=== PATIENT | female | born 1990 | race Caucasian/White ===

== ENCOUNTER 2020-12-31 19:23 | Emergency (ER) | payer MEDICAID, SELFPAY ==
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
[2020-12-31 19:33] VITALS: BP 110/63; PULSE 92; RESP 16; TEMP 37; O2SAT 99
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
== END 2020-12-31 20:20 | disposition home or self-care (01) ==
PROVIDERS: Emergency Provider Nurse Practitioner
DX: S93.402A Sprain of unspecified ligament of left ankle, initial encounter (principal); S96.912A Strain of unspecified muscle and tendon at ankle and foot level, left foot, initial encounter; V86.95XA Unspecified occupant of 3- or 4- wheeled all-terrain vehicle (ATV) injured in nontraffic accident, initial encounter; Z86.14 Personal history of Methicillin resistant Staphylococcus aureus infection
CPT/HCPCS: 73610; 73630; 99203; G0463

== ENCOUNTER 2021-12-26 17:50 | Emergency (ER) | payer OTHER, SELFPAY ==
[2021-12-26 17:59] VITALS: BP 126/61; PULSE 116; RESP 16; TEMP 36.6; O2SAT 97
--- NOTE | 2021-12-26 18:07 | ED.GENADULT ---
HPI - General Adult General Chief complaint: Unspecified Stated complaint: siunus infection Time Seen by Provider: 12/26/21 17:51 History of Present Illness HPI narrative: 31-year-old female history of folliculitis and MRSA infection presents the emergency room complaining of nasal pain. Patient states that she has been experiencing pus like drainage from her left nare for 3 weeks. States that she feels a lump in her nostril. Denies fevers Related Data Allergies Allergy/AdvReac Type Severity Reaction Status Date / Time azithromycin AdvReac Nausea Verified 12/26/21 18:02 Review of Systems Review of Systems: CONSTITUTIONAL: Denies fever, chills, or sweats. EYES: Denies visual changes, redness, or discharge. ENT: Denies rhinorrhea, congestion, sore throat, or otalgia. CARDIOVASCULAR: Denies chest pain, palpitations, or edema. RESPIRATORY: Denies cough or dyspnea. GASTROINTESTINAL: Denies abdominal pain, nausea, vomiting, or diarrhea. GENITOURINARY: Denies dysuria or hematuria. SKIN: Denies rash or itching. MUSCULOSKELETAL: Denies back pain, joint pain, or myalgia. NEUROLOGIC: Denies headache, numbness, dizziness, or weakness. PSYCHIATRIC: Denies anxiety or depression. Exam Narrative: GENERAL: Well-appearing, well-nourished, no physical limitations, and in no acute distress. HEAD: Normocephalic, atraumatic. EYES: Conjunctivae normal, PERRLA and EOMI. ENT: Pustule with circumferential erythema to the lateral wall of the left nare CHEST: Clear to auscultation. No respiratory distress. No wheezes rales or rhonchi. No tenderness. HEART: Regular rate and rhythm. No murmur heard. Normal peripheral pulses. EXTREMITIES: Normal range of motion. No edema. No clubbing or cyanosis SKIN: Warm, dry, no rash. No noted wounds NEURO: No focal deficits. Alert and oriented x3. MAEW. CN's II-XI intact bilaterally, normal gait PSYCH: Cooperative. Normal mood and affect. Course Vital Signs Vital signs: Vital Signs Temperature 36.6 C 12/26/21 17:59 Pulse Rate 116 H 12/26/21 17:59 Respiratory Rate 16 12/26/21 17:59 Blood Pressure 126/61 12/26/21 17:59 Pulse Oximetry 97 0921/22 17:59 Oxygen Delivery Room Air 12/26/21 17:59 Temperature 36.6 C 12/26/21 17:59 Pulse Rate 116 H 12/26/21 17:59 Respiratory Rate 16 12/26/21 17:59 Blood Pressure 126/61 12/26/21 17:59 Pulse Oximetry 97 12/26/21 17:59 Oxygen Delivery Room Air 12/26/21 17:59 Medical Decision Making Vital Signs Vital Signs: Vital Signs Temperature 36.6 C 12/26/21 17:59 Pulse Rate 116 H 12/26/21 17:59 Respiratory Rate 16 12/26/21 17:59 Blood Pressure 126/61 12/26/21 17:59 Pulse Oximetry 97 12/26/21 17:59 Oxygen Delivery Room Air 12/26/21 17:59 Temperature 36.6 C 12/26/21 17:59 Pulse Rate 116 H 12/26/21 17:59 Respiratory Rate 16 12/26/21 17:59 Blood Pressure 126/61 12/26/21 17:59 Pulse Oximetry 97 12/26/21 17:59 Oxygen Delivery Room Air 12/26/21 17:59 Discharge Plan Discharge Clinical Impression: Folliculitis Patient Disposition: Home, Self-Care Condition: Stable Instructions: Antibiotic Form, Folliculitis (ED) Prescriptions: New mupirocin 2 % ointment 1 applic topical TID 10 Days Qty: 15 0RF mupirocin 2 % ointment 1 applic topical BID 10 Days Qty: 15 0RF No Action ketorolac 10 mg tablet 10 mg PO Q6H PRN (Reason: pain) 5 Days Qty: 20 0RF Follow-up/Referrals: UNKNOWN,DOCTOR [Primary Care Provider] - Time of Disposition: 17:59
== END 2021-12-26 18:27 | disposition home or self-care (01) ==
LOC: ANHED 18:16
PROVIDERS: Emergency Provider Nurse Practitioner Family
DX: L73.9 Follicular disorder, unspecified (principal); Z86.14 Personal history of Methicillin resistant Staphylococcus aureus infection
CPT/HCPCS: 99281

== ENCOUNTER 2022-01-23 16:57 | Emergency (ER) | payer OTHER, SELFPAY ==
--- NOTE | 2022-01-23 18:10 | PC.NURSE ---
Railroad Commissioner contacted [place] [employer] and informed them of patient's departure from the ER with an 18 gauge IV to her left AC. Per officer they will do a wellness check to have the IV removed.
--- NOTE | 2022-01-23 18:29 | PC.NURSE ---
[facility] police department returned phone call informing RN that patient does not live at the address listed in patient's medical record. Rotary Dump Operator contacted [place] police department and requested they do a well check at the [place] address registered with her insurance. Per dispatcher they will send someone over to the address.
--- NOTE | 2022-01-23 19:55 | PC.NURSE ---
[place] PD RETURNED PRIOR PHONE CALL. [employer] DISPATCHER SAID [facility] WENT TO ADDRESS GIVEN, BUT WAS UNABLE TO MAKE CONTACT WITH THIS PT.
== END 2022-01-23 18:10 | disposition left against medical advice (07) ==
DX: Z53.21 Procedure and treatment not carried out due to patient leaving prior to being seen by health care provider (principal)
CPT/HCPCS: 99199

== ENCOUNTER 2022-04-14 14:34 | Emergency (ER) | payer OTHER, SELFPAY ==
[2022-04-14 14:35] VITALS: BP 114/70; PULSE 120; RESP 18; TEMP 36.7; O2SAT 100
--- NOTE | 2022-04-14 14:41 | ECG_ITS ---
Measurements Intervals [place] Rate: 114 P: 72 NE: 112 QRS: 77 QRSD: 86 T: 37 QT: 315 QTc: 434 Interpretive Statements SINUS TACHYCARDIA WITH SHORT NE INTERVAL RSR' IN V1 OR V2, PROBABLY NORMAL VARIANT ABNORMAL ECG NO PREVIOUS ECG AVAILABLE FOR COMPARISON Electronically Signed On 04-14-2022 15:13:49 SOLE SKIVER by Law Sims D.O.
--- NOTE | 2022-04-14 16:00 | PC.NURSE ---
pt called multiple times to be placed in room and not in waiting room or restroom.
== END 2022-04-15 03:23 | disposition left against medical advice (07) ==
PROVIDERS: Emergency Provider Emergency Medicine
DX: R07.9 Chest pain, unspecified (principal)
CPT/HCPCS: 93005; 99199

== ENCOUNTER 2022-04-27 12:44 | Emergency (ER) | payer OTHER, SELFPAY ==
--- NOTE | ~2022-04-27 | XR_ITS ---
EXAMINATION: XR chest 2V DATE: 04/27/2022 13:12 INDICATION: Left upper chest pain. TECHNIQUE: Frontal and lateral views of the chest were obtained. COMPARISON: None. FINDINGS: The chest demonstrates clear lungs without pneumonia, pleural effusion, or pneumothorax. Th e heart size is normal. IMPRESSION: 1. No acute cardiopulmonary disease. Reviewed, dictated and finalized at location A. [address] [facility]
--- NOTE | 2022-04-27 12:44 | ECG_ITS ---
Measurements Intervals [place] Rate: 116 P: 73 FL: 108 QRS: 74 QRSD: 94 T: 43 QT: 296 QTc: 411 Interpretive Statements SINUS TACHYCARDIA WITH SHORT FL INTERVAL POSSIBLE LEFT ATRIAL ENLARGEMENT INCOMPLETE RIGHT BUNDLE BRANCH BLOCK DELAYED PRECORDIAL R/S TRANSITION BASELINE ARTIFACT- I, III, AVL ABNORMAL ECG COMPARED TO ECG 04/14/2022 14:46:42 NO SIGNIFICANT CHANGES Electronically Signed On 04-28-2022 14:02:45 ADVERTISING DESIGNER by Law Sims D.O.
[2022-04-27 12:53] VITALS: BP 127/95; PULSE 118; RESP 18; TEMP 36.7; O2SAT 100
[2022-04-27 13:07] LABS: Basophils Absolute Auto 0.1 K/mm3 (0.0-0.1); Eosinophils Absolute Auto 0.1 K/mm3 (0-0.3); Eosinophils Percent Auto 0.5 % (0-4.4); Hematocrit 41.8 % (37.0-47.0); Hemoglobin 13.9 g/dL (12.0-15.0); Immature Granulocyte Absolute 0.07 K/mm3 (0.00-0.031); Immature Granulocyte Percent A 0.6 % (0-0.5); Lymphocytes Absolute Auto 1.66 K/mm3 (0.9-3.2); Lymphocytes Percent Auto 14.4 % (18.3-44.2); Mean Corpuscular HGB Conc 33.3 g/dl (32-36); Mean Corpuscular Hemoglobin 31.2 pg (26-34); Mean Corpuscular Volume 93.9 fl (80-100); Mean Platelet Volume 8.9 fl (7.4-10.4); Monocytes Absolute Auto 0.7 K/mm3 (0.1-0.6); Monocytes Percent Auto 6.2 % (2.6-8.5); Neutrophils Absolute Auto 8.9 K/mm3 (1.3-6.7); Neutrophils Percent Auto 77.3 % (45.5-73.1); Platelet Count Result 395 k/mm3 (150-375); Red Blood Count 4.45 M/mm3 (4.2-5.4); Red Cell Distribution Width 12.2 % (11.5-14.5); White Blood Count 11.5 K/mm3 (4.5-10.0)
[2022-04-27 13:18] LABS: Alanine Aminotransferase 39 U/L (6-35); Albumin Level 4.6 g/dL (3.5-5.1); Alkaline Phosphatase 74 U/L (38-126); Anion Gap 5 mmol/L (8-16); Aspartate Amino Transferase 29 U/L (14-36); Bilirubin,Total 0.4 mg/dL (0.2-1.3); Blood Urea Nitrogen 10 mg/dL (7-17); Calcium 9.1 mg/dL (8.4-10.2); Carbon Dioxide 31 mmol/L (22-30); Chloride 98 mmol/L (98-107); Estimated Glomerular Filt Rate > 60; Glucose 83 mg/dL (65-110); Lipase 27 U/L (23-300); Potassium 4.5 mmol/L (3.4-5.0); Sodium 134 mmol/L (137-145)
[2022-04-27 13:29] LABS: Troponin I < 0.012 ng/mL (0.000-0.034)
[2022-04-27 13:43] LABS: Prothrombin Time 12.5 Seconds (11.1-14.7)
[2022-04-27 13:45] LABS: Partial Thromboplastin Time 22.7 SECONDS (22.3-36.8)
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
[2022-04-27] MEDS: SODIUM CHLORIDE 0.9% IV 1,000 ML 999 ML IV CONT (15:13)
[2022-04-27] MEDS: KETOROLAC 15 MG/ML VIAL (*BKC) IV PUSH (15:13)
[2022-04-27 15:14] VITALS: PULSE 112
[2022-04-27] MEDS: AMOXICILLIN 500 MG CAPSULE PO (15:22)
--- NOTE | 2022-04-27 15:30 | PC.NURSE ---
called lab to add on the d-dimer that was ordered @ [id number]
[2022-04-27 15:33] VITALS: BP 120/83; PULSE 108; RESP 18; O2SAT 99
--- NOTE | 2022-04-27 16:45 | PC.NURSE ---
Lab called about patient's D-Dimer Test results at this time, lab reports that they are running the test at this time.
[2022-04-27 17:04] LABS: D Dimer 0.48 ug/mL (<0.48)
== END 2022-04-27 17:27 ==
PROVIDERS: Emergency Medicine; Emergency Provider Emergency Medicine
DX: R07.89 Other chest pain (principal); R00.0 Tachycardia, unspecified; I45.10 Unspecified right bundle-branch block; R94.31 Abnormal electrocardiogram [ECG] [EKG]
CPT/HCPCS: 36415; 71046; 80053; 83690; 84484; 85025; 85380; 85610; 85730; 93005; 96361; 96374; 99284; A9270; J1885; J7030

== ENCOUNTER 2022-12-17 14:33 | Inpatient (IN) | payer OTHER, SELFPAY ==
--- NOTE | ~2022-12-17 | US_ITS ---
EXAMINATION: US biopsy lymph node DATE: 12/18/2022 10:06 INDICATION: Right axillary lymphadenopathy. TECHNIQUE: The procedure including the risks, benefits, and alternatives was discussed with the patie nt. Risks discussed included bleeding and infection. The patient understood the risks and agreed to p roceed. The skin overlying the right axilla was prepped and draped in usual sterile fashion. Anesthe tic was administered with 1% lidocaine subcutaneously. An 18 gauge core biopsy needle was then used to obtain 6 core biopsy specimens under continuous sonographic guidance. The entry site was cleaned a nd dressed. There were no immediate complications. FINDINGS: Ultrasound images demonstrate the needle in a 4.6 x 2.2 cm node in right axilla. IMPRESSION: 1. Ultrasound-guided core needle biopsy of an enlarged right axillary lymph node. Reviewed, dictated and finalized at location A. IMPRESSION: 1. Ultrasound-guided core needle biopsy of an enlarged right axillary lymph nod e.
--- NOTE | ~2022-12-17 | CT_ITS ---
EXAMINATION: CT chest abdomen pelvis w con DATE: 12/17/2022 20:52 INDICATION: diffuse lympadenopathy, ab pain, SOB . TECHNIQUE: Computed tomography (CT) of the chest, abdomen, and pelvis was performed with 100 mL Omnip aque-350 intravenous contrast. Automated exposure control and iterative reconstruction technique were employed. The dose-length product was 386.04 mGy-cm. COMPARISON: None FINDINGS: CHEST: Thoracic aorta: No significant dilation or calcification. Lung parenchyma and airways: Lungs and airways are clear. Thoracic inlet, axillae and chest wall: No thyroid or soft tissue mass. Severe submental lower anteri or cervical supraclavicular and subpectoral and bilateral axillary lymphadenopathy. Mediastinum: Enlarged left hilar lymph node. Heart and pericardium: Normal heart size. No pericardial effusion. Coronary artery calcifications: Absent. Pleura: No effusion or mass. Thoracic bones: No acute osseous finding in the chest. ABDOMEN/PELVIS: Liver: Enlarged. No mass. Enlarged perihepatic lymph nodes, which may extend from the retroperitoneal space. Biliary/Gallbladder: Gallbladder is contracted. No bile duct dilation. Pancreas: No mass or duct dilation. Spleen: Enlarged. No mass. Adrenals:No mass. Kidneys: No suspicious mass, obstructing stone, or hydronephrosis. GI tract: Moderate distal esophageal and gastric wall edema. No small or large bowel dilation. Normal appendix. Mesentery/Peritoneum: No ascites, mass, or free air. Retroperitoneum: Large retroperitoneal mass encasing the abdominal aorta and its major branches, like ly a conglomerate ayad mass. Pelvis: Pelvic organs are within normal limits. Small volume free pelvic fluid, within physiologic ra nge. Marked bilateral pelvic lymphadenopathy. Soft Tissues: Marked bilateral inguinal lymphadenopathy. Abdominopelvic bones: No acute osseous finding in the abdomen/pelvis. IMPRESSION: Severe lymphadenopathy involving the lower neck, bilateral axilla and subpectoral regions, left hilum , retroperitoneal space, bilateral pelvic chains, and bilateral inguinal ayad groups, concerning for lymphoma. Recommend oncology and/or other subspecialty consultation as appropriate. Marked hepatosplenomegaly. Moderate esophagitis/gastritis. Reviewed, dictated and finalized at location K. IMPRESSION: Severe lymphadenopathy involving the lower neck, bilateral axilla and subpector al regions, left hilum, retroperitoneal space, bilateral pelvic chains, and aarti ateral inguinal ayad groups, concerning for lymphoma. Recommend oncology and/o r other subspecialty consultation as appropriate. Marked hepatosplenomegaly. Moderate esophagitis/gastritis.
--- NOTE | ~2022-12-17 | CT_ITS ---
EXAMINATION: CT brain wo con DATE: 12/17/2022 20:52 INDICATION: AMS, seizures? . TECHNIQUE: Computed tomography (CT) of the head was performed without intravenous contrast. The mA wa s adjusted according to patient size. Iterative reconstruction technique was employed. The dose-lengt h product was 605.33 mGy-cm. COMPARISON: None. FINDINGS: No acute intracranial hemorrhage or extra-axial fluid collection. No hydrocephalus, mass, or herniation. No acute ischemic infarct. Unremarkable dural venous sinus attenuation. No acute osseous abnormality. The aerated spaces are clear. IMPRESSION: No acute intracranial process. Reviewed, dictated and finalized at location K.
[2022-12-17 14:54] VITALS: BP 131/92; PULSE 108; RESP 18; TEMP 36.8; O2SAT 100
--- NOTE | 2022-12-17 15:04 | ECG_ITS ---
Measurements Intervals [place] Rate: 94 P: 58 NM: 117 QRS: 47 QRSD: 86 T: 33 QT: 330 QTc: 414 Interpretive Statements SINUS RHYTHM WITH SHORT NM INTERVAL INCOMPLETE RIGHT BUNDLE BRANCH BLOCK BORDERLINE ECG COMPARED TO ECG 04/27/2022 12:54:36 SINUS RHYTHM NOW PRESENT Electronically Signed On 12-17-2022 16:06:49 CDT by Law Sims D.O.
[2022-12-17 15:33] LABS: Hematocrit 36.8 % (37.0-47.0); Hemoglobin 11.6 g/dL (12.0-15.0); Mean Corpuscular HGB Conc 31.5 g/dl (32-36); Mean Corpuscular Hemoglobin 29.1 pg (26-34); Mean Corpuscular Volume 92.5 fl (80-100); Mean Platelet Volume 9.1 fl (7.4-10.4); Platelet Count Result 252 k/mm3 (150-375); Red Blood Count 3.98 M/mm3 (4.2-5.4); Red Cell Distribution Width 13.8 % (11.5-14.5); White Blood Count 22.8 K/mm3 (4.5-10.0)
[2022-12-17 15:56] LABS: Band Neutrophils Percent 2 % (0-6); Eosinophils Absolute Manual 0.22 K/mm3 (0.02-0.5); Eosinophils Percent Manual 1 % (0-4); Hypochromasia 1+ (NORMAL); Lymphocytes Absolute Manual 15.96 K/mm3 (1.1-4.5); Monocytes Absolute Manual 0.68 K/mm3 (0.1-0.90); Monocytes Percent Manual 3 % (3-9); Neutrophils Absolute Manual 5.92 K/mm3 (1.7-7.2); Neutrophils Percent Manual 24 % (46-73); Platelet Estimate Adequate (Adequate); Schistocytes None Seen (NORMAL); Total Cells Counted 100
[2022-12-17 16:06] LABS: Alanine Aminotransferase 29 U/L (6-35); Albumin Level 3.9 g/dL (3.5-5.1); Alkaline Phosphatase 97 U/L (38-126); Anion Gap 4 mmol/L (8-16); Aspartate Amino Transferase 30 U/L (14-36); Bilirubin,Total 0.3 mg/dL (0.2-1.3); Blood Urea Nitrogen 10 mg/dL (7-17); Calcium 8.9 mg/dL (8.4-10.2); Carbon Dioxide 31 mmol/L (22-30); Chloride 103 mmol/L (98-107); Estimated CRCL calculation 87 ml/min; Estimated Glomerular Filt Rate > 60; Glucose 70 mg/dL (65-110); Lipase 85 U/L (23-300); Potassium 3.9 mmol/L (3.4-5.0); Sodium 138 mmol/L (137-145)
[2022-12-17 18:17] LABS: Appearance Urine Clear (Clear); Bilirubin Urine Negative (Negative); Blood Urine Negative (Negative); Color Urine Yellow (Yellow); Glucose Urine UA Negative (Negative); Ketones Urine Negative (Negative); Leukocyte Esterase Ur Negative LEU/UL (Negative); Nitrate Urine Negative (Negative); Protein Urine Negative (Negative); Specific Grav Ur 1.016 (1.001-1.035); Urobilinogen Urine 0.2 mg/dL (<2.0)
[2022-12-17 18:22] LABS: Add Urine Microscopic? NO
--- NOTE | 2022-12-17 19:23 | ED.RECABL ---
HPI - Recheck/Abnormal Lab/Rx General Chief Complaint: Recheck/Abnormal Lab/Rx Stated Complaint: abnormal labs Time Seen by Provider: 12/17/22 18:29 History of Present Illness HPI narrative: Patient is a 32-year-old female with a history of polysubstance use disorder presenting with lymphadenopathy. Patient states that she was told approximately 6 months ago that she might have lymphoma based on blood work. States that she was advised to be admitted to the hospital but she was too scared so she went home. Since that time she has had intermittent severe abdominal pain as well as chest pain and shortness of breath. States that she has had increasingly worse swelling of all of her lymph nodes. States that they are swollen in her neck, her armpits, her groin. States that she continues to have intermittent vomiting and poor p.o. intake. No fevers or chills. States that she no longer uses illicit drugs. Related Data Allergies Allergy/AdvReac Type Severity Reaction Status Date / Time azithromycin AdvReac Nausea Verified 04/27/22 15:12 codeine AdvReac Vomiting Verified 04/27/22 15:12 Review of Systems Review of Systems: All systems reviewed & are unremarkable except as noted in HPI and below PMFSH Past Medical History Medical History Anxiety Atypical bipolar disorder Drug-induced psychotic disorder Ectopic History of heroin use Methamphetamine abuse, episodic MRSA infection buttock and leg during last lengthy incarceration (2020) Surgical History Surgical History History of breast surgery 2018 or 2019, 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 L Side. History of salpingo-oophorectomy Social History Social History Social History: Currently living with boyfriend. Full Code. Surrogate decision maker - Isaiah Beverly (step-dad), if unavailable then Marlene Carbone (mom). Smoking packs per day: 1 Smoking cigarettes per day: 20.0 Years smoked: 11 Smoking pack-years: 11.00 Smoking status: Current every day smoker Tobacco type: cigarettes Alcohol intake: current Alcohol use details: social Substance use: former Substance use type: marijuana, heroin and amphetamines Last use: last use of heroin-September 2014 Lack of Transportation: No Lack of Food: Never True Current Housing: I Have Housing Concerned About Future Housing: No Difficulty Paying Gas/Electric Bills: No Difficulty Paying for Meds: No Currently Unemployed: No Education: High School Diploma/GED Difficulty w/ Childcare or Family Care: No Living arrangements: other Additional living arrangements comments: boyfriend Spiritual care concerns: Yes Exam Narrative: GENERAL: Nontoxic, no acute distress, diffuse bulky lymphadenopathy, pale HEAD: Normocephalic, atraumatic. EYES: PERRLA and EOMI. ENT: Mucous membranes moist. NECK: Supple. bulky lymphadenopathy anterior and posterior cervical chains CHEST: Clear to auscultation. No respiratory distress. HEART: Tachycardic, regular rhythm ABDOMEN: Soft, nontender, nondistended; + lymphadenopathy bilateral inguinal areas EXTREMITIES: Normal range of motion. No edema. SKIN: Warm, dry, no rash. NEURO: No focal deficits. Alert and oriented x3. PSYCH: Normal mood and affect. Course Vital Signs Vital signs: Vital Signs Temperature 98.2 F 12/17/22 14:54 Pulse Rate 108 H 12/17/22 14:54 Respiratory Rate 18 12/17/22 14:54 Blood Pressure 131/92 H 12/17/22 14:54 Pulse Oximetry 100 12/17/22 14:54 Oxygen Delivery Room Air 12/17/22 14:54 Temperature 98.4 F 12/18/22 14:00 Pulse Rate 89 12/18/22 14:00 Respiratory Rate 14 12/18/22 14:00 Blood Pressure 113/94 H 12/18/22 14:00 Pulse Oximetry 99 12/18/22 14:00 Oxygen Delivery Room Air 12/18/22 08:00
[2022-12-17 19:39] VITALS: BP 119/74; PULSE 98; O2SAT 99
[2022-12-17 20:26] LABS: Influenza A QL RT-PCR Negative (Negative); Influenza B QL RT-PCR Negative (Negative); SARS-CoV-2 RNA PCR Negative (Negative)
[2022-12-17] MEDS: SODIUM CHLORIDE 0.9% IV 1,000 ML 999 ML IV CONT (20:33)
[2022-12-17 21:49] VITALS: BP 113/71; PULSE 92; RESP 18; O2SAT 100
[2022-12-17 22:19] LABS: Lactate Dehydrogenase 143 U/L (120-246)
[2022-12-17] MEDS: ONDANSETRON INJ 4 MG/2 ML VIAL IV PUSH (22:20)
[2022-12-17] MEDS: MORPHINE SULFATE (*CRX) 4 MG/ML INJ IV PUSH (22:21)
[2022-12-17] MEDS: KETOROLAC 30 MG/ML VIAL (*BKC) IV PUSH (22:23)
[2022-12-17 23:00] LABS: HIV 1/2 Ab P24 Ag Result Negative (Negative)
--- NOTE | 2022-12-17 23:08 | PM.IMHP ---
H&P: HPI History of Present Illness Date/Time: 12/17/22 23:08 Chief Complaint: Abdominal Pain Narrative: 32 y/o F presents here with lymph node swelling, abdominal pain, chest pain, sob, MEDRANO, and poor PO intake with PMH of substance abuse. Patient reports abnormal workup done by a Regional 6 months ago when she presented there with nausea, vomiting, and abdominal pain. Lab work was concerning for lymphoma. Advised at that time he to continue workup inpatient. Patient was afraid, did not want to continue workup, and went home. Since then, symptoms have been increasing in frequency and swelling to lymph nodes has started/worsened. Swelling in lymph nodes is currently in neck, head, axillas, abdomen and groin bilaterally throughout. R axilla swelling the largest area. Abdominal pain, chest pain, and sob episodes x3 today for a total of 5 in the last week. Resolved without intervention. She reports 6 episodes of confusion and aggression over the last 6 months as well with the most recent episode in the last week. Also reports hx of heroin use (last use in 2015) and current/intermittent use of meth (started when she was 19). Most recent meth use was 3 weeks ago and used for pain control per patient. Does not see a therapist or take medications. 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 L Side. History of salpingo-oophorectomy Social History Social History (Updated 12/17/22 @ 23:34 by Kacey Zuluaga APRN) Social History: Currently living with boyfriend. Full Code. Surrogate decision maker - Isaiah Beverly (step-dad), if unavailable then Marlene Carbone (mom). Smoking packs per day: 1 Smoking cigarettes per day: 20.0 Years smoked: 11 Smoking pack-years: 11.00 Smoking status: Current every day smoker Tobacco type: cigarettes Alcohol intake: current Alcohol use details: social Substance use: current Substance use type: marijuana and methamphetamine Last use: last use of meth 3 weeks ago and last heroin use in 2016 (as of 12/17/22). Living arrangements: other Additional living arrangements comments: boyfriend Meds Home Medications and Allergies Home Medications Medication Instructions Recorded Confirmed Type amoxicillin 500 mg tablet 500 mg PO Q8H #20 tabs 04/27/22 Rx Allergies Allergy/AdvReac Type Severity Reaction Status Date / Time azithromycin AdvReac Nausea Verified 04/27/22 15:12 codeine AdvReac Vomiting Verified 04/27/22 15:12 Vital Signs Vital Signs - 24 hr 12/17/22 14:54 12/17/22 19:39 12/17/22 21:49 Temperature 98.2 F Pulse Rate 108 H 98 92 Respiratory Rate 18 18 Blood Pressure 131/92 H 119/74 113/71 Pulse Oximetry 100 99 100 Oxygen Delivery Room Air Exam Const: General: comfortable and no acute distress HENMT: Face/Nose/Sinus: Normal nares present Mouth: Yes moist mucous membranes Eyes: General: appearance normal, both eyes and all related structures Sclera: sclerae normal Pupils: Equal, round and reactive pupils present EOM: EOMs intact bilaterally Neck: Lymphatic: lymphadenopathy Other: diffuse lymphadenopathy. greatest at R superficial cervical chain, submental, and L tonsillar/submandibular. Chest: Other: R axilla node swelling - approx 6x4 cm. Resp: Effort & Inspection: normal respiratory effort Auscultation: clear to auscultation bilaterally Cardio: Rate: reg
[2022-12-17 23:22] VITALS: BP 109/88; PULSE 90; RESP 18; O2SAT 98
[2022-12-17 23:31] VITALS: BP 109/88; PULSE 90; RESP 18; O2SAT 98
[2022-12-18] VITALS: BP 105/73; PULSE 85; RESP 18; TEMP 36.9; O2SAT 100
--- NOTE | 2022-12-18 00:07 | ADMGEN ---
This patient, Soha Marrero, was admitted to 3 [facility] Surg Room 313-01. Patient/family oriented to hospital policies and general routines including ID bracelet, bed and alarms, visiting hours, pain management, procedures, bathroom and other care routines, personal items, smoking policy, room service/diet, and visiting hours. Information on how to activate the Rapid Response Team has been discussed. Patient/Family are encouraged to report perceived risks to care and to ask questions if they do not understand what they are told or what they should do.
[2022-12-18 05:41] VITALS: BP 97/71; PULSE 92; RESP 18; TEMP 36.4; O2SAT 99
[2022-12-18] MEDS: ONDANSETRON INJ 4 MG/2 ML VIAL IV PUSH ×3 (05:49→12:51)
[2022-12-18] MEDS: MORPHINE SULFATE (*CRX) 4 MG/ML INJ IV PUSH ×4 (05:50→13:40)
--- NOTE | 2022-12-18 07:57 | PDONCCN ---
[facility] - Date of Consult Date/Time: 12/18/22 07:57 Requesting Physician: Gabriela Mackey MD Primary Care Provider: UNKNOWN,DOCTOR - Consult Narrative Reason for consult: Generalized lymphadenopathy Narrative: Soha Marrero is a 32 year old female with history of substance abuse and bipolar disorder initially presented to the [facility] with nausea vomiting and found to have abnormal labs. She left hospital at that time against medical advise. Patient now came into the hospital with complain of generalized worsening of lymphadenopathy started about 6 months ago especially under the right axilla along with generalized achiness tiredness fatigue chest discomfort and abdominal pain. She has lost 45 lb weight since 2020 but gained 25 lb weight back. she has significant hot flashes and night sweats. CT chest abdomen and pelvis were performed that showed marked hepatosplenomegaly and lymphadenopathy involving the lower neck, bilateral axilla subpectoral region left hilum retroperitoneal space mitral lateral pelvic chain and bilateral inguinal lymph node. CT head was also performed due to confusion that showed no intracranial process. Labs showed elevated WBC count of 22,000 with normal platelet and mild anemia. 70% of WBCs were lymphocytes and 24% was neutrophils. LDH was normal. 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 L Side. History of salpingo-oophorectomy - Social History Social History: Social History (Last Updated 12/17/22 @ 23:34 by Kacey Zuluaga APRN) Alcohol Use: Alcohol intake: current Alcohol use details: social Substance Use: Substance use: former Substance use type: marijuana Substance use type: heroin Substance use type: amphetamines Last use: last use of heroin-September 2014 Others: Spiritual care concerns: Yes Living Arrangements: Living arrangements: other Smoking Status: Smoking status: Current every day smoker Tobacco type: cigarettes Smoking Pack-years: Smoking packs per day: 1 Smoking cigarettes per day: 20 Years smoked: 11 Smoking pack-years: 11.00 Social Determinants of Health: Has the Lack of Transportation Kept You From Medical Appointments or From Getting Medications?: No Within the Past 12 Months, Were You Worried Whether Your Food Would Run Out Before You Got Money to Buy More?: Never True What is Your Housing Situation Today?: I Have Housing Are You Worried That in the Next 2 Months, You May Not Have Your Own Housing to Live In?: No Do You Have Trouble Paying Your Heating Or Electricity Bill?: No Do You Have Trouble Paying For Medicines?: No Are You Currently Unemployed and Looking for Work?: No Highest Level of Education Completed: High School Diploma/GED Do You Have Trouble With Childcare or the Care of a Family Member?: No Exam - Vital Signs Vital Signs - 24 hr 12/17/22 14:54 12/17/22 19:39 12/17/22 21:49 Temperature 36.8 C Pulse Rate 108 H 98 92 Respiratory Rate 18 18 Blood Pressure 131/92 H 119/74 113/71 Pulse Oximetry 100 99 100 Oxygen Delivery Room Air 12/17/22 23:22 12/17/22 23:31 12/18/22 00:00 Temperature 36.9 C Pulse Rate 90 90 85 Respiratory Rate 18 18 18 Blood Pressure 109/88 109/88 105/73 Pulse Oximetry 98 98 100 Oxygen Delivery
[2022-12-18] MEDS: NICOTINE (*PBKC) 21 MG PATCH 1 PATCH TRANSDERM (08:51)
[2022-12-18 09:00] LABS: Basophils Absolute Auto 0.1 K/mm3 (0.0-0.1); Basophils Percent Auto 0.4 % (0.2-1.2); Eosinophils Absolute Auto 0.2 K/mm3 (0-0.3); Eosinophils Percent Auto 0.9 % (0-4.4); Hematocrit 38.1 % (37.0-47.0); Hemoglobin 11.9 g/dL (12.0-15.0); Immature Granulocyte Absolute 0.11 K/mm3 (0.00-0.031); Immature Granulocyte Percent A 0.4 % (0-0.5); Lymphocytes Absolute Auto 18.59 K/mm3 (0.9-3.2); Lymphocytes Percent Auto 74.7 % (18.3-44.2); Mean Corpuscular HGB Conc 31.2 g/dl (32-36); Mean Corpuscular Hemoglobin 28.9 pg (26-34); Mean Corpuscular Volume 92.5 fl (80-100); Mean Platelet Volume 9.1 fl (7.4-10.4); Neutrophils Absolute Auto 4.9 K/mm3 (1.3-6.7); Neutrophils Percent Auto 19.6 % (45.5-73.1); Nucleated Red Blood Cells Perc 0.1 % (0.0-0.2); Platelet Count Result 247 k/mm3 (150-375); Red Blood Count 4.12 M/mm3 (4.2-5.4); Red Cell Distribution Width 13.9 % (11.5-14.5); White Blood Count 24.9 K/mm3 (4.5-10.0)
[2022-12-18 09:12] LABS: Anion Gap 5 mmol/L (8-16); Blood Urea Nitrogen 14 mg/dL (7-17); Calcium 8.5 mg/dL (8.4-10.2); Carbon Dioxide 29 mmol/L (22-30); Chloride 103 mmol/L (98-107); Estimated CRCL calculation 77 ml/min; Estimated Glomerular Filt Rate > 60; Glucose 91 mg/dL (65-110); Sodium 137 mmol/L (137-145)
[2022-12-18 10:35] LABS: Atypical Lymphocytes Present; Schistocytes None Seen (NORMAL)
[2022-12-18 10:36] LABS: Large Platelets Present; Platelet Estimate Adequate (Adequate)
[2022-12-18 14:00] VITALS: BP 113/94; PULSE 89; RESP 14; TEMP 36.9; O2SAT 99
--- NOTE | 2022-12-18 14:12 | PM.DS ---
DS: Admitting Diagnosis Discharge Date 12/18/22 Admitting Diagnosis diffuse lymphadenopathy DS: Discharge Diagnosis Discharge Diagnosis (1) Lymphadenopathy: Code(s): R59.1 - Generalized enlarged lymph nodes Status: Acute (2) Abdominal pain: Code(s): R10.9 - Unspecified abdominal pain Status: Acute DS: Summary Hospital Course Hospital Course: This is a 32-year-old female with no significant past medical history other than having workup approximately 8 months ago due to abnormal labs. Lab work was concerning for lymphoma and patient was advised to continue this workup as an inpatient. Patient refused further workup and signed out AMA. Approximately 2 months after this encounter patient developed swelling in her lymph nodes in her neck, head, axilla, abdomen and inguinal area bilaterally throughout. She had also experience abdominal pain, chest pain, shortness a breath, fatigue, generalized discomfort. She has a history of heroin use, last use in 2015, as well as intermittent methamphetamine use with last use 3 weeks ago due to her pain. Due to her ongoing lymphadenopathy, fatigue and generalized discomfort she decided to be seen in the ED. lymph no biopsy performed and oncology was consulted. Oncology recommending 80 close follow-up in the office as an outpatient. Patient received lymph node biopsy and was highly educated on the importance of a close outpatient follow-up. Patient is stable and okay to discharge home with close follow-up with Oncology. Patient given pain medications due to ongoing generalized pain in hopes that she does not relapse on methamphetamine use. Patient does have good support system in her family and boyfriend. Time Spent with Patient Time attestation: Total time spent providing and/or coordinating discharge services: Exam Narrative: GENERAL: Comfortable, no acute distress HENMT: moist mucous membranes EYES: EOM intact b/l NECK: Diffuse lymphadenopathy in head, neck, bilateral axilla and inguinal lymph nodes RESPIRATORY: clear to auscultation CARDIO: RRR GI: soft, nontender, bowel sounds present SKIN: no rashes EXTREMITIES: no edema, redness or tenderness DS: Data Data Completed and Pending Pending studies at discharge: Pending at discharge 12/18/22 09:16 Surgical [PTH] Routine Labs on day of discharge: Labs from last 24 hours 12/18/22 12/17/22 12/17/22 08:56 21:51 19:45 WBC 24.9 H RBC 4.12 L Hgb 11.9 L Hct 38.1 MCV 92.5 MCH 28.9 MCHC 31.2 L RDW 13.9 Plt Count 247 MPV 9.1 Immature Gran % (Auto) 0.4 Neut % (Auto) 19.6 L Lymph % (Auto) 74.7 H [place] % (Auto) 4.0 Eos % (Auto) 0.9 Baso % (Auto) 0.4 Lymph # (Auto) 18.59 H [place] # (Auto) 1.0 H Eos # (Auto) 0.2 Baso # (Auto) 0.1 Abs Immat Gran (auto) 0.11 H Absolute Neuts (auto) 4.9 Absolute Nucleated RBC 0.0 Total Counted Neutrophils % (Manual) Band Neutrophils % Lymphocytes % (Manual) Monocytes % (Manual) Eosinophils % (Manual) Nucleated RBC % 0.1 Abs Neuts (Manual) Abs Lymphs (Manual) Abs Monocytes (Manual) Absolute Eos (Manual) Atypical Lymphocytes Present Platelet Estimate Adequate Large Platelets Present Hypochromasia Schistocytes None seen Sodium 137 Potassium 4.0 Chloride 103 Carbon Dioxide 29 Anion Gap 5 L BUN 14 Creatinine 0.80 Estim Creat Clear Calc 77 Estimated GFR > 60 Glucose 91 Calcium 8.5 Total Bilirubin AST ALT Alkaline Phosphatase Lactate Dehydrogenase 143 Total Protein Albumin Lipase Urine Color Urine Appearance Urine pH Ur Specific [place] Urine Protein Urine Glucose (UA) Urine Ketones Ur Blood (Man) Urine Nitrate Urine Bilirubin Urine Urobilinogen Leukocyte Esterase Rfl HIV 1&2 Ab/P24 Ag 4thGn Negative Influenza A (RT-PCR) Negative
--- NOTE | 2022-12-18 15:35 | PC.NURSE ---
patients IV out, meds transmitted to the [facility] in [facility] added to d/c meds. patient signed d/c papers, denies any questions. ambulated with boyfriend to private vehicle..
== END 2022-12-18 15:10 | disposition home or self-care (01) | DRG 681 ==
LOC: ANHED 18:43 → ANH3MEDSUR 22:48
PROVIDERS: Admitting Provider Internal Medicine; Emergency Provider Emergency Medicine; Visit Provider Internal Medicine Critical Care Medicine
DX: C82.84 Other types of follicular lymphoma, lymph nodes of axilla and upper limb (principal); F15.90 Other stimulant use, unspecified, uncomplicated; F17.210 Nicotine dependence, cigarettes, uncomplicated; R10.9 Unspecified abdominal pain; F31.9 Bipolar disorder, unspecified; F41.9 Anxiety disorder, unspecified; Z90.722 Acquired absence of ovaries, bilateral
CPT/HCPCS: 36415; 38505; 70450; 71260; 74177; 76942; 80048; 80053; 81003; 81025; 83615; 83690; 85025; 86703; 87040; 87636; 88108; 88184; 88185; 88305; 93005; 96361; 96374; 96375; 96376; 99285; A9270; G0378; G0379; G0432; J1885; J2270; J2405; J7030; Q9967

== ENCOUNTER 2023-01-03 01:31 | Day surgery (SDC) | payer OTHER, SELFPAY ==
[2022-12-30 15:12] VITALS: BMI 21.9
--- NOTE | 2022-12-30 15:17 | PC.NURSE ---
Addendum entered by Elizabeth Hobbs RN 01/01/23 08:52: PT TO ARRIVE AT 0900 ON 01/03/23 FOR SURGERY AT 1100. Addendum entered by Elizabeth Hobbs RN 12/30/22 15:39: PT TO ARRIVE AT 1130 ON 01/09/23 FOR SURGERY AT 1330. Original Note: Report to the Outpatient Waiting Room, entrance under the green pavilion located off [facility], at time 1030 on date 01/06/23. Planned Procedure Time: 1230. Time changes happen often and if your time is changed the preop area will call you the afternoon before. - You and your visitor will be asked to self-screen and do not enter if you have any COVID symptoms. - A mask is optional within the hospital at this time. Patients may have clear liquids (water, carbonated beverages, clear teas, apple juice) until 3 hours prior to surgery with a maximum of 20 ounces. - No food from midnight until time of surgery Take the following medications with a SIP of water the morning of surgery: PAIN PILL IF NEEDED DO NOT STOP ANY OF YOUR OTHER PRESCRIPTION MEDICATIONS PRIOR TO SURGERY ?EXCEPT THE FOLLOWING Medications to discontinue per physician: N/A Date to take last dose: N/A Please no make-up, nail uzbek, hairspray, perfume, deodorant, or body powder the day of surgery. No jewelry (including any body piercings) or valuables the day of surgery, leave them at home. Please take a shower or bath the night before, or the morning of, surgery with an antibacterial soap. Wear comfortable, loose fitting clothing. - Jewelry must be removed prior to entering the operating room. Rings and piercings that are not removed may be cut off. - The hospital will not accept responsibility for valuables. - Please leave all valuables, including medications, at home the day of surgery. If you are going home after surgery, a licensed city bus driver must drive you home. - NO public transportation without another adult if you receive anesthesia. - We recommend that an adult stay with you for 24 hours following discharge. - We also recommend that you do not drive, make important decision, drink alcoholic beverages, or take any drugs that were not prescribed by your health care provider for at least 24 hours after your discharge time. Follow any additional instructions given to you from your surgeon. If you or anyone in your household have experienced Covid symptoms in the past week, please notify your surgeon or the nurse liaison at the phone number below for possible testing. Telephone instructions given to LOLITA JAVIER and asked if any additional questions and then verbalized understanding. Patient advised to call surgeon office or pre surgery nurse liaison [phone] if any additional questions.
[2023-01-03] VITALS (10 sets, daily range): BP systolic 94–113; BP diastolic 50–73; PULSE 83–107; RESP 14–24; TEMP 37–37.1; O2SAT 94–100
--- NOTE | ~2023-01-03 | XR_ITS ---
EXAMINATION: XR chest port-a-cath/central DATE: 01/03/2023 13:21 INDICATION: Port placement. TECHNIQUE: A single frontal view of the chest was obtained. COMPARISON: Chest 2 views 04/27/2022, chest CT 12/17/2022 FINDINGS: There is no pneumonia, pleural effusion, or pneumothorax. The heart size is normal. There i s a left internal jugular port with tip at superior cavoatrial junction. IMPRESSION: 1. Port tip at superior cavoatrial junction. Reviewed, dictated and finalized at location E.
--- NOTE | ~2023-01-03 | XR_ITS ---
EXAMINATION: XR fl guide central line place DATE: 01/03/2023 12:53 INDICATION: Port catheter insertion TECHNIQUE: Single fluoroscopic image of the central chest was obtained during procedure performed by Dr. Kingston. Radiologist was not present for the imaging or procedure. The amount of fluoroscopy time us ed during this procedure was 0.3 minutes. COMPARISON: None. FINDINGS: Left internal jugular central venous catheter with distal tip at the superior cavoatrial ju nction. Visualized portion of the central lungs are clear. Heart size is normal. IMPRESSION: 1. Left internal jugular central venous catheter tip at the superior cavoatrial junction. Reviewed, dictated and finalized at location A.
--- NOTE | 2023-01-03 10:59 | WPDANESEPPF ---
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, inv.extra nodl Patient Data Age: 32 Gender: F Height: 1.63 m Weight: 58 kg Allergies Allergy/AdvReac Type Severity Reaction Status Date / Time azithromycin AdvReac Nausea Verified 01/01/23 08:51 codeine AdvReac Vomiting Verified 01/01/23 08:51 Home Medications Medication Instructions Recorded Confirmed Type hydrocodone 7.5 mg-acetaminophen 1 tablet PO Q4H PRN pain #60 tabs 12/18/22 01/01/23 Rx 325 mg tablet ondansetron HCl 4 mg tablet 4 mg PO Q8H PRN nausea and 12/18/22 01/01/23 Rx vomiting #60 tabs Patient hx anesthesia problems: none Family hx anesthesia problems: none Results Review: All pre-operative results and documents have been reviewed as part of the pre-operative evaluation. 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 L Side. History of salpingo-oophorectomy Social History Social History Social History: Currently living with boyfriend. Full Code. Surrogate decision maker - Isaiah Beverly (step-dad), if unavailable then Marlene Carbone (mom). Smoking packs per day: 1 Smoking cigarettes per day: 20.0 Years smoked: 11 Smoking pack-years: 11.00 Smoking status: Current every day smoker Tobacco type: cigarettes Alcohol intake: current Drinks per week: 1 Alcohol use details: social Substance use: former Substance use type: methamphetamine Other substance usage details: QUIT USING EARLY DEC 2022 D/T DIAGNOSIS & SURGERY Last use: last use of heroin-September 2014 Lack of Transportation: No Lack of Food: Never True Current Housing: I Have Housing Concerned About Future Housing: No Difficulty Paying Gas/Electric Bills: No Difficulty Paying for Meds: No Currently Unemployed: No Education: High School Diploma/GED Difficulty w/ Childcare or Family Care: No Living arrangements: with friend(s) Additional living arrangements comments: boyfriend Spiritual care concerns: No Anes - Eval Final PreProcedure Day of Procedure 01/03/23 10:59 Patient weight: normal Heart: regular rate and rhythm Lungs: clear to auscultation Airway: Mallampati scale class II Neurological: alert and oriented Last oral intake: >/= 8 hours ASA classification: III Emergent: no Anesthetic plan: proceed Anesthesia type and monitoring: general GIVS and standard monitoring Results Review: All pre-operative results and documents have been reviewed as part of the pre-operative evaluation. Informed Consent: The patient's anesthetic plan and its attendant risks and benefits were discussed with the patient/family/POA. Questions were solicited and answers provided to the satisfaction of the patient/family/POA.
[2023-01-03 11:10] LABS: Hematocrit 33.9 % (37.0-47.0); Hemoglobin 10.5 g/dL (12.0-15.0); Mean Corpuscular Hemoglobin 28.7 pg (26-34); Mean Corpuscular Volume 92.6 fl (80-100); Mean Platelet Volume 8.9 fl (7.4-10.4); Platelet Count Result 292 k/mm3 (150-375); Red Blood Count 3.66 M/mm3 (4.2-5.4); Red Cell Distribution Width 14.4 % (11.5-14.5); White Blood Count 20.6 K/mm3 (4.5-10.0)
[2023-01-03 11:22] LABS: Partial Thromboplastin Time 28.2 SECONDS (22.3-36.8)
[2023-01-03] MEDS: LACTATED RINGERS 1,000 ML 30 ML IV CONT ×2 (11:26→13:05)
--- NOTE | 2023-01-03 11:54 | PM.IMHP ---
H&P: HPI History of Present Illness Date/Time: 01/03/23 11:54 Chief Complaint: Lymphoma, needs portacatheter placed Narrative: Pt presents with recent dx of lymphoma. She is to start chemo tx in the near future. She has bulky LN in the right subclavian and right axillary region. No prior hx of port placment or central lines in the neck in the past. Review of Systems Review of Systems: The remainder of the review of systems to include constitutional, HEENT, cardiovascular, respiratory, GI, , integumentary, musculoskeletal, endocrine, immunologic, hematologic, psychiatric, and neurologic are all negative except for which is mentioned above in the HPI. 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 L Side. History of salpingo-oophorectomy Social History Social History Social History: Currently living with boyfriend. Full Code. Surrogate decision maker - Isaiah Beverly (step-dad), if unavailable then Marlene Carbone (mom). Smoking packs per day: 1 Smoking cigarettes per day: 20.0 Years smoked: 11 Smoking pack-years: 11.00 Smoking status: Current every day smoker Tobacco type: cigarettes Alcohol intake: current Drinks per week: 1 Alcohol use details: social Substance use: former Substance use type: methamphetamine Other substance usage details: QUIT USING EARLY DEC 2022 D/T DIAGNOSIS & SURGERY Last use: last use of heroin-September 2014 Lack of Transportation: No Lack of Food: Never True Current Housing: I Have Housing Concerned About Future Housing: No Difficulty Paying Gas/Electric Bills: No Difficulty Paying for Meds: No Currently Unemployed: No Education: High School Diploma/GED Difficulty w/ Childcare or Family Care: No Living arrangements: with friend(s) Additional living arrangements comments: boyfriend Spiritual care concerns: No Meds Home Medications and Allergies Home Medications Medication Instructions Recorded Confirmed Type hydrocodone 7.5 mg-acetaminophen 1 tablet PO Q4H PRN pain #60 tabs 12/18/22 01/03/23 Rx 325 mg tablet ondansetron HCl 4 mg tablet 4 mg PO Q8H PRN nausea and 12/18/22 01/01/23 Rx vomiting #60 tabs Allergies Allergy/AdvReac Type Severity Reaction Status Date / Time azithromycin AdvReac Nausea Verified 01/03/23 11:27 codeine AdvReac Vomiting Verified 01/03/23 11:27 Vital Signs Vital Signs - 24 hr 01/03/23 11:19 Temperature 37.1 C Pulse Rate 107 H Respiratory Rate 14 Blood Pressure 112/73 Pulse Oximetry 100 Oxygen Delivery Room Air Exam Const: General: comfortable and no acute distress Eyes: General: appearance normal, both eyes and all related structures Sclera: sclerae normal Pupils: Equal, round and reactive pupils present EOM: EOMs intact bilaterally Neck: Neck: supple Chest: Other: Palp LAD in the right axillary and right SC region. None in right IJ or left side of neck or left chest. Resp: Effort & Inspection: normal respiratory effort Auscultation: clear to auscultation bilaterally Cardio: Rate: regular rate Rhythm: regular rhythm GI: GI Palp: Yes Soft to palpation, No Firmness to palpation present (GI), No Tenderness to palpation present (GI), No Guarding due to palpation present (GI) and No Hernia present Neuro: Speech: normal speech Motor exam (neuro): 5/5 motor strength present throughout Sensory Exam: normal sensation Psych: Mental Status: mental status grossly normal
--- NOTE | 2023-01-03 12:02 | WPDHPUPDATE1 ---
History and Physical Update Update Date/Time: 01/03/23 12:02 History and Physical has been reviewed, including an updated exam of the patient. There are NO changes in the patient's condition. Risks, benefits, and alternatives have been discussed and questions answered. Patient agrees to proceed with procedure.
[2023-01-03 12:06] LABS: Atypical Lymphocytes Present; Band Neutrophils Percent 5 % (0-6); Basophils Absolute Manual 0.41 K/mm3 (0.0-0.1); Basophils Percent Manual 2 % (0-1); Lymphocytes Absolute Manual 12.56 K/mm3 (1.1-4.5); Monocytes Absolute Manual 0.82 K/mm3 (0.1-0.90); Monocytes Percent Manual 4 % (3-9); Neutrophils Absolute Manual 6.79 K/mm3 (1.7-7.2); Neutrophils Percent Manual 28 % (46-73); Platelet Estimate Adequate (Adequate); Schistocytes None Seen (NORMAL); Total Cells Counted 100
--- NOTE | 2023-01-03 12:06 | SUR.PREOP ---
dr pettit aware of elevated wbc. no orders at this time.
[2023-01-03] MEDS: ceFAZolin 2 GM/D5W 50 ML 2 GM/50 ML BAG IVPB (12:10)
[2023-01-03] MEDS: HEPARIN SODIUM 5,000 UNITS/ML VIAL 5000 UNITS IRRIGATION (12:40)
[2023-01-03] MEDS: HEPARIN SODIUM 1,000 UNITS/ML VIAL 1000 UNITS IV PUSH (12:41)
[2023-01-03] MEDS: LIDO 1%/EPINEPHRINE 1:100,000 20 ML VIAL INFILTRATE (12:48)
--- NOTE | 2023-01-03 13:07 | W.PM.PROC2 ---
Procedure Note - Detailed Date of Procedure 01/03/23 Pre-op Diagnosis cutaneous follicle center lymphoma, inv.extra nodl Post-op Diagnosis Same Procedure Performed Placement of left internal jugular vein single-lumen port a catheter with intraoperative fluoroscopy Surgeon Silvino Kingston MD [employer] Professional Virginia Liu [employer] Anesthesia General Indications Patient is a 32-year-old white female who was recently diagnosed with lymphoma. She is to undergo chemotherapy treatments. She presents now for placement of a marva catheter to initiate chemotherapy treatment. Findings None significant Description of Procedure After informed consent was obtained patient brought to the operating room where she was placed supine position and then LMA anesthesia was administered. The bilateral upper anterior neck and chest was then prepped and draped usual sterile fashion. A time-out was then performed correctly identifying the patient as well as procedure to be performed. She was given some perioperative IV antibiotics. With the patient head down Trendelenburg position I then used a long 18gauge spinal needle to cannulate the left internal jugular vein on the 1st pass without any difficulty. There was prompt return of dark venous appearing blood. A guidewire was then advanced through the needle into the left internal jugular vein assess way down into the superior vena cava. Intraoperative fluoroscopy was used to visualize the tip of the guidewire which was in the proper position. I then proceeded to create the left upper anterior chest subcutaneous port pocket. 1% lidocaine mixed with 0.5% Marcaine was then injected in the left upper anterior chest just below the medial 3rd of the left clavicle. A transverse incision was then made in this area the scalp wound and dissection carried down through the subcutaneous tissues to the anterior pectoralis fascia. Then with blunt finger electrocautery dissection I created a subcu port pocket at that level below the incision. I then tunneled the 9.6 Yi single-lumen catheter between the incision in the left anterior chest up to the insertion site of the guidewire and the left anterior lateral neck region. I then advanced a dilator and breakaway sheath over the guidewire. The guidewire and dilator were removed leaving the sheath in place. The 9.6 Yi catheter was advanced through the sheath into the left internal jugular vein and subsequently down into the right atrium of the heart. The sheath was then torn away leaving the catheter in place. Once again utilizing intraoperative fluoroscopy I visualized the tip of the catheter and then pulled back on the catheter until the tip was at the atriocaval junction. I then cut the catheter to the appropriate length at the skin level and attached to the Smart Port. The port was then secured the subcutaneous port pocket on 3 sides. This is an with 3-0 Prolene suture. The port was then accessed with a Worthy needle and it aspirated blood easily and was flushed with saline solution. I then proceeded to close incision on the left anterior chest region with interrupted 3-0 Vicryl sutures in the subcutaneous tissues. The skin edges were approximated utilizing a running subcuticular 4-0 Monocryl suture. The small incision in the left anterior lateral neck region was also closed with a 4-0 Monocryl suture. I then accessed the port 1 last time percutaneously and again svetlana back blood easily and was flushed with 5000units of heparinized saline solution. Both incisions were then cleaned and dressed with skin glue. The patient tolerated the procedure well no complications. All sponges, needles, and instrument counts were correct at the end procedure. EBL was _10__cc. The patient was awakened and taken to recovery in stable and satisfactory condition. Postprocedure chest x-ray to evaluate for iatrogenic pneumothorax and to document final placement of the catheter is pending at the time of this di
[2023-01-03] MEDS: fentaNYL CITRATE INJ (*CRX) 100 MCG/2 ML VIAL 25 MCG IV PUSH ×8 (13:28→15:03)
[2023-01-03] MEDS: oxyCODONE HCL (*CRX) 5 MG TAB IR PO (14:18)
[2023-01-03] MEDS: fentaNYL CITRATE INJ (*CRX) 250 MCG/5 ML VIAL 25 MCG IV PUSH (15:10)
== END 2023-01-03 15:45 | disposition home or self-care (01) ==
PROVIDERS: Visit Provider Surgery
PROC: (CPT 36561; principal; 2023-01-03 13:00)
DX: C82.69 Cutaneous follicle center lymphoma, extranodal and solid organ sites (principal); F31.9 Bipolar disorder, unspecified; F41.9 Anxiety disorder, unspecified; Z86.14 Personal history of Methicillin resistant Staphylococcus aureus infection; F17.210 Nicotine dependence, cigarettes, uncomplicated
CPT/HCPCS: 36561; 36415; 77001; 85025; 85610; 85730; A9270; C1788; J0690; J1100; J1644; J2250; J2405; J2704; J3010; J7030; J7120

== ENCOUNTER 2023-01-12 17:01 | Emergency (ER) | payer OTHER, SELFPAY ==
--- NOTE | ~2023-01-12 | XR_ITS ---
EXAMINATION: XR chest 1V portable Exam Date/Time: 01/12/2023 18:30 CDT HISTORY: port confirmation Comparison: 01/03/2023. RESULT: Lines, tubes, and devices: Left chest implanted port terminating in the proximal right atrium. Lungs and pleura: Clear. Cardiomediastinal silhouette: Stable. Other: No acute osseous or upper abdominal finding. IMPRESSION: Left chest port terminating in the proximal right atrium. No acute cardiopulmonary process detected. Reviewed, dictated and finalized at location K.
[2023-01-12 17:04] VITALS: BP 132/93; PULSE 122; RESP 18; TEMP 36.3; O2SAT 97
--- NOTE | 2023-01-12 17:07 | ED.NAVMDI ---
HPI - Nausea/Vomiting/Diarrhea General Chief complaint: Nausea/Vomiting/Diarrhea Stated complaint: n/v/d, withdrawing Time Seen by Provider: 01/12/23 17:07 Source: patient and family (boyfriend) Mode of arrival: ambulatory Limitations: no limitations History of Present Illness HPI Narrative: patient is a 32-year-old female with past medical history as noted below including polysubstance abuse, recent diagnosis of lymphoma who presents to the emergency department today by private vehicle for evaluation of nausea, vomiting, diarrhea, and withdrawing from Percocet. 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 She states that she is a recovering opiate addict as well as methamphetamines. She states she had been clean 1 month and today she started having all the symptoms and started freaking out and she states that she went to her neighbor's in past for meth and states that she did a rinse out of a bag and that it may not even show up because it was not a lot. she also drank 4 shots of burbon she states. she states her stomach is hard, she has been shitting on herself, she peed on herself last night and is withdrawing. She denies CP or SOB. she has sutures still in place from recent port insertion as she is going to began chemo for lymphoma but she hasn't started yet. Related Data Allergies Allergy/AdvReac Type Severity Reaction Status Date / Time azithromycin AdvReac Nausea Verified 01/12/23 18:04 codeine AdvReac Vomiting Verified 01/12/23 18:04 Review of Systems Review of Systems: CONSTITUTIONAL: +chills/sweats. Denies fever. +withdrawing from percocet EYES: Denies visual changes, redness, or discharge. ENT: Denies rhinorrhea, congestion, sore throat, or otalgia. CARDIOVASCULAR: Denies chest pain, palpitations, or edema. RESPIRATORY: Denies cough or dyspnea. GASTROINTESTINAL: + generalized abdominal pain, nausea, vomiting, & diarrhea. GENITOURINARY: Denies dysuria or hematuria. SKIN: Denies rash or itching. MUSCULOSKELETAL: Denies back pain, joint pain, or myalgia. NEUROLOGIC: Denies headache, numbness, or weakness. PSYCHIATRIC: +anxiety. denies depression. 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 L Side. History of salpingo-oophorectomy Social History Social History Social History: Currently living with boyfriend. Full Code. Surrogate decision maker - Isaiah Beverly (step-dad), if unavailable then Marlene Carbone (mom). Smoking packs per day: 1 Smoking cigarettes per day: 20.0 Years smoked: 11 Smoking pack-years: 11.00 Smoking status: Current every day smoker Tobacco type: cigarettes Alcohol intake: current Drinks per week: 1 Alcohol use details: social Substance use: former Substance use type: methamphetamine Other substance usage details: QUIT USING EARLY DEC 2022 D/T DIAGNOSIS & SURGERY Last use: last use of heroin-September 2014 Lack of Transportation: No Lack of Food: Never True Current Housing: I Have Housing Concerned About Future Housing: No Difficulty Paying Gas/Electric Bills: No Difficulty Paying for Meds: No Currently Unemployed: No Education: High School Diploma/GED Difficulty w/ Childcare or Family Care: No Living arrangements: with friend(s) Additional living arrangements comments: boyfr
[2023-01-12 17:16] LABS: Hematocrit 38.2 % (37.0-47.0); Mean Corpuscular HGB Conc 31.4 g/dl (32-36); Mean Corpuscular Hemoglobin 28.3 pg (26-34); Mean Corpuscular Volume 90.1 fl (80-100); Mean Platelet Volume 9.1 fl (7.4-10.4); Platelet Count Result 332 k/mm3 (150-375); Red Blood Count 4.24 M/mm3 (4.2-5.4); Red Cell Distribution Width 14.1 % (11.5-14.5)
[2023-01-12 17:26] LABS: White Blood Count 50.5 K/mm3 (4.5-10.0)
[2023-01-12 17:27] LABS: Neutrophils Percent Manual 21 % (46-73); Total Cells Counted 100
[2023-01-12 17:28] LABS: Lymphocytes Absolute Manual 37.37 K/mm3 (1.1-4.5); Lymphocytes Percent Manual 74 % (18-44); Monocytes Absolute Manual 2.52 K/mm3 (0.1-0.90); Monocytes Percent Manual 5 % (3-9); Platelet Estimate Adequate (Adequate)
[2023-01-12 17:29] LABS: Atypical Lymphocytes Present; Schistocytes None Seen (NORMAL); Smudge Cells FEW
[2023-01-12 17:38] LABS: Alanine Aminotransferase 24 U/L (6-35); Albumin Level 4.7 g/dL (3.5-5.1); Alkaline Phosphatase 175 U/L (38-126); Anion Gap 15 mmol/L (8-16); Aspartate Amino Transferase 34 U/L (14-36); Bilirubin,Total 0.5 mg/dL (0.2-1.3); Blood Urea Nitrogen 10 mg/dL (7-17); Calcium 10.1 mg/dL (8.4-10.2); Carbon Dioxide 22 mmol/L (22-30); Chloride 104 mmol/L (98-107); Estimated CRCL calculation 87 ml/min; Estimated Glomerular Filt Rate > 60; Glucose 108 mg/dL (65-110); Lipase 58 U/L (23-300); Potassium 3.7 mmol/L (3.4-5.0); Sodium 141 mmol/L (137-145)
[2023-01-12 17:46] LABS: Appearance Urine Slightly Cloudy (Clear); Bilirubin Urine Negative (Negative); Blood Urine Negative (Negative); Color Urine Yellow (Yellow); Glucose Urine UA Negative (Negative); Ketones Urine Negative (Negative); Leukocyte Esterase Ur Negative LEU/UL (Negative); Nitrate Urine Negative (Negative); Protein Urine 1+ mg/dL (Negative); Urobilinogen Urine 0.2 mg/dL (<2.0); pH Urine 5.5 (5.0-9.0)
[2023-01-12 17:58] LABS: Bacteria Urine None Seen /hpf; Need Manual Microscopic Reviewed; RBC Urine 0-2 /hpf (0-2); Squamous Epithelial Cell Urine Many /hpf (Few); WBC Urine 0-5 /hpf
[2023-01-12 18:00] LABS: Add Urine Microscopic? YES
[2023-01-12] MEDS: SODIUM CHLORIDE 0.9% IV 1,000 ML 999 ML IV CONT ×2 (18:22→20:33)
[2023-01-12] MEDS: ONDANSETRON INJ 4 MG/2 ML VIAL IV PUSH ×2 (18:25→22:38)
[2023-01-12] MEDS: fentaNYL CITRATE INJ (*CRX) 100 MCG/2 ML VIAL 50 MCG IV PUSH ×2 (18:58→22:38)
[2023-01-12] MEDS: LORazepam INJ (*CRX) 2 MG/ML VIAL 1 MG IV PUSH (19:00)
[2023-01-12 19:29] LABS: Ethanol 262 mg/dL (<10)
[2023-01-12 19:40] LABS: Amphetamine Screen Urine Negative (Negative); Barbiturate Screen Urine Negative (Negative); Benzodiazepines Screen Urine Negative (Negative); Cannabinoid Screen Urine Positive (Negative); Cocaine Screen Urine Negative (Negative); Methadone Screen Urine Negative (Negative); Opiate Screen Urine Negative (Negative); Phencyclidine Screen Urine Negative (Negative)
[2023-01-12] MEDS: FAMOTIDINE 20 MG/2 ML VIAL IV PUSH (20:34)
[2023-01-12 20:52] VITALS: BP 106/74; PULSE 95; RESP 15; O2SAT 96
[2023-01-12] MEDS: fentaNYL CITRATE INJ (*CRX) 100 MCG/2 ML VIAL IV PUSH (21:07)
[2023-01-12 21:14] LABS: Reflex Lactic Acid Yes or No Add Lactic
[2023-01-12 22:10] LABS: Lactic Acid 2.4 mmol/L (0.7-2.0)
[2023-01-12] MEDS: HEPARIN SODIUM LOCK FLUSH 500 UNITS/5 ML SYRINGE IV PUSH (23:23)
--- NOTE | 2023-01-12 23:24 | PC.NURSE ---
patient left prior to administration of Percocet.
[2023-01-12 23:25] VITALS: BP 108/66; PULSE 84; RESP 15; O2SAT 100
== END 2023-01-12 23:26 | disposition home or self-care (01) ==
PROVIDERS: Emergency Provider Nurse Practitioner; PCP Internal Medicine Hematology & Oncology
DX: R11.2 Nausea with vomiting, unspecified (principal); R19.7 Diarrhea, unspecified; C82.69 Cutaneous follicle center lymphoma, extranodal and solid organ sites; T39.1X6A Underdosing of 4-Aminophenol derivatives, initial encounter; Z91.138 Patient's unintentional underdosing of medication regimen for other reason; F17.210 Nicotine dependence, cigarettes, uncomplicated; Z86.14 Personal history of Methicillin resistant Staphylococcus aureus infection; Z90.79 Acquired absence of other genital organ(s)
CPT/HCPCS: 36415; 71045; 80053; 80307; 81001; 81025; 83605; 83690; 85025; 87040; 96361; 96374; 96375; 96376; 99284; J2060; J2405; J3010; J7030

== ENCOUNTER 2023-02-01 06:53 | Emergency (ER) | payer OTHER, SELFPAY ==
[2023-02-01 06:53] VITALS: BP 124/96; PULSE 94; RESP 15; TEMP 36.6; O2SAT 100
[2023-02-01 07:16] VITALS: BP 123/68; PULSE 94; RESP 18; O2SAT 99
--- NOTE | 2023-02-01 07:28 | ED.NAVMDI ---
HPI - Nausea/Vomiting/Diarrhea General Chief complaint: Nausea/Vomiting/Diarrhea Stated complaint: N/V Time Seen by Provider: 02/01/23 06:56 History of Present Illness HPI Narrative: This is a 32-year-old female, with recent diagnosis of cutaneous follicle center lymphoma, who has not yet started chemo or radiation, brought in by EMS for vomiting and diarrhea for the past day. The patient states she is primarily had loose, nonbloody stools. This morning she had 1 episode of nonbloody vomiting. She complains of night sweats, that she attributes to her lymphoma diagnosis. She denies recent travel, recent known sick contacts or contact with others who have recently traveled. Related Data Allergies Allergy/AdvReac Type Severity Reaction Status Date / Time azithromycin AdvReac Nausea Verified 02/01/23 07:12 codeine AdvReac Vomiting Verified 02/01/23 07:12 Review of Systems Review of Systems: CONSTITUTIONAL: Low-grade fevers and night sweats denies chills CARDIOVASCULAR: Denies chest pain, palpitations, or edema. RESPIRATORY: Denies cough or dyspnea. GASTROINTESTINAL: Nausea, nonbloody vomiting and nonbloody loose stools denies abdominal pain GENITOURINARY: Denies dysuria or hematuria. SKIN: Denies rash or itching. MUSCULOSKELETAL: Denies back pain, joint pain, or myalgia. NEUROLOGIC: Denies headache, numbness, dizziness, or weakness. PSYCHIATRIC: Denies anxiety or depression. 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 L Side. History of salpingo-oophorectomy Social History Social History Social History: Currently living with boyfriend. Full Code. Surrogate decision maker - Isaiah Beverly (step-dad), if unavailable then Marlene Carbone (mom). Smoking packs per day: 1 Smoking cigarettes per day: 20.0 Years smoked: 11 Smoking pack-years: 11.00 Smoking status: Current every day smoker Tobacco type: cigarettes Alcohol intake: current Drinks per week: 1 Alcohol use details: social Substance use: former Substance use type: methamphetamine Other substance usage details: QUIT USING EARLY DEC 2022 D/T DIAGNOSIS & SURGERY Last use: last use of heroin-September 2014 Lack of Transportation: No Lack of Food: Never True Current Housing: I Have Housing Concerned About Future Housing: No Difficulty Paying Gas/Electric Bills: No Difficulty Paying for Meds: No Currently Unemployed: No Education: High School Diploma/GED Difficulty w/ Childcare or Family Care: No Living arrangements: with friend(s) Additional living arrangements comments: boyfriend Spiritual care concerns: No Exam Narrative: GENERAL: Well-developed, well-nourished, and in no acute distress. HEAD: Normocephalic, atraumatic. EYES: PERRLA and EOMI. ENT: Nares clear, no rhinorrhea or epistaxis. Mucous membranes moist. Oropharynx without tonsillar hypertrophy exudate or other lesions. NECK: Supple. Shotty bilateral cervical lymphadenopathy. CHEST: Clear to auscultation. No respiratory distress. No wheezes rales or rhonchi HEART: Regular rate and rhythm. No murmur heard. Normal peripheral pulses. ABDOMEN: Soft, nontender, mildly-distended, normal active bowel sounds. EXTREMITIES: Normal range of motion. No edema. SKIN: Warm, dry, no rash. NEURO: Alert and oriented x3. Moving all 4 limbs purposefully. PSYCH: Normal mood and affect. Course Course Emergency Course: 09:30 - White blood cell count elevated
[2023-02-01] MEDS: SODIUM CHLORIDE 0.9% IV 1,000 ML 999 ML IV CONT (07:34)
[2023-02-01 07:42] LABS: Basophils Absolute Auto 0.1 K/mm3 (0.0-0.1); Basophils Percent Auto 0.6 % (0.2-1.2); Eosinophils Absolute Auto 0.2 K/mm3 (0-0.3); Eosinophils Percent Auto 0.9 % (0-4.4); Hematocrit 32.4 % (37.0-47.0); Immature Granulocyte Percent A 0.4 % (0-0.5); Lymphocytes Absolute Auto 18.69 K/mm3 (0.9-3.2); Lymphocytes Percent Auto 79.8 % (18.3-44.2); Mean Corpuscular HGB Conc 30.9 g/dl (32-36); Mean Corpuscular Hemoglobin 27.9 pg (26-34); Mean Corpuscular Volume 90.3 fl (80-100); Mean Platelet Volume 9.1 fl (7.4-10.4); Monocytes Absolute Auto 0.8 K/mm3 (0.1-0.6); Monocytes Percent Auto 3.5 % (2.6-8.5); Neutrophils Absolute Auto 3.5 K/mm3 (1.3-6.7); Neutrophils Percent Auto 14.8 % (45.5-73.1); Nucleated Red Blood Cells Perc 0.1 % (0.0-0.2); Platelet Count Result 296 k/mm3 (150-375); Red Blood Count 3.59 M/mm3 (4.2-5.4); Red Cell Distribution Width 15.2 % (11.5-14.5); White Blood Count 23.4 K/mm3 (4.5-10.0)
[2023-02-01 07:44] LABS: Alanine Aminotransferase 23 U/L (6-35); Alkaline Phosphatase 199 U/L (38-126); Anion Gap 7 mmol/L (8-16); Aspartate Amino Transferase 37 U/L (14-36); Bilirubin,Total 0.6 mg/dL (0.2-1.3); Blood Urea Nitrogen 11 mg/dL (7-17); Carbon Dioxide 24 mmol/L (22-30); Chloride 103 mmol/L (98-107); Estimated CRCL calculation 101 ml/min; Estimated Glomerular Filt Rate > 60; Glucose 96 mg/dL (65-110); Magnesium 1.7 mg/dL (1.6-2.3); Potassium 4.6 mmol/L (3.4-5.0); Sodium 134 mmol/L (137-145)
[2023-02-01 08:05] LABS: Platelet Estimate Adequate (Adequate)
[2023-02-01 08:06] LABS: Atypical Lymphocytes Present; Hypochromasia 1+ (NORMAL); Schistocytes None Seen (NORMAL); Stomatocytes 1+ (NORMAL)
[2023-02-01] MEDS: MORPHINE SULFATE (*CRX) 4 MG/ML INJ IV PUSH (08:38)
[2023-02-01] MEDS: ONDANSETRON INJ 4 MG/2 ML VIAL IV PUSH (08:40)
--- NOTE | 2023-02-01 09:07 | PC.NURSE ---
Pt had total 1000ml of fluids infused.
[2023-02-01] MEDS: MORPHINE SULFATE (*CRX) 2 MG/ML INJ IV PUSH (09:53)
[2023-02-01 10:00] VITALS: BP 121/76
--- NOTE | 2023-02-01 10:02 | PC.NURSE ---
fluids infused at 0810
== END 2023-02-01 10:01 | disposition home or self-care (01) ==
PROVIDERS: Emergency Provider Preventive Medicine Aerospace Medicine
DX: K52.9 Noninfective gastroenteritis and colitis, unspecified (principal); F17.210 Nicotine dependence, cigarettes, uncomplicated
CPT/HCPCS: 36415; 80053; 83735; 85025; 96361; 96374; 96375; 96376; 99284; J2270; J2405; J7030

== ENCOUNTER 2023-03-03 07:36 | Emergency (ER) | payer OTHER, SELFPAY ==
[2023-03-03 07:42] VITALS: BP 112/74; PULSE 97; RESP 18; TEMP 36.7; O2SAT 98
[2023-03-03 08:01] VITALS: BP 105/71; PULSE 89; RESP 20
[2023-03-03] MEDS: ONDANSETRON INJ 4 MG/2 ML VIAL IV PUSH (08:01)
[2023-03-03] MEDS: SODIUM CHLORIDE 0.9% IV 1,000 ML 999 ML IV CONT (08:02)
--- NOTE | 2023-03-03 08:02 | ED.ABDPAIN ---
HPI - Abdominal Pain General Chief Complaint: Abdominal Pain Stated Complaint: abd pain Time Seen by Provider: 03/03/23 07:45 History of Present Illness HPI narrative: 33-year-old female currently being treated for stage IV lymphoma presented to the emergency department complaining of abdominal pain with associated nausea and vomiting. Patient's currently on chemotherapy with last chemo approximately 3 weeks ago. Patient has chemo is on the 7th. Patient follows up with Dr. Hernandes. Related Data Home Medications Medication Instructions Recorded Confirmed allopurinol 300 mg tablet 300 mg PO DAILY 02/13/23 02/13/23 Allergies Allergy/AdvReac Type Severity Reaction Status Date / Time azithromycin AdvReac Nausea Verified 02/01/23 07:12 codeine AdvReac Vomiting Verified 02/01/23 07:12 pecan nut AdvReac Nausea and Verified 02/13/23 08:34 Vomiting Review of Systems Review of Systems: All systems reviewed & are unremarkable except as noted in HPI and below PMFSH Past Medical History Medical History Anxiety Atypical bipolar disorder Drug-induced psychotic disorder Ectopic History of heroin use Methamphetamine abuse, episodic MRSA infection buttock and leg during last lengthy incarceration (2020) Surgical History Surgical History History of breast surgery 2018 or 2019, 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 L Side. History of salpingo-oophorectomy Social History Social History Social History: Currently living with boyfriend. Full Code. Surrogate decision maker - Isaiah Beverly (step-dad), if unavailable then Marlene Carbone (mom). Smoking packs per day: 1 Smoking cigarettes per day: 20.0 Years smoked: 11 Smoking pack-years: 11.00 Smoking status: Current every day smoker Tobacco type: cigarettes Alcohol intake: current Drinks per week: 1 Alcohol use details: social Substance use: former Substance use type: methamphetamine Other substance usage details: QUIT USING EARLY DEC 2022 D/T DIAGNOSIS & SURGERY Last use: last use of heroin-September 2014 Lack of Transportation: No Lack of Food: Never True Current Housing: I Have Housing Concerned About Future Housing: No Difficulty Paying Gas/Electric Bills: No Difficulty Paying for Meds: No Currently Unemployed: No Education: High School Diploma/GED Difficulty w/ Childcare or Family Care: No Living arrangements: with friend(s) Additional living arrangements comments: boyfriend Spiritual care concerns: No Exam Narrative: APPEARANCE: Well appearing, no pain, no distress, well-nourished. HEAD: normocephalic, atraumatic. EYES: PERRLA/EOMI, conjunctivae clear. NOSE: Normal no drainage EARS:TMS clear with good light reflex. THROAT: Pharynx clear, no exudate. NECK: Supple. No adenopathy, no masses. RESPIRATORY: Airway patent, respirations nonlabored. Clear to auscultation bilaterally, no rales, rhonchi, wheezing. CARDIOVASCULAR: Regular rate and rhythm without murmurs rubs or gallops. ABDOMINAL: Soft, nontender, nondistended, normal bowel sounds MUSCULOSKELETAL: Moves all extremities. Strength/ROM intact, No edema, No calf tenderness. NEURO: Alert. Cranial nerves II through XII intact. Good gait. Good coordination SKIN: Warm, dry. Normal Color Course Course Emergency Course: 33-year-old female with stage IV lymphoma presented to ED for complaints nausea vomiting. After treatment patient states that she does feel improved. Patient was afebrile with a white blood cell count of 1.9. Patient has a stable hemoglobin. No significant electrolyte abnormalities and no evidence of urinary tract infection. Patient is requesting discharge home stating she feels improved. Patient was encouraged to have close follow-up with her
[2023-03-03] MEDS: HYDROmorphone HCL INJ (*CRX) 1 MG/ML SYR 0.5 MG IV PUSH (08:04)
[2023-03-03 08:11] LABS: Hematocrit 31.4 % (37.0-47.0); Hemoglobin 10.1 g/dL (12.0-15.0); Mean Corpuscular HGB Conc 32.2 g/dl (32-36); Mean Corpuscular Hemoglobin 27.9 pg (26-34); Mean Corpuscular Volume 86.7 fl (80-100); Mean Platelet Volume 9.7 fl (7.4-10.4); Platelet Count Result 209 k/mm3 (150-375); Red Blood Count 3.62 M/mm3 (4.2-5.4); Red Cell Distribution Width 15.8 % (11.5-14.5)
[2023-03-03 08:20] LABS: Lactic Acid Reflex 0.7 mmol/L (0.7-2.0); White Blood Count 1.9 K/mm3 (4.5-10.0)
[2023-03-03 08:21] LABS: Alanine Aminotransferase 20 U/L (6-35); Alkaline Phosphatase 126 U/L (38-126); Anion Gap 6 mmol/L (8-16); Aspartate Amino Transferase 38 U/L (14-36); Bilirubin,Total 0.7 mg/dL (0.2-1.3); Blood Urea Nitrogen 14 mg/dL (7-17); Carbon Dioxide 25 mmol/L (22-30); Chloride 104 mmol/L (98-107); Estimated CRCL calculation 91 ml/min; Estimated Glomerular Filt Rate > 60; Glucose 104 mg/dL (65-110); Lipase 67 U/L (23-300); Potassium 4.3 mmol/L (3.4-5.0); Sodium 135 mmol/L (137-145)
[2023-03-03 08:22] LABS: Partial Thromboplastin Time 31.7 SECONDS (22.3-36.8)
[2023-03-03 08:31] VITALS: BP 107/65; PULSE 87; RESP 27
[2023-03-03 08:37] LABS: Band Neutrophils Percent 24 % (0-6); Eosinophils Absolute Manual 0.03 K/mm3 (0.02-0.5); Eosinophils Percent Manual 2 % (0-4); Lymphocytes Percent Manual 32 % (18-44); Monocytes Absolute Manual 0.19 K/mm3 (0.1-0.90); Monocytes Percent Manual 10 % (3-9); Neutrophils Absolute Manual 1.06 K/mm3 (1.7-7.2); Neutrophils Percent Manual 32 % (46-73); Platelet Estimate Adequate (Adequate); Total Cells Counted 50
[2023-03-03 08:38] LABS: Anisocytosis 2+ (NORMAL); Schistocytes None Seen (NORMAL)
[2023-03-03 08:50] LABS: Add Urine Microscopic? YES; Appearance Urine Cloudy (Clear); Bacteria Urine 2+ /hpf; Bilirubin Urine Negative (Negative); Blood Urine Negative (Negative); Color Urine Dark Yellow (Yellow); Glucose Urine UA Negative (Negative); Ketones Urine Trace mg/dL (Negative); Leukocyte Esterase Ur Negative LEU/UL (Negative); Need Manual Microscopic Reviewed; Nitrate Urine Negative (Negative); Non Pathogenic Casts 0-2; Protein Urine Trace mg/dL (Negative); Specific Grav Ur 1.029 (1.001-1.035); Squamous Epithelial Cell Urine Moderate /hpf (Few); WBC Urine 0-5 /hpf
[2023-03-03] MEDS: HEPARIN SODIUM LOCK FLUSH 500 UNITS/5 ML VIAL (09:22)
[2023-03-03 09:29] VITALS: BP 110/71; PULSE 80; RESP 16; TEMP 36.7; O2SAT 98
== END 2023-03-03 09:53 | disposition home or self-care (01) ==
PROVIDERS: Emergency Provider Emergency Medicine
DX: R11.2 Nausea with vomiting, unspecified (principal); C85.90 Non-Hodgkin lymphoma, unspecified, unspecified site; F17.210 Nicotine dependence, cigarettes, uncomplicated; Z86.14 Personal history of Methicillin resistant Staphylococcus aureus infection; Z79.60 Long term (current) use of unspecified immunomodulators and immunosuppressants
CPT/HCPCS: 36415; 80053; 81001; 83605; 83690; 85025; 85610; 85730; 96361; 96374; 96375; 99284; J1170; J1642; J2405; J7030

== ENCOUNTER 2023-03-14 21:07 | Emergency (ER) | payer OTHER, SELFPAY ==
--- NOTE | ~2023-03-14 | XR_ITS ---
EXAMINATION: XR chest 1V portable INDICATION: Lymphoma, body aches TECHNIQUE: Portable AP chest at 0218 hours COMPARISON: 01/12/2023 FINDINGS: The lungs are free of acute opacities. No pleural effusion or pneumothorax. The cardiomedia stinal silhouette is normal. A Port-A-Cath of the left chest and with this tip in the proximal right atrium. IMPRESSION: 1. No acute cardiopulmonary abnormality. Reviewed, dictated and finalized at location F. GER [facility]
[2023-03-14 21:09] VITALS: BP 123/79; PULSE 104; RESP 20; TEMP 36.3; O2SAT 100
[2023-03-14 23:03] VITALS: BP 108/60; PULSE 105; RESP 18; TEMP 35.9; O2SAT 100
[2023-03-14 23:55] VITALS: BP 116/77; PULSE 114; RESP 21; O2SAT 99
[2023-03-15 01:08] VITALS: BP 111/76; PULSE 98; RESP 16; O2SAT 98
[2023-03-15] MEDS: MORPHINE SULFATE INJ (*CRX) 10 MG/ML AMP IM (03:06)
--- NOTE | 2023-03-15 03:07 | ED.GENADULT ---
HPI - General Adult General Chief complaint: Recheck/Abnormal Lab/Rx Stated complaint: abnormal labs Time Seen by Provider: 03/15/23 01:34 History of Present Illness HPI narrative: This is a 33-year-old female presenting with mouth ulcers due to chemotherapy. Patient has stage IV lymphoma. She has been treated with chemo by Dr. Hernandes. However she has developed mucosal ulceration is her mouth which is very painful. She has been prescribed Magic mouthwash but cannot afford it. She is here for pain control Related Data Home Medications Medication Instructions Recorded Confirmed allopurinol 300 mg tablet 300 mg PO DAILY 02/13/23 03/13/23 Allergies Allergy/AdvReac Type Severity Reaction Status Date / Time azithromycin AdvReac Nausea Verified 03/15/23 01:10 codeine AdvReac Vomiting Verified 03/15/23 01:10 pecan nut AdvReac Nausea and Verified 03/15/23 01:10 Vomiting PMFSH Past Medical History Medical History Anxiety Atypical bipolar disorder Drug-induced psychotic disorder Ectopic History of heroin use Methamphetamine abuse, episodic MRSA infection buttock and leg during last lengthy incarceration (2020) Surgical History Surgical History History of breast surgery 2018 or 2019, 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 L Side. History of salpingo-oophorectomy Social History Social History Social History: Currently living with boyfriend. Full Code. Surrogate decision maker - Isaiah Beverly (step-dad), if unavailable then Marlene Carbone (mom). Smoking packs per day: 1 Smoking cigarettes per day: 20.0 Years smoked: 11 Smoking pack-years: 11.00 Smoking status: Current every day smoker Tobacco type: cigarettes Alcohol intake: current Drinks per week: 1 Alcohol use details: social Substance use: former Substance use type: methamphetamine Other substance usage details: QUIT USING EARLY DEC 2022 D/T DIAGNOSIS & SURGERY Last use: last use of heroin-September 2014 Lack of Transportation: No Lack of Food: Never True Current Housing: I Have Housing Concerned About Future Housing: No Difficulty Paying Gas/Electric Bills: No Difficulty Paying for Meds: No Currently Unemployed: No Education: High School Diploma/GED Difficulty w/ Childcare or Family Care: No Living arrangements: with friend(s) Additional living arrangements comments: boyfriend Spiritual care concerns: No Exam Narrative: APPEARANCE: Appears older than her stated age Head: Multiple erosions her mouth EYES: EOMI, NOSE: Atraumatic NECK: Trachea midline RESPIRATORY: No increased rate of breathing CARDIOVASCULAR: RRR, ABDOMINAL: Non-distended MUSCULOSKELETAl: No obvious deformities NEURO: Alert. Moving 4/4 extremities SKIN:: Warm, dry. Normal color PSYCHIATRIC: Normal affect Course Vital Signs Vital signs: Vital Signs Temperature 97.3 F L 03/14/23 21:09 Pulse Rate 104 H 03/14/23 21:09 Respiratory Rate 20 03/14/23 21:09 Blood Pressure 123/79 03/14/23 21:09 Pulse Oximetry 100 03/14/23 21:09 Oxygen Delivery Room Air 03/14/23 21:09 Temperature 96.7 F L 03/14/23 23:03 Pulse Rate 98 03/15/23 01:08 Respiratory Rate 16 03/15/23 01:08 Blood Pressure 111/76 03/15/23 01:08 Pulse Oximetry 98 03/15/23 01:08 Oxygen Delivery Room Air 03/14/23 21:09 Medical Decision Making MDM Narrative Medical decision making narrative: -Course: 33-year-old female with stage IV female presenting with mouth ulcerations. Given Orajel and morphine in the emergency department. Discharged with oncology follow-up. -DDX includes but is not limited to: Aphthous ulcers, ulcers due to chemotherapy -Co-morbidities complicating care: Stage IV lymphoma -Interventions:orajel, morphine -S
== END 2023-03-15 03:25 | disposition home or self-care (01) ==
PROVIDERS: Emergency Provider Emergency Medicine
DX: K12.1 Other forms of stomatitis (principal); T45.1X5A Adverse effect of antineoplastic and immunosuppressive drugs, initial encounter; C85.90 Non-Hodgkin lymphoma, unspecified, unspecified site; Z86.14 Personal history of Methicillin resistant Staphylococcus aureus infection; Z90.79 Acquired absence of other genital organ(s); F17.210 Nicotine dependence, cigarettes, uncomplicated; Z79.60 Long term (current) use of unspecified immunomodulators and immunosuppressants
CPT/HCPCS: 71045; 96372; 99283; A9270; J2270

== ENCOUNTER 2023-03-20 14:21 | Emergency (ER) | payer OTHER, SELFPAY ==
[2023-03-20 14:30] VITALS: BP 100/65; PULSE 86; RESP 18; TEMP 36.4; O2SAT 99
--- NOTE | 2023-03-20 16:30 | ED.GENADULT ---
HPI - General Adult General Chief complaint: Skin/Abscess/Foreign Body Stated complaint: rash to body Time Seen by Provider: 03/20/23 15:32 History of Present Illness HPI narrative: 33-year-old female with history of stage IV lymphoma that does follow-up with Heme-Onc, Dr Hernandes. presented the ED for evaluation of itching which she states is secondary to allergic reaction to her chemo. Patient states she has had a long-standing reaction to her chemotherapy. Patient is currently on hydroxyzine and on a steroid pack that was started 2 days ago. Patient states she was referred to the emergency department by her oncologist. Patient states she is here for medications for pain control. Related Data Home Medications Medication Instructions Recorded Confirmed allopurinol 300 mg tablet 300 mg PO DAILY 02/13/23 03/20/23 Allergies Allergy/AdvReac Type Severity Reaction Status Date / Time azithromycin AdvReac Nausea Verified 03/20/23 15:37 codeine AdvReac Vomiting Verified 03/20/23 15:37 pecan nut AdvReac Nausea and Verified 03/20/23 15:37 Vomiting Review of Systems Review of Systems: All systems reviewed & are unremarkable except as noted in HPI and below PMFSH Past Medical History Medical History Anxiety Atypical bipolar disorder Drug-induced psychotic disorder Ectopic History of heroin use Methamphetamine abuse, episodic MRSA infection buttock and leg during last lengthy incarceration (2020) Surgical History Surgical History History of breast 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 L Side. History of salpingo-oophorectomy Social History Social History Social History: Currently living with boyfriend. Full Code. Surrogate decision maker - Isaiah Beverly (step-dad), if unavailable then Marlene Carbone (mom). Smoking packs per day: 1 Smoking cigarettes per day: 20.0 Years smoked: 11 Smoking pack-years: 11.00 Smoking status: Current every day smoker Tobacco type: cigarettes Alcohol intake: current Drinks per week: 1 Alcohol use details: social Substance use: former Substance use type: methamphetamine Other substance usage details: QUIT USING EARLY DEC 2022 D/T DIAGNOSIS & SURGERY Last use: last use of heroin-September 2014 Lack of Transportation: No Lack of Food: Never True Current Housing: I Have Housing Concerned About Future Housing: No Difficulty Paying Gas/Electric Bills: No Difficulty Paying for Meds: No Currently Unemployed: No Education: High School Diploma/GED Difficulty w/ Childcare or Family Care: No Living arrangements: with friend(s) Additional living arrangements comments: boyfriend Spiritual care concerns: No Exam Narrative: APPEARANCE: Well appearing, no pain, no distress, well-nourished. HEAD: normocephalic, atraumatic. EYES: PERRLA/EOMI, conjunctivae clear. NOSE: Normal no drainage EARS:TMS clear with good light reflex. THROAT: Pharynx clear, no exudate. NECK: Supple. No adenopathy, no masses. RESPIRATORY: Airway patent, respirations nonlabored. Clear to auscultation bilaterally, no rales, rhonchi, wheezing. CARDIOVASCULAR: Regular rate and rhythm without murmurs rubs or gallops. ABDOMINAL: Soft, nontender, nondistended, normal bowel sounds MUSCULOSKELETAL: Moves all extremities. Strength/ROM intact, No edema, No calf tenderness. NEURO: Alert. Cranial nerves II through XII intact. grossly intact SKIN: Urticarial rash with excoriation Course Course Emergency Course: 33-year-old female presents to the emergency department for evaluation of itching excoriated are urticarial rash and poorly controlled pain. after treatment with pain medication patient states she felt improved and requested discharge from the restaurant.
[2023-03-20] MEDS: HYDROmorphone HCL INJ (*CRX) 1 MG/ML SYR IM (16:36)
== END 2023-03-20 16:55 | disposition home or self-care (01) ==
PROVIDERS: Emergency Provider Emergency Medicine
DX: L50.0 Allergic urticaria (principal); T45.1X5A Adverse effect of antineoplastic and immunosuppressive drugs, initial encounter; C85.90 Non-Hodgkin lymphoma, unspecified, unspecified site; F17.210 Nicotine dependence, cigarettes, uncomplicated; Z86.14 Personal history of Methicillin resistant Staphylococcus aureus infection; Z90.79 Acquired absence of other genital organ(s)
CPT/HCPCS: 36592; 80047; 80053; 85025; 96372; 99283; J1170

== ENCOUNTER 2023-03-21 09:07 | Emergency (ER) | payer OTHER, SELFPAY ==
[2023-03-21 09:04] VITALS: BP 125/73; PULSE 68; RESP 16; TEMP 36.6; O2SAT 100
--- NOTE | 2023-03-21 09:16 | ED.GENADULT ---
HPI - General Adult General Chief complaint: Unspecified Stated complaint: n/v, abd pain Source: patient Mode of arrival: EMS Limitations: no limitations History of Present Illness HPI narrative: This is a 33-year-old female With PMH of stage IV lymphoma who presents to the ED via EMS for chief complaint of abdominal pain. Reports this pain began suddenly this morning after waking up. Reports location is diffuse. She reports the pain starts to cause her to become nauseous and vomiting. She took Zofran, hydroxyzine, steroids, Percocet prior to arrival. reports that she has been unable to go to chemo due to her labs being off. States she still follows up with Dr. Davila. Denies fevers, chills, chest pain, shortness of breath cough. She is here for pain control. Related Data Home Medications Medication Instructions Recorded Confirmed hydroxyzine HCl 25 mg tablet mg 03/21/23 methylprednisolone 4 mg tablets in mg 03/21/23 03/21/23 a dose pack Allergies Allergy/AdvReac Type Severity Reaction Status Date / Time azithromycin AdvReac Nausea Verified 03/21/23 11:33 codeine AdvReac Vomiting Verified 03/21/23 11:33 pecan nut AdvReac Nausea and Verified 03/21/23 11:33 Vomiting Review of Systems Review of Systems: All systems as dictated in HPI [facility] Past Medical History Medical History Anxiety Atypical bipolar disorder Drug-induced psychotic disorder Ectopic History of heroin use Methamphetamine abuse, episodic MRSA infection buttock and leg during last lengthy incarceration (2020) Surgical History Surgical History 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 L Side. History of salpingo-oophorectomy Social History Social History Social History: Currently living with boyfriend. Full Code. Surrogate decision maker - Isaiah Beverly (step-dad), if unavailable then Marlene Carbone (mom). Smoking packs per day: 1 Smoking cigarettes per day: 20.0 Years smoked: 11 Smoking pack-years: 11.00 Smoking status: Current every day smoker Tobacco type: cigarettes Alcohol intake: current Drinks per week: 1 Alcohol use details: social Substance use: former Substance use type: methamphetamine Other substance usage details: QUIT USING EARLY DEC 2022 D/T DIAGNOSIS & SURGERY Last use: last use of heroin-September 2014 Lack of Transportation: No Lack of Food: Never True Current Housing: I Have Housing Concerned About Future Housing: No Difficulty Paying Gas/Electric Bills: No Difficulty Paying for Meds: No Currently Unemployed: No Education: High School Diploma/GED Difficulty w/ Childcare or Family Care: No Living arrangements: with friend(s) Additional living arrangements comments: boyfriend Spiritual care concerns: No Exam Narrative: GENERAL: Well-appearing, well-nourished, and in no acute distress. HEAD: Normocephalic, atraumatic. EYES: PERRLA and EOMI. ENT: Dry mucous membranes Nares clear, no rhinorrhea or epistaxis. Oropharynx without tonsillar hypertrophy exudate or other lesions. NECK: Supple. No adenopathy or masses. CHEST: No respiratory distress. Clear to auscultation. No wheezes rales or rhonchi HEART: Regular rate and rhythm. No murmur heard. Normal peripheral pulses. ABDOMEN: Soft, nontender, nondistended, normal active bowel sounds. MSK: Normal range of motion. No edema. SKIN: Warm, dry, no rash. NEURO: Alert and oriented x3. No focal deficits. PSYCH: Normal mood and affect. Course Course Emergency Course: re-evaluation 1240: sleeping in room on my arrival. Feeling much improved. Vital Signs Vital signs: Vital Signs Temperature 97.9 F 03/21/23 09:04 Pulse Rate 68 03/21/23 09:04 Respiratory
[2023-03-21] MEDS: HYDROmorphone HCL INJ (*CRX) 1 MG/ML SYR 0.5 MG IV PUSH ×3 (09:30→12:01)
[2023-03-21] MEDS: ONDANSETRON INJ 4 MG/2 ML VIAL IV PUSH (09:32)
[2023-03-21] MEDS: SODIUM CHLORIDE 0.9% IV 1,000 ML 999 ML IV CONT (09:32)
[2023-03-21 09:33] LABS: Basophils Absolute Auto 0.1 K/mm3 (0.0-0.1); Basophils Percent Auto 0.7 % (0.2-1.2); Eosinophils Percent Auto 0.3 % (0-4.4); Hematocrit 30.6 % (37.0-47.0); Hemoglobin 9.5 g/dL (12.0-15.0); Immature Granulocyte Absolute 0.06 K/mm3 (0.00-0.031); Immature Granulocyte Percent A 0.8 % (0-0.5); Lymphocytes Absolute Auto 1.46 K/mm3 (0.9-3.2); Lymphocytes Percent Auto 19.7 % (18.3-44.2); Mean Corpuscular Hemoglobin 27.9 pg (26-34); Mean Corpuscular Volume 89.7 fl (80-100); Mean Platelet Volume 10.1 fl (7.4-10.4); Monocytes Absolute Auto 1.7 K/mm3 (0.1-0.6); Monocytes Percent Auto 23.1 % (2.6-8.5); Neutrophils Absolute Auto 4.1 K/mm3 (1.3-6.7); Neutrophils Percent Auto 55.4 % (45.5-73.1); Platelet Count Result 487 k/mm3 (150-375); Red Blood Count 3.41 M/mm3 (4.2-5.4); Red Cell Distribution Width 18.8 % (11.5-14.5); White Blood Count 7.4 K/mm3 (4.5-10.0)
[2023-03-21 09:45] LABS: Alanine Aminotransferase 18 U/L (6-35); Albumin Level 4.2 g/dL (3.5-5.1); Alkaline Phosphatase 79 U/L (38-126); Anion Gap 6 mmol/L (8-16); Aspartate Amino Transferase 28 U/L (14-36); Bilirubin,Total 0.4 mg/dL (0.2-1.3); Blood Urea Nitrogen 16 mg/dL (7-17); Calcium 9.6 mg/dL (8.4-10.2); Carbon Dioxide 27 mmol/L (22-30); Chloride 105 mmol/L (98-107); Estimated CRCL calculation 100 ml/min; Estimated Glomerular Filt Rate > 60; Glucose 136 mg/dL (65-110); Potassium 4.3 mmol/L (3.4-5.0); Sodium 138 mmol/L (137-145)
[2023-03-21] MEDS: PROMETHAZINE HCL 25 MG/ML AMPUL 12.5 MG IV PUSH (09:56)
[2023-03-21 10:33] LABS: Lipase 267 U/L (23-300)
--- NOTE | 2023-03-21 10:39 | PC.NURSE ---
This RN asked pt for urine sample when pt arrived, pt stated she would try to go soon. Edgard Peralta asked pt for urine specimen at 1030 pt states she would go soon
[2023-03-21 11:10] LABS: Appearance Urine Cloudy (Clear); Bacteria Urine 2+ /hpf; Bilirubin Urine Negative (Negative); Blood Urine Negative (Negative); Color Urine Yellow (Yellow); Glucose Urine UA Negative (Negative); Ketones Urine Negative (Negative); Leukocyte Esterase Ur Trace LEU/UL (Negative); Nitrate Urine Negative (Negative); Non Pathogenic Casts 0-2; Protein Urine Negative (Negative); RBC Urine 0-2 /hpf (0-2); Specific Grav Ur 1.025 (1.001-1.035); Squamous Epithelial Cell Urine Moderate /hpf (Few); WBC Urine 0-5 /hpf; pH Urine 6.5 (5.0-9.0)
[2023-03-21 11:14] VITALS: BP 122/75; PULSE 58; RESP 14; O2SAT 100
[2023-03-21 11:26] LABS: Add Urine Microscopic? YES
--- NOTE | 2023-03-21 13:15 | PC.NURSE ---
Pt requesting another round of pain medication before she leaves . ERP aware and recommends that she use her Percocet that she has at home. Pt cursing at staff.
== END 2023-03-21 13:26 | disposition home or self-care (01) ==
PROVIDERS: Emergency Provider Physician Assistant
DX: R11.2 Nausea with vomiting, unspecified (principal); F17.210 Nicotine dependence, cigarettes, uncomplicated
CPT/HCPCS: 36415; 80053; 81001; 83690; 85025; 96361; 96374; 96375; 96376; 99284; J1170; J2405; J2550; J7030

== ENCOUNTER 2023-03-22 06:49 | Emergency (ER) | payer OTHER, SELFPAY ==
--- NOTE | ~2023-03-22 | CT_ITS ---
EXAMINATION: CT abdomen pelvis wo con DATE: 03/22/2023 07:29 INDICATION: Abdominal pain TECHNIQUE: Computed tomography (CT) of the abdomen and pelvis was performed without intravenous contr ast. The dose-length product was 215.09 mGy-cm. Automated exposure control and iterative reconstructi on technique were employed. COMPARISON: CT dated 12/17/2022 FINDINGS: Small right pleural effusion. Heart size normal. There is ascites. There is retroperitoneal lymphadenopathy. There is splenomegaly. There is lymphadenopathy of the abdomen, pelvis and inguinal locations. There is hepatomegaly. No acute osseous abnormality. No free air. Nonobstructive bowel pa ttern. IMPRESSION: 1. Marked abdominal and pelvic lymphadenopathy, suspicious for lymphoma. 2: Moderate ascites. 3: Persistent hepatosplenomegaly. Reviewed, dictated and finalized at location A. [employer] VICE PRESIDENT AND CHIEF OPERATING OFFICER
[2023-03-22 06:49] VITALS: BP 120/87; PULSE 78; RESP 19; TEMP 36.8; O2SAT 100
--- NOTE | 2023-03-22 07:04 | ED.GENADULT ---
HPI - General Adult General Chief complaint: Nausea/Vomiting/Diarrhea Stated complaint: N/V Time Seen by Provider: 03/22/23 06:54 History of Present Illness HPI narrative: 33-year-old female currently being treated for stage IV lymphoma presenting to the emergency department for evaluation of persistent nausea vomiting and abdominal pain. This is the 3rd day in a row the patient has presented to the emergency department. Patient initially presented to the ED for evaluation for allergic reaction. Patient has been taking hydroxyzine and prednisone and the rash is improving. Patient presented to the emergency department yesterday complaining of persistent nausea vomiting and uncontrolled pain. Patient had a negative workup yesterday and patient states that she slept well last night after getting home but this morning when she woke up she had immediate onset of nausea vomiting and abdominal pain. Patient states she did not take her ODT Zofran until the ambulance arrived. Upon arrival to the emergency department patient states that her nausea vomiting is improved. Patient does not appear to be in any distress. Patient follows up with Dr Jaimes for stage IV lymphoma. Related Data Home Medications Medication Instructions Recorded Confirmed hydroxyzine HCl 25 mg tablet mg 03/21/23 methylprednisolone 4 mg tablets in mg 03/21/23 03/21/23 a dose pack Allergies Allergy/AdvReac Type Severity Reaction Status Date / Time azithromycin AdvReac Nausea Verified 03/22/23 06:58 codeine AdvReac Vomiting Verified 03/22/23 06:58 pecan nut AdvReac Nausea and Verified 03/22/23 06:58 Vomiting Review of Systems Review of Systems: All systems reviewed & are unremarkable except as noted in HPI and below PMFSH Past Medical History Medical History Anxiety Atypical bipolar disorder Drug-induced psychotic disorder Ectopic History of heroin use Methamphetamine abuse, episodic MRSA infection buttock and leg during last lengthy incarceration (2020) Surgical History Surgical History History of breast 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 L Side. History of salpingo-oophorectomy Social History Social History Social History: Currently living with boyfriend. Full Code. Surrogate decision maker - Isaiahkarson Beverly (step-dad), if unavailable then Marlene Carbone (mom). Smoking packs per day: 1 Smoking cigarettes per day: 20.0 Years smoked: 11 Smoking pack-years: 11.00 Smoking status: Current every day smoker Tobacco type: cigarettes Alcohol intake: current Drinks per week: 1 Alcohol use details: social Substance use: former Substance use type: methamphetamine Other substance usage details: QUIT USING EARLY DEC 2022 D/T DIAGNOSIS & SURGERY Last use: last use of heroin-September 2014 Lack of Transportation: No Lack of Food: Never True Current Housing: I Have Housing Concerned About Future Housing: No Difficulty Paying Gas/Electric Bills: No Difficulty Paying for Meds: No Currently Unemployed: No Education: High School Diploma/GED Difficulty w/ Childcare or Family Care: No Living arrangements: with friend(s) Additional living arrangements comments: boyfriend Spiritual care concerns: No Exam Narrative: APPEARANCE: Well appearing, no pain, no distress, well-nourished. HEAD: normocephalic, atraumatic. EYES: PERRLA/EOMI, conjunctivae clear. NOSE: Normal no drainage EARS:TMS clear with good light reflex. THROAT: Pharynx clear, no exudate. NECK: Supple. No adenopathy, no masses. RESPIRATORY: Airway patent, respirations nonlabored. Clear to auscultation bilaterally, no rales, rhonchi, wheezing. CARDIOVASCULAR: Regular rate and rhythm without murmurs rubs or gallops. ABDOMINAL: Soft,
[2023-03-22] MEDS: METOCLOPRAMIDE HCL INJ 10 MG/2 ML VIAL IV PUSH (07:40)
[2023-03-22] MEDS: ONDANSETRON INJ 4 MG/2 ML VIAL IV PUSH ×2 (07:40→09:53)
[2023-03-22] MEDS: HYDROmorphone HCL INJ (*CRX) 1 MG/ML SYR 0.5 MG IV PUSH ×2 (07:41→09:53)
[2023-03-22] MEDS: SODIUM CHLORIDE 0.9% IV 1,000 ML 999 ML IV CONT (07:41)
[2023-03-22 07:42] LABS: Basophils Percent Auto 0.2 % (0.2-1.2); Hematocrit 29.2 % (37.0-47.0); Hemoglobin 9.2 g/dL (12.0-15.0); Immature Granulocyte Absolute 0.04 K/mm3 (0.00-0.031); Immature Granulocyte Percent A 0.6 % (0-0.5); Lymphocytes Absolute Auto 1.44 K/mm3 (0.9-3.2); Lymphocytes Percent Auto 21.8 % (18.3-44.2); Mean Corpuscular HGB Conc 31.5 g/dl (32-36); Mean Corpuscular Hemoglobin 27.8 pg (26-34); Mean Corpuscular Volume 88.2 fl (80-100); Mean Platelet Volume 9.6 fl (7.4-10.4); Monocytes Absolute Auto 1.4 K/mm3 (0.1-0.6); Monocytes Percent Auto 20.8 % (2.6-8.5); Neutrophils Absolute Auto 3.8 K/mm3 (1.3-6.7); Neutrophils Percent Auto 56.6 % (45.5-73.1); Platelet Count Result 472 k/mm3 (150-375); Red Blood Count 3.31 M/mm3 (4.2-5.4); Red Cell Distribution Width 18.8 % (11.5-14.5); White Blood Count 6.6 K/mm3 (4.5-10.0)
[2023-03-22 07:47] VITALS: BP 112/55; PULSE 83; RESP 16; O2SAT 100
[2023-03-22 07:57] LABS: Lactic Acid Reflex 0.7 mmol/L (0.7-2.0)
[2023-03-22 07:58] LABS: Alanine Aminotransferase 15 U/L (6-35); Albumin Level 3.8 g/dL (3.5-5.1); Alkaline Phosphatase 75 U/L (38-126); Anion Gap 5 mmol/L (8-16); Aspartate Amino Transferase 23 U/L (14-36); Bilirubin,Total 0.5 mg/dL (0.2-1.3); Blood Urea Nitrogen 10 mg/dL (7-17); Carbon Dioxide 25 mmol/L (22-30); Chloride 104 mmol/L (98-107); Estimated CRCL calculation 107 ml/min; Estimated Glomerular Filt Rate > 60; Glucose 104 mg/dL (65-110); Lipase 167 U/L (23-300); Potassium 4.2 mmol/L (3.4-5.0); Sodium 134 mmol/L (137-145)
[2023-03-22 08:18] LABS: Influenza A QL RT-PCR Negative (Negative); Influenza B QL RT-PCR Negative (Negative); RSV RNA, RT-PCR Negative (Negative); SARS-CoV-2 RNA PCR Negative (Negative)
[2023-03-22 08:30] VITALS: BP 136/88; PULSE 84; RESP 16; TEMP 36.4; O2SAT 100
[2023-03-22 09:00] VITALS: BP 115/78
[2023-03-22 09:30] VITALS: BP 99/73; PULSE 78; RESP 16; O2SAT 97
[2023-03-22] MEDS: HEPARIN SODIUM LOCK FLUSH 500 UNITS/5 ML VIAL (09:55)
--- NOTE | 2023-03-22 09:58 | PC.NURSE ---
port de-accessed per protocol
== END 2023-03-22 09:58 | disposition home or self-care (01) ==
PROVIDERS: Emergency Provider Emergency Medicine
DX: R11.2 Nausea with vomiting, unspecified (principal); Z20.822 Contact with and (suspected) exposure to COVID-19; C85.93 Non-Hodgkin lymphoma, unspecified, intra-abdominal lymph nodes; Z86.14 Personal history of Methicillin resistant Staphylococcus aureus infection; R16.2 Hepatomegaly with splenomegaly, not elsewhere classified
CPT/HCPCS: 36415; 74176; 80053; 80307; 81003; 81025; 83605; 83690; 84100; 84145; 84550; 85025; 86703; 86803; 87340; 87637; 96361; 96374; 96375; 96376; 99284; G0432; J0780; J1170; J1642; J1885; J2405; J2765; J7030

== ENCOUNTER 2023-03-22 19:01 | Emergency (ER) | payer OTHER, SELFPAY ==
[2023-03-22 19:07] VITALS: BP 141/114; PULSE 56; RESP 20; TEMP 36.8; O2SAT 97
--- NOTE | 2023-03-22 19:16 | PC.NURSE ---
Upon walking into the room the patient stated to the nurse that Can you please just go get the doctor
[2023-03-22 19:22] VITALS: BP 129/88; PULSE 66; RESP 19; TEMP 36.8; O2SAT 99
--- NOTE | 2023-03-22 19:23 | PC.NURSE ---
Patient states I was here earlier and got some medications and then I was good for 8 hours. We are running on an 8 hour schedule .
--- NOTE | 2023-03-22 19:32 | ED.GENADULT ---
HPI - General Adult General Chief complaint: Nausea/Vomiting/Diarrhea Stated complaint: abdominal pain and nausea Time Seen by Provider: 03/22/23 19:21 History of Present Illness HPI narrative: The patient is a 33-year-old female who presents to emergency department with chief complaint of abdominal pain nausea and vomiting. The patient states this has been persistent and the patient has been seen in the emergency department multiple times including this morning the patient has had laboratory studies and had a CT scan done earlier this morning the patient is followed by Dr. Davila for stage IV lymphoma the patient last had chemo approximately 1 month ago the patient states that she has not been able to keep her Percocet down and is concerned that she may be in withdrawal the patient does report that she had previously had issue with narcotic pain medications but has been clean until she was started on her medications for pain control due to cancer. Patient reports that she is having pain on the right side of her abdomen she also reports that she has a rash that has been treated with both prednisone and hydroxyzine. Related Data Home Medications Medication Instructions Recorded Confirmed hydroxyzine HCl 25 mg tablet mg 03/21/23 methylprednisolone 4 mg tablets in mg 03/21/23 03/21/23 a dose pack Allergies Allergy/AdvReac Type Severity Reaction Status Date / Time azithromycin AdvReac Nausea Verified 03/22/23 06:58 codeine AdvReac Vomiting Verified 03/22/23 06:58 pecan nut AdvReac Nausea and Verified 03/22/23 06:58 Vomiting Review of Systems Review of Systems: A 10 system review of systems was completed on the patient and is negative except for what is stated in the HPI. Nursing and ancillary documentation was reviewed. 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 L Side. History of salpingo-oophorectomy Social History Social History Social History: Currently living with boyfriend. Full Code. Surrogate decision maker - Isaiah Tierneyrobbingena (step-dad), if unavailable then Marlene Tona (mom). Smoking packs per day: 1 Smoking cigarettes per day: 20.0 Years smoked: 11 Smoking pack-years: 11.00 Smoking status: Current every day smoker Tobacco type: cigarettes Alcohol intake: current Drinks per week: 1 Alcohol use details: social Substance use: former Substance use type: methamphetamine Other substance usage details: QUIT USING EARLY DEC 2022 D/T DIAGNOSIS & SURGERY Last use: last use of heroin-September 2014 Lack of Transportation: No Lack of Food: Never True Current Housing: I Have Housing Concerned About Future Housing: No Difficulty Paying Gas/Electric Bills: No Difficulty Paying for Meds: No Currently Unemployed: No Education: High School Diploma/GED Difficulty w/ Childcare or Family Care: No Living arrangements: with friend(s) Additional living arrangements comments: boyfriend Spiritual care concerns: No Exam Narrative: APPEARANCE: Well appearing, no pain, no distress, well-nourished. HEAD: normocephalic, atraumatic. EYES: PERRLA/EOMI, conjunctivae clear. NOSE: Normal no drainage EARS:TMS clear with good light reflex. THROAT: Pharynx clear, no exudate. NECK: Supple. No adenopathy, no masses. RESPIRATORY: Airway patent, respirations nonlabored. Clear to auscultation bilaterally, no rales, rhonchi, wheezing. CARDIOVASCULAR: Regular
[2023-03-22] MEDS: SODIUM CHLORIDE 0.9% IV 1,000 ML 999 ML IV CONT (19:46)
[2023-03-22] MEDS: HYDROmorphone HCL INJ (*CRX) 1 MG/ML SYR IV PUSH ×3 (19:47→21:13)
[2023-03-22] MEDS: PROCHLORPERAZINE EDISYLATE 10 MG/2 ML VIAL IV PUSH ×2 (19:47→21:14)
[2023-03-22 20:03] LABS: Basophils Percent Auto 0.5 % (0.2-1.2); Eosinophils Percent Auto 0.2 % (0-4.4); Hematocrit 30.2 % (37.0-47.0); Hemoglobin 9.6 g/dL (12.0-15.0); Immature Granulocyte Absolute 0.03 K/mm3 (0.00-0.031); Immature Granulocyte Percent A 0.5 % (0-0.5); Lymphocytes Absolute Auto 1.65 K/mm3 (0.9-3.2); Lymphocytes Percent Auto 25.3 % (18.3-44.2); Mean Corpuscular HGB Conc 31.8 g/dl (32-36); Mean Corpuscular Hemoglobin 28.1 pg (26-34); Mean Corpuscular Volume 88.3 fl (80-100); Mean Platelet Volume 9.5 fl (7.4-10.4); Monocytes Absolute Auto 1.4 K/mm3 (0.1-0.6); Monocytes Percent Auto 21.8 % (2.6-8.5); Neutrophils Absolute Auto 3.4 K/mm3 (1.3-6.7); Neutrophils Percent Auto 51.7 % (45.5-73.1); Platelet Count Result 517 k/mm3 (150-375); Red Blood Count 3.42 M/mm3 (4.2-5.4); Red Cell Distribution Width 18.9 % (11.5-14.5); White Blood Count 6.5 K/mm3 (4.5-10.0)
--- NOTE | 2023-03-22 20:07 | PC.NURSE ---
Patient states that This pain medication is not working. Last time it took three doses . EDP notified.
[2023-03-22 20:14] LABS: Appearance Urine Clear (Clear); Bilirubin Urine Negative (Negative); Blood Urine Negative (Negative); Color Urine Yellow (Yellow); Glucose Urine UA Negative (Negative); Ketones Urine Negative (Negative); Leukocyte Esterase Ur Negative LEU/UL (Negative); Nitrate Urine Negative (Negative); Protein Urine Negative (Negative); Specific Grav Ur 1.016 (1.001-1.035); pH Urine 6.5 (5.0-9.0)
[2023-03-22 20:17] LABS: Add Urine Microscopic? NO
[2023-03-22 20:18] LABS: Alanine Aminotransferase 33 U/L (6-35); Albumin Level 3.8 g/dL (3.5-5.1); Alkaline Phosphatase 83 U/L (38-126); Anion Gap 6 mmol/L (8-16); Aspartate Amino Transferase 38 U/L (14-36); Bilirubin,Total 0.4 mg/dL (0.2-1.3); Blood Urea Nitrogen 9 mg/dL (7-17); Carbon Dioxide 25 mmol/L (22-30); Chloride 105 mmol/L (98-107); Estimated CRCL calculation 91 ml/min; Estimated Glomerular Filt Rate > 60; Ethanol < 10 mg/dL (<10); Glucose 113 mg/dL (65-110); Potassium 3.9 mmol/L (3.4-5.0); Sodium 136 mmol/L (137-145)
[2023-03-22 20:19] LABS: Lactic Acid Reflex 0.8 mmol/L (0.7-2.0)
[2023-03-22] MEDS: KETOROLAC 15 MG/ML VIAL (*BKC) IV PUSH (20:28)
[2023-03-22 20:30] LABS: Amphetamine Screen Urine Negative (Negative); Barbiturate Screen Urine Negative (Negative); Benzodiazepines Screen Urine Negative (Negative); Cannabinoid Screen Urine Positive (Negative); Cocaine Screen Urine Negative (Negative); Methadone Screen Urine Negative (Negative); Opiate Screen Urine Positive (Negative); Phencyclidine Screen Urine Negative (Negative)
[2023-03-22 20:35] LABS: Procalcitonin 0.1 ng/mL
[2023-03-22 20:45] LABS: Phosphorus 3.5 mg/dL (2.5-4.5); Uric Acid 3.5 mg/dL (2.5-7.5)
--- NOTE | 2023-03-22 21:03 | PC.NURSE ---
Patient stated her pain was 7/10, but still uncomfortable. Notified EDP Dr. Rojas.
[2023-03-22] MEDS: HEPARIN SODIUM LOCK FLUSH 500 UNITS/5 ML SYRINGE IV PUSH (21:26)
[2023-03-22 21:30] VITALS: BP 130/79; PULSE 72; RESP 21; TEMP 36.6; O2SAT 99
[2023-03-22 22:25] LABS: Hepatitis B Surface Antigen Negative (Negative)
[2023-03-22 22:42] LABS: HIV 1/2 Ab P24 Ag Result Negative (Negative); Hepatitis C Virus Antibody Negative (Negative)
== END 2023-03-22 21:31 | disposition home or self-care (01) ==
PROVIDERS: Emergency Provider Emergency Medicine
DX: R11.2 Nausea with vomiting, unspecified (principal); R10.9 Unspecified abdominal pain; C85.90 Non-Hodgkin lymphoma, unspecified, unspecified site; F17.210 Nicotine dependence, cigarettes, uncomplicated; Z86.14 Personal history of Methicillin resistant Staphylococcus aureus infection; Z79.60 Long term (current) use of unspecified immunomodulators and immunosuppressants
CPT/HCPCS: 36415; 80053; 80307; 81003; 81025; 83605; 84100; 84145; 84550; 85025; 86703; 86803; 87340; 96361; 96374; 96375; 96376; 99284; G0432; J0780; J1170; J1885; J7030; J7050

== ENCOUNTER 2023-03-23 07:10 | Emergency (ER) | payer OTHER, SELFPAY ==
[2023-03-23 07:10] VITALS: BP 124/68; PULSE 94; RESP 20; TEMP 36.6; O2SAT 100
--- NOTE | 2023-03-23 07:13 | ED.GENADULT ---
HPI - General Adult General Chief complaint: Unspecified Stated complaint: pain all over Time Seen by Provider: 03/23/23 07:11 History of Present Illness HPI narrative: 33-year-old female presenting to the emergency department for evaluation after having an episode of bowel incontinence. Patient has had multiple visits to the emergency department over the last few days. patient has been having improving rash that is being treated with prednisone and hydroxyzine. Patient suspects this is an allergic reaction to some of her chemotherapy medications. Patient was previously offered admission but patient declined. Patient was seen last night in the emergency department and the hospitalist did not feel that she met criteria for admission and ultimately patient requested to be discharged to home. Patient returned by ambulance again to the emergency department after having a bout of bowel incontinence. Patient states he does have follow-up scheduled with Dr. Hernandes on Friday. Upon arrival to the emergency department patient is resting comfortably and is in no distress. Related Data Home Medications Medication Instructions Recorded Confirmed hydroxyzine HCl 25 mg tablet mg 03/21/23 methylprednisolone 4 mg tablets in mg 03/21/23 03/21/23 a dose pack Allergies Allergy/AdvReac Type Severity Reaction Status Date / Time azithromycin AdvReac Nausea Verified 03/22/23 06:58 codeine AdvReac Vomiting Verified 03/22/23 06:58 pecan nut AdvReac Nausea and Verified 03/22/23 06:58 Vomiting Review of Systems Review of Systems: All systems reviewed & are unremarkable except as noted in HPI and below PMFSH Past Medical History Medical History Anxiety Atypical bipolar disorder Drug-induced psychotic disorder Ectopic History of heroin use Methamphetamine abuse, episodic MRSA infection buttock and leg during last lengthy incarceration (2020) Surgical History Surgical History 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 L Side. History of salpingo-oophorectomy Social History Social History Social History: Currently living with boyfriend. Full Code. Surrogate decision maker - Isaiah Beverly (step-dad), if unavailable then Marlene Carbone (mom). Smoking packs per day: 1 Smoking cigarettes per day: 20.0 Years smoked: 11 Smoking pack-years: 11.00 Smoking status: Current every day smoker Tobacco type: cigarettes Alcohol intake: current Drinks per week: 1 Alcohol use details: social Substance use: former Substance use type: methamphetamine Other substance usage details: QUIT USING EARLY DEC 2022 D/T DIAGNOSIS & SURGERY Last use: last use of heroin-September 2014 Lack of Transportation: No Lack of Food: Never True Current Housing: I Have Housing Concerned About Future Housing: No Difficulty Paying Gas/Electric Bills: No Difficulty Paying for Meds: No Currently Unemployed: No Education: High School Diploma/GED Difficulty w/ Childcare or Family Care: No Living arrangements: with friend(s) Additional living arrangements comments: boyfriend Spiritual care concerns: No Exam Narrative: APPEARANCE: Well appearing, no pain, no distress, well-nourished. HEAD: normocephalic, atraumatic. EYES: PERRLA/EOMI, conjunctivae clear. NOSE: Normal no drainage EARS:TMS clear with good light reflex. THROAT: Pharynx clear, no exudate. NECK: Supple. No adenopathy, no masses. RESPIRATORY: Airway patent, respirations nonlabored. Clear to auscultation bilaterally, no rales, rhonchi, wheezing. CARDIOVASCULAR: Regular rate and rhythm without murmurs rubs or gallops. ABDOMINAL: Soft, nontender, nondistended, normal bowel sounds MUSCULOSKELETAL: Moves all extremities
[2023-03-23] MEDS: KETOROLAC 15 MG/ML VIAL (*BKC) IV PUSH (07:29)
[2023-03-23] MEDS: ONDANSETRON INJ 4 MG/2 ML VIAL IV PUSH (07:30)
[2023-03-23 07:37] LABS: Basophils Absolute Auto 0.1 K/mm3 (0.0-0.1); Eosinophils Percent Auto 0.2 % (0-4.4); Hematocrit 34.1 % (37.0-47.0); Hemoglobin 10.6 g/dL (12.0-15.0); Immature Granulocyte Absolute 0.03 K/mm3 (0.00-0.031); Immature Granulocyte Percent A 0.6 % (0-0.5); Lymphocytes Absolute Auto 1.29 K/mm3 (0.9-3.2); Lymphocytes Percent Auto 25.4 % (18.3-44.2); Mean Corpuscular HGB Conc 31.1 g/dl (32-36); Mean Corpuscular Hemoglobin 28.2 pg (26-34); Mean Corpuscular Volume 90.7 fl (80-100); Mean Platelet Volume 9.5 fl (7.4-10.4); Monocytes Absolute Auto 0.9 K/mm3 (0.1-0.6); Monocytes Percent Auto 17.9 % (2.6-8.5); Neutrophils Absolute Auto 2.8 K/mm3 (1.3-6.7); Neutrophils Percent Auto 54.9 % (45.5-73.1); Platelet Count Result 492 k/mm3 (150-375); Red Blood Count 3.76 M/mm3 (4.2-5.4); Red Cell Distribution Width 19.5 % (11.5-14.5); White Blood Count 5.1 K/mm3 (4.5-10.0)
[2023-03-23 07:45] LABS: Lactic Acid Reflex 1.4 mmol/L (0.7-2.0)
[2023-03-23 07:46] LABS: Alanine Aminotransferase 31 U/L (6-35); Albumin Level 4.1 g/dL (3.5-5.1); Alkaline Phosphatase 90 U/L (38-126); Anion Gap 8 mmol/L (8-16); Aspartate Amino Transferase 33 U/L (14-36); Bilirubin,Total 0.5 mg/dL (0.2-1.3); Blood Urea Nitrogen 11 mg/dL (7-17); Calcium 9.2 mg/dL (8.4-10.2); Carbon Dioxide 24 mmol/L (22-30); Chloride 105 mmol/L (98-107); Estimated Glomerular Filt Rate > 60; Glucose 95 mg/dL (65-110); Lipase 348 U/L (23-300); Potassium 4.2 mmol/L (3.4-5.0); Sodium 137 mmol/L (137-145)
[2023-03-23 07:47] LABS: Prothrombin Time 14.2 Seconds (11.1-14.7)
[2023-03-23 07:59] LABS: Partial Thromboplastin Time 25.4 SECONDS (22.3-36.8)
== END 2023-03-23 08:20 | disposition left against medical advice (07) ==
LOC: ANHED 07:35
PROVIDERS: Emergency Provider Emergency Medicine
DX: R10.9 Unspecified abdominal pain (principal); C85.90 Non-Hodgkin lymphoma, unspecified, unspecified site; F17.210 Nicotine dependence, cigarettes, uncomplicated; Z86.14 Personal history of Methicillin resistant Staphylococcus aureus infection; Z90.79 Acquired absence of other genital organ(s); Z79.60 Long term (current) use of unspecified immunomodulators and immunosuppressants
CPT/HCPCS: 36415; 80053; 83605; 83690; 85025; 85610; 85730; 96374; 96375; 99284; J1885; J2405

== ENCOUNTER 2023-03-23 21:45 | Emergency (ER) | payer OTHER, SELFPAY ==
[2023-03-23 21:51] VITALS: BP 141/92; PULSE 67; RESP 16; TEMP 37.1; O2SAT 100
--- NOTE | 2023-03-23 23:04 | ED.NAVMDI ---
HPI - Nausea/Vomiting/Diarrhea General Chief complaint: Nausea/Vomiting/Diarrhea Stated complaint: n/v/d Time Seen by Provider: 03/23/23 22:49 History of Present Illness HPI Narrative: 33-year-old female who is currently undergoing chemotherapy for stage IV lymphoma with Dr. Hernandes and hx of prior heroin and meth abuse reports for evaluation to the emergency department for generalized abdominal pain, nausea, vomiting and diarrhea for the past 3 days. the patient has been seen in the emergency department 6x in the past 3 days. She had a CT abdomen pelvis performed yesterday which showed marked abdominal and pelvic lymphadenopathy suspicious for lymphoma, moderate ascites and Persistent hepatosplenomegaly. Labs from her visit this morning reviewed which shows a stable hemoglobin of 9.6. Her lipase was bumped to 340, however the patient had left AMA prior to results. CT scan yesterday show no evidence of pancreatitis. The patient reports now for persistent generalized abdominal pain, nausea and vomiting. She does states she developed watery diarrhea today. she reports intermittent fevers secondary to chemotherapy. Denies cough or congestion, dysuria or hematuria. Patient states she is prescribed Phenergan, Zofran and Percocet 10 mg which she has been taking without improvement in symptoms. she has been taking hydroxyzine for a pruritic rash to her extremities secondary to chemo treatment. Denies recent antibiotic use, travel or surgeries. She is scheduled to see Dr. Hernandes and have another round of chemo this week. She is requesting dilaudid for pain control. Related Data Home Medications Medication Instructions Recorded Confirmed hydroxyzine HCl 25 mg tablet mg 03/21/23 methylprednisolone 4 mg tablets in mg 03/21/23 03/21/23 a dose pack Allergies Allergy/AdvReac Type Severity Reaction Status Date / Time azithromycin AdvReac Nausea Verified 03/23/23 21:45 codeine AdvReac Vomiting Verified 03/23/23 21:45 pecan nut AdvReac Nausea and Verified 03/23/23 21:45 Vomiting Review of Systems Review of Systems: CONSTITUTIONAL: Denies fever, chills, or sweats. EYES: Denies visual changes, redness, or discharge. ENT: Denies rhinorrhea, congestion, sore throat, or otalgia. CARDIOVASCULAR: Denies chest pain, palpitations, or edema. RESPIRATORY: Denies cough or dyspnea. GASTROINTESTINAL: See HPI GENITOURINARY: Denies dysuria or hematuria. SKIN: Denies rash or itching. MUSCULOSKELETAL: Denies back pain, joint pain, or myalgia. NEUROLOGIC: Denies headache, numbness, or weakness. PSYCHIATRIC: Denies anxiety or depression. 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 L Side. History of salpingo-oophorectomy Social History Social History Social History: Currently living with boyfriend. Full Code. Surrogate decision maker - Isaiah Beverly (step-dad), if unavailable then Marlene Carbone (mom). Smoking packs per day: 1 Smoking cigarettes per day: 20.0 Years smoked: 11 Smoking pack-years: 11.00 Smoking status: Current every day smoker Tobacco type: cigarettes Alcohol intake: current Drinks per week: 1 Alcohol use details: social Substance use: former Substance use type: methamphetamine Other substance usage details: QUIT USING EARLY DEC 2022 D/T DIAGNOSIS & SURGERY Last use: last use of heroin-September 2014 Lack of Transportation: No Lack of Food: Never True Current Iam
[2023-03-23] MEDS: SODIUM CHLORIDE 0.9% IV 1,000 ML 999 ML IV CONT (23:21)
[2023-03-23] MEDS: ONDANSETRON INJ 4 MG/2 ML VIAL IV PUSH (23:27)
[2023-03-23] MEDS: KETOROLAC 30 MG/ML VIAL (*BKC) IV PUSH (23:29)
[2023-03-23] MEDS: FAMOTIDINE 20 MG/2 ML VIAL IV PUSH (23:29)
[2023-03-23 23:53] LABS: Basophils Absolute Auto 0.1 K/mm3 (0.0-0.1); Basophils Percent Auto 0.9 % (0.2-1.2); Eosinophils Percent Auto 0.5 % (0-4.4); Hematocrit 32.2 % (37.0-47.0); Hemoglobin 10.1 g/dL (12.0-15.0); Immature Granulocyte Absolute 0.03 K/mm3 (0.00-0.031); Immature Granulocyte Percent A 0.5 % (0-0.5); Lymphocytes Absolute Auto 0.67 K/mm3 (0.9-3.2); Lymphocytes Percent Auto 11.7 % (18.3-44.2); Mean Corpuscular HGB Conc 31.4 g/dl (32-36); Mean Corpuscular Hemoglobin 28.6 pg (26-34); Mean Corpuscular Volume 91.2 fl (80-100); Mean Platelet Volume 9.4 fl (7.4-10.4); Monocytes Absolute Auto 0.5 K/mm3 (0.1-0.6); Monocytes Percent Auto 8.9 % (2.6-8.5); Neutrophils Absolute Auto 4.4 K/mm3 (1.3-6.7); Neutrophils Percent Auto 77.5 % (45.5-73.1); Platelet Count Result 501 k/mm3 (150-375); Red Blood Count 3.53 M/mm3 (4.2-5.4); Red Cell Distribution Width 19.6 % (11.5-14.5); White Blood Count 5.7 K/mm3 (4.5-10.0)
[2023-03-23 23:55] LABS: Appearance Urine Clear (Clear); Bilirubin Urine Negative (Negative); Blood Urine Negative (Negative); Color Urine Yellow (Yellow); Glucose Urine UA Negative (Negative); Ketones Urine Negative (Negative); Leukocyte Esterase Ur Negative LEU/UL (Negative); Nitrate Urine Negative (Negative); Protein Urine Negative (Negative); Urobilinogen Urine 0.2 mg/dL (<2.0); pH Urine 5.5 (5.0-9.0)
[2023-03-23 23:57] LABS: Add Urine Microscopic? NO; Specific Grav Ur 1.067 (1.001-1.035)
[2023-03-24] LABS: Alanine Aminotransferase 27 U/L (6-35); Albumin Level 4.2 g/dL (3.5-5.1); Alkaline Phosphatase 89 U/L (38-126); Anion Gap 10 mmol/L (8-16); Aspartate Amino Transferase 48 U/L (14-36); Bilirubin,Total 0.5 mg/dL (0.2-1.3); Blood Urea Nitrogen 9 mg/dL (7-17); Calcium 9.3 mg/dL (8.4-10.2); Carbon Dioxide 21 mmol/L (22-30); Chloride 106 mmol/L (98-107); Estimated CRCL calculation 91 ml/min; Estimated Glomerular Filt Rate > 60; Glucose 109 mg/dL (65-110); Lipase 331 U/L (23-300); Potassium 3.9 mmol/L (3.4-5.0); Sodium 137 mmol/L (137-145)
[2023-03-24] MEDS: LORazepam INJ (*CRX) 2 MG/ML VIAL 0.5 MG IV PUSH (00:20)
[2023-03-24] MEDS: SODIUM CHLORIDE 0.9% IV 1,000 ML 999 ML IV CONT (00:21)
[2023-03-24] MEDS: diphenhydrAMINE HCl INJ 50 MG/ML VIAL 25 MG IV PUSH (00:21)
[2023-03-24] MEDS: PROMETHAZINE HCL 25 MG/ML AMPUL 12.5 MG IV PUSH (00:23)
[2023-03-24 00:33] LABS: Toxigenic C. Diff NEGATIVE (NEGATIVE)
[2023-03-24] MEDS: HYDROmorphone HCL INJ (*CRX) 1 MG/ML SYR 0.5 MG IM (01:36)
[2023-03-24] MEDS: ONDANSETRON INJ 4 MG/2 ML VIAL IV PUSH (01:36)
[2023-03-24 02:10] VITALS: BP 143/83; PULSE 84; RESP 15; O2SAT 100
== END 2023-03-24 01:00 | disposition home or self-care (01) ==
PROVIDERS: Emergency Provider Physician Assistant
DX: K52.9 Noninfective gastroenteritis and colitis, unspecified (principal); R10.13 Epigastric pain; C85.90 Non-Hodgkin lymphoma, unspecified, unspecified site; Z86.14 Personal history of Methicillin resistant Staphylococcus aureus infection; Z79.60 Long term (current) use of unspecified immunomodulators and immunosuppressants
CPT/HCPCS: 36415; 80053; 80307; 81003; 81025; 83605; 83690; 85025; 85610; 85730; 87045; 87427; 87449; 87493; 89055; 96361; 96372; 96374; 96375; 99283; 99284; A9270; J1170; J1200; J1885; J2060; J2405; J2550; J7030

== ENCOUNTER 2023-03-24 13:24 | Emergency (ER) | payer OTHER, SELFPAY ==
[2023-03-24 13:45] VITALS: BP 95/65; PULSE 85; RESP 18; TEMP 37.3; O2SAT 100
[2023-03-24 13:56] LABS: Basophils Percent Auto 0.6 % (0.2-1.2); Hematocrit 31.1 % (37.0-47.0); Immature Granulocyte Absolute 0.05 K/mm3 (0.00-0.031); Immature Granulocyte Percent A 0.8 % (0-0.5); Lymphocytes Absolute Auto 0.94 K/mm3 (0.9-3.2); Lymphocytes Percent Auto 14.7 % (18.3-44.2); Mean Corpuscular HGB Conc 32.2 g/dl (32-36); Mean Corpuscular Hemoglobin 28.8 pg (26-34); Mean Corpuscular Volume 89.6 fl (80-100); Mean Platelet Volume 8.8 fl (7.4-10.4); Monocytes Absolute Auto 0.9 K/mm3 (0.1-0.6); Monocytes Percent Auto 13.8 % (2.6-8.5); Neutrophils Absolute Auto 4.5 K/mm3 (1.3-6.7); Neutrophils Percent Auto 70.1 % (45.5-73.1); Platelet Count Result 451 k/mm3 (150-375); Red Blood Count 3.47 M/mm3 (4.2-5.4); Red Cell Distribution Width 19.5 % (11.5-14.5); White Blood Count 6.4 K/mm3 (4.5-10.0)
[2023-03-24 14:12] LABS: Alanine Aminotransferase 25 U/L (6-35); Albumin Level 4.3 g/dL (3.5-5.1); Alkaline Phosphatase 77 U/L (38-126); Anion Gap 8 mmol/L (8-16); Aspartate Amino Transferase 29 U/L (14-36); Bilirubin,Total 0.6 mg/dL (0.2-1.3); Blood Urea Nitrogen 7 mg/dL (7-17); Calcium 9.3 mg/dL (8.4-10.2); Carbon Dioxide 23 mmol/L (22-30); Chloride 106 mmol/L (98-107); Estimated CRCL calculation 94 ml/min; Estimated Glomerular Filt Rate > 60; Glucose 96 mg/dL (65-110); Lipase 392 U/L (23-300); Potassium 4.2 mmol/L (3.4-5.0); Sodium 137 mmol/L (137-145)
--- NOTE | 2023-03-24 15:05 | ED.NAVMDI ---
HPI - Nausea/Vomiting/Diarrhea General Chief complaint: Nausea/Vomiting/Diarrhea Stated complaint: N/V Source: patient and old records reviewed Mode of arrival: ambulatory Limitations: no limitations History of Present Illness HPI Narrative: Patient is a 33 y/o female, with PMH of Stage IV lymphoma, currently undergoing chemotherapy under Dr. Hernandes, presents to the ED with c/o abdominal pain, N/V, rash, sores. Patient has been seen in our ED 7 times since 03/15. She c/o constant N/V for the past 4 days, unable to keep down any food or drink. Reports constant dull R sided abd pain r/t her cancer, as well as new L upper abdominal pain for the last 2 days. Patient is Rx'd percoset for her pain. States she has been taking these more than Rx'd due to persistent vomiting. States she will run out of percoset 5 days before her new Rx is able to be filled. Also reports persistent mouth sores and a diffuse rash that began 6 days ago. Has taking benadryl, hydroxyzine, and steroids for this, but she states she has been unable to keep down the medications. Denies fevers. Patient contacted her oncology office today and was advised to come to the hospital to be admitted. Last chemotherapy was 1 month, 2 weeks ago. Scheduled to undergo continued treatment on . Related Data Home Medications Medication Instructions Recorded Confirmed hydroxyzine HCl 25 mg tablet mg 03/21/23 methylprednisolone 4 mg tablets in mg 03/21/23 03/21/23 a dose pack Allergies Allergy/AdvReac Type Severity Reaction Status Date / Time azithromycin AdvReac Nausea Verified 03/23/23 21:45 codeine AdvReac Vomiting Verified 03/23/23 21:45 pecan nut AdvReac Nausea and Verified 03/23/23 21:45 Vomiting Review of Systems Review of Systems: CONSTITUTIONAL: Denies fever, chills, or sweats. ENT: See HPI CARDIOVASCULAR: Denies chest pain, palpitations, or edema. RESPIRATORY: Denies cough or dyspnea. 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 L Side. History of salpingo-oophorectomy Social History Social History Social History: Currently living with boyfriend. Full Code. Surrogate decision maker - Isaiah Beverly (step-dad), if unavailable then Marlene Carbone (mom). Smoking packs per day: 1 Smoking cigarettes per day: 20.0 Years smoked: 11 Smoking pack-years: 11.00 Smoking status: Current every day smoker Tobacco type: cigarettes Alcohol intake: current Drinks per week: 1 Alcohol use details: social Substance use: former Substance use type: methamphetamine Other substance usage details: QUIT USING EARLY DEC 2022 D/T DIAGNOSIS & SURGERY Last use: last use of heroin-September 2014 Lack of Transportation: No Lack of Food: Never True Current Housing: I Have Housing Concerned About Future Housing: No Difficulty Paying Gas/Electric Bills: No Difficulty Paying for Meds: No Currently Unemployed: No Education: High School Diploma/GED Difficulty w/ Childcare or Family Care: No Living arrangements: with friend(s) Additional living arrangements comments: boyfriend Spiritual care concerns: No Exam Narrative: GENERAL: Well appearing, thin, non-toxic, in no acute distress. HEAD: Normocephalic, atraumatic. ENT: Mucous membranes dry. Scattered aphthous ulcers to upper and lower lips. No active
[2023-03-24 15:12] VITALS: BP 136/88; PULSE 96; RESP 20; TEMP 36.2; O2SAT 94
[2023-03-24] MEDS: ONDANSETRON HCL ODT 4 MG TABLET PO (15:18)
[2023-03-24 15:46] LABS: Lactic Acid Reflex 1.3 mmol/L (0.7-2.0)
[2023-03-24 15:54] LABS: Amphetamine Screen Urine Negative (Negative); Barbiturate Screen Urine Negative (Negative); Benzodiazepines Screen Urine Negative (Negative); Cannabinoid Screen Urine Positive (Negative); Cocaine Screen Urine Negative (Negative); Methadone Screen Urine Negative (Negative); Opiate Screen Urine Negative (Negative); Phencyclidine Screen Urine Negative (Negative)
--- NOTE | 2023-03-24 15:54 | PC.NURSE ---
Pt to the intake desk and states that she is going to go home. Pt states she is feeling better and hasn't vomited since she has been here. She states she is going to go home and rest and take her zofran at home. pt ambulated to the exit with no difficulty
== END 2023-03-24 15:54 | disposition left against medical advice (07) ==
PROVIDERS: Emergency Medicine; Emergency Provider Physician Assistant
DX: R11.2 Nausea with vomiting, unspecified (principal); R10.9 Unspecified abdominal pain; C85.90 Non-Hodgkin lymphoma, unspecified, unspecified site; Z86.14 Personal history of Methicillin resistant Staphylococcus aureus infection
CPT/HCPCS: 36415; 80053; 80307; 83605; 83690; 85025; 99283; A9270

== ENCOUNTER 2023-03-29 02:00 | Emergency (ER) | payer OTHER, SELFPAY ==
--- NOTE | ~2023-03-29 | XR_ITS ---
EXAMINATION: XR chest 1V portable 03/29/2023 02:41 INDICATION: Cough. Stage IV lymphoma PROCEDURE: AP portable chest COMPARISON: Comparison to multiple prior studies sequentially, with oldest reviewed study dated 04/27. FINDINGS: The lungs are clear. The cardiomediastinal silhouette is within normal limits. There are no pleural effusions. There is no pneumothorax suspected. Port catheter tip near the cavoatrial frank ction. IMPRESSION: 1: NO ACUTE CARDIOPULMONARY DISEASE. Reviewed, dictated and finalized at location [facility]
[2023-03-29 02:04] VITALS: BP 126/87; PULSE 87; RESP 14; TEMP 36.3; O2SAT 100
--- NOTE | 2023-03-29 02:06 | ED.ABDPAIN ---
HPI - Abdominal Pain General Chief Complaint: Abdominal Pain Stated Complaint: ABD PAIN/N/V History of Present Illness HPI narrative: 33-year-old female presents to the emergency department for evaluation nausea vomiting diarrhea and abdominal pain. Patient does have lymphoma and follows up with Dr Hernandes. Patient has had multiple visits to regional emergency department over the last few weeks. EMS crew states that they are taking her to approximately to emergency department today. Patient did go to [facility] this morning. Patient states that she does not have any Percocet at home because used them faster than prescribed. Related Data Home Medications Medication Instructions Recorded Confirmed hydroxyzine HCl 25 mg tablet 25 mg PO TID 03/21/23 03/27/23 methylprednisolone 4 mg tablets in mg 03/21/23 03/21/23 a dose pack Allergies Allergy/AdvReac Type Severity Reaction Status Date / Time azithromycin AdvReac Nausea Verified 03/27/23 12:29 codeine AdvReac Vomiting Verified 03/27/23 12:29 diphenhydramine AdvReac Jittery Verified 03/29/23 02:08 [From Benadryl] pecan nut AdvReac Nausea and Verified 03/27/23 12:29 Vomiting Review of Systems Review of Systems: All systems reviewed & are unremarkable except as noted in HPI and below PMFSH Past Medical History Medical History Anxiety Atypical bipolar disorder Drug-induced psychotic disorder Ectopic History of heroin use Methamphetamine abuse, episodic MRSA infection buttock and leg during last lengthy incarceration (2020) Surgical History Surgical History History of breast surgery 2018 or 2019, 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 L Side. History of salpingo-oophorectomy Social History Social History Social History: Currently living with boyfriend. Full Code. Surrogate decision maker - Isaiah Beverly (step-dad), if unavailable then Marlene Carbone (mom). Smoking packs per day: 1 Smoking cigarettes per day: 20.0 Years smoked: 11 Smoking pack-years: 11.00 Smoking status: Current every day smoker Tobacco type: cigarettes Alcohol intake: current Drinks per week: 1 Alcohol use details: social Substance use: former Substance use type: methamphetamine Other substance usage details: QUIT USING EARLY DEC 2022 D/T DIAGNOSIS & SURGERY Last use: last use of heroin-September 2014 Lack of Transportation: No Lack of Food: Never True Current Housing: I Have Housing Concerned About Future Housing: No Difficulty Paying Gas/Electric Bills: No Difficulty Paying for Meds: No Currently Unemployed: No Education: High School Diploma/GED Difficulty w/ Childcare or Family Care: No Living arrangements: with friend(s) Additional living arrangements comments: boyfriend Spiritual care concerns: No Exam Narrative: APPEARANCE: Well appearing, no pain, no distress, well-nourished. HEAD: normocephalic, atraumatic. EYES: PERRLA/EOMI, conjunctivae clear. NOSE: Normal no drainage EARS:TMS clear with good light reflex. THROAT: Pharynx clear, no exudate. NECK: Supple. No adenopathy, no masses. RESPIRATORY: Airway patent, respirations nonlabored. Clear to auscultation bilaterally, no rales, rhonchi, wheezing. CARDIOVASCULAR: Regular rate and rhythm without murmurs rubs or gallops. ABDOMINAL: Soft, nontender, nondistended, normal bowel sounds MUSCULOSKELETAL: Moves all extremities. Strength/ROM intact, No edema, No calf tenderness. NEURO: Alert. Cranial nerves II through XII intact. Grossly intact SKIN: Warm, dry. Normal Color Course Course Emergency Course: 33-year-old female presents emergency for evaluation nausea vomiting and abdominal pain. Patient had no nausea or vomiting while in the ED patient is afebri
[2023-03-29] MEDS: KETOROLAC 15 MG/ML VIAL (*BKC) IV PUSH (02:26)
[2023-03-29] MEDS: SODIUM CHLORIDE 0.9% IV 1,000 ML 999 ML IV CONT (02:26)
[2023-03-29] MEDS: METOCLOPRAMIDE HCL INJ 10 MG/2 ML VIAL IV PUSH (02:26)
[2023-03-29 02:41] LABS: Basophils Absolute Auto 0.1 K/mm3 (0.0-0.1); Eosinophils Percent Auto 0.1 % (0-4.4); Hematocrit 41.8 % (37.0-47.0); Hemoglobin 13.5 g/dL (12.0-15.0); Immature Granulocyte Absolute 0.02 K/mm3 (0.00-0.031); Immature Granulocyte Percent A 0.3 % (0-0.5); Lymphocytes Absolute Auto 1.45 K/mm3 (0.9-3.2); Lymphocytes Percent Auto 20.1 % (18.3-44.2); Mean Corpuscular HGB Conc 32.3 g/dl (32-36); Mean Corpuscular Hemoglobin 28.5 pg (26-34); Mean Corpuscular Volume 88.4 fl (80-100); Mean Platelet Volume 9.7 fl (7.4-10.4); Monocytes Absolute Auto 0.9 K/mm3 (0.1-0.6); Monocytes Percent Auto 12.1 % (2.6-8.5); Neutrophils Absolute Auto 4.8 K/mm3 (1.3-6.7); Neutrophils Percent Auto 66.4 % (45.5-73.1); Platelet Count Result 420 k/mm3 (150-375); Red Blood Count 4.73 M/mm3 (4.2-5.4); Red Cell Distribution Width 18.6 % (11.5-14.5); White Blood Count 7.2 K/mm3 (4.5-10.0)
[2023-03-29 02:57] LABS: Alanine Aminotransferase 20 U/L (6-35); Albumin Level 4.2 g/dL (3.5-5.1); Alkaline Phosphatase 71 U/L (38-126); Anion Gap 9 mmol/L (8-16); Aspartate Amino Transferase 27 U/L (14-36); Bilirubin,Total 0.4 mg/dL (0.2-1.3); Blood Urea Nitrogen 13 mg/dL (7-17); Carbon Dioxide 28 mmol/L (22-30); Chloride 100 mmol/L (98-107); Estimated CRCL calculation 89 ml/min; Estimated Glomerular Filt Rate > 60; Glucose 90 mg/dL (65-110); Potassium 4.1 mmol/L (3.4-5.0); Sodium 137 mmol/L (137-145)
[2023-03-29 03:16] LABS: Influenza A QL RT-PCR Negative (Negative); Influenza B QL RT-PCR Negative (Negative); RSV RNA, RT-PCR Negative (Negative); SARS-CoV-2 RNA PCR Positive (Negative)
[2023-03-29] MEDS: HYDROmorphone HCL INJ (*CRX) 1 MG/ML SYR 0.5 MG IV PUSH (04:14)
[2023-03-29 04:30] VITALS: BP 128/87; PULSE 78; RESP 16; O2SAT 97
== END 2023-03-29 04:45 | disposition home or self-care (01) ==
PROVIDERS: Emergency Provider Emergency Medicine
DX: U07.1 COVID-19 (principal); R11.2 Nausea with vomiting, unspecified; F17.210 Nicotine dependence, cigarettes, uncomplicated; F41.9 Anxiety disorder, unspecified
CPT/HCPCS: 36415; 71045; 80053; 81003; 83690; 83735; 85025; 87637; 96361; 96374; 96375; 99284; J1170; J1885; J2405; J2765; J7030

== ENCOUNTER 2023-03-29 10:43 | Emergency (ER) | payer OTHER, SELFPAY ==
[2023-03-29 11:00] VITALS: BP 137/86; PULSE 78; RESP 16; TEMP 37.2; O2SAT 100
--- NOTE | 2023-03-29 11:04 | PC.NURSE ---
Outside to smoke.
[2023-03-29 13:32] LABS: Basophils Percent Auto 0.5 % (0.2-1.2); Hematocrit 40.2 % (37.0-47.0); Hemoglobin 12.6 g/dL (12.0-15.0); Immature Granulocyte Absolute 0.03 K/mm3 (0.00-0.031); Immature Granulocyte Percent A 0.4 % (0-0.5); Lymphocytes Percent Auto 12.1 % (18.3-44.2); Mean Corpuscular HGB Conc 31.3 g/dl (32-36); Mean Corpuscular Hemoglobin 28.1 pg (26-34); Mean Corpuscular Volume 89.5 fl (80-100); Mean Platelet Volume 9.2 fl (7.4-10.4); Monocytes Absolute Auto 0.6 K/mm3 (0.1-0.6); Monocytes Percent Auto 7.3 % (2.6-8.5); Neutrophils Absolute Auto 6.6 K/mm3 (1.3-6.7); Neutrophils Percent Auto 79.7 % (45.5-73.1); Platelet Count Result 459 k/mm3 (150-375); Red Blood Count 4.49 M/mm3 (4.2-5.4); Red Cell Distribution Width 18.6 % (11.5-14.5); White Blood Count 8.3 K/mm3 (4.5-10.0)
[2023-03-29 13:40] LABS: Alanine Aminotransferase 21 U/L (6-35); Albumin Level 4.7 g/dL (3.5-5.1); Alkaline Phosphatase 80 U/L (38-126); Anion Gap 10 mmol/L (8-16); Aspartate Amino Transferase 25 U/L (14-36); Bilirubin,Total 0.5 mg/dL (0.2-1.3); Blood Urea Nitrogen 10 mg/dL (7-17); Calcium 9.6 mg/dL (8.4-10.2); Carbon Dioxide 26 mmol/L (22-30); Chloride 100 mmol/L (98-107); Estimated CRCL calculation 86 ml/min; Estimated Glomerular Filt Rate > 60; Glucose 105 mg/dL (65-110); Lipase 217 U/L (23-300); Magnesium 2.1 mg/dL (1.6-2.3); Potassium 4.4 mmol/L (3.4-5.0); Sodium 136 mmol/L (137-145)
[2023-03-29 13:53] LABS: Appearance Urine Clear (Clear); Bilirubin Urine Negative (Negative); Blood Urine Negative (Negative); Color Urine Yellow (Yellow); Glucose Urine UA Negative (Negative); Ketones Urine Negative (Negative); Leukocyte Esterase Ur Negative LEU/UL (Negative); Nitrate Urine Negative (Negative); Protein Urine Negative (Negative); Specific Grav Ur 1.013 (1.001-1.035); Urobilinogen Urine 0.2 mg/dL (<2.0); pH Urine 7.5 (5.0-9.0)
--- NOTE | 2023-03-29 14:07 | ED.GENADULT ---
HPI - General Adult General Chief complaint: Weakness Stated complaint: covid, weak Time Seen by Provider: 03/29/23 12:59 Source: patient and old records reviewed Mode of arrival: ambulatory Limitations: no limitations History of Present Illness HPI narrative: Patient is a 33-year-old female, with past medical history of stage IV lymphoma following with Dr. Hernandes, previous drug abuse, who presents the ED with report of weakness. Patient reports she was seen in the ED this morning for weakness, abdominal pain, nausea, vomiting, diagnosed with COVID-19. She was feeling better with supportive therapy and discharged home. Patient reports today her abdominal pain has become worse, in her upper abdomen. She still feels weak. She complains of intermittent nausea which is alleviated with her oral Zofran at home. Denies fevers. Denies difficulty breathing. Denies chest pain. Patient has been seen in our ED multiple times in the last several weeks, has been seen at multiple outside hospitals, reports recent admission to [facility] for pancreatitis. Patient has displayed evidence of drug-seeking behavior in the past. She has previously been prescribed 120 Percocet on 03/11, as well as 6 further hydrocodone on 03/26 which she has completed all of. Related Data Home Medications Medication Instructions Recorded Confirmed hydroxyzine HCl 25 mg tablet 25 mg PO TID 03/21/23 03/27/23 methylprednisolone 4 mg tablets in mg 03/21/23 03/21/23 a dose pack Allergies Allergy/AdvReac Type Severity Reaction Status Date / Time azithromycin AdvReac Nausea Verified 03/29/23 11:23 codeine AdvReac Vomiting Verified 03/29/23 11:23 diphenhydramine AdvReac Jittery Verified 03/29/23 11:23 [From Benadryl] pecan nut AdvReac Nausea and Verified 03/29/23 11:23 Vomiting Review of Systems Review of Systems: CONSTITUTIONAL: Denies fever, chills, or sweats. CARDIOVASCULAR: Denies chest pain, palpitations, or edema. RESPIRATORY: Denies cough or dyspnea. GASTROINTESTINAL: See HPI. GENITOURINARY: Denies dysuria or hematuria. NEUROLOGIC: See HPI. 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 L Side. History of salpingo-oophorectomy Social History Social History Social History: Currently living with boyfriend. Full Code. Surrogate decision maker - Isaiah Beverly (step-dad), if unavailable then Marlene Carbone (mom). Smoking packs per day: 1 Smoking cigarettes per day: 20.0 Years smoked: 11 Smoking pack-years: 11.00 Smoking status: Current every day smoker Tobacco type: cigarettes Alcohol intake: current Drinks per week: 1 Alcohol use details: social Substance use: former Substance use type: methamphetamine Other substance usage details: QUIT USING EARLY DEC 2022 D/T DIAGNOSIS & SURGERY Last use: last use of heroin-September 2014 Lack of Transportation: No Lack of Food: Never True Current Housing: I Have Housing Concerned About Future Housing: No Difficulty Paying Gas/Electric Bills: No Difficulty Paying for Meds: No Currently Unemployed: No Education: High School Diploma/GED Difficulty w/ Childcare or Family Care: No Living arrangements: with friend(s) Additional living arrangements comments: boyfriend Spiritual care concerns: No Exam Narrative: GENERAL: Well appearing, th
[2023-03-29 14:12] LABS: Add Urine Microscopic? NO
[2023-03-29] MEDS: ONDANSETRON INJ 4 MG/2 ML VIAL IV PUSH (14:20)
[2023-03-29] MEDS: KETOROLAC 30 MG/ML VIAL (*BKC) IV PUSH (14:20)
== END 2023-03-29 14:30 | disposition left against medical advice (07) ==
PROVIDERS: Emergency Provider Physician Assistant
DX: U07.1 COVID-19 (principal); R10.9 Unspecified abdominal pain; F17.210 Nicotine dependence, cigarettes, uncomplicated; F41.9 Anxiety disorder, unspecified
CPT/HCPCS: 36415; 80053; 81003; 83690; 83735; 85025; 96374; 96375; 99284; J1885; J2405; J7030

== ENCOUNTER 2023-03-30 05:37 | Emergency (ER) | payer OTHER, SELFPAY ==
[2023-03-30 05:37] VITALS: BP 112/72; PULSE 94; RESP 18; TEMP 37.4; O2SAT 100
[2023-03-30 05:42] VITALS: BP 112/72; PULSE 89; RESP 13; TEMP 37.3; O2SAT 100
--- NOTE | 2023-03-30 06:51 | PC.NURSE ---
PT USED CALL LIGHT TO REQUEST TO LEAVE AMA. THIS RN INFORMED PT, DUE TO NO PROVIDER BEING SIGNED UP. PT ASKED THIS RN TO CALL [facility] TO GET ACCESS TO A RIDE HOME. THIS RN EXPLAINED TO PT THAT THERE WAS A PHONE OUT IN THE WAITING ROOM, ALONG WITH PT HAVING HER OWN PHONE. PT STATED WELL I GUESS I WILL JUST WALK IF YOU AREN'T GOING TO DISCHARGE ME . THIS RN EDUCATED PT AGAIN ABOUT NO PROVIDER SIGNING UP FOR PT AND THAT THERE SHE WAS ABLE TO LEAVE/ [place] BEFORE A PROVIDER COULD SEE HER. PT STATED WELL IM JUST SITTING HERE IN THIS ROOM WITH COVID, WHATEVER I FEEL BETTER . PT WAS SEEN WALKING WITH A STEADY UNASSISTED GAIT TOWARDS THE EXIT OF THE ED.
== END 2023-03-30 07:11 | disposition left against medical advice (07) ==
DX: R11.2 Nausea with vomiting, unspecified (principal)
CPT/HCPCS: 99199

== ENCOUNTER 2023-05-20 09:28 | Emergency (ER) | payer OTHER, SELFPAY ==
[2023-05-20 09:29] VITALS: BP 102/81; PULSE 105; RESP 16; TEMP 36.7; O2SAT 98
--- NOTE | 2023-05-20 10:00 | PC.NURSE ---
pt seen ambulating out of dept with steady gait.
== END 2023-05-20 10:04 | disposition left against medical advice (07) ==
LOC: ANHED 10:02
DX: R52 Pain, unspecified (principal)
CPT/HCPCS: 99199

== ENCOUNTER 2023-05-20 14:52 | Emergency (ER) | payer OTHER, SELFPAY ==
[2023-05-20 14:54] VITALS: BP 153/97; PULSE 122; RESP 20; TEMP 37.2; O2SAT 100
== END 2023-05-20 16:21 | disposition left against medical advice (07) ==
DX: R07.9 Chest pain, unspecified (principal)
CPT/HCPCS: 99199

== ENCOUNTER 2023-05-30 07:12 | Emergency (ER) | payer OTHER, SELFPAY ==
[2023-05-30 07:11] VITALS: BP 138/88; PULSE 90; RESP 16; TEMP 36.7; O2SAT 100
--- NOTE | 2023-05-30 07:53 | ED.GENADULT ---
HPI - General Adult General Chief complaint: Unspecified Stated complaint: bilateral leg swelling Time Seen by Provider: 05/30/23 07:18 History of Present Illness HPI narrative: Patient is a 33-year-old female with a history of stage IV lymphoma presenting with uncontrolled pain. Patient states that she is currently on chemotherapy for lymphoma and is switching oncologists. She is supposed to have a PET scan with a new oncologist for staging purposes today or early next week. States that her new oncologist prescribed her a short course of Percocet for pain control but they are awaiting the scan for further pain meds. States that she is running low on Percocet and her pain is poorly controlled. Complains of pain all over but especially in her bilateral legs and arms. States that they feel swollen and heavy. Has a history of illicit drug use but has not used ever since being diagnosed with cancer. Denies any new pain or new symptoms. Denies infection concerns. Related Data Home Medications Medication Instructions Recorded Confirmed hydroxyzine HCl 25 mg tablet 25 mg PO TID 03/21/23 03/27/23 methylprednisolone 4 mg tablets in mg 03/21/23 03/21/23 a dose pack Allergies Allergy/AdvReac Type Severity Reaction Status Date / Time azithromycin AdvReac Nausea Verified 05/31/23 08:09 codeine AdvReac Vomiting Verified 05/31/23 08:09 diphenhydramine AdvReac Jittery Verified 05/31/23 08:09 [From Benadryl] pecan nut AdvReac Nausea and Verified 05/31/23 08:09 Vomiting Review of Systems Review of Systems: All systems reviewed & are unremarkable except as noted in HPI and below PMFSH Past Medical History Medical History Anxiety Atypical bipolar disorder Drug-induced psychotic disorder Ectopic History of heroin use Methamphetamine abuse, episodic MRSA infection buttock and leg during last lengthy incarceration (2020) Surgical History Surgical History History of breast 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 L Side. History of salpingo-oophorectomy Social History Social History Social History: Currently living with boyfriend. Full Code. Surrogate decision maker - Isaiah Tierneyrusty (step-dad), if unavailable then Marlene Tona (mom). Smoking packs per day: 1 Smoking cigarettes per day: 20.0 Years smoked: 11 Smoking pack-years: 11.00 Smoking status: Current every day smoker Tobacco type: cigarettes Alcohol intake: current Drinks per week: 1 Alcohol use details: social Substance use: former Substance use type: methamphetamine Other substance usage details: QUIT USING EARLY DEC 2022 D/T DIAGNOSIS & SURGERY Last use: last use of heroin-September 2014 Lack of Transportation: No Lack of Food: Never True Current Housing: I Have Housing Concerned About Future Housing: No Difficulty Paying Gas/Electric Bills: No Difficulty Paying for Meds: No Currently Unemployed: No Education: High School Diploma/GED Difficulty w/ Childcare or Family Care: No Living arrangements: with friend(s) Additional living arrangements comments: boyfriend Spiritual care concerns: No Exam Narrative: GENERAL: Chronically ill-appearing, nontoxic, bulky lymphadenopathy in neck, bilateral axilla, bilateral groin HEAD: Normocephalic, atraumatic. EYES: PERRLA and EOMI. ENT: Mucous membranes moist. NECK: Supple. CHEST: No respiratory distress. HEART: Regular rate and rhythm. Normal peripheral pulses. ABDOMEN: Soft, nontender, nondistended EXTREMITIES: Normal range of motion. trace nonpitting edema bilateral ankles SKIN: Warm, dry, no rash. NEURO: No focal deficits. Alert and oriented x3. PSYCH: Normal mood and affect. Course Vital Signs Vital signs: Vital Sig
[2023-05-30 08:07] LABS: Basophils Percent Auto 0.5 % (0.2-1.2); Eosinophils Absolute Auto 0.1 K/mm3 (0-0.3); Eosinophils Percent Auto 0.8 % (0-4.4); Hematocrit 35.4 % (37.0-47.0); Immature Granulocyte Absolute 0.01 K/mm3 (0.00-0.031); Immature Granulocyte Percent A 0.1 % (0-0.5); Lymphocytes Absolute Auto 2.09 K/mm3 (0.9-3.2); Lymphocytes Percent Auto 28.4 % (18.3-44.2); Mean Corpuscular HGB Conc 31.1 g/dl (32-36); Mean Corpuscular Hemoglobin 28.1 pg (26-34); Mean Corpuscular Volume 90.5 fl (80-100); Mean Platelet Volume 9.4 fl (7.4-10.4); Monocytes Absolute Auto 0.5 K/mm3 (0.1-0.6); Monocytes Percent Auto 6.1 % (2.6-8.5); Neutrophils Absolute Auto 4.7 K/mm3 (1.3-6.7); Neutrophils Percent Auto 64.1 % (45.5-73.1); Platelet Count Result 193 k/mm3 (150-375); Red Blood Count 3.91 M/mm3 (4.2-5.4); Red Cell Distribution Width 14.7 % (11.5-14.5); White Blood Count 7.4 K/mm3 (4.5-10.0)
[2023-05-30] MEDS: KETOROLAC 30 MG/ML VIAL (*BKC) IM (08:17)
[2023-05-30] MEDS: MORPHINE SULFATE INJ (*CRX) 10 MG/ML AMP IM ×2 (08:17→10:42)
[2023-05-30 08:18] LABS: Alanine Aminotransferase 56 U/L (6-35); Albumin Level 3.4 g/dL (3.5-5.1); Alkaline Phosphatase 222 U/L (38-126); Anion Gap 3 mmol/L (8-16); Aspartate Amino Transferase 32 U/L (14-36); Bilirubin,Total 0.5 mg/dL (0.2-1.3); Blood Urea Nitrogen 7 mg/dL (7-17); Calcium 8.9 mg/dL (8.4-10.2); Carbon Dioxide 31 mmol/L (22-30); Chloride 103 mmol/L (98-107); Estimated CRCL calculation 87 ml/min; Estimated Glomerular Filt Rate > 60; Glucose 95 mg/dL (65-110); Potassium 4.4 mmol/L (3.4-5.0); Sodium 137 mmol/L (137-145)
[2023-05-30 08:27] LABS: NT Pro B Type Natriuretic Pept 1290 pg/mL (19.9-100)
[2023-05-30 10:40] VITALS: RESP 16; O2SAT 96
[2023-05-30] MEDS: ONDANSETRON HCL ODT 4 MG TABLET PO (10:51)
== END 2023-05-30 10:42 | disposition home or self-care (01) ==
PROVIDERS: Emergency Provider Emergency Medicine
DX: C85.90 Non-Hodgkin lymphoma, unspecified, unspecified site (principal); M79.602 Pain in left arm; M79.601 Pain in right arm; M79.605 Pain in left leg; M79.604 Pain in right leg; F17.210 Nicotine dependence, cigarettes, uncomplicated; Z86.14 Personal history of Methicillin resistant Staphylococcus aureus infection; Z90.79 Acquired absence of other genital organ(s); Z79.60 Long term (current) use of unspecified immunomodulators and immunosuppressants
CPT/HCPCS: 36415; 80053; 83880; 85025; 96372; 99284; A9270; J1885; J2270

== ENCOUNTER 2023-05-31 06:56 | Emergency (ER) | payer OTHER, SELFPAY ==
[2023-05-31 07:00] VITALS: BP 132/60; PULSE 104; RESP 15; TEMP 36.6; O2SAT 100
[2023-05-31 08:08] VITALS: BP 123/93; PULSE 96; RESP 14; O2SAT 100
[2023-05-31 08:49] LABS: Basophils Absolute Auto 0.1 K/mm3 (0.0-0.1); Basophils Percent Auto 0.6 % (0.2-1.2); Eosinophils Absolute Auto 0.1 K/mm3 (0-0.3); Eosinophils Percent Auto 0.7 % (0-4.4); Hemoglobin 11.1 g/dL (12.0-15.0); Immature Granulocyte Absolute 0.02 K/mm3 (0.00-0.031); Immature Granulocyte Percent A 0.2 % (0-0.5); Lymphocytes Absolute Auto 1.99 K/mm3 (0.9-3.2); Lymphocytes Percent Auto 24.3 % (18.3-44.2); Mean Corpuscular HGB Conc 30.8 g/dl (32-36); Mean Corpuscular Hemoglobin 28.2 pg (26-34); Mean Corpuscular Volume 91.4 fl (80-100); Mean Platelet Volume 9.4 fl (7.4-10.4); Monocytes Absolute Auto 0.5 K/mm3 (0.1-0.6); Monocytes Percent Auto 5.6 % (2.6-8.5); Neutrophils Absolute Auto 5.6 K/mm3 (1.3-6.7); Neutrophils Percent Auto 68.6 % (45.5-73.1); Platelet Count Result 193 k/mm3 (150-375); Red Blood Count 3.94 M/mm3 (4.2-5.4); Red Cell Distribution Width 14.7 % (11.5-14.5); White Blood Count 8.2 K/mm3 (4.5-10.0)
--- NOTE | 2023-05-31 08:50 | PC.NURSE ---
Pt states she would like a different pain killer, states that toradol does not work and she doesn't want to waste time , requests that this RN ask the Doctor for a different medication. EDP notified, no new orders at this time
[2023-05-31 08:55] LABS: Appearance Urine Cloudy (Clear); Bacteria Urine 1+ /hpf; Bilirubin Urine Negative (Negative); Blood Urine Negative (Negative); Color Urine Yellow (Yellow); Glucose Urine UA Negative (Negative); Ketones Urine Negative (Negative); Leukocyte Esterase Ur Trace LEU/UL (Negative); Nitrate Urine Negative (Negative); Non Pathogenic Casts 0-2; Protein Urine Negative (Negative); RBC Urine 0-2 /hpf (0-2); Specific Grav Ur 1.019 (1.001-1.035); Squamous Epithelial Cell Urine Moderate /hpf (Few); Urobilinogen Urine 0.2 mg/dL (<2.0)
[2023-05-31 08:58] LABS: Add Urine Microscopic? YES
[2023-05-31 08:59] LABS: Alanine Aminotransferase 44 U/L (6-35); Albumin Level 3.7 g/dL (3.5-5.1); Alkaline Phosphatase 203 U/L (38-126); Anion Gap 5 mmol/L (8-16); Aspartate Amino Transferase 24 U/L (14-36); Bilirubin,Total 0.5 mg/dL (0.2-1.3); Blood Urea Nitrogen 8 mg/dL (7-17); Carbon Dioxide 30 mmol/L (22-30); Chloride 102 mmol/L (98-107); Estimated CRCL calculation 95 ml/min; Estimated Glomerular Filt Rate > 60; Glucose 87 mg/dL (65-110); Potassium 4.4 mmol/L (3.4-5.0); Sodium 137 mmol/L (137-145)
== END 2023-05-31 09:07 | disposition left against medical advice (07) ==
PROVIDERS: Emergency Provider Emergency Medicine
DX: R52 Pain, unspecified (principal)
CPT/HCPCS: 36415; 80053; 81001; 81025; 85025; 87086; 99199

== ENCOUNTER 2023-05-31 11:01 | Emergency (ER) | payer OTHER, SELFPAY ==
[2023-05-31 11:17] VITALS: BP 126/85; PULSE 122; RESP 18; TEMP 36.6; O2SAT 100
[2023-05-31] MEDS: KETOROLAC 30 MG/ML VIAL (*BKC) IM (12:22)
[2023-05-31] MEDS: ACETAMINOPHEN 500 MG TABLET 1000 MG PO (12:22)
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
== END 2023-05-31 13:15 | disposition left against medical advice (07) ==
PROVIDERS: Emergency Provider Emergency Medicine
DX: G89.3 Neoplasm related pain (acute) (chronic) (principal); C85.90 Non-Hodgkin lymphoma, unspecified, unspecified site; F17.210 Nicotine dependence, cigarettes, uncomplicated; Z86.14 Personal history of Methicillin resistant Staphylococcus aureus infection
CPT/HCPCS: 96372; 99283; A9270; J1885

== ENCOUNTER 2023-06-03 20:52 | Emergency (ER) | payer OTHER, SELFPAY ==
--- NOTE | 2023-06-03 21:34 | PC.NURSE ---
Shortly after pt arrived to ED pt ambulated outside to smoke. this RN went outside to tell her she needs to be triaged. Pt stated i'm going to smoke a cigarette then I will come inside. Pt still outside smoking at this time.
--- NOTE | 2023-06-03 21:43 | PC.NURSE ---
patient came back in at this time to be triaged but states that she is going to go home and try to tough it out .
== END 2023-06-03 21:49 | disposition left against medical advice (07) ==
LOC: ANHED 21:48
DX: Z53.21 Procedure and treatment not carried out due to patient leaving prior to being seen by health care provider (principal)
CPT/HCPCS: 99199

== ENCOUNTER 2023-06-04 04:10 | Emergency (ER) | payer OTHER, SELFPAY ==
[2023-06-04 04:10] VITALS: BP 131/86; PULSE 124; RESP 19; TEMP 36.5; O2SAT 100
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
[2023-06-04] MEDS: KETOROLAC 30 MG/ML VIAL (*BKC) IM (04:30)
[2023-06-04] MEDS: MORPHINE SULFATE (*CRX) 15 MG TAB IR PO (04:30)
[2023-06-04 05:19] LABS: Amphetamine Screen Urine Negative (Negative); Barbiturate Screen Urine Negative (Negative); Benzodiazepines Screen Urine Negative (Negative); Cannabinoid Screen Urine Positive (Negative); Cocaine Screen Urine Negative (Negative); Methadone Screen Urine Negative (Negative); Opiate Screen Urine Negative (Negative); Phencyclidine Screen Urine Negative (Negative)
== END 2023-06-04 06:11 | disposition home or self-care (01) ==
LOC: ANHED 04:31
PROVIDERS: Emergency Provider Emergency Medicine
DX: G89.29 Other chronic pain (principal); C85.90 Non-Hodgkin lymphoma, unspecified, unspecified site; F17.210 Nicotine dependence, cigarettes, uncomplicated; Z86.14 Personal history of Methicillin resistant Staphylococcus aureus infection; Z90.79 Acquired absence of other genital organ(s)
CPT/HCPCS: 80307; 96372; 99283; A9270; J1885

== ENCOUNTER 2023-07-10 01:07 | Emergency (ER) | payer OTHER, SELFPAY ==
[2023-07-10 01:13] VITALS: BP 112/75; PULSE 76; PULSE 79; RESP 13; RESP 16; TEMP 36.6; O2SAT 100
[2023-07-10 01:16] VITALS: BP 110/83; PULSE 80; RESP 16; O2SAT 100
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
[2023-07-10] MEDS: SODIUM CHLORIDE 0.9% IV 1,000 ML 999 ML IV CONT (02:00)
[2023-07-10] MEDS: ONDANSETRON INJ 4 MG/2 ML VIAL IV PUSH (02:01)
[2023-07-10] MEDS: HYDROmorphone HCL INJ (*CRX) 1 MG/ML SYR 0.5 MG IV PUSH (02:01)
[2023-07-10 02:12] LABS: Basophils Percent Auto 0.5 % (0.2-1.2); Eosinophils Percent Auto 0.3 % (0-4.4); Hematocrit 35.7 % (37.0-47.0); Hemoglobin 11.6 g/dL (12.0-15.0); Immature Granulocyte Absolute 0.02 K/mm3 (0.00-0.031); Immature Granulocyte Percent A 0.3 % (0-0.5); Lymphocytes Absolute Auto 1.19 K/mm3 (0.9-3.2); Lymphocytes Percent Auto 16.1 % (18.3-44.2); Mean Corpuscular HGB Conc 32.5 g/dl (32-36); Mean Corpuscular Hemoglobin 28.3 pg (26-34); Mean Corpuscular Volume 87.1 fl (80-100); Monocytes Absolute Auto 0.6 K/mm3 (0.1-0.6); Monocytes Percent Auto 7.4 % (2.6-8.5); Neutrophils Absolute Auto 5.6 K/mm3 (1.3-6.7); Neutrophils Percent Auto 75.4 % (45.5-73.1); Platelet Count Result 143 k/mm3 (150-375); Red Cell Distribution Width 14.6 % (11.5-14.5); White Blood Count 7.4 K/mm3 (4.5-10.0)
[2023-07-10 02:19] LABS: SPREG INTERNAL CONTROL Positive; Serum Qual hCG Negative
[2023-07-10 02:22] LABS: Appearance Urine Clear (Clear); Bacteria Urine 2+ /hpf; Bilirubin Urine Negative (Negative); Blood Urine Negative (Negative); Color Urine Yellow (Yellow); Glucose Urine UA Negative (Negative); Hyaline Casts Urine Present /lpf; Ketones Urine Negative (Negative); Leukocyte Esterase Ur 1+ LEU/UL (Negative); Need Manual Microscopic Reviewed; Nitrate Urine Negative (Negative); Protein Urine 1+ mg/dL (Negative); RBC Urine 0-2 /hpf (0-2); Squamous Epithelial Cell Urine Few /hpf (Few); WBC Urine 51-100 /hpf (0-3)
[2023-07-10 02:23] LABS: Add Urine Microscopic? YES
[2023-07-10 02:24] LABS: Alanine Aminotransferase 15 U/L (6-35); Alkaline Phosphatase 49 U/L (38-126); Anion Gap 4 mmol/L (4-12); Aspartate Amino Transferase 21 U/L (14-36); Bilirubin,Total 0.3 mg/dL (0.2-1.3); Blood Urea Nitrogen 11 mg/dL (7-17); Calcium 8.9 mg/dL (8.4-10.2); Carbon Dioxide 29 mmol/L (22-30); Chloride 105 mmol/L (98-107); Estimated CRCL calculation 91 ml/min; Estimated Glomerular Filt Rate > 60; Glucose 99 mg/dL (65-110); Lactic Acid Reflex 1.2 mmol/L (0.7-2.0); Lipase 23 U/L (23-300); Magnesium 1.7 mg/dL (1.6-2.3); Sodium 138 mmol/L (137-145)
== END 2023-07-10 03:10 | disposition home or self-care (01) ==
PROVIDERS: Emergency Provider Emergency Medicine
DX: R11.2 Nausea with vomiting, unspecified (principal); G89.3 Neoplasm related pain (acute) (chronic); C85.90 Non-Hodgkin lymphoma, unspecified, unspecified site; F17.210 Nicotine dependence, cigarettes, uncomplicated; Z86.14 Personal history of Methicillin resistant Staphylococcus aureus infection; Z79.60 Long term (current) use of unspecified immunomodulators and immunosuppressants
CPT/HCPCS: 36415; 80053; 81001; 81025; 83605; 83690; 83735; 84703; 85025; 87086; 87186; 96365; 96375; 99284; J0696; J1170; J2405; J7030

== ENCOUNTER 2023-07-11 06:55 | Emergency (ER) | payer OTHER, SELFPAY ==
[2023-07-11 07:00] VITALS: BP 128/68; PULSE 67; RESP 15; TEMP 36.6; O2SAT 100
[2023-07-11 07:02] VITALS: PULSE 72
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
[2023-07-11] MEDS: ONDANSETRON INJ 4 MG/2 ML VIAL IV PUSH (07:41)
[2023-07-11] MEDS: Please add drug allergy info to patient profile. 1 EACH XX (07:41)
[2023-07-11] MEDS: SODIUM CHLORIDE 0.9% IV 1,000 ML 999 ML IV CONT (07:41)
[2023-07-11] MEDS: KETOROLAC 15 MG/ML VIAL (*BKC) IV PUSH (07:41)
[2023-07-11 07:53] LABS: Basophils Absolute Auto 0.1 K/mm3 (0.0-0.1); Basophils Percent Auto 1.1 % (0.2-1.2); Eosinophils Absolute Auto 0.2 K/mm3 (0-0.3); Eosinophils Percent Auto 3.3 % (0-4.4); Hematocrit 36.4 % (37.0-47.0); Hemoglobin 11.7 g/dL (12.0-15.0); Immature Granulocyte Absolute 0.01 K/mm3 (0.00-0.031); Immature Granulocyte Percent A 0.2 % (0-0.5); Lymphocytes Absolute Auto 1.01 K/mm3 (0.9-3.2); Lymphocytes Percent Auto 19.3 % (18.3-44.2); Mean Corpuscular HGB Conc 32.1 g/dl (32-36); Mean Corpuscular Hemoglobin 28.1 pg (26-34); Mean Corpuscular Volume 87.5 fl (80-100); Mean Platelet Volume 9.8 fl (7.4-10.4); Monocytes Absolute Auto 0.5 K/mm3 (0.1-0.6); Monocytes Percent Auto 10.3 % (2.6-8.5); Neutrophils Absolute Auto 3.4 K/mm3 (1.3-6.7); Neutrophils Percent Auto 65.8 % (45.5-73.1); Platelet Count Result 135 k/mm3 (150-375); Red Blood Count 4.16 M/mm3 (4.2-5.4); Red Cell Distribution Width 14.5 % (11.5-14.5); White Blood Count 5.2 K/mm3 (4.5-10.0)
[2023-07-11] MEDS: MORPHINE SULFATE (*CRX) 2 MG/ML INJ IV PUSH (08:07)
[2023-07-11 08:08] VITALS: BP 120/60; PULSE 71; RESP 15; O2SAT 100
[2023-07-11 08:15] LABS: Alanine Aminotransferase 16 U/L (6-35); Albumin Level 3.5 g/dL (3.5-5.1); Alkaline Phosphatase 45 U/L (38-126); Aspartate Amino Transferase 21 U/L (14-36); Bilirubin,Total 0.4 mg/dL (0.2-1.3); Blood Urea Nitrogen 10 mg/dL (7-17); Calcium 8.6 mg/dL (8.4-10.2); Carbon Dioxide 25 mmol/L (22-30); Estimated Glomerular Filt Rate > 60; Glucose 93 mg/dL (65-110)
[2023-07-11 08:52] LABS: Anion Gap 6 mmol/L (4-12); Chloride 105 mmol/L (98-107); Potassium 3.8 mmol/L (3.4-5.0); Sodium 136 mmol/L (137-145)
[2023-07-11] MEDS: HYDROmorphone HCL INJ (*CRX) 1 MG/ML SYR 0.5 MG IV PUSH (09:07)
[2023-07-11] MEDS: HEPARIN SODIUM LOCK FLUSH 500 UNITS/5 ML VIAL (09:42)
== END 2023-07-11 09:46 | disposition home or self-care (01) ==
PROVIDERS: Emergency Provider Emergency Medicine
DX: G89.29 Other chronic pain (principal); C85.90 Non-Hodgkin lymphoma, unspecified, unspecified site; F31.9 Bipolar disorder, unspecified; F17.210 Nicotine dependence, cigarettes, uncomplicated; F15.11 Other stimulant abuse, in remission
CPT/HCPCS: 36415; 80053; 85025; 96361; 96374; 96375; 99284; J1170; J1642; J1885; J2270; J2405; J7030

== ENCOUNTER 2023-07-24 19:21 | Emergency (ER) | payer OTHER, SELFPAY ==
--- NOTE | 2023-07-24 19:42 | PC.NURSE ---
this rn attempted x2 to call patient back for vital sign assessment. there was no answer at this time. this rn attempted to call patient back again. no call was answered.
[2023-07-24 19:57] VITALS: BP 95/70; PULSE 68; RESP 18; TEMP 36.4; O2SAT 99
[2023-07-24 20:43] LABS: Basophils Absolute Auto 0.1 K/mm3 (0.0-0.1); Basophils Percent Auto 1.4 % (0.2-1.2); Eosinophils Absolute Auto 0.2 K/mm3 (0-0.3); Eosinophils Percent Auto 3.8 % (0-4.4); Hematocrit 38.9 % (37.0-47.0); Hemoglobin 12.8 g/dL (12.0-15.0); Immature Granulocyte Absolute 0.01 K/mm3 (0.00-0.031); Immature Granulocyte Percent A 0.2 % (0-0.5); Lymphocytes Absolute Auto 1.22 K/mm3 (0.9-3.2); Lymphocytes Percent Auto 24.3 % (18.3-44.2); Mean Corpuscular HGB Conc 32.9 g/dl (32-36); Mean Corpuscular Hemoglobin 28.4 pg (26-34); Mean Corpuscular Volume 86.3 fl (80-100); Mean Platelet Volume 9.6 fl (7.4-10.4); Monocytes Absolute Auto 0.4 K/mm3 (0.1-0.6); Monocytes Percent Auto 8.7 % (2.6-8.5); Neutrophils Absolute Auto 3.1 K/mm3 (1.3-6.7); Neutrophils Percent Auto 61.6 % (45.5-73.1); Platelet Count Result 214 k/mm3 (150-375); Red Blood Count 4.51 M/mm3 (4.2-5.4); Red Cell Distribution Width 15.1 % (11.5-14.5)
[2023-07-24 20:55] LABS: Alanine Aminotransferase 42 U/L (6-35); Albumin Level 4.6 g/dL (3.5-5.1); Alkaline Phosphatase 46 U/L (38-126); Anion Gap 6 mmol/L (4-12); Aspartate Amino Transferase 47 U/L (14-36); Bilirubin,Total 0.4 mg/dL (0.2-1.3); Blood Urea Nitrogen 6 mg/dL (7-17); Calcium 9.5 mg/dL (8.4-10.2); Carbon Dioxide 30 mmol/L (22-30); Chloride 103 mmol/L (98-107); Estimated CRCL calculation 79 ml/min; Estimated Glomerular Filt Rate > 60; Glucose 89 mg/dL (65-110); Lipase 35 U/L (23-300); Potassium 3.6 mmol/L (3.4-5.0); Sodium 139 mmol/L (137-145)
== END 2023-07-24 22:18 | disposition left against medical advice (07) ==
LOC: ANHED 22:13
PROVIDERS: Emergency Provider Emergency Medicine
DX: R11.2 Nausea with vomiting, unspecified (principal)
CPT/HCPCS: 36415; 80053; 83690; 85025; 99199

== ENCOUNTER 2023-08-05 17:02 | Emergency (ER) | payer OTHER, SELFPAY ==
--- NOTE | 2023-08-05 17:05 | PC.NURSE ---
PT HAS NOW DECIDED TO LEAVE TO GO TO ANOTHER FACILITY. AMBULATORY WITH A BRISK,STEADY GAIT.
== END 2023-08-05 18:18 | disposition left against medical advice (07) ==
DX: Z53.21 Procedure and treatment not carried out due to patient leaving prior to being seen by health care provider (principal)
CPT/HCPCS: 99199

== ENCOUNTER 2023-08-13 10:52 | Emergency (ER) | payer OTHER, SELFPAY ==
[2023-08-13 11:05] VITALS: BP 110/64; PULSE 100; RESP 16; TEMP 36.6; O2SAT 100
--- NOTE | 2023-08-13 12:38 | PC.NURSE ---
pt called for room, not in lobby
== END 2023-08-13 12:59 | disposition left against medical advice (07) ==
LOC: ANHED 12:41
DX: R52 Pain, unspecified (principal)
CPT/HCPCS: 99199

== ENCOUNTER 2023-09-08 17:19 | Emergency (ER) | payer OTHER, SELFPAY ==
[2023-09-08 17:37] VITALS: BP 100/63; PULSE 104; RESP 20; TEMP 36.5; O2SAT 99
== END 2023-09-08 18:22 | disposition left against medical advice (07) ==
LOC: ANHED 18:17
DX: S09.93XA Unspecified injury of face, initial encounter (principal); Y04.2XXA Assault by strike against or bumped into by another person, initial encounter
CPT/HCPCS: 99199

== ENCOUNTER 2023-09-25 05:16 | Emergency (ER) | payer OTHER, SELFPAY ==
[2023-09-25 05:27] VITALS: BP 128/82; PULSE 81; RESP 25; TEMP 37.1; O2SAT 100
[2023-09-25 05:30] VITALS: RESP 25; O2SAT 100
[2023-09-25 05:31] VITALS: PULSE 77
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
[2023-09-25 06:24] LABS: Basophils Percent Auto 0.5 % (0.2-1.2); Eosinophils Absolute Auto 0.1 K/mm3 (0-0.3); Eosinophils Percent Auto 0.9 % (0-4.4); Hematocrit 39.4 % (37.0-47.0); Hemoglobin 13.6 g/dL (12.0-15.0); Immature Granulocyte Absolute 0.01 K/mm3 (0.00-0.031); Immature Granulocyte Percent A 0.2 % (0-0.5); Lymphocytes Absolute Auto 0.92 K/mm3 (0.9-3.2); Lymphocytes Percent Auto 16.3 % (18.3-44.2); Mean Corpuscular HGB Conc 34.5 g/dl (32-36); Mean Corpuscular Volume 86.8 fl (80-100); Mean Platelet Volume 9.1 fl (7.4-10.4); Monocytes Absolute Auto 0.4 K/mm3 (0.1-0.6); Monocytes Percent Auto 7.1 % (2.6-8.5); Neutrophils Absolute Auto 4.2 K/mm3 (1.3-6.7); Platelet Count Result 301 k/mm3 (150-375); Red Blood Count 4.54 M/mm3 (4.2-5.4); Red Cell Distribution Width 15.8 % (11.5-14.5); White Blood Count 5.6 K/mm3 (4.5-10.0)
--- NOTE | 2023-09-25 06:35 | PC.NURSE ---
Patient initially asked us not to access her port.
[2023-09-25 06:37] LABS: Alanine Aminotransferase 55 U/L (6-35); Albumin Level 5.1 g/dL (3.5-5.1); Alkaline Phosphatase 103 U/L (38-126); Anion Gap 9 mmol/L (4-12); Aspartate Amino Transferase 22 U/L (14-36); Blood Urea Nitrogen 11 mg/dL (7-17); Calcium 10.2 mg/dL (8.4-10.2); Carbon Dioxide 26 mmol/L (22-30); Chloride 108 mmol/L (98-107); Estimated CRCL calculation 79 ml/min; Estimated Glomerular Filt Rate > 60; Glucose 99 mg/dL (65-110); Potassium 3.8 mmol/L (3.4-5.0); Sodium 143 mmol/L (137-145)
[2023-09-25] MEDS: HYDROmorphone HCL INJ (*CRX) 1 MG/ML SYR 0.5 MG IV PUSH (06:40)
[2023-09-25] MEDS: KETOROLAC 15 MG/ML VIAL (*BKC) IV PUSH (06:41)
[2023-09-25] MEDS: SODIUM CHLORIDE 0.9% IV 1,000 ML 999 ML IV CONT (06:41)
[2023-09-25] MEDS: ONDANSETRON INJ 4 MG/2 ML VIAL IV PUSH (06:41)
[2023-09-25 06:46] LABS: Appearance Urine Clear (Clear); Bacteria Urine 2+ /hpf; Bilirubin Urine Negative (Negative); Blood Urine Negative (Negative); Color Urine Dark Yellow (Yellow); Glucose Urine UA Negative (Negative); Ketones Urine Trace mg/dL (Negative); Leukocyte Esterase Ur Trace LEU/UL (Negative); Nitrate Urine Negative (Negative); Non Pathogenic Casts 0-2; Protein Urine Trace mg/dL (Negative); Squamous Epithelial Cell Urine Moderate /hpf (Few); WBC Urine 0-5 /hpf (0-3)
[2023-09-25 06:51] LABS: Add Urine Microscopic? YES
[2023-09-25 08:04] VITALS: BP 121/90; PULSE 83; RESP 16; O2SAT 100
== END 2023-09-25 08:06 | disposition home or self-care (01) ==
PROVIDERS: Emergency Provider Emergency Medicine
DX: G89.29 Other chronic pain (principal); C85.90 Non-Hodgkin lymphoma, unspecified, unspecified site; F41.9 Anxiety disorder, unspecified; F31.9 Bipolar disorder, unspecified; F17.210 Nicotine dependence, cigarettes, uncomplicated; Z86.14 Personal history of Methicillin resistant Staphylococcus aureus infection; Z90.79 Acquired absence of other genital organ(s); Z79.60 Long term (current) use of unspecified immunomodulators and immunosuppressants; Z79.891 Long term (current) use of opiate analgesic
CPT/HCPCS: 36415; 80053; 81001; 81025; 85025; 96361; 96374; 96375; 99284; J1170; J1885; J2405; J7030

== ENCOUNTER 2023-09-27 15:25 | Emergency (ER) | payer OTHER, SELFPAY ==
[2023-09-27 15:37] VITALS: BP 105/73; PULSE 101; RESP 20; TEMP 36.6; O2SAT 97
--- NOTE | 2023-09-27 16:15 | PC.NURSE ---
Per registration, patient seen leaving department. Patient not found in room. EDP and patient primary RN made aware.
== END 2023-09-27 16:15 | disposition left against medical advice (07) ==
PROVIDERS: Emergency Provider Physician Assistant
DX: R52 Pain, unspecified (principal)
CPT/HCPCS: 99199

== ENCOUNTER 2023-09-28 22:19 | Emergency (ER) | payer OTHER, SELFPAY ==
[2023-09-28 22:18] VITALS: BP 139/104; PULSE 91; RESP 18; TEMP 36.5; O2SAT 95
[2023-09-28 22:35] VITALS: O2SAT 97
[2023-09-28] MEDS: ONDANSETRON HCL ODT 4 MG TABLET PO (23:22)
[2023-09-28] MEDS: HALOPERIDOL LACTATE 5 MG/ML VIAL IM (23:22)
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
== END 2023-09-28 23:42 | disposition home or self-care (01) ==
PROVIDERS: Emergency Provider Emergency Medicine
DX: Z76.5 Malingerer [conscious simulation] (principal); C85.90 Non-Hodgkin lymphoma, unspecified, unspecified site; F15.10 Other stimulant abuse, uncomplicated; F17.210 Nicotine dependence, cigarettes, uncomplicated; Z86.14 Personal history of Methicillin resistant Staphylococcus aureus infection; Z90.79 Acquired absence of other genital organ(s)
CPT/HCPCS: 96372; 99283; A9270; J1630

== ENCOUNTER 2023-09-30 06:37 | Emergency (ER) | payer OTHER, SELFPAY ==
[2023-09-30 06:43] VITALS: BP 129/98; PULSE 97; RESP 19; TEMP 36.3; O2SAT 100
[2023-09-30 06:53] VITALS: BP 137/115; PULSE 98; RESP 19; O2SAT 100
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
[2023-09-30] MEDS: SODIUM CHLORIDE 0.9% IV 1,000 ML 999 ML IV CONT ×2 (08:33→10:49)
[2023-09-30] MEDS: HYDROmorphone HCL INJ (*CRX) 1 MG/ML SYR IV PUSH (08:35)
[2023-09-30] MEDS: KETOROLAC 15 MG/ML VIAL (*BKC) IV PUSH (08:54)
[2023-09-30] MEDS: ONDANSETRON INJ 4 MG/2 ML VIAL IV PUSH (08:54)
[2023-09-30 10:56] VITALS: BP 128/111; PULSE 72; RESP 16; O2SAT 98
[2023-09-30 12:24] VITALS: BP 142/80; PULSE 88; RESP 16; O2SAT 99
== END 2023-09-30 12:29 | disposition home or self-care (01) ==
PROVIDERS: Emergency Provider Emergency Medicine
DX: C85.90 Non-Hodgkin lymphoma, unspecified, unspecified site (principal); R10.9 Unspecified abdominal pain; E86.0 Dehydration; F17.210 Nicotine dependence, cigarettes, uncomplicated
CPT/HCPCS: 36415; 80053; 85025; 96361; 96374; 96375; 99284; A9270; J1170; J1642; J1885; J2405; J7030

== ENCOUNTER 2023-09-30 20:57 | Emergency (ER) | payer OTHER, SELFPAY ==
[2023-09-30 21:00] VITALS: BP 145/108; PULSE 89; RESP 18; TEMP 36.7; O2SAT 100
[2023-09-30 22:41] VITALS: BP 137/110; PULSE 82; RESP 18; O2SAT 100
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
[2023-10-01] MEDS: KETOROLAC 30 MG/ML VIAL (*BKC) IV PUSH (01:11)
[2023-10-01] MEDS: ACETAMINOPHEN 500 MG TABLET 1000 MG PO (01:11)
[2023-10-01] MEDS: ONDANSETRON INJ 4 MG/2 ML VIAL IV PUSH (01:11)
[2023-10-01 01:14] LABS: Basophils Percent Auto 0.2 % (0.2-1.2); Eosinophils Percent Auto 0.3 % (0-4.4); Hemoglobin 17.4 g/dL (12.0-15.0); Immature Granulocyte Absolute 0.03 K/mm3 (0.00-0.031); Immature Granulocyte Percent A 0.3 % (0-0.5); Lymphocytes Percent Auto 14.7 % (18.3-44.2); Mean Corpuscular HGB Conc 35.5 g/dl (32-36); Mean Corpuscular Hemoglobin 30.4 pg (26-34); Mean Corpuscular Volume 85.7 fl (80-100); Mean Platelet Volume 8.8 fl (7.4-10.4); Monocytes Absolute Auto 0.6 K/mm3 (0.1-0.6); Monocytes Percent Auto 6.3 % (2.6-8.5); Neutrophils Absolute Auto 6.9 K/mm3 (1.3-6.7); Neutrophils Percent Auto 78.2 % (45.5-73.1); Platelet Count Result 354 k/mm3 (150-375); Red Blood Count 5.72 M/mm3 (4.2-5.4); Red Cell Distribution Width 15.8 % (11.5-14.5); White Blood Count 8.9 K/mm3 (4.5-10.0)
[2023-10-01 01:25] LABS: Alanine Aminotransferase 47 U/L (6-35); Albumin Level 5.1 g/dL (3.5-5.1); Alkaline Phosphatase 82 U/L (38-126); Anion Gap 9 mmol/L (4-12); Aspartate Amino Transferase 61 U/L (14-36); Bilirubin,Total 1.1 mg/dL (0.2-1.3); Blood Urea Nitrogen 9 mg/dL (7-17); Calcium 9.5 mg/dL (8.4-10.2); Carbon Dioxide 29 mmol/L (22-30); Chloride 100 mmol/L (98-107); Estimated CRCL calculation 95 ml/min; Estimated Glomerular Filt Rate > 60; Glucose 112 mg/dL (65-110); Potassium 3.7 mmol/L (3.4-5.0); Sodium 138 mmol/L (137-145)
[2023-10-01] MEDS: SODIUM CHLORIDE 0.9% IV 1,000 ML 999 ML IV CONT (01:35)
--- NOTE | 2023-10-01 02:00 | PC.NURSE ---
Pt visibly upset about not receiving stronger pain meds. Pt decided to leave prior to receiving discharge paperwork and education.
== END 2023-10-01 02:15 | disposition home or self-care (01) ==
PROVIDERS: Emergency Provider Physician Assistant
DX: C85.90 Non-Hodgkin lymphoma, unspecified, unspecified site (principal); G89.29 Other chronic pain; F17.210 Nicotine dependence, cigarettes, uncomplicated; Z76.5 Malingerer [conscious simulation]; Z79.891 Long term (current) use of opiate analgesic; Z79.1 Long term (current) use of non-steroidal anti-inflammatories (NSAID); Z79.899 Other long term (current) drug therapy
CPT/HCPCS: 36415; 80053; 85025; 96361; 96374; 96375; 99284; A9270; J1885; J2405; J7030

== ENCOUNTER 2023-10-04 22:38 | Emergency (ER) | payer OTHER, SELFPAY ==
[2023-10-04 22:40] VITALS: BP 164/108; PULSE 67; RESP 15; TEMP 37; O2SAT 98
[2023-10-04] MEDS: ONDANSETRON INJ 4 MG/2 ML VIAL IV PUSH (23:37)
[2023-10-04] MEDS: SODIUM CHLORIDE 0.9% IV 1,000 ML 999 ML IV CONT (23:37)
[2023-10-04] MEDS: KETOROLAC 30 MG/ML VIAL (*BKC) IV PUSH (23:38)
[2023-10-04] MEDS: DICYCLOMINE HCL 10 MG CAPSULE 20 MG PO (23:39)
[2023-10-04] MEDS: ACETAMINOPHEN 500 MG TABLET 1000 MG PO (23:39)
[2023-10-05 00:10] LABS: Appearance Urine Clear (Clear); Bilirubin Urine Negative (Negative); Blood Urine Negative (Negative); Color Urine Yellow (Yellow); Glucose Urine UA Negative (Negative); Ketones Urine Negative (Negative); Leukocyte Esterase Ur Negative LEU/UL (Negative); Nitrate Urine Negative (Negative); Protein Urine Negative (Negative); Specific Grav Ur 1.024 (1.001-1.035)
--- NOTE | 2023-10-05 00:12 | ED.GENADULT ---
HPI - General Adult General Chief complaint: Unspecified Stated complaint: PAIN ALL OVER Source: patient and old records reviewed Mode of arrival: EMS Limitations: no limitations History of Present Illness HPI narrative: Patient is a 33 y/o female who presents to the ED with chronic pain. Patient has Hx of Stage IV lymphoma with poorly controlled pain. She is well known to our emergency department and myself. Hx of polysubstance abuse, opioid misuse, drug seeking behavior. She is currently following with Dr. Gabriel Salmeron with oncology in [place], [place]. She reported she was scheduled to undergo a new round of chemotherapy last week, but states this did not occur. She states she was supposed to have an appointment with her oncologist but was not able to see Dr. Salmeron. She is unclear why she did not receive her chemotherapy. Patient reports pain all over, chronic pain to her right-sided abdomen. Also reports nausea. Denies vomiting. Denies fevers. Denies dysuria or hematuria. Related Data Home Medications Medication Instructions Recorded Confirmed hydroxyzine HCl 25 mg tablet 25 mg PO TID 03/21/23 03/27/23 methylprednisolone 4 mg tablets in mg 03/21/23 03/21/23 a dose pack hydroxyzine HCl 25 mg tablet mg 09/30/23 ibuprofen 600 mg tablet mg 09/30/23 megestrol 400 mg/10 mL (40 mg/mL) mg 09/30/23 oral suspension morphine 30 mg immediate release mg 09/30/23 tablet ondansetron 4 mg disintegrating mg 09/30/23 tablet pregabalin 50 mg capsule mg 09/30/23 promethazine 25 mg rectal mg RECTAL 09/30/23 suppository (Promethegan) valacyclovir 500 mg tablet mg 09/30/23 Allergies Allergy/AdvReac Type Severity Reaction Status Date / Time azithromycin AdvReac Nausea Verified 09/30/23 22:43 codeine AdvReac Vomiting Verified 09/30/23 22:43 diphenhydramine AdvReac Jittery Verified 09/30/23 22:43 [From Benadryl] pecan nut AdvReac Nausea and Verified 09/30/23 22:43 Vomiting Review of Systems Review of Systems: CONSTITUTIONAL: Denies fever, chills, or sweats. GASTROINTESTINAL: See HPI. GENITOURINARY: Denies dysuria or hematuria. MUSCULOSKELETAL: See HPI. 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 L Side. History of salpingo-oophorectomy Social History Social History Social History: Currently living with boyfriend. Full Code. Surrogate decision maker - Isaiah Beverly (step-dad), if unavailable then Marlene Carbone (mom). Smoking packs per day: 1 Smoking cigarettes per day: 20.0 Years smoked: 11 Smoking pack-years: 11.00 Smoking status: Current every day smoker Tobacco type: cigarettes Alcohol intake: current Drinks per week: 1 Alcohol use details: social Substance use: former Substance use type: methamphetamine Other substance usage details: QUIT USING EARLY DEC 2022 D/T DIAGNOSIS & SURGERY Last use: last use of heroin-September 2014 Lack of Transportation: No Lack of Food: Never True Current Housing: I Have Housing Concerned About Future Housing: No Difficulty Paying Gas/Electric Bills: No Difficulty Paying for Meds: No Currently Unemployed: No Education: High School Diploma/GED Difficulty w/ Childcare or Family Care: No Living arrangements: with friend(s) Additional living arrangements comments: boyfriend Spiritual care concerns: No Exam Narra
[2023-10-05 00:21] LABS: Add Urine Microscopic? NO
[2023-10-05 00:28] LABS: Barbiturate Screen Urine Negative (Negative); Benzodiazepines Screen Urine Negative (Negative)
[2023-10-05 00:30] LABS: Cannabinoid Screen Urine Positive (Negative); Cocaine Screen Urine Negative (Negative); Methadone Screen Urine Negative (Negative); Opiate Screen Urine Positive (Negative); Phencyclidine Screen Urine Negative (Negative)
[2023-10-05 01:05] LABS: Amphetamine Screen Urine Positive (Negative)
[2023-10-05 01:18] VITALS: BP 127/80; PULSE 67; RESP 18; O2SAT 99
== END 2023-10-05 01:49 | disposition home or self-care (01) ==
PROVIDERS: Emergency Provider Physician Assistant
DX: G89.29 Other chronic pain (principal); C85.90 Non-Hodgkin lymphoma, unspecified, unspecified site; F41.9 Anxiety disorder, unspecified; F31.9 Bipolar disorder, unspecified
CPT/HCPCS: 80307; 81003; 96361; 96374; 96375; 99284; A9270; J1885; J2405; J7030

== ENCOUNTER 2023-10-05 16:26 | Emergency (ER) | payer OTHER, SELFPAY ==
[2023-10-05 16:34] VITALS: BP 144/72; PULSE 106; RESP 20; TEMP 36.7; O2SAT 100
[2023-10-05] MEDS: KETOROLAC 15 MG/ML VIAL (*BKC) IM (18:46)
--- NOTE | 2023-10-05 18:50 | ED.GENADULT ---
HPI - General Adult General Chief complaint: Unspecified Stated complaint: pain Time Seen by Provider: 10/05/23 17:53 History of Present Illness HPI narrative: Patient is a 33-year-old female who presents to the emergency department this evening complaining of generalized pain all over her body. Patient is known to our facility and was here yesterday for similar symptoms requesting narcotics. Patient states that she was administered Toradol and some IV fluids without any improvement of her pain. Patient was also at [facility] this morning and was administered Ativan. She states that she was at her oncologist's office last week but left before being seen secondary to a manic episode. Patient does have pain seeking behavior and was found selling the narcotics that she was prescribed. She has no specific symptoms and states that her pain is all over secondary to her lymphoma. Related Data Home Medications Medication Instructions Recorded Confirmed hydroxyzine HCl 25 mg tablet 25 mg PO TID 03/21/23 03/27/23 methylprednisolone 4 mg tablets in mg 03/21/23 03/21/23 a dose pack hydroxyzine HCl 25 mg tablet mg 09/30/23 ibuprofen 600 mg tablet mg 09/30/23 megestrol 400 mg/10 mL (40 mg/mL) mg 09/30/23 oral suspension morphine 30 mg immediate release mg 09/30/23 tablet ondansetron 4 mg disintegrating mg 09/30/23 tablet pregabalin 50 mg capsule mg 09/30/23 promethazine 25 mg rectal mg RECTAL 09/30/23 suppository (Promethegan) valacyclovir 500 mg tablet mg 09/30/23 Allergies Allergy/AdvReac Type Severity Reaction Status Date / Time azithromycin AdvReac Nausea Verified 09/30/23 22:43 codeine AdvReac Vomiting Verified 09/30/23 22:43 diphenhydramine AdvReac Jittery Verified 09/30/23 22:43 [From Benadryl] pecan nut AdvReac Nausea and Verified 09/30/23 22:43 Vomiting Review of Systems Review of Systems: All systems are reviewed and are negative unless stated otherwise in the HPI. 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 L Side. History of salpingo-oophorectomy Social History Social History Social History: Currently living with boyfriend. Full Code. Surrogate decision maker - Isaiah Beverly (step-dad), if unavailable then Marlene Carbone (mom). Smoking packs per day: 1 Smoking cigarettes per day: 20.0 Years smoked: 11 Smoking pack-years: 11.00 Smoking status: Current every day smoker Tobacco type: cigarettes Alcohol intake: current Drinks per week: 1 Alcohol use details: social Substance use: former Substance use type: methamphetamine Other substance usage details: QUIT USING EARLY DEC 2022 D/T DIAGNOSIS & SURGERY Last use: last use of heroin-September 2014 Lack of Transportation: No Lack of Food: Never True Current Housing: I Have Housing Concerned About Future Housing: No Difficulty Paying Gas/Electric Bills: No Difficulty Paying for Meds: No Currently Unemployed: No Education: High School Diploma/GED Difficulty w/ Childcare or Family Care: No Living arrangements: with friend(s) Additional living arrangements comments: boyfriend Spiritual care concerns: No Exam Narrative: General: Alert, awake, afebrile, in no acute distress. HEENT: PERRL, no rhinorrhea, no post nasal drip, oropharynx clear. Cardiovascular: Regular rate and rhythm, no murmurs, rubs or gallops, no peripheral edema. Respiratory: Clear to auscultation bilaterally,
--- NOTE | 2023-10-05 19:42 | PC.NURSE ---
This RN went to discharge patient and patient demanded pain medication. This RN informed patient that no pain med was ordered. Patient stated get that doctor in here now! I need to speak with her. This RN informed patient that I will let the provider know but it is busy and she can be in as soon as she can. ERP notified. ERP did go and speak with the patient.
== END 2023-10-05 19:46 | disposition home or self-care (01) ==
PROVIDERS: Emergency Provider Emergency Medicine
DX: G89.3 Neoplasm related pain (acute) (chronic) (principal); C85.90 Non-Hodgkin lymphoma, unspecified, unspecified site; F41.9 Anxiety disorder, unspecified; F31.9 Bipolar disorder, unspecified; F17.210 Nicotine dependence, cigarettes, uncomplicated; Z86.14 Personal history of Methicillin resistant Staphylococcus aureus infection; Z90.79 Acquired absence of other genital organ(s); Z79.899 Other long term (current) drug therapy; Z79.891 Long term (current) use of opiate analgesic
CPT/HCPCS: 96372; 99283; J1885

== ENCOUNTER 2023-10-05 21:20 | Emergency (ER) | payer OTHER, SELFPAY ==
[2023-10-05 21:21] VITALS: BP 118/95; PULSE 100; RESP 16; TEMP 36.4; O2SAT 100
--- NOTE | 2023-10-05 21:35 | ED.GENADULT ---
HPI - General Adult General Chief complaint: Unspecified Stated complaint: GENERALIZED PAIN Time Seen by Provider: 10/05/23 21:30 History of Present Illness HPI narrative: Patient 33-year-old female who presents emergency department chief complaint of chronic pain. Patient has been in the emergency department continuously over the last several days seeking narcotics. Patient has history of lymphoma was on chronic pain medications but that has been treating her medications for methamphetamine the patient tested positive in the last 24 hours for methamphetamine Related Data Home Medications Medication Instructions Recorded Confirmed hydroxyzine HCl 25 mg tablet 25 mg PO TID 03/21/23 03/27/23 methylprednisolone 4 mg tablets in mg 03/21/23 03/21/23 a dose pack hydroxyzine HCl 25 mg tablet mg 09/30/23 ibuprofen 600 mg tablet mg 09/30/23 megestrol 400 mg/10 mL (40 mg/mL) mg 09/30/23 oral suspension morphine 30 mg immediate release mg 09/30/23 tablet ondansetron 4 mg disintegrating mg 09/30/23 tablet pregabalin 50 mg capsule mg 09/30/23 promethazine 25 mg rectal mg RECTAL 09/30/23 suppository (Promethegan) valacyclovir 500 mg tablet mg 09/30/23 Allergies Allergy/AdvReac Type Severity Reaction Status Date / Time azithromycin AdvReac Nausea Verified 09/30/23 22:43 codeine AdvReac Vomiting Verified 09/30/23 22:43 diphenhydramine AdvReac Jittery Verified 09/30/23 22:43 [From Benadryl] pecan nut AdvReac Nausea and Verified 09/30/23 22:43 Vomiting Review of Systems Review of Systems: A 10 system review of systems was completed on the patient and is negative except for what is stated in the HPI. Nursing and ancillary documentation was reviewed. 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 L Side. History of salpingo-oophorectomy Social History Social History Social History: Currently living with boyfriend. Full Code. Surrogate decision maker - Isaiah Beverly (step-dad), if unavailable then Marlene Carbone (mom). Smoking packs per day: 1 Smoking cigarettes per day: 20.0 Years smoked: 11 Smoking pack-years: 11.00 Smoking status: Current every day smoker Tobacco type: cigarettes Alcohol intake: current Drinks per week: 1 Alcohol use details: social Substance use: former Substance use type: methamphetamine Other substance usage details: QUIT USING EARLY DEC 2022 D/T DIAGNOSIS & SURGERY Last use: last use of heroin-September 2014 Lack of Transportation: No Lack of Food: Never True Current Housing: I Have Housing Concerned About Future Housing: No Difficulty Paying Gas/Electric Bills: No Difficulty Paying for Meds: No Currently Unemployed: No Education: High School Diploma/GED Difficulty w/ Childcare or Family Care: No Living arrangements: with friend(s) Additional living arrangements comments: boyfriend Spiritual care concerns: No Exam Narrative: GENERAL: Well-appearing, well-nourished, and in no acute distress. HEAD: Normocephalic, atraumatic. EYES: PERRLA and EOMI. ENT: Nares clear, no rhinorrhea or epistaxis. Mucous membranes moist. NECK: Supple. CHEST: Clear to auscultation. No respiratory distress. HEART: Regular rate and rhythm. No murmur heard. Normal peripheral pulses. ABDOMEN: Soft, nontender, nondistended, normal active bowel sounds. EXTREMITIES: Normal range of motion. No edema. SKIN: Warm,
[2023-10-05] MEDS: KETOROLAC 30 MG/ML VIAL (*BKC) IM (21:38)
== END 2023-10-05 22:40 | disposition home or self-care (01) ==
PROVIDERS: Emergency Provider Emergency Medicine
DX: G89.3 Neoplasm related pain (acute) (chronic) (principal); C85.90 Non-Hodgkin lymphoma, unspecified, unspecified site; F41.9 Anxiety disorder, unspecified; F31.9 Bipolar disorder, unspecified; F17.210 Nicotine dependence, cigarettes, uncomplicated; Z86.14 Personal history of Methicillin resistant Staphylococcus aureus infection; Z90.79 Acquired absence of other genital organ(s); Z79.891 Long term (current) use of opiate analgesic; Z79.899 Other long term (current) drug therapy
CPT/HCPCS: 96372; 99283; J1885

== ENCOUNTER 2023-10-28 15:14 | Emergency (ER) | payer OTHER, SELFPAY ==
[2023-10-28 15:18] VITALS: BP 124/87; PULSE 117; RESP 20; TEMP 36.3; O2SAT 100
--- NOTE | 2023-10-28 17:02 | ED.GENADULT ---
HPI - General Adult General Chief complaint: Nausea/Vomiting/Diarrhea Stated complaint: N/V Time Seen by Provider: 10/28/23 15:58 Source: patient Mode of arrival: ambulatory Limitations: no limitations History of Present Illness HPI narrative: this is a 33-year-old female with PMH of lymphoma who presents to the ED via EMS for chief complaint abdominal pain, nausea, vomiting. Patient is well-known to this department and is here frequently for chronic pain. She reports that for the last there to she has had increasing abdominal pain and she ran out of her morphine today. Endorses nausea and vomiting but she attributes this to the pain. Denies diarrhea. Denies fevers, chills. Symptoms are typical for her usual chronic pain. Related Data Home Medications Medication Instructions Recorded Confirmed hydroxyzine HCl 25 mg tablet 25 mg PO TID 03/21/23 03/27/23 methylprednisolone 4 mg tablets in mg 03/21/23 03/21/23 a dose pack hydroxyzine HCl 25 mg tablet mg 09/30/23 ibuprofen 600 mg tablet mg 09/30/23 megestrol 400 mg/10 mL (40 mg/mL) mg 09/30/23 oral suspension morphine 30 mg immediate release mg 09/30/23 tablet ondansetron 4 mg disintegrating mg 09/30/23 tablet pregabalin 50 mg capsule mg 09/30/23 promethazine 25 mg rectal mg RECTAL 09/30/23 suppository (Promethegan) valacyclovir 500 mg tablet mg 09/30/23 Allergies Allergy/AdvReac Type Severity Reaction Status Date / Time azithromycin AdvReac Nausea Verified 10/28/23 15:15 codeine AdvReac Vomiting Verified 10/28/23 15:15 diphenhydramine AdvReac Jittery Verified 10/28/23 15:15 [From Benadryl] pecan nut AdvReac Nausea and Verified 10/28/23 15:15 Vomiting Review of Systems Review of Systems: All systems as dictated in HPI [facility] Past Medical History Medical History Anxiety Atypical bipolar disorder Drug-induced psychotic disorder Ectopic History of heroin use Methamphetamine abuse, episodic MRSA infection buttock and leg during last lengthy incarceration (2020) Surgical History Surgical History 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 L Side. History of salpingo-oophorectomy Social History Social History Social History: Currently living with boyfriend. Full Code. Surrogate decision maker - Isaiah Beverly (step-dad), if unavailable then Marlene Carbone (mom). Smoking packs per day: 1 Smoking cigarettes per day: 20.0 Years smoked: 11 Smoking pack-years: 11.00 Smoking status: Current every day smoker Tobacco type: cigarettes Alcohol intake: current Drinks per week: 1 Alcohol use details: social Substance use: former Substance use type: methamphetamine Other substance usage details: QUIT USING EARLY DEC 2022 D/T DIAGNOSIS & SURGERY Last use: last use of heroin-September 2014 Lack of Transportation: No Lack of Food: Never True Current Housing: I Have Housing Concerned About Future Housing: No Difficulty Paying Gas/Electric Bills: No Difficulty Paying for Meds: No Currently Unemployed: No Education: High School Diploma/GED Difficulty w/ Childcare or Family Care: No Living arrangements: with friend(s) Additional living arrangements comments: boyfriend Spiritual care concerns: No Exam Narrative: GENERAL: Well-appearing, well-nourished, and in no acute distress. HEAD: Normocephalic, atraumatic. EYES: PERRLA and EOMI. ENT: Nares clear, no rhinorrhea or epistaxis. Mucous membranes moist. Oropharynx without tonsillar hypertrophy exudate or other lesions. NECK: Supple. No adenopathy or masses. CHEST: No respiratory distress. Clear to auscultation. No wheezes rales or rhonchi HEART: Regular rate and rhythm. No murmur hear
[2023-10-28 17:25] LABS: Basophils Absolute Auto 0.1 K/mm3 (0.0-0.1); Basophils Percent Auto 0.8 % (0.2-1.2); Eosinophils Absolute Auto 0.2 K/mm3 (0-0.3); Eosinophils Percent Auto 2.3 % (0-4.4); Hematocrit 39.2 % (37.0-47.0); Hemoglobin 12.8 g/dL (12.0-15.0); Immature Granulocyte Absolute 0.04 K/mm3 (0.00-0.031); Immature Granulocyte Percent A 0.6 % (0-0.5); Lymphocytes Absolute Auto 1.03 K/mm3 (0.9-3.2); Lymphocytes Percent Auto 16.1 % (18.3-44.2); Mean Corpuscular HGB Conc 32.7 g/dl (32-36); Mean Corpuscular Hemoglobin 30.7 pg (26-34); Mean Platelet Volume 9.2 fl (7.4-10.4); Monocytes Absolute Auto 0.4 K/mm3 (0.1-0.6); Monocytes Percent Auto 5.6 % (2.6-8.5); Neutrophils Absolute Auto 4.8 K/mm3 (1.3-6.7); Neutrophils Percent Auto 74.6 % (45.5-73.1); Platelet Count Result 341 k/mm3 (150-375); Red Blood Count 4.17 M/mm3 (4.2-5.4); Red Cell Distribution Width 14.2 % (11.5-14.5); White Blood Count 6.4 K/mm3 (4.5-10.0)
[2023-10-28 17:29] LABS: Appearance Urine Turbid (Clear); Bacteria Urine 1+ /hpf; Bilirubin Urine Negative (Negative); Blood Urine Negative (Negative); Color Urine Yellow (Yellow); Glucose Urine UA Negative (Negative); Ketones Urine Negative (Negative); Leukocyte Esterase Ur Trace LEU/UL (Negative); Nitrate Urine Negative (Negative); Non Pathogenic Casts 0-2; Protein Urine Negative (Negative); Specific Grav Ur 1.011 (1.001-1.035); Squamous Epithelial Cell Urine Moderate /hpf (Few); Urobilinogen Urine 0.2 mg/dL (<2.0); pH Urine 5.5 (5.0-9.0)
[2023-10-28] MEDS: SODIUM CHLORIDE 0.9% IV 1,000 ML 999 ML IV CONT (17:32)
[2023-10-28] MEDS: ONDANSETRON INJ 4 MG/2 ML VIAL IV PUSH ×2 (17:33→18:36)
[2023-10-28] MEDS: HYDROmorphone HCL INJ (*CRX) 1 MG/ML SYR 0.5 MG IV PUSH ×2 (17:34→18:37)
[2023-10-28 17:35] LABS: Add Urine Microscopic? YES; Alanine Aminotransferase 55 U/L (6-35); Albumin Level 4.5 g/dL (3.5-5.1); Alkaline Phosphatase 91 U/L (38-126); Anion Gap 11 mmol/L (4-12); Aspartate Amino Transferase 29 U/L (14-36); Bilirubin,Total 0.2 mg/dL (0.2-1.3); Blood Urea Nitrogen 9 mg/dL (7-17); Calcium 9.2 mg/dL (8.4-10.2); Carbon Dioxide 27 mmol/L (22-30); Chloride 101 mmol/L (98-107); Estimated CRCL calculation 76 ml/min; Estimated Glomerular Filt Rate > 60; Glucose 82 mg/dL (65-110); Lipase 34 U/L (23-300); Potassium 4.3 mmol/L (3.4-5.0); Sodium 139 mmol/L (137-145)
[2023-10-28 17:38] VITALS: BP 111/61; PULSE 87; RESP 16; O2SAT 97
[2023-10-28 18:46] VITALS: BP 114/72; PULSE 78; RESP 15; O2SAT 99
[2023-10-28] MEDS: HEPARIN SODIUM LOCK FLUSH 500 UNITS/5 ML VIAL IV PUSH (18:56)
== END 2023-10-28 18:58 | disposition home or self-care (01) ==
PROVIDERS: Emergency Provider Physician Assistant
DX: G89.29 Other chronic pain (principal); F41.9 Anxiety disorder, unspecified; F31.9 Bipolar disorder, unspecified
CPT/HCPCS: 36415; 80053; 81001; 83690; 85025; 87086; 96361; 96374; 96375; 96376; 99284; J1170; J1642; J2405; J7030

== ENCOUNTER 2023-10-29 16:01 | Emergency (ER) | payer OTHER, SELFPAY ==
[2023-10-29 16:06] VITALS: BP 130/82; PULSE 82; RESP 18; TEMP 36.2; O2SAT 100
--- NOTE | 2023-10-29 16:19 | PC.NURSE ---
Patient reports that she just received a call from her pharmacy and that her rx is able to be filled. Patient no longer wanting to be seen. Patient ambulatory out of ED with steady and in no obvious distress.
== END 2023-10-29 16:41 | disposition left against medical advice (07) ==
DX: F11.23 Opioid dependence with withdrawal (principal)
CPT/HCPCS: 99199

== ENCOUNTER 2023-11-16 14:25 | Emergency (ER) | payer OTHER, SELFPAY ==
--- NOTE | 2023-11-16 15:52 | ED.URI ---
HPI - URI/Sore Throat General Chief Complaint: Upper Respiratory Infection Stated Complaint: was exposed to covid, miserable Focused HPI: 33-year-old with a history of stage IV lymphoma presents emergency department with concerns for COVID. She is well-known to our emergency department for drug-seeking behavior and poorly controlled pain. her oncologist is Dr. Gabriel Salmeron at [facility]. She is reporting nausea, vomiting, diarrhea, generalized body aches. Denies known fever. States she was recently exposed to COVID From family members. Repeatedly stating that she has 1 dose of her pain medications left. GENERAL: Well-appearing, well-nourished, and in no acute distress. HEAD: Normocephalic, atraumatic. CHEST: Clear to auscultation. ?No respiratory distress. HEART: Regular rate and rhythm.? NEURO: ?Alert and oriented x3. Patient screened in triage and initial orders placed.? ?Additional care and disposition to be based upon?diagnostic testing and treatment. History of Present Illness HPI Narrative: 33-year-old with a history of stage IV lymphoma presents emergency department with concerns for COVID. She is well-known to our emergency department for drug-seeking behavior and poorly controlled pain. her oncologist is Dr. Gabriel Salmeron at [facility]. She is reporting nausea, vomiting, diarrhea, generalized body aches. Denies known fever. States she was recently exposed to COVID From family members. Repeatedly stating that she has 1 dose of her pain medications left. Related Data Home Medications Medication Instructions Recorded Confirmed hydroxyzine HCl 25 mg tablet 25 mg PO TID 03/21/23 03/27/23 methylprednisolone 4 mg tablets in mg 03/21/23 03/21/23 a dose pack hydroxyzine HCl 25 mg tablet mg 09/30/23 ibuprofen 600 mg tablet mg 09/30/23 megestrol 400 mg/10 mL (40 mg/mL) mg 09/30/23 oral suspension morphine 30 mg immediate release mg 09/30/23 tablet ondansetron 4 mg disintegrating mg 09/30/23 tablet pregabalin 50 mg capsule mg 09/30/23 promethazine 25 mg rectal mg RECTAL 09/30/23 suppository (Promethegan) valacyclovir 500 mg tablet mg 09/30/23 Allergies Allergy/AdvReac Type Severity Reaction Status Date / Time azithromycin AdvReac Nausea Verified 10/28/23 15:15 codeine AdvReac Vomiting Verified 10/28/23 15:15 diphenhydramine AdvReac Jittery Verified 10/28/23 15:15 [From Benadryl] pecan nut AdvReac Nausea and Verified 10/28/23 15:15 Vomiting Review of Systems Review of Systems: All systems reviewed & are unremarkable except as noted in HPI and below PMFSH Past Medical History Medical History Anxiety Atypical bipolar disorder Drug-induced psychotic disorder Ectopic History of heroin use Methamphetamine abuse, episodic MRSA infection buttock and leg during last lengthy incarceration (2020) Surgical History Surgical History History of breast surgery 2018 or 2019, 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 L Side. History of salpingo-oophorectomy Social History Social History Social History: Currently living with boyfriend. Full Code. Surrogate decision maker - Isaiah Beverly (step-dad), if unavailable then Marlene Carbone (mom). Smoking packs per day: 1 Smoking cigarettes per day: 20.0 Years smoked: 11 Smoking pack-years: 11.00 Smoking status: Current every day smoker Tobacco type: cigarettes Alcohol intake: current Drinks per week: 1 Alcohol use details: social Substance use: former Substance use type: methamphetamine Other substance usage details: QUIT USING EARLY DEC 2022 D/T DIAGNOSIS & SURGERY Last use: last use of heroin-September 2014 Lack of Transportation: No Lack of Food: Never True Current Housing: I Have Housing Con
== END 2023-11-16 17:11 | disposition left against medical advice (07) ==
LOC: ANHED 16:44
PROVIDERS: Emergency Provider Physician Assistant
DX: Z20.822 Contact with and (suspected) exposure to COVID-19 (principal); C85.90 Non-Hodgkin lymphoma, unspecified, unspecified site; F17.210 Nicotine dependence, cigarettes, uncomplicated; Z86.14 Personal history of Methicillin resistant Staphylococcus aureus infection; Z90.79 Acquired absence of other genital organ(s)
CPT/HCPCS: 99281

== ENCOUNTER 2023-12-01 16:17 | Emergency (ER) | payer OTHER, SELFPAY ==
--- NOTE | 2023-12-01 16:55 | PC.NURSE ---
PT HAS NOW DECIDED TO LEAVE SINCE WE ARE SO BUSY. ADVISED TO STAY AND THE PATIENT IS AWARE TO COME BACK IF ANY CONCERNS.
== END 2023-12-01 17:03 | disposition left against medical advice (07) ==
LOC: ANHED 17:02
DX: Z53.21 Procedure and treatment not carried out due to patient leaving prior to being seen by health care provider (principal)
CPT/HCPCS: 99199

== ENCOUNTER 2023-12-03 15:09 | Emergency (ER) | payer OTHER, SELFPAY ==
[2023-12-03 15:12] VITALS: BP 105/65; PULSE 87; RESP 18; TEMP 36.8; O2SAT 100
--- NOTE | 2023-12-03 15:25 | ED.GENADULT ---
HPI - General Adult General Chief complaint: Nausea/Vomiting/Diarrhea Stated complaint: n/v Time Seen by Provider: 12/03/23 15:09 History of Present Illness HPI narrative: 33-year-old female presented to the emergency department for evaluation for persistent nausea and vomiting. Patient does have lymphoma and has restarted taking her chemotherapy. Patient reports that she has had increased nausea and vomiting over the last few days. Patient presented the ED seeking IV fluids and medication for nausea control. Related Data Home Medications Medication Instructions Recorded Confirmed hydroxyzine HCl 25 mg tablet 25 mg PO TID 03/21/23 03/27/23 methylprednisolone 4 mg tablets in mg 03/21/23 03/21/23 a dose pack hydroxyzine HCl 25 mg tablet mg 09/30/23 ibuprofen 600 mg tablet mg 09/30/23 megestrol 400 mg/10 mL (40 mg/mL) mg 09/30/23 oral suspension morphine 30 mg immediate release mg 09/30/23 tablet ondansetron 4 mg disintegrating mg 09/30/23 tablet pregabalin 50 mg capsule mg 09/30/23 promethazine 25 mg rectal mg RECTAL 09/30/23 suppository (Promethegan) valacyclovir 500 mg tablet mg 09/30/23 Allergies Allergy/AdvReac Type Severity Reaction Status Date / Time azithromycin AdvReac Nausea Verified 10/28/23 15:15 codeine AdvReac Vomiting Verified 10/28/23 15:15 diphenhydramine AdvReac Jittery Verified 10/28/23 15:15 [From Benadryl] pecan nut AdvReac Nausea and Verified 10/28/23 15:15 Vomiting Review of Systems Review of Systems: All systems reviewed & are unremarkable except as noted in HPI and below PMFSH Past Medical History Medical History Anxiety Atypical bipolar disorder Drug-induced psychotic disorder Ectopic History of heroin use Methamphetamine abuse, episodic MRSA infection buttock and leg during last lengthy incarceration (2020) Surgical History Surgical History History 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 L Side. History of salpingo-oophorectomy Social History Social History Social History: Currently living with boyfriend. Full Code. Surrogate decision maker - Isaiah Beverly (step-dad), if unavailable then Marlene Carbone (mom). Smoking packs per day: 1 Smoking cigarettes per day: 20.0 Years smoked: 11 Smoking pack-years: 11.00 Smoking status: Current every day smoker Tobacco type: cigarettes Alcohol intake: current Drinks per week: 1 Alcohol use details: social Substance use: former Substance use type: methamphetamine Other substance usage details: QUIT USING EARLY DEC 2022 D/T DIAGNOSIS & SURGERY Last use: last use of heroin-September 2014 Lack of Transportation: No Lack of Food: Never True Current Housing: I Have Housing Concerned About Future Housing: No Difficulty Paying Gas/Electric Bills: No Difficulty Paying for Meds: No Currently Unemployed: No Education: High School Diploma/GED Difficulty w/ Childcare or Family Care: No Living arrangements: with friend(s) Additional living arrangements comments: boyfriend Spiritual care concerns: No Exam Narrative: APPEARANCE: Well-appearing HEAD: normocephalic, atraumatic. EYES: PERRLA/EOMI, conjunctivae clear. NOSE: Normal no drainage EARS:TMS clear with good light reflex. THROAT: Pharynx clear, no exudate. NECK: Supple. No adenopathy, no masses. RESPIRATORY: Airway patent, respirations nonlabored. Clear to auscultation bilaterally, no rales, rhonchi, wheezing. CARDIOVASCULAR: Regular rate and rhythm without murmurs rubs or gallops. ABDOMINAL: Soft, nontender, nondistended, normal bowel sounds MUSCULOSKELETAL: Moves all extremities. Strength/ROM intact, No edema, No calf tenderness. NEURO: Alert. Cranial nerves II through XII inta
[2023-12-03] MEDS: SODIUM CHLORIDE 0.9% IV 1,000 ML 999 ML IV CONT ×2 (15:59→16:56)
[2023-12-03] MEDS: HALOPERIDOL LACTATE 5 MG/ML VIAL IM (15:59)
[2023-12-03 16:01] LABS: Basophils Percent Auto 0.4 % (0.2-1.2); Eosinophils Absolute Auto 0.2 K/mm3 (0-0.3); Eosinophils Percent Auto 2.7 % (0-4.4); Hemoglobin 13.1 g/dL (12.0-15.0); Immature Granulocyte Absolute 0.02 K/mm3 (0.00-0.031); Immature Granulocyte Percent A 0.3 % (0-0.5); Lymphocytes Absolute Auto 0.34 K/mm3 (0.9-3.2); Lymphocytes Percent Auto 4.6 % (18.3-44.2); Mean Corpuscular HGB Conc 34.5 g/dl (32-36); Mean Corpuscular Hemoglobin 31.3 pg (26-34); Mean Corpuscular Volume 90.7 fl (80-100); Mean Platelet Volume 9.5 fl (7.4-10.4); Monocytes Absolute Auto 0.6 K/mm3 (0.1-0.6); Monocytes Percent Auto 7.7 % (2.6-8.5); Neutrophils Absolute Auto 6.3 K/mm3 (1.3-6.7); Neutrophils Percent Auto 84.3 % (45.5-73.1); Platelet Count Result 206 k/mm3 (150-375); Red Blood Count 4.19 M/mm3 (4.2-5.4); Red Cell Distribution Width 13.5 % (11.5-14.5); White Blood Count 7.4 K/mm3 (4.5-10.0)
[2023-12-03 16:05] LABS: Add Urine Microscopic? YES; Appearance Urine Clear (Clear); Bacteria Urine Rare /hpf; Bilirubin Urine Negative (Negative); Blood Urine Negative (Negative); Color Urine Yellow (Yellow); Glucose Urine UA Negative (Negative); Ketones Urine Negative (Negative); Leukocyte Esterase Ur Trace LEU/UL (Negative); Nitrate Urine Negative (Negative); Non Pathogenic Casts 0-2; Protein Urine Negative (Negative); RBC Urine 0-2 /hpf (0-2); Squamous Epithelial Cell Urine Occasional /hpf (Few); Urobilinogen Urine 0.2 mg/dL (<2.0); WBC Urine 0-5 /hpf (0-3); pH Urine 5.5 (5.0-9.0)
[2023-12-03 16:10] LABS: Alanine Aminotransferase 29 U/L (6-35); Alkaline Phosphatase 58 U/L (38-126); Anion Gap 13 mmol/L (4-12); Aspartate Amino Transferase 35 U/L (14-36); Bilirubin,Total 0.3 mg/dL (0.2-1.3); Blood Urea Nitrogen 17 mg/dL (7-17); Carbon Dioxide 21 mmol/L (22-30); Chloride 103 mmol/L (98-107); Estimated CRCL calculation 51 ml/min; Estimated Glomerular Filt Rate 52; Glucose 78 mg/dL (65-110); Lactic Acid Reflex 2.2 mmol/L (0.7-2.0); Lipase 48 U/L (23-300); Potassium 3.8 mmol/L (3.4-5.0); Sodium 137 mmol/L (137-145)
[2023-12-03 16:30] VITALS: BP 112/74; PULSE 70; RESP 16; O2SAT 98
[2023-12-03] MEDS: KETOROLAC 15 MG/ML VIAL (*BKC) IV PUSH (16:51)
[2023-12-03] MEDS: ONDANSETRON INJ 4 MG/2 ML VIAL IV PUSH (17:08)
[2023-12-03] MEDS: HYDROmorphone HCL INJ (*CRX) 1 MG/ML SYR 0.5 MG IV PUSH (17:26)
[2023-12-03] MEDS: HEPARIN SODIUM LOCK FLUSH 500 UNITS/5 ML SYRINGE (18:15)
[2023-12-03 18:20] VITALS: BP 109/71; PULSE 64; RESP 16; O2SAT 96
[2023-12-03 18:58] LABS: Reflex Lactic Acid Yes or No Add Lactic
== END 2023-12-03 18:20 | disposition home or self-care (01) ==
PROVIDERS: Emergency Provider Emergency Medicine
DX: R11.2 Nausea with vomiting, unspecified (principal); R10.9 Unspecified abdominal pain; C85.90 Non-Hodgkin lymphoma, unspecified, unspecified site; F31.9 Bipolar disorder, unspecified; F41.9 Anxiety disorder, unspecified; F17.210 Nicotine dependence, cigarettes, uncomplicated; Z86.14 Personal history of Methicillin resistant Staphylococcus aureus infection; Z90.79 Acquired absence of other genital organ(s)
CPT/HCPCS: 36415; 80053; 81001; 83605; 83690; 85025; 96361; 96372; 96374; 96375; 99284; J1170; J1630; J1885; J2405; J7030

== ENCOUNTER 2023-12-04 05:31 | Emergency (ER) | payer OTHER, SELFPAY ==
[2023-12-04 05:35] VITALS: BP 131/90; PULSE 72; RESP 16; TEMP 36.6; O2SAT 100
[2023-12-04] MEDS: ONDANSETRON INJ 4 MG/2 ML VIAL IV PUSH (05:54)
[2023-12-04] MEDS: SODIUM CHLORIDE 0.9% IV 1,000 ML 999 ML IV CONT (05:54)
--- NOTE | 2023-12-04 05:56 | PC.NURSE ---
Patient requesting pain medications and states Can you let the doctor know that I am not using anymore . EDP Dr. Grajeda notified.
--- NOTE | 2023-12-04 06:05 | ED.GENADULT ---
HPI - General Adult General Chief complaint: Unspecified Stated complaint: CANCER PAIN Time Seen by Provider: 12/04/23 05:38 History of Present Illness HPI narrative: Patient is a 33-year-old female who presents to the emergency department this morning complaining of generalized pain. Patient states that she is currently undergoing chemo for her cancer and was seen at our facility earlier today and administered IV Dilaudid which helped her symptoms and now she is back requesting more narcotics. Patient does have a history of narcotic abuse and was informed multiple times by multiple staff members that she will not be administered any narcotics per her oncologist. Patient states that she has been nauseous and vomiting and has diffuse pain. Related Data Home Medications Medication Instructions Recorded Confirmed hydroxyzine HCl 25 mg tablet 25 mg PO TID 03/21/23 03/27/23 methylprednisolone 4 mg tablets in mg 03/21/23 03/21/23 a dose pack hydroxyzine HCl 25 mg tablet mg 09/30/23 ibuprofen 600 mg tablet mg 09/30/23 megestrol 400 mg/10 mL (40 mg/mL) mg 09/30/23 oral suspension morphine 30 mg immediate release mg 09/30/23 tablet ondansetron 4 mg disintegrating mg 09/30/23 tablet pregabalin 50 mg capsule mg 09/30/23 promethazine 25 mg rectal mg RECTAL 09/30/23 suppository (Promethegan) valacyclovir 500 mg tablet mg 09/30/23 Allergies Allergy/AdvReac Type Severity Reaction Status Date / Time azithromycin AdvReac Nausea Verified 10/28/23 15:15 codeine AdvReac Vomiting Verified 10/28/23 15:15 diphenhydramine AdvReac Jittery Verified 10/28/23 15:15 [From Benadryl] pecan nut AdvReac Nausea and Verified 10/28/23 15:15 Vomiting Review of Systems Review of Systems: All systems are reviewed and are negative unless stated otherwise in the HPI. 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 L Side. History of salpingo-oophorectomy Social History Social History Social History: Currently living with boyfriend. Full Code. Surrogate decision maker - Isaiah Beverly (step-dad), if unavailable then Marlene Geigerntz (mom). Smoking packs per day: 1 Smoking cigarettes per day: 20.0 Years smoked: 11 Smoking pack-years: 11.00 Smoking status: Current every day smoker Tobacco type: cigarettes Alcohol intake: current Drinks per week: 1 Alcohol use details: social Substance use: former Substance use type: methamphetamine Other substance usage details: QUIT USING EARLY DEC 2022 D/T DIAGNOSIS & SURGERY Last use: last use of heroin-September 2014 Lack of Transportation: No Lack of Food: Never True Current Housing: I Have Housing Concerned About Future Housing: No Difficulty Paying Gas/Electric Bills: No Difficulty Paying for Meds: No Currently Unemployed: No Education: High School Diploma/GED Difficulty w/ Childcare or Family Care: No Living arrangements: with friend(s) Additional living arrangements comments: boyfriend Spiritual care concerns: No Exam Narrative: General: Alert, awake, afebrile, in no acute distress. HEENT: PERRL, no rhinorrhea, no post nasal drip, oropharynx clear. Cardiovascular: Regular rate and rhythm, no murmurs, rubs or gallops, no peripheral edema. Respiratory: Clear to auscultation bilaterally, no tachypnea, no wheezing, no rhonchi, no rubs, no respiratory distress. Abdomen: Soft, nontender, nondistended, no rebound, no guarding,
[2023-12-04] MEDS: KETOROLAC 15 MG/ML VIAL (*BKC) IV PUSH ×2 (06:14→06:43)
== END 2023-12-04 07:14 | disposition home or self-care (01) ==
PROVIDERS: Emergency Provider Emergency Medicine
DX: G89.3 Neoplasm related pain (acute) (chronic) (principal); R11.2 Nausea with vomiting, unspecified; C85.90 Non-Hodgkin lymphoma, unspecified, unspecified site; F17.210 Nicotine dependence, cigarettes, uncomplicated; Z86.14 Personal history of Methicillin resistant Staphylococcus aureus infection; Z90.79 Acquired absence of other genital organ(s); Z79.60 Long term (current) use of unspecified immunomodulators and immunosuppressants
CPT/HCPCS: 96361; 96374; 96375; 99284; J1885; J2405; J7030

== ENCOUNTER 2023-12-04 14:14 | Emergency (ER) | payer OTHER, SELFPAY ==
[2023-12-04 14:25] VITALS: BP 112/86; PULSE 101; RESP 18; TEMP 36.6; O2SAT 100
--- NOTE | 2023-12-04 14:45 | ED.GENADULT ---
HPI - General Adult General Chief complaint: Nausea/Vomiting/Diarrhea Stated complaint: vomiting and diarrhea Time Seen by Provider: 12/04/23 14:20 History of Present Illness HPI narrative: 33-year-old female with active lymphoma and chemotherapy presents to the emergency department complaining of nausea vomiting diarrhea and diffuse abdominal pain. Patient is on p.o. morphine but reports she ran out of her medications 2 days ago. Patient has multiple visits to the emergency department over the last 2 days. patient is currently getting chemotherapy for underlying lymphoma, patient's last chemotherapy was approximately 4 days ago. Patient was evaluated in the emergency department yesterday afternoon, patient was also evaluated emergency department early this morning, and then went to [place] and then came back to our emergency department. Related Data Home Medications Medication Instructions Recorded Confirmed hydroxyzine HCl 25 mg tablet 25 mg PO TID 03/21/23 03/27/23 methylprednisolone 4 mg tablets in mg 03/21/23 03/21/23 a dose pack hydroxyzine HCl 25 mg tablet mg 09/30/23 ibuprofen 600 mg tablet mg 09/30/23 megestrol 400 mg/10 mL (40 mg/mL) mg 09/30/23 oral suspension morphine 30 mg immediate release mg 09/30/23 tablet ondansetron 4 mg disintegrating mg 09/30/23 tablet pregabalin 50 mg capsule mg 09/30/23 promethazine 25 mg rectal mg RECTAL 09/30/23 suppository (Promethegan) valacyclovir 500 mg tablet mg 09/30/23 Allergies Allergy/AdvReac Type Severity Reaction Status Date / Time azithromycin AdvReac Nausea Verified 12/04/23 14:28 codeine AdvReac Vomiting Verified 12/04/23 14:28 diphenhydramine AdvReac Jittery Verified 12/04/23 14:28 [From Benadryl] pecan nut AdvReac Nausea and Verified 12/04/23 14:28 Vomiting Review of Systems Review of Systems: All systems reviewed & are unremarkable except as noted in HPI and below PMFSH Past Medical History Medical History Anxiety Atypical bipolar disorder Drug-induced psychotic disorder Ectopic History of heroin use Methamphetamine abuse, episodic MRSA infection buttock and leg during last lengthy incarceration (2020) Surgical History Surgical History History of breast 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 L Side. History of salpingo-oophorectomy Social History Social History Social History: Currently living with boyfriend. Full Code. Surrogate decision maker - Isaiah Beverly (step-dad), if unavailable then Marlene Carbone (mom). Smoking packs per day: 1 Smoking cigarettes per day: 20.0 Years smoked: 11 Smoking pack-years: 11.00 Smoking status: Current every day smoker Tobacco type: cigarettes Alcohol intake: current Drinks per week: 1 Alcohol use details: social Substance use: former Substance use type: methamphetamine Other substance usage details: QUIT USING EARLY DEC 2022 D/T DIAGNOSIS & SURGERY Last use: last use of heroin-September 2014 Lack of Transportation: No Lack of Food: Never True Current Housing: I Have Housing Concerned About Future Housing: No Difficulty Paying Gas/Electric Bills: No Difficulty Paying for Meds: No Currently Unemployed: No Education: High School Diploma/GED Difficulty w/ Childcare or Family Care: No Living arrangements: with friend(s) Additional living arrangements comments: boyfriend Spiritual care concerns: No Exam Narrative: APPEARANCE: uncomfortable appearing HEAD: normocephalic, atraumatic. EYES: PERRLA/EOMI, conjunctivae clear. NOSE: Normal no drainage EARS:TMS clear with good light reflex. THROAT: Pharynx clear, no exudate. NECK: Supple. No adenopathy, no masses. RESPIRATORY: Airway patent, respirations nonlabor
[2023-12-04] MEDS: HYDROmorphone HCL INJ (*CRX) 1 MG/ML SYR 0.5 MG IV PUSH (15:32)
[2023-12-04] MEDS: ONDANSETRON INJ 4 MG/2 ML VIAL IV PUSH (15:32)
[2023-12-04] MEDS: SODIUM CHLORIDE 0.9% IV 1,000 ML 999 ML IV CONT (15:33)
[2023-12-04 15:34] LABS: Basophils Percent Auto 0.4 % (0.2-1.2); Eosinophils Absolute Auto 0.1 K/mm3 (0-0.3); Eosinophils Percent Auto 0.9 % (0-4.4); Hematocrit 37.2 % (37.0-47.0); Hemoglobin 12.8 g/dL (12.0-15.0); Immature Granulocyte Absolute 0.04 K/mm3 (0.00-0.031); Immature Granulocyte Percent A 0.8 % (0-0.5); Lymphocytes Absolute Auto 0.27 K/mm3 (0.9-3.2); Lymphocytes Percent Auto 5.1 % (18.3-44.2); Mean Corpuscular HGB Conc 34.4 g/dl (32-36); Mean Corpuscular Hemoglobin 31.1 pg (26-34); Mean Corpuscular Volume 90.5 fl (80-100); Mean Platelet Volume 9.2 fl (7.4-10.4); Monocytes Absolute Auto 0.3 K/mm3 (0.1-0.6); Monocytes Percent Auto 5.3 % (2.6-8.5); Neutrophils Absolute Auto 4.7 K/mm3 (1.3-6.7); Neutrophils Percent Auto 87.5 % (45.5-73.1); Platelet Count Result 185 k/mm3 (150-375); Red Blood Count 4.11 M/mm3 (4.2-5.4); Red Cell Distribution Width 13.5 % (11.5-14.5); White Blood Count 5.3 K/mm3 (4.5-10.0)
[2023-12-04 15:44] LABS: Lactic Acid Reflex 1.3 mmol/L (0.7-2.0)
[2023-12-04 15:46] LABS: Alanine Aminotransferase 29 U/L (6-35); Albumin Level 3.8 g/dL (3.5-5.1); Alkaline Phosphatase 53 U/L (38-126); Anion Gap 9 mmol/L (4-12); Aspartate Amino Transferase 32 U/L (14-36); Bilirubin,Total 0.4 mg/dL (0.2-1.3); Blood Urea Nitrogen 8 mg/dL (7-17); Calcium 9.5 mg/dL (8.4-10.2); Carbon Dioxide 25 mmol/L (22-30); Chloride 107 mmol/L (98-107); Estimated CRCL calculation 77 ml/min; Estimated Glomerular Filt Rate > 60; Glucose 88 mg/dL (65-110); Potassium 4.2 mmol/L (3.4-5.0); Sodium 141 mmol/L (137-145)
--- NOTE | 2023-12-04 16:07 | PC.NURSE ---
PT WAS SEEN BY TRIAGE NURSE BRISKLY WALKING OUT OF DOOR. SHE DID NOT SAY ANYTHING TO ANYONE. IVF FOUND RUNNING INTO THE TRASH CAN WITH BLOODY PAPER TOWELS.
--- NOTE | 2023-12-04 16:32 | PC.NURSE ---
IV catheter and j loop found in the trash can of the patients room, with blood on floor, stretcher, sink, trash can. patient was seen walking out of the hospital by another staff member.
== END 2023-12-04 16:32 | disposition left against medical advice (07) ==
PROVIDERS: Emergency Provider Emergency Medicine
DX: R11.2 Nausea with vomiting, unspecified (principal); C85.90 Non-Hodgkin lymphoma, unspecified, unspecified site; Z86.14 Personal history of Methicillin resistant Staphylococcus aureus infection; Z90.79 Acquired absence of other genital organ(s); Z79.60 Long term (current) use of unspecified immunomodulators and immunosuppressants
CPT/HCPCS: 36415; 80053; 83605; 85025; 96361; 96374; 96375; 99284; J1170; J1885; J2405; J7030

== ENCOUNTER 2023-12-04 22:46 | Emergency (ER) | payer OTHER, SELFPAY ==
[2023-12-04 22:56] VITALS: BP 129/83; PULSE 96; RESP 18; TEMP 36.4; O2SAT 99
== END 2023-12-04 22:56 | disposition left against medical advice (07) ==
DX: R11.2 Nausea with vomiting, unspecified (principal)
CPT/HCPCS: 99199

== ENCOUNTER 2023-12-06 20:42 | Emergency (ER) | payer OTHER, SELFPAY ==
[2023-12-06 20:43] VITALS: BP 134/88; PULSE 72; RESP 15; TEMP 37.2; O2SAT 99
--- NOTE | 2023-12-06 20:57 | PC.NURSE ---
Patient on BSC at this time. Patient given wash cloths to clean up.
--- NOTE | 2023-12-06 21:08 | ED.NAVMDI ---
HPI - Nausea/Vomiting/Diarrhea General Chief complaint: Nausea/Vomiting/Diarrhea Stated complaint: CP INDUCED BY N/V/D Time Seen by Provider: 12/06/23 21:00 Source: patient Mode of arrival: ambulatory Limitations: no limitations History of Present Illness HPI Narrative: This is a 33-year-old female with history of lymphoma who is here for nausea vomiting diarrhea and abdominal pain. Patient is very well known to this emergency department and here consistently for narcotic seeking. Today she is very concerned about possible C diff that she has had diarrhea since recent chemotherapy. Endorses nausea vomiting as well. Denies chest syncope complaints Related Data Home Medications Medication Instructions Recorded Confirmed hydroxyzine HCl 25 mg tablet 25 mg PO TID 03/21/23 03/27/23 methylprednisolone 4 mg tablets in mg 03/21/23 03/21/23 a dose pack hydroxyzine HCl 25 mg tablet mg 09/30/23 ibuprofen 600 mg tablet mg 09/30/23 megestrol 400 mg/10 mL (40 mg/mL) mg 09/30/23 oral suspension morphine 30 mg immediate release mg 09/30/23 tablet ondansetron 4 mg disintegrating mg 09/30/23 tablet pregabalin 50 mg capsule mg 09/30/23 promethazine 25 mg rectal mg RECTAL 09/30/23 suppository (Promethegan) valacyclovir 500 mg tablet mg 09/30/23 Allergies Allergy/AdvReac Type Severity Reaction Status Date / Time azithromycin AdvReac Nausea Verified 12/04/23 14:28 codeine AdvReac Vomiting Verified 12/04/23 14:28 diphenhydramine AdvReac Jittery Verified 12/04/23 14:28 [From Benadryl] pecan nut AdvReac Nausea and Verified 12/04/23 14:28 Vomiting Review of Systems Review of Systems: All systems as dictated in HPI PMFSH Past Medical History Medical History Anxiety Atypical bipolar disorder Drug-induced psychotic disorder Ectopic History of heroin use Methamphetamine abuse, episodic MRSA infection buttock and leg during last lengthy incarceration (2020) Surgical History Surgical History 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 L Side. History of salpingo-oophorectomy Social History Social History Social History: Currently living with boyfriend. Full Code. Surrogate decision maker - Isaiah Siria (step-dad), if unavailable then Marlene Carbone (mom). Smoking packs per day: 1 Smoking cigarettes per day: 20.0 Years smoked: 11 Smoking pack-years: 11.00 Smoking status: Current every day smoker Tobacco type: cigarettes Alcohol intake: current Drinks per week: 1 Alcohol use details: social Substance use: former Substance use type: methamphetamine Other substance usage details: QUIT USING EARLY DEC 2022 D/T DIAGNOSIS & SURGERY Last use: last use of heroin-September 2014 Lack of Transportation: No Lack of Food: Never True Current Housing: I Have Housing Concerned About Future Housing: No Difficulty Paying Gas/Electric Bills: No Difficulty Paying for Meds: No Currently Unemployed: No Education: High School Diploma/GED Difficulty w/ Childcare or Family Care: No Living arrangements: with friend(s) Additional living arrangements comments: boyfriend Spiritual care concerns: No Exam Narrative: GENERAL: Well-appearing, well-nourished, and in no acute distress. HEAD: Normocephalic, atraumatic. EYES: PERRLA and EOMI. ENT: Nares clear, no rhinorrhea or epistaxis. Mucous membranes moist. Oropharynx without tonsillar hypertrophy exudate or other lesions. NECK: Supple. No adenopathy or masses. CHEST: No respiratory distress. Clear to auscultation. No wheezes rales or rhonchi HEART: Regular rate and rhythm. No murmur heard. Normal peripheral pulses. ABDOMEN: Soft, nontender, nondistended, normal active bowel sounds
[2023-12-06] MEDS: HALOPERIDOL LACTATE 5 MG/ML VIAL IM (21:24)
[2023-12-06] MEDS: KETOROLAC 30 MG/ML VIAL (*BKC) IM (21:25)
[2023-12-06 21:26] LABS: Basophils Absolute Auto 0.1 K/mm3 (0.0-0.1); Basophils Percent Auto 0.9 % (0.2-1.2); Eosinophils Absolute Auto 0.1 K/mm3 (0-0.3); Eosinophils Percent Auto 1.6 % (0-4.4); Hematocrit 34.5 % (37.0-47.0); Hemoglobin 12.1 g/dL (12.0-15.0); Immature Granulocyte Absolute 0.06 K/mm3 (0.00-0.031); Immature Granulocyte Percent A 0.7 % (0-0.5); Lymphocytes Absolute Auto 0.43 K/mm3 (0.9-3.2); Lymphocytes Percent Auto 5.3 % (18.3-44.2); Mean Corpuscular HGB Conc 35.1 g/dl (32-36); Mean Corpuscular Hemoglobin 31.5 pg (26-34); Mean Corpuscular Volume 89.8 fl (80-100); Mean Platelet Volume 9.2 fl (7.4-10.4); Monocytes Percent Auto 12.4 % (2.6-8.5); Neutrophils Absolute Auto 6.4 K/mm3 (1.3-6.7); Neutrophils Percent Auto 79.1 % (45.5-73.1); Platelet Count Result 275 k/mm3 (150-375); Red Blood Count 3.84 M/mm3 (4.2-5.4); Red Cell Distribution Width 13.3 % (11.5-14.5); White Blood Count 8.1 K/mm3 (4.5-10.0)
--- NOTE | 2023-12-06 21:39 | PC.NURSE ---
Patient comes out of room, and states I am going to [facility], since you wont give my pain medication. Patient was informed that she received haldol and toradol. Patient states that isn't going to touch my pain. So I am leaving and going somewhere else that they will give my opiates. Patient left the room and ambulated out of the ED with a steady gait. patient left before risks of leaving before her workup was completed and benefits of staying. Patient eloped after being seen by provider.
[2023-12-06 21:47] LABS: Alanine Aminotransferase 27 U/L (6-35); Albumin Level 4.2 g/dL (3.5-5.1); Alkaline Phosphatase 51 U/L (38-126); Anion Gap 10 mmol/L (4-12); Aspartate Amino Transferase 36 U/L (14-36); Bilirubin,Total 0.4 mg/dL (0.2-1.3); Blood Urea Nitrogen 9 mg/dL (7-17); Calcium 8.6 mg/dL (8.4-10.2); Carbon Dioxide 23 mmol/L (22-30); Chloride 104 mmol/L (98-107); Estimated CRCL calculation 77 ml/min; Estimated Glomerular Filt Rate > 60; Glucose 102 mg/dL (65-110); Lipase 42 U/L (23-300); Magnesium 1.5 mg/dL (1.6-2.3); Potassium 3.3 mmol/L (3.4-5.0); Sodium 137 mmol/L (137-145)
== END 2023-12-06 21:42 | disposition left against medical advice (07) ==
PROVIDERS: Emergency Provider Physician Assistant
DX: K52.9 Noninfective gastroenteritis and colitis, unspecified (principal); F17.210 Nicotine dependence, cigarettes, uncomplicated
CPT/HCPCS: 36415; 80053; 83690; 83735; 85025; 96372; 99284; J1630; J1885

== ENCOUNTER 2023-12-07 15:09 | Emergency (ER) | payer OTHER, SELFPAY ==
[2023-12-07 15:12] VITALS: BP 124/80; PULSE 97; RESP 18; TEMP 36.8; O2SAT 99
--- NOTE | 2023-12-07 15:27 | PC.NURSE ---
Patient ambulated out of department to sit outside and smoke a cigarette.
--- NOTE | 2023-12-07 17:53 | PC.NURSE ---
Pt called to be placed in exam room, pt not in waiting room or outside
--- NOTE | 2023-12-07 18:05 | PC.NURSE ---
Patient left after triage
== END 2023-12-07 18:20 | disposition left against medical advice (07) ==
LOC: ANHED 18:11
DX: R19.7 Diarrhea, unspecified (principal); R11.0 Nausea; C85.90 Non-Hodgkin lymphoma, unspecified, unspecified site; Z53.21 Procedure and treatment not carried out due to patient leaving prior to being seen by health care provider
CPT/HCPCS: 99199

== ENCOUNTER 2023-12-07 19:26 | Emergency (ER) | payer OTHER, SELFPAY | END 2023-12-07 20:41 | disposition left against medical advice (07) | LOC: ANHED 20:24 | DX: Z53.21 Procedure and treatment not carried out due to patient leaving prior to being seen by health care provider (principal) | CPT/HCPCS: 99199 ==

== ENCOUNTER 2023-12-13 17:49 | Emergency (ER) | payer OTHER, SELFPAY ==
[2023-12-13 18:03] VITALS: BP 100/50; PULSE 80; RESP 18; TEMP 36.6; O2SAT 99
--- NOTE | 2023-12-13 19:45 | PC.NURSE ---
Patient comes to desk with visitor and states I am leaving, I don't want to wait anymore. Patient left ED with steady gait with visitor next to her. Patient left before risks of leaving before being seen by a provider and benefits of staying for evaluation. Patient had belongings with her. Patient marked as left without being seen, triaged.
== END 2023-12-13 19:54 | disposition left against medical advice (07) ==
LOC: ANHED 19:54
DX: R11.2 Nausea with vomiting, unspecified (principal)
CPT/HCPCS: 99199

== ENCOUNTER 2023-12-23 14:42 | Emergency (ER) | payer OTHER, SELFPAY ==
[2023-12-23 15:00] VITALS: BP 98/60; PULSE 139; RESP 20; TEMP 36.6; O2SAT 97
[2023-12-23 15:58] LABS: BEDSIDEPREGUCG Negative (Negative)
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
[2023-12-23 16:16] LABS: Influenza A QL RT-PCR Negative (Negative); Influenza B QL RT-PCR Negative (Negative); RSV RNA, RT-PCR Negative (Negative); SARS-CoV-2 RNA PCR Negative (Negative)
--- NOTE | 2023-12-23 16:23 | PC.NURSE ---
pt ambulated out of ems doors. EDP made aware. pt denied any SI/HI.
== END 2023-12-23 16:25 | disposition left against medical advice (07) ==
PROVIDERS: Emergency Provider Emergency Medicine
DX: S61.512A Laceration without foreign body of left wrist, initial encounter (principal); R45.88 Nonsuicidal self-harm; F17.210 Nicotine dependence, cigarettes, uncomplicated; Z86.14 Personal history of Methicillin resistant Staphylococcus aureus infection; Z90.79 Acquired absence of other genital organ(s); W27.2XXA Contact with scissors, initial encounter
CPT/HCPCS: 81025; 87637; 99282; 99283

== ENCOUNTER 2024-01-23 14:15 | Emergency (ER) | payer OTHER, SELFPAY ==
--- NOTE | 2024-01-23 14:22 | PC.NURSE ---
Called patient in [facility] no response. Pt seen outside smoking.
[2024-01-23 14:28] VITALS: BP 107/70; PULSE 84; RESP 16; TEMP 36.6; O2SAT 98
--- NOTE | 2024-01-23 14:35 | PC.NURSE ---
upon finishing triage process pt states I am going to go back outside to smoke now.
[2024-01-23 15:04] VITALS: BP 110/65; PULSE 84; RESP 16; TEMP 36.6; O2SAT 98
--- NOTE | 2024-01-23 15:22 | ED.DENTAL ---
HPI - Dental/Oral General Chief complaint: Dental/Oral Stated complaint: possible dental infection R side Time Seen by Provider: 01/23/24 15:06 Source: patient Mode of arrival: ambulatory Limitations: no limitations History of Present Illness HPI Narrative: patient is a 33-year-old female, with past medical history of metastatic lymphoma, who presents the ED with report of right lower dental pain. Patient reports she has an impacted right lower wisdom tooth, tooth number 32. Is on a wait list to have oral surgery in [facility]. States she has had issues with this over the years, but has had worsening pain over the last couple of days. Has been taking Tylenol and naproxen. Has not had anything for pain today. Denies difficulty breathing, difficulty swallowing, fevers. Patient is currently on Suboxone. She is well-known to our facility for drug-seeking behavior. Related Data Home Medications Medication Instructions Recorded Confirmed hydroxyzine HCl 25 mg tablet 25 mg PO TID 03/21/23 03/27/23 methylprednisolone 4 mg tablets in mg 03/21/23 03/21/23 a dose pack hydroxyzine HCl 25 mg tablet mg 09/30/23 ibuprofen 600 mg tablet mg 09/30/23 megestrol 400 mg/10 mL (40 mg/mL) mg 09/30/23 oral suspension morphine 30 mg immediate release mg 09/30/23 tablet ondansetron 4 mg disintegrating mg 09/30/23 tablet pregabalin 50 mg capsule mg 09/30/23 promethazine 25 mg rectal mg RECTAL 09/30/23 suppository (Promethegan) valacyclovir 500 mg tablet mg 09/30/23 Allergies Allergy/AdvReac Type Severity Reaction Status Date / Time azithromycin AdvReac Nausea Verified 01/23/24 14:16 codeine AdvReac Vomiting Verified 01/23/24 14:16 diphenhydramine AdvReac Jittery Verified 01/23/24 14:16 [From Benadryl] pecan nut AdvReac Nausea and Verified 01/23/24 14:16 Vomiting pregabalin AdvReac Unknown Verified 01/23/24 14:16 Review of Systems Review of Systems: All systems reviewed & are unremarkable except as noted in HPI. All systems reviewed & are unremarkable except as noted in HPI and below PMFSH Past Medical History Medical History Anxiety Atypical bipolar disorder Drug-induced psychotic disorder Ectopic History of heroin use Methamphetamine abuse, episodic MRSA infection buttock and leg during last lengthy incarceration (2020) Surgical History Surgical History History of breast surgery 2018 or 2018, due to butane high pressure cleaner requiring I/D and subsequent wound care. L Side. History of salpingo-oophorectomy Social History Social History Social History: Currently living with boyfriend. Full Code. Surrogate decision maker - Isaiah Beverly (step-dad), if unavailable then Marlene Carbone (mom). Smoking packs per day: 1 Smoking cigarettes per day: 20.0 Years smoked: 11 Smoking pack-years: 11.00 Smoking status: Current every day smoker Tobacco type: cigarettes Alcohol intake: current Drinks per week: 1 Alcohol use details: social Substance use: former Substance use type: methamphetamine Other substance usage details: QUIT USING EARLY DEC 2022 D/T DIAGNOSIS & SURGERY Last use: last use of heroin-September 2014 Lack of Transportation: No Lack of Food: Never True Current Housing: I Have Housing Concerned About Future Housing: No Difficulty Paying Gas/Electric Bills: No Difficulty Paying for Meds: No Currently Unemployed: No Education: High School Diploma/GED Difficulty w/ Childcare or Family Care: No Living arrangements: with friend(s) Additional living arrangements comments: boyfriend Spiritual care concerns: No Exam Narrative: GENERAL: Chronically ill appearing, thin, non-toxic, in no acute distress. HEAD: Normocephalic, atraumatic. ENT: Scattered denta
[2024-01-23] MEDS: AMOXICILLIN/CLAVULANATE K 875-125 MG TAB 1 TABLET PO (15:40)
[2024-01-23] MEDS: KETOROLAC (*BKC) 60 MG/2 ML VIAL IM (15:40)
--- NOTE | 2024-01-23 17:25 | PC.NURSE ---
pt kael grider called at this time and requested an update
== END 2024-01-23 15:47 | disposition home or self-care (01) ==
LOC: ANHED 15:27
PROVIDERS: Emergency Provider Physician Assistant
DX: K04.7 Periapical abscess without sinus (principal); C85.90 Non-Hodgkin lymphoma, unspecified, unspecified site; Z86.14 Personal history of Methicillin resistant Staphylococcus aureus infection; Z90.79 Acquired absence of other genital organ(s)
CPT/HCPCS: 96372; 99283; A9270; J1885

== ENCOUNTER 2024-03-10 14:43 | Emergency (ER) | payer OTHER, SELFPAY ==
[2024-03-10 14:46] VITALS: BP 112/90; PULSE 95; RESP 16; TEMP 36.6; O2SAT 96
--- NOTE | 2024-03-10 17:27 | ED.ANXIETY ---
HPI - Anxiety General Chief Complaint: Anxiety Stated Complaint: anxiety, delusional Time Seen by Provider: 03/10/24 17:11 Source: patient Mode of arrival: ambulatory Limitations: no limitations History of Present Illness HPI narrative: Presents to the emergency department for increasing anxiety. Reports she is currently in remission from cancer. She has also been sober recently. She has had worsening anxiety to the point where she feels like she is not functioning very well. She reports she has outbursts and becomes very angry and has hallucinations. Reports she has been on several different medications for this and feels like nothing helps. She is not currently on anxiety medications. Reports she has not wanted to eat much. She is not sleeping well either. She has no thoughts currently of harming herself or anyone else. Related Data Home Medications Medication Instructions Recorded Confirmed hydroxyzine HCl 25 mg tablet 25 mg PO TID 03/21/23 03/27/23 methylprednisolone 4 mg tablets in mg 03/21/23 03/21/23 a dose pack hydroxyzine HCl 25 mg tablet mg 09/30/23 ibuprofen 600 mg tablet mg 09/30/23 megestrol 400 mg/10 mL (40 mg/mL) mg 09/30/23 oral suspension morphine 30 mg immediate release mg 09/30/23 tablet ondansetron 4 mg disintegrating mg 09/30/23 tablet pregabalin 50 mg capsule mg 09/30/23 promethazine 25 mg rectal mg RECTAL 09/30/23 suppository (Promethegan) valacyclovir 500 mg tablet mg 09/30/23 Allergies Allergy/AdvReac Type Severity Reaction Status Date / Time azithromycin AdvReac Nausea Verified 01/23/24 14:16 codeine AdvReac Vomiting Verified 01/23/24 14:16 diphenhydramine AdvReac Jittery Verified 01/23/24 14:16 [From Benadryl] pecan nut AdvReac Nausea and Verified 01/23/24 14:16 Vomiting pregabalin AdvReac Unknown Verified 01/23/24 14:16 Review of Systems Review of Systems: CONSTITUTIONAL: Denies fever PSYCHIATRIC: Reports anxiety and depression. All systems reviewed & are unremarkable except as noted in HPI and below PMFSH Past Medical History Medical History Anxiety Atypical bipolar disorder Drug-induced psychotic disorder Ectopic History of heroin use Methamphetamine abuse, episodic MRSA infection buttock and leg during last lengthy incarceration (2020) Surgical History Surgical History History of breast surgery 2017 or 2018, due to butane stitcher special machine requiring I/D and subsequent wound care. L Side. History of salpingo-oophorectomy Social History Social History Social History: Currently living with boyfriend. Full Code. Surrogate decision maker - Isaiah Beverly (step-dad), if unavailable then Marlene Carbone (mom). Smoking packs per day: 1 Smoking cigarettes per day: 20.0 Years smoked: 11 Smoking pack-years: 11.00 Smoking status: Current every day smoker Tobacco type: cigarettes Alcohol intake: current Drinks per week: 1 Alcohol use details: social Substance use: former Substance use type: methamphetamine Other substance usage details: QUIT USING EARLY DEC 2022 D/T DIAGNOSIS & SURGERY Last use: last use of heroin-September 2014 Lack of Transportation: No Lack of Food: Never True Current Housing: I Have Housing Concerned About Future Housing: No Difficulty Paying Gas/Electric Bills: No Difficulty Paying for Meds: No Currently Unemployed: No Education: High School Diploma/GED Difficulty w/ Childcare or Family Care: No Living arrangements: with friend(s) Additional living arrangements comments: boyfriend Spiritual care concerns: No Exam Narrative: GENERAL: Well-appearing, well-nourished, and in no acute distress. HEAD: Normocephalic, atraumatic. EYES: EOMI. CHEST: Clear to auscultation. No respiratory distress. No wheezes rales or rhonchi HEART: Regular rate and rhythm. No murmur heard. Normal peripheral pulses. EXTREMITIES: Normal range of motion. No edema. SKIN: Warm, dry, no rash. NEURO: No focal deficits. Alert and oriented x3. PSYCH: Anxious with pressured speech. Course Vital Signs Vital signs: Vital Signs Temperature 97.9 F 03/10/24 14:46 Pulse Rate 95 03/10/24 14:46 Respiratory Rate 16 03/10/24 14:46 Blood Pressure 112/90 03/10/24 14:46 Pulse Oximetry 96 03/10/24 14:46 Temperature 97.9 F 03/10/24 14:46 Pulse Rate 95 03/10/24 14:46 Respiratory Rate 16 03/10/24 14:46 Blood Pressure 112/90 03/10/24 14:46 Pulse Oximetry 96 03/10/24 14:46 MDM - Anxiety MDM Narrative Medical decision making narrative: Patient left after being seen by myself and before any further evaluation or management Differential Diagnosis Differential diagnosis: Likely panic disorder and acute anxiety Discharge Plan Discharge Clinical Impression: Acute anxiety Patient Disposition: Elopement After Seen by Prov Condition: Stable Prescriptions: No Action oxycodone-acetaminophen [Percocet] 10-325 mg tablet 1 tablet PO Q4H PRN (Reason: pain) Qty: 5 0RF ondansetron 4 mg tablet,disintegrating 4 mg PO Q6H PRN (Reason: nausea and vomiting) Qty: 20 0RF hydroxyzine HCl 25 mg tablet 25 mg PO TID methylprednisolone 4 mg tablets,dose pack promethazine 25 mg suppository 25 mg RECTAL Q6H PRN (Reason: nausea and vomiting) Qty: 12 0RF ondansetron 4 mg tablet,disintegrating 4 mg PO Q8H PRN (Reason: nausea and vomiting) Qty: 30 0RF oxycodone-acetaminophen [Percocet] 10-325 mg tablet 1 tablet PO Q6H PRN (Reason: pain) Qty: 20 0RF ondansetron 4 mg tablet,disintegrating 4 mg PO Q8H PRN (Reason: nausea and vomiting) Qty: 10 0RF amoxicillin-pot clavulanate 875-125 mg tablet 1 tablet PO Q12H 7 Days Qty: 14 0RF promethazine 25 mg suppository 25 mg RECTAL Q6H PRN (Reason: nausea and vomiting) Qty: 12 0RF megestrol 400 mg/10 mL (40 mg/mL) suspension promethazine [Promethegan] 25 mg suppository RECTAL valacyclovir 500 mg tablet morphine 30 mg tablet hydroxyzine HCl 25 mg tablet ibuprofen 600 mg tablet ondansetron 4 mg tablet,disintegrating pregabalin 50 mg capsule Follow-up/Referrals: UNKNOWN,DOCTOR [Primary Care Provider] -
--- NOTE | 2024-03-10 17:47 | PC.NURSE ---
Pt seen ambulating out waiting room exit with steady gait. Pt knocked door off track while walking out.
--- NOTE | 2024-03-10 17:53 | PC.NURSE ---
Pt left room after declining labs, left with items, did not notify RN she was leaving and seen exiting the ED by parts puller - states she pushed the door so hard on the way out she took it off the tracks.
== END 2024-03-10 18:00 | disposition left against medical advice (07) ==
PROVIDERS: Emergency Provider Physician Assistant
DX: F41.9 Anxiety disorder, unspecified (principal); C85.9A Non-Hodgkin lymphoma, unspecified, in remission; F31.9 Bipolar disorder, unspecified; F17.210 Nicotine dependence, cigarettes, uncomplicated; Z86.14 Personal history of Methicillin resistant Staphylococcus aureus infection; Z90.79 Acquired absence of other genital organ(s); Z79.899 Other long term (current) drug therapy
CPT/HCPCS: 99281

== ENCOUNTER 2024-03-11 00:01 | Emergency (ER) | payer OTHER, SELFPAY ==
[2024-03-11 00:04] VITALS: BP 111/84; PULSE 88; RESP 18; TEMP 36.6; O2SAT 100
--- NOTE | 2024-03-11 02:04 | PC.NURSE ---
Tech called out for pt out in triage and pt did not respond to call at [phone].
--- NOTE | 2024-03-11 02:47 | PC.NURSE ---
Rn called out for pt at [phone] in triage and no response to call out
--- NOTE | 2024-03-11 17:00 | PC.NURSE ---
Pt ambulatory out of dept before seeing ERP.
== END 2024-03-11 17:41 | disposition left against medical advice (07) ==
DX: R53.1 Weakness (principal)
CPT/HCPCS: 99199

== ENCOUNTER 2024-03-11 12:17 | Emergency (ER) | payer OTHER, SELFPAY ==
--- NOTE | 2024-03-11 12:29 | PC.NURSE ---
Called patient for triage, pt not in waiting room.
--- NOTE | 2024-03-11 12:56 | PC.NURSE ---
Attempted to call patient for triage for the third time. Pt is not in waiting room or the restroom.
== END 2024-03-11 17:32 | disposition left against medical advice (07) ==
DX: Z53.21 Procedure and treatment not carried out due to patient leaving prior to being seen by health care provider (principal)
CPT/HCPCS: 99199

== ENCOUNTER 2024-03-11 13:53 | Emergency (ER) | payer OTHER, SELFPAY ==
[2024-03-11 13:55] VITALS: BP 119/81; PULSE 115; RESP 18; TEMP 36.4; O2SAT 100
--- NOTE | 2024-03-11 14:14 | ED.WEAKNESS ---
HPI - Weakness General Chief complaint: Weakness Stated complaint: weakness Time Seen by Provider: 03/11/24 14:00 Focused HPI: Patient is a 34 y/o female, with PMH of metastatic lymphoma, who presents to the ED with c/o weakness and anxiety. patient reports she has not felt well over the last several days. Reports severe anxiety. States she is having trouble sleeping, eating, going throughout her day due to anxiety. She has previously been on Xanax and states this, along with marijuana, helped her anxiety. She has also been recently prescribed Vistaril, which she states does not improve her anxiety. Has not talked to her doctors about this anxiety. Patient has long history of opioid and methamphetamine abuse. She is well-known to our facility for drug-seeking behavior. Patient is currently on Suboxone therapy. GENERAL: Chronically ill-appearing, thin, and in no acute distress. HEAD: Normocephalic, atraumatic. NEURO: ?Alert and oriented x3. Moves all extremities. PSYCHIATRIC: Anxious, borderline agitated. Rambling speech. Patient screened in triage and initial orders placed.? ?Additional care and disposition to be based upon?diagnostic testing and treatment. Source: patient and old records reviewed Mode of arrival: ambulatory Limitations: no limitations Related Data Home Medications Medication Instructions Recorded Confirmed hydroxyzine HCl 25 mg tablet 25 mg PO TID 03/21/23 03/27/23 methylprednisolone 4 mg tablets in mg 03/21/23 03/21/23 a dose pack hydroxyzine HCl 25 mg tablet mg 09/30/23 ibuprofen 600 mg tablet mg 09/30/23 megestrol 400 mg/10 mL (40 mg/mL) mg 09/30/23 oral suspension morphine 30 mg immediate release mg 09/30/23 tablet ondansetron 4 mg disintegrating mg 09/30/23 tablet pregabalin 50 mg capsule mg 09/30/23 promethazine 25 mg rectal mg RECTAL 09/30/23 suppository (Promethegan) valacyclovir 500 mg tablet mg 09/30/23 Allergies Allergy/AdvReac Type Severity Reaction Status Date / Time azithromycin AdvReac Nausea Verified 03/12/24 07:40 codeine AdvReac Vomiting Verified 03/12/24 07:40 diphenhydramine AdvReac Jittery Verified 03/12/24 07:40 [From Benadryl] pecan nut AdvReac Nausea and Verified 03/12/24 07:40 Vomiting pregabalin AdvReac Unknown Verified 03/12/24 07:40 [facility] Past Medical History Medical History Anxiety Atypical bipolar disorder Drug-induced psychotic disorder Ectopic History of heroin use Methamphetamine abuse, episodic MRSA infection buttock and leg during last lengthy incarceration (2020) Surgical History Surgical History History of breast surgery 2018 or 2018, due to butane medical imaging technician requiring I/D and subsequent wound care. L Side. History of salpingo-oophorectomy Social History Social History Social History: Currently living with boyfriend. Full Code. Surrogate decision maker - Isaiah Beverly (step-dad), if unavailable then Marlene Carbone (mom). Smoking packs per day: 1 Smoking cigarettes per day: 20.0 Years smoked: 11 Smoking pack-years: 11.00 Smoking status: Current every day smoker Tobacco type: cigarettes Alcohol intake: current Drinks per week: 1 Alcohol use details: social Substance use: former Substance use type: methamphetamine Other substance usage details: QUIT USING EARLY DEC 2022 D/T DIAGNOSIS & SURGERY Last use: last use of heroin-September 2014 Lack of Transportation: No Lack of Food: Never True Current Housing: I Have Housing Concerned About Future Housing: No Difficulty Paying Gas/Electric Bills: No Difficulty Paying for Meds: No Currently Unemployed: No Education: High School Diploma/GED Difficulty w/ Childcare or Family Care: No Living arrangements: with friend(s) Additional living arrangements comments: boyfriend Spiritual care concerns: No Course Vital Signs Vital signs: Vital Signs Temperature 97.5 F L 03/11/24 13:55 Pulse Rate 115 H 03/11/24 13:55 Respiratory Rate 18 03/11/24 13:55 Blood Pressure 119/81 03/11/24 13:55 Pulse Oximetry 100 03/11/24 13:55 Oxygen Delivery Autopap 03/11/24 13:55 Temperature 97.5 F L 03/11/24 13:55 Pulse Rate 115 H 03/11/24 13:55 Respiratory Rate 18 03/11/24 13:55 Blood Pressure 119/81 03/11/24 13:55 Pulse Oximetry 100 03/11/24 13:55 Oxygen Delivery Autopap 03/11/24 13:55 MDM - Weakness MDM Narrative Medical decision making narrative: MSE by ADDIE in triage. Patient was brought back to in ED room, but prior to patient being seen by another physician, she eloped from the facility. She did not receive any further workup after initial MSE in triage. Lab Data 03/11/24 15:02 03/11/24 15:02 Labs: Lab Results 03/11/24 Range/Units 15:02 WBC 5.6 (4.5-10.0) K/mm3 RBC 4.08 L (4.2-5.4) M/mm3 Hgb 12.7 (12.0-15.0) g/dL Hct 34.9 L (37.0-47.0) % MCV 85.5 (80-100) fl MCH 31.1 (26-34) pg MCHC 36.4 H (32-36) g/dl RDW 13.4 (11.5-14.5) % Plt Count 281 (150-375) k/mm3 MPV 10.0 (7.4-10.4) fl Immature Gran % (Auto) 0.4 (0-0.5) % Neut % (Auto) 77.6 H (45.5-73.1) % Lymph % (Auto) 13.0 L (18.3-44.2) % Bertie % (Auto) 7.9 (2.6-8.5) % Eos % (Auto) 0.4 (0-4.4) % Baso % (Auto) 0.7 (0.2-1.2) % Lymph # (Auto) 0.72 L (0.9-3.2) K/mm3 Bertie # (Auto) 0.4 (0.1-0.6) K/mm3 Eos # (Auto) 0.0 (0-0.3) K/mm3 Baso # (Auto) 0.0 (0.0-0.1) K/mm3 Abs Immat Gran (auto) 0.02 (0.00-0.031) K/mm3 Absolute Neuts (auto) 4.3 (1.3-6.7) K/mm3 Absolute Nucleated RBC 0.000 (0.0-0.012) K/mm3 Nucleated RBC % 0.0 (0.0-0.2) % Sodium 141 (137-145) mmol/L Potassium 2.3 L* (3.4-5.0) mmol/L Chloride 103 (98-107) mmol/L Carbon Dioxide 30 (22-30) mmol/L Anion Gap 8 (4-12) mmol/L BUN 7 (7-17) mg/dL Creatinine 0.70 (0.7-1.0) mg/dL Estim Creat Clear Calc 69 ml/min Estimated GFR > 60 (59 - ) Glucose 106 (65-110) mg/dL Calcium 9.5 (8.4-10.2) mg/dL Magnesium 1.8 (1.6-2.3) mg/dL Total Bilirubin 0.7 (0.2-1.3) mg/dL AST 25 (14-36) U/L ALT 23 (6-35) U/L Alkaline Phosphatase 52 (38-126) U/L Total Protein 7.0 (6.3-8.2) g/dL Albumin 4.8 (3.5-5.1) g/dL TSH 0.888 (0.465-4.680) uIU/mL Discharge Plan Discharge Clinical Impression: Anxiety, Hypokalemia Patient Disposition: Elopement After Seen by Prov Condition: Guarded Prognosis Prescriptions: No Action oxycodone-acetaminophen [Percocet] 10-325 mg tablet 1 tablet PO Q4H PRN (Reason: pain) Qty: 5 0RF ondansetron 4 mg tablet,disintegrating 4 mg PO Q6H PRN (Reason: nausea and vomiting) Qty: 20 0RF hydroxyzine HCl 25 mg tablet 25 mg PO TID methylprednisolone 4 mg tablets,dose pack promethazine 25 mg suppository 25 mg RECTAL Q6H PRN (Reason: nausea and vomiting) Qty: 12 0RF ondansetron 4 mg tablet,disintegrating 4 mg PO Q8H PRN (Reason: nausea and vomiting) Qty: 30 0RF oxycodone-acetaminophen [Percocet] 10-325 mg tablet 1 tablet PO Q6H PRN (Reason: pain) Qty: 20 0RF ondansetron 4 mg tablet,disintegrating 4 mg PO Q8H PRN (Reason: nausea and vomiting) Qty: 10 0RF amoxicillin-pot clavulanate 875-125 mg tablet 1 tablet PO Q12H 7 Days Qty: 14 0RF promethazine 25 mg suppository 25 mg RECTAL Q6H PRN (Reason: nausea and vomiting) Qty: 12 0RF megestrol 400 mg/10 mL (40 mg/mL) suspension promethazine [Promethegan] 25 mg suppository RECTAL valacyclovir 500 mg tablet morphine 30 mg tablet hydroxyzine HCl 25 mg tablet ibuprofen 600 mg tablet ondansetron 4 mg tablet,disintegrating pregabalin 50 mg capsule Follow-up/Referrals: UNKNOWN,DOCTOR [Primary Care Provider] -
[2024-03-11 15:23] LABS: Basophils Percent Auto 0.7 % (0.2-1.2); Eosinophils Percent Auto 0.4 % (0-4.4); Hematocrit 34.9 % (37.0-47.0); Hemoglobin 12.7 g/dL (12.0-15.0); Immature Granulocyte Absolute 0.02 K/mm3 (0.00-0.031); Immature Granulocyte Percent A 0.4 % (0-0.5); Lymphocytes Absolute Auto 0.72 K/mm3 (0.9-3.2); Mean Corpuscular HGB Conc 36.4 g/dl (32-36); Mean Corpuscular Hemoglobin 31.1 pg (26-34); Mean Corpuscular Volume 85.5 fl (80-100); Monocytes Absolute Auto 0.4 K/mm3 (0.1-0.6); Monocytes Percent Auto 7.9 % (2.6-8.5); Neutrophils Absolute Auto 4.3 K/mm3 (1.3-6.7); Neutrophils Percent Auto 77.6 % (45.5-73.1); Platelet Count Result 281 k/mm3 (150-375); Red Blood Count 4.08 M/mm3 (4.2-5.4); Red Cell Distribution Width 13.4 % (11.5-14.5); White Blood Count 5.6 K/mm3 (4.5-10.0)
--- NOTE | 2024-03-11 15:30 | PC.NURSE ---
Pt told that she will be going back a room shortly because her potassium was low and will need treatment and to stay near so she can hear when her name is called
[2024-03-11 15:47] LABS: Alanine Aminotransferase 23 U/L (6-35); Albumin Level 4.8 g/dL (3.5-5.1); Alkaline Phosphatase 52 U/L (38-126); Anion Gap 8 mmol/L (4-12); Aspartate Amino Transferase 25 U/L (14-36); Bilirubin,Total 0.7 mg/dL (0.2-1.3); Blood Urea Nitrogen 7 mg/dL (7-17); Calcium 9.5 mg/dL (8.4-10.2); Carbon Dioxide 30 mmol/L (22-30); Chloride 103 mmol/L (98-107); Estimated CRCL calculation 69 ml/min; Estimated Glomerular Filt Rate > 60; Glucose 106 mg/dL (65-110); Magnesium 1.8 mg/dL (1.6-2.3); Potassium 2.3 mmol/L (3.4-5.0); Sodium 141 mmol/L (137-145)
[2024-03-11 16:08] LABS: Thyroid Stimulating Hormone 0.888 uIU/mL (0.465-4.680)
--- NOTE | 2024-03-11 17:05 | PC.NURSE ---
PT SEEN AMBULATING FROM THE DEPT
--- NOTE | 2024-03-11 17:45 | PC.NURSE ---
Pt is vestibule screaming and yelling. security called
== END 2024-03-11 17:45 | disposition left against medical advice (07) ==
PROVIDERS: Physician Assistant; Emergency Provider Physician Assistant
DX: F41.9 Anxiety disorder, unspecified (principal); E87.6 Hypokalemia; C85.9A Non-Hodgkin lymphoma, unspecified, in remission; F31.9 Bipolar disorder, unspecified; F17.210 Nicotine dependence, cigarettes, uncomplicated; Z86.14 Personal history of Methicillin resistant Staphylococcus aureus infection; Z90.79 Acquired absence of other genital organ(s); Z79.899 Other long term (current) drug therapy
CPT/HCPCS: 36415; 80053; 83735; 84443; 85025; 99283

== ENCOUNTER 2024-03-12 07:39 | Emergency (ER) | payer OTHER, SELFPAY ==
[2024-03-12 07:41] VITALS: BP 108/84; PULSE 93; RESP 15; TEMP 36.5; O2SAT 100
--- NOTE | 2024-03-12 09:09 | PC.NURSE ---
Pt ambulated out of ED using steady gait
--- NOTE | 2024-03-12 09:10 | PC.NURSE ---
in room talking with pt and she began yelling and cussing then said I'm fucking leaving.
== END 2024-03-12 09:26 | disposition left against medical advice (07) ==
LOC: ANHED 09:09
PROVIDERS: Emergency Provider Physician Assistant
DX: R10.9 Unspecified abdominal pain (principal)
CPT/HCPCS: 99199

== ENCOUNTER 2024-03-13 21:42 | Emergency (ER) | payer OTHER, SELFPAY ==
[2024-03-13 21:51] VITALS: BP 142/91; PULSE 81; RESP 16; TEMP 36.6; O2SAT 100
--- NOTE | 2024-03-13 23:29 | PC.NURSE ---
Security notified this RN that pt was seen ambulating off of hospital property. Pt marked as left without being seen at this time.
== END 2024-03-13 23:29 | disposition left against medical advice (07) ==
LOC: ANHED 23:39
DX: R11.2 Nausea with vomiting, unspecified (principal)
CPT/HCPCS: 99199

== ENCOUNTER 2024-07-04 22:45 | Emergency (ER) | payer OTHER, SELFPAY ==
--- OUTSIDE RECORDS SUMMARY | 2024-07-04 22:47 | XMS_ITS | Encounter Summary ---
Author Organization [facility] Address [address] [place] [address] Care Team Providers Care Automatic Pinsetter Adjuster Name Role Phone Unavailable Primary Care Provider Unavailabl e Encounter Details Date Type Department Care Team (Late st Contact Info) Description 12/18/2022 Lab Requisition [facility] - Pathology Lab [address] [place] [address] Ishan Escobedo MD [address] [place] [id number] Generalized enlarged lymph nodes Social History Tobacco Use Types Packs/Day Years Used Date Smoking Tobacco: Never Assessed Sex and Gender Information Value Date Recorded Sex Assigned at Not on file Gender Identity Not on file Sexual Orientation Not on file documented as of this encounter Plan of Treatment Not on file documented as of this encounter Procedures Procedure Name Priority Date/Time Associated Diagnosis Comments FLOW CYTOMETRY TISSUE PANEL Routine 12/18/2022 9:00 AM CDT Generalized enlarged lymph nodes documented in this encounter Results * FLOW CYTOMETRY TISSUE PANEL (12/18/2022 9:00 AM CDT) Case Report Flow Cytometry Case: [id number] Authorizing Provider: Ishan Escobedo MD Collected: 12/18/2022 09:00 AM Ordering Location: [facility] Received: 12/18/2022 03:11 PM Pathologist: Giovanni Chow MD Specimen: Axillary Lymph Node, RIGHT 12/18/2022 5:15 PM CDT [facility] Final Diagnosis Axillary lymph node, flow cytometry: - [place] light chain restricted CD10+ B-cell population detected (~99% of overall events) 12/18/2022 5:15 PM CDT [facility] Flow Cytometry Interpretation Viability: 87%. B-cells: monoclonal, kappa-restricted, expressing CD19, CD20, and CD10. T-cells: not increased, no immunophenotypic aberrancy. A cytospin prepared from the flow cytometry specimen has been reviewed for software quality assurance analyst purposes. 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 Histologic slides are pending for final subclassification. 12/18/2022 5:15 PM [facility] Flow Cytometry Results Differential Result Comment Flow Cell Count /uL 9,000 Total Viability % 87.0 Lymphocytes % 99 Dim CD45 Region % 0 Monocytes % 0 Granulocytes % 1 12/18/2022 5:15 PM [facility] Reason for test Generalized enlarged lymph nodes 785.6 12/18/2022 5:15 PM [facility] Client Specimen ID # [id number] 12/18/2022 5:15 PM [facility] Number of markers 16 were performed. A-2 Flow CD3 A-4 Flow CD10 A-6 Flow CD20 A-7 Flow CD23 A-12 Flow CD2 A-13 Flow CD4 A-16 Flow CD1a A-3 Flow CD5 A-5 Flow CD19 A-8 Flow CD34 A-9 Flow CD45 A-14 Flow CD7 A-15 Flow CD8 A-17 Flow CD30 A-10 [place]+CD19+ A-11 Lambda+CD19+ 12/18/2022 5:15 PM [facility] Pathologist Location at [facility] 12/18/2022 5:15 PM [facility] Disclaimer Test performed at [facility], [address] [place] [address], [id number]. *The established laboratory minimum viability is 70%. Values below the minimum may result in the failure to find an abnormal population of cells. This test was developed and its performance characteristics determined by the Flow Cytometry Laboratory. It has not been cleared by the [place] Food and Drug Administration (FDA). The FDA has determined that such clearance or approval is not necessary. This test is used for clinical purposes. It should not be regarded as investigational or for research. This laboratory is regulated under the Clinical Laboratory Improvement Amendments of 1998 (CLIA) as a qualified to perform high complexity clinical testing. 12/18/2022 5:15 PM [facility] Embedded Images 3 5:15 PM CDT [facility] Pathology/Cytolo gy AXILLARY LYMPH NODE STRUCTURE / Unknown 12/18/2022 9:00 AM CDT 12/18/2022 3:11 PM CDT Ishan Escobedo MD LAB - PATHOLOGY/CYTO LOGY ORDERABLES Performing Organization Address City/State/[facility] Co wy Phone Number [facility] [address] [phone] documented in this encounter Visit Diagnoses Diagnosis Generalized enlarged lymph nodes Enlargement of lymph nodes documented in this encounter
--- OUTSIDE RECORDS SUMMARY | 2024-07-04 22:47 | XMS_ITS ---
Author Organization [facility] Address [address] [place] [address] Care Team Providers Care [place] Stayer 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 Name Role Phone Richard Fish Primary Care Provider Allergies Allergen (clinical drug ingredient) Drug/Non Drug Allergy documented on EMR Reaction Allergy Type Onset Date Status azithromycin Zithromax Unknown Drug Allergy Acti ve codeine Codeine Unknown Drug Allergy Active Results Component Value Reference Range Notes 12 Panel Urine Drug Screen Reviewed date:05/27/2024 02:25:41 PM Interpretation: Performing Lab: Notes/Report: THC POS JULISA neg MOP (OPI) neg AMP neg MET neg BAR neg BZO neg MDMA neg MTD neg OXY neg PCP neg BUP POS REASON FOR VISIT MAT F/U Medications Medication SIG (Take, Route, Frequency, Duration) Notes Start Date End Date Status Buprenorphine HCl-Naloxone HCl 8-2 MG 1 film under the tongue and allow to dissolve Sublingual up to three times a day 05/27/2024 Active traZODone HCl 50 MG 1 tablet at bedtime as needed Orally at night Active hydrOXYzine Pamoate 25 MG 1 capsule Every 4 hours as needed Active Symbicort 80-4.5 MCG/ACT 1 puff Inhalation every 6 hours As needed asthma 01/16/2024 Active Budesonide-Formoterol Fumarate 80-4.5 MCG/ACT 1 puff Inhalation every 6 hours As needed asthma 01/16/2024 Active Naproxen 250 MG 1 tablet with food or milk Orally Twice a day for 30 day(s) 01/01/2024 Active predniSONE 20 MG 1 tablet Orally Once a day for 5 days 01/16/2024 Active Albuterol Sulfate (2.5 MG/3ML) 0.083% 3 mL Inhalation EVERY 4 HOURS As needed asthma demetrius please. waiting for neb tx here 01/16/2024 Active Social History Tobacco Use: Social History Observation Description Date Details (start date - stop date) Current Smoker NA - NA Sex Assigned At : Social History Observation Description Sex Assigned At Female Tobacco Control (Standard) Question Answer Notes Tobacco use: Current every day smoker Additional Findings: Tobacco user Moderate cigar ette smoker (10-19 cigs/day) Problems Problem Type SNOMED Code ICD Code Onset Dates Problem Status W/U Status Risk Notes Problem Tobacco user (556463983) Nicotine dependence, unspecified, uncomplicated (F17.200) Active confirmed Vital Signs Weight 108.6 lbs 05/27/2024 Height 62 in 05/27/2024 BMI 19.86 kg/m2 05/27/2024 Heart Rate 98 /min 05/27/2024 Oximetry 98 % 05/27/2024 Respiratory Rate 16 /min 05/27/2024 Encounters Encounter Location Date Provider Diagnosis [place] [address] [facility] [place] [address] 05/27/2024 Richard Fish Opioid use disorder F11.99 and Nicotine dependence, unspecified, uncomplicated F17.200 Assessments Encounter Date Diagnosis (ICD Code) Assessment Notes Treatment Notes Treatment Clinical Notes Section Notes 05/27/2024 Opioid use disorder (ICD-10 - F11.99) 05/27/2024 Nicotine dependence, unspecified, uncomplicated (ICD-10 - F17.200) 05/27/2024 Other Patient agrees to take medication as prescribed. Discussed medication side effects, adverse effects, risks, benefits, as well as interactions. Encouraged non-use of opioids. Has naloxone. Recommended participation in recovery groups and/or counseling services. May contact office with questions or concerns. Patient may self-administe r their own medications or may self-administe r their own oral medications per [place] Protocol. Plan Of Treatment Medication Medication Name Sig Start Date Stop Date Notes Buprenorphine HCl-Naloxone H Cl 8-2 MG 1 film under the tongue and allow to dissolve Sublingual up to three times a day 05/27/2024 Treatment Notes Assessment Notes Other Patient agrees to take medication as prescribed. Discussed medication side effects, adverse effects, risks, benefits, as well as interactions. Encouraged non-use of opioids. Has naloxone. Recommended participation in recovery groups and/or counseling services. May contact office with questions or concerns. 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 D epression Screening: PHQ-9 L ittle interest or pleasure in doing things?Several days F eeling down, depressed, or hopeless S everal days T rouble falling or staying asleep, or sleeping too much S everal days F eeling tired or having little energy S everal days P oor appetite or overeating S everal days F eeling bad about yourself or that you are a failure, or have let yourself or your family down S everal days T rouble concentrating on things, such as reading the newspaper or watching television S everal days M oving or speaking so slowly that other people could have noticed; or the opposite, being so fidgety or restless that you have been moving around a lot more than usual N ot at all T houghts that you would be better off or of hurting yourself in some way N ot at all T otal Score 7 I nterpretation M ild Depression S creening: [place] Suicide Severity Rating Scale (LF) D o you want to initiate with S creener form 1 . Wish to be : Have you wished you were or wished you could go to sleep and not wake up? N o 2 . Suicidal Thoughts: Have you actually had any thoughts of killing yourself? N o 6 . Suicide Behavior Question: Have you ever done anything,started to do anything, or prepared to end your life? N o I nterpretation: L ow Risk M AR follow-up: Soha presents with significant other for MAR f/u. Reports taking buprenorphine as prescribed, requesting to switch back to films from tablets. States current dose effective. No use of opioids or cravings. Reports currently cancer in remission. Medication Monitoring and Risk Mitigation U p-to-date on ASAM recommended lab testing??Yes P rescribed a buprenorphine product? Y es H as patient had a buprenorphine and metabolite lab ordered/collected? N o P rescription Drug Monitoring Program Review?Yes. No concerns at this time. P rabia to address any concerns identified: N o concerns identified. Will continue treatment plan as is. Cravings, Setbacks, Substance use, and Stressors C ravings since last visit: N o. Patient denies cravings since last visit. S etbacks since last visit? N o, patient denies setbacks since last visit. M isuse of substances since last visit: N o, patient denies. S tressors N o, patient denies stressors at this time. Withdrawal and Intoxication Symptoms I ntoxication Symptoms: N o signs of intoxication are present during visit. W ithdrawal Symptoms: N o withdrawal signs are present during visit. Mental Health, Support System, and Social Determinants M ental Health Status S table. S upport Systems Include: P ersonal support system (see notes). C ourt System Involvement? N o H ousing Stability: S table and safe housing. C urrently employed? U nemployed. R eferrals needed: N o referrals needed at this time. Recommended Wellness and Prevention Follow-up R ecommended Wellness and Prevention reviewed:?Yes. No additional orders/actions needed at this time. Other concerns: O ther Concerns? N o. N arcan need N o. Patient already has Narcan. * ROS: B asic ROS: Denies C hills. D enies W eight loss or gain. D enies S weats. D enies C onstipation. I nsomnia D enies. * Medical History: * Surgical History: E ctopic Open Chest Surgery Chemo Port 2022 * Hospitalization/Major Diagno stic Procedure: K ettler x2 * Family History: F ather: alive. M other: alive. 1 brother(s) , 1 sister(s) - healthy. 1 daughter(s) - healthy. . * Social History: P rimary Social History: L iving Arrangement L iving Arrangement: I ndependent Living I s this a supportive environment? Y es Alcohol Use A lcohol Use Frequency: Monthly or less .. Illicit Substance Usage I llicit Substance Usage: Yes , Interested in quitting: No , Substance Used: Cannabis .. Employment Status E mployment Status: Unemployed .. T obacco Use: T obacco Control (Standard) T obacco use: C urrent every day smoker A dditional Findings: Tobacco user M oderate cigarette smoker (10-19 cigs/day) * Medications: T akingBuprenorphine HCl-Naloxone HCl 8-2 MG Tablet Sublingual 1 tablet under the tongue and allow to dissolve Sublingual up to three times a day hydrOXYzine Pamoate 25 MG Capsule 1 capsule Every 4 hours as needed traZODone HCl 50 MG Tablet 1 tablet at bedtime as needed Orally at night Naproxen 250 MG Tablet 1 tablet with food or milk Orally Twice a day Albuterol Sulfate (2.5 MG/3ML) 0.083% Nebulization Solution 3 mL Inhalation EVERY 4 HOURS As needed asthma, Notes to Pharmacist: demetrius please. waiting for neb tx herepredniSONE 20 MG Tablet 1 tablet Orally Once a day Budesonide-Formoterol Fumarate 80-4.5 MCG/ACT Aerosol 1 puff Inhalation every 6 hours As needed asthmaSymbicort 80-4.5 MCG/ACT Aerosol 1 puff Inhalation every 6 hours As needed asthmaMedication List reviewed and reconciled with the patientTaking Buprenorphine HCl-Naloxone HCl 8-2 MG Tablet Sublingual 1 tablet under the tongue and allow to dissolve Sublingual up to three times a day Taking hydrOXYzine Pamoate 25 MG Capsule 1 capsule Every 4 hours as needed Taking traZODone HCl 50 MG Tablet 1 tablet at bedtime as needed Orally at night Taking Naproxen 250 MG Tablet 1 tablet with food or milk Orally Twice a day Taking Albuterol Sulfate (2.5 MG/3ML) 0.083% Nebulization Solution 3 mL Inhalation EVERY 4 HOURS As needed asthma, Notes to Pharmacist: demetrius please. waiting for neb tx hereTaking predniSONE 20 MG Tablet 1 tablet Orally Once a day Taking Budesonide-Formoterol Fumarate 80-4.5 MCG/ACT Aerosol 1 puff Inhalation every 6 hours As needed asthmaTaking Symbicort 80-4.5 MCG/ACT Aerosol 1 puff Inhalation every 6 hours As needed asthmaMedication List reviewed and reconciled with the patient * Allergies: Z ithromaxCodeineno[Allergies Verified] Objective: * Vitals: I nitials: kb, Wt:108.6, Ht: 62, BMI:19.86, HR:98, Oxygen sat %:98, RR:16, LMP: 05/2024, Pain scale:0. * Examination: G eneral Examination: GENERAL APPEARANCE: p leasant, in no acute distress. PSYCH: a lert, oriented x4, speech clear, good eye contact, full range of affect/positive mood, judgement and insight good, thought process logical, goal directed. Assessment: * Assessment: 1. N icotine dependence, unspecified, uncomplicated - F17.200 2 . O pioid use disorder - F11.99 (Primary) Plan: * Treatment: Value Reference Range T HC POS * C OC neg * M OP (OPI) neg * A MP neg * M ET neg * B AR neg * B ZO neg * M DMA neg * M TD neg * O XY neg * P CP neg * B UP POS 2.?Others? Notes: Patient agrees to take medication as prescribed. Discussed medication side effects, adverse effects, risks, benefits, as well as interactions. Encouraged non-use of opioids. Has naloxone. Recommended participation in recovery groups and/or counseling services. May contact office with questions or concerns.?? Clinical Notes: Patient may self-administer their own medications or may self- administer their own oral medications per [place] Protocol.?? * Recommended Wellness and Pre vention Guidelines: * S tatus A lert L ast Done N ext Due A ction Taken N ONCOMPLIANT C ervical cancer screening - 0 05/27/2024 - * Procedure Codes: 9 9000 SPECIMEN [id number] BEHAV CHNG SMOKING 3-10 MIN * Preventive Medicine: Counseling: S MOKING: Patient counselled on the dangers of tobacco use and urged to quit. . * Follow Up: 4 Weeks (Reason: MAR f/u) * Care Plan Details* * WIND INSTRUMENTS INSPECTOR Sign off status: Completed true * Provider: Rachel Fish, MSN, SCENIC ARTS SUPERVISOR, MOLD YARN SUPERVISOR-C Date: 0 05/27/2024 Generated for Arnoldi anjum/Claire/eTransmitting on: 0 07/04/2024 10:47 PM CDT History and Physical Notes * HPI (History of Present Illness) Category Sub-Category Detail Notes Category Not es Depression Screening PHQ-9 Little inte rest or pleasure in doing things: Several days Feeling down, depressed, or hopeless: Se veral days Trouble falling or staying asleep, or sl eeping too much: Several days Feeling tired or having little energy: S everal days Poor appetite or overeating: Several day s Feeling bad about yourself o r that you are a failure, or have let yourself or your family down: Several days Trouble concentrating on thi ngs, such as reading the newspaper or watching television: Several days Moving or speaking so slowly that other people could have noticed; or the opposite, being so fidgety or restless that you have been moving around a lot more than usual: Not at all Thoughts that you would be b prashanth off or of hurting yourself in some way: Not at all Total Score: 7 Interpretation: Mild Depression Screening [place] Suicide Sev erity Rating Scale (LF) Do you want to initiate with: Screener form 1. Wish to be : Have you wished you were or wished you could go to sleep and not wake up?: No 2. Suicidal Thoughts: Have you actually had any thoughts of killing yourself?: No 6. Suicide Behavior Question: Have you ever done anything,started to do anything, or prepared to end your life?: No Interpretation:: Low Risk MAR follow-up Medication Monitorin g and Risk Mitigation Up-to-date on ASAM recommended lab testing?: Yes Prescribed a buprenorphine product?: Yes Has patient had a buprenorphine and metabolite lab ordered/collected?: No Prescription Drug Monitoring Program Rev iew: Yes. No concerns at this time. Plan to address any concerns identified:: No concerns identified. Will continue treatment plan as is. Cravings, Setbacks, Substanc e use, and Stressors Cravings since last visit:: No. Patient denies cravings since last visit. Setbacks since last visit?: No, patient denies setbacks since last visit. Misuse of substances since last visit:: No, patient denies. Stressors: No, patient denies stressors at this time. Withdrawal and Intoxication Symptoms Int oxication Symptoms:: No signs of intoxication are present during visit. Withdrawal Symptoms:: No withdrawal sign s are present during visit. Mental Health, Support Syste m, and Social Determinants Mental Health Status: Stable. Support Systems Include:: Personal suppo rt system (see notes). Court System Involvement?: No Housing Stability:: Stable and safe hous ing. Currently employed?: Unemployed. Referrals needed:: No referrals needed a t this time. Recommended Wellness and Pre vention Follow-up Recommended Wellness and Prevention reviewed:: Yes. No additional orders/actions needed at this time. Other concerns: Other Concerns?: No. Narcan need: No. Patient already has [place] can. CSSRS Interpretation and Follow Up Plan CSSRS Interpretation and Follow Up Plan CSSRS Screen documented using SF: Yes Risk Disposition from SF: Low - No Follo w Up Plan Required Follow Up Plan: No Follow Up Plan requir ed at this time. Examination Category Sub-Category Detail Notes Category Not es General Examination GENERAL APPEARANCE: pleasant, in n o acute distress PSYCH: alert, oriented x4, speech clear, good eye contact, full range of affect/positive mood, judgement and insight good, thought process logical, goal directed
--- OUTSIDE RECORDS SUMMARY | 2024-07-04 22:47 | XMS_ITS | Clinical Summary ---
[facility] Address [address] [place] [address] Care Team Providers Care Clinical Specialty Rep Name Role Phone Unavailable Primary Care Provider Unavailabl e Allergies Active Allergy Reactions Criticality Noted Date Comments Azithromycin Nausea and Vomiting Low 04/07/2022 Codeine Nausea and Vomiting Low 12/25/2022 Pecan Nut Unknown 03/23/2023 Medications ascorbic acid, vitamin C, (VITAMIN C) 1,000 mg Tablet Take 1,000 mg by mouth daily. Active multivitamin (DAILY-CARMEN) tablet Take 1 Tablet by mouth daily. Active acetaminophen (TYLENOL) 325 mg tablet Take 325 mg by mouth every 4 hours as needed. Active ibuprofen (MOTRIN) 400 mg tablet Take 400 mg by mouth every 6 hours as needed for Pain, Mild. Active naloxone (NARCAN) 4 mg/spray [place], Non-Aerosol EMERGENCY USE ONLY: Administer 1 spray (4 mg) in one nostril one time. May repeat in alternating nostrils every 2-3 min until responsive or EMS arrives. 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 Apply to port 30 min before treatment 30 Gram 3 02/01/20 23 Active ondansetron (ZOFRAN) 8 mg Tablet Take 1 Tablet (8 mg) by mouth every 8 hours as needed for Nausea/Emesis. 30 Tablet 2 12/07/20 23 Active allopurinoL (ZYLOPRIM) 300 mg tablet Take 1 Tablet (300 mg) by mouth daily. 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 21 Tablet 03/18/20 23 Active hydrOXYzine HCL (ATARAX) 25 mg tablet Take 1 Tablet (25 mg) by mouth 3 times daily as needed for Itching. 30 Tablet 1 03/20/20 23 Active megestroL (MEGACE) 400 mg/10 mL (40 mg/mL) suspensionIndica tions:Anorexia Take 10 mL (400 mg) by mouth daily. 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 4 Tablet 3 03/20/20 23 Active ferrous sulfate 325 mg (65 mg iron) tablet Take 325 mg by mouth daily. Active cyanocobalamin (VITAMIN B-12) 500 mcg tablet Take 500 mcg by mouth daily. Active lidocaine (lidocaine viscous 2%) 2 % Solution 5 mL by Mouth/Throat route every 6 hours as needed for Pain. 20 mL 03/26/20 23 Active HYDROcodone-acet aminophen (NORCO) 5-325 mg tabletIndication s:Alcohol-induce d acute pancreatitis without infection or necrosis Take 1 Tablet by mouth every 8 hours as needed for Pain, Moderate. 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 Max Daily Amount: 4 Tablets 120 Tablet 04/10/19 24 Active Active Problems Problem Noted Date Diagnosed Date Alcohol-induced acute pancre atitis without infection or necrosis 03/26/2023 Follicular lymphoma 03/25/2023 Generalized rash 03/25/2023 Normocytic anemia 03/25/2023 Thrombocytosis 03/25/2023 Tobacco abuse 03/25/2023 Resolved Problems Problem Noted Date Diagnosed Date Resolved Date Acute pancreatitis 03/25/2023 Acute alcoholic intoxication with complication 03/25/2023 03/26/2023 Metabolic acidosis, increased anion gap (IAG) 03/25/20 23 03/26/2023 Hypokalemia 03/25/2023 03/26/2023 Encounters Date Type Department Care Team Description 05/04/2024 External Device Data [facility] ABSTRACTION Provider, Abstract 04/21/2024 External Device Data [facility] ABSTRACTION Provider, Abstract 04/13/2024 External Device Data [facility] ABSTRACTION Provider, Abstract from Last 3 Months Family History Medical History Relation Name Comments Kidney Cancer Mother Relation Name Status Comments Brother Alive Daughter Alive Father Alive Mother Alive Sister Alive Social History Tobacco Use Types Packs/Day Years Used Date Smoking Tobacco: Every Day Cigarettes Smokeless Tobacco: Never Tobacco Cessation:Ready to Q uit: Not Asked; Counseling Given: Not Answered Alcohol Use Standard Drinks/Week Comments Not Currently 0 (1 standard drink = 0.6 oz pur e alcohol) Feeling Safe Answer Date Recorded Are you in a relationship wi th someone who hurts you emotionally and/or physically? No 03/24/2023 Comments No Sex and Gender Information Value Date Recorded Sex Assigned at Not on file Legal Sex Female 3:02 PM CDT Gender Identity Not on file Sexual Orientation Not on file Last Filed Vital Signs Vital Sign Reading Time Taken Comments Blood Pressure 109/66 04/17/2023 8:40 AM SALES INSPECTOR Pulse 111 04/17/2023 8:40 AM SALES INSPECTOR Temperature 36.6 C (97.9 F) 04/17/2023 8:40 AM SALES INSPECTOR Respiratory Rate 10 04/17/2023 8:40 AM SALES INSPECTOR Oxygen Saturation 92% 03/27/2023 11:06 AM SALES INSPECTOR Inhaled Oxygen Concentration - - Weight 51.3 kg (113 lb) 04/17/2023 8:40 AM SALES INSPECTOR Height 162.6 cm (5' 4 ) 03/24/2023 6:27 PM SALES INSPECTOR Body Mass Index 19.4 03/24/2023 6:27 PM SALES INSPECTOR Plan of Treatment Health Maintenance Due Date Last Done Comments HEPATITIS B VACCINES (1 of 3 - 19+ 3-dose series) 02/21/2011 Preventative Visit-Managed Medicaid 02/21/2011 HPV/Cotest (21-29) 02/21/2013 PAP SMEAR 02/21/2013 CERVICAL CANCER SCREENING 02/21/2022 HPV/Cotest (30-65) 02/21/2022 PAP SMEAR 02/21/2022 INFLUENZA VACCINE (#1) 2023 04/02/2022 DTAP/TDAP/TD VACCINES (3 - T d or Tdap) 02/07/2032 02/06/2022, 11/05/2020 HPV VACCINES Aged Out No longer eligi ble based on patient's age to complete this topic Insurance [place] [facility] [place] Advance Directives For more information, please contact: [phone] * Full Code (Latest Code Status on File) Date Activated Date Inactivated Comments 03/25/2023 1:09 AM 03/26/2023 3:29 PM
--- OUTSIDE RECORDS SUMMARY | 2024-07-04 22:47 | XMS_ITS | Patient Health Record ---
Author Organization [facility] Address [address] [place] [address] Care Team Providers Care Sign Maintenance Name Role Phone NavyanilaRichard Primary Care Provider Satya Fernandez Unavailable [phone] Mandi Love Unavailable [phone] Evie Epps Unavailable [phone] Minerva Peacock Unavailable [phone] Allergies Allergen (clinical drug ingredient) Drug/Non Drug [...] neg OXY neg PCP neg BUP POS 12 Panel Urine Drug Screen Reviewed date:05/13/2024 01:25:08 PM Interpretation: Performing Lab: Notes/Report: THC pos JULISA neg MOP (OPI) neg AMP neg MET neg BAR neg BZO neg MDMA neg MTD neg OXY neg PCP neg BUP pos 12 Panel Urine Drug Screen Reviewed date:01/29/2024 02:09:28 PM Interpretation: Performing Lab: Notes/Report: THC POS JULISA neg MOP (OPI) neg AMP neg MET neg BAR neg BZO neg MDMA neg MTD neg OXY neg PCP neg BUP POS 12 Panel Urine Drug Screen Reviewed date:01/01/2024 02:12:38 PM Interpretation: Performing Lab: Notes/Report: THC POS JULISA neg MOP (OPI) neg AMP neg MET neg BAR neg BZO neg MDMA neg MTD neg OXY neg PCP neg BUP POS 12 Panel Urine Drug Screen Reviewed date:12/19/2023 10:18:20 AM Interpretation: Performing Lab: Notes/Report: THC POS JULISA neg MOP (OPI) POS AMP neg MET neg BAR neg BZO neg MDMA neg MTD neg OXY neg PCP neg BUP POS Reason For Referral Reason RECURRENT ABSCESS RI GHT PERINEUM Diagnosis 1 Abscess (L02.91) Referral Organization [facility] Referring Provider First Name Satya Referring Provider Last Name Rebecca Referring Provider Speciality Internal M edicine Referred Provider Specialty Surgery General Notes GUERO Song Valeri e A 02/13/2024 09:35:39 AM > Referral to [facility] Colon and Rectal Surgery. Letter to pt. Clinical Notes [facility] Colon and Rectal Surgery, [address] [facility] [id number], Phone#[phone], Referral Priority Routine Reason IMPACTED MOLAR AND S EVERE CARIES RIGHT LOWER JAW THAT DENTIST DECLINED TO TREAT Diagnosis 1 Dental caries (K02.9 ) Referral Organization [facility] Referring Provider First Name Satya Referring Provider Last Name Rebecca Referring Provider Speciality Internal M edicine Referred Provider Specialty Dental Gener al Practice General Notes GUERO Song, Brooke Phillips 02/13/2024 09:57:12 AM > Referral to [facility] Dentistry. Letter to pt. Clinical Notes [facility] Adult Dentist, [address] [place] [id number], , Referral Priority Routine Reason anxiety, shanna Diagnosis 1 Opioid use disorder (F11.99) Referral Organization [facility] Referring Provider First Name Minerva Referring Provider Last Name Madonna Referring Provider Speciality Psychiatry Referred Provider Specialty Psychiatry Clinical Notes Rashida Krishnamurthy 11:29:12 AM >Outreach to client, no answer, LVM requesting call back.Raghu Michelle R 06/04/2024 12:37:33 PM >2nd outreach, no answer, LVM.Raghu Michelle R 06/07/2024 02:49:41 PM > 3rd phone outreach, No answer. Will send letter., Rashida Krishnamurthy Maria Elena 06/22/2024 10:35:01 AM >Letter sent on this date regarding central access for therapy/[facility] intake. Will close out referral, as information will be provided in letter for how to enroll in services, however will remain available for future needs, questions, concerns. Referral Priority Routine Medications Medication SIG (Take, Route, Frequency, Duration) Notes Start Date End Date Status Buprenorphine HCl-Naloxone HCl 8-2 MG 1 film under the tongue and allow to dissolve Sublingual up to three times a day 05/27/2024 Active Naproxen 250 MG 1 tablet with food or milk Orally Twice a day for 30 day(s) 01/01/2024 Active traZODone HCl 50 MG 1 tablet at bedtime as needed Orally at night Active hydrOXYzine Pamoate 25 MG 1 capsule Every 4 hours as needed Active Symbicort 80-4.5 MCG/ACT 1 puff Inhalation every 6 hours As needed asthma 01/16/2024 Active Budesonide-Formoterol Fumarate 80-4.5 MCG/ACT 1 puff Inhalation every 6 hours As needed asthma 01/16/2024 Active predniSONE 20 MG 1 tablet Orally [...] History Observation Description Sex Assigned At Female PRAPARE Question Answer Notes Date Completed/Updated: 07/02/2018 What is your current housing situation? I have h ousing Are you worried about losing your housing? No What is the highest level of school that you have finished? High school diploma or GED What is your current work situation? Unemployed and seeking work In the past year, have you o r any family members you live with been unable to get any of the following when it was really needed? Check all that apply I do not have problems meeting my needs Has lack of transportation k ept you from medical appointments, meetings, work or from getting things needed for daily living? No How often do you see or talk to people that you care about and feel close to? (For example: talking to friends on the phone, visiting friends or family, going to pentecostalism or club meetings) More than 5 times a week How stressed are you? Stress is when someone feels tense, nervous, anxious, or can\t sleep at night because their mind is troubled A little bit In the past year have you sp ent more than 2 nights in a row in a fci, senior living, snf center, or juvenile correctional facility? Yes What was your release date? 06/30/2018 Are you a refugee? No What country are you from? [place] Do you feel physically and e motionally safe where you currently live? Yes In the past year, have you b een afraid of your partner or ex-partner? No PRAPARE Score: 6 Tobacco Control (Standard) Question Answer Notes Tobacco use: Current every day smoker Additional Findings: Tobacco user Moderate cigar ette smoker (10-19 cigs/day) Problems Problem Type SNOMED Code ICD Code Onset Dates Problem Status W/U Status Risk Notes Problem Tobacco user (402848234) Nicotine dependence, unspecified, uncomplicated (F17.200) Active confirmed Problem Exacerbation of asthma (480121522) Asthma exacerbation (J45.901) Active confirmed Problem Mild intermittent asthma (923630331) Mild intermittent asthma without complication (J45.20) Active confirmed Problem Tobacco use (268606196) Tobacco use disorder (F17.200) Active confirmed Problem Lymphoma involves multiple lymph node regions (finding) (196353980) Lymphoma of lymph nodes of multiple regions, 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) Active confirmed Problem Mental disorder caused by drug (032917182) Opioid use disorder (F11.99) Active confirmed Vital Signs Heart Rate 98 /min 05/27/2024 Temperature 98.8 degrees Fahrenheit 12/19/2023 Respiratory Rate 16 /min 05/27/2024 Oximetry 98 % 05/27/2024 Blood pressure diastolic 58 mm Hg 05/13/2024 Height 62 in 05/27/2024 Blood pressure systolic 102 mm Hg 05/13/2024 Weight 108.6 lbs 05/27/2024 BMI 19.86 kg/m2 05/27/2024 Encounters Encounter Location Date Provider Diagnosis [address] [place] [address] 12/19/2023 Jenia Heavenila Opioid use disorder F11.99 and Nicotine dependence, unspecified, uncomplicated F17.200 [address] [address] [address] 01/01/2024 Jenia Heavens Opioid use disorder F11.99 and Nicotine dependence, unspecified, uncomplicated F17.200 [address] [address] [place] [address] 01/02/2024 Satya Fernandez Abscess L02.91 ; Dental caries K02.9 ; Lymphoma of lymph nodes of multiple regions, unspecified lymphoma type C85.98 ; Opioid use disorder F11.99 and Nicotine dependence, unspecified, uncomplicated F17.200 [address] [address] [place] [address] 01/16/2024 Satya Fernandez Asthma exacerbation J45.901 ; Mild intermittent asthma without complication J45.20 and Nicotine dependence, unspecified, uncomplicated F17.200 [address] [address] [place] [address] 01/29/2024 Jenia Heavenila Opioid use disorder F11.99 and Tobacco use disorder F17.[address] [place] [address] 05/13/2024 Minerva Sextonrichard Patient underweight R63.6 ; Opioid use disorder F11.99 ; Non-tobacco user Z78.9 and Nutritional counseling Z71.3 [address] [address] [place] [address] 05/27/2024 Jenia Heavens Opioid use disorder F11.99 and Nicotine dependence, unspecified, uncomplicated F17.200 Assessments Encounter Date Diagnosis (ICD Code) Assessment Notes Treatment Notes Treatment Clinical Notes Section Notes 12/19/2023 Nicotine dependence, unspecified, uncomplicated (ICD-10 - F17.200) 12/19/2023 Opioid use disorder (ICD-10 - F11.99) 01/02/2024 Dental caries (ICD-10 - K02.9) 01/02/2024 Abscess (ICD-10 - L02.91) BASE OF RIGHT BUTTOCK IN PERINEUM. AREA CLEANED WITH ALCOHOL AND INCISED WITH #15 BLADE. SMALL AMOUNT BLOOD OBTAINED. SHE TOLERATED WELL. GAUZE AND TAPE APPLIED. TO CHANGE DAILY. DISCUSSSED NEED FOR ANTIBX, SURGICAL CONSULTATION, ANALGESIC, HEAT. CALL IF WORSENING. ADDENDUM: SUBSTITUTED CIPRO FOR LEVAQUIN DUE TO PHARMACY STOCK ISSUES. 01/01/2024 Opioid use disorder (ICD-10 - F11.99) 01/16/2024 Asthma exacerbation (ICD-10 - J45.901) NEBULIZER TREATMENT COMPLETED WITH 2.5 MG ALBUTEROL AND PATIENT TOLERTED WELL, FELT MUCH BETTER AFTER TREATMENT. 01/16/2024 Mild intermittent asthma without complication (ICD-10 - J45.20) 01/29/2024 Tobacco use disorder (ICD-10 - F17.200) 01/29/2024 Opioid use disorder (ICD-10 - F11.99) 05/13/2024 Patient underweight (ICD-10 - R63.6) 05/13/2024 Opioid use disorder (ICD-10 - F11.99) 05/27/2024 Nicotine dependence, unspecified, uncomplicated (ICD-10 - F17.200) 05/27/2024 Opioid use disorder (ICD-10 - F11.99) 05/13/2024 Non-tobacco user (ICD-10 - Z78.9) 01/16/2024 Nicotine dependence, unspecified, uncomplicated (ICD-10 - F17.200) 01/02/2024 Lymphoma of lymph nodes of multiple regions, unspecified lymphoma type (ICD-10 - C85.98) 01/01/2024 Nicotine dependence, unspecified, uncomplicated (ICD-10 - F17.200) 01/02/2024 Opioid use disorder (ICD-10 - F11.99) 05/13/2024 Nutritional counseling (ICD-10 - Z71.3) 01/02/2024 Nicotine dependence, unspecified, uncomplicated (ICD-10 - F17.200) 12/19/2023 Other Patient agrees to take medication as prescribed. Discussed medication side effects, adverse effects, risks, benefits, as well as interactions. Encouraged non-use of opioids. Has naloxone. Recommended participation in recovery groups and/or counseling services. May contact office with questions or concerns. 01/01/2024 Other Client agrees to take medication as prescribed. Discussed medication side effects, adverse effects, risks, benefits, as well as interactions. Encouraged non-use of opioids. Has naloxone. Recommended participation in recovery groups/counseling services. May contact office with questions or concerns. 01/29/2024 Other Client agrees to take medication as prescribed. Discussed medication side effects, adverse effects, risks, benefits, as well as interactions. Encouraged non-use of opioids. Has naloxone. Recommended participation in recovery groups/counseling services. May contact office with questions or concerns. 05/13/2024 Other Patient agrees to take medication as prescribed. Discussed medication side effects, adverse effects, risks, benefits, as well as interactions. Encouraged non-use of opioids and other illicit substances. Has naloxone. Discontinuing buprenorphine increases the risk of overdose upon return to illicit opioid use. Use of alcohol or benzodiazepines with buprenorphine increases the risk of overdose and . Education provided about safe storage of medications. Encouraged participation in recovery groups/counseling services. Contact office with questions or concerns. 05/27/2024 Other Patient agrees to take medication as prescribed. Discussed medication side effects, adverse effects, risks, benefits, as well as interactions. Encouraged non-use of opioids. Has naloxone. Recommended participation in recovery groups and/or counseling services. May contact office with questions or concerns. Patient may self-administe r their own medications or may self-administe r their own oral medications per [place] Protocol. Plan Of Treatment Next Appt Details Provider Name:Richard mireles, 07/08/2024 02:20:00 PM, [address], [place], [address], Insurance Providers Payer Name Payer Address Payer Phone Subscriber Number Group Number Insured Name Patient Relationship to Insured Coverage Start Date Coverage End Date [employer] [facility] [address] [place] [phone] [id number] Soha Marrero Self - patient is the insured 2 Medical (General) History Medical History History ICD Code Bipolar 1 Disorder Alcohol Use Disorder Surgical History Surgery Date(Month/Year) Ectopic Open Chest Surgery Chemo Port 2022 Hospitalization History Reason Date(Month/Year) [place] x2
--- OUTSIDE RECORDS SUMMARY | 2024-07-04 22:47 | XMS_ITS ---
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 05/23/2023 Suicide risk 05/21/2023 Overview (05/21/2023): 05-17-2023 Methamphetamine abuse 05/21/2023 Overview (05/21/2023): Current 05-17-2023 Opiate abuse, continuous 05/21/2023 Overview (05/21/2023): Current 05-17-2023 Neg opiate UDS despite percocet 10 mg TID (#30) dispensed Drug abuse 05/21/2023 Overview (05/21/2023): Mis use of suboxone Buying on the streets Documented 05-17-2023 Left against medical advice 05/21/2023 Overview (05/21/2023): Multiple AMA reports Anxiety and depression 05/07/2023 Cancer associated pain 05/07/2023 Nausea and vomiting 05/07/2023 Alcohol abuse 05/07/2023 Overview (05/21/2023): 05-17-2023 current use Anxiety 05/07/2023 Under care of detention service 05/07/2023 Overview (05/07/2023): Two previous stays at detention Child living with her parents Current Treatment and Therapy Plans No current plan information found. Past Treatment and Therapy Plans ONCOLOGY TREATMENT Plan Name Start Date Discontinue Date Treatment Medications Discontinue Reason Plan Provider Cycles [facility]: Bendamustine + RITUXimab - 28 Day Cycle - Follicular Lymphoma (grade 1-2) 05/26/19 24 03/03/2024 bendamustine (BENDEKA) chemo infusionrasburicase (ELITEK) IVPBriTUXimab-PVVR (RUXIENCE) infusion Therapy Complete Gabriel Salmeron MD 6 of 7 cycles started Resolved Problems Problem Noted Date Diagnosed Date Resolved Date LRTI (lower respiratory tract infection) 09/09/2023 11/26/2023 Lymphoma 05/07/2023 10/29/2023 Overview (05/21/2023): Resistant to care No show ONC Refusing hospice 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/21/2023): Current cannabis; 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 Hx of detention time
--- OUTSIDE RECORDS SUMMARY | 2024-07-04 22:47 | XMS_ITS | Clinical Summary ---
Author Organization [facility] [address] [facility] Address [address] [place] [address] Care Team Providers Care Supervisor Fur Dressing Name Role Phone Richard Fish NP Primary Care Provider Allergies Active Allergy Reactions Criticality Noted Date Comments Azithromycin Vomiting Low 04/07/2022 Medications ketorolac (TORADOL) 10 mg tablet Take 1 tablet (10 mg total) by mouth every 6 (six) hours as needed for pain 20 tablet 3 Active lidocaine viscous (XYLOCAINE) 2 % solution Apply 5 mL topically every 3 (three) hours 100 mL 3 Active buprenorphine-n aloxone (SUBOXONE) 8-[address] 1 Film under the tongue daily 2 Film 4 Active Immunizations Immunization Administration Dates Next Due Tdap 02/06/2022 Social History Tobacco Use Types Packs/Day Years Used Date Smoking Tobacco: Never Assessed Personal Safety Answer Date Recorded Have you ever been in or are you currently in a harmful physical or emotional relationship or is someone making you feel afraid or unsafe? Denies 12/18/2023 Comments No Sex and Gender Information Value Date Recorded Sex Assigned at Not on file Legal Sex Female 6:50 AM CDT Gender Identity Not on file Sexual Orientation Not on file Obstetrics History Last Filed Vital Signs Vital Sign Reading Time Taken Comments Blood Pressure 111/84 12/18/2023 6:36 PM CDT Pulse 94 12/18/2023 6:36 PM CDT Temperature 36.3 C (97.3 F) 12/18/2023 2:02 PM CDT Respiratory Rate 18 12/18/2023 6:36 PM CDT Oxygen Saturation 98% 12/18/2023 6:36 PM CDT Inhaled Oxygen Concentration - - Weight 59 kg (130 lb) 12/18/2023 2:02 PM CDT Height 162.6 cm (5' 4 ) 09/28/2023 7:04 PM CDT Body Mass Index 22.31 09/28/2023 7:04 PM CDT Plan of Treatment Health Maintenance Due Date Last Done Comments Cervical Cancer Screening 1992 Depression Screening 1992 Hepatitis C Screening 1992 Varicella Vaccines (1 of 2 - 13+ 2-dose series) 02/21/2005 Hepatitis B Screening 02/21/2010 Regular Well Visit/Exam 18-64 02/21/2010 Pneumococcal vaccine <65 (1 of 2 - PCV) 02/21/2011 Zoster Vaccine (1 of 2) 02/21/2011 Covid-19 Vaccine (3 - Pfizer risk series) 12/25/2020 11/27/2020, 11/06/2020 Influenza Vaccine (#1) 2023 04/02/2022 DTaP/Tdap/Td Vaccine (3 - Td or Tdap) 02/07/2032 02/06/2022, 11/05/2020 HPV Vaccines Aged Out No longer eligi ble based on patient's age to complete this topic Insurance Care Teams Supervisor Fur Dressing Relationship Specialty Start Date End Date Richard Fish NP [address] [place] [address] [place] [address] PCP - General Nurse Practitioner 02/13/24
--- OUTSIDE RECORDS SUMMARY | 2024-07-04 22:47 | XMS_ITS | Referral Summary ---
Author Organization [facility] [address] [facility] Address [address] [place] [address] Care Team Providers Care Ultimate Hoops Trainer Name Role Phone Richard Fish NP Primary [...] 09/28/2023 7:04 PM CDT Plan of Treatment Not on file Insurance [facility] Care Teams Ultimate Hoops Trainer Relationship Specialty Start Date End Date Richard Fish NP [address] [facility] [place] [address] PCP - General Nurse Practitioner 02/13/24
--- OUTSIDE RECORDS SUMMARY | 2024-07-04 22:47 | XMS_ITS | Clinical Summary ---
Author Organization [facility] Address [address] [place] [address] Phone Care Team Providers Care Ekg Monitor Name Role Phone Gabriel Salmeron MD Unavailable Brooks Sosa MD Unavailable [phone] Provider, None Primary Care Provider UnavailKervin Rubi MD Unavailable Allergies Active Allergy Reactions Criticality Noted Date Comments Allopurinol Rash High 11/26/2023 Skin rash and mouth sores Azithromycin Vomiting 02/10/2022 Diphenhydramine Other (see Comments) Medium 06/13/2023 Idiopathic reaction--hyperactivity Codeine Unknown 02/10/2022 Pecan Extract Unknown 03/23/2023 Medications buprenorphine-n aloxone (Suboxone) 8-2 MG FILM every 8 hours. 4 Active ondansetron (ZOFRAN-ODT) 4 MG TABLET DISPERSIBLE Take 2 Tablets by mouth every 8 hours as needed for Nausea - 1st line. 80 Tablet 2 4 Active ibuprofen (MOTRIN) 200 MG TabletIndicatio ns:Pain Take 200 mg by mouth every 8 hours as needed for Mild or more severe pain. Indications: Pain Active ACETAMINOPHEN PO Take 1,000 mg by mouth 3 times daily. 025 Discontin ued(Alter moisés therapy) LOW-DOSE ASPIRIN PO Take by mouth daily. 025 Discontin ued(Med List Clean Up) nicotine (Nicotine Step 1) 21 MG/24HR PATCH 24 HR 1 Patch by Transdermal route every 24 hours. 30 Patch 4 025 Discontin ued(Med List Clean Up) hydrOXYzine (ATARAX) 25 MG Tablet Take 1 Tablet by mouth every 8 hours as needed for Anxiety. 60 Tablet 2 4 025 Discontin ued(Med List Clean Up) ibuprofen (MOTRIN) 600 MG Tablet Take 1 Tablet by mouth every 6 hours as needed for Mild or more severe pain. 90 Tablet 4 025 Discontin ued(Med List Clean Up) nicotine (Nicotine Step 2) 14 MG/24HR PATCH 24 HR 1 Patch by Transdermal route every 24 hours. 30 Patch 4 025 Discontin ued(Med List Clean Up) naproxen (NAPROSYN) 500 MG Tablet Take 1 Tablet by mouth 2 times daily (with meals). 60 Tablet 4 025 Discontin ued(Med List Clean Up) HYDROcodone-stacey taminophen (NORCO) 5-325 MG TabletIndicatio ns:Encounter for removal of tunneled central venous catheter (CVC) with port Take 1 Tablet by mouth every 8 hours as needed for Moderate or more severe pain. 12 Tablet 5 025 Discontin ued(Alter moisés therapy) Active Problems Problem Noted Date Diagnosed Date [...] current use Anxiety 05/07/2023 Under care of shelter service 05/07/2023 Overview (05/07/2023): Two previous stays at shelter Child living with her parents Resolved Problems Problem Noted Date Diagnosed Date Resolved Date LRTI (lower respiratory tract infection) 09/09/2023 11/26/2023 Lymphoma 05/07/2023 10/29/2023 Overview (05/21/2023): Resistant to care No show ONC Refusing hospice 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/21/2023): Current cannabis; 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 Hx of shelter time Encounters Date Type Department Care Team Description 06/17/2024 11:40 AM CDT - 06/17/2024 12:40 PM CDT [facility] [address] [place] [address] Kervin Jiang MD REMOVAL OF PORT, LEFT SIDE 06/17/2024 11:39 AM CDT [facility] [address] [place] [address] Roland Martinez MD [place], Kevin L, APRN, PRESCHOOL TEACHER AIDE 06/17/2024 8:59 AM CDT - 06/17/2024 1:15 PM CDT [facility] [address] [place] [address] Kervin Jiang MD Discharge Disposition: Discharged to home or Selfcare 06/17/2024 [facility] [address] [address] Kervin Jiang MD Medication Management 06/15/2024 Travel 06/11/2024 10:00 AM PATIENT COORDINATOR FRONT DESK [facility] [address] [address] Gabriel Salmeron MD Sanz, Alejandro Federico, MD 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); Encounter for removal of tunneled central venous catheter (CVC) with port Discharge Disposition: Discharged to home or Selfcare 06/10/2024 Travel 05/28/2024 11:00 AM PATIENT COORDINATOR FRONT DESK Clinical [facility] [address] [place] [address] Gabriel Salmeron MD 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) Discharge Disposition: Discharged to home or Selfcare 05/28/2024 Travel 05/27/2024 Travel 05/24/2024 Telephone [facility] [address] [place] [address] Gabriel Salmeron MD 04/19/2024 [facility] [address] [place] [address] Radha Sales APRN, DOUPER Referral from Last 3 Months Immunizations Immunization Administration Dates Next Due Influenza Vaccine, Quadrivalent, PF 04/02/2022 TDAP Vaccine 02/06/2022,11/05/2020 Family History Medical History Relation Name Comments No Known Problems Father Cancer Mother Osteoarthritis Mother Relation Name Status Comments Brother Alive Father Alive Mother Alive Social History Tobacco Use Types Packs/Day Years Used Date Smoking Tobacco: Every Day Cigarettes 1 14.2 Started: 04/07/2010 Passive Smoke Exposure: Current Smokeless Tobacco: Never Tobacco Cessation:Ready to Q uit: Yes; Counseling Given: Yes Alcohol Use Standard Drinks/Week Comments Yes 2 (1 standard drink = 0.6 oz pur e alcohol) occasional [facility] Utilities Answer Date Recorded In the past 12 months has [employer], gas, oil, or water [employer] threatened to shut off services in your home? Yes 05/07/2023 Social Connection and Isolation Panel [NHANES] A nswer Date Recorded In a typical week, how many times do you talk on the phone with family, friends, or neighbors? Once a week 05/07/2023 How often do you get together with friends or re latives? Once a week 05/07/2023 How often do you attend lutheran or sikh serv ices? Never 05/07/2023 Do you belong to any clubs o r organizations such as lutheran groups, unions, fraternal or athletic groups, or school groups? No 05/07/2023 How often do you attend meet ings of the clubs or organizations you belong to? Never 05/07/2023 Are you , , di vorced, , never , or living with a partner? Never 05/07/2023 AUDIT-C Answer Date Recorded Q1: How often do you have a drink containing alc ohol? Monthly or less 05/07/2023 Q2: How many drinks containi ng alcohol do you have on a typical day when you are drinking? 1 or 2 05/07/2023 Q3: How often do you have si x or more drinks on one occasion? Never 05/07/2023 Overall Financial Resource Strain (CARDIA) Answe r Date Recorded How hard is it for you to pa y for the very basics like food, housing, medical care, and heating? Not very hard 05/07/2023 PHQ-2 Answer Date Recorded Total Score - Questions 1-9 9 06/06 [employer] of Occupat [facility] - Occupational Stress Questionnaire Answer Date Recorded Do you feel stress - tense, restless, nervous, or anxious, or unable to sleep at night because your mind is troubled all the time - these days? Rather much 05/07/2023 Exercise Vital Sign Answer Date Recorde d On average, how many days pe r week do you engage in moderate to strenuous exercise (like a brisk walk)? 2 days Minutes of Exercise per Session Not on file 05/07/2023 Hunger Vital Sign Answer Date Recorded Within the past 12 months, y ou worried that your food would run out before you got the money to buy more. Never true 05/07/19 24 Within the past 12 months, t he food you bought just didn't last and you didn't have money to get more. Never true 05/07/2023 PRAPARE - Transportation Answer Date Re corded In the past 12 months, has l ack of transportation kept you from medical appointments or from getting medications? No 04/09 In the past 12 months, has l ack of transportation kept you from meetings, work, or from getting things needed for daily living? No 05/07/2023 Housing Stability Vital Sign Answer Galindo e Recorded In the last 12 months, was t here a time when you were not able to pay the mortgage or rent on time? No 05/07/2023 In the last 12 months, how many places have you lived? 1 05/07/2023 In the last 12 months, was t here a time when you did not have a steady place to sleep or slept in a senior living (including now)? No 05/07/2023 Sexually Active Control Partners Comments Yes Male Comments Unknown Sex and Gender Information Value Date Recorded Sex Assigned at Female 05/21/2023 11:44 AM PATIENT COORDINATOR FRONT DESK Legal Sex Female 5:17 PM CDT Gender Identity Female 05/21/2023 11:44 AM PATIENT COORDINATOR FRONT DESK Sexual Orientation Not on file Last Filed Vital Signs Vital Sign Reading Time Taken Comments Blood Pressure 159/78 06/17/2024 1:00 PM CDT Pulse 68 06/17/2024 1:00 PM CDT Temperature 36.4 C (97.5 F) 06/17/2024 1:00 PM CDT Respiratory Rate 16 06/17/2024 1:00 PM CDT Oxygen Saturation 100% 06/17/2024 1:00 PM CDT Inhaled Oxygen Concentration - - Weight 52.2 kg (115 lb) 06/17/2024 9:21 AM CDT Height 161.3 cm (5' 3.5 ) 06/17/2024 9:21 AM CDT Body Mass Index 20.05 06/17/2024 9:21 AM CDT Plan of Treatment Health Maintenance Due Date Last Done Comments Hepatitis C Virus (HCV) Screening 1992 Hepatitis B Immunization (1 of 3 - 19+ 3-dose series) 02/21/2011 Pneumococcal Immunization Combined (1 of 2 - PCV) 02/21/2011 Pap Smear 02/21/2013 SARS-COV-2 Immunization (3 - Pfizer risk series) 12/25/2020 11/27/2020, 11/06/2020 Cervical Cancer Screening (CCS) 02/21/2022 HPV/Cotest 02/21/2022 Td Immunization Every 10 Years (Adults With 1 Tdap) 02/07/2032 02/06/2022, 11/05/2020 Respiratory Syncytial Virus (RSV) Immunization (Adult) (1 - 1-dose 75+ series) 02/21/2067 DTaP/Tdap/Td Immunization Discontinued 2021, 11/05/2020 Influenza Immunization Completed 5, 04/02/2022 Meningococcal Immunization (ACWY) Aged Out No longer eligible based on patient's age to complete this topic Rotavirus Immunization Aged Out No lo nger eligible based on patient's age to complete this topic Goals Goal Patient Goal Type Associated Problems Recent Progress Patient-Stated? Author I need to have a safe place to talk things out. Behavioral Health No change(07/29 4:12 PM CDT) Yes Janette Tom LCSW Note: Goal/Objective: Improve insight and understanding of behaviors and feelings. Anticipated Time Frame for Goal Completion: 6 months Goal Reviewed with: patient Readiness to change: Ready to change Department associated with goal: [facility] Steps to achieve goal: will attend psychotherapy/counseling monthly at least 6 sessions and self disclose to have an outlet for distressing thoughts and feelings. will build insight regarding triggers, both internal and external; pt will be able to identify at least two internal and two external triggers to low and anxious moods. Will identify at least two skills/strategies to use when a triggering event occurs Procedures Procedure Name Priority Date/Time Associated Diagnosis Comments PATHOLOGY SURGICAL Routine 06/17/2024 11:55 AM CDT IA RMVL [facility] VAD W/SUBQ PORT/PBX TECHNICIAN CTR/PRPH INSJ 06/17/2024 11:17 AM CDT ENCOUNTER FOR REMOVAL OF TUNNELED CENTRAL VENOUS CATHETER Special Needs Allergy: Allopurinol, Azithromycin, Codeine, Pecan Extract, Benadryl Hx: Drug & Alcohol abuse 5 3.5 119# POCT URINE HCG () Routine 06/17/2024 9:38 AM CDT from Last 3 Months Results * Pathology Surgical (06/17/2024 11:55 AM CDT) Case Report Surgical Pathology Report Case: [id number] Authorizing Provider: Kervin Jiang, Collected: 06/17/2024 11:55 AM Ordering Location: [facility] Received: 06/18/2024 09:02 AM [facility] Main OR Pathologist: Ishan Escobedo MD Specimen: Foreign Body, PORT FROM LEFT CHEST 06/18/2024 2:46 PM CDT [facility] FINAL DIAGNOSIS Foreign body, port from left chest, removal: - As described grossly. 06/18/2024 2:46 PM CDT [facility] at 1446 CDT Pre-Operative Diagnosis ENCOUNTER FOR REMOVAL OF TUNNELED CENTRAL VENOUS CATHETER 06/18/2024 2:46 PM CDT [facility] Gross Description A. PORT FROM LEFT CHEST Specimen presents in a single dry container labeled with the patient's name, Soha Marrero, and designated as foreign body, port from left chest. The specimen consists of a port with attached plastic tubing. The plastic tubing is white and royal blue and measures up to 26 cm length and measures 0.4 cm in diameter. The main part of the port is metallic silver and measures 1.5 x 1.5 x 1 cm. On the backside of the report there are two backwards letters CT. This is for gross dictation only. KS/sb 06/18/2024 2:46 PM CDT [facility] Other FOREIGN BODY SUBMITTED SPECIMEN / Unknown 06/17/2024 11:55 AM CDT 06/18/2024 9:02 AM CDT Kervin Jiang MD PATHOLOGY/CYTOLOGY OR DERABLES Final Result [facility] [address] [place] [address] * POCT Urine HCG () (06/17/2024 9:38 AM CDT) POC URINE Negative POC URINE CONTROL Working Supervisor Pass Urine 06/17/2024 9:38 AM CDT Kervin Jiang MD POINT OF CARE TESTING (MANUAL) Final Result from Last 3 Months Insurance MEDICAID [place] [facility] Care Teams Ekg Monitor Relationship Specialty Start Date End Date Provider, None [place] PCP - General 06/17/24 Gabriel Salmeron MD [address] [place] [address] Consulting Physician Medical Oncology 05/23/23 Brooks Sosa MD [address] [place] [phone] Consulting Physician Neurology 01/22/24 Kervin Jiang MD [address] [phone] Consulting Physician General Surgery 06/11/24
--- OUTSIDE RECORDS SUMMARY | 2024-07-04 22:47 | XMS_ITS | Clinical Summary ---
Author Organization [facility] Address [address] [place] [address] Care Team Providers Care Residential Door Installer Name Role Phone Unavailable Primary Care Provider Unavailabl e Source Comments [facility] [employer],non-owned Affiliates and Associated Physician Practices is amultiple site organization consisting of ambulatory clinics and hospital sitesin [place], [place], [place] and [place]. This disclosure is being madepursuant to the Care Everywhere program and may not contain all information available regarding this patient. Last updated 17.[facility] [employer] Social History Tobacco Use Types Packs/Day Years Used Date Smoking Tobacco: Never Assessed Sex and Gender Information Value Date Recorded Sex Assigned at Not on file Gender Identity Not on file Sexual Orientation Not on file Plan of Treatment Health Maintenance Due Date Last Done Comments PAP SMEAR 1992 HIV SCREENING 02/21/2007 HEPATITIS C SCREENING 02/17/2010 DTAP/TDAP/TD VACCINES (1 - Tdap) 02/21/2011 HEPATITIS B VACCINE (1 of 3 - 19+ 3-dose series) 02/21/2011 COVID-19 VACCINE ( - 2023-2 5 season) 2023 INFLUENZA VACCINE (#1) 2023 DEPRESSION SCREENING 04/07/2024 ZOSTER VACCINE (1 of 2) 02/21/2042 HIB VACCINE Aged Out No longer eligi ble based on patient's age to complete this topic HPV VACCINE Aged Out No longer eligi ble based on patient's age to complete this topic MENINGOCOCCAL (Group B) VACC INE SHARED DECISION-MAKING Aged Out No longer eligibl e based on patient's age to complete this topic MENINGOCOCCAL GROUPS A/C/Y/W VACCINE Aged Out No longer eligible b ased on patient's age to complete this topic PNEUMOCOCCAL VACCINE Aged Out No long er eligible based on patient's age to complete this topic
--- OUTSIDE RECORDS SUMMARY | 2024-07-04 22:47 | XMS_ITS | Encounter Summary ---
Author Organization [facility] Address [address] [place] [address] Care Team Providers Care Structural Steel Worker Name Role Phone Unavailable Primary Care Provider Unavailabl e Encounter Details Date Type Department Care Team (Late st Contact Info) Description 12/19/2022 Lab Requisition [facility] - Pathology Lab [address] [place] [address] Ishan Escobedo MD [address] [address] Illness, unspecified Social History Tobacco Use Types Packs/Day Years Used Date Smoking Tobacco: Never Assessed Sex and Gender Information Value Date Recorded Sex Assigned at Not on file Gender Identity Not on file Sexual Orientation Not on file documented as of this encounter Plan of Treatment Not on file documented as of this encounter Procedures Procedure Name Priority Date/Time Associated Diagnosis Comments PATHOLOGY TISSUE Routine 12/18/2022 9:00 AM CDT Illness, unspecified documented in this encounter Results * PATHOLOGY TISSUE (12/18/2022 9:00 AM CDT) Case Report Surgical Pathology Report Case: [id number] Authorizing Provider: Ishan Escobedo MD Collected: 12/18/2022 09:00 AM Ordering Location: [facility] Pathology Lab Received: 12/19/2022 01:25 PM Pathologist: Giovanni Chow MD Specimen: Lymph Node Biopsy 12/19/2022 3:33 PM CDT [facility] Final Diagnosis Lymph node, biopsy cores: - Follicular lymphoma, low-grade 12/19/2022 3:33 PM CDT [facility] Microscopic Description and Comment Histologic sections show several biopsy cores with a nodular proliferation of small lymphoid cells, morphologically consistent with a follicular lymphoma. Large cell transformation is not appreciated in the small specimen provided. This subclassification is supported by the flow cytometry results of CD10 co-expression. Axillary lymph node, flow cytometry ([id number]): - [place] light chain restricted CD10+ B-cell population detected (~99% of overall events) Also received from [facility] is a peripheral smear showing circulating follicular lymphoma cells with occasional nuclear clefts. The peripheral blood is involved by follicular lymphoma. 12/19/2022 3:33 PM CDT [facility] Clinical History Suspect lymphoma. 12/19/2022 3:33 PM CDT [facility] Materials Received Received are 4 slide(s) and 1 block labeled [id number] along with a copy of the outside pathology report. The materials originate from [place] [address]. All original materials are returned to the referring institution, along with a copy of our final report. 12/19/2022 3:33 PM T [facility] Pathologist Location at [facility] 12/19/2022 3:33 PM CDT [facility] Disclaimer The performance characteristics of all immunohistochemical and indirect immunofluorescence stains (if any) cited in this report were determined by the Histopathology Laboratory of [facility]. Some of these tests were developed by our own laboratory and have not been cleared or approved by the US Food and Drug Administration. The FDA does not require this test to go through premarket FDA review. These tests are used for clinical purposes. They should not be regarded as investigational or for research. This laboratory is certified under the Clinical Laboratory Improvement Amendments (CLIA) as qualified to perform high complexity clinical laboratory testing. This case has been personally reviewed and interpreted by the attending (teaching) pathologist. 12/19/2022 3:33 PM CDT [facility] Embedded Images 12/19/2022 3:33 PM CDT [facility] Pathology/Cytolo gy BIOPSY OF LYMPH NODE / Unknown 12/18/2022 9:00 AM CDT 12/19/2022 1:25 PM CDT Ishan Escobedo MD LAB - PATHOLOGY/CYTO LOGY ORDERABLES [facility] [address] [place] [address]. [place] [address], [facility] [phone] documented in this encounter Visit Diagnoses Diagnosis Illness, unspecified documented in this encounter
--- OUTSIDE RECORDS SUMMARY | 2024-07-04 22:47 | XMS_ITS ---
Author Organization [facility] Address [address] [place] [address] Phone Care Team Providers Care Management Coordinator Name Role Phone Gabriel Salmeron MD Unavailable [phone] Brooks Sosa MD Unavailable [phone] Provider, None Primary Care Provider UnavailKervin Rubi MD Unavailable [facility] Status:Enrolled (Active) Start date:05/05/2024 Enrollment date:05/05/2024 Related social drivers of health:Social Connections, Tobacco Use, Depression, Stress, Physical Activity, Utilities Continued Care and Services Coordination
--- OUTSIDE RECORDS SUMMARY | 2024-07-04 22:47 | XMS_ITS | CONTINUITY OF CARE DOCUMENT ---
Author Name christopher white Address Unknown Organization [facility] Address [address] [place] [address] [address] [place] [address] Phone [phone] Care Team Providers Care Field Gauger Name Role Phone Randy Armstrong MD Unavailable Randy Armstrong MD Unavailable INSURANCE PROVIDERS Payer name Policy type / Coverage type [place] red libertarian ID [place] MEDICAID Medicaid [id number]
--- OUTSIDE RECORDS SUMMARY | 2024-07-04 22:47 | XMS_ITS ---
Author Organization [facility] Address [address] [place] [address] Care Team Providers Care Basketball Referee Name Role Phone Richard Fish Primary Care Provider [phone] Minerva Peacock Unavailable [phone] Allergies Allergen (clinical drug ingredient) Drug/Non Drug Allergy documented on EMR Reaction Allergy Type Onset Date Status azithromycin Zithromax Unknown Drug Allergy Acti ve codeine Codeine Unknown Drug Allergy Active Results Component Value Reference Range Notes 12 Panel Urine Drug Screen Reviewed date:05/13/2024 01:25:08 PM Interpretation: Performing Lab: Notes/Report: THC pos JULISA neg MOP (OPI) neg AMP neg MET neg BAR neg BZO neg MDMA neg MTD neg OXY neg PCP neg BUP pos Reason For Referral Reason anxiety, shanna Diagnosis 1 Opioid use disorder (F11.99) Referral Organization [facility] Referring Provider First Name Minerva Referring Provider Last Name Madonna Referring Provider Speciality Psychiatry Referred Provider Specialty Psychiatry Clinical Notes Rashida Krishnamurthy 11:29:12 AM >Outreach to client, no answer, LVM requesting call back.Raghu Michelle R 06/04/2024 12:37:33 PM >2nd outreach, no answer, LVM.Raghu Michelle R 06/07/2024 02:49:41 PM > 3rd phone outreach, No answer. Will send letter.Raghu Michelle R 06/22/2024 10:35:01 AM >Letter sent on this date regarding central access for therapy/SHANNA intake. Will close out referral, as information will be provided in letter for how to enroll in services, however will remain available for future needs, questions, concerns. Referral Priority Routine REASON FOR VISIT Walk-In Medications Medication SIG (Take, Route, Frequency, Duration) Notes Start Date End Date Status predniSONE 20 MG 1 tablet Orally Once a day for 5 days 01/16/2024 Active Buprenorphine HCl-Naloxone HCl 8-2 MG 1 tablet under the tongue and allow to dissolve Sublingual up to three times a day for 8 days 05/13/2024 Active Symbicort 80-4.5 MCG/ACT 1 puff Inhalation every 6 hours As needed asthma 01/16/2024 Active Budesonide-Formoterol Fumarate 80-4.5 MCG/ACT 1 puff Inhalation every 6 hours As needed asthma 01/16/2024 Active Buprenorphine HCl-Naloxone HCl 8-2 MG 1 film under the tongue and allow to dissolve Sublingual three times a day 01/29/2024 Active Albuterol Sulfate (2.5 MG/3ML) 0.083% 3 mL Inhalation EVERY 4 HOURS As needed asthma demetrius please. waiting for neb tx here 01/16/2024 Active Ciprofloxacin HCl 250 MG 1 tablet Orally every 12 hrs for 10 days 01/02/2024 Active levoFLOXacin 500 MG 1 tablet Orally Once a day for 10 day(s) 01/02/2024 Active metroNIDAZOLE 250 MG 1 tablet Orally Three times a day for 10 day(s) 01/02/2024 Active Naproxen 250 MG 1 tablet with food or milk Orally Twice a day for 30 day(s) 01/01/2024 Active hydrOXYzine Pamoate 25 MG 1 capsule Every 4 hours as needed Active traZODone HCl 50 MG 1 tablet at bedtime as needed Orally at night Active Social History Tobacco Use: Social History Observation Description Date Details (start date - stop date) Never Smoker NA - NA Sex Assigned At : Social History Observation Description Sex Assigned At Female Tobacco Control (Standard) Question Answer Notes Tobacco use: Nonsmoker Vital Signs Weight 107.6 lbs 05/13/2024 Height 64 in 05/13/2024 BMI 18.47 kg/m2 05/13/2024 Blood pressure systolic 102 mm Hg 05/13/19 25 Blood pressure diastolic 58 mm Hg 025 Heart Rate 50 /min 05/13/2024 Oximetry 94 % 05/13/2024 Respiratory Rate 16 /min 05/13/2024 Encounters Encounter Location Date Provider Diagnosis [address] [place] [address] 05/13/2024 Minerva Peacock Patient underweight R63.6 ; Opioid use disorder F11.99 ; Non-tobacco user Z78.9 and Nutritional counseling Z71.3 Assessments Encounter Date Diagnosis (ICD Code) Assessment Notes Treatment Notes Treatment Clinical Notes Section Notes 05/13/2024 Patient underweight (ICD-10 - R63.6) 05/13/2024 Opioid use disorder (ICD-10 - F11.99) 05/13/2024 Non-tobacco user (ICD-10 - Z78.9) 05/13/2024 Nutritional counseling (ICD-10 - Z71.3) 05/13/2024 Other Patient agrees to take medication [...] services. Contact office with questions or concerns. Plan Of Treatment Medication Medication Name Sig Start Date Stop Date Notes Buprenorphine HCl-Naloxone H Cl 8-2 MG 1 tablet under the tongue and allow to dissolve Sublingual up to three times a day for 8 days 05/13/2024 Treatment Notes Assessment Notes Other Patient agrees [...] services. Contact office with questions or concerns. 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 Denies opioid cravings or setbacks. Would like to continue Suboxone at this time. Reports experiencing withdrawal symptoms when tried to reduce dose to 16mg/day. Feels she is experiencing extreme anxiety. When she feels anxious, she has a drink to cope. States anytime she drinks, she ends up hospitalized for psychosis. Has been hospitalized twice in last 3 months. Declines acamprosate. Patient states she does not have cravings for alcohol and does not feel that she has alcohol dependence, but feels she is using this to self-medicate anxiety. Interested in seeing psych provider. Medication Monitoring and Risk Mitigation U p-to-date on [facility] recommended lab testing? Y es, P rescribed a buprenorphine product? Y es, H as patient had a buprenorphine and metabolite lab ordered/collected? N o Obtain next visit, P rescription Drug Monitoring Program Review Y es. No concerns at this time., P rabia to address any concerns identified: N o concerns identified. Will continue treatment plan as is.. C ravings, Setbacks, Substance use, and Stressors C ravings since last visit: N o. Patient denies cravings since last visit., S etbacks since last visit? N o, patient denies setbacks since last visit., M isuse of substances since last visit: Y es, patient admits. See notes., S tressors N o, patient denies stressors at this time.. W ithdrawal and Intoxication Symptoms Intoxication Symptoms: N o signs of intoxication are present during visit., W ithdrawal Symptoms: N o withdrawal signs are present during visit.. M ental Health, Support System, and Social Determinants M ental Health Status S table., S upport Systems Include: P ersonal support system (see notes)., C ourt System Involvement? Y es, H ousing Stability:?Stable and safe housing., C urrently employed? U nemployed., R eferrals needed: Patient is agreeable to the following referrals:, R eferrals placed for: P sychiatric care services. R ecommended Wellness and Prevention Follow-up R ecommended Wellness and Prevention reviewed: Y es. No additional orders/actions needed at this time.. O ther concerns: O ther Concerns? N o., N arcan need N o. Patient already has Narcan.. I nterim History: Emergency room visit Y es. W as hospitalized Y es.? D epression Screening: PHQ-9 L ittle interest or pleasure in doing things N ot at all, F eeling down, depressed, or hopeless N ot at all, T rouble falling or staying asleep, or sleeping too much N ot at all, F eeling tired or having little energy S everal days, P oor appetite or overeating S everal days, F eeling bad about yourself or that you are a failure, or have let yourself or your family down S everal days, T rouble concentrating on things, such as reading the newspaper or watching television S everal days, M oving or speaking so slowly that other people could have noticed; or the opposite, being so fidgety or restless that you have been moving around a lot more than usual N ot at all, T houghts that you would be better off or of hurting yourself in some way N ot at all, T otal Score 4 , I nterpretation M inimal Depression. C SSRS Interpretation and Follow Up Plan: CSSRS Interpretation and Follow Up Plan C SSRS Screen documented using SF Y es, R isk Disposition from SF L ow - No Follow Up Plan Required, F ollow Up Plan N o Follow Up Plan required at this time.. S creening: [employer] Suicide Severity Rating Scale (LF) 1 . Wish to be : Have you wished you were or wished you could go to sleep and not wake up? N o, 2 . Suicidal Thoughts: Have you actually had any thoughts of killing yourself? N o, 6 . Suicide Behavior Question: Have you ever done anything,started to do anything, or prepared to end your life? N o, I nterpretation: L ow Risk. P reventative Health and Wellness follow-up: Action Plans for Clinical Quality Measures: C ervical Cancer Screening: N ot addressed during this visit. See notes for details.. . * ROS: B asic ROS: Admits S ubstance Abuse. * Medical History: * Surgical History: E ctopic Open Chest Surgery Chemo Port 2022 * Hospitalization/Major Diagno stic Procedure: K ettler x2 * Family History: F ather: alive. M other: alive. 1 brother(s) , 1 sister(s) - healthy. 1 daughter(s) - healthy. . * Social History: P rimary Social History: L iving Arrangement L iving Arrangement: I ndependent Living, I s this a supportive environment? Y es. A lcohol Use A lcohol Use Frequency: Monthly or less .. I llicit Substance Usage I llicit Substance Usage: Yes , Interested in quitting: No , Substance Used: Cannabis .. E mployment Status E mployment Status: Unemployed .. T obacco Use: T obacco Control (Standard) T obacco use: N onsmoker. M iscellaneous: M ethod of learning P referred method of learning: D emonstration. * Medications: T akingBuprenorphine HCl-Naloxone HCl 8-2 MG Film 1 film under the tongue and allow to dissolve Sublingual three times a day hydrOXYzine Pamoate 25 MG Capsule 1 capsule Every 4 hours as needed traZODone HCl 50 MG Tablet 1 tablet at bedtime as needed Orally at night Naproxen 250 MG Tablet 1 tablet with food or milk Orally Twice a day metroNIDAZOLE 250 MG Tablet 1 tablet Orally Three times a day levoFLOXacin 500 MG Tablet 1 tablet Orally Once a day Ciprofloxacin HCl 250 MG Tablet 1 tablet Orally every 12 hrs Albuterol Sulfate (2.5 MG/3ML) 0.083% Nebulization Solution [...] the patientTaking Buprenorphine HCl-Naloxone HCl 8-2 MG Film 1 film under the tongue and allow to dissolve Sublingual three times a day Taking hydrOXYzine Pamoate 25 MG Capsule 1 capsule Every 4 hours as needed Taking traZODone HCl 50 MG Tablet 1 tablet at bedtime as needed Orally at night Taking Naproxen 250 MG Tablet 1 tablet with food or milk Orally Twice a day Taking metroNIDAZOLE 250 MG Tablet 1 tablet Orally Three times a day Taking levoFLOXacin 500 MG Tablet 1 tablet Orally Once a day Taking Ciprofloxacin HCl 250 MG Tablet 1 tablet Orally every 12 hrs Taking Albuterol Sulfate (2.5 MG/3ML) 0.083% Nebulization [...] reconciled with the patient * Allergies: Z kiranaxCodearisteo[Allergies Verified] Objective: * Vitals: I nitials: cv, Wt:107.6, Ht: 64, BMI:18.47, BP:102/58, HR:50, Oxygen sat %:94, RR:16, LMP: 05/2024, Pain scale:0. * Examination: A [facility] Physical Assessment: Intoxication and Withdrawal signs I ntoxication signs N o signs of intoxication are present during examination.Withdrawal Signs N o withdrawal signs are present during examination.. G eneral Examination: GENERAL APPEARANCE: a lert, pleasant, in no acute distress.? PSYCH: a lert, oriented x4, speech clear, good eye contact, anxious appearing. Assessment: * Assessment: 1. P atient underweight - R63.6 2 . O pioid use disorder - F11.99 (Primary)? 3. N on-tobacco user - Z78.9 4 . N utritional counseling - Z71.3 Plan: * Treatment: 2. O thers Notes:Patient agrees to take medication as prescribed. Discussedmedication side effects, adverse effects, risks, benefits, as well asinteractions. Encouraged non-use of opioids and other illicit substances. Hasnaloxone. Discontinuing buprenorphine increases the risk of overdose uponreturn to illicit opioid use. Use of alcohol or benzodiazepines withbuprenorphine increases the risk of overdose and . Education providedabout safe storage of medications. Encouragedparticipation in recovery groups/counseling services. Contact office withquestions or concerns. * Recommended Wellness and Pre vention Guidelines: * S tatus A aruna L ast Done N ext Due A ction Taken N ONCOMPLIANT A lcohol use screening - 0 05/13/2024 - N ONCOMPLIANT A sthma symptom assessment - 0 05/13/2024 - N ONCOMPLIANT C ervical cancer screening - 0 05/13/2024 - N ONCOMPLIANT I nfluenza vaccine (high risk) - 0 05/13/2024 - * Labs: * L ab: 12 Panel Urine Drug Screen (Collection Date & Time - 05/13/2024 01:23 PM) Value Reference Range T HC pos * C OC neg * M OP (OPI) neg * A MP neg * M ET neg * B AR neg * B ZO neg * M DMA neg * M TD neg * O XY neg * P CP neg * B UP pos * Procedure Codes: 9 9000 SPECIMEN [id number] SELF-MGMT EDUC & TRAIN, 1 [id number] TOBACCO NON-USER * Preventive Medicine: Counseling: C are goal follow-up plan: B IN management provided Y es, B elow Normal BMI Follow-up L ifestyle education regarding diet. 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] some way: Not at all Total Score: 4 Interpretation: Minimal Depression Screening [employer] Suicide Sev erity Rating Scale (LF) 1. Wish to be : Have you [...] Monitorin g and Risk Mitigation Up-to-date on [facility] recommended lab testing?: Yes Prescribed a buprenorphine product?: Yes Has patient had a buprenorphine and metabolite lab ordered/collected?: No Obtain next visit Prescription Drug Monitoring Program Review: Yes. No concerns at this time. Plan to address any concerns identified:: No concerns identified. Will continue treatment plan as is. Cravings, Setbacks, Substanc e use, and Stressors Cravings since last visit:: No. Patient denies cravings since last visit. Setbacks since last visit?: No, patient denies setbacks since last visit. Misuse of substances since last visit:: Yes, patient admits. See notes. Stressors: No, patient denies stressors at this time. Withdrawal and Intoxication Symptoms Int oxication Symptoms:: No signs of intoxication are present during visit. Withdrawal Symptoms:: No withdrawal sign s are present during visit. Mental Health, Support Syste m, and Social Determinants Mental Health Status: Stable. Support Systems Include:: Personal suppo rt system (see notes). Court System Involvement?: Yes Housing Stability:: Stable and safe hous ing. Currently employed?: Unemployed. Referrals needed:: Patient is agreeable to the following referrals: Referrals placed for:: Psychiatric care services Recommended Wellness and Pre vention Follow-up Recommended Wellness and Prevention reviewed:: Yes. No additional orders/actions needed at this time. Other concerns: Other Concerns?: No. Narcan need: No. Patient already has [place] can. Preventative Health and Wellness follow-up Action Plans for Clinical Quality Measures: Cervical Cancer Screening:: Not addressed during this visit. See notes for details. . CSSRS Interpretation and Follow Up Plan CSSRS Interpretation and Follow Up Plan CSSRS Screen documented using SF: Yes Risk Disposition from SF: Low - No Follo w Up Plan Required Follow Up Plan: No Follow Up Plan requir ed at this time. Examination Category Sub-Category Detail Notes Category Not es General Examination GENERAL APPEARANCE: alert, p leasant, in no acute distress PSYCH: alert, oriented x4, speech clear, good eye contact, anxious appearing ASAM Physical Assessment Intoxication an d Withdrawal signs Intoxication signs: No signs of intoxication are present during examination. Withdrawal Signs: No withdrawal signs ar e present during examination. Consultation Request Notes Referral Date Referring Provider Referred Provider Not es 05/31/2024 Minerva Peacock anxiety, s ud
--- OUTSIDE RECORDS SUMMARY | 2024-07-04 22:47 | XMS_ITS ---
Author Organization [facility] Address [address] [place] [address] Care Team Providers Care Storage Architect Name Role Phone Richard Fish Primary Care Provider [phone] Allergies Allergen (clinical drug ingredient) Drug/Non Drug Allergy documented on EMR Reaction Allergy Type Onset Date Status azithromycin Zithromax Unknown Drug Allergy Acti ve codeine Codeine Unknown Drug Allergy Active Results Component Value Reference Range Notes 12 Panel Urine Drug Screen Reviewed date:01/29/2024 02:09:28 PM Interpretation: Performing Lab: Notes/Report: THC POS JULISA neg MOP (OPI) neg AMP neg MET neg BAR neg BZO neg MDMA neg MTD neg OXY neg PCP neg BUP POS REASON FOR VISIT MAR f/u Medications Medication SIG (Take, Route, Frequency, Duration) Notes Start Date End Date Status Buprenorphine HCl-Naloxone HCl 8-2 MG 1 film under the tongue and allow to dissolve Sublingual three times a day 01/29/2024 Active predniSONE 20 MG 1 tablet Orally Once a day for 5 days 01/16/2024 Active Albuterol Sulfate (2.5 MG/3ML) 0.083% 3 mL Inhalation EVERY 4 HOURS As needed asthma demetrius please. waiting for neb tx here 01/16/2024 Active Symbicort 80-4.5 MCG/ACT 1 puff Inhalation every 6 hours As needed asthma 01/16/2024 Active Budesonide-Formoterol Fumarate 80-4.5 MCG/ACT 1 puff Inhalation every 6 hours As needed asthma 01/16/2024 Active Ciprofloxacin HCl 250 MG 1 [...] capsule Every 4 hours as needed Active Social History Tobacco Use: Social History [...] Status W/U Status Risk Notes Problem Tobacco use (532726774) Tobacco use disorder (F17.200) Active confirmed Vital Signs Respiratory Rate 16 /min 01/29/2024 Height 64 in 01/29/2024 Heart Rate 103 /min 01/29/2024 Oximetry 98 % 01/29/2024 Blood pressure systolic 94 mm Hg 01/29/20 Blood pressure diastolic 66 mm Hg 024 Weight 114 lb 8 oz lbs 01/29/2024 BMI 19.65 kg/m2 01/29/2024 Encounters Encounter Location Date Provider Diagnosis [address] [address] [place] [address] 01/29/2024 Richard Fish Opioid use disorder F11.99 and Tobacco use disorder F17.200 Assessments Encounter Date Diagnosis (ICD Code) Assessment Notes Treatment Notes Treatment Clinical Notes Section Notes 01/29/2024 Opioid use disorder (ICD-10 - F11.99) 01/29/2024 Tobacco use disorder (ICD-10 - F17.200) 01/29/2024 Other Client agrees to take medication as prescribed. Discussed medication side effects, adverse effects, risks, benefits, as well as interactions. Encouraged non-use of opioids. Has naloxone. Recommended participation in recovery groups/counseling services. May contact office with questions or concerns. Plan Of Treatment Medication Medication Name Sig Start Date Stop Date Notes Buprenorphine HCl-Naloxone H Cl 8-2 MG 1 film under the tongue and allow to dissolve Sublingual three times a day 01/29/2024 Treatment Notes Assessment Notes Other Client agrees to take medication as prescribed. Discussed medication side effects, adverse effects, risks, benefits, as well as interactions. Encouraged non-use of opioids. Has naloxone. Recommended participation in recovery groups/counseling services. May contact office with questions or concerns. Next Appt Details Follow Up: 4 Weeks, Reason: MAR f/u Provider Name:Richard mireles, 07/08/2024 02:20:00 PM, [address], [place], [address], Progress Notes * Soha MARRERO RDOB:[birth year] (33 yo F)Acc No.[id number]:01/29/2024 Patient: Soha LLOYD Provider: Rachel Fish, MSN, CHEMICAL ENGINEER, RAW MATERIAL PLANNER-C :1990 A ge:33 Y S ex:Female Date:01/29/2024 Address:[address] [place], [place] [id number] Subjective: * Chief Complaints: * M AR f/u * HPI: P reventative Health and Wellness follow-up: Action Plans for Clinical Quality Measures: C ervical Cancer Screening: D iscussed need for cervical cancer screening. Patient declined. . C SSRS Interpretation and Follow Up Plan: CSSRS Interpretation and Follow Up Plan. CSSRS Interpretation and Follow Up Plan C SSRS Screen documented using SF Y es M oderate or High risk requires selection of a follow up plan C SSRS No/Low: intervention not needed at this time D epression Screening: PHQ-9 L ittle interest [...] I nterpretation M ild Depression S creening: Wake Suicide Severity Rating Scale (LF) D o you want to initiate with S creener form 1 . Wish to be : Have you wished you were or wished you could go to sleep and not wake up? N o 2 . Suicidal Thoughts: Have you actually had any thoughts of killing yourself? N o 6 . Suicide Behaviour: Have you ever done anything,started to do anything, or prepared to end your life? N o I nterpretation: L ow Risk M AR follow-up: Soha presents for JUN f/u for treatment of OUD, accompanied by significant other. Has been taking buprenorphine as prescribed without adverse effects. Reports dose effective. No cravings or setbacks. Medication Monitoring and Risk Mitigation U p-to-date on [facility] recommended lab testing??Yes P rescribed a buprenorphine [...] system (see notes). C ourt System Involvement? Y es H ousing Stability: S table and safe [...] cigarette smoker (10-19 cigs/day) * Medications: T akinghydrOXYzine Pamoate 25 MG Capsule 1 capsule Every 4 hours as needed traZODone HCl 50 MG Tablet 1 tablet at bedtime as needed Orally at night Buprenorphine HCl-Naloxone HCl 8-2 MG Film 1 film under the tongue and allow to dissolve Sublingual three times a day Naproxen 250 MG Tablet 1 tablet with [...] List reviewed and reconciled with the patientTaking hydrOXYzine Pamoate 25 MG Capsule 1 capsule Every 4 hours as needed Taking traZODone HCl 50 MG Tablet 1 tablet at bedtime as needed Orally at night Taking Buprenorphine HCl-Naloxone HCl 8-2 MG Film 1 film under the tongue and allow to dissolve Sublingual three times a day Taking Naproxen 250 MG Tablet 1 tablet [...] Z ithromaxCodeineno[Allergies Verified] Objective: * Vitals: I nitials:jn, Wt:114 lb 8 oz, Ht:64, BMI:19.65, BP:94/66, HR:103, Oxygen sat %:98, RR:16, LMP:01/2024, Pain scale:2. * Examination: G eneral Examination: GENERAL APPEARANCE: p leasant, in no acute distress. PSYCH: a lert, oriented x4, speech clear, good eye contact, full range of affect/positive mood, judgement and insight good, thought process logical, goal directed. Assessment: * Assessment: 1. T obacco use disorder - F17.200 2 . O pioid use [...] neg * B UP POS 2.?Others? Notes: Client agrees to take medication as prescribed. Discussed medication side effects, adverse effects, risks, benefits, as well as interactions. Encouraged non-use of opioids. Has naloxone. Recommended participation in recovery groups/counseling services. May contact office with questions or concerns.?? * Recommended Wellness and Pre vention Guidelines: * S tatus A lert L ast Done N ext Due A ction Taken N ONCOMPLIANT A lcohol use screening - 1 - N ONCOMPLIANT A sthma symptom assessment - 1 - N ONCOMPLIANT C ervical cancer screening - 1 - N ONCOMPLIANT I nfluenza vaccine (high risk) - 1 - * Procedure Codes: 9 9000 SPECIMEN [id number] BEHAV CHNG SMOKING 3-10 MIN * Preventive Medicine: Counseling: S MOKING: Patient counselled on the dangers of tobacco use and urged to quit. . * Follow Up: 4 Weeks (Reason: JUN f/u) * Care Plan Details* * Sign off status: Completed true * Provider: Rachel Fish, MSN, CHEMICAL ENGINEER, RAW MATERIAL PLANNER-C Date: Generated for Cassie valero/Claire/eTransmitting on: 0 07/04/2024 10:47 PM CDT History [...] Total Score: 7 Interpretation: Mild Depression Screening Wake Suicide Sev erity Rating Scale (LF) Do [...] end your life?: No Interpretation:: Low Risk Do Not Use CSSRS Interpretation and Follow Up Plan CSSRS Interpretation and Follow Up Plan CSSRS Screen documented using SF: Yes Moderate or High risk requir es selection of a follow up plan: CSSRS No/Low: intervention not needed at this time MAR follow-up Medication Monitorin g and Risk [...] for Clinical Quality Measures: Cervical Cancer Screening:: Discussed need for cervical cancer screening. Patient declined. . Examination Category Sub-Category Detail Notes Category Not es General Examination GENERAL APPEARANCE: pleasant, in n o acute distress PSYCH: alert, oriented x4, speech clear, good eye contact, full range of affect/positive mood, judgement and insight good, thought process logical, goal directed
--- OUTSIDE RECORDS SUMMARY | 2024-07-04 22:47 | XMS_ITS | Clinical Summary ---
Author Organization [facility] Address [address] [place] [address] Care Team Providers Care Snailer Name Role Phone None, Provider MD Primary Care Provider Unavaila ble Allergies Active Allergy Reactions Criticality Noted Date Comments Allopurinol Rash High 11/26/2023 Skin rash and mouth sores Azithromycin Unknown 03/23/2023 Diphenhydramine Unknown 12/05/2023 Restless leg Codeine Unknown 03/23/2023 Pecans Unknown 03/23/2023 Pregabalin Unknown 12/05/2023 Restless leg Medications hydrOXYzine (ATARAX) 25 MG tablet Take 1 tablet (25 mg total) by mouth every 8 (eight) hours as needed for Itching (Rash). 03/20/20 23 Active ondansetron (ZOFRAN-ODT) 8 MG disintegrating tablet Take 1 tablet (8 mg total) by mouth every 8 (eight) hours as needed for Nausea. 03/07/20 23 Active promethazine (PHENERGAN) [address] 1 suppository (25 mg total) rectally every 8 (eight) hours as needed for Nausea. 03/22/20 23 Active vitamin C (ASCORBIC ACID) 500 MG tablet Take 1 tablet (500 mg total) by mouth daily. Active multivitamin (THERA) tablet Take 1 tablet by mouth daily. Active ferrous sulfate EC 324 (65 Fe) MG tablet Take 1 tablet (324 mg total) by mouth daily with breakfast. Active vitamin B-12 (CYANOCOBALAMIN) (CYANOCOBALAMIN) 1000 mcg tablet Take 1 tablet (1,000 mcg total) by mouth daily. Active aspirin EC (ECOTRIN) 81 MG tablet Take 1 tablet (81 mg total) by mouth daily. Active naloxone (NARCAN) 4 MG/0.1ML nasal spray 1 spray by Nasal route as needed for Opioid reversal. 2 each 10/09/19 24 Active morphine CR (MS CONTIN) 30 MG tablet Take 1 tablet (30 mg total) by mouth every 12 (twelve) hours. As needed for cancer pain. Active oxyCODONE-acetamin ophen (PERCOCET) 5-325 MG tabletIndications: Acute Pain < 7 Day Supply Take 1 tablet by mouth every 4 (four) hours as needed for Pain. Indications: Acute Pain < 7 Day Supply Short term use, holiday, cancer break through pain 12 tablet 12/05/19 24 Active Social History Tobacco Use Types Packs/Day Years Used Date Smoking Tobacco: Every Day Cigarettes 1 13.2 Started: 2011 Passive Smoke Exposure: Current Tobacco Cessation:Ready to Q uit: Not Asked; Counseling Given: Not Answered Alcohol Use Standard Drinks/Week Comments Yes 4 (1 standard drink = 0.6 oz pure alcohol) patient states she takes shots of fireball to help with pain when she gets desperate . Comments No Sex and Gender Information Value Date Recorded Sex Assigned at Not on file Legal Sex Female 7:16 PM CDT Gender Identity Not on file Sexual Orientation Not on file Last Filed Vital Signs Vital Sign Reading Time Taken Comments Blood Pressure 137/91 12/08/2023 10:46 AM CDT Pulse 88 12/08/2023 10:46 AM CDT Temperature 36.8 C (98.3 F) 12/08/2023 10:46 AM CDT Respiratory Rate 18 12/08/2023 10:46 AM CDT Oxygen Saturation 99% 12/08/2023 10:46 AM CDT Inhaled Oxygen Concentration - - Weight 57.2 kg (126 lb) 12/08/2023 10:46 AM CDT Height 162.6 cm (5' 4 ) 12/08/2023 10:46 AM CDT Body Mass Index 21.63 12/08/2023 10:46 AM CDT Plan of Treatment Health Maintenance Due Date Last Done Comments Cervical Cancer Screening Pa p Smear (Age 30 to 64) Every 3 Years 1992 Annual Physical 02/21/1995 Pneumococcal Vaccine: Pediatrics (0 to 5 Years) and At-Risk Patients (6 to 64 Years) (1 of 2 - PCV) 02/21/1998 Hepatitis C 02/21/2010 Hepatitis B Vaccines (1 of 3 - 19+ 3-dose series) 02/21/2011 COVID-19 Vaccine (3 - Pfizer risk series) 12/25/2020 11/27/2020, 11/06/2020 Cervical Cancer Screening Pa p with HPV Testing (Age 30 to 64) Every 5 Years 02/21/2022 Cervical Cancer Screening wi th HPV 02/21/2022 DTaP, Tdap and Td Vaccines ( 3 - Td or Tdap) 02/07/2032 02/06/2022, 11/05/2020 HPV Vaccines Aged Out No longer eligi ble based on patient's age to complete this topic Meningococcal B Vaccine Aged Out No l onger eligible based on patient's age to complete this topic Meningococcal Vaccine Aged Out No gracy vasile eligible based on patient's age to complete this topic RSV Immunizations Under 20 Months Aged Out No longer eligible b ased on patient's age to complete this topic Insurance Advance Directives Documents on File Type Date Recorded Patient Metal Can Inspector Expl anation Legal Documents 05/21/2023 3:56 PM Care Teams Snailer Relationship Specialty Start Date End Date None, Provider, MD PCP - General UNKNOWN PHYSICIAN SPECIALTY 11/19/22
[2024-07-04 22:48] VITALS: BP 143/88; PULSE 89; RESP 18; TEMP 36.2; O2SAT 99
--- OUTSIDE RECORDS SUMMARY | 2024-07-05 01:30 | XMS_ITS | CONTINUITY OF CARE DOCUMENT ---
Author Name christopher white Address Unknown Organization [facility] Address [address] [place] [address] [address] [place] [address] Phone [phone] Care Team Providers Care Pharmacy Stock Clerk Name Role Phone Randy Armstrong MD Unavailable [phone] Randy Armstrong MD Unavailable INSURANCE PROVIDERS Payer name Policy type / Coverage type [employer]us red republican [place] MED[place] Medicaid [id number]
--- OUTSIDE RECORDS SUMMARY | 2024-07-05 01:30 | XMS_ITS ---
Author Organization [facility] Address [address] [place] [address] Phone Care Team Providers Care Digital Pre Press Operator Name Role Phone Gabriel Salmeron MD Unavailable [phone] Brooks Sosa MD Unavailable Provider, None Primary [...] current use Anxiety 05/07/2023 Under care of half-way service 05/07/2023 Overview (05/07/2023): Two previous stays at half-way Child living with her parents Current Treatment [...] 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 Hx of half-way time
--- OUTSIDE RECORDS SUMMARY | 2024-07-05 01:30 | XMS_ITS | Encounter Summary ---
Author Organization [facility] Address [address] [place] [address] Care Team Providers Care Manager Statistics Name Role Phone Unavailable Primary Care Provider Unavailabl e Encounter Details Date Type Department Care Team (Late st Contact Info) Description 12/19/2022 Lab Requisition [facility] - Pathology Lab [address] [place] [address] Ishan Escobedo MD [address] [address] Illness, unspecified Social History Tobacco [...] CDT) Case Report Surgical Pathology Report Case: [id number] Authorizing Provider: Ishan Escobedo MD Collected: 12/18/2022 [...] CD10 co-expression. Axillary lymph node, flow cytometry ([id number]): - Keizer light chain restricted CD10+ B-cell population detected (~99% of overall events) Also received from [facility] is a peripheral smear showing circulating follicular lymphoma cells with occasional nuclear clefts. The peripheral blood is involved by follicular lymphoma. 12/19/2022 3:33 PM CDT [facility] Clinical History Suspect lymphoma. 12/19/2022 3:33 PM CDT [facility] Materials Received Received are 4 slide(s) and 1 block labeled [id number] along with a copy of the outside pathology report. The materials originate from [place] [address]. All original materials are returned to the referring institution, along with a copy of our final report. 12/19/2022 3:33 PM T [facility] Pathologist Location at [facility] 12/19/2022 3:33 PM CDT [facility] Disclaimer The performance characteristics of all immunohistochemical and indirect immunofluorescence stains (if any) cited in this report were determined by the Histopathology Laboratory of [facility]. Some of these tests were developed by [...] LAB Embedded Images 12/19/2022 3:33 PM CDT [facility] Pathology/Cytolo gy BIOPSY OF LYMPH NODE / Unknown 12/18/2022 9:00 AM CDT 12/19/2022 1:25 PM CDT Ishan Escobedo MD LAB - PATHOLOGY/CYTO LOGY ORDERABLES [facility] [address] [place] [address]. [place] [address], [facility] [phone] documented in this encounter Visit Diagnoses Diagnosis Illness, unspecified documented in this encounter
--- OUTSIDE RECORDS SUMMARY | 2024-07-05 01:30 | XMS_ITS | Clinical Summary ---
Author Organization [facility] Address [address] [place] [address] Care Team Providers Care Wood Heel Cementer Name Role Phone Unavailable Primary Care Provider Unavailabl e Source Comments [facility] [employer],non-owned Affiliates and Associated Physician Practices is amultiple site organization consisting of ambulatory clinics and hospital sitesin [place], [place], [place] and [place]. This disclosure is being madepursuant to the Care Everywhere program and may not contain all information available regarding this patient. Last updated 17.[facility] [employer] Social History Tobacco Use Types Packs/Day Years [...]
--- OUTSIDE RECORDS SUMMARY | 2024-07-05 01:30 | XMS_ITS | Patient Health Record ---
Author Organization [facility] Address [address] [place] [address] Care Team Providers Care Neuropsychology Service Director Name Role Phone NavyanilaRichard Primary Care Provider Satya Fernandez Unavailable [phone] Mandi Love Unavailable [phone] Evie Epps Unavailable [phone] Minerva Peacock Unavailable [phone] Allergies Allergen (clinical drug ingredient) Drug/Non Drug [...] PERINEUM Diagnosis 1 Abscess (L02.91) Referral Organization [facility] Referring Provider First Name Satya Referring Provider Last Name Rebecca Referring Provider Speciality Internal M edicine Referred Provider Specialty Surgery General Notes GUERO Song Valeri e A 02/13/2024 09:35:39 AM > Referral to [facility] Colon and Rectal Surgery. Letter to pt. Clinical Notes [facility] Colon and Rectal Surgery, [address] [facility] [id number], Phone#[phone], Referral Priority Routine Reason IMPACTED MOLAR AND S EVERE CARIES RIGHT LOWER JAW THAT DENTIST DECLINED TO TREAT Diagnosis 1 Dental caries (K02.9 ) Referral Organization [facility] Referring Provider First Name Satya Referring Provider Last Name Rebecca Referring Provider Speciality Internal M edicine Referred Provider Specialty Dental Gener al Practice General Notes GUERO Song, Brooke Phillips 02/13/2024 09:57:12 AM > Referral to [facility] Dentistry. Letter to pt. Clinical Notes [facility] Adult Dentist, [address] [place] [address], , Referral Priority Routine Reason anxiety, shanna Diagnosis 1 Opioid use disorder (F11.99) Referral Organization [facility] Referring Provider First Name Minerva Referring Provider [...] phone, visiting friends or family, going to catholic or club meetings) More than 5 times a week How stressed are you? Stress is when someone feels tense, nervous, anxious, or can\t sleep at night because their mind is troubled A little bit In the past year have you sp ent more than 2 nights in a row in a half-way, care home, halfway center, or juvenile correctional facility? 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 Problem Mental disorder caused by drug (408342800) Opioid use disorder (F11.99) Active confirmed Vital Signs Heart Rate 98 /min 05/27/2024 Temperature 98.8 degrees Fahrenheit 12/19/2023 Respiratory Rate 16 /min 05/27/2024 Blood pressure diastolic 58 mm Hg 05/13/2024 Oximetry 98 % 05/27/2024 Height 62 in 05/27/2024 Blood pressure systolic 102 mm Hg 05/13/2024 Weight 108.6 lbs 05/27/2024 BMI 19.86 kg/m2 05/27/2024 Encounters Encounter Location Date Provider Diagnosis [address] [place] [address] 12/19/2023 Jenia Heavenila Opioid use disorder F11.99 and Nicotine dependence, unspecified, uncomplicated F17.200 [address] [place] [address] 01/01/2024 Jenia Heavens Opioid use disorder F11.99 and Nicotine dependence, unspecified, uncomplicated F17.200 [address] [place] [address] 01/02/2024 Satya Feranndez Abscess L02.91 ; Dental caries K02.9 ; Lymphoma of lymph nodes of multiple regions, unspecified lymphoma type C85.98 ; Opioid use disorder F11.99 and Nicotine dependence, unspecified, uncomplicated F17.200 [address] [place] [address] 01/16/2024 Satya Fernandez Asthma exacerbation J45.901 ; Mild intermittent asthma without complication J45.20 and Nicotine dependence, unspecified, uncomplicated F17.200 [address] [place] [address] 01/29/2024 Jenia Heavenila Opioid use disorder F11.99 and Tobacco use disorder F17.[address] [place] [address] 05/13/2024 Minerva Sextonrichard Patient underweight R63.6 ; Opioid use disorder F11.99 ; Non-tobacco user Z78.9 and Nutritional counseling Z71.3 [address] [place] [address] 05/27/2024 Jenia Heavens Opioid use disorder F11.99 [...] self-administe r their own oral medications per [facility] Protocol. Plan Of Treatment Next Appt Details Provider Name:Richard mireles, 07/08/2024 02:20:00 PM, [address], [place], [address], Insurance Providers Payer Name Payer Address Payer Phone Subscriber Number Group Number Insured Name Patient Relationship to Insured Coverage Start Date Coverage End Date Progression [facility] [address] [place] [phone] [id number] Soha Marrero Self - patient is the insured 2 Medical (General) History Medical History History ICD Code Bipolar 1 Disorder Alcohol Use Disorder Surgical History Surgery Date(Month/Year) Ectopic Open Chest Surgery Chemo Port 2022 Hospitalization History Reason Date(Month/Year) [place] x2
--- OUTSIDE RECORDS SUMMARY | 2024-07-05 01:30 | XMS_ITS | Clinical Summary ---
[facility] Address [address] [place] [address] Care Team Providers Care Department Store Manager Name Role Phone Unavailable Primary Care Provider [...] Pain, Mild. Active naloxone (NARCAN) 4 mg/spray [place], Non-Aerosol EMERGENCY USE ONLY: Administer 1 spray [...] Comments Blood Pressure 109/66 04/17/2023 8:40 AM CHILD DEVELOPMENT DIRECTOR Pulse 111 04/17/2023 8:40 AM CHILD DEVELOPMENT DIRECTOR Temperature 36.6 C (97.9 F) 04/17/2023 8:40 AM CHILD DEVELOPMENT DIRECTOR Respiratory Rate 10 04/17/2023 8:40 AM CHILD DEVELOPMENT DIRECTOR Oxygen Saturation 92% 03/27/2023 11:06 AM CHILD DEVELOPMENT DIRECTOR Inhaled Oxygen Concentration - - Weight 51.3 kg (113 lb) 04/17/2023 8:40 AM CHILD DEVELOPMENT DIRECTOR Height 162.6 cm (5' 4 ) 03/24/2023 6:27 PM CHILD DEVELOPMENT DIRECTOR Body Mass Index 19.4 03/24/2023 6:27 PM CHILD DEVELOPMENT DIRECTOR Plan of Treatment Health Maintenance Due Date [...] Advance Directives For more information, please contact: [phone] * Full Code (Latest Code Status on File) Date Activated Date Inactivated Comments 03/25/2023 1:09 AM 03/26/2023 3:29 PM
--- OUTSIDE RECORDS SUMMARY | 2024-07-05 01:30 | XMS_ITS | Clinical Summary ---
Author Organization [facility] Address [address] [place] [address] Care Team Providers Care Planer Hand Name Role Phone None, Provider MD Primary [...] Documents on File Type Date Recorded Patient Thermometer Production Worker Expl anation Legal Documents 05/21/2023 3:56 PM Care Teams Planer Hand Relationship Specialty Start Date End Date None, Provider, MD PCP - General UNKNOWN PHYSICIAN SPECIALTY 11/19/22
--- OUTSIDE RECORDS SUMMARY | 2024-07-05 01:30 | XMS_ITS | Referral Summary ---
Author Organization [facility] [address] [facility] Address [address] [place] [address] Care Team Providers Care Screen Tender Helper Name Role Phone Richard Fish NP Primary [...] Plan of Treatment Not on file Insurance [facility] Care Teams Screen Tender Helper Relationship Specialty Start Date End Date Richard Fish NP [address] [facility] [place] [address] PCP - General Nurse Practitioner 02/13/24
--- OUTSIDE RECORDS SUMMARY | 2024-07-05 01:30 | XMS_ITS ---
Author Organization [facility] Address [address] [place] [address] Phone Care Team Providers Care Stage Electrician Name Role Phone Gabriel Salmeron MD Unavailable [phone] Brooks Sosa MD Unavailable [phone] Provider, None Primary Care Provider UnavailKervin Rubi MD Unavailable [facility] Status:Enrolled (Active) Start date:05/05/2024 Enrollment date:05/05/2024 Related social drivers of health:Social Connections, Tobacco Use, Depression, Stress, Physical Activity, Utilities Continued Care and Services Coordination
--- OUTSIDE RECORDS SUMMARY | 2024-07-05 01:30 | XMS_ITS | Clinical Summary ---
Author Organization [facility] [address] [facility] Address [address] [place] [address] Care Team Providers Care Band Saw Operator Name Role Phone Richard Fish NP Primary [...] to complete this topic Insurance Care Teams Band Saw Operator Relationship Specialty Start Date End Date Richard Fish NP [address] [place] [address] [place] [address] PCP - General Nurse Practitioner 02/13/24
--- OUTSIDE RECORDS SUMMARY | 2024-07-05 01:30 | XMS_ITS ---
Author Organization [facility] Address [address] [place] [address] Care Team Providers Care Staying 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 Name Role Phone Richard Fish Primary Care Provider [phone] Allergies Allergen (clinical drug ingredient) Drug/Non [...] W/U Status Risk Notes Problem Tobacco use (739084388) Tobacco use disorder (F17.200) Active confirmed Vital Signs Respiratory Rate 16 /min 01/29/2024 Height 64 in 01/29/2024 Heart Rate 103 /min 01/29/2024 Oximetry 98 % 01/29/2024 Blood pressure systolic 94 mm Hg 01/29/20 Blood pressure diastolic 66 mm Hg 024 Weight 114 lb 8 oz lbs 01/29/2024 BMI 19.65 kg/m2 01/29/2024 Encounters Encounter Location Date Provider Diagnosis [address] [place] [address] 01/29/2024 Richard Fish Opioid use disorder F11.99 [...] f/u Provider Name:Richard mireles, 07/08/2024 02:20:00 PM, [address], [place], [address], Progress Notes * Soha MARRERO RDOB:[birth year] (33 yo F)Acc No.[id number]:01/29/2024 Patient: Soha LLOYD Provider: Rachel Fish, MSN, HEALTH AND SAFETY COORDINATOR, PETROLOGY TEACHER-C :1990 A ge:33 Y S ex:Female Date:01/29/2024 Address:[address] [place], [place] [address] Subjective: * Chief Complaints: * M AR [...] I nterpretation M ild Depression S creening: [place] Suicide Severity Rating Scale (LF) D o [...] and Risk Mitigation U p-to-date on [facility] recommended lab testing??Yes P rescribed a buprenorphine [...] - * Procedure Codes: 9 9000 SPECIMEN [id number] BEHAV CHNG SMOKING 3-10 MIN * Preventive Medicine: Counseling: S MOKING: Patient counselled on the dangers of tobacco use and urged to quit. . * Follow Up: 4 Weeks (Reason: JUN f/u) * Care Plan Details* * Sign off status: Completed true * Provider: Rachel Fish, MSN, HEALTH AND SAFETY COORDINATOR, PETROLOGY TEACHER-C Date: Generated for Cassie valero/Claire/eTransmitting on: 0 07/05/2024 01:30 AM CDT History and Physical Notes * HPI [...] Total Score: 7 Interpretation: Mild Depression Screening [place] Suicide Sev erity Rating Scale (LF) Do [...]
--- OUTSIDE RECORDS SUMMARY | 2024-07-05 01:30 | XMS_ITS | Clinical Summary ---
Author Organization [facility] Address [address] [place] [address] Phone Care Team Providers Care Plate Corrector Name Role Phone Gabriel Salmeron MD Unavailable [phone] Brooks Sosa MD Unavailable [phone] Provider, None Primary Care Provider UnavailKervin Rubi [...] current use Anxiety 05/07/2023 Under care of jail service 05/07/2023 Overview (05/07/2023): Two previous stays at jail Child living with her parents Resolved Problems Problem Noted Date Diagnosed Date Resolved Date LRTI (lower respiratory tract infection) 09/09/2023 11/26/2023 Lymphoma 05/07/2023 10/29/2023 Overview (05/21/2023): Resistant to care No show ONC Refusing hospice 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/21/2023): Current cannabis; 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 Hx of jail time Encounters Date Type Department Care Team Description 06/17/2024 11:40 AM CDT - 06/17/2024 12:40 PM CDT [facility] [address] [place] [address] Kervin Jiang MD REMOVAL OF PORT, LEFT SIDE 06/17/2024 11:39 AM CDT [facility]est[facility] [address] [place] [address] Roland Martinez MD [place], Kevin L, APRN, PINSETTER MECHANIC AUTOMATIC 06/17/2024 8:59 AM CDT - 06/17/2024 1:15 PM CDT [facility] Pre[facility]Pac[facility] [address] [place] [address] Kervin Jiang MD Discharge Disposition: Discharged to home or Selfcare 06/17/2024 [facility] [address] [address] Kervin Jiang MD Medication Management 06/15/2024 Travel 06/11/2024 10:00 AM MOLD RUNNER [facility] [address] [address] Gabriel Salmeron MD Sanz, Alejandro Federico, MD 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); Encounter for removal of tunneled central venous catheter (CVC) with port Discharge Disposition: Discharged to home or Selfcare 06/10/2024 Travel 05/28/2024 11:00 AM MOLD RUNNER [facility] [address] [place] [address] Gabriel Salmeron MD 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 [address] [place] [address] Radha Sales APRN, ARTIST WOODBLOCK Referral from Last 3 Months Immunizations Immunization [...] = 0.6 oz pur e alcohol) occasional [facility] Utilities Answer Date Recorded In the past 12 months has [employer], gas, oil, or water Neema threatened to shut off services in your home? Yes 05/07/2023 Social Connection and Isolation Panel [NHANES] A nswer Date Recorded In a typical week, how many times do you talk on the phone with family, friends, or neighbors? Once a week 05/07/2023 How often do you get together with friends or re latives? Once a week 05/07/2023 How often do you attend mandaeism or mormon serv ices? Never 05/07/2023 Do you belong to any clubs o r organizations such as mandaeism groups, unions, fraternal or athletic groups, or [...] Total Score - Questions 1-9 9 06/06 [facility] of Occupat [facility] - Occupational Stress Questionnaire Answer Date Recorded [...] place to sleep or slept in a long-term (including now)? No 05/07/2023 Sexually Active Control Partners Comments Yes Male Comments Unknown Sex and Gender Information Value Date Recorded Sex Assigned at Female 05/21/2023 11:44 AM MOLD RUNNER Legal Sex Female 5:17 PM CDT Gender Identity Female 05/21/2023 11:44 AM MOLD RUNNER Sexual Orientation Not on file Last Filed [...] Ready to change Department associated with goal: [facility] Steps to achieve [...] PATHOLOGY SURGICAL Routine 06/17/2024 11:55 AM CDT MA RMVL [facility] VAD W/SUBQ PORT/FLATCAR WHACKER CTR/PRPH INSJ 06/17/2024 11:17 AM CDT ENCOUNTER FOR REMOVAL OF TUNNELED CENTRAL VENOUS CATHETER Special Needs Allergy: Allopurinol, Azithromycin, Codeine, Pecan Extract, Benadryl Hx: Drug & Alcohol abuse 5 3.5 119# POCT URINE HCG () Routine 06/17/2024 9:38 AM CDT from Last 3 Months Results * Pathology Surgical (06/17/2024 11:55 AM CDT) Case Report Surgical Pathology Report Case: [id number] Authorizing Provider: Kervin Jiang, Collected: 06/17/2024 11:55 AM Ordering Location: [facility] Received: 06/18/2024 09:02 AM [facility] Main OR Pathologist: Ishan Ecsobedo MD Specimen: Foreign Body, PORT FROM LEFT CHEST 06/18/2024 2:46 PM CDT [facility] FINAL DIAGNOSIS Foreign body, port from left chest, removal: - As described grossly. 06/18/2024 2:46 PM CDT [facility] at 1446 CDT Pre-Operative Diagnosis ENCOUNTER FOR REMOVAL OF TUNNELED CENTRAL VENOUS CATHETER 06/18/2024 2:46 PM CDT [facility] Gross Description A. PORT FROM [...] only. [place]/sb 06/18/2024 2:46 PM CDT [facility] Other FOREIGN BODY SUBMITTED SPECIMEN / Unknown 06/17/2024 11:55 AM CDT 06/18/2024 9:02 AM CDT Kervin Jiang MD PATHOLOGY/CYTOLOGY OR DERABLES Final Result [facility] [address] [place] [address] * POCT Urine HCG () (06/17/2024 9:38 AM CDT) POC URINE Negative POC URINE CONTROL Hand Ii Blocker Pass Urine 06/17/2024 9:38 AM CDT Kervin Jiang MD POINT OF CARE TESTING (MANUAL) Final Result from Last 3 Months Insurance MEDICAID [place] [facility] Care Teams Plate Corrector Relationship Specialty Start Date End Date Provider, None [place] PCP - General 06/17/24 Gabriel Salmeron MD [address] [place] [address] Consulting Physician Medical Oncology 05/23/23 Brooks Sosa MD [address] [place] [phone] Consulting Physician Neurology 01/22/24 Kervin Jiang MD [address] [phone] Consulting Physician General Surgery 06/11/24
--- OUTSIDE RECORDS SUMMARY | 2024-07-05 01:30 | XMS_ITS | Encounter Summary ---
Author Organization [facility] Address [address] [place] [address] Care Team Providers Care Ceramics Teacher Name Role Phone Unavailable Primary Care Provider Unavailabl e Encounter Details Date Type Department Care Team (Late st Contact Info) Description 12/18/2022 Lab Requisition [facility] - Pathology Lab [address] [place] [address] Ishan Escobedo MD [address] [facility] [address] [place] [address] Generalized enlarged lymph nodes Social History [...] AM CDT) Case Report Flow Cytometry Case: [id number] Authorizing Provider: Ishan Escobedo MD Collected: 12/18/2022 09:00 AM Ordering Location: [facility] Care Pathology Lab Received: 12/18/2022 03:11 PM Pathologist: Giovanni Chow MD Specimen: Axillary Lymph Node, RIGHT 12/18/2022 5:15 PM CDT [facility] Final Diagnosis Axillary lymph node, flow cytometry: - [place] light chain restricted CD10+ B-cell population detected (~99% of overall events) 12/18/2022 5:15 PM CDT [facility] Flow Cytometry Interpretation Viability: 87%. B-cells: monoclonal, kappa-restricted, expressing CD19, CD20, and CD10. T-cells: not increased, no immunophenotypic aberrancy. A cytospin prepared from the flow cytometry specimen has been reviewed for quality control supervisor purposes. 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 Histologic slides are pending for final subclassification. 12/18/2022 5:15 PM [facility] Flow Cytometry Results Differential Result Comment Flow Cell Count /uL 9,000 Total Viability % 87.0 Lymphocytes % 99 Dim CD45 Region % 0 Monocytes % 0 Granulocytes % 1 12/18/2022 5:15 PM [facility] Reason for test Generalized enlarged lymph nodes 785.6 12/18/2022 5:15 PM [facility] Client Specimen ID # [id number] 12/18/2022 5:15 PM [facility] Number of markers 16 were performed. A-2 Flow CD3 A-4 Flow CD10 A-6 Flow CD20 A-7 Flow CD23 A-12 Flow CD2 A-13 Flow CD4 A-16 Flow CD1a A-3 Flow CD5 A-5 Flow CD19 A-8 Flow CD34 A-9 Flow CD45 A-14 Flow CD7 A-15 Flow CD8 A-17 Flow CD30 A-10 [place]+CD19+ A-11 Lambda+CD19+ 12/18/2022 5:15 PM [facility] Pathologist Location at [facility] 12/18/2022 5:15 PM [facility] Disclaimer Test performed at [facility], [address] [place] [address], [address]. *The established laboratory minimum viability is 70%. [...] high complexity clinical testing. 12/18/2022 5:15 PM [facility] Embedded Images 3 5:15 PM CDT [facility] Pathology/Cytolo gy AXILLARY LYMPH NODE STRUCTURE / Unknown 12/18/2022 9:00 AM CDT 12/18/2022 3:11 PM CDT Ishan Escobedo MD LAB - PATHOLOGY/CYTO LOGY ORDERABLES Performing Organization Address City/State/[facility] Co ms Phone Number [facility] [address] [phone] documented in this encounter Visit Diagnoses Diagnosis Generalized enlarged lymph nodes Enlargement of lymph nodes documented in this encounter
--- OUTSIDE RECORDS SUMMARY | 2024-07-05 01:31 | XMS_ITS ---
Author Organization [facility] Address [address] [place] [address] Care Team Providers Care Lodge Sales Associate Name Role Phone Richard Fish Primary Care Provider [phone] Minerva Peacock Unavailable [phone] Allergies Allergen (clinical drug ingredient) Drug/Non Drug [...] 1 Opioid use disorder (F11.99) Referral Organization [facility] Referring Provider First Name Minerva Referring Provider [...] 05/13/2024 Encounters Encounter Location Date Provider Diagnosis [address] [place] [address] 05/13/2024 Minerva Peacock Patient underweight R63.6 ; [...] f/u Provider Name:Richard mireles, 07/08/2024 02:20:00 PM, [address], [place], [address], Progress Notes * Soha MARRERO RDOB:[birth year] (34 yo F)Acc No.[id number]:05/13/2024 Patient: Soha LLOYD Provider: Rachel Peacock, MSN, LADLE LINER, PMHNP-BC :1990 A ge:34 Y S ex:Female Date:05/13/2024 Address:[address] [place] [address], [place], [place] Pcp:Richard Fish Check In:01:01 PM SENIOR SOLUTIONS WORKFLOW CONSULTANT Subjective: * Chief Complaints: * W alk-In [...] Monitoring and Risk Mitigation U p-to-date on [facility] recommended lab testing? Y es, P rescribed [...] Plan required at this time.. S creening: [place] Suicide Severity Rating Scale (LF) 1 . [...] LMP: 05/2024, Pain scale:0. * Examination: [facility] Physical Assessment: Intoxication and Withdrawal signs I [...] pos * Procedure Codes: 9 9000 SPECIMEN [id number] SELF-MGMT EDUC & TRAIN, 1 [id number] TOBACCO NON-USER * Preventive Medicine: Counseling: C are goal follow-up plan: B [place] management provided Y es, B elow Normal BMI Follow-up L ifestyle education regarding diet. * Follow Up: 1 Week (Reason: JUN f/u) * * OR SOLUTIONS WORKFLOW CONSULTANT Sign off status: Completed true * Provider: Rachel Peacock, MSN, LADLE LINER, PMHNP-BC Date: 0 05/13/2024 Generated for Printing/Faxing/eTransmitting on: 0 07/05/2024 01:30 AM CDT History [...] Total Score: 4 Interpretation: Minimal Depression Screening [place] Suicide Sev erity Rating Scale (LF) 1. [...] Monitorin g and Risk Mitigation Up-to-date on [facility] recommended lab testing?: Yes Prescribed a buprenorphine [...]
--- OUTSIDE RECORDS SUMMARY | 2024-07-05 01:31 | XMS_ITS ---
Author Organization [facility] Address [address] [place] [address] Care Team Providers Care Protective Officer Name Role Phone Richard Fish Primary Care [...] W/U Status Risk Notes Problem Tobacco user ([id number]) Nicotine dependence, unspecified, uncomplicated (F17.200) Active confirmed Vital Signs Weight 108.6 lbs 05/27/2024 Height 62 in 05/27/2024 BMI 19.86 kg/m2 05/27/2024 Heart Rate 98 /min 05/27/2024 Oximetry 98 % 05/27/2024 Respiratory Rate 16 /min 05/27/2024 Encounters Encounter Location Date Provider Diagnosis [address] [facility] [place] [address] 05/27/2024 Richard Fish Opioid use disorder F11.99 [...] self-administe r their own oral medications per [facility] Protocol. Plan Of Treatment Medication Medication Name [...] f/u Provider Name:Richard mireles, 07/08/2024 02:20:00 PM, [address], [place], [address], Progress Notes * Soha MARRERO RDOB:[birth year] (34 yo F)Acc No.[id number]:05/27/2024 Patient: Soha LLOYD Provider: Rachel Fish, MSN, SURGICAL SERVICES COORDINATOR, ONLINE MARKETING ANALYST-C :1990 A ge:34 Y S ex:Female Date:05/27/2024 Address:[address] [place] [address], [id number] Check In:02:11 PM BRANNER MACHINE TENDER Subjective: * Chief Complaints: * M AT [...] I nterpretation M ild Depression S creening: [place] Suicide Severity Rating Scale (LF) D o [...] self- administer their own oral medications per [facility] Protocol.?? * Recommended Wellness and Pre vention Guidelines: * S tatus A lert L ast Done N ext Due A ction Taken N ONCOMPLIANT C ervical cancer screening - 0 05/27/2024 - * Procedure Codes: 9 9000 SPECIMEN [id number] BEHAV CHNG SMOKING 3-10 MIN * Preventive Medicine: Counseling: S MOKING: Patient counselled on the dangers of tobacco use and urged to quit. . * Follow Up: 4 Weeks (Reason: MAR f/u) * Care Plan Details* * NER MACHINE TENDER Sign off status: Completed true * Provider: Rachel Fish, MSN, SURGICAL SERVICES COORDINATOR, ONLINE MARKETING ANALYST-C Date: 0 05/27/2024 Generated for Arnoldi anjum/Claire/eTransmitting on: 0 07/05/2024 01:30 AM CDT History [...] Total Score: 7 Interpretation: Mild Depression Screening [place] Suicide Sev erity Rating Scale (LF) Do [...]
--- NOTE | 2024-07-05 01:55 | ED_ITS ---
HPI - General Adult General Chief complaint: Unspecified Stated complaint: Body pain Time Seen by Provider: 07/05/24 01:23 History of Present Illness HPI narrative: This is a 34-year-old female with history of opiate use disorder presenting for title total body pain nausea vomiting. Patient says she has been trying to wean herself off her Suboxone. She only took 1 pill today. However now she feels like she is having symptoms of withdrawal. She is here requesting narcotic pain medication. She is denying fevers chills chest pain difficulty breathing or urinary symptoms. Related Data Home Medications ?Medication ?Instructions ?Recorded ?Confirmed ?Last Taken ?Type hydroxyzine HCl 25 mg tablet 25 mg PO TID 03/21/23 03/27/23 Unknown History methylprednisolone 4 mg tablets in mg 03/21/23 03/21/23 Unknown History a dose pack hydroxyzine HCl 25 mg tablet mg 09/30/23 Unknown History ibuprofen 600 mg tablet mg 09/30/23 Unknown History megestrol 400 mg/10 mL (40 mg/mL) mg 09/30/23 Unknown History oral suspension morphine 30 mg immediate release mg 09/30/23 Unknown History tablet ondansetron 4 mg disintegrating mg 09/30/23 Unknown History tablet pregabalin 50 mg capsule mg 09/30/23 Unknown History promethazine 25 mg rectal mg RECTAL 09/30/23 Unknown History suppository (Promethegan) valacyclovir 500 mg tablet mg 09/30/23 Unknown History Allergies Allergy/AdvReac Type Severity Reaction Status Date / Time azithromycin AdvReac Nausea Verified 03/13/24 21:53 codeine AdvReac Vomiting Verified 03/13/24 21:53 diphenhydramine (From AdvReac Jittery Verified 03/13/24 21:53 Benadryl) pecan nut AdvReac Nausea and Verified 03/13/24 21:53 Vomiting pregabalin AdvReac Unknown Verified 03/13/24 21:53 PMFSH Past Medical History Medical History Drug-induced psychotic disorder Atypical bipolar disorder Anxiety MRSA infection buttock and leg during last lengthy incarceration (2020) Ectopic Methamphetamine abuse, episodic History of heroin use Surgical History Surgical History History of breast surgery 2018 or 2019, due to butane search marketing specialist requiring I/D and subsequent wound care. L Side. History of salpingo-oophorectomy Social History Social History Social History: Currently living with boyfriend. Full Code. Surrogate decision maker - Isaiah Beverly (step-dad), if unavailable then Marlene Carbone (mom). Smoking packs per day: 1 Smoking cigarettes per day: 20.0 Years smoked: 11 Smoking pack-years: 11.00 Smoking status: Current every day smoker Tobacco type: cigarettes Alcohol intake: current Drinks per week: 1 Alcohol use details: social Substance use: former Substance use type: methamphetamine Other substance usage details: QUIT USING EARLY DEC 2022 D/T DIAGNOSIS & SURGERY Last use: last use of heroin-September 2014 Lack of Transportation: No Lack of Food: Never True Current Housing: I Have Housing Concerned About Future Housing: No Difficulty Paying Gas/Electric Bills: No Difficulty Paying for Meds: No Currently Unemployed: No Education: High School Diploma/GED Difficulty w/ Childcare or Family Care: No Living arrangements: with friend(s) Additional living arrangements comments: boyfriend Spiritual care concerns: No Exam Narrative: APPEARANCE: No apparent distress. Head: atraumatic. EYES: EOMI, NOSE: Atraumatic NECK: Trachea midline RESPIRATORY: No increased rate of breathing CTAB CARDIOVASCULAR: RRR, ABDOMINAL: Non-distended soft nontender MUSCULOSKELETAl: No obvious deformities NEURO: Alert. Moving 4/4 extremities SKIN:: Warm, dry. Normal color PSYCHIATRIC: Normal affect Course Vital Signs Vital signs: Vital Signs Temperature 97.2 F L 07/04/24 22:48 Pulse Rate 89 07/04/24 22:48 Respiratory Rate 18 07/04/24 22:48 Blood Pressure 143/88 H 07/04/24 22:48 Pulse Oximetry 99 07/04/24 22:48 Oxygen Delivery Room Air 07/04/24 22:48 Temperature 97.2 F L 07/04/24 22:48 Pulse Rate 89 07/04/24 22:48 Respiratory Rate 18 07/04/24 22:48 Blood Pressure 143/88 H 07/04/24 22:48 Pulse Oximetry 99 07/04/24 22:48 Oxygen Delivery Room Air 07/04/24 22:48 Medical Decision Making MDM Narrative Medical decision making narrative: -Course: 34-year-old female with history of opiate use disorder presenting for total body pain. Patient is requesting narcotic pain medication. When she informed that she would not receive narcotics but I would be happy to treat her with Tylenol Toradol and IV fluids she became irate. Patient patient was very insistent that I give her narcotics because she was coming here for help. I did not think that was in her best interest. The patient then tried to leave the emergency department with her IV in place. She was caught by nursing staff the IV was removed and then she left without completing treatment. -DDX includes but is not limited to: Drug-seeking behavior, opiate use disorder, opiate withdrawal Vital Signs Vital Signs: Vital Signs Temperature 97.2 F L 07/04/24 22:48 Pulse Rate 89 07/04/24 22:48 Respiratory Rate 18 07/04/24 22:48 Blood Pressure 143/88 H 07/04/24 22:48 Pulse Oximetry 99 07/04/24 22:48 Oxygen Delivery Room Air 07/04/24 22:48 Temperature 97.2 F L 07/04/24 22:48 Pulse Rate 89 07/04/24 22:48 Respiratory Rate 18 07/04/24 22:48 Blood Pressure 143/88 H 07/04/24 22:48 Pulse Oximetry 99 07/04/24 22:48 Oxygen Delivery Room Air 07/04/24 22:48 Discharge Plan Discharge Clinical Impression: Drug-seeking behavior Patient Disposition: Elopement After Seen by Prov Condition: Stable Patient Language: Upper Sorbian Prescriptions: No Action oxycodone-acetaminophen [Percocet] 10-325 mg tablet 1 tablet PO Q4H PRN (Reason: pain) Qty: 5 0RF ondansetron 4 mg tablet,disintegrating 4 mg PO Q6H PRN (Reason: nausea and vomiting) Qty: 20 0RF hydroxyzine HCl 25 mg tablet 25 mg PO TID methylprednisolone 4 mg tablets,dose pack promethazine 25 mg suppository 25 mg RECTAL Q6H PRN (Reason: nausea and vomiting) Qty: 12 0RF ondansetron 4 mg tablet,disintegrating 4 mg PO Q8H PRN (Reason: nausea and vomiting) Qty: 30 0RF oxycodone-acetaminophen [Percocet] 10-325 mg tablet 1 tablet PO Q6H PRN (Reason: pain) Qty: 20 0RF ondansetron 4 mg tablet,disintegrating 4 mg PO Q8H PRN (Reason: nausea and vomiting) Qty: 10 0RF amoxicillin-pot clavulanate 875-125 mg tablet 1 tablet PO Q12H 7 Days Qty: 14 0RF promethazine 25 mg suppository 25 mg RECTAL Q6H PRN (Reason: nausea and vomiting) Qty: 12 0RF megestrol 400 mg/10 mL (40 mg/mL) suspension promethazine [Promethegan] 25 mg suppository RECTAL valacyclovir 500 mg tablet morphine 30 mg tablet hydroxyzine HCl 25 mg tablet ibuprofen 600 mg tablet ondansetron 4 mg tablet,disintegrating pregabalin 50 mg capsule Follow-up/Referrals: UNKNOWN,DOCTOR [Primary Care Provider] -
--- NOTE | 2024-07-05 01:58 | PC.NURSE ---
Pt came to the desk to ask what meds she was being prescribed. Dr Syed informed her that she would be given Toradol. Pt then proceeds to state that she would be leaving because her boyfriend is here to pick her up. Educated pt that she has an IV in place that would nee to be removed. Continues walking toward exit stating that she would take it out. Again educated pt that the nursing staff had to ensure it was removed. Pt then took out own IV and placed on the desk. This RN did give pt a 2x2 for area before she walked out to waiting room.
== END 2024-07-05 02:03 | disposition left against medical advice (07) ==
PROVIDERS: Emergency Provider Emergency Medicine
DX: Z76.5 Malingerer [conscious simulation] (principal); F31.9 Bipolar disorder, unspecified; F41.9 Anxiety disorder, unspecified; F17.210 Nicotine dependence, cigarettes, uncomplicated; Z86.14 Personal history of Methicillin resistant Staphylococcus aureus infection
CPT/HCPCS: 96361; 96374; 99284

== ENCOUNTER 2024-08-05 22:01 | Emergency (ER) | payer OTHER, SELFPAY ==
[2024-08-05 21:59] VITALS: BP 157/114; PULSE 72; RESP 14; TEMP 37.2; O2SAT 99
[2024-08-05 22:26] LABS: Add Urine Microscopic? NO; Appearance Urine Clear (Clear); Basophils Absolute Auto 0.1 K/mm3 (0.0-0.1); Bilirubin Urine Negative (Negative); Blood Urine Negative (Negative); Color Urine Yellow (Yellow); Eosinophils Absolute Auto 0.2 K/mm3 (0-0.3); Glucose Urine UA Negative (Negative); Hematocrit 41.5 % (37.0-47.0); Hemoglobin 13.9 g/dL (12.0-15.0); Immature Granulocyte Absolute 0.02 K/mm3 (0.00-0.031); Immature Granulocyte Percent A 0.3 % (0-0.5); Ketones Urine Negative (Negative); Leukocyte Esterase Ur Negative LEU/UL (Negative); Lymphocytes Absolute Auto 2.43 K/mm3 (0.9-3.2); Lymphocytes Percent Auto 33.1 % (18.3-44.2); Mean Corpuscular HGB Conc 33.5 g/dl (32-36); Mean Corpuscular Hemoglobin 30.4 pg (26-34); Mean Corpuscular Volume 90.8 fl (80-100); Mean Platelet Volume 9.4 fl (7.4-10.4); Monocytes Absolute Auto 0.4 K/mm3 (0.1-0.6); Monocytes Percent Auto 4.9 % (2.6-8.5); Neutrophils Absolute Auto 4.3 K/mm3 (1.3-6.7); Neutrophils Percent Auto 58.7 % (45.5-73.1); Nitrate Urine Negative (Negative); Platelet Count Result 296 k/mm3 (150-375); Protein Urine Negative (Negative); Red Blood Count 4.57 M/mm3 (4.2-5.4); Red Cell Distribution Width 14.3 % (11.5-14.5); Specific Grav Ur 1.007 (1.001-1.035); Urobilinogen Urine 0.2 mg/dL (<2.0); White Blood Count 7.3 K/mm3 (4.5-10.0)
[2024-08-05 22:35] LABS: Acetaminophen < 10 ug/mL (10-30); Ethanol 222 mg/dL (<10); Salicylate < 1.0 mg/dL (2-20)
--- OUTSIDE RECORDS SUMMARY | 2024-08-05 22:35 | XMS_ITS | Clinical Summary ---
Author Organization [facility] Address [address] [place] [address] Care Team Providers Care Fumigator And Sterilizer Name Role Phone Unavailable Primary Care Provider Unavailabl e Source Comments [facility],non-owned Affiliates and Associated Physician Practices is amultiple site organization consisting of ambulatory clinics and hospital sitesin [place], [place], [place] and [place]. This disclosure is being madepursuant to the Care Everywhere program and may not contain all information available regarding this patient. Last updated 17.[facility] Social History Tobacco Use Types Packs/Day Years Used Date Smoking Tobacco: Never Assessed Comments Unknown Sex and Gender Information Value Date Recorded Sex Assigned at Not on file Legal Sex Female 3:05 PM CDT Gender Identity Not on file Sexual Orientation Not on file Plan of Treatment Health Maintenance Due Date Last Done Comments PAP SMEAR 1992 HIV SCREENING 02/21/2007 HEPATITIS C SCREENING 02/17/2010 DTAP/TDAP/TD VACCINES (1 - Tdap) 02/21/2011 HEPATITIS B VACCINE (1 of 3 - 19+ 3-dose series) 02/21/2011 COVID-19 VACCINE (1 - 2023-2 5 season) 2023 DEPRESSION SCREENING 04/07/2024 INFLUENZA VACCINE (Season Ended) 2024 ZOSTER VACCINE (1 of 2) 02/21/2042 HIB [...] patient's age to complete this topic [place] [place] [address]
--- OUTSIDE RECORDS SUMMARY | 2024-08-05 22:35 | XMS_ITS ---
Author Organization [facility] Address [address] [place] [address] Phone Care Team Providers Care Bike Mechanic Name Role Phone Gabriel Salmeron MD Unavailable [phone] Brooks Sosa MD Unavailable Provider, None Primary Care Provider UnavailKervin Rubi MD Unavailable [phone] Active Problems Problem Noted Date Diagnosed Date [...] current use Anxiety 05/07/2023 Under care of care home service 05/07/2023 Overview (05/07/2023): Two previous stays at care home Child living with her parents Current Treatment [...] 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 Hx of care home time
--- OUTSIDE RECORDS SUMMARY | 2024-08-05 22:35 | XMS_ITS | Encounter Summary ---
Author Organization [facility] Address [address] [place] [address] Care Team Providers Care Stock Sorter Name Role Phone Unavailable Primary Care Provider Unavailabl e Encounter Details Date Type Department Care Team (Late st Contact Info) Description 12/18/2022 Lab Requisition [facility] - Pathology Lab [address] [place] [address] Ishan Escobedo MD [address] [facility] [address] [place] [phone] Generalized enlarged lymph nodes Social History [...] AM CDT) Case Report Flow Cytometry Case: [id number] Authorizing Provider: Ishan Escobedo MD Collected: 12/18/2022 09:00 AM Ordering Location: [facility] Care Pathology Lab Received: 12/18/2022 03:11 PM Pathologist: Giovanni Chow MD Specimen: Axillary Lymph Node, RIGHT 12/18/2022 5:15 PM CDT [facility] Final Diagnosis Axillary lymph node, flow cytometry: - Irena light chain restricted CD10+ B-cell population detected (~99% of overall events) 12/18/2022 5:15 PM CDT [facility] Flow Cytometry Interpretation Viability: 87%. B-cells: monoclonal, kappa-restricted, expressing CD19, CD20, and CD10. T-cells: not increased, no immunophenotypic aberrancy. A cytospin prepared from the flow cytometry specimen has been reviewed for ethanol quality leader purposes. 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 Histologic slides are pending for final subclassification. 12/18/2022 5:15 PM [facility] Flow Cytometry Results Differential Result Comment Flow Cell Count /uL 9,000 Total Viability % 87.0 Lymphocytes % 99 Dim CD45 Region % 0 Monocytes % 0 Granulocytes % 1 12/18/2022 5:15 PM [facility] Reason for test Generalized enlarged lymph nodes 785.6 12/18/2022 5:15 PM [facility] Client Specimen ID # [id number] 12/18/2022 5:15 PM [facility] Number of markers 16 were performed. A-2 Flow CD3 A-4 Flow CD10 A-6 Flow CD20 A-7 Flow CD23 A-12 Flow CD2 A-13 Flow CD4 A-16 Flow CD1a A-3 Flow CD5 A-5 Flow CD19 A-8 Flow CD34 A-9 Flow CD45 A-14 Flow CD7 A-15 Flow CD8 A-17 Flow CD30 A-10 Irena+CD19+ A-11 Lambda+CD19+ 12/18/2022 5:15 PM [facility] Pathologist Location at [facility] 12/18/2022 5:15 PM [facility] Disclaimer Test performed at [facility], [address] [place] [address], [address]. *The established laboratory minimum viability is 70%. [...] high complexity clinical testing. 12/18/2022 5:15 PM CDT [facility] Embedded Images 5:[address] [facility] Pathology/Cytolo gy AXILLARY LYMPH NODE STRUCTURE / Unknown 12/18/2022 9:00 AM CDT 12/18/2022 3:11 PM CDT us Ishan Escobedo MD LAB - PATHOLOGY/CYTOLOGY ORDERAB LES Final Result [facility] [address] [phone] documented in this encounter Visit Diagnoses Diagnosis Generalized enlarged lymph nodes Enlargement of lymph nodes documented in this encounter
--- OUTSIDE RECORDS SUMMARY | 2024-08-05 22:35 | XMS_ITS | CONTINUITY OF CARE DOCUMENT ---
Author Name christopher white Address Unknown Organization [facility] Address [address] [place] [address] [address] [place] [address] Phone [phone] Care Team Providers Care Filter Press Pumper Name Role Phone Randy Armstrong MD Unavailable Randy Armstrong MD Unavailable INSURANCE PROVIDERS Payer name Policy type / Coverage type [place] red green party ID [place] MEDICA[employer] Medicaid [id number]
--- OUTSIDE RECORDS SUMMARY | 2024-08-05 22:35 | XMS_ITS | Clinical Summary ---
Author Organization [facility] Address [address] [place] [address] Care Team Providers Care Scouring Train Operator Chief Name Role Phone None, Provider MD Primary [...] Date Smoking Tobacco: Every Day Cigarettes 1 13.3 Started: 2011 Passive Smoke Exposure: Current Tobacco [...] Every 3 Years 1992 Annual Physical 02/21/1995 Hepatitis C 02/21/2010 Hepatitis B Vaccines (1 of 3 - 19+ 3-dose series) 02/21/2011 Pneumococcal Vaccine: Pediatrics (0 to 5 Years) and At-Risk Patients (6 to 49 Years) (1 of 2 - PCV) 02/21/2011 COVID-19 Vaccine (3 - Pfizer risk [...] Documents on File Type Date Recorded Patient Line Installation Supervisor Expl anation Legal Documents 05/21/2023 3:56 PM Care Teams Scouring Train Operator Chief Relationship Specialty Start Date End Date None, Provider, MD PCP - General UNKNOWN PHYSICIAN SPECIALTY 11/19/22
--- OUTSIDE RECORDS SUMMARY | 2024-08-05 22:35 | XMS_ITS | Patient Health Record ---
Author Organization [facility] Address [address] [place] [address] Care Team Providers Care Staff Cytotechnologist Name Role Phone NavyanilaRichard Primary Care Provider Satya Fernandez Unavailable [phone] Mandi Love Unavailable [phone] Evie Epps Unavailable [phone] Minerva Peacock Unavailable [phone] Allergies Allergen (clinical drug ingredient) Drug/Non Drug Allergy documented on EMR Reaction Allergy Type Onset Date Status azithromycin Zithromax Unknown Drug Allergy Acti ve codeine Codeine Unknown Drug Allergy Active Results Component Value Reference Range Notes 12 Panel Urine Drug Screen Reviewed date:01/01/2024 02:12:38 PM Interpretation: Performing Lab: Notes/Report: THC POS JULISA neg MOP (OPI) neg AMP neg MET neg BAR neg BZO neg MDMA neg MTD neg OXY neg PCP neg BUP POS 12 Panel Urine Drug Screen Reviewed date:07/12/2024 01:10:26 PM Interpretation: Performing Lab: Notes/Report: THC POS JULISA neg MOP (OPI) neg AMP POS MET POS BAR neg BZO neg MDMA neg MTD neg OXY neg PCP neg BUP POS 12 Panel Urine Drug Screen Reviewed date:01/29/2024 02:09:28 PM Interpretation: Performing Lab: Notes/Report: THC POS JULISA neg MOP (OPI) neg AMP neg MET neg BAR neg BZO neg MDMA neg MTD neg OXY neg PCP neg BUP POS 12 Panel Urine Drug Screen Reviewed date:05/27/2024 [...] pos 12 Panel Urine Drug Screen Reviewed date:12/19/2023 10:18:20 AM Interpretation: Performing Lab: Notes/Report: THC POS JULISA neg MOP (OPI) POS AMP neg MET neg BAR neg BZO neg MDMA neg MTD neg OXY neg PCP neg BUP POS Reason For Referral Reason RECURRENT ABSCESS RI GHT PERINEUM Diagnosis 1 Abscess (L02.91) Referral Organization [facility] Referring Provider First Name Satya Referring Provider Last Name Rebecca Referring Provider Speciality Internal M edicine Referred Provider Specialty Surgery General Notes GUERO Song Valeri e A 02/13/2024 09:35:39 AM > Referral to [facility] [place] Colon and Rectal Surgery. Letter to pt. Clinical Notes [facility] Colon and Rectal Surgery, [address] [facility], Phone#[phone], Referral Priority Routine Reason IMPACTED MOLAR AND S EVERE CARIES RIGHT LOWER JAW THAT DENTIST DECLINED TO TREAT Diagnosis 1 Dental caries (K02.9 ) Referral Organization [facility] Referring Provider First Name Satya Referring Provider Last Name Rebecca Referring Provider Speciality Internal M edicine Referred Provider Specialty Dental Gener al Practice General Notes GUERO Song Valeri e A 02/13/2024 09:57:12 AM > Referral to [facility] Dentistry. Letter to pt. Clinical Notes [facility], [address] [place] [phone], , Referral Priority Routine Reason anxiety, shanna Diagnosis 1 Opioid use disorder (F11.99) Referral Organization [facility] Referring Provider First Name Minerva Referring Provider Last Name Madonna Referring Provider Speciality Psychiatry Referred Provider Specialty Psychiatry Clinical Notes Rashida Krishnamurthy 11:29:12 AM >Outreach to client, no answer, LVM requesting call back. Rashida Krishnamurthy Maria Elena 06/04/2024 12:37:33 PM >2nd outreach, no answer, LVM. Smith Krishnamurthywyatt Arredondo 06/07/2024 02:49:41 PM > 3rd phone outreach, No answer. Will send letter.Raghu Michelle Maria Elena 06/22/2024 10:35:01 AM >Letter sent [...] Sublingual up to three times a day 07/08/2024 Active Social History Tobacco Use: Social History Observation Description Date Details (start date - stop date) Current Smoker 06/08/2004 - NA Sex Assigned At : Social [...] phone, visiting friends or family, going to lutheran or club meetings) More than 5 times a week How stressed are you? Stress is when someone feels tense, nervous, anxious, or can\t sleep at night because their mind is troubled A little bit In the past year have you sp ent more than 2 nights in a row in a [facility], halfway, residential center, or juvenile correctional facility? Yes What [...] (Standard) Question Answer Notes Tobacco use: Current smoker When did you start smoking? 06/08/2004 How often do you smoke cigarettes? Every day How many cigarettes a day do you smoke? 21-30 How soon after you wake up d o you smoke your first cigarette? Within 5 minutes Are you interested in quitting? Thinking about q uitting Additional Findings: Tobacco user Heavy cigarett e smoker (20-39 cigs/day) Additional Findings: Tobacco non-user Does not u se moist powdered tobacco Problems Problem Type SNOMED Code ICD Code Onset Dates Problem Status W/U Status Risk Notes Problem Tobacco user (578523827) Nicotine dependence, unspecified, uncomplicated (F17.200) Active confirmed Problem Exacerbation of asthma (679843057) Asthma exacerbation (J45.901) Active confirmed Problem Mild intermittent asthma (389635633) Mild intermittent asthma without complication (J45.20) Active confirmed Problem Tobacco use (604590505) Tobacco use disorder (F17.200) Active confirmed Problem Lymphoma involves multiple lymph node regions (finding) (590364510) Lymphoma of lymph nodes of multiple regions, 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) Active confirmed Problem Opioid use disorder (8544518358) Opioid use disorder (F11.99) Active confirmed Vital Signs Heart Rate 93 /min 07/08/2024 Temperature 97.7 degrees Fahrenheit 07/08/2024 Respiratory Rate 18 /min 07/08/2024 Blood pressure diastolic 76 mm Hg 07/08/2024 Oximetry 96 % 07/08/2024 Height 62 in 07/08/2024 Blood pressure systolic 118 mm Hg 07/08/2024 Weight 103.6 lbs 07/08/2024 BMI 18.95 kg/m2 07/08/2024 Encounters Encounter Location Date Provider Diagnosis [address] [place] [address] 12/19/2023 Richard Fish Opioid use disorder F11.99 and Nicotine dependence, unspecified, uncomplicated F17.[address] [address] [place] [address] 01/01/2024 Jenia Heavenila Opioid use disorder F11.99 and Nicotine dependence, unspecified, uncomplicated F17.200 [address] [place] [address] 01/02/2024 Satya Fernandez Abscess L02.91 ; Dental caries K02.9 ; Lymphoma of lymph nodes of multiple regions, unspecified lymphoma type C85.98 ; Opioid use disorder F11.99 and Nicotine dependence, unspecified, uncomplicated F17.200 [address] [place] [address] 01/16/2024 Satya Fernandez Asthma exacerbation J45.901 ; Mild intermittent asthma without complication J45.20 and Nicotine dependence, unspecified, uncomplicated F17.200 [address] [place] [address] 01/29/2024 Jenia Heavenila Opioid use disorder F11.99 and Tobacco use disorder F17.[address] [place] [address] 05/13/2024 Minerva Smileygeovanyrichard Patient underweight R63.6 ; Opioid use disorder F11.99 ; Non-tobacco user Z78.9 and Nutritional counseling Z71.3 [address] [place] [address] 05/27/2024 Jenia Heavens Opioid use disorder F11.99 and Nicotine dependence, unspecified, uncomplicated F17.200 [address] [address] [place] [address] 07/08/2024 Jenia Heavens Opioid use disorder F11.99 and Nicotine dependence, unspecified, uncomplicated F17.200 Assessments Encounter Date Diagnosis (ICD Code) Assessment Notes Treatment Notes Treatment Clinical Notes Section Notes 05/27/2024 Nicotine dependence, unspecified, uncomplicated (ICD-10 - F17.200) 05/27/2024 Opioid use disorder (ICD-10 - F11.99) 01/29/2024 Tobacco use disorder (ICD-10 - F17.200) 01/29/2024 Opioid use disorder (ICD-10 - F11.99) 01/02/2024 [...] 01/01/2024 Opioid use disorder (ICD-10 - F11.99) 07/08/2024 Opioid use disorder (ICD-10 - F11.99) 01/16/2024 Asthma exacerbation (ICD-10 - J45.901) NEBULIZER TREATMENT COMPLETED WITH 2.5 MG ALBUTEROL AND PATIENT TOLERTED WELL, FELT MUCH BETTER AFTER TREATMENT. 01/16/2024 Mild intermittent asthma without complication (ICD-10 - J45.20) 12/19/2023 Nicotine dependence, unspecified, uncomplicated (ICD-10 - F17.200) 12/19/2023 Opioid use disorder (ICD-10 - F11.99) 05/13/2024 Patient underweight (ICD-10 - R63.6) 05/13/2024 Opioid use disorder (ICD-10 - F11.99) 01/01/2024 Nicotine dependence, unspecified, uncomplicated (ICD-10 - F17.200) 05/13/2024 Non-tobacco user (ICD-10 - Z78.9) 01/16/2024 Nicotine dependence, unspecified, uncomplicated (ICD-10 - F17.200) 07/08/2024 Nicotine dependence, unspecified, uncomplicated (ICD-10 - F17.200) 01/02/2024 Lymphoma of lymph nodes of multiple regions, unspecified lymphoma type (ICD-10 - C85.98) 01/02/2024 Opioid use disorder (ICD-10 - F11.99) [...] self-administe r their own oral medications per [facility] Protocol. 07/08/2024 Other Patient agrees to take medication as prescribed. Discussed medication side effects, adverse effects, risks, benefits, as well as interactions. Encouraged non-use of opioids. Has naloxone. Recommended participation in recovery groups and/or counseling services. May contact office with questions or concerns. Patient may self-administe r their own medications or may self-administe r their own oral medications per [facility] Protocol. Plan Of Treatment No Information Insurance Providers Payer Name Payer Address Payer Phone Subscriber Number Group Number Insured Name Patient Relationship to Insured Coverage Start Date Coverage End Date [employer] [address] [place] [phone] [id number] Soha Marrero Self - patient is the insured 2 Medical (General) History Medical History History ICD Code Bipolar 1 Disorder Alcohol Use Disorder Surgical History Surgery Date(Month/Year) Ectopic Open Chest Surgery Chemo [place] 2022 Hospitalization History Reason Date(Month/Year) Aimeer joseluis
--- OUTSIDE RECORDS SUMMARY | 2024-08-05 22:35 | XMS_ITS | Clinical Summary ---
Author Organization [facility] [address] [facility] Address [address] [place] [address] Care Team Providers Care Supervisor White Sugar Name Role Phone Richard Fish NP Primary [...] complete this topic Insurance Care Teams Supervisor White Sugar Relationship Specialty Start Date End Date Richard Fish NP [address] [place] [address] [place] [address] PCP - General Nurse Practitioner 02/13/24
--- OUTSIDE RECORDS SUMMARY | 2024-08-05 22:35 | XMS_ITS | Encounter Summary ---
Author Organization [facility] Address [address] [facility] [place] [address] Care Team Providers Care Metallurgist Process Name Role Phone Unavailable Primary Care Provider Unavailabl e Encounter Details Date Type Department Care Team (Late st Contact Info) Description 12/19/2022 Lab Requisition [facility] - Pathology Lab [address] [place] [address] Ishan Escobedo MD [address] [address] Illness, unspecified Social History Tobacco [...] CDT) Case Report Surgical Pathology Report Case: [id number] Authorizing Provider: Ishan Escobedo MD Collected: 12/18/2022 09:00 AM Ordering Location: [facility] Care Pathology Lab Received: 12/19/2022 01:25 PM Pathologist: Giovanni Chow MD Specimen: Lymph Node Biopsy 12/19/2022 3:33 PM CDT [facility] Final Diagnosis Lymph node, biopsy [...] CD10 co-expression. Axillary lymph node, flow cytometry ([id number]): - Reese light chain restricted CD10+ B-cell population detected (~99% of overall events) Also received from [facility] is a peripheral smear showing circulating follicular lymphoma cells with occasional nuclear clefts. The peripheral blood is involved by follicular lymphoma. 12/19/2022 3:33 PM T [facility] Clinical History Suspect lymphoma. 12/19/2022 3:33 PM [facility] Materials Received Received are 4 slide(s) and 1 block labeled [id number] along with a copy of the outside pathology report. The materials originate from [facility], [address] [place] [address]. All original materials are returned to the referring institution, along with a copy of our final report. 12/19/2022 3:33 PM [facility] Pathologist Location at [facility] 12/19/2022 3:33 PM T [facility] Disclaimer The performance characteristics of all immunohistochemical and indirect immunofluorescence stains (if any) cited in this report were determined by the Histopathology Laboratory of [facility]. Some of these tests were developed by [...] the attending (teaching) pathologist. 12/19/2022 3:33 PM T [facility] Embedded Images 12/19/2022 3:33 PM T [facility] Pathology/Cytolo gy BIOPSY OF LYMPH NODE / Unknown 12/18/2022 9:00 AM CDT 12/19/2022 1:25 PM CDT us Ishan Escobedo MD LAB - PATHOLOGY/CYTOLOGY ORDERAB LES Final Result [facility] [address] [facility] [phone] documented in this encounter Visit Diagnoses Diagnosis Illness, unspecified documented in this encounter
--- OUTSIDE RECORDS SUMMARY | 2024-08-05 22:35 | XMS_ITS ---
Author Organization [facility] Address [address] [place] [address] Phone Care Team Providers Care Net Application Support Specialist Name Role Phone Gabriel Salmeron MD Unavailable [phone] Brooks Sosa MD Unavailable [phone] Provider, None Primary Care Provider UnavailKervin Rubi MD Unavailable [facility] Status:Enrolled (Active) Start date:05/05/2024 Enrollment date:05/05/2024 Related social drivers of health:Social Connections, Tobacco Use, Depression, Stress, Physical Activity, Utilities Continued Care and Services Coordination
--- OUTSIDE RECORDS SUMMARY | 2024-08-05 22:35 | XMS_ITS | Referral Summary ---
Author Organization [facility] [address] [facility] Address [address] [place] [address] Care Team Providers Care Underground Heavy Equipment Operator Name Role Phone Richard iFsh NP Primary Care Provider Allergies Active Allergy [...] Plan of Treatment Not on file Insurance [facility] Care Teams Underground Heavy Equipment Operator Relationship Specialty Start Date End Date Richard Fish NP [address] [facility] [address] PCP - General Nurse Practitioner 02/13/24
--- OUTSIDE RECORDS SUMMARY | 2024-08-05 22:35 | XMS_ITS | Clinical Summary ---
Author Organization [facility] Address [address] [place] [address] Phone Care Team Providers Care Hat Presser Name Role Phone Gabriel Salmeron MD Unavailable Brooks Sosa MD Unavailable [phone] Provider, None Primary Care Provider UnavailKervin Rubi MD Unavailable Allergies Active Allergy Reactions Criticality Noted Date Comments Allopurinol Rash High 11/26/2023 Skin rash and mouth sores Azithromycin Vomiting 02/10/2022 Diphenhydramine Other (see Comments) Medium 06/13/2023 Idiopathic reaction--hyperactivity Codeine Unknown 02/10/2022 Pecan Extract Unknown 03/23/2023 Medications buprenorphine-na loxone (Suboxone) 8-2 MG FILM every 8 hours. 12/18/2023 Active ondansetron (ZOFRAN-ODT) 4 MG TABLET DISPERSIBLE Take 2 Tablets by mouth every 8 hours as needed for Nausea - 1st line. 80 Tablet 2 03/02/2024 Active ibuprofen (MOTRIN) 200 MG TabletIndication s:Pain Take 200 mg by mouth every 8 hours as needed for Mild or more severe pain. Indications: Pain Active Active Problems Problem Noted Date Diagnosed [...] current use Anxiety 05/07/2023 Under care of [facility] service 05/07/2023 Overview (05/07/2023): Two [facility] at [facility] Child living with her parents Resolved Problems Problem Noted Date Diagnosed Date Resolved Date LRTI (lower respiratory tract infection) 09/09/2023 11/26/2023 Lymphoma 05/07/2023 10/29/2023 Overview (05/21/2023): Resistant to care No show ONC Refusing hospice 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/21/2023): Current cannabis; 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 Hx of [facility] time Encounters Date Type Department Care Team Description 06/17/2024 11:40 AM CDT - 06/17/2024 12:40 PM CDT Surgery [facility] [address] [place] [address] Kervin Jiang MD REMOVAL OF PORT, LEFT SIDE 06/17/2024 11:39 AM CDT Anesthesia Event [facility] [address] [place] [address] Roland Martinez MD [place], Kevin L, APRN, REGULATORY PRODUCT MANAGER 06/17/2024 8:59 AM CDT - 06/17/2024 1:15 PM CDT Hospital Encounter 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); Encounter for removal of tunneled central venous catheter (CVC) with port Discharge Disposition: Discharged to home or Selfcare 06/10/2024 Travel 05/28/2024 11:00 AM ELECTRICAL CONTROLS TECHNICIAN Clinical [facility] [address] [place] [address] Gabriel Salmeron MD 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) Discharge Disposition: Discharged to home or Selfcare 05/28/2024 Travel 05/27/2024 Travel 05/24/2024 [facility]phone [facility] [address] [place] [address] Gabriel Salmeron MD from Last 3 Months Immunizations Immunization Administration Dates Next Due Influenza Vaccine, Quadrivalent, PF 04/02/2022 TDAP Vaccine 02/06/2022,11/05/2020 Family History Medical History Relation Name Comments No Known Problems Father Cancer Mother Osteoarthritis Mother Relation Name Status Comments Brother Alive Father Alive Mother Alive Social History Tobacco Use Types Packs/Day Years Used Date Smoking Tobacco: Every Day Cigarettes 1 14.3 Started: 04/07/2010 Passive Smoke Exposure: Current Smokeless Tobacco: Never Tobacco Cessation:Ready to Q uit: Yes; Counseling Given: Yes Alcohol Use Standard Drinks/Week Comments Yes 2 (1 standard drink = 0.6 oz pur e alcohol) occasional [employer] Utilities Answer Date Recorded In the past 12 months has [employer], gas, oil, or water [employer] threatened to shut off services in your home? Yes 05/07/2023 Social Connection and Isolation Panel [NHANES] A nswer Date Recorded In a typical week, how many times do you talk on the phone with family, friends, or neighbors? Once a week 05/07/2023 How often do you get together with friends or re latives? Once a week 05/07/2023 How often do you attend buddhism or orthodoxy serv ices? Never 05/07/2023 Do you belong to any clubs o r organizations such as buddhism groups, unions, fraternal or athletic groups, or [...] Total Score - Questions 1-9 9 06/06 [facility] - Occupational Stress Questionnaire Answer Date [...] place to sleep or slept in a skilled nursing (including now)? No 05/07/2023 Sexually Active Control Partners Comments Yes Male Comments Unknown Sex and Gender Information Value Date Recorded Sex Assigned at Female 05/21/2023 11:44 AM ELECTRICAL CONTROLS TECHNICIAN Legal Sex Female 5:17 PM CDT Gender Identity Female 05/21/2023 11:44 AM ELECTRICAL CONTROLS TECHNICIAN Sexual Orientation Not on file Last Filed [...] No change(07/29 4:12 PM CDT) Yes Janette Tom, AERODYNAMIC CONSULTANT Note: Goal/Objective: Improve insight and understanding of behaviors and feelings. Anticipated Time Frame for Goal Completion: 6 months Goal Reviewed with: patient Readiness to change: Ready to change Department associated with goal: [facility] Steps to achieve [...] PATHOLOGY SURGICAL Routine 06/17/2024 11:55 AM CDT [facility] VAD W/SUBQ PORT/MANUFACTURING TECH CTR/PRPH INSJ 06/17/2024 11:17 AM CDT ENCOUNTER FOR REMOVAL OF TUNNELED CENTRAL VENOUS CATHETER Special Needs Allergy: Allopurinol, Azithromycin, Codeine, Pecan Extract, Benadryl Hx: Drug & Alcohol abuse 5 3.5 119# POCT URINE HCG () Routine 06/17/2024 9:38 AM CDT from Last 3 Months Results * Pathology Surgical (06/17/2024 11:55 AM CDT) Case Report Surgical Pathology Report Case: [id number] Authorizing Provider: Kervin Jiang, Collected: 06/17/2024 11:55 AM Ordering Location: [facility] Received: 06/18/2024 09:02 AM [facility] Main OR Pathologist: Ishan Escobedo MD Specimen: Foreign Body, PORT FROM LEFT CHEST 06/18/2024 2:46 PM CDT [facility] FINAL DIAGNOSIS Foreign body, port from left chest, removal: - As described grossly. 06/18/2024 2:46 PM CDT [facility] at 1446 CDT Pre-Operative Diagnosis ENCOUNTER FOR REMOVAL OF TUNNELED CENTRAL VENOUS CATHETER 06/18/2024 2:46 PM CDT [facility] Gross Description A. PORT FROM LEFT [...] only. [place]/sb 06/18/2024 2:46 PM CDT [facility] Other FOREIGN BODY SUBMITTED SPECIMEN / Unknown 06/17/2024 11:55 AM CDT 06/18/2024 9:02 AM CDT Kervin Jiang MD PATHOLOGY/CYTOLOGY OR DERABLES Final Result [facility] [address] [place] [address] * POCT Urine HCG () (06/17/2024 9:38 AM CDT) POC URINE Negative POC URINE CONTROL [place] Urine 06/17/2024 9:38 AM CDT Kervin Jiang MD POINT OF CARE TESTING (MANUAL) Final Result from Last 3 Months Insurance MEDICAID [facility] Care Teams Hat Presser Relationship Specialty Start Date End Date Provider, None [place] PCP - General 06/17/24 Gabriel Salmeron MD [address] [place] [address] Consulting Physician Medical Oncology 05/23/23 Brooks Sosa MD [address] [place] [phone] Consulting Physician Neurology 01/22/24 Kervin Jiang MD [address] [phone] Consulting Physician General Surgery 06/11/24
--- OUTSIDE RECORDS SUMMARY | 2024-08-05 22:36 | XMS_ITS | Clinical Summary ---
[facility] Address [address] [facility] [place] [address] Care Team Providers Care Assistant In Nursing Name Role Phone Unavailable Primary Care Provider [...] Pain, Mild. Active naloxone (NARCAN) 4 mg/spray [place], Non-Aerosol EMERGENCY USE ONLY: Administer 1 spray [...] (IAG) 03/25/20 23 03/26/2023 Hypokalemia 03/25/2023 03/26/2023 Family History Medical History Relation Name Comments [...] Blood Pressure 109/66 04/17/2023 8:40 AM SALES TRAINING REPRESENTATIVE Pulse 111 04/17/2023 8:40 AM SALES TRAINING REPRESENTATIVE Temperature 36.6 C (97.9 F) 04/17/2023 8:40 AM SALES TRAINING REPRESENTATIVE Respiratory Rate 10 04/17/2023 8:40 AM SALES TRAINING REPRESENTATIVE Oxygen Saturation 92% 03/27/2023 11:06 AM SALES TRAINING REPRESENTATIVE Inhaled Oxygen Concentration - - Weight 51.3 kg (113 lb) 04/17/2023 8:40 AM SALES TRAINING REPRESENTATIVE Height 162.6 cm (5' 4 ) 03/24/2023 6:27 PM SALES TRAINING REPRESENTATIVE Body Mass Index 19.4 03/24/2023 6:27 PM SALES TRAINING REPRESENTATIVE Plan of Treatment Health Maintenance Due Date Last Done Comments HEPATITIS B VACCINES (1 of 3 - 19+ 3-dose series) 02/21/2011 HPV/Cotest (21-29) 02/21/2013 CERVICAL CANCER SCREENING 02/21/2022 HPV/Cotest (30-65) 02/21/2022 PAP SMEAR 02/21/2022 INFLUENZA VACCINE (#1) 2023 04/02/2022 DTAP/TDAP/TD VACCINES (3 - Td or Tdap) 02/07/2032 02/06/2022, 11/05/2020 HPV VACCINES Aged Out No longer eligi ble based on patient's age to complete this topic Insurance [place] [facility] [place] Advance Directives For more information, please contact: [phone] * Full Code (Latest Code Status on File) Date Activated Date Inactivated Comments 03/25/2023 1:09 AM 03/26/2023 3:29 PM
--- OUTSIDE RECORDS SUMMARY | 2024-08-05 22:36 | XMS_ITS | Data Portability ---
Author Organization [facility] [place] Address [address] [place] [address] Assessment Encounter Date Assessment Date Assessment LastModified by Organization Details LastModified Time 07/29/2024 07/29/2024 Annual gynecological exam performed. Patient will come back in a year unless there are new symptoms. [email or web address] Not available 07/29/2024 11:38:03 Plan of Treatment Reminders Order Date Submit Date Provider Last Modified By Organization Details Last Modified Time Details Appointments None recorded. Lab hbcab (hepatitis B core Ab) igm, serum 2024 025 [facility] (Lab), [address] [place], [address], 5 11:25:14 HBsAg (hepatitis B surface Ag), serum 2024 025 [facility] (Lab), [address] [place], [address], 5 11:25:14 hepatitis C virus Ab, serum 2024 025 [facility] (Lab), [address] [place], [address], 5 11:25:13 HIV 1+2 AB + HIV 1 p24 Ag, qualitative immunoassay , serum 2024 025 [facility] (Lab), [address] [place], [address], 5 11:25:13 RPR (rapid plasma reagin), serum 2024 025 [facility] (Lab), [address] [facility], [place], [address], 5 11:25:14 pap, IG + HR HPV - HPV regardless but if HPV is positive need subtyping 16,18/45add STI to pap GC/CT/Trich 2024 025 [facility] (Lab), [address] [facility] [facility], [place], [address], 5 13:59:16 culture, urine 2024 025 [facility] (Lab), [address], [place], [address], 5 13:59:18 Referral None recorded. Procedures None recorded. Surgeries None recorded. Imaging MAMMO, diagnostic, digital, bilateral 2024 [facility], [address], [place], [address], 5 04:04:08 US, breast, bilateral, complete 2024 [facility], [address], [place], [address], 5 04:04:08 Medication Orders None recorded. Patient TargetsNo targets recorded. Patient InstructionsNo instructions recorded. Reason for Referral None Reported. Results Created Date Observation Date Name Description Value Unit Range Abnormal Flag Note LastModifiedBy Organization Detail LastModifiedTime 07/30/1907/29/2024 HEPAT ITIS C ANTIB FACUNDO SCREE N, REFLE X TO CONFI RMATI ON hepatitis C antibody Non-re active non-re active Antib odies to HCV Not Detec gabriella, does not exclu de the possi bilit y of expos ure to HCV. Not Available [facility] (Lab) [address] [facility] [facility], [place], [address], 07/30/2024 11:25:13 07/30/19 25 07/29/2024 HIV 1/2 ANTIG EN/AN TIBOD Y, REFLE X CONFI RMATI ON HIV antigen/anti body Nonrea ctive nonrea ctive HIV-1 antig en and HIV-1 /HIV- 2 antib odies were not detec gabriella. No labor atory evide nce of HIV infec tion. Not Available [facility] (Lab) [address] [facility], [place], [address], 07/30/2024 11:25:13 07/30/19 25 07/29/2024 HEPAT ITIS B SURFA CE ANTIG EN hepatitis B surface antigen Non-re active non-re active This assay was perfo rmed using [employer] ratio n reage nts and test kits. Value s obtai maxim with other assay metho ds or kits canno t be used inter caro eably . Not Available [facility] (Lab) [address] [facility] [facility], [place], [address], 07/30/2024 11:25:14 07/30/19 25 07/29/2024 RPR SCREE N, REFLE X TITER /CONF IRMAT ION RPR qualitative Nonrea ctive nonrea ctive Not Available [facility] (Lab) [address] [facility] [facility], [place], [address], 07/30/2024 11:25:14 07/30/19 25 07/29/2024 HEPAT ITIS B CORE, IGM hepatitis B core IgM antibody Non-re active non-re active IgM anti- HBc not detec gabriella. Does not exclu de the possi bilit y of expos ure to or infec tion with HBV. Test Perfo rmed by: [facility] [address] [place] [address] Not Available [facility] (Lab) [address] [place], [address], 07/30/2024 11:25:14 07/30/19 25 07/29/2024 IMAGE GUIDE D PAP AND HPV REGAR DLESS image guided Pap, HPV regardless of Pap result SEE RESULT S BELOW CASE REPOR T: Cytol ogy Gynec ologi reyna Repor t Case: [id number] Autho paulina gresham Provi sarah beth: Alexandria Ford, ASHTYN Singer cted: 07/29 1446 Order ing Locat ion: [place] [facility] Recei jimy: 07/30 1141 First Scree n: Arjun castellano, Deep ed, CT Rescr een: Meche Farrar, CT Speci men: Mine garsia Pap - Image d, Cervi x STATE MENT OF ADEQU ACY: Satis facto ry for evalu ation Trans forma tion zone compo nent prese nt ----- ----- ----- ----- ----- ----- ----- ----- ----- ----- ----- ----- ----- ----- ----- ----- ----- ---- FINAL DIAGN OSIS: Negat virgilio for Intra epith elial Naty muñiz or Rinku jain ([facility]) . Elect apple velazquez d by Meche Farrar, CT on 2024 at 1254 CDT ----- ----- ----- ----- ----- ----- ----- ----- ----- ----- ----- ----- ----- ----- ----- ----- ----- ---- HPV RESUL TS: HPV mRNA E6/E7 : No HPV mRNA Detec gabriella NOTE: This high risk HPV mRNA assay detec ts fourt een high- risk HPV types (16, 18, 31, 33, 35, 39, 45, 51, 52, 56, 58, 59, 66, 68) witho ut diffe renti ation . COMME NT: This speci men was revie wed by a Cytot echno logis t and/o r Patho logis t (as indic ated in this repor t) after evalu ation using the Thinp rep Imagi ng Syste m. CLINI REYNA INFOR MATIO N: Menst rual Statu s: LMP (if appli cable ): Clini reyna Histo ry/Pr eviou s Pap: Type of Neopl bouchra (if appli cable ): Signi fican t Clini reyna Findi ngs: Other Histo ry: Hormo dianna (if appli cable ): PAP EDUCA AVIVA L NOTE: The Pap Test is a scree ady test with an inher ent false negat virgilio rate. Liqui d-bas ed sampl ing may decre ase, but will not elimi moisés, false negat virgilio resul ts. A negat virgilio resul t does not precl ude the prese nce and/o r devel opmen t of disea se, since the prese nce of abnor mal cells in the sampl e depen ds on the locat ion of the lesio n and sampl ing techn ique. Leonora nued regul ar scree ady is the best metho d of cance r preve ntion . If repor gabriella cytol ogic findi ng do not corre late with physi reyna and/o r histo rical findi ngs, furth er inves tigat ion is recom unique d, as clini nati zamarripa nted. Not Available [facility] (Lab) [address] , [place], [address], 08/03/2024 13:59:16 07/30/1907/29/2024 TRICH OMONA S VAGIN CHALO (RRNA ) trichomonas vaginalis ribosomal RNA (rrna) Negati ve negati ve Not Available [facility] (Lab) [address] [place], [address], 08/03/2024 13:59:17 07/30/1907/29/2024 CT/GC (FAREED) , THINP REP VIAL chlamydia trachomatis, PCR Negati ve negati ve Not Available [facility] (Lab) [address] [place], [address], 08/03/2024 13:59:17 07/30/19 25 07/29/2024 CT/GC (FAREED) , THINP REP VIAL neisseria gonorrhoeae, PCR Negati ve negati ve Not Available [facility] (Lab) [address] [facility], [place], [address], 08/03/2024 13:59:17 07/30/19 25 07/29/2024 CULTU RE: URINE result report SEE RESULT S BELOW abnormal Test: Cultu re: Urine Speci men Sourc e: Urine - Clean Catch Speci men Type: Urine Speci men Date: 2024 1446 Resul t Date: 2024 0713 Resul t Statu s: Final resul t Ramakrishnaor mal: Yes Jacoby garcia Lab: [facility] [address] [facility] [address] Tel: CULTU RE ----- ----- ----- --- >100, 000 CFU/m l Esche michael a coli (Abno rmal) SUSCE PTIBI LITY ----- ----- ----- --- Esche michael a coli METHO D HOMER ----- ----- ----- ----- ----- ---- ----- ----- ----- ----- ----- - AMPIC ILLIN <=8 ug/mL Susce ptibl e AMPIC ILLIN /SULB ACTAM <=4 ug/mL Susce ptibl e AZTRE ONAM <=4 ug/mL Susce ptibl e CEFAZ MARISOL <=2 ug/mL Susce ptibl e CEFEP TAYLA <=2 ug/mL Susce ptibl e CEFTA ZIDIM E <=1 ug/mL Susce ptibl e CEFTR IAXON E <=1 ug/mL Susce ptibl e CIPRO FLOXA LOUIS <=0.2 5 ug/mL Susce ptibl e LEVOF LOXAC IN <=0.5 ug/mL Susce ptibl e MEROP ENEM <=1 ug/mL Susce ptibl e NITRO FURAN TOIN <=32 ug/mL Susce ptibl e PIPER ACILL IN/TA ZOBAC SEN <=8 ug/mL Susce ptibl e TOBRA MYCIN 4 ug/mL Inter media te TRIME THOPR IM/TALAVERA LFAME THOXA ZOLE <=0.5 ug/mL Susce ptibl e Not Available [facility] (Lab) [address], [place], [address], 08/03/2024 13:59:18 Result Notes None recorded. Procedures Surgical History Date Name Laterality Status Provider Name and Address Organization Details Recorded Time 11/06/19 22 chemotherapy completed [facility] 07/29/2024 12:08:18 05/08/19 15 medical termination of completed [facility] 07/29/2024 12:07:34 05/08/19 14 incision and drainage of breast abscess completed [facility] 07/29/2024 12:07:14 Imaging Results None recorded. Procedure Notes None recorded. Medical Equipment None Reported. Allergies Allergen ID Allergen Name Allergen Category Reaction Reaction Severity Criticality Documentation Date Start Date Code Code System Note Provider Name and Address Organization Details Recorded Time 97226 pecan nut food Not available Not available Not available 07/29/2024 00928 UNK [facility] 11:57:32 92974 Benadryl medicatio n Not available Not available Not available 07/29/202407424 7 RxNorm [facility] 11:57:43 61941 azithromy louis medicatio n Not available Not available Not available 07/29/2024 30658 RxNorm [facility] 11:58:11 Medications Name Sig Start Date Stop Date Status Note LastModified by Organization Details LastModified Time omeprazole 40 mg capsule,del ayed release TAKE 1 CAPSULE BY MOUTH ONCE DAILY active Not Available Not Available No t Available amoxicillin 500 mg tablet TAKE 1 TABLET BY MOUTH THREE TIMES DAILY FOR 10 DAYS 07/29 completed Not Available Not Available Not Available Macrobid 100 mg capsule Take 1 capsule every 12 hours by oral route for 7 days. 2024 active Not Available Not Available Not Avai lable oxycodone-a cetaminophe n 5 mg-325 mg tablet TAKE 1 TABLET BY MOUTH EVERY 4 HOURS NEEDED FOR PAIN 07/29 completed Not Available Not Available Not Available morphine 30 mg immediate release tablet TAKE 1 TABLET BY MOUTH EVERY 12 HOURS NEEDED FOR MODERATE OR MORE SEVERE PAIN. 07/29 completed Not Available Not Available Not Available hydroxyzine HCl 25 mg tablet TAKE 1 TABLET BY MOUTH EVERY 8 HOURS NEEDED FOR ANXIETY 07/29 completed Not Available Not Available Not Available ibuprofen 600 mg tablet TAKE 1 TABLET BY MOUTH EVERY 6 HOURS NEEDED FOR MILD OR MORE SEVERE PAIN 07/29 completed Not Available Not Available Not Available ondansetron 4 mg disintegrat ing tablet DISSOLVE 2 TABLETS IN MOUTH EVERY 8 HOURS NEEDED active Not Available Not Available No t Available naproxen 500 mg tablet TAKE 1 TABLET BY MOUTH TWICE DAILY active Not Available Not Available No t Available amoxicillin 875 mg-potassiu m clavulanate 125 mg tablet TAKE 1 TABLET BY MOUTH EVERY 12 HOURS FOR 7 DAYS 07/29 completed Not Available Not Available Not Available pregabalin 50 mg capsule TAKE 1 CAPSULE BY MOUTH THREE TIMES A DAY 07/29 completed Not Available Not Available Not Available Symbicort 80 mcg-4.5 mcg/actuati on HFA aerosol inhaler INHALE 1 PUFF BY MOUTH EVERY 6 HOURS NEEDED FOR ASTHMA active Not Available Not Available No t Available buprenorphi ne 8 mg-naloxone [address] FILM UNDER THE TONGUE DAILY. active Not Available Not Available No t Available potassium chloride ER 20 mEq tablet,exte nded release TAKE 2 TABLETS BY MOUTH TWICE DAILY FOR 1 DAY 07/29 completed Not Available Not Available Not Available Vitals Date Recorded Body height Body mass index (BMI) Body weight Systolic blood pressure Diastolic blood pressure Provider Name and Address Organization Details Last Updated DateTime 07/29/2024 157.48 cm 21.8 kg/m2 59793.49 g 119 mm[Hg] 81 mm[Hg] Lety Khan [facility] 11:56:58 Social History Question Answer Notes LastModified by Organizat ion Details LastModified Time Do You Have An Advance Directive? No [email or web address] Information n ot available 07/29/2024 What Is Your Level Of Alcohol Consumption? Occasional [email or web address] Information not available 07/29/2024 Are You Blind Or Do You Have Difficulty Seeing? No [email or web address] Information n ot available 07/29/2024 What Is Your Level Of Caffeine Consumption? Occasional [email or web address] Information not available 07/29/2024 How Much Tobacco Do You Chew? None [email or web address] Information not available 07/29/2024 In The 14 Days Before Symptom Onset, Have You Had Close Contact With A Laboratory-confirm ed COVID-19 While That Case Was Ill? No Information n ot available 07/29/2024 In The 14 Days Before Symptom Onset, Have You Had Close Contact With A Person Who Is Under Investigation For COVID-19 While That Person Was Ill? No [email or web address] Information not available 07/29/2024 Have You Been To An Area Known To Be High Risk For COVID-19? No [email or web address] Information not available 07/29/2024 Are You Deaf Or Do You Have Serious Difficulty Hearing? No [email or web address] Information not available 07/29/2024 What Type Of Diet Are You Following? REGULAR [email or web address] Information n ot available 07/29/2024 What Is The Highest Grade Or Level Of School You Have Completed Or The Highest Degree You Have Received? [id number] [email or web address] Information not available 07/29/2024 What Is Your Occupation? None [email or web address] Information not available 07/29/2024 Are There Any Guns Present In Your Home? No [email or web address] Information not available 07/29/2024 Do You Use Protection During Sex? No [email or web address] Information not available 07/29/2024 Do You Use Your Seat Belt Or Car Seat Routinely? No [email or web address] Information not available 07/29/2024 Do You Have Smoke And Carbon Monoxide Detectors In Your Home? Yes [email or web address] Information not available 07/29/2024 At What Age Did You Start Smoking Tobacco? 21 [email or web address] Information not available 07/29/2024 How Much Tobacco Do You Smoke? 1 PPD Information not available 07/29/2024 Do You Feel Stressed (tense, Restless, Nervous, Or Anxious, Or Unable To Sleep At Night)? [id number] Information not available 07/29/2024 Do You Use Any Illicit Or Recreational Drugs? No Information not available 07/29/2024 Do You Use Sunscreen Routinely? No Information not available 07/29/2024 Have You Used IV Drugs? No Information not available 07/29/2024 Sex: Unknown Functional Status Question Answer Note LastModified by Organization D etails LastModified Time Are you able to walk? [email or web address] Information not available 07/29/2024 What is your exercise level? None Information not available 07/29/2024 Mental Status None recorded. Family History Nothing Reported. Medical History Condition Response Anxiety Disorder Y Other Y Cancer Y Depression/ depression Y Gynecological History Statement/Question Response Flow Moderate Date of LMP 06/26/2024 Was last menstrual period normal Y STIs/STDs Y Current Control Method None Are cycles usually normal Y Frequency of Cycle (Q days) 28 Sexually Active? Y Menses Monthly Y Date of Last Pap Smear Sexual Problems? N LMP Approximate Obstetrics History GPAL:G 3 P 0 1 2 1 Type Value Induced 1 Spontaneous 1 Premature 1 Living 1 Total 3 Past Encounters Encounter ID Performer Location Encounter Start Date Encounter Closed Date Diagnosis/Indication Diagnosis SNOMED-CT Code Diagnosis ICD10 Code Diagnosis Note [id number] ANIA Reeves [place] [address] [address] 07/29/2024 11:33:28 07/30/2024 10:26:56 Gynecologic examination 10079412 Z01.419 WWEBC - declinedPa p - done todaySTI screen - gc/ct/tric h testing added to papHIV/Hep B&C/Syphil is testing ordered per pt requestRou juan labs - PCPRTC in 1 yr or sooner if needed It is strongly advised to have an annual flu shot and up can obtain at most pharmacies . If you have not had a TDap shot in the last 10 years you should obtain one as well. Discussed with patient & provided with informatio n regarding the HPV vaccine if applicable . Encourage safe sexual practices, to use condoms and limit partners if not already in a monogamous relationsh ip. Do monthly self breast exams. BRCA testing is now available for patients with strong genetic history of female cancer. If interested contact the office. Engage in regular exercise. Avoid tobacco and illicit drugs. This lifestyle behavior pattern will lead to less health conditions and longer life span. If BMI greater than 25 dietary consult advised. Questions answered. Venereal d isease screening 894941078 Z11.3 Sexually t ransmitted infectious disease 6572769 A64 Breast lump [id number] N63 .0 order given for bilateral diagnostic mammogram and u/s Health Concerns Section Related Observation LastModified by Organization Detai ls LastModified Time None Recorded Concern Status LastModified by Organization Details LastModified Time None Recorded Advance Directives Directive N: Payers Encounter Date Sequence Insurance Name Policy Number Policy Woods Covered Member ID Woods Member ID Guarantor Name 07/29/2024 1 [facility] (MEDICAID HMO) [id number] Soha Marrero [id number] Soha Marrero Notes Date Note Type Note Provider Name and Address Organization Details Recorded Time 07/29/2024 text/html Annual GYNReport ed bypatient.Menstrua l cycle:Normal menses Urinary symptoms:No hematuria; No incontinence Vulva:No genital lesion Vagina:Normal vaginal discharge Breast:No breast pain; No breast lump; No nipple discharge Current Contraception:Nola h control not practiced Sexual complaints:No sexual complaints; No pain during intercourse; Normal libido Menopausal Symptoms:No menopausal symptoms; Normal vaginal lubrication Psychological symptoms:No depression; No anxiety; No PMDD Preventive measures:Encourage self breast examination; Encourage regular exercise; Encourage no tobacco use; Encourage regular mammograms starting age 42Notes:34yo wweBC - noneshe is unsure when her last pap was, unsure if she has had any abnormal papsfells bilateral breast lumps (neg nipple discharge, pain, or redness)would like STI testing todayhad urinary frequency last week, symptoms have since resolved h/o lymphoma, in remission since 2023 ANIA Reeves [address], [place], [address], [place] [facility] 07/30/2024 09:32:49 OBGyn Episode Ob Episode Information Episode Created Date Number of Fetuses Patient Bloodtype Patient rh Status Prepregnancy Weight lbs Domestic Partner Domestic Partner Phone Father Name Cooperative Education Director Status 07/30/19 1 CLOSED Fetus Data First Name Last Name Admitted to NICU Weight (g) Sex Living Outcome Pediatric Complications Fetus ID Race Codes Race Delivery Type , Induced [id number] Fly Calculation Initial Fly Date Initial Exam Date Initial Exam Provider Initial Ultrasound Date Last Menstrual Period Date Ultra Sound Weeks Gestation 0 Eighteen To Twenty Week Fly Update Ultra Sound Date Fundal Height At Umbil Quickening Date Ultra Sound Latest Weeks Gestation Final Fly Confirmed By Final Fly Confirmed Date Final Fly Date Ultra Sound Latest Days Gestation 0 0 Menstrual History Last Menstrual Date Menses Monthly On Bcp Conception Prior Menses Frequency Hcg Plus Date Menarche Onset Age Delivery Information Delivery Date Delivery Type Labor Anesthesia Weeks Gestation Incision Type Labor Labor Length Hrs Delivered By Post Complications Tubal Sterilization Discharge Date Comments 1 Discharge Information Feeding Method Contraceptive Method Maternal HG B and HCT Levels Ob Episode Information Episode Created Date Number of Fetuses Patient Bloodtype Patient rh Status Prepregnancy Weight lbs Domestic Partner Domestic Partner Phone Father Name Cooperative Education Director Status 07/30/19 1 CLOSED Fetus Data First Name Last Name Admitted to NICU Weight (g) Sex Living Outcome Pediatric Complications Fetus ID Race Codes Race Delivery Type , Spontane ous [id number] Fly Calculation Initial Fly Date Initial Exam Date Initial Exam Provider Initial Ultrasound Date Last Menstrual Period Date Ultra Sound Weeks Gestation 0 Eighteen To Twenty Week Fly Update Ultra Sound Date Fundal Height At Umbil Quickening Date Ultra Sound Latest Weeks Gestation Final Fly Confirmed By Final Fly Confirmed Date Final Fly Date Ultra Sound Latest Days Gestation 0 0 Menstrual History Last Menstrual Date Menses Monthly On Bcp Conception Prior Menses Frequency Hcg Plus Date Menarche Onset Age Delivery Information Delivery Date Delivery Type Labor Anesthesia Weeks Gestation Incision Type Labor Labor Length Hrs Delivered By Post Complications Tubal Sterilization Discharge Date Comments 5 Discharge Information Feeding Method Contraceptive Method Maternal HG B and HCT Levels Ob Episode Information Episode Created Date Number of Fetuses Patient Bloodtype Patient rh Status Prepregnancy Weight lbs Domestic Partner Domestic Partner Phone Father Name Cooperative Education Director Status 07/30/19 1 CLOSED Fetus Data First Name Last Name Admitted to NICU Weight (g) Sex Living Outcome Pediatric Complications Fetus ID Race Codes Race Delivery Type F [place] e [id number] Vaginal Delivery Fly Calculation Initial Fly Date Initial Exam Date Initial Exam Provider Initial Ultrasound Date Last Menstrual Period Date Ultra Sound Weeks Gestation 0 Eighteen To Twenty Week Fly Update Ultra Sound Date Fundal Height At Umbil Quickening Date Ultra Sound Latest Weeks Gestation Final Fly Confirmed By Final Fly Confirmed Date Final Fly Date Ultra Sound Latest Days Gestation 0 0 Menstrual History Last Menstrual Date Menses Monthly On Bcp Conception Prior Menses Frequency Hcg Plus Date Menarche Onset Age Delivery Information Delivery Date Delivery Type Labor Anesthesia Weeks Gestation Incision Type Labor Labor Length Hrs Delivered By Post Complications Tubal Sterilization Discharge Date Comments 1 Discharge Information Feeding Method Contraceptive Method Maternal HG B and HCT Levels
[2024-08-05 22:44] LABS: Amphetamine Screen Urine Negative (Negative); Barbiturate Screen Urine Negative (Negative); Benzodiazepines Screen Urine Negative (Negative); Cannabinoid Screen Urine Positive (Negative); Cocaine Screen Urine Negative (Negative); Methadone Screen Urine Negative (Negative); Opiate Screen Urine Negative (Negative); Phencyclidine Screen Urine Negative (Negative)
[2024-08-05 22:48] LABS: Alanine Aminotransferase 18 U/L (6-35); Albumin Level 4.5 g/dL (3.5-5.1); Alkaline Phosphatase 105 U/L (38-126); Anion Gap 15 mmol/L (4-12); Aspartate Amino Transferase 27 U/L (14-36); Bilirubin,Total 0.4 mg/dL (0.2-1.3); Blood Urea Nitrogen 3 mg/dL (7-17); Carbon Dioxide 25 mmol/L (22-30); Chloride 105 mmol/L (98-107); Estimated CRCL calculation 84 ml/min; Estimated Glomerular Filt Rate > 60; Glucose 122 mg/dL (65-110); Lipase 31 U/L (23-300); Magnesium 1.5 mg/dL (1.6-2.3); Potassium 2.7 mmol/L (3.4-5.0); Sodium 145 mmol/L (137-145)
--- NOTE | 2024-08-05 22:53 | ED.ABDPAIN ---
HPI - Abdominal Pain General Chief Complaint: Abdominal Pain Stated Complaint: cancer pt - abd pain Time Seen by Provider: 08/05/24 22:30 History of Present Illness HPI narrative: Patient is a 34-year-old female who presents the emergency department this evening complaining of abdominal pain that started approximately 3 hours ago. Patient admits to drinking alcohol all day today and complains of nausea and vomiting as well as diarrhea. Symptoms all started today. Patient is known to our facility and has an extensive history of polysubstance abuse and drug-seeking behavior. Patient states that she is currently on Suboxone and is doing well on it. Denies any additional symptoms or concerns at this time. Related Data Home Medications ?Medication ?Instructions ?Recorded ?Confirmed ?Last Taken ?Type hydroxyzine HCl 25 mg tablet 25 mg PO TID 03/21/23 03/27/23 Unknown History methylprednisolone 4 mg tablets in mg 03/21/23 03/21/23 Unknown History a dose pack hydroxyzine HCl 25 mg tablet mg 09/30/23 Unknown History ibuprofen 600 mg tablet mg 09/30/23 Unknown History megestrol 400 mg/10 mL (40 mg/mL) mg 09/30/23 Unknown History oral suspension morphine 30 mg immediate release mg 09/30/23 Unknown History tablet ondansetron 4 mg disintegrating mg 09/30/23 Unknown History tablet pregabalin 50 mg capsule mg 09/30/23 Unknown History promethazine 25 mg rectal mg RECTAL 09/30/23 Unknown History suppository (Promethegan) valacyclovir 500 mg tablet mg 09/30/23 Unknown History Allergies Allergy/AdvReac Type Severity Reaction Status Date / Time azithromycin AdvReac Nausea Verified 03/13/24 21:53 codeine AdvReac Vomiting Verified 03/13/24 21:53 diphenhydramine (From AdvReac Jittery Verified 03/13/24 21:53 Benadryl) pecan nut AdvReac Nausea and Verified 03/13/24 21:53 Vomiting pregabalin AdvReac Unknown Verified 03/13/24 21:53 Review of Systems Review of Systems: All systems are reviewed and are negative unless stated otherwise in the HPI. 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 L Side. History of salpingo-oophorectomy Social History Social History Social History: Currently living with boyfriend. Full Code. Surrogate decision maker - Isaiah Beverly (step-dad), if unavailable then Marlene Geigerntz (mom). Smoking packs per day: 1 Smoking cigarettes per day: 20.0 Years smoked: 11 Smoking pack-years: 11.00 Smoking status: Current every day smoker Tobacco type: cigarettes Alcohol intake: current Drinks per week: 1 Alcohol use details: social Substance use: former Substance use type: methamphetamine Other substance usage details: QUIT USING EARLY DEC 2022 D/T DIAGNOSIS & SURGERY Last use: last use of heroin-September 2014 Lack of Transportation: No Lack of Food: Never True Current Housing: I Have Housing Concerned About Future Housing: No Difficulty Paying Gas/Electric Bills: No Difficulty Paying for Meds: No Currently Unemployed: No Education: High School Diploma/GED Difficulty w/ Childcare or Family Care: No Living arrangements: with friend(s) Additional living arrangements comments: boyfriend Spiritual care concerns: No Exam Narrative: General: Alert, awake, afebrile, intoxicated. HEENT: PERRL, no rhinorrhea, no post nasal drip, oropharynx clear. Neck: Trachea midline, no JVD, no lymphadenopathy. Cardiovascular: Regular rate and rhythm, no murmurs, rubs or gallops, no peripheral edema. Respiratory: Clear to auscultation bilaterally, no tachypnea, no wheezing, no rhonchi, no rubs, no respiratory distress. Abdomen: Soft, nontender, nondistended, no rebound, no guarding, no peritoneal signs. Musculoskeletal: No joint swelling or deformity, normal muscle tone. Skin: No rashes or petechia, no signs of infection. Psychiatric: Intoxicated otherwise normal behavior and judgment for situation. Neurological: Alert and oriented to person, place, and time. Follows all commands. No focal deficits, speech is clear and fluent. Course Vital Signs Vital signs: Vital Signs Temperature 99 F 05/01/25 21:59 Pulse Rate 72 08/05/24 21:59 Respiratory Rate 14 08/05/24 21:59 Blood Pressure 157/114 H 08/05/24 21:59 Pulse Oximetry 99 08/05/24 21:59 Oxygen Delivery Room Air 08/05/24 21:59 Temperature 99 F 08/05/24 21:59 Pulse Rate 72 08/05/24 21:59 Respiratory Rate 14 08/05/24 21:59 Blood Pressure 157/114 H 08/05/24 21:59 Pulse Oximetry 99 08/05/24 21:59 Oxygen Delivery Room Air 08/05/24 21:59 MDM - Abdominal Pain MDM Narrative Medical decision making narrative: The patient was evaluated by myself in the emergency department. History is obtained from patient who is an independent historian and physical exam was performed. External medical records were reviewed at this time. IV was established and pertinent tests were ordered. Patient was administered 1 L IV fluid bolus with normal saline, 15 mg of IV Toradol for pain and 4 mg IV Zofran for nausea/vomiting. Laboratory results obtained revealing a potassium level of 2.7 and magnesium level of 1.5 otherwise unremarkable. Urinalysis unremarkable. Urine drug screen positive for cannabinoids. Blood alcohol level 222. Patient was administered 40 mEq of oral potassium pills and 40 mEq of oral potassium juice. Patient is only able to drink 20 mEq of the do stating that she does not like the taste. At this time she was administered an additional 20 mEq of oral potassium pills for a total of 80 mEq of oral potassium. Shared medical decision-making the patient ranging obtaining a CT abdomen and pelvis was discussed, patient admits that this is her chronic abdominal pain which she has had multiple CT scans for, I do not recommend CT at this time given her normal blood work and patient is in agreement. Differential diagnosis considerations include alcohol intoxication, polysubstance abuse, pancreatitis, biliary colic, gastritis, dehydration, electrolyte derangements. Comorbidities impacting this visit include history of polysubstance abuse, alcohol abuse, drug-seeking behavior. I have evaluated and discussed social determinants of health with the patient that could potentially impact subsequent diagnosis and treatment plans. On repeat assessment of the patient, reevaluation revealed that the patient is doing well and is in no acute distress. Patient symptoms have improved since she arrived to our emergency department. Repeat vital signs were all reviewed and noted to be stable. Differential diagnosis and treatment plan were discussed with the patient at bedside. Patient agrees with discussion and after shared medical decision making agrees with discharge. All questions were answered to the patient's satisfaction. Patient will follow up with her PCP in 3-5 days. Patient was provided with strict return precautions and instructed to return to the emergency department if any new or worsening symptoms develop. The patient was discharged in stable condition. Lab Data 08/05/24 22:18 08/05/24 22:18 Labs: Lab Results 08/05/24 Range/Units 22:18 WBC 7.3 (4.5-10.0) K/mm3 RBC 4.57 (4.2-5.4) M/mm3 Hgb 13.9 (12.0-15.0) g/dL Hct 41.5 (37.0-47.0) % MCV 90.8 (80-100) fl MCH 30.4 (26-34) pg MCHC 33.5 (32-36) g/dl RDW 14.3 (11.5-14.5) % Plt Count 296 (150-375) k/mm3 MPV 9.4 (7.4-10.4) fl Immature Gran % (Auto) 0.3 (0-0.5) % Neut % (Auto) 58.7 (45.5-73.1) % Lymph % (Auto) 33.1 (18.3-44.2) % [place] % (Auto) 4.9 (2.6-8.5) % Eos % (Auto) 2.0 (0-4.4) % Baso % (Auto) 1.0 (0.2-1.2) % Lymph # (Auto) 2.43 (0.9-3.2) K/mm3 [place] # (Auto) 0.4 (0.1-0.6) K/mm3 Eos # (Auto) 0.2 (0-0.3) K/mm3 Baso # (Auto) 0.1 (0.0-0.1) K/mm3 Abs Immat Gran (auto) 0.02 (0.00-0.031) K/mm3 Absolute Neuts (auto) 4.3 (1.3-6.7) K/mm3 Absolute Nucleated RBC 0.000 (0.0-0.012) K/mm3 Nucleated RBC % 0.0 (0.0-0.2) % Sodium 145 (137-145) mmol/L Potassium 2.7 L* (3.4-5.0) mmol/L Chloride 105 (98-107) mmol/L Carbon Dioxide 25 (22-30) mmol/L Anion Gap 15 H (4-12) mmol/L BUN 3 L (7-17) mg/dL Creatinine 0.65 L (0.7-1.0) mg/dL Estim Creat Clear Calc 84 ml/min Estimated GFR > 60 (59 - ) Glucose 122 H (65-110) mg/dL Calcium 9.0 (8.4-10.2) mg/dL Magnesium 1.5 L (1.6-2.3) mg/dL Total Bilirubin 0.4 (0.2-1.3) mg/dL AST 27 (14-36) U/L ALT 18 (6-35) U/L Alkaline Phosphatase 105 (38-126) U/L Total Protein 7.0 (6.3-8.2) g/dL Albumin 4.5 (3.5-5.1) g/dL Lipase 31 (23-300) U/L Urine Color Yellow (Yellow) Urine Appearance Clear (Clear) Urine pH 7.0 (5.0-9.0) Ur Specific [place] 1.007 (1.001-1.035) Urine Protein Negative (Negative) mg/dL Urine Glucose (UA) Negative (Negative) mg/dL Urine Ketones Negative (Negative) mg/dL Ur Blood (Man) Negative (Negative) Urine Nitrate Negative (Negative) Urine Bilirubin Negative (Negative) Urine Urobilinogen 0.2 (<2.0) mg/dL Leukocyte Esterase Rfl Negative (Negative) EMMANUELLE/UL Salicylates < 1.0 L (2-20) mg/dL Urine Opiates Screen Negative (Negative) Urine Methadone Screen Negative (Negative) Acetaminophen < 10 L (10-30) ug/mL Ur Barbiturates Screen Negative (Negative) Ur Phencyclidine Scrn Negative (Negative) Ur Amphetamine Screen Negative (Negative) U Benzodiazepines Scrn Negative (Negative) Urine Cocaine Screen Negative (Negative) U Cannabinoids Screen Positive A (Negative) Ethyl Alcohol 222 (<10) mg/dL Discharge Plan Discharge Clinical Impression: Hypomagnesemia, Acute hypokalemia, Alcohol intoxication Patient Disposition: Home Condition: Improved Instructions: Antibiotic Form, Hypokalemia (ED), Abdominal Pain (ED) Additional Instructions: Please follow-up with your family doctor within the next 3-5 days. Return to emergency department if any new or worsening symptoms develop. Patient Language: Trinidadian Prescriptions: No Action oxycodone-acetaminophen [Percocet] 10-325 mg tablet 1 tablet PO Q4H PRN (Reason: pain) Qty: 5 0RF ondansetron 4 mg tablet,disintegrating 4 mg PO Q6H PRN (Reason: nausea and vomiting) Qty: 20 0RF hydroxyzine HCl 25 mg tablet 25 mg PO TID methylprednisolone 4 mg tablets,dose pack promethazine 25 mg suppository 25 mg RECTAL Q6H PRN (Reason: nausea and vomiting) Qty: 12 0RF ondansetron 4 mg tablet,disintegrating 4 mg PO Q8H PRN (Reason: nausea and vomiting) Qty: 30 0RF oxycodone-acetaminophen [Percocet] 10-325 mg tablet 1 tablet PO Q6H PRN (Reason: pain) Qty: 20 0RF ondansetron 4 mg tablet,disintegrating 4 mg PO Q8H PRN (Reason: nausea and vomiting) Qty: 10 0RF amoxicillin-pot clavulanate 875-125 mg tablet 1 tablet PO Q12H 7 Days Qty: 14 0RF promethazine 25 mg suppository 25 mg RECTAL Q6H PRN (Reason: nausea and vomiting) Qty: 12 0RF megestrol 400 mg/10 mL (40 mg/mL) suspension promethazine [Promethegan] 25 mg suppository RECTAL valacyclovir 500 mg tablet morphine 30 mg tablet hydroxyzine HCl 25 mg tablet ibuprofen 600 mg tablet ondansetron 4 mg tablet,disintegrating pregabalin 50 mg capsule Follow-up/Referrals: Sterling Patricio MD [Physician] - 3 Days UNKNOWN,DOCTOR [Primary Care Provider] - Time of Disposition: 22:57
[2024-08-05] MEDS: POTASSIUM CHLORIDE 20 MEQ ER TABLET 40 MEQ PO (23:03)
[2024-08-05] MEDS: SODIUM CHLORIDE 0.9% IV 1,000 ML 999 ML IV CONT (23:06)
[2024-08-05] MEDS: POTASSIUM CHLORIDE 20 MEQ PACKET (FOR LIQUID) 40 MEQ PO (23:06)
[2024-08-05] MEDS: KETOROLAC 15 MG/ML VIAL (*BKC) IV PUSH (23:07)
[2024-08-05] MEDS: ONDANSETRON INJ 4 MG/2 ML VIAL IV PUSH (23:07)
[2024-08-05] MEDS: MAGNESIUM SULF 1 GM/D5W 100 ML 1 GM/100 ML BAG IVPB (23:07)
[2024-08-06] MEDS: ACETAMINOPHEN 325 MG TABLET 650 MG PO (00:15)
[2024-08-06] MEDS: POTASSIUM CHLORIDE 20 MEQ ER TABLET PO (00:15)
== END 2024-08-06 01:44 | disposition home or self-care (01) ==
PROVIDERS: Emergency Provider Emergency Medicine
DX: E87.6 Hypokalemia (principal); E83.42 Hypomagnesemia; F10.129 Alcohol abuse with intoxication, unspecified; Y90.7 Blood alcohol level of 200-239 mg/100 ml; F31.9 Bipolar disorder, unspecified; F41.9 Anxiety disorder, unspecified; F17.210 Nicotine dependence, cigarettes, uncomplicated; Z86.14 Personal history of Methicillin resistant Staphylococcus aureus infection; Z90.79 Acquired absence of other genital organ(s); Z79.891 Long term (current) use of opiate analgesic
CPT/HCPCS: 36415; 80053; 80143; 80179; 80307; 81003; 82077; 83690; 83735; 85025; 96365; 96375; 99284; A9270; J1885; J2405; J3475; J7030

== ENCOUNTER 2024-08-06 08:41 | Emergency (ER) | payer OTHER, SELFPAY ==
--- NOTE | ~2024-08-06 | CT_ITS ---
CT of the Abdomen and Pelvis: Indication: Abdominal pain Technique: 2.5 mm axial scans were obtained through the abdomen and pelvis following intravenous adm inistration of 100 cc of Omnipaque 350. Dose reduction technique was used on this scan by utilizing a utomated exposure control and iterative reconstruction technique. The dose-length product (DLP) was 1 91.69 mGy-cm. COMPARISON: 03/22/2023 Findings: Scans through the lung bases are unremarkable. There is periportal edema and mild gallbladder wall thickening. There is a vague hypodense area in th e right hepatic lobe measuring up to approximately 2.7 cm in diameter (axial image 45). Mild splenome cassandra noted. The pancreas, adrenals and kidneys are within normal limits. No evidence of aortic aneur ysm. There is extensive confluent lymphadenopathy in the retroperitoneum/periaortic region extending into the marva hepatis and posterior to the pancreas. This conglomeration measures up to approximately 11. 9 cm in transverse dimension and 6.3 cm in AP dimension (axial image 61). There is mild lifting of th e aorta off the vertebral column. There are additional enlarged lymph node just superior to the bilat eral adrenal glands and in the medial right perinephric region. No bowel obstruction or bowel wall thickening. There is no evidence to suggest acute appendicitis. Images through the pelvis were performed. Urinary bladder unremarkable. There is small amount of pelv ic free fluid. There is a right ovarian cyst measuring 3 cm in diameter. Impression: Extensive lymphadenopathy in the retroperitoneum/para-aortic region extending to the marva hepatis an d posterior to the pancreas, as detailed above. Findings are is consistent with lymphoma, with extent of disease similar to prior exam.. Associated splenomegaly, which is suspicious for lymphomatous involvement. Vague hypodense area in the right hepatic lobe. Lymphomatous involvement is a consideration given ass ociated findings noted above. Consider pre and postcontrast MR to further evaluate this finding, if i t will affect clinical management. Small amount of pelvic ascites, nonspecific. 3 cm ovarian cyst. Reviewed, dictated and finalized at location M. Impression: Extensive lymphadenopathy in the retroperitoneum/para-aortic region extending t o the marva hepatis and posterior to the pancreas, as detailed above. Findings are is consistent with lymphoma, with extent of disease similar to prior exam.. Associated splenomegaly, which is suspicious for lymphomatous involvement. Vague hypodense area in the right hepatic lobe. Lymphomatous involvement is a c onsideration given associated findings noted above. Consider pre and postcontra st MR to further evaluate this finding, if it will affect clinical management. Small amount of pelvic ascites, nonspecific. 3 cm ovarian cyst.
[2024-08-06 08:42] VITALS: BP 156/84; PULSE 74; RESP 18; TEMP 36.2; O2SAT 98
--- NOTE | 2024-08-06 10:23 | ECG_ITS ---
Test Date: 2024-08-06 10:44:52 Measurements Intervals [place] Rate: 63 P: 48 TX: 102 QRS: 77 QRSD: 93 T: 63 QT: 468 QTc: 481 Interpretive Statements SINUS RHYTHM WITH SHORT TX INTERVAL POSSIBLE RIGHT VENTRICULAR CONDUCTION DELAY [RSR (QR) IN V1/V2] MINIMAL ST DEPRESSION [0.025+ mV ST DEPRESSION] PROLONGED QT INTERVAL No previous ECG available for comparison Electronically Signed On 08-06-2024 19:10:25 CDT by Cely Morton
--- NOTE | 2024-08-06 10:23 | ED_ITS ---
HPI - General Adult General Chief complaint: Unspecified Stated complaint: pain Time Seen by Provider: 08/06/24 09:06 History of Present Illness HPI narrative: Patient is a 34-year-old female who presents to the ER with abdominal pain. She reports she was seen here last night and diagnosed with a urinary tract infection. Patient reports she has been unable to fill her antibiotics yet and continues to experience lower abdominal pain. She also endorses right upper quadrant abdominal pain. Patient endorses a history of lymphoma, drug abuse, and pancreatitis. She endorses emesis last night, and continued nausea. Patient endorses decreased p.o. intake, intermittent sweats, and back pain. She denies any chest pain, shortness of breath, recent fevers. 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 Related Data Home Medications ?Medication ?Instructions ?Recorded ?Confirmed ?Last Taken ?Type hydroxyzine HCl 25 mg tablet 25 mg PO TID 03/21/23 03/27/23 Unknown History methylprednisolone 4 mg tablets in mg 03/21/23 03/21/23 Unknown History a dose pack hydroxyzine HCl 25 mg tablet mg 09/30/23 Unknown History ibuprofen 600 mg tablet mg 09/30/23 Unknown History megestrol 400 mg/10 mL (40 mg/mL) mg 09/30/23 Unknown History oral suspension morphine 30 mg immediate release mg 09/30/23 Unknown History tablet ondansetron 4 mg disintegrating mg 09/30/23 Unknown History tablet pregabalin 50 mg capsule mg 09/30/23 Unknown History promethazine 25 mg rectal mg RECTAL 09/30/23 Unknown History suppository (Promethegan) valacyclovir 500 mg tablet mg 09/30/23 Unknown History Allergies Allergy/AdvReac Type Severity Reaction Status Date / Time azithromycin AdvReac Nausea Verified 08/06/24 08:45 codeine AdvReac Vomiting Verified 08/06/24 08:45 diphenhydramine (From AdvReac Jittery Verified 08/06/24 08:45 Benadryl) pecan nut AdvReac Nausea and Verified 08/06/24 08:45 Vomiting pregabalin AdvReac Unknown Verified 08/06/24 08:45 Review of Systems 2 Review of Systems: All systems reviewed & are unremarkable except as noted in HPI and below PMFSH Past Medical History Medical History Drug-induced psychotic disorder Atypical bipolar disorder Anxiety MRSA infection buttock and leg during last lengthy incarceration (2020) Ectopic Methamphetamine abuse, episodic History of heroin use Surgical History Surgical History History 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 L Side. History of salpingo-oophorectomy Social History Social History Social History: Currently living with boyfriend. Full Code. Surrogate decision maker - Isaiah Beverly (step-dad), if unavailable then Marlene Geigerntz (mom). Smoking packs per day: 1 Smoking cigarettes per day: 20.0 Years smoked: 11 Smoking pack-years: 11.00 Smoking status: Current every day smoker Tobacco type: cigarettes Alcohol intake: current Drinks per week: 1 Alcohol use details: social Substance use: former Substance use type: methamphetamine Other substance usage details: QUIT USING EARLY DEC 2022 D/T DIAGNOSIS & SURGERY Last use: last use of heroin-September 2014 Lack of Transportation: No Lack of Food: Never True Current Housing: I Have Housing Concerned About Future Housing: No Difficulty Paying Gas/Electric Bills: No Difficulty Paying for Meds: No Currently Unemployed: No Education: High School Diploma/GED Difficulty w/ Childcare or Family Care: No Living arrangements: with friend(s) Additional living arrangements comments: boyfriend Spiritual care concerns: No Exam 2 Narrative: GENERAL: Well appearing, well-nourished, non-toxic, in no acute distress. HEAD: Normocephalic, atraumatic. NECK: Supple. No adenopathy, no masses. RESPIRATORY: Airway patent, respirations nonlabored. Clear to auscultation bilaterally, no rales, rhonchi, wheezing. CARDIOVASCULAR: Regular rate and rhythm without murmurs, rubs, or gallops. Peripheral pulses 2+ and equal bilaterally. ABDOMINAL: Soft, tender right upper quadrant and bilateral lower quadrants, nondistended, no hepatosplenomegaly. Normoactive BS. MUSCULOSKELETAL: Moves all extremities. Strength/ROM intact without gross deformities. SKIN: Warm, dry, normal color. No rashes. NEURO: A&O X3. Speech clear. Cranial nerves II-XII intact. No ataxic movements. PSYCHIATRIC: Appropriate mood and affect. Normal interaction. Course Vital Signs Vital signs: Vital Signs Temperature 36.2 C L 08/06/24 08:42 Pulse Rate 74 08/06/24 08:42 Respiratory Rate 18 08/06/24 08:42 Blood Pressure 156/84 H 08/06/24 08:42 Pulse Oximetry 98 08/06/24 08:42 Temperature 36.2 C L 08/06/24 08:42 Pulse Rate 74 08/06/24 08:42 Respiratory Rate 18 08/06/24 08:42 Blood Pressure 156/84 H 08/06/24 08:42 Pulse Oximetry 98 08/06/24 08:42 Medical Decision Making MDM Narrative Medical decision making narrative: Patient is a 34-year-old female who presents to the ER with abdominal pain. She reports she was seen here last night and diagnosed with a urinary tract infection. Patient reports she has been unable to fill her antibiotics yet and continues to experience lower abdominal pain. She also endorses right upper quadrant abdominal pain. Patient endorses a history of lymphoma, drug abuse, and pancreatitis. She endorses emesis last night, and continued nausea. Patient endorses decreased p.o. intake, intermittent sweats, and back pain. She denies any chest pain, shortness of breath, recent fevers. 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 Labs Ordered: CBC, CMP, lipase, urine preg, INR, PTT, troponin Imaging Ordered: CT abdomen/pelvis Medications Ordered: Toradol IV, 1L NS IV bolus, Potassium Chloride oral Results: Pt's CT scan indicates Extensive lymphadenopathy in the retroperitoneum/para-aortic region extending to the marva hepatis and posterior to the pancreas, as detailed above. Findings are is consistent with lymphoma, with extent of disease similar to prior exam.. Associated splenomegaly, which is suspicious for lymphomatous involvement. Vague hypodense area in the right hepatic lobe. Lymphomatous involvement is a consideration given associated findings noted above. Consider pre and postcontrast MR to further evaluate this finding, if it will affect clinical management. Small amount of pelvic ascites, nonspecific. 3 cm ovarian cyst. Diagnosis: abdominal pain, UTI-diagnosed last night Consults: [facility]-Dr. Faviola Bill. She advised pt was fired from their office and advised that pt NOT receive any narcotics from our facility. Patient Education/Shared MDM: Results of imaging shared with patient. She endorses mild improvement following medication administration, but is requesting a narcotic. It was explained to pt that Dr. Salmeron's office advised she should not receive narcotics here and she was strongly advised to follow-up with her oncologist as soon as possible. She was also advised to maintain hydration status upon discharge and complete her full dose of antibiotics that was prescribed last night. Pt should follow-up with her PCP as needed. She will be discharged home with a prescription for Pyridium. Strict return precautions provided. Patient verbalized understanding and is in agreement with plan. Vital signs stable at time of discharge. All questions answered. Differential Diagnosis Differential Diagnosis: Urinary tract infection, lymphoma, pancreatitis, cholecystitis Vital Signs Vital Signs: Vital Signs Temperature 36.2 C L 08/06/24 08:42 Pulse Rate 74 08/06/24 08:42 Respiratory Rate 18 08/06/24 08:42 Blood Pressure 156/84 H 08/06/24 08:42 Pulse Oximetry 98 08/06/24 08:42 Temperature 36.2 C L 08/06/24 08:42 Pulse Rate 74 08/06/24 08:42 Respiratory Rate 18 08/06/24 08:42 Blood Pressure 156/84 H 08/06/24 08:42 Pulse Oximetry 98 08/06/24 08:42 Lab Data Lab results reviewed: Yes I reviewed the patient's lab results. 08/06/24 10:39 08/06/24 10:39 Labs: Lab Results 08/06/24 08/06/24 Range/Units 10:39 11:35 WBC 6.7 (4.5-10.0) K/mm3 RBC 4.27 (4.2-5.4) M/mm3 Hgb 13.2 (12.0-15.0) g/dL Hct 38.8 (37.0-47.0) % MCV 90.9 (80-100) fl MCH 30.9 (26-34) pg MCHC 34.0 (32-36) g/dl RDW 14.4 (11.5-14.5) % Plt Count 241 (150-375) k/mm3 MPV 9.8 (7.4-10.4) fl Immature Gran % (Auto) 0.3 (0-0.5) % Neut % (Auto) 84.1 H (45.5-73.1) % Lymph % (Auto) 12.1 L (18.3-44.2) % [place] % (Auto) 3.1 (2.6-8.5) % Eos % (Auto) 0.1 (0-4.4) % Baso % (Auto) 0.3 (0.2-1.2) % Lymph # (Auto) 0.81 L (0.9-3.2) K/mm3 [place] # (Auto) 0.2 (0.1-0.6) K/mm3 Eos # (Auto) 0.0 (0-0.3) K/mm3 Baso # (Auto) 0.0 (0.0-0.1) K/mm3 Abs Immat Gran (auto) 0.02 (0.00-0.031) K/mm3 Absolute Neuts (auto) 5.6 (1.3-6.7) K/mm3 Absolute Nucleated RBC 0.000 (0.0-0.012) K/mm3 Nucleated RBC % 0.0 (0.0-0.2) % PT 14.4 (11.1-14.7) Seconds INR 1.1 APTT 23.4 (22.3-36.8) Seconds Sodium 136 L (137-145) mmol/L Potassium 3.2 L (3.4-5.0) mmol/L Chloride 95 L (98-107) mmol/L Carbon Dioxide 30 (22-30) mmol/L Anion Gap 11 (4-12) mmol/L BUN 3 L (7-17) mg/dL Creatinine 0.54 L (0.7-1.0) mg/dL Estim Creat Clear Calc 109 ml/min Estimated GFR > 60 (59 - ) Glucose 106 (65-110) mg/dL Calcium 8.1 L (8.4-10.2) mg/dL Total Bilirubin 0.6 (0.2-1.3) mg/dL AST 25 (14-36) U/L ALT 16 (6-35) U/L Alkaline Phosphatase 101 (38-126) U/L Troponin I < 0.012 (0.000-0.034) ng/mL Total Protein 7.0 (6.3-8.2) g/dL Albumin 4.5 (3.5-5.1) g/dL Lipase < 10 L (23-300) U/L POC Urine HCG, Qual Negative (Negative) Imaging Data Attestation: I personally reviewed and interpreted this imaging study as follows: Radiologist's impression: Impressions Abdomen/Pelvis CT 08/06/24 12:24 Impression: Extensive lymphadenopathy in the retroperitoneum/para-aortic region extending to the marva hepatis and posterior to the pancreas, as detailed above. Findings are is consistent with lymphoma, with extent of disease similar to prior exam.. Associated splenomegaly, which is suspicious for lymphomatous involvement. Vague hypodense area in the right hepatic lobe. Lymphomatous involvement is a consideration given associated findings noted above. Consider pre and postcontrast MR to further evaluate this finding, if it will affect clinical management. Small amount of pelvic ascites, nonspecific. 3 cm ovarian cyst. Discharge Plan Discharge Clinical Impression: Lymphadenopathy, Abdominal pain Patient Disposition: Home Condition: Stable Instructions: Antibiotic Form, Abdominal Pain (ED) Additional Instructions: Please return to the ER with any worsening symptoms. Follow-up with your oncologist as soon as possible. Take all medications as prescribed, including regularly scheduled medications. Patient Language: German Prescriptions: New phenazopyridine [Pyridium] 200 mg tablet 200 mg PO TID Qty: 6 0RF No Action oxycodone-acetaminophen [Percocet] 10-325 mg tablet 1 tablet PO Q4H PRN (Reason: pain) Qty: 5 0RF ondansetron 4 mg tablet,disintegrating 4 mg PO Q6H PRN (Reason: nausea and vomiting) Qty: 20 0RF hydroxyzine HCl 25 mg tablet 25 mg PO TID methylprednisolone 4 mg tablets,dose pack promethazine 25 mg suppository 25 mg RECTAL Q6H PRN (Reason: nausea and vomiting) Qty: 12 0RF ondansetron 4 mg tablet,disintegrating 4 mg PO Q8H PRN (Reason: nausea and vomiting) Qty: 30 0RF oxycodone-acetaminophen [Percocet] 10-325 mg tablet 1 tablet PO Q6H PRN (Reason: pain) Qty: 20 0RF ondansetron 4 mg tablet,disintegrating 4 mg PO Q8H PRN (Reason: nausea and vomiting) Qty: 10 0RF amoxicillin-pot clavulanate 875-125 mg tablet 1 tablet PO Q12H 7 Days Qty: 14 0RF promethazine 25 mg suppository 25 mg RECTAL Q6H PRN (Reason: nausea and vomiting) Qty: 12 0RF megestrol 400 mg/10 mL (40 mg/mL) suspension promethazine [Promethegan] 25 mg suppository RECTAL valacyclovir 500 mg tablet morphine 30 mg tablet hydroxyzine HCl 25 mg tablet ibuprofen 600 mg tablet ondansetron 4 mg tablet,disintegrating pregabalin 50 mg capsule Follow-up/Referrals: UNKNOWN,DOCTOR [Primary Care Provider] - Stand Alone Forms: Work/School Release IP Time of Disposition: 13:36
[2024-08-06] MEDS: SODIUM CHLORIDE 0.9% IV 1,000 ML 999 ML IV CONT (10:49)
[2024-08-06] MEDS: KETOROLAC 30 MG/ML VIAL (*BKC) IV PUSH (10:49)
[2024-08-06] MEDS: ONDANSETRON INJ 4 MG/2 ML VIAL IV PUSH (10:49)
[2024-08-06 10:57] LABS: Basophils Percent Auto 0.3 % (0.2-1.2); Eosinophils Percent Auto 0.1 % (0-4.4); Hematocrit 38.8 % (37.0-47.0); Hemoglobin 13.2 g/dL (12.0-15.0); Immature Granulocyte Absolute 0.02 K/mm3 (0.00-0.031); Immature Granulocyte Percent A 0.3 % (0-0.5); Lymphocytes Absolute Auto 0.81 K/mm3 (0.9-3.2); Lymphocytes Percent Auto 12.1 % (18.3-44.2); Mean Corpuscular Hemoglobin 30.9 pg (26-34); Mean Corpuscular Volume 90.9 fl (80-100); Mean Platelet Volume 9.8 fl (7.4-10.4); Monocytes Absolute Auto 0.2 K/mm3 (0.1-0.6); Monocytes Percent Auto 3.1 % (2.6-8.5); Neutrophils Absolute Auto 5.6 K/mm3 (1.3-6.7); Neutrophils Percent Auto 84.1 % (45.5-73.1); Platelet Count Result 241 k/mm3 (150-375); Red Blood Count 4.27 M/mm3 (4.2-5.4); Red Cell Distribution Width 14.4 % (11.5-14.5); White Blood Count 6.7 K/mm3 (4.5-10.0)
[2024-08-06 10:59] LABS: INR 1.1; Partial Thromboplastin Time 23.4 Seconds (22.3-36.8); Prothrombin Time 14.4 Seconds (11.1-14.7)
[2024-08-06 11:03] LABS: Alanine Aminotransferase 16 U/L (6-35); Albumin Level 4.5 g/dL (3.5-5.1); Alkaline Phosphatase 101 U/L (38-126); Anion Gap 11 mmol/L (4-12); Aspartate Amino Transferase 25 U/L (14-36); Bilirubin,Total 0.6 mg/dL (0.2-1.3); Blood Urea Nitrogen 3 mg/dL (7-17); Calcium 8.1 mg/dL (8.4-10.2); Carbon Dioxide 30 mmol/L (22-30); Chloride 95 mmol/L (98-107); Estimated CRCL calculation 109 ml/min; Estimated Glomerular Filt Rate > 60; Glucose 106 mg/dL (65-110); Potassium 3.2 mmol/L (3.4-5.0); Sodium 136 mmol/L (137-145)
[2024-08-06 11:06] LABS: Lipase < 10 U/L (23-300)
[2024-08-06 11:14] LABS: Troponin I < 0.012 ng/mL (0.000-0.034)
[2024-08-06 12:03] LABS: BEDSIDEPREGUCG Negative (Negative)
[2024-08-06] MEDS: POTASSIUM CHLORIDE 20 MEQ PACKET (FOR LIQUID) 40 MEQ FEED TUBE (13:11)
[2024-08-06] MEDS: PHENAZOPYRIDINE HCL 100 MG TABLET 200 MG PO (13:59)
--- OUTSIDE RECORDS SUMMARY | 2024-08-07 11:17 | XMS_ITS ---
Author Organization [facility] Address [address] [place] [address] Phone Care Team Providers Care Entry Level Buyer Name Role Phone Gabriel Salmeron MD Unavailable [phone] Brooks Sosa MD Unavailable [phone] Provider, None Primary Care Provider UnavailKervin Rubi MD Unavailable [facility] Status:Enrolled (Active) Start date:05/05/2024 Enrollment date:05/05/2024 Related social drivers of health:Social Connections, Tobacco Use, Depression, Stress, Physical Activity, Utilities Continued Care and Services Coordination
--- OUTSIDE RECORDS SUMMARY | 2024-08-07 11:17 | XMS_ITS | Clinical Summary ---
Author Organization [facility] [address] [facility] Address [address] [place] [address] Care Team Providers Care Borematic Operator Name Role Phone Richard Fish NP [...] to complete this topic Insurance Care Teams Borematic Operator Relationship Specialty Start Date End Date Richard Fish NP [address] [place] [address] [place] [address] PCP - General Nurse Practitioner 02/13/24
--- OUTSIDE RECORDS SUMMARY | 2024-08-07 11:17 | XMS_ITS | Referral Summary ---
Author Organization [facility] [address] [facility] Address [address] [place] [address] Care Team Providers Care Cover 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 Name Role Phone Richard Fish NP [...] Plan of Treatment Not on file Insurance [facility] Care Teams Cover 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 Relationship Specialty Start Date End Date Richard Fish NP [address] [facility] [place] [address] PCP - General Nurse Practitioner 02/13/24
--- OUTSIDE RECORDS SUMMARY | 2024-08-07 11:17 | XMS_ITS | Clinical Summary ---
Author Organization [facility] Address [address] [place] [address] Phone Care Team Providers Care In Tube Conversion Technician Name Role Phone Gabriel Salmeron MD Unavailable [phone] Brooks Sosa MD Unavailable [phone] Provider, None Primary Care Provider UnavailKervin Rubi [...] current use Anxiety 05/07/2023 Under care of custodial service 05/07/2023 Overview (05/07/2023): Two previous stays at custodial Child living with her parents Resolved Problems Problem Noted Date Diagnosed Date Resolved Date LRTI (lower respiratory tract infection) 09/09/2023 11/26/2023 Lymphoma 05/07/2023 10/29/2023 Overview (05/21/2023): Resistant to care No show ONC Refusing hospice 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/21/2023): Current cannabis; 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 Hx of custodial time Encounters Date Type Department Care Team Description 08/06/2024 Telephone [facility] [place] [facility] [address] [place] [address] Gabriel Salmeron MD 06/17/2024 11:40 AM CDT - 06/17/2024 12:40 PM CDT Surgery [facility] [address] [place] [address] Kervin Jiang MD REMOVAL OF PORT, LEFT SIDE 06/17/2024 11:39 AM CDT Anesthesia Event [facility] Per[address] [place] [address] Roland Martinez MD [place], Kevin L, FOURCHETTE SEWER, TOMBSTONE ERECTOR HELPER 06/17/2024 8:59 AM CDT - 06/17/2024 1:15 PM CDT Hospital Encounter [facility] Preop/Pacu II [address] [place] [address] Kervin Jiang MD Discharge Disposition: Discharged to home or Selfcare 06/17/2024 Telephone [facility] General Surgery [facility] [address] [address] Kervin Jiang MD Medication Management 06/15/2024 Travel 06/11/2024 10:00 AM DIRECTOR OF EVENTS Office Visit [facility] General [facility] [address] [address] Gabriel Salmeron MD Sanz, Alejandro Federico, MD 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); Encounter for removal of tunneled central venous catheter (CVC) with port Discharge Disposition: Discharged to home or Selfcare 06/10/2024 Travel 05/28/2024 11:00 AM DIRECTOR OF EVENTS Clinical Support [facility] [address] [place] [address] Gabriel Salmeron MD 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 Yes 05/07/2023 Social Connection and Isolation Panel [NHANES] A nswer Date Recorded In a typical week, how many times do you talk on the phone with family, friends, or neighbors? Once a week 05/07/2023 How often do you get together with friends or re latives? Once a week 05/07/2023 How often do you attend spiritism or mandaen serv ices? Never 05/07/2023 Do you belong to any clubs o r organizations such as spiritism groups, unions, fraternal or athletic groups, or [...] Total Score - Questions 1-9 9 06/06 [facility] - Occupational Stress Questionnaire Answer Date [...] place to sleep or slept in a usp (including now)? No 05/07/2023 Sexually Active Control Partners Comments Yes Male Comments Unknown Sex and Gender Information Value Date Recorded Sex Assigned at Female 05/21/2023 11:44 AM DIRECTOR OF EVENTS Legal Sex Female 5:17 PM CDT Gender Identity Female 05/21/2023 11:44 AM DIRECTOR OF EVENTS Sexual Orientation Not on file Last Filed [...] 02/21/2022 HPV/Cotest 02/21/2022 Td Immunization Every 10 Yea rs (Adults With 1 Tdap) 02/07/2032 02/06/2022, 11/05/2020 Respiratory Syncytial Virus (RSV) Immunization (Adult) (1 - 1-dose 75+ series) 02/21/2067 DTaP/Tdap/Td Immunization Discontinued 2021, 11/05/2020 Influenza Immunization Completed 5, 04/02/2022 Human Papillomavirus (HPV) Immunization Aged Out No longer eligible based on patient's age to complete this topic Meningococcal Immunization (ACWY) Aged Out No longer [...] Ready to change Department associated with goal: [facility] Steps to achieve [...] PATHOLOGY SURGICAL Routine 06/17/2024 11:55 AM CDT ME [facility] VAD W/SUBQ PORT/CODING ADVISOR CTR/PRPH INSJ 06/17/2024 11:17 AM CDT ENCOUNTER FOR REMOVAL OF TUNNELED CENTRAL VENOUS CATHETER Special Needs Allergy: Allopurinol, Azithromycin, Codeine, Pecan Extract, Benadryl Hx: Drug & Alcohol abuse 5 3.5 119# POCT URINE HCG () Routine 06/17/2024 9:38 AM CDT from Last 3 Months Results * Pathology Surgical (06/17/2024 11:55 AM CDT) Case Report Surgical Pathology Report Case: [id number] Authorizing Provider: Kervin Jiang, Collected: 06/17/2024 11:55 AM Ordering Location: [facility] Received: 06/18/2024 09:02 AM [facility] Main OR Pathologist: Ishan Escobedo MD Specimen: Foreign Body, PORT FROM LEFT CHEST 06/18/2024 2:46 PM CDT [facility] FINAL DIAGNOSIS Foreign body, port from left chest, removal: - As described grossly. 06/18/2024 2:46 PM CDT [facility] at 1446 CDT Pre-Operative Diagnosis ENCOUNTER FOR REMOVAL OF TUNNELED CENTRAL VENOUS CATHETER 06/18/2024 2:46 PM CDT [facility] Gross Description A. [...] only. KS/sb 06/18/2024 2:46 PM CDT [facility] Other FOREIGN BODY SUBMITTED SPECIMEN / Unknown 06/17/2024 11:55 AM CDT 06/18/2024 9:02 AM CDT Kervin Jiang MD PATHOLOGY/CYTOLOGY OR DERABLES Final Result [facility] [address] [place] [address] * POCT Urine HCG () (06/17/2024 9:38 AM CDT) POC URINE Negative POC URINE CONTROL Environmental Programs Manager Pass Urine 06/17/2024 9:38 AM CDT us Kervin Jiang MD POINT OF CARE TESTING (MANUAL) Final Result from Last 3 Months Insurance [address] [facility] [facility] Care Teams In Tube Conversion Technician Relationship Specialty Start Date End Date Provider, None [place] PCP - General 06/17/24 Gabriel Salmeron MD [address] [place] [address] Consulting Physician Medical Oncology 05/23/23 Brooks Sosa MD [address] [place] [address] Consulting Physician Neurology 01/22/24 Kervin Jiang MD [address] [address] Consulting Physician General Surgery 06/11/24
--- OUTSIDE RECORDS SUMMARY | 2024-08-07 11:17 | XMS_ITS ---
Author Organization [facility] Address [address] [place] [address] Phone Care Team Providers Care Allergist/Immunologist Physician Name Role Phone Gabriel Salmeron MD Unavailable [...] at fpc Child living with her parents Current Treatment [...]
--- OUTSIDE RECORDS SUMMARY | 2024-08-07 11:18 | XMS_ITS | Clinical Summary ---
Author Organization [facility] Address [address] [place] [address] Care Team Providers Care Oracle Architect Name Role Phone None, Provider MD Primary [...] Documents on File Type Date Recorded Patient Cutter Operator Asbestos Shingle Expl anation Legal Documents 05/21/2023 3:56 PM Care Teams Oracle Architect Relationship Specialty Start Date End Date None, Provider, MD PCP - General UNKNOWN PHYSICIAN SPECIALTY 11/19/22
--- OUTSIDE RECORDS SUMMARY | 2024-08-07 11:18 | XMS_ITS | Encounter Summary ---
Author Organization [facility] Address [address] [facility] [address] Care Team Providers Care Machining Manager Name Role Phone Unavailable Primary Care Provider Unavailabl e Encounter Details Date Type Department Care Team (Late st Contact Info) Description 12/19/2022 Lab Requisition [facility] - Pathology Lab [address] [place] [address] Ishan Escobedo MD [address] [address] Illness, unspecified Social History Tobacco [...] CDT) Case Report Surgical Pathology Report Case: [id number] Authorizing Provider: Ishan Escobedo MD Collected: 12/18/2022 09:00 AM Ordering Location: [facility] Care Pathology Lab Received: 12/19/2022 01:25 PM [...] CD10 co-expression. Axillary lymph node, flow cytometry ([id number]): - Poston light chain restricted CD10+ B-cell population detected (~99% of overall events) Also received from [facility] is a peripheral smear showing circulating follicular lymphoma cells with occasional nuclear clefts. The peripheral blood is involved by follicular lymphoma. 12/19/2022 3:33 PM T [facility] PATHOLOGY LAB Clinical History Suspect lymphoma. 12/19/2022 3:33 PM [facility] Materials Received Received are 4 slide(s) and 1 block labeled [id number] along with a copy of the outside pathology report. The materials originate from [facility], [address] [place] [address]. All original materials are returned to the referring institution, along with a copy of our final report. 12/19/2022 3:33 PM [facility] Pathologist Location at [facility] 12/19/2022 3:33 PM T [facility] PATHOLOGY LAB Disclaimer The performance characteristics of all immunohistochemical and indirect immunofluorescence stains (if any) cited in this report were determined by the Histopathology Laboratory of [facility]. Some of these tests were developed [...] attending (teaching) pathologist. 12/19/2022 3:33 PM T [facility] PATHOLOGY LAB Embedded Images 12/19/2022 3:33 PM T [facility] PATHOLOGY LAB Pathology/Cytolo gy BIOPSY OF LYMPH NODE / Unknown 12/18/2022 9:00 AM CDT 12/19/2022 1:25 PM CDT us Ishan Escobedo MD LAB - PATHOLOGY/CYTOLOGY ORDERAB LES Final Result [facility] PATHOLOGY LAB [address] [facility] [phone] documented in this encounter Visit Diagnoses Diagnosis Illness, unspecified documented in this encounter
--- OUTSIDE RECORDS SUMMARY | 2024-08-07 11:18 | XMS_ITS | Clinical Summary ---
[facility] Address [address] [place] [address] Care Team Providers Care Vp Genetic Name Role Phone Unavailable Primary Care Provider [...] Pain, Mild. Active naloxone (NARCAN) 4 mg/spray [place], Non-Aerosol EMERGENCY USE ONLY: Administer 1 spray [...] Comments Blood Pressure 109/66 04/17/2023 8:40 AM [employer] Pulse 111 04/17/2023 8:40 AM [employer] Temperature 36.6 C (97.9 F) 04/17/2023 8:40 AM [employer] Respiratory Rate 10 04/17/2023 8:40 AM [employer] Oxygen Saturation 92% 03/27/2023 11:06 AM [employer] Inhaled Oxygen Concentration - - Weight 51.3 kg (113 lb) 04/17/2023 8:40 AM [employer] Height 162.6 cm (5' 4 ) 03/24/2023 6:27 PM [employer] Body Mass Index 19.4 03/24/2023 6:27 PM [employer] Plan of Treatment Health Maintenance Due Date [...] Advance Directives For more information, please contact: [phone] * Full Code (Latest Code Status on File) Date Activated Date Inactivated Comments 03/25/2023 1:09 AM 03/26/2023 3:29 PM
--- OUTSIDE RECORDS SUMMARY | 2024-08-07 11:18 | XMS_ITS | Data Portability ---
Author Organization [facility] [place] Address [address] [place] [address] Assessment Encounter Date Assessment Date Assessment LastModified by Organization Details LastModified Time 07/29/2024 07/29/2024 Annual gynecological exam performed. Patient will come back in a year unless there are new symptoms. Not available 07/29/2024 11:38:03 Plan of Treatment Reminders Order Date Submit Date Provider Last Modified By Organization Details Last Modified Time Details Appointments None recorded. Lab hbcab (hepatitis B core Ab) igm, serum 2024 025 [facility] (Lab), [address] [place], [address], 5 11:25:14 HBsAg (hepatitis B surface Ag), serum 2024 025 [facility] (Lab), [address] [place], [address], 5 11:25:14 hepatitis C virus Ab, serum 2024 025 [facility] (Lab), [address] [place], [address], 5 11:25:13 HIV 1+2 AB + HIV 1 p24 Ag, qualitative immunoassay , serum 2024 025 [facility] (Lab), [address] [place], [address], 5 11:25:13 RPR (rapid plasma reagin), serum 2024 025 [facility] (Lab), [address], [place], [address], 5 11:25:14 pap, IG + HR HPV - HPV regardless but if HPV is positive need subtyping 16,18/45add STI to pap GC/CT/Trich 2024 025 [facility] (Lab), [address] [facility] [address] [facility], [place], [address], 5 13:59:16 culture, urine 2024 025 [facility] (Lab), [address] [facility], [place], [address], 5 13:59:18 Referral None recorded. Procedures None recorded. Surgeries None recorded. Imaging MAMMO, diagnostic, digital, bilateral [address] [place] [address] Imaging, [address], [place], [address], 12:08:04 US, breast, bilateral, complete [address] Imaging, [address], [place], [address], 12:08:04 Medication Orders None recorded. Patient TargetsNo targets [...] of expos ure to HCV. Not Available [facility] (Lab) [address] , [place], [address], 07/30/2024 11:25:13 07/30/19 25 07/29/2024 HIV 1/2 ANTIG EN/AN TIBOD Y, REFLE X CONFI RMATI ON HIV antigen/anti body Nonrea ctive nonrea ctive HIV-1 antig en and HIV-1 /HIV- 2 antib odies were not detec gabriella. No labor atory evide nce of HIV infec tion. Not Available [facility] (Lab) [address] [facility], [place], [address], 07/30/2024 11:25:13 07/30/19 25 07/29/2024 HEPAT ITIS B SURFA CE ANTIG EN hepatitis B surface antigen Non-re active non-re active This assay was perfo rmed using [employer] ratio n reage nts and test kits. Value s obtai maxim with other assay metho ds or kits canno t be used inter caro eably . Not Available [facility] (Lab) [address] [facility], [place], [address], 07/30/2024 11:25:14 07/30/19 25 07/29/2024 RPR SCREE N, REFLE X TITER /CONF IRMAT ION RPR qualitative Nonrea ctive nonrea ctive Not Available [facility] (Lab) [address] [facility], [place], [address], 07/30/2024 11:25:14 07/30/19 25 07/29/2024 HEPAT ITIS B CORE, IGM hepatitis B core IgM antibody Non-re active non-re active IgM anti- HBc not detec gabriella. Does not exclu de the possi bilit y of expos ure to or infec tion with HBV. Test Perfo rmed by: [facility] [address] [place] [address] Not Available [facility] (Lab) [address] [place], [address], 07/30/2024 11:25:14 07/30/19 25 07/29/2024 IMAGE GUIDE [...] epith elial Naty muñiz or Rinku jain ([facility]) . Elect apple velazquez d by [...] as clini nati zamarripa nted. Not Available [facility] (Lab) [address] , [place], [address], 08/03/2024 13:59:16 07/30/19 25 07/29/2024 TRICH OMONA S VAGIN CHALO (RRNA ) trichomonas vaginalis ribosomal RNA (rrna) Negati ve negati ve Not Available [facility] (Lab) [address] [place], [address], 08/03/2024 13:59:17 07/30/19 25 07/29/2024 CT/GC (FAREED) , THINP REP VIAL chlamydia trachomatis, PCR Negati ve negati ve Not Available [facility] (Lab) [address] [place], [address], 08/03/2024 13:59:17 07/30/19 25 07/29/2024 CT/GC (FAREED) , THINP REP VIAL neisseria gonorrhoeae, PCR Negati ve negati ve Not Available [facility] (Lab) [address] [facility], [place], [address], 08/03/2024 13:59:17 07/30/19 25 07/29/2024 CULTU RE: URINE result report SEE RESULT S BELOW abnormal Test: Cultu re: Urine Speci men Sourc e: Urine - Clean Catch Speci men Type: Urine Speci men Date: 2024 1446 Resul t Date: 2024 0713 Resul t Statu s: Final resul t Ramakrishnaor mal: Yes Jacoby garcia Lab: [facility] [address] [facility] [address] Tel: CULTU RE ----- ----- ----- --- [...] <=0.5 ug/mL Susce ptibl e Not Available [facility] (Lab) [address], [place], [address], 08/03/2024 13:59:18 Result Notes None recorded. Procedures Surgical History Date Name Laterality Status Provider Name and Address Organization Details Recorded Time 11/06/19 22 chemotherapy completed [facility] 07/29/2024 12:08:18 05/08/19 15 medical termination of completed [facility] 07/29/2024 12:07:34 05/08/19 14 incision and drainage of breast abscess completed [facility] 07/29/2024 12:07:14 Imaging Results None recorded. Procedure Notes None recorded. Medical Equipment None Reported. Allergies Allergen ID Allergen Name Allergen Category Reaction Reaction Severity Criticality Documentation Date Start Date Code Code System Note Provider Name and Address Organization Details Recorded Time 98294 pecan nut food Not available Not available Not available 07/29/2024 79383 UNK [facility] 11:57:32 64744 Benadryl medicatio n Not available Not available Not available 07/29/202476363 7 RxNorm [facility] 11:57:43 20079 azithromy louis medicatio n Not available Not available Not available 07/29/2024 48099 RxNorm [facility] 11:58:11 Medications Name Sig Start Date [...] Updated DateTime 07/29/2024 157.48 cm 21.8 kg/m2 49023.49 g 119 mm[Hg] 81 mm[Hg] Lety Khan [facility] 11:56:58 Social History Question Answer Notes LastModified by Organizat ion Details LastModified Time Do You Have An Advance Directive? No [email or web address] Information n ot available 07/29/2024 What Is Your Level Of Alcohol Consumption? Occasional [email or web address] Information not available 07/29/2024 Are You Blind Or Do You Have Difficulty Seeing? No [email or web address] Information n ot available 07/29/2024 What Is Your Level Of Caffeine Consumption? Occasional [email or web address] Information not available 07/29/2024 How Much Tobacco Do You Chew? None [email or web address] Information not available 07/29/2024 In The 14 Days Before Symptom Onset, Have You Had Close Contact With A Laboratory-confirm ed COVID-19 While That Case Was Ill? No [email or web address] Information n ot available 07/29/2024 In The 14 Days Before Symptom Onset, Have You Had Close Contact With A Person Who Is Under Investigation For COVID-19 While That Person Was Ill? No [email or web address] Information not available 07/29/2024 Have You Been To An Area Known To Be High Risk For COVID-19? No [email or web address] Information not available 07/29/2024 Are You Deaf Or Do You Have Serious Difficulty Hearing? No [email or web address] Information not available 07/29/2024 What Type Of Diet Are You Following? REGULAR [email or web address] Information n ot available 07/29/2024 What Is The Highest Grade Or Level Of School You Have Completed Or The Highest Degree You Have Received? KA97042-9 [email or web address] Information not available 07/29/2024 What Is Your Occupation? None [email or web address] Information not available 07/29/2024 Are There Any Guns Present In Your Home? No [email or web address] Information not available 07/29/2024 Do You Use Protection During Sex? No Information not available 07/29/2024 Do You Use Your Seat Belt Or Car Seat Routinely? No [email or web address] Information not available 07/29/2024 Do You Have Smoke And Carbon Monoxide Detectors In Your Home? Yes [email or web address] Information not available 07/29/2024 At What Age Did You Start Smoking Tobacco? 21 [email or web address] Information not available 07/29/2024 How Much Tobacco Do You Smoke? 1 PPD Information not available 07/29/2024 Do You Feel Stressed (tense, Restless, Nervous, Or Anxious, Or Unable To Sleep At Night)? [id number] Information not available 07/29/2024 Do You Use [...] SNOMED-CT Code Diagnosis ICD10 Code Diagnosis Note [id number] ANIA Reeves [place] [address] [address] 07/29/2024 11:33:28 07/30/2024 10:26:56 Gynecologic examination 96507741 Z01.419 WWEBC - declinedPa p - done [...] advised. Questions answered. Venereal d isease screening 478580894 Z11.3 Sexually t ransmitted infectious disease 9994151 A64 Breast lump 47592120 N63 .0 order given for bilateral diagnostic mammogram and u/s Health Concerns Section Related Observation LastModified by Organization Detai ls LastModified Time None Recorded Concern Status LastModified by Organization Details LastModified Time None Recorded Advance Directives Directive N: Payers Encounter Date Sequence Insurance Name Policy Number Policy Woods Covered Member ID Woods Member ID Guarantor Name 07/29/2024 1 [facility] (MEDICAID HMO) [id number] Soha Marrero [id number] Soha Marrero Notes Date Note Type Note [...] lymphoma, in remission since 2023 ANIA Reeves [address], [place], [address], [place] [facility] 07/30/2024 09:32:49 OBGyn Episode Ob Episode Information Episode Created Date Number of Fetuses Patient Bloodtype Patient rh Status Prepregnancy Weight lbs Domestic Partner Domestic Partner Phone Father Name Wood Model Maker Status 07/30/19 1 CLOSED Fetus Data First Name Last Name Admitted to NICU Weight (g) Sex Living Outcome Pediatric Complications Fetus ID Race Codes Race Delivery Type , Induced 52894 Fly Calculation Initial Fly Date Initial Exam [...] Domestic Partner Domestic Partner Phone Father Name Wood Model Maker Status 07/30/19 1 CLOSED Fetus Data First Name Last Name Admitted to NICU Weight (g) Sex Living Outcome Pediatric Complications Fetus ID Race Codes Race Delivery Type , Spontane ous 64645 Fly Calculation Initial Fly Date Initial Exam [...] Domestic Partner Domestic Partner Phone Father Name Wood Model Maker Status 07/30/19 1 CLOSED Fetus Data First Name Last Name Admitted to NICU Weight (g) Sex Living Outcome Pediatric Complications Fetus ID Race Codes Race Delivery Type F Prematur e 11333 Vaginal Delivery Fly Calculation Initial Fly Date [...]
--- OUTSIDE RECORDS SUMMARY | 2024-08-07 11:18 | XMS_ITS | Patient Health Record ---
Author Organization [facility] Address [address] [place] [address] Care Team Providers Care Barrel Loader Name Role Phone NavyanilaRichard Primary Care Provider Satya Fernandez Unavailable [phone] Mandi Love Unavailable [phone] Evie Epps Unavailable [phone] Minerva Peacock Unavailable [phone] Allergies Allergen (clinical drug ingredient) Drug/Non Drug Allergy documented on EMR Reaction Allergy Type Onset Date Status azithromycin Zithromax Unknown Drug Allergy Acti ve codeine Codeine Unknown Drug Allergy Active Results Component Value Reference Range Notes 12 Panel Urine Drug Screen Reviewed date:07/12/2024 [...] neg BUP pos Reason For Referral Reason RECURRENT ABSCESS RI GHT PERINEUM Diagnosis 1 Abscess (L02.91) Referral Organization [facility] Referring Provider First Name Satya Referring Provider Last Name Rebecca Referring Provider Speciality Internal M edicine Referred Provider Specialty Surgery General Notes GUERO Song Valeri e A 02/13/2024 09:35:39 AM > Referral to [facility] Colon and Rectal Surgery. Letter to pt. Clinical Notes [facility] Colon and Rectal Surgery, [address] [facility], Phone#[phone], Referral Priority Routine Reason IMPACTED MOLAR AND S EVERE CARIES RIGHT LOWER JAW THAT DENTIST DECLINED TO TREAT Diagnosis 1 Dental caries (K02.9 ) Referral Organization [facility] Referring Provider First Name Satya Referring Provider Last Name Rebecca Referring Provider Speciality Internal M edicine Referred Provider Specialty Dental Gener al Practice General Notes GUERO Song Valeri e A 02/13/2024 09:57:12 AM > Referral to [facility] Dentistry. Letter to pt. Clinical Notes [facility] Adult Dentist, [address] [place] [address], , Referral Priority Routine Reason anxiety, shanna Diagnosis 1 Opioid use disorder (F11.99) Referral Organization [facility] Referring Provider First Name Minerva Referring [...] phone, visiting friends or family, going to islam or club meetings) More than 5 times a week How stressed are you? Stress is when someone feels tense, nervous, anxious, or can\t sleep at night because their mind is troubled A little bit In the past year have you sp ent more than 2 nights in a row in a shelter, retirement, shelter center, or juvenile correctional facility? 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) Active confirmed Problem Opioid use disorder (8625666758) Opioid use disorder (F11.99) Active confirmed Vital Signs Heart Rate 93 /min 07/08/2024 Temperature 97.7 degrees Fahrenheit 07/08/2024 Respiratory Rate 18 /min 07/08/2024 Blood pressure diastolic 76 mm Hg 07/08/2024 Oximetry 96 % 07/08/2024 Height 62 in 07/08/2024 Blood pressure systolic 118 mm Hg 07/08/2024 Weight 103.6 lbs 07/08/2024 BMI 18.95 kg/m2 07/08/2024 Encounters Encounter Location Date Provider Diagnosis [address] [place] [address] 12/19/2023 Richard Fish Opioid use disorder F11.99 and Nicotine dependence, unspecified, uncomplicated F17.200 [place] [address] [place] [address] 01/01/2024 Jenia Heavens Opioid use disorder F11.99 and Nicotine dependence, unspecified, uncomplicated F17.200 [address] [place] [address] 01/02/2024 Satya Fernandez Abscess L02.91 ; Dental caries K02.9 ; Lymphoma of lymph nodes of multiple regions, unspecified lymphoma type C85.98 ; Opioid use disorder F11.99 and Nicotine dependence, unspecified, uncomplicated F17.200 [address] [place] [address] 01/16/2024 Satya Fernandez Asthma exacerbation J45.901 ; Mild intermittent asthma without complication J45.20 and Nicotine dependence, unspecified, uncomplicated F17.200 [address] [place] [address] 01/29/2024 Jenia Heavenila Opioid use disorder F11.99 and Tobacco use disorder F17.[address] [place] [address] 05/13/2024 Minerva Mcallistereliezer Patient underweight R63.6 ; Opioid use disorder F11.99 ; Non-tobacco user Z78.9 and Nutritional counseling Z71.3 [address] [place] [address] 05/27/2024 Jenia Heavens Opioid use disorder F11.99 and Nicotine dependence, unspecified, uncomplicated F17.200 [address] [address] [place] [address] 07/08/2024 Jenia Heavens Opioid use disorder F11.99 and Nicotine dependence, unspecified, uncomplicated F17.200 Assessments Encounter Date Diagnosis (ICD Code) Assessment Notes Treatment Notes Treatment Clinical Notes Section Notes 01/02/2024 Dental caries (ICD-10 - K02.9) 01/02/2024 Abscess (ICD-10 - L02.91) BASE OF RIGHT BUTTOCK IN PERINEUM. AREA CLEANED WITH ALCOHOL AND INCISED WITH #15 BLADE. SMALL AMOUNT BLOOD OBTAINED. SHE TOLERATED WELL. GAUZE AND TAPE APPLIED. TO CHANGE DAILY. DISCUSSSED NEED FOR ANTIBX, SURGICAL CONSULTATION, ANALGESIC, HEAT. CALL IF WORSENING. ADDENDUM: SUBSTITUTED CIPRO FOR LEVAQUIN DUE TO PHARMACY STOCK ISSUES. 01/29/2024 Tobacco use disorder (ICD-10 - F17.200) 01/29/2024 Opioid use disorder (ICD-10 - F11.99) 05/27/2024 Nicotine dependence, unspecified, uncomplicated (ICD-10 - F17.200) 05/27/2024 Opioid use disorder (ICD-10 - F11.99) 01/01/2024 Opioid use disorder (ICD-10 - F11.99) 12/19/2023 Nicotine dependence, unspecified, uncomplicated (ICD-10 - F17.200) 12/19/2023 Opioid use disorder (ICD-10 - F11.99) 05/13/2024 Patient underweight (ICD-10 - R63.6) 07/08/2024 Opioid use disorder (ICD-10 - F11.99) 05/13/2024 Opioid use disorder (ICD-10 - F11.99) 01/16/2024 Asthma exacerbation (ICD-10 - J45.901) NEBULIZER TREATMENT COMPLETED WITH 2.5 MG ALBUTEROL AND PATIENT TOLERTED WELL, FELT MUCH BETTER AFTER TREATMENT. 01/16/2024 Mild intermittent asthma without complication (ICD-10 - J45.20) 01/16/2024 Nicotine dependence, unspecified, uncomplicated (ICD-10 - F17.200) 01/01/2024 Nicotine dependence, unspecified, uncomplicated (ICD-10 - F17.200) 05/13/2024 Non-tobacco user (ICD-10 - Z78.9) 07/08/2024 Nicotine dependence, unspecified, uncomplicated (ICD-10 - [...] self-administe r their own oral medications per [place] Protocol. 07/08/2024 Other Patient agrees to take medication as prescribed. Discussed medication side effects, adverse effects, risks, benefits, as well as interactions. Encouraged non-use of opioids. Has naloxone. Recommended participation in recovery groups and/or counseling services. May contact office with questions or concerns. Patient may self-administe r their own medications or may self-administe r their own oral medications per [place] Protocol. Plan Of Treatment No Information Insurance Providers Payer Name Payer Address Payer Phone Subscriber Number Group Number Insured Name Patient Relationship to Insured Coverage Start Date Coverage End Date [facility] [address] [place] [address] [id number] Soha Marrero Self - patient is the insured 2 Medical (General) History Medical History History ICD Code Bipolar 1 Disorder Alcohol Use Disorder Surgical History Surgery Date(Month/Year) Ectopic Open Chest Surgery Chemo Port 2022 Hospitalization History Reason Date(Month/Year) Aimeer joseluis
--- OUTSIDE RECORDS SUMMARY | 2024-08-07 11:18 | XMS_ITS | Encounter Summary ---
Author Organization [facility] Address [address] [place] [address] Care Team Providers Care Human Resources Project Manager Name Role Phone Unavailable Primary Care Provider Unavailabl e Encounter Details Date Type Department Care Team (Late st Contact Info) Description 12/18/2022 Lab Requisition [facility] - Pathology Lab [address] [place] [address] Ishan Escobedo MD [address] [place] [address] Generalized enlarged lymph nodes Social History [...] AM CDT) Case Report Flow Cytometry Case: [id number] Authorizing Provider: Ishan Escobedo MD Collected: 12/18/2022 09:00 AM Ordering Location: [facility] Care Pathology Lab Received: 12/18/2022 03:11 PM Pathologist: Giovanni Chow MD Specimen: Axillary Lymph Node, RIGHT 12/18/2022 5:15 PM CDT [facility] Final Diagnosis Axillary lymph node, flow cytometry: - [place] light chain restricted CD10+ B-cell population detected (~99% of overall events) 12/18/2022 5:15 PM CDT [facility] Flow Cytometry Interpretation Viability: 87%. B-cells: monoclonal, kappa-restricted, expressing CD19, CD20, and CD10. T-cells: not increased, no immunophenotypic aberrancy. A cytospin prepared from the flow cytometry specimen has been reviewed for water quality manager purposes. 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 Histologic slides are pending for final subclassification. 12/18/2022 5:[address] [facility] Flow Cytometry Results Differential Result Comment Flow Cell Count /uL 9,000 Total Viability % 87.0 Lymphocytes % 99 Dim CD45 Region % 0 Monocytes % 0 Granulocytes % 1 12/18/2022 5:[address] [facility] Reason for test Generalized enlarged lymph nodes 785.6 12/18/2022 5:[address] [facility] Client Specimen ID # [id number] 12/18/2022 5:[address] [facility] Number of markers 16 were performed. A-2 Flow CD3 A-4 Flow CD10 A-6 Flow CD20 A-7 Flow CD23 A-12 Flow CD2 A-13 Flow CD4 A-16 Flow CD1a A-3 Flow CD5 A-5 Flow CD19 A-8 Flow CD34 A-9 Flow CD45 A-14 Flow CD7 A-15 Flow CD8 A-17 Flow CD30 A-10 [place]+CD19+ A-11 Lambda+CD19+ 12/18/2022 5:[address] [facility] Pathologist Location at [facility] 12/18/2022 5:[address] [facility] Disclaimer Test performed at [facility], [address] [place] [address], [address]. *The established laboratory minimum viability is 70%. [...] PATHOLOGY LAB Embedded Images 5:15 PM CDT [facility] Pathology/Cytolo gy AXILLARY LYMPH NODE STRUCTURE / Unknown 12/18/2022 9:00 AM CDT 12/18/2022 3:11 PM CDT us Ishan Escobedo MD LAB - PATHOLOGY/CYTOLOGY ORDERAB LES Final Result [facility] [address] [phone] documented in this encounter Visit Diagnoses Diagnosis Generalized enlarged lymph nodes Enlargement of lymph nodes documented in this encounter
--- OUTSIDE RECORDS SUMMARY | 2024-08-07 11:18 | XMS_ITS | Clinical Summary ---
Author Organization [facility] Address [address] [place] [address] Care Team Providers Care Forecast Analyst Name Role Phone Unavailable Primary Care Provider Unavailabl e Source Comments [facility] [employer],non-owned Affiliates and Associated Physician Practices is amultiple site organization consisting of ambulatory clinics and hospital sitesin [place], [place], [place] and [place]. This disclosure is being madepursuant to the Care Everywhere program and may not contain all information available regarding this patient. Last updated 17.[facility] Social History Tobacco Use Types Packs/Day Years [...] patient's age to complete this topic Insurance [address] [address]
--- OUTSIDE RECORDS SUMMARY | 2024-08-07 11:18 | XMS_ITS | CONTINUITY OF CARE DOCUMENT ---
Author Name christopher white Address Unknown Organization [facility] Address [address] [place] [address] [address] [place] [address] Phone [phone] Care Team Providers Care Gre Tutor Name Role Phone Randy Armstrong MD Unavailable Randy Armstrong MD Unavailable [phone] INSURANCE PROVIDERS Payer name Policy type / Coverage type [place] red alliance party ID [place] MEDICAID Medicaid [id number]
--- OUTSIDE RECORDS SUMMARY | 2024-08-07 11:27 | XMS_ITS | CONTINUITY OF CARE DOCUMENT ---
Author Name christopher white Address Unknown Organization [facility] Address [address] [place] [address] [address] [place] [address] Phone [phone] Care Team Providers Care Bat Person Name Role Phone Randy Armstrong MD Unavailable [phone] Randy Armstrong MD Unavailable [phone] INSURANCE PROVIDERS Payer name Policy type / Coverage type [place] red green party ID [place] MEDICAID Medicaid [id number]
== END 2024-08-06 13:57 | disposition home or self-care (01) ==
PROVIDERS: Emergency Provider Registered Nurse
DX: R10.30 Lower abdominal pain, unspecified (principal); R10.11 Right upper quadrant pain; R59.1 Generalized enlarged lymph nodes; C85.90 Non-Hodgkin lymphoma, unspecified, unspecified site; F31.9 Bipolar disorder, unspecified; F41.9 Anxiety disorder, unspecified; F17.210 Nicotine dependence, cigarettes, uncomplicated; Z86.14 Personal history of Methicillin resistant Staphylococcus aureus infection; Z90.79 Acquired absence of other genital organ(s); Z79.899 Other long term (current) drug therapy; N83.201 Unspecified ovarian cyst, right side; R16.1 Splenomegaly, not elsewhere classified
CPT/HCPCS: 36415; 74177; 80053; 81025; 83690; 84484; 85025; 85610; 85730; 93005; 96361; 96374; 96375; 99284; A9270; J1885; J2405; J7030; Q9967

== ENCOUNTER 2024-09-03 16:01 | Emergency (ER) | payer OTHER, SELFPAY ==
--- OUTSIDE RECORDS SUMMARY | 2024-09-03 16:02 | XMS_ITS | CONTINUITY OF CARE DOCUMENT ---
Author Name christopher white Address Unknown Organization [facility] Address [id number] [place] [address] [address] [place] [address] Phone [phone] Care Team Providers Care Formulation Scientist Name Role Phone Randy Armstrong MD Unavailable Randy Armstrong MD Unavailable INSURANCE PROVIDERS Payer name Policy type / Coverage type [place] red democrat ID [place] MEDICAID Medicaid [id number]
--- OUTSIDE RECORDS SUMMARY | 2024-09-03 16:02 | XMS_ITS | Clinical Summary ---
Author Organization [place] [id number] [facility] Address [address] [place] [address] Care Team Providers Care Operations Research Analyst Name Role Phone Richard Fish NP Primary [...] the tongue daily 2 Film 4 Active Encounters Date Type Department Care Team Description 08/23/[address] [address] Hannah Wilder, GUERO Scheduling Appointments 08/12/[address] [address] Hannah Wilder, GUERO Scheduling Appointments from Last 3 Months Immunizations Immunization Administration Dates Next Due Tdap [...] 2:02 PM CDT Height 162.6 cm (5' 4) 09/28/2023 7:04 PM CDT Body Mass Index [...] risk series) 12/25/2020 11/27/2020, 11/06/2020 Influenza Vaccine (Season Ended) 2024 04/02/2022 DTaP/Tdap/Td Vaccine (3 - Td or Tdap) 02/07/2032 02/06/2022, 11/05/2020 HPV Vaccines Aged Out No longer eligi ble based on patient's age to complete this topic Insurance [facility] Care Teams Operations Research Analyst Relationship Specialty Start Date End Date Richard Fish NP [address] [place] [address] [place] [address] PCP - General Nurse Practitioner 02/13/24
--- OUTSIDE RECORDS SUMMARY | 2024-09-03 16:02 | XMS_ITS | Referral Summary ---
Author Organization [place] [address] [facility] Address [address] [place] [address] Care Team Providers Care Flooring Grader Name Role Phone Richard Fish NP Primary Care Provider Encounters Date Type Department Care Team Description 08/23/[address] [address] Hannah Wilder, GUERO Scheduling Appointments 08/12/[address] [address] Hannah Wilder, GUERO Scheduling Appointments from Last 3 Months Allergies Active Allergy Reactions Criticality Noted Date [...] Plan of Treatment Not on file Insurance [facility] Care Teams Flooring Grader Relationship Specialty Start Date End Date Richard Fish NP [address] [place] [address] [place] [address] PCP - General Nurse Practitioner 02/13/24
--- OUTSIDE RECORDS SUMMARY | 2024-09-03 16:02 | XMS_ITS | Clinical Summary ---
Author Organization [facility] Address [address] [place] [address] Phone Care Team Providers Care Computer Aide Name Role Phone Gabriel Salmeron MD Unavailable Brooks Sosa MD Unavailable Provider, None Primary Care Provider UnavailKervin Rubi MD Unavailable [phone] Allergies Active Allergy Reactions Criticality Noted Date [...] current use Anxiety 05/07/2023 Under [facility] of [facility] service 05/07/2023 Overview (05/07/2023): Two previous [facility] Child living with her parents Resolved Problems Problem Noted Date Diagnosed Date Resolved Date LRTI (lower respiratory tract infection) 09/09/2023 11/26/2023 Lymphoma 05/07/2023 10/29/2023 Overview (05/21/2023): Resistant to care No show ONC Refusing hospice 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/21/2023): Current cannabis; 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 [facility] time Encounters Date Type Department Care Team Description 08/06/2024 Telephone [facility] [address] [place] [address] Gabriel Salmeron MD 06/17/2024 11:40 AM CDT - 06/17/2024 12:40 PM CDT Surgery [facility] Periop [address] [place] [address] Kervin Jiang MD REMOVAL OF PORT, LEFT SIDE 06/17/2024 11:39 AM CDT Anesthesia Event [facility] [address] [place] [address] Roland Martinez MD [place], Kevin L, WINDOW DECORATOR, RADIOLOGY SPECIAL PROCEDURE TECH 06/17/2024 8:59 AM CDT - 06/17/2024 1:15 PM CDT Hospital [facility] Preop/Pacu II [address] [place] [address] Kervin Jiang MD Discharge Disposition: Discharged to home or Selfcare 06/17/2024 Telephone [facility] [address] Kervin Jiang MD Medication Management 06/15/2024 Travel 06/11/2024 10:00 AM WORK STUDY STUDENT Office Visit [facility] [address] Gabriel Salmeron MD Sanz, Alejandro Federico, MD 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); Encounter for removal of tunneled central venous catheter (CVC) with port Discharge Disposition: Discharged to home or Selfcare 06/10/2024 Travel from Last 3 Months Immunizations Immunization Administration Dates Next Due Influenza Vaccine, Quadrivalent, PF 04/02/2022 TDAP Vaccine 02/06/2022,11/05/2020 Family History Medical History Relation Name Comments No Known Problems Father Cancer Mother Osteoarthritis Mother Relation Name Status Comments Brother Alive Father Alive Mother Alive Social History Tobacco Use Types Packs/Day Years Used Date Smoking Tobacco: Every Day Cigarettes 1 14.4 Started: 04/07/2010 Passive Smoke Exposure: Current Smokeless Tobacco: Never Tobacco Cessation:Ready to Q uit: Yes; Counseling Given: Yes Alcohol Use Standard Drinks/Week Comments Yes 2 (1 standard drink = 0.6 oz pur e alcohol) occasional C Utilities Answer Date Recorded In the past 12 months has th e electric, gas, oil, or water company threatened to shut off services in your home? Yes 05/07/2023 Social Connection and Isolation Panel [NHANES] A nswer Date Recorded In a typical week, how many times do you talk on the phone with family, friends, or neighbors? Once a week 05/07/2023 How often do you get together with friends or re latives? Once a week 05/07/2023 How often do you attend anabaptist or zoroastrian serv ices? Never 05/07/2023 Do you belong to any clubs o r organizations such as anabaptist groups, unions, fraternal or athletic groups, or [...] Total Score - Questions 1-9 9 06/06 [facility] [place] of Occupat ional Health - Occupational Stress Questionnaire Answer Date Recorded [...] place to sleep or slept in a residential (including now)? No 05/07/2023 Sexually Active Control Partners Comments Yes Male Comments Unknown Sex and Gender Information Value Date Recorded Sex Assigned at Female 05/21/2023 11:44 AM WORK STUDY STUDENT Legal Sex Female 5:17 PM CDT Gender Identity Female 05/21/2023 11:44 AM WORK STUDY STUDENT Sexual Orientation Not on file Last Filed [...] 9:21 AM CDT Height 161.3 cm (5' 3.5) 06/17/2024 9:21 AM CDT Body Mass Index [...] Immunization Discontinued 2021, 11/05/2020 Influenza Immunization Completed , 04/02/2022 Human Papillomavirus (HPV) Immunization Aged Out [...] Ready to change Department associated with goal: [facility] Steps to achieve goal: [...] PATHOLOGY SURGICAL Routine 06/17/2024 11:55 AM CDT [place] [facility] VAD W/SUBQ PORT/RADIO DIRECTOR CTR/PRPH INSJ 06/17/2024 11:17 AM CDT ENCOUNTER FOR REMOVAL OF TUNNELED CENTRAL VENOUS CATHETER Special Needs Allergy: Allopurinol, Azithromycin, Codeine, Pecan Extract, Benadryl Hx: Drug & Alcohol abuse 5 3.5 119# POCT URINE HCG () Routine 06/17/2024 9:38 AM CDT from Last 3 Months Results * Pathology Surgical (06/17/2024 11:55 AM CDT) Case Report Surgical Pathology Report Case: [id number] Authorizing Provider: Kervin Jiang, Collected: 06/17/2024 11:55 AM Ordering Location: [facility] Received: 06/18/2024 09:02 AM [facility] Main OR Pathologist: Ishan Escobedo MD Specimen: Foreign Body, PORT FROM LEFT CHEST 06/18/2024 2:46 PM CDT [facility] FINAL DIAGNOSIS Foreign body, port from left chest, removal: - As described grossly. 06/18/2024 2:46 PM CDT [facility] at 1446 CDT Pre-Operative Diagnosis ENCOUNTER FOR REMOVAL OF TUNNELED CENTRAL VENOUS CATHETER 06/18/2024 2:46 PM CDT [facility] Gross Description A. PORT FROM [...] only. [place]/sb 06/18/2024 2:46 PM CDT [facility] Other FOREIGN BODY SUBMITTED SPECIMEN / Unknown 06/17/2024 11:55 AM CDT 06/18/2024 9:02 AM CDT Kervin Jiang MD PATHOLOGY/CYTOLOGY OR DERABLES Final Result [facility] [address] [place] [address] * POCT Urine HCG () (06/17/2024 9:38 AM CDT) POC URINE Negative POC URINE CONTROL Plastics Spreading 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 Pass Urine 06/17/2024 9:38 AM CDT Kervin Jiang MD POINT OF CARE TESTING (MANUAL) Final Result from Last 3 Months Insurance MEDICAID [facility] Care Teams Computer Aide Relationship Specialty Start Date End Date Provider, None [place] PCP - General 06/17/24 Gabriel Salmeron MD [address] [place] [address] Consulting Physician Medical Oncology 05/23/23 Brooks Sosa MD [address] [place] [phone] Consulting Physician Neurology 01/22/24 Kervin Jiang MD [address] [phone] Consulting Physician General Surgery 06/11/24
--- OUTSIDE RECORDS SUMMARY | 2024-09-03 16:02 | XMS_ITS ---
Author Organization [facility] Address [address] [place] [address] Phone Care Team Providers Care Heel Buffer Name Role Phone Gabriel Salmeron MD Unavailable Brooks Sosa MD Unavailable [phone] Provider, None Primary Care Provider UnavailKervin Rubi [...] care facility Child living with her parents Current Treatment [...]
--- OUTSIDE RECORDS SUMMARY | 2024-09-03 16:02 | XMS_ITS ---
Author Organization [facility] Address [address] [place] [address] Phone Care Team Providers Care Consulting Engineer Name Role Phone Gabriel Salmeron MD Unavailable [phone] Brooks Sosa MD Unavailable [phone] Provider, None Primary Care Provider UnavailKervin Rubi MD Unavailable [facility] Status:Enrolled (Active) Start date:05/05/2024 Enrollment date:05/05/2024 Related social drivers of health:Social Connections, Tobacco Use, Depression, Stress, Physical Activity, Utilities Continued Care and Services Coordination
--- OUTSIDE RECORDS SUMMARY | 2024-09-03 16:03 | XMS_ITS | Clinical Summary ---
Author Organization [facility] Address [address] [place] [address] Care Team Providers Care Rn Wellness Name Role Phone Unavailable Primary Care Provider Unavailabl e Source Comments [facility],non-owned Affiliates and Associated Physician Practices is amultiple site organization consisting of ambulatory clinics and hospital sitesin [place], [place], [place] and [place]. This disclosure is being madepursuant to the Care Everywhere program and may not contain all information available regarding this patient. Last updated 17.[facility] Social History Tobacco Use Types Packs/Day Years [...] patient's age to complete this topic [place] [address] [place] [address]
--- OUTSIDE RECORDS SUMMARY | 2024-09-03 16:03 | XMS_ITS | Data Portability ---
Author Organization [facility] [place] Address [address] [place] [address] Assessment Encounter Date Assessment Date Assessment LastModified by Organization Details LastModified Time 07/29/2024 07/29/2024 Annual gynecological exam performed. Patient will come back in a year unless there are new symptoms. [email or web address] Not available 07/29/2024 11:38:03 Plan of Treatment Reminders Order Date Submit Date Provider Last Modified By Organization Details Last Modified Time Details Appointments None recorded. Lab hbcab (hepatitis B core Ab) igm, serum 2024 025 [facility] (Lab), [address] [place], [address], 5 11:25:14 HBsAg (hepatitis B surface Ag), serum 2024 025 [facility] (Lab), [address] [place], [address], 5 11:25:14 hepatitis C virus Ab, serum 2024 025 [facility] (Lab), [address] [place], [address], 5 11:25:13 HIV 1+2 AB + HIV 1 p24 Ag, qualitative immunoassay , serum 2024 025 [facility] (Lab), [address] [place], [address], 5 11:25:13 RPR (rapid plasma reagin), serum 2024 025 [facility] (Lab), [address], [place], [address], 5 11:25:14 pap, IG + HR HPV - HPV regardless but if HPV is positive need subtyping 16,18/45add STI to pap GC/CT/Trich 2024 025 [facility] (Lab), [address], [place], [address], 5 13:59:16 culture, urine 2024 025 [facility] (Lab), [address], [place], [address], 5 13:59:18 Referral None recorded. Procedures None recorded. Surgeries None recorded. Imaging MAMMO, diagnostic, digital, bilateral 2024 [facility], [address], [place], [address], 5 04:02:31 US, breast, bilateral, complete 2024 [facility], [address], [place], [address], 5 04:02:31 Medication Orders None recorded. Patient TargetsNo targets [...] of expos ure to HCV. Not Available [facility] (Lab) [address], [place], [address], 07/30/2024 11:25:13 07/30/19 25 07/29/2024 HIV 1/2 ANTIG EN/AN TIBOD Y, REFLE X CONFI RMATI ON HIV antigen/anti body Nonrea ctive nonrea ctive HIV-1 antig en and HIV-1 /HIV- 2 antib odies were not detec gabriella. No labor atory evide nce of HIV infec tion. Not Available [facility] (Lab) [address], [place], [address], 07/30/2024 11:25:13 07/30/19 25 07/29/2024 HEPAT ITIS B SURFA CE ANTIG EN hepatitis B surface antigen Non-re active non-re active This assay was perfo rmed using [employer] ratio n reage nts and test kits. Value s obtai maxim with other assay metho ds or kits canno t be used inter caro eably . Not Available [facility] (Lab) [address], [place], [address], 07/30/2024 11:25:14 07/30/19 25 07/29/2024 RPR SCREE N, REFLE X TITER /CONF IRMAT ION RPR qualitative Nonrea ctive nonrea ctive Not Available [facility] (Lab) [address], [place], [address], 07/30/2024 11:25:14 07/30/19 25 07/29/2024 HEPAT ITIS B CORE, IGM hepatitis B core IgM antibody Non-re active non-re active IgM anti- HBc not detec gabriella. Does not exclu de the possi bilit y of expos ure to or infec tion with HBV. Test Perfo rmed by: [facility] [address] [place] [address] Not Available [facility] (Lab) [address] [place], [address], 07/30/2024 11:25:14 07/30/19 25 07/29/2024 IMAGE GUIDE D PAP AND HPV REGAR DLESS image guided Pap, HPV regardless of Pap result SEE RESULT S BELOW CASE REPOR T: Cytol ogy Gynec ologi reyna Repor t Case: [id number] Autho paulina gresham Provi sarah beth: Alexandria Ford, AHSTYN Singer cted: 07/29 1446 Order ing Locat [...] epith elial Naty muñiz or Rinku jain ([facility]) . Elect apple velazquez d by Meche [...] as clini nati zamarripa nted. Not Available [facility] (Lab) [address] , [place], [address], 08/03/2024 13:59:16 07/30/1907/29/2024 TRICH OMONA S VAGIN CHALO (RRNA ) trichomonas vaginalis ribosomal RNA (rrna) Negati ve negati ve Not Available [facility] (Lab) [address] [place], [address], 08/03/2024 13:59:17 07/30/1907/29/2024 CT/GC (FAREED) , THINP REP VIAL chlamydia trachomatis, PCR Negati ve negati ve Not Available [facility] (Lab) [address] [place], [address], 08/03/2024 13:59:17 07/30/19 25 07/29/2024 CT/GC (FAREED) , THINP REP VIAL neisseria gonorrhoeae, PCR Negati ve negati ve Not Available [facility] (Lab) [address], [place], [address], 08/03/2024 13:59:17 07/30/19 25 07/29/2024 CULTU RE: URINE result report SEE RESULT S BELOW abnormal Test: Cultu re: Urine Speci men Sourc e: Urine - Clean Catch Speci men Type: Urine Speci men Date: 2024 1446 Resul t Date: 2024 0713 Resul t Statu s: Final resul t Ramakrishnaor mal: Yes Jacoby garcia Lab: [facility] [address] [facility] [address] Tel: CULTU RE ----- ----- ----- --- [...] <=0.5 ug/mL Susce ptibl e Not Available [facility] (Lab) [address], [place], [address], 08/03/2024 13:59:18 Result Notes None recorded. Procedures Surgical History Date Name Laterality Status Provider Name and Address Organization Details Recorded Time 11/06/19 22 chemotherapy completed [facility] 07/29/2024 12:08:18 05/08/19 15 medical termination of completed [facility] 07/29/2024 12:07:34 05/08/19 14 incision and drainage of breast abscess completed [facility] 07/29/2024 12:07:14 Imaging Results None recorded. Procedure Notes None recorded. Medical Equipment None Reported. Allergies Allergen ID Allergen Name Allergen Category Reaction Reaction Severity Criticality Documentation Date Start Date Code Code System Note Provider Name and Address Organization Details Recorded Time 09308 pecan nut food Not available Not available Not available 07/29/2024 33540 UNK [facility] 11:57:32 [address]672 Benadryl medicatio n Not available Not available Not available 07/29/202465528 7 RxNorm [facility] 11:57:43 [address]7080 azithromy louis medicatio n Not available Not available Not available 07/29/2024 43429 RxNorm [facility] 11:58:11 Medications Name Sig Start Date Stop Date Status Note LastModified by Organization Details LastModified Time omeprazole 40 mg capsule,del ayed release TAKE 1 CAPSULE BY MOUTH ONCE DAILY active Not Available Not Available No t Available amoxicillin 500 mg tablet TAKE 1 TABLET BY MOUTH THREE TIMES DAILY FOR 10 DAYS 07/29 completed Not Available Not Available Not Available oxycodone-a cetaminophe n 5 mg-325 mg tablet [...] completed Not Available Not Available Not Available nitrofurant oin monohydrate /macrocryst als 100 mg capsule TAKE 1 CAPSULE BY MOUTH EVERY 12 HOURS FOR 7 DAYS active Not Available Not Available No t Available pregabalin 50 mg capsule TAKE 1 [...] Updated DateTime 07/29/2024 157.48 cm 21.8 kg/m2 98722.49 g 119 mm[Hg] 81 mm[Hg] Lety Khan [facility] 11:56:58 Social History Question Answer Notes LastModified by Organizat ion Details LastModified Time Do You Have An Advance Directive? No [email or web address] Information n ot available 07/29/2024 Are You Blind Or Do You Have Difficulty Seeing? No [email or web address] Information n ot available 07/29/2024 What Is Your Level Of Caffeine Consumption? Occasional [email or web address] Information not available 07/29/2024 How Much Tobacco Do You Chew? None [email or web address] Information not available 07/29/2024 In The 14 Days Before Symptom Onset, Have You Had Close Contact With A Laboratory-confirm ed COVID-19 While That Case Was Ill? No [email or web address] Information n ot available 07/29/2024 In The 14 Days Before Symptom Onset, Have You Had Close Contact With A Person Who Is Under Investigation For COVID-19 While That Person Was Ill? No [email or web address] Information not available 07/29/2024 Have You Been To An Area Known To Be High Risk For COVID-19? No [email or web address] Information not available 07/29/2024 Are You Deaf Or Do You Have Serious Difficulty Hearing? No [email or web address] Information not available 07/29/2024 What Type Of Diet Are You Following? REGULAR [email or web address] Information n ot available 07/29/2024 What Is The Highest Grade Or Level Of School You Have Completed Or The Highest Degree You Have Received? NQ90925-2 [email or web address] Information not available 07/29/2024 Are There Any Guns Present In Your Home? No [email or web address] Information not available 07/29/2024 Do You Use Protection During Sex? No [email or web address] Information not available 07/29/2024 Do You Use Your Seat Belt Or Car Seat Routinely? No [email or web address] Information not available 07/29/2024 Do You Have Smoke And Carbon Monoxide Detectors In Your Home? Yes [email or web address] Information not available 07/29/2024 At What Age Did You Start Smoking Tobacco? 21 [email or web address] Information not available 07/29/2024 How Much Tobacco Do You Smoke? 1 PPD [email or web address] Information not available 07/29/2024 Do You Use Sunscreen Routinely? No [email or web address] Information not available 07/29/2024 Have You Used IV Drugs? No Information not available 07/29/2024 Sex: Unknown Functional Status Question Answer Note LastModified by Organizat ion Details LastModified Time Do you use any illicit or recreational drugs? No Information not available 07/29/2024 What is your level of alcohol consumption? Occasional Information not available 07/29/2024 Are you able to walk? [email or web address] Information not available 07/29/2024 What is your occupation? None Information not available 07/29/2024 What is your exercise level? None Information not available 07/29/2024 Mental Status Question Answer Note LastModified by Organization D etails LastModified Time Do you feel stressed (tense, restless, nervous, or anxious, or unable to sleep at night)? [id number] Information not available 07/29/2024 Family History Nothing Reported. Medical History Condition [...] SNOMED-CT Code Diagnosis ICD10 Code Diagnosis Note [id number] ANIA Reeves [place] [address] [address] 07/29/2024 11:33:28 07/30/2024 10:26:56 Gynecologic examination 24791449 Z01.419 WWEBC - declinedPa p - done [...] advised. Questions answered. Venereal d isease screening 753092050 Z11.3 Sexually t ransmitted infectious disease 1258808 A64 Breast lump 90859830 N63 .0 order given for bilateral diagnostic mammogram and u/s Health Concerns Section Related Observation LastModified by Organization Detai ls LastModified Time None Recorded Concern Status LastModified by Organization Details LastModified Time None Recorded Advance Directives Directive N: Payers Encounter Date Sequence Insurance Name Policy Number Policy [place] Covered Member ID Owods Member ID Guarantor Name 07/29/2024 1 [facility] (MEDICAID HMO) [id number] Soha Marrero [id number] Soha Marrero Notes Date Note Type Note [...] since 2023 ANIA Reeves [address], [place], [address], [facility] 07/30/2024 09:32:49 OBGyn Episode Ob Episode Information Episode Created Date Number of Fetuses Patient Bloodtype Patient rh Status Prepregnancy Weight lbs Domestic Partner Domestic Partner Phone Father Name Front Clerk Status 07/30/19 1 CLOSED Fetus Data First Name Last Name Admitted to NICU Weight (g) Sex Living Outcome Pediatric Complications Fetus ID Race Codes Race Delivery Type , Induced 24896 Fly Calculation Initial Fly Date Initial Exam [...] Domestic Partner Domestic Partner Phone Father Name Front Clerk Status 07/30/19 1 CLOSED Fetus Data First Name Last Name Admitted to NICU Weight (g) Sex Living Outcome Pediatric Complications Fetus ID Race Codes Race Delivery Type , Spontane ous 45312 Fly Calculation Initial Fly Date Initial Exam [...] Domestic Partner Domestic Partner Phone Father Name Front Clerk Status 07/30/19 1 CLOSED Fetus Data First Name Last Name Admitted to NICU Weight (g) Sex Living Outcome Pediatric Complications Fetus ID Race Codes Race Delivery Type F Prematur e 71740 Vaginal Delivery Fly Calculation Initial Fly Date [...]
--- OUTSIDE RECORDS SUMMARY | 2024-09-03 16:03 | XMS_ITS | Clinical Summary ---
[facility] Organization [facility] Address [address] [place] [address] Care Team Providers Care Turn Down Worker Name Role Phone Unavailable Primary Care [...] Pain, Mild. Active naloxone (NARCAN) 4 mg/spray [place], Non-Aerosol EMERGENCY USE ONLY: Administer 1 spray [...] 03/26/2023 Metabolic acidosis, increased anion gap (IAG) 03/25/2003/26/2023 Hypokalemia 03/25/2023 03/26/2023 Encounters Date Type Department Care Team Description 08/26/2024 External Device Data STL ABSTRACTION Provider, Abstract 08/26/2024 External Device Data STL ABSTRACTION Provider, Abstract 08/25/2024 External Device Data [facility] ABSTRACTION Provider, Abstract 08/25/2024 External Device Data [facility] ABSTRACTION Provider, Abstract 08/24/2024 External Device Data ST[facility] ABSTRACTION Provider, Abstract 08/17/2024 Telephone [facility] Oncology and Hematology - [address] [address] Marv Hernandes MD Re-establishing care from Last 3 Months Family History Medical [...] Comments Blood Pressure 109/66 04/17/2023 8:40 AM HAND BRAILLE TRANSCRIBER Pulse 111 04/17/2023 8:40 AM HAND BRAILLE TRANSCRIBER Temperature 36.6 C (97.9 F) 04/17/2023 8:40 AM HAND BRAILLE TRANSCRIBER Respiratory Rate 10 04/17/2023 8:40 AM HAND BRAILLE TRANSCRIBER Oxygen Saturation 92% 03/27/2023 11:06 AM HAND BRAILLE TRANSCRIBER Inhaled Oxygen Concentration - - Weight 51.3 kg (113 lb) 04/17/2023 8:40 AM HAND BRAILLE TRANSCRIBER Height 162.6 cm (5' 4) 03/24/2023 6:27 PM HAND BRAILLE TRANSCRIBER Body Mass Index 19.4 03/24/2023 6:27 PM HAND BRAILLE TRANSCRIBER Plan of Treatment Health Maintenance Due Date [...] [place] [facility] Advance Directives For more information, please contact: [phone] * Full Code (Latest Code Status on File) Date Activated Date Inactivated Comments 03/25/2023 1:09 AM 03/26/2023 3:29 PM
--- OUTSIDE RECORDS SUMMARY | 2024-09-03 16:03 | XMS_ITS | Encounter Summary ---
Author Organization [facility] Address [address] [place] [address] Care Team Providers Care Core Machine Tender Name Role Phone Unavailable Primary Care Provider Unavailabl e Encounter Details Date Type Department Care Team (Late st Contact Info) Description 12/18/2022 Lab Requisition [facility] - Pathology Lab [address] [place] [address] Ishan Escobedo MD [address] [facility] [address] [place] [address] Generalized enlarged lymph nodes Social History [...] AM CDT) Case Report Flow Cytometry Case: [id number] Authorizing Provider: Ishan Escobedo MD Collected: 12/18/2022 09:00 AM Ordering Location: [facility] Care Pathology Lab Received: 12/18/2022 03:11 PM Pathologist: Giovanni Chow MD Specimen: Axillary Lymph Node, RIGHT 12/18/2022 5:15 PM CDT [facility] Final Diagnosis Axillary lymph node, flow cytometry: - [place] light chain restricted CD10+ B-cell population detected (~99% of overall events) 12/18/2022 5:15 PM CDT [facility] at 1714 CDT Flow Cytometry Interpretation Viability: 87%. B-cells: monoclonal, kappa-restricted, expressing CD19, CD20, and CD10. T-cells: not increased, no immunophenotypic aberrancy. A cytospin prepared from the flow cytometry specimen has been reviewed for quality control engineering technician purposes. 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 Histologic slides are pending for final subclassification. 12/18/2022 5:[address] [facility] PATHOLOGY LAB Flow Cytometry Results Differential Result Comment Flow Cell Count /uL 9,000 Total Viability % 87.0 Lymphocytes % 99 Dim CD45 Region % 0 Monocytes % 0 Granulocytes % 1 12/18/2022 5:[address] [facility] PATHOLOGY LAB Reason for test Generalized enlarged lymph nodes 785.6 12/18/2022 5:[address] [facility] PATHOLOGY LAB Client Specimen ID # [id number] 12/18/2022 5:[address] [facility] PATHOLOGY LAB Number of markers 16 were performed. A-2 Flow CD3 A-4 Flow CD10 A-6 Flow CD20 A-7 Flow CD23 A-12 Flow CD2 A-13 Flow CD4 A-16 Flow CD1a A-3 Flow CD5 A-5 Flow CD19 A-8 Flow CD34 A-9 Flow CD45 A-14 Flow CD7 A-15 Flow CD8 A-17 Flow CD30 A-10 [place]+CD19+ A-11 Lambda+CD19+ 12/18/2022 5:[address] [facility] PATHOLOGY LAB Pathologist Location at [facility] 12/18/2022 5:[address] [facility] PATHOLOGY LAB Disclaimer Test performed at [facility], [address] [place] [address], [address]. *The established laboratory minimum viability is 70%. [...] LAB Embedded Images 5:[address] [facility] PATHOLOGY LAB Pathology/Cytolo gy AXILLARY LYMPH NODE STRUCTURE / Unknown 12/18/2022 9:00 AM CDT 12/18/2022 3:11 PM CDT us Ishan Escobedo MD LAB - PATHOLOGY/CYTOLOGY ORDERAB LES Final Result [facility] PATHOLOGY LAB [address] [phone] documented in this encounter Visit Diagnoses Diagnosis Generalized enlarged lymph nodes Enlargement of lymph nodes documented in this encounter
--- OUTSIDE RECORDS SUMMARY | 2024-09-03 16:03 | XMS_ITS | Patient Health Record ---
Author Organization [facility] Address [address] [place] [address] Care Team Providers Care Nuclear Medicine Medical Director Name Role Phone NavyanilaRichard Primary Care Provider [phone] Satya Fernandez Unavailable [phone] Mandi Love Unavailable [phone] Evie Epps Unavailable [phone] Minerva Peacock Unavailable [phone] Allergies Allergen (clinical drug ingredient) Drug/Non Drug Allergy documented on EMR Reaction Allergy Type Onset Date Status azithromycin Zithromax Unknown Drug Allergy Acti ve codeine Codeine Unknown Drug Allergy Active Results Component Value Reference Range Notes 12 Panel Urine Drug Screen Reviewed date:12/19/2023 10:18:20 AM Interpretation: Performing Lab: Notes/Report: THC POS JULISA neg MOP (OPI) POS AMP neg MET neg BAR neg BZO neg MDMA neg MTD neg OXY neg PCP neg BUP POS 12 Panel Urine Drug Screen Reviewed date:08/26/2024 04:14:22 PM Interpretation: Performing Lab: Notes/Report: THC pos JULISA neg MOP (OPI) neg AMP neg MET neg BAR neg BZO pos MDMA neg MTD neg OXY pos PCP neg BUP pos 12 Panel Urine Drug Screen Reviewed date:07/12/2024 [...] pos 12 Panel Urine Drug Screen Reviewed date:01/01/2024 [...] PERINEUM Diagnosis 1 Abscess (L02.91) Referral Organization [facility] Referring Provider First Name Satya Referring Provider Last Name Rebecca Referring Provider Speciality Internal M edicine Referred Provider Specialty Surgery General Notes GUERO Song Valeri e A 02/13/2024 09:35:39 AM > Referral to [facility] Colon and Rectal Surgery. Letter to pt. Clinical Notes [facility] Colon and Rectal Surgery, [address] [facility], Phone#[phone], Referral Priority Routine Reason IMPACTED MOLAR AND S EVERE CARIES RIGHT LOWER JAW THAT DENTIST DECLINED TO TREAT Diagnosis 1 Dental caries (K02.9 ) Referral Organization [facility] Referring Provider First Name Satya Referring Provider Last Name Rebecca Referring Provider Speciality Internal M edicine Referred Provider Specialty Dental Gener al Practice General Notes GUERO Song Valeri e A 02/13/2024 09:57:12 AM > Referral to [facility] Dentistry. Letter to pt. Clinical Notes [facility] Adult Dentist, [address] [place] [address], , Referral Priority Routine Reason anxiety, shanna Diagnosis 1 Opioid use disorder (F11.99) Referral Organization [facility] Referring Provider First Name Minerva Referring Provider Last Name Madonna Referring Provider Speciality Psychiatry Referred Provider Specialty Psychiatry Clinical Notes Rashida Krishnamurthy 11:29:12 AM >Outreach to client, no answer, LVM requesting call back., Rashida Krishnamurthy 06/04/2024 12:37:33 PM >2nd outreach, no answer, LVM., Rashida Krishnamurthy 06/07/2024 02:49:41 PM > 3rd phone outreach, No answer. Will send letter., Rashida Krishnamurthy 06/22/2024 10:35:01 AM >Letter sent on this [...] Sublingual up to three times a day 08/19/2024 Active Social History Tobacco Use: Social History [...] phone, visiting friends or family, going to faith or club meetings) More than 5 times a week How stressed are you? Stress is when someone feels tense, nervous, anxious, or can\t sleep at night because their mind is troubled A little bit In the past year have you sp ent more than 2 nights in a row in a shelter, skilled nursing, long-term center, or juvenile correctional facility? 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) Active confirmed Problem Opioid use disorder (5501585782) Opioid use disorder (F11.99) Active confirmed Vital Signs Heart Rate 81 /min 08/19/2024 Temperature 98.4 degrees Fahrenheit 08/19/2024 Respiratory Rate 16 /min 08/19/2024 Blood pressure diastolic 78 mm Hg 08/19/2024 Oximetry 98 % 08/19/2024 Height 62 in 08/19/2024 Blood pressure systolic 110 mm Hg 08/19/2024 Weight 115.2 lbs 08/19/2024 BMI 21.07 kg/m2 08/19/2024 Encounters Encounter Location Date Provider Diagnosis [address] [place] [address] 12/19/2023 Jenia Heavens Opioid use disorder F11.99 and Nicotine dependence, unspecified, uncomplicated F17.200 [place] [address] [place] [address] 01/01/2024 Jenia Heavens Opioid use disorder F11.99 and Nicotine dependence, unspecified, uncomplicated F17.200 [address] [place] [address] 01/02/2024 Satya Fernandez Abscess L02.91 ; Dental caries K02.9 ; Lymphoma of lymph nodes of multiple regions, unspecified lymphoma type C85.98 ; Opioid use disorder F11.99 and Nicotine dependence, unspecified, uncomplicated F17.200 [address] [address] [place] [address] 01/16/2024 Satya Fernandez Asthma exacerbation J45.901 ; Mild intermittent asthma without complication J45.20 and Nicotine dependence, unspecified, uncomplicated F17.200 [address] [place] [address] 01/29/2024 Jenia Heavens Opioid use disorder F11.99 and Tobacco use disorder F17.[address] [place] [address] 05/13/2024 Minervashannon Peacock Patient underweight R63.6 ; Opioid use disorder F11.99 ; Non-tobacco user Z78.9 and Nutritional counseling Z71.3 [address] [place] [address] 05/27/2024 Jenia Heavens Opioid use disorder F11.99 and Nicotine dependence, unspecified, uncomplicated F17.200 [address] [place] [address] 07/08/2024 Jenia Heavens Opioid use disorder F11.99 and Nicotine dependence, unspecified, uncomplicated F17.200 [place] [address] [address] [address] [address] 08/19/2024 Jenia Heavens Opioid use disorder F11.99 and Tobacco use disorder F17.200 Assessments Encounter Date Diagnosis (ICD Code) Assessment Notes Treatment Notes Treatment Clinical Notes Section Notes 12/19/2023 Nicotine dependence, unspecified, uncomplicated (ICD-10 - F17.200) 12/19/2023 Opioid use disorder (ICD-10 - F11.99) 01/01/2024 [...] 05/27/2024 Opioid use disorder (ICD-10 - F11.99) 07/08/2024 Opioid use disorder (ICD-10 - F11.99) 08/19/2024 Tobacco use disorder (ICD-10 - F17.200) 08/19/2024 Opioid use disorder (ICD-10 - F11.99) 05/13/2024 Patient underweight (ICD-10 - R63.6) 01/02/2024 Dental caries (ICD-10 - K02.9) 01/02/2024 Abscess (ICD-10 - L02.91) BASE OF RIGHT BUTTOCK IN PERINEUM. AREA CLEANED WITH ALCOHOL AND INCISED WITH #15 BLADE. SMALL AMOUNT BLOOD OBTAINED. SHE TOLERATED WELL. GAUZE AND TAPE APPLIED. TO CHANGE DAILY. DISCUSSSED NEED FOR ANTIBX, SURGICAL CONSULTATION, ANALGESIC, HEAT. CALL IF WORSENING. ADDENDUM: SUBSTITUTED CIPRO FOR LEVAQUIN DUE TO PHARMACY STOCK ISSUES. 05/13/2024 Opioid use disorder (ICD-10 - F11.99) 01/02/2024 Lymphoma of lymph nodes of multiple regions, unspecified lymphoma type (ICD-10 - C85.98) 05/13/2024 Non-tobacco user (ICD-10 - Z78.9) 07/08/2024 Nicotine dependence, unspecified, uncomplicated (ICD-10 - F17.200) 01/16/2024 Nicotine dependence, unspecified, uncomplicated (ICD-10 - F17.200) 01/01/2024 Nicotine dependence, unspecified, uncomplicated (ICD-10 - F17.200) 05/13/2024 Nutritional counseling (ICD-10 - Z71.3) 01/02/2024 Opioid use disorder (ICD-10 - F11.99) 01/02/2024 Nicotine dependence, unspecified, uncomplicated (ICD-10 - F17.200) 01/01/2024 Other Client agrees to take medication [...] self-administe r their own oral medications per [place] Protocol. 07/08/2024 Other Patient agrees to take medication as prescribed. Discussed medication side effects, adverse effects, risks, benefits, as well as interactions. Encouraged non-use of opioids. Has naloxone. Recommended participation in recovery groups and/or counseling services. May contact office with questions or concerns. Patient may self-administe r their own medications or may self-administe r their own oral medications per [place] Protocol. 08/19/2024 Other Discussed medication side effects, adverse effects, risks, benefits, as well as interactions. Encouraged non-use of opioids. Has naloxone. Recommended participation in recovery groups and/or counseling services. May contact office with questions or concerns. Patient may self-administe r their own medications or may self-administe r their own oral medications per [place] Protocol. 12/19/2023 Other Patient agrees to take medication as prescribed. Discussed medication side effects, adverse effects, risks, benefits, as well as interactions. Encouraged non-use of opioids. Has naloxone. Recommended participation in recovery groups and/or counseling services. May contact office with questions or concerns. Plan Of Treatment No Information Insurance Providers Payer Name Payer Address Payer Phone Subscriber Number Group Number Insured Name Patient Relationship to Insured Coverage Start Date Coverage End Date [employer]ARN[employer] [address] [phone] [id number] Soha Marrero Self - patient is the insured 2 Medical (General) History Medical History History ICD Code Bipolar 1 Disorder Alcohol Use Disorder Surgical History Surgery Date(Month/Year) Ectopic Open Chest Surgery Chemo Port 2022 Hospitalization History Reason Date(Month/Year) [place] x2
--- OUTSIDE RECORDS SUMMARY | 2024-09-03 16:03 | XMS_ITS | Encounter Summary ---
Author Organization [facility] Address [address] [facility] [place] [address] Care Team Providers Care Paint Coating 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 Name Role Phone Unavailable Primary Care Provider Unavailabl e Encounter Details Date Type Department Care Team (Late st Contact Info) Description 12/19/2022 Lab Requisition [facility] - Pathology Lab [address] [place] [address] Ishan Escobedo MD [address] [address] Illness, unspecified Social History Tobacco [...] CDT) Case Report Surgical Pathology Report Case: [id number] Authorizing Provider: Ishan Escobedo MD Collected: 12/18/2022 09:00 AM Ordering Location: [facility] Care Pathology Lab Received: 12/19/2022 01:25 PM Pathologist: Giovanni Chow MD Specimen: Lymph Node Biopsy 12/19/2022 3:33 PM CDT [facility] Final Diagnosis Lymph node, biopsy cores: - Follicular lymphoma, low-grade 12/19/2022 3:33 PM CDT [facility] at 1533 CDT Microscopic Description and Comment Histologic sections show several biopsy cores with a nodular proliferation of small lymphoid cells, morphologically consistent with a follicular lymphoma. Large cell transformation is not appreciated in the small specimen provided. This subclassification is supported by the flow cytometry results of CD10 co-expression. Axillary lymph node, flow cytometry ([id number]): - [place] light chain restricted CD10+ B-cell population detected (~99% of overall events) Also received from [facility] is a peripheral smear showing circulating follicular lymphoma cells with occasional nuclear clefts. The peripheral blood is involved by follicular lymphoma. 12/19/2022 3:33 PM CDT [facility] PATH[facility] Clinical History Suspect lymphoma. 12/19/2022 3:[address] [facility] PATH[facility] LAB Materials Received Received are 4 slide(s) and 1 block labeled [id number] along with a copy of the outside pathology report. The materials originate from [facility], [address] [place] [address]. All original materials are returned to the referring institution, along with a copy of our final report. 12/19/2022 3:33 PM T [facility] PATHOLOGY LAB Pathologist Location at [facility] 12/19/2022 3:33 PM T [facility] PATH[facility] LAB Disclaimer The performance characteristics of all immunohistochemical and indirect immunofluorescence stains (if any) cited in this report were determined by the Histopathology Laboratory of [facility]. Some of these tests were developed [...] attending (teaching) pathologist. 12/19/2022 3:33 PM T [facility] PATH[facility] LAB Embedded Images 12/19/2022 3:33 PM T [facility] Pathology/Cytolo gy BIOPSY OF LYMPH NODE / Unknown 12/18/2022 9:00 AM CDT 12/19/2022 1:25 PM CDT us Ishan Escobedo MD LAB - PATHOLOGY/CYTOLOGY ORDERAB LES Final Result [facility] LAB [address] [facility] [phone] documented in this encounter Visit Diagnoses Diagnosis Illness, unspecified documented in this encounter
[2024-09-03 16:05] VITALS: BP 148/98; PULSE 129; RESP 18; TEMP 36.7; O2SAT 99
--- NOTE | 2024-09-03 16:21 | PC.NURSE ---
Pt eloped from hospital.
--- OUTSIDE RECORDS SUMMARY | 2024-09-03 17:15 | XMS_ITS ---
Author Organization [facility] Address [address] [place] [address] Phone Care Team Providers Care Fresh Food Manager Name Role Phone Gabriel Salmeron MD Unavailable [phone] Brooks Sosa MD Unavailable [phone] Provider, None Primary Care Provider UnavailKervin Rubi MD Unavailable [facility] Status:Enrolled (Active) Start date:05/05/2024 Enrollment date:05/05/2024 Related social drivers of health:Social Connections, Tobacco Use, Depression, Stress, Physical Activity, Utilities Continued Care and Services Coordination
--- OUTSIDE RECORDS SUMMARY | 2024-09-03 17:15 | XMS_ITS ---
Author Organization [facility] Address [address] [place] [address] Phone Care Team Providers Care Furniture Mover Name Role Phone Gabriel Salmeron MD Unavailable [...] at jail Child living with her parents Current Treatment [...]
--- OUTSIDE RECORDS SUMMARY | 2024-09-03 17:15 | XMS_ITS | Clinical Summary ---
Author Organization [facility] Address [address] [place] [address] Care Team Providers Care Recycling Worker Name Role Phone Unavailable Primary Care Provider Unavailabl e Source Comments [facility] [employer],non-owned Affiliates and Associated Physician Practices is amultiple site organization consisting of ambulatory clinics and hospital sitesin [place], [place], [place] and [place]. This disclosure is being madepursuant to the Care Everywhere program and may not contain all information available regarding this patient. Last updated 17.[facility] [employer] Social History Tobacco Use Types Packs/Day Years [...] patient's age to complete this topic [place] [address] [place] [address]
--- OUTSIDE RECORDS SUMMARY | 2024-09-03 17:15 | XMS_ITS | Clinical Summary ---
Author Organization [facility] Address [address] [facility] [place] [address] Care Team Providers Care Communication Analyst Name Role Phone Unavailable Primary Care [...] Pain, Mild. Active naloxone (NARCAN) 4 mg/spray [place], Non-Aerosol EMERGENCY USE ONLY: Administer 1 spray [...] Data STL ABSTRACTION Provider, Abstract 08/17/2024 Telephone [facility] Oncology and Hematology - [address] [address] Marv Hernandes MD Re-establishing care [...] Comments Blood Pressure 109/66 04/17/2023 8:40 AM CHICKEN HANGER Pulse 111 04/17/2023 8:40 AM CHICKEN HANGER Temperature 36.6 C (97.9 F) 04/17/2023 8:40 AM CHICKEN HANGER Respiratory Rate 10 04/17/2023 8:40 AM CHICKEN HANGER Oxygen Saturation 92% 03/27/2023 11:06 AM CHICKEN HANGER Inhaled Oxygen Concentration - - Weight 51.3 kg (113 lb) 04/17/2023 8:40 AM CHICKEN HANGER Height 162.6 cm (5' 4) 03/24/2023 6:27 PM CHICKEN HANGER Body Mass Index 19.4 03/24/2023 6:27 PM CHICKEN HANGER Plan of Treatment Health Maintenance Due Date [...] Advance Directives For more information, please contact: [phone] * Full Code (Latest Code Status on File) Date Activated Date Inactivated Comments 03/25/2023 1:09 AM 03/26/2023 3:29 PM
--- OUTSIDE RECORDS SUMMARY | 2024-09-03 17:15 | XMS_ITS | CONTINUITY OF CARE DOCUMENT ---
Author Name christopher white Address Unknown Organization [facility] Address [address] [place] [address] [address] [place] [address] Phone [phone] Care Team Providers Care Motors Assembler Name Role Phone Randy Armstrong MD Unavailable Randy Armstrong MD Unavailable [phone] INSURANCE PROVIDERS Payer name Policy type / Coverage type [place] red democrat ID [place] MEDICAID Medicaid [id number]
--- OUTSIDE RECORDS SUMMARY | 2024-09-03 17:15 | XMS_ITS | Encounter Summary ---
Author Organization [facility] Address [address] [place] [address] Care Team Providers Care Choke Setter Name Role Phone Unavailable Primary Care Provider Unavailabl e Encounter Details Date Type Department Care Team (Late st Contact Info) Description 12/19/2022 Lab Requisition [facility] - Pathology Lab [address] [place] [address] Ishan Escobedo MD [address] [address] Illness, unspecified Social History Tobacco [...] CDT) Case Report Surgical Pathology Report Case: [id number] Authorizing Provider: Ishan Escobedo MD Collected: 12/18/2022 09:00 AM Ordering Location: [facility] Care Pathology Lab Received: 12/19/2022 01:25 PM [...] CD10 co-expression. Axillary lymph node, flow cytometry ([id number]): - [place] light chain restricted CD10+ B-cell population detected (~99% of overall events) Also received from [facility] is a peripheral smear showing circulating follicular lymphoma cells with occasional nuclear clefts. The peripheral blood is involved by follicular lymphoma. 12/19/2022 3:33 PM CDT [facility] PATHOLOGY LAB Clinical History Suspect lymphoma. 12/19/2022 3:33 PM [facility] PATHOLOGY LAB Materials Received Received are 4 slide(s) and 1 block labeled [id number] along with a copy of the outside pathology report. The materials originate from [facility], [address] [place] [address]. All original materials are returned to the referring institution, along with a copy of our final report. 12/19/2022 3:33 PM T [facility] PATHOLOGY LAB Pathologist Location at [facility] 12/19/2022 3:33 PM T [facility] PATHOLOGY LAB Disclaimer The performance characteristics of all immunohistochemical and indirect immunofluorescence stains (if any) cited in this report were determined by the Histopathology Laboratory of [facility]. Some of these tests were developed by [...] attending (teaching) pathologist. 12/19/2022 3:33 PM T [facility] PATHOLOGY LAB Embedded Images 12/19/2022 3:33 PM T [facility] PATHOLOGY LAB Pathology/Cytolo gy BIOPSY OF LYMPH NODE / Unknown 12/18/2022 9:00 AM CDT 12/19/2022 1:25 PM CDT us Ishan Escobedo MD LAB - PATHOLOGY/CYTOLOGY ORDERAB LES Final Result [facility] PATHOLOGY LAB [address] [facility] [phone] documented in this encounter Visit Diagnoses Diagnosis Illness, unspecified documented in this encounter
--- OUTSIDE RECORDS SUMMARY | 2024-09-03 17:15 | XMS_ITS | Encounter Summary ---
Author Organization [facility] Address [address] [place] [address] Care Team Providers Care Specialty Sales Consultant Name Role Phone Unavailable Primary Care Provider Unavailabl e Encounter Details Date Type Department Care Team (Late st Contact Info) Description 12/18/2022 Lab Requisition [facility] - Pathology Lab [address] [place] [address] Ishan Escobedo MD [address] [place] [phone] Generalized enlarged lymph nodes Social History [...] AM CDT) Case Report Flow Cytometry Case: [id number] Authorizing Provider: Ishan Escobedo MD Collected: 12/18/2022 09:00 AM Ordering Location: [facility] Care Pathology Lab Received: 12/18/2022 03:11 PM Pathologist: Giovanni Chow MD Specimen: Axillary Lymph Node, RIGHT 12/18/2022 5:15 PM CDT [facility] PATH[facility] Final Diagnosis Axillary lymph node, flow cytometry: - [place] light chain restricted CD10+ B-cell population detected (~99% of overall events) 12/18/2022 5:15 PM CDT [facility] PATH[facility] at 1714 CDT Flow Cytometry Interpretation Viability: 87%. B-cells: monoclonal, kappa-restricted, expressing CD19, CD20, and CD10. T-cells: not increased, no immunophenotypic aberrancy. A cytospin prepared from the flow cytometry specimen has been reviewed for quality assurance nurse purposes. 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 Histologic slides are pending for final subclassification. 12/18/2022 5:15 PM [facility] PATHOLOG[facility] LAB Flow Cytometry Results Differential Result Comment Flow Cell Count /uL 9,000 Total Viability % 87.0 Lymphocytes % 99 Dim CD45 Region % 0 Monocytes % 0 Granulocytes % 1 12/18/2022 5:15 PM [facility] Reason for test Generalized enlarged lymph nodes 785.6 12/18/2022 5:15 PM [facility] Client Specimen ID # [id number] 12/18/2022 5:15 PM [facility] Number of markers 16 were performed. A-2 Flow CD3 A-4 Flow CD10 A-6 Flow CD20 A-7 Flow CD23 A-12 Flow CD2 A-13 Flow CD4 A-16 Flow CD1a A-3 Flow CD5 A-5 Flow CD19 A-8 Flow CD34 A-9 Flow CD45 A-14 Flow CD7 A-15 Flow CD8 A-17 Flow CD30 A-10 [place]+CD19+ A-11 Lambda+CD19+ 12/18/2022 5:15 PM [facility] Pathologist Location at [facility] 12/18/2022 5:15 PM [facility] Disclaimer Test performed at [facility], [address] [place] [address], [address]. *The established laboratory minimum viability is 70%. [...] PATHOLOGY LAB Embedded Images 5:15 PM CDT [facility] PATHOLOGY LAB Pathology/Cytolo gy AXILLARY LYMPH NODE STRUCTURE / Unknown 12/18/2022 9:00 AM CDT 12/18/2022 3:11 PM CDT us Ishan Escobedo MD LAB - PATHOLOGY/CYTOLOGY ORDERAB LES Final Result [facility] PATHOLOGY LAB [address] [phone] documented in this encounter Visit Diagnoses Diagnosis Generalized enlarged lymph nodes Enlargement of lymph nodes documented in this encounter
--- OUTSIDE RECORDS SUMMARY | 2024-09-03 17:15 | XMS_ITS | Clinical Summary ---
Author Organization [facility] Address [address] [place] [address] Phone Care Team Providers Care Training Technician Name Role Phone Gabriel Salmeron MD Unavailable Brooks Sosa MD Unavailable [phone] Provider, None Primary Care Provider UnavailKervin Rubi [...] Type Department Care Team Description 08/06/2024 Telephone [facility] Oncology Services [address] [place] [address] Gabriel Salmeron MD 06/17/2024 11:40 AM CDT - 06/17/2024 12:40 PM CDT Surgery [facility] Periop [address] [place] [address] Kervin Jiang MD REMOVAL OF PORT, LEFT SIDE 06/17/2024 11:39 AM CDT Anesthesia Event [facility] Periop [address] [place] [address] Roland Martinez MD Kanallakan, Kevin L, SERVICE DESK ASSOCIATE, SHOW HOST OR HOSTESS 06/17/2024 8:59 AM CDT - 06/17/2024 1:15 PM CDT Hospital Encounter [facility] Preop/Pacu II [address] [place] [address] Kervin Jiang MD Discharge Disposition: Discharged to home or Selfcare 06/17/2024 Telephone [facility] [address] [address] Kervin Jiang MD Medication Management 06/15/2024 Travel 06/11/2024 10:00 AM GAS SPECIALIST Office Visit [facility] [address] [address] Gabriel Salmeron MD Sanz, Alejandro Federico, MD [...] week 05/07/2023 How often do you attend mormonism or faith serv ices? Never 05/07/2023 Do you belong to any clubs o r organizations such as mormonism groups, unions, fraternal or athletic groups, or [...] Total Score - Questions 1-9 9 06/06 [facility] [place] of Occupat ional Health - Occupational Stress [...] place to sleep or slept in a retirement (including now)? No 05/07/2023 Sexually Active Control Partners Comments Yes Male Comments Unknown Sex and Gender Information Value Date Recorded Sex Assigned at Female 05/21/2023 11:44 AM GAS SPECIALIST Legal Sex Female 5:17 PM CDT Gender Identity Female 05/21/2023 11:44 AM GAS SPECIALIST Sexual Orientation Not on file Last Filed [...] Ready to change Department associated with goal: [facility] Steps to achieve [...] PATHOLOGY SURGICAL Routine 06/17/2024 11:55 AM CDT [facility] VAD W/SUBQ PORT/PEACE OFFICER CTR/PRPH INSJ 06/17/2024 11:17 AM CDT ENCOUNTER FOR REMOVAL OF TUNNELED CENTRAL VENOUS CATHETER Special Needs Allergy: Allopurinol, Azithromycin, Codeine, Pecan Extract, Benadryl Hx: Drug & Alcohol abuse 5 3.5 119# POCT URINE HCG () Routine 06/17/2024 9:38 AM CDT from Last 3 Months Results * Pathology Surgical (06/17/2024 11:55 AM CDT) Case Report Surgical Pathology Report Case: [id number] Authorizing Provider: Kervin Jiang, Collected: 06/17/2024 11:55 AM Ordering Location: [facility] Received: 06/18/2024 09:02 AM [facility] Main OR Pathologist: Ishan Escobedo MD Specimen: Foreign Body, PORT FROM LEFT CHEST 06/18/2024 2:46 PM CDT [facility] FINAL DIAGNOSIS Foreign body, port from left chest, removal: - As described grossly. 06/18/2024 2:46 PM CDT [facility] at 1446 CDT Pre-Operative Diagnosis ENCOUNTER FOR REMOVAL OF TUNNELED CENTRAL VENOUS CATHETER 06/18/2024 2:46 PM CDT [facility] Gross Description A. PORT FROM LEFT [...] only. KS/sb 06/18/2024 2:46 PM CDT [facility] Other FOREIGN BODY SUBMITTED SPECIMEN / Unknown 06/17/2024 11:55 AM CDT 06/18/2024 9:02 AM CDT Kervin Jiang MD PATHOLOGY/CYTOLOGY OR DERABLES Final Result [facility] [address] [place] [address] * POCT Urine HCG () (06/17/2024 9:38 AM CDT) POC URINE Negative POC URINE CONTROL Professor Of Mathematics Pass Urine 06/17/2024 9:38 AM CDT Kervin Jiang MD POINT OF CARE TESTING (MANUAL) Final Result from Last 3 Months Insurance MEDICAID [facility] GENER[facility] Care Teams Training Technician Relationship Specialty Start Date End Date Provider, None [place] PCP - General 06/17/24 Gabriel Salmeron MD [address] [place] [address] Consulting Physician Medical Oncology 05/23/23 Brooks Sosa MD [address] [place] [phone] Consulting Physician Neurology 01/22/24 Kervin Jiang MD [address] [phone] Consulting Physician General Surgery 06/11/24
--- OUTSIDE RECORDS SUMMARY | 2024-09-03 17:15 | XMS_ITS | Clinical Summary ---
Author Organization [place] [facility] Address [address] [place] [address] Care Team Providers Care Hydroelectric Machinery Mechanic Helper Name Role Phone Richard Fish NP [...] Type Department Care Team Description 08/23/[address] [address] Hannah Wilder, GUERO Scheduling Appointments 08/12/[address] [address] Hannah Wilder, GUERO Scheduling Appointments [...] patient's age to complete this topic Insurance [facility] Care Teams Hydroelectric Machinery Mechanic Helper Relationship Specialty Start Date End Date Richard Fish NP [address] [place] [address] [place] [address] PCP - General Nurse Practitioner 02/13/24
--- OUTSIDE RECORDS SUMMARY | 2024-09-03 17:15 | XMS_ITS | Referral Summary ---
Author Organization [place] [id number] [facility] Address [address] [place] [address] Care Team Providers Care Former Hand Name Role Phone Richard Fish NP Primary Care Provider Encounters Date Type Department Care Team Description 08/23/[address] [address] Hannah Wilder, GUERO Scheduling Appointments 08/12/[address] [address] Hannah Wilder, GUERO Scheduling Appointments [...] Plan of Treatment Not on file Insurance [facility] Care Teams Former Hand Relationship Specialty Start Date End Date Richard Fish NP [address] [place] [address] [place] [address] PCP - General Nurse Practitioner 02/13/24
== END 2024-09-03 16:21 | disposition left against medical advice (07) ==
LOC: ANHED 17:13
DX: R45.851 Suicidal ideations (principal)
CPT/HCPCS: 99199

== ENCOUNTER 2024-09-05 15:45 | Emergency (ER) | payer OTHER, SELFPAY ==
[2024-09-05 15:55] VITALS: BP 105/68; PULSE 100; RESP 16; TEMP 36.4; O2SAT 98
[2024-09-05 16:09] LABS: BEDSIDEPREGUCG Negative (Negative)
[2024-09-05 16:22] LABS: Add Urine Microscopic? NO; Appearance Urine Clear (Clear); Bilirubin Urine Negative (Negative); Blood Urine Negative (Negative); Color Urine Yellow (Yellow); Glucose Urine UA Negative (Negative); Ketones Urine Negative (Negative); Leukocyte Esterase Ur Negative LEU/UL (Negative); Nitrate Urine Negative (Negative); Protein Urine Negative (Negative); Specific Grav Ur 1.012 (1.001-1.035)
--- OUTSIDE RECORDS SUMMARY | 2024-09-05 18:11 | XMS_ITS ---
Author Organization [facility] Address [address] [place] [address] Phone Care Team Providers Care Registered Associate Name Role Phone Gabriel Salmeron MD Unavailable [phone] Brooks Sosa MD Unavailable [phone] Provider, None Primary Care Provider UnavailKervin Rubi MD Unavailable [facility] Status:Enrolled (Active) Start date:05/05/2024 Enrollment date:05/05/2024 Related social drivers of health:Social Connections, Tobacco Use, Depression, Stress, Physical Activity, Utilities Continued Care and Services Coordination
--- OUTSIDE RECORDS SUMMARY | 2024-09-05 18:11 | XMS_ITS | Clinical Summary ---
Author Organization [facility] Address [address] [place] [address] Phone Care Team Providers Care Cabinet Builder Name Role Phone Gabriel Salmeron MD Unavailable Brooks Sosa MD Unavailable [phone] Provider, None Primary Care Provider UnavailKervin Rubi [...] Type Department Care Team Description 08/06/2024 [facility] [address] [place] [address] Gabriel Salmeron MD 06/17/2024 11:40 AM CDT - 06/17/2024 12:40 PM CDT [facility] [address] [place] [address] Kervin Jiang MD REMOVAL OF PORT, LEFT SIDE 06/17/2024 11:39 AM CDT [facility]esthesia [facility] [address] [place] [address] Roland Martinez MD Kanallakan, Kevin L, PLUG SORTER, INDUSTRIAL TECHNOLOGY TEACHER 06/17/2024 8:59 AM CDT - 06/17/2024 1:15 PM CDT Hospital [facility] [address] [place] [address] Kervin Jiang MD Discharge Disposition: Discharged to home or Selfcare 06/17/2024 Telephone [facility] #[address] [address] Kervin Jiang MD Medication Management 06/15/2024 Travel 06/11/2024 10:00 AM MOVIE THEATER MANAGER Office Visit [facility] [address] [address] Gabriel Salmeron MD Sanz, Alejandro Federico, MD [...] week 05/07/2023 How often do you attend oriental orthodox or sabianist serv ices? Never 05/07/2023 Do you belong to any clubs o r organizations such as oriental orthodox groups, unions, fraternal or athletic groups, or [...] Total Score - Questions 1-9 9 06/06 [facility] of Occupat ional Health - Occupational Stress [...] place to sleep or slept in a chcf (including now)? No 05/07/2023 Sexually Active Control Partners Comments Yes Male Comments Unknown Sex and Gender Information Value Date Recorded Sex Assigned at Female 05/21/2023 11:44 AM MOVIE THEATER MANAGER Legal Sex Female 5:17 PM CDT Gender Identity Female 05/21/2023 11:44 AM MOVIE THEATER MANAGER Sexual Orientation Not on file Last Filed [...] to change Department associated with goal: [facility] Steps to achieve goal: [...] PATHOLOGY SURGICAL Routine 06/17/2024 11:55 AM CDT [facility] VAD W/SUBQ PORT/PATHOLOGIST ASSISTANT CTR/PRPH INSJ 06/17/2024 11:17 AM CDT ENCOUNTER FOR REMOVAL OF TUNNELED CENTRAL VENOUS CATHETER Special Needs Allergy: Allopurinol, Azithromycin, Codeine, Pecan Extract, Benadryl Hx: Drug & Alcohol abuse 5 3.5 119# POCT URINE HCG () Routine 06/17/2024 9:38 AM CDT from Last 3 Months Results * Pathology Surgical (06/17/2024 11:55 AM CDT) Case Report Surgical Pathology Report Case: [id number] Authorizing Provider: Kervin Jiang, Collected: 06/17/2024 11:55 AM Ordering Location: [facility] Received: 06/18/2024 09:02 AM [facility] Main OR Pathologist: Ishan Escobedo MD Specimen: Foreign Body, PORT FROM LEFT CHEST 06/18/2024 2:46 PM CDT [facility] FINAL DIAGNOSIS Foreign body, port from left chest, removal: - As described grossly. 06/18/2024 2:46 PM CDT [facility] at 1446 CDT Pre-Operative Diagnosis ENCOUNTER FOR REMOVAL OF TUNNELED CENTRAL VENOUS CATHETER 06/18/2024 2:46 PM CDT [facility] Gross Description A. PORT FROM [...] only. KS/sb 06/18/2024 2:46 PM CDT [facility] Other FOREIGN BODY SUBMITTED SPECIMEN / Unknown 06/17/2024 11:55 AM CDT 06/18/2024 9:02 AM CDT Kervin Jiang MD PATHOLOGY/CYTOLOGY OR DERABLES Final Result [facility] [address] [place] [address] * POCT Urine HCG () (06/17/2024 9:38 AM CDT) POC URINE Negative POC URINE CONTROL Air Export Coordinator Pass Urine 06/17/2024 9:38 AM CDT Kervin Jiang MD POINT OF CARE TESTING (MANUAL) Final Result from Last 3 Months Insurance MEDICAID [facility] GENER[facility] Care Teams Cabinet Builder Relationship Specialty Start Date End Date Provider, None [place] PCP - General 06/17/24 Gabriel Salmeron MD [address] [place] [address] Consulting Physician Medical Oncology 05/23/23 Brooks Sosa MD [address] [place] [phone] Consulting Physician Neurology 01/22/24 Kervin Jiang MD [address] [phone] Consulting Physician General Surgery 06/11/24
--- OUTSIDE RECORDS SUMMARY | 2024-09-05 18:11 | XMS_ITS ---
Author Organization [facility] Address [address] [place] [address] Phone Care Team Providers Care Application Integrator Name Role Phone Gabriel Salmeron MD Unavailable Brooks Sosa MD Unavailable [phone] Provider, None Primary Care Provider UnavailKervin Rubi [...] current use Anxiety 05/07/2023 Under care of skilled nursing service 05/07/2023 Overview (05/07/2023): Two previous stays at skilled nursing Child living with her parents Current Treatment [...] 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 Hx of skilled nursing time
--- OUTSIDE RECORDS SUMMARY | 2024-09-05 18:12 | XMS_ITS | Clinical Summary ---
Author Organization [facility] Address [address] [place] [address] Care Team Providers Care Personal Care Worker Name Role Phone Unavailable Primary Care Provider Unavailabl e Source Comments [facility] [place],non-owned Affiliates and Associated Physician Practices is amultiple site organization consisting of ambulatory clinics and hospital sitesin [place], [place] and [place]. This disclosure is being madepursuant to the Care Everywhere program and may not contain all information available regarding this patient. Last updated 17.[facility] [place] Social History Tobacco Use Types Packs/Day Years [...] patient's age to complete this topic [place] [address] [place] [address]
--- OUTSIDE RECORDS SUMMARY | 2024-09-05 18:12 | XMS_ITS | Data Portability ---
Author Organization [facility] [place] Address [address] [place] [address] Assessment Encounter Date Assessment Date Assessment LastModified [...] B core Ab) igm, serum 2024 025 [facility] (Lab), [address] [place], [address], 5 11:25:14 HBsAg (hepatitis B surface Ag), serum 2024 025 [facility] (Lab), [address] [place], [address], 5 11:25:14 hepatitis C virus Ab, serum 2024 025 [facility] (Lab), [address] [place], [address], 5 11:25:13 HIV 1+2 AB + HIV 1 p24 Ag, qualitative immunoassay , serum 2024 025 [facility] (Lab), [address] [place], [address], 5 11:25:13 RPR (rapid plasma reagin), serum 2024 025 [facility] (Lab), [address], [place], [address], 5 11:25:14 pap, IG + HR HPV - HPV regardless but if HPV is positive need subtyping 16,18/45add STI to pap GC/CT/Trich 2024 025 [facility] (Lab), [address], [place], [address], 5 13:59:16 culture, urine 2024 025 [facility] (Lab), [address], [place], [address], 5 13:59:18 Referral None recorded. Procedures None recorded. Surgeries None recorded. Imaging MAMMO, diagnostic, digital, bilateral 2024 [facility], [address], [place], [address], 5 04:02:31 US, breast, bilateral, complete 2024 [facility], [address], [place], [address], 5 04:02:31 Medication Orders None recorded. Patient [...] of expos ure to HCV. Not Available [facility] (Lab) [address], [place], [address], 07/30/2024 11:25:13 07/30/19 25 07/29/2024 HIV 1/2 ANTIG EN/AN TIBOD Y, REFLE X CONFI RMATI ON HIV antigen/anti body Nonrea ctive nonrea ctive HIV-1 antig en and HIV-1 /HIV- 2 antib odies were not detec gabriella. No labor atory evide nce of HIV infec tion. Not Available [facility] (Lab) [address], [place], [address], 07/30/2024 11:25:13 07/30/19 25 07/29/2024 HEPAT ITIS B SURFA CE ANTIG EN hepatitis B surface antigen Non-re active non-re active This assay was perfo rmed using [employer] ratio n reage nts and test kits. Value s obtai maxim with other assay metho ds or kits canno t be used inter caro eably . Not Available [facility] (Lab) [address], [place], [address], 07/30/2024 11:25:14 07/30/19 25 07/29/2024 RPR SCREE N, REFLE X TITER /CONF IRMAT ION RPR qualitative Nonrea ctive nonrea ctive Not Available [facility] (Lab) [address], [place], [address], 07/30/2024 11:25:14 07/30/19 25 07/29/2024 HEPAT ITIS B CORE, IGM hepatitis B core IgM antibody Non-re active non-re active IgM anti- HBc not detec gabriella. Does not exclu de the possi bilit y of expos ure to or infec tion with HBV. Test Perfo rmed by: [facility] [address] [place] [address] Not Available [facility] (Lab) [address] [place], [address], 07/30/2024 11:25:14 07/30/19 25 07/29/2024 IMAGE GUIDE [...] epith elial Naty muñiz or Rinku jain ([facility]) . Elect apple velazquez d by [...] as clini nati zamarripa nted. Not Available [facility] (Lab) [address] , [place], [address], 08/03/2024 13:59:16 07/30/1907/29/2024 TRICH OMONA S VAGIN CHALO (RRNA ) trichomonas vaginalis ribosomal RNA (rrna) Negati ve negati ve Not Available [facility] (Lab) [address] [place], [address], 08/03/2024 13:59:17 07/30/1907/29/2024 CT/GC (FAREED) , THINP REP VIAL chlamydia trachomatis, PCR Negati ve negati ve Not Available [facility] (Lab) [address] [place], [address], 08/03/2024 13:59:17 07/30/19 25 07/29/2024 CT/GC (FAREED) , THINP REP VIAL neisseria gonorrhoeae, PCR Negati ve negati ve Not Available [facility] (Lab) [address], [place], [address], 08/03/2024 13:59:17 07/30/19 25 07/29/2024 CULTU RE: URINE result report SEE RESULT S BELOW abnormal Test: Cultu re: Urine Speci men Sourc e: Urine - Clean Catch Speci men Type: Urine Speci men Date: 2024 1446 Resul t Date: 2024 0713 Resul t Statu s: Final resul t Ramakrishnaor mal: Yes Jacoby garcia Lab: [facility] [address] [facility] [address] Tel: CULTU RE ----- ----- ----- --- [...] <=0.5 ug/mL Susce ptibl e Not Available [facility] (Lab) [address], [place], [address], 08/03/2024 13:59:18 Result Notes None recorded. Procedures Surgical History Date Name Laterality Status Provider Name and Address Organization Details Recorded Time 11/06/19 22 chemotherapy completed [facility] 07/29/2024 12:08:18 05/08/19 15 medical termination of completed [facility] 07/29/2024 12:07:34 05/08/19 14 incision and drainage of breast abscess completed [facility] 07/29/2024 12:07:14 Imaging Results None recorded. Procedure Notes None recorded. Medical Equipment None Reported. Allergies Allergen ID Allergen Name Allergen Category Reaction Reaction Severity Criticality Documentation Date Start Date Code Code System Note Provider Name and Address Organization Details Recorded Time 67521 pecan nut food Not available Not available Not available 07/29/2024 83761 UNK [facility] 11:57:32 95193 Benadryl medicatio n Not available Not available Not available 07/29/202437531 7 RxNorm [facility] 11:57:43 11827 azithromy louis medicatio n Not available Not available Not available 07/29/2024 40717 RxNorm [facility] 11:58:11 Medications Name Sig Start [...] Updated DateTime 07/29/2024 157.48 cm 21.8 kg/m2 95886.49 g 119 mm[Hg] 81 mm[Hg] Lety Khan [facility] 11:56:58 Social History Question Answer Notes LastModified by Organizat ion Details LastModified Time Do You Have An Advance Directive? No [email or web address] Information n ot available 07/29/2024 Are You Blind Or Do You Have Difficulty Seeing? No [email or web address] Information n ot available 07/29/2024 What Is Your Level Of Caffeine Consumption? Occasional [email or web address] Information not available 07/29/2024 How Much Tobacco Do You Chew? None [email or web address] Information not available 07/29/2024 In The 14 Days Before Symptom Onset, Have You Had Close Contact With A Laboratory-confirm ed COVID-19 While That Case Was Ill? No [email or web address] Information n ot available 07/29/2024 In The 14 Days Before Symptom Onset, Have You Had Close Contact With A Person Who Is Under Investigation For COVID-19 While That Person Was Ill? No [email or web address] Information not available 07/29/2024 Have You Been To An Area Known To Be High Risk For COVID-19? No [email or web address] Information not available 07/29/2024 Are You Deaf Or Do You Have Serious Difficulty Hearing? No [email or web address] Information not available 07/29/2024 What Type Of Diet Are You Following? REGULAR [email or web address] Information n ot available 07/29/2024 What Is The Highest Grade Or Level Of School You Have Completed Or The Highest Degree You Have Received? ST19599-8 [email or web address] Information not available 07/29/2024 Are There Any Guns Present In Your Home? No [email or web address] Information not available 07/29/2024 Do You Use Protection During Sex? No Information not available 07/29/2024 Do You Use Your Seat Belt Or Car Seat Routinely? No [email or web address] Information not available 07/29/2024 Do You Have Smoke And Carbon Monoxide Detectors In Your Home? Yes Information not available 07/29/2024 At What Age Did You Start Smoking Tobacco? 21 [email or web address] Information not available 07/29/2024 How Much Tobacco Do You Smoke? 1 PPD [email or web address] Information not available 07/29/2024 Do You Use Sunscreen Routinely? No [email or web address] Information not available 07/29/2024 Have You Used [...] anxious, or unable to sleep at night)? [id number] Information not available 07/29/2024 Family History Nothing Reported. Medical History Condition Response Other Y Anxiety Disorder Y Cancer Y Depression/ depression Y Gynecological [...] SNOMED-CT Code Diagnosis ICD10 Code Diagnosis Note [id number] ANIA Reeves [place] [address] [address] 07/29/2024 11:33:28 07/30/2024 10:26:56 Gynecologic examination 11046568 Z01.419 WWEBC - declinedPa p - done [...] advised. Questions answered. Venereal d isease screening 467047557 Z11.3 Sexually t ransmitted infectious disease 0585831 A64 Breast lump 28783534 N63 .0 order given for bilateral diagnostic mammogram and u/s Health Concerns Section Related Observation LastModified by Organization Detai ls LastModified Time None Recorded Concern Status LastModified by Organization Details LastModified Time None Recorded Advance Directives Directive N: Payers Encounter Date Sequence Insurance Name Policy Number Policy Woods Covered Member ID Woods Member ID Guarantor Name 07/29/2024 1 [facility] (MEDICAID HMO) [id number] Soha Marrero [id number] Soha Marrero Notes Date Note Type Note [...] resolved h/o lymphoma, in remission since 2023 ANAI Reeves [address], [place], [address], [facility] 07/30/2024 09:32:49 OBGyn Episode Ob Episode Information Episode Created Date Number of Fetuses Patient Bloodtype Patient rh Status Prepregnancy Weight lbs Domestic Partner Domestic Partner Phone Father Name Adjunct Instructor In Economics Status 07/30/19 1 CLOSED Fetus Data First Name Last Name Admitted to NICU Weight (g) Sex Living Outcome Pediatric Complications Fetus ID Race Codes Race Delivery Type , Induced 36700 Fly Calculation Initial Fly Date Initial Exam [...] Domestic Partner Domestic Partner Phone Father Name Adjunct Instructor In Economics Status 07/30/19 1 CLOSED Fetus Data First Name Last Name Admitted to NICU Weight (g) Sex Living Outcome Pediatric Complications Fetus ID Race Codes Race Delivery Type , Spontane ous 63248 Fly Calculation Initial Fly Date Initial Exam [...] Domestic Partner Domestic Partner Phone Father Name Adjunct Instructor In Economics Status 07/30/19 1 CLOSED Fetus Data First Name Last Name Admitted to NICU Weight (g) Sex Living Outcome Pediatric Complications Fetus ID Race Codes Race Delivery Type F Prematur e 48757 Vaginal Delivery Fly Calculation Initial Fly Date [...]
--- OUTSIDE RECORDS SUMMARY | 2024-09-05 18:12 | XMS_ITS | Clinical Summary ---
Author Organization [place] [id number] [facility] Address [address] [place] [address] Care Team Providers Care Senior Clinical Data Manager Name Role Phone Richard Fish NP Primary [...] Type Department Care Team Description 08/23/[address] [address] Hannah Wilder, GUERO Scheduling Appointments 08/12/[address] [address] Hannah Wilder, GUERO Scheduling Appointments [...] patient's age to complete this topic Insurance [facility] Care Teams Senior Clinical Data Manager Relationship Specialty Start Date End Date Richard Fish NP [address] [place] [address] [place] [address] PCP - General Nurse Practitioner 02/13/24
--- OUTSIDE RECORDS SUMMARY | 2024-09-05 18:12 | XMS_ITS | Encounter Summary ---
Author Organization [facility] Address [address] [place] [address] Care Team Providers Care Media Sales Executive Name Role Phone Unavailable Primary Care Provider Unavailabl e Encounter Details Date Type Department Care Team (Late st Contact Info) Description 12/18/[address] [facility] - Pathology Lab [address] [place] [address] Ishan Escobedo MD [address] [facility] [address] [place] [phone] Generalized enlarged lymph nodes Social History [...] AM CDT) Case Report Flow Cytometry Case: [id number] Authorizing Provider: Ishan Escobedo MD Collected: 12/18/2022 09:00 AM Ordering Location: [facility] Care Pathology Lab Received: 12/18/2022 03:11 PM Pathologist: Giovanni Chow MD Specimen: Axillary Lymph Node, RIGHT 12/18/2022 5:15 PM CDT [facility] Final Diagnosis Axillary lymph node, flow cytometry: - [place] light chain restricted CD10+ B-cell population detected (~99% of overall events) 12/18/2022 5:15 PM CDT [facility] at 1714 CDT Flow Cytometry Interpretation Viability: 87%. B-cells: monoclonal, kappa-restricted, expressing CD19, CD20, and CD10. T-cells: not increased, no immunophenotypic aberrancy. A cytospin prepared from the flow cytometry specimen has been reviewed for supplier quality engineer purposes. 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 Histologic slides are pending for final subclassification. 12/18/2022 5:15 PM [facility] Flow Cytometry Results Differential Result Comment Flow Cell Count /uL 9,000 Total Viability % 87.0 Lymphocytes % 99 Dim CD45 Region % 0 Monocytes % 0 Granulocytes % 1 12/18/2022 5:15 PM [facility] Reason for test Generalized enlarged lymph nodes 785.6 12/18/2022 5:15 PM [facility] Client Specimen ID # [id number] 12/18/2022 5:15 PM [facility] Number of markers 16 were performed. A-2 Flow CD3 A-4 Flow CD10 A-6 Flow CD20 A-7 Flow CD23 A-12 Flow CD2 A-13 Flow CD4 A-16 Flow CD1a A-3 Flow CD5 A-5 Flow CD19 A-8 Flow CD34 A-9 Flow CD45 A-14 Flow CD7 A-15 Flow CD8 A-17 Flow CD30 A-10 [place]+CD19+ A-11 Lambda+CD19+ 12/18/2022 5:15 PM [facility] Pathologist Location at [facility] 12/18/2022 5:15 PM [facility] Disclaimer Test performed at [facility], [address] [place] [address], [address]. *The established laboratory minimum viability is 70%. [...] PATHOLOGY LAB Embedded Images 5:15 PM CDT [facility] Pathology/Cytolo gy AXILLARY LYMPH NODE STRUCTURE / Unknown 12/18/2022 9:00 AM CDT 12/18/2022 3:11 PM CDT us Ishan Escobedo MD LAB - PATHOLOGY/CYTOLOGY ORDERAB LES Final Result [facility] [address] [phone] documented in this encounter Visit Diagnoses Diagnosis Generalized enlarged lymph nodes Enlargement of lymph nodes documented in this encounter
--- OUTSIDE RECORDS SUMMARY | 2024-09-05 18:12 | XMS_ITS | Referral Summary ---
Author Organization [place] [id number] [facility] Address [address] [place] [address] Care Team Providers Care Polymerization Oven Tender Name Role Phone Richard Fish NP Primary Care Provider Encounters Date Type Department Care Team Description 08/23/[address] [address] Hannah Wilder, GUERO Scheduling Appointments 08/12/[address] [address] Hannah Wilder, GUERO Scheduling Appointments [...] Plan of Treatment Not on file Insurance [facility] Care Teams Polymerization Oven Tender Relationship Specialty Start Date End Date Richard Fish NP [address] [place] [address] [place] [address] PCP - General Nurse Practitioner 02/13/24
--- OUTSIDE RECORDS SUMMARY | 2024-09-05 18:12 | XMS_ITS | Encounter Summary ---
Author Organization [facility] Address [address] [place] [address] Care Team Providers Care Permit Review Assistant Name Role Phone Unavailable Primary Care Provider Unavailabl e Encounter Details Date Type Department Care Team (Late st Contact Info) Description 12/19/2022 Lab Requisition [facility] - Pathology Lab [address] [place] [address] Ishan Escobedo MD [address] [address] Illness, unspecified Social History Tobacco [...] CDT) Case Report Surgical Pathology Report Case: [id number] Authorizing Provider: Ishan Escobedo MD Collected: 12/18/2022 09:00 AM Ordering Location: [facility] Care Pathology Lab Received: 12/19/2022 01:25 [...] CD10 co-expression. Axillary lymph node, flow cytometry ([id number]): - [place] light chain restricted CD10+ B-cell population detected (~99% of overall events) Also received from [facility] is a peripheral smear showing circulating follicular lymphoma cells with occasional nuclear clefts. The peripheral blood is involved by follicular lymphoma. 12/19/2022 3:33 PM CDT [facility] Clinical History Suspect lymphoma. 12/19/2022 3:33 PM [facility] Materials Received Received are 4 slide(s) and 1 block labeled [id number] along with a copy of the outside pathology report. The materials originate from [facility], [address] [place] [address]. All original materials are returned to the referring institution, along with a copy of our final report. 12/19/2022 3:33 PM T [facility] Pathologist Location at [facility] 12/19/2022 3:33 PM T [facility] Disclaimer The performance characteristics of all immunohistochemical and indirect immunofluorescence stains (if any) cited in this report were determined by the Histopathology Laboratory of [facility]. Some of these tests were developed by [...] attending (teaching) pathologist. 12/19/2022 3:33 PM T [facility] Embedded Images 12/19/2022 3:33 PM T [facility] Pathology/Cytolo gy BIOPSY OF LYMPH NODE / Unknown 12/18/2022 9:00 AM CDT 12/19/2022 1:25 PM CDT us Ishan Escobedo MD LAB - PATHOLOGY/CYTOLOGY ORDERAB LES Final Result [facility] [address] [facility] [phone] documented in this encounter Visit Diagnoses Diagnosis Illness, unspecified documented in this encounter
--- OUTSIDE RECORDS SUMMARY | 2024-09-05 18:12 | XMS_ITS | CONTINUITY OF CARE DOCUMENT ---
Author Name christopher white Address Unknown Organization [facility] Address [address] [place] [address] [address] [place] [address] Phone [phone] Care Team Providers Care Blast Hole Driller Name Role Phone Randy Armstrong MD Unavailable Randy Armstrong MD Unavailable [phone] INSURANCE PROVIDERS Payer name Policy type / Coverage type Scott red green party ID [place] MEDICAID Medicaid [id number]
--- OUTSIDE RECORDS SUMMARY | 2024-09-05 18:12 | XMS_ITS | Clinical Summary ---
[facility] Address [address] [facility] [place] [address] Care Team Providers Care B2B Account Executive Name Role Phone Unavailable Primary Care [...] Pain, Mild. Active naloxone (NARCAN) 4 mg/spray [place], Non-Aerosol EMERGENCY USE ONLY: Administer 1 spray [...] Data STL ABSTRACTION Provider, Abstract 08/17/2024 Telephone [facility] Oncology and Hematology - [address] [address] Marv Hernandes MD Re-establishing care [...] Comments Blood Pressure 109/66 04/17/2023 8:40 AM LINKING MACHINE OPERATOR Pulse 111 04/17/2023 8:40 AM LINKING MACHINE OPERATOR Temperature 36.6 C (97.9 F) 04/17/2023 8:40 AM LINKING MACHINE OPERATOR Respiratory Rate 10 04/17/2023 8:40 AM LINKING MACHINE OPERATOR Oxygen Saturation 92% 03/27/2023 11:06 AM LINKING MACHINE OPERATOR Inhaled Oxygen Concentration - - Weight 51.3 kg (113 lb) 04/17/2023 8:40 AM LINKING MACHINE OPERATOR Height 162.6 cm (5' 4) 03/24/2023 6:27 PM LINKING MACHINE OPERATOR Body Mass Index 19.4 03/24/2023 6:27 PM LINKING MACHINE OPERATOR Plan of Treatment Health Maintenance Due Date [...] Advance Directives For more information, please contact: [phone] * Full Code (Latest Code Status on File) Date Activated Date Inactivated Comments 03/25/2023 1:09 AM 03/26/2023 3:29 PM
--- OUTSIDE RECORDS SUMMARY | 2024-09-05 18:12 | XMS_ITS | Patient Health Record ---
Author Organization [facility] Address [address] [place] [address] Care Team Providers Care Insurance Follow Up Representative Name Role Phone NavyanilaRichard Primary Care Provider Satya Fernandez Unavailable [phone] Mandi Love Unavailable [phone] Evie Epps Unavailable [phone] Minerva Peacock Unavailable [phone] Allergies Allergen (clinical drug ingredient) Drug/Non Drug Allergy documented on EMR Reaction Allergy Type Onset Date Status azithromycin Zithromax Unknown Drug Allergy Acti ve codeine Codeine Unknown Drug Allergy Active Results Component Value Reference Range Notes 12 Panel Urine Drug Screen Reviewed date:08/26/2024 [...] PERINEUM Diagnosis 1 Abscess (L02.91) Referral Organization [facility] Referring Provider First Name Satya Referring Provider Last Name Rebecca Referring Provider Speciality Internal M edicine Referred Provider Specialty Surgery General Notes GUERO Song Valeri e A 02/13/2024 09:35:39 AM > Referral to [facility] Colon and Rectal Surgery. Letter to pt. Clinical Notes [facility] Colon and Rectal Surgery, [address] [facility], Phone#[phone], Referral Priority Routine Reason IMPACTED MOLAR AND S EVERE CARIES RIGHT LOWER JAW THAT DENTIST DECLINED TO TREAT Diagnosis 1 Dental caries (K02.9 ) Referral Organization [facility] Referring Provider First Name Satya Referring Provider Last Name Rebecca Referring Provider Speciality Internal M edicine Referred Provider Specialty Dental Gener al Practice General Notes GUERO Song Valeri e A 02/13/2024 09:57:12 AM > Referral to [facility] Dentistry. Letter to pt. Clinical Notes [facility] Adult Dentist, [address] [place] [address], , Referral Priority Routine Reason anxiety, shanna Diagnosis 1 Opioid use disorder (F11.99) Referral Organization [facility] Referring Provider First Name Minerva Referring Provider [...] phone, visiting friends or family, going to congregational or club meetings) More than 5 times a week How stressed are you? Stress is when someone feels tense, nervous, anxious, or can\t sleep at night because their mind is troubled A little bit In the past year have you sp ent more than 2 nights in a row in a retirement, snf, usp center, or juvenile correctional facility? 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) Active confirmed Problem Opioid use disorder (8581950534) Opioid use disorder (F11.99) Active confirmed Vital Signs Heart Rate 81 /min 08/19/2024 Temperature 98.4 degrees Fahrenheit 08/19/2024 Respiratory Rate 16 /min 08/19/2024 Blood pressure diastolic 78 mm Hg 08/19/2024 Oximetry 98 % 08/19/2024 Height 62 in 08/19/2024 Blood pressure systolic 110 mm Hg 08/19/2024 Weight 115.2 lbs 08/19/2024 BMI 21.07 kg/m2 08/19/2024 Encounters Encounter Location Date Provider Diagnosis [address] [place] [address] 12/19/2023 Jenia Heavens Opioid use disorder F11.99 and Nicotine dependence, unspecified, uncomplicated F17.200 [address] [address] [place] [address] 01/01/2024 Jenia Heavens Opioid use disorder F11.99 and Nicotine dependence, unspecified, uncomplicated F17.200 [address] [address] [place] [address] 01/02/2024 Satya Fernandez Abscess L02.91 ; Dental caries K02.9 ; Lymphoma of lymph nodes of multiple regions, unspecified lymphoma type C85.98 ; Opioid use disorder F11.99 and Nicotine dependence, unspecified, uncomplicated F17.200 [address] [address] [place] [address] 01/16/2024 Satya Fernandez Asthma exacerbation J45.901 ; Mild intermittent asthma without complication J45.20 and Nicotine dependence, unspecified, uncomplicated F17.200 [address] [address] [place] [address] 01/29/2024 Jenia Heavens Opioid use disorder F11.99 and Tobacco use disorder F17.[address] [place] [address] 05/13/2024 Minervashannon Peacock Patient underweight R63.6 ; Opioid use disorder F11.99 ; Non-tobacco user Z78.9 and Nutritional counseling Z71.3 [address] [address] [place] [address] 05/27/2024 Jenia Heavens Opioid use disorder F11.99 and Nicotine dependence, unspecified, uncomplicated F17.200 [address] [address] [place] [address] 07/08/2024 Jenia Heavens Opioid use disorder F11.99 and Nicotine dependence, unspecified, uncomplicated F17.200 [address] [address] [place] [address] 08/19/2024 Jenia Heavens Opioid use disorder F11.99 and Tobacco use disorder F17.200 Assessments Encounter Date Diagnosis (ICD Code) Assessment Notes Treatment Notes Treatment Clinical Notes Section Notes 05/13/2024 Opioid use disorder (ICD-10 - F11.99) 12/19/2023 Nicotine dependence, unspecified, uncomplicated (ICD-10 - F17.200) 12/19/2023 Opioid use disorder (ICD-10 - F11.99) 08/19/2024 Tobacco use disorder (ICD-10 - F17.200) 08/19/2024 Opioid use disorder (ICD-10 - F11.99) 01/29/2024 Tobacco use disorder (ICD-10 - F17.200) 01/29/2024 Opioid use disorder (ICD-10 - F11.99) 05/13/2024 Patient underweight (ICD-10 - R63.6) 01/16/2024 Asthma exacerbation (ICD-10 - J45.901) NEBULIZER TREATMENT COMPLETED WITH 2.5 MG ALBUTEROL AND PATIENT TOLERTED WELL, FELT MUCH BETTER AFTER TREATMENT. 01/16/2024 Mild intermittent asthma without complication (ICD-10 - J45.20) 01/02/2024 Dental caries (ICD-10 - K02.9) 01/02/2024 Abscess (ICD-10 - L02.91) BASE OF RIGHT BUTTOCK IN PERINEUM. AREA CLEANED WITH ALCOHOL AND INCISED WITH #15 BLADE. SMALL AMOUNT BLOOD OBTAINED. SHE TOLERATED WELL. GAUZE AND TAPE APPLIED. TO CHANGE DAILY. DISCUSSSED NEED FOR ANTIBX, SURGICAL CONSULTATION, ANALGESIC, HEAT. CALL IF WORSENING. ADDENDUM: SUBSTITUTED CIPRO FOR LEVAQUIN DUE TO PHARMACY STOCK ISSUES. 07/08/2024 Opioid use disorder (ICD-10 - F11.99) 05/27/2024 Nicotine dependence, unspecified, uncomplicated (ICD-10 - F17.200) 05/27/2024 Opioid use disorder (ICD-10 - F11.99) 01/01/2024 Opioid use disorder (ICD-10 - F11.99) 07/08/2024 Nicotine dependence, unspecified, uncomplicated (ICD-10 - F17.200) 01/01/2024 Nicotine dependence, unspecified, uncomplicated (ICD-10 - F17.200) 01/02/2024 Lymphoma of lymph nodes of multiple regions, unspecified lymphoma type (ICD-10 - C85.98) 05/13/2024 Non-tobacco user (ICD-10 - Z78.9) 01/16/2024 [...] self-administe r their own oral medications per [place] Protocol. 07/08/2024 Other Patient agrees to take medication as prescribed. Discussed medication side effects, adverse effects, risks, benefits, as well as interactions. Encouraged non-use of opioids. Has naloxone. Recommended participation in recovery groups and/or counseling services. May contact office with questions or concerns. Patient may self-administe r their own medications or may self-administe r their own oral medications per [place] Protocol. 08/19/2024 Other Discussed medication side effects, adverse effects, risks, benefits, as well as interactions. Encouraged non-use of opioids. Has naloxone. Recommended participation in recovery groups and/or counseling services. May contact office with questions or concerns. Patient may self-administe r their own medications or may self-administe r their own oral medications per [place] Protocol. Plan Of Treatment No Information Insurance Providers Payer Name Payer Address Payer Phone Subscriber Number Group Number Insured Name Patient Relationship to Insured Coverage Start Date Coverage End Date GARNICA [address] [phone] [id number] Soha Marrero Self - patient is the insured 2 Medical (General) History Medical History History ICD Code Bipolar 1 Disorder Alcohol Use Disorder Surgical History Surgery Date(Month/Year) Ectopic Open Chest Surgery Chemo Port 2022 Hospitalization History Reason Date(Month/Year) [place]ett[place] x2
--- OUTSIDE RECORDS SUMMARY | 2024-09-05 18:35 | XMS_ITS | Clinical Summary ---
Author Organization [facility] Address [address] [place] [address] Phone Care Team Providers Care Continuity Reader Name Role Phone Gabriel Salmeron MD Unavailable Brooks Sosa MD Unavailable Provider, None Primary Care Provider UnavailKervin Rubi MD Unavailable [phone] Allergies Active Allergy Reactions Criticality Noted Date [...] current use Anxiety 05/07/2023 Under care of [facility] 05/07/2023 Overview (05/07/2023): Two previous stays at [facility] Child living with her parents Resolved Problems Problem Noted Date Diagnosed Date Resolved Date LRTI (lower respiratory tract infection) 09/09/2023 11/26/2023 Lymphoma 05/07/2023 10/29/2023 Overview (05/21/2023): Resistant to care No show ONC Refusing hospice 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/21/2023): Current cannabis; 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 Hx of [facility] time Encounters Date Type Department Care Team Description 08/06/2024 Telephone [facility] [address] [place] [address] Gabriel Salmeron MD 06/17/2024 11:40 AM CDT - 06/17/2024 12:40 PM CDT Surgery [facility] Periop [address] [place] [address] Kervin Jiang MD REMOVAL OF PORT, LEFT SIDE 06/17/2024 11:39 AM CDT Anesthesia Event [facility] [address] [place] [address] Roland Martinez MD [place], Kevin L, PRODUCT CRAFTSMAN, DOCUMENTUM CONSULTANT 06/17/2024 8:59 AM CDT - 06/17/2024 1:15 PM CDT Hospital Encounter [facility] Preop/Pacu II [address] [place] [address] Kervin Jiang MD Discharge Disposition: Discharged to home or Selfcare 06/17/2024 Telephone [facility] [address] [address] Kervin Jiang MD Medication Management 06/15/2024 Travel 06/11/2024 10:00 AM HYDRO EXCAVATION OPERATOR Office Visit [facility] [address] [address] Gabriel Salmeron MD Sanz, Alejandro Federico, MD [...] week 05/07/2023 How often do you attend presybeterian or jain serv ices? Never 05/07/2023 Do you belong to any clubs o r organizations such as presybeterian groups, unions, fraternal or athletic groups, or [...] Total Score - Questions 1-9 9 06/06 [facility] of Occupat ional Health - Occupational Stress [...] place to sleep or slept in a care home (including now)? No 05/07/2023 Sexually Active Control Partners Comments Yes Male Comments Unknown Sex and Gender Information Value Date Recorded Sex Assigned at Female 05/21/2023 11:44 AM HYDRO EXCAVATION OPERATOR Legal Sex Female 5:17 PM CDT Gender Identity Female 05/21/2023 11:44 AM HYDRO EXCAVATION OPERATOR Sexual Orientation Not on file Last Filed [...] Ready to change Department associated with goal: [facility] Steps to achieve [...] PATHOLOGY SURGICAL Routine 06/17/2024 11:55 AM CDT [facility] VAD W/SUBQ PORT/ANIMAL RIDE MANAGER CTR/PRPH INSJ 06/17/2024 11:17 AM CDT ENCOUNTER FOR REMOVAL OF TUNNELED CENTRAL VENOUS CATHETER Special Needs Allergy: Allopurinol, Azithromycin, Codeine, Pecan Extract, Benadryl Hx: Drug & Alcohol abuse 5 3.5 119# POCT URINE HCG () Routine 06/17/2024 9:38 AM CDT from Last 3 Months Results * Pathology Surgical (06/17/2024 11:55 AM CDT) Case Report Surgical Pathology Report Case: [id number] Authorizing Provider: Kervin Jiang, Collected: 06/17/2024 11:55 AM Ordering Location: [facility] Received: 06/18/2024 09:02 AM [facility] Main OR Pathologist: Ishan Escobedo MD Specimen: Foreign Body, PORT FROM LEFT CHEST 06/18/2024 2:46 PM CDT [facility] FINAL DIAGNOSIS Foreign body, port from left chest, removal: - As described grossly. 06/18/2024 2:46 PM CDT [facility] at 1446 CDT Pre-Operative Diagnosis ENCOUNTER FOR REMOVAL OF TUNNELED CENTRAL VENOUS CATHETER 06/18/2024 2:46 PM CDT [facility] Gross Description A. PORT FROM [...] only. [place]/sb 06/18/2024 2:46 PM CDT [facility] Other FOREIGN BODY SUBMITTED SPECIMEN / Unknown 06/17/2024 11:55 AM CDT 06/18/2024 9:02 AM CDT Kervin Jiang MD PATHOLOGY/CYTOLOGY OR DERABLES Final Result [facility] [address] [place] [address] * POCT Urine HCG () (06/17/2024 9:38 AM CDT) POC URINE Negative POC URINE CONTROL Inventory Associate And Driver Pass Urine 06/17/2024 9:38 AM CDT Kervin Jiang MD POINT OF CARE TESTING (MANUAL) Final Result from Last 3 Months Insurance MEDICAID [facility] Care Teams Continuity Reader Relationship Specialty Start Date End Date Provider, None [place] PCP - General 06/17/24 Gabriel Salmeron MD [address] [place] [address] Consulting Physician Medical Oncology 05/23/23 Brooks Sosa MD [address] [place] [address] Consulting Physician Neurology 01/22/24 Kervin Jiang MD [address] [phone] Consulting Physician General Surgery 06/11/24
--- OUTSIDE RECORDS SUMMARY | 2024-09-05 18:35 | XMS_ITS | Clinical Summary ---
Author Organization [place] [address] [facility] Address [address] [place] [address] Care Team Providers Care Interactive Digital Media Specialist Name Role Phone Richard Fish NP Primary [...] Type Department Care Team Description 08/23/[address] [address] Hannah Wilder, GEURO Scheduling Appointments 08/12/[address] [address] Hannah Wilder, GUERO Scheduling Appointments [...] complete this topic Insurance [facility] Care Teams Interactive Digital Media Specialist Relationship Specialty Start Date End Date Richard Fish NP [address] [place] [address] [place] [address] PCP - General Nurse Practitioner 02/13/24
--- OUTSIDE RECORDS SUMMARY | 2024-09-05 18:35 | XMS_ITS ---
Author Organization [facility] Address [address] [place] [address] Phone Care Team Providers Care Seafood Team Member Name Role Phone Gabriel Salmeron MD Unavailable [...]
--- OUTSIDE RECORDS SUMMARY | 2024-09-05 18:35 | XMS_ITS | CONTINUITY OF CARE DOCUMENT ---
Author Name christopher white Address Unknown Organization [facility] Address [address] [place] [address] [address] [place] [address] Phone [phone] Care Team Providers Care Compensation Intern Name Role Phone Randy Armstrong MD Unavailable Randy Armstrong MD Unavailable [phone] INSURANCE PROVIDERS Payer name Policy type / Coverage type [place] red republican ID GARN[place] MEDICAID Medicaid [id number]
--- OUTSIDE RECORDS SUMMARY | 2024-09-05 18:35 | XMS_ITS | Referral Summary ---
Author Organization [place] [id number] [facility] Address [address] [place] [address] Care Team Providers Care Quilt Sewer Name Role Phone Richard Fish NP Primary Care Provider Encounters Date Type Department Care Team Description 08/23/[address] [address] Hannah Wilder, GUERO Scheduling Appointments 08/12/[address] [address] Hannah Wilder, GUERO Scheduling Appointments [...] Plan of Treatment Not on file Insurance [facility] Care Teams Quilt Sewer Relationship Specialty Start Date End Date Richard Fish NP [address] [place] [address] [place] [address] PCP - General Nurse Practitioner 02/13/24
--- OUTSIDE RECORDS SUMMARY | 2024-09-05 18:35 | XMS_ITS | Encounter Summary ---
Author Organization [facility] Address [address] [facility] [facility] [place] [address] Care Team Providers Care Vending Route Driver Name Role Phone Unavailable Primary Care Provider Unavailabl e Encounter Details Date Type Department Care Team (Late st Contact Info) Description 12/18/2022 Lab Requisition [facility] - Pathology Lab [address] [place] [address] Ishan Escobedo MD [address] [facility] [address] [place] [address] Generalized enlarged lymph nodes Social History [...] AM CDT) Case Report Flow Cytometry Case: [id number] Authorizing Provider: Ishan Escobedo MD Collected: 12/18/2022 09:00 AM Ordering Location: [facility] Care Pathology Lab Received: 12/18/2022 03:11 PM Pathologist: Giovanni Chow MD Specimen: Axillary Lymph Node, RIGHT 12/18/2022 5:15 PM CDT [facility] Final Diagnosis Axillary lymph node, flow cytometry: - [place] light chain restricted CD10+ B-cell population detected (~99% of overall events) 12/18/2022 5:15 PM CDT [facility] at 1714 CDT Flow Cytometry Interpretation Viability: 87%. B-cells: monoclonal, kappa-restricted, expressing CD19, CD20, and CD10. T-cells: not increased, no immunophenotypic aberrancy. A cytospin prepared from the flow cytometry specimen has been reviewed for senior data quality analyst purposes. 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 Histologic slides are pending for final subclassification. 12/18/2022 5:15 PM [facility] Flow Cytometry Results Differential Result Comment Flow Cell Count /uL 9,000 Total Viability % 87.0 Lymphocytes % 99 Dim CD45 Region % 0 Monocytes % 0 Granulocytes % 1 12/18/2022 5:15 PM [facility] Reason for test Generalized enlarged lymph nodes 785.6 12/18/2022 5:15 PM [facility] Client Specimen ID # [id number] 12/18/2022 5:15 PM [facility] Number of markers 16 were performed. A-2 Flow CD3 A-4 Flow CD10 A-6 Flow CD20 A-7 Flow CD23 A-12 Flow CD2 A-13 Flow CD4 A-16 Flow CD1a A-3 Flow CD5 A-5 Flow CD19 A-8 Flow CD34 A-9 Flow CD45 A-14 Flow CD7 A-15 Flow CD8 A-17 Flow CD30 A-10 [place]+CD19+ A-11 Lambda+CD19+ 12/18/2022 5:15 PM [facility] Pathologist Location at [facility] 12/18/2022 5:15 PM [facility] Disclaimer Test performed at [facility], [address] [place] [address], [address]. *The established laboratory minimum viability is 70%. [...] PATHOLOGY LAB Embedded Images 5:15 PM CDT [facility] Pathology/Cytolo gy AXILLARY LYMPH NODE STRUCTURE / Unknown 12/18/2022 9:00 AM CDT 12/18/2022 3:11 PM CDT us Ishan Escobedo MD LAB - PATHOLOGY/CYTOLOGY ORDERAB LES Final Result [facility] LAB [address] [phone] documented in this encounter Visit Diagnoses Diagnosis Generalized enlarged lymph nodes Enlargement of lymph nodes documented in this encounter
--- OUTSIDE RECORDS SUMMARY | 2024-09-05 18:35 | XMS_ITS | Clinical Summary ---
Author Organization [facility] Address [address] [place] [address] Care Team Providers Care Osteologist Name Role Phone Unavailable Primary Care Provider Unavailabl e Source Comments [facility],non-owned Affiliates and Associated Physician Practices is amultiple site organization consisting of ambulatory clinics and hospital sitesin [place], [place], [place] and [place]. This disclosure is being madepursuant to the Care Everywhere program and may not contain all information available regarding this patient. Last updated 17.[facility] Social History Tobacco Use Types Packs/Day Years [...] patient's age to complete this topic [place] [place] [address]
--- OUTSIDE RECORDS SUMMARY | 2024-09-05 18:35 | XMS_ITS | Encounter Summary ---
Author Organization [facility] Address [address] [place] [address] Care Team Providers Care Hand Woven Carpet And Rug Mender Name Role Phone Unavailable Primary Care Provider Unavailabl e Encounter Details Date Type Department Care Team (Late st Contact Info) Description 12/19/2022 Lab Requisition [facility] - Pathology Lab [address] [place] [address] Ishan Escobedo MD [address] [address] Illness, unspecified Social History Tobacco [...] CDT) Case Report Surgical Pathology Report Case: [id number] Authorizing Provider: Ishan Escobedo MD Collected: 12/18/2022 09:00 AM Ordering Location: [facility] Care Pathology Lab Received: 12/19/2022 01:25 [...] CD10 co-expression. Axillary lymph node, flow cytometry ([id number]): - [place] light chain restricted CD10+ B-cell population detected (~99% of overall events) Also received from [facility] is a peripheral smear showing circulating follicular lymphoma cells with occasional nuclear clefts. The peripheral blood is involved by follicular lymphoma. 12/19/2022 3:33 PM CDT [facility] Clinical History Suspect lymphoma. 12/19/2022 3:33 PM [facility] Materials Received Received are 4 slide(s) and 1 block labeled [id number] along with a copy of the outside pathology report. The materials originate from [facility], [address] [place] [address]. All original materials are returned to the referring institution, along with a copy of our final report. 12/19/2022 3:33 PM T [facility] Pathologist Location at [facility] 12/19/2022 3:33 PM T [facility] Disclaimer The performance characteristics of all immunohistochemical and indirect immunofluorescence stains (if any) cited in this report were determined by the Histopathology Laboratory of [facility]. Some of these tests were [...] attending (teaching) pathologist. 12/19/2022 3:33 PM T [facility] Embedded Images 12/19/2022 3:33 PM T [facility] Pathology/Cytolo gy BIOPSY OF LYMPH NODE / Unknown 12/18/2022 9:00 AM CDT 12/19/2022 1:25 PM CDT us Ishan Escobedo MD LAB - PATHOLOGY/CYTOLOGY ORDERAB LES Final Result [facility] [address] [facility] [place]. [address] [phone] documented in this encounter Visit Diagnoses Diagnosis Illness, unspecified documented in this encounter
--- OUTSIDE RECORDS SUMMARY | 2024-09-05 18:35 | XMS_ITS ---
Author Organization [facility] Address [address] [place] [address] Phone Care Team Providers Care Tech Writer Name Role Phone Gabriel Salmeron MD Unavailable [phone] Brooks Sosa MD Unavailable [phone] Provider, None Primary Care Provider UnavailKervin Rubi MD Unavailable [phone] [facility] Status:Enrolled (Active) Start date:05/05/2024 Enrollment date:05/05/2024 Related social drivers of health:Social Connections, Tobacco Use, Depression, Stress, Physical Activity, Utilities Continued Care and Services Coordination
--- OUTSIDE RECORDS SUMMARY | 2024-09-05 18:35 | XMS_ITS | Clinical Summary ---
Author Organization [facility] Address [address] [place] [address] Care Team Providers Care Licensed Plumber Name Role Phone Unavailable Primary Care Provider [...] Pain, Mild. Active naloxone (NARCAN) 4 mg/spray [place], Non-Aerosol EMERGENCY USE ONLY: Administer 1 spray [...] Data STL ABSTRACTION Provider, Abstract 08/17/2024 Telephone [facility] Oncology and Hematology - [address] [address] Marv Hernandes MD Re-establishing care [...] Comments Blood Pressure 109/66 04/17/2023 8:40 AM PUBLIC HEALTH DIETITIAN Pulse 111 04/17/2023 8:40 AM PUBLIC HEALTH DIETITIAN Temperature 36.6 C (97.9 F) 04/17/2023 8:40 AM PUBLIC HEALTH DIETITIAN Respiratory Rate 10 04/17/2023 8:40 AM PUBLIC HEALTH DIETITIAN Oxygen Saturation 92% 03/27/2023 11:06 AM PUBLIC HEALTH DIETITIAN Inhaled Oxygen Concentration - - Weight 51.3 kg (113 lb) 04/17/2023 8:40 AM PUBLIC HEALTH DIETITIAN Height 162.6 cm (5' 4) 03/24/2023 6:27 PM PUBLIC HEALTH DIETITIAN Body Mass Index 19.4 03/24/2023 6:27 PM PUBLIC HEALTH DIETITIAN Plan of Treatment Health Maintenance Due Date [...] Advance Directives For more information, please contact: [phone] * Full Code (Latest Code Status on File) Date Activated Date Inactivated Comments 03/25/2023 1:09 AM 03/26/2023 3:29 PM
[2024-09-05 18:36] LABS: Basophils Percent Auto 0.8 % (0.2-1.2); Eosinophils Absolute Auto 0.1 K/mm3 (0-0.3); Eosinophils Percent Auto 1.2 % (0-4.4); Hematocrit 32.9 % (37.0-47.0); Hemoglobin 11.4 g/dL (12.0-15.0); Immature Granulocyte Absolute 0.01 K/mm3 (0.00-0.031); Immature Granulocyte Percent A 0.2 % (0-0.5); Lymphocytes Percent Auto 29.1 % (18.3-44.2); Mean Corpuscular HGB Conc 34.7 g/dl (32-36); Mean Corpuscular Hemoglobin 31.6 pg (26-34); Mean Corpuscular Volume 91.1 fl (80-100); Mean Platelet Volume 9.2 fl (7.4-10.4); Monocytes Absolute Auto 0.4 K/mm3 (0.1-0.6); Monocytes Percent Auto 7.9 % (2.6-8.5); Neutrophils Absolute Auto 2.9 K/mm3 (1.3-6.7); Neutrophils Percent Auto 60.8 % (45.5-73.1); Platelet Count Result 128 k/mm3 (150-375); Red Blood Count 3.61 M/mm3 (4.2-5.4); White Blood Count 4.8 K/mm3 (4.5-10.0)
[2024-09-05 18:48] LABS: Alanine Aminotransferase 16 U/L (6-35); Albumin Level 4.1 g/dL (3.5-5.1); Alkaline Phosphatase 169 U/L (38-126); Anion Gap 9 mmol/L (4-12); Aspartate Amino Transferase 28 U/L (14-36); Bilirubin,Total 0.6 mg/dL (0.2-1.3); Blood Urea Nitrogen 6 mg/dL (7-17); Carbon Dioxide 28 mmol/L (22-30); Chloride 100 mmol/L (98-107); Estimated CRCL calculation 85 ml/min; Estimated Glomerular Filt Rate > 60; Glucose 78 mg/dL (65-110); Potassium 2.7 mmol/L (3.4-5.0); Sodium 137 mmol/L (137-145)
[2024-09-05] MEDS: POTASSIUM CHLORIDE 20 MEQ PACKET (FOR LIQUID) PO (18:57)
[2024-09-05] MEDS: POTASSIUM CHLORIDE 20 MEQ ER TABLET 40 MEQ PO ×2 (18:57→20:38)
--- NOTE | 2024-09-05 19:37 | ED.ABDPAIN ---
HPI - Abdominal Pain General Chief Complaint: Abdominal Pain Stated Complaint: Abd pain, leg pain, discharge Time Seen by Provider: 09/05/24 18:21 History of Present Illness HPI narrative: Patient presenting with abdominal pain, new lymph node swelling to left neck and under arm, night sweats some weight loss, which has been ongoing over last 2 weeks, she has also noticed heavier vaginal bleeding than her usual periods and is concerned for miscarriage. She does have a history lymphoma that was treated and is trying to get established at [facility] onc[facility] at [facility] Related Data Home Medications ?Medication ?Instructions ?Recorded ?Confirmed ?Last Taken ?Type hydroxyzine HCl 25 mg tablet 25 mg PO TID 03/21/23 03/27/23 Unknown History methylprednisolone 4 mg tablets in mg 03/21/23 03/21/23 Unknown History a dose pack hydroxyzine HCl 25 mg tablet mg 09/30/23 Unknown History ibuprofen 600 mg tablet mg 09/30/23 Unknown History megestrol 400 mg/10 mL (40 mg/mL) mg 09/30/23 Unknown History oral suspension morphine 30 mg immediate release mg 09/30/23 Unknown History tablet ondansetron 4 mg disintegrating mg 09/30/23 Unknown History tablet pregabalin 50 mg capsule mg 09/30/23 Unknown History promethazine 25 mg rectal mg RECTAL 09/30/23 Unknown History suppository (Promethegan) valacyclovir 500 mg tablet mg 09/30/23 Unknown History Allergies Allergy/AdvReac Type Severity Reaction Status Date / Time azithromycin AdvReac Nausea Verified 08/06/24 08:45 codeine AdvReac Vomiting Verified 08/06/24 08:45 diphenhydramine (From AdvReac Jittery Verified 08/06/24 08:45 Benadryl) pecan nut AdvReac Nausea and Verified 08/06/24 08:45 Vomiting pregabalin AdvReac Unknown Verified 08/06/24 08:45 Review of Systems Review of Systems: All systems reviewed & are unremarkable except as noted in HPI and below PMFSH Past Medical History Medical History Drug-induced psychotic disorder Atypical bipolar disorder Anxiety MRSA infection buttock and leg during last lengthy incarceration (2020) Ectopic Methamphetamine abuse, episodic History of heroin use Surgical History Surgical History 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 L Side. History of salpingo-oophorectomy Social History Social History Social History: Currently living with boyfriend. Full Code. Surrogate decision maker - Isaiah Beverly (step-dad), if unavailable then Marlene Carbone (mom). Smoking packs per day: 1 Smoking cigarettes per day: 20.0 Years smoked: 11 Smoking pack-years: 11.00 Smoking status: Current every day smoker Tobacco type: cigarettes Alcohol intake: current Drinks per week: 1 Alcohol use details: social Substance use: former Substance use type: marijuana Other substance usage details: QUIT USING EARLY DEC 2022 D/T DIAGNOSIS & SURGERY Last use: last use of heroin-September 2014 Lack of Transportation: No Lack of Food: Never True Current Housing: I Have Housing Concerned About Future Housing: No Difficulty Paying Gas/Electric Bills: No Difficulty Paying for Meds: No Currently Unemployed: No Education: High School Diploma/GED Difficulty w/ Childcare or Family Care: No Living arrangements: with friend(s) Additional living arrangements comments: boyfriend Spiritual care concerns: No Exam Narrative: EXAMINATION OF ORGAN SYSTEMS/BODY AREAS: Constitutional: Vital signs per nursing GENERAL: Tearful HEAD: Normal with no signs of head trauma. EYES: EOMI, conjunctiva normal ENT: Left submandibular lymphadenopathy LUNGS: Nonlabored breathing. HEART: [Regular rate and rhythm] ABD: [Soft], no focal tenderness EXT: Normal range of motion, left axilla lymphadenopathy SKIN: [No rashes or lesions.] NEURO: [Alert and oriented x 3. No gross focal sensory or strength deficits.] PSYCH: Tearful affect Course Vital Signs Vital signs: Vital Signs Temperature 97.6 F 09/05/24 15:55 Pulse Rate 100 09/05/24 15:55 Respiratory Rate 16 09/05/24 15:55 Blood Pressure 105/68 09/05/24 15:55 Pulse Oximetry 98 09/05/24 15:55 Oxygen Delivery Room Air 09/05/24 15:55 Temperature 97.6 F 09/05/24 15:55 Pulse Rate 100 09/05/24 15:55 Respiratory Rate 16 09/05/24 15:55 Blood Pressure 105/68 06/01/25 15:55 Pulse Oximetry 98 09/05/24 15:55 Oxygen Delivery Room Air 09/05/24 15:55 MDM - Abdominal Pain MDM Narrative Medical decision making narrative: Patient presents with concern that she may be having a miscarriage and that her lymphoma may be returning. On exam she is intermittently tearful, does have lymphadenopathy to left submandibular and axilla, no focal tenderness. Had a CT recently here showing likely lymphoma. Shared decision making with patient, will not repeat CT here, but she has has been trying to establish care with [facility] and was told she should get a call soon. I did have our imaging pushed to [facility], and I did speak with the Oncology fellow there today to see if there is expedited outpatient follow-up per patient request and she did offer transfer of patient so that they can be evaluated for possible transformation of her lymphoma. I did discuss this plan with the patient, however she states that she would really rather just have symptom control here and go home. I did let her know that this could result in delays of diagnosis and care and result in more difficulties in her treatment and possibly even her , patient is understanding of this, I did let her know if she changes her mind she can always return to the ER here or go to [place]. Potassium low here and is repleted, I understand she is on Suboxone and has prior diagnosis of pain seeking however she was not specifically asking for narcotics here, and given her exam I do note that she has new lymphadenopathy compared to 1 month ago so at this time I do feel given her a acute diagnosis we could give 1 dose of morphine here. Lab Data 09/05/24 18:31 09/05/24 18:31 Labs: Lab Results 09/05/24 09/05/24 09/05/24 Range/Units 16:07 16:09 18:31 WBC 4.8 (4.5-10.0) K/mm3 RBC 3.61 L (4.2-5.4) M/mm3 Hgb 11.4 L (12.0-15.0) g/dL Hct 32.9 L (37.0-47.0) % MCV 91.1 (80-100) fl MCH 31.6 (26-34) pg MCHC 34.7 (32-36) g/dl RDW 14.0 (11.5-14.5) % Plt Count 128 L (150-375) k/mm3 MPV 9.2 (7.4-10.4) fl Immature Gran % (Auto) 0.2 (0-0.5) % Neut % (Auto) 60.8 (45.5-73.1) % Lymph % (Auto) 29.1 (18.3-44.2) % [place] % (Auto) 7.9 (2.6-8.5) % Eos % (Auto) 1.2 (0-4.4) % Baso % (Auto) 0.8 (0.2-1.2) % Lymph # (Auto) 1.40 (0.9-3.2) K/mm3 [place] # (Auto) 0.4 (0.1-0.6) K/mm3 Eos # (Auto) 0.1 (0-0.3) K/mm3 Baso # (Auto) 0.0 (0.0-0.1) K/mm3 Abs Immat Gran (auto) 0.01 (0.00-0.031) K/mm3 Absolute Neuts (auto) 2.9 (1.3-6.7) K/mm3 Absolute Nucleated RBC 0.000 (0.0-0.012) K/mm3 Nucleated RBC % 0.0 (0.0-0.2) % Sodium 137 (137-145) mmol/L Potassium 2.7 L* (3.4-5.0) mmol/L Chloride 100 (98-107) mmol/L Carbon Dioxide 28 (22-30) mmol/L Anion Gap 9 (4-12) mmol/L BUN 6 L (7-17) mg/dL Creatinine 0.64 L (0.7-1.0) mg/dL Estim Creat Clear Calc 85 ml/min Estimated GFR > 60 (59 - ) Glucose 78 (65-110) mg/dL Calcium 9.0 (8.4-10.2) mg/dL Total Bilirubin 0.6 (0.2-1.3) mg/dL AST 28 (14-36) U/L ALT 16 (6-35) U/L Alkaline Phosphatase 169 H (38-126) U/L Total Protein 6.0 L (6.3-8.2) g/dL Albumin 4.1 (3.5-5.1) g/dL Urine Color Yellow (Yellow) Urine Appearance Clear (Clear) Urine pH 7.0 (5.0-9.0) Ur Specific [place] 1.012 (1.001-1.035) Urine Protein Negative (Negative) mg/dL Urine Glucose (UA) Negative (Negative) mg/dL Urine Ketones Negative (Negative) mg/dL Ur Blood (Man) Negative (Negative) Urine Nitrate Negative (Negative) Urine Bilirubin Negative (Negative) Urine Urobilinogen 1.0 (<2.0) mg/dL Leukocyte Esterase Rfl Negative (Negative) EMMANUELLE/UL POC Urine HCG, Qual Negative (Negative) Discharge Plan Discharge Clinical Impression: Lymphadenopathy, Abdominal pain, Acute hypokalemia Patient Disposition: Home Condition: Stable Additional Instructions: Your signs and symptoms today are highly concerning of cancer. I did offer you transfer to [facility] for hem/onc, and I did send them imaging from our CT from August. You did feel comfortable going home to wait for outpatient followup. Please come back to the ER if things get worse or if you change your mind about staying in the hospital. You should also get a recheck of your labs including your potassium in the next 2-3 days with your doctor. Patient Language: Greek Prescriptions: New potassium chloride 20 mEq/15 mL liquid 20 meq PO DAILY 7 Days Qty: 105 0RF No Action oxycodone-acetaminophen [Percocet] 10-325 mg tablet 1 tablet PO Q4H PRN (Reason: pain) Qty: 5 0RF ondansetron 4 mg tablet,disintegrating 4 mg PO Q6H PRN (Reason: nausea and vomiting) Qty: 20 0RF hydroxyzine HCl 25 mg tablet 25 mg PO TID methylprednisolone 4 mg tablets,dose pack promethazine 25 mg suppository 25 mg RECTAL Q6H PRN (Reason: nausea and vomiting) Qty: 12 0RF ondansetron 4 mg tablet,disintegrating 4 mg PO Q8H PRN (Reason: nausea and vomiting) Qty: 30 0RF oxycodone-acetaminophen [Percocet] 10-325 mg tablet 1 tablet PO Q6H PRN (Reason: pain) Qty: 20 0RF ondansetron 4 mg tablet,disintegrating 4 mg PO Q8H PRN (Reason: nausea and vomiting) Qty: 10 0RF amoxicillin-pot clavulanate 875-125 mg tablet 1 tablet PO Q12H 7 Days Qty: 14 0RF promethazine 25 mg suppository 25 mg RECTAL Q6H PRN (Reason: nausea and vomiting) Qty: 12 0RF megestrol 400 mg/10 mL (40 mg/mL) suspension promethazine [Promethegan] 25 mg suppository RECTAL valacyclovir 500 mg tablet morphine 30 mg tablet hydroxyzine HCl 25 mg tablet ibuprofen 600 mg tablet ondansetron 4 mg tablet,disintegrating pregabalin 50 mg capsule phenazopyridine [Pyridium] 200 mg tablet 200 mg PO TID Qty: 6 0RF Follow-up/Referrals: PHYSICIAN,SPECTROGRAPHIC ANALYST [Primary Care Provider] -
[2024-09-05 20:06] LABS: Lactate Dehydrogenase 187 U/L (120-246); Phosphorus 3.4 mg/dL (2.5-4.5); Uric Acid 3.9 mg/dL (2.5-7.5)
[2024-09-05] MEDS: LACTATED RINGERS 1,000 ML 999 ML IV CONT (20:37)
[2024-09-05] MEDS: MORPHINE SULFATE (*CRX) 4 MG/ML INJ IV PUSH (20:38)
--- NOTE | 2024-09-05 20:55 | PC.NURSE ---
patient refused to continue and finish her bolus of fluids and refused other medications ordered at this time stating, I am ready to go home.
== END 2024-09-05 20:56 | disposition home or self-care (01) ==
PROVIDERS: Emergency Medicine; Emergency Provider Emergency Medicine
DX: R59.1 Generalized enlarged lymph nodes (principal); E87.6 Hypokalemia; R10.9 Unspecified abdominal pain; F17.210 Nicotine dependence, cigarettes, uncomplicated; F41.9 Anxiety disorder, unspecified
CPT/HCPCS: 36415; 80053; 81003; 81025; 83615; 84100; 84550; 85025; 96361; 96374; 99284; A9270; J2270; J7120

== ENCOUNTER 2024-09-15 19:31 | Emergency (ER) | payer OTHER, SELFPAY ==
--- OUTSIDE RECORDS SUMMARY | 2024-09-15 19:34 | XMS_ITS | Encounter Summary ---
Author Organization [facility] Healthcare Address [address] [place] [address] Care Team Providers Care Local Delivery Truck Driver Name Role Phone Richard Fish WALLPAPER PRINTER HELPER Primary Care Provider Encounter Details Date Type Department Care Team (Late st Contact Info) Description 09/15/2024 9:44 AM CDT Hospital Encounter [facility] [place] [address] Arrived Social History Tobacco Use Types Packs/Day Years Used Date Smoking Tobacco: Never Assessed Personal Safety Answer Date Recorded Have you ever been in or are you currently in a harmful physical or emotional relationship or is someone making you feel afraid or unsafe? Denies 09/13/2024 Comments No Sex and Gender Information Value Date Recorded Sex Assigned at Not on file Legal Sex Female 6:50 AM CDT Gender Identity Not on file Sexual Orientation Not on file documented as of this encounter Plan of Treatment Not on file documented as of this encounter Procedures Procedure Name Priority Date/Time Associated Diagnosis Comments CT BODY OUTSIDE REFERENCE Routine 09/15/2024 9:44 AM CDT documented in this encounter Results * CT Body Outside Reference (09/15/2024 9:44 AM CDT) Impressions [facility] - 09/15/2024 9:44 AM CDT These images are for Reference purposes only and have not been reviewed by [facility] Radiology. There will be no report generated by a [facility] Radiologist. Narrative [facility] - 09/15/2024 9:44 AM CDT EXAMINATION: Images For Reference Purposes Only us Ramy Aguilera MD IMG CT PROCEDURES Final Resu lt [facility] documented in this encounter Visit Diagnoses Not on filedocumented in this encounter Care Teams Local Delivery Truck Driver Relationship Specialty Start Date End Date Richard Fish NP [address] [place] [address] [place] [address] PCP - General Nurse Practitioner 02/13/24 documented as of this encounter
--- OUTSIDE RECORDS SUMMARY | 2024-09-15 19:34 | XMS_ITS | Clinical Summary ---
Author Organization [place] [id number] [facility] Address [address] [place] [address] Care Team Providers Care Tow Feeder Name Role Phone Richard Fish NP Primary Care Provider Allergies Active Allergy Reactions Criticality Noted Date Comments Azithromycin Vomiting Low 04/07/2022 Diphenhydramine Muscle pain,Other (S ee comments),Unknown Medium 06/13/2023 Idiopathic reaction--hyperactivit y Restless leg Idiopathic reaction--hyperactivit y Restless leg Medications ketorolac (TORADOL) 10 mg tablet Take 1 tablet (10 mg total) by mouth every 6 (six) hours as needed for pain 20 tablet 3 Active lidocaine viscous (XYLOCAINE) 2 % solution Apply 5 mL topically every 3 (three) hours 100 mL 3 Active buprenorphine-n aloxone (SUBOXONE) 8-[address] 1 Film under the tongue daily 2 Film 4 Active traMADoL (ULTRAM) 50 mg tablet Take 1 tablet (50 mg total) by mouth every 6 (six) hours as needed for pain 15 tablet 5 Active Encounters Date Type Department Care Team Description 09/15/2024 9:49 AM CDT Hospital Encounter [facility] [address] [place] [address] Arrived 09/15/2024 9:48 AM CDT Hospital Encounter [facility] [address] [place] [address] Arrived 09/15/2024 9:47 AM CDT Hospital Encounter [facility] [address] [place] [address] Arrived 09/15/2024 9:47 AM CDT Hospital Encounter [facility] [address] [place] [address] Arrived 09/15/2024 9:46 AM CDT Hospital Encounter [facility] [address] [place] [address] Arrived 09/15/2024 9:45 AM CDT Hospital Encounter [facility] [address] [place] [address] Arrived 09/15/2024 9:45 AM CDT Hospital Encounter [facility] [address] [place] [address] Arrived 09/15/2024 9:44 AM CDT Hospital Encounter [facility] [address] [place] [address] Arrived 09/15/2024 Orders Only [facility] [address] [address] Ramy Aguilera MD Lymphoma of lymph nodes (HCC) 09/14/2024 Orders Only [facility] [address] [facility] [address] [place] [id number] Ramy Aguilera MD Lymphoma of lymph nodes (HCC) (Primary Dx) 09/13/2024 7:06 PM CDT - 09/13/2024 8:33 PM CDT Emergency [facility] Emergency Department [address] [place], [place] [id number] Mario Murray DO Lymphoma, unspecified body region, unspecified lymphoma type (HCC) (Primary Dx); Hypokalemia; Vaginal bleeding; Myalgia Discharge Disposition: Discharge to home or self care 09/05/2024 Documentation [facility] [address] [facility] Floor 8 [place] [id number] Nora Cheema MD 08/23/[address] [phone] Hannah Wilder, RN Scheduling Appointments 08/12/[address] [phone] Hannah Wilder, RN Scheduling Appointments from Last 3 Months Immunizations [...] Sign Reading Time Taken Comments Blood Pressure 102/67 09/13/2024 7:30 PM CDT Pulse 99 09/13/2024 7:30 PM CDT Temperature 36.4 C (97.6 F) 09/13/2024 3:32 PM CDT Respiratory Rate 17 09/13/2024 3:32 PM CDT Oxygen Saturation 96% 09/13/2024 7:30 PM CDT Inhaled Oxygen Concentration - - Weight 53.2 kg (117 lb 4.6 oz) 09/13/2024 3:32 P M CDT Height 162.6 cm (5' 4) 09/28/2023 7:04 PM CDT Body Mass Index 20.13 09/28/2023 7:04 PM CDT Plan of Treatment [...] on patient's age to complete this topic Procedures Procedure Name Priority Date/Time Associated Diagnosis Comments CT BODY OUTSIDE REFERENCE Routine 09/15/2024 9:[address] BODY OUTSIDE REFERENCE Routine 09/15/2024 9:[address] BODY OUTSIDE REFERENCE Routine 09/15/2024 9:[address] BODY OUTSIDE REFERENCE Routine 09/15/2024 9:47 AM CDT PET OUTSIDE REFERENCE Routine 09/15/2024 9:[address] BODY OUTSIDE REFERENCE Routine 09/15/2024 9:45 AM CDT PET OUTSIDE REFERENCE Routine 09/15/2024 9:[address] BODY OUTSIDE REFERENCE Routine 09/15/2024 9:44 AM CDT URINALYSIS AND REFLEX TO MICROSCOPIC AND CULTURE STAT 09/13/2024 7:18 PM CDT POCT GLUCOSE DEVICE Routine 09/13/2024 7 :10 PM CDT ECG 12-LEAD STAT 09/13/2024 3:43 PM CDT URIC ACID STAT 09/13/2024 3:43 PM CDT PHOSPHORUS STAT 09/13/2024 3:43 PM CDT LACTATE DEHYDROGENASE STAT 09/13/2024 3:43 PM CDT MAGNESIUM STAT 09/13/2024 3:43 PM CDT HCG, BLOOD, QUANTITATIVE STAT 09/13/2024 3:43 PM CDT EGFR STAT 09/13/2024 3:43 PM CDT DIFFERENTIAL AUTO STAT 09/13/2024 3:4 3 PM CDT LIPASE STAT 09/13/2024 3:43 PM CDT COMPREHENSIVE METABOLIC PANEL STAT 09/13/2024 3:43 PM CDT CBC WITH AUTO DIFFERENTIAL STAT 09/13/2024 3:43 PM CDT from Last 3 Months Results * CT Body Outside Reference (09/15/2024 9:49 AM CDT) Impressions [facility] - 09/15/2024 9:49 AM CDT These images are for Reference purposes only and have not been reviewed by [facility]. There will be no report generated by a [facility]iologist. Narrative [facility] - 09/15/2024 9:49 AM CDT EXAMINATION: Images For Reference Purposes Only us Ramy Aguilera MD IMG CT PROCEDURES Final Resu lt [facility] * CT Body Outside Reference (09/15/2024 9:48 AM CDT) Impressions [facility] - 09/15/2024 9:48 AM CDT These images are for Reference purposes only and have not been reviewed by [facility]. There will be no report generated by a [facility] Radiologist. Narrative [facility] - 09/15/2024 9:48 AM CDT EXAMINATION: Images For Reference Purposes Only us Ramy Tino Aguilera MD IMG CT PROCEDURES Final Resu lt Performing Organization Address [facility] Co de Phone Number [email or web address] * CT Body Outside Reference (09/15/2024 9:47 AM CDT) Impressions [facility] - 09/15/2024 9:47 AM CDT These images are for Reference purposes only and have not been reviewed by [facility]. There will be no report generated by a [facility] Radiologist. Narrative [facility] - 09/15/2024 9:47 AM CDT EXAMINATION: Images For Reference Purposes Only us Ramy Aguilera MD IMG CT PROCEDURES Final Resu Performing Organization Address [facility] de Phone Number [email or web address] * CT Body Outside Reference (09/15/2024 9:47 AM CDT) Impressions [facility] - 09/15/2024 9:47 AM CDT These images are for Reference purposes only and have not been reviewed by [facility]. There will be no report generated by a [facility] Radiologist. Narrative [facility] - 09/15/2024 9:47 AM CDT EXAMINATION: Images For Reference Purposes Only us Ramy Aguilera MD IMG CT PROCEDURES Final Resu lt Performing Organization Address [facility] de Phone Number [email or web address] * PET Outside Reference (09/15/2024 9:46 AM CDT) Impressions [facility] - 09/15/2024 9:46 AM CDT These images are for Reference purposes only and have not been reviewed by [facility]. There will be no report generated by a [facility]iologist. Narrative [facility] - 09/15/2024 9:46 AM CDT EXAMINATION: Images For Reference Purposes Only us Ramy Aguilera MD IMG PET PROCEDURES Final Res ult Performing Organization Address [facility] de Phone Number [email or web address] * CT Body Outside Reference (09/15/2024 9:45 AM CDT) Impressions [facility] - 09/15/2024 9:45 AM CDT These images are for Reference purposes only and have not been reviewed by [facility]. There will be no report generated by a [facility]iologist. Narrative [facility] - 09/15/2024 9:45 AM CDT EXAMINATION: Images For Reference Purposes Only us Ramy Aguilera MD IMG CT PROCEDURES Final Resu lt Performing Organization Address [facility] de Phone Number [email or web address] * PET Outside Reference (09/15/2024 9:45 AM CDT) Impressions [facility] - 09/15/2024 9:45 AM CDT These images are for Reference purposes only and have not been reviewed by [facility]. There will be no report generated by a [facility] Radiologist. Narrative [facility] - 09/15/2024 9:45 AM CDT EXAMINATION: Images For Reference Purposes Only us Ramy Aguilera MD IMG PET PROCEDURES Final Res ult Performing Organization Address [facility] de Phone Number [email or web address] * CT Body Outside Reference (09/15/2024 9:44 AM CDT) Impressions [facility] - 09/15/2024 9:44 AM CDT These images are for Reference purposes only and have not been reviewed by [facility]. There will be no report generated by a [facility] Radiologist. Narrative [facility] - 09/15/2024 9:44 AM CDT EXAMINATION: Images For Reference Purposes Only us Ramy Aguilera MD IMG CT PROCEDURES Final Resu lt [facility] * Urinalysis reflex to microscopic and culture Urine (09/13/2024 7:18 PM CDT) Color, ur Yellow Yellow Comment:Testing performed by : [address] [address] Clarity, ur Clear Clear JOSELYN Comment:Testing performed by : [address] [address] Specific gravity, ur 1.009 1.003 - 1.030 JOSELYN Comment:Testing performed by : [address] [address] pH, urine 6.5 JOSELYN Comment: Interpretive Data U rine pH is affected by diet, medications, systemic acid-base disturbances, and renal tubular function. pH may affect urinary stone formation. For example, urine pH below 6.0 may help reduce the tendency for calcium phosphate stones and pH greater than 6.0 may reduce the tendency for uric acid stone formation. Source: [place] [employer] Current Interpretive Data was last revised on 2017 Testing performed by: [address] [address] Protein, ur ql Negative Negative JOSELYN Comment:Testing performed by : [address] [address] Glucose, ur ql Negative Negative JOSELYN Comment:Testing performed by : [address] [address] Ketones, ur Negative Negative JOSELYN Comment:Testing performed by : [address] [address] Bilirubin, ur Negative Negative JOSELYN Comment:Testing performed by : [address] [address] Blood, ur Negative Negative JOSELYN Comment:Testing performed by : [address] [address] Urobilinogen, ur <2.0 <2.0 mg/dL JOSELYN VAZQUEZ Comment:Testing performed by : [address] [address] Nitrite, ur Negative Negative JOSELYN VAZQUEZ Comment:Testing performed by : [facility], [address] [place] [address]., [address] Leukocyte esterase, ur Negative Negative JOSELYN VAZQUEZ Comment:Testing performed by : [address] [address] UA reflex comment Reflex conditions for microscopic UA and culture not met. JOESLYN VAZQUEZ Comment:Testing performed by : [address] [address] Urine 09/13/2024 7:18 PM CDT 09/13/2024 7:22 PM CDT Mario Murray DO LAB MICROBIOLOGY - GENERAL ORD ERABLES Final Result Performing Organization Address [facility] Co de Phone Number JOSELYN [address] [place] [address] * POCT glucose (09/13/2024 7:10 PM CDT) [facility] Glucose, POC 104 70 - 199 mg/dL Comment:Testing performed by : [address] [address] Glucose comment 1 RN/MD Notified JOSELYN VAZQUEZ Comment:Testing performed by : [facility], [address] [place] [address]., [address] Blood 09/13/2024 7:10 PM CDT 09/13/2024 7:10 PM CDT us [employer] Unknown LAB POCT ORDERABLES - DEVICE F inal Result Performing Organization Address [facility]/ZIP Co de Phone Number [address] [place] [address] * ECG 12 lead (09/13/2024 3:43 PM CDT) [facility] Ventricular Rate EKG/Min 103 BPM [facility] Atrial Rate 103 BPM [facility] IN-Interval (MSEC) 128 ms [facility] QRS-Interval (MSEC) 88 ms [facility] QT-Interval (MSEC) 358 ms [facility] QTc 468 ms [facility] P [place] 54 degrees [facility] R [place] 55 degrees [facility] T [place] 38 degrees [facility] Diagnosis Sinus tachycardia Possible Left atrial enlargement RSR' or QR pattern in V1 suggests right ventricular conduction delay Nonspecific T wave abnormality Abnormal ECG No previous ECGs available Confirmed by YANDY LEON M.D. ([id number]) on 09/13/2024 8:06:17 PM [facility] 09/13/2024 3:43 PM CDT 09/13/2024 8:06 PM CDT Mario Murray DO ECG ORDERABLES Final Result Performing Organization Address [facility] de Phone Number [facility] * eGFR (09/13/2024 3:43 PM CDT) eGFR >90 >=60 mL/min/1. 73 m2 Comment: Interpretive Data Reference Interval Normal >/= 90 mL/min/1.73m2 Mildly decreased* 60 - 89 mL/min/1.73m2 Mildly to moderately decreased 45 - 59 mL/min/1.73m2 Moderately to severely decreased 30 - 44 mL/min/1.73m2 Severely decreased 15 - 29 mL/min/1.73m2 Kidney Failure < 15 mL/min/1.73m2 *Relative to young adult level Estimated glomerular filtration rate is determined by the 2020 CKD-EPI equation recommended by the National Kidney Foundation (A Unifying Approach to GFR Estimation: Recommendations of the NKF-ASK Task Force on Reassessing the Inclusion of Race in Diagnosing Kidney Disease, JASN 2020). The CKD-EPI equation should not be used for patients with unstable renal function and has not been validated in children and those over 70. Current interpretive data was last reviewed 2021. Testing performed by: [facility], [address] [place] [address], [place]., [address] Blood 09/13/2024 3:43 PM CDT 09/13/2024 3:48 PM CDT us Mario Murray DO LAB BLOOD ORDERABLES Final Res ult Performing Organization Address City/[facility]/ZIP Co de Phone Number JOSELYN [address] [facility] Department [place] [address] * Differential, auto (09/13/2024 3:43 PM CDT) Neutrophil abs 2.62 1.50 - 6.50 K/cumm Comment:Testing performed by : [address] [address] Imm gran abs 0.02 0.00 - 0.10 K/cumm JOSELYN Comment:Testing performed by : [address] [address] Lymphocyte abs 2.86 0.80 - 3.30 K/cumm JOSELYN Comment:Testing performed by : [address] [address] Monocyte abs 0.58 0.20 - 0.80 K/cumm JOSELYN Comment:Testing performed by : [address] [address] Eosinophil abs 0.09 0.00 - 0.50 K/cumm JOSELYN Comment:Testing performed by : [address] [address] Basophil abs 0.05 0.00 - 0.10 K/cumm JOSELYN Comment:Testing performed by : [address] [address] Neutrophil pct 42.2 % JOSELYN Comment: Interpretive Data Percent cell count reference ranges are not reported, since discordance with absolute values may lead to misinterpretation of CBC data. Current Interpretive Data was last revised on 2017. Testing performed by: [address] [address] Imm gran pct 0.3 % JOSELYN Comment: Interpretive Data Percent cell count reference ranges are not reported, since discordance with absolute values may lead to misinterpretation of CBC data. Current Interpretive Data was last revised on 2017. Testing performed by: [address] [address] Lymphocyte pct 46.0 % JOSELYN Comment: Interpretive Data Percent cell count reference ranges are not reported, since discordance with absolute values may lead to misinterpretation of CBC data. Current Interpretive Data was last revised on 2017. Testing performed by: [address] [address] Monocyte pct 9.3 % JOSELYN Comment: Interpretive Data Percent cell count reference ranges are not reported, since discordance with absolute values may lead to misinterpretation of CBC data. Current Interpretive Data was last revised on 2017. Testing performed by: [address] [address] Eosinophil pct 1.4 % JOSELYN Comment: Interpretive Data Percent cell count reference ranges are not reported, since discordance with absolute values may lead to misinterpretation of CBC data. Current Interpretive Data was last revised on 2017. Testing performed by: [address] [address] Basophil pct 0.8 % JOSELYN Comment: Interpretive Data Percent cell count reference ranges are not reported, since discordance with absolute values may lead to misinterpretation of CBC data. Current Interpretive Data was last revised on 2017. Testing performed by: [address] [address] Blood 09/13/2024 3:43 PM CDT 09/13/2024 3:48 PM CDT us Mario Murray DO LAB BLOOD ORDERABLES Final Res ult [facility] [address] [facility] Department [place] [address] * (ABNORMAL) CBC with auto differential (09/13/2024 3:43 PM CDT) WBC 6.22 3.80 - 9.90 K/cumm Comment:Testing performed by : [address] [address] Hgb 12.6 11.9 - 15.5 g/dL JOSELYN Comment:Testing performed by : [address] [address] Hct 35.9 35.6 - 45.5 % JOSELYN VAZQUEZ Comment:Testing performed by : [address] [address] Plt 168 150 - 400 K/cumm JOSELYN Comment:Testing performed by : [address] [address] MPV 9.3 9.1 - 12.3 fL JOSELYN VAZQUEZ Comment:Testing performed by : [address] [address] RBC 4.00 3.90 - 5.20 M/cumm JOSELYN Comment:Testing performed by : [address] [address] MCV 89.8 81.3 - 96.4 fL JOSELYN Comment:Testing performed by : [address] [address] MCH 31.5 27.1 - 33.3 pg JOSELYN VAZQUEZ Comment:Testing performed by : [address] [address] MCHC 35.1 32.3 - 35.7 g/dL JOSELYN Comment:Testing performed by : [address] [address] RDW CV 15.3(H) 11.1 - 14.9 % JOSELYN Comment:Testing performed by : [address] [address] RDW SD 49.8(H) 35.7 - 48.1 fL JOSELYN Comment:Testing performed by : [address] [address] NRBC abs 0.00 0.00 - 0.01 K/cumm JOSELYN Comment:Testing performed by : [address] [address] Blood Venous blood specimen / Unknown 09/13/2024 3:43 PM CDT 09/13/2024 3:48 PM CDT us aMrio Murray DO LAB BLOOD ORDERABLES Final Res ult JOSELYN VAZQUEZ [address] [facility] Department [place] [address] * hCG, blood, quantitative (09/13/2024 3:43 PM CDT) Pathologist [facility] hCG, quant <5.0 0.0 - 5.0 IUnits/L Comment: Interpretive Data Male: < 5 IU/L Non- premenopausal Female: <5 IU/L The [employer] hCG Beta Quant assay procedure was used. Results from different manufacturers or methods may not be comparable. Serial testing should be performed using the same method. Interpretive Data was last revised on 2023 Testing performed by: [address] [address] Blood 09/13/2024 3:43 PM CDT 09/13/2024 3:48 PM CDT [facility] LAB BLOOD ORDERABLES Edited Re sult - Final Performing Organization Address City/[facility]/ZIP Co de Phone Number JOSELYN [address] [place] [address] * Uric acid (09/13/2024 3:43 PM CDT) [facility] Uric acid 5.0 2.5 - 7.0 mg/dL Comment:Testing performed by : [address] [address] Blood 09/13/2024 3:43 PM CDT 09/13/2024 3:48 PM CDT [facility] LAB BLOOD ORDERABLES Final Res ult [address] [address] * Phosphorus (09/13/2024 3:43 PM CDT) Pathologist [facility] Phosphorus, pl 3.0 2.3 - 4.5 mg/dL Comment:Testing performed by : [address] [address] Blood 09/13/2024 3:43 PM CDT 09/13/2024 3:48 PM CDT Mario Murray DO LAB BLOOD ORDERABLES Final Res ult Performing Organization Address [facility] Co de Phone Number D[address] [address] * Magnesium (09/13/2024 3:43 PM CDT) Pathologist [facility] Magnesium 1.8 1.4 - 2.5 mg/dL Comment:Testing performed by : [address] [address] Blood 09/13/2024 3:43 PM CDT 09/13/2024 3:48 PM CDT Spike Peraels III, MD LAB BLOOD ORDERABLES F inal Result Performing Organization Address [facility] de Phone Number [address] [address] * Lipase (09/13/2024 3:43 PM CDT) [facility] Lipase 11 10 - 99 Units/L Comment:Testing performed by : [address] [address] Blood Venous blood specimen / Unknown 09/13/2024 3:43 PM CDT 09/13/2024 3:48 PM CDT Mario Murray DO LAB BLOOD ORDERABLES Final Res ult Performing Organization Address [facility] Co de Phone Number [address] [address] * Lactate dehydrogenase (LD) (09/13/2024 3:43 PM CDT) [facility] Lactate dehydrogenase (LDH) 216 100 - 250 Units/L Comment:Testing performed by : [address] [address] Blood 09/13/2024 3:43 PM CDT 09/13/2024 3:48 PM CDT Mario Murray DO LAB BLOOD ORDERABLES Final Res ult JOSELYN [address] [facility] Department [place] [address] * (ABNORMAL) Comprehensive metabolic panel (09/13/2024 3:43 PM CDT) Sodium 143 135 - 145 mmol/L Comment:Testing performed by : [address] [address] Potassium, pl 2.7(L) 3.3 - 4.9 mmol/L JOSELYN Comment:Testing performed by : [address] [address] Chloride 99 97 - 110 mmol/L JOSELYN Comment:Testing performed by : [address] [address] CO2 28 22 - 32 mmol/L JOSELYN Comment:Testing performed by : [address] [address] Anion gap 16(H) 2 - 15 mmol/L JOSELYN Comment:Testing performed by : [address] [address] BUN 5(L) 6 - 25 mg/dL JOSELYN Comment:Testing performed by : [address] [address] Creatinine 0.60 0.60 - 1.10 mg/dL JOSELYN Comment:Testing performed by : [address] [address] Glucose 69(L) 70 - 199 mg/dL JOSELYN Comment: Interpretive Data Fasting glucose >/= 126 mg/dl is diagnostic for diabetes. Fasting is defined as no caloric intake for at least 8 hours. Fasting glucose between 100 mg/dl to 125 mg/dl is diagnostic of prediabetes. In a patient with classic symptoms of hyperglycemia or hyperglycemic crisis, a random glucose >/= 200 mg/dl is diagnostic for diabetes. In the absence of unequivocal hyperglycemia, results should be confirmed by repeat testing. The classification and Diagnosis of Diabetes Diabetes Care 202; 46: S19-S40. Current interpretive data was last revised 2022. Testing performed by: [address] [address] Calcium 9.2 8.5 - 10.3 mg/dL JOSELYN Comment:Testing performed by : [address] [address] Bilirubin, total 0.5 0.1 - 1.2 mg/dL JOSELYN Comment:Testing performed by : [address] [address] Protein, pl 6.4(L) 6.5 - 8.5 g/dL JOSELYN Comment:Testing performed by : [address] [address] Albumin 4.2 3.5 - 5.0 g/dL JOSELYN Comment:Testing performed by : [address] [address] Alk phos 155(H) 40 - 130 Units/L JOSELYN Comment:Testing performed by : [address] [address] ALT 6(L) 7 - 45 Units/L JOSELYN Comment:Testing performed by : [address] [address] AST 15 10 - 45 Units/L JOSELYN Comment:Testing performed by : [address] [address] Blood 09/13/2024 3:43 PM CDT 09/13/2024 3:48 PM CDT us Mario Murray DO LAB BLOOD ORDERABLES Final Res ult JOSELYN VAZQUEZ [address] [facility] Department [place] [address] from Last 3 Months Insurance [facility] [facility] Care Teams Tow Feeder Relationship Specialty Start Date End Date Richard Fish NP [address] [place] [address] [place] [address] PCP - General Nurse Practitioner 02/13/24
--- OUTSIDE RECORDS SUMMARY | 2024-09-15 19:34 | XMS_ITS | Encounter Summary ---
Author Organization [facility] Address [address] [place] [address] Care Team Providers Care Performance Specialist Name Role Phone Richard Fish GAME AUTHOR Primary Care Provider Encounter Details Date Type Department Care Team (Late st Contact Info) Description 09/15/2024 9:48 AM CDT Hospital Encounter [facility] Formerly [facility], [facility] [place] [address] Arrived Social History Tobacco Use Types Packs/Day [...] Comments CT BODY OUTSIDE REFERENCE Routine 09/15/2024 9:48 AM CDT documented in this encounter Results * CT Body Outside Reference (09/15/2024 9:48 AM CDT) Impressions [facility] - 09/15/2024 9:48 AM CDT These images are for Reference purposes only and have not been reviewed by [facility]. There will be no report generated by a [facility] Radiologist. Narrative RAD_PACS_[facility] - 09/15/2024 9:48 AM CDT EXAMINATION: Images For Reference Purposes Only us Ramy Aguilera MD IMG CT PROCEDURES Final Resu lt [facility] documented in this encounter Visit Diagnoses Not on filedocumented in this encounter Care Teams Performance Specialist Relationship Specialty Start Date End Date Richard Fish NP [address] [place] [address] [place] [address] PCP - General Nurse Practitioner 02/13/24 documented as of this encounter
--- OUTSIDE RECORDS SUMMARY | 2024-09-15 19:34 | XMS_ITS | Referral Summary ---
Author Organization [facility] [address] [facility] Address [address] [place] [address] Care Team Providers Care Oracle Engineer Name Role Phone Richard Fish NP Primary Care Provider Encounters Date Type Department Care Team Description 09/15/2024 Orders Only [facility] [address] [place] [address] Ramy Aguilera MD Lymphoma of lymph nodes (HCC) 09/15/2024 9:49 AM CDT Hospital Encounter [facility]) [address] [place] [address] Arrived 09/15/2024 9:48 AM CDT Hospital Encounter [facility] ([facility]) [address] [place] [address] Arrived 09/15/2024 9:47 AM CDT Hospital Encounter [facility]) [address] [place] [address] Arrived 09/15/2024 9:47 AM CDT Hospital Encounter [facility] ([facility]) [address] [place] [address] Arrived 09/15/2024 9:46 AM CDT Hospital Encounter [facility]) [address] [place] [address] Arrived 09/15/2024 9:45 AM CDT Hospital Encounter [facility]) [address] [place] [address] Arrived 09/15/2024 9:45 AM CDT Hospital Encounter [facility]) [address] [place] [address] Arrived 09/15/2024 9:44 AM CDT Hospital Encounter [facility]) [address] [place] [address] Arrived 09/14/2024 Orders Only [facility] [address] [facility] [address] [place] [id number] Ramy Aguilera MD Lymphoma of lymph nodes (HCC) (Primary Dx) 09/13/2024 7:06 PM CDT - 09/13/2024 8:33 PM CDT Emergency [facility] Emergency Department [address] [place] [address] Mario Murray DO Lymphoma, unspecified body region, unspecified lymphoma type (HCC) (Primary Dx); Hypokalemia; Vaginal bleeding; Myalgia Discharge Disposition: Discharge to home or self care 09/05/2024 Documentation [facility] [address] [facility] Floor [address] [place] [address] Nora Cheema MD 08/23/[address] [phone] Hannah Wilder, GUERO Scheduling Appointments 08/12/[address] [phone] Hannah Wilder, GUERO Scheduling Appointments from Last [...] needed for pain 15 tablet 5 Active Immunizations Immunization Administration Dates Next Due [...] CDT Plan of Treatment Not on file Procedures Procedure Name Priority Date/Time Associated Diagnosis [...] Outside Reference (09/15/2024 9:49 AM CDT) Impressions [facility] - 09/15/2024 9:49 AM CDT These images are for Reference purposes only and have not been reviewed by [facility]. There will be no report generated by a [facility] Radiologist. Narrative [facility] - 09/15/2024 9:49 AM CDT EXAMINATION: Images For Reference Purposes Only us Ramy Aguilera MD IMG CT PROCEDURES Final Resu lt Performing Organization Address [facility] de Phone Number [facility] * CT Body Outside Reference (09/15/2024 9:48 AM CDT) Impressions [facility] - 09/15/2024 9:48 AM CDT These images are for Reference purposes only and have not been reviewed by [facility]. There will be no report generated by a [facility] Radiologist. Narrative [facility] - 09/15/2024 9:48 AM CDT EXAMINATION: Images For Reference Purposes Only us Ramy Aguilera MD IMG CT PROCEDURES Final Resu lt Performing Organization Address [facility] de Phone Number [facility] * CT Body Outside Reference (09/15/2024 9:47 AM CDT) Impressions [facility] - 09/15/2024 9:47 AM CDT These images are for Reference purposes only and have not been reviewed by [facility]. There will be no report generated by a [facility] Radiologist. Narrative [facility] - 09/15/2024 9:47 AM CDT EXAMINATION: Images For Reference Purposes Only us Ramy Aguilera MD IMG CT PROCEDURES Final Resu lt Performing Organization Address [facility] Co de Phone Number [facility] * CT Body Outside Reference (09/15/2024 9:47 AM CDT) Impressions [facility] - 09/15/2024 9:47 AM CDT These images are for Reference purposes only and have not been reviewed by [facility]. There will be no report generated by a [facility] Radiologist. Narrative [facility] - 09/15/2024 9:47 AM CDT EXAMINATION: Images For Reference Purposes Only us Ramy Aguilera MD IMG CT PROCEDURES Final Resu lt Performing Organization Address [facility] de Phone Number [facility] * PET Outside Reference (09/15/2024 9:46 AM CDT) Impressions [facility] - 09/15/2024 9:46 AM CDT These images are for Reference purposes only and have not been reviewed by [facility]. There will be no report generated by a [facility] Radiologist. Narrative [facility] - 09/15/2024 9:46 AM CDT EXAMINATION: Images For Reference Purposes Only us Ramy Aguilera MD IMG PET PROCEDURES Final Res ult Performing Organization Address [facility] de Phone Number [facility] * CT Body Outside Reference (09/15/2024 9:45 AM CDT) Impressions [facility] - 09/15/2024 9:45 AM CDT These images are for Reference purposes only and have not been reviewed by [facility]. There will be no report generated by a [facility] Radiologist. Narrative [facility] - 09/15/2024 9:45 AM CDT EXAMINATION: Images For Reference Purposes Only us Ramy Aguilera MD IMG CT PROCEDURES Final Resu lt Performing Organization Address [facility] de Phone Number [facility] * PET Outside Reference (09/15/2024 9:45 AM CDT) Impressions [facility] - 09/15/2024 9:45 AM CDT These images are for Reference purposes only and have not been reviewed by [facility]. There will be no report generated by a [facility] Radiologist. Narrative [facility] - 09/15/2024 9:45 AM CDT EXAMINATION: Images For Reference Purposes Only us Ramy Aguilera MD IMG PET PROCEDURES Final Res ult Performing Organization Address [facility] Co de Phone Number [facility] * CT Body Outside Reference (09/15/2024 9:44 AM CDT) Impressions [facility] - 09/15/2024 9:44 AM CDT These images are for Reference purposes only and have not been reviewed by [facility]. There will be no report generated by a [facility] Radiologist. Narrative [facility] - 09/15/2024 9:44 AM CDT EXAMINATION: Images For Reference Purposes Only us Ramy Aguilera MD IMG CT PROCEDURES Final Resu lt Performing Organization Address [facility] Co de Phone Number [facility] * Urinalysis reflex to microscopic and culture Urine (09/13/2024 7:18 PM CDT) Color, ur Yellow Yellow Comment:Testing performed by : [address] [address] Clarity, ur Clear Clear JOSELYN Comment:Testing performed by : [address] [address] Specific gravity, ur 1.009 1.003 - 1.030 JOSELYN Comment:Testing performed by : [address] [address] pH, urine 6.5 JOSELYN Comment: Interpretive Data U rine pH is affected by diet, medications, systemic acid-base disturbances, and renal tubular function. pH may affect urinary stone formation. For example, urine pH below 6.0 may help reduce the tendency for calcium phosphate stones and pH greater than 6.0 may reduce the tendency for uric acid stone formation. Source: [facility] [employer] Current Interpretive Data was last revised on 2017 Testing performed by: [facility], [address] [place] [address]., [address] Protein, ur ql Negative Negative JOSELYN Comment:Testing performed by : [address] [address] Glucose, ur ql Negative Negative JOSELYN Comment:Testing performed by : [address] [address] Ketones, ur Negative Negative JOSELYN Comment:Testing performed by : [address], [place]., [address] Bilirubin, ur Negative Negative JOSELYN Comment:Testing performed by : [address] [address] Blood, ur Negative Negative JOSELYN Comment:Testing performed by : [address], [place]., [address] Urobilinogen, ur <2.0 <2.0 mg/dL JOSELYN Comment:Testing performed by : [address] [address] Nitrite, ur Negative Negative JOSELYN Comment:Testing performed by : [address] [address] Leukocyte esterase, ur Negative Negative JOSELYN Comment:Testing performed by : [address] [address] UA reflex comment Reflex conditions for microscopic UA and culture not met. JOSELYN Comment:Testing performed by : [address] [address] Urine 09/13/2024 7:18 PM CDT 09/13/2024 7:22 PM CDT us Mario Murray DO LAB MICROBIOLOGY - GENERAL ORD ERABLES Final Result JOSELYN VAZQUEZ [address] [facility] Department [place] [address] * POCT glucose (09/13/2024 7:10 PM CDT) [facility] Glucose, POC 104 70 - 199 mg/dL Comment:Testing performed by : [facility], [address] [place] [address]., [address] Glucose comment 1 RN/MD Notified JOSELYN Comment:Testing performed by : [facility], [address] [place] [address]., [address] Blood 09/13/2024 7:10 PM CDT 09/13/2024 7:10 PM CDT us Notinfile Unknown LAB POCT ORDERABLES - DEVICE F inal Result Performing Organization Address City/[facility]/ZIP Co de Phone Number JOSELYN [address] [facility] [place] [address] * ECG 12 lead (09/13/2024 3:43 PM CDT) [facility] Ventricular Rate EKG/Min 103 BPM [facility] Atrial Rate 103 BPM [facility] NH-Interval (MSEC) 128 ms [facility] QRS-Interval (MSEC) 88 ms [facility] QT-Interval (MSEC) 358 ms [facility] QTc 468 ms [facility] P [place] 54 degrees [facility] R [place] 55 degrees [facility] T [place] 38 degrees [facility] Diagnosis Sinus tachycardia Possible Left atrial enlargement RSR' or QR pattern in V1 suggests right ventricular conduction delay Nonspecific T wave abnormality Abnormal ECG No previous ECGs available Confirmed by YANDY LEON M.D. ([id number]) on 09/13/2024 8:06:17 PM [facility] 09/13/2024 3:43 PM CDT 09/13/2024 8:06 PM CDT us Mario Murray DO ECG ORDERABLES Final Result Performing Organization Address City/[facility]/ZIP Co de Phone Number [facility] * eGFR (09/13/2024 3:43 PM CDT) [facility] eGFR >90 >=60 mL/min/1. 73 m2 Comment: [...] was last reviewed 2021. Testing performed by: [address] [address] Blood 09/13/2024 3:43 PM CDT 09/13/2024 3:48 PM CDT us Mario Murray DO LAB BLOOD ORDERABLES Final Res ult JOSELYN [address] [facility] Department [place] [address] * Differential, auto (09/13/2024 3:43 PM CDT) [facility] Neutrophil abs 2.62 1.50 - 6.50 K/cumm Comment:Testing performed by : [address] [address] Imm gran abs 0.02 0.00 - 0.10 K/cumm JOSELYN Comment:Testing performed by : [address] [address] Lymphocyte abs 2.86 0.80 - 3.30 K/cumm JOSELYN Comment:Testing performed by : [address] [address] Monocyte abs 0.58 0.20 - 0.80 K/cumm JOSELYN Comment:Testing performed by : [address] [address] Eosinophil abs 0.09 0.00 - 0.50 K/cumm JOSELYN Comment:Testing performed by : [address] [address] Basophil abs 0.05 0.00 - 0.10 K/cumm [facility] Comment:Testing performed by : [address] [address] Neutrophil pct 42.2 % [facility] Comment: Interpretive Data Percent cell count reference ranges are not reported, since discordance with absolute values may lead to misinterpretation of CBC data. Current Interpretive Data was last revised on 2017. Testing performed by: [address] [address] Imm gran pct 0.3 % [facility] Comment: Interpretive Data Percent cell count reference ranges are not reported, since discordance with absolute values may lead to misinterpretation of CBC data. Current Interpretive Data was last revised on 2017. Testing performed by: [address] [address] Lymphocyte pct 46.0 % [facility] Comment: Interpretive Data Percent cell count reference ranges are not reported, since discordance with absolute values may lead to misinterpretation of CBC data. Current Interpretive Data was last revised on 2017. Testing performed by: [address] [address] Monocyte pct 9.3 % [facility] Comment: Interpretive Data Percent cell count reference ranges are not reported, since discordance with absolute values may lead to misinterpretation of CBC data. Current Interpretive Data was last revised on 2017. Testing performed by: [address] [address] Eosinophil pct 1.4 % [facility] Comment: Interpretive Data Percent cell count reference ranges are not reported, since discordance with absolute values may lead to misinterpretation of CBC data. Current Interpretive Data was last revised on 2017. Testing performed by: [address] [address] Basophil pct 0.8 % [facility] Comment: Interpretive Data Percent cell count reference ranges are not reported, since discordance with absolute values may lead to misinterpretation of CBC data. Current Interpretive Data was last revised on 2017. Testing performed by: [address] [address] Blood 09/13/2024 3:43 PM CDT 09/13/2024 3:48 PM CDT Mario Murray DO LAB BLOOD ORDERABLES Final Res ult JOSELYN [address] [facility] Department [place] [address] * (ABNORMAL) CBC with auto differential (09/13/2024 3:43 PM CDT) WBC 6.22 3.80 - 9.90 K/cumm Comment:Testing performed by : [address] [address] Hgb 12.6 11.9 - 15.5 g/dL JOSELYN Comment:Testing performed by : [address] [address] Hct 35.9 35.6 - 45.5 % JOSELYN Comment:Testing performed by : [address] [address] Plt 168 150 - 400 K/cumm JOSELYN Comment:Testing performed by : [address] [address] MPV 9.3 9.1 - 12.3 fL JOSELYN Comment:Testing performed by : [address] [address] RBC 4.00 3.90 - 5.20 M/cumm JOSELYN Comment:Testing performed by : [address] [address] MCV 89.8 81.3 - 96.4 fL JOSELYN Comment:Testing performed by : [address] [address] MCH 31.5 27.1 - 33.3 pg JOSELYN VAZQUEZ Comment:Testing performed by : [address] [address] MCHC 35.1 32.3 - 35.7 g/dL JOSELYN VAZQUEZ Comment:Testing performed by : [address] [address] RDW CV 15.3(H) 11.1 - 14.9 % JOSELYN VAZQUEZ Comment:Testing performed by : [address] [address] RDW SD 49.8(H) 35.7 - 48.1 fL JOSELYN VAZQUEZ Comment:Testing performed by : [address] [address] NRBC abs 0.00 0.00 - 0.01 K/cumm JOSELYN VAZQUEZ Comment:Testing performed by : [address] [address] Blood Venous blood specimen / Unknown 09/13/2024 3:43 PM CDT 09/13/2024 3:48 PM CDT Mario Murray DO LAB BLOOD ORDERABLES Final Res ult JOSELYN [address] [facility] Department [place] [address] * hCG, blood, quantitative (09/13/2024 3:43 PM CDT) Pathologist [facility] hCG, quant <5.0 0.0 - 5.0 IUnits/L Comment: Interpretive Data Male: < 5 IU/L Non- premenopausal Female: <5 IU/L The [employer] hCG Beta Quant assay procedure was used. Results from different manufacturers or methods may not be comparable. Serial testing should be performed using the same method. Interpretive Data was last revised on 2023 Testing performed by: [address] [address] Blood 09/13/2024 3:43 PM CDT 09/13/2024 3:48 PM CDT Mario Murray LAB BLOOD ORDERABLES Edited Re sult - Final Performing Organization Address [facility]/ZIP Co de Phone Number JOSELYN [address] [address] * Uric acid (09/13/2024 3:43 PM CDT) Uric acid 5.0 2.5 - 7.0 mg/dL Comment:Testing performed by : [address] [address] Blood 09/13/2024 3:43 PM CDT 09/13/2024 3:48 PM CDT Mario Murray DO LAB BLOOD ORDERABLES Final Res ult Performing Organization Address [facility] Co de Phone Number JOSELYN [address] [address] * Phosphorus (09/13/2024 3:43 PM CDT) Phosphorus, pl 3.0 2.3 - 4.5 mg/dL Comment:Testing performed by : [address] [address] Blood 09/13/2024 3:43 PM CDT 09/13/2024 3:48 PM CDT Mario Murray DO LAB BLOOD ORDERABLES Final Res ult Performing Organization Address [facility] Co de Phone Number DARRIN[address] [address] * Magnesium (09/13/2024 3:43 PM CDT) Magnesium 1.8 1.4 - 2.5 mg/dL Comment:Testing performed by : [address] [address] Blood 09/13/2024 3:43 PM CDT 09/13/2024 3:48 PM CDT Spike Perales III, MD LAB BLOOD ORDERABLES F inal Result Performing Organization Address [facility] Co de Phone Number [address] [address] * Lipase (09/13/2024 3:43 PM CDT) Pathologist [facility] Lipase 11 10 - 99 Units/L Comment:Testing performed by : [address] [address] Blood Venous blood specimen / Unknown 09/13/2024 3:43 PM CDT 09/13/2024 3:48 PM CDT Mario Murray DO LAB BLOOD ORDERABLES Final Res ult Performing Organization Address [facility] Co de Phone Number [address] [place] [employer] [place] [address] * Lactate dehydrogenase (LD) (09/13/2024 3:43 PM CDT) Pathologist [facility] Lactate dehydrogenase (LDH) 216 100 - 250 Units/L Comment:Testing performed by : [address] [address] Blood 09/13/2024 3:43 PM CDT 09/13/2024 3:48 PM CDT Mario Murray DO LAB BLOOD ORDERABLES Final Res ult Performing Organization Address [facility] Co de Phone Number [address] [place] [employer] [place] [address] * (ABNORMAL) Comprehensive metabolic panel (09/13/2024 3:43 PM CDT) Pathologist [facility] Sodium 143 135 - 145 mmol/L Comment:Testing performed by : [address] [address] Potassium, pl 2.7(L) 3.3 - 4.9 mmol/L JOSELYN Comment:Testing performed by : [address] [address] Chloride 99 97 - 110 mmol/L [facility] Comment:Testing performed by : [address] [address] CO2 28 22 - 32 mmol/L [facility] Comment:Testing performed by : [address] [address] Anion gap 16(H) 2 - 15 mmol/L JOSELYN Comment:Testing performed by : [address] [address] BUN 5(L) 6 - 25 mg/dL [facility] Comment:Testing performed by : [address] [address] Creatinine 0.60 0.60 - 1.10 mg/dL JOSELYN Comment:Testing performed by : [address] [address] Glucose 69(L) 70 - 199 mg/dL [facility] Comment: Interpretive Data Fasting glucose >/= 126 [...] was last revised 2022. Testing performed by: [address] [address] Calcium 9.2 8.5 - 10.3 mg/dL [facility] Comment:Testing performed by : [address] [address] Bilirubin, total 0.5 0.1 - 1.2 mg/dL [facility] Comment:Testing performed by : [address] [address] Protein, pl 6.4(L) 6.5 - 8.5 g/dL [facility]IN[facility] NAMED [facility] Comment:Testing performed by : [address] [address] Albumin 4.2 3.5 - 5.0 g/dL JOSELYN VAZQUEZ Comment:Testing performed by : [facility], [address] [place] [address]., [address] Alk phos 155(H) 40 - 130 Units/L JOSELYN VAZQUEZ Comment:Testing performed by : [address] [address] ALT 6(L) 7 - 45 Units/L JOSELYN VAZQUEZ Comment:Testing performed by : [address] [address] AST 15 10 - 45 Units/L JOSELYN VAZQUEZ Comment:Testing performed by : [address] [address] Blood 09/13/2024 3:43 PM CDT 09/13/2024 3:48 PM CDT us Mario Murray DO LAB BLOOD ORDERABLES Final Res ult Performing Organization Address City/State/[facility] Co de Phone Number JOSELYN [address] [facility] Department [place] [address] from Last 3 Months Insurance [facility] Care Teams Oracle Engineer Relationship Specialty Start Date End Date Richard Fish NP [address] [place] [address] PCP - General Nurse Practitioner 02/13/24
--- OUTSIDE RECORDS SUMMARY | 2024-09-15 19:34 | XMS_ITS | Encounter Summary ---
Author Organization [facility] Healthcare Address [address] [place] [address] Care Team Providers Care Power Crane Operator Name Role Phone Richard Fish ROOF TILE LAYER Primary Care Provider Encounter Details Date Type Department Care Team (Late st Contact Info) Description 09/15/2024 9:49 AM CDT Hospital Encounter [facility] [place] [address] Arrived Social History Tobacco Use Types Packs/Day [...] OUTSIDE REFERENCE Routine 09/15/2024 9:49 AM CDT documented in this encounter Results * CT Body Outside Reference (09/15/2024 9:49 AM CDT) Impressions RAD_PACS_[facility] - 09/15/2024 9:49 AM CDT These images are for Reference purposes only and have not been reviewed by [facility] Radiology. There will be no report generated by a [facility] Radiologist. Narrative RAD_PACS_[facility] - 09/15/2024 9:49 AM CDT EXAMINATION: Images For Reference Purposes Only us Ramy Aguilera MD IMG CT PROCEDURES Final Resu lt [facility]_PACS_[facility] documented in this encounter Visit Diagnoses Not on filedocumented in this encounter Care Teams Power Crane Operator Relationship Specialty Start Date End Date Richard Fish NP [address] [place] [address] [place] [address] PCP - General Nurse Practitioner 02/13/24 documented as of this encounter
--- OUTSIDE RECORDS SUMMARY | 2024-09-15 19:34 | XMS_ITS ---
Author Organization [facility] Address [address] [place] [address] Phone Care Team Providers Care Fitness Teacher Name Role Phone Gabriel Salmeron MD Unavailable [phone] Brooks Sosa MD Unavailable [phone] Provider, None Primary Care Provider UnavailKervin Rubi MD Unavailable [facility] Status:Enrolled (Active) Start date:05/05/2024 Enrollment date:05/05/2024 Related social drivers of health:Social Connections, Tobacco Use, Depression, Stress, Physical Activity, Utilities Continued Care and Services Coordination
--- OUTSIDE RECORDS SUMMARY | 2024-09-15 19:34 | XMS_ITS | Encounter Summary ---
Author Organization [facility] Address [address] [place] [address] Phone Care Team Providers Care Citrix Lead Name Role Phone Richard Fish NP Primary Care Provider Encounter Details Date Type Department Care Team (Late st Contact Info) Description 09/14/2024 Orders Only [facility] Oncology [address] [place] [address] [address] [place] [address] Ramy Aguilera MD [address] [place], [place] [id number] Lymphoma of lymph nodes (HCC) (Primary Dx) Social History Tobacco Use Types Packs/Day Years [...] as of this encounter Plan of Treatment Scheduled Orders Name Type Priority Associated Diagnoses Orde r Schedule Surgical pathology Pathology and Cytology Routine Lymphoma of lymph nodes (HCC) Expected: 09/14/2024, Expires: 09/14/2025 documented as of this encounter Visit Diagnoses Diagnosis Lymphoma of lymph nodes (HCC)- Primary documented in this encounter Care Teams Citrix Lead Relationship Specialty Start Date End Date Richard Fish NP [address] [facility] [place] [address] PCP - General Nurse Practitioner 02/13/24 documented as of this encounter
--- OUTSIDE RECORDS SUMMARY | 2024-09-15 19:34 | XMS_ITS | Encounter Summary ---
Author Organization [facility] Address [address] [place] [address] Phone Care Team Providers Care Porcelain Turner Name Role Phone Richard Fish NP Primary Care Provider Encounter Details Date Type Department Care Team (Late st Contact Info) Description 09/15/2024 Orders Only [facility] [address] [place] [address] Ramy Aguilera MD [address] [place] [address] Lymphoma of lymph nodes (HCC) Social History Tobacco Use Types Packs/Day Years [...] on file documented as of this encounter Visit Diagnoses Diagnosis Lymphoma of lymph nodes (HCC) documented in this encounter Orders Lab Orders Without Results Count Last Ordered D ate First Ordered Date SURGICAL PATHOLOGY 1 09/15/2024 documented in this encounter Care Teams Porcelain Turner Relationship Specialty Start Date End Date Richard Fish NP [address] [facility] [place] [address] PCP - General Nurse Practitioner 02/13/24 documented as of this encounter
--- OUTSIDE RECORDS SUMMARY | 2024-09-15 19:34 | XMS_ITS | Patient Health Record ---
Author Organization [facility] Address [address] [place] [address] Care Team Providers Care Senior Core Java Developer Name Role Phone NavyanilaRichard Primary Care Provider [phone] Satya Fernandez Unavailable [phone] Mandi Love Unavailable [phone] Evie Epps Unavailable [phone] Minerva Peacock Unavailable [phone] Allergies Allergen (clinical drug ingredient) Drug/Non Drug [...] PM Interpretation: Performing Lab: Notes/Report: THC POS UJLISA neg MOP (OPI) neg AMP POS MET [...] PERINEUM Diagnosis 1 Abscess (L02.91) Referral Organization [facility] Referring Provider First Name Satya Referring Provider Last Name Rebecca Referring Provider Speciality Internal M edicine Referred Provider Specialty Surgery General Notes GUERO Song Valeri e A 02/13/2024 09:35:39 AM > Referral to [facility] Colon and Rectal Surgery. Letter to pt. Clinical Notes [facility] Colon and Rectal Surgery, [address] [facility], Phone#[phone], Referral Priority Routine Reason IMPACTED MOLAR AND S EVERE CARIES RIGHT LOWER JAW THAT DENTIST DECLINED TO TREAT Diagnosis 1 Dental caries (K02.9 ) Referral Organization [facility] Referring Provider First Name Satya Referring Provider Last Name Rebecca Referring Provider Speciality Internal M edicine Referred Provider Specialty Dental Gener al Practice General Notes GUERO Song Valeri e A 02/13/2024 09:57:12 AM > Referral to [facility] Dentistry. Letter to pt. Clinical Notes [facility] Adult Dentist, [address] [place] [address], , Referral Priority Routine Reason anxiety, shanna Diagnosis 1 Opioid use disorder (F11.99) Referral Organization [facility] Referring Provider First Name Minerva Referring [...] phone, visiting friends or family, going to gnosticism or club meetings) More than 5 times a week How stressed are you? Stress is when someone feels tense, nervous, anxious, or can\t sleep at night because their mind is troubled A little bit In the past year have you sp ent more than 2 nights in a row in a group home, usp, senior care center, or juvenile correctional facility? 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) Active confirmed Problem Opioid use disorder (9234673403) Opioid use disorder (F11.99) Active confirmed Vital Signs Heart Rate 81 /min 08/19/2024 Temperature 98.4 degrees Fahrenheit 08/19/2024 Respiratory Rate 16 /min 08/19/2024 Blood pressure diastolic 78 mm Hg 08/19/2024 Oximetry 98 % 08/19/2024 Height 62 in 08/19/2024 Blood pressure systolic 110 mm Hg 08/19/2024 Weight 115.2 lbs 08/19/2024 BMI 21.07 kg/m2 08/19/2024 Encounters Encounter Location Date Provider Diagnosis [address] [place] [address] 12/19/2023 Jenia Heavens Opioid use disorder F11.99 and Nicotine dependence, unspecified, uncomplicated F17.[address] [address] [address] [place] [address] 01/01/2024 Jenia Heavens Opioid use disorder F11.99 and Nicotine dependence, unspecified, uncomplicated F17.200 [address] [address] [place] [place] [address] 01/02/2024 Satya Fernandez Abscess L02.91 ; Dental caries K02.9 ; Lymphoma of lymph nodes of multiple regions, unspecified lymphoma type C85.98 ; Opioid use disorder F11.99 and Nicotine dependence, unspecified, uncomplicated F17.200 [address] [address] [address] [place] [address] 01/16/2024 Satya Fernandez Asthma exacerbation J45.901 ; Mild intermittent asthma without complication J45.20 and Nicotine dependence, unspecified, uncomplicated F17.200 [address] [address] [place] [place] [address] 01/29/2024 Jenia Heavens Opioid use disorder F11.99 and Tobacco use disorder F17.[address] [place] [address] 05/13/2024 Minervahsannon Peacock Patient underweight R63.6 ; Opioid use disorder F11.99 ; Non-tobacco user Z78.9 and Nutritional counseling Z71.3 [address] [address] [address] [place] [address] 05/27/2024 Jenia Heavens Opioid use disorder F11.99 and Nicotine dependence, unspecified, uncomplicated F17.200 [address] [address] [place] [place] [address] 07/08/2024 Jenia Heavens Opioid use disorder F11.99 and Nicotine dependence, unspecified, uncomplicated F17.200 [address] [address] [place] [place] [address] 08/19/2024 Jenia Heavens Opioid use disorder F11.99 [...] 08/19/2024 Opioid use disorder (ICD-10 - F11.99) 07/08/2024 [...] self-administe r their own oral medications per [facility] Protocol. 07/08/2024 Other Patient agrees to take medication as prescribed. Discussed medication side effects, adverse effects, risks, benefits, as well as interactions. Encouraged non-use of opioids. Has naloxone. Recommended participation in recovery groups and/or counseling services. May contact office with questions or concerns. Patient may self-administe r their own medications or may self-administe r their own oral medications per [facility] Protocol. 08/19/2024 Other Discussed medication side effects, adverse effects, risks, benefits, as well as interactions. Encouraged non-use of opioids. Has naloxone. Recommended participation in recovery groups and/or counseling services. May contact office with questions or concerns. Patient may self-administe r their own medications or may self-administe r their own oral medications per [facility] Protocol. Plan Of Treatment No Information Insurance Providers Payer Name Payer Address Payer Phone Subscriber Number Group Number Insured Name Patient Relationship to Insured Coverage Start Date Coverage End Date GARNICA [address] [phone] [id number] Soha Marrero Self - patient is the insured 2 Medical (General) History Medical History History ICD Code Bipolar 1 Disorder Alcohol Use Disorder Surgical History Surgery Date(Month/Year) Ectopic Open Chest Surgery Chemo Port 2022 Hospitalization History Reason Date(Month/Year) [place] x2
--- OUTSIDE RECORDS SUMMARY | 2024-09-15 19:34 | XMS_ITS | Encounter Summary ---
Author Organization [facility] Healthcare Address [address] [place] [address] Care Team Providers Care Power Wheelchair Mechanic Name Role Phone Richard Fish SENIOR MARKETING ANALYST Primary Care Provider Encounter Details Date Type Department Care Team (Late st Contact Info) Description 09/15/2024 9:47 AM CDT Hospital Encounter [facility] [place] [address] Arrived Social History Tobacco Use Types Packs/Day [...] Comments CT BODY OUTSIDE REFERENCE Routine 09/15/2024 9:47 AM CDT documented in this encounter Results * CT Body Outside Reference (09/15/2024 9:47 AM CDT) Impressions RAD_PACS[facility] - 09/15/2024 9:47 AM CDT These images are for Reference purposes only and have not been reviewed by [facility] Radiology. There will be no report generated by a [facility] Radiologist. Narrative RAD_PACS[facility] - 09/15/2024 9:47 AM CDT EXAMINATION: Images For Reference Purposes Only us Ramy Aguilera MD IMG CT PROCEDURES Final Resu lt [facility] documented in this encounter Visit Diagnoses Not on filedocumented in this encounter Care Teams Power Wheelchair Mechanic Relationship Specialty Start Date End Date Richard Fish NP [address] [place] [address] [place] [address] PCP - General Nurse Practitioner 02/13/24 documented as of this encounter
--- OUTSIDE RECORDS SUMMARY | 2024-09-15 19:34 | XMS_ITS | Clinical Summary ---
[facility] Address [address] [facility] [place] [address] Care Team Providers Care Passenger Attendant Name Role Phone Unavailable Primary Care Provider [...] Pain, Mild. Active naloxone (NARCAN) 4 mg/spray Lancing, Non-Aerosol EMERGENCY USE ONLY: Administer 1 spray [...] Encounters Date Type Department Care Team Description 09/07/2024 External Device Data [facility] ABSTRACTION Provider, Abstract 08/26/2024 External Device Data [facility] ABSTRACTION Provider, Abstract 08/26/2024 External Device Data [facility] [place] Provider, Abstract 08/25/2024 External Device Data [facility] [place]STRACTION Provider, Abstract 08/25/2024 External Device Data [facility] ABSTRACTION Provider, Abstract 08/24/2024 External Device Data [facility] ABSTRACTION Provider, Abstract 08/17/2024 Telephone [facility] - [place] [address] [place] [address] Dr Peck [address] [place] [address] Marv Hernandes MD Re-establishing care from [...] Comments Blood Pressure 109/66 04/17/2023 8:40 AM FREEDOM OF INFORMATION OFFICER Pulse 111 04/17/2023 8:40 AM FREEDOM OF INFORMATION OFFICER Temperature 36.6 C (97.9 F) 04/17/2023 8:40 AM FREEDOM OF INFORMATION OFFICER Respiratory Rate 10 04/17/2023 8:40 AM FREEDOM OF INFORMATION OFFICER Oxygen Saturation 92% 03/27/2023 11:06 AM FREEDOM OF INFORMATION OFFICER Inhaled Oxygen Concentration - - Weight 51.3 kg (113 lb) 04/17/2023 8:40 AM FREEDOM OF INFORMATION OFFICER Height 162.6 cm (5' 4) 03/24/2023 6:27 PM FREEDOM OF INFORMATION OFFICER Body Mass Index 19.4 03/24/2023 6:27 PM FREEDOM OF INFORMATION OFFICER Plan of Treatment Health Maintenance Due Date [...] Advance Directives For more information, please contact: [phone] * Full Code (Latest Code Status on File) Date Activated Date Inactivated Comments 03/25/2023 1:09 AM 03/26/2023 3:29 PM
--- OUTSIDE RECORDS SUMMARY | 2024-09-15 19:34 | XMS_ITS | Encounter Summary ---
Author Organization [facility] Address [address] [facility] [place] [address] Care Team Providers Care Sharepoint Application Architect Name Role Phone Unavailable Primary Care Provider Unavailabl e Encounter Details Date Type Department Care Team (Late st Contact Info) Description 12/19/2022 Lab Requisition [facility] - Pathology Lab [address] [place] [address] Ishan Escobedo MD [address] [address] Illness, unspecified Social History Tobacco [...] CDT) Case Report Surgical Pathology Report Case: [id number] Authorizing Provider: Ishan Escobedo MD Collected: 12/18/2022 09:00 AM Ordering Location: [facility] Care Pathology Lab Received: 12/19/2022 01:25 [...] CD10 co-expression. Axillary lymph node, flow cytometry ([id number]): - [place] light chain restricted CD10+ B-cell population detected (~99% of overall events) Also received from [facility] [place] is a peripheral smear showing circulating follicular lymphoma cells with occasional nuclear clefts. The peripheral blood is involved by follicular lymphoma. 12/19/2022 3:33 PM CDT [facility] PATHOLOGY LAB Clinical History Suspect lymphoma. 12/19/2022 3:33 PM [facility] PATHOLOGY LAB Materials Received Received are 4 slide(s) and 1 block labeled [id number] along with a copy of the outside pathology report. The materials originate from [facility] [place], [address] [place] [address]. All original materials are returned to the referring institution, along with a copy of our final report. 12/19/2022 3:33 PM T [facility] PATHOLOGY LAB Pathologist Location at [facility] 12/19/2022 3:33 PM T [facility] PATHOLOGY LAB Disclaimer The performance characteristics of all immunohistochemical and indirect immunofluorescence stains (if any) cited in this report were determined by the Histopathology Laboratory of [facility]. Some of these tests were developed [...] (teaching) pathologist. 12/19/2022 3:33 PM T [facility] PATHOLOGY [facility] Embedded Images 12/19/2022 3:33 PM T [facility] PATHOLOGY LAB Pathology/Cytolo gy BIOPSY OF LYMPH NODE / Unknown 12/18/2022 9:00 AM CDT 12/19/2022 1:25 PM CDT us Ishan Escobedo MD LAB - PATHOLOGY/CYTOLOGY ORDERAB LES Final Result [facility] PATHOLOGY LAB [address] [facility]. [address] [phone] documented in this encounter Visit Diagnoses Diagnosis Illness, unspecified documented in this encounter
--- OUTSIDE RECORDS SUMMARY | 2024-09-15 19:34 | XMS_ITS | Encounter Summary ---
Author Organization [facility] Healthcare Address [address] [place] [address] Care Team Providers Care Direct Entry Midwife Name Role Phone Richard Fish CLINICAL OUTCOMES MANAGER Primary Care Provider Encounter Details Date Type Department Care Team (Late st Contact Info) Description 09/15/2024 9:45 AM CDT Hospital Encounter [facility] [place] [address] Arrived Social History Tobacco Use Types Packs/Day [...] Comments CT BODY OUTSIDE REFERENCE Routine 09/15/2024 9:45 AM CDT documented in this encounter Results * CT Body Outside Reference (09/15/2024 9:45 AM CDT) Impressions RAD_PACS[facility] - 09/15/2024 9:45 AM CDT These images are for Reference purposes only and have not been reviewed by [facility] Radiology. There will be no report generated by a [facility] Radiologist. Narrative [facility]_PACS[facility] - 09/15/2024 9:45 AM CDT EXAMINATION: Images For Reference Purposes Only us Ramy Aguilera MD IMG CT PROCEDURES Final Resu lt [facility] documented in this encounter Visit Diagnoses Not on filedocumented in this encounter Care Teams Direct Entry Midwife Relationship Specialty Start Date End Date Richard Fish NP [address] [place] [address] [place] [address] PCP - General Nurse Practitioner 02/13/24 documented as of this encounter
--- OUTSIDE RECORDS SUMMARY | 2024-09-15 19:34 | XMS_ITS | Encounter Summary ---
Author Organization [facility] Healthcare Address [address] [place] [address] Care Team Providers Care Donations Attendant Name Role Phone Richard Fish SENIOR PROCESS ANALYST Primary Care Provider Encounter Details Date Type Department Care Team (Late st Contact Info) Description 09/15/2024 9:46 AM CDT Hospital Encounter [facility]iology [facility] [place] [address] Arrived Social History Tobacco Use Types Packs/Day [...] Procedure Name Priority Date/Time Associated Diagnosis Comments PET OUTSIDE REFERENCE Routine 09/15/2024 9:46 AM CDT documented in this encounter Results * PET Outside Reference (09/15/2024 9:46 AM CDT) Impressions RAD_PACS_[facility] - 09/15/2024 9:46 AM CDT These images are for Reference purposes only and have not been reviewed by [facility] Radiology. There will be no report generated by a [facility] Radiologist. Narrative [facility]_P[facility] - 09/15/2024 9:46 AM CDT EXAMINATION: Images For Reference Purposes Only us Ramy Aguilera MD IMG PET PROCEDURES Final Res ult [facility] documented in this encounter Visit Diagnoses Not on filedocumented in this encounter Care Teams Donations Attendant Relationship Specialty Start Date End Date Richard Fish NP [address] [place] [address] [place] [address] PCP - General Nurse Practitioner 02/13/24 documented as of this encounter
--- OUTSIDE RECORDS SUMMARY | 2024-09-15 19:34 | XMS_ITS | CONTINUITY OF CARE DOCUMENT ---
Author Name christopher white Address Unknown Organization [facility] Address [address] [place] [address] [address] [place] [address] Phone [phone] Care Team Providers Care Paper Core 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 Name Role Phone Randy Armstrong MD Unavailable Randy Armstrong MD Unavailable INSURANCE PROVIDERS Payer name Policy type / Coverage type Rudolph red constitution party ID [place]ARN[place] MEDICAID Medicaid [id number]
--- OUTSIDE RECORDS SUMMARY | 2024-09-15 19:34 | XMS_ITS ---
Author Organization [facility] Address [address] [place] [address] Phone Care Team Providers Care Gravity Prospecting Operator Helper Name Role Phone Gabriel Salmeron MD Unavailable [phone] Brooks Sosa MD Unavailable [phone] Provider, None Primary Care Provider UnavailKervin Rubi [...] current use Anxiety 05/07/2023 Under care of nursing home service 05/07/2023 Overview (05/07/2023): Two previous stays at nursing home Child living with her parents Current [...] 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 Hx of nursing home time
--- OUTSIDE RECORDS SUMMARY | 2024-09-15 19:34 | XMS_ITS | Encounter Summary ---
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 myositis documented in this encounter Administered Medications Inactive Administered Medications - up to 3 most recent administrations Medication Order MAR Action Action Date Dose Rate Site morphine injection 2 mg 2 mg, intravenous, Administer over 4 Minutes, Once, On Fri09/13/24 at 2004, For 1 dose Given 09/13/2024 8:09 PM CDT 2 mg morphine injection 4 mg 4 mg, intravenous, Administer over 4 Minutes, Once, On Fri09/13/24 at 1930, For 1 dose Given 09/13/2024 7:33 PM CDT 4 mg ondansetron (ZOFRAN) injection 4 mg 4 mg, intravenous, Administer over 2 Minutes, Once, On Fri09/13/24 at 1930, For 1 dose Given 09/13/2024 7:33 PM CDT 4 mg potassium chloride ER (KLOR-CON) extended release tablet 60 mEq 60 mEq, oral, Once, On Fri09/13/24 at 193, For 1 dose, Do not crush, chew, cut, dissolve, open or otherwise manipulate tablet/capsule. Given 09/13/2024 8:08 PM CDT 60 mEq prochlorperazine (COMPAZINE) injection 5 mg 5 mg, intravenous, Administer over 2 Minutes, Once, On Fri09/13/24 at 2004, For 1 dose Given 09/13/2024 8:09 PM CDT 5 mg sodium chloride 0.9% bolus 1,000 mL 1,000 mL, intravenous, Once, On Fri09/13/24 at 1913, For 1 dose New Bag 09/13/2024 7:17 PM CDT 1,000 mL sodium chloride 0.9% bolus 1,000 mL 1,000 mL, intravenous, Once, On Fri09/13/24 at 2002, For 1 dose New Bag 09/13/2024 8:05 PM CDT 1,000 mL documented in this encounter Active and Recently Administered Medications Times are shown in CDT. Scheduled Medication Order 09/11/2024 09/12/2024 09/13/2024 morphine injection 2 mg (COMPLETED) 2 mg, intravenous, Administer over 4 Minutes, Once, On Fri09/13/24 at 2003, For 1 dose 2008 (Given - Provid er: Casandra Rajput RN) morphine injection 4 mg (COMPLETED) 4 mg, intravenous, Administer over 4 Minutes, Once, On Fri09/13/24 at 0, For 1 dose 1932 (Given - Provid er: Casandra Rajput RN) ondansetron (ZOFRAN) injection 4 mg (COMPLETED) 4 mg, intravenous, Administer over 2 Minutes, Once, On Fri09/13/24 at 1930, For 1 dose 1932 (Given - Provid er: Casandra Rajput RN) potassium chloride ER (KLOR-CON) extended release tablet 60 mEq (COMPLETED) 60 mEq, oral, Once, On Fri09/13/24 at 0, For 1 dose, Do not crush, chew, cut, dissolve, open or otherwise manipulate tablet/capsule. 2007 (Given - Provid er: Casandra Rajput RN) prochlorperazine (COMPAZINE) injection 5 mg (COMPLETED) 5 mg, intravenous, Administer over 2 Minutes, Once, On Fri09/13/24 at 2003, For 1 dose 2008 (Given - Provid er: Casandra Rajput RN) sodium chloride 0.9% bolus 1,000 mL (COMPLETED) 1,000 mL, intravenous, Once, On Fri09/13/24 at 1913, For 1 dose 1916 (New Bag - Prov ider: Casandra Rajput RN)2005 (Stopped - Provider: Casandra Rajput RN) sodium chloride 0.9% bolus 1,000 mL (COMPLETED) 1,000 mL, intravenous, Once, On Fri09/13/24 at 2002, For 1 dose 2004 (New Bag - Prov ider: Jordon Rodriguez RN)2026 (Stopped - Provider: Casandra Rajput RN) documented in this encounter Orders IV Count Last Ordered Date First Orde red Date SALINE LOCK IV 1 09/13/2024 documented in this encounter Care Teams Meeting/Event Planner Relationship Specialty Start Date End Date Richard Fish NP [address] [place] [address] PCP - General Nurse Practitioner 02/13/24 documented as of this encounter
--- OUTSIDE RECORDS SUMMARY | 2024-09-15 19:34 | XMS_ITS | Encounter Summary ---
Author Organization [facility] Address [address] [place] [address] Care Team Providers Care Graphic Artist Name Role Phone Unavailable Primary Care Provider Unavailabl e Encounter Details Date Type Department Care Team (Late st Contact Info) Description 12/18/2022 Lab Requisition [facility] - Pathology Lab [address] [place] [address] Ishan Escobedo MD [address] [facility] [address] [place] [phone] Generalized enlarged lymph nodes Social History [...] AM CDT) Case Report Flow Cytometry Case: [id number] Authorizing Provider: Ishan Escobedo MD Collected: 12/18/2022 09:00 AM Ordering Location: [facility] Care Pathology Lab Received: 12/18/2022 03:11 PM Pathologist: Giovanni Chow MD Specimen: Axillary Lymph Node, RIGHT 12/18/2022 5:15 PM CDT [facility] Final Diagnosis Axillary lymph node, flow cytometry: - [place] light chain restricted CD10+ B-cell population detected (~99% of overall events) 12/18/2022 5:15 PM CDT [facility] at 1714 CDT Flow Cytometry Interpretation Viability: 87%. B-cells: monoclonal, kappa-restricted, expressing CD19, CD20, and CD10. T-cells: not increased, no immunophenotypic aberrancy. A cytospin prepared from the flow cytometry specimen has been reviewed for quality assurance advisor purposes. 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 Histologic slides are pending for final subclassification. 12/18/2022 5:15 PM [facility] Flow Cytometry Results Differential Result Comment Flow Cell Count /uL 9,000 Total Viability % 87.0 Lymphocytes % 99 Dim CD45 Region % 0 Monocytes % 0 Granulocytes % 1 12/18/2022 5:15 PM [facility] Reason for test Generalized enlarged lymph nodes 785.6 12/18/2022 5:15 PM [facility] Client Specimen ID # [id number] 12/18/2022 5:15 PM [facility] Number of markers 16 were performed. A-2 Flow CD3 A-4 Flow CD10 A-6 Flow CD20 A-7 Flow CD23 A-12 Flow CD2 A-13 Flow CD4 A-16 Flow CD1a A-3 Flow CD5 A-5 Flow CD19 A-8 Flow CD34 A-9 Flow CD45 A-14 Flow CD7 A-15 Flow CD8 A-17 Flow CD30 A-10 [place]+CD19+ A-11 Lambda+CD19+ 12/18/2022 5:15 PM [facility] Pathologist Location at [facility] 12/18/2022 5:15 PM [facility] Disclaimer Test performed at [facility], [address] [place] [address], [address]. *The established laboratory minimum viability is 70%. [...] PATHOLOGY LAB Embedded Images 5:15 PM CDT [facility] Pathology/Cytolo gy AXILLARY LYMPH NODE STRUCTURE / Unknown 12/18/2022 9:00 AM CDT 12/18/2022 3:11 PM CDT us Ishan Escobedo MD LAB - PATHOLOGY/CYTOLOGY ORDERAB LES Final Result [facility] [address] [phone] documented in this encounter Visit Diagnoses Diagnosis Generalized enlarged lymph nodes Enlargement of lymph nodes documented in this encounter
--- OUTSIDE RECORDS SUMMARY | 2024-09-15 19:34 | XMS_ITS | Encounter Summary ---
Author Organization [facility] Address [address] [place] [address] Care Team Providers Care Textile Engineer Name Role Phone Richard Fish BUSINESS CONTINUITY PLANNING DIRECTOR Primary Care Provider Encounter Details Date Type Department Care Team (Late st Contact Info) Description 09/15/2024 9:47 AM CDT Hospital Encounter [facility] Count includes the [facility] [place] [address] Arrived Social History Tobacco Use Types Packs/Day [...] only and have not been reviewed by [facility] Radiology. There will be no report generated by a [facility] Radiologist. Narrative [facility] - 09/15/2024 9:47 AM CDT EXAMINATION: Images For Reference Purposes Only us Ramy Aguilera MD IMG CT PROCEDURES Final Resu lt [facility] documented in this encounter Visit Diagnoses Not on filedocumented in this encounter Care Teams Textile Engineer Relationship Specialty Start Date End Date Richard Fish NP [address] [place] [address] [place] [address] PCP - General Nurse Practitioner 02/13/24 documented as of this encounter
--- OUTSIDE RECORDS SUMMARY | 2024-09-15 19:34 | XMS_ITS | Clinical Summary ---
Author Organization [facility] Address [address] [place] [address] Care Team Providers Care Network Specialist Name Role Phone Unavailable Primary Care Provider Unavailabl e Source Comments [facility] [employer],non-owned Affiliates and Associated Physician Practices is amultiple site organization consisting of ambulatory clinics and hospital sitesin [place], [place], [place] and [place]. This disclosure is being madepursuant to the Care Everywhere program and may not contain all information available regarding this patient. Last updated 17.[facility] Social History Tobacco Use Types Packs/Day Years [...] patient's age to complete this topic [place] [address] [place] [address]
--- OUTSIDE RECORDS SUMMARY | 2024-09-15 19:34 | XMS_ITS | Data Portability ---
Author Organization [facility] [place] Address [address] [place] [address] Assessment Encounter Date Assessment Date Assessment LastModified by Organization Details LastModified Time 07/29/2024 07/29/2024 Annual gynecological exam performed. Patient will come back in a year unless there are new symptoms. [email or web address] Not available 07/29/2024 11:38:03 Plan of Treatment Reminders Order Date Submit Date Provider Last Modified By Organization Details Last Modified Time Details Appointments None recorded. Lab hbcab (hepatitis B core Ab) igm, serum [address] [facility] (Lab), [address] [place], [address], 5 11:25:14 HBsAg (hepatitis B surface Ag), serum [address] [facility] (Lab), [address] [place], [address], 5 11:25:14 hepatitis C virus Ab, serum [address] [facility] (Lab), [address] [place], [address], 5 11:25:13 HIV 1+2 AB + HIV 1 p24 Ag, qualitative immunoassay , serum [address] [facility] (Lab), [address] [place], [address], 5 11:25:13 RPR (rapid plasma reagin), serum [address] [facility] (Lab), [address] [facility], [place], [address], 5 11:25:14 pap, IG + HR HPV - HPV regardless but if HPV is positive need subtyping 16,18/45add STI to pap GC/CT/Trich [address] [facility] (Lab), [address] [facility], [place], [address], 5 13:59:16 culture, urine [address] [facility] (Lab), [address] [facility], [place], [address], 5 13:59:18 Referral None recorded. Procedures None recorded. Surgeries None recorded. Imaging MAMMO, diagnostic, digital, bilateral 2024 [facility], [address], [place], [address], 5 04:02:31 US, breast, bilateral, complete 2024 [facility], [address], [place], [address], 5 04:02:31 Medication Orders None recorded. Patient [...] of expos ure to HCV. Not Available [facility] (Lab) [address], [place], [address], 07/30/2024 11:25:13 07/30/19 25 07/29/2024 HIV 1/2 ANTIG EN/AN TIBOD Y, REFLE X CONFI RMATI ON HIV antigen/anti body Nonrea ctive nonrea ctive HIV-1 antig en and HIV-1 /HIV- 2 antib odies were not detec gabriella. No labor atory evide nce of HIV infec tion. Not Available [facility] (Lab) [address] [facility], [place], [address], 07/30/2024 11:25:13 07/30/19 25 07/29/2024 HEPAT ITIS B SURFA CE ANTIG EN hepatitis B surface antigen Non-re active non-re active This assay was perfo rmed using [employer] ratio n reage nts and test kits. Value s obtai maxim with other assay metho ds or kits canno t be used inter caro eably . Not Available [facility] (Lab) [address] [facility], [place], [address], 07/30/2024 11:25:14 07/30/19 25 07/29/2024 RPR SCREE N, REFLE X TITER /CONF IRMAT ION RPR qualitative Nonrea ctive nonrea ctive Not Available [facility] (Lab) [address] [facility], [place], [address], 07/30/2024 11:25:14 07/30/19 25 07/29/2024 HEPAT ITIS B CORE, IGM hepatitis B core IgM antibody Non-re active non-re active IgM anti- HBc not detec gabriella. Does not exclu de the possi bilit y of expos ure to or infec tion with HBV. Test Perfo rmed by: [facility] [address] [place] [address] Not Available [facility] (Lab) [address] [place], [address], 07/30/2024 11:25:14 07/30/19 25 07/29/2024 IMAGE GUIDE [...] epith elial Naty muñiz or Rinku jain ([facility]) . Elect apple velazquez d by [...] as clini nati zamarripa nted. Not Available [facility] (Lab) [address] , [place], [address], 08/03/2024 13:59:16 07/30/1907/29/2024 TRICH OMONA S VAGIN CHALO (RRNA ) trichomonas vaginalis ribosomal RNA (rrna) Negati ve negati ve Not Available [facility] (Lab) [address] [place], [address], 08/03/2024 13:59:17 07/30/1907/29/2024 CT/GC (FAREED) , THINP REP VIAL chlamydia trachomatis, PCR Negati ve negati ve Not Available [facility] (Lab) [address] [place], [address], 08/03/2024 13:59:17 07/30/19 25 07/29/2024 CT/GC (FAREED) , THINP REP VIAL neisseria gonorrhoeae, PCR Negati ve negati ve Not Available [facility] (Lab) [address] [facility], [place], [address], 08/03/2024 13:59:17 07/30/19 25 07/29/2024 CULTU RE: URINE result report SEE RESULT S BELOW abnormal Test: Cultu re: Urine Speci men Sourc e: Urine - Clean Catch Speci men Type: Urine Speci men Date: 2024 1446 Resul t Date: 2024 0713 Resul t Statu s: Final resul t Ramakrishnaor mal: Yes Jacoby garcia Lab: [facility] [address] [facility] [address] Tel: CULTU RE ----- ----- ----- --- [...] <=0.5 ug/mL Susce ptibl e Not Available [facility] (Lab) [address], [place], [address], 08/03/2024 13:59:18 Result Notes None recorded. Procedures Surgical History Date Name Laterality Status Provider Name and Address Organization Details Recorded Time 11/06/19 22 chemotherapy completed [facility] 07/29/2024 12:08:18 05/08/19 15 medical termination of completed [facility] 07/29/2024 12:07:34 05/08/19 14 incision and drainage of breast abscess completed [facility] 07/29/2024 12:07:14 Imaging Results None recorded. Procedure Notes None recorded. Medical Equipment None Reported. Allergies Allergen ID Allergen Name Allergen Category Reaction Reaction Severity Criticality Documentation Date Start Date Code Code System Note Provider Name and Address Organization Details Recorded Time 02798 pecan nut food Not available Not available Not available 07/29/2024 05591 UNK [facility] 11:57:32 00849 Benadryl medicatio n Not available Not available Not available 07/29/202473729 7 RxNorm [facility] 11:57:43 [address]03 azithromy louis medicatio n Not available Not available Not available 07/29/2024 55054 RxNorm [facility] 11:58:11 Medications Name Sig Start Date [...] Updated DateTime 07/29/2024 157.48 cm 21.8 kg/m2 89292.49 g 119 mm[Hg] 81 mm[Hg] Lety Khan [facility] 11:56:58 Social History Question Answer Notes LastModified by Organizat ion Details LastModified Time Do You Have An Advance Directive? No [email or web address] Information n ot available 07/29/2024 Are You Blind Or Do You Have Difficulty Seeing? No Information n ot available 07/29/2024 What Is Your Level Of Caffeine Consumption? Occasional [email or web address] Information not available 07/29/2024 How Much Tobacco Do You Chew? None [email or web address] Information not available 07/29/2024 In The 14 Days Before Symptom Onset, Have You Had Close Contact With A Laboratory-confirm ed COVID-19 While That Case Was Ill? No [email or web address] Information n ot available 07/29/2024 In The 14 Days Before Symptom Onset, Have You Had Close Contact With A Person Who Is Under Investigation For COVID-19 While That Person Was Ill? No [email or web address] Information not available 07/29/2024 Have You Been To An Area Known To Be High Risk For COVID-19? No [email or web address] Information not available 07/29/2024 Are You Deaf Or Do You Have Serious Difficulty Hearing? No Information not available 07/29/2024 What Type Of Diet Are You Following? REGULAR [email or web address] Information n ot available 07/29/2024 What Is The Highest Grade Or Level Of School You Have Completed Or The Highest Degree You Have Received? UH33045-2 [email or web address] Information not available 07/29/2024 Are There Any Guns Present In Your Home? No Information not available 07/29/2024 Do You Use Protection During Sex? No [email or web address] Information not available 07/29/2024 Do You Use Your Seat Belt Or Car Seat Routinely? No [email or web address] Information not available 07/29/2024 Do You Have Smoke And Carbon Monoxide Detectors In Your Home? Yes [email or web address] Information not available 07/29/2024 At What Age Did You Start Smoking Tobacco? 21 [email or web address] Information not available 07/29/2024 How Much Tobacco Do You Smoke? 1 PPD Information not available 07/29/2024 Do You Use Sunscreen Routinely? No [email or web address] Information not available 07/29/2024 Have You Used [...] anxious, or unable to sleep at night)? [id number] Information not available 07/29/2024 Family History Nothing [...] SNOMED-CT Code Diagnosis ICD10 Code Diagnosis Note [id number] ANIA Reeves [place] [address] [address] 07/29/2024 11:33:28 07/30/2024 10:26:56 Gynecologic examination 37702387 Z01.419 WWEBC - declinedPa p - done [...] advised. Questions answered. Venereal d isease screening [id number] Z11.3 Sexually t ransmitted infectious disease 0702252 A64 Breast lump 36298310 N63 .0 order given for bilateral diagnostic mammogram and u/s Health Concerns Section Related Observation LastModified by Organization Detai ls LastModified Time None Recorded Concern Status LastModified by Organization Details LastModified Time None Recorded Advance Directives Directive N: Payers Encounter Date Sequence Insurance Name Policy Number Policy Woods Covered Member ID Woods Member ID Guarantor Name 07/29/2024 1 [facility] (MEDICAID HMO) [id number] Soha Marrero [id number] Soha Marrero Notes Date Note Type Note [...] since 2023 ANIA Reeves [address], [place], [address], [facility] 07/30/2024 09:32:49 OBGyn Episode Ob Episode Information Episode Created Date Number of Fetuses Patient Bloodtype Patient rh Status Prepregnancy Weight lbs Domestic Partner Domestic Partner Phone Father Name Tso Status 07/30/19 1 CLOSED Fetus Data First Name Last Name Admitted to NICU Weight (g) Sex Living Outcome Pediatric Complications Fetus ID Race Codes Race Delivery Type , Induced 12792 Fly Calculation Initial Fly Date Initial Exam [...] Domestic Partner Domestic Partner Phone Father Name Tso Status 07/30/19 1 CLOSED Fetus Data First Name Last Name Admitted to NICU Weight (g) Sex Living Outcome Pediatric Complications Fetus ID Race Codes Race Delivery Type , Spontane ous 79095 Fly Calculation Initial Fly Date Initial Exam [...] Domestic Partner Domestic Partner Phone Father Name Tso Status 07/30/19 1 CLOSED Fetus Data First Name Last Name Admitted to NICU Weight (g) Sex Living Outcome Pediatric Complications Fetus ID Race Codes Race Delivery Type F Prematur e [id number] Vaginal Delivery Fly Calculation Initial Fly Date [...]
--- OUTSIDE RECORDS SUMMARY | 2024-09-15 19:34 | XMS_ITS | Encounter Summary ---
Author Organization [facility] Healthcare Address [address] [place] [address] Care Team Providers Care Finishing Lab Technician Name Role Phone Richard Fish INSTRUCTIONAL MATERIAL DIRECTOR Primary Care Provider Encounter Details Date Type Department Care Team (Late st Contact Info) Description 09/15/2024 9:45 AM CDT Hospital Encounter [facility]) [facility] [place] [address] Arrived Social History Tobacco Use Types Packs/Day [...] Diagnosis Comments PET OUTSIDE REFERENCE Routine 09/15/2024 9:45 AM CDT documented in this encounter Results * PET Outside Reference (09/15/2024 9:45 AM CDT) Impressions [facility] - 09/15/2024 9:45 AM CDT These images are for Reference purposes only and have not been reviewed by [facility] Radiology. There will be no report generated by a [facility] Radiologist. Narrative [facility] - 09/15/2024 9:45 AM CDT EXAMINATION: Images For Reference Purposes Only us Ramy Aguilera MD IMG PET PROCEDURES Final Res ult [facility] documented in this encounter Visit Diagnoses Not on filedocumented in this encounter Care Teams Finishing Lab Technician Relationship Specialty Start Date End Date Richard Fish NP [address] [place] [address] [place] [address] PCP - General Nurse Practitioner 02/13/24 documented as of this encounter
--- OUTSIDE RECORDS SUMMARY | 2024-09-15 19:34 | XMS_ITS | Clinical Summary ---
Author Organization [facility] Address [address] [place] [address] Phone Care Team Providers Care Av Specialist Name Role Phone Gabriel Salmeron MD [...] current use Anxiety 05/07/2023 Under care of assisted service 05/07/2023 Overview (05/07/2023): Two previous stays at assisted Child living with her parents Resolved Problems Problem Noted Date Diagnosed Date Resolved Date LRTI (lower respiratory tract infection) 09/09/2023 11/26/2023 Lymphoma 05/07/2023 10/29/2023 Overview (05/21/2023): Resistant to care No show ONC Refusing hospice 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/21/2023): Current cannabis; 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 Hx of assisted time Encounters Date Type Department Care Team Description 08/06/2024 Telephone [facility] On[facility] [address] [place] [address] Gabriel Salmeron MD 06/17/2024 11:40 AM CDT - 06/17/2024 12:40 PM CDT [facility] [address] [address] [place] [address] Kervin Jiang MD REMOVAL OF PORT, LEFT SIDE 06/17/2024 11:39 AM CDT Anesthesia [facility] [address] [place] [address] Roland Martinez MD [place], Kevin L, BLACK POWDER GLAZING OPERATOR, BUSINESS INTEGRATION ANALYST 06/17/2024 8:59 AM CDT - 06/17/2024 1:15 PM CDT Hospital Encounter [facility] Preop/Pacu II [address] [place] [address] Kervin Jiang MD Discharge Disposition: Discharged to home or Selfcare 06/17/2024 Telephone [facility] [address] [address] Kervin Jiang MD Medication Management 06/15/2024 Travel from Last 3 Months Immunizations Immunization [...] = 0.6 oz pur e alcohol) occasional [facility] Utilities Answer Date Recorded In the past 12 months has e electric, gas, oil, or water company threatened to shut off services in your home? Yes 05/07/2023 Social Connection and Isolation Panel Answer Date Recorded In a typical week, how many times do you talk on the phone with family, friends, or neighbors? Once a week 05/07/2023 How often do you get together with friends or re latives? Once a week 05/07/2023 How often do you attend adventism or tenriism serv ices? Never 05/07/2023 Do you belong to any clubs o r organizations such as adventism groups, unions, fraternal or athletic groups, or [...] Total Score - Questions 1-9 9 06/06 [facility] - Occupational Stress [...] place to sleep or slept in a correction (including now)? No 05/07/2023 Sexually Active Control Partners Comments Yes Male Comments Unknown Sex and Gender Information Value Date Recorded Sex Assigned at Female 05/21/2023 11:44 AM STENCILING MACHINE TENDER Legal Sex Female 5:17 PM CDT Gender Identity Female 05/21/2023 11:44 AM STENCILING MACHINE TENDER Sexual Orientation Not on file Last Filed [...] change(07/29 4:12 PM CDT) Yes Janette Tom, FABRICATION DEPARTMENT SUPERVISOR Note: Goal/Objective: Improve insight and understanding of behaviors and feelings. Anticipated Time Frame for Goal Completion: 6 months Goal Reviewed with: patient Readiness to change: Ready to change Department associated with goal: [facility] Steps to [...] PATHOLOGY SURGICAL Routine 06/17/2024 11:55 AM CDT [place] [facility] VAD W/SUBQ PORT/ROOF FIXER CTR/PRPH INSJ 06/17/2024 11:17 AM CDT ENCOUNTER FOR REMOVAL OF TUNNELED CENTRAL VENOUS CATHETER Special Needs Allergy: Allopurinol, Azithromycin, Codeine, Pecan Extract, Benadryl Hx: Drug & Alcohol abuse 5 3.5 119# POCT URINE HCG () Routine 06/17/2024 9:38 AM CDT from Last 3 Months Results * Pathology Surgical (06/17/2024 11:55 AM CDT) Case Report Surgical Pathology Report Case: [id number] Authorizing Provider: Kervin Jiang, Collected: 06/17/2024 11:55 AM Ordering Location: [facility] Received: 06/18/2024 09:02 AM [facility] Main OR Pathologist: Ishan Escobedo MD Specimen: Foreign Body, PORT FROM LEFT CHEST 06/18/2024 2:46 PM CDT [facility] FINAL DIAGNOSIS Foreign body, port from left chest, removal: - As described grossly. 06/18/2024 2:46 PM CDT [facility] at 1446 CDT Pre-Operative Diagnosis ENCOUNTER FOR REMOVAL OF TUNNELED CENTRAL VENOUS CATHETER 06/18/2024 2:[address] [facility] Gross Description A. PORT [...] dictation only. KS/sb 06/18/2024 2:[address] [facility] Other FOREIGN BODY SUBMITTED SPECIMEN / Unknown 06/17/2024 11:55 AM CDT 06/18/2024 9:02 AM CDT Kervin Jiang MD PATHOLOGY/CYTOLOGY OR DERABLES Final Result [facility] [facility] [place] [address] * POCT Urine HCG () (06/17/2024 9:38 AM CDT) POC URINE Negative POC URINE CONTROL [place] Urine 06/17/2024 9:38 AM CDT Kervin Jiang MD POINT OF CARE TESTING (MANUAL) Final Result from Last 3 Months Insurance [address]ID [facility] Care Teams Av Specialist Relationship Specialty Start Date End Date Provider, None [place] PCP - General 06/17/24 Gabriel Salmeron MD [address] [place] [address] Consulting Physician Medical Oncology 05/23/23 Brooks Sosa MD [address] [place] [address] Consulting Physician Neurology 01/22/24 Kervin Jiang MD [address] [id number] Consulting Physician General Surgery 06/11/24
[2024-09-15 19:48] VITALS: BP 115/86; PULSE 109; RESP 18; TEMP 36.8; O2SAT 97
--- NOTE | 2024-09-15 20:44 | ED_ITS ---
HPI - Female Genitourinary General Chief complaint: Vaginal Bleeding Stated complaint: vaginal bleeding & slime Time Seen by Provider: 09/15/24 20:27 History of Present Illness HPI Narrative: Patient is a 34-year-old female who presents to the ER with back pain. She reports she has an appointment with a primary care provider tomorrow morning at 7am. Patient reports she is experiencing back pain that radiates down to her butt. She also brought a sample of her vaginal discharge because she believes it looks abnormal. Pt is concerned she may be . She endorses a history of lymphoma, drug abuse, and pancreatitis. Patient has a history of drug-seeking behavior, so it was confirmed with pt during time of interview that pt would not receive narcotics here in the ER or upon discharge. Related Data Home Medications ?Medication ?Instructions ?Recorded ?Confirmed ?Last Taken ?Type hydroxyzine HCl 25 mg tablet 25 mg PO TID 03/21/23 03/27/23 Unknown History methylprednisolone 4 mg tablets in mg 03/21/23 03/21/23 Unknown History a dose pack hydroxyzine HCl 25 mg tablet mg 09/30/23 Unknown History ibuprofen 600 mg tablet mg 09/30/23 Unknown History megestrol 400 mg/10 mL (40 mg/mL) mg 09/30/23 Unknown History oral suspension morphine 30 mg immediate release mg 09/30/23 Unknown History tablet ondansetron 4 mg disintegrating mg 09/30/23 Unknown History tablet pregabalin 50 mg capsule mg 09/30/23 Unknown History promethazine 25 mg rectal mg RECTAL 09/30/23 Unknown History suppository (Promethegan) valacyclovir 500 mg tablet mg 09/30/23 Unknown History Allergies Allergy/AdvReac Type Severity Reaction Status Date / Time azithromycin AdvReac Nausea Verified 09/15/24 19:33 codeine AdvReac Vomiting Verified 09/15/24 19:33 diphenhydramine (From AdvReac Jittery Verified 09/15/24 19:33 Benadryl) pecan nut AdvReac Nausea and Verified 09/15/24 19:33 Vomiting pregabalin AdvReac Unknown Verified 09/15/24 19:33 Review of Systems Review of Systems: All systems reviewed & are unremarkable except as noted in HPI and below PMFSH Past Medical History Medical History Drug-induced psychotic disorder Atypical bipolar disorder Anxiety MRSA infection buttock and leg during last lengthy incarceration (2020) Ectopic Methamphetamine abuse, episodic History of heroin use Surgical History Surgical History History of breast surgery 2017 or 2018, 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 L Side. History of salpingo-oophorectomy Social History Social History Social History: Currently living with boyfriend. Full Code. Surrogate decision maker - Isaiah Beverly (step-dad), if unavailable then Marlene Tona (mom). Smoking packs per day: 1 Smoking cigarettes per day: 20.0 Years smoked: 11 Smoking pack-years: 11.00 Smoking status: Current every day smoker Tobacco type: cigarettes Alcohol intake: current Drinks per week: 1 Alcohol use details: social Substance use: former Substance use type: marijuana Other substance usage details: QUIT USING EARLY DEC 2022 D/T DIAGNOSIS & SURGERY Last use: last use of heroin-September 2014 Lack of Transportation: No Lack of Food: Never True Current Housing: I Have Housing Concerned About Future Housing: No Difficulty Paying Gas/Electric Bills: No Difficulty Paying for Meds: No Currently Unemployed: No Education: High School Diploma/GED Difficulty w/ Childcare or Family Care: No Living arrangements: with friend(s) Additional living arrangements comments: boyfriend Spiritual care concerns: No Exam Narrative: GENERAL: Well appearing, well-nourished, non-toxic, in no acute distress. HEAD: Normocephalic, atraumatic. NECK: Supple. No adenopathy, no masses. MUSCULOSKELETAL: Moves all extremities. Strength/ROM intact without gross deformities. SKIN: Warm, dry, normal color. No rashes. NEURO: A&O X3. Speech clear. Cranial nerves II-XII intact. No ataxic movements. PSYCHIATRIC: Appropriate mood and affect. Normal interaction. Course Vital Signs Vital signs: Vital Signs Temperature 36.8 C 09/15/24 19:48 Pulse Rate 109 H 09/15/24 19:48 Respiratory Rate 18 09/15/24 19:48 Blood Pressure 115/86 09/15/24 19:48 Pulse Oximetry 97 09/15/24 19:48 Oxygen Delivery Room Air 09/15/24 19:48 Temperature 36.8 C 09/15/24 19:48 Pulse Rate 109 H 09/15/24 19:48 Respiratory Rate 18 09/15/24 19:48 Blood Pressure 115/86 09/15/24 19:48 Pulse Oximetry 97 09/15/24 19:48 Oxygen Delivery Room Air 09/15/24 19:48 MDM - Female Genitourinary MDM Narrative Medical decision making narrative: Patient is a 34-year-old female who presents to the ER with back pain. She reports she has an appointment with a primary care provider tomorrow morning at 7am. Patient reports she is experiencing back pain that radiates down to her butt. She also brought a sample of her vaginal discharge because she believes it looks abnormal. Pt is concerned she may be . She endorses a history of lymphoma, drug abuse, and pancreatitis. Patient has a history of drug-seeking behavior, so it was confirmed with pt during time of interview that pt would not receive narcotics here in the ER or upon discharge. After was explained to patient that she will not be receiving any narcotics here nor a prescription for them patient has chosen to refuse further care. Risks of an incomplete evaluation and treatment were discussed with the patient. Patient seems to understand these risks, but is still requesting to leave the department before results are back. Patient recommended to follow up with PCP tomorrow morning, as previously planned. Specifically, patient was told they can return to the ED at any time to resume care. Differential Diagnosis Differential diagnosis: Likely urinary tract infection, dysmenorrhea and other () Lab Data Attestation: I reviewed the patient's lab results. Labs: Lab Results 09/15/24 Range/Units 20:54 Urine Color Pending Urine Appearance Pending Urine pH Pending Ur Specific [place] Pending Urine Protein Pending Urine Glucose (UA) Pending Urine Ketones Pending Ur Blood (Man) Pending Urine Nitrate Pending Urine Bilirubin Pending Urine Urobilinogen Pending Leukocyte Esterase Rfl Pending Urine Test Negative Discharge Plan Discharge Clinical Impression: Vaginal bleeding Patient Disposition: Elopement After Seen by Prov Patient Language: Burundian Prescriptions: No Action oxycodone-acetaminophen [Percocet] 10-325 mg tablet 1 tablet PO Q4H PRN (Reason: pain) Qty: 5 0RF ondansetron 4 mg tablet,disintegrating 4 mg PO Q6H PRN (Reason: nausea and vomiting) Qty: 20 0RF hydroxyzine HCl 25 mg tablet 25 mg PO TID methylprednisolone 4 mg tablets,dose pack promethazine 25 mg suppository 25 mg RECTAL Q6H PRN (Reason: nausea and vomiting) Qty: 12 0RF ondansetron 4 mg tablet,disintegrating 4 mg PO Q8H PRN (Reason: nausea and vomiting) Qty: 30 0RF oxycodone-acetaminophen [Percocet] 10-325 mg tablet 1 tablet PO Q6H PRN (Reason: pain) Qty: 20 0RF ondansetron 4 mg tablet,disintegrating 4 mg PO Q8H PRN (Reason: nausea and vomiting) Qty: 10 0RF amoxicillin-pot clavulanate 875-125 mg tablet 1 tablet PO Q12H 7 Days Qty: 14 0RF potassium chloride 20 mEq/15 mL liquid 20 meq PO DAILY 7 Days Qty: 105 0RF promethazine 25 mg suppository 25 mg RECTAL Q6H PRN (Reason: nausea and vomiting) Qty: 12 0RF megestrol 400 mg/10 mL (40 mg/mL) suspension promethazine [Promethegan] 25 mg suppository RECTAL valacyclovir 500 mg tablet morphine 30 mg tablet hydroxyzine HCl 25 mg tablet ibuprofen 600 mg tablet ondansetron 4 mg tablet,disintegrating pregabalin 50 mg capsule phenazopyridine [Pyridium] 200 mg tablet 200 mg PO TID Qty: 6 0RF Follow-up/Referrals: PHYSICIAN,SUPERVISOR FISH HATCHERY [Primary Care Provider] -
--- OUTSIDE RECORDS SUMMARY | 2024-09-15 20:56 | XMS_ITS | Encounter Summary ---
Author Organization [facility] Address [address] [place] [address] Phone Care Team Providers Care Knee Bolter Name Role Phone Richard Fish NP Primary Care Provider Encounter Details Date Type Department Care Team (Late st Contact Info) Description 09/15/2024 Orders Only [facility] [address] [place] [address] Ramy Aguilera MD [address] [place] [address] Lymphoma of lymph nodes (HCC) Social History [...] 09/15/2024 documented in this encounter Care Teams Knee Bolter Relationship Specialty Start Date End Date Richard Fish NP [address] [facility] [place] [address] PCP - General Nurse Practitioner 02/13/24 documented as of this encounter
--- OUTSIDE RECORDS SUMMARY | 2024-09-15 20:56 | XMS_ITS | Encounter Summary ---
Author Organization [facility] Address [address] [place] [address] Care Team Providers Care Arch Support Technician Name Role Phone Richard Fish GUEST EXPERIENCE SPECIALIST Primary Care Provider Encounter Details Date Type Department Care Team (Late st Contact Info) Description 09/15/2024 9:48 AM CDT Hospital Encounter [facility] [place] [address] Arrived Social History Tobacco Use Types Packs/Day [...] Outside Reference (09/15/2024 9:48 AM CDT) Impressions RAD_PACS_[facility] - 09/15/2024 9:48 AM CDT These images are for Reference purposes only and have not been reviewed by [facility]. There will be no report generated by a [facility] Radiologist. Narrative RAD_PACS_[facility] - 09/15/2024 9:48 AM CDT EXAMINATION: Images For Reference Purposes Only us Ramy Aguilera MD IMG CT PROCEDURES Final Resu lt [facility]_PACS_[facility] documented in this encounter Visit Diagnoses Not on filedocumented in this encounter Care Teams Arch Support Technician Relationship Specialty Start Date End Date Richard Fish NP [address] [place] [address] [place] [address] PCP - General Nurse Practitioner 02/13/24 documented as of this encounter
--- OUTSIDE RECORDS SUMMARY | 2024-09-15 20:56 | XMS_ITS | Encounter Summary ---
Author Organization [facility] Healthcare Address [address] [place] [address] Care Team Providers Care Produce Runner Name Role Phone Richard Fish MINE DEPUTY Primary Care Provider Encounter Details Date Type Department Care Team (Late st Contact Info) Description 09/15/2024 9:45 AM CDT Hospital Encounter [facility] [place] [address] Arrived Social History Tobacco Use Types Packs/Day [...] Outside Reference (09/15/2024 9:45 AM CDT) Impressions RAD_PACS_[facility] - 09/15/2024 9:45 AM CDT These images are for Reference purposes only and have not been reviewed by [facility]. There will be no report generated by a [facility] Radiologist. Narrative [facility]_PACS_[facility] - 09/15/2024 9:45 AM CDT EXAMINATION: Images For Reference Purposes Only us Ramy Aguilera MD IMG CT PROCEDURES Final Resu lt [facility]ACS_[facility] documented in this encounter Visit Diagnoses Not on filedocumented in this encounter Care Teams Produce Runner Relationship Specialty Start Date End Date Richard Fish NP [address] [place] [address] [place] [address] PCP - General Nurse Practitioner 02/13/24 documented as of this encounter
--- OUTSIDE RECORDS SUMMARY | 2024-09-15 20:56 | XMS_ITS ---
Author Organization [facility] Address [address] [place] [address] Phone Care Team Providers Care Permit Review Assistant Name Role Phone Gabriel Salmeron MD Unavailable [phone] Brooks Sosa MD Unavailable [phone] Provider, None Primary Care Provider UnavailKervin Rubi MD Unavailable [facility] Status:Enrolled (Active) Start date:05/05/2024 Enrollment date:05/05/2024 Related social drivers of health:Social Connections, Tobacco Use, Depression, Stress, Physical Activity, Utilities Continued Care and Services Coordination
--- OUTSIDE RECORDS SUMMARY | 2024-09-15 20:56 | XMS_ITS | Clinical Summary ---
Author Organization [facility] Address [address] [address] Care Team Providers Care Service Tech Name Role Phone Unavailable Primary Care Provider Unavailabl e Source Comments [facility],non-owned Affiliates and Associated Physician Practices is amultiple site organization consisting of ambulatory clinics and hospital sitesin [place], [place], [place] and [place]. This disclosure is being madepursuant to the Care Everywhere program and may not contain all information available regarding this patient. Last updated 17.[facility] Social History Tobacco Use Types Packs/Day Years [...] patient's age to complete this topic [place] [place] [id number]
--- OUTSIDE RECORDS SUMMARY | 2024-09-15 20:56 | XMS_ITS | Encounter Summary ---
Author Organization [facility] Healthcare Address [address] [place] [address] Care Team Providers Care Derrick Worker Name Role Phone Richard Fish GI TECHNICIAN Primary Care Provider Reason for Visit * Reason Comments Vaginal Bleeding Encounter Details Date Type Department Care Team (Late st Contact Info) Description 09/13/2024 7:06 PM CDT - 09/13/2024 8:33 PM CDT Emergency [facility] Emergency Department [facility] [place] [address] Mario Murray, DO [address] [place] [address] Lymphoma, unspecified body region, unspecified lymphoma type [...] Care Everywhere. * Non-Hodgkin Lymphoma (Discharge Care) (Latvian) documented in this encounter Medications at Time [...] no improvement. Pt has had scans at [facility] and has an appointment scheduled at [facility] (Thermal) x3 days from today. Pt has no [...] Use: Not At Risk (05/07/2023) Received from [facility] AUDIT-C [...] by Roland Christiansen M.D. T: Report ID: [id number] Reading Location: [place] [address] XR Ribs Right W PA Chest 3 [...] Roland Duarten M.D. BC T: Report ID: [id number] Reading Location: [id number] BP 102/67 Pulse 99 Temp 36.4 ??C [...] ur Yellow Yellow Comment:Testing performed by : [address] [address] Clarity, ur Clear Clear JOSELYN Comment:Testing performed by : [address] [address] Specific gravity, ur 1.009 1.003 - 1.030 JOSELYN Comment:Testing performed by : [address] [address] pH, urine 6.5 JOSELYN Comment: Interpretive Data U rine pH is affected by diet, medications, systemic acid-base disturbances, and renal tubular function. pH may affect urinary stone formation. For example, urine pH below 6.0 may help reduce the tendency for calcium phosphate stones and pH greater than 6.0 may reduce the tendency for uric acid stone formation. Source: [facility] [employer] Current Interpretive Data was last revised on 2017 Testing performed by: [facility], [address] [place] [address]., [address] Protein, ur ql Negative Negative JOSELYN Comment:Testing performed by : [address] [address] Glucose, ur ql Negative Negative JOSELYN Comment:Testing performed by : [address], [place]., [address] Ketones, ur Negative Negative JOSELYN Comment:Testing performed by : [address] [address] Bilirubin, ur Negative Negative JOSELYN Comment:Testing performed by : [address], [place]., [address] Blood, ur Negative Negative JOSELYN Comment:Testing performed by : [address] [address] Urobilinogen, ur <2.0 <2.0 mg/dL JOSELYN Comment:Testing performed by : [address] [address] Nitrite, ur Negative Negative JOSELYN Comment:Testing performed by : [address] [address] Leukocyte esterase, ur Negative Negative JOSELYN Comment:Testing performed by : [address] [address] UA reflex comment Reflex conditions for microscopic UA and culture not met. JOSELYN Comment:Testing performed by : [address] [address] Urine 09/13/2024 7:18 PM CDT 09/13/2024 7:22 PM CDT us Mario Murray DO LAB MICROBIOLOGY - GENERAL ORD ERABLES Final Result JOSELYN VAZQUEZ [address] [facility] Department [place] [address] * POCT glucose (09/13/2024 7:10 PM CDT) Pathologist [facility] Glucose, POC 104 70 - 199 mg/dL Comment:Testing performed by : [facility], [address] [place] [address]., [address] Glucose comment 1 RN/MD Notified JOSELYN VAZQUEZ Comment:Testing performed by : [facility], [address] [place] [address]., [address] Blood 09/13/2024 7:10 PM CDT 09/13/2024 7:10 PM CDT Notinfile Unknown LAB POCT ORDERABLES - DEVICE F inal Result JOSELYN [address] [facility] Department [place] [address] * ECG 12 lead (09/13/2024 3:43 PM CDT) Pathologist [facility] Ventricular Rate EKG/Min 103 BPM [facility] Atrial Rate 103 BPM [facility] NC-Interval (MSEC) 128 ms [facility] QRS-Interval (MSEC) 88 ms [facility] QT-Interval (MSEC) 358 ms [facility] QTc 468 ms [facility] P [place] 54 degrees [facility] R [place] 55 degrees [facility] T [place] 38 degrees [facility] Diagnosis Sinus tachycardia Possible Left atrial enlargement RSR' or QR pattern in V1 suggests right ventricular conduction delay Nonspecific T wave abnormality Abnormal ECG No previous ECGs available Confirmed by YANDY LEON M.D. ([id number]) on 09/13/2024 8:06:17 PM [facility] 09/13/2024 3:43 PM CDT 09/13/2024 8:06 PM CDT us Mario Murray DO ECG ORDERABLES Final Result Performing Organization Address City/[facility]/ZIP Co de Phone Number [facility] * Uric acid (09/13/2024 3:43 PM CDT) Pathologist [facility] Uric acid 5.0 2.5 - 7.0 mg/dL Comment:Testing performed by : [address] [address] Blood 09/13/2024 3:43 PM CDT 09/13/2024 3:48 PM CDT Mario [employer] LAB BLOOD ORDERABLES Final Res ult Performing Organization Address City/[facility]/ZIP Co de Phone Number DARR[address] [address] * Phosphorus (09/13/2024 3:43 PM CDT) Phosphorus, pl 3.0 2.3 - 4.5 mg/dL Comment:Testing performed by : [address] [address] Blood 09/13/2024 3:43 PM CDT 09/13/2024 3:48 PM CDT Mario [employer] LAB BLOOD ORDERABLES Final Res ult Performing Organization Address [facility] de Phone Number [address] [address] * Lactate dehydrogenase (LD) (09/13/2024 3:43 PM CDT) Lactate dehydrogenase (LDH) 216 100 - 250 Units/L Comment:Testing performed by : [address] [address] Blood 09/13/2024 3:43 PM CDT 09/13/2024 3:48 PM CDT [employer] LAB BLOOD ORDERABLES Final Res ult Performing Organization Address [facility] Co de Phone Number [address] [address] * Magnesium (09/13/2024 3:43 PM CDT) Pathologist [facility] Magnesium 1.8 1.4 - 2.5 mg/dL Comment:Testing performed by : [facility], [address] [place] [address]., [address] Blood 09/13/2024 3:43 PM CDT 09/13/2024 3:48 PM CDT us Spike Perales III, MD LAB BLOOD ORDERABLES F inal Result Performing Organization Address [facility]/ZIP Co de Phone Number JOSELYN [facility] Department [place] [address] * hCG, blood, quantitative (09/13/2024 3:43 PM [...] last revised on 2023 Testing performed by: [facility], [address] [place] [address]., [address] Blood 09/13/2024 3:43 PM CDT 09/13/2024 3:48 PM CDT us Mario Murray DO LAB BLOOD ORDERABLES Edited Re sult - Final Performing Organization Address City[facility]/ZIP Co de Phone Number JOSELYN [facility] [place] [address] * eGFR (09/13/2024 3:43 PM CDT) eGFR [...] was last reviewed 2021. Testing performed by: [address] [address] Blood 09/13/2024 3:43 PM CDT 09/13/2024 3:48 PM CDT us Mario Murray DO LAB BLOOD ORDERABLES Final Res ult [place] [address] [facility] Department [place] [address] * Differential, auto (09/13/2024 3:43 PM CDT) Neutrophil abs 2.62 1.50 - 6.50 K/cumm Comment:Testing performed by : [address] [address] Imm gran abs 0.02 0.00 - 0.10 K/cumm JOSELYN Comment:Testing performed by : [address] [address] Lymphocyte abs 2.86 0.80 - 3.30 K/cumm JOSELYN Comment:Testing performed by : [address] [address] Monocyte abs 0.58 0.20 - 0.80 K/cumm JOSELYN Comment:Testing performed by : [address] [address] Eosinophil abs 0.09 0.00 - 0.50 K/cumm JOSELYN Comment:Testing performed by : [address] [address] Basophil abs 0.05 0.00 - 0.10 K/cumm JOSELYN Comment:Testing performed by : [address] [address] Neutrophil pct 42.2 % [facility] Comment: Interpretive Data Percent cell count reference ranges are not reported, since discordance with absolute values may lead to misinterpretation of CBC data. Current Interpretive Data was last revised on 2017. Testing performed by: [address] [address] Imm gran pct 0.3 % [facility] Comment: Interpretive Data Percent cell count reference ranges are not reported, since discordance with absolute values may lead to misinterpretation of CBC data. Current Interpretive Data was last revised on 2017. Testing performed by: [address] [address] Lymphocyte pct 46.0 % [facility] Comment: Interpretive Data Percent cell count reference ranges are not reported, since discordance with absolute values may lead to misinterpretation of CBC data. Current Interpretive Data was last revised on 2017. Testing performed by: [address] [address] Monocyte pct 9.3 % [facility] Comment: Interpretive Data Percent cell count reference ranges are not reported, since discordance with absolute values may lead to misinterpretation of CBC data. Current Interpretive Data was last revised on 2017. Testing performed by: [address] [address] Eosinophil pct 1.4 % [facility] Comment: Interpretive Data Percent cell count reference ranges are not reported, since discordance with absolute values may lead to misinterpretation of CBC data. Current Interpretive Data was last revised on 2017. Testing performed by: [address] [address] Basophil pct 0.8 % [facility] Comment: Interpretive Data Percent cell count reference ranges are not reported, since discordance with absolute values may lead to misinterpretation of CBC data. Current Interpretive Data was last revised on 2017. Testing performed by: [address] [address] Blood 09/13/2024 3:43 PM CDT 09/13/2024 3:48 PM CDT Mario [employer] DO LAB BLOOD ORDERABLES Final Res ult Performing Organization Address City/[facility]/ZIP Co de Phone Number JOSELYN [address] [address] * Lipase (09/13/2024 3:43 PM CDT) Lipase 11 10 - 99 Units/L Comment:Testing performed by : [address] [address] Blood Venous blood specimen / Unknown 09/13/2024 3:43 PM CDT 09/13/2024 3:48 PM CDT Mario [employer] DO LAB BLOOD ORDERABLES Final Res ult Performing Organization Address [facility] Co de Phone Number JOSELYN [address] [address] * (ABNORMAL) Comprehensive metabolic panel (09/13/2024 3:43 PM CDT) Pathologist [facility] Sodium 143 135 - 145 mmol/L Comment:Testing performed by : [address] [address] Potassium, pl 2.7(L) 3.3 - 4.9 mmol/L JOSELYN Comment:Testing performed by : [address] [address] Chloride 99 97 - 110 mmol/L JOSELYN Comment:Testing performed by : [address] [address] CO2 28 22 - 32 mmol/L JOSELYN Comment:Testing performed by : [address] [address] Anion gap 16(H) 2 - 15 mmol/L JOSELYN Comment:Testing performed by : [address] [address] BUN 5(L) 6 - 25 mg/dL JOSELYN Comment:Testing performed by : [address] [address] Creatinine 0.60 0.60 - 1.10 mg/dL [facility] Comment:Testing performed by : [address] [address] Glucose 69(L) 70 - 199 mg/dL [facility] Comment: Interpretive Data Fasting glucose >/= 126 [...] was last revised 2022. Testing performed by: [address] [address] Calcium 9.2 8.5 - 10.3 mg/dL [facility] Comment:Testing performed by : [address] [address] Bilirubin, total 0.5 0.1 - 1.2 mg/dL [facility] Comment:Testing performed by : [address] [address] Protein, pl 6.4(L) 6.5 - 8.5 g/dL [facility] Comment:Testing performed by : [address] [address] Albumin 4.2 3.5 - 5.0 g/dL [facility] Comment:Testing performed by : [address] [address] Alk phos 155(H) 40 - 130 Units/L [facility] Comment:Testing performed by : [address] [address] ALT 6(L) 7 - 45 Units/L [facility] Comment:Testing performed by : [address] [address] AST 15 10 - 45 Units/L [facility] Comment:Testing performed by : [address] [address] Blood 09/13/2024 3:43 PM CDT 09/13/2024 3:48 PM CDT us Mario Murray DO LAB BLOOD ORDERABLES Final Res ult JOSELYN [address] [facility] Department [place] [address] * (ABNORMAL) CBC with auto differential (09/13/2024 3:43 PM CDT) WBC 6.22 3.80 - 9.90 K/cumm Comment:Testing performed by : [address] [address] Hgb 12.6 11.9 - 15.5 g/dL JOSELYN Comment:Testing performed by : [address] [address] Hct 35.9 35.6 - 45.5 % JOSELYN Comment:Testing performed by : [address] [address] Plt 168 150 - 400 K/cumm JOSELYN Comment:Testing performed by : [address] [address] MPV 9.3 9.1 - 12.3 fL JOSELYN Comment:Testing performed by : [address] [address] RBC 4.00 3.90 - 5.20 M/cumm JOSELYN Comment:Testing performed by : [address] [address] MCV 89.8 81.3 - 96.4 fL JOSELYN Comment:Testing performed by : [address] [address] MCH 31.5 27.1 - 33.3 pg JOSELYN VAZQUEZ Comment:Testing performed by : [address] [address] MCHC 35.1 32.3 - 35.7 g/dL JOSELYN Comment:Testing performed by : [address], [address] RDW CV 15.3(H) 11.1 - 14.9 % JOSELYN VAZQUEZ Comment:Testing performed by : [address] [address] RDW SD 49.8(H) 35.7 - 48.1 fL JOSELYN VAZQUEZ Comment:Testing performed by : [address] [address] NRBC abs 0.00 0.00 - 0.01 K/cumm JOSELYN Comment:Testing performed by : [address] [address] Blood Venous blood specimen / Unknown 09/13/2024 3:43 PM CDT 09/13/2024 3:48 PM CDT Mario Murray DO LAB BLOOD ORDERABLES Final Res ult JOSELYN VAZQUEZ [facility] Department [place] [address] documented in this encounter Visit Diagnoses Diagnosis [...] 09/13/2024 documented in this encounter Care Teams Derrick Worker Relationship Specialty Start Date End Date Richard Fish NP [address] [place] [address] PCP - General Nurse Practitioner 02/13/24 documented as of this encounter
--- OUTSIDE RECORDS SUMMARY | 2024-09-15 20:56 | XMS_ITS | Encounter Summary ---
Author Organization [facility] Healthcare Address [address] [place] [address] Care Team Providers Care Knife Edger Name Role Phone Richard Fish DRYWALL FINISHER Primary Care Provider Encounter Details Date Type Department Care Team (Late st Contact Info) Description 09/15/2024 9:44 AM CDT Hospital Encounter [facility] Radiology [facility] [place] [address] Arrived Social History Tobacco Use Types Packs/Day [...] only and have not been reviewed by [facility] Radiology. There will be no report generated by a [facility] Radiologist. Narrative RAD_PACS_[facility] - 09/15/2024 9:44 AM CDT EXAMINATION: Images For Reference Purposes Only us Ramy Aguilera MD IMG CT PROCEDURES Final Resu lt [facility] documented in this encounter Visit Diagnoses Not on filedocumented in this encounter Care Teams Knife Edger Relationship Specialty Start Date End Date Richard Fish NP [address] [place] [address] [place] [address] PCP - General Nurse Practitioner 02/13/24 documented as of this encounter
--- OUTSIDE RECORDS SUMMARY | 2024-09-15 20:56 | XMS_ITS | Encounter Summary ---
Author Organization [facility] Healthcare Address [address] [place] [address] Care Team Providers Care Cloud Infrastructure Architect Name Role Phone Richard Fish TUBULAR STOCK GLASS BULB MACHINE FORMER Primary Care Provider Encounter Details Date Type Department Care Team (Late st Contact Info) Description 09/15/2024 9:47 AM CDT Hospital Encounter [facility] Radiology [facility] [place] [address] Arrived Social History Tobacco Use Types Packs/Day [...] only and have not been reviewed by [facility] Radiology. There will be no report generated by a [facility] Radiologist. Narrative RAD_PACS_[facility] - 09/15/2024 9:47 AM CDT EXAMINATION: Images For Reference Purposes Only us Ramy Aguilera MD IMG CT PROCEDURES Final Resu lt [facility] documented in this encounter Visit Diagnoses Not on filedocumented in this encounter Care Teams Cloud Infrastructure Architect Relationship Specialty Start Date End Date Richard Fish NP [address] [place] [address] [place] [address] PCP - General Nurse Practitioner 02/13/24 documented as of this encounter
--- OUTSIDE RECORDS SUMMARY | 2024-09-15 20:56 | XMS_ITS | Referral Summary ---
Author Organization [facility] [address] [facility] Address [address] [place] [address] Care Team Providers Care Manager Electrical Name Role Phone Richard Fish NP Primary Care Provider Encounters Date Type Department Care Team Description 09/15/2024 Orders Only [facility] [address] [place] [address] Ramy Aguilera MD Lymphoma of lymph nodes (HCC) 09/15/2024 9:49 AM CDT Hospital Encounter [facility] [address] [place] [address] Arrived 09/15/2024 9:48 AM CDT Hospital Encounter [facility] ([facility]) [address] [place] [address] Arrived 09/15/2024 9:47 AM CDT Hospital Encounter [facility]) [address] [place] [address] Arrived 09/15/2024 9:47 AM CDT Hospital Encounter [facility] ([facility]) [address] [place] [address] Arrived 09/15/2024 9:46 AM CDT Hospital Encounter [facility]) [address] [place] [address] Arrived 09/15/2024 9:45 AM CDT Hospital Encounter [facility]) [address] [place] [address] Arrived 09/15/2024 9:45 AM CDT Hospital Encounter [facility]) [address] [place] [address] Arrived 09/15/2024 9:44 AM CDT Hospital Encounter [facility]) [address] [place] [address] Arrived 09/14/2024 Orders Only [facility] [address] [facility] [address] [place] [id number] Ramy Aguilera MD Lymphoma of lymph nodes (HCC) (Primary Dx) 09/13/2024 7:06 PM CDT - 09/13/2024 8:33 PM CDT Emergency [facility] [address] [place] [address] Mario Murray DO Lymphoma, unspecified body region, unspecified lymphoma type (HCC) (Primary Dx); Hypokalemia; Vaginal bleeding; Myalgia Discharge Disposition: Discharge to home or self care 09/05/2024 Documentation [facility] [address] [facility] Floor [address] [place] [address] Nora Cheema MD 08/23/[address] [phone] Hannah Wilder, GUERO Scheduling Appointments 08/12/[address] [phone] Hannah Wilder, GUERO Scheduling Appointments from Last [...] by a [facility] Radiologist. Narrative [facility] - 09/15/2024 9:49 AM CDT EXAMINATION: Images For Reference Purposes Only us Ramy Aguilera MD IMG CT PROCEDURES Final Resu lt Performing Organization Address [facility] de Phone Number [facility] * CT Body Outside Reference (09/15/2024 9:48 AM CDT) Impressions [facility] - 09/15/2024 9:48 AM CDT These images are for Reference purposes only and have not been reviewed by [facility]. There will be no report generated by a [facility] Radiologist. Narrative [facility] - 09/15/2024 9:48 AM CDT EXAMINATION: Images For Reference Purposes Only us Ramy Aguilera MD IMG CT PROCEDURES Final Resu lt Performing Organization Address [facility] de Phone Number [facility] * CT Body Outside Reference (09/15/2024 9:47 AM CDT) Impressions [facility] - 09/15/2024 9:47 AM CDT These images are for Reference purposes only and have not been reviewed by [facility]. There will be no report generated by a [facility] Radiologist. Narrative [facility] - 09/15/2024 9:47 AM CDT EXAMINATION: Images For Reference Purposes Only us Ramy Aguilera MD IMG CT PROCEDURES Final Resu lt Performing Organization Address [facility] Co de Phone Number [facility] * CT Body Outside Reference (09/15/2024 9:47 AM CDT) Impressions [facility] - 09/15/2024 9:47 AM CDT These images are for Reference purposes only and have not been reviewed by [facility]. There will be no report generated by a [facility] Radiologist. Narrative [facility] - 09/15/2024 9:47 AM CDT EXAMINATION: Images For Reference Purposes Only us Ramy Aguilera MD IMG CT PROCEDURES Final Resu lt Performing Organization Address [facility] de Phone Number [facility] * PET Outside Reference (09/15/2024 9:46 AM CDT) Impressions [facility] - 09/15/2024 9:46 AM CDT These images are for Reference purposes only and have not been reviewed by [facility]. There will be no report generated by a [facility] Radiologist. Narrative [facility] - 09/15/2024 9:46 AM CDT EXAMINATION: Images For Reference Purposes Only us Ramy Aguilera MD IMG PET PROCEDURES Final Res ult Performing Organization Address [facility] de Phone Number [facility] * CT Body Outside Reference (09/15/2024 9:45 AM CDT) Impressions [facility] - 09/15/2024 9:45 AM CDT These images are for Reference purposes only and have not been reviewed by [facility]. There will be no report generated by a [facility] Radiologist. Narrative [facility] - 09/15/2024 9:45 AM CDT EXAMINATION: Images For Reference Purposes Only us Ramy Aguilera MD IMG CT PROCEDURES Final Resu lt Performing Organization Address [facility] de Phone Number [facility] * PET Outside Reference (09/15/2024 9:45 AM CDT) Impressions [facility] - 09/15/2024 9:45 AM CDT These images are for Reference purposes only and have not been reviewed by [facility]. There will be no report generated by a [facility] Radiologist. Narrative [facility] - 09/15/2024 9:45 AM CDT EXAMINATION: Images For Reference Purposes Only us Ramy Aguilera MD IMG PET PROCEDURES Final Res ult Performing Organization Address [facility] Co de Phone Number [facility] * CT Body Outside Reference (09/15/2024 9:44 AM CDT) Impressions RAD_PACS_[facility] - 09/15/2024 9:44 AM CDT These images are for Reference purposes only and have not been reviewed by [facility]. There will be no report generated by a [facility] Radiologist. Narrative RAD_PACS_[facility] - 09/15/2024 9:44 AM CDT EXAMINATION: Images For Reference Purposes Only us Ramy Aguilera MD IMG CT PROCEDURES Final Resu lt Performing Organization Address [facility] Co de Phone Number RAD_PACS[facility] * Urinalysis reflex to microscopic and culture Urine (09/13/2024 7:18 PM CDT) Color, ur Yellow Yellow Comment:Testing performed by : [address] [address] Clarity, ur Clear Clear JOSELYN Comment:Testing performed by : [address] [address] Specific gravity, ur 1.009 1.003 - 1.030 JOSELYN Comment:Testing performed by : [address] [address] pH, urine 6.5 JOSELYN Comment: Interpretive Data U rine pH is affected by diet, medications, systemic acid-base disturbances, and renal tubular function. pH may affect urinary stone formation. For example, urine pH below 6.0 may help reduce the tendency for calcium phosphate stones and pH greater than 6.0 may reduce the tendency for uric acid stone formation. Source: [facility] [employer] Current Interpretive Data was last revised on 2017 Testing performed by: [facility], [address] [place] [address]., [id number] Protein, ur ql Negative Negative JOSELYN Comment:Testing performed by : [address] [address] Glucose, ur ql Negative Negative JOSELYN Comment:Testing performed by : [address] [address] Ketones, ur Negative Negative JOSELYN Comment:Testing performed by : [address], [place]., [address] Bilirubin, ur Negative Negative JOSELYN Comment:Testing performed by : [address] [address] Blood, ur Negative Negative JOSELYN Comment:Testing performed by : [address], [place]., [address] Urobilinogen, ur <2.0 <2.0 mg/dL JOSELYN Comment:Testing performed by : [address] [address] Nitrite, ur Negative Negative JOSELYN Comment:Testing performed by : [address] [address] Leukocyte esterase, ur Negative Negative JOSELYN Comment:Testing performed by : [address] [address] UA reflex comment Reflex conditions for microscopic UA and culture not met. JOSELYN Comment:Testing performed by : [address] [address] Urine 09/13/2024 7:18 PM CDT 09/13/2024 7:22 PM CDT us Mario Murray DO LAB MICROBIOLOGY - GENERAL ORD ERABLES Final Result JOSELYN VAZQUEZ [address] [facility] Department [place] [address] * POCT glucose (09/13/2024 7:10 PM CDT) [facility] Glucose, POC 104 70 - 199 mg/dL Comment:Testing performed by : [facility], [address] [place] [address]., [address] Glucose comment 1 RN/MD Notified JOSELYN Comment:Testing performed by : [facility], [address] [place] [address]., [address] Blood 09/13/2024 7:10 PM CDT 09/13/2024 7:10 PM CDT us Notinfile Unknown LAB POCT ORDERABLES - DEVICE F inal Result Performing Organization Address City/[facility]/ZIP Co de Phone Number JOSELYN [address] [facility] [place] [address] * ECG 12 lead (09/13/2024 3:43 PM CDT) [facility] Ventricular Rate EKG/Min 103 BPM [facility] Atrial Rate 103 BPM [facility] NM-Interval (MSEC) 128 ms [facility] QRS-Interval (MSEC) 88 ms [facility] QT-Interval (MSEC) 358 ms [facility] QTc 468 ms [facility] P [place] 54 degrees [facility] R [place] 55 degrees [facility] T [place] 38 degrees [facility] Diagnosis Sinus tachycardia Possible Left atrial enlargement RSR' or QR pattern in V1 suggests right ventricular conduction delay Nonspecific T wave abnormality Abnormal ECG No previous ECGs available Confirmed by YANDY LEON M.D. ([id number]) on 09/13/2024 8:06:17 PM [facility] 09/13/2024 3:43 PM CDT 09/13/2024 8:06 PM CDT us Mario Murray DO ECG ORDERABLES Final Result Performing Organization Address City/[facility]/ZIP Co de Phone Number [facility] * eGFR (09/13/2024 3:43 PM CDT) [facility] eGFR >90 >=60 mL/min/1. 73 m2 [...] was last reviewed 2021. Testing performed by: [address] [address] Blood 09/13/2024 3:43 PM CDT 09/13/2024 3:48 PM CDT us Mario Murray DO LAB BLOOD ORDERABLES Final Res ult JOSELYN [address] [facility] Department [place] [address] * Differential, auto (09/13/2024 3:43 PM CDT) [facility] Neutrophil abs 2.62 1.50 - 6.50 K/cumm Comment:Testing performed by : [address] [address] Imm gran abs 0.02 0.00 - 0.10 K/cumm JOSELYN Comment:Testing performed by : [address] [address] Lymphocyte abs 2.86 0.80 - 3.30 K/cumm JOSELYN Comment:Testing performed by : [address] [address] Monocyte abs 0.58 0.20 - 0.80 K/cumm JOSELYN Comment:Testing performed by : [address] [address] Eosinophil abs 0.09 0.00 - 0.50 K/cumm JOSELYN Comment:Testing performed by : [address] [address] Basophil abs 0.05 0.00 - 0.10 K/cumm [facility] Comment:Testing performed by : [address] [address] Neutrophil pct 42.2 % [facility] Comment: Interpretive Data Percent cell count reference ranges are not reported, since discordance with absolute values may lead to misinterpretation of CBC data. Current Interpretive Data was last revised on 2017. Testing performed by: [address] [address] Imm gran pct 0.3 % [facility] Comment: Interpretive Data Percent cell count reference ranges are not reported, since discordance with absolute values may lead to misinterpretation of CBC data. Current Interpretive Data was last revised on 2017. Testing performed by: [address] [address] Lymphocyte pct 46.0 % [facility] Comment: Interpretive Data Percent cell count reference ranges are not reported, since discordance with absolute values may lead to misinterpretation of CBC data. Current Interpretive Data was last revised on 2017. Testing performed by: [address] [address] Monocyte pct 9.3 % [facility] Comment: Interpretive Data Percent cell count reference ranges are not reported, since discordance with absolute values may lead to misinterpretation of CBC data. Current Interpretive Data was last revised on 2017. Testing performed by: [address] [address] Eosinophil pct 1.4 % [facility] Comment: Interpretive Data Percent cell count reference ranges are not reported, since discordance with absolute values may lead to misinterpretation of CBC data. Current Interpretive Data was last revised on 2017. Testing performed by: [address] [address] Basophil pct 0.8 % [facility] Comment: Interpretive Data Percent cell count reference ranges are not reported, since discordance with absolute values may lead to misinterpretation of CBC data. Current Interpretive Data was last revised on 2017. Testing performed by: [address] [address] Blood 09/13/2024 3:43 PM CDT 09/13/2024 3:48 PM CDT Mario Murray DO LAB BLOOD ORDERABLES Final Res ult JOSELYN [address] [facility] Department [place] [address] * (ABNORMAL) CBC with auto differential (09/13/2024 3:43 PM CDT) WBC 6.22 3.80 - 9.90 K/cumm Comment:Testing performed by : [address] [address] Hgb 12.6 11.9 - 15.5 g/dL JOSELYN Comment:Testing performed by : [address] [address] Hct 35.9 35.6 - 45.5 % JOSELYN Comment:Testing performed by : [address] [address] Plt 168 150 - 400 K/cumm JOSELYN Comment:Testing performed by : [address] [address] MPV 9.3 9.1 - 12.3 fL JOSELYN Comment:Testing performed by : [address] [address] RBC 4.00 3.90 - 5.20 M/cumm JOSELYN Comment:Testing performed by : [address] [address] MCV 89.8 81.3 - 96.4 fL JOSELYN Comment:Testing performed by : [address] [address] MCH 31.5 27.1 - 33.3 pg JOSELYN VAZQUEZ Comment:Testing performed by : [address] [address] MCHC 35.1 32.3 - 35.7 g/dL JOSELYN VAZQUEZ Comment:Testing performed by : [address] [address] RDW CV 15.3(H) 11.1 - 14.9 % JOSELYN VAZQUEZ Comment:Testing performed by : [address] [address] RDW SD 49.8(H) 35.7 - 48.1 fL JOSELYN VAZQUEZ Comment:Testing performed by : [address] [address] NRBC abs 0.00 0.00 - 0.01 K/cumm JOSELYN VAZQUEZ Comment:Testing performed by : [address] [address] Blood Venous blood specimen / Unknown 09/13/2024 3:43 PM CDT 09/13/2024 3:48 PM CDT Mario Murray DO LAB BLOOD ORDERABLES Final Res ult JOSELYN [address] [facility] Department [place] [address] * hCG, blood, quantitative (09/13/2024 3:43 PM CDT) Pathologist [facility] hCG, quant <5.0 0.0 - 5.0 IUnits/L Comment: Interpretive Data Male: < 5 IU/L Non- premenopausal Female: <5 IU/L The [employer] hCG Beta Quant assay procedure was used. Results from different manufacturers or methods may not be comparable. Serial testing should be performed using the same method. Interpretive Data was last revised on 2023 Testing performed by: [address] [address] Blood 09/13/2024 3:43 PM CDT 09/13/2024 3:48 PM CDT Mario Murray LAB BLOOD ORDERABLES Edited Re sult - Final Performing Organization Address [facility]/ZIP Co de Phone Number JOSELYN [address] [address] * Uric acid (09/13/2024 3:43 PM CDT) Uric acid 5.0 2.5 - 7.0 mg/dL Comment:Testing performed by : [address] [address] Blood 09/13/2024 3:43 PM CDT 09/13/2024 3:48 PM CDT Mario Murray DO LAB BLOOD ORDERABLES Final Res ult Performing Organization Address [facility] Co de Phone Number JOSELYN [address] [address] * Phosphorus (09/13/2024 3:43 PM CDT) Phosphorus, pl 3.0 2.3 - 4.5 mg/dL Comment:Testing performed by : [address] [address] Blood 09/13/2024 3:43 PM CDT 09/13/2024 3:48 PM CDT Mario Murray DO LAB BLOOD ORDERABLES Final Res ult Performing Organization Address [facility] Co de Phone Number DARRIN[address] [address] * Magnesium (09/13/2024 3:43 PM CDT) Magnesium 1.8 1.4 - 2.5 mg/dL Comment:Testing performed by : [address] [address] Blood 09/13/2024 3:43 PM CDT 09/13/2024 3:48 PM CDT Spike Perales III, MD LAB BLOOD ORDERABLES F inal Result Performing Organization Address [facility] Co de Phone Number [address] [address] * Lipase (09/13/2024 3:43 PM CDT) Pathologist [facility] Lipase 11 10 - 99 Units/L Comment:Testing performed by : [address] [address] Blood Venous blood specimen / Unknown 09/13/2024 3:43 PM CDT 09/13/2024 3:48 PM CDT Mario Murray DO LAB BLOOD ORDERABLES Final Res ult Performing Organization Address [facility] Co de Phone Number [address] [place] [address] * Lactate dehydrogenase (LD) (09/13/2024 3:43 PM CDT) Pathologist [facility] Lactate dehydrogenase (LDH) 216 100 - 250 Units/L Comment:Testing performed by : [address] [address] Blood 09/13/2024 3:43 PM CDT 09/13/2024 3:48 PM CDT Mario Murray DO LAB BLOOD ORDERABLES Final Res ult Performing Organization Address [facility] Co de Phone Number [address] [place] [address] * (ABNORMAL) Comprehensive metabolic panel (09/13/2024 3:43 PM CDT) Pathologist [facility] Sodium 143 135 - 145 mmol/L Comment:Testing performed by : [address] [address] Potassium, pl 2.7(L) 3.3 - 4.9 mmol/L JOSELYN Comment:Testing performed by : [address] [address] Chloride 99 97 - 110 mmol/L [facility] Comment:Testing performed by : [address] [address] CO2 28 22 - 32 mmol/L [facility] Comment:Testing performed by : [address] [address] Anion gap 16(H) 2 - 15 mmol/L JOSELYN Comment:Testing performed by : [address] [address] BUN 5(L) 6 - 25 mg/dL [facility] Comment:Testing performed by : [address] [address] Creatinine 0.60 0.60 - 1.10 mg/dL JOSELYN Comment:Testing performed by : [address] [address] Glucose 69(L) 70 - 199 mg/dL [facility] Comment: Interpretive Data Fasting glucose >/= 126 [...] was last revised 2022. Testing performed by: [address] [address] Calcium 9.2 8.5 - 10.3 mg/dL [facility] Comment:Testing performed by : [address] [address] Bilirubin, total 0.5 0.1 - 1.2 mg/dL [facility] Comment:Testing performed by : [address] [address] Protein, pl 6.4(L) 6.5 - 8.5 g/dL [facility] Comment:Testing performed by : [address] [address] Albumin 4.2 3.5 - 5.0 g/dL JOSELYN VAZQUEZ Comment:Testing performed by : [facility], [address] [place] [address]., [address] Alk phos 155(H) 40 - 130 Units/L JOSELYN VAZQUEZ Comment:Testing performed by : [address] [address] ALT 6(L) 7 - 45 Units/L JOSELYN VAZQUEZ Comment:Testing performed by : [address] [address] AST 15 10 - 45 Units/L JOSELYN VAZQUEZ Comment:Testing performed by : [address] [address] Blood 09/13/2024 3:43 PM CDT 09/13/2024 3:48 PM CDT us Mario Murray DO LAB BLOOD ORDERABLES Final Res ult Performing Organization Address City/State/[facility] Co de Phone Number JOSELYN [address] [facility] Department [place] [address] from Last 3 Months Insurance [facility] Care Teams Manager Electrical Relationship Specialty Start Date End Date Richard Fish NP [address] [place] [id number] PCP - General Nurse Practitioner 02/13/24
--- OUTSIDE RECORDS SUMMARY | 2024-09-15 20:56 | XMS_ITS | Encounter Summary ---
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 There will be no report generated by a [facility] Radiologist. Narrative RAD_PACS_[facility] - 09/15/2024 9:49 AM CDT EXAMINATION: Images For Reference Purposes Only us Ramy Aguilera MD IMG CT PROCEDURES Final Resu lt [facility] documented in this encounter Visit Diagnoses Not on filedocumented in this encounter Care Teams Shotgun Shell Loading 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 Relationship Specialty Start Date End Date Richard Fish NP [address] [place] [address] [place] [address] PCP - General Nurse Practitioner 02/13/24 documented as of this encounter
--- OUTSIDE RECORDS SUMMARY | 2024-09-15 20:56 | XMS_ITS | Clinical Summary ---
Author Organization [place] [id number] [facility] Address [address] [place] [address] Care Team Providers Care Curling 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 Name Role Phone Richard Fish [...] Description 09/15/2024 9:49 AM CDT Hospital Encounter [facility] [address] [place] [address] Arrived 09/15/2024 9:48 AM CDT Hospital Encounter [facility]) [address] [place] [address] Arrived 09/15/2024 9:47 AM CDT Hospital Encounter [facility]) [address] [place] [address] Arrived 09/15/2024 9:47 AM CDT Hospital Encounter [facility]) [address] [place] [address] Arrived 09/15/2024 9:46 AM CDT Hospital Encounter [facility]) [address] [place] [address] Arrived 09/15/2024 9:45 AM CDT Hospital Encounter [facility]) [address] [place] [address] Arrived 09/15/2024 9:45 AM CDT Hospital Encounter [facility]) [address] [place] [address] Arrived 09/15/2024 9:44 AM CDT Hospital Encounter [facility]) [address] [place] [address] Arrived 09/15/2024 Orders Only [facility] [address] [address] Ramy Aguilera MD Lymphoma of lymph nodes (HCC) 09/14/2024 Orders Only [facility] Oncology [address] [facility] [address] [place] [id number] Ramy Aguilera MD Lymphoma of lymph nodes (HCC) (Primary Dx) 09/13/2024 7:06 PM CDT - 09/13/2024 8:33 PM CDT Emergency [facility] Emergency Department [address] [place], [place] [id number] Mario Murray DO Lymphoma, unspecified body region, unspecified lymphoma type (HCC) (Primary Dx); Hypokalemia; Vaginal bleeding; Myalgia Discharge Disposition: Discharge to home or self care 09/05/2024 Documentation [facility] Oncology [address] [facility] Floor [address] [place] [id number] Nora Cheema MD 08/23/[address] [phone] Hannah Wilder, RN Scheduling Appointments 08/12/[address] [address] Hannah Wilder, RN Scheduling Appointments [...] [facility] Radiologist. Narrative RAD_PACS_[facility] - 09/15/2024 9:49 AM [...] [facility] Radiologist. Narrative RAD_PACS_[facility] - 09/15/2024 9:48 AM CDT EXAMINATION: Images For Reference Purposes Only us Ramy Tino Aguilera MD IMG CT PROCEDURES Final Resu lt Performing Organization Address [facility] Co de Phone Number [facility] * CT [...] CT PROCEDURES Final Resu Performing Organization Address [facility] de Phone Number [facility] * CT Body [...] PROCEDURES Final Resu lt Performing Organization Address [facility] de Phone Number [facility] * PET Outside [...] PROCEDURES Final Res ult Performing Organization Address [facility] de Phone Number [facility] * CT Body [...] PROCEDURES Final Resu lt Performing Organization Address [facility] de Phone Number [facility] * PET Outside [...] PROCEDURES Final Res ult Performing Organization Address [facility] de Phone Number [facility] * CT Body Outside Reference (09/15/2024 9:44 AM CDT) Impressions [facility] - 09/15/2024 9:44 AM CDT These images are for Reference purposes only and have not been reviewed by [facility] Radiology. There will be no report generated by a [facility] Radiologist. Narrative [facility] - 09/15/2024 9:44 AM CDT EXAMINATION: Images For Reference Purposes Only us Ramy Aguilera MD IMG CT PROCEDURES Final Resu lt [facility] * Urinalysis reflex to microscopic and culture Urine (09/13/2024 7:18 PM CDT) Color, ur Yellow Yellow Comment:Testing performed by : [address] [address] Clarity, ur Clear Clear JOSELYN Comment:Testing performed by : [address] [address] Specific gravity, ur 1.009 1.003 - 1.030 JOSELYN Comment:Testing performed by : [address] [address] pH, urine 6.5 JOSELYN Comment: Interpretive Data U rine pH is affected by diet, medications, systemic acid-base disturbances, and renal tubular function. pH may affect urinary stone formation. For example, urine pH below 6.0 may help reduce the tendency for calcium phosphate stones and pH greater than 6.0 may reduce the tendency for uric acid stone formation. Source: [employer] Current Interpretive Data was last revised on 2017 Testing performed by: [address] [address] Protein, ur ql Negative Negative JOSELYN Comment:Testing performed by : [address] [address] Glucose, ur ql Negative Negative JOSELYN Comment:Testing performed by : [address] [address] Ketones, ur Negative Negative JOSELYN Comment:Testing performed by : [address] [address] Bilirubin, ur Negative Negative JOSELYN Comment:Testing performed by : [address] [address] Blood, ur Negative Negative JOSELYN Comment:Testing performed by : [address] [address] Urobilinogen, ur <2.0 <2.0 mg/dL JOSELYN VAZQUEZ Comment:Testing performed by : [address] [address] Nitrite, ur Negative Negative JOSELYN VAZQUEZ Comment:Testing performed by : [facility], [address] [place] [address]., [address] Leukocyte esterase, ur Negative Negative JOSELYN VAZQUEZ Comment:Testing performed by : [address] [address] UA reflex comment Reflex conditions for microscopic UA and culture not met. JOSELYN VAZQUEZ Comment:Testing performed by : [address] [address] Urine 09/13/2024 7:18 PM CDT 09/13/2024 7:22 PM CDT Mario Mruray DO LAB MICROBIOLOGY - GENERAL ORD ERABLES Final Result Performing Organization Address [facility] Co de Phone Number JOSELYN [address] [place] [address] * POCT glucose (09/13/2024 7:10 PM CDT) [facility] Glucose, POC 104 70 - 199 mg/dL Comment:Testing performed by : [address] [address] Glucose comment 1 RN/MD Notified JOSELYN VAZQUEZ Comment:Testing performed by : [facility], [address] [place] [address]., [address] Blood 09/13/2024 7:10 PM CDT 09/13/2024 7:10 PM CDT us Notinfile Unknown LAB POCT ORDERABLES - DEVICE F inal Result Performing Organization Address [facility]/ZIP Co de Phone Number [address] [place] [address] * ECG 12 lead (09/13/2024 3:43 PM CDT) [facility] Ventricular Rate EKG/Min 103 BPM [facility] Atrial Rate 103 BPM [facility] [place]-Interval (MSEC) 128 ms [facility] QRS-Interval (MSEC) 88 ms [facility] QT-Interval (MSEC) 358 ms [facility] QTc 468 ms [facility] P [place] 54 degrees [facility] R [place] 55 degrees [facility] T [place] 38 degrees [facility] Diagnosis Sinus tachycardia Possible Left atrial enlargement RSR' or QR pattern in V1 suggests right ventricular conduction delay Nonspecific T wave abnormality Abnormal ECG No previous ECGs available Confirmed by YANDY LEON M.D. ([id number]) on 09/13/2024 8:06:17 PM [facility] 09/13/2024 3:43 PM CDT 09/13/2024 8:06 PM CDT Mario Murray DO ECG ORDERABLES Final Result Performing Organization Address [facility] de Phone Number [facility] * eGFR (09/13/2024 3:43 PM CDT) eGFR [...] was last reviewed 2021. Testing performed by: [facility], [address] [place] [address], [place]., [address] Blood 09/13/2024 3:43 PM CDT 09/13/2024 3:48 PM CDT us Mario Murray DO LAB BLOOD ORDERABLES Final Res ult Performing Organization Address City/[facility]/ZIP Co de Phone Number JOSELYN [address] [facility] Department [place] [address] * Differential, auto (09/13/2024 3:43 PM CDT) Neutrophil abs 2.62 1.50 - 6.50 K/cumm Comment:Testing performed by : [address] [address] Imm gran abs 0.02 0.00 - 0.10 K/cumm JOSELYN Comment:Testing performed by : [address] [address] Lymphocyte abs 2.86 0.80 - 3.30 K/cumm JOSELYN Comment:Testing performed by : [address] [address] Monocyte abs 0.58 0.20 - 0.80 K/cumm JOSELYN Comment:Testing performed by : [address] [address] Eosinophil abs 0.09 0.00 - 0.50 K/cumm JOSELYN Comment:Testing performed by : [address] [address] Basophil abs 0.05 0.00 - 0.10 K/cumm JOSELYN Comment:Testing performed by : [address] [address] Neutrophil pct 42.2 % JOSELYN Comment: Interpretive Data Percent cell count reference ranges are not reported, since discordance with absolute values may lead to misinterpretation of CBC data. Current Interpretive Data was last revised on 2017. Testing performed by: [address] [address] Imm gran pct 0.3 % JOSELYN Comment: Interpretive Data Percent cell count reference ranges are not reported, since discordance with absolute values may lead to misinterpretation of CBC data. Current Interpretive Data was last revised on 2017. Testing performed by: [address] [address] Lymphocyte pct 46.0 % JOSELYN Comment: Interpretive Data Percent cell count reference ranges are not reported, since discordance with absolute values may lead to misinterpretation of CBC data. Current Interpretive Data was last revised on 2017. Testing performed by: [address] [address] Monocyte pct 9.3 % JOSELYN Comment: Interpretive Data Percent cell count reference ranges are not reported, since discordance with absolute values may lead to misinterpretation of CBC data. Current Interpretive Data was last revised on 2017. Testing performed by: [address] [address] Eosinophil pct 1.4 % JOSELYN Comment: Interpretive Data Percent cell count reference ranges are not reported, since discordance with absolute values may lead to misinterpretation of CBC data. Current Interpretive Data was last revised on 2017. Testing performed by: [address] [address] Basophil pct 0.8 % JOSELYN Comment: Interpretive Data Percent cell count reference ranges are not reported, since discordance with absolute values may lead to misinterpretation of CBC data. Current Interpretive Data was last revised on 2017. Testing performed by: [address] [address] Blood 09/13/2024 3:43 PM CDT 09/13/2024 3:48 PM CDT us Mario Murray DO LAB BLOOD ORDERABLES Final Res ult [facility] [address] [facility] [place] [address] * (ABNORMAL) CBC with auto differential (09/13/2024 3:43 PM CDT) WBC 6.22 3.80 - 9.90 K/cumm Comment:Testing performed by : [address] [address] Hgb 12.6 11.9 - 15.5 g/dL JOSELYN Comment:Testing performed by : [address] [address] Hct 35.9 35.6 - 45.5 % JOSELYN VAZQUEZ Comment:Testing performed by : [address] [address] Plt 168 150 - 400 K/cumm JOSELYN Comment:Testing performed by : [address] [address] MPV 9.3 9.1 - 12.3 fL JOSELYN VAZQUEZ Comment:Testing performed by : [address] [address] RBC 4.00 3.90 - 5.20 M/cumm JOSELYN Comment:Testing performed by : [address] [address] MCV 89.8 81.3 - 96.4 fL JOSELYN Comment:Testing performed by : [address] [address] MCH 31.5 27.1 - 33.3 pg JOSELYN VAZQUEZ Comment:Testing performed by : [address] [address] MCHC 35.1 32.3 - 35.7 g/dL JOSELYN Comment:Testing performed by : [address] [address] RDW CV 15.3(H) 11.1 - 14.9 % JOSELYN Comment:Testing performed by : [address] [address] RDW SD 49.8(H) 35.7 - 48.1 fL JOSELYN Comment:Testing performed by : [address] [address] NRBC abs 0.00 0.00 - 0.01 K/cumm JOSELYN Comment:Testing performed by : [address] [address] Blood Venous blood specimen / Unknown 09/13/2024 3:43 PM CDT 09/13/2024 3:48 PM CDT us Mario Murray DO LAB BLOOD ORDERABLES Final Res ult JOSELYN VAZQUEZ [address] [facility] Department [place] [address] * hCG, blood, quantitative (09/13/2024 3:43 PM CDT) Pathologist [facility] hCG, quant <5.0 0.0 - 5.0 IUnits/L Comment: Interpretive Data Male: < 5 IU/L Non- premenopausal Female: <5 IU/L The [employer] hCG Beta Quant assay procedure was used. Results from different manufacturers or methods may not be comparable. Serial testing should be performed using the same method. Interpretive Data was last revised on 2023 Testing performed by: [address] [address] Blood 09/13/2024 3:43 PM CDT 09/13/2024 3:48 PM CDT ncyclo LAB BLOOD ORDERABLES Edited Re sult - Final Performing Organization Address City/[facility]/ZIP Co de Phone Number JOSELYN [address] [place] [address] * Uric acid (09/13/2024 3:43 PM CDT) [facility] Uric acid 5.0 2.5 - 7.0 mg/dL Comment:Testing performed by : [address] [address] Blood 09/13/2024 3:43 PM CDT 09/13/2024 3:48 PM CDT ncyclo LAB BLOOD ORDERABLES Final Res ult [address] [address] * Phosphorus (09/13/2024 3:43 PM CDT) Pathologist [facility] Phosphorus, pl 3.0 2.3 - 4.5 mg/dL Comment:Testing performed by : [address] [address] Blood 09/13/2024 3:43 PM CDT 09/13/2024 3:48 PM CDT Mario Murray DO LAB BLOOD ORDERABLES Final Res ult Performing Organization Address [facility] Co de Phone Number [address] [address] * Magnesium (09/13/2024 3:43 PM CDT) Pathologist [facility] Magnesium 1.8 1.4 - 2.5 mg/dL Comment:Testing performed by : [address] [address] Blood 09/13/2024 3:43 PM CDT 09/13/2024 3:48 PM CDT Spike Perales III, MD LAB BLOOD ORDERABLES F inal Result Performing Organization Address [facility] de Phone Number [address] [address] * Lipase (09/13/2024 3:43 PM CDT) [facility] Lipase 11 10 - 99 Units/L Comment:Testing performed by : [address] [address] Blood Venous blood specimen / Unknown 09/13/2024 3:43 PM CDT 09/13/2024 3:48 PM CDT Mario Murray DO LAB BLOOD ORDERABLES Final Res ult Performing Organization Address [facility] Co de Phone Number [address] [address] * Lactate dehydrogenase (LD) (09/13/2024 3:43 PM CDT) [facility] Lactate dehydrogenase (LDH) 216 100 - 250 Units/L Comment:Testing performed by : [address] [address] Blood 09/13/2024 3:43 PM CDT 09/13/2024 3:48 PM CDT Mario Murray DO LAB BLOOD ORDERABLES Final Res ult JOSELYN [address] [facility] [place] [address] * (ABNORMAL) Comprehensive metabolic panel (09/13/2024 3:43 PM CDT) Sodium 143 135 - 145 mmol/L Comment:Testing performed by : [address] [address] Potassium, pl 2.7(L) 3.3 - 4.9 mmol/L JOSELYN Comment:Testing performed by : [address] [address] Chloride 99 97 - 110 mmol/L JOSELYN Comment:Testing performed by : [address] [address] CO2 28 22 - 32 mmol/L JOSELYN Comment:Testing performed by : [address] [address] Anion gap 16(H) 2 - 15 mmol/L JOSELYN Comment:Testing performed by : [address] [address] BUN 5(L) 6 - 25 mg/dL JOSELYN Comment:Testing performed by : [address] [address] Creatinine 0.60 0.60 - 1.10 mg/dL JOSELYN Comment:Testing performed by : [address] [address] Glucose 69(L) 70 - 199 mg/dL JOSELYN [...] was last revised 2022. Testing performed by: [address] [address] Calcium 9.2 8.5 - 10.3 mg/dL JOSELYN Comment:Testing performed by : [address] [address] Bilirubin, total 0.5 0.1 - 1.2 mg/dL JOSELYN Comment:Testing performed by : [address] [address] Protein, pl 6.4(L) 6.5 - 8.5 g/dL JOSELYN Comment:Testing performed by : [address] [address] Albumin 4.2 3.5 - 5.0 g/dL JOSELYN Comment:Testing performed by : [address] [address] Alk phos 155(H) 40 - 130 Units/L JOSELYN Comment:Testing performed by : [address] [address] ALT 6(L) 7 - 45 Units/L JOSELYN Comment:Testing performed by : [address] [address] AST 15 10 - 45 Units/L JOSELYN Comment:Testing performed by : [address] [address] Blood 09/13/2024 3:43 PM CDT 09/13/2024 3:48 PM CDT us Mario Murray DO LAB BLOOD ORDERABLES Final Res ult JOSELYN VAZQUEZ [address] [facility] [place] [address] from Last 3 Months Insurance [facility] Care Teams Curling 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 Relationship Specialty Start Date End Date Richard Fish NP [address] [place] [address] [place] [address] PCP - General Nurse Practitioner 02/13/24
--- OUTSIDE RECORDS SUMMARY | 2024-09-15 20:56 | XMS_ITS | Encounter Summary ---
Author Organization [facility] Healthcare Address [address] [place] [address] Care Team Providers Care Plan Manager Name Role Phone Richard Fish TRASH COLLECTOR TRUCK DRIVER Primary Care Provider Encounter Details Date Type Department Care Team (Late st Contact Info) Description 09/15/2024 9:45 AM CDT Hospital Encounter [facility] [place] [address] Arrived Social History Tobacco Use Types Packs/Day [...] Outside Reference (09/15/2024 9:45 AM CDT) Impressions [facility] 09/15/2024 9:45 AM CDT These images are for Reference purposes only and have not been reviewed by [facility] Radiology. There will be no report generated by a [facility] Radiologist. Narrative RAD_PACS_[facility] - 09/15/2024 9:45 AM CDT EXAMINATION: Images For Reference Purposes Only us Ramy Aguilera MD IMG PET PROCEDURES Final Res ult [facility] documented in this encounter Visit Diagnoses Not on filedocumented in this encounter Care Teams Plan Manager Relationship Specialty Start Date End Date Richard Fish NP [address] [place] [address] [place] [address] PCP - General Nurse Practitioner 02/13/24 documented as of this encounter
--- OUTSIDE RECORDS SUMMARY | 2024-09-15 20:56 | XMS_ITS | Clinical Summary ---
Author Organization [facility] Address [address] [place] [address] Care Team Providers Care Cane Weigher Name Role Phone Unavailable Primary Care Provider [...] Pain, Mild. Active naloxone (NARCAN) 4 mg/spray [place], Non-Aerosol EMERGENCY USE ONLY: Administer 1 spray [...] Data STL ABSTRACTION Provider, Abstract 08/17/2024 Telephone [facility] Oncology and Hematology - [place] [address] [place] [address] Dr [address] [place] [phone] Marv Hernandes MD Re-establishing care from [...] Comments Blood Pressure 109/66 04/17/2023 8:40 AM DIRECTOR OF BROADCAST Pulse 111 04/17/2023 8:40 AM DIRECTOR OF BROADCAST Temperature 36.6 C (97.9 F) 04/17/2023 8:40 AM DIRECTOR OF BROADCAST Respiratory Rate 10 04/17/2023 8:40 AM DIRECTOR OF BROADCAST Oxygen Saturation 92% 03/27/2023 11:06 AM DIRECTOR OF BROADCAST Inhaled Oxygen Concentration - - Weight 51.3 kg (113 lb) 04/17/2023 8:40 AM DIRECTOR OF BROADCAST Height 162.6 cm (5' 4) 03/24/2023 6:27 PM DIRECTOR OF BROADCAST Body Mass Index 19.4 03/24/2023 6:27 PM DIRECTOR OF BROADCAST Plan of Treatment Health Maintenance Due Date [...] Advance Directives For more information, please contact: [phone] * Full Code (Latest Code Status on File) Date Activated Date Inactivated Comments 03/25/2023 1:09 AM 03/26/2023 3:29 PM
--- OUTSIDE RECORDS SUMMARY | 2024-09-15 20:56 | XMS_ITS | Encounter Summary ---
Author Organization [facility] Address [address] [facility] [place] [address] Care Team Providers Care Yard Clerk Name Role Phone Unavailable Primary Care Provider Unavailabl e Encounter Details Date Type Department Care Team (Late st Contact Info) Description 12/18/2022 Lab Requisition [facility] - Pathology Lab [address] [place] [address] Ishan Escobedo MD [address] [facility] [address] [place] [phone] Generalized enlarged lymph nodes Social History [...] AM CDT) Case Report Flow Cytometry Case: [id number] Authorizing Provider: Ishan Escobedo MD Collected: 12/18/2022 09:00 AM Ordering Location: [facility] Care Pathology Lab Received: 12/18/2022 03:11 PM Pathologist: Giovanni Chow MD Specimen: Axillary Lymph Node, RIGHT 12/18/2022 5:15 PM CDT [facility] Final Diagnosis Axillary lymph node, flow cytometry: - [place] light chain restricted CD10+ B-cell population detected (~99% of overall events) 12/18/2022 5:15 PM CDT [facility] at 1714 CDT Flow Cytometry Interpretation Viability: 87%. B-cells: monoclonal, kappa-restricted, expressing CD19, CD20, and CD10. T-cells: not increased, no immunophenotypic aberrancy. A cytospin prepared from the flow cytometry specimen has been reviewed for quality analyst purposes. 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 Histologic slides are pending for final subclassification. 12/18/2022 5:[address] [facility] Flow Cytometry Results Differential Result Comment Flow Cell Count /uL 9,000 Total Viability % 87.0 Lymphocytes % 99 Dim CD45 Region % 0 Monocytes % 0 Granulocytes % 1 12/18/2022 5:[address] [facility] Reason for test Generalized enlarged lymph nodes 785.6 12/18/2022 5:[address] [facility] Client Specimen ID # [id number] 12/18/2022 5:[address] [facility] Number of markers 16 were performed. A-2 Flow CD3 A-4 Flow CD10 A-6 Flow CD20 A-7 Flow CD23 A-12 Flow CD2 A-13 Flow CD4 A-16 Flow CD1a A-3 Flow CD5 A-5 Flow CD19 A-8 Flow CD34 A-9 Flow CD45 A-14 Flow CD7 A-15 Flow CD8 A-17 Flow CD30 A-10 [place]+CD19+ A-11 Lambda+CD19+ 12/18/2022 5:[address] [facility] Pathologist Location at [facility] 12/18/2022 5:[address] [facility] Disclaimer Test performed at [facility], [address] [place] [address], [address]. *The established laboratory minimum viability is 70%. [...] PATHOLOGY LAB Embedded Images 5:15 PM CDT [facility] Pathology/Cytolo gy AXILLARY LYMPH NODE STRUCTURE / Unknown 12/18/2022 9:00 AM CDT 12/18/2022 3:11 PM CDT us Ishna Escobedo MD LAB - PATHOLOGY/CYTOLOGY ORDERAB LES Final Result [facility] [address] [phone] documented in this encounter Visit Diagnoses Diagnosis Generalized enlarged lymph nodes Enlargement of lymph nodes documented in this encounter
--- OUTSIDE RECORDS SUMMARY | 2024-09-15 20:56 | XMS_ITS | Encounter Summary ---
Author Organization [facility] Healthcare Address [address] [place] [address] Care Team Providers Care Employee Development Manager Name Role Phone Richard Fish SUPPORT REPRESENTATIVE Primary Care Provider Encounter Details Date Type Department Care Team (Late st Contact Info) Description 09/15/2024 9:47 AM CDT Hospital Encounter [facility]) [facility] [place] [address] Arrived Social History Tobacco Use Types Packs/Day [...] and have not been reviewed by [facility] Radiology. There will be no report generated by a [facility] Radiologist. Narrative RAD_PACS_[facility] - 09/15/2024 9:47 AM CDT EXAMINATION: Images For Reference Purposes Only us Ramy Aguilera MD IMG CT PROCEDURES Final Resu lt [facility] documented in this encounter Visit Diagnoses Not on filedocumented in this encounter Care Teams Employee Development Manager Relationship Specialty Start Date End Date Richard Fish NP [address] [place] [address] [place] [address] PCP - General Nurse Practitioner 02/13/24 documented as of this encounter
--- OUTSIDE RECORDS SUMMARY | 2024-09-15 20:56 | XMS_ITS | Encounter Summary ---
Author Organization [facility] Healthcare Address [address] [place] [address] Care Team Providers Care Hospital Laboratory Technician Name Role Phone Richard Fish BLOCK PILER Primary Care Provider Encounter Details Date Type Department Care Team (Late st Contact Info) Description 09/15/2024 9:46 AM CDT Hospital Encounter [facility]) [facility] [place] [address] Arrived Social History Tobacco Use Types Packs/Day [...] Outside Reference (09/15/2024 9:46 AM CDT) Impressions RAD[facility]PACS_[facility] - 09/15/2024 9:46 AM CDT These images are for Reference purposes only and have not been reviewed by [facility] Radiology. There will be no report generated by a [facility] Radiologist. Narrative RAD_PACS_[facility] - 09/15/2024 9:46 AM CDT EXAMINATION: Images For Reference Purposes Only us Ramy Aguilera MD IMG PET PROCEDURES Final Res ult [facility] documented in this encounter Visit Diagnoses Not on filedocumented in this encounter Care Teams Hospital Laboratory Technician Relationship Specialty Start Date End Date Richard Fish NP [address] [place] [address] [place] [address] PCP - General Nurse Practitioner 02/13/24 documented as of this encounter
--- OUTSIDE RECORDS SUMMARY | 2024-09-15 20:56 | XMS_ITS | Encounter Summary ---
Author Organization [facility] Address [address] [facility] [place] [address] Care Team Providers Care Supervisor Keymodule Assembly Name Role Phone Unavailable Primary Care Provider Unavailabl e Encounter Details Date Type Department Care Team (Late st Contact Info) Description 12/19/2022 Lab Requisition [facility] - Pathology Lab [address] [place] [address] Ishan Escobedo MD [address] [address] Illness, unspecified Social History Tobacco [...] CDT) Case Report Surgical Pathology Report Case: [id number] Authorizing Provider: Ishan Escobedo MD Collected: 12/18/2022 09:00 AM Ordering Location: [facility] Care Pathology Lab Received: 12/19/2022 01:25 [...] CD10 co-expression. Axillary lymph node, flow cytometry ([id number]): - [place] light chain restricted CD10+ B-cell population detected (~99% of overall events) Also received from [facility] is a peripheral smear showing circulating follicular lymphoma cells with occasional nuclear clefts. The peripheral blood is involved by follicular lymphoma. 12/19/2022 3:33 PM CDT [facility] PATHOLOGY LAB Clinical History Suspect lymphoma. 12/19/2022 3:33 PM [facility] PATHOLOGY LAB Materials Received Received are 4 slide(s) and 1 block labeled [id number] along with a copy of the outside pathology report. The materials originate from [facility], [address] [place] [address]. All original materials are returned to the referring institution, along with a copy of our final report. 12/19/2022 3:33 PM T [facility] PATHOLOGY LAB Pathologist Location at [facility] 12/19/2022 3:33 PM T [facility] PATHOLOGY LAB Disclaimer The performance characteristics of all immunohistochemical and indirect immunofluorescence stains (if any) cited in this report were determined by the Histopathology Laboratory of [facility]. Some of these tests were developed [...] attending (teaching) pathologist. 12/19/2022 3:33 PM T [facility] PATHOLOGY LAB Embedded Images 12/19/2022 3:33 PM T [facility] PATHOLOGY LAB Pathology/Cytolo gy BIOPSY OF LYMPH NODE / Unknown 12/18/2022 9:00 AM CDT 12/19/2022 1:25 PM CDT us Ishan Escobedo MD LAB - PATHOLOGY/CYTOLOGY ORDERAB LES Final Result [facility] PATHOLOGY LAB [address] [facility] [phone] documented in this encounter Visit Diagnoses Diagnosis Illness, unspecified documented in this encounter
--- OUTSIDE RECORDS SUMMARY | 2024-09-15 20:56 | XMS_ITS ---
Author Organization [facility] Address [address] [place] [address] Phone Care Team Providers Care Planning Management It Specialist Name Role Phone Gabriel Salmeron MD Unavailable Brooks Sosa MD Unavailable [phone] Provider, None Primary Care Provider UnavailKervin Rubi [...] current use Anxiety 05/07/2023 Under care of penitentiary service 05/07/2023 Overview (05/07/2023): Two previous stays at penitentiary Child living with her parents Current Treatment [...] 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 Hx of penitentiary time
--- OUTSIDE RECORDS SUMMARY | 2024-09-15 20:56 | XMS_ITS | Clinical Summary ---
Author Organization [facility] Address [address] [place] [address] Phone Care Team Providers Care Homeworker Name Role Phone Gabriel Salmeron MD Unavailable [...] Care Team Description 08/06/2024 Telephone [facility] Oncology Services [address] [place] [address] Gabriel Salmeron MD 06/17/2024 11:40 AM CDT - 06/17/2024 12:40 PM CDT [facility] [address] [place] [address] Kervin Jiang MD REMOVAL OF PORT, LEFT SIDE 06/17/2024 11:39 AM CDT [facility]est[facility] [address] [place] [address] Roland Martinez MD [place], Kevin L, HOSPITAL FOOD SERVICE WORKER, DATA ENTRY OPERATOR 06/17/2024 8:59 AM CDT - 06/17/2024 1:15 PM CDT [facility] Preop[facility]Pac[facility] [address] [place] [address] Kervin Jiang MD Discharge Disposition: Discharged to home or Selfcare 06/17/2024 Telephone [facility] [address] [address] Kervin Jiang MD Medication Management 06/15/2024 Travel [...] week 05/07/2023 How often do you attend evangelical or voodoo serv ices? Never 05/07/2023 Do you belong to any clubs o r organizations such as evangelical groups, unions, fraternal or athletic groups, or [...] Total Score - Questions 1-9 9 06/06 [facility] - Occupational Stress [...] Sex Assigned at Female 05/21/2023 11:44 AM STOCK WETTER Legal Sex Female 5:17 PM CDT Gender Identity Female 05/21/2023 11:44 AM STOCK WETTER Sexual Orientation Not on file Last Filed [...] change(07/29 4:12 PM CDT) Yes Janette Tom, MERCHANDISING ASSISTANT Note: Goal/Objective: Improve insight and understanding of behaviors and feelings. Anticipated Time Frame for Goal Completion: 6 months Goal Reviewed with: patient Readiness to change: Ready to change Department associated with goal: [facility] Steps to achieve goal: [...] PATHOLOGY SURGICAL Routine 06/17/2024 11:55 AM CDT [facility] VAD W/SUBQ PORT/AUTOMATIC SPINNING LATHE OPERATOR CTR/PRPH INSJ 06/17/2024 11:17 AM CDT ENCOUNTER FOR REMOVAL OF TUNNELED CENTRAL VENOUS CATHETER Special Needs Allergy: Allopurinol, Azithromycin, Codeine, Pecan Extract, Benadryl Hx: Drug & Alcohol abuse 5 3.5 119# POCT URINE HCG () Routine 06/17/2024 9:38 AM CDT from Last 3 Months Results * Pathology Surgical (06/17/2024 11:55 AM CDT) Case Report Surgical Pathology Report Case: [id number] Authorizing Provider: Kervin Jiang, Collected: 06/17/2024 11:55 AM Ordering Location: [facility] Received: 06/18/2024 09:02 AM [facility] Main OR Pathologist: Ishan Escobedo MD Specimen: Foreign Body, PORT FROM LEFT CHEST 06/18/2024 2:46 PM CDT [facility] FINAL DIAGNOSIS Foreign body, port from left chest, removal: - As described grossly. 06/18/2024 2:46 PM CDT [facility] at 1446 CDT Pre-Operative Diagnosis ENCOUNTER FOR REMOVAL OF TUNNELED CENTRAL VENOUS CATHETER 06/18/2024 2:46 PM CDT [facility] Gross Description A. PORT FROM [...] dictation only. KS/sb 06/18/2024 2:46 PM CDT [facility] Other FOREIGN BODY SUBMITTED SPECIMEN / Unknown 06/17/2024 11:55 AM CDT 06/18/2024 9:02 AM CDT Kervin Jiang MD PATHOLOGY/CYTOLOGY OR DERABLES Final Result [facility] [address] [facility] [place] [address] * POCT Urine HCG () (06/17/2024 9:38 AM CDT) POC URINE Negative POC URINE CONTROL A Class Lineman Pass Urine 06/17/2024 9:38 AM CDT Kevrin Jiang MD POINT OF CARE TESTING (MANUAL) Final Result from Last 3 Months Insurance MEDICAID [facility] Care Teams Homeworker Relationship Specialty Start Date End Date Provider, None [place] PCP - General 06/17/24 Gabriel Salmeron MD [address] [place] [address] Consulting Physician Medical Oncology 05/23/23 Brooks Sosa MD [address] [place] [address] Consulting Physician Neurology 01/22/24 Kervin Jiang MD [address] [phone] Consulting Physician General Surgery 06/11/24
--- OUTSIDE RECORDS SUMMARY | 2024-09-15 20:56 | XMS_ITS | Encounter Summary ---
Author Organization [facility] Address [address] [place] [address] Phone Care Team Providers Care Crematory Operator Name Role Phone Richard Fish NP Primary Care Provider Encounter Details Date Type Department Care Team (Late st Contact Info) Description 09/14/2024 Orders Only [facility] Oncology [address] [place] [address] [address] [place] [address] Ramy Agiulera MD [address] [place], [place] [id number] Lymphoma of lymph nodes (HCC) (Primary Dx) [...] Primary documented in this encounter Care Teams Crematory Operator Relationship Specialty Start Date End Date Richard Fish NP [address] [place] [address] PCP - General Nurse Practitioner 02/13/24 documented as of this encounter
--- NOTE | 2024-09-15 21:06 | PC.NURSE ---
pt at nurses station speaking to salome plunkett. pt verbalized leaving without results. Pt seen ambulatory to exit with steady gait. no distress noted.
[2024-09-15 21:13] LABS: Pregnancy On Board Control Positive; Urine Pregnancy Test Negative
[2024-09-15 21:18] LABS: Add Urine Microscopic? YES; Appearance Urine Clear (Clear); Bacteria Urine None Seen /hpf; Bilirubin Urine Negative (Negative); Blood Urine 1+ (Negative); Color Urine Yellow (Yellow); Glucose Urine UA Negative (Negative); Ketones Urine Negative (Negative); Leukocyte Esterase Ur Negative LEU/UL (Negative); Nitrate Urine Negative (Negative); Non Pathogenic Casts 0-2; Protein Urine Negative (Negative); RBC Urine 0-2 /hpf (0-2); Specific Grav Ur 1.008 (1.001-1.035); Squamous Epithelial Cell Urine None Seen /hpf (Few); WBC Urine 0-5 /hpf (0-3); pH Urine 7.5 (5.0-9.0)
== END 2024-09-15 21:07 | disposition left against medical advice (07) ==
PROVIDERS: Emergency Provider Registered Nurse
DX: N93.9 Abnormal uterine and vaginal bleeding, unspecified (principal); C85.90 Non-Hodgkin lymphoma, unspecified, unspecified site; F31.9 Bipolar disorder, unspecified; F41.9 Anxiety disorder, unspecified; F17.210 Nicotine dependence, cigarettes, uncomplicated; Z86.14 Personal history of Methicillin resistant Staphylococcus aureus infection; Z90.79 Acquired absence of other genital organ(s); Z79.899 Other long term (current) drug therapy
CPT/HCPCS: 81001; 81025; 99283

== ENCOUNTER 2024-10-10 20:50 | Emergency (ER) | payer OTHER, SELFPAY ==
[2024-10-10] VITALS (7 sets, daily range): BP systolic 100–124; BP diastolic 65–101; PULSE 70–83; RESP 15–16; TEMP 36.4; O2SAT 94–99
--- OUTSIDE RECORDS SUMMARY | 2024-10-10 20:53 | XMS_ITS | Patient Health Record ---
Author Organization [facility] Address [address] [place] [address] Care Team Providers Care Wrapper Leaf Inspector Name Role Phone JohnniefloydnilaRichard Primary Care Provider [phone] Satya Fernandez Unavailable [phone] Mandi Love Unavailable [phone] Evie Epps Unavailable [phone] Minerva Peacock Unavailable [phone] Allergies Allergen (clinical drug ingredient) Drug/Non Drug [...] PERINEUM Diagnosis 1 Abscess (L02.91) Referral Organization [facility] Referring Provider First Name Satya Referring Provider Last Name Rebecca Referring Provider Speciality Internal edicine Referred Provider Specialty Surgery General Notes GUERO Song Valeri e A 02/13/2024 09:35:39 AM > Referral to [facility] Colon and Rectal Surgery. Letter to pt., Neda JACK, Beena Beltran 09/17/2024 09:26:55 AM > Letter present in patient documentation that stated they attempted to contact client three times to schedule appointment and was unable to reach her so the referral was closed out. Client contacted and she reports she saw someone at [facility] yesterday she was unable to specify whom Referral closed Clinical Notes [facility] Colon and Rectal Surgery, [address] [facility], Phone#[phone], Referral Priority Routine Reason IMPACTED MOLAR AND S EVERE CARIES RIGHT LOWER JAW THAT DENTIST DECLINED TO TREAT Diagnosis 1 Dental caries (K02.9 ) Referral Organization [facility] Referring Provider First Name Satya Referring Provider Last Name Rebecca Referring Provider Speciality Internal edicine Referred Provider Specialty Dental Gener al Practice General Notes GUERO Song Valeri e A 02/13/2024 09:57:12 AM > Referral to [facility] Dentistry. Letter to pt., Neda RN, Beena Beltran 09/17/2024 09:07:05 AM >Client reports she did see Dentist and her needs were met Clinical Notes REPLACED BY [facility] Adult [facility], [address], [facility] [address], , Referral Priority Routine Reason anxiety, shanna Diagnosis 1 Opioid use disorder (F11.99) Referral Organization [facility] Referring Provider First Name Minerva Referring [...] to three times a day 08/19/2024 Active Sertraline HCl 50 MG 1 tablet Orally Onc e a day; Duration: 30 day(s) Active oxyCODONE HCl 5 MG 1 tablet as needed Orally every 6 hrs; Duration: 15 days PAIN 10/01/2024 Active clonazePAM 0.5 MG 1 tablet Orally twic e a day; Duration: 30 days 10/01/2024 Active Social History Tobacco Use: Social History [...] phone, visiting friends or family, going to restorationism or club meetings) More than 5 times a week How stressed are you? Stress is when someone feels tense, nervous, anxious, or can\t sleep at night because their mind is troubled A little bit In the past year have you sp ent more than 2 nights in a row in a prison, nursing home, [facility]cc center, or juvenile correctional facility? Yes What [...] W/U Status Risk Notes Problem Tobacco user (383681310) Nicotine dependence, unspecified, uncomplicated (F17.200) Active confirmed Problem Anxiety (32119632) Anxiety (F41.9) Active confirmed Problem Exacerbation of asthma (767350851) Asthma exacerbation (J45.901) Active confirmed Problem Mild intermittent asthma (544578113) Mild intermittent asthma without complication (J45.20) Active confirmed Problem Tobacco use (640563771) Tobacco use disorder (F17.200) Active confirmed Problem Lymphoma involves multiple lymph node regions (finding) (919609733) Lymphoma of lymph nodes of multiple regions, 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) Active confirmed Problem Opioid use disorder (6069458145) Opioid use disorder (F11.99) Active confirmed Vital Signs Heart Rate 112 /min 10/01/2024 Temperature 98.2 degrees Fahrenheit 10/01/2024 Respiratory Rate 20 /min 10/01/2024 Blood pressure diastolic 74 mm Hg 10/01/2024 Oximetry 98 % 10/01/2024 Height 62 in 10/01/2024 Blood pressure systolic 120 mm Hg 10/01/2024 Weight 120.2 lbs 10/01/2024 BMI 21.98 kg/m2 10/01/2024 Encounters Encounter Location Date Provider Diagnosis [address] [place] [address] 12/19/2023 Jenia Abe Opioid use disorder F11.99 and Nicotine dependence, unspecified, uncomplicated F17.200 [place] [address] [place] [address] 01/01/2024 Jenia Heericka Opioid use disorder F11.99 and Nicotine dependence, unspecified, uncomplicated F17.200 [address] [facility] [place] [place] [address] 01/02/2024 Satya Fernandez Abscess L02.91 ; Dental caries K02.9 ; Lymphoma of lymph nodes of multiple regions, unspecified lymphoma type C85.98 ; Opioid use disorder F11.99 and Nicotine dependence, unspecified, uncomplicated F17.200 [address] [place] [place] [address] 01/16/2024 Satya Fernandez Asthma exacerbation J45.901 ; Mild intermittent asthma without complication J45.20 and Nicotine dependence, unspecified, uncomplicated F17.200 [address] [place] [address] 01/29/2024 Jenia Heericka Opioid use disorder F11.99 and Tobacco use disorder F17.[address] [place] [address] 05/13/2024 Minerva Peacock Patient underweight R63.6 ; Opioid use disorder F11.99 ; Non-tobacco user Z78.9 and Nutritional counseling Z71.3 [address] [address] [place] [address] 05/27/2024 Richard Fish Opioid use disorder F11.99 and Nicotine dependence, unspecified, uncomplicated F17.200 [address] [address] [place] [address] 07/08/2024 Richard Fish Opioid use disorder F11.99 and Nicotine dependence, unspecified, uncomplicated F17.200 [address] [place] [place] [address] 08/19/2024 Richard Fish Opioid use disorder F11.99 and Tobacco use disorder F17.200 [address] [address] [place] [address] 10/01/2024 Satya Fernandez Opioid use disorder F11.99 ; Lymphoma of lymph nodes of multiple regions, unspecified lymphoma type C85.98 ; Tobacco use disorder F17.200 and Anxiety F41.9 [address] [address] [place] [place] [address] 09/24/2024 Richard Fish [address] [place] [address] 09/27/2024 Richard Fish Assessments Encounter Date Diagnosis (ICD Code) Assessment Notes Treatment Notes Treatment Clinical Notes Section Notes 10/01/2024 Opioid use disorder (ICD-10 - F11.99) 10/01/2024 Lymphoma of lymph nodes of multiple regions, unspecified lymphoma type (ICD-10 - C85.98) F/U WITH WASH U FOR TREATMENT 05/13/2024 Opioid use disorder (ICD-10 - F11.99) 05/27/2024 Nicotine dependence, unspecified, uncomplicated (ICD-10 - F17.200) 05/27/2024 Opioid use disorder (ICD-10 - F11.99) 07/08/2024 Opioid use disorder (ICD-10 - F11.99) 08/19/2024 Tobacco use disorder (ICD-10 - F17.200) 08/19/2024 Opioid use disorder (ICD-10 - F11.99) 12/19/2023 [...] 05/13/2024 Patient underweight (ICD-10 - R63.6) 05/13/2024 Non-tobacco user (ICD-10 - Z78.9) 01/16/2024 Nicotine dependence, unspecified, uncomplicated (ICD-10 - F17.200) 01/02/2024 Lymphoma of lymph nodes of multiple regions, unspecified lymphoma type (ICD-10 - C85.98) 01/01/2024 Nicotine dependence, unspecified, uncomplicated (ICD-10 - F17.200) 07/08/2024 Nicotine dependence, unspecified, uncomplicated (ICD-10 - F17.200) 10/01/2024 Tobacco use disorder (ICD-10 - F17.200) 10/01/2024 Anxiety (ICD-10 - F41.9) 01/02/2024 Opioid use disorder (ICD-10 - F11.99) [...] self-administe r their own oral medications per [place] Protocol. 07/08/2024 Other Patient agrees to take medication as prescribed. Discussed medication side effects, adverse effects, risks, benefits, as well as interactions. Encouraged non-use of opioids. Has naloxone. Recommended participation in recovery groups and/or counseling services. May contact office with questions or concerns. Patient may self-administe r their own medications or may self-administe r their own oral medications per [facility] Protocol. 08/19/2024 Other Discussed medication side effects, adverse effects, risks, benefits, as well as interactions. Encouraged non-use of opioids. Has naloxone. Recommended participation in recovery groups and/or counseling services. May contact office with questions or concerns. Patient may self-administe r their own medications or may self-administe r their own oral medications per [facility] Protocol. Plan Of Treatment No Information Insurance Providers Payer Name Payer Address Payer Phone Subscriber Number Group Number Insured Name Patient Relationship to Insured Coverage Start Date Coverage End Date [employer] [facility] [address] [place] [address] [id number] Soha Marrero Self - patient is the insured 2 Medical (General) History Medical History History ICD Code Bipolar 1 Disorder Alcohol Use Disorder Lymphoma Surgical History Surgery Date(Month/Year) Ectopic Open Chest Surgery Chemo Port 2022 Hospitalization History Reason Date(Month/Year) [place]ett[place] x2
--- OUTSIDE RECORDS SUMMARY | 2024-10-10 20:53 | XMS_ITS | Clinical Summary ---
Author Organization [facility] Address [address] [place] [address] Care Team Providers Care Associate Professor Of Medicine Name Role Phone None, Provider MD Primary [...] through pain 12 tablet 12/05/19 24 Active Encounters Date Type Department Care Team Description 09/18/2024 7:36 AM CDT - 09/18/2024 11:59 PM CDT Hospital Encounter [facility] [place] [address] Non-Staff, Provider Discharge Disposition: Home or Self Care (Routine Discharge) from Last 3 Months Social History Tobacco Use Types Packs/Day Years Used Date Smoking Tobacco: Every Day Cigarettes 1 13.5 Started: 2011 Passive Smoke Exposure: Current Tobacco Cessation:Ready to Q uit: Not Asked; Counseling Given: Not Answered Alcohol Use Standard Drinks/Week Comments Yes 4 (1 standard drink = 0.6 oz pure alcohol) patient states she takes shots of fireball to help with pain when she gets desperate. 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
--- OUTSIDE RECORDS SUMMARY | 2024-10-10 20:53 | XMS_ITS | Encounter Summary ---
Author Organization [facility] Healthcare Address [address] [place] [address] Care Team Providers Care Political Consultant Name Role Phone Richard Fish NP Primary Care Provider Ramy Aguilera MD Unavailable [phone] Encounter Details Date Type Department Care Team (Late st Contact Info) Description 09/21/2024 Hospital Encounter [facility] ADMIT [address] [place] [address] Ramy Aguilera MD [address] [place] [address] Social History Tobacco Use Types Packs/Day Years Used Date Smoking Tobacco: Every Day Cigarettes Passive Smoke Exposure: Current AUDIT-C Answer Date Recorded Q1: How often do you have a drink containing alc ohol? 2-4 times a month 09/30/2024 Q2: How many drinks containi ng alcohol do you have on a typical day when you are drinking? 1 or 2 09/30/2024 Q3: How often do you have si x or more drinks on one occasion? Weekly 09/30/2024 Personal Safety Answer Date Recorded Have you ever been in or are you currently in a harmful physical or emotional relationship or is someone making you feel afraid or unsafe? Denies 09/21/2024 Comments No Sex and Gender Information Value Date Recorded Sex Assigned at Not on file Legal Sex Female 6:50 AM CDT Gender Identity Not on file Sexual Orientation Not on file documented as of this encounter Functional Status documented as of this encounter Plan of Treatment Not on file documented as of this encounter Visit Diagnoses Not on filedocumented in this encounter Care Teams Political Consultant Relationship Specialty Start Date End Date Richard Fish NP [address] [place] [address] PCP - General Nurse Practitioner 02/13/24 Ramy Aguilera MD [address] [place] [address] Medical Oncologist/Business Services Sales Agent Internal Medicine 09/23/24 documented as of this encounter
--- OUTSIDE RECORDS SUMMARY | 2024-10-10 20:53 | XMS_ITS | Clinical Summary ---
Author Organization [place] [id number] [facility] Address [address] [place] [address] Care Team Providers Care Social Work Lecturer Name Role Phone Richard Fish NP Primary Care Provider Ramy Aguilera MD Unavailable [phone] Allergies Active Allergy Reactions Criticality Noted Date Comments Azithromycin Vomiting Low 04/07/2022 Codeine Nausea only Low 09/21/2024 Diphenhydramine Muscle pain,Other (S ee comments),Unknown Medium 06/13/2023 Idiopathic reaction--hyperactivit y Restless leg Idiopathic reaction--hyperactivit y Restless leg Obinutuzumab Shortness of breath,Diarrhea,Stomach upset,Chest tightness,Nausea & Vomiting High 10/07/2024 Rituximab Other (See comments) High 09/21/2024 Pt reports my lips turned blue and I stopped breathing Medications buprenorphine-na loxone (SUBOXONE) 8-[address] 1 Film under the tongue daily 2 Film 024 Active acetaminophen (TYLENOL) 650 mg suppository Insert 1 suppository (650 mg total) into the rectum every 4 (four) hours as needed for pain Active ibuprofen (ADVIL,MOTRIN) 400 mg tablet Take 1 tablet (400 mg total) by mouth every 6 (six) hours as needed for pain Active sertraline (ZOLOFT) 50 mg tablet Take 1 tablet (50 mg total) by mouth daily 30 tablet 025 Active clonazePAM (KlonoPIN) 0.25 mg disintegrating tabletIndication s:Panic Disorder Take 1 tablet (0.25 mg total) by mouth 2 (two) times a day 60 tablet 025 10/24 Active oxyCODONE (ROXICODONE) 5 mg immediate release tabletIndication s:Pain Take 1 tablet (5 mg total) by mouth every 6 (six) hours as needed for pain 28 tablet 025 Active naloxone (NARCAN) 4 mg/actuation spray,non-aeroso l Administer 1 spray into affected nostril(s) as needed for opioid reversal Call 911. Administer a single spray in one nostril. Repeat every 3 minutes as needed if no or minimal response. 1 each 025 Active acetaminophen (TYLENOL) 500 mg tablet Take 1 tablet (500 mg total) by mouth every 6 (six) hours as needed for pain Active omeprazole OTC (PriLOSEC OTC) 20 mg EC tablet Take 1 tablet (20 mg total) by mouth daily 30 tablet 2 025 03/29 Active allopurinoL (ZYLOPRIM) 300 mg tabletIndication s:Follicular lymphoma, unspecified follicular lymphoma type, unspecified body region (HCC) Take 1 tablet (300 mg total) by mouth daily for 10 days Start 48 hours prior to starting treatment. 10 tablet 025 10/16 Active ondansetron ODT (ZOFRAN-ODT) 4 mg disintegrating tablet Take 2 tablets (8 mg total) by mouth every 8 (eight) hours as needed for nausea or vomiting 20 tablet 1 025 Active predniSONE (DELTASONE) 50 mg tabletIndication s:Follicular lymphoma, unspecified follicular lymphoma type, unspecified body region (HCC) Take 1 tablet (50 mg) by mouth daily Take on days 2-6 of each treatment cycle. 5 tablet 025 Active ketorolac (TORADOL) 10 mg tablet Take 1 tablet (10 mg total) by mouth every 6 (six) hours as needed for pain 20 tablet 023 09/16 Discontinued lidocaine viscous (XYLOCAINE) 2 % solution Apply 5 mL topically every 3 (three) hours 100 mL 023 09/16 Discontinued traMADoL (ULTRAM) 50 mg tablet Take 1 tablet (50 mg total) by mouth every 6 (six) hours as needed for pain 15 tablet 025 09/16 Discontinued potassium & sodium phosphates 305-700 mg tablet 1 tablet 09/22 Discontinued ondansetron (ZOFRAN) 4 mg tablet Take 1 tablet (4 mg total) by mouth every 8 (eight) hours as needed for nausea or vomiting 10/01 Discontinued acetaminophen (TYLENOL) 120 mg suppository Insert 1 suppository (120 mg total) into the rectum every 4 (four) hours as needed for pain 09/22 Discontinued predniSONE (DELTASONE) 50 mg tablet Take 1 tablet (50 mg) by mouth daily for 7 days 7 tablet 025 09/30 Discontinued omeprazole OTC (PriLOSEC OTC) 20 mg EC tablet Take 1 tablet (20 mg total) by mouth daily 30 tablet 2 025 09/30 Discontinued predniSONE (DELTASONE) 50 mg tablet Take 1 tablet (50 mg) by mouth daily for 7 days 7 tablet 025 10/07 ondansetron (ZOFRAN) 8 mg tabletIndication s:Follicular lymphoma, unspecified follicular lymphoma type, unspecified body region (HCC) Take 1 tablet (8 mg total) by mouth every 8 (eight) hours as needed for nausea or vomiting Use if prochlorperazine does not stop nausea 24 tablet 3 025 10/01 Discontinued( Alternate therapy) Active Problems Problem Noted Date Diagnosed Date Anxiety and depression 09/24/2024 Assessment & Plan (09/24/2024 3:43 PM CDT): - Patient previously treated with Zyprexa, clonazepam, sertraline. - Discussed duloxetine with the patient given her chronic pain syndrome, however she is apprehensive to start new medications at this time. - On restarted patient on clonazepam and sertraline. - Patient will need PCP and possibly a outpatient psychiatry for further management Chronic pain syndrome 09/24/2024 Assessment & Plan (09/24/2024 3:43 PM CDT): - Takes suboxone 8-2 daily. Has a prescription for it up to 3 times daily (confirmed in dispense reports) however reports only takes daily and more if she feels like she is having any withdrawals. Now complicated by pain from lymphoma. - Continue suboxone - Addiction medicine c/s given OUD and cancer related pain - Pain control, Tox c/s, Suboxone - Patient will need PCP upon discharge for pain management. A call was placed to her Suboxone clinic and a voicemail was left. Follicular lymphoma, unspeci fied follicular lymphoma type, unspecified body region 09/22/2024 Assessment & Plan (09/24/2024 3:43 PM CDT): - Follicular lymphoma (Dr. Aguilera; s/p 6 cycles bendamustine and 1 cycle of rituximab). Had CMR on EOT PET 01/28 however now with worsening pain, nightsweats, and lymphadenopathy c/f relapse vs transformation. - PET (09/22/24) - Extensive LAD, new in comparison to prior study, above and below the diaphragm as described above with many lymph nodes having moderate to marked FDG avidity compatible with lymphoma. Suspicion of hepatic and splenic involvement. Based on appearance of a new lesion suspected to represent lymphoma, 5PS = 5. Moderate diffuse uptake in the bone marrow which may be reactive however malignant involvement cannot be ruled out. - Defer BMBx at this time - Left axillary LN Bx (09/24/24) - pending - TTE (09/24) - pending - Plan to discharge patient with outpatient P follow-up on 09/30/24. Assessment & Plan (09/23/2024 12:21 PM CDT): Follicular lymphoma (Dr. Aguilera; s/p 6 cycles bendamustine and 1 cycle of rituximab). Had CMR on EOT PET 01/28 however now with worsening pain, nightsweats, and lymphadenopathy c/f relapse vs transformation. -PET (09/22/24) - Extensive LAD, new in comparison to prior study, above and below the diaphragm as described above with many lymph nodes having moderate to marked FDG avidity compatible with lymphoma. Suspicion of hepatic and splenic involvement. Based on appearance of a new lesion suspected to represent lymphoma, 5PS = 5. Moderate diffuse uptake in the bone marrow which may be reactive however malignant involvement cannot be ruled out. - Defer BMBx at this time - PB FC - pending - IR guided lymph node biopsy ordered - TTE - pending - Pain control, Tox c/s, Suboxone Assessment & Plan (09/22/2024 11:06 PM CDT): Follicular lymphoma (Dr. Aguilera; s/p 6 cycles bendamustine and 1 cycle of rituximab). Had CMR on EOT PET 01/28 however now with worsening pain, nightsweats, and lymphadenopathy c/f relapse vs transformation. -PETCT 09/22/24 1. Extensive lymphadenopathy, new in comparison to prior study, above and below the diaphragm as described above with many lymph nodes having moderate to marked FDG avidity compatible with lymphoma. In addition there is suspicion of hepatic and splenic involvement. Based on appearance of a new lesion suspected to represent lymphoma, 5PS = 5. 2. Moderate diffuse uptake in the bone marrow which may be reactive however malignant involvement cannot be ruled out. Bone marrow biopsy can be obtained if clinically indicated. -Peripheral flow ordered -IR guided lymph node biopsy ordered -Discuss with BMT, may need BMBx -Check BMT labs including TLS labs -Suspect anemia and tcp related to lymphoma - we discussed blood transfusion consent however she would like to talk to her boyfriend before consetning to blood products -Pain control -Check hCG -ACCESS: PIV -NPO after [place] Thrombocytopenia 09/22/2024 Assessment & Plan (09/24/2024 3:43 PM CDT): - Follicular lymphoma (Dr. Aguilera; s/p 6 cycles bendamustine and 1 cycle of rituximab). Had CMR on EOT PET 01/28 however now with worsening pain, nightsweats, and lymphadenopathy c/f relapse vs transformation. - PET (09/22/24) - Extensive LAD, new in comparison to prior study, above and below the diaphragm as described above with many lymph nodes having moderate to marked FDG avidity compatible with lymphoma. Suspicion of hepatic and splenic involvement. Based on appearance of a new lesion suspected to represent lymphoma, 5PS = 5. Moderate diffuse uptake in the bone marrow which may be reactive however malignant involvement cannot be ruled out. - Defer BMBx at this time - Left axillary LN Bx (09/24/24) - pending - TTE (09/24) - pending - Plan to discharge patient with outpatient [facility] follow-up on 09/30/24. Assessment & Plan (09/23/2024 12:21 PM CDT): Follicular lymphoma (Dr. Aguilera; s/p 6 cycles bendamustine and 1 cycle of rituximab). Had CMR on EOT PET 01/28 however now with worsening pain, nightsweats, and lymphadenopathy c/f relapse vs transformation. -PET (09/22/24) - Extensive LAD, new in comparison to prior study, above and below the diaphragm as described above with many lymph nodes having moderate to marked FDG avidity compatible with lymphoma. Suspicion of hepatic and splenic involvement. Based on appearance of a new lesion suspected to represent lymphoma, 5PS = 5. Moderate diffuse uptake in the bone marrow which may be reactive however malignant involvement cannot be ruled out. - Defer BMBx at this time - PB FC - pending - IR guided lymph node biopsy ordered - TTE - pending - Pain control, Tox c/s, Suboxone Assessment & Plan (09/22/2024 11:06 PM CDT): Follicular lymphoma (Dr. Aguilera; s/p 6 cycles bendamustine and 1 cycle of rituximab). Had CMR on EOT PET 01/28 however now with worsening pain, nightsweats, and lymphadenopathy c/f relapse vs transformation. -PETCT 09/22/24 1. Extensive lymphadenopathy, new in comparison to prior study, above and below the diaphragm as described above with many lymph nodes having moderate to marked FDG avidity compatible with lymphoma. In addition there is suspicion of hepatic and splenic involvement. Based on appearance of a new lesion suspected to represent lymphoma, 5PS = 5. 2. Moderate diffuse uptake in the bone marrow which may be reactive however malignant involvement cannot be ruled out. Bone marrow biopsy can be obtained if clinically indicated. -Peripheral flow ordered -IR guided lymph node biopsy ordered -Discuss with BMT, may need BMBx -Check BMT labs including TLS labs -Suspect anemia and tcp related to lymphoma - we discussed blood transfusion consent however she would like to talk to her boyfriend before consetning to blood products -Pain control -Check hCG -ACCESS: PIV -NPO after [place] Anemia 09/22/2024 Assessment & Plan (09/24/2024 3:43 PM CDT): - Follicular lymphoma (Dr. Aguilera; s/p 6 cycles bendamustine and 1 cycle of rituximab). Had CMR on EOT PET 01/28 however now with worsening pain, nightsweats, and lymphadenopathy c/f relapse vs transformation. - PET (09/22/24) - Extensive LAD, new in comparison to prior study, above and below the diaphragm as described above with many lymph nodes having moderate to marked FDG avidity compatible with lymphoma. Suspicion of hepatic and splenic involvement. Based on appearance of a new lesion suspected to represent lymphoma, 5PS = 5. Moderate diffuse uptake in the bone marrow which may be reactive however malignant involvement cannot be ruled out. - Defer BMBx at this time - Left axillary LN Bx (09/24/24) - pending - TTE (09/24) - pending - Plan to discharge patient with outpatient [facility] follow-up on 09/30/24. Assessment & Plan (09/23/2024 12:21 PM CDT): Follicular lymphoma (Dr. Aguilera; s/p 6 cycles bendamustine and 1 cycle of rituximab). Had CMR on EOT PET 01/28 however now with worsening pain, nightsweats, and lymphadenopathy c/f relapse vs transformation. -PET (09/22/24) - Extensive LAD, new in comparison to prior study, above and below the diaphragm as described above with many lymph nodes having moderate to marked FDG avidity compatible with lymphoma. Suspicion of hepatic and splenic involvement. Based on appearance of a new lesion suspected to represent lymphoma, 5PS = 5. Moderate diffuse uptake in the bone marrow which may be reactive however malignant involvement cannot be ruled out. - Defer BMBx at this time - PB FC - pending - IR guided lymph node biopsy ordered - TTE - pending - Pain control, Tox c/s, Suboxone Assessment & Plan (09/22/2024 11:06 PM CDT): Follicular lymphoma (Dr. Aguilera; s/p 6 cycles bendamustine and 1 cycle of rituximab). Had CMR on EOT PET 01/28 however now with worsening pain, nightsweats, and lymphadenopathy c/f relapse vs transformation. -PETCT 09/22/24 1. Extensive lymphadenopathy, new in comparison to prior study, above and below the diaphragm as described above with many lymph nodes having moderate to marked FDG avidity compatible with lymphoma. In addition there is suspicion of hepatic and splenic involvement. Based on appearance of a new lesion suspected to represent lymphoma, 5PS = 5. 2. Moderate diffuse uptake in the bone marrow which may be reactive however malignant involvement cannot be ruled out. Bone marrow biopsy can be obtained if clinically indicated. -Peripheral flow ordered -IR guided lymph node biopsy ordered -Discuss with BMT, may need BMBx -Check BMT labs including TLS labs -Suspect anemia and tcp related to lymphoma - we discussed blood transfusion consent however she would like to talk to her boyfriend before consetning to blood products -Pain control -Check hCG -ACCESS: PIV -NPO after [place] Skin infection 09/22/2024 Assessment & Plan (09/24/2024 3:43 PM CDT): Had PAC removed earlier this year however she noted this evening after getting out of a hot shower, she had some mild erythema and purulence drain after popping a boil located around her old PAC site. - Chest US (09/23) - small hypoechoic area present at the site of patient's prior drainage. May reflect postsurgical change versus small area of cellulitis. No drainable fluid collection. - Bcx - NGTD - DC IV Vanc - Mupirocin ointment Assessment & Plan (09/23/2024 2:39 PM CDT): Had PAC removed earlier this year however she noted this evening after getting out of a hot shower, she had some mild erythema and purulence drain after popping a boil located around her old PAC site. - Chest US (09/23) - small hypoechoic area present at the site of patient's prior drainage. May reflect postsurgical change versus small area of cellulitis. No drainable fluid collection. - Bcx - NGTD - DC IV Vanc - Mupirocin ointment Assessment & Plan (09/22/2024 11:04 PM CDT): Had PAC removed earlier this year however she noted this evening after getting out of a hot shower, she had some purulence and redness around her old PAC site. She felt like maybe the hot water brought up the infection. Some localized induration though don't see any fluctuance. It is possible this could be an abscess. -Obtain ultrasound of PAC site to see if any organized fluid collection that needs drainage -Blood cx -Start IV Vanc and Bacitracin ointment. Cancer related pain 09/22/2024 Assessment & Plan (09/24/2024 3:43 PM CDT): - Takes suboxone 8-2 daily. Has a prescription for it up to 3 times daily (confirmed in dispense reports) however reports only takes daily and more if she feels like she is having any withdrawals. Now complicated by pain from lymphoma. - Continue suboxone - Addiction medicine c/s given OUD and cancer related pain - Pain control, Tox c/s, Suboxone - Patient will need PCP upon discharge for pain management. A call was placed to her Suboxone clinic and a voicemail was left. Assessment & Plan (09/23/2024 12:21 PM CDT): Follicular lymphoma (Dr. Aguilera; s/p 6 cycles bendamustine and 1 cycle of rituximab). Had CMR on EOT PET 01/28 however now with worsening pain, nightsweats, and lymphadenopathy c/f relapse vs transformation. -PET (09/22/24) - Extensive LAD, new in comparison to prior study, above and below the diaphragm as described above with many lymph nodes having moderate to marked FDG avidity compatible with lymphoma. Suspicion of hepatic and splenic involvement. Based on appearance of a new lesion suspected to represent lymphoma, 5PS = 5. Moderate diffuse uptake in the bone marrow which may be reactive however malignant involvement cannot be ruled out. - Defer BMBx at this time - PB FC - pending - IR guided lymph node biopsy ordered - TTE - pending - Pain control, Tox c/s, Suboxone Assessment & Plan (09/22/2024 11:06 PM CDT): Follicular lymphoma (Dr. Aguilera; s/p 6 cycles bendamustine and 1 cycle of rituximab). Had CMR on EOT PET 01/28 however now with worsening pain, nightsweats, and lymphadenopathy c/f relapse vs transformation. -PETCT 09/22/24 1. Extensive lymphadenopathy, new in comparison to prior study, above and below the diaphragm as described above with many lymph nodes having moderate to marked FDG avidity compatible with lymphoma. In addition there is suspicion of hepatic and splenic involvement. Based on appearance of a new lesion suspected to represent lymphoma, 5PS = 5. 2. Moderate diffuse uptake in the bone marrow which may be reactive however malignant involvement cannot be ruled out. Bone marrow biopsy can be obtained if clinically indicated. -Peripheral flow ordered -IR guided lymph node biopsy ordered -Discuss with BMT, may need BMBx -Check BMT labs including TLS labs -Suspect anemia and tcp related to lymphoma - we discussed blood transfusion consent however she would like to talk to her boyfriend before consetning to blood products -Pain control -Check hCG -ACCESS: PIV -NPO after [place] Lymphadenopathy 09/17/2024 Assessment & Plan (09/17/2024 7:02 PM CDT): Presented with weight loss night sweats pain with worsening lymphadenopathy, splenomegaly concerning for recurrence of transformation of previously treated follicular lymphoma. - PETCT tentatively Wednesday 09/20, needs to be NPO for it - Pending PETCT, biopsy target - Can consider getting TTE/PICC line while waiting - BMT following Follicular lymphoma 09/17/2024 Assessment & Plan (09/17/2024 7:02 PM CDT): History of follicular lymphoma, diagnosed 12/18/2022, s/p bendamustine x6c and rituximab x1c though complicated by severe rituximab related infusion reaction. PET 02/04/2024 had shown CMR. Now with concern for recurrence. Opioid use disorder in remission 09/17/2024 Assessment & Plan (09/24/2024 3:43 PM CDT): - Takes suboxone 8-2 daily. Has a prescription for it up to 3 times daily (confirmed in dispense reports) however reports only takes daily and more if she feels like she is having any withdrawals. Now complicated by pain from lymphoma. - Continue suboxone - Addiction medicine c/s given OUD and cancer related pain - Pain control, Tox c/s, Suboxone - Patient will need PCP upon discharge for pain management. A call was placed to her Suboxone clinic and a voicemail was left. Assessment & Plan (09/23/2024 12:21 PM CDT): Takes suboxone 8-2 daily. Has a prescription for it up to 3 times daily (confirmed in dispense reports) however reports only takes daily and more if she feels like she is having any withdrawals. Now complicated by pain from lymphoma. -Continue suboxone - Addiction medicine c/s given OUD and cancer related pain Assessment & Plan (09/22/2024 11:04 PM CDT): Takes suboxone 8-2 daily. Has a prescription for it up to 3 times daily (confirmed in dispense reports) however reports only takes daily and more if she feels like she is having any withdrawals. Now complicated by pain from lymphoma. -Continue suboxone -Consult addiction medicine in the morning given OUD and cancer related pain Assessment & Plan (09/17/2024 7:02 PM CDT): OUD in remission on suboxone, though complicated by new pain suspected to be cancer-related pain. Due to pressure from outside providers, appears to have been self-downtitrating her MAT from roughly 32mg to 8-2 once daily and having issues with pain and cravings. - Discussed patient regarding SOC, which includes continuation of MAT and treatment of acute pain if indicated while undergoing workup - Shared decision making, continue suboxone 8-2mg BID for now - Oxycodone PRN1, can spot dilaudid PRN breakthrough, further adjustments (eg. Transition to full agonists, regimen/dosing decisions) pending shared decision making over admission Tobacco use 09/17/2024 Assessment & Plan (09/24/2024 3:43 PM CDT): Smokes 1PPD -Nicotine Patch Assessment & Plan (09/23/2024 12:21 PM CDT): Smokes 1PPD -Nicotine Patch Assessment & Plan (09/22/2024 11:04 PM CDT): Smokes 1PPD -Nicotine Patch Assessment & Plan (09/17/2024 7:02 PM CDT): - NRT Encounters Date Type Department Care Team Description 10/07/2024 8:45 AM CDT Infusion [facility] at [address] [phone] Follicular lymphoma, unspecified follicular lymphoma type, unspecified body region (HCC) (Primary Dx) 10/07/2024 8:15 AM CDT Lab [address] [address] Follicular lymphoma, unspecified follicular lymphoma type, unspecified body region (HCC) 10/01/2024 Orders Only [facility] [address] [place] [phone] Ramy Aguilera MD 09/30/2024 3:30 PM CDT Office Visit [facility] Bone Marrow Transplant [address] [place] [phone] Ramy Aguilera MD Follicular lymphoma, unspecified follicular lymphoma type, unspecified body region (HCC) (Primary Dx) 09/30/2024 3:00 PM CDT Lab [address] [address] Follicular lymphoma, unspecified follicular lymphoma type, unspecified body region (HCC); Follicular lymphoma grade III, unspecified body region (HCC) 09/30/2024 Orders Only [address] [phone] Paulina German RPh 09/28/2024 Telephone [facility] [address] [place] [phone] Tanesha Srinivasan RN 09/24/2024 Orders Only [facility] Bone Marrow Transplant [address] [place] [phone] Ramy Aguilera MD 09/21/2024 10:26 PM CDT - 09/24/2024 6:25 PM CDT Hospital Encounter [address] [phone] Zahra Alston MD Patel, Dilan Anil, MD Kim, MD Krishna Sosa, MD Saw Mendoza, Jamarcus Barahona MD Follicular lymphoma, unspecified follicular lymphoma type, unspecified body region (HCC) (Primary Dx) Discharge Disposition: Discharge to home or self care 09/21/2024 Documentation [facility] Bone Marrow Transplant [address] [place] [phone] Ramy Aguilera MD 09/21/2024 Hospital Encounter [facility] ADMIT [address] [place] [phone] Ramy Aguilera MD 09/17/2024 2:24 PM CDT - 09/17/2024 7:26 PM CDT Hospital Encounter [address] [phone] Ramy Aguilera MD Jeon, Alvin, MD Discharge Disposition: Left Against Medical Advice 09/17/2024 Documentation [facility] Oncology [facility] [address] [phone] Suzanne Martinez RN 09/16/2024 12:00 PM CDT Office Visit [facility] Physicians [facility] Bone Marrow Transplant [address] [place] [address] [place] [phone] Ramy Aguilera MD Follicular lymphoma grade III, unspecified body region (HCC) (Primary Dx) 09/16/2024 10:30 AM CDT Lab [facility] at [address] [address] Follicular lymphoma grade III, unspecified body region (HCC) 09/15/2024 9:49 AM CDT - 09/15/2024 11:59 PM CDT Hospital Encounter [facility] [address] [place] [id number] Discharge Disposition: Discharge to home or self care 09/15/2024 9:48 AM CDT - 09/15/2024 11:59 PM CDT Hospital Encounter [facility] ([facility]) [address] [place] [address] Discharge Disposition: Discharge to home or self care 09/15/2024 9:47 AM CDT - 09/15/2024 11:59 PM CDT Hospital Encounter [facility] ([facility]) [address] [place] [address] Discharge Disposition: Discharge to home or self care 09/15/2024 9:47 AM CDT - 09/15/2024 11:59 PM CDT Hospital Encounter [facility] ([facility]) [address] [place] [address] Discharge Disposition: Discharge to home or self care 09/15/2024 9:46 AM CDT - 09/15/2024 11:59 PM CDT Hospital Encounter [facility] ([facility]) [address] [place] [address] Discharge Disposition: Discharge to home or self care 09/15/2024 9:45 AM CDT - 09/15/2024 11:59 PM CDT Hospital Encounter [facility] ([facility]) [address] [place] [address] Discharge Disposition: Discharge to home or self care 09/15/2024 9:45 AM CDT - 09/15/2024 11:59 PM CDT Hospital Encounter [facility] ([facility]) [address] [place] [address] Discharge Disposition: Discharge to home or self care 09/15/2024 9:44 AM CDT - 09/15/2024 11:59 PM CDT Hospital Encounter [facility] ([facility]) [address] [place] [address] Discharge Disposition: Discharge to home or self care 09/15/2024 Orders Only [facility] [address] [place] [address] Ramy Aguilera MD Lymphoma of lymph nodes (HCC) 09/14/2024 Orders Only [facility] Physicians [facility] Oncology [address] [facility] [address] [place] [phone] Ramy Aguilera MD Lymphoma of lymph nodes (HCC) (Primary Dx) 09/13/2024 7:06 PM CDT - 09/13/2024 8:33 PM CDT Emergency [facility] Emergency Department [address] [place] [address] Mario Murray DO Lymphoma, unspecified body region, unspecified lymphoma type (HCC) (Primary Dx); Hypokalemia; Vaginal bleeding; Myalgia Discharge Disposition: Discharge to home or self care 09/05/2024 Documentation [facility] Oncology [address] [facility] Floor 8 [place] [id number] Nora Cheema MD 08/23/[address] [phone] Hannah Wilder, GUERO Scheduling Appointments 08/12/[address] [phone] Hannah Wilder, GUERO Scheduling Appointments from Last 3 Months Immunizations Immunization Administration Dates Next Due Tdap 02/06/2022 Surgical History Surgery Date Site/Laterality Comments PORTACATH PLACEMENT SECTION PORT REMOVAL BREAST CYST ASPIRATION US GUIDED BIOPSY LYMPH NODE SUPERFICIAL LEFT 09/24/2024 N/A Medical History Medical History Date Comments Lymphoma (HCC) Family History Medical History Relation Name Comments Cancer Maternal Grandfather Cancer Maternal Grandmother Cancer Mother Relation Name Status Comments Maternal Grandfather Maternal Grandmother Mother Social History Tobacco Use Types Packs/Day Years Used Date Smoking Tobacco: Every Day Cigarettes Passive Smoke Exposure: Current Tobacco Cessation:Ready to Q uit: Not Asked; Counseling Given: Not Answered AUDIT-C Answer Date Recorded Q1: How often [...] Sign Reading Time Taken Comments Blood Pressure 174/98 10/07/2024 11:50 AM CDT Pt was vomiting Pulse 60 10/07/2024 11:50 AM CDT Temperature 36.4 C (97.6 F) 10/07/2024 11:50 AM CDT Respiratory Rate 18 10/07/2024 11:5 0 AM CDT Oxygen Saturation 95% 10/07/2024 11: 50 AM CDT Inhaled Oxygen Concentration - - Weight 56.3 kg (124 lb 3.2 oz) 10/07/2024 8:30 AM CDT Height 159.9 cm (5' 2.95) 10/07/2024 8 :31 AM CDT Body Mass Index 22.03 10/07/2024 8:30 AM CDT Plan of Treatment Health Maintenance [...] series) 12/25/2020 11/27/2020, 11/06/2020 Influenza Vaccine (#1) 2024 04/02/2022 DTaP/Tdap/Td Vaccine (3 - Td or Tdap) 02/07/2032 02/06/2022, 11/05/2020 HPV Vaccines Aged Out No longer eligi ble based on patient's age to complete this topic Procedures Procedure Name Priority Date/Time Associated Diagnosis Comments EGFR STAT 10/07/2024 8:12 AM CDT Follicular lymphoma, unspecified follicular lymphoma type, unspecified body region (HCC) DIFFERENTIAL AUTO Routine 10/07/2024 8:1 2 AM CDT Follicular lymphoma, unspecified follicular lymphoma type, unspecified body region (HCC) HCG, BLOOD, QUANTITATIVE STAT 10/07/2024 8:12 AM CDT Follicular lymphoma, unspecified follicular lymphoma type, unspecified body region (HCC) CBC WITH AUTO DIFFERENTIAL Routine 10/07/2024 8:12 AM CDT Follicular lymphoma, unspecified follicular lymphoma type, unspecified body region (HCC) COMPREHENSIVE METABOLIC PANEL STAT 10/07/2024 8:12 AM CDT Follicular lymphoma, unspecified follicular lymphoma type, unspecified body region (HCC) EGFR Routine 09/30/2024 3:11 PM CDT Follicular lymphoma grade III, unspecified body region (HCC) DIFFERENTIAL AUTO Routine 09/30/2024 3:1 1 PM CDT Follicular lymphoma grade III, unspecified body region (HCC) LACTATE DEHYDROGENASE Routine 09/30/2024 3:11 PM CDT Follicular lymphoma grade III, unspecified body region (HCC) COMPREHENSIVE METABOLIC PANEL Routine 09/30/2024 3:11 PM CDT Follicular lymphoma grade III, unspecified body region (HCC) CBC WITH AUTO DIFFERENTIAL Routine 09/30/2024 3:11 PM CDT Follicular lymphoma grade III, unspecified body region (HCC) US GUIDED BIOPSY LYMPH NODE SUPERFICIAL LEFT IP Routine 09/24/2024 1:41 PM CDT FLOW LEUKEMIA/LYMPHOMA Routine 09/24/2024 1:28 PM CDT SURGICAL PATHOLOGY Routine 09/24/2024 1: 20 PM CDT Follicular lymphoma, unspecified follicular lymphoma type, unspecified body region (HCC) TRANSTHORACIC ECHO (TTE) COMPLETE W DOPPLER/CF WO CONTRAST Routine 09/24/2024 9:35 AM CDT EGFR Routine 09/24/2024 2:44 AM CDT MANUAL DIFFERENTIAL Routine 09/24/2024 2 :44 AM CDT CBC WITHOUT DIFFERENTIAL Routine 09/24/2024 2:44 AM CDT BASIC METABOLIC PANEL Routine 09/24/2024 2:44 AM CDT PHOSPHORUS Routine 09/24/2024 2:44 AM CDT BMT CBC Routine 09/24/2024 2:44 AM CDT US CHEST IP Routine 09/23/2024 10:33 AM CDT HCG, URINE, QUALITATIVE STAT 09/23/2024 12:14 AM CDT BLOOD CULTURE STAT 09/22/2024 11:02 PM CDT BLOOD CULTURE STAT 09/22/2024 11:02 PM CDT FLOW LEUKEMIA/LYMPHOMA Timed 09/22/2024 9:52 PM CDT HCG, BLOOD, QUANTITATIVE STAT 09/22/2024 9:52 PM CDT EGFR STAT 09/22/2024 9:52 PM CDT MANUAL DIFFERENTIAL STAT 09/22/2024 9 :52 PM CDT CBC WITHOUT DIFFERENTIAL STAT 09/22/2024 9:52 PM CDT FIBRINOGEN STAT 09/22/2024 9:52 PM CDT TYPE AND SCREEN STAT 09/22/2024 9:52 PM CDT APTT STAT 09/22/2024 9:52 PM CDT PROTIME-INR STAT 09/22/2024 9:52 PM CDT URIC ACID STAT 09/22/2024 9:52 PM CDT LACTATE DEHYDROGENASE STAT 09/22/2024 9:52 PM CDT PHOSPHORUS STAT 09/22/2024 9:52 PM CDT MAGNESIUM STAT 09/22/2024 9:52 PM CDT COMPREHENSIVE METABOLIC PANEL STAT 09/22/2024 9:52 PM CDT BMT CBC STAT 09/22/2024 9:52 PM CDT SURGICAL PATHOLOGY Routine 09/22/2024 9: 46 PM CDT ECG 12-LEAD STAT 09/22/2024 5:13 PM CDT PET/CT FDG SKULL TO THIGH ED Urgent/IP Urgent 09/22/2024 10:35 AM CDT DRUGS OF ABUSE SCREEN, URINE WITH REFLEX CONFIRMATION STAT 09/22/2024 1:54 AM CDT URINALYSIS, MICROSCOPIC ONLY STAT 09/22/2024 1:54 AM CDT URINALYSIS AND REFLEX TO MICROSCOPIC AND CULTURE STAT 09/22/2024 1:54 AM CDT COMPREHENSIVE METABOLIC PANEL STAT 09/22/2024 12:34 AM CDT MAGNESIUM STAT 09/22/2024 12:34 AM CDT EGFR STAT 09/22/2024 12:34 AM CDT LACTATE DEHYDROGENASE STAT 09/22/2024 12:34 AM CDT DIFFERENTIAL AUTO STAT 09/22/2024 12: 34 AM CDT PHOSPHORUS STAT 09/22/2024 12:34 AM CDT URIC ACID STAT 09/22/2024 12:34 AM CDT CBC WITH AUTO DIFFERENTIAL STAT 09/22/2024 12:34 AM CDT POCT RAPID HIV ANTIBODY COMMUNITY SCREENING-DEANN ELIGIBLE Routine 09/21/2024 9:55 PM CDT B CHECK SAMPLE STAT 09/17/2024 5:49 PM CDT BLASTOMYCES ANTIBODY, EIA, S Timed 09/17/2024 5:49 PM CDT EGFR STAT 09/17/2024 4:51 PM CDT DIFFERENTIAL AUTO STAT 09/17/2024 4:5 1 PM CDT TYPE AND SCREEN STAT 09/17/2024 4:51 PM CDT PHOSPHORUS STAT 09/17/2024 4:51 PM CDT MAGNESIUM STAT 09/17/2024 4:51 PM CDT COMPREHENSIVE METABOLIC PANEL STAT 09/17/2024 4:51 PM CDT CBC WITH AUTO DIFFERENTIAL STAT 09/17/2024 4:51 PM CDT EGFR Routine 09/16/2024 10:20 AM CDT Follicular lymphoma grade III, unspecified body region (HCC) DIFFERENTIAL AUTO Routine 09/16/2024 10: 20 AM CDT Follicular lymphoma grade III, unspecified body region (HCC) LACTATE DEHYDROGENASE Routine 09/16/2024 10:20 AM CDT Follicular lymphoma grade III, unspecified body region (HCC) COMPREHENSIVE METABOLIC PANEL Routine 09/16/2024 10:20 AM CDT Follicular lymphoma grade III, unspecified body region (HCC) CBC WITH AUTO DIFFERENTIAL Routine 09/16/2024 10:20 AM CDT Follicular lymphoma grade III, unspecified body region (HCC) SURGICAL PATHOLOGY Routine 09/15/2024 9: 55 AM CDT Lymphoma of lymph nodes (HCC) CT BODY OUTSIDE REFERENCE Routine 09/15/2024 9:49 [...] CDT from Last 3 Months Results * eGFR (10/07/2024 8:12 AM CDT) eGFR >90 >=60 mL/min/1. 73 m2 [...] was last reviewed 2021. Testing performed by: [address] [address] Blood 10/07/2024 8:12 AM CDT 10/07/2024 8:16 AM CDT us Ramy Aguilera MD LAB BLOOD ORDERABLES Final R esult [facility] [address] [facility] Department [place] [address] * (ABNORMAL) Differential, auto (10/07/2024 8:12 AM CDT) Neutrophil abs 5.64 1.50 - 6.50 K/cumm Comment:Testing performed by : [address] [address] Imm gran abs 0.08 0.00 - 0.10 K/cumm JOSELYN Comment:Testing performed by : [address] [address] Lymphocyte abs 12.57(H) 0.80 - 3.30 K/cumm JOSELYN Comment:Testing performed by : [address] [address] Monocyte abs 0.33 0.20 - 0.80 K/cumm JOSELYN Comment:Testing performed by : [address] [address] Eosinophil abs 0.02 0.00 - 0.50 K/cumm JOSELYN Comment:Testing performed by : [address] [address] Basophil abs 0.03 0.00 - 0.10 K/cumm JOSELYN Comment:Testing performed by : [address] [address] Neutrophil pct 30.2 % JOSELYN Comment: Interpretive Data Percent cell count reference ranges are not reported, since discordance with absolute values may lead to misinterpretation of CBC data. Current Interpretive Data was last revised on 2017. Testing performed by: [address] [address] Imm gran pct 0.4 % JOSELYN Comment: Interpretive Data Percent cell count reference ranges are not reported, since discordance with absolute values may lead to misinterpretation of CBC data. Current Interpretive Data was last revised on 2017. Testing performed by: [address] [address] Lymphocyte pct 67.3 % JOSELYN Comment: Interpretive Data Percent cell count reference ranges are not reported, since discordance with absolute values may lead to misinterpretation of CBC data. Current Interpretive Data was last revised on 2017. Testing performed by: [address] [address] Monocyte pct 1.8 % [facility] Comment: Interpretive Data Percent cell count reference ranges are not reported, since discordance with absolute values may lead to misinterpretation of CBC data. Current Interpretive Data was last revised on 2017. Testing performed by: [address] [address] Eosinophil pct 0.1 % [facility] Comment: Interpretive Data Percent cell count reference ranges are not reported, since discordance with absolute values may lead to misinterpretation of CBC data. Current Interpretive Data was last revised on 2017. Testing performed by: [address] [address] Basophil pct 0.2 % [facility] Comment: Interpretive Data Percent cell count reference ranges are not reported, since discordance with absolute values may lead to misinterpretation of CBC data. Current Interpretive Data was last revised on 2017. Testing performed by: [address] [address] Blood 10/07/2024 8:12 AM CDT 10/07/2024 8:16 AM CDT us Ramy Aguilera MD LAB BLOOD ORDERABLES Final R esult JOSELYN VAZQUEZ [address] [facility] Department of Laboratories [place], [place] [id number] * (ABNORMAL) CBC with auto differential (10/07/2024 8:12 AM CDT) WBC 18.67(H) 3.80 - 9.90 K/cumm Comment:Testing performed by : [address] [address] Hgb 10.6(L) 11.9 - 15.5 g/dL JOSELYN Comment:Testing performed by : [address] [address] Hct 32.3(L) 35.6 - 45.5 % JOSELYN Comment:Testing performed by : [address] [address] Plt 256 150 - 400 K/cumm JOSELYN Comment:Testing performed by : [address] [address] MPV 9.1 9.1 - 12.3 fL JOSELYN Comment:Testing performed by : [address] [address] RBC 3.44(L) 3.90 - 5.20 M/cumm JOSELYN Comment:Testing performed by : [address], [address] MCV 93.9 81.3 - 96.4 fL JOSELYN Comment:Testing performed by : [address] [address] MCH 30.8 27.1 - 33.3 pg JOSELYN Comment:Testing performed by : [address] [address] MCHC 32.8 32.3 - 35.7 g/dL JOSELYN Comment:Testing performed by : [address], [address] RDW CV 14.6 11.1 - 14.9 % JOSELYN Comment:Testing performed by : [address] [address] RDW SD 50.0(H) 35.7 - 48.1 fL JOSELYN Comment:Testing performed by : [address] [address] NRBC abs 0.00 0.00 - 0.01 K/cumm JOSELYN Comment:Testing performed by : [address] [place] [address] ANC Prelim 5.64 1.50 - 6.50 K/cumm JOSELYN VAZQUEZ Comment: Interpretive Data The rapid ANC is a preliminary automated count and may vary from the final ANC (Neut Abs) reported in the WBC differential that follows. Current interpretive data was last revised 2024. Testing performed by: [address] [address] Morphologic Screen Results confirmed by manual morphology review. JOSELYN Comment:Testing performed by : [address] [address] Blood 10/07/2024 8:12 AM CDT 10/07/2024 8:16 AM CDT Ramy Aguilera MD LAB BLOOD ORDERABLES Edited Result - Final Performing Organization Address [facility] Co de Phone Number [place] [phone] [facility] [place] [address] * hCG, blood, quantitative (10/07/2024 8:12 AM CDT) Pathologist [facility] [place] hCG, quant <5.0 0.0 - 5.0 IUnits/L Comment: Interpretive Data Male: < 5 IU/L Non- premenopausal Female: <5 IU/L The [employer] hCG Beta Quant assay procedure was used. Results from different manufacturers or methods may not be comparable. Serial testing should be performed using the same method. Interpretive Data was last revised on 2023 Testing performed by: [address] [address] Blood 10/07/2024 8:12 AM CDT 10/07/2024 9:06 AM CDT Narrative JOSELYN VAZQUEZ - 10/07/2024 10:00 AM CDT Need before treatment start Ramy Aguilera MD LAB BLOOD ORDERABLES Edited Result - Final Performing Organization Address [facility]/ZIP Co de Phone Number [place] [phone] [facility] [place] [address] * (ABNORMAL) Comprehensive metabolic panel (10/07/2024 8:12 AM CDT) Sodium 140 135 - 145 mmol/L Comment:Testing performed by : [address] [address] Potassium, pl 3.9 3.3 - 4.9 mmol/L JOSELYN Comment:Testing performed by : [address] [address] Chloride 101 97 - 110 mmol/L [facility] Comment:Testing performed by : [address] [address] CO2 28 22 - 32 mmol/L [facility] Comment:Testing performed by : [address] [address] Anion gap 11 2 - 15 mmol/L [facility] Comment:Testing performed by : [address] [address] BUN 19 6 - 25 mg/dL [facility] Comment:Testing performed by : [address], [place]., [address] Creatinine 0.70 0.60 - 1.10 mg/dL [facility] Comment:Testing performed by : [address] [address] Glucose 104 70 - 199 mg/dL [facility] Comment: Interpretive Data Fasting glucose >/= [...] was last revised 2022. Testing performed by: [address] [address] Calcium 9.0 8.5 - 10.3 mg/dL [facility] Comment:Testing performed by : [address] [address] Bilirubin, total 0.3 0.1 - 1.2 mg/dL JOSELYN Comment:Testing performed by : [address] [address] Protein, pl 6.2(L) 6.5 - 8.5 g/dL JOSELYN Comment:Testing performed by : [address] [address] Albumin 3.9 3.5 - 5.0 g/dL JOSELYN Comment:Testing performed by : [address], [address] Alk phos 128 40 - 130 Units/L JOSELYN Comment:Testing performed by : [address] [address] ALT 8 7 - 45 Units/L JOSELYN Comment:Testing performed by : [address], [address] AST 15 10 - 45 Units/L JOSELYN Comment:Testing performed by : [address] [address] Blood 10/07/2024 8:12 AM CDT 10/07/2024 8:16 AM CDT us Ramy Aguilera MD LAB BLOOD ORDERABLES Final R esult JOSELYN [address] [facility] Department of Laboratories [place], [place] [id number] * eGFR (09/30/2024 3:11 PM CDT) eGFR >90 >=60 mL/min/1. 73 [...] was last reviewed 2021. Testing performed by: [address] [address] Blood 09/30/2024 3:11 PM CDT 09/30/2024 3:19 PM CDT us Ramy Aguilera MD LAB BLOOD ORDERABLES Final R esult JOSE[facility]N [address] [facility] Department [place] [address] * Differential, auto (09/30/2024 3:11 PM CDT) Neutrophil abs 2.34 1.50 - 6.50 K/cumm Comment:Testing performed by : [address] [address] Imm gran abs 0.02 0.00 - 0.10 K/cumm JOSELYN Comment:Testing performed by : [address] [address] Lymphocyte abs 3.20 0.80 - 3.30 K/cumm JOSELYN Comment:Testing performed by : [address] [address] Monocyte abs 0.29 0.20 - 0.80 K/cumm JOSELYN Comment:Testing performed by : [address] [address] Eosinophil abs 0.07 0.00 - 0.50 K/cumm JOSELYN Comment:Testing performed by : [address] [address] Basophil abs 0.03 0.00 - 0.10 K/cumm JOSELYN Comment:Testing performed by : [address] [address] Neutrophil pct 39.3 % [facility] Comment: Interpretive Data Percent cell count reference ranges are not reported, since discordance with absolute values may lead to misinterpretation of CBC data. Current Interpretive Data was last revised on 2017. Testing performed by: [address] [address] Imm gran pct 0.3 % [facility] Comment: Interpretive Data Percent cell count reference ranges are not reported, since discordance with absolute values may lead to misinterpretation of CBC data. Current Interpretive Data was last revised on 2017. Testing performed by: [address] [address] Lymphocyte pct 53.8 % [facility] Comment: Interpretive Data Percent cell count reference ranges are not reported, since discordance with absolute values may lead to misinterpretation of CBC data. Current Interpretive Data was last revised on 2017. Testing performed by: [address] [address] Monocyte pct 4.9 % [facility] Comment: Interpretive Data Percent cell count reference ranges are not reported, since discordance with absolute values may lead to misinterpretation of CBC data. Current Interpretive Data was last revised on 2017. Testing performed by: [address] [address] Eosinophil pct 1.2 % [facility] Comment: Interpretive Data Percent cell count reference ranges are not reported, since discordance with absolute values may lead to misinterpretation of CBC data. Current Interpretive Data was last revised on 2017. Testing performed by: [address] [address] Basophil pct 0.5 % [facility] Comment: Interpretive Data Percent cell count reference ranges are not reported, since discordance with absolute values may lead to misinterpretation of CBC data. Current Interpretive Data was last revised on 2017. Testing performed by: [address] [address] Blood 09/30/2024 3:11 PM CDT 09/30/2024 3:19 PM CDT Ramy Aguilera MD LAB BLOOD ORDERABLES Final R esult [facility] [address] [facility] Department [place] [address] * (ABNORMAL) CBC with auto differential (09/30/2024 3:11 PM CDT) WBC 5.95 3.80 - 9.90 K/cumm Comment:Testing performed by : [address] [address] Hgb 10.6(L) 11.9 - 15.5 g/dL JOSELYN Comment:Testing performed by : [address] [address] Hct 30.6(L) 35.6 - 45.5 % JOSELYN Comment:Testing performed by : [address] [address] Plt 150 150 - 400 K/cumm JOSELYN Comment:Testing performed by : [address] [address] MPV 9.0(L) 9.1 - 12.3 fL JOSELYN Comment:Testing performed by : [address] [address] RBC 3.35(L) 3.90 - 5.20 M/cumm JOSELYN Comment:Testing performed by : [address] [address] MCV 91.3 81.3 - 96.4 fL JOSELYN Comment:Testing performed by : [address] [address] MCH 31.6 27.1 - 33.3 pg JOSELYN Comment:Testing performed by : [address] [address] MCHC 34.6 32.3 - 35.7 g/dL JOSELYN Comment:Testing performed by : [address] [address] RDW CV 14.7 11.1 - 14.9 % JOSELYN Comment:Testing performed by : [address] [address] RDW SD 49.1(H) 35.7 - 48.1 fL JOSELYN Comment:Testing performed by : [address] [address] NRBC abs 0.00 0.00 - 0.01 K/cumm JOSELYN VAZQUEZ Comment:Testing performed by : [address] [address] ANC Prelim 2.34 1.50 - 6.50 K/cumm JOSELYN Comment: Interpretive Data The rapid ANC is a preliminary automated count and may vary from the final ANC (Neut Abs) reported in the WBC differential that follows. Current interpretive data was last revised 2024. Testing performed by: [address] [address] Blood 09/30/2024 3:11 PM CDT 09/30/2024 3:19 PM CDT us Ramy Aguilera MD LAB BLOOD ORDERABLES Final R esult Performing Organization Address City/[facility]/ZIP Co de Phone Number [address] [place] [address] * (ABNORMAL) Lactate dehydrogenase (LD) (09/30/2024 3:11 PM CDT) Lactate dehydrogenase (LDH) 252(H) 100 - 250 Units/L Comment:Testing performed by : [address] [address] Blood 09/30/2024 3:11 PM CDT 09/30/2024 3:19 PM CDT us Ramy Aguilera MD LAB BLOOD ORDERABLES Final R esult Performing Organization Address City/[facility]/ZIP Co de Phone Number [address] [place] [address] * (ABNORMAL) Comprehensive metabolic panel (09/30/2024 3:11 PM CDT) Sodium 139 135 - 145 mmol/L Comment:Testing performed by : [address], [place]., [address] Potassium, pl 3.3 3.3 - 4.9 mmol/L JOSELYN Comment:Testing performed by : [address], [place]., [address] Chloride 97 97 - 110 mmol/L JOSELYN Comment:Testing performed by : [address], [place]., [address] CO2 29 22 - 32 mmol/L JOSELYN Comment:Testing performed by : [address], [place]., [address] Anion gap 13 2 - 15 mmol/L JOSELYN Comment:Testing performed by : [address], [place]., [address] BUN 4(L) 6 - 25 mg/dL JOSELYN Comment:Testing performed by : [address], [place]., [address] Creatinine 0.60 0.60 - 1.10 mg/dL JOSELYN Comment:Testing performed by : [address], [place]., [address] Glucose 97 70 - 199 mg/dL [facility] Comment: Interpretive Data Fasting glucose >/= [...] classification and Diagnosis of Diabetes Diabetes Care 2021; 46: S19-S40. Current interpretive data was last revised 2022. Testing performed by: [address] [address] Calcium 9.4 8.5 - 10.3 mg/dL JOSELYN Comment:Testing performed by : [address], [place]., [address] Bilirubin, total 0.7 0.1 - 1.2 mg/dL JOSELYN Comment:Testing performed by : [address] [address] Protein, pl 6.1(L) 6.5 - 8.5 g/dL JOSELYN Comment:Testing performed by : [address] [address] Albumin 4.0 3.5 - 5.0 g/dL JOSELYN Comment:Testing performed by : [address] [address] Alk phos 207(H) 40 - 130 Units/L JOSELYN Comment:Testing performed by : [address] [address] ALT 13 7 - 45 Units/L JOSELYN Comment:Testing performed by : [address] [address] AST 29 10 - 45 Units/L JOSE[facility]N Comment:Testing performed by : [address] [address] Blood 09/30/2024 3:11 PM CDT 09/30/2024 3:19 PM CDT us Ramy Aguilera MD LAB BLOOD ORDERABLES Final R esult [facility] [address] [facility] Department [place] [address] * US Guided Biopsy Lymph Node Superficial Left (09/24/2024 1:41 PM CDT) Anatomical Region Laterality Modality Entire body N/A Ultrasound 09/24/2024 1:42 PM CDT Impressions 09/24/2024 2:43 PM CDT 1. Successful ultrasound-guided core needle biopsy of left axillary lymph node. 2. Please see separate Surgical Pathology results for final interpretation. The radiology attending physician has personally reviewed this study, and had reviewed and/or edited this written report and agrees with it. Electronically signed by: SARAHY Beal Narrative 09/24/2024 2:43 PM CDT EXAMINATION: ULTRASOUND-GUIDED CORE BIOPSY HISTORY: 34-year-old F with follicular lymphoma and recent PET/CT finding of FDG avid lymphadenopathy. Patient presents for left axillary lymph node biopsy. COMPARISON: 09/22/2024 PET/CT. FINDINGS: There are numerous bulky ayad conglomerates within the left axilla which corresponds to the FDG avid left axilla lymph node. The left axillary vasculature is clearly visualized. A large lymph node with a safe window was targeted for biopsy. TECHNIQUE: The procedure for ultrasound-guided core biopsy was explained to and discussed with the patient. Risks were explained to include, but not be limited to, hemorrhage, infection, injury to adjacent organs, non-diagnostic specimen and adverse reaction to medications administered. The patient voiced understanding and wished to proceed and signed the consent form. PROCEDURAL SEDATION: Local anesthesia only CORE BIOPSY: The lesion was located in the left axilla and measured 4.9 cm x 3.5 cm x 2.4 cm. An appropriate site was localized for core biopsy. The patient's overlying skin was prepped and draped in the usual sterile fashion. Local anesthesia was achieved via subcutaneous and deep administration with 10 mL of Lidocaine 1%. Under realtime ultrasound guidance, 5 passes were made with an 18 gauge BioPince core biopsy needle, 2 cm throw, with the use of a 17 gauge introducer needle. 3 of the core specimens were placed in formalin and 2 of the core specimens were placed in RPMI solution and submitted to the facility examiner service for delivery to Surgical Pathology. No tract embolization was performed. The patient's skin was cleaned and dressed. The patient tolerated the entire procedure well without immediate complications. SARAHY Beal, was present from the beginning to the end of the procedure. SARAHY Beal performed the biopsy. Dr. Filiberto Rosales was present and participated in the procedure. Dr. Filiberto Rosales (president and cmo) personally participated in sonographic imaging of this patient. Procedure Note Beth Wade PA - 09/24/2024 EXAMINATION: ULTRASOUND-GUIDED CORE BIOPSY HISTORY: 34-year-old F with follicular lymphoma and recent PET/CT finding of FDG avid lymphadenopathy. Patient presents for left axillary lymph node biopsy. COMPARISON: 09/22/2024 PET/CT. FINDINGS: There are numerous bulky ayad conglomerates within the left axilla which corresponds to the FDG avid left axilla lymph node. The left axillary vasculature is clearly visualized. A large lymph node with a safe window was targeted for biopsy. TECHNIQUE: The procedure for ultrasound-guided core biopsy was explained to and discussed with the patient. Risks were explained to include, but not be limited to, hemorrhage, infection, injury to adjacent organs, non-diagnostic specimen and adverse reaction to medications administered. The patient voiced understanding and wished to proceed and signed the consent form. PROCEDURAL SEDATION: Local anesthesia only CORE BIOPSY: The lesion was located in the left axilla and measured 4.9 cm x 3.5 cm x 2.4 cm. An appropriate site was localized for core biopsy. The patient's overlying skin was prepped and draped in the usual sterile fashion. Local anesthesia was achieved via subcutaneous and deep administration with 10 mL of Lidocaine 1%. Under realtime ultrasound guidance, 5 passes were made with an 18 gauge BioPince core biopsy needle, 2 cm throw, with the use of a 17 gauge introducer needle. 3 of the core specimens were placed in formalin and 2 of the core specimens were placed in RPMI solution and submitted to the facility examiner service for delivery to Surgical Pathology. No tract embolization was performed. The patient's skin was cleaned and dressed. The patient tolerated the entire procedure well without immediate complications. SARAHY Beal, was present from the beginning to the end of the procedure. SARAHY Beal performed the biopsy. Dr. Filiberto Rosales was present and participated in the procedure. Dr. Filiberto Rosales (president and cmo) personally participated in sonographic imaging of this patient. IMPRESSION: 1. Successful ultrasound-guided core needle biopsy of left axillary lymph node. 2. Please see separate Surgical Pathology results for final interpretation. The radiology attending physician has personally reviewed this study, and had reviewed and/or edited this written report and agrees with it. Electronically signed by: SARAHY Beal Vinayak Olmstead [place] [facility] [place]ED[place] Final R esult * Flow Leukemia/Lymphoma Lymph node (09/24/2024 1:28 PM CDT) Heath Stain Test Completed Leukemia/Lymp arianna Result See separate Surgical Pathology report. [facility] Lymph node 09/24/2024 1:28 PM CDT 09/24/2024 4:27 PM CDT us Jamarcus Spring MD LAB PATHOLOGY ORDERABLES Frances cony Result JOSELYN [facility] Department [place] [address] * Surgical pathology (09/24/2024 1:20 PM CDT) Tissue (Lymph node, needle biopsy) 09/24/2024 1:20 PM CDT Comment:Lymphoma Tissue specimen (specimen) (Lymph node, needle biopsy) 09/24/2024 1:28 PM CDT Comment:Lymphoma Narrative PATHOLOGY [facility] - 09/28/2024 6:22 PM CDT EPIC results best viewed via link to PDF [facility] [place] [address] Note to Patients: This report may contain a detailed description of human tissue sent by a health care provider to the laboratory for pathologic evaluation. The content of this report is essential for diagnosis and may provide important critical findings. This information may be unfamiliar to patients to review without a medical professional present. It is advised that the patient review this report in the presence of a health care provider who can answer questions and explain the details. SURGICAL PATHOLOGY REPORT FINAL Patient Name: SOHA MARRERO Gender: F : 1990 (Age: 34) Address: [address] [place] [address] [facility] #: [id number] Taken:09/24/2024 Received:09/24/2024 Reported: 09/28/2024 Patient Type: [facility] Inpatient Service: BoneMarTranspl Location: [facility] [address] Physician(s): AUDI Page Diagnosis: A. Lymph node, left axilla, needle core biopsy: - Follicular lymphoma, grade 1-2 of 3 - See comment B. Lymph node, left axilla, for flow cytometry - [id number] kappa-restricted monoclonal B-cell population detected (79% of total cell events) ji/09/28/2024 11:13 By this signature, I attest that the above diagnosis is based upon my personal examination of the slides(and/or other material indicated in the diagnosis). Rodriguez Salinas M.D., Ph.D. Report Electronically Reviewed and Signed Out By Rodriguez Salinas M.D., Ph.D. 09/28/2024 18:22:45 Microscopic Description and Comment: Histology: Microscopic examination reveals lymph node architecture effaced by nodular proliferation composed predominantly of small lymphocytes with irregular nuclear contours, condensed chromatin and indistinct nucleoli. Admixed are scattered larger nucleolated lymphoid forms consistent with centroblasts (less than 15 per hpf). No diffuse proliferation of large atypical cells is identified. Immunohistochemistry: Immunohistochemistry studies (with appropriate controls) are performed for further evaluation in tissue context: CD3, CD20, CD10, BCL6, BCL2, CD21, CD23, Ki67 Neoplastic lymphocytes are [id number] B-cells co-expressing CD10, BCL-6 (subset), BCL-2 and CD23 (subset). Immunostain for CD21 highlights follicular dendritic networks associated with neoplastic follicles. Immunostain for CD3 highlights admixed scattered T-cells. Proliferation rate, as assessed by immunostain for Ki-67, is approximately 10-20%. Flow cytometry Specimen quality: Adequate Flow cytometry identifies an immunophenotypically abnormal B-cell population of germinal center origin comprising 79% of total cellular events. Of the CD19+ B-lymphoid cells 4% have increased forward scatter characteristics indicative of larger cell volume or size. Antigens expressed: CD45, CD19, CD20, Quitaque, CD10, CD38(heterogenous) Antigens not expressed: CD34, Lambda, CD5, CD200, CD2, CD3, CD4, CD7, CD8, CD56, TCR-GD CD3+ T-lymphocytes show no umanozr T cell antigen aberrancies and have an increased CD4 to CD8 ratio (15:1). Natural killer cells are not increased. Plasma cells are not overtly increased. No significant CD45 dim population is identified. CD34+ blasts are not increased. A Heath-Giemsa stained cytospin from the flow cytometry specimen was examined for internal quality assurance supervisor final purposes. Flow cytometry was performed using antibodies to the following cellular antigens: CD45, CD34, CD19, CD20, Quitaque, Lambda, CD10, CD5, CD200, CD38, CD2, CD3, CD4, CD7, CD8, CD56, TCR-GD. Total antigens analyzed: 17 Jiannan Li, M.D. History: The patient is a 34-year-old woman presenting for follicular lymphoma. Operative procedure: Left axilla lymph node biopsy. Specimen(s) Received: A: Left axilla lymph node biopsy B: Left axilla lymph node biopsy Gross Description: Received in formalin, labeled with the patient s identifiers and left axilla lymph node biopsy and consists of three white core(s) of soft tissue measuring 1.5-1.8 cm in length x 0.1 cm in diameter. Labeled A1 to A2. Jar 0. elsw/09/24/2024 16:16 PA(s): Radha Amaro By this signature, I attest that the above diagnosis is based upon my personal examination of the slides(and/or other material). Addenda/Procedures The performance characteristics of some immunohistochemical stains, fluorescence in-situ hybridization tests and immunophenotyping by flow cytometry cited in this report (if any) were determined by the Surgical Pathology and Flow Cytometry Departments at [facility] as part of an ongoing quality controller program and in compliance with federally mandated regulations drawn from the Clinical Laboratory Improvement Act of 1988 (CLIA '88). Some of these tests rely on the use of analyte specific reagents and are subject to specific labeling requirements by the US Food and Drug Administration. Such diagnostic tests may only be performed in a facility that is certified by the Department of Health and Human Services as a high complexity laboratory under CLIA '88. The FDA has determined that such clearance or approval is not necessary. This test is used for clinical purposes. It should not be regarded as investigational or for research. Nevertheless, federal rules concerning the medical use of analyte specific reagents require that the following disclaimer be attached to the report: This test was developed and its performance characteristics determined by the Surgical Pathology and Flow Cytometry Departments of [facility]. It has not been cleared or approved by the U. S. Food and Drug Administration. IMAGES AND SCANNED DOCUMENTS, IF INCLUDED, ONLY VIEWABLE IN PDF VERSION OF REPORT Vinayak Olmstead MD LAB PATHOLOGY ORDERABLES Final Result PATHOLOGY [facility] 3rd Floor [place], [place] [phone] * TRANSTHORACIC ECHO (TTE) COMPLETE W DOPPLER/CF WO CONTRAST (09/24/2024 9:35 AM CDT) EF Mod BP 69 % CONS SCIMAGE Anatomical Region Laterality Modality Ultrasound 09/24/2024 7:44 AM CDT Narrative 09/24/2024 11:04 AM CDT [facility] Cardiac [place] [address] Transthoracic Echocardiographic Report Patient Name: SOHA MARRERO R : 1990 (34y 7m) Gender: F Study Date: 09/24/2024 07:44:37 AM Ht(Inch): 63 Wt(Lb): 123.02 BSA: 1.57 Belt Sander Stone: Rafy Ohara RDCS Location: [id number] Order Provider: HIPOLITO ARMSTRONG Heart Rate: 97 BMI: 21.79 BP: 140 / 93 Ref Provider: HIPOLITO ARMSTRONG PROCEDURES: Echocardiographic Report: Transthoracic complete echo with strain imaging, 2D, spectral and tissue Doppler, color flow Doppler, M-mode. INDICATIONS: Lymphoma, pre Chemo. CONCLUSIONS: 1. Mildly dilated left ventricle based on volume index. Concentric LV remodeling. Normal left ventricular systolic function. The Ejection Fraction (Garcia's) is measured at 69 %. Normal diastolic function. The average global longitudinal strain is normal. 2. Normal right ventricular size. Normal right ventricular systolic function. 3. Mild tricuspid regurgitation. COMPARISONS: No previous study available for comparison. ATTESTATION: I have personally reviewed and interpreted this study without fellow or resident. - DISCLAIMER: The study images and the final report will be retained in the patient chart by the Echo Laboratory for the legally required time period. This chart constitutes the legal record of any testing performed. FINDINGS: Left Ventricle: Mildly dilated left ventricle based on volume index. Concentric LV remodeling. Normal left ventricular systolic function. The Ejection Fraction (Garcia's) is measured at 69 %. Normal diastolic function. The average global longitudinal strain is normal. The LV global strain is: -23.4 %. Right Ventricle: Normal right ventricular size. Normal right ventricular systolic function. The right ventricular strain is more negative than -17%. RV GLS - 18.7%. Left Atrium: The left atrium is normal in size. Right Atrium: The right atrium is normal in size. Mitral Valve: Normal mitral valve structure. No mitral regurgitation. No stenosis present. Aortic Valve: Normal trileaflet aortic valve. No aortic regurgitation. No aortic valve stenosis. Tricuspid Valve: Normal tricuspid valve structure. Mild tricuspid regurgitation. No tricuspid valve stenosis. Pulmonic Valve: Normal pulmonic valve structure. No pulmonic regurgitation. No pulmonic valve stenosis present. Pericardium: Normal pericardium without pericardial effusion. Aorta: Normal aortic root size when indexed. The ascending aorta is normal in size when indexed. IVC: IVC is normal in size. The IVC was <2.1 cm and collapsibility >50%. (est. RA pressure 0-5 mmHg). The estimated RA pressure is 3 mmHg. PASP: Normal estimated pulmonary artery systolic pressure. The estimated pulmonary artery systolic pressure is 30.0 mmHg. Rhythm: Normal Sinus rhythm was seen during the study. MEASUREMENTS: 2D/MM Value Range Doppler Value Range LVIDd 2D 4.11 cm [ 3.80 - 5.20 ] AV VTI 28.5 cm LVIDs 2D 2.50 cm [ 2.20 - 3.50 ] LVOT VTI 23.2 cm IVSd 2D 1.00 cm [ 0.60 - 0.90 ] LVOT/AV VTI 0.81 - Dimensionless index (DVI) LVPWd 2D 0.98 cm [ 0.60 - 0.90 ] MV E Peak Kraig 0.9 m/s [ 0.6 - 1.3 ] LV Thickness Ratio 1.0 MV A Peak Kraig 0.6 m/s [ 1.0 - 1.2 ] RWT 0.48 MV E/A 1.5 ratio [ 0.8 - 1.5 ] EDV Mod BP 109.08 ml [ 46.00 - 106.00 ] MV Decel Time 178.45 msec [ 104.00 - 258.00 ] LV EDV Index 69.48 ml/m2 Med E` Kraig 13.4 cm/sec [ 8.0 - 25.0 ] ESV Mod BP 33.50 ml [ 14.00 - 42.00 ] Lat E` Kraig 15.9 cm/sec [ 10.0 - 25.0 ] EF Mod BP 69 % [ 54 - 74 ] Average E/E` 6.14 LV GLS -23.4 % [ -25.0 - -18.0 ] RV S` 12.57 cm/sec LA Volume BP 50.93 ml TR Peak Kraig 2.6 m/s [ 1.0 - 2.8 ] LA Volume Index 32.44 ml/m2 [ 16.00 - 34.00 ] TR Peak PG 27.0 mmHg RV Base Dimen 2D 2.7 cm [ 2.5 - 4.2 ] RA Pressure 3 mmHg TAPSE 2.68 cm [ 1.71 - 5.00 ] RVSP 30.00 mmHg RA Volume 35.92 ml RA Volume Index 22.88 ml/m2 AoR Diam 2D 2.84 cm [ 2.70 - 3.70 ] Ao Root Index 1.81 cm/m2 [ 1.00 - 2.00 ] Asc Ao Diam 2D 2.69 cm Asc Ao Index 1.71 cm/m2 Electronically Signed By: Nilam Alvarez MD 09/24/2024 11:03:41 AM CDT Procedure Note De Nilam Bowie MD - 09/24/2024 [facility] [place] [address] Transthoracic Echocardiographic Report Patient Name: SOHA MARRERO R : 1990 (34y 7m) Gender: F Study Date: 09/24/2024 07:44:37 AM Ht(Inch): 63 Wt(Lb): 123.02 BSA: 1.57 Belt Sander Stone: Rafy Ohara [facility] Location: [id number] Order Provider:HIPOLITO ARMSTRONG Heart Rate: 97 BMI: 21.79 BP: 140 / 93 Ref Provider: HIPOLITO ARMSTRONG PROCEDURES: Echocardiographic Report: Transthoracic complete echo with strain imaging,2D, spectral and tissue Doppler, color flow Doppler, M-mode. INDICATIONS: Lymphoma, pre Chemo. CONCLUSIONS: 1. Mildly dilated left ventricle based on volume index. Concentric LVremodeling. Normal left ventricular systolic function. The Ejection Fraction (Garcia's) ismeasured at 69 %. Normal diastolic function. The average global longitudinal strain isnormal. 2. Normal right ventricular size. Normal right ventricular systolicfunction. 3. Mild tricuspid regurgitation. COMPARISONS: No previous study available for comparison. ATTESTATION: I have personally reviewed and interpreted this study without fellow orresident. - DISCLAIMER: The study images and the final report will be retained in the patientchart by the Echo Laboratory for the legally required time period. This chart constitutesthe legal record of any testing performed. FINDINGS: Left Ventricle: Mildly dilated left ventricle based on volume index.Concentric LV remodeling. Normal left ventricular systolic function. The EjectionFraction (Garcia's) is measured at 69 %. Normal diastolic function. The average globallongitudinal strain is normal. The LV global strain is: -23.4 %. Right Ventricle: Normal right ventricular size. Normal right ventricularsystolic function. The right ventricular strain is more negative than -17%. RV GLS-18.7%. Left Atrium: The left atrium is normal in size. Right Atrium: The right atrium is normal in size. Mitral Valve: Normal mitral valve structure. No mitral regurgitation. Nostenosis present. Aortic Valve: Normal trileaflet aortic valve. No aortic regurgitation. Noaortic valve stenosis. Tricuspid Valve: Normal tricuspid valve structure. Mild tricuspidregurgitation. No tricuspid valve stenosis. Pulmonic Valve: Normal pulmonic valve structure. No pulmonicregurgitation. No pulmonic valve stenosis present. Pericardium: Normal pericardium without pericardial effusion. Aorta: Normal aortic root size when indexed. The ascending aorta is normalin size when indexed. IVC: IVC is normal in size. The IVC was <2.1 cm and collapsibility >50%.(est. RA pressure 0-5 mmHg). The estimated RA pressure is 3 mmHg. PASP: Normal estimated pulmonary artery systolic pressure. The estimatedpulmonary artery systolic pressure is 30.0 mmHg. Rhythm: Normal Sinus rhythm was seen during the study. MEASUREMENTS: 2D/MM Value Range DopplerValue Range LVIDd 2D 4.11 cm [ 3.80 - 5.20 ] AV VTI28.5 cm LVIDs 2D 2.50 cm [ 2.20 - 3.50 ] LVOT VTI23.2 cm IVSd 2D 1.00 cm [ 0.60 - 0.90 ] LVOT/AV VTI0.81 - Dimensionless index (DVI) LVPWd 2D 0.98 cm [ 0.60 - 0.90 ] MV E Peak Vel0.9 m/s [ 0.6 - 1.3 ] LV Thickness Ratio 1.0 MV A Peak Vel0.6 m/s [ 1.0 - 1.2 ] RWT 0.48 MV E/A1.5 ratio [ 0.8 - 1.5 ] EDV Mod BP 109.08 ml [ 46.00 - 106.00 ] MV Decel Rxdw966.45 msec [ 104.00 - 258.00 ] LV EDV Index 69.48 ml/m2 Med E` Vel13.4 cm/sec [ 8.0 - 25.0 ] ESV Mod BP 33.50 ml [ 14.00 - 42.00 ] Lat E` Vel15.9 cm/sec [ 10.0 - 25.0 ] EF Mod BP 69 % [ 54 - 74 ] Average E/E`6.14 LV GLS -23.4 % [ -25.0 - -18.0 ] RV S`12.57 cm/sec LA Volume BP 50.93 ml TR Peak Vel2.6 m/s [ 1.0 - 2.8 ] LA Volume Index 32.44 ml/m2 [ 16.00 - 34.00 ] TR Peak PG27.0 mmHg RV Base Dimen 2D 2.7 cm [ 2.5 - 4.2 ] RA Pressure3 mmHg TAPSE 2.68 cm [ 1.71 - 5.00 ] RVSP30.00 mmHg RA Vpzfrr07.92 ml RA Volume Index22.88 ml/m2 AoR Diam 2D 2.84 cm [ 2.70 - 3.70 ] Ao Root Index 1.81 cm/m2 [ 1.00 - 2.00 ] Asc Ao Diam 2D2.69 cm Asc Ao Index1.71 cm/m2 Electronically Signed By: Nilam Alvarez MD 09/24/2024 11:03:41 AM CDT us Hipolito Armstrong MD CV ECHO PROCEDURES Final Result * eGFR (09/24/2024 2:44 AM CDT) eGFR >90 >=60 mL/min/1. 73 m2 [...] Current interpretive data was last reviewed 2021. Blood 09/24/2024 2:44 AM CDT 09/24/2024 2:57 AM CDT Vinayak Olmstead MD LAB BLOOD ORDERABLES Frances l Result [facility] Department [place] [address] * (ABNORMAL) Manual Differential (09/24/2024 2:44 AM CDT) Differential Manual Cells Counted [address] [facility] Neutrophil abs 3.00 1.50 - 6.50 K/cumm [facility] Lymphocyte abs 2.42 0.80 - 3.30 K/cumm [facility] Monocyte abs 0.29 0.20 - 0.80 K/cumm [facility] Eosinophil abs 0.05 0.00 - 0.50 K/cumm [facility] Basophil abs 0.05 0.00 - 0.10 K/cumm [facility] Neutrophil pct 51.7 % [facility] Comment: Interpretive Data Percent cell count reference ranges are not reported, since discordance with absolute values may lead to misinterpretation of CBC data. Current Interpretive Data was last revised on 2017. Lymphocyte pct 40.0 % [facility] Comment: Interpretive Data Percent cell count reference ranges are not reported, since discordance with absolute values may lead to misinterpretation of CBC data. Current Interpretive Data was last revised on 2017. Monocyte pct 5.0 % [facility] Comment: Interpretive Data Percent cell count reference ranges are not reported, since discordance with absolute values may lead to misinterpretation of CBC data. Current Interpretive Data was last revised on 2017. Eosinophil pct 0.8 % [facility] Comment: Interpretive Data Percent cell count reference ranges are not reported, since discordance with absolute values may lead to misinterpretation of CBC data. Current Interpretive Data was last revised on 2017. Basophil pct 0.8 % [facility] Comment: Interpretive Data Percent cell count reference ranges are not reported, since discordance with absolute values may lead to misinterpretation of CBC data. Current Interpretive Data was last revised on 2017. Variant lymph pct 1.7(H) 0.0 - 0.0 % [facility] RBC morphology Present(A) [facility] Anisocytosis Slight(A) [facility] Macrocytes 3-7/HPF(A) [facility] Platelet estimate Decreased( A) [facility] Blood 09/24/2024 2:44 AM CDT 09/24/2024 2:57 AM CDT Vinayak Olmstead MD LAB BLOOD ORDERABLES Frances donnelly Result [facility] Department [place] [address] * (ABNORMAL) CBC without differential (09/24/2024 2:44 AM CDT) WBC 5.81 3.80 - 9.90 K/cumm Hgb 11.1(L) 11.9 - 15.5 g/dL [facility] Hct 32.1(L) 35.6 - 45.5 % [facility] Plt 117(L) 150 - 400 K/cumm [facility] MPV 9.3 9.1 - 12.[address] [facility] RBC 3.46(L) 3.90 - 5.20 M/cumm [facility] MCV 92.8 81.3 - 96.[address] [facility] MCH 32.1 27.1 - 33.[address] [facility] MCHC 34.6 32.3 - 35.7 g/dL [facility] RDW CV 15.5(H) 11.1 - 14.9 % [facility] RDW SD 52.3(H) 35.7 - 48.[address] [facility] NRBC abs 0.00 0.00 - 0.01 K/cumm [facility] Blood 09/24/2024 2:44 AM CDT 09/24/2024 2:57 AM CDT Vinayak Olmstead MD LAB BLOOD ORDERABLES Frances l Result [facility] [place] [address] * Phosphorus (09/24/2024 2:44 AM CDT) Pathologist [facility] [place] Phosphorus, pl 2.8 2.3 - 4.5 mg/dL Blood 09/24/2024 2:44 AM CDT 09/24/2024 2:57 AM CDT Vinayak Olmstead MD LAB BLOOD ORDERABLES Frances l Result Performing Organization Address [facility] Co de Phone Number [facility] [place] [address] * Basic metabolic panel (09/24/2024 2:44 AM CDT) [facility] Sodium 138 135 - 145 mmol/L Potassium, pl 3.8 3.3 - 4.9 mmol/L [facility] Chloride 101 97 - 110 mmol/L [facility] CO2 27 22 - 32 mmol/L [facility] Anion gap 10 2 - 15 mmol/L [facility] BUN 6 6 - 25 mg/dL [facility] Creatinine 0.76 0.60 - 1.10 mg/dL [facility] Glucose 126 70 - 199 mg/dL [facility] Comment: Interpretive Data Fasting glucose [...] classification and Diagnosis of Diabetes Diabetes Care 2021; 46: S19-S40. Current interpretive data was last revised 2022. Calcium 9.1 8.5 - 10.3 mg/dL [facility] Blood 09/24/2024 2:44 AM CDT 09/24/2024 2:57 AM CDT Narrative [facility] - 09/24/2024 3:27 AM CDT Daily except Friday and . Morning draw. Vinayak Olmstead MD LAB BLOOD ORDERABLES Frances l Result [facility] Department [place] [address] * US Chest (09/23/2024 10:33 AM CDT) Anatomical Region Laterality Modality Chest N/A Ultrasound 09/23/2024 10:3 6 AM CDT Impressions 09/23/2024 11:20 AM CDT Small hypoechoic area is present at the site of patient's prior drainage. This may reflect postsurgical change versus small area of cellulitis. No drainable fluid collection. Dictated by: Fabiano Grubbs MD The radiology attending physician has personally reviewed this study, and had reviewed and/or edited this written report and agrees with it. Electronically signed by: David Gonzalez MD, PHD Narrative 09/23/2024 11:20 AM CDT EXAMINATION: LEFT CHEST SONOGRAM HISTORY: Patient with recent port removal and drainage of the site, concern for possible infectious process. COMPARISON: None FINDINGS: Sonogram of the left chest reveals multiple morphologically normal-appearing lymph nodes in the sub-pectoral regions. Superficial soft tissues overlying the area of patient's concern reveal hypoechoic area measuring 0.8 x 0.2 x 0.8 cm. No significant surrounding hyperemia. No abnormal mass or fluid collection. Procedure Note David Gonzalez MD PhD - 09/23/2024 EXAMINATION: LEFT CHEST SONOGRAM HISTORY: Patient with recent port removal and drainage of the site, concern for possible infectious process. COMPARISON: None FINDINGS: Sonogram of the left chest reveals multiple morphologically normal-appearing lymph nodes in the sub-pectoral regions. Superficial soft tissues overlying the area of patient's concern reveal hypoechoic area measuring 0.8 x 0.2 x 0.8 cm. No significant surrounding hyperemia. No abnormal mass or fluid collection. IMPRESSION: Small hypoechoic area is present at the site of patient's prior drainage. This may reflect postsurgical change versus small area of cellulitis. No drainable fluid collection. Dictated by: Fabiano Grubbs MD The radiology attending physician has personally reviewed this study, and had reviewed and/or edited this written report and agrees with it. Electronically signed by: David Gonzalez MD, PHD Vinayak Olmstead MD IMG US PROCEDURES Final R esult * hCG, urine, qualitative (09/23/2024 12:14 AM CDT) HCG, ur Negative Negative Urine 09/23/2024 12:1 4 AM CDT 09/23/2024 12:24 AM CDT Vinayak Olmstead MD LAB URINE ORDERABLES Frances l Result [facility] Department [place] [address] * Blood culture Blood (09/22/2024 11:02 PM CDT) Report Final Report: No growth Blood 09/22/2024 11:0 2 PM CDT 09/22/2024 11:10 PM CDT Narrative [facility] - 09/27/2024 7:01 AM CDT Collection->Peripheral 1. Blood cultures are incubated for 4 days on a continuously monitored blood culture system. The first report of a negative culture is issued within 24 hours of receipt of the specimen in the laboratory. 2. Positive culture results are reported as soon as they are detected. 3. The most important factor for detection of microbes in the setting of bloodstream infection is the volume of blood submitted for culture. Failure to collect an optimal blood volume can result in false negative blood cultures. 4. For pediatric patients, the recommended blood volume to collect follows a weight based strategy. See the electronic test catalog for collection instructions. 5. For positive blood cultures, a rapid molecular test may be performed for organism identification using the juana ePlex blood culture identification panel for gram positive (BCID-GP) and gram negative (BCID-GN) organisms. This nucleic acid amplification test detects microbial DNA in positive blood culture broth. This assay has been cleared by the [place] Food and Drug Administration and its performance characteristics have been verified by the [facility]. For questions about this culture, contact the Microbiology Laboratory at [phone]. Interpretive data was last revised on 24. Vinayak Olmstead MD LAB MICROBIOLOGY - GENERA L ORDERABLES Final Result [facility] Department [place] [address] * Blood culture Blood (09/22/2024 11:02 PM CDT) Report Final Report: No growth Blood 09/22/2024 11:0 2 PM CDT 09/22/2024 11:12 PM CDT Narrative [facility] - 09/27/2024 7:00 AM CDT Collection->Peripheral 1. Blood cultures are incubated for 4 days on a continuously monitored blood culture system. The first report of a negative culture is issued within 24 hours of receipt of the specimen in the laboratory. 2. Positive culture results are reported as soon as they are detected. 3. The most important factor for detection of microbes in the setting of bloodstream infection is the volume of blood submitted for culture. Failure to collect an optimal blood volume can result in false negative blood cultures. 4. For pediatric patients, the recommended blood volume to collect follows a weight based strategy. See the electronic test catalog for collection instructions. 5. For positive blood cultures, a rapid molecular test may be performed for organism identification using the juana ePlex blood culture identification panel for gram positive (BCID-GP) and gram negative (BCID-GN) organisms. This nucleic acid amplification test detects microbial DNA in positive blood culture broth. This assay has been cleared by the [place] Food and Drug Administration and its performance characteristics have been verified by the [facility]. For questions about this culture, contact the Microbiology Laboratory at [phone]. Interpretive data was last revised on 24. us Vinayak Olmstead MD LAB MICROBIOLOGY - GENERA L ORDERABLES Final Result [facility] Department [place] [address] * Flow Leukemia/Lymphoma Blood (09/22/2024 9:52 PM CDT) Heath Stain Test Completed Leukemia/Lymp arianna Result See separate Surgical Pathology report. [facility] Blood 09/22/2024 9:52 PM CDT 09/22/2024 10:24 PM CDT us Ramy Aguilera MD LAB PATHOLOGY ORDERABLES Fin al Result Performing Organization Address [facility] Co de Phone Number [facility] Department [place] [address] * eGFR (09/22/2024 9:52 PM CDT) eGFR >90 >=60 mL/min/1. 73 [...] Current interpretive data was last reviewed 2021. Blood 09/22/2024 9:52 PM CDT 09/22/2024 10:03 PM CDT Vinayak Olmstead MD LAB BLOOD ORDERABLES Frances donnelly Result [facility] Department [place] [address] * (ABNORMAL) Manual Differential (09/22/2024 9:52 PM CDT) Differential Manual Cells Counted 120 [facility] Neutrophil abs 3.17 1.50 - 6.50 K/cumm [facility] Lymphocyte abs 3.11 0.80 - 3.30 K/cumm [facility] Monocyte abs 0.28 0.20 - 0.80 K/cumm [facility] Eosinophil abs 0.05 0.00 - 0.50 K/cumm [facility] Basophil abs 0.05 0.00 - 0.10 K/cumm [facility] Neutrophil pct 47.5 % [facility] Comment: Interpretive Data Percent cell count reference ranges are not reported, since discordance with absolute values may lead to misinterpretation of CBC data. Current Interpretive Data was last revised on 2017. Lymphocyte pct 40.0 % [facility] Comment: Interpretive Data Percent cell count reference ranges are not reported, since discordance with absolute values may lead to misinterpretation of CBC data. Current Interpretive Data was last revised on 2017. Monocyte pct 4.2 % [facility] Comment: Interpretive Data Percent cell count reference ranges are not reported, since discordance with absolute values may lead to misinterpretation of CBC data. Current Interpretive Data was last revised on 2017. Eosinophil pct 0.8 % [facility] Comment: Interpretive Data Percent cell count reference ranges are not reported, since discordance with absolute values may lead to misinterpretation of CBC data. Current Interpretive Data was last revised on 2017. Basophil pct 0.8 % [facility] Comment: Interpretive Data Percent cell count reference ranges are not reported, since discordance with absolute values may lead to misinterpretation of CBC data. Current Interpretive Data was last revised on 2017. Variant lymph pct 6.7(H) 0.0 - 0.0 % [facility] RBC morphology Present(A) [facility] Anisocytosis Slight(A) [facility] Platelet estimate Decreased( A) [facility] Blood 09/22/2024 9:52 PM CDT 09/22/2024 10:03 PM CDT Vinayak Olmstead MD LAB BLOOD ORDERABLES Frances l Result Performing Organization Address [facility] de Phone Number [facility] [place] [address] * (ABNORMAL) aPTT (09/22/2024 9:52 PM CDT) aPTT 27(L) 28 - 38 sec Comment: Interpretive Data Heparin therapeutic range: 66.0 - 100.0 seconds. Range based on correlation with therapeutic heparin activity range of 0.3 - 0.7 Units/mL. Current interpretive data was last revised on 2023. Blood 09/22/2024 9:52 PM CDT 09/22/2024 10:20 PM CDT Vinayak Olmstead MD LAB BLOOD ORDERABLES Frances l Result Performing Organization Address [facility] de Phone Number [facility] [place] [address] * Protime-INR (09/22/2024 9:52 PM CDT) PT 12.1 9.7 - 13.0 sec INR 1.12 0.90 - 1.[address] [facility] Comment: Interpretive data Oral anticoagulant therapeutic ranges: Venous thromboembolism prophylaxis or treatment: 2.0-3.0 CARDIOLOGY Standard range: 2.0-3.0 High-intensity range: 2.5-3.5 Refer to indication-specific guidelines for appropriate target ranges for prosthetic heart valve replacement. Current interpretive data was last revised on 2019. Blood 09/22/2024 9:52 PM CDT 09/22/2024 10:20 PM CDT Vinayak Olmstead MD LAB BLOOD ORDERABLES Frances l Result Performing Organization Address City/[facility]/ZIP Co de Phone Number [facility] [place] [address] * Fibrinogen (09/22/2024 9:52 PM CDT) Pathologist [facility] [place] Fibrinogen 212 170 - 400 mg/dL Blood 09/22/2024 9:52 PM CDT 09/22/2024 10:20 PM CDT Vinayak Olmstead MD LAB BLOOD ORDERABLES Frances donnelly Result Performing Organization Address [facility] de Phone Number [facility] [place] [address] * (ABNORMAL) CBC without differential (09/22/2024 9:52 PM CDT) [facility] WBC 6.67 3.80 - 9.90 K/cumm Hgb 11.7(L) 11.9 - 15.5 g/dL [facility] Hct 33.5(L) 35.6 - 45.5 % [facility] Plt 130(L) 150 - 400 K/cumm [facility] MPV 9.1 9.1 - 12.[address] [facility] RBC 3.68(L) 3.90 - 5.20 M/cumm [facility] MCV 91.0 81.3 - 96.[address] [facility] MCH 31.8 27.1 - 33.[address] [facility] MCHC 34.9 32.3 - 35.7 g/dL [facility] RDW CV 15.6(H) 11.1 - 14.9 % [facility] RDW SD 50.4(H) 35.7 - 48.[address] [facility] NRBC abs 0.00 0.00 - 0.01 K/cumm [facility] Blood 09/22/2024 9:52 PM CDT 09/22/2024 10:03 PM CDT Vinayak Olmstead MD LAB BLOOD ORDERABLES Frances l Result Performing Organization Address City/[facility]/ZIP Co de Phone Number [facility] Department [place] [address] * Type and screen (09/22/2024 9:52 PM CDT) Pathologist [facility] [place] Dilma, indirect Negative ABO Rh A Positive [facility] Blood 09/22/2024 9:52 PM CDT 09/22/2024 10:43 PM CDT Narrative [facility] - 09/22/2024 11:34 PM CDT Has the patient had Daratumumab or Isatuximab in the past 6 months?->Unknown Vinayak Olmstead MD LAB BLOOD BANK TEST ORDER TANIA Final Result Performing Organization Address [facility] [place] [address] * hCG, blood, quantitative (09/22/2024 9:52 PM CDT) [facility] hCG, quant <5.0 0.0 - 5.0 IUnits/L Comment: Interpretive Data Male: < 5 IU/L Non- premenopausal Female: <5 IU/L The Cosmo hCG Beta Quant assay procedure was used. Results from different manufacturers or methods may not be comparable. Serial testing should be performed using the same method. Interpretive Data was last revised on 2023 Blood 09/22/2024 9:52 PM CDT 09/22/2024 10:03 PM CDT Ramy Aguilera MD LAB BLOOD ORDERABLES Final R esult Performing Organization Address [facility] Co de Phone Number [facility] Department [place] [address] * Uric acid (09/22/2024 9:52 PM CDT) Pathologist [facility] [place] Uric acid 3.4 2.5 - 7.0 mg/dL Blood 09/22/2024 9:52 PM CDT 09/22/2024 10:03 PM CDT Vinayak Olmstead MD LAB BLOOD ORDERABLES Frances l Result Performing Organization Address City/[facility]/ZIP Co de Phone Number [facility] [place] [address] * Phosphorus (09/22/2024 9:52 PM CDT) Pathologist [facility] [place] Phosphorus, pl 2.6 2.3 - 4.5 mg/dL Blood 09/22/2024 9:52 PM CDT 09/22/2024 10:03 PM CDT Vinayak Olmstead MD LAB BLOOD ORDERABLES Frances l Result Performing Organization Address [facility] Co de Phone Number [facility] [place] [address] * Magnesium (09/22/2024 9:52 PM CDT) [facility] Magnesium 1.6 1.4 - 2.5 mg/dL Blood 09/22/2024 9:52 PM CDT 09/22/2024 10:03 PM CDT Vinayak Olmstead MD LAB BLOOD ORDERABLES Frances l Result Performing Organization Address City/[facility] Co de Phone Number [facility] [place] [address] * Lactate dehydrogenase (LD) (09/22/2024 9:52 PM CDT) Pathologist [facility] [place] Lactate dehydrogenase (LDH) 212 100 - 250 Units/L Blood 09/22/2024 9:52 PM CDT 09/22/2024 10:03 PM CDT us Vinayak Olmstead MD LAB BLOOD ORDERABLES Frances donnelly Result [facility] [place] [address] * (ABNORMAL) Comprehensive metabolic panel (09/22/2024 9:52 PM CDT) Pathologist [facility] [place] Sodium 139 135 - 145 mmol/L Potassium, pl 3.5 3.3 - 4.9 mmol/L [facility] Chloride 102 97 - 110 mmol/L [facility] CO2 27 22 - 32 mmol/L [facility] Anion gap 10 2 - 15 mmol/L [facility] BUN 3(L) 6 - 25 mg/dL [facility] Creatinine 0.64 0.60 - 1.10 mg/dL [facility] Glucose 113 70 - 199 mg/dL [facility] Comment: Interpretive Data Fasting glucose [...] classification and Diagnosis of Diabetes Diabetes Care 2021; 46: S19-S40. Current interpretive data was last revised 2022. Calcium 8.9 8.5 - 10.3 mg/dL [facility] Bilirubin, total 1.1 0.1 - 1.2 mg/dL [facility] Protein, pl 6.6 6.5 - 8.5 g/dL [facility] Albumin 4.1 3.5 - 5.0 g/dL [facility] Alk phos 184(H) 40 - 130 Units/L [facility] ALT 15 7 - 45 Units/L [facility] AST 23 10 - 45 Units/L [facility] Blood 09/22/2024 9:52 PM CDT 09/22/2024 10:03 PM CDT Vinayak Olmstead MD LAB BLOOD ORDERABLES Frances donnelly Result [facility] [place] [address] * Surgical pathology (09/22/2024 9:46 PM CDT) Peripheral Blood For Pathologist Review 09/22/2024 9:46 PM CDT 09/23/2024 3:14 PM CDT Narrative 09/24/2024 8:32 PM CDT EPIC results best viewed via link to PDF [facility] [place] [address] Note to Patients: This report may contain a detailed description of human tissue sent by a health care provider to the laboratory for pathologic evaluation. The content of this report is essential for diagnosis and may provide important critical findings. This information may be unfamiliar to patients to review without a medical professional present. It is advised that the patient review this report in the presence of a health care provider who can answer questions and explain the details. SURGICAL PATHOLOGY REPORT FINAL Patient Name: SOHA MARRERO Gender: F : 1990 (Age: 34) Address: [address] [place] [address] [facility] #: [id number] Taken:09/22/2024 Received:09/23/2024 Reported: 09/24/2024 Patient Type: [facility] Inpatient Service: [facility] Location: [place] [address] Physician(s): Ramy Aguilera M.D. Diagnosis: Peripheral blood for flow cytometry: - [id number] kappa-restricted monoclonal B cell population detected (25% of total cell events) ta/09/24/2024 11:13 By this signature, I attest that the above diagnosis is based upon my personal examination of the slides(and/or other material indicated in the diagnosis). Rodriguez Salinas M.D., Ph.D. Report Electronically Reviewed and Signed Out By Rodriguez Salinas M.D., Ph.D. 09/24/2024 20:32:24 Microscopic Description and Comment: Peripheral blood for flow cytometry: CBC data from 09/24/24 shows WBC-5.8 K/cumm, hemoglobin-11.1 g/dL, hematocrit- 32.1 %, platelets-117 K/cumm, MCV-92.8 fL, RDWCV-15.5 %. Microscopic examination of the Heath-Giemsa stained peripheral blood smear shows normocytic anemia with anisocytosis. Leukocytes are normal in number with lymphocytosis including some small cleaved lymphocytes . No significant population of circulating blasts are seen. Platelets are decreased in number and predominantly normal in morphology. A 100-cell differential count on peripheral blood shows 7% monocytes, 58% lymphocytes, 0% blasts, 34% bands/segmented neutrophils, and 1% eosinophils. Flow cytometry: Specimen quality: adequate Flow cytometry identifies an immunophenotypically abnormal B-cell population of germinal center origin comprising 25% of total cellular events. Of the CD19+ B-lymphoid cells <1% have increased forward scatter characteristics indicative of larger cell volume or size. Antigens expressed: CD10, CD45, CD19, CD20, CD22, kappa, HLA-DR Antigens not expressed: lambda, CD5, CD200, CD34, CD38, CD2, CD3, CD4, CD7, CD8, CD56, TCR-GD, CD16, CD13, CD14, CD64, CD11b, CD15, CD123, CD117, CD33, CD11c, CD25, CD103 CD3+ T-lymphocytes show no umanzor T cell antigen aberrancies and have an inverted CD4 to CD8 ratio. Natural killer cells are not increased. Plasma cells are not overtly increased. No significant CD45 dim population is identified. CD34+ blasts are not increased. Correlation with morphology (if submitted), clinical and laboratory data is recommended for final diagnosis and classification. A Heath-Giemsa stained cytospin from the flow cytometry specimen was examined for internal quality assurance supervisor final purposes. Flow cytometry was performed using antibodies to the following cellular antigens: CD45, CD34, CD19, CD20, [place], Lambda, CD10, CD5, CD200, CD38, CD2, CD3, CD4, CD7, CD8, CD56, TCR-GD, CD16, CD13, CD14, CD64, HLA-DR, CD11b, CD15, CD123, CD117, CD33. Total antigens analyzed: 27 Flow cytometry was performed to further characterize B-lymphocytes using antibodies to the following cellular antigens: CD45, CD19, CD20, CD103, CD11C, CD25. Total antigens analyzed: 6 Additional flow cytometry was performed to further characterize B-lymphocytes using antibodies to the following cellular antigens: CD45, CD19, CD10, CD22, CD123. Total antigens analyzed: 5 Stephania Marshall M.D., P.h.D. History: Patient is a 34 year old woman with history of follicular lymphoma presenting with concern for relapsed or transformed lymphoma. Operative procedure: peripheral blood flow cytometry Specimen(s) Received: A: Peripheral blood for flow cytometry Gross Description: { Not Entered } Gross Pathologist: No pathologist assigned By this signature, I attest that the above diagnosis is based upon my personal examination of the slides(and/or other material). Addenda/Procedures The performance characteristics of some immunohistochemical stains, fluorescence in-situ hybridization tests and immunophenotyping by flow cytometry cited in this report (if any) were determined by the Surgical Pathology and Flow Cytometry Departments at [facility] as part of an ongoing quality controller program and in compliance with federally mandated regulations drawn from the Clinical Laboratory Improvement Act of 1988 (CLIA '88). Some of these tests rely on the use of analyte specific reagents and are subject to specific labeling requirements by the US Food and Drug Administration. Such diagnostic tests may only be performed in a facility that is certified by the Department of Health and Human Services as a high complexity laboratory under CLIA '88. The FDA has determined that such clearance or approval is not necessary. This test is used for clinical purposes. It should not be regarded as investigational or for research. Nevertheless, federal rules concerning the medical use of analyte specific reagents require that the following disclaimer be attached to the report: This test was developed and its performance characteristics determined by the Surgical Pathology and Flow Cytometry Departments of [facility]. It has not been cleared or approved by the U. S. Food and Drug Administration. IMAGES AND SCANNED DOCUMENTS, IF INCLUDED, ONLY VIEWABLE IN PDF VERSION OF REPORT Ramy Aguilera MD LAB PATHOLOGY ORDERABLES Fin al Result * ECG 12 lead (09/22/2024 5:13 PM CDT) Ventricular Rate EKG/Min 109 BPM [facility] Atrial Rate 109 BPM [facility] ND-Interval (MSEC) 122 ms [facility] QRS-Interval (MSEC) 90 ms [facility] QT-Interval (MSEC) 354 ms [facility] QTc 476 ms [facility] [place] 61 degrees [facility] R [place] 59 degrees [facility] T [place] 9 degrees [facility] Diagnosis Sinus tachycardia Otherwise normal ECG When compared with ECG of 13-SEP-2024 15:43, No significant change was found Confirmed by Tani Yang MD ([id number]) on 09/27/2024 8:23:27 AM [facility] 09/22/2024 5:13 PM CDT 09/27/2024 8:23 AM CDT us Vinayak Olmstead MD ECG ORDERABLES Final Res ult [facility] [place] * PET/CT FDG Skull to Thigh (09/22/2024 10:35 AM CDT) Anatomical Region Laterality Modality N/A Positron Emissio n Tomography (PET) 09/22/2024 3:57 PM CDT Impressions 09/22/2024 4:28 PM CDT 1. Extensive lymphadenopathy, new in comparison to prior study, above and below the diaphragm as described above with many lymph nodes having moderate to marked FDG avidity compatible with lymphoma. In addition there is suspicion of hepatic and splenic involvement. Based on appearance of a new lesion suspected to represent lymphoma, 5PS = 5. 2. Moderate diffuse uptake in the bone marrow which may be reactive however malignant involvement cannot be ruled out. Bone marrow biopsy can be obtained if clinically indicated. The 5PS score is most useful in lymphoma types which are routinely FDG-avid. Lymphomas can be roughly grouped as follows: * Routinely FDG-avid: Hodgkin lymphoma, diffuse large B-cell lymphomas, follicular lymphoma, mantle cell lymphoma, ayad peripheral T-cell lymphoma, lymphoblastic lymphoma, and Burkitt lymphoma. * Generally not FDG-avid: Small lymphocytic lymphoma and chronic lymphocytic leukemia * Variably FDG-avid (both varying between patients and between lesions): Marginal-zone lymphomas and some T-cell lymphomas, notably cutaneous T-cell lymphomas Caution should be used when applying the 5PS score in the second and third categories above. Dictated by: Johan Banks M.D. The radiology attending physician has personally reviewed this study, and had reviewed and/or edited this written report and agrees with it. Electronically signed by: Jaya Padilla MD Narrative 09/22/2024 4:28 PM CDT EXAMINATION: TUMOR FDG-PET/CT IMAGING DATE OF STUDY: 09/22/2024 SCANNER: [facility] [employer] Software (NV1). This is a high-resolution scanner, which can result in higher SUVs (and even detection of previously unrecognized small lesions) compared to older scanners. RADIOPHARMACEUTICAL: 10.67 mCi F-18 Fluorodeoxyglucose (FDG) i.v. Injection site: Left forearm HISTORY: 34-year-old with history of follicular lymphoma diagnosed on 12/18/2022. Patient is status post bendamustine x6c and rituximab x1c however, this was completed by severe rituximab related infusion reaction. Patient has been having weight loss over the past one to 2 months and has lymphadenopathy of the neck. The study is requested for restaging after completion of therapy. Subsequent treatment strategy. TECHNIQUE: The patient's fasting blood glucose level, measured by glucometer before injection of FDG, was 109 mg/dL. After intravenous administration of FDG, noncontrast CT images were obtained for attenuation correction and for fusion with emission PET images to allow for anatomical localization of PET findings. Emission PET images were then obtained. The study was interpreted on the [employer] workstation. The mean liver SUV (reported for quality assurance supervisor final purposes) is 1.8. The total scanned area was skull base to proximal thighs. Images of the body were obtained starting 62 minutes after injection of tracer. All reported SUVs are maximum SUVs, unless otherwise specified. COMPARISON: PET/CT dated 02/04/2024 DESCRIPTORS OF LESION FDG AVIDITY: Minimal: <= blood pool Mild: > blood pool and <= liver Moderate: > liver and <= 2x SUVmax liver Moderate to marked: >2x SUVmax liver and <= 3x SUVmax liver Marked: > 3x SUVmax liver FINDINGS: Extensive lymphadenopathy, new in comparison to prior study, with moderate to marked FDG avidity involving the left cervical, bilateral supraclavicular, bilateral axillary, mediastinal, bilateral internal mamillary, subpleural, retrocrural, periportal, periaortic, and internal iliac, bilateral external iliac, bilateral inguinal lymph node chains. Left cervical lymph node seen at level 3 on axial image 26 with SUV of 7. There is a left axillary lymph node that has a short axis of 2.8 cm and SUV of 8.9 seen on axial image 62. There is a left supraclavicular lymph node measuring 1 cm and has a SUV of 6.1 seen on axial image 64. Infracarinal lymph node seen on axial image 85 with SUV of 5.3. There is diffuse uptake in both the left and right hemiliver. For example there is diffuse radiotracer uptake the left rubina-liver with a SUV of 5.0 seen on axial image 121. In the right hemiliver there is increased radiotracer uptake with SUV of 4.6 seen on axial image 137. There is splenomegaly with the spleen measuring 18 cm in the craniocaudal dimension. Uptake in spleen is higher than normal liver parenchyma. There is ill-defined conglomerate of lymph nodes in the periportal region that measures approximately 6 x 4.3 cm seen on axial image 150. This has SUV of 7.2 . There is moderate FDG activity corresponding to a node adjacent to left psoas muscle with an SUV of 6.1. This measures 3.2 x 1.5 cm and seen on axial image 183. Left inguinal node seen on axial image 234 measures 1.7 cm in short axis and has an SUV of 8.0. There is moderate diffuse FDG uptake of the bone marrow more pronounced in the iliac bones and proximal femurs. The most FDG-avid lesion is left axillary lymph node, with a maximum SUV of 8.9, and approximate axial dimensions of 2.8 cm in short axis. The uptake in this lesion is: markedly greater than liver (5PS= 5). Additional lymph node amenable to biopsy is left inguinal lymph node on image 234 with SUV of 8.0, measuring 1.7 cm in short axis . Additional CT findings: Small amount of pelvic fluid. Moderate splenomegaly. Right lower lobe atelectasis. Procedure Note Jaya Padilla MD - 09/22/2024 EXAMINATION: TUMOR FDG-PET/CT IMAGING DATE OF STUDY: 09/22/2024 SCANNER: [facility] Reflektion (NV1). This is a high-resolution scanner, which can result in higher SUVs (and even detection of previously unrecognized small lesions) compared to older scanners. RADIOPHARMACEUTICAL: 10.67 mCi F-18 Fluorodeoxyglucose (FDG) i.v. Injection site: Left forearm HISTORY: 34-year-old with history of follicular lymphoma diagnosed on 12/18/2022. Patient is status post bendamustine x6c and rituximab x1c however, this was completed by severe rituximab related infusion reaction. Patient has been having weight loss over the past one to 2 months and has lymphadenopathy of the neck. The study is requested for restaging after completion of therapy. Subsequent treatment strategy. TECHNIQUE: The patient's fasting blood glucose level, measured by glucometer before injection of FDG, was 109 mg/dL. After intravenous administration of FDG, noncontrast CT images were obtained for attenuation correction and for fusion with emission PET images to allow for anatomical localization of PET findings. Emission PET images were then obtained. The study was interpreted on the [employer] workstation. The mean liver SUV (reported for quality assurance supervisor final purposes) is 1.8. The total scanned area was skull base to proximal thighs. Images of the body were obtained starting 62 minutes after injection of tracer. All reported SUVs are maximum SUVs, unless otherwise specified. COMPARISON: PET/CT dated 02/04/2024 DESCRIPTORS OF LESION FDG AVIDITY: Minimal: <= blood pool Mild: > blood pool and <= liver Moderate: > liver and <= 2x SUVmax liver Moderate to marked: >2x SUVmax liver and <= 3x SUVmax liver Marked: > 3x SUVmax liver FINDINGS: Extensive lymphadenopathy, new in comparison to prior study, with moderate to marked FDG avidity involving the left cervical, bilateral supraclavicular, bilateral axillary, mediastinal, bilateral internal mamillary, subpleural, retrocrural, periportal, periaortic, and internal iliac, bilateral external iliac, bilateral inguinal lymph node chains. Left cervical lymph node seen at level 3 on axial image 26 with SUV of 7. There is a left axillary lymph node that has a short axis of 2.8 cm and SUV of 8.9 seen on axial image 62. There is a left supraclavicular lymph node measuring 1 cm and has a SUV of 6.1 seen on axial image 64. Infracarinal lymph node seen on axial image 85 with SUV of 5.3. There is diffuse uptake in both the left and right hemiliver. For example there is diffuse radiotracer uptake the left rubina-liver with a SUV of 5.0 seen on axial image 121. In the right hemiliver there is increased radiotracer uptake with SUV of 4.6 seen on axial image 137. There is splenomegaly with the spleen measuring 18 cm in the craniocaudal dimension. Uptake in spleen is higher than normal liver parenchyma. There is ill-defined conglomerate of lymph nodes in the periportal region that measures approximately 6 x 4.3 cm seen on axial image 150. This has SUV of 7.2 . There is moderate FDG activity corresponding to a node adjacent to left psoas muscle with an SUV of 6.1. This measures 3.2 x 1.5 cm and seen on axial image 183. Left inguinal node seen on axial image 234 measures 1.7 cm in short axis and has an SUV of 8.0. There is moderate diffuse FDG uptake of the bone marrow more pronounced in the iliac bones and proximal femurs. The most FDG-avid lesion is left axillary lymph node, with a maximum SUV of 8.9, and approximate axial dimensions of 2.8 cm in short axis. The uptake in this lesion is: markedly greater than liver (5PS= 5). Additional lymph node amenable to biopsy is left inguinal lymph node on image 234 with SUV of 8.0, measuring 1.7 cm in short axis . Additional CT findings: Small amount of pelvic fluid. Moderate splenomegaly. Right lower lobe atelectasis. IMPRESSION: 1. Extensive lymphadenopathy, new in comparison to prior study, above and below the diaphragm as described above with many lymph nodes having moderate to marked FDG avidity compatible with lymphoma. In addition there is suspicion of hepatic and splenic involvement. Based on appearance of a new lesion suspected to represent lymphoma, 5PS = 5. 2. Moderate diffuse uptake in the bone marrow which may be reactive however malignant involvement cannot be ruled out. Bone marrow biopsy can be obtained if clinically indicated. The 5PS score is most useful in lymphoma types which are routinely FDG-avid. Lymphomas can be roughly grouped as follows: * Routinely FDG-avid: Hodgkin lymphoma, diffuse large B-cell lymphomas, follicular lymphoma, mantle cell lymphoma, ayad peripheral T-cell lymphoma, lymphoblastic lymphoma, and Burkitt lymphoma. * Generally not FDG-avid: Small lymphocytic lymphoma and chronic lymphocytic leukemia * Variably FDG-avid (both varying between patients and between lesions): Marginal-zone lymphomas and some T-cell lymphomas, notably cutaneous T-cell lymphomas Caution should be used when applying the 5PS score in the second and third categories above. Dictated by: Johan Banks M.D. The radiology attending physician has personally reviewed this study, and had reviewed and/or edited this written report and agrees with it. Electronically signed by: Jaya Padilla MD Ramy Aguilera MD IMG PET PROCEDURES Final Res ult * (ABNORMAL) Drugs of Abuse Screen, Urine with Reflex Confirmation (09/22/2024 1:54 AM CDT) Amphetamine, ur Not Detected CutOff 500ng/mL Comment: Interpretive Data - Amphetamines: Samples containing greater than 500 ng/mL d-methamphetamine or other cross-reacting amphetamine compounds are reported as positive. Amphetamine immunoassays are subject to significant false positive rates due to cross-reactivity of non-amphetamine drugs. Confirmatory testing required for definitive results. Current Interpretive Data was last reviewed 2022. Barbiturates, ur Not Detected CutOff 200ng/mL [facility] Comment: Interpretive Data - Barbiturates: Samples containing greater than 200 ng/mL secobarbital or other cross-reacting barbiturate compounds are reported as positive. False positive and false negative results are possible. Confirmatory testing required for definitive results. Current Interpretive Data was last reviewed 2022. Benzodiazepines, ur Screen Positive, presumptive (A) CutOff 100ng/mL [facility] Comment: Interpretive Data - Benzodiazepines: Samples containing greater than 100 ng/mL nordiazepam or other cross-reacting compounds are reported as positive. False positive and false negative results are possible. Confirmatory testing required for definitive results. Current Interpretive Data was last reviewed 2022. Cannabinoids, ur Screen Positive, presumptive (A) CutOff 50 ng/mL [facility] Comment: Interpretive Data - Cannabinoids: Samples containing greater than 50 ng/mL delta-9 THC -COOH or other cross- reacting compounds are reported as positive. False positive and false negative results are possible. Confirmatory testing required for definitive results. Current Interpretive Data was last reviewed 2022. Cocaine, ur Not Detected CutOff 150ng/mL [facility] Comment: Interpretive Data - Cocaine: Samples containing greater than 150 ng/mL benzoylecgonine or other cross- reacting compounds are reported as positive. False positive and false negative results are possible. Confirmatory testing required for definitive results. Current Interpretive Data was last reviewed 2022. Fentanyl, Ur Not Detected CutOff 5 ng/mL [facility] Comment: Interpretive Data - Fentanyl: Samples containing greater than 5 ng/mL norfentanyl, fentanyl, or other cross-reacting fentanyl compounds are reported as positive. False positive and false negative results are possible. Confirmatory testing required for definitive results. Current Interpretive Data was last reviewed 2023. Methadone, ur Not Detected CutOff 300ng/mL [facility] Comment: Interpretive Data - Methadone: Samples containing greater than 300 ng/mL d,l-methadone or other cross-reacting compounds are reported as positive. False positive and false negative results are possible. Confirmatory testing required for definitive results. Current Interpretive Data was last reviewed 2022. Opiates, ur Not Detected CutOff 300ng/mL [facility] Comment: Interpretive Data - Opiates: Samples containing greater than 300 ng/mL morphine or other cross-reacting compounds are reported as positive. False positive and false negative results are possible. Confirmatory testing required for definitive results. Current Interpretive Data was last reviewed 2022. Oxycodone, ur Not Detected CutOff 100ng/mL [facility] Comment: Interpretive Data - Oxycodone: Samples containing greater than 100 ng/mL oxycodone or other cross-reacting compounds are reported as positive. False positive and false negative results are possible. Confirmatory testing required for definitive results. Current Interpretive Data was last reviewed 2022. Phencyclidine, ur Not Detected CutOff 25 ng/mL [facility] Comment: Interpretive Data - Phencyclidine: Samples containing greater than 25 ng/mL phencyclidine or other cross-reacting compounds are reported as positive. False positive and false negative results are possible. Confirmatory testing required for definitive results. Current Interpretive Data was last reviewed 2022. Urine Creatinine 52 mg/dL [facility] Comment: Interpretive Data Urine Creatinine: < 10 mg/dL is extremely dilute = or > 10 but < 20 mg/dL is dilute = or > 20 mg/dL is normal Current Interpretive Data was last revised on 2017. Urine 09/22/2024 1:54 AM CDT 09/22/2024 1:54 AM CDT Narrative [facility] - 09/22/2024 2:43 AM CDT Drug of Abuse screening is performed by immunoassay for medical purposes only. This is not to be used for Pain Management purposes. If Detected, confirmation testing will be performed for Amphetamines, Cocaine, Fentanyl, Methadone, Opiates, Oxycodone or Phencyclidine. us Ramy Aguilera MD LAB URINE ORDERABLES Final R esult [facility] [place] [address] * (ABNORMAL) Urinalysis reflex to microscopic and culture Urine (09/22/2024 1:54 AM CDT) Color, ur Straw Yellow Clarity, ur Clear Clear [facility] Specific gravity, ur 1.007 1.003 - 1.[address] [facility] pH, urine 7.[address] [facility] Comment: Interpretive Data U rine pH is affected by diet, medications, systemic acid-base disturbances, and renal tubular function. pH may affect urinary stone formation. For example, urine pH below 6.0 may help reduce the tendency for calcium phosphate stones and pH greater than 6.0 may reduce the tendency for uric acid stone formation. Source: [facility] [employer] Current Interpretive Data was last revised on 2017 Protein, ur ql Negative Negative [facility] Glucose, ur ql Negative Negative [facility] Ketones, ur Negative Negative [facility] Bilirubin, ur Negative Negative [facility] Blood, ur Negative Negative [facility] Urobilinogen, ur <2.0 <2.0 mg/dL [facility] Nitrite, ur Positive(A) Negative [facility] Leukocyte esterase, ur Trace(A) Negative [facility] UA reflex comment Reflex to microscopic UA will be performed. [facility] Urine 09/22/2024 1:54 AM CDT 09/22/2024 2:00 AM CDT Terence Rader MD LAB MICROBIOLOGY - GENERAL ORD ERABLES Final Result Performing Organization Address City/[facility]/ZIP Co de Phone Number [facility] [place] [address] * (ABNORMAL) Urinalysis, microscopic only (09/22/2024 1:54 AM CDT) WBC, ur 6-10(A) 0 - 5 /HPF RBC, ur 0-2 0 - 2 /HPF [facility] Epithelial cells, squamous, ur 1-5 0 - 5 /HPF [facility] Bacteria, ur Trace(A) [facility] Culture Reflex Comment Reflex conditions for urine culture (WBC >10) not met. [facility] Urine 09/22/2024 1:54 AM CDT 09/22/2024 2:00 AM CDT Terence Rader MD LAB URINE ORDERABLES Final Res ult Performing Organization Address [facility] Co de Phone Number [facility]N [facility] Department [place] [address] * eGFR (09/22/2024 12:34 AM CDT) eGFR >90 >=60 mL/min/1. 73 m2 [...] Current interpretive data was last reviewed 2021. Blood 09/22/2024 12:3 4 AM CDT 09/22/2024 1:33 AM CDT us Ramy Aguilera MD LAB BLOOD ORDERABLES Final R esult [facility] [place] [address] * Differential, auto (09/22/2024 12:34 AM CDT) Neutrophil abs 2.39 1.50 - 6.50 K/cumm Imm gran abs 0.02 0.00 - 0.10 K/cumm [facility] Lymphocyte abs 2.34 0.80 - 3.30 K/cumm [facility] Monocyte abs 0.29 0.20 - 0.80 K/cumm [facility] Eosinophil abs 0.05 0.00 - 0.50 K/cumm [facility] Basophil abs 0.03 0.00 - 0.10 K/cumm [facility] Neutrophil pct 46.6 % [facility] Comment: Interpretive Data Percent cell count reference ranges are not reported, since discordance with absolute values may lead to misinterpretation of CBC data. Current Interpretive Data was last revised on 2017. Imm gran pct 0.4 % [facility] Comment: Interpretive Data Percent cell count reference ranges are not reported, since discordance with absolute values may lead to misinterpretation of CBC data. Current Interpretive Data was last revised on 2017. Lymphocyte pct 45.7 % [facility] Comment: Interpretive Data Percent cell count reference ranges are not reported, since discordance with absolute values may lead to misinterpretation of CBC data. Current Interpretive Data was last revised on 2017. Monocyte pct 5.7 % [facility] Comment: Interpretive Data Percent cell count reference ranges are not reported, since discordance with absolute values may lead to misinterpretation of CBC data. Current Interpretive Data was last revised on 2017. Eosinophil pct 1.0 % [facility] Comment: Interpretive Data Percent cell count reference ranges are not reported, since discordance with absolute values may lead to misinterpretation of CBC data. Current Interpretive Data was last revised on 2017. Basophil pct 0.6 % [facility] Comment: Interpretive Data Percent cell count reference ranges are not reported, since discordance with absolute values may lead to misinterpretation of CBC data. Current Interpretive Data was last revised on 2017. Blood 09/22/2024 12:3 4 AM CDT 09/22/2024 1:14 AM CDT us Terence Rader MD LAB BLOOD ORDERABLES Final Res ult [facility] Department [place] [address] * (ABNORMAL) CBC with auto differential (09/22/2024 12:34 AM CDT) WBC 5.12 3.80 - 9.90 K/cumm Hgb 11.6(L) 11.9 - 15.5 g/dL [facility] Hct 32.5(L) 35.6 - 45.5 % [facility] Plt 144(L) 150 - 400 K/cumm [facility] MPV 9.1 9.1 - 12.[address] [facility] RBC 3.58(L) 3.90 - 5.20 M/cumm [facility] MCV 90.8 81.3 - 96.[address] [facility] MCH 32.4 27.1 - 33.[address] [facility] MCHC 35.7 32.3 - 35.7 g/dL [facility] RDW CV 15.5(H) 11.1 - 14.9 % [facility] RDW SD 49.6(H) 35.7 - 48.[address] [facility] NRBC abs 0.00 0.00 - 0.01 K/cumm [facility] Blood 09/22/2024 12:3 4 AM CDT 09/22/2024 1:14 AM CDT Terence Rader MD LAB BLOOD ORDERABLES Final Res ult Performing Organization Address [facility] Co de Phone Number [facility] [place] [address] * Uric acid (09/22/2024 12:34 AM CDT) Uric acid 3.1 2.5 - 7.0 mg/dL Blood 09/22/2024 12:3 4 AM CDT 09/22/2024 1:17 AM CDT Terence Rader MD LAB BLOOD ORDERABLES Final Res ult Performing Organization Address [facility] de Phone Number [facility] [place] [address] * Phosphorus (09/22/2024 12:34 AM CDT) Phosphorus, pl 3.0 2.3 - 4.5 mg/dL Blood 09/22/2024 12:3 4 AM CDT 09/22/2024 1:17 AM CDT Terence aRder MD LAB BLOOD ORDERABLES Final Res ult Performing Organization Address [facility] de Phone Number [facility] [place] [address] * (ABNORMAL) Magnesium (09/22/2024 12:34 AM CDT) Magnesium 1.3(L) 1.4 - 2.5 mg/dL Blood 09/22/2024 12:3 4 AM CDT 09/22/2024 1:17 AM CDT Ramy Aguilera MD LAB BLOOD ORDERABLES Final R esult Performing Organization Address City/[facility]/ZIP Co de Phone Number JOSELYN CAVAZOS [facility] [place] [address] * Lactate dehydrogenase (LD) (09/22/2024 12:34 AM CDT) Pathologist [facility] [place] Lactate dehydrogenase (LDH) 245 100 - 250 Units/L Blood 09/22/2024 12:3 4 AM CDT 09/22/2024 1:17 AM CDT Ramy Aguilera MD LAB BLOOD ORDERABLES Final R esult Performing Organization Address [facility] [facility] Co de Phone Number JOSELYN CAVAZOS [facility] Department [place] [address] * (ABNORMAL) Comprehensive metabolic panel (09/22/2024 12:34 AM CDT) [facility] Sodium 139 135 - 145 mmol/L Potassium, pl 2.9(L) 3.3 - 4.9 mmol/L [facility] Chloride 100 97 - 110 mmol/L [facility] CO2 26 22 - 32 mmol/L [facility] Anion gap 13 2 - 15 mmol/L [facility] BUN 3(L) 6 - 25 mg/dL [facility] Creatinine 0.66 0.60 - 1.10 mg/dL [facility] Glucose 90 70 - 199 mg/dL [facility] Comment: Interpretive Data Fasting glucose [...] classification and Diagnosis of Diabetes Diabetes Care 2021; 46: S19-S40. Current interpretive data was last revised 2022. Calcium 8.9 8.5 - 10.3 mg/dL [facility] Bilirubin, total 0.9 0.1 - 1.2 mg/dL [facility] Protein, pl 6.7 6.5 - 8.5 g/dL [facility] Albumin 3.9 3.5 - 5.0 g/dL [facility] Alk phos 186(H) 40 - 130 Units/L [facility] ALT 16 7 - 45 Units/L [facility] AST 30 10 - 45 Units/L [facility] Blood 09/22/2024 12:3 4 AM CDT 09/22/2024 1:17 AM CDT us Ramy Aguilera MD LAB BLOOD ORDERABLES Final R esult [facility] Department [place] [address] * POCT Rapid HIV Antibody Community Screening-Deann Eligible (09/21/2024 9:55 PM CDT) [facility] Rapid HIV, POC Negative Negative Lot Number [id number] QC Control Line Acceptable Blood 09/21/2024 9:55 PM CDT us Lety Palafox MD POINT OF CARE TEST OR DERABLES Final Result * Blastomyces antibody, EIA, serum Blood (09/17/2024 5:49 PM CDT) [facility] Blastomyces Antibody Negative Negative [facility] Comment: A single negative result does not exclude the diagnosis of blastomycosis. Repeat testing on a new sample in 7-14 days if clinically indicated. Test Performed by: [place] [id number] [place] [id number] Oral And Maxillofacial Surgery: Trice Obrien Ph.D.; CLIA# [id number] Blood 09/17/2024 5:49 PM CDT 09/17/2024 7:15 PM CDT us Jovanny Goss MD LAB MICROBIOLOGY - GENERAL ORDER TANIA Final Result [facility] [place] [address] [facility] ref Lab * Check Sample (09/17/2024 5:49 PM CDT) ABO Rh A Positive [facility] HCLL OTHER 09/17/2024 5:49 PM CDT 09/17/2024 5:59 PM CDT us Ramy Aguilera MD LAB BLOOD ORDERABLES [place] [address] [facility] * eGFR (09/17/2024 4:51 PM CDT) eGFR >90 >=60 mL/min/1. 73 [...] Current interpretive data was last reviewed 2021. Blood 09/17/2024 4:51 PM CDT 09/17/2024 5:02 PM CDT us Jovanny Goss MD LAB BLOOD ORDERABLES Final Resul t [facility] [place] [address] * (ABNORMAL) Differential, auto (09/17/2024 4:51 PM CDT) Neutrophil abs 2.39 1.50 - 6.50 K/cumm Imm gran abs 0.02 0.00 - 0.10 K/cumm [facility] Lymphocyte abs 3.57(H) 0.80 - 3.30 K/cumm [facility] Monocyte abs 0.33 0.20 - 0.80 K/cumm [facility] Eosinophil abs 0.07 0.00 - 0.50 K/cumm [facility] Basophil abs 0.04 0.00 - 0.10 K/cumm [facility] Neutrophil pct 37.3 % [facility] Comment: Interpretive Data Percent cell count reference ranges are not reported, since discordance with absolute values may lead to misinterpretation of CBC data. Current Interpretive Data was last revised on 2017. Imm gran pct 0.3 % [facility] Comment: Interpretive Data Percent cell count reference ranges are not reported, since discordance with absolute values may lead to misinterpretation of CBC data. Current Interpretive Data was last revised on 2017. Lymphocyte pct 55.6 % [facility] Comment: Interpretive Data Percent cell count reference ranges are not reported, since discordance with absolute values may lead to misinterpretation of CBC data. Current Interpretive Data was last revised on 2017. Monocyte pct 5.1 % [facility] Comment: Interpretive Data Percent cell count reference ranges are not reported, since discordance with absolute values may lead to misinterpretation of CBC data. Current Interpretive Data was last revised on 2017. Eosinophil pct 1.1 % [facility] Comment: Interpretive Data Percent cell count reference ranges are not reported, since discordance with absolute values may lead to misinterpretation of CBC data. Current Interpretive Data was last revised on 2017. Basophil pct 0.6 % CERNER [facility] Comment: Interpretive Data Percent cell count reference ranges are not reported, since discordance with absolute values may lead to misinterpretation of CBC data. Current Interpretive Data was last revised on 2017. Blood 09/17/2024 4:51 PM CDT 09/17/2024 5:03 PM CDT Jovanny Goss MD LAB BLOOD ORDERABLES Final Resul t Performing Organization Address [facility]/ZIP Co de Phone Number [facility] Department [place] [address] * (ABNORMAL) CBC with auto differential (09/17/2024 4:51 PM CDT) WBC 6.42 3.80 - 9.90 K/cumm Hgb 11.5(L) 11.9 - 15.5 g/dL [facility] Hct 33.1(L) 35.6 - 45.5 % [facility] Plt 172 150 - 400 K/cumm [facility] MPV 9.1 9.1 - 12.[address] [facility] RBC 3.63(L) 3.90 - 5.20 M/cumm [facility] MCV 91.2 81.3 - 96.[address] [facility] MCH 31.7 27.1 - 33.[address] [facility] MCHC 34.7 32.3 - 35.7 g/dL [facility] RDW CV 15.1(H) 11.1 - 14.9 % [facility] RDW SD 50.4(H) 35.7 - 48.[address] [facility] NRBC abs 0.00 0.00 - 0.01 K/cumm [facility] Blood 09/17/2024 4:51 PM CDT 09/17/2024 5:03 PM CDT us Jovanny Goss MD LAB BLOOD ORDERABLES Final Resul t [facility] Department [place] [address] * Type and screen (09/17/2024 4:51 PM CDT) Dilma, indirect Negative ABO Rh A Positive [facility] Blood 09/17/2024 4:51 PM CDT 09/17/2024 5:02 PM CDT Narrative [facility] - 09/17/2024 5:54 PM CDT Has the patient had Daratumumab or Isatuximab in the past 6 months?->Unknown us Jovanny Goss MD LAB BLOOD BANK TEST ORDERABLES F inal Result Performing Organization Address [facility] Co de Phone Number [facility] [place] [address] * (ABNORMAL) Phosphorus (09/17/2024 4:51 PM CDT) Pathologist [facility] Phosphorus, pl 2.2(L) 2.3 - 4.5 mg/dL Blood 09/17/2024 4:51 PM CDT 09/17/2024 5:02 PM CDT us Jovanny Goss MD LAB BLOOD ORDERABLES Final Resul t Performing Organization Address [facility] de Phone Number [facility] [place] [address] * Magnesium (09/17/2024 4:51 PM CDT) [facility] Magnesium 1.7 1.4 - 2.5 mg/dL Blood 09/17/2024 4:51 PM CDT 09/17/2024 5:02 PM CDT us Jovanny Goss MD LAB BLOOD ORDERABLES Final Resul t Performing Organization Address [facility] [place] [address] * (ABNORMAL) Comprehensive metabolic panel (09/17/2024 4:51 PM CDT) [facility] Sodium 143 135 - 145 mmol/L Potassium, pl 3.0(L) 3.3 - 4.9 mmol/L [facility] Chloride 102 97 - 110 mmol/L [facility] CO2 31 22 - 32 mmol/L [facility] Anion gap 10 2 - 15 mmol/L [facility] BUN 3(L) 6 - 25 mg/dL [facility] Creatinine 0.63 0.60 - 1.10 mg/dL [facility] Glucose 88 70 - 199 mg/dL [facility] Comment: Interpretive Data Fasting glucose [...] classification and Diagnosis of Diabetes Diabetes Care 2021; 46: S19-S40. Current interpretive data was last revised 2022. Calcium 8.4(L) 8.5 - 10.3 mg/dL [facility] Bilirubin, total 0.4 0.1 - 1.2 mg/dL [facility] Protein, pl 6.1(L) 6.5 - 8.5 g/dL [facility] Albumin 3.7 3.5 - 5.0 g/dL [facility] Alk phos 165(H) 40 - 130 Units/L [facility] ALT 9 7 - 45 Units/L [facility] AST 20 10 - 45 Units/L [facility] Blood 09/17/2024 4:51 PM CDT 09/17/2024 5:02 PM CDT us Jovanny Goss MD LAB BLOOD ORDERABLES Final Resul t [facility] Department [place] [address] * eGFR (09/16/2024 10:20 AM CDT) eGFR >90 >=60 mL/min/1. 73 m2 [...] was last reviewed 2021. Testing performed by: [address] [address] Blood 09/16/2024 10:2 0 AM CDT 09/16/2024 10:23 AM CDT us Ramy Aguilera MD LAB BLOOD ORDERABLES Final R esult [facility] [address] [facility] Department [place] [address] * Differential, auto (09/16/2024 10:20 AM CDT) Neutrophil abs 3.45 1.50 - 6.50 K/cumm Comment:Testing performed by : [address] [address] Imm gran abs 0.02 0.00 - 0.10 K/cumm JOSELYN Comment:Testing performed by : [address] [address] Lymphocyte abs 2.81 0.80 - 3.30 K/cumm JOSELYN Comment:Testing performed by : [address] [address] Monocyte abs 0.37 0.20 - 0.80 K/cumm JOSELYN Comment:Testing performed by : [address] [address] Eosinophil abs 0.08 0.00 - 0.50 K/cumm [facility] Comment:Testing performed by : [address] [address] Basophil abs 0.04 0.00 - 0.10 K/cumm JOSEYLN Comment:Testing performed by : [address] [address] Neutrophil pct 50.9 % [facility] Comment: Interpretive Data Percent cell count reference ranges are not reported, since discordance with absolute values may lead to misinterpretation of CBC data. Current Interpretive Data was last revised on 2017. Testing performed by: [address] [address] Imm gran pct 0.3 % [facility] Comment: Interpretive Data Percent cell count reference ranges are not reported, since discordance with absolute values may lead to misinterpretation of CBC data. Current Interpretive Data was last revised on 2017. Testing performed by: [address] [address] Lymphocyte pct 41.5 % [facility] Comment: Interpretive Data Percent cell count reference ranges are not reported, since discordance with absolute values may lead to misinterpretation of CBC data. Current Interpretive Data was last revised on 2017. Testing performed by: [address] [address] Monocyte pct 5.5 % [facility] Comment: Interpretive Data Percent cell count reference ranges are not reported, since discordance with absolute values may lead to misinterpretation of CBC data. Current Interpretive Data was last revised on 2017. Testing performed by: [address] [address] Eosinophil pct 1.2 % [facility] Comment: Interpretive Data Percent cell count reference ranges are not reported, since discordance with absolute values may lead to misinterpretation of CBC data. Current Interpretive Data was last revised on 2017. Testing performed by: [address] [address] Basophil pct 0.6 % [facility] Comment: Interpretive Data Percent cell count reference ranges are not reported, since discordance with absolute values may lead to misinterpretation of CBC data. Current Interpretive Data was last revised on 2017. Testing performed by: [address] [address] Blood 09/16/2024 10:2 0 AM CDT 09/16/2024 10:23 AM CDT us Ramy Aguilera MD LAB BLOOD ORDERABLES Final R esult [facility] [address] [facility] Department [place] [address] * (ABNORMAL) CBC with auto differential (09/16/2024 10:20 AM CDT) WBC 6.77 3.80 - 9.90 K/cumm Comment:Testing performed by : [address] [address] Hgb 12.2 11.9 - 15.5 g/dL JOSELYN Comment:Testing performed by : [address] [address] Hct 35.4(L) 35.6 - 45.5 % JOSELYN Comment:Testing performed by : [address] [address] Plt 171 150 - 400 K/cumm JOSELYN Comment:Testing performed by : [address] [address] MPV 9.0(L) 9.1 - 12.3 fL JOSELYN Comment:Testing performed by : [address] [address] RBC 3.90 3.90 - 5.20 M/cumm JOSELYN Comment:Testing performed by : [address] [address] MCV 90.8 81.3 - 96.4 fL JOSELYN Comment:Testing performed by : [address] [address] MCH 31.3 27.1 - 33.3 pg JOSELYN VAZQUEZ Comment:Testing performed by : [address] [address] MCHC 34.5 32.3 - 35.7 g/dL JOSELYN Comment:Testing performed by : [address] [address] RDW CV 15.3(H) 11.1 - 14.9 % JOSELYN Comment:Testing performed by : [address] [address] RDW SD 49.8(H) 35.7 - 48.1 fL JOSELYN Comment:Testing performed by : [address] [address] NRBC abs 0.00 0.00 - 0.01 K/cumm JOSELYN Comment:Testing performed by : [address] [address] ANC Prelim 3.45 1.50 - 6.50 K/cumm JOSELYN Comment: Interpretive Data The rapid ANC is a preliminary automated count and may vary from the final ANC (Neut Abs) reported in the WBC differential that follows. Current interpretive data was last revised 2024. Testing performed by: [address] [address] Blood 09/16/2024 10:2 0 AM CDT 09/16/2024 10:23 AM CDT us Ramy Aguilera MD LAB BLOOD ORDERABLES Final R esult Performing Organization Address [facility]/State/ZIP Co de Phone Number [facility] [address] [facility] Department of Laboratories [place], [place] [id number] * Lactate dehydrogenase (LD) (09/16/2024 10:20 AM CDT) Lactate dehydrogenase (LDH) 186 100 - 250 Units/L Comment:Testing performed by : [address] [address] Blood 09/16/2024 10:2 0 AM CDT 09/16/2024 10:23 AM CDT Ramy Aguilera MD LAB BLOOD ORDERABLES Final R esult JOSELYN [address] [facility] Department [place] [address] * (ABNORMAL) Comprehensive metabolic panel (09/16/2024 10:20 AM CDT) Sodium 143 135 - 145 mmol/L Comment:Testing performed by : [address] [address] Potassium, pl 3.4 3.3 - 4.9 mmol/L JOSELYN Comment:Testing performed by : [address] [address] Chloride 101 97 - 110 mmol/L JOSELYN Comment:Testing performed by : [address] [address] CO2 30 22 - 32 mmol/L JOSELYN Comment:Testing performed by : [address] [address] Anion gap 12 2 - 15 mmol/L JOSELYN Comment:Testing performed by : [address] [address] BUN 4(L) 6 - 25 mg/dL JOSELYN Comment:Testing performed by : [address] [address] Creatinine 0.60 0.60 - 1.10 mg/dL JOSELYN Comment:Testing performed by : [address] [address] Glucose 101 70 - 199 mg/dL JOSELYN Comment: Interpretive [...] classification and Diagnosis of Diabetes Diabetes Care 2021; 46: S19-S40. Current interpretive data was last revised 2022. Testing performed by: [address] [address] Calcium 8.8 8.5 - 10.3 mg/dL JOSELYN Comment:Testing performed by : [facility], [address] [place] [address]., [address] Bilirubin, total 0.6 0.1 - 1.2 mg/dL JOSELYN Comment:Testing performed by : [address] [address] Protein, pl 6.1(L) 6.5 - 8.5 g/dL JOSELYN Comment:Testing performed by : [address] [address] Albumin 4.2 3.5 - 5.0 g/dL JOSELYN Comment:Testing performed by : [address] [address] Alk phos 173(H) 40 - 130 Units/L JOSELYN Comment:Testing performed by : [address] [address] ALT 7 7 - 45 Units/L JOSELYN Comment:Testing performed by : [address] [address] AST 19 10 - 45 Units/L JOSELYN Comment:Testing performed by : [address] [address] Blood 09/16/2024 10:2 0 AM CDT 09/16/2024 10:23 AM CDT us Ramy Aguilera MD LAB BLOOD ORDERABLES Final R esult JOSELYN [address] [facility] Department [place] [address] * Surgical pathology (09/15/2024 9:55 AM CDT) Tissue (Miscellaneous) 09/15/2024 9:55 AM CDT 09/15/2024 9:55 AM CDT Narrative [facility] - 09/29/2024 8:48 PM CDT EPIC results best viewed via link to PDF [facility] Pathology Consult Service [address], [place] [address] Note to Patients: This report may contain a detailed description of human tissue sent by a health care provider to the laboratory for pathologic evaluation. The content of this report is essential for diagnosis and may provide important critical findings. This information may be unfamiliar to patients to review without a medical professional present. It is advised that the patient review this report in the presence of a health care provider who can answer questions and explain the details. SURGICAL PATHOLOGY REPORT * Consult Report * [facility] is providing an additional review of previously collected tissue. FINAL Patient Name: SOHA MARRERO Address: [address] [place] [address] Gender: F : 1990 (Age: 34) Hospital #: [id number] Patient Type: [facility] Location: UNKNOWN Taken: 09/15/2024 Received: 09/15/2024 Accessioned: 09/16/2024 Reported: 09/29/2024 Physician(s): Ramy Aguilera M.D. [facility] Department of Pathology [address] [place] [id number] P: [phone] F: [phone] Diagnosis: Consult material received from [facility], [place], [place] (OSC: [id number]; 12/18/2022). Lymph node, axillary, core biopsy: - Follicular lymphoma, low grade in this biopsy ji/09/17/2024 12:56 By this signature, I attest that the above diagnosis is based upon my personal examination of the slides(and/or other material indicated in the diagnosis). Yue Castillo M.D. Report Electronically Reviewed and Signed Out By Yue Castillo M.D. 09/29/2024 20:48:38 Microscopic Description and Comment: Histology: Microscopic examination reveals lymph node architecture effaced by a nodular proliferation composed predominantly of small lymphocytes with irregular nuclear contours, condensed chromatin and indistinct nucleoli. Admixed are scattered larger nucleolated lymphoid forms consistent with centroblasts (less than 15 per hpf). No diffuse proliferation of large atypical cells is identified. Stains were performed at [facility] on the provided outside block: Neoplastic lymphocytes are [id number] B-cells co-expressing CD10, BCL-6 and BCL-2. Immunostain for CD21 highlights follicular dendritic meshwork. Immunostain for CD3 highlights T- cells. Proliferation rate, as assessed by immunostain for Ki-67, is approximately 20%. CyclinD1 is negative. PAX5 is positive. Flow cytometry (performed outside) [place]uitaque light chain restricted CD10 positive B-cell population detected (99% of overall events). History: The patient is a 34-year-old woman with outside history of follicular lymphoma. Materials Received: Received for review are two slides labeled [id number], accompanied by a corresponding pathology report. The material originates from [place], [place]. Selected slide(s) may be digitally scanned for our files, and all materials are returned to the referring institution, along with a copy of our final report. Any testing required for diagnostic purposes was performed in the Department of Pathology and Immunology at [facility], [address] [place] [id number] CLIA # [id number] The performance characteristics of the testing cited in this report (if any) were determined by the [facility] Department of Pathology and Immunology [facility], as part of an ongoing quality controller program and in compliance with federally mandated regulations drawn from the Clinical Laboratory Improvement Act of 1988 (CLIA '88). Some of these tests rely on the use of analyte specific reagents (ASR) and are subject to specific labeling requirements by the US Food and Drug Administration. Such diagnostic tests may only be performed in a facility that is certified by the Department of Health and Human Services as a high complexity laboratory under CLIA '88. The FDA has determined that such clearance or approval is not necessary. ASRs should not be regarded as investigational or for research. ASRs were developed and the performance characteristics determined by the [facility], [facility] Department of Pathology and Immunology. It has not been cleared or approved by the U.S. Food and Drug Administration. Any test designated as LDT was developed and its performance characteristics determined by [facility]. It has not been cleared or approved by the FDA. This test is used for clinical purposes and should not be regarded as investigational or for research. Report images and/or scanned reports, if included, only viewable in PDF version of report. us Ramy Aguilera MD LAB PATHOLOGY ORDERABLES Fin al Result [facility] [address] [place] [address] * CT Body Outside Reference (09/15/2024 9:49 AM CDT) Impressions [facility] - 09/15/2024 9:49 AM CDT These images are for Reference purposes only and have not been reviewed by [facility] Radiology. There will be no report generated by a [facility] Radiologist. Narrative [facility] - 09/15/2024 9:49 AM CDT EXAMINATION: Images For Reference Purposes Only us Ramy Aguilera MD IMG CT PROCEDURES Final Resu lt Performing Organization Address [facility] Co de Phone Number [email or web address] * CT Body Outside Reference (09/15/2024 9:48 AM CDT) Impressions [facility] - 09/15/2024 9:48 AM CDT These images are for Reference purposes only and have not been reviewed by [facility] Radiology. There will be no report generated by a [facility] Radiologist. Narrative [facility] - 09/15/2024 9:48 AM CDT EXAMINATION: Images For Reference Purposes Only us Ramy Aguilera MD IMG CT PROCEDURES Final Resu lt Performing Organization Address City/[facility]/ZIP Co de Phone Number [email or web address] * CT Body Outside Reference (09/15/2024 9:47 AM CDT) Impressions [facility] - 09/15/2024 9:47 AM CDT These images are for Reference purposes only and have not been reviewed by [facility] Radiology. There will be no report generated by a [facility] Radiologist. Narrative [facility] - 09/15/2024 9:47 AM CDT EXAMINATION: Images For Reference Purposes Only us Ramy Aguilera MD IMG CT PROCEDURES Final Resu lt Performing Organization Address [facility] de Phone Number [email or web address] * CT Body Outside Reference (09/15/2024 9:47 AM CDT) Impressions [facility] - 09/15/2024 9:47 AM CDT These images are for Reference purposes only and have not been reviewed by [facility] Radiology. There will be no report generated by a [facility] Radiologist. Narrative [facility] - 09/15/2024 9:47 AM CDT EXAMINATION: Images For Reference Purposes Only us Ramy Aguilera MD IMG CT PROCEDURES Final Resu lt Performing Organization Address [facility] de Phone Number [email or web address] * PET Outside Reference (09/15/2024 9:46 AM CDT) Impressions RAD_PACS_[facility] - 09/15/2024 9:46 AM CDT These images are for Reference purposes only and have not been reviewed by [facility] Radiology. There will be no report generated by a [facility] Radiologist. Narrative RAD_PACS[facility] - 09/15/2024 9:46 AM CDT EXAMINATION: Images For Reference Purposes Only us Ramy Aguilera MD IMG PET PROCEDURES Final Res ult Performing Organization Address [facility] de Phone Number [facility] * CT Body Outside Reference (09/15/2024 9:45 AM CDT) Impressions [facility] - 09/15/2024 9:45 AM CDT These images are for Reference purposes only and have not been reviewed by [facility] Radiology. There will be no report generated by a [facility] Radiologist. Narrative [facility]_PACS[facility] - 09/15/2024 9:45 AM CDT EXAMINATION: Images For Reference Purposes Only us Ramy Aguilera MD IMG CT PROCEDURES Final Resu lt Performing Organization Address [facility] de Phone Number [facility]_P[facility] * PET Outside Reference (09/15/2024 9:45 AM CDT) Impressions JONA_RANGEL_BJAntonio - 09/15/2024 9:45 AM CDT These images are for Reference purposes only and have not been reviewed by [facility] Radiology. There will be no report generated by a [facility] Radiologist. Narrative RAD_RANGEL_BJAntonio - 09/15/2024 9:45 AM CDT EXAMINATION: Images For Reference Purposes Only us Ramy Aguilera MD IMG PET PROCEDURES Final Res ult Performing Organization Address [facility] de Phone Number [facility]_PACS[facility] * CT Body Outside Reference (09/15/2024 9:44 AM CDT) Impressions CINDA_HARSHA - 09/15/2024 9:44 AM CDT These images are for Reference purposes only and have not been reviewed by [facility] Radiology. There will be no report generated by a [facility] Radiologist. Narrative RAD_RANGEL_HARSHA - 09/15/2024 9:44 AM CDT EXAMINATION: Images For Reference Purposes Only us Ramy Aguilera MD IMG CT PROCEDURES Final Resu lt Performing Organization Address [facility] de Phone Number [facility]_PACS[facility] * Urinalysis reflex to microscopic and culture Urine (09/13/2024 7:18 PM CDT) Color, ur Yellow Yellow Comment:Testing performed by : [address] [address] Clarity, ur Clear Clear JOSELYN Comment:Testing performed by : [address] [address] Specific gravity, ur 1.009 1.003 - 1.030 JOSELYN Comment:Testing performed by : [address] [address] pH, urine 6.5 JOSELYN Comment: Interpretive Data U rine pH is affected by diet, medications, systemic acid-base disturbances, and renal tubular function. pH may affect urinary stone formation. For example, urine pH below 6.0 may help reduce the tendency for calcium phosphate stones and pH greater than 6.0 may reduce the tendency for uric acid stone formation. Source: [facility] [employer] Current Interpretive Data was last revised on 2017 Testing performed by: [facility], [address] [place] [address], [place]., [address] Protein, ur ql Negative Negative JOSELYN Comment:Testing performed by : [address], [place]., [address] Glucose, ur ql Negative Negative JOSELYN Comment:Testing performed by : [address], [place]., [address] Ketones, ur Negative Negative JOSELYN Comment:Testing performed by : [address], [place]., [address] Bilirubin, ur Negative Negative JOSELYN Comment:Testing performed by : [address], [place]., [address] Blood, ur Negative Negative JOSELYN Comment:Testing performed by : [address], [place]., [address] Urobilinogen, ur <2.0 <2.0 mg/dL JOSELYN Comment:Testing performed by : [address], [place]., [address] Nitrite, ur Negative Negative JOSELYN Comment:Testing performed by : [address], [place]., [address] Leukocyte esterase, ur Negative Negative JOSELYN Comment:Testing performed by : [address], [place]., [address] UA reflex comment Reflex conditions for microscopic UA and culture not met. JOSELYN Comment:Testing performed by : [address], [place]., [address] Urine 09/13/2024 7:18 PM CDT 09/13/2024 7:22 PM CDT us Mario Murray DO LAB MICROBIOLOGY - GENERAL ORD ERABLES Final Result Performing Organization Address City/State/[facility] de Phone Number JOSELYN [address] [facility] [place] [address] * POCT glucose (09/13/2024 7:10 PM CDT) [facility] Glucose, POC 104 70 - 199 mg/dL Comment:Testing performed by : [facility], [address] [place] [address]., [address] Glucose comment 1 RN/MD Notified [facility] Comment:Testing performed by : [facility], [address] [place] [address]., [address] Blood 09/13/2024 7:10 PM CDT 09/13/2024 7:10 PM CDT us Notinfile Unknown LAB POCT ORDERABLES - DEVICE F inal Result Performing Organization Address [facility] de Phone Number [facility] [address] [facility] [place] [address] * ECG 12 lead (09/13/2024 3:43 PM CDT) [facility] Ventricular Rate EKG/Min 103 BPM [facility] Atrial Rate 103 BPM [facility] ND-Interval (MSEC) 128 ms [facility] QRS-Interval (MSEC) 88 ms [facility] QT-Interval (MSEC) 358 ms [facility] QTc 468 ms [facility] P [place] 54 degrees [facility] R [place] 55 degrees [facility] T [place] 38 degrees [facility] Diagnosis Sinus tachycardia Possible Left atrial enlargement RSR' or QR pattern in V1 suggests right ventricular conduction delay Nonspecific T wave abnormality Abnormal ECG No previous ECGs available Confirmed by YANDY LEON M.D. ([id number]) on 09/13/2024 8:06:17 PM [facility] 09/13/2024 3:43 PM CDT 09/13/2024 8:06 PM CDT us Mario Murray DO ECG ORDERABLES Final Result Performing Organization Address [facility] de Phone Number [facility] * eGFR (09/13/2024 3:43 PM CDT) eGFR [...] was last reviewed 2021. Testing performed by: [address] [address] Blood 09/13/2024 3:43 PM CDT 09/13/2024 3:48 PM CDT us Mario Murray DO LAB BLOOD ORDERABLES Final Res ult JOSELYN [address] [facility] Department [place] [address] * Differential, auto (09/13/2024 3:43 PM CDT) Pathologist [facility] Neutrophil abs 2.62 1.50 - 6.50 K/cumm Comment:Testing performed by : [address] [address] Imm gran abs 0.02 0.00 - 0.10 K/cumm JOSELYN Comment:Testing performed by : [address] [address] Lymphocyte abs 2.86 0.80 - 3.30 K/cumm JOSELYN Comment:Testing performed by : [address] [address] Monocyte abs 0.58 0.20 - 0.80 K/cumm [facility] Comment:Testing performed by : [address] [address] Eosinophil abs 0.09 0.00 - 0.50 K/cumm [facility] Comment:Testing performed by : [address] [address] Basophil abs 0.05 0.00 - 0.10 K/cumm [facility] Comment:Testing performed by : [address] [address] Neutrophil pct 42.2 % [facility] Comment: Interpretive Data Percent cell count reference ranges are not reported, since discordance with absolute values may lead to misinterpretation of CBC data. Current Interpretive Data was last revised on 2017. Testing performed by: [address] [address] Imm gran pct 0.3 % [facility] Comment: Interpretive Data Percent cell count reference ranges are not reported, since discordance with absolute values may lead to misinterpretation of CBC data. Current Interpretive Data was last revised on 2017. Testing performed by: [address] [address] Lymphocyte pct 46.0 % [facility] Comment: Interpretive Data Percent cell count reference ranges are not reported, since discordance with absolute values may lead to misinterpretation of CBC data. Current Interpretive Data was last revised on 2017. Testing performed by: [address] [address] Monocyte pct 9.3 % [facility] Comment: Interpretive Data Percent cell count reference ranges are not reported, since discordance with absolute values may lead to misinterpretation of CBC data. Current Interpretive Data was last revised on 2017. Testing performed by: [address] [address] Eosinophil pct 1.4 % [facility] Comment: Interpretive Data Percent cell count reference ranges are not reported, since discordance with absolute values may lead to misinterpretation of CBC data. Current Interpretive Data was last revised on 2017. Testing performed by: [address] [address] Basophil pct 0.8 % JOSELYN Comment: Interpretive Data Percent cell count reference ranges are not reported, since discordance with absolute values may lead to misinterpretation of CBC data. Current Interpretive Data was last revised on 2017. Testing performed by: [address] [address] Blood 09/13/2024 3:43 PM CDT 09/13/2024 3:48 PM CDT us Mario Murray DO LAB BLOOD ORDERABLES Final Res ult JOSELYN [address] [facility] Department [place] [address] * (ABNORMAL) CBC with auto differential (09/13/2024 3:43 PM CDT) WBC 6.22 3.80 - 9.90 K/cumm Comment:Testing performed by : [address] [address] Hgb 12.6 11.9 - 15.5 g/dL JOSELYN VAZQEUZ Comment:Testing performed by : [address] [address] Hct 35.9 35.6 - 45.5 % JOSELYN VAZQUEZ Comment:Testing performed by : [address] [address] Plt 168 150 - 400 K/cumm JOSELYN Comment:Testing performed by : [address] [address] MPV 9.3 9.1 - 12.3 fL JOSELYN VAZQUEZ Comment:Testing performed by : [address] [address] RBC 4.00 3.90 - 5.20 M/cumm JOSELYN VAZQUEZ Comment:Testing performed by : [address] [address] MCV 89.8 81.3 - 96.4 fL JOSELYN VAZQUEZ Comment:Testing performed by : [address] [address] MCH 31.5 27.1 - 33.3 pg JOSELYN Comment:Testing performed by : [address] [address] MCHC 35.1 32.3 - 35.7 g/dL JOSELYN VAZQUEZ Comment:Testing performed by : [address] [address] RDW CV 15.3(H) 11.1 - 14.9 % JOSELYN Comment:Testing performed by : [address], [place]., [address] RDW SD 49.8(H) 35.7 - 48.1 fL JOSELYN Comment:Testing performed by : [address] [address] NRBC abs 0.00 0.00 - 0.01 K/cumm JOSELYN Comment:Testing performed by : [address] [address] Blood Venous blood specimen / Unknown 09/13/2024 3:43 PM CDT 09/13/2024 3:48 PM CDT us Mario Murray DO LAB BLOOD ORDERABLES Final Res ult JOSELYN [address] [facility] Department of Laboratories [place], [place] [id number] * hCG, blood, quantitative (09/13/2024 3:43 PM CDT) [facility] hCG, quant <5.0 0.0 - 5.0 IUnits/L Comment: Interpretive Data Male: < 5 IU/L Non- premenopausal Female: <5 IU/L The [employer] hCG Beta Quant assay procedure was used. Results from different manufacturers or methods may not be comparable. Serial testing should be performed using the same method. Interpretive Data was last revised on 2023 Testing performed by: [address] [address] Blood 09/13/2024 3:43 PM CDT 09/13/2024 3:48 PM CDT Mario Murray DO LAB BLOOD ORDERABLES Edited Re sult - Final Performing Organization Address [facility]/ZIP Co de Phone Number JOSELYN [address] [place] [address] * Uric acid (09/13/2024 3:43 PM CDT) Uric acid 5.0 2.5 - 7.0 mg/dL Comment:Testing performed by : [address] [address] Blood 09/13/2024 3:43 PM CDT 09/13/2024 3:48 PM CDT Mario Murray DO LAB BLOOD ORDERABLES Final Res ult Performing Organization Address [facility] de Phone Number JOSELYN [address] [place] [address] * Phosphorus (09/13/2024 3:43 PM CDT) Phosphorus, pl 3.0 2.3 - 4.5 mg/dL Comment:Testing performed by : [address] [address] Blood 09/13/2024 3:43 PM CDT 09/13/2024 3:48 PM CDT Mario Murray DO LAB BLOOD ORDERABLES Final Res ult Performing Organization Address [facility] Co de Phone Number JOSELYN [address] [address] * Magnesium (09/13/2024 3:43 PM CDT) Magnesium 1.8 1.4 - 2.5 mg/dL Comment:Testing performed by : [address] [address] Blood 09/13/2024 3:43 PM CDT 09/13/2024 3:48 PM CDT Spike Perales III, MD LAB BLOOD ORDERABLES F inal Result Performing Organization Address City/[facility]/ZIP Co de Phone Number [address] [address] * Lipase (09/13/2024 3:43 PM CDT) Lipase 11 10 - 99 Units/L Comment:Testing performed by : [address] [address] Blood Venous blood specimen / Unknown 09/13/2024 3:43 PM CDT 09/13/2024 3:48 PM CDT Mario Murray DO LAB BLOOD ORDERABLES Final Res ult Performing Organization Address [facility] Co de Phone Number [address] [address] * Lactate dehydrogenase (LD) (09/13/2024 3:43 PM CDT) Lactate dehydrogenase (LDH) 216 100 - 250 Units/L Comment:Testing performed by : [address] [address] Blood 09/13/2024 3:43 PM CDT 09/13/2024 3:48 PM CDT Mario Murray DO LAB BLOOD ORDERABLES Final Res ult Performing Organization Address [facility] Co de Phone Number [address] [address] * (ABNORMAL) Comprehensive metabolic panel (09/13/2024 3:43 PM CDT) Pathologist [facility] Sodium 143 135 - 145 mmol/L Comment:Testing performed by : [address] [address] Potassium, pl 2.7(L) 3.3 - 4.9 mmol/L JOSELYN Comment:Testing performed by : [address] [address] Chloride 99 97 - 110 mmol/L JOSELYN Comment:Testing performed by : [address] [address] CO2 28 22 - 32 mmol/L JOSELYN Comment:Testing performed by : [address], [place]., [address] Anion gap 16(H) 2 - 15 mmol/L JOSELYN Comment:Testing performed by : [address] [address] BUN 5(L) 6 - 25 mg/dL JOSELYN Comment:Testing performed by : [address] [address] Creatinine 0.60 0.60 - 1.10 mg/dL JOSELYN Comment:Testing performed by : [address] [address] Glucose 69(L) 70 - 199 mg/dL JOSELYN [...] was last revised 2022. Testing performed by: [address] [address] Calcium 9.2 8.5 - 10.3 mg/dL JOSELYN Comment:Testing performed by : [address] [address] Bilirubin, total 0.5 0.1 - 1.2 mg/dL JOSELYN Comment:Testing performed by : [address] [address] Protein, pl 6.4(L) 6.5 - 8.5 g/dL JOSELYN Comment:Testing performed by : [address], [place]., [address] Albumin 4.2 3.5 - 5.0 g/dL JOSELYN VAZQUEZ Comment:Testing performed by : [address] [address] Alk phos 155(H) 40 - 130 Units/L JOSELYN VAZQUEZ Comment:Testing performed by : [address] [address] ALT 6(L) 7 - 45 Units/L JOSELYN VAZQUEZ Comment:Testing performed by : [address] [address] AST 15 10 - 45 Units/L JOSELYN Comment:Testing performed by : [address] [address] Blood 09/13/2024 3:43 PM CDT 09/13/2024 3:48 PM CDT Mario Murray DO LAB BLOOD ORDERABLES Final Res ult Performing Organization Address City/State/[facility] Co de Phone Number JOSELYN [address] [facility] Department [place] [address] from Last 3 Months Insurance [facility] Advance Directives For more information, please contact: [phone] * Full Code (Latest Code Status on File) Date Activated Date Inactivated Comments 09/22/2024 9:00 PM 09/24/2024 10:30 PM * Full Code Date Activated Date Inactivated Comments 09/17/2024 2:33 PM 09/17/2024 11:31 PM Care Teams Social Work Lecturer Relationship Specialty Start Date End Date Richard Fish NP [address] [place] [address] PCP - General Nurse Practitioner 02/13/24 Ramy Aguilera MD [address] [place] [address] Medical Oncologist/Excavator Backhoe Operator Internal Medicine 09/23/24
--- OUTSIDE RECORDS SUMMARY | 2024-10-10 20:53 | XMS_ITS ---
Author Organization [facility] Address [address] [place] [address] Phone Care Team Providers Care Commercial Announcer Name Role Phone Gabriel Salmeron MD Unavailable [phone] Brooks Sosa MD Unavailable [phone] Provider, None Primary Care Provider UnavailKervin Rubi MD Unavailable [facility] Status:Enrolled (Active) Start date:05/05/2024 Enrollment date:05/05/2024 Related social drivers of health:Social Connections, Tobacco Use, Depression, Stress, Physical Activity, Utilities Continued Care and Services Coordination
--- OUTSIDE RECORDS SUMMARY | 2024-10-10 20:53 | XMS_ITS | Encounter Summary ---
Author Organization [facility] Address [address] [place] [place] [address] Care Team Providers Care General Road Foreman Name Role Phone Unavailable Primary Care Provider Unavailabl e Encounter Details Date Type Department Care Team (Late st Contact Info) Description 12/18/2022 Lab Requisition [facility] - Pathology Lab [address] [place] [address] Ishan Escobedo MD [address] [facility] [address] [place] [phone] Generalized enlarged lymph nodes Social History [...] AM CDT) Case Report Flow Cytometry Case: [id number] Authorizing Provider: Ishan Escobedo MD Collected: 12/18/2022 09:00 AM Ordering Location: [facility] Care Pathology Lab Received: 12/18/2022 03:11 PM Pathologist: Giovanni Chow MD Specimen: Axillary Lymph Node, RIGHT 12/18/2022 5:15 PM CDT [facility] Final Diagnosis Axillary lymph node, flow cytometry: - [place] light chain restricted CD10+ B-cell population detected (~99% of overall events) 12/18/2022 5:15 PM CDT [facility] at 1714 CDT Flow Cytometry Interpretation Viability: 87%. B-cells: monoclonal, kappa-restricted, expressing CD19, CD20, and CD10. T-cells: not increased, no immunophenotypic aberrancy. A cytospin prepared from the flow cytometry specimen has been reviewed for quality control analyst purposes. 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 Histologic slides are pending for final subclassification. 12/18/2022 5:15 PM [facility] Flow Cytometry Results Differential Result Comment Flow Cell Count /uL 9,000 Total Viability % 87.0 Lymphocytes % 99 Dim CD45 Region % 0 Monocytes % 0 Granulocytes % 1 12/18/2022 5:15 PM [facility] Reason for test Generalized enlarged lymph nodes 785.6 12/18/2022 5:15 PM [facility] Client Specimen ID # [id number] 12/18/2022 5:15 PM [facility] Number of markers 16 were performed. A-2 Flow CD3 A-4 Flow CD10 A-6 Flow CD20 A-7 Flow CD23 A-12 Flow CD2 A-13 Flow CD4 A-16 Flow CD1a A-3 Flow CD5 A-5 Flow CD19 A-8 Flow CD34 A-9 Flow CD45 A-14 Flow CD7 A-15 Flow CD8 A-17 Flow CD30 A-10 [place]+CD19+ A-11 Lambda+CD19+ 12/18/2022 5:15 PM [facility] Pathologist Location at [facility] 12/18/2022 5:15 PM [facility] Disclaimer Test performed at [facility], [address] [place] [address], [address]. *The established laboratory minimum viability is 70%. [...] PATHOLOGY LAB Embedded Images 5:15 PM CDT [facility] Pathology/Cytolo gy AXILLARY LYMPH NODE STRUCTURE / Unknown 12/18/2022 9:00 AM CDT 12/18/2022 3:11 PM CDT us Ishan Escobedo MD LAB - PATHOLOGY/CYTOLOGY ORDERAB LES Final Result [facility] [address] [phone] documented in this encounter Visit Diagnoses Diagnosis Generalized enlarged lymph nodes Enlargement of lymph nodes documented in this encounter
--- OUTSIDE RECORDS SUMMARY | 2024-10-10 20:53 | XMS_ITS ---
Author Organization [facility] Address [address] [place] [address] Phone Care Team Providers Care Field Support Representative Name Role Phone Gabriel Salmeron MD Unavailable [...] at custodial Child living with her parents Current Treatment [...]
--- OUTSIDE RECORDS SUMMARY | 2024-10-10 20:53 | XMS_ITS | Clinical Summary ---
Author Organization [facility] Address [address] [facility] [place] [address] Care Team Providers Care Tape Librarian Name Role Phone Unavailable Primary Care Provider Unavailabl e Source Comments [facility] [employer],non-owned Affiliates and Associated Physician Practices is amultiple site organization consisting of ambulatory clinics and hospital sitesin [place], [place], [place] and [place]. This disclosure is being madepursuant to the Care Everywhere program and may not contain all information available regarding this patient. Last updated 17.[facility] [employer] Social History Tobacco Use Types Packs/Day Years Used Date Smoking Tobacco: Never Assessed Comments Unknown Sex and Gender Information Value Date Recorded Sex Assigned at Not on file Legal Sex Female 3:05 PM CDT Gender Identity Not on file Sexual Orientation Not on file Plan of Treatment Health Maintenance Due Date Last Done Comments HIV SCREENING 02/21/2007 HEPATITIS C SCREENING 02/17/2010 DTAP/TDAP/TD VACCINES (1 - Tdap) 02/21/2011 HEPATITIS B VACCINE (1 of 3 - 19+ 3-dose series) 02/21/2011 PAP SMEAR 02/21/2013 COVID-19 VACCINE (1 - 2023-2 5 season) 2023 DEPRESSION SCREENING 04/07/2024 INFLUENZA VACCINE (#1) 2024 ZOSTER VACCINE (1 of 2) 02/21/2042 [...] patient's age to complete this topic [place] [address] [place] [address]
--- OUTSIDE RECORDS SUMMARY | 2024-10-10 20:53 | XMS_ITS | Encounter Summary ---
Author Organization [facility] Address [address] [place] [address] Care Team Providers Care Aging Department Supervisor Name Role Phone Unavailable Primary Care Provider Unavailabl e Encounter Details Date Type Department Care Team (Late st Contact Info) Description 12/19/2022 Lab Requisition [facility] - Pathology Lab [address] [place] [id number] Ishan Escobedo MD [id number] [id number] Illness, unspecified Social History Tobacco [...] CDT) Case Report Surgical Pathology Report Case: [id number] Authorizing Provider: Ishan Escobedo MD Collected: 12/18/2022 09:00 AM Ordering Location: [facility] Care Pathology Lab Received: 12/19/2022 01:25 PM [...] CD10 co-expression. Axillary lymph node, flow cytometry ([id number]): - [place]aida light chain restricted CD10+ B-cell population detected (~99% of overall events) Also received from [facility] is a peripheral smear showing circulating follicular lymphoma cells with occasional nuclear clefts. The peripheral blood is involved by follicular lymphoma. 12/19/2022 3:33 PM CDT [facility] PATH[facility] Clinical History Suspect lymphoma. 12/19/2022 3:33 PM [facility] Materials Received Received are 4 slide(s) and 1 block labeled [id number] along with a copy of the outside pathology report. The materials originate from [facility], [address] [place] [address]. All original materials are returned to the referring institution, along with a copy of our final report. 12/19/2022 3:33 PM T [facility] Pathologist Location at [facility] 12/19/2022 3:33 PM T [facility] Disclaimer The performance characteristics of all immunohistochemical and indirect immunofluorescence stains (if any) cited in this report were determined by the Histopathology [facility] of [facility]. Some of these tests were developed by [...] attending (teaching) pathologist. 12/19/2022 3:33 PM T [facility] Embedded Images 12/19/2022 3:33 PM T [facility] Pathology/Cytolo gy BIOPSY OF LYMPH NODE / Unknown 12/18/2022 9:00 AM CDT 12/19/2022 1:25 PM CDT us Ishan Escobedo MD LAB - PATHOLOGY/CYTOLOGY ORDERAB LES Final Result [facility] [address] [facility] [phone] documented in this encounter Visit Diagnoses Diagnosis Illness, unspecified documented in this encounter
--- OUTSIDE RECORDS SUMMARY | 2024-10-10 20:53 | XMS_ITS | Referral Summary ---
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 Name Role Phone Richard Fsih NP Primary Care Provider Ramy Aguilera MD Unavailable [phone] Encounters Date Type Department Care Team Description 10/07/2024 8:45 AM CDT Infusion [facility] at [address] [address] Follicular lymphoma, unspecified follicular lymphoma type, unspecified body region (HCC) (Primary Dx) 10/07/2024 8:15 AM CDT Lab [address] [address] Follicular lymphoma, unspecified follicular lymphoma type, unspecified body region (HCC) 10/01/2024 Orders Only [facility] Oncology [address] [place] [phone] Ramy Aguilera MD 09/30/2024 Orders Only [facility] at [address] [place] [address] Paulina German RPh 09/30/2024 3:00 PM CDT Lab [facility] at [address] [address] Follicular lymphoma, unspecified follicular lymphoma type, unspecified body region (HCC); Follicular lymphoma grade III, unspecified body region (HCC) 09/30/2024 3:30 PM CDT Office Visit [facility] Bone Marrow Transplant [address] [place] [address] [address] [place] [phone] Ramy Aguilera MD Follicular lymphoma, unspecified follicular lymphoma type, unspecified body region (HCC) (Primary Dx) 09/28/2024 Telephone [facility] Oncology [address] [place] [address] [address] [place] [address] Tanesha Srinivasan RN 09/24/2024 Orders Only [facility] Bone Marrow Transplant [address] [place] [address] [address] [place] [address] Ramy Aguilera MD 09/21/2024 10:26 PM CDT - 09/24/2024 6:25 PM CDT Hospital Encounter [address] [address] Zahra Alston MD Patel, Dilan Anil, MD Kim, MD Krishna Sosa, MD Saw Mendoza, Jamarcus Barahona MD Follicular lymphoma, unspecified follicular lymphoma type, unspecified body region (HCC) (Primary Dx) Discharge Disposition: Discharge to home or self care 09/21/2024 Documentation [facility] Bone Marrow Transplant [address] [place] [phone] Ramy Aguilera MD 09/21/2024 Hospital Encounter H ADMIT [address] [place] [address] Ramy Aguilera MD 09/17/2024 Documentation [facility] Oncology [address] [place] [phone] Suzanne Martinez RN 09/17/2024 2:24 PM CDT - 09/17/2024 7:26 PM CDT Hospital Encounter [address] [address] Ramy Aguilera MD Jeon, Alvin, MD Discharge Disposition: Left Against Medical Advice 09/16/2024 10:30 AM CDT Lab [facility] at [facility] [address] [place] [address] Follicular lymphoma grade III, unspecified body region (HCC) 09/16/2024 12:00 PM CDT Office Visit [facility] Bone Marrow Transplant [address] [facility] [address] [place] [phone] Ramy Aguilera MD Follicular lymphoma grade III, unspecified body region (HCC) (Primary Dx) 09/15/2024 Orders Only [facility] [address] [place] [address] Ramy Aguilera MD Lymphoma of lymph nodes (HCC) 09/15/2024 9:49 AM CDT - 09/15/2024 11:59 PM CDT Hospital Encounter [facility] [address] [place] [address] Discharge Disposition: Discharge to home or self care 09/15/2024 9:48 AM CDT - 09/15/2024 11:59 PM CDT Hospital Encounter [facility] ([facility]) [address] [place] [address] Discharge Disposition: Discharge to home or self care 09/15/2024 9:47 AM CDT - 09/15/2024 11:59 PM CDT Hospital Encounter [facility] ([facility]) [address] [place] [address] Discharge Disposition: Discharge to home or self care 09/15/2024 9:47 AM CDT - 09/15/2024 11:59 PM CDT Hospital Encounter [facility] ([facility]) [address] [place] [address] Discharge Disposition: Discharge to home or self care 09/15/2024 9:46 AM CDT - 09/15/2024 11:59 PM CDT Hospital Encounter [facility] ([facility]) [address] [place] [address] Discharge Disposition: Discharge to home or self care 09/15/2024 9:45 AM CDT - 09/15/2024 11:59 PM CDT Hospital Encounter [facility] ([facility]) [address] [place] [address] Discharge Disposition: Discharge to home or self care 09/15/2024 9:45 AM CDT - 09/15/2024 11:59 PM CDT Hospital Encounter [facility] ([facility]) [address] [place] [address] Discharge Disposition: Discharge to home or self care 09/15/2024 9:44 AM CDT - 09/15/2024 11:59 PM CDT Hospital Encounter [facility] ([facility]) [address] [place] [address] Discharge Disposition: Discharge to home or self care 09/14/2024 Orders Only [facility] Oncology [address] [facility] [address] [place] [address] Ramy Aguilera MD Lymphoma of lymph nodes (HCC) (Primary Dx) 09/13/2024 7:06 PM CDT - 09/13/2024 8:33 PM CDT Emergency [facility] Emergency Department [address] [place] [address] Mario Murray DO Lymphoma, unspecified body region, unspecified lymphoma type (HCC) (Primary Dx); Hypokalemia; Vaginal bleeding; Myalgia Discharge Disposition: Discharge to home or self care 09/05/2024 Documentation [facility] Oncology [address] [facility] Floor [address] [place] [address] Nora Cheema MD 08/23/[address] [address] Hannah Wilder, RN Scheduling Appointments 08/12/[address] [address] Hannah Wilder, RN Scheduling Appointments from Last 3 Months Allergies [...] - Plan to discharge patient with outpatient [facility] follow-up on 09/30/24. Assessment & Plan (09/23/2024 [...] - Plan to discharge patient with outpatient [facility] follow-up on 09/30/24. Assessment & Plan (09/23/2024 [...] - Plan to discharge patient with outpatient [facility] follow-up on 09/30/24. Assessment & Plan (09/23/2024 [...] Plan (09/17/2024 7:02 PM CDT): - NRT Immunizations Immunization Administration Dates Next Due Tdap [...] 10/07/2024 8:30 AM CDT Plan of Treatment Not on file [...] Results * eGFR (10/07/2024 8:12 AM CDT) Pathologist [facility] eGFR >90 >=60 mL/min/1. 73 m2 Comment: [...] was last reviewed 2021. Testing performed by: [address] [address] Blood 10/07/2024 8:12 AM CDT 10/07/2024 8:16 AM CDT us Ramy Aguilera MD LAB BLOOD ORDERABLES Final R esult JOSELYN [address] [facility] Department of Laboratories [place], [place] [id number] * (ABNORMAL) Differential, auto (10/07/2024 8:12 AM CDT) Pathologist [facility] Neutrophil abs 5.64 1.50 - 6.50 K/cumm Comment:Testing performed by : [address] [address] Imm gran abs 0.08 0.00 - 0.10 K/cumm JOSELYN VAZQUEZ Comment:Testing performed by : [address] [address] Lymphocyte abs 12.57(H) 0.80 - 3.30 K/cumm JOSELYN VAZQUEZ Comment:Testing performed by : [address] [address] Monocyte abs 0.33 0.20 - 0.80 K/cumm [facility] Comment:Testing performed by : [address] [address] Eosinophil abs 0.02 0.00 - 0.50 K/cumm [facility] Comment:Testing performed by : [address] [address] Basophil abs 0.03 0.00 - 0.10 K/cumm [facility] Comment:Testing performed by : [address] [address] Neutrophil pct 30.2 % [facility] Comment: Interpretive Data Percent cell count reference ranges are not reported, since discordance with absolute values may lead to misinterpretation of CBC data. Current Interpretive Data was last revised on 2017. Testing performed by: [address] [address] Imm gran pct 0.4 % [facility] Comment: Interpretive Data Percent cell count reference ranges are not reported, since discordance with absolute values may lead to misinterpretation of CBC data. Current Interpretive Data was last revised on 2017. Testing performed by: [address] [address] Lymphocyte pct 67.3 % [facility] Comment: Interpretive Data Percent cell count reference ranges are not reported, since discordance with absolute values may lead to misinterpretation of CBC data. Current Interpretive Data was last revised on 2017. Testing performed by: [address] [address] Monocyte pct 1.8 % [facility] Comment: Interpretive Data Percent cell count reference ranges are not reported, since discordance with absolute values may lead to misinterpretation of CBC data. Current Interpretive Data was last revised on 2017. Testing performed by: [address] [address] Eosinophil pct 0.1 % [facility] Comment: Interpretive Data Percent cell count reference ranges are not reported, since discordance with absolute values may lead to misinterpretation of CBC data. Current Interpretive Data was last revised on 2017. Testing performed by: [address] [address] Basophil pct 0.2 % JOSELYN Comment: Interpretive Data Percent cell count reference ranges are not reported, since discordance with absolute values may lead to misinterpretation of CBC data. Current Interpretive Data was last revised on 2017. Testing performed by: [address] [address] Blood 10/07/2024 8:12 AM CDT 10/07/2024 8:16 AM CDT us Ramy Aguilera MD LAB BLOOD ORDERABLES Final R esult JOSELYN [address] [facility] [place] [address] * (ABNORMAL) CBC with auto differential (10/07/2024 8:12 AM CDT) WBC 18.67(H) 3.80 - 9.90 K/cumm Comment:Testing performed by : [address] [address] Hgb 10.6(L) 11.9 - 15.5 g/dL JOSELYN Comment:Testing performed by : [address] [address] Hct 32.3(L) 35.6 - 45.5 % JOSELYN Comment:Testing performed by : [address] [address] Plt 256 150 - 400 K/cumm JOSELYN Comment:Testing performed by : [address] [address] MPV 9.1 9.1 - 12.3 fL JOSELYN VAZQUEZ Comment:Testing performed by : [address] [address] RBC 3.44(L) 3.90 - 5.20 M/cumm JOSELYN VAZQUEZ Comment:Testing performed by : [address] [address] MCV 93.9 81.3 - 96.4 fL JOSELYN VAZQUEZ Comment:Testing performed by : [address] [address] MCH 30.8 27.1 - 33.3 pg JOSELYN Comment:Testing performed by : [address] [address] MCHC 32.8 32.3 - 35.7 g/dL JOSELYN VAZQUEZ Comment:Testing performed by : [address] [address] RDW CV 14.6 11.1 - 14.9 % JOSELYN Comment:Testing performed by : [address] [address] RDW SD 50.0(H) 35.7 - 48.1 fL JOSELYN Comment:Testing performed by : [address] [address] NRBC abs 0.00 0.00 - 0.01 K/cumm JOSELYN Comment:Testing performed by : [address] [address] ANC Prelim 5.64 1.50 - 6.50 K/cumm JOSELYN Comment: Interpretive Data The rapid ANC is a preliminary automated count and may vary from the final ANC (Neut Abs) reported in the WBC differential that follows. Current interpretive data was last revised 2024. Testing performed by: [address] [address] Morphologic Screen Results confirmed by manual morphology review. JOSELYN Comment:Testing performed by : [address] [address] Blood 10/07/2024 8:12 AM CDT 10/07/2024 8:16 AM CDT us Ramy Aguilera MD LAB BLOOD ORDERABLES Edited Result - Final DARRINSUSAN [address] [facility] [place] [address] * hCG, blood, quantitative (10/07/2024 8:12 AM CDT) Pathologist [facility] hCG, quant <5.0 0.0 - 5.0 IUnits/L Comment: Interpretive Data Male: < 5 IU/L Non- premenopausal Female: <5 IU/L The Cosmo hCG Beta Quant assay procedure was used. Results from different manufacturers or methods may not be comparable. Serial testing should be performed using the same method. Interpretive Data was last revised on 2023 Testing performed by: [address] [address] Blood 10/07/2024 8:12 AM CDT 10/07/2024 9:06 AM CDT Narrative [facility] - 10/07/2024 10:00 AM CDT Need before treatment start us Ramy Aguilera MD LAB BLOOD ORDERABLES Edited Result - Final [facility] [address] [facility] [place] [address] * (ABNORMAL) Comprehensive metabolic panel (10/07/2024 8:12 AM CDT) Sodium 140 135 - 145 mmol/L Comment:Testing performed by : [address] [address] Potassium, pl 3.9 3.3 - 4.9 mmol/L JOSELYN Comment:Testing performed by : [address] [address] Chloride 101 97 - 110 mmol/L JOSELYN Comment:Testing performed by : [address] [address] CO2 28 22 - 32 mmol/L JOSELYN Comment:Testing performed by : [address] [address] Anion gap 11 2 - 15 mmol/L JOSELYN Comment:Testing performed by : [address] [address] BUN 19 6 - 25 mg/dL JOSELYN Comment:Testing performed by : [address] [address] Creatinine 0.70 0.60 - 1.10 mg/dL JOSELYN Comment:Testing performed by : [address] [address] Glucose 104 70 - 199 mg/dL JOSELYN Comment: Interpretive [...] was last revised 2022. Testing performed by: [address] [address] Calcium 9.0 8.5 - 10.3 mg/dL JOSELYN Comment:Testing performed by : [address] [address] Bilirubin, total 0.3 0.1 - 1.2 mg/dL JOSELYN Comment:Testing performed by : [address] [address] Protein, pl 6.2(L) 6.5 - 8.5 g/dL JOSELYN Comment:Testing performed by : [address] [address] Albumin 3.9 3.5 - 5.0 g/dL JOSELYN Comment:Testing performed by : [address] [address] Alk phos 128 40 - 130 Units/L JOSELYN Comment:Testing performed by : [address] [address] ALT 8 7 - 45 Units/L JOSELYN Comment:Testing performed by : [address] [address] AST 15 10 - 45 Units/L JOSELYN Comment:Testing performed by : [address] [address] Blood 10/07/2024 8:12 AM CDT 10/07/2024 8:16 AM CDT us Ramy Aguilera MD LAB BLOOD ORDERABLES Final R esult Performing Organization Address [facility] Co de Phone Number JOSELYN [address] [place] [address] * eGFR (09/30/2024 3:11 PM CDT) eGFR [...] was last reviewed 2021. Testing performed by: [address] [address] Blood 09/30/2024 3:11 PM CDT 09/30/2024 3:19 PM CDT us Ramy Aguilera MD LAB BLOOD ORDERABLES Final R esult Performing Organization Address City/[facility]/ZIP Co de Phone Number JOSELYN [address] [facility] [place] [address] * Differential, auto (09/30/2024 3:11 PM CDT) Neutrophil abs 2.34 1.50 - 6.50 K/cumm Comment:Testing performed by : [address] [address] Imm gran abs 0.02 0.00 - 0.10 K/cumm [facility] Comment:Testing performed by : [address] [address] Lymphocyte abs 3.20 0.80 - 3.30 K/cumm [facility] Comment:Testing performed by : [address] [address] Monocyte abs 0.29 0.20 - 0.80 K/cumm [facility] Comment:Testing performed by : [address], [place]., [address] Eosinophil abs 0.07 0.00 - 0.50 K/cumm [facility] Comment:Testing performed by : [address] [address] Basophil abs 0.03 0.00 - 0.10 K/cumm [facility] Comment:Testing performed by : [address] [address] Neutrophil pct 39.3 % [facility] Comment: Interpretive Data Percent cell count reference ranges are not reported, since discordance with absolute values may lead to misinterpretation of CBC data. Current Interpretive Data was last revised on 2017. Testing performed by: [address] [address] Imm gran pct 0.3 % [facility] Comment: Interpretive Data Percent cell count reference ranges are not reported, since discordance with absolute values may lead to misinterpretation of CBC data. Current Interpretive Data was last revised on 2017. Testing performed by: [address] [address] Lymphocyte pct 53.8 % [facility] Comment: Interpretive Data Percent cell count reference ranges are not reported, since discordance with absolute values may lead to misinterpretation of CBC data. Current Interpretive Data was last revised on 2017. Testing performed by: [address] [address] Monocyte pct 4.9 % [facility] Comment: Interpretive Data Percent cell count reference ranges are not reported, since discordance with absolute values may lead to misinterpretation of CBC data. Current Interpretive Data was last revised on 2017. Testing performed by: [address] [address] Eosinophil pct 1.2 % JOSELYN VAZQUEZ Comment: Interpretive Data Percent cell count reference ranges are not reported, since discordance with absolute values may lead to misinterpretation of CBC data. Current Interpretive Data was last revised on 2017. Testing performed by: [address] [address] Basophil pct 0.5 % JOSELYN VAZQUEZ Comment: Interpretive Data Percent cell count reference ranges are not reported, since discordance with absolute values may lead to misinterpretation of CBC data. Current Interpretive Data was last revised on 2017. Testing performed by: [address] [address] Blood 09/30/2024 3:11 PM CDT 09/30/2024 3:19 PM CDT us Ramy Aguilera MD LAB BLOOD ORDERABLES Final R esult JOSELYN [facility] [place] [address] * (ABNORMAL) CBC with auto differential (09/30/2024 3:11 PM CDT) WBC 5.95 3.80 - 9.90 K/cumm Comment:Testing performed by : [address] [address] Hgb 10.6(L) 11.9 - 15.5 g/dL JOSELYN VAZQUEZ Comment:Testing performed by : [address] [address] Hct 30.6(L) 35.6 - 45.5 % JOSELYN VAZQUEZ Comment:Testing performed by : [address] [address] Plt 150 150 - 400 K/cumm JOSELYN VAZQUEZ Comment:Testing performed by : [address] [address] MPV 9.0(L) 9.1 - 12.3 fL JOSELYN VAZQUEZ Comment:Testing performed by : [address] [address] RBC 3.35(L) 3.90 - 5.20 M/cumm JOSELYN Comment:Testing performed by : [address] [address] MCV 91.3 81.3 - 96.4 fL JOSELYN VAZQUEZ Comment:Testing performed by : [address] [address] MCH 31.6 27.1 - 33.3 pg JOSELYN Comment:Testing performed by : [address] [address] MCHC 34.6 32.3 - 35.7 g/dL JOSELYN Comment:Testing performed by : [address] [address] RDW CV 14.7 11.1 - 14.9 % JOSELYN Comment:Testing performed by : [address] [address] RDW SD 49.1(H) 35.7 - 48.1 fL JOSELYN Comment:Testing performed by : [address] [address] NRBC abs 0.00 0.00 - 0.01 K/cumm JOSELYN Comment:Testing performed by : [address] [address] ANC Prelim 2.34 1.50 - 6.50 K/cumm JOSELYN Comment: Interpretive Data The rapid ANC is a preliminary automated count and may vary from the final ANC (Neut Abs) reported in the WBC differential that follows. Current interpretive data was last revised 2024. Testing performed by: [address] [address] Blood 09/30/2024 3:11 PM CDT 09/30/2024 3:19 PM CDT us Ramy Aguilera MD LAB BLOOD ORDERABLES Final R esult JOSELYN [address] [facility] [place] [address] * (ABNORMAL) Lactate dehydrogenase (LD) (09/30/2024 3:11 PM CDT) Pathologist [facility] Lactate dehydrogenase (LDH) 252(H) 100 - 250 Units/L Comment:Testing performed by : [address] [address] Blood 09/30/2024 3:11 PM CDT 09/30/2024 3:19 PM CDT us Ramy Aguilera MD LAB BLOOD ORDERABLES Final R esult [facility] [address] [facility] [place] [address] * (ABNORMAL) Comprehensive metabolic panel (09/30/2024 3:11 PM CDT) [facility] Sodium 139 135 - 145 mmol/L Comment:Testing performed by : [address] [address] Potassium, pl 3.3 3.3 - 4.9 mmol/L JOSELYN Comment:Testing performed by : [address] [address] Chloride 97 97 - 110 mmol/L JOSELYN Comment:Testing performed by : [address] [address] CO2 29 22 - 32 mmol/L JOSELYN Comment:Testing performed by : [address] [address] Anion gap 13 2 - 15 mmol/L JOSELYN Comment:Testing performed by : [address] [address] BUN 4(L) 6 - 25 mg/dL JOSELYN Comment:Testing performed by : [address] [address] Creatinine 0.60 0.60 - 1.10 mg/dL JOSELYN Comment:Testing performed by : [address] [address] Glucose 97 70 - 199 mg/dL JOSELYN Comment: Interpretive [...] was last revised 2022. Testing performed by: [address] [address] Calcium 9.4 8.5 - 10.3 mg/dL JOSELYN Comment:Testing performed by : [address] [address] Bilirubin, total 0.7 0.1 - 1.2 mg/dL JOSELYN Comment:Testing performed by : [address] [address] Protein, pl 6.1(L) 6.5 - 8.5 g/dL JOSELYN Comment:Testing performed by : [address] [address] Albumin 4.0 3.5 - 5.0 g/dL JOSELYN Comment:Testing performed by : [address] [address] Alk phos 207(H) 40 - 130 Units/L JOSEYLN Comment:Testing performed by : [address] [address] ALT 13 7 - 45 Units/L JOSELYN Comment:Testing performed by : [address] [address] AST 29 10 - 45 Units/L JOSELYN Comment:Testing performed by : [address] [address] Blood 09/30/2024 3:11 PM CDT 09/30/2024 3:19 PM CDT us Ramy Aguilera MD LAB BLOOD ORDERABLES Final R esult JOSELYN MH [address] [facility] [place] [address] * US Guided Biopsy Lymph Node Superficial [...] with it. Electronically signed by: SARAHY Beal 09/24/2024 2:43 PM CDT EXAMINATION: ULTRASOUND-GUIDED CORE [...] in RPMI solution and submitted to the bouffant curtain machine tender service for delivery to Surgical Pathology. No tract embolization was performed. The patient's skin was cleaned and dressed. The patient tolerated the entire procedure well without immediate complications. SARAHY Beal, was present from the beginning to the end of the procedure. SARAHY Beal performed the biopsy. Dr. Filiberto Rosales was present and participated in the procedure. Dr. Filiberto Rosales (residential tech) personally participated in sonographic imaging of this [...] in RPMI solution and submitted to the bouffant curtain machine tender service for delivery to Surgical Pathology. No tract embolization was performed. The patient's skin was cleaned and dressed. The patient tolerated the entire procedure well without immediate complications. SARAHY Beal, was present from the beginning to the end of the procedure. SARAHY Beal performed the biopsy. Dr. Filiberto Rosales was present and participated in the procedure. Dr. Filiberto Rosales (residential tech) personally participated in sonographic imaging of this patient. IMPRESSION: 1. Successful ultrasound-guided core needle biopsy of left axillary lymph node. 2. Please see separate Surgical Pathology results for final interpretation. The radiology attending physician has personally reviewed this study, and had reviewed and/or edited this written report and agrees with it. Electronically signed by: SARAHY Beal Vinayak Olmstead MD [facility] US PROCEDURES Final R esult * Flow Leukemia/Lymphoma Lymph node (09/24/2024 1:28 PM CDT) Heath Stain Test Completed Leukemia/Lymp arianna Result See separate Surgical Pathology report. JOSELYN [facility] Lymph node 09/24/2024 1:28 PM CDT 09/24/2024 4:27 PM CDT Jamarcus Spring MD LAB PATHOLOGY ORDERABLES Frances l Result [facility] [place] [address] * Surgical pathology (09/24/2024 1:20 PM CDT) Tissue (Lymph node, needle biopsy) 09/24/2024 1:20 PM CDT Comment:Lymphoma Tissue specimen (specimen) (Lymph node, needle biopsy) 09/24/2024 1:28 PM CDT Comment:Lymphoma Narrative PATHOLOGY [facility] - 09/28/2024 6:22 PM CDT EPIC results best viewed via link to PDF [facility] [place] [address] Note to Patients: This report may contain [...] Gender: F : 1990 (Age: 34) Address: [address] [place] [address] Hospital #: [id number] Taken:09/24/2024 Received:09/24/2024 Reported: 09/28/2024 Patient Type: [facility] Inpatient Service: BoneMarTranspl Location: [place] [address] Physician(s): AUDI Page Diagnosis: A. Lymph node, left axilla, needle core biopsy: - Follicular lymphoma, grade 1-2 of 3 - See comment B. Lymph node, left axilla, for flow cytometry - [id number]-hxboitbc kappa-restricted monoclonal B-cell population detected (79% of [...] BCL2, CD21, CD23, Ki67 Neoplastic lymphocytes are FN21-oiswxbzs B-cells co-expressing CD10, BCL-6 (subset), BCL-2 and [...] or size. Antigens expressed: CD45, CD19, CD20, Leota, CD10, CD38(heterogenous) Antigens not expressed: CD34, Lambda, CD5, CD200, CD2, CD3, CD4, CD7, CD8, CD56, TCR-GD CD3+ T-lymphocytes show no umanzor T cell antigen aberrancies and have an increased CD4 to CD8 ratio (15:1). Natural killer cells are not increased. Plasma cells are not overtly increased. No significant CD45 dim population is identified. CD34+ blasts are not increased. A Heath-Giemsa stained cytospin from the flow cytometry specimen was examined for internal quality engineering manager purposes. Flow cytometry was performed using antibodies to the following cellular antigens: CD45, CD34, CD19, CD20, Leota, Lambda, CD10, CD5, CD200, CD38, CD2, CD3, CD4, CD7, CD8, CD56, TCR-GD. Total antigens analyzed: 17 Dionisio Mccarty M.D. History: The patient is a 34-year-old [...] diameter. Labeled A1 to A2. Jar 0. elsw09/24/2024 16:16 PA(s): Radha Amaro By this signature, I attest that the above diagnosis is based upon my personal examination of the slides(and/or other material). Addenda/Procedures The performance characteristics of some immunohistochemical stains, fluorescence in-situ hybridization tests and immunophenotyping by flow cytometry cited in this report (if any) were determined by the Surgical Pathology and Flow Cytometry Departments at [facility] as part of an ongoing it quality assurance analyst program and in compliance with federally mandated [...] Surgical Pathology and Flow Cytometry Departments of [facility]. It has not been cleared or approved by the U. S. Food and Drug Administration. IMAGES AND SCANNED DOCUMENTS, IF INCLUDED, ONLY VIEWABLE IN PDF VERSION OF REPORT Vinayak Olmstead MD LAB PATHOLOGY ORDERABLES Final Result PATHOLOGY [facility] 3rd Floor [place], [place] [phone] * TRANSTHORACIC ECHO (TTE) COMPLETE W DOPPLER/CF WO CONTRAST (09/24/2024 9:35 AM CDT) EF Mod BP 69 % CONS SCIMAGE Anatomical Region Laterality Modality Ultrasound 09/24/2024 7:44 AM CDT Narrative 09/24/2024 11:04 AM CDT [facility] Cardiac [facility] [place] [address] Transthoracic Echocardiographic Report Patient Name: SOHA MARRERO R : 1990 (34y 7m) Gender: F Study Date: 09/24/2024 07:44:37 AM Ht(Inch): 63 Wt(Lb): 123.02 BSA: 1.57 Surface Plate Inspector: Rafy Ohara RDCS Location: [id number] Order Provider: HIPOLITO ARMSTRONG Heart Rate: 97 [...] 0.60 - 0.90 ] MV E Peak Karig 0.9 m/s [ 0.6 - 1.3 ] [...] Note De Nilam Bowie MD - 09/24/2024 [facility] Card[facility] [place] [address] Transthoracic Echocardiographic Report Patient Name: SOHA MARRERO R : 1990 (34y 7m) Gender: F Study Date: 09/24/2024 07:44:37 AM Ht(Inch): 63 Wt(Lb): 123.02 BSA: 1.57 Surface Plate Inspector: Rafy Ohara RDCS Location: [id number] Order Provider:HIPOLITO ARMSTRONG Heart Rate: 97 BMI: [...] [ 46.00 - 106.00 ] MV Decel Adcx469.45 msec [ 104.00 - 258.00 ] LV [...] 1.71 - 5.00 ] RVSP30.00 mmHg RA Anwiug54.92 ml RA Volume Index22.88 ml/m2 AoR Diam 2D 2.84 cm [ 2.70 - 3.70 ] Ao Root Index 1.81 cm/m2 [ 1.00 - 2.00 ] Asc Ao Diam 2D2.69 cm Asc Ao Index1.71 cm/m2 Electronically Signed By: Nilam Alvarez MD 09/24/2024 11:03:41 AM CDT us Hipolito Armstrong MD CV ECHO PROCEDURES Final Result * eGFR (09/24/2024 2:44 AM CDT) [facility] eGFR >90 >=60 mL/min/1. 73 m2 Comment: [...] 2:44 AM CDT 09/24/2024 2:57 AM CDT us Vinayak Olmstead MD LAB BLOOD ORDERABLES Frances donnelly Result [facility] Department [place] [address] * (ABNORMAL) Manual Differential (09/24/2024 2:44 AM CDT) [facility] Differential Manual Cells [facility] Neutrophil abs 3.00 1.50 - 6.50 K/cumm [facility] Lymphocyte abs 2.42 0.80 - 3.30 K/cumm [facility] Monocyte abs 0.29 0.20 - 0.80 K/cumm [facility] Eosinophil abs 0.05 0.00 - 0.50 K/cumm [facility] Basophil abs 0.05 0.00 - 0.10 K/cumm [facility] Neutrophil pct 51.7 % [facility] Comment: Interpretive Data Percent cell count reference ranges are not reported, since discordance with absolute values may lead to misinterpretation of CBC data. Current Interpretive Data was last revised on 2017. Lymphocyte pct 40.0 % [facility] Comment: Interpretive Data Percent cell count reference ranges are not reported, since discordance with absolute values may lead to misinterpretation of CBC data. Current Interpretive Data was last revised on 2017. Monocyte pct 5.0 % [facility] Comment: Interpretive Data Percent cell count reference ranges are not reported, since discordance with absolute values may lead to misinterpretation of CBC data. Current Interpretive Data was last revised on 2017. Eosinophil pct 0.8 % [facility] Comment: Interpretive Data Percent cell count reference ranges are not reported, since discordance with absolute values may lead to misinterpretation of CBC data. Current Interpretive Data was last revised on 2017. Basophil pct 0.8 % [facility] Comment: Interpretive Data Percent cell count reference ranges are not reported, since discordance with absolute values may lead to misinterpretation of CBC data. Current Interpretive Data was last revised on 2017. Variant lymph pct 1.7(H) 0.0 - 0.0 % [facility] RBC morphology Present(A) [facility] Anisocytosis Slight(A) [facility] Macrocytes 3-7/HPF(A) [facility] Platelet estimate Decreased( A) [facility] Blood 09/24/2024 2:44 AM CDT 09/24/2024 2:57 AM CDT Vinayak Olmstead MD LAB BLOOD ORDERABLES Frances cony Result [facility] Department [place] [address] * (ABNORMAL) CBC without differential (09/24/2024 2:44 AM CDT) WBC 5.81 3.80 - 9.90 K/cumm Hgb 11.1(L) 11.9 - 15.5 g/dL [facility] Hct 32.1(L) 35.6 - 45.5 % [facility] Plt 117(L) 150 - 400 K/cumm [facility] MPV 9.3 9.1 - 12.3 fL [facility] RBC 3.46(L) 3.90 - 5.20 M/cumm [facility] MCV 92.8 81.3 - 96.4 fL [facility] MCH 32.1 27.1 - 33.3 pg [facility] MCHC 34.6 32.3 - 35.7 g/dL [facility] RDW CV 15.5(H) 11.1 - 14.9 % [facility] RDW SD 52.3(H) 35.7 - 48.1 fL [facility] NRBC abs 0.00 0.00 - 0.01 K/cumm [facility] Blood 09/24/2024 2:44 AM CDT 09/24/2024 2:57 AM CDT Vinayak Olmstead MD LAB BLOOD ORDERABLES Frances l Result Performing Organization Address City[facility]/ZIP Co de Phone Number [facility] [place] [address] * Phosphorus (09/24/2024 2:44 AM CDT) Pathologist [facility] Phosphorus, pl 2.8 2.3 - 4.5 mg/dL Blood 09/24/2024 2:44 AM CDT 09/24/2024 2:57 AM CDT Vinayak Olmstead MD LAB BLOOD ORDERABLES Frances l Result [facility] [place] [address] * Basic metabolic panel (09/24/2024 2:44 AM CDT) [facility] Sodium 138 135 - 145 mmol/L Potassium, pl 3.8 3.3 - 4.9 mmol/L [facility] Chloride 101 97 - 110 mmol/L [facility] CO2 27 22 - 32 mmol/L [facility] Anion gap 10 2 - 15 mmol/L [facility] BUN 6 6 - 25 mg/dL [facility] Creatinine 0.76 0.60 - 1.10 mg/dL [facility] Glucose 126 70 - 199 mg/dL [facility] Comment: Interpretive Data Fasting glucose >/= [...] 2022. Calcium 9.1 8.5 - 10.3 mg/dL [facility] Blood 09/24/2024 2:44 AM CDT 09/24/2024 2:57 AM CDT Narrative [facility] - 09/24/2024 3:27 AM CDT Daily except Friday and . Morning draw. Vinayak Olmstead MD LAB BLOOD ORDERABLES Frances donnelly Result [facility] [place] [address] * US Chest (09/23/2024 10:33 AM CDT) [...] David Gonzalez MD, PHD Vinayak Olmstead MD IM US PROCEDURES Final R esult * hCG, urine, qualitative (09/23/2024 12:14 AM CDT) HCG, ur Negative Negative Urine 09/23/2024 12:1 4 AM CDT 09/23/2024 12:24 AM CDT Vinayak Olmstead MD LAB URINE ORDERABLES Frances l Result [facility] Department [place] [address] * Blood culture Blood (09/22/2024 11:02 PM CDT) Report Final Report: No growth Blood 09/22/2024 11:0 2 PM CDT 09/22/2024 11:10 PM CDT Narrative [facility] - 09/27/2024 7:01 AM CDT Collection->Peripheral 1. [...] performance characteristics have been verified by the [facility] Microbiology Laboratory. For questions about this culture, contact the Microbiology Laboratory at [phone]. Interpretive data was last revised on 24. Vinayak Olmstead MD LAB MICROBIOLOGY - GENERA L ORDERABLES Final Result [facility] Department [place] [address] * Blood culture Blood (09/22/2024 11:02 PM CDT) Report Final Report: No growth Blood 09/22/2024 11:0 2 PM CDT 09/22/2024 11:12 PM CDT Narrative [facility] - 09/27/2024 7:00 AM CDT Collection->Peripheral 1. [...] performance characteristics have been verified by the [facility] Microbiology Laboratory. For questions about this culture, contact the Microbiology Laboratory at [phone]. Interpretive data was last revised on 24. us Vinayak Olmstead MD LAB MICROBIOLOGY - GENERA L ORDERABLES Final Result [facility] Department [place] [address] * Flow Leukemia/Lymphoma Blood (09/22/2024 9:52 PM CDT) Heath Stain Test Completed Leukemia/Lymp arianna Result See separate Surgical Pathology report. [facility] Blood 09/22/2024 9:52 PM CDT 09/22/2024 10:24 PM CDT us Ramy Aguilera MD LAB PATHOLOGY ORDERABLES Fin al Result [facility] Department [place] [address] * eGFR (09/22/2024 9:52 PM CDT) eGFR [...] MD LAB BLOOD ORDERABLES Frances l Result [facility] Department [place] [address] * (ABNORMAL) Manual Differential (09/22/2024 9:52 PM CDT) Differential Manual Cells Counted 120 [facility] Neutrophil abs 3.17 1.50 - 6.50 K/cumm [facility] Lymphocyte abs 3.11 0.80 - 3.30 K/cumm [facility] Monocyte abs 0.28 0.20 - 0.80 K/cumm [facility] Eosinophil abs 0.05 0.00 - 0.50 K/cumm [facility] Basophil abs 0.05 0.00 - 0.10 K/cumm [facility] Neutrophil pct 47.5 % [facility] Comment: Interpretive Data Percent cell count reference ranges are not reported, since discordance with absolute values may lead to misinterpretation of CBC data. Current Interpretive Data was last revised on 2017. Lymphocyte pct 40.0 % [facility] Comment: Interpretive Data Percent cell count reference ranges are not reported, since discordance with absolute values may lead to misinterpretation of CBC data. Current Interpretive Data was last revised on 2017. Monocyte pct 4.2 % [facility] Comment: Interpretive Data Percent cell count reference ranges are not reported, since discordance with absolute values may lead to misinterpretation of CBC data. Current Interpretive Data was last revised on 2017. Eosinophil pct 0.8 % [facility] Comment: Interpretive Data Percent cell count reference ranges are not reported, since discordance with absolute values may lead to misinterpretation of CBC data. Current Interpretive Data was last revised on 2017. Basophil pct 0.8 % [facility] Comment: Interpretive Data Percent cell count reference ranges are not reported, since discordance with absolute values may lead to misinterpretation of CBC data. Current Interpretive Data was last revised on 2017. Variant lymph pct 6.7(H) 0.0 - 0.0 % [facility] RBC morphology Present(A) [facility] Anisocytosis Slight(A) [facility] Platelet estimate Decreased( A) [facility] Blood 09/22/2024 9:52 PM CDT 09/22/2024 10:03 PM CDT Vinayak Olmstead MD LAB BLOOD ORDERABLES Frances l Result [facility] Department [place] [address] * (ABNORMAL) aPTT (09/22/2024 9:52 PM CDT) [...] ORDERABLES Frances l Result Performing Organization Address [facility] Co de Phone Number [facility] [place] [address] * Protime-INR (09/22/2024 9:52 PM CDT) PT 12.1 9.7 - 13.0 sec INR 1.12 0.90 - 1.20 [facility] Comment: Interpretive data Oral anticoagulant therapeutic ranges: Venous thromboembolism prophylaxis or treatment: 2.0-3.0 CARDIOLOGY Standard range: 2.0-3.0 High-intensity range: 2.5-3.5 Refer to indication-specific guidelines for appropriate target ranges for prosthetic heart valve replacement. Current interpretive data was last revised on 2019. Blood 09/22/2024 9:52 PM CDT 09/22/2024 10:20 PM CDT Vinayak Olmstead MD LAB BLOOD ORDERABLES Frances l Result Performing Organization Address [facility] de Phone Number [facility] [place] [address] * Fibrinogen (09/22/2024 9:52 PM CDT) Fibrinogen 212 170 - 400 mg/dL Blood 09/22/2024 9:52 PM CDT 09/22/2024 10:20 PM CDT Vinayak Olmstead MD LAB BLOOD ORDERABLES Frances l Result Performing Organization Address [facility] Co de Phone Number [facility] [place] [address] * (ABNORMAL) CBC without differential (09/22/2024 9:52 PM CDT) WBC 6.67 3.80 - 9.90 K/cumm Hgb 11.7(L) 11.9 - 15.5 g/dL [facility] Hct 33.5(L) 35.6 - 45.5 % [facility] Plt 130(L) 150 - 400 K/cumm [facility] MPV 9.1 9.1 - 12.3 fL [facility] RBC 3.68(L) 3.90 - 5.20 M/cumm [facility] MCV 91.0 81.3 - 96.4 fL [facility] MCH 31.8 27.1 - 33.3 pg [facility] MCHC 34.9 32.3 - 35.7 g/dL [facility] RDW CV 15.6(H) 11.1 - 14.9 % [facility] RDW SD 50.4(H) 35.7 - 48.1 fL [facility] NRBC abs 0.00 0.00 - 0.01 K/cumm [facility] Blood 09/22/2024 9:52 PM CDT 09/22/2024 10:03 PM CDT Vinayak Olmstead MD LAB BLOOD ORDERABLES Frances l Result Performing Organization Address City[facility]/ZIP Co de Phone Number [facility] [place] [address] * Type and screen (09/22/2024 9:52 PM CDT) Dilma, indirect Negative ABO Rh A Positive [facility] Blood 09/22/2024 9:52 PM CDT 09/22/2024 10:43 PM CDT Narrative [facility] - 09/22/2024 11:34 PM CDT Has the patient had Daratumumab or Isatuximab in the past 6 months?->Unknown Vinayak Olmstead MD LAB BLOOD BANK TEST ORDER TANIA Final Result [facility] [place] [address] * hCG, blood, quantitative (09/22/2024 9:52 PM CDT) hCG, quant <5.0 0.0 - [...] ORDERABLES Final R esult Performing Organization Address [facility] Co de Phone Number [facility] Department [place] [address] * Uric acid (09/22/2024 9:52 PM CDT) Pathologist [facility] Uric acid 3.4 2.5 - 7.0 mg/dL Blood 09/22/2024 9:52 PM CDT 09/22/2024 10:03 PM CDT Vinayak Olmstead MD LAB BLOOD ORDERABLES Frances l Result Performing Organization Address [facility] Co de Phone Number [facility] Department [place] [address] * Phosphorus (09/22/2024 9:52 PM CDT) Phosphorus, pl 2.6 2.3 - 4.5 mg/dL Blood 09/22/2024 9:52 PM CDT 09/22/2024 10:03 PM CDT Vinayak Olmstead MD LAB BLOOD ORDERABLES Frances l Result Performing Organization Address [facility] Co de Phone Number [facility] Department [place] [address] * Magnesium (09/22/2024 9:52 PM CDT) [facility] Magnesium 1.6 1.4 - 2.5 mg/dL Blood 09/22/2024 9:52 PM CDT 09/22/2024 10:03 PM CDT Vinayak Olmstead MD LAB BLOOD ORDERABLES Frances l Result Performing Organization Address City[facility]/ZIP Co de Phone Number [facility] [place] [address] * Lactate dehydrogenase (LD) (09/22/2024 9:52 PM CDT) [facility] Lactate dehydrogenase (LDH) 212 100 - 250 Units/L Blood 09/22/2024 9:52 PM CDT 09/22/2024 10:03 PM CDT Vinayak Olmstead MD LAB BLOOD ORDERABLES Frances l Result Performing Organization Address [facility] [place] [address] * (ABNORMAL) Comprehensive metabolic panel (09/22/2024 9:52 PM CDT) [facility] Sodium 139 135 - 145 mmol/L Potassium, pl 3.5 3.3 - 4.9 mmol/L [facility] Chloride 102 97 - 110 mmol/L [facility] CO2 27 22 - 32 mmol/L [facility] Anion gap 10 2 - 15 mmol/L [facility] BUN 3(L) 6 - 25 mg/dL [facility] Creatinine 0.64 0.60 - 1.10 mg/dL [facility] Glucose 113 70 - 199 mg/dL [facility] Comment: Interpretive Data Fasting glucose >/= [...] Calcium 8.9 8.5 - 10.3 mg/dL [facility] Bilirubin, total 1.1 0.1 - 1.2 mg/dL [facility] Protein, pl 6.6 6.5 - 8.5 g/dL [facility] Albumin 4.1 3.5 - 5.0 g/dL [facility] Alk phos 184(H) 40 - 130 Units/L [facility] ALT 15 7 - 45 Units/L [facility] AST 23 10 - 45 Units/L [facility] Blood 09/22/2024 9:52 PM CDT 09/22/2024 10:03 PM CDT Vinayak Olmstead MD LAB BLOOD ORDERABLES Frances l Result [facility] Department [place] [address] * Surgical pathology (09/22/2024 9:46 PM CDT) Peripheral Blood For Pathologist Review 09/22/2024 9:46 PM CDT 09/23/2024 3:14 PM CDT Narrative 09/24/2024 8:32 PM CDT EPIC results best viewed via link to PDF [facility] [place] [address] Note to Patients: This report may contain [...] Gender: F : 1990 (Age: 34) Address: [address] [place] [address] Hospital #: [id number] Taken:09/22/2024 Received:09/23/2024 Reported: 09/24/2024 [facility] Inpatient Service: BoneMarTranspl Location: [place] [address] Physician(s): Ramy Aguilera M.D. 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 Flow cytometry was performed using antibodies to the following cellular antigens: CD45, CD34, CD19, CD20, Leota, Lambda, CD10, CD5, CD200, CD38, CD2, CD3, [...] Surgical Pathology and Flow Cytometry Departments at [facility] as part of an ongoing it quality assurance analyst program and in compliance with federally mandated [...] Surgical Pathology and Flow Cytometry Departments of [facility]. It has not been cleared or approved by the U. S. Food and Drug Administration. IMAGES AND SCANNED DOCUMENTS, IF INCLUDED, ONLY VIEWABLE IN PDF VERSION OF REPORT Ramy Aguilera MD LAB PATHOLOGY ORDERABLES Fin al Result * ECG 12 lead (09/22/2024 5:13 PM CDT) Ventricular Rate EKG/Min 109 BPM [facility] Atrial Rate 109 BPM [facility] MN-Interval (MSEC) 122 ms [facility] QRS-Interval (MSEC) 90 ms [facility] QT-Interval (MSEC) 354 ms [facility] QTc 476 ms [facility] P [place] 61 degrees [facility] R [place] 59 degrees [facility] T [place] 9 degrees [facility] Diagnosis Sinus tachycardia Otherwise normal ECG When compared with ECG of 13-SEP-2024 15:43, No significant change was found Confirmed by Tani Yang MD ([id number]) on 09/27/2024 8:23:27 AM [facility] 09/22/2024 5:13 PM CDT 09/27/2024 8:23 AM CDT Vinayak Olmstead MD ECG ORDERABLES Final Res ult [facility] * PET/CT FDG Skull to Thigh (09/22/2024 [...] FDG-PET/CT IMAGING DATE OF STUDY: 09/22/2024 SCANNER: [facility] [employer] Overnight Vision (NV1). This is a high-resolution scanner, which [...] obtained. The study was interpreted on the [employer] workstation. The mean liver SUV (reported for quality engineering manager purposes) is 1.8. The total scanned area [...] FDG-PET/CT IMAGING DATE OF STUDY: 09/22/2024 SCANNER: [facility] Meal Mantra (NV1). This is a high-resolution scanner, which [...] obtained. The study was interpreted on the [employer] workstation. The mean liver SUV (reported for quality engineering manager purposes) is 1.8. The total scanned area [...] 2022. Barbiturates, ur Not Detected CutOff 200ng/mL [facility] Comment: Interpretive Data - Barbiturates: Samples containing greater than 200 ng/mL secobarbital or other cross-reacting barbiturate compounds are reported as positive. False positive and false negative results are possible. Confirmatory testing required for definitive results. Current Interpretive Data was last reviewed 2022. Benzodiazepines, ur Screen Positive, presumptive (A) CutOff 100ng/mL [facility] Comment: Interpretive Data - Benzodiazepines: Samples containing [...] Cocaine, ur Not Detected CutOff 150ng/mL [facility] Comment: Interpretive Data - Cocaine: Samples containing greater than 150 ng/mL benzoylecgonine or other cross- reacting compounds are reported as positive. False positive and false negative results are possible. Confirmatory testing required for definitive results. Current Interpretive Data was last reviewed 2022. Fentanyl, Ur Not Detected CutOff 5 ng/mL [facility] Comment: Interpretive Data - Fentanyl: Samples containing greater than 5 ng/mL norfentanyl, fentanyl, or other cross-reacting fentanyl compounds are reported as positive. False positive and false negative results are possible. Confirmatory testing required for definitive results. Current Interpretive Data was last reviewed 2023. Methadone, ur Not Detected CutOff 300ng/mL [facility] Comment: Interpretive Data - Methadone: Samples containing greater than 300 ng/mL d,l-methadone or other cross-reacting compounds are reported as positive. False positive and false negative results are possible. Confirmatory testing required for definitive results. Current Interpretive Data was last reviewed 2022. Opiates, ur Not Detected CutOff 300ng/mL [facility] Comment: Interpretive Data - Opiates: Samples containing greater than 300 ng/mL morphine or other cross-reacting compounds are reported as positive. False positive and false negative results are possible. Confirmatory testing required for definitive results. Current Interpretive Data was last reviewed 2022. Oxycodone, ur Not Detected CutOff 100ng/mL [facility] Comment: Interpretive Data - Oxycodone: Samples containing greater than 100 ng/mL oxycodone or other cross-reacting compounds are reported as positive. False positive and false negative results are possible. Confirmatory testing required for definitive results. Current Interpretive Data was last reviewed 2022. Phencyclidine, ur Not Detected CutOff 25 ng/mL [facility] Comment: Interpretive Data - Phencyclidine: Samples containing greater than 25 ng/mL phencyclidine or other cross-reacting compounds are reported as positive. False positive and false negative results are possible. Confirmatory testing required for definitive results. Current Interpretive Data was last reviewed 2022. Urine Creatinine 52 mg/dL [facility] Comment: Interpretive Data Urine Creatinine: < 10 mg/dL is extremely dilute = or > 10 but < 20 mg/dL is dilute = or > 20 mg/dL is normal Current Interpretive Data was last revised on 2017. Urine 09/22/2024 1:54 AM CDT 09/22/2024 1:54 AM CDT Narrative [facility] - 09/22/2024 2:43 AM CDT Drug of Abuse screening is performed by immunoassay for medical purposes only. This is not to be used for Pain Management purposes. If Detected, confirmation testing will be performed for Amphetamines, Cocaine, Fentanyl, Methadone, Opiates, Oxycodone or Phencyclidine. Ramy Aguilera MD LAB URINE ORDERABLES Final R esult [facility] Department of Laboratories [place], [place] [id number] * (ABNORMAL) Urinalysis reflex to microscopic and culture Urine (09/22/2024 1:54 AM CDT) Color, ur Straw Yellow Clarity, ur Clear Clear [facility] Specific gravity, ur 1.007 1.003 - 1.030 [facility] pH, urine 7.0 [facility] Comment: Interpretive Data U rine pH is affected by diet, medications, systemic acid-base disturbances, and renal tubular function. pH may affect urinary stone formation. For example, urine pH below 6.0 may help reduce the tendency for calcium phosphate stones and pH greater than 6.0 may reduce the tendency for uric acid stone formation. Source: [facility] Current Interpretive Data was last revised on 2017 Protein, ur ql Negative Negative [facility] Glucose, ur ql Negative Negative [facility] Ketones, ur Negative Negative [facility] Bilirubin, ur Negative Negative [facility] Blood, ur Negative Negative [facility] Urobilinogen, ur <2.0 <2.0 mg/dL [facility] Nitrite, ur Positive(A) Negative [facility] Leukocyte esterase, ur Trace(A) Negative [facility] UA reflex comment Reflex to microscopic UA will be performed. [facility] Urine 09/22/2024 1:54 AM CDT 09/22/2024 2:00 AM CDT Terence Rader MD LAB MICROBIOLOGY - GENERAL ORD ERABLES Final Result Performing Organization Address City/[facility]/ZIP Co de Phone Number [facility] Department [place] [address] * (ABNORMAL) Urinalysis, microscopic only (09/22/2024 1:54 AM CDT) WBC, ur 6-10(A) 0 - 5 /HPF RBC, ur 0-2 0 - 2 /HPF [facility] Epithelial cells, squamous, ur 1-5 0 - 5 /HPF [facility] Bacteria, ur Trace(A) [facility] Culture Reflex Comment Reflex conditions for urine culture (WBC >10) not met. [facility] Urine 09/22/2024 1:54 AM CDT 09/22/2024 2:00 AM CDT Terence Rader MD LAB URINE ORDERABLES Final Res ult Performing Organization Address City/[facility]/ZIP Co de Phone Number [facility] Department [place] [address] * eGFR (09/22/2024 12:34 AM CDT) Pathologist [facility] eGFR >90 >=60 mL/min/1. 73 m2 Comment: [...] MD LAB BLOOD ORDERABLES Final R esult [facility] Department [place] [address] * Differential, auto (09/22/2024 12:34 AM CDT) Pathologist [facility] Neutrophil abs 2.39 1.50 - 6.50 K/cumm Imm gran abs 0.02 0.00 - 0.10 K/cumm [facility] Lymphocyte abs 2.34 0.80 - 3.30 K/cumm [facility] Monocyte abs 0.29 0.20 - 0.80 K/cumm [facility] Eosinophil abs 0.05 0.00 - 0.50 K/cumm [facility] Basophil abs 0.03 0.00 - 0.10 K/cumm [facility] Neutrophil pct 46.6 % [facility] Comment: Interpretive Data Percent cell count reference ranges are not reported, since discordance with absolute values may lead to misinterpretation of CBC data. Current Interpretive Data was last revised on 2017. Imm gran pct 0.4 % [facility] Comment: Interpretive Data Percent cell count reference ranges are not reported, since discordance with absolute values may lead to misinterpretation of CBC data. Current Interpretive Data was last revised on 2017. Lymphocyte pct 45.7 % [facility] Comment: Interpretive Data Percent cell count reference ranges are not reported, since discordance with absolute values may lead to misinterpretation of CBC data. Current Interpretive Data was last revised on 2017. Monocyte pct 5.7 % [facility] Comment: Interpretive Data Percent cell count reference ranges are not reported, since discordance with absolute values may lead to misinterpretation of CBC data. Current Interpretive Data was last revised on 2017. Eosinophil pct 1.0 % [facility] Comment: Interpretive Data Percent cell count reference ranges are not reported, since discordance with absolute values may lead to misinterpretation of CBC data. Current Interpretive Data was last revised on 2017. Basophil pct 0.6 % [facility] Comment: Interpretive Data Percent cell count reference ranges are not reported, since discordance with absolute values may lead to misinterpretation of CBC data. Current Interpretive Data was last revised on 2017. Blood 09/22/2024 12:3 4 AM CDT 09/22/2024 1:14 AM CDT us Terence Rader MD LAB BLOOD ORDERABLES Final Res ult [facility] [place] [address] * (ABNORMAL) CBC with auto differential (09/22/2024 12:34 AM CDT) WBC 5.12 3.80 - 9.90 K/cumm Hgb 11.6(L) 11.9 - 15.5 g/dL [facility] Hct 32.5(L) 35.6 - 45.5 % [facility] Plt 144(L) 150 - 400 K/cumm [facility] MPV 9.1 9.1 - 12.3 fL [facility] RBC 3.58(L) 3.90 - 5.20 M/cumm [facility] MCV 90.8 81.3 - 96.4 fL [facility] MCH 32.4 27.1 - 33.3 pg [facility] MCHC 35.7 32.3 - 35.7 g/dL [facility] RDW CV 15.5(H) 11.1 - 14.9 % [facility] RDW SD 49.6(H) 35.7 - 48.1 fL [facility] NRBC abs 0.00 0.00 - 0.01 K/cumm [facility] Blood 09/22/2024 12:3 4 AM CDT 09/22/2024 1:14 AM CDT Terence Rader MD LAB BLOOD ORDERABLES Final Res ult [facility] [employer] [place] [address] * Uric acid (09/22/2024 12:34 AM CDT) Uric acid 3.1 2.5 - 7.0 mg/dL Blood 09/22/2024 12:3 4 AM CDT 09/22/2024 1:17 AM CDT Terence Rader MD LAB BLOOD ORDERABLES Final Res ult [facility] [place] [address] * Phosphorus (09/22/2024 12:34 AM CDT) Phosphorus, pl 3.0 2.3 - 4.5 mg/dL Blood 09/22/2024 12:3 4 AM CDT 09/22/2024 1:17 AM CDT Terence Rader MD LAB BLOOD ORDERABLES Final Res ult Performing Organization Address [facility] Co de Phone Number [facility] [place] [address] * (ABNORMAL) Magnesium (09/22/2024 12:34 AM CDT) Pathologist [facility] Magnesium 1.3(L) 1.4 - 2.5 mg/dL Blood 09/22/2024 12:3 4 AM CDT 09/22/2024 1:17 AM CDT Ramy Aguilera MD LAB BLOOD ORDERABLES Final R esult Performing Organization Address [facility] de Phone Number [facility] [place] [address] * Lactate dehydrogenase (LD) (09/22/2024 12:34 AM CDT) Pathologist [facility] Lactate dehydrogenase (LDH) 245 100 - 250 Units/L Blood 09/22/2024 12:3 4 AM CDT 09/22/2024 1:17 AM CDT Ramy Aguilera MD LAB BLOOD ORDERABLES Final R esult Performing Organization Address [facility] [place] [address] * (ABNORMAL) Comprehensive metabolic panel (09/22/2024 12:34 AM CDT) Pathologist [facility] Sodium 139 135 - 145 mmol/L Potassium, pl 2.9(L) 3.3 - 4.9 mmol/L [facility] Chloride 100 97 - 110 mmol/L [facility] CO2 26 22 - 32 mmol/L [facility] Anion gap 13 2 - 15 mmol/L [facility] BUN 3(L) 6 - 25 mg/dL [facility] Creatinine 0.66 0.60 - 1.10 mg/dL [facility] Glucose 90 70 - 199 mg/dL [facility] Comment: Interpretive Data Fasting glucose >/= [...] 2022. Calcium 8.9 8.5 - 10.3 mg/dL [facility] Bilirubin, total 0.9 0.1 - 1.2 mg/dL [facility] Protein, pl 6.7 6.5 - 8.5 g/dL [facility] Albumin 3.9 3.5 - 5.0 g/dL [facility] Alk phos 186(H) 40 - 130 Units/L [facility] ALT 16 7 - 45 Units/L [facility] AST 30 10 - 45 Units/L [facility] Blood 09/22/2024 12:3 4 AM CDT 09/22/2024 1:17 AM CDT us Ramy Aguilera MD LAB BLOOD ORDERABLES Final R esult [facility] [place] [address] * POCT Rapid HIV Antibody Community Screening-Deann Eligible (09/21/2024 9:55 PM CDT) [facility] Rapid HIV, POC Negative Negative Lot Number [id number] QC Control Line Acceptable Blood 09/21/2024 9:55 PM CDT us Lety Anisha Zanaboni MD POINT OF CARE TEST OR DERABLES Final Result * Blastomyces antibody, EIA, serum Blood (09/17/2024 5:49 PM CDT) Pathologist [facility] Blastomyces Antibody Negative Negative [facility] Comment: A single negative result does not exclude the diagnosis of blastomycosis. Repeat testing on a new sample in 7-14 days if clinically indicated. Test Performed by: [facility] [address] [place] [address] Office Bookkeeper: Trice Obrien Ph.D.; CLIA# [id number] Blood 09/17/2024 5:49 PM CDT 09/17/2024 7:15 PM CDT Jovanny Goss MD LAB MICROBIOLOGY - GENERAL ORDER TANIA Final Result Performing Organization Address [facility]/ZIP Co de Phone Number [facility] Department [place] [address] [facility] * Check Sample (09/17/2024 5:49 PM CDT) Pathologist [facility] ABO Rh A Positive [facility] OTHER 09/17/2024 5:49 PM CDT 09/17/2024 5:59 PM CDT us Ramy Aguilera MD LAB BLOOD ORDERABLES Final R esult Performing Organization Address City/[facility]/ZIP Co de Phone Number [facility] [place] [address] [facility] * eGFR (09/17/2024 4:51 PM CDT) [facility] eGFR >90 >=60 mL/min/1. 73 m2 Comment: [...] of Race in Diagnosing Kidney Disease, JASN 202). The CKD-EPI equation should not be used for patients with unstable renal function and has not been validated in children and those over 70. Current interpretive data was last reviewed 2021. Blood 09/17/2024 4:51 PM CDT 09/17/2024 5:02 PM CDT us Jovanny Goss MD LAB BLOOD ORDERABLES Final Resul t [facility] [place] [address] * (ABNORMAL) Differential, auto (09/17/2024 4:51 PM CDT) Neutrophil abs 2.39 1.50 - 6.50 K/cumm Imm gran abs 0.02 0.00 - 0.10 K/cumm [facility] Lymphocyte abs 3.57(H) 0.80 - 3.30 K/cumm [facility] Monocyte abs 0.33 0.20 - 0.80 K/cumm [facility] Eosinophil abs 0.07 0.00 - 0.50 K/cumm [facility] Basophil abs 0.04 0.00 - 0.10 K/cumm [facility] Neutrophil pct 37.3 % [facility] Comment: Interpretive Data Percent cell count reference ranges are not reported, since discordance with absolute values may lead to misinterpretation of CBC data. Current Interpretive Data was last revised on 2017. Imm gran pct 0.3 % [facility] Comment: Interpretive Data Percent cell count reference ranges are not reported, since discordance with absolute values may lead to misinterpretation of CBC data. Current Interpretive Data was last revised on 2017. Lymphocyte pct 55.6 % [facility] Comment: Interpretive Data Percent cell count reference ranges are not reported, since discordance with absolute values may lead to misinterpretation of CBC data. Current Interpretive Data was last revised on 2017. Monocyte pct 5.1 % [facility] Comment: Interpretive Data Percent cell count reference ranges are not reported, since discordance with absolute values may lead to misinterpretation of CBC data. Current Interpretive Data was last revised on 2017. Eosinophil pct 1.1 % [facility] Comment: Interpretive Data Percent cell count reference ranges are not reported, since discordance with absolute values may lead to misinterpretation of CBC data. Current Interpretive Data was last revised on 2017. Basophil pct 0.6 % [facility] Comment: Interpretive Data Percent cell count reference ranges are not reported, since discordance with absolute values may lead to misinterpretation of CBC data. Current Interpretive Data was last revised on 2017. Blood 09/17/2024 4:51 PM CDT 09/17/2024 5:03 PM CDT us Jovanny Goss MD LAB BLOOD ORDERABLES Final Resul t [facility] [place] [address] * (ABNORMAL) CBC with auto differential (09/17/2024 4:51 PM CDT) WBC 6.42 3.80 - 9.90 K/cumm Hgb 11.5(L) 11.9 - 15.5 g/dL [facility] Hct 33.1(L) 35.6 - 45.5 % [facility] Plt 172 150 - 400 K/cumm [facility] MPV 9.1 9.1 - 12.3 fL [facility] RBC 3.63(L) 3.90 - 5.20 M/cumm [facility] MCV 91.2 81.3 - 96.4 fL [facility] MCH 31.7 27.1 - 33.3 pg [facility] MCHC 34.7 32.3 - 35.7 g/dL [facility] RDW CV 15.1(H) 11.1 - 14.9 % [facility] RDW SD 50.4(H) 35.7 - 48.1 fL [facility] NRBC abs 0.00 0.00 - 0.01 K/cumm [facility] Blood 09/17/2024 4:51 PM CDT 09/17/2024 5:03 PM CDT us Jovanny Goss MD LAB BLOOD ORDERABLES Final Resul t Performing Organization Address City/[facility]/ZIP Co de Phone Number [facility] [place] [address] * Type and screen (09/17/2024 4:51 PM CDT) Pathologist [facility] Dilma, indirect Negative ABO Rh A Positive [facility] Blood 09/17/2024 4:51 PM CDT 09/17/2024 5:02 PM CDT Narrative [facility] - 09/17/2024 5:54 PM CDT Has the patient had Daratumumab or Isatuximab in the past 6 months?->Unknown us Jovanny Goss MD LAB BLOOD BANK TEST ORDERABLES F inal Result Performing Organization Address [facility] Co de Phone Number [facility] [place] [address] * (ABNORMAL) Phosphorus (09/17/2024 4:51 PM CDT) Pathologist [facility] Phosphorus, pl 2.2(L) 2.3 - 4.5 mg/dL Blood 09/17/2024 4:51 PM CDT 09/17/2024 5:02 PM CDT us Jovanny Goss MD LAB BLOOD ORDERABLES Final Resul t Performing Organization Address [facility] Co de Phone Number [facility] [place] [address] * Magnesium (09/17/2024 4:51 PM CDT) Magnesium 1.7 1.4 - 2.5 mg/dL Blood 09/17/2024 4:51 PM CDT 09/17/2024 5:02 PM CDT us Jovanny Goss MD LAB BLOOD ORDERABLES Final Resul t [facility] [place] [address] * (ABNORMAL) Comprehensive metabolic panel (09/17/2024 4:51 PM CDT) Pathologist [facility] Sodium 143 135 - 145 mmol/L Potassium, pl 3.0(L) 3.3 - 4.9 mmol/L [facility] Chloride 102 97 - 110 mmol/L [facility] CO2 31 22 - 32 mmol/L [facility] Anion gap 10 2 - 15 mmol/L [facility] BUN 3(L) 6 - 25 mg/dL [facility] Creatinine 0.63 0.60 - 1.10 mg/dL [facility] Glucose 88 70 - 199 mg/dL [facility] Comment: Interpretive Data Fasting glucose >/= [...] 2022. Calcium 8.4(L) 8.5 - 10.3 mg/dL [facility] Bilirubin, total 0.4 0.1 - 1.2 mg/dL [facility] Protein, pl 6.1(L) 6.5 - 8.5 g/dL [facility] Albumin 3.7 3.5 - 5.0 g/dL [facility] Alk phos 165(H) 40 - 130 Units/L [facility] ALT 9 7 - 45 Units/L [facility] AST 20 10 - 45 Units/L [facility] Blood 09/17/2024 4:51 PM CDT 09/17/2024 5:02 PM CDT us Jovanny Goss MD LAB BLOOD ORDERABLES Final Resul t Performing Organization Address City/[facility]/ZIP Co de Phone Number [facility] [place] [address] * eGFR (09/16/2024 10:20 AM CDT) eGFR [...] was last reviewed 2021. Testing performed by: [facility], [address] [place] [address]., [address] Blood 09/16/2024 10:2 0 AM CDT 09/16/2024 10:23 AM CDT us Ramy Aguilera MD LAB BLOOD ORDERABLES Final R esult [facility] [address] [facility] [place] [address] * Differential, auto (09/16/2024 10:20 AM CDT) Neutrophil abs 3.45 1.50 - 6.50 K/cumm Comment:Testing performed by : [address] [address] Imm gran abs 0.02 0.00 - 0.10 K/cumm [facility] Comment:Testing performed by : [address] [address] Lymphocyte abs 2.81 0.80 - 3.30 K/cumm [facility] Comment:Testing performed by : [address] [address] Monocyte abs 0.37 0.20 - 0.80 K/cumm [facility] Comment:Testing performed by : [address] [address] Eosinophil abs 0.08 0.00 - 0.50 K/cumm [facility] Comment:Testing performed by : [address] [address] Basophil abs 0.04 0.00 - 0.10 K/cumm [facility] Comment:Testing performed by : [address] [address] Neutrophil pct 50.9 % [facility] Comment: Interpretive Data Percent cell count reference ranges are not reported, since discordance with absolute values may lead to misinterpretation of CBC data. Current Interpretive Data was last revised on 2017. Testing performed by: [address] [address] Imm gran pct 0.3 % [facility] Comment: Interpretive Data Percent cell count reference ranges are not reported, since discordance with absolute values may lead to misinterpretation of CBC data. Current Interpretive Data was last revised on 2017. Testing performed by: [address] [address] Lymphocyte pct 41.5 % [facility] Comment: Interpretive Data Percent cell count reference ranges are not reported, since discordance with absolute values may lead to misinterpretation of CBC data. Current Interpretive Data was last revised on 2017. Testing performed by: [address] [address] Monocyte pct 5.5 % [facility] Comment: Interpretive Data Percent cell count reference ranges are not reported, since discordance with absolute values may lead to misinterpretation of CBC data. Current Interpretive Data was last revised on 2017. Testing performed by: [address] [address] Eosinophil pct 1.2 % [facility] Comment: Interpretive Data Percent cell count reference ranges are not reported, since discordance with absolute values may lead to misinterpretation of CBC data. Current Interpretive Data was last revised on 2017. Testing performed by: [address] [address] Basophil pct 0.6 % [facility] Comment: Interpretive Data Percent cell count reference ranges are not reported, since discordance with absolute values may lead to misinterpretation of CBC data. Current Interpretive Data was last revised on 2017. Testing performed by: [address] [address] Blood 09/16/2024 10:2 0 AM CDT 09/16/2024 10:23 AM CDT us Ramy Aguilera MD LAB BLOOD ORDERABLES Final R esult [facility] [address] [facility] Department of Laboratories [place], [place] [id number] * (ABNORMAL) CBC with auto differential (09/16/2024 10:20 AM CDT) WBC 6.77 3.80 - 9.90 K/cumm Comment:Testing performed by : [address] [address] Hgb 12.2 11.9 - 15.5 g/dL [facility] Comment:Testing performed by : [address] [address] Hct 35.4(L) 35.6 - 45.5 % [facility] Comment:Testing performed by : [address] [address] Plt 171 150 - 400 K/cumm [facility] Comment:Testing performed by : [address] [address] MPV 9.0(L) 9.1 - 12.3 fL [facility] Comment:Testing performed by : [address] [address] RBC 3.90 3.90 - 5.20 M/cumm [facility] Comment:Testing performed by : [address] [address] MCV 90.8 81.3 - 96.4 fL [facility] Comment:Testing performed by : [address] [address] MCH 31.3 27.1 - 33.3 pg [facility] Comment:Testing performed by : [address] [address] MCHC 34.5 32.3 - 35.7 g/dL [facility] Comment:Testing performed by : [address] [address] RDW CV 15.3(H) 11.1 - 14.9 % [facility] Comment:Testing performed by : [address] [address] RDW SD 49.8(H) 35.7 - 48.1 fL [facility] Comment:Testing performed by : [address] [address] NRBC abs 0.00 0.00 - 0.01 K/cumm [facility] Comment:Testing performed by : [address] [address] ANC Prelim 3.45 1.50 - 6.50 K/cumm [facility] Comment: Interpretive Data The rapid ANC is a preliminary automated count and may vary from the final ANC (Neut Abs) reported in the WBC differential that follows. Current interpretive data was last revised 2024. Testing performed by: [address] [address] Blood 09/16/2024 10:2 0 AM CDT 09/16/2024 10:23 AM CDT Ramy Aguilera MD LAB BLOOD ORDERABLES Final R esult Performing Organization Address City/[facility] Co de Phone Number [facility] [address] [address] * Lactate dehydrogenase (LD) (09/16/2024 10:20 AM CDT) Pathologist [facility] Lactate dehydrogenase (LDH) 186 100 - 250 Units/L Comment:Testing performed by : [address] [address] Blood 09/16/2024 10:2 0 AM CDT 09/16/2024 10:23 AM CDT Ramy Aguilera MD LAB BLOOD ORDERABLES Final R esult Performing Organization Address City/[facility] de Phone Number [facility] [address] [place] [address] * (ABNORMAL) Comprehensive metabolic panel (09/16/2024 10:20 AM CDT) [facility] Sodium 143 135 - 145 mmol/L Comment:Testing performed by : [address] [address] Potassium, pl 3.4 3.3 - 4.9 mmol/L [facility] Comment:Testing performed by : [address] [address] Chloride 101 97 - 110 mmol/L [facility] Comment:Testing performed by : [address] [address] CO2 30 22 - 32 mmol/L [facility] Comment:Testing performed by : [address] [address] Anion gap 12 2 - 15 mmol/L [facility] Comment:Testing performed by : [address] [address] BUN 4(L) 6 - 25 mg/dL JOSELYN Comment:Testing performed by : [address] [address] Creatinine 0.60 0.60 - 1.10 mg/dL JOSELYN Comment:Testing performed by : [address] [address] Glucose 101 70 - 199 mg/dL [facility] Comment: Interpretive Data Fasting glucose >/= 126 [...] was last revised 2022. Testing performed by: [address] [address] Calcium 8.8 8.5 - 10.3 mg/dL [facility] Comment:Testing performed by : [address] [address] Bilirubin, total 0.6 0.1 - 1.2 mg/dL [facility] Comment:Testing performed by : [address] [address] Protein, pl 6.1(L) 6.5 - 8.5 g/dL [facility] Comment:Testing performed by : [address] [address] Albumin 4.2 3.5 - 5.0 g/dL [facility] Comment:Testing performed by : [address] [address] Alk phos 173(H) 40 - 130 Units/L [facility] Comment:Testing performed by : [address] [address] ALT 7 7 - 45 Units/L [facility] Comment:Testing performed by : [address] [address] AST 19 10 - 45 Units/L [facility] Comment:Testing performed by : [address] [address] Blood 09/16/2024 10:2 0 AM CDT 09/16/2024 10:23 AM CDT Ramy Aguilera MD LAB BLOOD ORDERABLES Final R esult JOSELYN [address] [facility] [place] [address] * Surgical pathology (09/15/2024 9:55 AM CDT) Tissue (Miscellaneous) 09/15/2024 9:55 AM CDT 09/15/2024 9:55 AM CDT Narrative [facility] - 09/29/2024 8:48 PM CDT EPIC results best viewed via link to PDF [facility] Pathology Consult Service [facility] [address], [place] [address] Note to Patients: This report may contain [...] SURGICAL PATHOLOGY REPORT * Consult Report * [facility] is providing an additional review of previously collected tissue. FINAL Patient Name: SOHA MARRERO Address: [address] [place], [place] [id number] Gender: F : 1990 (Age: 34) [place] [employer] #: [id number] Patient Type: [facility] Location: UNKNOWN Taken: 09/15/2024 Received: 09/15/2024 Accessioned: 09/16/2024 Reported: 09/29/2024 Physician(s): Ramy Aguilera M.D. [facility] Department of Pathology [facility] [address] [address] P: [phone] F: [phone] Diagnosis: Consult material received from [place], [place] (OSC: [id number]; 12/18/2022). Lymph node, axillary, core biopsy: - Follicular lymphoma, low grade in this biopsy jili09/17/2024 12:56 By this signature, I attest that [...] cells is identified. Stains were performed at [facility] on the provided outside block: Neoplastic lymphocytes are [id number] B-cells co-expressing CD10, BCL-6 and BCL-2. Immunostain for CD21 highlights follicular dendritic meshwork. Immunostain for CD3 highlights T- cells. Proliferation rate, as assessed by immunostain for Ki-67, is approximately 20%. CyclinD1 is negative. PAX5 is positive. Flow cytometry (performed outside) Leota light chain restricted CD10 positive B-cell population detected (99% of overall events). History: The patient is a 34-year-old woman with outside history of follicular lymphoma. Materials Received: Received for review are two slides labeled [id number], accompanied by a corresponding pathology report. The material originates from [place], [place]. Selected slide(s) may be digitally scanned for our files, and all materials are returned to the referring institution, along with a copy of our final report. Any testing required for diagnostic purposes was performed in the Department of Pathology and Immunology at [facility], [address] [place] [address] [place] [address] CLIA # [id number] The performance characteristics of the testing cited in this report (if any) were determined by the [facility] Department of Pathology and Immunology [facility], as part of an ongoing it quality assurance analyst program and in compliance with federally mandated [...] and the performance characteristics determined by the [facility], [facility] Department of Pathology and Immunology. It has not been cleared or approved by the U.S. Food and Drug Administration. Any test designated as LDT was developed and its performance characteristics determined by [facility]. It has not been cleared or approved by the FDA. This test is used for clinical purposes and should not be regarded as investigational or for research. Report images and/or scanned reports, if included, only viewable in PDF version of report. Ramy Aguilera MD LAB PATHOLOGY ORDERABLES Fin al Result Performing Organization Address City/[facility]/ZIP Co de Phone Number [facility] [address] [address] * CT Body Outside Reference (09/15/2024 9:49 AM CDT) Impressions [facility] - 09/15/2024 9:49 AM CDT These images are for Reference purposes only and have not been reviewed by [facility] Radiology. There will be no report generated by a [facility] Radiologist. Narrative [facility] - 09/15/2024 9:49 AM CDT EXAMINATION: Images For Reference Purposes Only Ramy Aguilera MD IMG CT PROCEDURES Final Resu lt Performing Organization Address [facility]/ZIP Co de Phone Number [facility] * CT Body Outside Reference (09/15/2024 9:48 AM CDT) Impressions [facility] - 09/15/2024 9:48 AM CDT These images are for Reference purposes only and have not been reviewed by [facility]. There will be no report generated by a [facility] Radiologist. Narrative [facility] - 09/15/2024 9:48 AM CDT EXAMINATION: Images For Reference Purposes Only us Ramy Aguilera MD IMG CT PROCEDURES Final Resu lt Performing Organization Address [facility] de Phone Number [facility] * CT Body Outside Reference (09/15/2024 9:47 AM CDT) Impressions [facility] - 09/15/2024 9:47 AM CDT These images are for Reference purposes only and have not been reviewed by [facility]. There will be no report generated by a [facility] Radiologist. Narrative [facility] - 09/15/2024 9:47 AM CDT EXAMINATION: Images For Reference Purposes Only us Ramy Aguilera MD IMG CT PROCEDURES Final Resu lt Performing Organization Address [facility] Phone Number [facility] * CT Body Outside Reference (09/15/2024 9:47 AM CDT) Impressions [facility] - 09/15/2024 9:47 AM CDT These images are for Reference purposes only and have not been reviewed by [facility] Radiology. There will be no report generated by a [facility] Radiologist. Narrative [facility] - 09/15/2024 9:47 AM CDT EXAMINATION: Images For Reference Purposes Only us Ramy Aguilera MD IMG CT PROCEDURES Final Resu lt Performing Organization Address [facility] de Phone Number [facility] * PET Outside Reference (09/15/2024 9:46 AM CDT) Impressions [facility] - 09/15/2024 9:46 AM CDT These images are for Reference purposes only and have not been reviewed by [facility] Radiology. There will be no report generated by a [facility] Radiologist. Narrative [facility] - 09/15/2024 9:46 AM CDT EXAMINATION: Images For Reference Purposes Only us Ramy Aguilera MD IMG PET PROCEDURES Final Res ult Performing Organization Address [facility] de Phone Number [facility] * CT Body Outside Reference (09/15/2024 9:45 AM CDT) Impressions [facility] - 09/15/2024 9:45 AM CDT These images are for Reference purposes only and have not been reviewed by [facility] Radiology. There will be no report generated by a [facility] Radiologist. Narrative [facility] - 09/15/2024 9:45 AM CDT EXAMINATION: Images For Reference Purposes Only us Ramy Aguilera MD IMG CT PROCEDURES Final Resu lt Performing Organization Address [facility] Phone Number [facility] * PET Outside Reference (09/15/2024 9:45 AM CDT) Impressions [facility] - 09/15/2024 9:45 AM CDT These images are for Reference purposes only and have not been reviewed by [facility] Radiology. There will be no report generated by a [facility] Radiologist. Narrative [facility] - 09/15/2024 9:45 AM CDT EXAMINATION: Images For Reference Purposes Only us Ramy Aguilera MD IMG PET PROCEDURES Final Res ult Performing Organization Address [facility] de Phone Number [facility] * CT Body Outside Reference (09/15/2024 9:44 AM CDT) Impressions [facility] - 09/15/2024 9:44 AM CDT These images are for Reference purposes only and have not been reviewed by [facility] Radiology. There will be no report generated by a [facility] Radiologist. Narrative [facility] - 09/15/2024 9:44 AM CDT EXAMINATION: Images For Reference Purposes Only us Ramy Aguilera MD IMG CT PROCEDURES Final Resu lt [facility] * Urinalysis reflex to microscopic and culture Urine (09/13/2024 7:18 PM CDT) Color, ur Yellow Yellow Comment:Testing performed by : [address] [address] Clarity, ur Clear Clear JOSELYN Comment:Testing performed by : [address] [address] Specific gravity, ur 1.009 1.003 - 1.030 JOSELYN Comment:Testing performed by : [address] [address] pH, urine 6.5 JOSELYN Comment: Interpretive Data U rine pH is affected by diet, medications, systemic acid-base disturbances, and renal tubular function. pH may affect urinary stone formation. For example, urine pH below 6.0 may help reduce the tendency for calcium phosphate stones and pH greater than 6.0 may reduce the tendency for uric acid stone formation. Source: [place] Current Interpretive Data was last revised on 2017 Testing performed by: [address] [address] Protein, ur ql Negative Negative JOSELYN Comment:Testing performed by : [address] [address] Glucose, ur ql Negative Negative JOSELYN Comment:Testing performed by : [address] [address] Ketones, ur Negative Negative JOSELYN Comment:Testing performed by : [address] [address] Bilirubin, ur Negative Negative JOSELYN Comment:Testing performed by : [address] [address] Blood, ur Negative Negative JOSELYN Comment:Testing performed by : [address] [address] Urobilinogen, ur <2.0 <2.0 mg/dL JOSELYN Comment:Testing performed by : [facility], [address] [place] [address]., [address] Nitrite, ur Negative Negative JOSELYN Comment:Testing performed by : [address] [address] Leukocyte esterase, ur Negative Negative JOSELYN Comment:Testing performed by : [address] [address] UA reflex comment Reflex conditions for microscopic UA and culture not met. JOSELYN Comment:Testing performed by : [address] [address] Urine 09/13/2024 7:18 PM CDT 09/13/2024 7:22 PM CDT us Mario Murray DO LAB MICROBIOLOGY - GENERAL ORD ERABLES Final Result Performing Organization Address [facility] Co de Phone Number JOSELYN [address] [place] [address] * POCT glucose (09/13/2024 7:10 PM CDT) [facility] Glucose, POC 104 70 - 199 mg/dL Comment:Testing performed by : [address] [address] Glucose comment 1 RN/MD Notified JOSELYN Comment:Testing performed by : [address] [address] Blood 09/13/2024 7:10 PM CDT 09/13/2024 7:10 PM CDT us Notinfile Unknown LAB POCT ORDERABLES - DEVICE F inal Result Performing Organization Address [facility] Co de Phone Number JOSELYN [address] [place] [address] * ECG 12 lead (09/13/2024 3:43 PM CDT) [facility] Ventricular Rate EKG/Min 103 BPM [facility] Atrial Rate 103 BPM [facility] MN-Interval (MSEC) 128 ms [facility] QRS-Interval (MSEC) 88 ms [facility] QT-Interval (MSEC) 358 ms [facility] QTc 468 ms [facility] P [place] 54 degrees [facility] R [place] 55 degrees [facility] T [place] 38 degrees [facility] Diagnosis Sinus tachycardia Possible Left atrial enlargement RSR' or QR pattern in V1 suggests right ventricular conduction delay Nonspecific T wave abnormality Abnormal ECG No previous ECGs available Confirmed by YANDY LEON M.D. ([id number]) on 09/13/2024 8:06:17 PM [facility] 09/13/2024 3:43 PM CDT 09/13/2024 8:06 PM CDT Mario Murray DO ECG ORDERABLES Final Result [facility] * eGFR (09/13/2024 3:43 PM CDT) eGFR [...] was last reviewed 2021. Testing performed by: [facility], [address] [place] [address]., [address] Blood 09/13/2024 3:43 PM CDT 09/13/2024 3:48 PM CDT us Mario Murray DO LAB BLOOD ORDERABLES Final Res ult JOSELYN [address] [facility] [place] [address] * Differential, auto (09/13/2024 3:43 PM CDT) Neutrophil abs 2.62 1.50 - 6.50 K/cumm Comment:Testing performed by : [address] [address] Imm gran abs 0.02 0.00 - 0.10 K/cumm JOSELYN Comment:Testing performed by : [address] [address] Lymphocyte abs 2.86 0.80 - 3.30 K/cumm JOSELYN Comment:Testing performed by : [address] [address] Monocyte abs 0.58 0.20 - 0.80 K/cumm JOSELYN Comment:Testing performed by : [address] [address] Eosinophil abs 0.09 0.00 - 0.50 K/cumm JOSELYN Comment:Testing performed by : [address] [address] Basophil abs 0.05 0.00 - 0.10 K/cumm JOSELYN Comment:Testing performed by : [address] [address] Neutrophil pct 42.2 % JOSELYN Comment: Interpretive Data Percent cell count reference ranges are not reported, since discordance with absolute values may lead to misinterpretation of CBC data. Current Interpretive Data was last revised on 2017. Testing performed by: [address] [address] Imm gran pct 0.3 % JOSELYN Comment: Interpretive Data Percent cell count reference ranges are not reported, since discordance with absolute values may lead to misinterpretation of CBC data. Current Interpretive Data was last revised on 2017. Testing performed by: [address] [address] Lymphocyte pct 46.0 % [facility] Comment: Interpretive Data Percent cell count reference ranges are not reported, since discordance with absolute values may lead to misinterpretation of CBC data. Current Interpretive Data was last revised on 2017. Testing performed by: [address] [address] Monocyte pct 9.3 % [facility] Comment: Interpretive Data Percent cell count reference ranges are not reported, since discordance with absolute values may lead to misinterpretation of CBC data. Current Interpretive Data was last revised on 2017. Testing performed by: [address] [address] Eosinophil pct 1.4 % [facility] Comment: Interpretive Data Percent cell count reference ranges are not reported, since discordance with absolute values may lead to misinterpretation of CBC data. Current Interpretive Data was last revised on 2017. Testing performed by: [address] [address] Basophil pct 0.8 % [facility] Comment: Interpretive Data Percent cell count reference ranges are not reported, since discordance with absolute values may lead to misinterpretation of CBC data. Current Interpretive Data was last revised on 2017. Testing performed by: [address] [address] Blood 09/13/2024 3:43 PM CDT 09/13/2024 3:48 PM CDT us Mario Murray DO LAB BLOOD ORDERABLES Final Res ult JOSELYN [address] [facility] [place] [address] * (ABNORMAL) CBC with auto differential (09/13/2024 3:43 PM CDT) WBC 6.22 3.80 - 9.90 K/cumm Comment:Testing performed by : [address] [address] Hgb 12.6 11.9 - 15.5 g/dL CERNER Comment:Testing performed by : [address], [address] Hct 35.9 35.6 - 45.5 % JOSELYN Comment:Testing performed by : [address] [address] Plt 168 150 - 400 K/cumm JOSELYN Comment:Testing performed by : [address] [address] MPV 9.3 9.1 - 12.3 fL JOSELYN Comment:Testing performed by : [address], [address] RBC 4.00 3.90 - 5.20 M/cumm JOSELYN Comment:Testing performed by : [address], [address] MCV 89.8 81.3 - 96.4 fL JOSELYN Comment:Testing performed by : [address] [address] MCH 31.5 27.1 - 33.3 pg JOSELYN Comment:Testing performed by : [address] [address] MCHC 35.1 32.3 - 35.7 g/dL JOSELYN Comment:Testing performed by : [address], [address] RDW CV 15.3(H) 11.1 - 14.9 % JOSELYN Comment:Testing performed by : [address], [address] RDW SD 49.8(H) 35.7 - 48.1 fL JOSELYN Comment:Testing performed by : [address] [address] NRBC abs 0.00 0.00 - 0.01 K/cumm JOSELYN Comment:Testing performed by : [address], [address] Blood Venous blood specimen / Unknown 09/13/2024 3:43 PM CDT 09/13/2024 3:48 PM CDT Mario DooleyRavn LAB BLOOD ORDERABLES Final Res ult Performing Organization Address [facility]/ZIP Co de Phone Number JOSELYN [address] [place] [address] * hCG, blood, quantitative (09/13/2024 3:43 PM CDT) [facility] hCG, quant <5.0 0.0 - 5.0 IUnits/L Comment: Interpretive Data Male: < 5 IU/L Non- premenopausal Female: <5 IU/L The [employer] hCG Beta Quant assay procedure was used. Results from different manufacturers or methods may not be comparable. Serial testing should be performed using the same method. Interpretive Data was last revised on 2023 Testing performed by: [address] [address] Blood 09/13/2024 3:43 PM CDT 09/13/2024 3:48 PM CDT Mario [employer] LAB BLOOD ORDERABLES Edited Re sult - Final Performing Organization Address [facility] Co de Phone Number DARRIN[address] [address] * Uric acid (09/13/2024 3:43 PM CDT) [facility] Uric acid 5.0 2.5 - 7.0 mg/dL Comment:Testing performed by : [address] [address] Blood 09/13/2024 3:43 PM CDT 09/13/2024 3:48 PM CDT Mario [employer] LAB BLOOD ORDERABLES Final Res ult Performing Organization Address City[facility] Co de Phone Number JOSELYN [address] [id number] * Phosphorus (09/13/2024 3:43 PM CDT) [facility] Phosphorus, pl 3.0 2.3 - 4.5 mg/dL Comment:Testing performed by : [address] [address] Blood 09/13/2024 3:43 PM CDT 09/13/2024 3:48 PM CDT Mario Murray DO LAB BLOOD ORDERABLES Final Res ult Performing Organization Address [facility]/ZIP Co de Phone Number [address] [place] [address] * Magnesium (09/13/2024 3:43 PM CDT) [facility] Magnesium 1.8 1.4 - 2.5 mg/dL Comment:Testing performed by : [address] [address] Blood 09/13/2024 3:43 PM CDT 09/13/2024 3:48 PM CDT Spike Perales III, MD LAB BLOOD ORDERABLES F inal Result Performing Organization Address [facility] Co de Phone Number [address] [address] * Lipase (09/13/2024 3:43 PM CDT) [facility] Lipase 11 10 - 99 Units/L Comment:Testing performed by : [address] [address] Blood Venous blood specimen / Unknown 09/13/2024 3:43 PM CDT 09/13/2024 3:48 PM CDT Mario Murray DO LAB BLOOD ORDERABLES Final Res ult Performing Organization Address [facility] Co de Phone Number [address] [address] * Lactate dehydrogenase (LD) (09/13/2024 3:43 PM CDT) [facility] Lactate dehydrogenase (LDH) 216 100 - 250 Units/L Comment:Testing performed by : [address] [address] Blood 09/13/2024 3:43 PM CDT 09/13/2024 3:48 PM CDT us Mario Trevor DO LAB BLOOD ORDERABLES Final Res ult [facility] [address] [facility] [place] [address] * (ABNORMAL) Comprehensive metabolic panel (09/13/2024 3:43 PM CDT) Pathologist [facility] Sodium 143 135 - 145 mmol/L Comment:Testing performed by : [address] [address] Potassium, pl 2.7(L) 3.3 - 4.9 mmol/L JOSELYN Comment:Testing performed by : [address] [address] Chloride 99 97 - 110 mmol/L JOSELYN Comment:Testing performed by : [address] [address] CO2 28 22 - 32 mmol/L JOSELYN Comment:Testing performed by : [address] [address] Anion gap 16(H) 2 - 15 mmol/L JOSELYN Comment:Testing performed by : [address] [address] BUN 5(L) 6 - 25 mg/dL JOSELYN Comment:Testing performed by : [address] [address] Creatinine 0.60 0.60 - 1.10 mg/dL JOSELYN Comment:Testing performed by : [address] [address] Glucose 69(L) 70 - 199 mg/dL JOSELYN [...] was last revised 2022. Testing performed by: [address] [address] Calcium 9.2 8.5 - 10.3 mg/dL JOSELYN Comment:Testing performed by : [address] [address] Bilirubin, total 0.5 0.1 - 1.2 mg/dL JOSELYN Comment:Testing performed by : [address] [address] Protein, pl 6.4(L) 6.5 - 8.5 g/dL JOSELYN Comment:Testing performed by : [address] [address] Albumin 4.2 3.5 - 5.0 g/dL JOSELYN Comment:Testing performed by : [address] [address] Alk phos 155(H) 40 - 130 Units/L JOSELYN Comment:Testing performed by : [address] [address] ALT 6(L) 7 - 45 Units/L JOSELYN Comment:Testing performed by : [address] [address] AST 15 10 - 45 Units/L JOSELYN Comment:Testing performed by : [address] [address] Blood 09/13/2024 3:43 PM CDT 09/13/2024 3:48 PM CDT us Mario Murray DO LAB BLOOD ORDERABLES Final Res ult JOSELYN [facility] [place] [address] from Last 3 Months Insurance [facility] Advance Directives For more information, please contact: [phone] * Full Code (Latest Code Status on File) Date Activated Date Inactivated Comments 09/22/2024 9:00 PM 09/24/2024 10:30 PM * Full Code Date Activated Date Inactivated Comments 09/17/2024 2:33 PM 09/17/2024 11:31 PM 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
--- OUTSIDE RECORDS SUMMARY | 2024-10-10 20:53 | XMS_ITS ---
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 Assessment & Plan (09/23/2024 [...] Plan (09/17/2024 7:02 PM CDT): - NRT Current Treatment and Therapy Plans CVP + O (Cyclophosphamide[ON HOLD] / VinCRIStine / PredniSONE / oBINutuzumab) 21 Day Cycles - NHL* Plan Start Date:10/04/2024 Plan Provider:Ramy Aguilera MD Linked Problems Follicular lymphoma, unspeci fied follicular lymphoma type, unspecified body region (HCC) Treatment Medications Current Day (Day 1 , Cycle 1 - Planned for 10/07/2024) Next Day (Day 8, Cycle 1 - Planned for 10/14/2024) cycloPHOSphamide (CYTOXAN)oBINUtuzumab (GAVYZA)oBINutuzumab (GAZYVA) IVPB 1,000 mg in 290 mLvinCRIStinevinCRIStine (ONCOVIN) IVPB in 50 mL oBINutuzumab (GAZYVA) 1,000 mg in sodium chloride 0.9% 290 mL IVPBvinCRIStine (ONCOVIN) 2 mg in sodium chloride 0.9% 50 mL IVPB oBINutuzumab (GAZYVA) 1,000 mg in sodium chloride 0.9% 290 mL IVPB Past Treatment and Therapy Plans No past plan information found.
--- OUTSIDE RECORDS SUMMARY | 2024-10-10 20:53 | XMS_ITS | Data Portability ---
Author Organization [facility] Address [address] [place] [address] Assessment Encounter Date Assessment Date Assessment LastModified by Organization Details LastModified Time 07/29/2024 07/29/2024 Annual gynecological exam performed. Patient will come back in a year unless there are new symptoms. [email or web address] Not available 07/29/2024 11:38:03 Plan of Treatment Reminders Order Date Submit Date Provider Last Modified By Organization Details Last Modified Time Details Appointments None recorded. Lab hbcab (hepatitis B core Ab) igm, serum 2024 025 [facility] (Lab), [address] [place], [address], 5 11:25:14 HBsAg (hepatitis B surface Ag), serum 2024 025 [facility] (Lab), [address] [place], [address], 5 11:25:14 hepatitis C virus Ab, serum 2024 025 [facility] (Lab), [address] [place], [address], 5 11:25:13 HIV 1+2 AB + HIV 1 p24 Ag, qualitative immunoassay , serum 2024 025 [facility] (Lab), [address] [place], [address], 5 11:25:13 RPR (rapid plasma reagin), serum 2024 025 [facility] (Lab), [address] [facility], [place], [address], 5 11:25:14 pap, IG + HR HPV - HPV regardless but if HPV is positive need subtyping 16,18/45 add STI to pap GC/CT/Trich 2024 025 [facility] (Lab), [address] [facility] [address], [place], [address], 5 13:59:16 culture, urine 2024 025 [facility] (Lab), [address] [facility] [address], [place], [address], 5 13:59:18 Referral None recorded. Procedures None recorded. Surgeries None recorded. Imaging MAMMO, diagnostic, digital, bilateral 2024 [facility], [address], [place], [address], 04:02:31 US, breast, bilateral, complete 2024 [facility], [address], [place], [address], 04:02:31 Medication Orders None recorded. Patient TargetsNo [...] of expos ure to HCV. Not Available [facility] (Lab) [address], [place], [address], 07/30/2024 11:25:13 07/30/19 25 07/29/2024 HIV 1/2 ANTIG EN/AN TIBOD Y, REFLE X CONFI RMATI ON HIV antigen/anti body Nonrea ctive nonrea ctive HIV-1 antig en and HIV-1 /HIV- 2 antib odies were not detec gabriella. No labor atory evide nce of HIV infec tion. Not Available [facility] (Lab) [address] [facility] [address], [place], [address], 07/30/2024 11:25:13 07/30/19 25 07/29/2024 HEPAT ITIS B SURFA CE ANTIG EN hepatitis B surface antigen Non-re active non-re active This assay was perfo rmed using [employer] ratio n reage nts and test kits. Value s obtai maxim with other assay metho ds or kits canno t be used inter caro eably . Not Available [facility] (Lab) [address] [facility] [facility], [place], [address], 07/30/2024 11:25:14 07/30/19 25 07/29/2024 RPR SCREE N, REFLE X TITER /CONF IRMAT ION RPR qualitative Nonrea ctive nonrea ctive Not Available [facility] (Lab) [address] [facility] [facility], [place], [address], 07/30/2024 11:25:14 07/30/19 25 07/29/2024 HEPAT ITIS B CORE, IGM hepatitis B core IgM antibody Non-re active non-re active IgM anti- HBc not detec gabriella. Does not exclu de the possi bilit y of expos ure to or infec tion with HBV. Test Perfo rmed by: Adrian daniels rn, [facility] [address] [place] [address] Not Available [facility] (Lab) [address] [facility], [place], [address], 07/30/2024 11:25:14 07/30/19 25 07/29/2024 IMAGE GUIDE D PAP AND HPV REGAR DLESS image guided Pap, HPV regardless of Pap result SEE RESULT S BELOW CASE REPOR T: Cytol ogy Gynec ologi reyna Repor t Case: [id number] Autho paulina gresham Provi sarah beth: Alexandria Ford, ASHTYN Singer cted: 07/29 1446 Order ing Locat ion: [place] Patho logkeith Recei jimy: 07/30 1141 First Scree n: [...] epith elial Naty muñiz or Rinku jain ([facility]) . Elect apple velazquez d by [...] as clini nati zamarripa nted. Not Available [facility] (Lab) [address], [place], [address], 08/03/2024 13:59:16 07/30/19 25 07/29/2024 TRICH OMONA S VAGIN CHALO (RRNA ) trichomonas vaginalis ribosomal RNA (rrna) Negati ve negati ve Not Available [facility] (Lab) [address] [place], [address], 08/03/2024 13:59:17 07/30/19 25 07/29/2024 CT/GC (FAREED) , THINP REP VIAL chlamydia trachomatis, PCR Negati ve negati ve Not Available [facility] (Lab) [address], [place], [address], 08/03/2024 13:59:17 07/30/19 25 07/29/2024 CT/GC (FAREED) , THINP REP VIAL neisseria gonorrhoeae, PCR Negati ve negati ve Not Available [facility] (Lab) [address], [place], [address], 08/03/2024 13:59:17 07/30/19 25 07/29/2024 CULTU RE: URINE result report SEE RESULT S BELOW abnormal Test: Cultu re: Urine Speci men Sourc e: Urine - Clean Catch Speci men Type: Urine Speci men Date: 2024 1446 Resul t Date: 2024 0713 Resul t Statu s: Final resul t Ramakrishnaor mal: Yes Jacoby garcia Lab: [facility] [address] [facility] [address] Tel: CULTU RE ----- ----- ----- --- [...] <=0.5 ug/mL Susce ptibl e Not Available [facility] (Lab) [address], [place], [address], 08/03/2024 13:59:18 Result Notes None recorded. Procedures Surgical History Date Name Laterality Status Provider Name and Address Organization Details Recorded Time 11/06/19 22 chemotherapy completed [facility] 07/29/2024 12:08:18 05/08/19 15 medical termination of completed [facility] 07/29/2024 12:07:34 05/08/19 14 incision and drainage of breast abscess completed [facility] 07/29/2024 12:07:14 Imaging Results None recorded. Procedure Notes None recorded. Medical Equipment None Reported. Allergies Allergen ID Allergen Name Allergen Category Reaction Reaction Severity Criticality Documentation Date Start Date Code Code System Note Provider Name and Address Organization Details Recorded Time 12057 pecan nut food Not available Not available Not available 07/29/2024 17374 UNK [facility] 11:57:32 02561 Benadryl medicatio n Not available Not available Not available 07/29/202437663 7 RxNorm [facility] 11:57:43 77991 azithromy louis medicatio n Not available Not available Not available 07/29/2024 87352 RxNorm [facility] 11:58:11 Medications Name Sig Start Date [...] Body mass index (BMI) Body weight Systolic And Diastolic Provider Name and Address Organization Details Last Updated DateTime 07/29/2024 157.48 cm 21.8 kg/m2 90632.49 g 119/81 mm[Hg] Lety Khan [facility] 07/29/2024 11:56:58 Social History Question Answer Notes LastModified by Organizat ion Details LastModified Time Do You Have An Advance Directive? No [email or web address] Information n ot available 07/29/2024 Are You Blind Or Do You Have Difficulty Seeing? No [email or web address] Information n ot available 07/29/2024 What Is Your Level Of Caffeine Consumption? Occasional Information not available 07/29/2024 How Much Tobacco Do You Chew? None [email or web address] Information not available 07/29/2024 In The 14 Days Before Symptom Onset, Have You Had Close Contact With A Laboratory-confirm ed COVID-19 While That Case Was Ill? No [email or web address] Information n ot available 07/29/2024 In The 14 Days Before Symptom Onset, Have You Had Close Contact With A Person Who Is Under Investigation For COVID-19 While That Person Was Ill? No [email or web address] Information not available 07/29/2024 Have You Been To An Area Known To Be High Risk For COVID-19? No [email or web address] Information not available 07/29/2024 Are You Deaf Or Do You Have Serious Difficulty Hearing? No [email or web address] Information not available 07/29/2024 What Type Of Diet Are You Following? REGULAR Information n ot available 07/29/2024 What Is The Highest Grade Or Level Of School You Have Completed Or The Highest Degree You Have Received? RO41247-4 [email or web address] Information not available 07/29/2024 Are There Any Guns Present In Your Home? No [email or web address] Information not available 07/29/2024 Do You Use Protection During Sex? No [email or web address] Information not available 07/29/2024 Do You Use Your Seat Belt Or Car Seat Routinely? No [email or web address] Information not available 07/29/2024 Do You Have Smoke And Carbon Monoxide Detectors In Your Home? Yes [email or web address] Information not available 07/29/2024 At What Age Did You Start Smoking Tobacco? 21 Information not available 07/29/2024 How Much Tobacco Do You Smoke? 1 PPD Information not available 07/29/2024 Do You Use Sunscreen Routinely? No [email or web address] Information not available 07/29/2024 Have You Used [...] anxious, or unable to sleep at night)? [id number] Information not available 07/29/2024 Family History Nothing [...] SNOMED-CT Code Diagnosis ICD10 Code Diagnosis Note [id number] ANIA Reeves [place] [address] [address] 07/29/2024 11:33:28 07/30/2024 10:26:56 Gynecologic examination 23972679 Z01.419 WWEBC - declinedPa p - done [...] advised. Questions answered. Venereal d isease screening 849301387 Z11.3 Sexually t ransmitted infectious disease 6324575 A64 Breast lump 11426869 N63 .0 order given for bilateral diagnostic mammogram and u/s Health Concerns Section Related Observation LastModified by Organization Detai ls LastModified Time None Recorded Concern Status LastModified by Organization Details LastModified Time None Recorded Advance Directives Directive N: Payers Insurance Date Sequence Insurance Name Policy Number Policy Woods Covered Member ID Woods Member ID Guarantor Name 08/02/2024 1 [facility] (MEDICAID HMO) [id number] Soha Marrero [id number] Soha Marrero Notes Date Note Type Note [...] since 2023 ANIA Reeves [address], [place], [address], [facility] 07/30/2024 09:32:49 OBGyn Episode Ob Episode Information Episode Created Date Number of Fetuses Patient Bloodtype Patient rh Status Prepregnancy Weight lbs Domestic Partner Domestic Partner Phone Father Name Architectural Wood Model Maker Status 07/30/19 1 CLOSED Fetus Data First Name Last Name Admitted to NICU Weight (g) Sex Living Outcome Pediatric Complications Fetus ID Race Codes Race Delivery Type , Induced 11931 Fly Calculation Initial Fly Date Initial Exam Date Initial Exam Provider Initial Ultrasound Date Last Menstrual Period Date Ultra Sound Weeks Gestation 0 Eighteen To Twenty Week Fyl Update Ultra Sound Date Fundal Height At [...] Domestic Partner Domestic Partner Phone Father Name Architectural Wood Model Maker Status 07/30/19 1 CLOSED Fetus Data First Name Last Name Admitted to NICU Weight (g) Sex Living Outcome Pediatric Complications Fetus ID Race Codes Race Delivery Type , Spontane ous 54708 Fly Calculation Initial Fly Date Initial Exam [...] Domestic Partner Domestic Partner Phone Father Name Architectural Wood Model Maker Status 07/30/19 1 CLOSED Fetus Data First Name Last Name Admitted to NICU Weight (g) Sex Living Outcome Pediatric Complications Fetus ID Race Codes Race Delivery Type F Prematur e 87317 Vaginal Delivery Fly Calculation Initial Fly Date [...]
--- OUTSIDE RECORDS SUMMARY | 2024-10-10 20:53 | XMS_ITS | Clinical Summary ---
Author Organization [facility] Address [address] [place] [address] Phone Care Team Providers Care Aviation Maintenance Technician Name Role Phone Gabriel Salmeron MD [...] current use Anxiety 05/07/2023 Under care of snf service 05/07/2023 Overview (05/07/2023): Two previous stays at snf Child living with her parents Resolved Problems Problem Noted Date Diagnosed Date Resolved Date LRTI (lower respiratory tract infection) 09/09/2023 11/26/2023 Lymphoma 05/07/2023 10/29/2023 Overview (05/21/2023): Resistant to care No show ONC Refusing hospice 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/21/2023): Current cannabis; 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 Hx of snf time Encounters Date Type Department Care Team Description 08/06/2024 Telephone [facility] [address] [place] [address] Gabriel Salmeron MD from Last 3 Months Immunizations Immunization Administration Dates Next Due Influenza Vaccine, Quadrivalent, PF 04/02/2022 TDAP Vaccine 02/06/2022,11/05/2020 Family History Medical History Relation Name Comments No Known Problems Father Cancer Mother Osteoarthritis Mother Relation Name Status Comments Brother Alive Father Alive Mother Alive Social History Tobacco Use Types Packs/Day Years Used Date Smoking Tobacco: Every Day Cigarettes 1 14.5 Started: 04/07/2010 Passive Smoke Exposure: Current Smokeless Tobacco: Never Tobacco Cessation:Ready to Q uit: Yes; Counseling Given: Yes Alcohol Use Standard Drinks/Week Comments Yes 2 (1 standard drink = 0.6 oz pur e alcohol) occasional C Utilities Answer Date Recorded In the past 12 months has [employer], gas, oil, or water Sensics threatened to shut off services in your home? Yes 05/07/2023 Social Connection and Isolation Panel Answer Date Recorded In a typical week, how many times do you talk on the phone with family, friends, or neighbors? Once a week 05/07/2023 How often do you get together with friends or re latives? Once a week 05/07/2023 How often do you attend advent or hindu serv ices? Never 05/07/2023 Do you belong to any clubs o r organizations such as advent groups, unions, fraternal or athletic groups, or [...] Total Score - Questions 1-9 9 06/06 [facility] - Occupational [...] place to sleep or slept in a mcc (including now)? No 05/07/2023 Sexually Active Control Partners Comments Yes Male Comments Unknown Sex and Gender Information Value Date Recorded Sex Assigned at Female 05/21/2023 11:44 AM FIELD SERVICES ANALYST Legal Sex Female 5:17 PM CDT Gender Identity Female 05/21/2023 11:44 AM FIELD SERVICES ANALYST Sexual Orientation Not on file Last Filed [...] No change(07/29 4:12 PM CDT) Yes Janette TomINEZW Note: Goal/Objective: Improve insight and understanding of behaviors and feelings. Anticipated Time Frame for Goal Completion: 6 months Goal Reviewed with: patient Readiness to change: Ready to change Department associated with goal: [facility] Steps [...] to use when a triggering event occurs Insurance MEDICAID [facility] Care Teams Aviation Maintenance Technician Relationship Specialty Start Date End Date Provider, None [place] PCP - General 06/17/24 Gabriel Salmeron MD [address] [place] [address] Consulting Physician Medical Oncology 05/23/23 Brooks Sosa MD [address] [facility] [address] Consulting Physician Neurology 01/22/24 Kervin Jiang MD [address] [facility] [address] [address] Consulting Physician General Surgery 06/11/24
--- OUTSIDE RECORDS SUMMARY | 2024-10-10 20:54 | XMS_ITS | Clinical Summary ---
Author Organization [facility] Address [address] [facility] [place] [address] Care Team Providers Care Hawk Missile Air Defense Artillery Name Role Phone Unavailable Primary Care Provider [...] Pain, Mild. Active naloxone (NARCAN) 4 mg/spray Sloan, Non-Aerosol EMERGENCY USE ONLY: Administer 1 spray [...] Data STL ABSTRACTION Provider, Abstract 08/17/2024 Telephone [facility] Oncology and Hematology - Painter [address] [place] [address] Dr [address] [place] [address] Marv Hernandes MD Re-establishing care from [...] Comments Blood Pressure 109/66 04/17/2023 8:40 AM PERSONAL BANKER Pulse 111 04/17/2023 8:40 AM PERSONAL BANKER Temperature 36.6 C (97.9 F) 04/17/2023 8:40 AM PERSONAL BANKER Respiratory Rate 10 04/17/2023 8:40 AM PERSONAL BANKER Oxygen Saturation 92% 03/27/2023 11:06 AM PERSONAL BANKER Inhaled Oxygen Concentration - - Weight 51.3 kg (113 lb) 04/17/2023 8:40 AM PERSONAL BANKER Height 162.6 cm (5' 4) 03/24/2023 6:27 PM PERSONAL BANKER Body Mass Index 19.4 03/24/2023 6:27 PM PERSONAL BANKER Plan of Treatment Health Maintenance Due Date Last Done Comments HEPATITIS B VACCINES (1 of 3 - 19+ 3-dose series) 02/21/2011 HPV/Cotest (21-29) 02/21/2013 CERVICAL CANCER SCREENING 02/21/2022 HPV/Cotest (30-65) 02/21/2022 PAP SMEAR 02/21/2022 INFLUENZA VACCINE (#1) 2024 04/02/2022 DTAP/TDAP/TD VACCINES (3 - Td or Tdap) 02/07/2032 02/06/2022, 11/05/2020 HPV VACCINES Aged Out No longer eligi ble based on patient's age to complete this topic Insurance [place] [facility] [employer] Advance Directives For more information, please contact: [phone] * Full Code (Latest Code Status on File) Date Activated Date Inactivated Comments 03/25/2023 1:09 AM 03/26/2023 3:29 PM
--- NOTE | 2024-10-10 22:06 | PC.NURSE ---
lis at bedside
[2024-10-10 22:10] LABS: Hematocrit 33.3 % (37.0-47.0); Hemoglobin 10.9 g/dL (12.0-15.0); Immature Granulocyte Percent A 0.2 % (0-0.5); Lymphocytes Absolute Auto 8.73 K/mm3 (0.9-3.2); Mean Corpuscular HGB Conc 32.7 g/dl (32-36); Mean Corpuscular Hemoglobin 30.7 pg (26-34); Mean Corpuscular Volume 93.8 fl (80-100); Nucleated Red Blood Cells Absolute Auto 0.000 K/mm3 (0.0-0.012); Nucleated Red Blood Cells Perc 0.0 % (0.0-0.2); Platelet Count Result 194 k/mm3 (150-375); Red Blood Count 3.55 M/mm3 (4.2-5.4); White Blood Count 13.1 K/mm3 (4.5-10.0)
[2024-10-10] MEDS: ONDANSETRON INJ 4 MG/2 ML VIAL IV PUSH (22:20)
[2024-10-10] MEDS: LACTATED RINGERS 1,000 ML 999 ML IV CONT (22:20)
--- OUTSIDE RECORDS SUMMARY | 2024-10-10 22:23 | XMS_ITS ---
Author Organization [facility] Address [address] [place] [address] Phone Care Team Providers Care Family Helper Name Role Phone Gabriel Salmeron MD Unavailable Brooks Sosa MD Unavailable [phone] Provider, None Primary Care Provider UnavailKervin Rubi [...]
--- OUTSIDE RECORDS SUMMARY | 2024-10-10 22:23 | XMS_ITS ---
Author Organization [facility] [address] Address [address] [place] [address] Care Team Providers Care Spa Coordinator Name Role Phone Richard Fish NP Primary Care Provider Ramy Aguilera MD Unavailable [phone] Active Problems Problem Noted Date Diagnosed Date [...] discharge patient with outpatient [facility] follow-up on 09/30/24. Assessment & Plan (09/23/2024 [...]
--- OUTSIDE RECORDS SUMMARY | 2024-10-10 22:23 | XMS_ITS ---
Author Organization [facility] Address [address] [place] [address] Phone Care Team Providers Care Motorcycle Designer Name Role Phone Gabriel Salmeron MD Unavailable [phone] Brooks Sosa MD Unavailable [phone] Provider, None Primary Care Provider UnavailKervin Rubi MD Unavailable [facility] Status:Enrolled (Active) Start date:05/05/2024 Enrollment date:05/05/2024 Related social drivers of health:Social Connections, Tobacco Use, Depression, Stress, Physical Activity, Utilities Continued Care and Services Coordination
--- OUTSIDE RECORDS SUMMARY | 2024-10-10 22:23 | XMS_ITS | Referral Summary ---
Author Organization [facility] [address] [facility] Address [address] [place] [address] Care Team Providers Care Painter And Decorator Name Role Phone Richard Fish NP Primary Care Provider Ramy Aguilera MD Unavailable [phone] Encounters Date Type Department Care Team Description 10/07/2024 8:45 AM CDT Infusion [facility] at [address] [address] Follicular lymphoma, unspecified follicular lymphoma type, unspecified body region (HCC) (Primary Dx) 10/07/2024 8:15 AM CDT Lab [address] [address] Follicular lymphoma, unspecified follicular lymphoma type, unspecified body region (HCC) 10/01/2024 Orders Only [facility] On[facility] [address] [place] [phone] Ramy Aguilera MD 09/30/2024 Orders Only [facility] at [address] [place] [address] Paulina German RPh 09/30/2024 3:00 PM CDT Lab [facility] at [address] [address] Follicular lymphoma, unspecified follicular lymphoma type, unspecified body region (HCC); Follicular lymphoma grade III, unspecified body region (HCC) 09/30/2024 3:30 PM CDT Office Visit [facility] [address] [place] [address] [address] [place] [phone] Ramy Aguilera MD Follicular lymphoma, unspecified follicular lymphoma type, unspecified body region (HCC) (Primary Dx) 09/28/2024 Telephone [facility] [address] [place] [address] [address] [place] [address] Tanesha Srinivasan RN 09/24/2024 Orders Only [facility] [address] [place] [address] [address] [place] [address] Ramy Aguilera MD 09/21/2024 10:26 PM CDT - 09/24/2024 6:25 PM CDT Hospital Encounter [address] [phone] Zahra Alston MD Patel, Dilan Anil, MD Kim, MD Krishna Sosa, MD Saw Mendoza, Jamarcus Barahona MD Follicular lymphoma, unspecified follicular lymphoma type, unspecified body region (HCC) (Primary Dx) Discharge Disposition: Discharge to home or self care 09/21/2024 Documentation [facility] [address] [place] [phone] Ramy Aguilera MD 09/21/2024 Hospital Encounter H ADMIT [address] [place] [address] Ramy Aguilera MD 09/17/2024 Documentation [facility] [address] [place] [phone] Suzanne Martinez RN 09/17/2024 2:24 PM CDT - 09/17/2024 7:26 PM CDT Hospital Encounter [address] [address] Ramy Aguilera MD Jeon, Alvin, MD Discharge Disposition: Left Against Medical Advice 09/16/2024 10:30 AM CDT Lab [facility] at [facility] [address] [place] [address] Follicular lymphoma grade III, unspecified body region (HCC) 09/16/2024 12:00 PM CDT Office Visit [facility] [address] [facility] [address] [place] [phone] Ramy Aguilera MD Follicular lymphoma grade III, unspecified body region (HCC) (Primary Dx) 09/15/2024 Orders Only [facility] [address] [place] [address] Ramy Aguilera MD Lymphoma of lymph nodes (HCC) 09/15/2024 9:49 AM CDT - 09/15/2024 11:59 PM CDT Hospital Encounter [facility] [address] [place] [address] Discharge Disposition: Discharge to home or self care 09/15/2024 9:48 AM CDT - 09/15/2024 11:59 PM CDT Hospital Encounter [facility] [address] [place] [address] Discharge Disposition: Discharge to home or self care 09/15/2024 9:47 AM CDT - 09/15/2024 11:59 PM CDT Hospital Encounter [facility] [address] [place] [address] Discharge Disposition: Discharge to home or self care 09/15/2024 9:47 AM CDT - 09/15/2024 11:59 PM CDT Hospital Encounter [facility] [address] [place] [address] Discharge Disposition: Discharge to home or self care 09/15/2024 9:46 AM CDT - 09/15/2024 11:59 PM CDT Hospital Encounter [facility] [address] [place] [address] Discharge Disposition: Discharge to home or self care 09/15/2024 9:45 AM CDT - 09/15/2024 11:59 PM CDT Hospital Encounter [facility] ([facility]) [address] [place] [address] Discharge Disposition: Discharge to home or self care 09/15/2024 9:45 AM CDT - 09/15/2024 11:59 PM CDT Hospital Encounter [facility]) [address] [place] [address] Discharge Disposition: Discharge to home or self care 09/15/2024 9:44 AM CDT - 09/15/2024 11:59 PM CDT Hospital Encounter [facility] ([facility]) [address] [place] [address] Discharge Disposition: Discharge to home or self care 09/14/2024 Orders Only [facility] On[facility] [address] [facility] [address] [place] [address] Ramy Aguilera MD Lymphoma of lymph nodes (HCC) (Primary Dx) 09/13/2024 7:06 PM CDT - 09/13/2024 8:33 PM CDT Emergency [facility] Emergency Department [address] [place] [address] Mario Murray DO Lymphoma, unspecified body region, unspecified lymphoma type (HCC) (Primary Dx); Hypokalemia; Vaginal bleeding; Myalgia Discharge Disposition: Discharge to home or self care 09/05/2024 Documentation [facility] [address] [facility] Floor 8 [place] [address] Nora Cheema MD 08/23/[address] [phone] Hannah Wilder, RN Scheduling Appointments 08/12/[address] [phone] Hannah Wilder, RN Scheduling Appointments [...] - Plan to discharge patient with outpatient [facility] follow-up on 09/30/24. Assessment & Plan [...] - Plan to discharge patient with outpatient [facility] follow-up on 09/30/24. Assessment & Plan [...] - Plan to discharge patient with outpatient [facility] follow-up on 09/30/24. Assessment & Plan [...] * eGFR (10/07/2024 8:12 AM CDT) Pathologist [facility] eGFR >90 >=60 mL/min/1. 73 m2 Comment: [...] was last reviewed 2021. Testing performed by: [address] [address] Blood 10/07/2024 8:12 AM CDT 10/07/2024 8:16 AM CDT us Ramy Aguilera MD LAB BLOOD ORDERABLES Final R esult JOSELYN [address] [facility] Department of Laboratories [place], [place] [id number] * (ABNORMAL) Differential, auto (10/07/2024 8:12 AM CDT) Pathologist [facility] Neutrophil abs 5.64 1.50 - 6.50 K/cumm Comment:Testing performed by : [address] [address] Imm gran abs 0.08 0.00 - 0.10 K/cumm JOSELYN VAZQUEZ Comment:Testing performed by : [address] [address] Lymphocyte abs 12.57(H) 0.80 - 3.30 K/cumm JOSELYN VAZQUEZ Comment:Testing performed by : [address] [address] Monocyte abs 0.33 0.20 - 0.80 K/cumm [facility] Comment:Testing performed by : [address] [address] Eosinophil abs 0.02 0.00 - 0.50 K/cumm [facility] Comment:Testing performed by : [address] [address] Basophil abs 0.03 0.00 - 0.10 K/cumm [facility] Comment:Testing performed by : [address] [address] Neutrophil pct 30.2 % [facility] Comment: Interpretive Data Percent cell count reference ranges are not reported, since discordance with absolute values may lead to misinterpretation of CBC data. Current Interpretive Data was last revised on 2017. Testing performed by: [address] [address] Imm gran pct 0.4 % [facility] Comment: Interpretive Data Percent cell count reference ranges are not reported, since discordance with absolute values may lead to misinterpretation of CBC data. Current Interpretive Data was last revised on 2017. Testing performed by: [address] [address] Lymphocyte pct 67.3 % [facility] Comment: Interpretive Data Percent cell count reference ranges are not reported, since discordance with absolute values may lead to misinterpretation of CBC data. Current Interpretive Data was last revised on 2017. Testing performed by: [address] [address] Monocyte pct 1.8 % [facility] Comment: Interpretive Data Percent cell count reference ranges are not reported, since discordance with absolute values may lead to misinterpretation of CBC data. Current Interpretive Data was last revised on 2017. Testing performed by: [address] [address] Eosinophil pct 0.1 % [facility] Comment: Interpretive Data Percent cell count reference ranges are not reported, since discordance with absolute values may lead to misinterpretation of CBC data. Current Interpretive Data was last revised on 2017. Testing performed by: [address] [address] Basophil pct 0.2 % JOSELYN Comment: Interpretive Data Percent cell count reference ranges are not reported, since discordance with absolute values may lead to misinterpretation of CBC data. Current Interpretive Data was last revised on 2017. Testing performed by: [address] [address] Blood 10/07/2024 8:12 AM CDT 10/07/2024 8:16 AM CDT us Ramy Aguilera MD LAB BLOOD ORDERABLES Final R esult JOSELYN [address] [facility] Department [place] [address] * (ABNORMAL) CBC with auto differential (10/07/2024 8:12 AM CDT) WBC 18.67(H) 3.80 - 9.90 K/cumm Comment:Testing performed by : [address] [address] Hgb 10.6(L) 11.9 - 15.5 g/dL JOSELYN Comment:Testing performed by : [address] [address] Hct 32.3(L) 35.6 - 45.5 % JOSELYN Comment:Testing performed by : [address] [address] Plt 256 150 - 400 K/cumm JOSELYN Comment:Testing performed by : [address] [address] MPV 9.1 9.1 - 12.3 fL JOSELYN VAZQUEZ Comment:Testing performed by : [address] [address] RBC 3.44(L) 3.90 - 5.20 M/cumm JOSELYN VAZQUEZ Comment:Testing performed by : [address] [address] MCV 93.9 81.3 - 96.4 fL JOSELYN VAZQUEZ Comment:Testing performed by : [address] [address] MCH 30.8 27.1 - 33.3 pg JOSELYN Comment:Testing performed by : [address] [address] MCHC 32.8 32.3 - 35.7 g/dL JOSELYN VAZQUEZ Comment:Testing performed by : [address] [address] RDW CV 14.6 11.1 - 14.9 % JOSELYN Comment:Testing performed by : [address] [address] RDW SD 50.0(H) 35.7 - 48.1 fL JOSELYN Comment:Testing performed by : [address] [address] NRBC abs 0.00 0.00 - 0.01 K/cumm JOSELYN Comment:Testing performed by : [address] [address] ANC Prelim 5.64 1.50 - 6.50 K/cumm JOSELYN Comment: Interpretive Data The rapid ANC is a preliminary automated count and may vary from the final ANC (Neut Abs) reported in the WBC differential that follows. Current interpretive data was last revised 2024. Testing performed by: [address] [address] Morphologic Screen Results confirmed by manual morphology review. JOSELYN Comment:Testing performed by : [address] [address] Blood 10/07/2024 8:12 AM CDT 10/07/2024 8:16 AM CDT us Ramy Aguilera MD LAB BLOOD ORDERABLES Edited Result - Final DARRINSUSAN [address] [facility] Department [place] [address] * hCG, blood, quantitative (10/07/2024 8:12 AM CDT) Pathologist [facility] [...] last revised on 2023 Testing performed by: [address] [address] Blood 10/07/2024 8:12 AM CDT 10/07/2024 9:06 AM CDT Narrative [facility] - 10/07/2024 10:00 AM CDT Need before treatment start us Ramy Aguilera MD LAB BLOOD ORDERABLES Edited Result - [facility] [address] [facility] Department [place] [address] * (ABNORMAL) Comprehensive metabolic panel (10/07/2024 8:12 AM CDT) Sodium 140 135 - 145 mmol/L Comment:Testing performed by : [address] [address] Potassium, pl 3.9 3.3 - 4.9 mmol/L JOSELYN Comment:Testing performed by : [address] [address] Chloride 101 97 - 110 mmol/L JOSELYN Comment:Testing performed by : [address] [address] CO2 28 22 - 32 mmol/L JOSELYN Comment:Testing performed by : [address] [address] Anion gap 11 2 - 15 mmol/L JOSELYN Comment:Testing performed by : [address] [address] BUN 19 6 - 25 mg/dL JOSELYN Comment:Testing performed by : [address] [address] Creatinine 0.70 0.60 - 1.10 mg/dL JOSELYN Comment:Testing performed by : [address] [address] Glucose 104 70 - 199 mg/dL JOSELYN [...] was last revised 2022. Testing performed by: [address] [address] Calcium 9.0 8.5 - 10.3 mg/dL JOSELYN Comment:Testing performed by : [address] [address] Bilirubin, total 0.3 0.1 - 1.2 mg/dL JOSELYN Comment:Testing performed by : [address] [address] Protein, pl 6.2(L) 6.5 - 8.5 g/dL JOSELYN Comment:Testing performed by : [address] [address] Albumin 3.9 3.5 - 5.0 g/dL JOSELYN Comment:Testing performed by : [address] [address] Alk phos 128 40 - 130 Units/L JOSELYN Comment:Testing performed by : [address] [address] ALT 8 7 - 45 Units/L JOSELYN Comment:Testing performed by : [address] [address] AST 15 10 - 45 Units/L JOSELYN Comment:Testing performed by : [address] [address] Blood 10/07/2024 8:12 AM CDT 10/07/2024 8:16 AM CDT us Ramy Aguilera MD LAB BLOOD ORDERABLES Final R esult Performing Organization Address [facility] Co de Phone Number JOSELYN [address] [place] [address] * eGFR (09/30/2024 3:11 PM CDT) eGFR [...] was last reviewed 2021. Testing performed by: [address] [address] Blood 09/30/2024 3:11 PM CDT 09/30/2024 3:19 PM CDT us Ramy Aguilera MD LAB BLOOD ORDERABLES Final R esult Performing Organization Address City/[facility]/ZIP Co de Phone Number JOSELYN [address] [facility] [place] [address] * Differential, auto (09/30/2024 3:11 PM CDT) Neutrophil abs 2.34 1.50 - 6.50 K/cumm Comment:Testing performed by : [address] [address] Imm gran abs 0.02 0.00 - 0.10 K/cumm [facility] Comment:Testing performed by : [address] [address] Lymphocyte abs 3.20 0.80 - 3.30 K/cumm [facility] Comment:Testing performed by : [address] [address] Monocyte abs 0.29 0.20 - 0.80 K/cumm [facility] Comment:Testing performed by : [address], [place]., [address] Eosinophil abs 0.07 0.00 - 0.50 K/cumm [facility] Comment:Testing performed by : [address] [address] Basophil abs 0.03 0.00 - 0.10 K/cumm [facility] Comment:Testing performed by : [address] [address] Neutrophil pct 39.3 % [facility] Comment: Interpretive Data Percent cell count reference ranges are not reported, since discordance with absolute values may lead to misinterpretation of CBC data. Current Interpretive Data was last revised on 2017. Testing performed by: [address] [address] Imm gran pct 0.3 % [facility] Comment: Interpretive Data Percent cell count reference ranges are not reported, since discordance with absolute values may lead to misinterpretation of CBC data. Current Interpretive Data was last revised on 2017. Testing performed by: [address] [address] Lymphocyte pct 53.8 % [facility] Comment: Interpretive Data Percent cell count reference ranges are not reported, since discordance with absolute values may lead to misinterpretation of CBC data. Current Interpretive Data was last revised on 2017. Testing performed by: [address] [address] Monocyte pct 4.9 % [facility] Comment: Interpretive Data Percent cell count reference ranges are not reported, since discordance with absolute values may lead to misinterpretation of CBC data. Current Interpretive Data was last revised on 2017. Testing performed by: [address] [address] Eosinophil pct 1.2 % JOSELYN VAZQUEZ Comment: Interpretive Data Percent cell count reference ranges are not reported, since discordance with absolute values may lead to misinterpretation of CBC data. Current Interpretive Data was last revised on 2017. Testing performed by: [address] [address] Basophil pct 0.5 % JOSELYN VAZQUEZ Comment: Interpretive Data Percent cell count reference ranges are not reported, since discordance with absolute values may lead to misinterpretation of CBC data. Current Interpretive Data was last revised on 2017. Testing performed by: [address] [address] Blood 09/30/2024 3:11 PM CDT 09/30/2024 3:19 PM CDT us Ramy Aguilera MD LAB BLOOD ORDERABLES Final R esult JOSELYN [facility] Department [place] [address] * (ABNORMAL) CBC with auto differential (09/30/2024 3:11 PM CDT) WBC 5.95 3.80 - 9.90 K/cumm Comment:Testing performed by : [address] [address] Hgb 10.6(L) 11.9 - 15.5 g/dL JOSELYN VAZQUEZ Comment:Testing performed by : [address] [address] Hct 30.6(L) 35.6 - 45.5 % JOSELYN VAZQUEZ Comment:Testing performed by : [address] [address] Plt 150 150 - 400 K/cumm JOSELYN VAZQUEZ Comment:Testing performed by : [address] [address] MPV 9.0(L) 9.1 - 12.3 fL JOSELYN VAZQUEZ Comment:Testing performed by : [address] [address] RBC 3.35(L) 3.90 - 5.20 M/cumm JOSELYN Comment:Testing performed by : [address] [address] MCV 91.3 81.3 - 96.4 fL JOSELYN VAZQUEZ Comment:Testing performed by : [address] [address] MCH 31.6 27.1 - 33.3 pg JOSELYN Comment:Testing performed by : [address] [address] MCHC 34.6 32.3 - 35.7 g/dL JOSELYN Comment:Testing performed by : [address] [address] RDW CV 14.7 11.1 - 14.9 % JOSELYN Comment:Testing performed by : [address] [address] RDW SD 49.1(H) 35.7 - 48.1 fL JOSELYN Comment:Testing performed by : [address] [address] NRBC abs 0.00 0.00 - 0.01 K/cumm JOSELYN Comment:Testing performed by : [address] [address] ANC Prelim 2.34 1.50 - 6.50 K/cumm JOSELYN Comment: Interpretive Data The rapid ANC is a preliminary automated count and may vary from the final ANC (Neut Abs) reported in the WBC differential that follows. Current interpretive data was last revised 2024. Testing performed by: [address] [address] Blood 09/30/2024 3:11 PM CDT 09/30/2024 3:19 PM CDT us Ramy Aguilera MD LAB BLOOD ORDERABLES Final R esult JOSELYN [address] [facility] Department [place] [address] * (ABNORMAL) Lactate dehydrogenase (LD) (09/30/2024 3:11 PM CDT) Pathologist [facility] Lactate dehydrogenase (LDH) 252(H) 100 - 250 Units/L Comment:Testing performed by : [address] [address] Blood 09/30/2024 3:11 PM CDT 09/30/2024 3:19 PM CDT us Ramy Aguilera MD LAB BLOOD ORDERABLES Final R esult [facility] [address] [facility] Department [place] [address] * (ABNORMAL) Comprehensive metabolic panel (09/30/2024 3:11 PM CDT) [facility] Sodium 139 135 - 145 mmol/L Comment:Testing performed by : [address] [address] Potassium, pl 3.3 3.3 - 4.9 mmol/L JOSELYN Comment:Testing performed by : [address] [address] Chloride 97 97 - 110 mmol/L JOSELYN Comment:Testing performed by : [address] [address] CO2 29 22 - 32 mmol/L JOSELYN Comment:Testing performed by : [address] [address] Anion gap 13 2 - 15 mmol/L JOSELYN Comment:Testing performed by : [address] [address] BUN 4(L) 6 - 25 mg/dL JOSELYN Comment:Testing performed by : [address] [address] Creatinine 0.60 0.60 - 1.10 mg/dL JOSELYN Comment:Testing performed by : [address] [address] Glucose 97 70 - 199 mg/dL JOSELYN [...] was last revised 2022. Testing performed by: [address] [address] Calcium 9.4 8.5 - 10.3 mg/dL JOSELYN Comment:Testing performed by : [address] [address] Bilirubin, total 0.7 0.1 - 1.2 mg/dL JOSELYN Comment:Testing performed by : [address] [address] Protein, pl 6.1(L) 6.5 - 8.5 g/dL JOSELYN Comment:Testing performed by : [address] [address] Albumin 4.0 3.5 - 5.0 g/dL JOSELYN Comment:Testing performed by : [address] [address] Alk phos 207(H) 40 - 130 Units/L JOSELYN Comment:Testing performed by : [address] [address] ALT 13 7 - 45 Units/L JOSELYN Comment:Testing performed by : [address] [address] AST 29 10 - 45 Units/L JOSELYN Comment:Testing performed by : [address] [address] Blood 09/30/2024 3:11 PM CDT 09/30/2024 3:19 PM CDT us Ramy Aguilera MD LAB BLOOD ORDERABLES Final R esult JOSELYN MH [address] [facility] Department [place] [address] * US Guided Biopsy Lymph Node Superficial [...] in RPMI solution and submitted to the java programmer service for delivery to Surgical Pathology. No tract embolization was performed. The patient's skin was cleaned and dressed. The patient tolerated the entire procedure well without immediate complications. SARAHY Beal, was present from the beginning to the end of the procedure. SARAHY Beal performed the biopsy. Dr. Filiberto Rosales was present and participated in the procedure. Dr. Filiberto Rosales (residential green building designer) personally participated in sonographic imaging of this [...] in RPMI solution and submitted to the java programmer service for delivery to Surgical Pathology. No tract embolization was performed. The patient's skin was cleaned and dressed. The patient tolerated the entire procedure well without immediate complications. SARAHY Beal, was present from the beginning to the end of the procedure. SARAHY Beal performed the biopsy. Dr. Filiberto Rosales was present and participated in the procedure. Dr. Filiberto Rosales (residential green building designer) personally participated in sonographic imaging of this patient. IMPRESSION: 1. Successful ultrasound-guided core needle biopsy of left axillary lymph node. 2. Please see separate Surgical Pathology results for final interpretation. The radiology attending physician has personally reviewed this study, and had reviewed and/or edited this written report and agrees with it. Electronically signed by: SARAHY Beal Vinayak Olmstead MD [facility] US PROCEDURES Final R esult * Flow Leukemia/Lymphoma Lymph node (09/24/2024 1:28 PM CDT) Heath Stain Test Completed Leukemia/Lymp arianna Result See separate Surgical Pathology report. JOSELYN [facility] Lymph node 09/24/2024 1:28 PM CDT 09/24/2024 4:27 PM CDT Jamarcus Spring MD LAB PATHOLOGY ORDERABLES Frances l Result [facility] Department [place] [address] * Surgical pathology (09/24/2024 1:20 PM CDT) Tissue (Lymph node, needle biopsy) 09/24/2024 1:20 PM CDT Comment:Lymphoma Tissue specimen (specimen) (Lymph node, needle biopsy) 09/24/2024 1:28 PM CDT Comment:Lymphoma Narrative PATHOLOGY [facility] - 09/28/2024 6:22 PM CDT EPIC results best viewed via link to PDF [facility] Breana Eric [facility] [place] [address] Note to Patients: This report may contain [...] Gender: F : 1990 (Age: 34) Address: [address] [place] [address] Hospital #: [id number] Taken:09/24/2024 Received:09/24/2024 Reported: 09/28/2024 Patient Type: [facility] Inpatient Service: [facility] Location: [place] [address] Physician(s): AUDI Page Diagnosis: A. Lymph node, left axilla, needle core biopsy: - Follicular lymphoma, grade 1-2 of 3 - See comment B. Lymph node, left axilla, for flow cytometry - [id number] kappa-restricted monoclonal B-cell population detected (79% of [...] BCL2, CD21, CD23, Ki67 Neoplastic lymphocytes are [id number] B-cells co-expressing CD10, BCL-6 (subset), BCL-2 and [...] or size. Antigens expressed: CD45, CD19, CD20, Kipp, CD10, CD38(heterogenous) Antigens not expressed: CD34, Lambda, [...] flow cytometry specimen was examined for internal machined parts quality inspector purposes. Flow cytometry was performed using antibodies to the following cellular antigens: CD45, CD34, CD19, CD20, Kipp, Lambda, CD10, CD5, CD200, CD38, CD2, CD3, [...] Surgical Pathology and Flow Cytometry Departments at [facility] as part of an ongoing quality control industrial engineer program and in compliance with federally mandated [...] Surgical Pathology and Flow Cytometry Departments of [facility]. It has not been cleared or approved by the U. S. Food and Drug Administration. IMAGES AND SCANNED DOCUMENTS, IF INCLUDED, ONLY VIEWABLE IN PDF VERSION OF REPORT Vinayak Olmstead MD LAB PATHOLOGY ORDERABLES Final Result PATHOLOGY [facility] 3rd Floor [place], [place] [phone] * TRANSTHORACIC ECHO (TTE) COMPLETE W DOPPLER/CF WO CONTRAST (09/24/2024 9:35 AM CDT) EF Mod BP 69 % CONS SCIMAGE Anatomical Region Laterality Modality Ultrasound 09/24/2024 7:44 AM CDT Narrative 09/24/2024 11:04 AM CDT [facility] [place] [address] Transthoracic Echocardiographic Report Patient Name: SOHA MARRERO R : 1990 (34y 7m) Gender: F Study Date: 09/24/2024 07:44:37 AM Ht(Inch): 63 Wt(Lb): 123.02 BSA: 1.57 Hot Stick Man: Rafy Ohara RDCS Location: [id number] Order Provider: HIPOLITO ARMSTRONG Heart Rate: 97 [...] Note De Nilam Bowie MD - 09/24/2024 [facility] [place] [address] Transthoracic Echocardiographic Report Patient Name: SOHA MARRERO R : 1990 (34y 7m) Gender: F Study Date: 09/24/2024 07:44:37 AM Ht(Inch): 63 Wt(Lb): 123.02 BSA: 1.57 Hot Stick Man: Rafy Ohara RDCS Location: [id number] Order Provider:HIPOLITO ARMSTRONG Heart Rate: 97 BMI: [...] [ 46.00 - 106.00 ] MV Decel Jyew884.45 msec [ 104.00 - 258.00 ] LV [...] 1.71 - 5.00 ] RVSP30.00 mmHg RA Kulyku68.92 ml RA Volume Index22.88 ml/m2 AoR Diam 2D 2.84 cm [ 2.70 - 3.70 ] Ao Root Index 1.81 cm/m2 [ 1.00 - 2.00 ] Asc Ao Diam 2D2.69 cm Asc Ao Index1.71 cm/m2 Electronically Signed By: Nilam Alvarez MD 09/24/2024 11:03:41 AM CDT us Hipolito Armstrong MD CV ECHO PROCEDURES Final Result * eGFR (09/24/2024 2:44 AM CDT) [facility] eGFR >90 >=60 mL/min/1. 73 m2 [...] MD LAB BLOOD ORDERABLES Frances donnelly Result [facility] Department [place] [address] * (ABNORMAL) Manual Differential (09/24/2024 2:44 AM CDT) [facility] Differential Manual [facility] Neutrophil abs 3.00 1.50 - 6.50 K/cumm [facility] Lymphocyte abs 2.42 0.80 - 3.30 K/cumm [facility] Monocyte abs 0.29 0.20 - 0.80 K/cumm [facility] Eosinophil abs 0.05 0.00 - 0.50 K/cumm [facility] Basophil abs 0.05 0.00 - 0.10 K/cumm [facility] Neutrophil pct 51.7 % [facility] Comment: Interpretive Data Percent cell count reference ranges are not reported, since discordance with absolute values may lead to misinterpretation of CBC data. Current Interpretive Data was last revised on 2017. Lymphocyte pct 40.0 % [facility] Comment: Interpretive Data Percent cell count reference ranges are not reported, since discordance with absolute values may lead to misinterpretation of CBC data. Current Interpretive Data was last revised on 2017. Monocyte pct 5.0 % [facility] Comment: Interpretive Data Percent cell count reference ranges are not reported, since discordance with absolute values may lead to misinterpretation of CBC data. Current Interpretive Data was last revised on 2017. Eosinophil pct 0.8 % [facility] Comment: Interpretive Data Percent cell count reference ranges are not reported, since discordance with absolute values may lead to misinterpretation of CBC data. Current Interpretive Data was last revised on 2017. Basophil pct 0.8 % [facility] Comment: Interpretive Data Percent cell count reference ranges are not reported, since discordance with absolute values may lead to misinterpretation of CBC data. Current Interpretive Data was last revised on 2017. Variant lymph pct 1.7(H) 0.0 - 0.0 % [facility] RBC morphology Present(A) [facility] Anisocytosis Slight(A) [facility] Macrocytes 3-7/HPF(A) [facility] Platelet estimate Decreased( A) [facility] Blood 09/24/2024 2:44 AM CDT 09/24/2024 2:57 AM CDT Vinayak Olmstead MD LAB BLOOD ORDERABLES Frances cony Result [facility] Department [place] [address] * (ABNORMAL) CBC without differential (09/24/2024 2:44 AM CDT) WBC 5.81 3.80 - 9.90 K/cumm Hgb 11.1(L) 11.9 - 15.5 g/dL [facility] Hct 32.1(L) 35.6 - 45.5 % [facility] Plt 117(L) 150 - 400 K/cumm [facility] MPV 9.3 9.1 - 12.3 fL [facility] RBC 3.46(L) 3.90 - 5.20 M/cumm [facility] MCV 92.8 81.3 - 96.4 fL [facility] MCH 32.1 27.1 - 33.3 pg [facility] MCHC 34.6 32.3 - 35.7 g/dL [facility] RDW CV 15.5(H) 11.1 - 14.9 % [facility] RDW SD 52.3(H) 35.7 - 48.1 fL [facility] NRBC abs 0.00 0.00 - 0.01 K/cumm [facility] Blood 09/24/2024 2:44 AM CDT 09/24/2024 2:57 AM CDT Vinayak Olmstead MD LAB BLOOD ORDERABLES Frances l Result Performing Organization Address City/[facility]/ZIP Co de Phone Number [facility] [employer]™ [place] [address] * Phosphorus (09/24/2024 2:44 AM CDT) Pathologist [facility] Phosphorus, pl 2.8 2.3 - 4.5 mg/dL Blood 09/24/2024 2:44 AM CDT 09/24/2024 2:57 AM CDT Vinayak Olmstead MD LAB BLOOD ORDERABLES Frances l Result [facility] [employer] [place] [address] * Basic metabolic panel (09/24/2024 2:44 AM CDT) [facility] Sodium 138 135 - 145 mmol/L Potassium, pl 3.8 3.3 - 4.9 mmol/L [facility] Chloride 101 97 - 110 mmol/L [facility] CO2 27 22 - 32 mmol/L [facility] Anion gap 10 2 - 15 mmol/L [facility] BUN 6 6 - 25 mg/dL [facility] Creatinine 0.76 0.60 - 1.10 mg/dL [facility] Glucose 126 70 - 199 mg/dL [facility] Comment: Interpretive Data Fasting glucose >/= 126 [...] 2022. Calcium 9.1 8.5 - 10.3 mg/dL [facility] Blood 09/24/2024 2:44 AM CDT 09/24/2024 2:57 AM CDT Narrative [facility] - 09/24/2024 3:27 AM CDT Daily except Friday and . Morning draw. Vinayak Olmstead MD LAB BLOOD ORDERABLES Frances donnelly Result [facility] Department [place] [address] * US Chest (09/23/2024 10:33 AM CDT) [...] MD LAB URINE ORDERABLES Frances l Result [facility] Department [place] [address] * Blood culture Blood (09/22/2024 11:02 PM [...] performance characteristics have been verified by the [facility] Microbiology Laboratory. For questions about this culture, contact the Microbiology Laboratory at [phone]. Interpretive data was last revised on 24. Vinayak Olmstead MD LAB MICROBIOLOGY - GENERA L ORDERABLES Final Result [facility] CAVAZ[facility] Department [place] [address] * Blood culture Blood (09/22/2024 11:02 PM [...] performance characteristics have been verified by the [facility] Microbiology Laboratory. For questions about this culture, contact the Microbiology Laboratory at [phone]. Interpretive data was last revised on 24. us Vinayak Olmstead MD LAB MICROBIOLOGY - GENERA L ORDERABLES Final Result [facility] Department [place] [address] * Flow Leukemia/Lymphoma Blood (09/22/2024 9:52 PM CDT) Heath Stain Test Completed Leukemia/Lymp arianna Result See separate Surgical Pathology report. [facility] Blood 09/22/2024 9:52 PM CDT 09/22/2024 10:24 PM CDT us Ramy Aguilera MD LAB PATHOLOGY ORDERABLES Fin al Result [facility] Department [place] [address] * eGFR (09/22/2024 9:52 PM CDT) eGFR [...] MD LAB BLOOD ORDERABLES Frances l Result [facility] Department [place] [address] * (ABNORMAL) Manual Differential (09/22/2024 9:52 PM CDT) Differential Manual Cells Counted 120 [facility] Neutrophil abs 3.17 1.50 - 6.50 K/cumm [facility] Lymphocyte abs 3.11 0.80 - 3.30 K/cumm [facility] Monocyte abs 0.28 0.20 - 0.80 K/cumm [facility] Eosinophil abs 0.05 0.00 - 0.50 K/cumm [facility] Basophil abs 0.05 0.00 - 0.10 K/cumm [facility] Neutrophil pct 47.5 % [facility] Comment: Interpretive Data Percent cell count reference ranges are not reported, since discordance with absolute values may lead to misinterpretation of CBC data. Current Interpretive Data was last revised on 2017. Lymphocyte pct 40.0 % [facility] Comment: Interpretive Data Percent cell count reference ranges are not reported, since discordance with absolute values may lead to misinterpretation of CBC data. Current Interpretive Data was last revised on 2017. Monocyte pct 4.2 % [facility] Comment: Interpretive Data Percent cell count reference ranges are not reported, since discordance with absolute values may lead to misinterpretation of CBC data. Current Interpretive Data was last revised on 2017. Eosinophil pct 0.8 % [facility] Comment: Interpretive Data Percent cell count reference ranges are not reported, since discordance with absolute values may lead to misinterpretation of CBC data. Current Interpretive Data was last revised on 2017. Basophil pct 0.8 % [facility] Comment: Interpretive Data Percent cell count reference ranges are not reported, since discordance with absolute values may lead to misinterpretation of CBC data. Current Interpretive Data was last revised on 2017. Variant lymph pct 6.7(H) 0.0 - 0.0 % [facility] RBC morphology Present(A) [facility] Anisocytosis Slight(A) [facility] Platelet estimate Decreased( A) [facility] Blood 09/22/2024 9:52 PM CDT 09/22/2024 10:03 PM CDT Vinayak Olmstead MD LAB BLOOD ORDERABLES Frances l Result [facility] Department [place] [address] * (ABNORMAL) aPTT (09/22/2024 9:52 PM CDT) [...] ORDERABLES Frances l Result Performing Organization Address [facility] Co de Phone Number [facility] [employer] [place] [address] * Protime-INR (09/22/2024 9:52 PM CDT) PT 12.1 9.7 - 13.0 sec INR 1.12 0.90 - 1.20 [facility] Comment: Interpretive data Oral anticoagulant therapeutic ranges: Venous thromboembolism prophylaxis or treatment: 2.0-3.0 CARDIOLOGY Standard range: 2.0-3.0 High-intensity range: 2.5-3.5 Refer to indication-specific guidelines for appropriate target ranges for prosthetic heart valve replacement. Current interpretive data was last revised on 2019. Blood 09/22/2024 9:52 PM CDT 09/22/2024 10:20 PM CDT Vinayak Omlstead MD LAB BLOOD ORDERABLES Frances l Result Performing Organization Address [facility] de Phone Number [facility] [employer] [place] [address] * Fibrinogen (09/22/2024 9:52 PM CDT) Fibrinogen 212 170 - 400 mg/dL Blood 09/22/2024 9:52 PM CDT 09/22/2024 10:20 PM CDT Vinayak Olmstead MD LAB BLOOD ORDERABLES Frances l Result Performing Organization Address [facility] Co de Phone Number [facility] [employer] [place] [address] * (ABNORMAL) CBC without differential (09/22/2024 9:52 PM CDT) WBC 6.67 3.80 - 9.90 K/cumm Hgb 11.7(L) 11.9 - 15.5 g/dL [facility] Hct 33.5(L) 35.6 - 45.5 % [facility] Plt 130(L) 150 - 400 K/cumm [facility] MPV 9.1 9.1 - 12.3 fL [facility] RBC 3.68(L) 3.90 - 5.20 M/cumm [facility] MCV 91.0 81.3 - 96.4 fL [facility] MCH 31.8 27.1 - 33.3 pg [facility] MCHC 34.9 32.3 - 35.7 g/dL [facility] RDW CV 15.6(H) 11.1 - 14.9 % [facility] RDW SD 50.4(H) 35.7 - 48.1 fL [facility] NRBC abs 0.00 0.00 - 0.01 K/cumm [facility] Blood 09/22/2024 9:52 PM CDT 09/22/2024 10:03 PM CDT Vinayak Olmstead MD LAB BLOOD ORDERABLES Frances l Result Performing Organization Address City/[facility]/ZIP Co de Phone Number [facility] [place] [address] * Type and screen (09/22/2024 9:52 PM CDT) Dilma, indirect Negative ABO Rh A Positive [facility] Blood 09/22/2024 9:52 PM CDT 09/22/2024 10:43 PM CDT Narrative [facility] - 09/22/2024 11:34 PM CDT Has the patient had Daratumumab or Isatuximab in the past 6 months?->Unknown Vinayak Olmstead MD LAB BLOOD BANK TEST ORDER TANIA Final Result [facility] [employer] [place] [address] * hCG, blood, quantitative (09/22/2024 9:52 PM [...] ORDERABLES Final R esult Performing Organization Address [facility] Co de Phone Number [facility] Department [place] [address] * Uric acid (09/22/2024 9:52 PM CDT) Pathologist [facility] Uric acid 3.4 2.5 - 7.0 mg/dL Blood 09/22/2024 9:52 PM CDT 09/22/2024 10:03 PM CDT Vinayak Olmstead MD LAB BLOOD ORDERABLES Frances l Result Performing Organization Address [facility] Co de Phone Number [facility] Department [place] [address] * Phosphorus (09/22/2024 9:52 PM CDT) Phosphorus, pl 2.6 2.3 - 4.5 mg/dL Blood 09/22/2024 9:52 PM CDT 09/22/2024 10:03 PM CDT Vinayak Olmstead MD LAB BLOOD ORDERABLES Frances l Result Performing Organization Address [facility] Co de Phone Number [facility] Department [place] [address] * Magnesium (09/22/2024 9:52 PM CDT) [facility] Magnesium 1.6 1.4 - 2.5 mg/dL Blood 09/22/2024 9:52 PM CDT 09/22/2024 10:03 PM CDT Vinayak Olmstead MD LAB BLOOD ORDERABLES Frances l Result Performing Organization Address City/[facility]/ZIP Co de Phone Number [facility] [employer] [place] [address] * Lactate dehydrogenase (LD) (09/22/2024 9:52 PM CDT) [facility] Lactate dehydrogenase (LDH) 212 100 - 250 Units/L Blood 09/22/2024 9:52 PM CDT 09/22/2024 10:03 PM CDT Vinayak Olmstead MD LAB BLOOD ORDERABLES Frances l Result Performing Organization Address City/[facility] [place] [address] * (ABNORMAL) Comprehensive metabolic panel (09/22/2024 9:52 PM CDT) [facility] Sodium 139 135 - 145 mmol/L Potassium, pl 3.5 3.3 - 4.9 mmol/L [facility] Chloride 102 97 - 110 mmol/L [facility] CO2 27 22 - 32 mmol/L [facility] Anion gap 10 2 - 15 mmol/L [facility] BUN 3(L) 6 - 25 mg/dL [facility] Creatinine 0.64 0.60 - 1.10 mg/dL [facility] Glucose 113 70 - 199 mg/dL [facility] Comment: Interpretive Data Fasting glucose >/= 126 [...] MD LAB BLOOD ORDERABLES Frances l Result [facility] Department [place] [address] * Surgical pathology (09/22/2024 9:46 PM CDT) Peripheral Blood For Pathologist Review 09/22/2024 9:46 PM CDT 09/23/2024 3:14 PM CDT Narrative 09/24/2024 8:32 PM CDT EPIC results best viewed via link to PDF [facility]ana [facility] [place] [address] Note to Patients: This report may contain [...] Gender: F : 1990 (Age: 34) Address: [address] [place] [address] Hospital #: [id number] Taken:09/22/2024 Received:09/23/2024 Reported: 09/24/2024 Patient Type: [facility] Inpatient Service: [facility] Location: [place] [address] Physician(s): Ramy Aguilera M.D. Diagnosis: Peripheral blood for flow cytometry: - [id number] kappa-restricted monoclonal B cell population detected (25% [...] flow cytometry specimen was examined for internal machined parts quality inspector purposes. Flow cytometry was performed using antibodies to the following cellular antigens: CD45, CD34, CD19, CD20, Kipp, Lambda, CD10, CD5, CD200, CD38, CD2, CD3, [...] Surgical Pathology and Flow Cytometry Departments at [facility] as part of an ongoing quality control industrial engineer program and in compliance with federally mandated [...] Surgical Pathology and Flow Cytometry Departments of [facility]. It has not been cleared or approved by the U. S. Food and Drug Administration. IMAGES AND SCANNED DOCUMENTS, IF INCLUDED, ONLY VIEWABLE IN PDF VERSION OF REPORT Ramy Aguilera MD LAB PATHOLOGY ORDERABLES Fin al Result * ECG 12 lead (09/22/2024 5:13 PM CDT) Ventricular Rate EKG/Min 109 BPM [facility] Atrial Rate 109 BPM [facility] ID-Interval (MSEC) 122 ms [facility] QRS-Interval (MSEC) 90 ms [facility] QT-Interval (MSEC) 354 ms [facility] QTc 476 ms [facility] P [place] 61 degrees [facility] R [place] 59 degrees [facility] T [place] 9 degrees [facility] Diagnosis Sinus tachycardia Otherwise normal ECG When compared with ECG of 13-SEP-2024 15:43, No significant change was found Confirmed by Tani Yang MD ([id number]) on 09/27/2024 8:23:27 AM [facility] 09/22/2024 5:13 PM CDT 09/27/2024 8:23 AM CDT Vinayak Olmstead MD ECG ORDERABLES Final Res ult [facility] * PET/CT FDG Skull to Thigh (09/22/2024 [...] FDG-PET/CT IMAGING DATE OF STUDY: 09/22/2024 SCANNER: [facility] [employer] (NV1). This is a high-resolution scanner, [...] obtained. The study was interpreted on the [employer] workstation. The mean liver SUV (reported for machined parts quality inspector purposes) is 1.8. The total scanned area [...] FDG-PET/CT IMAGING DATE OF STUDY: 09/22/2024 SCANNER: [facility] [employer] (NV1). This is a high-resolution scanner, which [...] obtained. The study was interpreted on the [employer] workstation. The mean liver SUV (reported for machined parts quality inspector purposes) is 1.8. The total scanned area [...] Barbiturates, ur Not Detected CutOff 200ng/mL [facility] Comment: Interpretive Data - Barbiturates: Samples containing greater than 200 ng/mL secobarbital or other cross-reacting barbiturate compounds are reported as positive. False positive and false negative results are possible. Confirmatory testing required for definitive results. Current Interpretive Data was last reviewed 2022. Benzodiazepines, ur Screen Positive, presumptive (A) CutOff 100ng/mL [facility] Comment: Interpretive Data - Benzodiazepines: Samples [...] Cocaine, ur Not Detected CutOff 150ng/mL [facility] Comment: Interpretive Data - Cocaine: Samples [...] 2022. Oxycodone, ur Not Detected CutOff 100ng/mL [facility] Comment: Interpretive Data - Oxycodone: Samples containing greater than 100 ng/mL oxycodone or other cross-reacting compounds are reported as positive. False positive and false negative results are possible. Confirmatory testing required for definitive results. Current Interpretive Data was last reviewed 2022. Phencyclidine, ur Not Detected CutOff 25 ng/mL [facility] Comment: Interpretive Data - Phencyclidine: Samples containing greater than 25 ng/mL phencyclidine or other cross-reacting compounds are reported as positive. False positive and false negative results are possible. Confirmatory testing required for definitive results. Current Interpretive Data was last reviewed 2022. Urine Creatinine 52 mg/dL [facility] Comment: Interpretive Data Urine Creatinine: < 10 mg/dL is extremely dilute = or > 10 but < 20 mg/dL is dilute = or > 20 mg/dL is normal Current Interpretive Data was last revised on 2017. Urine 09/22/2024 1:54 AM CDT 09/22/2024 1:54 AM CDT Narrative [facility] - 09/22/2024 2:43 AM CDT Drug of Abuse screening is performed by immunoassay for medical purposes only. This is not to be used for Pain Management purposes. If Detected, confirmation testing will be performed for Amphetamines, Cocaine, Fentanyl, Methadone, Opiates, Oxycodone or Phencyclidine. Ramy Aguilera MD LAB URINE ORDERABLES Final R esult [facility] Department of Laboratories [place], [place] [id number] * (ABNORMAL) Urinalysis reflex to microscopic and culture Urine (09/22/2024 1:54 AM CDT) Color, ur Straw Yellow Clarity, ur Clear Clear [facility] Specific gravity, ur 1.007 1.003 - 1.030 [facility] pH, urine 7.0 [facility] Comment: Interpretive Data U rine pH is affected by diet, medications, systemic acid-base disturbances, and renal tubular function. pH may affect urinary stone formation. For example, urine pH below 6.0 may help reduce the tendency for calcium phosphate stones and pH greater than 6.0 may reduce the tendency for uric acid stone formation. Source: [facility] Current Interpretive Data was last revised on 2017 Protein, ur ql Negative Negative [facility] Glucose, ur ql Negative Negative [facility] Ketones, ur Negative Negative [facility] Bilirubin, ur Negative Negative [facility] Blood, ur Negative Negative [facility] Urobilinogen, ur <2.0 <2.0 mg/dL [facility] Nitrite, ur Positive(A) Negative [facility] Leukocyte esterase, ur Trace(A) Negative [facility] UA reflex comment Reflex to microscopic UA will be performed. [facility] Urine 09/22/2024 1:54 AM CDT 09/22/2024 2:00 AM CDT Terence Rader MD LAB MICROBIOLOGY - GENERAL ORD ERABLES Final Result Performing Organization Address City/[facility]/ZIP Co de Phone Number [facility] Department [place] [address] * (ABNORMAL) Urinalysis, microscopic only (09/22/2024 1:54 AM CDT) WBC, ur 6-10(A) 0 - 5 /HPF RBC, ur 0-2 0 - 2 /HPF [facility] Epithelial cells, squamous, ur 1-5 0 - 5 /HPF [facility] Bacteria, ur Trace(A) [facility] Culture Reflex Comment Reflex conditions for urine culture (WBC >10) not met. [facility] Urine 09/22/2024 1:54 AM CDT 09/22/2024 2:00 AM CDT Terence Rader MD LAB URINE ORDERABLES Final Res ult Performing Organization Address City/[facility]/ZIP Co de Phone Number [facility] Department [place] [address] * eGFR (09/22/2024 12:34 AM CDT) Pathologist [facility] eGFR >90 >=60 mL/min/1. 73 m2 Comment: [...] MD LAB BLOOD ORDERABLES Final R esult [facility] Department [place] [address] * Differential, auto (09/22/2024 12:34 AM CDT) Pathologist [facility] Neutrophil abs 2.39 1.50 - 6.50 K/cumm Imm gran abs 0.02 0.00 - 0.10 K/cumm [facility] Lymphocyte abs 2.34 0.80 - 3.30 K/cumm [facility] Monocyte abs 0.29 0.20 - 0.80 K/cumm [facility] Eosinophil abs 0.05 0.00 - 0.50 K/cumm [facility] Basophil abs 0.03 0.00 - 0.10 K/cumm [facility] Neutrophil pct 46.6 % [facility] Comment: Interpretive Data Percent cell count reference ranges are not reported, since discordance with absolute values may lead to misinterpretation of CBC data. Current Interpretive Data was last revised on 2017. Imm gran pct 0.4 % [facility] Comment: Interpretive Data Percent cell count reference ranges are not reported, since discordance with absolute values may lead to misinterpretation of CBC data. Current Interpretive Data was last revised on 2017. Lymph[facility] pct 45.7 % [facility] Comment: Interpretive Data Percent cell count reference ranges are not reported, since discordance with absolute values may lead to misinterpretation of CBC data. Current Interpretive Data was last revised on 2017. Monocyte pct 5.7 % [facility] Comment: Interpretive Data Percent cell count reference ranges are not reported, since discordance with absolute values may lead to misinterpretation of CBC data. Current Interpretive Data was last revised on 2017. Eosinophil pct 1.0 % [facility] Comment: Interpretive Data Percent cell count reference ranges are not reported, since discordance with absolute values may lead to misinterpretation of CBC data. Current Interpretive Data was last revised on 2017. Basophil pct 0.6 % [facility] Comment: Interpretive Data Percent cell count reference ranges are not reported, since discordance with absolute values may lead to misinterpretation of CBC data. Current Interpretive Data was last revised on 2017. Blood 09/22/2024 12:3 4 AM CDT 09/22/2024 1:14 AM CDT us Terence Rader MD LAB BLOOD ORDERABLES Final Res ult [facility] Department [place] [address] * (ABNORMAL) CBC with auto differential (09/22/2024 12:34 AM CDT) WBC 5.12 3.80 - 9.90 K/cumm Hgb 11.6(L) 11.9 - 15.5 g/dL [facility] Hct 32.5(L) 35.6 - 45.5 % [facility] Plt 144(L) 150 - 400 K/cumm [facility] MPV 9.1 9.1 - 12.3 fL [facility] RBC 3.58(L) 3.90 - 5.20 M/cumm [facility] MCV 90.8 81.3 - 96.4 fL [facility] MCH 32.4 27.1 - 33.3 pg [facility] MCHC 35.7 32.3 - 35.7 g/dL [facility] RDW CV 15.5(H) 11.1 - 14.9 % [facility] RDW SD 49.6(H) 35.7 - 48.1 fL [facility] NRBC abs 0.00 0.00 - 0.01 K/cumm [facility] Blood 09/22/2024 12:3 4 AM CDT 09/22/2024 1:14 AM CDT Terence Rader MD LAB BLOOD ORDERABLES Final Res ult [facility] [employer]™ [place] [address] * Uric acid (09/22/2024 12:34 AM CDT) Uric acid 3.1 2.5 - 7.0 mg/dL Blood 09/22/2024 12:3 4 AM CDT 09/22/2024 1:17 AM CDT Terence Rader MD LAB BLOOD ORDERABLES Final Res ult [facility] [employer] [place] [address] * Phosphorus (09/22/2024 12:34 AM CDT) Phosphorus, pl 3.0 2.3 - 4.5 mg/dL Blood 09/22/2024 12:3 4 AM CDT 09/22/2024 1:17 AM CDT Terence Rader MD LAB BLOOD ORDERABLES Final Res ult Performing Organization Address [facility] Co de Phone Number [facility] [employer] [place] [address] * (ABNORMAL) Magnesium (09/22/2024 12:34 AM CDT) Pathologist [facility] Magnesium 1.3(L) 1.4 - 2.5 mg/dL Blood 09/22/2024 12:3 4 AM CDT 09/22/2024 1:17 AM CDT Ramy Aguilera MD LAB BLOOD ORDERABLES Final R esult Performing Organization Address [facility] de Phone Number [facility] [employer] [place] [address] * Lactate dehydrogenase (LD) (09/22/2024 12:34 AM CDT) Pathologist [facility] Lactate dehydrogenase (LDH) 245 100 - 250 Units/L Blood 09/22/2024 12:3 4 AM CDT 09/22/2024 1:17 AM CDT Ramy Aguilera MD LAB BLOOD ORDERABLES Final R esult Performing Organization Address [facility] [place] [address] * (ABNORMAL) Comprehensive metabolic panel (09/22/2024 12:34 AM CDT) Pathologist [facility] Sodium 139 135 - 145 mmol/L Potassium, pl 2.9(L) 3.3 - 4.9 mmol/L [facility] Chloride 100 97 - 110 mmol/L [facility] CO2 26 22 - 32 mmol/L [facility] Anion gap 13 2 - 15 mmol/L [facility] BUN 3(L) 6 - 25 mg/dL [facility] Creatinine 0.66 0.60 - 1.10 mg/dL [facility] Glucose 90 70 - 199 mg/dL [facility] Comment: Interpretive Data Fasting glucose >/= 126 [...] 2022. Calcium 8.9 8.5 - 10.3 mg/dL [facility] Bilirubin, total 0.9 0.1 - 1.2 mg/dL [facility] Protein, pl 6.7 6.5 - 8.5 g/dL [facility] Albumin 3.9 3.5 - 5.0 g/dL [facility] Alk phos 186(H) 40 - 130 Units/L [facility] ALT 16 7 - 45 Units/L [facility] AST 30 10 - 45 Units/L [facility] Blood 09/22/2024 12:3 4 AM CDT 09/22/2024 1:17 AM CDT us Ramy Aguilera MD LAB BLOOD ORDERABLES Final R esult [facility] Department [place] [address] * POCT Rapid HIV Antibody Community Screening-Deann Eligible (09/21/2024 9:55 PM CDT) [facility] Rapid HIV, POC Negative Negative Lot Number [id number] QC Control Line Acceptable Blood 09/21/2024 9:55 PM CDT us Lety Anisha Zanaboni MD POINT OF CARE TEST OR DERABLES Final Result * Blastomyces antibody, EIA, serum Blood (09/17/2024 5:49 PM CDT) Pathologist [facility] Blastomyces Antibody Negative Negative [facility] Comment: A single negative result does not exclude the diagnosis of blastomycosis. Repeat testing on a new sample in 7-14 days if clinically indicated. Test Performed by: [facility] [address] [place] [address] Oyster Preparer: Trice Obrien Ph.D.; CLIA# [id number] Blood 09/17/2024 5:49 PM CDT 09/17/2024 7:15 PM CDT Jovanny Goss MD LAB MICROBIOLOGY - GENERAL ORDER TANIA Final Result Performing Organization Address [facility]/ZIP Co de Phone Number [facility] Department [place] [address] [facility] * Check Sample (09/17/2024 5:49 PM CDT) Pathologist [facility] ABO Rh A Positive [facility] HCLL OTHER 09/17/2024 5:49 PM CDT 09/17/2024 5:59 PM CDT us Ramy Aguilera MD LAB BLOOD ORDERABLES Final R esult Performing Organization Address City/[facility]/ZIP Co de Phone Number [facility] [employer] [place] [address] [facility] * eGFR (09/17/2024 4:51 PM CDT) [facility] eGFR >90 >=60 mL/min/1. 73 m2 [...] MD LAB BLOOD ORDERABLES Final Resul t [facility] Department [place] [address] * (ABNORMAL) Differential, auto (09/17/2024 4:51 PM CDT) Neutrophil abs 2.39 1.50 - 6.50 K/cumm Imm gran abs 0.02 0.00 - 0.10 K/cumm [facility] Lymphocyte abs 3.57(H) 0.80 - 3.30 K/cumm [facility] Monocyte abs 0.33 0.20 - 0.80 K/cumm [facility] Eosinophil abs 0.07 0.00 - 0.50 K/cumm [facility] Basophil abs 0.04 0.00 - 0.10 K/cumm [facility] Neutrophil pct 37.3 % [facility] Comment: Interpretive Data Percent cell count reference ranges are not reported, since discordance with absolute values may lead to misinterpretation of CBC data. Current Interpretive Data was last revised on 2017. Imm gran pct 0.3 % [facility] Comment: Interpretive Data Percent cell count reference ranges are not reported, since discordance with absolute values may lead to misinterpretation of CBC data. Current Interpretive Data was last revised on 2017. Lymphocyte pct 55.6 % [facility] Comment: Interpretive Data Percent cell count reference ranges are not reported, since discordance with absolute values may lead to misinterpretation of CBC data. Current Interpretive Data was last revised on 2017. Monocyte pct 5.1 % [facility] Comment: Interpretive Data Percent cell count reference ranges are not reported, since discordance with absolute values may lead to misinterpretation of CBC data. Current Interpretive Data was last revised on 2017. Eosinophil pct 1.1 % [facility] Comment: Interpretive Data Percent cell count reference ranges are not reported, since discordance with absolute values may lead to misinterpretation of CBC data. Current Interpretive Data was last revised on 2017. Basophil pct 0.6 % [facility] Comment: Interpretive Data Percent cell count reference ranges are not reported, since discordance with absolute values may lead to misinterpretation of CBC data. Current Interpretive Data was last revised on 2017. Blood 09/17/2024 4:51 PM CDT 09/17/2024 5:03 PM CDT us Jovanny Goss MD LAB BLOOD ORDERABLES Final Resul t [facility] Department [place] [address] * (ABNORMAL) CBC with auto differential (09/17/2024 4:51 PM CDT) WBC 6.42 3.80 - 9.90 K/cumm Hgb 11.5(L) 11.9 - 15.5 g/dL [facility] Hct 33.1(L) 35.6 - 45.5 % [facility] Plt 172 150 - 400 K/cumm [facility] MPV 9.1 9.1 - 12.3 fL [facility] RBC 3.63(L) 3.90 - 5.20 M/cumm [facility] MCV 91.2 81.3 - 96.4 fL [facility] MCH 31.7 27.1 - 33.3 pg [facility] MCHC 34.7 32.3 - 35.7 g/dL [facility] RDW CV 15.1(H) 11.1 - 14.9 % [facility] RDW SD 50.4(H) 35.7 - 48.1 fL [facility] NRBC abs 0.00 0.00 - 0.01 K/cumm [facility] Blood 09/17/2024 4:51 PM CDT 09/17/2024 5:03 PM CDT us Jovanny Goss MD LAB BLOOD ORDERABLES Final Resul t Performing Organization Address City/[facility]/ZIP Co de Phone Number [facility] [employer] [place] [address] * Type and screen (09/17/2024 4:51 PM CDT) Pathologist [facility] Dilma, indirect Negative ABO Rh A Positive [facility] Blood 09/17/2024 4:51 PM CDT 09/17/2024 5:02 PM CDT Narrative [facility] - 09/17/2024 5:54 PM CDT Has the patient had Daratumumab or Isatuximab in the past 6 months?->Unknown us Jovanny Goss MD LAB BLOOD BANK TEST ORDERABLES F inal Result Performing Organization Address [facility] Co de Phone Number [facility] [employer] [place] [address] * (ABNORMAL) Phosphorus (09/17/2024 4:51 PM CDT) Pathologist [facility] Phosphorus, pl 2.2(L) 2.3 - 4.5 mg/dL Blood 09/17/2024 4:51 PM CDT 09/17/2024 5:02 PM CDT us Jovanny Goss MD LAB BLOOD ORDERABLES Final Resul t Performing Organization Address [facility] Co de Phone Number [facility] [employer] [place] [address] * Magnesium (09/17/2024 4:51 PM CDT) Magnesium 1.7 1.4 - 2.5 mg/dL Blood 09/17/2024 4:51 PM CDT 09/17/2024 5:02 PM CDT us Jovanny Goss MD LAB BLOOD ORDERABLES Final Resul t [facility] Department [place] [address] * (ABNORMAL) Comprehensive metabolic panel (09/17/2024 4:51 PM CDT) Pathologist [facility] Sodium 143 135 - 145 mmol/L Potassium, pl 3.0(L) 3.3 - 4.9 mmol/L [facility] Chloride 102 97 - 110 mmol/L [facility] CO2 31 22 - 32 mmol/L [facility] Anion gap 10 2 - 15 mmol/L [facility] BUN 3(L) 6 - 25 mg/dL [facility] Creatinine 0.63 0.60 - 1.10 mg/dL [facility] Glucose 88 70 - 199 mg/dL [facility] Comment: Interpretive Data Fasting glucose >/= 126 [...] 2022. Calcium 8.4(L) 8.5 - 10.3 mg/dL [facility] Bilirubin, total 0.4 0.1 - 1.2 mg/dL [facility] Protein, pl 6.1(L) 6.5 - 8.5 g/dL [facility] Albumin 3.7 3.5 - 5.0 g/dL [facility] Alk phos 165(H) 40 - 130 Units/L [facility] ALT 9 7 - 45 Units/L [facility] AST 20 10 - 45 Units/L [facility] Blood 09/17/2024 4:51 PM CDT 09/17/2024 5:02 PM CDT us Jovanny Goss MD LAB BLOOD ORDERABLES Final Resul t Performing Organization Address City/[facility]/ZIP Co de Phone Number [facility] Department [place] [address] * eGFR (09/16/2024 10:20 AM CDT) eGFR [...] was last reviewed 2021. Testing performed by: [facility], [address] [place] [address]., [address] Blood 09/16/2024 10:2 0 AM CDT 09/16/2024 10:23 AM CDT us Ramy Aguilera MD LAB BLOOD ORDERABLES Final R esult [facility] [address] [facility] Department [place] [address] * Differential, auto (09/16/2024 10:20 AM CDT) Neutrophil abs 3.45 1.50 - 6.50 K/cumm Comment:Testing performed by : [address] [address] Imm gran abs 0.02 0.00 - 0.10 K/cumm [facility] Comment:Testing performed by : [address] [address] Lymphocyte abs 2.81 0.80 - 3.30 K/cumm [facility] Comment:Testing performed by : [address] [address] Monocyte abs 0.37 0.20 - 0.80 K/cumm [facility] Comment:Testing performed by : [address] [address] Eosinophil abs 0.08 0.00 - 0.50 K/cumm [facility] Comment:Testing performed by : [address] [address] Basophil abs 0.04 0.00 - 0.10 K/cumm [facility] Comment:Testing performed by : [address] [address] Neutrophil pct 50.9 % [facility] Comment: Interpretive Data Percent cell count reference ranges are not reported, since discordance with absolute values may lead to misinterpretation of CBC data. Current Interpretive Data was last revised on 2017. Testing performed by: [address] [address] Imm gran pct 0.3 % [facility] Comment: Interpretive Data Percent cell count reference ranges are not reported, since discordance with absolute values may lead to misinterpretation of CBC data. Current Interpretive Data was last revised on 2017. Testing performed by: [address] [address] Lymphocyte pct 41.5 % [facility] Comment: Interpretive Data Percent cell count reference ranges are not reported, since discordance with absolute values may lead to misinterpretation of CBC data. Current Interpretive Data was last revised on 2017. Testing performed by: [address] [address] Monocyte pct 5.5 % [facility] Comment: Interpretive Data Percent cell count reference ranges are not reported, since discordance with absolute values may lead to misinterpretation of CBC data. Current Interpretive Data was last revised on 2017. Testing performed by: [address] [address] Eosinophil pct 1.2 % [facility] Comment: Interpretive Data Percent cell count reference ranges are not reported, since discordance with absolute values may lead to misinterpretation of CBC data. Current Interpretive Data was last revised on 2017. Testing performed by: [address] [address] Basophil pct 0.6 % [facility] Comment: Interpretive Data Percent cell count reference ranges are not reported, since discordance with absolute values may lead to misinterpretation of CBC data. Current Interpretive Data was last revised on 2017. Testing performed by: [address] [address] Blood 09/16/2024 10:2 0 AM CDT 09/16/2024 10:23 AM CDT us Ramy Aguilera MD LAB BLOOD ORDERABLES Final R esult [facility] [address] [facility] Department of Laboratories [place], [place] [id number] * (ABNORMAL) CBC with auto differential (09/16/2024 10:20 AM CDT) WBC 6.77 3.80 - 9.90 K/cumm Comment:Testing performed by : [address] [address] Hgb 12.2 11.9 - 15.5 g/dL [facility] Comment:Testing performed by : [address] [address] Hct 35.4(L) 35.6 - 45.5 % [facility] Comment:Testing performed by : [address] [address] Plt 171 150 - 400 K/cumm [facility] Comment:Testing performed by : [address] [address] MPV 9.0(L) 9.1 - 12.3 fL [facility] Comment:Testing performed by : [address] [address] RBC 3.90 3.90 - 5.20 M/cumm [facility] Comment:Testing performed by : [address] [address] MCV 90.8 81.3 - 96.4 fL [facility] Comment:Testing performed by : [address] [address] MCH 31.3 27.1 - 33.3 pg [facility] Comment:Testing performed by : [address] [address] MCHC 34.5 32.3 - 35.7 g/dL [facility] Comment:Testing performed by : [address] [address] RDW CV 15.3(H) 11.1 - 14.9 % [facility] Comment:Testing performed by : [address] [address] RDW SD 49.8(H) 35.7 - 48.1 fL [facility] Comment:Testing performed by : [address] [address] NRBC abs 0.00 0.00 - 0.01 K/cumm [facility] Comment:Testing performed by : [address] [address] ANC Prelim 3.45 1.50 - 6.50 K/cumm [facility] Comment: Interpretive Data The rapid ANC is a preliminary automated count and may vary from the final ANC (Neut Abs) reported in the WBC differential that follows. Current interpretive data was last revised 2024. Testing performed by: [address] [address] Blood 09/16/2024 10:2 0 AM CDT 09/16/2024 10:23 AM CDT Ramy Aguilera MD LAB BLOOD ORDERABLES Final R esult Performing Organization Address City/[facility] Co de Phone Number JO[facility] [address] [address] * Lactate dehydrogenase (LD) (09/16/2024 10:20 AM CDT) Pathologist [facility] Lactate dehydrogenase (LDH) 186 100 - 250 Units/L Comment:Testing performed by : [address] [address] Blood 09/16/2024 10:2 0 AM CDT 09/16/2024 10:23 AM CDT Ramy Aguilera MD LAB BLOOD ORDERABLES Final R esult Performing Organization Address City/[facility] de Phone Number JOSEL[facility] [address] [place] [address] * (ABNORMAL) Comprehensive metabolic panel (09/16/2024 10:20 AM CDT) [facility] Sodium 143 135 - 145 mmol/L Comment:Testing performed by : [address] [address] Potassium, pl 3.4 3.3 - 4.9 mmol/L [facility] Comment:Testing performed by : [address] [address] Chloride 101 97 - 110 mmol/L [facility] Comment:Testing performed by : [address] [address] CO2 30 22 - 32 mmol/L [facility] Comment:Testing performed by : [address] [address] Anion gap 12 2 - 15 mmol/L [facility] Comment:Testing performed by : [address] [address] BUN 4(L) 6 - 25 mg/dL [facility] Comment:Testing performed by : [address] [address] Creatinine 0.60 0.60 - 1.10 mg/dL [facility] Comment:Testing performed by : [address] [address] Glucose 101 70 - 199 mg/dL [facility] Comment: Interpretive Data Fasting glucose >/= 126 [...] was last revised 2022. Testing performed by: [address] [address] Calcium 8.8 8.5 - 10.3 mg/dL [facility] Comment:Testing performed by : [address] [address] Bilirubin, total 0.6 0.1 - 1.2 mg/dL [facility] Comment:Testing performed by : [address] [address] Protein, pl 6.1(L) 6.5 - 8.5 g/dL [facility] Comment:Testing performed by : [address] [address] Albumin 4.2 3.5 - 5.0 g/dL [facility] Comment:Testing performed by : [address] [address] Alk phos 173(H) 40 - 130 Units/L [facility] Comment:Testing performed by : [address] [address] ALT 7 7 - 45 Units/L [facility] Comment:Testing performed by : [address] [address] AST 19 10 - 45 Units/L [facility] Comment:Testing performed by : [address] [address] Blood 09/16/2024 10:2 0 AM CDT 09/16/2024 10:23 AM CDT Ramy Aguilera MD LAB BLOOD ORDERABLES Final R esult [facility] [address] [facility] Department [place] [address] * Surgical pathology (09/15/2024 9:55 AM CDT) Tissue (Miscellaneous) 09/15/2024 9:55 AM CDT 09/15/2024 9:55 AM CDT Narrative [facility] - 09/29/2024 8:48 PM CDT EPIC results best viewed via link to PDF [facility] Pathology Consult Service [facility] [address], [place] [address] Note to Patients: This report [...] SURGICAL PATHOLOGY REPORT * Consult Report * [facility] is providing an additional review of previously collected tissue. FINAL Patient Name: SOHA MARRERO Address: [address] [place], [place] [id number] Gender: F : 1990 (Age: 34) [facility] #: [id number] Patient Type: [facility] Location: UNKNOWN Taken: 09/15/2024 Received: 09/15/2024 Accessioned: 09/16/2024 Reported: 09/29/2024 Physician(s): Ramy Aguilera M.D. [facility] Department of Pathology [facility] [address] [address] P: [phone] F: [phone] Diagnosis: Consult material received from [place], [place] (OSC: [id number]; 12/18/2022). Lymph node, axillary, core biopsy: - [...] cells is identified. Stains were performed at [facility] on the provided outside block: Neoplastic lymphocytes are [id number] B-cells co-expressing CD10, BCL-6 and BCL-2. Immunostain for CD21 highlights follicular dendritic meshwork. Immunostain for CD3 highlights T- cells. Proliferation rate, as assessed by immunostain for Ki-67, is approximately 20%. CyclinD1 is negative. PAX5 is positive. Flow cytometry (performed outside) Kipp light chain restricted CD10 positive B-cell population detected (99% of overall events). History: The patient is a 34-year-old woman with outside history of follicular lymphoma. Materials Received: Received for review are two slides labeled [id number], accompanied by a corresponding pathology report. The material originates from [place], [place]. Selected slide(s) may be digitally scanned for our files, and all materials are returned to the referring institution, along with a copy of our final report. Any testing required for diagnostic purposes was performed in the Department of Pathology and Immunology at [facility], [address] [place] [address] [place] [address] CLIA # [id number] The performance characteristics of the testing cited in this report (if any) were determined by the [facility] Department of Pathology and Immunology [facility], as part of an ongoing quality control industrial engineer program and in compliance with federally mandated [...] and the performance characteristics determined by the [facility], [facility] Department of Pathology and Immunology. It has not been cleared or approved by the U.S. Food and Drug Administration. Any test designated as LDT was developed and its performance characteristics determined by [facility]. It has not been cleared or approved by the FDA. This test is used for clinical purposes and should not be regarded as investigational or for research. Report images and/or scanned reports, if included, only viewable in PDF version of report. Ramy Aguilera MD LAB PATHOLOGY ORDERABLES Fin al Result Performing Organization Address City/[facility]/ZIP Co de Phone Number [facility] [address] [address] * CT Body Outside Reference (09/15/2024 9:49 [...] PROCEDURES Final Resu lt Performing Organization Address City/[facility]/ZIP Co de Phone Number [email or web address] * CT [...] PROCEDURES Final Resu lt Performing Organization Address [facility] de Phone Number [email or web address] * CT [...] PROCEDURES Final Resu lt Performing Organization Address [facility] Phone Number [email or web address] * CT [...] PROCEDURES Final Resu lt Performing Organization Address [facility] de Phone Number [email or web address] * PET [...] PROCEDURES Final Res ult Performing Organization Address [facility] de Phone Number [email or web address] * CT [...] PROCEDURES Final Resu lt Performing Organization Address [facility] Phone Number [email or web address] * PET [...] PROCEDURES Final Res ult Performing Organization Address [facility] de Phone Number [email or web address] * CT [...] ur Yellow Yellow Comment:Testing performed by : [address] [address] Clarity, ur Clear Clear [facility] Comment:Testing performed by : [address] [address] Specific gravity, ur 1.009 1.003 - 1.030 [facility] Comment:Testing performed by : [address] [address] pH, urine 6.5 [facility] Comment: Interpretive Data U rine pH is affected by diet, medications, systemic acid-base disturbances, and renal tubular function. pH may affect urinary stone formation. For example, urine pH below 6.0 may help reduce the tendency for calcium phosphate stones and pH greater than 6.0 may reduce the tendency for uric acid stone formation. Source: [place] [employer] Current Interpretive Data was last revised on 2017 Testing performed by: [address] [address] Protein, ur ql Negative Negative JOSELYN Comment:Testing performed by : [address] [address] Glucose, ur ql Negative Negative JOSELYN Comment:Testing performed by : [address] [address] Ketones, ur Negative Negative JOSELYN Comment:Testing performed by : [address] [address] Bilirubin, ur Negative Negative JOSELYN Comment:Testing performed by : [address] [address] Blood, ur Negative Negative JOSELYN Comment:Testing performed by : [address] [address] Urobilinogen, ur <2.0 <2.0 mg/dL JOSELYN Comment:Testing performed by : [facility], [address] [place] [address]., [address] Nitrite, ur Negative Negative JOSELYN Comment:Testing performed by : [address] [address] Leukocyte esterase, ur Negative Negative JOSELYN Comment:Testing performed by : [address] [address] UA reflex comment Reflex conditions for microscopic UA and culture not met. JOSELYN Comment:Testing performed by : [address] [address] Urine 09/13/2024 7:18 PM CDT 09/13/2024 7:22 PM CDT us Mario Murray DO LAB MICROBIOLOGY - GENERAL ORD ERABLES Final Result Performing Organization Address [facility] Co de Phone Number JOSELYN [address] [place] [address] * POCT glucose (09/13/2024 7:10 PM CDT) [facility] Glucose, POC 104 70 - 199 mg/dL Comment:Testing performed by : [address] [address] Glucose comment 1 RN/MD Notified JOSELYN Comment:Testing performed by : [address] [address] Blood 09/13/2024 7:10 PM CDT 09/13/2024 7:10 PM CDT us Notinfile Unknown LAB POCT ORDERABLES - DEVICE F inal Result Performing Organization Address City/[facility] Co de Phone Number JOSELYN [address] [place] [address] * ECG 12 lead (09/13/2024 3:43 PM CDT) [facility] Ventricular Rate EKG/Min 103 BPM [facility] Atrial Rate 103 BPM [facility] ID-Interval (MSEC) 128 ms [facility] QRS-Interval (MSEC) 88 ms [facility] QT-Interval (MSEC) 358 ms [facility] QTc 468 ms [facility] P [place] 54 degrees [facility] R [place] 55 degrees [facility] T [place] 38 degrees [facility] Diagnosis Sinus tachycardia Possible Left atrial enlargement RSR' or QR pattern in V1 suggests right ventricular conduction delay Nonspecific T wave abnormality Abnormal ECG No previous ECGs available Confirmed by YANDY LEON M.D. ([id number]) on 09/13/2024 8:06:17 PM [facility] 09/13/2024 3:43 PM CDT 09/13/2024 8:06 PM CDT Mario Murray DO ECG ORDERABLES Final Result [facility] * eGFR (09/13/2024 3:43 PM CDT) eGFR [...] was last reviewed 2021. Testing performed by: [facility], [address] [place] [address]., [address] Blood 09/13/2024 3:43 PM CDT 09/13/2024 3:48 PM CDT us Mario Murray DO LAB BLOOD ORDERABLES Final Res ult JOSELYN [address] [facility] Department [place] [address] * Differential, auto (09/13/2024 3:43 PM CDT) Neutrophil abs 2.62 1.50 - 6.50 K/cumm Comment:Testing performed by : [address] [address] Imm gran abs 0.02 0.00 - 0.10 K/cumm JOSELYN Comment:Testing performed by : [address] [address] Lymphocyte abs 2.86 0.80 - 3.30 K/cumm JOSELYN Comment:Testing performed by : [address] [address] Monocyte abs 0.58 0.20 - 0.80 K/cumm JOSELYN Comment:Testing performed by : [address] [address] Eosinophil abs 0.09 0.00 - 0.50 K/cumm JOSELYN Comment:Testing performed by : [address] [address] Basophil abs 0.05 0.00 - 0.10 K/cumm JOSELYN Comment:Testing performed by : [address] [address] Neutrophil pct 42.2 % JOSELYN Comment: Interpretive Data Percent cell count reference ranges are not reported, since discordance with absolute values may lead to misinterpretation of CBC data. Current Interpretive Data was last revised on 2017. Testing performed by: [address] [address] Imm gran pct 0.3 % JOSELYN Comment: Interpretive Data Percent cell count reference ranges are not reported, since discordance with absolute values may lead to misinterpretation of CBC data. Current Interpretive Data was last revised on 2017. Testing performed by: [address] [address] Lymphocyte pct 46.0 % [facility] Comment: Interpretive Data Percent cell count reference ranges are not reported, since discordance with absolute values may lead to misinterpretation of CBC data. Current Interpretive Data was last revised on 2017. Testing performed by: [address] [address] Monocyte pct 9.3 % [facility] Comment: Interpretive Data Percent cell count reference ranges are not reported, since discordance with absolute values may lead to misinterpretation of CBC data. Current Interpretive Data was last revised on 2017. Testing performed by: [address] [address] Eosinophil pct 1.4 % [facility] Comment: Interpretive Data Percent cell count reference ranges are not reported, since discordance with absolute values may lead to misinterpretation of CBC data. Current Interpretive Data was last revised on 2017. Testing performed by: [address] [address] Basophil pct 0.8 % [facility] Comment: Interpretive Data Percent cell count reference ranges are not reported, since discordance with absolute values may lead to misinterpretation of CBC data. Current Interpretive Data was last revised on 2017. Testing performed by: [address] [address] Blood 09/13/2024 3:43 PM CDT 09/13/2024 3:48 PM CDT us Mario Murray DO LAB BLOOD ORDERABLES Final Res ult JOSELYN [address] [facility] Department [place] [address] * (ABNORMAL) CBC with auto differential (09/13/2024 3:43 PM CDT) WBC 6.22 3.80 - 9.90 K/cumm Comment:Testing performed by : [address] [address] Hgb 12.6 11.9 - 15.5 g/dL CERNER Comment:Testing performed by : [address], [address] Hct 35.9 35.6 - 45.5 % JOSELYN Comment:Testing performed by : [address] [address] Plt 168 150 - 400 K/cumm JOSELYN Comment:Testing performed by : [address] [address] MPV 9.3 9.1 - 12.3 fL JOSELYN Comment:Testing performed by : [address], [address] RBC 4.00 3.90 - 5.20 M/cumm JOSELYN Comment:Testing performed by : [address], [address] MCV 89.8 81.3 - 96.4 fL JOSELYN Comment:Testing performed by : [address] [address] MCH 31.5 27.1 - 33.3 pg JOSELYN Comment:Testing performed by : [address] [address] MCHC 35.1 32.3 - 35.7 g/dL JOSELYN Comment:Testing performed by : [address], [address] RDW CV 15.3(H) 11.1 - 14.9 % JOSELYN Comment:Testing performed by : [address], [address] RDW SD 49.8(H) 35.7 - 48.1 fL JOSELYN Comment:Testing performed by : [address] [address] NRBC abs 0.00 0.00 - 0.01 K/cumm JOSELYN Comment:Testing performed by : [address], [address] Blood Venous blood specimen / Unknown 09/13/2024 3:43 PM CDT 09/13/2024 3:48 PM CDT Mario DooleyCinetraffic LAB BLOOD ORDERABLES Final Res ult Performing Organization Address [facility]/ZIP Co de Phone Number JOSELYN [address] [employer] [place] [address] * hCG, blood, quantitative (09/13/2024 3:43 PM CDT) [facility] hCG, quant <5.0 0.0 - 5.0 IUnits/L Comment: Interpretive Data Male: < 5 IU/L Non- premenopausal Female: <5 IU/L The [employer]mo hCG Beta Quant assay procedure was used. Results from different manufacturers or methods may not be comparable. Serial testing should be performed using the same method. Interpretive Data was last revised on 2023 Testing performed by: [address] [address] Blood 09/13/2024 3:43 PM CDT 09/13/2024 3:48 PM CDT Mario Ventiva LAB BLOOD ORDERABLES Edited Re sult - Final Performing Organization Address [facility] Co de Phone Number DARR[address] [address] * Uric acid (09/13/2024 3:43 PM CDT) [facility] Uric acid 5.0 2.5 - 7.0 mg/dL Comment:Testing performed by : [address] [address] Blood 09/13/2024 3:43 PM CDT 09/13/2024 3:48 PM CDT Mario Ventiva LAB BLOOD ORDERABLES Final Res ult Performing Organization Address City/[facility] Co de Phone Number JOSELYN [address] [id number] * Phosphorus (09/13/2024 3:43 PM CDT) [facility] Phosphorus, pl 3.0 2.3 - 4.5 mg/dL Comment:Testing performed by : [address] [address] Blood 09/13/2024 3:43 PM CDT 09/13/2024 3:48 PM CDT Mario Murray DO LAB BLOOD ORDERABLES Final Res ult Performing Organization Address [facility]/ZIP Co de Phone Number [address] [employer] [place] [address] * Magnesium (09/13/2024 3:43 PM CDT) [facility] Magnesium 1.8 1.4 - 2.5 mg/dL Comment:Testing performed by : [address] [address] Blood 09/13/2024 3:43 PM CDT 09/13/2024 3:48 PM CDT Spike Perales III, MD LAB BLOOD ORDERABLES F inal Result Performing Organization Address [facility] Co de Phone Number [address] [address] * Lipase (09/13/2024 3:43 PM CDT) [facility] Lipase 11 10 - 99 Units/L Comment:Testing performed by : [address] [address] Blood Venous blood specimen / Unknown 09/13/2024 3:43 PM CDT 09/13/2024 3:48 PM CDT Mario Murray DO LAB BLOOD ORDERABLES Final Res ult Performing Organization Address [facility] Co de Phone Number [address] [address] * Lactate dehydrogenase (LD) (09/13/2024 3:43 PM CDT) [facility] Lactate dehydrogenase (LDH) 216 100 - 250 Units/L Comment:Testing performed by : [address] [address] Blood 09/13/2024 3:43 PM CDT 09/13/2024 3:48 PM CDT us Mario Trevor DO LAB BLOOD ORDERABLES Final Res ult [facility] [address] [facility] Department [place] [address] * (ABNORMAL) Comprehensive metabolic panel (09/13/2024 3:43 PM CDT) Pathologist [facility] Sodium 143 135 - 145 mmol/L Comment:Testing performed by : [address] [address] Potassium, pl 2.7(L) 3.3 - 4.9 mmol/L JOSELYN Comment:Testing performed by : [address] [address] Chloride 99 97 - 110 mmol/L JOSELYN Comment:Testing performed by : [address] [address] CO2 28 22 - 32 mmol/L JOSELYN Comment:Testing performed by : [address] [address] Anion gap 16(H) 2 - 15 mmol/L JOSELYN Comment:Testing performed by : [address] [address] BUN 5(L) 6 - 25 mg/dL JOSELYN Comment:Testing performed by : [address] [address] Creatinine 0.60 0.60 - 1.10 mg/dL JOSELYN Comment:Testing performed by : [address] [address] Glucose 69(L) 70 - 199 mg/dL JOSELYN [...] was last revised 2022. Testing performed by: [address] [address] Calcium 9.2 8.5 - 10.3 mg/dL JOSELYN Comment:Testing performed by : [address] [address] Bilirubin, total 0.5 0.1 - 1.2 mg/dL JOSELYN Comment:Testing performed by : [address] [address] Protein, pl 6.4(L) 6.5 - 8.5 g/dL JOSELYN Comment:Testing performed by : [address] [address] Albumin 4.2 3.5 - 5.0 g/dL JOSELYN Comment:Testing performed by : [address] [address] Alk phos 155(H) 40 - 130 Units/L JOSELYN Comment:Testing performed by : [address] [address] ALT 6(L) 7 - 45 Units/L JOSELYN Comment:Testing performed by : [address] [address] AST 15 10 - 45 Units/L JOSELYN Comment:Testing performed by : [address] [address] Blood 09/13/2024 3:43 PM CDT 09/13/2024 3:48 PM CDT us Mario Murray DO LAB BLOOD ORDERABLES Final Res ult JOSELYN [facility] Department [place] [address] from Last 3 Months Insurance [facility] Advance Directives For more information, please contact: [phone] * Full Code (Latest Code Status on File) Date Activated Date Inactivated Comments 09/22/2024 9:00 PM 09/24/2024 10:30 PM * Full Code Date Activated Date Inactivated Comments 09/17/2024 2:33 PM 09/17/2024 11:31 PM Care Teams Painter And Decorator Relationship Specialty Start Date End Date Richard Fish NP [address] [place] [address] PCP - General Nurse Practitioner 02/13/24 Ramy Aguilera MD [facility] [address] [place] [address] Medical Oncologist/Salmon Troll [facility] 09/23/24
--- OUTSIDE RECORDS SUMMARY | 2024-10-10 22:23 | XMS_ITS | Clinical Summary ---
Author Organization [facility] Address [address] [place] [address] Phone Care Team Providers Care Business Test Analyst Name Role Phone Gabriel Salmeron MD Unavailable [...] current use Anxiety 05/07/2023 Under care of senior living service 05/07/2023 Overview (05/07/2023): Two previous stays at senior living Child living with her parents Resolved Problems Problem Noted Date Diagnosed Date Resolved Date LRTI (lower respiratory tract infection) 09/09/2023 11/26/2023 Lymphoma 05/07/2023 10/29/2023 Overview (05/21/2023): Resistant to care No show ONC Refusing hospice 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/21/2023): Current cannabis; 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 Oncology Services [address] [place] [address] Gabriel Salmeron MD from Last [...] Recorded In the past 12 months has [employer], gas, oil, or water jigl threatened to shut off services in your home? Yes 05/07/2023 Social Connection and Isolation Panel Answer Date Recorded In a typical week, how many times do you talk on the phone with family, friends, or neighbors? Once a week 05/07/2023 How often do you get together with friends or re latives? Once a week 05/07/2023 How often do you attend confucianist or roman catholic serv ices? Never 05/07/2023 Do you belong to any clubs o r organizations such as confucianist groups, unions, fraternal or athletic groups, or [...] Total Score - Questions 1-9 9 06/06 [facility] - [...] place to sleep or slept in a fci (including now)? 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 Sexual Orientation Not on file Last [...] Ready to change Department associated with goal: [facility] Steps to [...] a triggering event occurs Insurance MEDICAID [facility] GENERIC Care Teams Business Test Analyst Relationship Specialty Start Date End Date Provider, None [place] PCP - General 06/17/24 Gabriel Salmeron MD [address] [place] [address] Consulting Physician Medical Oncology 05/23/23 Brooks Sosa MD [address] [facility] [place] [address] Consulting Physician Neurology 01/22/24 Kervin Jiang MD [address] [facility] [address] Consulting Physician General Surgery 06/11/24
--- OUTSIDE RECORDS SUMMARY | 2024-10-10 22:24 | XMS_ITS | Encounter Summary ---
Author Organization [facility] Healthcare Address [address] [place] [address] Care Team Providers Care Fulfillment Coordinator Name Role Phone Richard Fish NP Primary Care Provider Ramy Aguilera MD Unavailable [phone] Encounter Details Date Type Department Care Team (Late st Contact Info) Description 09/21/2024 Hospital Encounter [facility] ADMIT [address] [place] [address] Ramy Aguilera MD [address] [place] [address] Social History Tobacco Use Types Packs/Day Years [...] on filedocumented in this encounter Care Teams Fulfillment Coordinator Relationship Specialty Start Date End Date Richard Fish NP [address] [place] [address] PCP - General Nurse Practitioner 02/13/24 Ramy Aguilera MD [address] [place] [address] Medical Oncologist/Celebrity Chef Entrepreneur Media Personality Internal Medicine 09/23/24 documented as of this encounter
--- OUTSIDE RECORDS SUMMARY | 2024-10-10 22:24 | XMS_ITS | Clinical Summary ---
Author Organization [facility] Address [address] [facility] [place] [address] Care Team Providers Care Dairy Processing Supervisor Name Role Phone Unavailable Primary Care [...] Pain, Mild. Active naloxone (NARCAN) 4 mg/spray [place], Non-Aerosol EMERGENCY USE ONLY: Administer 1 spray [...] Data STL ABSTRACTION Provider, Abstract 08/17/[address] [facility] Oncology and Hematology - [place] [address] [place] [address] [address] [place] [phone] Marv Hernandes MD Re-establishing care from [...] Comments Blood Pressure 109/66 04/17/2023 8:40 AM PULL OVER Pulse 111 04/17/2023 8:40 AM PULL OVER Temperature 36.6 C (97.9 F) 04/17/2023 8:40 AM PULL OVER Respiratory Rate 10 04/17/2023 8:40 AM PULL OVER Oxygen Saturation 92% 03/27/2023 11:06 AM PULL OVER Inhaled Oxygen Concentration - - Weight 51.3 kg (113 lb) 04/17/2023 8:40 AM PULL OVER Height 162.6 cm (5' 4) 03/24/2023 6:27 PM PULL OVER Body Mass Index 19.4 03/24/2023 6:27 PM PULL OVER Plan of Treatment Health Maintenance Due Date [...] Advance Directives For more information, please contact: [phone] * Full Code (Latest Code Status on File) Date Activated Date Inactivated Comments 03/25/2023 1:09 AM 03/26/2023 3:29 PM
--- OUTSIDE RECORDS SUMMARY | 2024-10-10 22:24 | XMS_ITS | Encounter Summary ---
Author Organization [facility] Address [address] [facility] [place] [address] Care Team Providers Care Weblogic Administrator Name Role Phone Unavailable Primary Care Provider Unavailabl e Encounter Details Date Type Department Care Team (Late st Contact Info) Description 12/19/2022 Lab Requisition [facility] - Pathology Lab [address] [place] [address] Ishan Escobedo MD [address] [address] Illness, unspecified Social History Tobacco [...] CDT) Case Report Surgical Pathology Report Case: [id number] Authorizing Provider: Ishan Escobedo MD Collected: 12/18/2022 09:00 AM Ordering Location: [facility] Care Pathology Lab Received: 12/19/2022 01:25 PM [...] CD10 co-expression. Axillary lymph node, flow cytometry ([id number]): - [place] light chain restricted CD10+ B-cell population detected (~99% of overall events) Also received from [facility] is a peripheral smear showing circulating follicular lymphoma cells with occasional nuclear clefts. The peripheral blood is involved by follicular lymphoma. 12/19/2022 3:33 PM CDT [facility] PATHOLOGY LAB Clinical History Suspect lymphoma. 12/19/2022 3:33 PM [facility] PATHOLOGY LAB Materials Received Received are 4 slide(s) and 1 block labeled [id number] along with a copy of the outside pathology report. The materials originate from [facility], [address] [place] [address]. All original materials are returned to the referring institution, along with a copy of our final report. 12/19/2022 3:33 PM T [facility] PATHOLOGY LAB Pathologist Location at [facility] 12/19/2022 3:33 PM T [facility] PATHOLOGY LAB Disclaimer The performance characteristics of [...] attending (teaching) pathologist. 12/19/2022 3:33 PM T [facility] PATHOLOGY LAB Embedded Images 12/19/2022 3:33 PM T [facility] PATHOLOGY LAB Pathology/Cytolo gy BIOPSY OF LYMPH NODE / Unknown 12/18/2022 9:00 AM CDT 12/19/2022 1:25 PM CDT us Ishan Escobedo MD LAB - PATHOLOGY/CYTOLOGY ORDERAB LES Final Result [facility] PATHOLOGY LAB [address] [facility] [phone] documented in this encounter Visit Diagnoses Diagnosis Illness, unspecified documented in this encounter
--- OUTSIDE RECORDS SUMMARY | 2024-10-10 22:24 | XMS_ITS | Encounter Summary ---
Author Organization [facility] Address [address] [facility] [address] Care Team Providers Care Taper/Finisher Name Role Phone Unavailable Primary Care Provider Unavailabl e Encounter Details Date Type Department Care Team (Late st Contact Info) Description 12/18/2022 Lab Requisition [facility] - Pathology Lab [address] [place] [address] Ishan Escobedo MD [address] [place] [phone] Generalized enlarged lymph nodes Social History [...] AM CDT) Case Report Flow Cytometry Case: [id number] Authorizing Provider: Ishan Escobedo MD Collected: 12/18/2022 09:00 AM Ordering Location: [facility] Care Pathology Lab Received: 12/18/2022 03:11 PM Pathologist: Giovanni Chow MD Specimen: Axillary Lymph Node, RIGHT 12/18/2022 5:15 PM CDT [facility] Final Diagnosis Axillary lymph node, flow cytometry: - [place] light chain restricted CD10+ B-cell population detected (~99% of overall events) 12/18/2022 5:15 PM CDT [facility] at 1714 CDT Flow Cytometry Interpretation Viability: 87%. B-cells: monoclonal, kappa-restricted, expressing CD19, CD20, and CD10. T-cells: not increased, no immunophenotypic aberrancy. A cytospin prepared from the flow cytometry specimen has been reviewed for it quality analyst purposes. 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 Histologic slides are pending for final subclassification. 12/18/2022 5:15 PM [facility] PATHOLOGY LAB Flow Cytometry Results Differential Result Comment Flow Cell Count /uL 9,000 Total Viability % 87.0 Lymphocytes % 99 Dim CD45 Region % 0 Monocytes % 0 Granulocytes % 1 12/18/2022 5:15 PM [facility] PATH[facility] Reason for test Generalized enlarged lymph nodes 785.6 12/18/2022 5:15 PM [facility] PATH[facility] Client Specimen ID # [id number] 12/18/2022 5:15 PM [facility] PATH[facility] LAB Number of markers 16 were performed. A-2 Flow CD3 A-4 Flow CD10 A-6 Flow CD20 A-7 Flow CD23 A-12 Flow CD2 A-13 Flow CD4 A-16 Flow CD1a A-3 Flow CD5 A-5 Flow CD19 A-8 Flow CD34 A-9 Flow CD45 A-14 Flow CD7 A-15 Flow CD8 A-17 Flow CD30 A-10 Smarr+CD19+ A-11 Lambda+CD19+ 12/18/2022 5:15 PM [facility] PATH[facility] Pathologist Location at [facility] 12/18/2022 5:15 PM [facility] PATHOLOGY LAB Disclaimer Test performed at [facility], [address] [place] [address], [address]. *The established laboratory minimum viability is 70%. [...] PATHOLOGY LAB Embedded Images 5:15 PM CDT [facility] PATHOLOGY LAB Pathology/Cytolo gy AXILLARY LYMPH NODE STRUCTURE / Unknown 12/18/2022 9:00 AM CDT 12/18/2022 3:11 PM CDT us Ishan Escobedo MD LAB - PATHOLOGY/CYTOLOGY ORDERAB LES Final Result [facility] PATHOLOGY LAB [address] [phone] documented in this encounter Visit Diagnoses Diagnosis Generalized enlarged lymph nodes Enlargement of lymph nodes documented in this encounter
--- OUTSIDE RECORDS SUMMARY | 2024-10-10 22:24 | XMS_ITS | Clinical Summary ---
Author Organization [facility] Address [address] [place] [address] Care Team Providers Care Phlebotomy Director Name Role Phone None, Provider MD Primary [...] - 09/18/2024 11:59 PM CDT Hospital Encounter [facility] [place] [address] Non-Staff, Provider Discharge Disposition: Home or Self [...] Documents on File Type Date Recorded Patient Bracelet Former Expl anation Legal Documents 05/21/2023 3:56 PM Care Teams Phlebotomy Director Relationship Specialty Start Date End Date None, Provider, MD PCP - General UNKNOWN PHYSICIAN SPECIALTY 11/19/22
--- OUTSIDE RECORDS SUMMARY | 2024-10-10 22:24 | XMS_ITS | Clinical Summary ---
Author Organization [facility] Address [address] [place] [address] Care Team Providers Care General Operator Name Role Phone Unavailable Primary Care Provider Unavailabl e Source Comments [facility],non-owned Affiliates and Associated Physician Practices is amultiple site organization consisting of ambulatory clinics and hospital sitesin [place], [place], [place] and [place]. This disclosure is being madepursuant to the Care Everywhere program and may not contain all information available regarding this patient. Last updated 17.[facility] Social History Tobacco Use Types Packs/Day Years [...] patient's age to complete this topic Insurance [address] [address]
--- OUTSIDE RECORDS SUMMARY | 2024-10-10 22:24 | XMS_ITS | Clinical Summary ---
Author Organization [place] [id number] [facility] Address [address] [place] [address] Care Team Providers Care Machine Brush Maker Name Role Phone Richard Fish NP Primary Care Provider Ramy Aguilera MD Unavailable [phone] Allergies Active Allergy Reactions Criticality Noted Date [...] - Plan to discharge patient with outpatient [facility] follow-up on 09/30/24. Assessment & Plan (09/23/2024 [...] - Plan to discharge patient with outpatient [facility] follow-up on 09/30/24. Assessment & Plan (09/23/2024 [...] Team Description 10/07/2024 8:45 AM CDT Infusion [facility] at [address] [phone] Follicular lymphoma, unspecified follicular lymphoma type, unspecified body region (HCC) (Primary Dx) 10/07/2024 8:15 AM CDT Lab [address] [address] Follicular lymphoma, unspecified follicular lymphoma type, unspecified body region (HCC) 10/01/2024 Orders Only [facility] Oncology [address] [place] [phone] Ramy Aguilera MD 09/30/2024 3:30 PM CDT Office Visit [facility] Bone Marrow Transplant [address] [place] [phone] Ramy Aguilera MD Follicular lymphoma, unspecified follicular lymphoma type, unspecified body region (HCC) (Primary Dx) 09/30/2024 3:00 PM CDT Lab [address] [address] Follicular lymphoma, unspecified follicular lymphoma type, unspecified body region (HCC); Follicular lymphoma grade III, unspecified body region (HCC) 09/30/2024 Orders Only [address] [phone] Paulina German RPh 09/28/2024 Telephone [facility] Oncology [address] [place] [phone] Tanesha Srinivasan RN 09/24/2024 Orders Only [facility] Bone Marrow Transplant [address] [place] [phone] Ramy Aguilera MD 09/21/2024 10:26 PM CDT - 09/24/2024 6:25 PM CDT Hospital Encounter [address] [phone] Zahra Alston MD Patel, Dilan Anil, MD Kim, MD Krishna Sosa, MD Saw Mendoza, Jamarcus Barahona MD Follicular lymphoma, unspecified follicular lymphoma type, unspecified body region (HCC) (Primary Dx) Discharge Disposition: Discharge to home or self care 09/21/2024 Documentation [facility] Bone Marrow Transplant [address] [place] [phone] Ramy Aguilera MD 09/21/2024 Hospital Encounter [facility] ADMIT [address] [place] [phone] Ramy Aguilera MD 09/17/2024 2:24 PM CDT - 09/17/2024 7:26 PM CDT Hospital Encounter [address] [phone] Ramy Aguilera MD Jeon, Alvin, MD Discharge Disposition: Left Against Medical Advice 09/17/2024 Documentation [facility] Oncology [facility] [address] [phone] Suzanne Martinez RN 09/16/2024 12:00 PM CDT Office Visit [facility] Bone Marrow Transplant [address] [place] [address] [place] [phone] Ramy Aguilera MD Follicular lymphoma grade III, unspecified body region (HCC) (Primary Dx) 09/16/2024 10:30 AM CDT Lab [facility] at [address] [address] Follicular lymphoma grade III, unspecified body region (HCC) 09/15/2024 9:49 AM CDT - 09/15/2024 11:59 PM CDT Hospital Encounter [facility] [address] [place] [address] Discharge Disposition: Discharge to home or self care 09/15/2024 9:48 AM CDT - 09/15/2024 11:59 PM CDT Hospital Encounter [facility]) [address] [place] [address] Discharge Disposition: Discharge to home or self care 09/15/2024 9:47 AM CDT - 09/15/2024 11:59 PM CDT Hospital Encounter [facility] [address] [place] [address] Discharge Disposition: Discharge to home or self care 09/15/2024 9:47 AM CDT - 09/15/2024 11:59 PM CDT Hospital Encounter [facility] ([facility]) [address] [place] [address] Discharge Disposition: Discharge to home or self care 09/15/2024 9:46 AM CDT - 09/15/2024 11:59 PM CDT Hospital Encounter [facility]) [address] [place] [address] Discharge Disposition: Discharge to home or self care 09/15/2024 9:45 AM CDT - 09/15/2024 11:59 PM CDT Hospital Encounter [facility] ([facility]) [address] [place] [address] Discharge Disposition: Discharge to home or self care 09/15/2024 9:45 AM CDT - 09/15/2024 11:59 PM CDT Hospital Encounter [facility] ([facility]) [address] [place] [address] Discharge Disposition: Discharge to home or self care 09/15/2024 9:44 AM CDT - 09/15/2024 11:59 PM CDT Hospital Encounter [facility] ([facility]) [address] [place] [address] Discharge Disposition: Discharge to home or self care 09/15/2024 Orders Only [facility] [address] [place] [address] Ramy Aguilera MD Lymphoma of lymph nodes (HCC) 09/14/2024 Orders Only [facility] Oncology [address] [facility] [address] [place] [phone] Ramy Aguilera MD Lymphoma of lymph nodes (HCC) (Primary Dx) 09/13/2024 7:06 PM CDT - 09/13/2024 8:33 PM CDT Emergency [facility] Emergency Department [address] [place] [address] Mario Murray DO Lymphoma, unspecified body region, unspecified lymphoma type (HCC) (Primary Dx); Hypokalemia; Vaginal bleeding; Myalgia Discharge Disposition: Discharge to home or self care 09/05/2024 Documentation [facility] Oncology [address] [facility] Floor [address] [place] [phone] Nora Cheema MD 08/23/[address] [phone] Hannah Wilder, GUERO Scheduling Appointments 08/12/[address] [phone] Hannah Wilder, GUERO Scheduling Appointments [...] was last reviewed 2021. Testing performed by: [address] [address] Blood 10/07/2024 8:12 AM CDT 10/07/2024 8:16 AM CDT us Ramy Aguilera MD LAB BLOOD ORDERABLES Final R esult [facility] [address] [facility] [place] [address] * (ABNORMAL) Differential, auto (10/07/2024 8:12 AM CDT) Neutrophil abs 5.64 1.50 - 6.50 K/cumm Comment:Testing performed by : [address] [address] Imm gran abs 0.08 0.00 - 0.10 K/cumm JOSELYN Comment:Testing performed by : [address] [address] Lymphocyte abs 12.57(H) 0.80 - 3.30 K/cumm JOSELYN Comment:Testing performed by : [address] [address] Monocyte abs 0.33 0.20 - 0.80 K/cumm JOSELYN Comment:Testing performed by : [address] [address] Eosinophil abs 0.02 0.00 - 0.50 K/cumm JOSELYN Comment:Testing performed by : [address] [address] Basophil abs 0.03 0.00 - 0.10 K/cumm JOSELYN Comment:Testing performed by : [address] [address] Neutrophil pct 30.2 % JOSE[facility]N Comment: Interpretive Data Percent cell count reference ranges are not reported, since discordance with absolute values may lead to misinterpretation of CBC data. Current Interpretive Data was last revised on 2017. Testing performed by: [address] [address] Imm gran pct 0.4 % JOSEYLN Comment: Interpretive Data Percent cell count reference ranges are not reported, since discordance with absolute values may lead to misinterpretation of CBC data. Current Interpretive Data was last revised on 2017. Testing performed by: [address] [address] Lymphocyte pct 67.3 % JOSELYN Comment: Interpretive Data Percent cell count reference ranges are not reported, since discordance with absolute values may lead to misinterpretation of CBC data. Current Interpretive Data was last revised on 2017. Testing performed by: [address] [address] Monocyte pct 1.8 % [facility] Comment: Interpretive Data Percent cell count reference ranges are not reported, since discordance with absolute values may lead to misinterpretation of CBC data. Current Interpretive Data was last revised on 2017. Testing performed by: [address] [address] Eosinophil pct 0.1 % [facility] Comment: Interpretive Data Percent cell count reference ranges are not reported, since discordance with absolute values may lead to misinterpretation of CBC data. Current Interpretive Data was last revised on 2017. Testing performed by: [address] [address] Basophil pct 0.2 % [facility] Comment: Interpretive Data Percent cell count reference ranges are not reported, since discordance with absolute values may lead to misinterpretation of CBC data. Current Interpretive Data was last revised on 2017. Testing performed by: [address] [address] Blood 10/07/2024 8:12 AM CDT 10/07/2024 8:16 AM CDT us Ramy Aguilera MD LAB BLOOD ORDERABLES Final R esult [facility] [address] [facility] Department of Laboratories [place], [place] [id number] * (ABNORMAL) CBC with auto differential (10/07/2024 8:12 AM CDT) WBC 18.67(H) 3.80 - 9.90 K/cumm Comment:Testing performed by : [address] [address] Hgb 10.6(L) 11.9 - 15.5 g/dL JOSELYN Comment:Testing performed by : [address] [address] Hct 32.3(L) 35.6 - 45.5 % JOSELYN Comment:Testing performed by : [address] [address] Plt 256 150 - 400 K/cumm JOSELYN Comment:Testing performed by : [address] [address] MPV 9.1 9.1 - 12.3 fL JO[facility]LYN Comment:Testing performed by : [address] [address] RBC 3.44(L) 3.90 - 5.20 M/cumm JOSELYN Comment:Testing performed by : [address], [address] MCV 93.9 81.3 - 96.4 fL JO[facility]N Comment:Testing performed by : [address] [address] MCH 30.8 27.1 - 33.3 pg JOSELYN Comment:Testing performed by : [address] [address] MCHC 32.8 32.3 - 35.7 g/dL JO[facility]N Comment:Testing performed by : [address], [address] RDW CV 14.6 11.1 - 14.9 % JOSE[facility]N Comment:Testing performed by : [address] [address] RDW SD 50.0(H) 35.7 - 48.1 fL JO[facility]N Comment:Testing performed by : [address] [address] NRBC abs 0.00 0.00 - 0.01 K/cumm JOSELYN Comment:Testing performed by : [address] [place]., [address] ANC Prelim 5.64 1.50 - 6.50 K/cumm JOSELYN VAZQUEZ Comment: Interpretive Data The rapid ANC is a preliminary automated count and may vary from the final ANC (Neut Abs) reported in the WBC differential that follows. Current interpretive data was last revised 2024. Testing performed by: [address] [address] Morphologic Screen Results confirmed by manual morphology review. JOSELYN Comment:Testing performed by : [address] [address] Blood 10/07/2024 8:12 AM CDT 10/07/2024 8:16 AM CDT Ramy Aguilera MD LAB BLOOD ORDERABLES Edited Result - Final Performing Organization Address [facility] Co de Phone Number [place] [phone] [facility] [place] [address] * hCG, blood, quantitative (10/07/2024 8:12 AM CDT) Pathologist [facility] hCG, quant <5.0 0.0 - 5.0 IUnits/L Comment: Interpretive Data Male: < 5 IU/L Non- premenopausal Female: <5 IU/L The Cosmo hCG Beta Quant assay procedure was used. Results from different manufacturers or methods may not be comparable. Serial testing should be performed using the same method. Interpretive Data was last revised on 2023 Testing performed by: [address] [address] Blood 10/07/2024 8:12 AM CDT 10/07/2024 9:06 AM CDT Narrative JOSELYN VAZQUEZ - 10/07/2024 10:00 AM CDT Need before treatment start Ramy Aguilera MD LAB BLOOD ORDERABLES Edited Result - Final Performing Organization Address [facility]/ZIP Co de Phone Number [place] [phone] [facility] [place] [address] * (ABNORMAL) Comprehensive metabolic panel (10/07/2024 8:12 AM CDT) Sodium 140 135 - 145 mmol/L Comment:Testing performed by : [address] [address] Potassium, pl 3.9 3.3 - 4.9 mmol/L JOSELYN Comment:Testing performed by : [address] [address] Chloride 101 97 - 110 mmol/L [facility] Comment:Testing performed by : [address] [address] CO2 28 22 - 32 mmol/L [facility] Comment:Testing performed by : [address] [address] Anion gap 11 2 - 15 mmol/L [facility] Comment:Testing performed by : [address] [address] BUN 19 6 - 25 mg/dL [facility] Comment:Testing performed by : [address], [place]., [address] Creatinine 0.70 0.60 - 1.10 mg/dL [facility] Comment:Testing performed by : [address] [address] Glucose 104 70 - 199 mg/dL [facility] Comment: Interpretive Data Fasting glucose >/= 126 [...] was last revised 2022. Testing performed by: [address] [address] Calcium 9.0 8.5 - 10.3 mg/dL [facility] Comment:Testing performed by : [address] [address] Bilirubin, total 0.3 0.1 - 1.2 mg/dL JOSELYN Comment:Testing performed by : [address] [address] Protein, pl 6.2(L) 6.5 - 8.5 g/dL JOSELYN Comment:Testing performed by : [address] [address] Albumin 3.9 3.5 - 5.0 g/dL JOSE[facility]N Comment:Testing performed by : [address], [address] Alk phos 128 40 - 130 Units/L JOSELYN Comment:Testing performed by : [address] [address] ALT 8 7 - 45 Units/L JOSELYN Comment:Testing performed by : [address], [address] AST 15 10 - 45 Units/L JO[facility]N Comment:Testing performed by : [address] [address] Blood 10/07/2024 8:12 AM CDT 10/07/2024 8:16 AM CDT us Ramy Aguilera MD LAB BLOOD ORDERABLES Final R esult [facility] [address] [facility] Department of Laboratories [place], [place] [id number] * eGFR (09/30/2024 3:11 PM CDT) eGFR [...] was last reviewed 2021. Testing performed by: [address] [address] Blood 09/30/2024 3:11 PM CDT 09/30/2024 3:19 PM CDT us Ramy Aguilera MD LAB BLOOD ORDERABLES Final R esult [facility] [address] [facility] [place] [address] * Differential, auto (09/30/2024 3:11 PM CDT) Neutrophil abs 2.34 1.50 - 6.50 K/cumm Comment:Testing performed by : [address] [address] Imm gran abs 0.02 0.00 - 0.10 K/cumm JOSELYN Comment:Testing performed by : [address] [address] Lymphocyte abs 3.20 0.80 - 3.30 K/cumm JOSELYN Comment:Testing performed by : [address] [address] Monocyte abs 0.29 0.20 - 0.80 K/cumm JOSELYN Comment:Testing performed by : [address] [address] Eosinophil abs 0.07 0.00 - 0.50 K/cumm JOSELYN Comment:Testing performed by : [address] [address] Basophil abs 0.03 0.00 - 0.10 K/cumm JOSELYN Comment:Testing performed by : [address] [address] Neutrophil pct 39.3 % [facility] Comment: Interpretive Data Percent cell count reference ranges are not reported, since discordance with absolute values may lead to misinterpretation of CBC data. Current Interpretive Data was last revised on 2017. Testing performed by: [address] [address] Imm gran pct 0.3 % [facility] Comment: Interpretive Data Percent cell count reference ranges are not reported, since discordance with absolute values may lead to misinterpretation of CBC data. Current Interpretive Data was last revised on 2017. Testing performed by: [address] [address] Lymphocyte pct 53.8 % [facility] Comment: Interpretive Data Percent cell count reference ranges are not reported, since discordance with absolute values may lead to misinterpretation of CBC data. Current Interpretive Data was last revised on 2017. Testing performed by: [address] [address] Monocyte pct 4.9 % [facility] Comment: Interpretive Data Percent cell count reference ranges are not reported, since discordance with absolute values may lead to misinterpretation of CBC data. Current Interpretive Data was last revised on 2017. Testing performed by: [address] [address] Eosinophil pct 1.2 % [facility] Comment: Interpretive Data Percent cell count reference ranges are not reported, since discordance with absolute values may lead to misinterpretation of CBC data. Current Interpretive Data was last revised on 2017. Testing performed by: [address] [address] Basophil pct 0.5 % [facility] Comment: Interpretive Data Percent cell count reference ranges are not reported, since discordance with absolute values may lead to misinterpretation of CBC data. Current Interpretive Data was last revised on 2017. Testing performed by: [address] [address] Blood 09/30/2024 3:11 PM CDT 09/30/2024 3:19 PM CDT Ramy Aguilera MD LAB BLOOD ORDERABLES Final R esult [facility] [address] [facility] [place] [address] * (ABNORMAL) CBC with auto differential (09/30/2024 3:11 PM CDT) WBC 5.95 3.80 - 9.90 K/cumm Comment:Testing performed by : [address] [address] Hgb 10.6(L) 11.9 - 15.5 g/dL JOSE[facility]N Comment:Testing performed by : [address] [address] Hct 30.6(L) 35.6 - 45.5 % JOSELYN Comment:Testing performed by : [address] [address] Plt 150 150 - 400 K/cumm JOSELYN Comment:Testing performed by : [address] [address] MPV 9.0(L) 9.1 - 12.3 fL JO[facility]N Comment:Testing performed by : [address] [address] RBC 3.35(L) 3.90 - 5.20 M/cumm JOSE[facility]N Comment:Testing performed by : [address] [address] MCV 91.3 81.3 - 96.4 fL JO[facility]N Comment:Testing performed by : [address] [address] MCH 31.6 27.1 - 33.3 pg [facility]N Comment:Testing performed by : [address] [address] MCHC 34.6 32.3 - 35.7 g/dL [facility]N Comment:Testing performed by : [address] [address] RDW CV 14.7 11.1 - 14.9 % [facility] Comment:Testing performed by : [address] [address] RDW SD 49.1(H) 35.7 - 48.1 fL [facility] Comment:Testing performed by : [address] [address] NRBC abs 0.00 0.00 - 0.01 K/cumm JOSELYN VAZQUEZ Comment:Testing performed by : [address] [address] ANC Prelim 2.34 1.50 - 6.50 K/cumm JOSELYN Comment: Interpretive Data The rapid ANC is a preliminary automated count and may vary from the final ANC (Neut Abs) reported in the WBC differential that follows. Current interpretive data was last revised 2024. Testing performed by: [address] [address] Blood 09/30/2024 3:11 PM CDT 09/30/2024 3:19 PM CDT us Ramy Aguilera MD LAB BLOOD ORDERABLES Final R esult Performing Organization Address City/[facility]/ZIP Co de Phone Number [address] [place] [address] * (ABNORMAL) Lactate dehydrogenase (LD) (09/30/2024 3:11 PM CDT) Lactate dehydrogenase (LDH) 252(H) 100 - 250 Units/L Comment:Testing performed by : [address] [address] Blood 09/30/2024 3:11 PM CDT 09/30/2024 3:19 PM CDT us Ramy Aguilera MD LAB BLOOD ORDERABLES Final R esult Performing Organization Address City/[facility]/ZIP Co de Phone Number [address] [place] [address] * (ABNORMAL) Comprehensive metabolic panel (09/30/2024 3:11 PM CDT) Sodium 139 135 - 145 mmol/L Comment:Testing performed by : [address], [place]., [address] Potassium, pl 3.3 3.3 - 4.9 mmol/L JOSE[facility]N Comment:Testing performed by : [address], [place]., [address] Chloride 97 97 - 110 mmol/L JO[facility]N Comment:Testing performed by : [address], [place]., [address] CO2 29 22 - 32 mmol/L [facility] Comment:Testing performed by : [address], [place]., [address] Anion gap 13 2 - 15 mmol/L JO[facility]N Comment:Testing performed by : [address], [place]., [address] BUN 4(L) 6 - 25 mg/dL JOSELYN Comment:Testing performed by : [address], [place]., [address] Creatinine 0.60 0.60 - 1.10 mg/dL JO[facility]N Comment:Testing performed by : [address], [place]., [address] Glucose 97 70 - 199 mg/dL [facility] Comment: Interpretive Data Fasting glucose >/= 126 [...] was last revised 2022. Testing performed by: [address] [address] Calcium 9.4 8.5 - 10.3 mg/dL JOSELYN Comment:Testing performed by : [address], [place]., [address] Bilirubin, total 0.7 0.1 - 1.2 mg/dL JO[facility]N Comment:Testing performed by : [address] [address] Protein, pl 6.1(L) 6.5 - 8.5 g/dL [facility]N Comment:Testing performed by : [address] [address] Albumin 4.0 3.5 - 5.0 g/dL [facility]N Comment:Testing performed by : [address] [address] Alk phos 207(H) 40 - 130 Units/L JO[facility]N Comment:Testing performed by : [address] [address] ALT 13 7 - 45 Units/L JOSE[facility]N Comment:Testing performed by : [address] [address] AST 29 10 - 45 Units/L [facility]N Comment:Testing performed by : [address] [address] Blood 09/30/2024 3:11 PM CDT 09/30/2024 3:19 PM CDT us Ramy Aguilera MD LAB BLOOD ORDERABLES Final R esult [facility] [address] [facility] [place] [address] * US Guided Biopsy Lymph [...] in RPMI solution and submitted to the baseball player service for delivery to Surgical Pathology. No tract embolization was performed. The patient's skin was cleaned and dressed. The patient tolerated the entire procedure well without immediate complications. SARAHY Beal, was present from the beginning to the end of the procedure. SARAHY Beal performed the biopsy. Dr. Filiberto Rosales was present and participated in the procedure. Dr. Filiberto Rosales (vice president diversity) personally participated in sonographic imaging of this [...] in RPMI solution and submitted to the baseball player service for delivery to Surgical Pathology. No tract embolization was performed. The patient's skin was cleaned and dressed. The patient tolerated the entire procedure well without immediate complications. SARAHY Beal, was present from the beginning to the end of the procedure. SARAHY Beal performed the biopsy. Dr. Filiberto Rosales was present and participated in the procedure. Dr. Filiberto Rosales (vice president diversity) personally participated in sonographic imaging of this patient. IMPRESSION: 1. Successful ultrasound-guided core needle biopsy of left axillary lymph node. 2. Please see separate Surgical Pathology results for final interpretation. The radiology attending physician has personally reviewed this study, and had reviewed and/or edited this written report and agrees with it. Electronically signed by: SARAHY Beal Vinayak Olmstead MD [facility] US PROCEDURES Final R esult * Flow Leukemia/Lymphoma Lymph node (09/24/2024 1:28 PM CDT) Heath Stain Test Completed Leukemia/Lymp arianna Result See separate Surgical Pathology report. [facility] Lymph node 09/24/2024 1:28 PM CDT 09/24/2024 4:27 PM CDT us Jamarcus Spring MD LAB PATHOLOGY ORDERABLES Frances cony Result [facility] [place] [address] * Surgical pathology (09/24/2024 1:20 PM CDT) Tissue (Lymph node, needle biopsy) 09/24/2024 1:20 PM CDT Comment:Lymphoma Tissue specimen (specimen) (Lymph node, needle biopsy) 09/24/2024 1:28 PM CDT Comment:Lymphoma Narrative PATHOLOGY [facility] - 09/28/2024 6:22 PM CDT EPIC results best viewed via link to PDF [facility]ana [facility] [place] [address] Note to Patients: This report may contain [...] Gender: F : 1990 (Age: 34) Address: [address] [place] [address] [facility] #: [id number] Taken:09/24/2024 Received:09/24/2024 Reported: 09/28/2024 Patient Type: [facility] Inpatient Service: Bone[facility] Location: [facility] [address] Physician(s): AUDI aPge Diagnosis: A. Lymph node, left axilla, needle core biopsy: - Follicular lymphoma, grade 1-2 of 3 - See comment B. Lymph node, left axilla, for flow cytometry - [id number] kappa-restricted monoclonal B-cell population detected (79% of [...] BCL2, CD21, CD23, Ki67 Neoplastic lymphocytes are [id number] B-cells co-expressing CD10, BCL-6 (subset), BCL-2 and [...] or size. Antigens expressed: CD45, CD19, CD20, [place], CD10, CD38(heterogenous) Antigens not expressed: CD34, Lambda, [...] flow cytometry specimen was examined for internal manager of quality purposes. Flow cytometry was performed using antibodies to the following cellular antigens: CD45, CD34, CD19, CD20, [place], Lambda, CD10, CD5, CD200, CD38, CD2, CD3, [...] Surgical Pathology and Flow Cytometry Departments at [facility] as part of an ongoing manager of quality program and in compliance with federally mandated [...] Surgical Pathology and Flow Cytometry Departments of [facility]. It has not been cleared or approved by the U. S. Food and Drug Administration. IMAGES AND SCANNED DOCUMENTS, IF INCLUDED, ONLY VIEWABLE IN PDF VERSION OF REPORT Vinayak Olmstead MD LAB PATHOLOGY ORDERABLES Final Result PATHOLOGY [facility] 3rd Floor [place], [place] [phone] * TRANSTHORACIC ECHO (TTE) COMPLETE W DOPPLER/CF WO CONTRAST (09/24/2024 9:35 AM CDT) EF Mod BP 69 % CONS SCIMAGE Anatomical Region Laterality Modality Ultrasound 09/24/2024 7:44 AM CDT Narrative 09/24/2024 11:04 AM CDT [facility] [place] [address] Transthoracic Echocardiographic Report Patient Name: SOHA MARRERO R : 1990 (34y 7m) Gender: F Study Date: 09/24/2024 07:44:37 AM Ht(Inch): 63 Wt(Lb): 123.02 BSA: 1.57 Senior It Specialist: Rafy Ohara RDCS Location: [id number] Order Provider: HIPOLITO ARMSTRONG Heart Rate: 97 [...] Note De Nilam Bowie MD - 09/24/2024 [facility] [place] [address] Transthoracic Echocardiographic Report Patient Name: OSHA MARRERO R : 1990 (34y 7m) Gender: F Study Date: 09/24/2024 07:44:37 AM Ht(Inch): 63 Wt(Lb): 123.02 BSA: 1.57 Senior It Specialist: Rafy Ohara [facility] Location: [id number] Order Provider:HIPOLITO ARMSTRONG Heart Rate: 97 BMI: [...] [ 46.00 - 106.00 ] MV Decel Mdmi966.45 msec [ 104.00 - 258.00 ] LV [...] 1.71 - 5.00 ] RVSP30.00 mmHg RA Rkqeor15.92 ml RA Volume Index22.88 ml/m2 AoR Diam [...] MD LAB BLOOD ORDERABLES Frances l Result [facility] [place] [address] * (ABNORMAL) Manual Differential (09/24/2024 2:44 AM CDT) Differential Manual Cells Counted 120 [facility] Neutrophil abs 3.00 1.50 - 6.50 K/cumm [facility] Lymphocyte abs 2.42 0.80 - 3.30 K/cumm [facility] Monocyte abs 0.29 0.20 - 0.80 K/cumm [facility] Eosinophil abs 0.05 0.00 - 0.50 K/cumm [facility] Basophil abs 0.05 0.00 - 0.10 K/cumm [facility] Neutrophil pct 51.7 % [facility] Comment: Interpretive Data Percent cell count reference ranges are not reported, since discordance with absolute values may lead to misinterpretation of CBC data. Current Interpretive Data was last revised on 2017. Lymphocyte pct 40.0 % [facility] Comment: Interpretive Data Percent cell count reference ranges are not reported, since discordance with absolute values may lead to misinterpretation of CBC data. Current Interpretive Data was last revised on 2017. Monocyte pct 5.0 % [facility] Comment: Interpretive Data Percent cell count reference ranges are not reported, since discordance with absolute values may lead to misinterpretation of CBC data. Current Interpretive Data was last revised on 2017. Eosinophil pct 0.8 % [facility] Comment: Interpretive Data Percent cell count reference ranges are not reported, since discordance with absolute values may lead to misinterpretation of CBC data. Current Interpretive Data was last revised on 2017. Basophil pct 0.8 % [facility] Comment: Interpretive Data Percent cell count reference ranges are not reported, since discordance with absolute values may lead to misinterpretation of CBC data. Current Interpretive Data was last revised on 2017. Variant lymph pct 1.7(H) 0.0 - 0.0 % [facility] RBC morphology Present(A) [facility] Anisocytosis Slight(A) [facility] Macrocytes 3-7/HPF(A) [facility] Platelet estimate Decreased( A) [facility] Blood 09/24/2024 2:44 AM CDT 09/24/2024 2:57 AM CDT Vinayak Olmstead MD LAB BLOOD ORDERABLES Frances donnelly Result [facility] [place] [address] * (ABNORMAL) CBC without differential (09/24/2024 2:44 AM CDT) WBC 5.81 3.80 - 9.90 K/cumm Hgb 11.1(L) 11.9 - 15.5 g/dL [facility] Hct 32.1(L) 35.6 - 45.5 % [facility] Plt 117(L) 150 - 400 K/cumm [facility] MPV 9.3 9.1 - 12.3 fL [facility] RBC 3.46(L) 3.90 - 5.20 M/cumm [facility] MCV 92.8 81.3 - 96.4 fL [facility] MCH 32.1 27.1 - 33.3 pg [facility] MCHC 34.6 32.3 - 35.7 g/dL [facility] RDW CV 15.5(H) 11.1 - 14.9 % [facility] RDW SD 52.3(H) 35.7 - 48.1 fL [facility] NRBC abs 0.00 0.00 - 0.01 K/cumm [facility] Blood 09/24/2024 2:44 AM CDT 09/24/2024 2:57 AM CDT Vinayak Olmstead MD LAB BLOOD ORDERABLES Frances l Result [facility] [place] [address] * Phosphorus (09/24/2024 2:44 AM CDT) Pathologist [facility] Phosphorus, pl 2.8 2.3 - 4.5 mg/dL Blood 09/24/2024 2:44 AM CDT 09/24/2024 2:57 AM CDT Vinayak Olmstead MD LAB BLOOD ORDERABLES Frances l Result Performing Organization Address [facility] Co de Phone Number [facility] [place] [address] * Basic metabolic panel (09/24/2024 2:44 AM CDT) [facility] Sodium 138 135 - 145 mmol/L Potassium, pl 3.8 3.3 - 4.9 mmol/L [facility] Chloride 101 97 - 110 mmol/L [facility] CO2 27 22 - 32 mmol/L [facility] Anion gap 10 2 - 15 mmol/L [facility] BUN 6 6 - 25 mg/dL [facility] Creatinine 0.76 0.60 - 1.10 mg/dL [facility] Glucose 126 70 - 199 mg/dL [facility] Comment: Interpretive Data Fasting glucose >/= [...] 2022. Calcium 9.1 8.5 - 10.3 mg/dL [facility] Blood 09/24/2024 2:44 AM CDT 09/24/2024 2:57 AM CDT Narrative [facility] - 09/24/2024 3:27 AM CDT Daily except Friday and . Morning draw. Vinayak Olmstead MD LAB BLOOD ORDERABLES Frances l Result [facility] [place] [address] * US Chest (09/23/2024 10:33 AM CDT) Anatomical Region Laterality Modality Chest N/A Ultrasound 09/23/2024 10:3 6 AM CDT Impressions 09/23/2024 11:20 AM CDT Small hypoechoic area is present at the site of patient's prior drainage. This may reflect postsurgical change versus small area of cellulitis. No drainable fluid collection. Dictated by: Fabiano rGubbs MD The radiology attending physician has personally [...] 4 AM CDT 09/23/2024 12:24 AM CDT Vianyak Olmstead MD LAB URINE ORDERABLES Frances l Result [facility] [place] [address] * Blood culture Blood (09/22/2024 11:02 PM CDT) Report Final Report: No growth Blood 09/22/2024 11:0 2 PM CDT 09/22/2024 11:10 PM CDT Narrative [facility] - 09/27/2024 7:01 AM CDT Collection->Peripheral 1. [...] performance characteristics have been verified by the [facility] Microbiology Laboratory. For questions about this culture, contact the Microbiology Laboratory at [phone]. Interpretive data was last revised on 24. Vinayak Olmstead MD LAB MICROBIOLOGY - GENERA L ORDERABLES Final Result [facility] [place] [address] * Blood culture Blood (09/22/2024 11:02 PM CDT) Report Final Report: No growth Blood 09/22/2024 11:0 2 PM CDT 09/22/2024 11:12 PM CDT Narrative [facility] - 09/27/2024 7:00 AM CDT Collection->Peripheral 1. [...] performance characteristics have been verified by the [facility] Microbiology Laboratory. For questions about this culture, contact the Microbiology Laboratory at [phone]. Interpretive data was last revised on 24. us Vinayak Olmstead MD LAB MICROBIOLOGY - GENERA L ORDERABLES Final Result [facility] [place] [address] * Flow Leukemia/Lymphoma Blood (09/22/2024 9:52 PM CDT) Heath Stain Test Completed Leukemia/Lymp arianna Result See separate Surgical Pathology report. [facility] Blood 09/22/2024 9:52 PM CDT 09/22/2024 10:24 PM CDT us Ramy Aguilera MD LAB PATHOLOGY ORDERABLES Fin al Result Performing Organization Address [facility] Co de Phone Number [facility] [place] [address] * eGFR (09/22/2024 9:52 PM CDT) eGFR [...] MD LAB BLOOD ORDERABLES Frances donnelly Result [facility] [place] [address] * (ABNORMAL) Manual Differential (09/22/2024 9:52 PM CDT) Differential Manual Cells Counted 120 [facility] Neutrophil abs 3.17 1.50 - 6.50 K/cumm [facility] Lymphocyte abs 3.11 0.80 - 3.30 K/cumm [facility] Monocyte abs 0.28 0.20 - 0.80 K/cumm [facility] Eosinophil abs 0.05 0.00 - 0.50 K/cumm [facility] Basophil abs 0.05 0.00 - 0.10 K/cumm [facility] Neutrophil pct 47.5 % [facility] Comment: Interpretive Data Percent cell count reference ranges are not reported, since discordance with absolute values may lead to misinterpretation of CBC data. Current Interpretive Data was last revised on 2017. Lymphocyte pct 40.0 % [facility] Comment: Interpretive Data Percent cell count reference ranges are not reported, since discordance with absolute values may lead to misinterpretation of CBC data. Current Interpretive Data was last revised on 2017. Monocyte pct 4.2 % [facility] Comment: Interpretive Data Percent cell count reference ranges are not reported, since discordance with absolute values may lead to misinterpretation of CBC data. Current Interpretive Data was last revised on 2017. Eosinophil pct 0.8 % [facility] Comment: Interpretive Data Percent cell count reference ranges are not reported, since discordance with absolute values may lead to misinterpretation of CBC data. Current Interpretive Data was last revised on 2017. Basophil pct 0.8 % [facility] Comment: Interpretive Data Percent cell count reference ranges are not reported, since discordance with absolute values may lead to misinterpretation of CBC data. Current Interpretive Data was last revised on 2017. Variant lymph pct 6.7(H) 0.0 - 0.0 % [facility] RBC morphology Present(A) [facility] Anisocytosis Slight(A) [facility] Platelet estimate Decreased( A) [facility] Blood 09/22/2024 9:52 PM CDT 09/22/2024 10:03 PM CDT Vinayak Olmstead MD LAB BLOOD ORDERABLES Frances l Result Performing Organization Address [facility] de Phone Number [facility] [place] [address] * (ABNORMAL) aPTT (09/22/2024 9:52 PM CDT) [...] ORDERABLES Frances l Result Performing Organization Address [facility] de Phone Number [facility] [place] [address] * Protime-INR (09/22/2024 9:52 PM CDT) PT 12.1 9.7 - 13.0 sec INR 1.12 0.90 - 1.20 [facility] Comment: Interpretive data Oral anticoagulant therapeutic [...] City/[facility]/ZIP Co de Phone Number [facility] [place] [address] * Fibrinogen (09/22/2024 9:52 PM CDT) Pathologist [facility] Fibrinogen 212 170 - 400 mg/dL Blood 09/22/2024 9:52 PM CDT 09/22/2024 10:20 PM CDT Vinayak Olmstead MD LAB BLOOD ORDERABLES Frances donnelly Result Performing Organization Address [facility] de Phone Number [facility] [place] [address] * (ABNORMAL) CBC without differential (09/22/2024 9:52 PM CDT) [facility] WBC 6.67 3.80 - 9.90 K/cumm Hgb 11.7(L) 11.9 - 15.5 g/dL [facility] Hct 33.5(L) 35.6 - 45.5 % [facility] Plt 130(L) 150 - 400 K/cumm [facility] MPV 9.1 9.1 - 12.3 fL [facility] RBC 3.68(L) 3.90 - 5.20 M/cumm [facility] MCV 91.0 81.3 - 96.4 fL [facility] MCH 31.8 27.1 - 33.3 pg [facility] MCHC 34.9 32.3 - 35.7 g/dL [facility] RDW CV 15.6(H) 11.1 - 14.9 % [facility] RDW SD 50.4(H) 35.7 - 48.1 fL [facility] NRBC abs 0.00 0.00 - 0.01 K/cumm [facility] Blood 09/22/2024 9:52 PM CDT 09/22/2024 10:03 PM CDT Vinayak Olmstead MD LAB BLOOD ORDERABLES Frances l Result Performing Organization Address City/[facility]/ZIP Co de Phone Number [facility] [place] [address] * Type and screen (09/22/2024 9:52 PM CDT) Pathologist [facility] Dilma, indirect Negative ABO Rh A Positive [facility] Blood 09/22/2024 9:52 PM CDT 09/22/2024 10:43 PM CDT Narrative [facility] - 09/22/2024 11:34 PM CDT Has the patient had Daratumumab or Isatuximab in the past 6 months?->Unknown Vinayak Olmstead MD LAB BLOOD BANK TEST ORDER TANIA Final Result Performing Organization Address [facility] [place] [address] * hCG, blood, quantitative (09/22/2024 9:52 PM CDT) [facility] hCG, quant <5.0 0.0 - 5.0 [...] ORDERABLES Final R esult Performing Organization Address [facility] Co de Phone Number [facility] [place] [address] * Uric acid (09/22/2024 9:52 PM CDT) Pathologist [facility] Uric acid 3.4 2.5 - 7.0 mg/dL Blood 09/22/2024 9:52 PM CDT 09/22/2024 10:03 PM CDT Vinayak Olmstead MD LAB BLOOD ORDERABLES Frances l Result Performing Organization Address City/[facility]/ZIP Co de Phone Number [facility] [place] [address] * Phosphorus (09/22/2024 9:52 PM CDT) Pathologist [facility] Phosphorus, pl 2.6 2.3 - 4.5 mg/dL Blood 09/22/2024 9:52 PM CDT 09/22/2024 10:03 PM CDT Vinayak Olmstead MD LAB BLOOD ORDERABLES Frances l Result Performing Organization Address [facility] Co de Phone Number [facility] [place] [address] * Magnesium (09/22/2024 9:52 PM CDT) [facility] Magnesium 1.6 1.4 - 2.5 mg/dL Blood 09/22/2024 9:52 PM CDT 09/22/2024 10:03 PM CDT Vinayak Olmstead MD LAB BLOOD ORDERABLES Frances l Result Performing Organization Address City/[facility] Co de Phone Number [facility] [place] [address] * Lactate dehydrogenase (LD) (09/22/2024 9:52 PM CDT) Pathologist [facility] Lactate dehydrogenase (LDH) 212 100 - 250 Units/L Blood 09/22/2024 9:52 PM CDT 09/22/2024 10:03 PM CDT us Vinayak Olmstead MD LAB BLOOD ORDERABLES Frances donnelly Result [facility] [place] [address] * (ABNORMAL) Comprehensive metabolic panel (09/22/2024 9:52 PM CDT) Pathologist [facility] Sodium 139 135 - 145 mmol/L Potassium, pl 3.5 3.3 - 4.9 mmol/L [facility] Chloride 102 97 - 110 mmol/L [facility] CO2 27 22 - 32 mmol/L [facility] Anion gap 10 2 - 15 mmol/L [facility] BUN 3(L) 6 - 25 mg/dL [facility] Creatinine 0.64 0.60 - 1.10 mg/dL [facility] Glucose 113 70 - 199 mg/dL [facility] Comment: Interpretive Data Fasting glucose >/= [...] Calcium 8.9 8.5 - 10.3 mg/dL [facility] Bilirubin, total 1.1 0.1 - 1.2 mg/dL [facility] Protein, pl 6.6 6.5 - 8.5 g/dL [facility] Albumin 4.1 3.5 - 5.0 g/dL [facility] Alk phos 184(H) 40 - 130 Units/L [facility] ALT 15 7 - 45 Units/L [facility] AST 23 10 - 45 Units/L [facility] Blood 09/22/2024 9:52 PM CDT 09/22/2024 10:03 PM CDT Vinayak Olmstead MD LAB BLOOD ORDERABLES Frances donnelly Result [facility] [place] [address] * Surgical pathology (09/22/2024 9:46 PM CDT) Peripheral Blood For Pathologist Review 09/22/2024 9:46 PM CDT 09/23/2024 3:14 PM CDT Narrative 09/24/2024 8:32 PM CDT EPIC results best viewed via link to PDF [facility] [place] [address] Note to Patients: This report may contain [...] Gender: F : 1990 (Age: 34) Address: [address] [place] [address] [facility] #: [id number] Taken:09/22/2024 Received:09/23/2024 Reported: 09/24/2024 Patient Type: [facility] Inpatient Service: [facility] Location: [place] [id number] Physician(s): Ramy Aguilera M.D. Diagnosis: Peripheral blood for flow cytometry: - [id number] kappa-restricted monoclonal B cell population detected (25% [...] flow cytometry specimen was examined for internal manager of quality purposes. Flow cytometry was performed using antibodies to the following cellular antigens: CD45, CD34, CD19, CD20, [place], Lambda, CD10, CD5, CD200, CD38, CD2, CD3, [...] Surgical Pathology and Flow Cytometry Departments at [facility] as part of an ongoing manager of quality program and in compliance with federally mandated [...] Surgical Pathology and Flow Cytometry Departments of [facility]. It has not been cleared or approved by the U. S. Food and Drug Administration. IMAGES AND SCANNED DOCUMENTS, IF INCLUDED, ONLY VIEWABLE IN PDF VERSION OF REPORT Ramy Aguilera MD LAB PATHOLOGY ORDERABLES Fin al Result * ECG 12 lead (09/22/2024 5:13 PM CDT) Ventricular Rate EKG/Min 109 BPM [facility] Atrial Rate 109 BPM [facility] LA-Interval (MSEC) 122 ms [facility] QRS-Interval (MSEC) 90 ms [facility] QT-Interval (MSEC) 354 ms [facility] QTc 476 ms [facility] P Adrian 61 degrees [facility] R Adrian 59 degrees [facility] T Adrian 9 degrees [facility] Diagnosis Sinus tachycardia Otherwise normal ECG When compared with ECG of 13-SEP-2024 15:43, No significant change was found Confirmed by Tani Yang MD ([id number]) on 09/27/2024 8:23:27 AM [facility] 09/22/2024 5:13 PM CDT 09/27/2024 8:23 AM CDT us Vinayak Olmstead MD ECG ORDERABLES Final Res ult [facility] * PET/CT FDG Skull to Thigh [...] FDG-PET/CT IMAGING DATE OF STUDY: 09/22/2024 SCANNER: [facility] [employer] (NV1). This is a high-resolution scanner, which [...] obtained. The study was interpreted on the [employer] workstation. The mean liver SUV (reported for manager of quality purposes) is 1.8. The total scanned area [...] FDG-PET/CT IMAGING DATE OF STUDY: 09/22/2024 SCANNER: [facility] [employer] (NV1). This is a high-resolution scanner, which [...] obtained. The study was interpreted on the [employer] workstation. The mean liver SUV (reported for manager of quality purposes) is 1.8. The total scanned area [...] Barbiturates, ur Not Detected CutOff 200ng/mL [facility] Comment: Interpretive Data - Barbiturates: Samples [...] Ur Not Detected CutOff 5 ng/mL [facility] Comment: Interpretive Data - Fentanyl: Samples containing greater than 5 ng/mL norfentanyl, fentanyl, or other cross-reacting fentanyl compounds are reported as positive. False positive and false negative results are possible. Confirmatory testing required for definitive results. Current Interpretive Data was last reviewed 2023. Methadone, ur Not Detected CutOff 300ng/mL [facility] Comment: Interpretive Data - Methadone: Samples containing greater than 300 ng/mL d,l-methadone or other cross-reacting compounds are reported as positive. False positive and false negative results are possible. Confirmatory testing required for definitive results. Current Interpretive Data was last reviewed 2022. Opiates, ur Not Detected CutOff 300ng/mL [facility] Comment: Interpretive Data - Opiates: Samples containing greater than 300 ng/mL morphine or other cross-reacting compounds are reported as positive. False positive and false negative results are possible. Confirmatory testing required for definitive results. Current Interpretive Data was last reviewed 2022. Oxycodone, ur Not Detected CutOff 100ng/mL [facility] Comment: Interpretive Data - Oxycodone: Samples containing greater than 100 ng/mL oxycodone or other cross-reacting compounds are reported as positive. False positive and false negative results are possible. Confirmatory testing required for definitive results. Current Interpretive Data was last reviewed 2022. Phencyclidine, ur Not Detected CutOff 25 ng/mL [facility] Comment: Interpretive Data - Phencyclidine: Samples containing greater than 25 ng/mL phencyclidine or other cross-reacting compounds are reported as positive. False positive and false negative results are possible. Confirmatory testing required for definitive results. Current Interpretive Data was last reviewed 2022. Urine Creatinine 52 mg/dL [facility] Comment: Interpretive Data Urine Creatinine: < 10 mg/dL is extremely dilute = or > 10 but < 20 mg/dL is dilute = or > 20 mg/dL is normal Current Interpretive Data was last revised on 2017. Urine 09/22/2024 1:54 AM CDT 09/22/2024 1:54 AM CDT Narrative [facility] - 09/22/2024 2:43 AM CDT Drug of Abuse screening is performed by immunoassay for medical purposes only. This is not to be used for Pain Management purposes. If Detected, confirmation testing will be performed for Amphetamines, Cocaine, Fentanyl, Methadone, Opiates, Oxycodone or Phencyclidine. us Ramy Aguilera MD LAB URINE ORDERABLES Final R esult [facility] [place] [address] * (ABNORMAL) Urinalysis reflex to microscopic and culture Urine (09/22/2024 1:54 AM CDT) Color, ur Straw Yellow Clarity, ur Clear Clear [facility] Specific gravity, ur 1.007 1.003 - 1.030 [facility] pH, urine 7.0 [facility] Comment: Interpretive Data U rine pH is affected by diet, medications, systemic acid-base disturbances, and renal tubular function. pH may affect urinary stone formation. For example, urine pH below 6.0 may help reduce the tendency for calcium phosphate stones and pH greater than 6.0 may reduce the tendency for uric acid stone formation. Source: [facility] Current Interpretive Data was last revised on 2017 Protein, ur ql Negative Negative [facility] Glucose, ur ql Negative Negative [facility] Ketones, ur Negative Negative [facility] Bilirubin, ur Negative Negative [facility] Blood, ur Negative Negative [facility] Urobilinogen, ur <2.0 <2.0 mg/dL [facility] Nitrite, ur Positive(A) Negative [facility] Leukocyte esterase, ur Trace(A) Negative [facility] UA reflex comment Reflex to microscopic UA will be performed. [facility] Urine 09/22/2024 1:54 AM CDT 09/22/2024 2:00 AM CDT Terence Rader MD LAB MICROBIOLOGY - GENERAL ORD ERABLES Final Result Performing Organization Address City/[facility]/ZIP Co de Phone Number [facility] [place] [address] * (ABNORMAL) Urinalysis, microscopic only (09/22/2024 1:54 AM CDT) WBC, ur 6-10(A) 0 - 5 /HPF RBC, ur 0-2 0 - 2 /HPF [facility] Epithelial cells, squamous, ur 1-5 0 - 5 /HPF [facility] Bacteria, ur Trace(A) [facility] Culture Reflex Comment Reflex conditions for urine culture (WBC >10) not met. [facility] Urine 09/22/2024 1:54 AM CDT 09/22/2024 2:00 AM CDT Terence Rader MD LAB URINE ORDERABLES Final Res ult Performing Organization Address [facility] Co de Phone Number [facility] [place] [address] * eGFR (09/22/2024 12:34 AM CDT) eGFR [...] MD LAB BLOOD ORDERABLES Final R esult [facility] [place] [address] * Differential, auto (09/22/2024 12:34 AM CDT) Neutrophil abs 2.39 1.50 - 6.50 K/cumm Imm gran abs 0.02 0.00 - 0.10 K/cumm [facility] Lymphocyte abs 2.34 0.80 - 3.30 K/cumm [facility] Monocyte abs 0.29 0.20 - 0.80 K/cumm [facility] Eosinophil abs 0.05 0.00 - 0.50 K/cumm [facility] Basophil abs 0.03 0.00 - 0.10 K/cumm [facility] Neutrophil pct 46.6 % [facility] Comment: Interpretive Data Percent cell count reference ranges are not reported, since discordance with absolute values may lead to misinterpretation of CBC data. Current Interpretive Data was last revised on 2017. Imm gran pct 0.4 % [facility] Comment: Interpretive Data Percent cell count reference ranges are not reported, since discordance with absolute values may lead to misinterpretation of CBC data. Current Interpretive Data was last revised on 2017. Lymphocyte pct 45.7 % [facility] Comment: Interpretive Data Percent cell count reference ranges are not reported, since discordance with absolute values may lead to misinterpretation of CBC data. Current Interpretive Data was last revised on 2017. Monocyte pct 5.7 % [facility] Comment: Interpretive Data Percent cell count reference ranges are not reported, since discordance with absolute values may lead to misinterpretation of CBC data. Current Interpretive Data was last revised on 2017. Eosinophil pct 1.0 % [facility] Comment: Interpretive Data Percent cell count reference ranges are not reported, since discordance with absolute values may lead to misinterpretation of CBC data. Current Interpretive Data was last revised on 2017. Basophil pct 0.6 % [facility] Comment: Interpretive Data Percent cell count reference ranges are not reported, since discordance with absolute values may lead to misinterpretation of CBC data. Current Interpretive Data was last revised on 2017. Blood 09/22/2024 12:3 4 AM CDT 09/22/2024 1:14 AM CDT us Terence Rader MD LAB BLOOD ORDERABLES Final Res ult [facility] [place] [address] * (ABNORMAL) CBC with auto differential (09/22/2024 12:34 AM CDT) WBC 5.12 3.80 - 9.90 K/cumm Hgb 11.6(L) 11.9 - 15.5 g/dL [facility] Hct 32.5(L) 35.6 - 45.5 % [facility] Plt 144(L) 150 - 400 K/cumm [facility] MPV 9.1 9.1 - 12.3 fL [facility] RBC 3.58(L) 3.90 - 5.20 M/cumm [facility] MCV 90.8 81.3 - 96.4 fL [facility] MCH 32.4 27.1 - 33.3 pg [facility] MCHC 35.7 32.3 - 35.7 g/dL [facility] RDW CV 15.5(H) 11.1 - 14.9 % [facility] RDW SD 49.6(H) 35.7 - 48.1 fL [facility] NRBC abs 0.00 0.00 - 0.01 K/cumm [facility] Blood 09/22/2024 12:3 4 AM CDT 09/22/2024 1:14 AM CDT Terence Rader MD LAB BLOOD ORDERABLES Final Res ult Performing Organization Address [facility] Co de Phone Number [facility] [place] [address] * Uric acid (09/22/2024 12:34 AM CDT) Uric acid 3.1 2.5 - 7.0 mg/dL Blood 09/22/2024 12:3 4 AM CDT 09/22/2024 1:17 AM CDT Terence Rader MD LAB BLOOD ORDERABLES Final Res ult Performing Organization Address [facility] de Phone Number [facility] [place] [address] * Phosphorus (09/22/2024 12:34 AM CDT) Phosphorus, pl 3.0 2.3 - 4.5 mg/dL Blood 09/22/2024 12:3 4 AM CDT 09/22/2024 1:17 AM CDT Terence Rader MD LAB BLOOD ORDERABLES Final Res ult Performing Organization Address [facility] de Phone Number [facility] [place] [address] * (ABNORMAL) Magnesium (09/22/2024 12:34 AM CDT) Magnesium 1.3(L) 1.4 - 2.5 mg/dL Blood 09/22/2024 12:3 4 AM CDT 09/22/2024 1:17 AM CDT Ramy Aguilera MD LAB BLOOD ORDERABLES Final R esult Performing Organization Address City/[facility]/ZIP Co de Phone Number [facility] [place] [address] * Lactate dehydrogenase (LD) (09/22/2024 12:34 AM CDT) Pathologist [facility] Lactate dehydrogenase (LDH) 245 100 - 250 Units/L Blood 09/22/2024 12:3 4 AM CDT 09/22/2024 1:17 AM CDT Ramy Aguilera MD LAB BLOOD ORDERABLES Final R esult Performing Organization Address [facility] Co de Phone Number [facility] C[facility] [place] [address] * (ABNORMAL) Comprehensive metabolic panel (09/22/2024 12:34 AM CDT) [facility] Sodium 139 135 - 145 mmol/L Potassium, pl 2.9(L) 3.3 - 4.9 mmol/L [facility] Chloride 100 97 - 110 mmol/L [facility] CO2 26 22 - 32 mmol/L [facility] Anion gap 13 2 - 15 mmol/L [facility] BUN 3(L) 6 - 25 mg/dL [facility] Creatinine 0.66 0.60 - 1.10 mg/dL [facility] Glucose 90 70 - 199 mg/dL [facility] Comment: Interpretive Data Fasting glucose >/= [...] 2022. Calcium 8.9 8.5 - 10.3 mg/dL [facility] Bilirubin, total 0.9 0.1 - 1.2 mg/dL [facility] Protein, pl 6.7 6.5 - 8.5 g/dL [facility] Albumin 3.9 3.5 - 5.0 g/dL [facility] Alk phos 186(H) 40 - 130 Units/L [facility] ALT 16 7 - 45 Units/L [facility] AST 30 10 - 45 Units/L [facility] Blood 09/22/2024 12:3 4 AM CDT 09/22/2024 1:17 AM CDT us Ramy Aguilera MD LAB BLOOD ORDERABLES Final R esult [facility] [place] [address] * POCT Rapid HIV Antibody Community Screening-Deann Eligible (09/21/2024 9:55 PM CDT) [facility] Rapid HIV, POC Negative Negative Lot Number [id number] QC Control Line Acceptable Blood 09/21/2024 9:55 PM CDT us Lety Palafox MD POINT OF CARE TEST OR DERABLES Final Result * Blastomyces antibody, EIA, serum Blood (09/17/2024 5:49 PM CDT) [facility] Blastomyces Antibody Negative Negative [facility] Comment: A single negative result does not exclude the diagnosis of blastomycosis. Repeat testing on a new sample in 7-14 days if clinically indicated. Test Performed by: [place] [id number] [place] [id number] Moisture Conditioner Operator: Trice Obrien Ph.D.; CLIA# [id number] Blood 09/17/2024 5:49 PM CDT 09/17/2024 7:15 PM CDT us Jovanny Goss MD LAB MICROBIOLOGY - GENERAL ORDER TANIA Final Result [facility] [place] [address] [facility] * Check Sample (09/17/2024 5:49 PM CDT) ABO Rh A Positive [facility] HCLL OTHER 09/17/2024 5:49 PM CDT 09/17/2024 5:59 PM CDT us Ramy Aguliera MD LAB BLOOD ORDERABLES [place] [address] [facility] * eGFR (09/17/2024 4:51 PM CDT) eGFR [...] MD LAB BLOOD ORDERABLES Final Resul t [facility] [address] * (ABNORMAL) Differential, auto (09/17/2024 4:51 PM CDT) Neutrophil abs 2.39 1.50 - 6.50 K/cumm Imm gran abs 0.02 0.00 - 0.10 K/cumm [facility] Lymphocyte abs 3.57(H) 0.80 - 3.30 K/cumm [facility] Monocyte abs 0.33 0.20 - 0.80 K/cumm [facility] Eosinophil abs 0.07 0.00 - 0.50 K/cumm [facility] Basophil abs 0.04 0.00 - 0.10 K/cumm [facility] Neutrophil pct 37.3 % [facility] Comment: Interpretive Data Percent cell count reference ranges are not reported, since discordance with absolute values may lead to misinterpretation of CBC data. Current Interpretive Data was last revised on 2017. Imm gran pct 0.3 % [facility] Comment: Interpretive Data Percent cell count reference ranges are not reported, since discordance with absolute values may lead to misinterpretation of CBC data. Current Interpretive Data was last revised on 2017. Lymphocyte pct 55.6 % [facility] Comment: Interpretive Data Percent cell count reference ranges are not reported, since discordance with absolute values may lead to misinterpretation of CBC data. Current Interpretive Data was last revised on 2017. Monocyte pct 5.1 % [facility] Comment: Interpretive Data Percent cell count reference ranges are not reported, since discordance with absolute values may lead to misinterpretation of CBC data. Current Interpretive Data was last revised on 2017. Eosinophil pct 1.1 % [facility] Comment: Interpretive Data Percent cell count reference ranges are not reported, since discordance with absolute values may lead to misinterpretation of CBC data. Current Interpretive Data was last revised on 2017. Basophil pct 0.6 % [facility] Comment: Interpretive Data Percent cell count reference ranges are not reported, since discordance with absolute values may lead to misinterpretation of CBC data. Current Interpretive Data was last revised on 2017. Blood 09/17/2024 4:51 PM CDT 09/17/2024 5:03 PM CDT Jovanny Goss MD LAB BLOOD ORDERABLES Final Resul t Performing Organization Address [facility]/ZIP Co de Phone Number [facility] [place] [address] * (ABNORMAL) CBC with auto differential (09/17/2024 4:51 PM CDT) WBC 6.42 3.80 - 9.90 K/cumm Hgb 11.5(L) 11.9 - 15.5 g/dL [facility] Hct 33.1(L) 35.6 - 45.5 % [facility] Plt 172 150 - 400 K/cumm [facility] MPV 9.1 9.1 - 12.3 fL [facility] RBC 3.63(L) 3.90 - 5.20 M/cumm [facility] MCV 91.2 81.3 - 96.4 fL [facility] MCH 31.7 27.1 - 33.3 pg [facility] MCHC 34.7 32.3 - 35.7 g/dL [facility] RDW CV 15.1(H) 11.1 - 14.9 % [facility] RDW SD 50.4(H) 35.7 - 48.1 fL [facility] NRBC abs 0.00 0.00 - 0.01 K/cumm [facility] Blood 09/17/2024 4:51 PM CDT 09/17/2024 5:03 PM CDT us Jovanny Goss MD LAB BLOOD ORDERABLES Final Resul t [facility] [place] [address] * Type and screen (09/17/2024 4:51 PM CDT) Dilma, indirect Negative ABO Rh A Positive [facility] Blood 09/17/2024 4:51 PM CDT 09/17/2024 5:02 PM CDT Narrative [facility] - 09/17/2024 5:54 PM CDT Has the patient had Daratumumab or Isatuximab in the past 6 months?->Unknown us Jovanny Goss MD LAB BLOOD BANK TEST ORDERABLES F inal Result Performing Organization Address [facility] Co de Phone Number [facility] [place] [address] * (ABNORMAL) Phosphorus (09/17/2024 4:51 PM CDT) Pathologist [facility] Phosphorus, pl 2.2(L) 2.3 - 4.5 mg/dL Blood 09/17/2024 4:51 PM CDT 09/17/2024 5:02 PM CDT us Jovanny Goss MD LAB BLOOD ORDERABLES Final Resul t Performing Organization Address [facility] de Phone Number [facility] [place] [address] * Magnesium (09/17/2024 4:51 PM CDT) [facility] Magnesium 1.7 1.4 - 2.5 mg/dL Blood 09/17/2024 4:51 PM CDT 09/17/2024 5:02 PM CDT us Jovanny Goss MD LAB BLOOD ORDERABLES Final Resul t Performing Organization Address [facility] [place] [address] * (ABNORMAL) Comprehensive metabolic panel (09/17/2024 4:51 PM CDT) [facility] Sodium 143 135 - 145 mmol/L Potassium, pl 3.0(L) 3.3 - 4.9 mmol/L [facility] Chloride 102 97 - 110 mmol/L [facility] CO2 31 22 - 32 mmol/L [facility] Anion gap 10 2 - 15 mmol/L [facility] BUN 3(L) 6 - 25 mg/dL [facility] Creatinine 0.63 0.60 - 1.10 mg/dL [facility] Glucose 88 70 - 199 mg/dL [facility] Comment: Interpretive Data Fasting glucose >/= [...] 2022. Calcium 8.4(L) 8.5 - 10.3 mg/dL [facility] Bilirubin, total 0.4 0.1 - 1.2 mg/dL [facility] Protein, pl 6.1(L) 6.5 - 8.5 g/dL [facility] Albumin 3.7 3.5 - 5.0 g/dL [facility] Alk phos 165(H) 40 - 130 Units/L [facility] ALT 9 7 - 45 Units/L [facility] AST 20 10 - 45 Units/L [facility] Blood 09/17/2024 4:51 PM CDT 09/17/2024 5:02 PM CDT us Jovanny Goss MD LAB BLOOD ORDERABLES Final Resul t [facility] [place] [address] * eGFR (09/16/2024 10:20 AM CDT) eGFR [...] was last reviewed 2021. Testing performed by: [address] [address] Blood 09/16/2024 10:2 0 AM CDT 09/16/2024 10:23 AM CDT us Ramy Aguilera MD LAB BLOOD ORDERABLES Final R esult [facility] [address] [facility] [place] [address] * Differential, auto (09/16/2024 10:20 AM CDT) Neutrophil abs 3.45 1.50 - 6.50 K/cumm Comment:Testing performed by : [address] [address] Imm gran abs 0.02 0.00 - 0.10 K/cumm [facility] Comment:Testing performed by : [address] [address] Lymphocyte abs 2.81 0.80 - 3.30 K/cumm [facility] Comment:Testing performed by : [address] [address] Monocyte abs 0.37 0.20 - 0.80 K/cumm [facility] Comment:Testing performed by : [address] [address] Eosinophil abs 0.08 0.00 - 0.50 K/cumm [facility] Comment:Testing performed by : [address] [address] Basophil abs 0.04 0.00 - 0.10 K/cumm [facility] Comment:Testing performed by : [address] [address] Neutrophil pct 50.9 % [facility] Comment: Interpretive Data Percent cell count reference ranges are not reported, since discordance with absolute values may lead to misinterpretation of CBC data. Current Interpretive Data was last revised on 2017. Testing performed by: [address] [address] Imm gran pct 0.3 % [facility] Comment: Interpretive Data Percent cell count reference ranges are not reported, since discordance with absolute values may lead to misinterpretation of CBC data. Current Interpretive Data was last revised on 2017. Testing performed by: [address] [address] Lymphocyte pct 41.5 % [facility] Comment: Interpretive Data Percent cell count reference ranges are not reported, since discordance with absolute values may lead to misinterpretation of CBC data. Current Interpretive Data was last revised on 2017. Testing performed by: [address] [address] Monocyte pct 5.5 % [facility] Comment: Interpretive Data Percent cell count reference ranges are not reported, since discordance with absolute values may lead to misinterpretation of CBC data. Current Interpretive Data was last revised on 2017. Testing performed by: [address] [address] Eosinophil pct 1.2 % [facility] Comment: Interpretive Data Percent cell count reference ranges are not reported, since discordance with absolute values may lead to misinterpretation of CBC data. Current Interpretive Data was last revised on 2017. Testing performed by: [address] [address] Basophil pct 0.6 % [facility] Comment: Interpretive Data Percent cell count reference ranges are not reported, since discordance with absolute values may lead to misinterpretation of CBC data. Current Interpretive Data was last revised on 2017. Testing performed by: [address] [address] Blood 09/16/2024 10:2 0 AM CDT 09/16/2024 10:23 AM CDT us Ramy Aguilera MD LAB BLOOD ORDERABLES Final R esult [facility] [address] [facility] [place] [address] * (ABNORMAL) CBC with auto differential (09/16/2024 10:20 AM CDT) WBC 6.77 3.80 - 9.90 K/cumm Comment:Testing performed by : [address] [address] Hgb 12.2 11.9 - 15.5 g/dL [facility] Comment:Testing performed by : [address] [address] Hct 35.4(L) 35.6 - 45.5 % [facility] Comment:Testing performed by : [address] [address] Plt 171 150 - 400 K/cumm [facility] Comment:Testing performed by : [address] [address] MPV 9.0(L) 9.1 - 12.3 fL [facility] Comment:Testing performed by : [address] [address] RBC 3.90 3.90 - 5.20 M/cumm [facility] Comment:Testing performed by : [address] [address] MCV 90.8 81.3 - 96.4 fL [facility] Comment:Testing performed by : [address] [address] MCH 31.3 27.1 - 33.3 pg [facility] Comment:Testing performed by : [address] [address] MCHC 34.5 32.3 - 35.7 g/dL [facility] Comment:Testing performed by : [address] [address] RDW CV 15.3(H) 11.1 - 14.9 % [facility] Comment:Testing performed by : [address] [address] RDW SD 49.8(H) 35.7 - 48.1 fL [facility] Comment:Testing performed by : [address] [address] NRBC abs 0.00 0.00 - 0.01 K/cumm [facility] Comment:Testing performed by : [address] [address] ANC Prelim 3.45 1.50 - 6.50 K/cumm [facility] Comment: Interpretive Data The rapid ANC is a preliminary automated count and may vary from the final ANC (Neut Abs) reported in the WBC differential that follows. Current interpretive data was last revised 2024. Testing performed by: [address] [address] Blood 09/16/2024 10:2 0 AM CDT 09/16/2024 10:23 AM CDT us Ramy Aguilera MD LAB BLOOD ORDERABLES Final R esult Performing Organization Address [facility]/State/ZIP Co de Phone Number [facility] [address] [facility] Department of Laboratories [place], [place] [id number] * Lactate dehydrogenase (LD) (09/16/2024 10:20 AM CDT) Lactate dehydrogenase (LDH) 186 100 - 250 Units/L Comment:Testing performed by : [address] [address] Blood 09/16/2024 10:2 0 AM CDT 09/16/2024 10:23 AM CDT Ramy Aguilera MD LAB BLOOD ORDERABLES Final R esult [facility] [address] [facility] [place] [address] * (ABNORMAL) Comprehensive metabolic panel (09/16/2024 10:20 AM CDT) Sodium 143 135 - 145 mmol/L Comment:Testing performed by : [address] [address] Potassium, pl 3.4 3.3 - 4.9 mmol/L [facility] Comment:Testing performed by : [address] [address] Chloride 101 97 - 110 mmol/L [facility] Comment:Testing performed by : [address] [address] CO2 30 22 - 32 mmol/L [facility] Comment:Testing performed by : [address] [address] Anion gap 12 2 - 15 mmol/L [facility] Comment:Testing performed by : [address] [address] BUN 4(L) 6 - 25 mg/dL [facility] Comment:Testing performed by : [address] [address] Creatinine 0.60 0.60 - 1.10 mg/dL [facility] Comment:Testing performed by : [address] [address] Glucose 101 70 - 199 mg/dL [facility] [...] was last revised 2022. Testing performed by: [address] [address] Calcium 8.8 8.5 - 10.3 mg/dL [facility] Comment:Testing performed by : [facility], [address] [place] [address]., [address] Bilirubin, total 0.6 0.1 - 1.2 mg/dL [facility] Comment:Testing performed by : [address] [address] Protein, pl 6.1(L) 6.5 - 8.5 g/dL [facility] Comment:Testing performed by : [address] [address] Albumin 4.2 3.5 - 5.0 g/dL [facility] Comment:Testing performed by : [address] [address] Alk phos 173(H) 40 - 130 Units/L [facility] Comment:Testing performed by : [address] [address] ALT 7 7 - 45 Units/L [facility] Comment:Testing performed by : [address] [address] AST 19 10 - 45 Units/L [facility] Comment:Testing performed by : [address] [address] Blood 09/16/2024 10:2 0 AM CDT 09/16/2024 10:23 AM CDT us Ramy Aguilera MD LAB BLOOD ORDERABLES Final R esult [facility] [address] [facility] [place] [address] * Surgical pathology (09/15/2024 9:55 AM CDT) Tissue (Miscellaneous) 09/15/2024 9:55 AM CDT 09/15/2024 9:55 AM CDT Narrative [facility] PATHOLOGY LAB - 09/29/2024 8:48 PM CDT EPIC results best viewed via link to PDF [facility] Pathology Consult Service [address], [place] [address] Note to Patients: This report may contain [...] SURGICAL PATHOLOGY REPORT * Consult Report * [facility] is providing an additional review of previously collected tissue. FINAL Patient Name: SOHA MARRERO Address: [address] [place] [address] Gender: F : 1990 (Age: 34) Hospital #: [id number] Patient Type: [facility] Location: UNKNOWN Taken: 09/15/2024 Received: 09/15/2024 Accessioned: 09/16/2024 Reported: 09/29/2024 Physician(s): Ramy Aguilera M.D. [facility] Department of Pathology [address] [place] [id number] P: [phone] F: [phone] Diagnosis: Consult material received from [facility], [place], [place] (OSC: [id number]; 12/18/2022). Lymph node, axillary, core biopsy: - [...] cells is identified. Stains were performed at [facility] on the provided outside block: Neoplastic lymphocytes are [id number] B-cells co-expressing CD10, BCL-6 and BCL-2. Immunostain for CD21 highlights follicular dendritic meshwork. Immunostain for CD3 highlights T- cells. Proliferation rate, as assessed by immunostain for Ki-67, is approximately 20%. CyclinD1 is negative. PAX5 is positive. Flow cytometry (performed outside) [place] [facility] restricted CD10 positive B-cell population detected (99% of overall events). History: The patient is a 34-year-old woman with outside history of follicular lymphoma. Materials Received: Received for review are two slides labeled [id number], accompanied by a corresponding pathology report. The material originates from [place], [place]. Selected slide(s) may be digitally scanned for our files, and all materials are returned to the referring institution, along with a copy of our final report. Any testing required for diagnostic purposes was performed in the Department of Pathology and Immunology at [facility], [address] [place] [id number] CLIA # [id number] The performance characteristics of the testing cited in this report (if any) were determined by the [facility] Department of Pathology and Immunology [facility], as part of an ongoing manager of quality program and in compliance with federally mandated [...] and the performance characteristics determined by the [facility], [facility] Department of Pathology and Immunology. It has not been cleared or approved by the U.S. Food and Drug Administration. Any test designated as LDT was developed and its performance characteristics determined by [facility]. It has not been cleared or approved by the FDA. This test is used for clinical purposes and should not be regarded as investigational or for research. Report images and/or scanned reports, if included, only viewable in PDF version of report. us Ramy Aguilera MD LAB PATHOLOGY ORDERABLES Fin al Result [facility] PATHOLOGY LAB [address] [place] [address] * CT Body Outside Reference (09/15/2024 9:49 AM CDT) Impressions [facility] - 09/15/2024 9:49 AM CDT These images are for Reference purposes only and have not been reviewed by [facility] Radiology. There will be no report generated by a [facility] Radiologist. Narrative [facility] - 09/15/2024 9:49 AM CDT EXAMINATION: Images For Reference Purposes Only us Ramy Aguilera MD IMG CT PROCEDURES Final Resu lt Performing Organization Address [facility] Co de Phone Number [facility] * CT Body Outside Reference (09/15/2024 9:48 AM CDT) Impressions [facility] - 09/15/2024 9:48 AM CDT These images are for Reference purposes only and have not been reviewed by [facility] Radiology. There will be no report generated by a [facility] Radiologist. Narrative [facility] - 09/15/2024 9:48 [...] have not been reviewed by [facility] Radiology. There will be no report generated by a [facility] Radiologist. Narrative [facility] - 09/15/2024 9:47 AM CDT EXAMINATION: Images For Reference Purposes Only us Ramy Aguilera MD IMG CT PROCEDURES Final Resu lt Performing Organization Address [facility] de Phone Number [facility] * CT Body Outside Reference (09/15/2024 9:47 AM CDT) Impressions [facility] - 09/15/2024 9:47 AM CDT These images are for Reference purposes only and have not been reviewed by [facility] Radiology. There will be no report generated by a [facility] Radiologist. Narrative [facility] - 09/15/2024 9:47 AM CDT EXAMINATION: Images For Reference Purposes Only us Ramy Aguilera MD IMG CT PROCEDURES Final Resu lt Performing Organization Address [facility] de Phone Number [facility] * PET Outside Reference (09/15/2024 9:46 AM CDT) Impressions [facility] - 09/15/2024 9:46 AM CDT These images are for Reference purposes only and have not been reviewed by [facility] Radiology. There will be no report generated by a [facility] Radiologist. Narrative [facility] - 09/15/2024 9:46 AM CDT EXAMINATION: Images For Reference Purposes Only us Ramy Aguilera MD IMG PET PROCEDURES Final Res ult Performing Organization Address [facility] de Phone Number [facility] * CT Body Outside Reference (09/15/2024 9:45 AM CDT) Impressions [facility] - 09/15/2024 9:45 AM CDT These images are for Reference purposes only and have not been reviewed by [facility] Radiology. There will be no report generated by a [facility] Radiologist. Narrative [facility] - 09/15/2024 9:45 AM CDT EXAMINATION: Images For Reference Purposes Only us Ramy Aguilera MD IMG CT PROCEDURES Final Resu lt Performing Organization Address [facility] de Phone Number [facility] * PET Outside Reference (09/15/2024 9:45 AM CDT) Impressions JONA_RANGEL_BJAntonio - 09/15/2024 9:45 AM CDT These images are for Reference purposes only and have not been reviewed by [facility] Radiology. There will be no report generated by a [facility] Radiologist. Narrative RAD_RANGEL_BJAntonio - 09/15/2024 9:45 AM CDT EXAMINATION: Images For Reference Purposes Only us Ramy Aguilera MD IMG PET PROCEDURES Final Res ult Performing Organization Address [facility] de Phone Number [facility] * CT Body Outside Reference (09/15/2024 9:44 AM CDT) Impressions CINDA_HARSHA - 09/15/2024 9:44 AM CDT These images are for Reference purposes only and have not been reviewed by [facility] Radiology. There will be no report generated by a [facility] Radiologist. Narrative RAD_RANGEL_HARSHA - 09/15/2024 9:44 AM CDT EXAMINATION: Images For Reference Purposes Only us Ramy Aguilera MD IMG CT PROCEDURES Final Resu lt Performing Organization Address [facility] de Phone Number [facility] * Urinalysis reflex to microscopic and culture Urine (09/13/2024 7:18 PM CDT) Color, ur Yellow Yellow Comment:Testing performed by : [address] [address] Clarity, ur Clear Clear JOSELYN Comment:Testing performed by : [address] [address] Specific gravity, ur 1.009 1.003 - 1.030 JOSELYN Comment:Testing performed by : [address] [address] pH, urine 6.5 JOSELYN Comment: Interpretive Data U rine pH is affected by diet, medications, systemic acid-base disturbances, and renal tubular function. pH may affect urinary stone formation. For example, urine pH below 6.0 may help reduce the tendency for calcium phosphate stones and pH greater than 6.0 may reduce the tendency for uric acid stone formation. Source: [facility] Current Interpretive Data was last revised on 2017 Testing performed by: [facility], [address] [place] [address], [place]., [address] Protein, ur ql Negative Negative JOSELYN Comment:Testing performed by : [address], [place]., [address] Glucose, ur ql Negative Negative JOSELYN Comment:Testing performed by : [address], [place]., [address] Ketones, ur Negative Negative JOSELYN Comment:Testing performed by : [address], [place]., [address] Bilirubin, ur Negative Negative JOSELYN Comment:Testing performed by : [address], [place]., [address] Blood, ur Negative Negative JOSELYN Comment:Testing performed by : [address], [place]., [address] Urobilinogen, ur <2.0 <2.0 mg/dL JOSELYN Comment:Testing performed by : [address], [place]., [address] Nitrite, ur Negative Negative JOSELYN Comment:Testing performed by : [address], [place]., [address] Leukocyte esterase, ur Negative Negative JOSELYN Comment:Testing performed by : [address], [place]., [address] UA reflex comment Reflex conditions for microscopic UA and culture not met. JOSELYN Comment:Testing performed by : [address], [place]., [address] Urine 09/13/2024 7:18 PM CDT 09/13/2024 7:22 PM CDT us Mario Murray DO LAB MICROBIOLOGY - GENERAL ORD ERABLES Final Result Performing Organization Address City/State/[facility] de Phone Number JOSELYN [address] [facility] [place] [address] * POCT glucose (09/13/2024 7:10 PM CDT) [facility] Glucose, POC 104 70 - 199 mg/dL Comment:Testing performed by : [facility], [address] [place] [address]., [address] Glucose comment 1 RN/MD Notified [facility] Comment:Testing performed by : [facility], [address] [place] [address]., [address] Blood 09/13/2024 7:10 PM CDT 09/13/2024 7:10 PM CDT us Notinfile Unknown LAB POCT ORDERABLES - DEVICE F inal Result Performing Organization Address [facility] de Phone Number [facility] [address] [facility] [place] [address] * ECG 12 lead (09/13/2024 3:43 PM CDT) [facility] Ventricular Rate EKG/Min 103 BPM [facility] Atrial Rate 103 BPM [facility] LA-Interval (MSEC) 128 ms [facility] QRS-Interval (MSEC) 88 ms [facility] QT-Interval (MSEC) 358 ms [facility] QTc 468 ms [facility] P Adrian 54 degrees [facility] R Adrian 55 degrees [facility] T Adrian 38 degrees [facility] Diagnosis Sinus tachycardia Possible Left atrial enlargement RSR' or QR pattern in V1 suggests right ventricular conduction delay Nonspecific T wave abnormality Abnormal ECG No previous ECGs available Confirmed by YANDY LEON M.D. ([id number]) on 09/13/2024 8:06:17 PM [facility] 09/13/2024 3:43 PM CDT 09/13/2024 8:06 PM CDT us Mario Murray DO ECG ORDERABLES Final Result Performing Organization Address [facility] de Phone Number [facility] * eGFR (09/13/2024 3:43 PM CDT) [...] was last reviewed 2021. Testing performed by: [address] [address] Blood 09/13/2024 3:43 PM CDT 09/13/2024 3:48 PM CDT us Mario Murray DO LAB BLOOD ORDERABLES Final Res ult JOSELYN [address] [facility] [place] [address] * Differential, auto (09/13/2024 3:43 PM CDT) Pathologist [facility] Neutrophil abs 2.62 1.50 - 6.50 K/cumm Comment:Testing performed by : [address] [address] Imm gran abs 0.02 0.00 - 0.10 K/cumm JOSELYN Comment:Testing performed by : [address] [address] Lymphocyte abs 2.86 0.80 - 3.30 K/cumm JOSELYN Comment:Testing performed by : [address] [address] Monocyte abs 0.58 0.20 - 0.80 K/cumm [facility] Comment:Testing performed by : [address] [address] Eosinophil abs 0.09 0.00 - 0.50 K/cumm [facility] Comment:Testing performed by : [address] [address] Basophil abs 0.05 0.00 - 0.10 K/cumm [facility] Comment:Testing performed by : [address] [address] Neutrophil pct 42.2 % [facility] Comment: Interpretive Data Percent cell count reference ranges are not reported, since discordance with absolute values may lead to misinterpretation of CBC data. Current Interpretive Data was last revised on 2017. Testing performed by: [address] [address] Imm gran pct 0.3 % [facility] Comment: Interpretive Data Percent cell count reference ranges are not reported, since discordance with absolute values may lead to misinterpretation of CBC data. Current Interpretive Data was last revised on 2017. Testing performed by: [address] [address] Lymphocyte pct 46.0 % [facility] Comment: Interpretive Data Percent cell count reference ranges are not reported, since discordance with absolute values may lead to misinterpretation of CBC data. Current Interpretive Data was last revised on 2017. Testing performed by: [address] [address] Monocyte pct 9.3 % [facility] Comment: Interpretive Data Percent cell count reference ranges are not reported, since discordance with absolute values may lead to misinterpretation of CBC data. Current Interpretive Data was last revised on 2017. Testing performed by: [address] [address] Eosinophil pct 1.4 % [facility] Comment: Interpretive Data Percent cell count reference ranges are not reported, since discordance with absolute values may lead to misinterpretation of CBC data. Current Interpretive Data was last revised on 2017. Testing performed by: [address] [address] Basophil pct 0.8 % JOSELYN Comment: Interpretive Data Percent cell count reference ranges are not reported, since discordance with absolute values may lead to misinterpretation of CBC data. Current Interpretive Data was last revised on 2017. Testing performed by: [address] [address] Blood 09/13/2024 3:43 PM CDT 09/13/2024 3:48 PM CDT us Mario Murray DO LAB BLOOD ORDERABLES Final Res ult JOSELYN [address] [facility] [place] [address] * (ABNORMAL) CBC with auto differential (09/13/2024 3:43 PM CDT) WBC 6.22 3.80 - 9.90 K/cumm Comment:Testing performed by : [address] [address] Hgb 12.6 11.9 - 15.5 g/dL JOSELYN VAZQUEZ Comment:Testing performed by : [address] [address] Hct 35.9 35.6 - 45.5 % JOSELYN VAZQUEZ Comment:Testing performed by : [address] [address] Plt 168 150 - 400 K/cumm JOSELYN Comment:Testing performed by : [address] [address] MPV 9.3 9.1 - 12.3 fL JOSELYN VAZQUEZ Comment:Testing performed by : [address] [address] RBC 4.00 3.90 - 5.20 M/cumm JOSELYN VAZQUEZ Comment:Testing performed by : [address] [address] MCV 89.8 81.3 - 96.4 fL JOSELYN VAZQUEZ Comment:Testing performed by : [address] [address] MCH 31.5 27.1 - 33.3 pg JOSELYN Comment:Testing performed by : [address] [address] MCHC 35.1 32.3 - 35.7 g/dL JOSELYN VAZQUEZ Comment:Testing performed by : [address] [address] RDW CV 15.3(H) 11.1 - 14.9 % JOSELYN Comment:Testing performed by : [address], [place]., [address] RDW SD 49.8(H) 35.7 - 48.1 fL JOSELYN Comment:Testing performed by : [address] [address] NRBC abs 0.00 0.00 - 0.01 K/cumm JOSELYN Comment:Testing performed by : [address] [address] Blood Venous blood specimen / Unknown 09/13/2024 3:43 PM CDT 09/13/2024 3:48 PM CDT us Mario Murray DO LAB BLOOD ORDERABLES Final Res ult JOSELYN [address] [facility] Department of Laboratories [place], [place] [id number] * hCG, blood, quantitative (09/13/2024 3:43 PM CDT) [facility] hCG, quant <5.0 0.0 - 5.0 IUnits/L Comment: Interpretive Data Male: < 5 IU/L Non- premenopausal Female: <5 IU/L The [employer] hCG Beta Quant assay procedure was used. Results from different manufacturers or methods may not be comparable. Serial testing should be performed using the same method. Interpretive Data was last revised on 2023 Testing performed by: [address] [address] Blood 09/13/2024 3:43 PM CDT 09/13/2024 3:48 PM CDT Mario Murray DO LAB BLOOD ORDERABLES Edited Re sult - Final Performing Organization Address [facility]/ZIP Co de Phone Number JOSELYN [address] [place] [address] * Uric acid (09/13/2024 3:43 PM CDT) Uric acid 5.0 2.5 - 7.0 mg/dL Comment:Testing performed by : [address] [address] Blood 09/13/2024 3:43 PM CDT 09/13/2024 3:48 PM CDT Mario Murray DO LAB BLOOD ORDERABLES Final Res ult Performing Organization Address [facility] de Phone Number JOSELYN [address] [place] [address] * Phosphorus (09/13/2024 3:43 PM CDT) Phosphorus, pl 3.0 2.3 - 4.5 mg/dL Comment:Testing performed by : [address] [address] Blood 09/13/2024 3:43 PM CDT 09/13/2024 3:48 PM CDT Mario Murray DO LAB BLOOD ORDERABLES Final Res ult Performing Organization Address [facility] Co de Phone Number JOSELYN [address] [address] * Magnesium (09/13/2024 3:43 PM CDT) Magnesium 1.8 1.4 - 2.5 mg/dL Comment:Testing performed by : [address] [address] Blood 09/13/2024 3:43 PM CDT 09/13/2024 3:48 PM CDT Spike Perales III, MD LAB BLOOD ORDERABLES F inal Result Performing Organization Address City/[facility]/ZIP Co de Phone Number [address] [address] * Lipase (09/13/2024 3:43 PM CDT) Lipase 11 10 - 99 Units/L Comment:Testing performed by : [address] [address] Blood Venous blood specimen / Unknown 09/13/2024 3:43 PM CDT 09/13/2024 3:48 PM CDT Mario Murray DO LAB BLOOD ORDERABLES Final Res ult Performing Organization Address [facility] Co de Phone Number [address] [address] * Lactate dehydrogenase (LD) (09/13/2024 3:43 PM CDT) Lactate dehydrogenase (LDH) 216 100 - 250 Units/L Comment:Testing performed by : [address] [address] Blood 09/13/2024 3:43 PM CDT 09/13/2024 3:48 PM CDT Mario Murray DO LAB BLOOD ORDERABLES Final Res ult Performing Organization Address [facility] Co de Phone Number [address] [address] * (ABNORMAL) Comprehensive metabolic panel (09/13/2024 3:43 PM CDT) Pathologist [facility] Sodium 143 135 - 145 mmol/L Comment:Testing performed by : [address] [address] Potassium, pl 2.7(L) 3.3 - 4.9 mmol/L JOSELYN Comment:Testing performed by : [address] [address] Chloride 99 97 - 110 mmol/L JOSELYN Comment:Testing performed by : [address] [address] CO2 28 22 - 32 mmol/L JOSELYN Comment:Testing performed by : [address], [place]., [address] Anion gap 16(H) 2 - 15 mmol/L JOSELYN Comment:Testing performed by : [address] [address] BUN 5(L) 6 - 25 mg/dL JOSELYN Comment:Testing performed by : [address] [address] Creatinine 0.60 0.60 - 1.10 mg/dL JOSELYN Comment:Testing performed by : [address] [address] Glucose 69(L) 70 - 199 mg/dL JOSELYN [...] was last revised 2022. Testing performed by: [address] [address] Calcium 9.2 8.5 - 10.3 mg/dL JOSELYN Comment:Testing performed by : [address] [address] Bilirubin, total 0.5 0.1 - 1.2 mg/dL JOSELYN Comment:Testing performed by : [address] [address] Protein, pl 6.4(L) 6.5 - 8.5 g/dL JOSELYN Comment:Testing performed by : [address], [place]., [address] Albumin 4.2 3.5 - 5.0 g/dL JOSELYN VAZQUEZ Comment:Testing performed by : [address] [address] Alk phos 155(H) 40 - 130 Units/L JOSELYN VAZQUEZ Comment:Testing performed by : [address] [address] ALT 6(L) 7 - 45 Units/L JOSELYN VAZQUEZ Comment:Testing performed by : [address] [address] AST 15 10 - 45 Units/L JOSELYN Comment:Testing performed by : [address] [address] Blood 09/13/2024 3:43 PM CDT 09/13/2024 3:48 PM CDT Mario Murray DO LAB BLOOD ORDERABLES Final Res ult Performing Organization Address City/State/[facility] Co de Phone Number JOSELYN [address] [facility] [place] [address] from Last 3 Months Insurance [facility] Advance Directives For more information, please contact: [phone] * Full Code (Latest Code Status on File) Date Activated Date Inactivated Comments 09/22/2024 9:00 PM 09/24/2024 10:30 PM * Full Code Date Activated Date Inactivated Comments 09/17/2024 2:33 PM 09/17/2024 11:31 PM Care Teams Machine Brush Maker Relationship Specialty Start Date End Date Richard Fish NP [address] [place] [address] PCP - General Nurse Practitioner 02/13/24 Ramy Aguilera MD [address] [place] [address] Medical Oncologist/Refractive Surgeon Internal Medicine 09/23/24
[2024-10-10 22:25] LABS: Add Urine Microscopic? YES; Appearance Urine Cloudy (Clear); Glucose Urine UA Negative (Negative); Leukocyte Esterase Ur Trace LEU/UL (Negative); Nitrate Urine Positive (Negative); Non Pathogenic Casts 0-2; Specific Grav Ur 1.017 (1.001-1.035)
[2024-10-10 22:28] LABS: Alanine Aminotransferase 14 U/L (6-35); Albumin Level 3.9 g/dL (3.5-5.1); Alkaline Phosphatase 93 U/L (38-126); Anion Gap 6 mmol/L (4-12); Aspartate Amino Transferase 29 U/L (14-36); Bilirubin,Total 0.3 mg/dL (0.2-1.3); Blood Urea Nitrogen 10 mg/dL (7-17); Calcium 9.8 mg/dL (8.4-10.2); Carbon Dioxide 32 mmol/L (22-30); Chloride 99 mmol/L (98-107); Estimated CRCL calculation 83 ml/min; Estimated Glomerular Filt Rate > 60; Glucose 94 mg/dL (65-110); Potassium 3.3 mmol/L (3.4-5.0); Sodium 137 mmol/L (137-145); Total Protein 6.4 g/dL (6.3-8.2)
[2024-10-10 22:52] LABS: BEDSIDEPREGUCG Negative (Negative)
[2024-10-10] MEDS: LORazepam INJ (*CRX) 2 MG/ML VIAL 1 MG IV PUSH (23:08)
[2024-10-10] MEDS: MORPHINE SULFATE (*CRX) 2 MG/ML INJ IV PUSH ×2 (23:08→23:55)
[2024-10-10] MEDS: SODIUM CHLORIDE 0.9% IV 1,000 ML 999 ML IV CONT (23:09)
[2024-10-10] MEDS: POTASSIUM CHLORIDE 20 MEQ ER TABLET 40 MEQ PO (23:20)
--- NOTE | 2024-10-10 23:35 | PC.NURSE ---
pt ambulatory with steady gait to restroom. Pt reattached to iv fluids. Pt requested to speak to edp again. EDP Bolton notified of pt request.
--- NOTE | 2024-10-11 00:03 | ED.NAVMDI ---
HPI - Nausea/Vomiting/Diarrhea General Chief complaint: Nausea/Vomiting/Diarrhea Stated complaint: chemo patient, n/v , mouth sores Time Seen by Provider: 10/10/24 21:50 History of Present Illness HPI Narrative: Patient is on chemotherapy for lymphoma, she has been having severe nausea vomiting, cannot keep anything down, and having severe pain in her back and her mouth. Feels similar to when she was last on chemotherapy in the past. Has tried taking her home oxycodone and clonazepam. Related Data Home Medications ?Medication ?Instructions ?Recorded ?Confirmed ?Last Taken ?Type hydroxyzine HCl 25 mg tablet 25 mg PO TID 03/21/23 03/27/23 Unknown History methylprednisolone 4 mg tablets in mg 03/21/23 03/21/23 Unknown History a dose pack hydroxyzine HCl 25 mg tablet mg 09/30/23 Unknown History ibuprofen 600 mg tablet mg 09/30/23 Unknown History megestrol 400 mg/10 mL (40 mg/mL) mg 09/30/23 Unknown History oral suspension morphine 30 mg immediate release mg 09/30/23 Unknown History tablet ondansetron 4 mg disintegrating mg 09/30/23 Unknown History tablet pregabalin 50 mg capsule mg 09/30/23 Unknown History promethazine 25 mg rectal mg RECTAL 09/30/23 Unknown History suppository (Promethegan) valacyclovir 500 mg tablet mg 09/30/23 Unknown History Allergies Allergy/AdvReac Type Severity Reaction Status Date / Time azithromycin AdvReac Nausea Verified 10/10/24 21:08 codeine AdvReac Vomiting Verified 10/10/24 21:08 diphenhydramine (From AdvReac Jittery Verified 10/10/24 21:08 Benadryl) pecan nut AdvReac Nausea and Verified 10/10/24 21:08 Vomiting pregabalin AdvReac Unknown Verified 10/10/24 21:08 Review of Systems Review of Systems: All systems reviewed & are unremarkable except as noted in HPI and below PMFSH Past Medical History Medical History Drug-induced psychotic disorder Atypical bipolar disorder Anxiety MRSA infection buttock and leg during last lengthy incarceration (2020) Ectopic Methamphetamine abuse, episodic History of heroin use Surgical History Surgical History History of breast surgery 2018 or 2019, 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 L Side. History of salpingo-oophorectomy Social History Social History Social History: Currently living with boyfriend. Full Code. Surrogate decision maker - Isaiah Beverly (step-dad), if unavailable then Marlene Carbone (mom). Smoking packs per day: 1 Smoking cigarettes per day: 20.0 Years smoked: 11 Smoking pack-years: 11.00 Smoking status: Current every day smoker Tobacco type: cigarettes Alcohol intake: current Drinks per week: 1 Alcohol use details: social Substance use: former Substance use type: marijuana Other substance usage details: QUIT USING EARLY DEC 2022 D/T DIAGNOSIS & SURGERY Last use: last use of heroin-September 2014 Lack of Transportation: No Lack of Food: Never True Current Housing: I Have Housing Concerned About Future Housing: No Difficulty Paying Gas/Electric Bills: No Difficulty Paying for Meds: No Currently Unemployed: No Education: High School Diploma/GED Difficulty w/ Childcare or Family Care: No Living arrangements: with friend(s) Additional living arrangements comments: boyfriend Spiritual care concerns: No Exam Narrative: EXAMINATION OF ORGAN SYSTEMS/BODY AREAS: Constitutional: Vital signs per nursing GENERAL: Appears anxious HEAD: Normal with no signs of head trauma. EYES: EOMI, conjunctiva normal ENT: Hearing grossly intact LUNGS: Nonlabored breathing. HEART: [Regular rate and rhythm] ABD: [Soft], slight flank tenderness EXT: Normal range of motion SKIN: [No rashes or lesions.] NEURO: [Alert and oriented x 3. No gross focal sensory or strength deficits.] PSYCH: Normal affect Course Vital Signs Vital signs: Vital Signs Temperature 97.6 F 10/10/24 21:05 Pulse Rate 83 10/10/24 21:05 Respiratory Rate 16 10/10/24 21:05 Blood Pressure 124/101 H 10/10/24 21:05 Pulse Oximetry 99 10/10/24 21:05 Oxygen Delivery Room Air 10/10/24 21:05 Temperature 97.6 F 10/10/24 21:05 Pulse Rate 70 10/10/24 22:00 Respiratory Rate 15 10/10/24 22:00 Blood Pressure 100/65 10/10/24 22:20 Pulse Oximetry 98 07/06/25 22:36 Oxygen Delivery Room Air 10/10/24 21:05 MDM - Nausea/Vomiting/Diarrhea MDM Narrative Medical decision making narrative: Patient presenting with chemotherapy-induced nausea vomiting and mouth sores, she is also having back pain. She labs notable for slightly elevated white count, urinalysis appears consistent with urinary tract infection, potassium is slightly low which I have repleted. I did check her last urine culture, susceptible to ceftriaxone and Augmentin so I will start her on antibiotics. She is given IV fluids here, nausea medication, and on re-evaluation, she does feel better and is now tolerating p.o.. She is requesting pain medication, I will give her a small dose here and have her follow-up with her doctor. Patient agreeable to this plan. Lab Data 10/10/24 22:04 10/10/24 22:04 Labs: Lab Results 10/10/24 10/10/24 10/10/24 Range/Units 22:04 22:12 22:50 WBC 13.1 H (4.5-10.0) K/mm3 RBC 3.55 L (4.2-5.4) M/mm3 Hgb 10.9 L (12.0-15.0) g/dL Hct 33.3 L (37.0-47.0) % MCV 93.8 (80-100) fl MCH 30.7 (26-34) pg MCHC 32.7 (32-36) g/dl RDW 14.0 (11.5-14.5) % Plt Count 194 D (150-375) k/mm3 MPV 9.0 (7.4-10.4) fl Immature Gran % (Auto) 0.2 (0-0.5) % Neut % (Auto) 29.2 L (45.5-73.1) % Lymph % (Auto) 66.6 H (18.3-44.2) % [place] % (Auto) 2.6 (2.6-8.5) % Eos % (Auto) 1.1 (0-4.4) % Baso % (Auto) 0.3 (0.2-1.2) % Lymph # (Auto) 8.73 H (0.9-3.2) K/mm3 [place] # (Auto) 0.3 (0.1-0.6) K/mm3 Eos # (Auto) 0.1 (0-0.3) K/mm3 Baso # (Auto) 0.0 (0.0-0.1) K/mm3 Abs Immat Gran (auto) 0.03 (0.00-0.031) K/mm3 Absolute Neuts (auto) 3.8 (1.3-6.7) K/mm3 Absolute Nucleated RBC 0.000 (0.0-0.012) K/mm3 Nucleated RBC % 0.0 (0.0-0.2) % Sodium 137 (137-145) mmol/L Potassium 3.3 L (3.4-5.0) mmol/L Chloride 99 (98-107) mmol/L Carbon Dioxide 32 H (22-30) mmol/L Anion Gap 6 (4-12) mmol/L BUN 10 (7-17) mg/dL Creatinine 0.69 L (0.7-1.0) mg/dL Estim Creat Clear Calc 83 ml/min Estimated GFR > 60 (59 - ) Glucose 94 (65-110) mg/dL Calcium 9.8 (8.4-10.2) mg/dL Total Bilirubin 0.3 (0.2-1.3) mg/dL AST 29 (14-36) U/L ALT 14 (6-35) U/L Alkaline Phosphatase 93 (38-126) U/L Total Protein 6.4 (6.3-8.2) g/dL Albumin 3.9 (3.5-5.1) g/dL Urine Color Yellow (Yellow) Urine Appearance Cloudy H (Clear) Urine pH 7.5 (5.0-9.0) Ur Specific Clyde 1.017 (1.001-1.035) Urine Protein Trace (Negative) mg/dL Urine Glucose (UA) Negative (Negative) mg/dL Urine Ketones Negative (Negative) mg/dL Ur Blood (Man) Negative (Negative) Urine Nitrate Positive H (Negative) Urine Bilirubin Negative (Negative) Urine Urobilinogen 1.0 (<2.0) mg/dL Leukocyte Esterase Rfl Trace H (Negative) EMMANUELLE/UL Urine RBC 0-2 (0-2) /hpf Urine WBC 0-5 (0-3) /hpf Ur Squamous Epith Cells Occasional (Few) /hpf Urine Bacteria 4+ H /hpf Urine Casts 0-2 POC Urine HCG, Qual Negative (Negative) Discharge Plan Discharge Clinical Impression: Drug-induced nausea and vomiting, UTI (urinary tract infection) Patient Disposition: Home Condition: Stable Instructions: Antibiotic Form, Urinary Tract Infection in Women (ED), Chemo Induced Nausea and Vomiting (ED) Additional Instructions: Please follow up with your doctor; you can always return for any further issues. Patient Language: Japanese Prescriptions: New amoxicillin-pot clavulanate 875-125 mg tablet 1 tablet PO Q12H Qty: 14 0RF Discontinued amoxicillin-pot clavulanate 875-125 mg tablet 1 tablet PO Q12H 7 Days Qty: 14 0RF No Action oxycodone-acetaminophen [Percocet] 10-325 mg tablet 1 tablet PO Q4H PRN (Reason: pain) Qty: 5 0RF ondansetron 4 mg tablet,disintegrating 4 mg PO Q6H PRN (Reason: nausea and vomiting) Qty: 20 0RF hydroxyzine HCl 25 mg tablet 25 mg PO TID methylprednisolone 4 mg tablets,dose pack promethazine 25 mg suppository 25 mg RECTAL Q6H PRN (Reason: nausea and vomiting) Qty: 12 0RF ondansetron 4 mg tablet,disintegrating 4 mg PO Q8H PRN (Reason: nausea and vomiting) Qty: 30 0RF oxycodone-acetaminophen [Percocet] 10-325 mg tablet 1 tablet PO Q6H PRN (Reason: pain) Qty: 20 0RF ondansetron 4 mg tablet,disintegrating 4 mg PO Q8H PRN (Reason: nausea and vomiting) Qty: 10 0RF potassium chloride 20 mEq/15 mL liquid 20 meq PO DAILY 7 Days Qty: 105 0RF promethazine 25 mg suppository 25 mg RECTAL Q6H PRN (Reason: nausea and vomiting) Qty: 12 0RF megestrol 400 mg/10 mL (40 mg/mL) suspension promethazine [Promethegan] 25 mg suppository RECTAL valacyclovir 500 mg tablet morphine 30 mg tablet hydroxyzine HCl 25 mg tablet ibuprofen 600 mg tablet ondansetron 4 mg tablet,disintegrating pregabalin 50 mg capsule phenazopyridine [Pyridium] 200 mg tablet 200 mg PO TID Qty: 6 0RF Follow-up/Referrals: PHYSICIAN,FURNACE MAINTENANCE [Primary Care Provider] -
[2024-10-11 00:04] VITALS: BP 107/68; PULSE 65; RESP 16; TEMP 36.8; O2SAT 98
== END 2024-10-11 00:07 | disposition home or self-care (01) ==
PROVIDERS: Emergency Provider Emergency Medicine
DX: N39.0 Urinary tract infection, site not specified (principal); C85.90 Non-Hodgkin lymphoma, unspecified, unspecified site; F31.9 Bipolar disorder, unspecified; F41.9 Anxiety disorder, unspecified; Z86.14 Personal history of Methicillin resistant Staphylococcus aureus infection; Z90.79 Acquired absence of other genital organ(s); F17.210 Nicotine dependence, cigarettes, uncomplicated; Z79.60 Long term (current) use of unspecified immunomodulators and immunosuppressants
CPT/HCPCS: 36415; 80053; 81001; 81025; 85025; 87086; 87186; 96361; 96365; 96375; 96376; 99284; A9270; J0696; J2060; J2270; J2405; J7030; J7120

== ENCOUNTER 2025-01-18 00:05 | Emergency (ER) | payer OTHER, SELFPAY ==
[2025-01-18 00:09] VITALS: BP 107/78; PULSE 88; RESP 20; TEMP 36.4; O2SAT 97
== END 2025-01-18 01:45 | disposition left against medical advice (07) ==
LOC: ANHED 02:05
DX: K13.79 Other lesions of oral mucosa (principal)
CPT/HCPCS: 99199

== ENCOUNTER 2025-01-25 19:53 | Emergency (ER) | payer OTHER, SELFPAY ==
--- OUTSIDE RECORDS SUMMARY | 2024-10-11 09:40 | XMS_ITS ---
Author Organization [facility] Address [address] [place] [address] Care Team Providers Care Stone Setter Apprentice Name Role Phone Satya Fernandez Primary Care Provider REASON FOR VISIT 2 Week F/U Social History Sex Assigned At : Social History Observation Description Sex Assigned At Female Encounters Encounter Location Date Provider Diagnosis [address] [place] [address] 10/11/2024 Satya Fernandez Plan Of Treatment No Information Progress Notes * Soha MARRERO RDOB:[birth year] (34 yo F)Acc No.[id number]:10/11/2024 UNLOCKED PROGRESS NOTE Progress Notes Patient: Soha LLOYD Provider: Devin Fernandez :1990 A ge:34 Y S ex:Female Date:10/11/2024 Address:[address] [place] [address] Subjective: * Chief Complaints: * 1 . 2 Week F/U. * Medical History: Objective: * Vitals: Assessment: Plan: * Treatment: * * Electronic signature of Kar Fernandez , [id number] on 01/26/2025 at 12:05 AM CDT Sign off status: Pending * Provider: Devin Fernandez Date: 0 10/11/2024 Generated for Cassie valero/Claire/Mervat on: 12:05 AM CDT
--- OUTSIDE RECORDS SUMMARY | 2024-10-11 09:40 | XMS_ITS ---
Author Organization [facility] Address [address] [place] [address] Care Team Providers Care Singer Back Tender Name Role Phone Satya Fernandez Primary Care Provider REASON FOR VISIT 2 Week F/U Social History Sex Assigned At : Social History Observation Description Sex Assigned At Female Encounters Encounter Location Date Provider Diagnosis [address] [place] [address] 10/11/2024 Satya Fernandez Plan Of Treatment No Information Progress Notes * Soha MARRERO RDOB:[birth year] (34 yo F)Acc No.[id number]:10/11/2024 UNLOCKED PROGRESS NOTE Progress Notes Patient: Soha LLOYD Provider: Devin Fernandez :1990 A ge:34 Y S ex:Female Date:10/11/2024 Address:[address] [place] [address] Subjective: * Chief Complaints: * 1 . 2 Week F/U. * Medical History: Objective: * Vitals: Assessment: Plan: * Treatment: * * Electronic signature of Kar Fernandez , [id number] on 01/24/2025 at 11:15 PM CDT Sign off status: Pending * Provider: Devin Fernandez Date: 0 10/11/2024 Generated for Cassie valero/Claire/eTransmmelanie on: 1 11:15 PM CDT
--- OUTSIDE RECORDS SUMMARY | 2025-01-24 23:15 | XMS_ITS | Encounter Summary ---
Author Organization [facility] Address [address] [place] [address] Care Team Providers Care Duplication Specialist Name Role Phone None, Provider MD Primary Care Provider Unavaila ble Reason for Visit * Reason Comments Mouth Sores Encounter Details Date Type Department Care Team (Late st Contact Info) Description 01/24/2025 11:15 PM CDT - 01/25/2025 1:40 AM CDT Emergency [facility] Emergency Room [address] [place], [place] [id number] Koko Rankin MD,PHD [address] [place], [place] [address] Mouth Sores Discharge Disposition: Home or Self Care (Routine Discharge) Social History Tobacco Use Types Packs/Day Years Used Date Smoking Tobacco: Every Day Cigarettes 1 13.8 Started: 2011 Passive Smoke Exposure: Current Alcohol Use Standard Drinks/Week Comments Yes 4 [...] Sign Reading Time Taken Comments Blood Pressure 124/84 01/24/2025 11:20 PM CDT Pulse 96 01/24/2025 11:20 PM CDT Temperature 36.9 C (98.4 F) 01/24/2025 11:20 PM CDT Respiratory Rate 18 01/24/2025 11:20 PM CDT Oxygen Saturation 99% 01/24/2025 11:23 PM CDT Inhaled Oxygen Concentration - - Weight 52.2 kg (115 lb) 01/24/2025 11:20 PM CDT Height 162.6 cm (5' 4) 01/24/2025 11:20 PM CDT Body Mass Index 19.74 01/24/2025 11:20 PM CDT documented in this encounter Functional Status * Calculated C-SSRS Risk Score (Lifetime/Recent) Answer Date of Assessment Author Status No Risk Indicated 01/24/2025 11:23 PM CDT Stephenie Wood RN Active * [place] Suicide Severity Rating Scale (Screener/Recent Self-Report) Question Answer Date of Assessment Author Status 1. Wish to be (Past 1 Month) No 01/24/2025 11:23 PM CDT Stephenie Wood RN Active 2. Non-Specific Active Suicidal Thoughts (Past 1 Month) No 01/24/2025 11:23 PM CDT Stephenie Wood RN Active 6. Suicidal Behavior (Lifetime) No 01/24/2025 11:23 PM CDT Stephenie Wood RN Active documented as of this encounter Discharge Instructions * Attachments The following attachments cannot be sent through Care Everywhere. * Mouth sores (Ecuadorean) documented in this encounter Medications at Time of Discharge aspirin EC (ECOTRIN) 81 MG tablet Take 1 tablet (81 mg total) by mouth daily. ferrous sulfate EC 324 (65 Fe) MG tablet Take 1 tablet (324 mg total) by mouth daily with breakfast. hydrOXYzine (ATARAX) 25 MG tablet Take 1 tablet (25 mg total) by mouth every 8 (eight) hours as needed for Itching (Rash). 03/20/2023 morphine CR (MS CONTIN) 30 MG tablet Take 1 tablet (30 mg total) by mouth every 12 (twelve) hours. As needed for cancer pain. multivitamin (THERA) tablet Take 1 tablet by mouth daily. naloxone (NARCAN) 4 MG/0.1ML nasal spray 1 spray by Nasal route as needed for Opioid reversal. 2 each 10/09/2023 ondansetron (ZOFRAN-ODT) 8 MG disintegrating tablet Take 1 tablet (8 mg total) by mouth every 8 (eight) hours as needed for Nausea. 03/07/2023 oxyCODONE-acetamino phen (PERCOCET) 5-325 MG tabletIndications:A cute Pain < 7 Day Supply Take 1 tablet by mouth every 4 (four) hours as needed for Pain. Indications: Acute Pain < 7 Day Supply Short term use, holiday, cancer break through pain 12 tablet 12/05/2023 promethazine (PHENERGAN) [address] 1 suppository (25 mg total) rectally every 8 (eight) hours as needed for Nausea. 03/22/2023 vitamin B-12 (CYANOCOBALAMIN) (CYANOCOBALAMIN) 1000 mcg tablet Take 1 tablet (1,000 mcg total) by mouth daily. vitamin C (ASCORBIC ACID) 500 MG tablet Take 1 tablet (500 mg total) by mouth daily. documented as of this encounter ED Notes * Stephenie Wood RN - 01/25/2025 1:14 AM CDT Provider discussed today's findings with the patient. The patient has been given information regarding their treatment, follow up and concerning symptoms for which they should seek urgent or emergentattention. I have expressed the the importance of seeking attention should there be any new, or worsening symptoms or persistence of their condition. Patient verbalized understanding of the dischargeinstructions. * Stephenie Wood RN - 01/25/2025 12:30 AM CDT Pt's IV in right AC infiltrated, IV removed. Heat pack applied at this time. * Koko Rankin MD,PHD - 01/25/2025 12:25 AM CDT EMERGENCY DEPARTMENT ENCOUNTER Chief Complaint Chief Complaint Patient presents with Mouth Sores History of Present Illness 34-year-old female presenting to the emergency department with oropharyngeal pain. Patient attributes her pain to dental caries, and unerupted wisdom teeth, as well as mucositis from recent chemotherapy. Patient sees pain management and is prescribed oxycodone, clonazepam, and Suboxone. He states that her medicines were either lost or stolen and that she was involved in a disagreement with her significant other in this regard which resulted in police being called. She plans to olive picker a refill prescribed to her tomorrow but has not had any of her prescription medications today. Physical Exam Filed Vitals: 01/24/25 2320 01/24/25 2323 BP: 124/84 Pulse: 96 Resp: 18 Temp: 98.4 ??F (36.9 ??C) TempSrc: Axillary SpO2: 99% 99% Weight: 52.2 kg (115 lb) Height: 1.626 m (5' 4) CONSTITUTIONAL: Patient is awake, alert, in no acute distress, conversant OROPHARYNX: Multiple dental caries and right mandibular teeth at the location of the patient's pain, no significant ulcerations NECK: Supple, soft tissue asymmetry edema or swelling, no adenopathy, no stridor CARDIOVASCULAR: Regular rate and rhythm RESPIRATORY: No respiratory distress or tachypnea, no wheezing or crackles ABDOMEN: Soft, nontender, nondistended, NEUROLOGIC: GCS 15, CN2-12 grossly intact, moves all extremities EXTREMITIES: Warm, no edema Diagnostic Studies / Procedures LABORATORY STUDIES: Results for orders placed or performed during the hospital encounter of 01/24/25 CBC W/DIFF AUTOMATED Result Value Ref Range WBC 21.04 (H) 4.5 - 11.0 x10'3/uL RBC 2.63 (L) 4.20 - 5.40 x10'6/uL HGB 7.8 (L) 12.0 - 16.0 G/DL HCT 24.7 (L) 38.0 - 48.0 % MCV 93.9 81.0 - 99.0 FL MCH 29.7 27.0 - 31.0 PG MCHC 31.6 (L) 32.0 - 36.0 G/DL RDW 18.4 (H) 11.5 - 14.5 % PLT 109 (L) 130 - 400 x10'3/uL MPV 10.9 9.3 - 12.2 FL DIFFERENTIAL TYPE MANUAL DIFFERENTIAL SEG NEUTROPHILS 4 % LYMPHOCYTES 95 % MONOCYTES 1 % ABS. NEUTROPHILS 0.84 (L) 1.80 - 7.70 x10'3/uL ABS. LYMPHOCYTES 19.99 (H) 1.00 - 4.80 x10'3/uL ABS. MONOCYTES 0.21 (L) 0.24 - 0.86 x10'3/uL RBC MORPHOLOGY RBC MORPHOLOGY APPEARS NORMAL. SLIDE REVIEWED. PLT EST. ADEQUATE COMPREHENSIVE METABOLIC PANEL Result Value Ref Range GLUCOSE 88 70 - 99 MG/DL BUN 17 7 - 18 MG/DL CREATININE S/P/B 0.87 0.55 - 1.02 MG/DL SODIUM S/P/B 138 136 - 145 MMOL/L POTASSIUM S/P/B 4.1 3.5 - 5.1 MMOL/L CHLORIDE S/P/B 101 97 - 115 MMOL/L CO2 31.4 21 - 32 MMOL/L CALCIUM S/P/B 9.1 8.5 - 10.1 MG/DL BILIRUBIN TOTAL S/P/B 0.4 0.2 - 1.2 MG/DL TOTAL PROTEIN S/P/B 6.4 6.4 - 8.2 G/DL ALBUMIN S/P/B 3.5 3.4 - 5.0 G/DL AST 22 15 - 37 U/L ALT 26 14 - 55 U/L ALKALINE PHOSPHATASE S/P/B 119 50 - 136 U/L ANION GAP 5.6 2 - 10 MMOL/L BUN CREATININE RATIO 19.5 6 - 26 A/G RATIO 1.2 1.0 - 2.0 RATIO GFR ESTIMATE >90 >90 ML/MIN/1.73 M2 Qualitative HCG Result Value Ref Range PREG SCREEN-SERUM NEGATIVE ED Course / Medical Decision Making I reviewed the patient's labs, which are significant for nonspecific leukocytosis and normocytic anemia, possibly due to recent treatments for hematologic malignancy, a serum test is negative. CMP is unremarkable. I interpreted the patient's pulse oximeter at rest, which is 99% on room air, which is normal and determined that this patient is not hypoxic Medication management: Toradol, viscous lidocaine, oxycodone, morphine, Dilaudid, ondansetron are administered for symptomatic relief IV fluids are administered at the request of the patient The patient's oral exam shows caries There is no appreciable drainable fluid collection along the gumline There is no evidence of soft tissue infection of the head or neck my physical examination, the patient's normal vital signs are further not suggestive of an aggressive soft tissue infection The patient is thus deemed stable for discharge. Patient is chronically dependent on multiple controlled substances and communicates that her medications were stolen or lost today. Her examination is unremarkable, and while minimally apparent on exam, mucositis from chemotherapy is possibly contributory. Pain due to dental caries is also likely contributory. Clinical Impression Mucositis (Primary) Pain due to dental caries Disposition: Discharge home Patient provided with printed and verbal discharge care instructions and was instructed to return to the emergency department immediately with worsening symptoms or new worrisome symptoms. Patient was instructed to follow-up with primary care physician within 1 week for further evaluation and treatment. Diagnoses & treatment discussed with patient Patient expressed understanding and agreed. 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 Pt reports having lymphoma, last chemotherapy treatment was last . Pt is aox4 and rates pain 6.5/10. * Elizabeth Jeffers RN - 01/24/2025 11:15 PM CDT Bed: 08 Expected date: Expected time: Means of arrival: Comments: 1241 documented in this encounter Plan of Treatment Pending Results Name Type Priority Associated Diagnoses Date /Time Pathology Pathology and Cytology Routine 12:00 AM CDT Scheduled Orders Name Type Priority Associated Diagnoses Orde r Schedule Pathology Pathology and Cytology Routine On ce for 1 Occurrences starting 01/25/2025 until 01/25/2025 documented as of this encounter Procedures Procedure Name Priority Date/Time Associated Diagnosis Comments COMPREHENSIVE METABOLIC PANEL STAT 01/24/2025 11:29 PM CDT CHORIONIC GONADOTROPIN HCG QL STAT 01/24/2025 11:29 PM CDT CBC W/DIFF AUTOMATED STAT 01/24/2025 11:29 PM CDT documented in this encounter Results * Qualitative HCG (01/24/2025 11:29 PM CDT) PREG SCREEN-SERUM NEGATIVE 01/25/2025 12:11 AM CDT [facility] 01/24/2025 11:2 9 PM CDT us Koko Rankin MD,PHD LABORATORY Final Resu lt [facility] [address] [place] [address], [place] [phone] * COMPREHENSIVE METABOLIC PANEL (01/24/2025 11:29 PM CDT) Pathologist [facility] GLUCOSE 88 70 - 99 MG/DL 01/25/2025 12:20 AM CDT [facility] BUN 17 7 - 18 MG/DL 01/25/2025 12:20 AM CDT [facility] CREATININE S/P/B 0.87 0.55 - 1.02 MG/DL 01/25/2025 12:20 AM CDT [facility] SODIUM S/P/B 138 136 - 145 MMOL/L 01/25/2025 12:20 AM CDT [facility] POTASSIUM S/P/B 4.1 3.5 - 5.1 MMOL/L 01/25/2025 12:20 AM CDT [facility] CHLORIDE S/P/B 101 97 - 115 MMOL/L 01/25/2025 12:20 AM CDT [facility] CO2 31.4 21 - 32 MMOL/L 01/25/2025 12:20 AM CDT [facility] CALCIUM S/P/B 9.1 8.5 - 10.1 MG/DL 01/25/2025 12:20 AM CDT [facility] BILIRUBIN TOTAL S/P/B 0.4 0.2 - 1.2 MG/DL 01/25/2025 12:20 AM T [facility] Comment: THIS ASSAY IS NOT RECOMMENDED FOR PATIENTS UNDERGOING TREATMENT WITH ELTROMBOPAG DUE TO THE POTENTIAL FOR FALSELY ELEVATED RESULTS. TOTAL PROTEIN S/P/B 6.4 6.4 - 8.2 G/DL 01/25/2025 12:20 AM CDT [facility] ALBUMIN S/P/B 3.5 3.4 - 5.0 G/DL 01/25/2025 12:20 AM CDT [facility] AST 22 15 - 37 U/L 01/25/2025 12:20 AM T [facility] ALT 26 14 - 55 U/L 01/25/2025 12:20 AM CDT [facility] ALKALINE PHOSPHATASE S/P/B 119 50 - 136 U/L 01/25/2025 12:20 AM T [facility] ANION GAP 5.6 2 - 10 MMOL/L 01/25/2025 12:20 AM T [facility] BUN CREATININE RATIO 19.5 6 - 26 01/25/2025 12:20 AM T [facility] A/G RATIO 1.2 1.0 - 2.0 RATIO 01/25/2025 12:20 AM [facility] GFR ESTIMATE >90 >90 ML/MIN/1.7 3 M2 01/25/2025 12:20 AM T [facility] Comment: NOTE: eGFR is not calculated for patients <18 years of age or gender unknown. This is an estimated GFR calculation using the new CKD EPI creatinine equation without race and so does not require a correction factor for race. This estimated GFR should not be used for calculating drug doses. 01/24/2025 11:2 9 PM CDT us Koko Rankin MD,PHD LABORATORY Final Resu lt [facility] [address] [place] [address], [place] [phone] * (ABNORMAL) CBC W/DIFF AUTOMATED (01/24/2025 11:29 PM CDT) [facility] Signature WBC 21.04(H) 4.5 - 11.0 x10'3/uL 01/25/2025 12:04 AM CDT [facility] RBC 2.63(L) 4.20 - 5.40 x10'6/uL 01/25/2025 12:04 AM CDT [facility] HGB 7.8(L) 12.0 - 16.0 G/DL 01/25/2025 12:04 AM CDT [facility] HCT 24.7(L) 38.0 - 48.0 % 01/25/2025 12:04 AM CDT [facility] MCV 93.9 81.0 - 99.0 FL 01/25/2025 12:04 AM CDT [facility] MCH 29.7 27.0 - 31.0 PG 01/25/2025 12:04 AM CDT [facility] MCHC 31.6(L) 32.0 - 36.0 G/DL 01/25/2025 12:04 AM CDT [facility] RDW 18.4(H) 11.5 - 14.5 % 01/25/2025 12:04 AM CDT [facility] PLT 109(L) 130 - 400 x10'3/uL 01/25/2025 12:04 AM CDT [facility] MPV 10.9 9.3 - 12.2 FL 01/25/2025 12:04 AM CDT [facility] DIFFERENTIAL TYPE MANUAL DIFFERENTIAL 01/25/2025 12:32 AM CDT [facility] SEG NEUTROPHILS 4 % 12:32 AM CDT [facility] LYMPHOCYTES 95 % 01/25/2025 12:32 AM CDT [facility] MONOCYTES 1 % 01/25/2025 12:32 AM CDT [facility] ABS. NEUTROPHILS 0.84(L) 1.80 - 7.70 x10'3/uL 01/25/2025 12:32 AM CDT [facility] ABS. LYMPHOCYTES 19.99(H) 1.00 - 4.80 x10'3/uL 01/25/2025 12:32 AM CDT [facility] ABS. MONOCYTES 0.21(L) 0.24 - 0.86 x10'3/uL 01/25/2025 12:32 AM CDT [facility] RBC MORPHOLOGY RBC MORPHOLOGY APPEARS NORMAL. SLIDE REVIEWED. 01/25/2025 12:32 AM CDT [facility] PLT EST. ADEQUATE 01/25/2025 12:32 AM CDT [facility] 01/24/2025 11:2 9 PM CDT Koko Rankni MD,PHD LABORATORY Final Resu lt [facility] [address] [place] [address], [place] [phone] documented in this encounter Visit Diagnoses Diagnosis Mucositis- Primary Stomatitis and mucositis, unspecified Pain due to dental caries documented in this encounter Administered Medications Inactive Administered Medications - up to 3 most recent administrations Medication Order MAR Action Action Date Dose Rate Site HYDROmorphone (DILAUDID) injection 0.5 mg 0.5 mg, Intravenous, Once, 1 dose, On Fri01/25/25 at 0115, Administer slowly over at least 2-3 minutes. Given 01/25/2025 1:09 AM CDT 0.5 mg ketorolac (TORADOL) injection 15 mg 15 mg, Intravenous, Once, 1 dose, On Fri01/25/25 at 0000, For IV administration, give over 15 seconds. Given 01/24/2025 11:59 PM CDT 15 mg ketorolac (TORADOL) injection 15 mg 15 mg, Intravenous, Once, 1 dose, On Fri01/25/25 at 0030, For IV administration, give over 15 seconds. Given 01/25/2025 12:24 AM CDT 15 mg lactated ringers bolus infusion 1,000 mL 1,000 mL, Intravenous, Administer over 30 Minutes, Once, 1 dose, On e 01/25/25 at 0045 New Bag 01/25/2025 12:50 AM CDT 1,000 mLs 2000 mL/hr lidocaine viscous (XYLOCAINE) 2 % solution 15 mL 15 mL, Mouth/Throat, Once, 1 dose, On Fri01/25/25 at 0000, Shake Well. Dilute dose in 10 mL water and rinse and spit. Given 01/25/2025 12:27 AM CDT 15 mLs morphine injection 2 mg 2 mg, Intravenous, Once, 1 dose, On Fri01/25/25 at 0000 Given 01/25/2025 12:20 AM CDT 2 mg ondansetron (ZOFRAN) injection 4 mg 4 mg, Intravenous, Once, 1 dose, On Fri01/25/25 at 0000, IV push over 2-5 minutes. Given 01/24/2025 11:57 PM CDT 4 mg oxyCODONE immediate release (ROXICODONE) immediate release tablet 10 mg 10 mg, Oral, Once, 1 dose, On Fri01/25/25 at 0000 Given 01/25/2025 12:04 AM CDT 10 mg documented in this encounter Active and Recently Administered Medications Times are shown in CDT. Scheduled Medication Order 01/23/2025 01/24/2025 01/25/2025 HYDROmorphone (DILAUDID) injection 0.5 mg (COMPLETED) 0.5 mg, Intravenous, Once, 1 dose, On Fri01/25/25 at 0115, Administer slowly over at least 2-3 minutes. 0109 (Given - Provid er: Stephenie Wood RN) ketorolac (TORADOL) injection 15 mg (COMPLETED) 15 mg, Intravenous, Once, 1 dose, On e 01/25/25 at 0000, For IV administration, give over 15 seconds. 2359 (Given - Provider: Stephenie Wood RN) ketorolac (TORADOL) injection 15 mg (COMPLETED) 15 mg, Intravenous, Once, 1 dose, On e 01/25/25 at 0030, For IV administration, give over 15 seconds. 0024 (Given - Provid er: Stephenie Wood RN) lactated ringers bolus infusion 1,000 mL (COMPLETED) 1,000 mL, Intravenous, Administer over 30 Minutes, Once, 1 dose, On e 01/25/25 at 0045 0050 (New Bag - Provider: Stephenie Wood RN)0114 (Infusion Stop Time - Provider: Stephenie Wood RN) lidocaine viscous (XYLOCAINE) 2 % solution 15 mL (COMPLETED) 15 mL, Mouth/Throat, Once, 1 dose, On e 01/25/25 at 0000, Shake Well. Dilute dose in 10 mL water and rinse and spit. 0027 (Given - Provid er: Stephenie Wood RN) morphine injection 2 mg (COMPLETED) 2 mg, Intravenous, Once, 1 dose, On 01/25/25 at 0000 0020 (Given - Provid er: Stephenie Wood RN) ondansetron (ZOFRAN) injection 4 mg (COMPLETED) 4 mg, Intravenous, Once, 1 dose, On e 01/25/25 at 0000, IV push over 2-5 minutes. 2357 (Given - Provider: Stephenie Wood RN) oxyCODONE immediate release (ROXICODONE) immediate release tablet 10 mg (COMPLETED) 10 mg, Oral, Once, 1 dose, On e 01/25/25 at 0000 0004 (Given - Provid er: Stephenie Wood RN) documented in this encounter Care Teams Duplication Specialist Relationship Specialty Start Date End Date None, Provider, PCP - General UNKNOWN PHYSICIAN SPECIALTY 11/19/22 documented as of this encounter
--- OUTSIDE RECORDS SUMMARY | 2025-01-24 23:15 | XMS_ITS | Encounter Summary ---
Author Organization [facility] Address [address] [place] [address] Care Team Providers Care Rn Surgery Icu Name Role Phone None, Provider MD Primary Care Provider Unavaila ble Reason for Visit * Reason Comments Mouth Sores Encounter Details Date Type Department Care Team (Late st Contact Info) Description 01/24/2025 11:15 PM CDT - 01/25/2025 1:40 AM CDT Emergency [facility] Emergency Room [address], [place] [id number] Koko Rankin MD,PHD [address] [place], [place] [id number] Mouth Sores Discharge Disposition: Home or Self [...] PM CDT Stephenie Wood RN Active * [place] Suicide Severity Rating Scale (Screener/Recent Self-Report) Question [...] sent through Care Everywhere. * Mouth sores ([place]) documented in this encounter Medications at Time [...] in police being called. 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 from chemotherapy over [...] PREG SCREEN-SERUM NEGATIVE 01/25/2025 12:11 AM CDT [facility] 01/24/2025 11:2 9 PM CDT us Koko Rankin MD,PHD LABORATORY Final Resu lt [facility] [address] [place] [address], [place] [phone] * COMPREHENSIVE METABOLIC PANEL (01/24/2025 11:29 PM CDT) Pathologist [facility] GLUCOSE 88 70 - 99 MG/DL 01/25/2025 12:20 AM CDT [facility] BUN 17 7 - 18 MG/DL 01/25/2025 12:20 AM CDT [facility] CREATININE S/P/B 0.87 0.55 - 1.02 MG/DL 01/25/2025 12:20 AM CDT [facility] SODIUM S/P/B 138 136 - 145 MMOL/L 01/25/2025 12:20 AM CDT [facility] POTASSIUM S/P/B 4.1 3.5 - 5.1 MMOL/L 01/25/2025 12:20 AM CDT [facility] CHLORIDE S/P/B 101 97 - 115 MMOL/L 01/25/2025 12:20 AM CDT [facility] CO2 31.4 21 - 32 MMOL/L 01/25/2025 12:20 AM CDT [facility] CALCIUM S/P/B 9.1 8.5 - 10.1 MG/DL 01/25/2025 12:20 AM CDT [facility] BILIRUBIN TOTAL S/P/B 0.4 0.2 - 1.2 MG/DL 01/25/2025 12:20 AM T [facility] Comment: THIS ASSAY IS NOT RECOMMENDED FOR PATIENTS UNDERGOING TREATMENT WITH ELTROMBOPAG DUE TO THE POTENTIAL FOR FALSELY ELEVATED RESULTS. TOTAL PROTEIN S/P/B 6.4 6.4 - 8.2 G/DL 01/25/2025 12:20 AM CDT [facility] ALBUMIN S/P/B 3.5 3.4 - 5.0 G/DL 01/25/2025 12:20 AM CDT [facility] AST 22 15 - 37 U/L 01/25/2025 12:20 AM T [facility] ALT 26 14 - 55 U/L 01/25/2025 12:20 AM CDT [facility] ALKALINE PHOSPHATASE S/P/B 119 50 - 136 U/L 01/25/2025 12:20 AM T [facility] ANION GAP 5.6 2 - 10 MMOL/L 01/25/2025 12:20 AM T [facility] BUN CREATININE RATIO 19.5 6 - 26 01/25/2025 12:20 AM T [facility] A/G RATIO 1.2 1.0 - 2.0 RATIO 01/25/2025 12:20 AM [facility] GFR ESTIMATE >90 >90 ML/MIN/1.7 3 M2 01/25/2025 12:20 AM T [facility] Comment: NOTE: eGFR is not calculated [...] Koko Rankin MD,PHD LABORATORY Final Resu lt [facility] [address] [place] [address], [place] [phone] * (ABNORMAL) CBC W/DIFF AUTOMATED (01/24/2025 11:29 PM CDT) [facility] Signature WBC 21.04(H) 4.5 - 11.0 x10'3/uL 01/25/2025 12:04 AM CDT [facility] RBC 2.63(L) 4.20 - 5.40 x10'6/uL 01/25/2025 12:04 AM CDT [facility] HGB 7.8(L) 12.0 - 16.0 G/DL 01/25/2025 12:04 AM CDT [facility] HCT 24.7(L) 38.0 - 48.0 % 01/25/2025 12:04 AM CDT [facility] MCV 93.9 81.0 - 99.0 FL 01/25/2025 12:04 AM CDT [facility] MCH 29.7 27.0 - 31.0 PG 01/25/2025 12:04 AM CDT [facility] MCHC 31.6(L) 32.0 - 36.0 G/DL 01/25/2025 12:04 AM CDT [facility] RDW 18.4(H) 11.5 - 14.5 % 01/25/2025 12:04 AM CDT [facility] PLT 109(L) 130 - 400 x10'3/uL 01/25/2025 12:04 AM CDT [facility] MPV 10.9 9.3 - 12.2 FL 01/25/2025 12:04 AM CDT [facility] DIFFERENTIAL TYPE MANUAL DIFFERENTIAL 01/25/2025 12:32 AM CDT [facility] SEG NEUTROPHILS 4 % 12:32 AM CDT [facility] LYMPHOCYTES 95 % 01/25/2025 12:32 AM CDT [facility] MONOCYTES 1 % 01/25/2025 12:32 AM CDT [facility] ABS. NEUTROPHILS 0.84(L) 1.80 - 7.70 x10'3/uL 01/25/2025 12:32 AM CDT [facility] ABS. LYMPHOCYTES 19.99(H) 1.00 - 4.80 x10'3/uL 01/25/2025 12:32 AM CDT [facility] ABS. MONOCYTES 0.21(L) 0.24 - 0.86 x10'3/uL 01/25/2025 12:32 AM CDT [facility] RBC MORPHOLOGY RBC MORPHOLOGY APPEARS NORMAL. SLIDE REVIEWED. 01/25/2025 12:32 AM CDT [facility] PLT EST. ADEQUATE 01/25/2025 12:32 AM CDT [facility] 01/24/2025 11:2 9 PM CDT Koko Rankin MD,PHD LABORATORY Final Resu lt [facility] [address] [place] [address], [place] [phone] documented in this encounter Visit Diagnoses Diagnosis [...] at 0045 0050 (New Bag - Provider: Stepehnie Wood RN)0114 (Infusion Stop Time - Provider: [...] RN) documented in this encounter Care Teams Rn Surgery Icu Relationship Specialty Start Date End Date None, Provider, PCP - General UNKNOWN PHYSICIAN SPECIALTY 11/19/22 documented as of this encounter
--- NOTE | 2025-01-25 19:59 | PC.NURSE ---
Pt. called to be triaged. No response in [place]. Per intake nurse Angie pt. stepped outside.
--- OUTSIDE RECORDS SUMMARY | 2025-01-25 20:11 | XMS_ITS | Clinical Summary ---
Author Organization [facility] Address [address] [place] [address] Phone Care Team Providers Care Forging Die Sinker Name Role Phone Gabriel Salmeron MD Unavailable [phone] Brooks Sosa MD Unavailable [phone] Provider, None Primary Care Provider UnavailKervin Rubi [...] current use Anxiety 05/07/2023 Under care of group home service 05/07/2023 Overview (05/07/2023): Two previous stays at group home Child living with her parents Resolved Problems Problem Noted Date Diagnosed Date Resolved Date LRTI (lower respiratory tract infection) 09/09/2023 11/26/2023 Lymphoma 05/07/2023 10/29/2023 Overview (05/21/2023): Resistant to care No show ONC Refusing hospice 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/21/2023): Current cannabis; 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 Hx of group home time Immunizations Immunization Administration Dates Next Due Influenza Vaccine, Quadrivalent, PF 04/02/2022 TDAP Vaccine 02/06/2022,11/05/2020 Family History Medical History Relation Name Comments No Known Problems Father Cancer Mother Osteoarthritis Mother Relation Name Status Comments Brother Alive Father Alive Mother Alive Social History Tobacco Use Types Packs/Day Years Used Date Smoking Tobacco: Every Day Cigarettes 1 14.8 Started: 04/07/2010 Passive Smoke Exposure: Current Smokeless Tobacco: Never Tobacco Cessation:Ready to Q uit: Yes; Counseling Given: Yes Alcohol Use Standard Drinks/Week Comments Yes 2 (1 standard drink = 0.6 oz pur e alcohol) occasional C Utilities Answer Date Recorded In the past 12 months has [employer] electric, gas, oil, or water company threatened [...] week 05/07/2023 How often do you attend latter day or shinto serv ices? Never 05/07/2023 Do you belong to any clubs o r organizations such as latter day groups, unions, fraternal or athletic groups, or [...] Total Score - Questions 1-9 9 06/06 [facility] [place] of Occupat ional Health - Occupational Stress [...] place to sleep or slept in a longterm (including now)? 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 Legal Sex Female 5:17 PM CDT Gender Identity Female 05/21/2023 11:44 AM GOLF PLAYER ASSISTANT Sexual Orientation Not on file Last Filed [...] 2 - PCV) 02/21/2011 Pap Smear 02/21/2013 Human Papillomavirus (HPV) Immunization (1 - Risk 3-dose SCDM series) 02/21/2019 SARS-COV-2 Immunization (3 - Pfizer risk series) 12/25/2020 11/27/2020, 11/06/2020 Cervical Cancer Screening (CCS) 02/21/2022 HPV/Cotest 02/21/2022 Influenza Immunization (#1) 2024 01/0 07/2024, 04/02/2022 Td Immunization Every 10 Yea rs (Adults With 1 Tdap) 02/07/2032 02/06/2022, 11/05/2020 Respiratory Syncytial Virus (RSV) Immunization (Adult) (1 - 1-dose 75+ series) 02/21/2067 DTaP/Tdap/Td Immunization Discontinued 2021, 11/05/2020 Meningococcal Immunization (ACWY) Aged Out No longer [...] Ready to change Department associated with goal: [facility] Steps to achieve [...] a triggering event occurs Insurance MEDICAID [facility] Care Teams Forging Die Sinker Relationship Specialty Start Date End Date Provider, None [place] PCP - General 06/17/24 Gabriel Salmeron MD [address] [place] [address] Consulting Physician Medical Oncology 05/23/23 Brooks Sosa MD [address] [place] [id number] Consulting Physician Neurology 01/22/24 Kervin Jiang MD [address] [address] Consulting Physician General Surgery 06/11/24
--- OUTSIDE RECORDS SUMMARY | 2025-01-25 20:11 | XMS_ITS ---
Author Organization [facility] Address [address] [place] [address] Phone Care Team Providers Care Senior Payroll Administrator Name Role Phone Gabriel Salmeron MD Unavailable [phone] Brooks Sosa MD Unavailable [phone] Provider, None Primary Care Provider UnavailKervin Rubi MD Unavailable [facility] Status:Enrolled (Active) Start date:05/05/2024 Enrollment date:05/05/2024 Related social drivers of health:Social Connections, Tobacco Use, Depression, Stress, Physical Activity, Utilities Continued Care and Services Coordination
--- OUTSIDE RECORDS SUMMARY | 2025-01-25 20:11 | XMS_ITS ---
Author Organization [facility] [address] [facility] Address [address] [place] [address] Care Team Providers Care Discharging 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 Name Role Phone Ramy Aguilera MD Unavailable [phone] Satya Fernandez MD Primary Care Provider Active Problems Problem Noted Date Diagnosed Date Prevention of chemotherapy-induced neutropenia 0 12/17/2024 Anxiety and depression 09/24/2024 Assessment & Plan [...] - Plan to discharge patient with outpatient [facility] follow-up on 09/30/24. Assessment & Plan (09/23/2024 [...] - NRT Current Treatment and Therapy Plans CHOP (CVP) + O (Cyclophosphamide / VinCRIStine / PredniSONE / DOXORUBICIN / oBINutuzumab) 21 Day Cycles - NHL* Plan Start Date:10/04/2024 Plan Provider:Ramy Aguilera MD Linked Problems Follicular lymphoma, unspeci fied follicular lymphoma type, unspecified body region (HCC)Prevention of chemotherapy-induced neutropenia Treatment Medications Current Day (Day 1 , Cycle 3 CHOP - Planned for 02/03/2025) Next Day (Day 1, Cycle 4 - CHOP (+ obin??) - Planned for 02/24/2025) cycloPHOSphamide (CYTOXAN)cycloPHOSphamide IVPB in 250 mL (vial 200 mg/mL)(J9073)dexAMETHasone (DECADRON)DOXOrubicin (ADRIAMYCIN)DOXOrubicin (ADRIAMYCIN) 2 mg/mLoBINUtuzumab (GAVYZA)oBINutuzumab (GAZYVA) IVPB 1,000 mg in 290 mLvinCRIStinevinCRIStine (ONCOVIN) IVPB in 50 mL cycloPHOSphamide (J9073) 1,140 mg in sodium chloride 0.9% 250 mL IVPBDOXOrubicin (ADRIAMYCIN) 2 mg/mL IV syringe 76 mg 38 mLvinCRIStine (ONCOVIN) 2 mg in sodium chloride 0.9% 50 mL IVPB cycloPHOSphamide (J9073) 1,140 mg in sodium chloride 0.9% 250 mL IVPBDOXOrubicin (ADRIAMYCIN) 2 mg/mL IV syringe 76 mg 38 mLoBINutuzumab (GAZYVA) 1,000 mg in sodium chloride 0.9% 290 mL IVPBvinCRIStine (ONCOVIN) 2 mg in sodium chloride 0.9% 50 mL IVPB IV Maintenance Therapy Plan* Plan Start Date:11/18/2024 Plan Provider:Ramy Aguilera MD Linked Problems Follicular lymphoma, unspeci fied follicular lymphoma type, unspecified body region (HCC) Treatment Medications No medications scheduled. Past Treatment and Therapy Plans Line Care Plan Name Start Date Discontinue Date Treatment Medications Discontinue Reason Plan Provider IV Maintenance Therapy Plan 11/18/2024 11/18/2024 No medications scheduled. Therapy Complete Ramy Aguilera MD Lifetime Dose Tracking * Chemical Lifetime Dose Automatic Entry Manual Entr y doxorubicin 95.679 mg/m2 (150 mg) 95.679 mg/m2 (150 mg) 0 mg/m2 (0 mg) cyclophosphamide 1,441.358 mg/m2 (2,260 mg) 1,441.358 mg/m2 (2,260 mg) 0 mg/m2 (0 mg) doxorubicin isotoxic equivalent (Please manually verify calculation) 95.679 mg/m2 (150 mg) 95.679 mg/m2 (150 mg) 0 mg/m2 (0 mg)
--- OUTSIDE RECORDS SUMMARY | 2025-01-25 20:11 | XMS_ITS ---
Author Organization [facility] Address [address] [place] [address] Phone Care Team Providers Care Pacu Rn Name Role Phone Gabriel Salmeron MD Unavailable [...] current use Anxiety 05/07/2023 Under care of fdc service 05/07/2023 Overview (05/07/2023): Two previous stays at fdc Child living with her parents Current Treatment [...] 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 Hx of fdc time
--- OUTSIDE RECORDS SUMMARY | 2025-01-25 20:12 | XMS_ITS | Clinical Summary ---
Author Organization [facility] Address [address] [place] [address] Care Team Providers Care Nut Cracker Name Role Phone Unavailable Primary Care Provider Unavailabl e Source Comments [facility] [employer],non-owned Affiliates and Associated Physician Practices is amultiple site organization consisting of ambulatory clinics and hospital sitesin [place], [place], [place] and [place]. This disclosure is being madepursuant to the Care Everywhere program and may not contain all information available regarding this patient. Last updated 17.[facility] [employer] Social History Tobacco Use Types Packs/Day Years [...] 19+ 3-dose series) 02/21/2011 PAP SMEAR 02/21/2013 HPV VACCINE (1 - 3-dose SCDM series) 02/21/2019 DEPRESSION SCREENING 04/07/2024 COVID-19 VACCINE (1 - 2023-2 5 season) 2024 INFLUENZA VACCINE (#1) 2024 ZOSTER VACCINE (1 [...] patient's age to complete this topic Insurance [facility]
--- OUTSIDE RECORDS SUMMARY | 2025-01-25 20:12 | XMS_ITS | Clinical Summary ---
Author Organization [place] [id number] [facility] Address [address] [place] [address] Care Team Providers [employer] Name Role Phone Ramy Aguilera MD Unavailable [phone] Satya Fernandez MD Primary Care Provider [phone] Allergies Active Allergy Reactions Criticality Noted Date Comments Azithromycin Vomiting Low 04/07/2022 Codeine Nausea only Low 09/21/2024 Diphenhydramine Muscle pain,Other (S ee comments),Unknown Medium 06/13/2023 Idiopathic reaction--hyperactivit y Restless leg Idiopathic reaction--hyperactivit y Restless leg Obinutuzumab Shortness of breath,Diarrhea,Stomach upset,Chest tightness,Nausea & Vomiting High 10/07/2024 Rituximab Other (See comments) High 09/21/2024 Pt reports my lips turned blue and I stopped breathing Medications buprenorphine-nalo xone (SUBOXONE) 8-[address] 1 Film under the tongue daily 2 Film 12/18/19 24 Active acetaminophen (TYLENOL) 650 mg suppository Insert 1 suppository (650 mg total) into the rectum every 4 (four) hours as needed for pain Active ibuprofen (ADVIL,MOTRIN) 400 mg tablet Take 1 tablet (400 mg total) by mouth every 6 (six) hours as needed for pain Active sertraline (ZOLOFT) 50 mg tablet Take 1 tablet (50 mg total) by mouth daily 30 tablet 09/26/19 25 Active clonazePAM (KlonoPIN) 0.25 mg disintegrating tabletIndications: Panic Disorder Take 1 tablet (0.25 mg total) by mouth 2 (two) times a day 60 tablet 09/25/19 25 Active Additional Information Patient taking differently: 1 mgoral3 times daily, Indications: Panic Disorder, Reported on 01/13/2025 oxyCODONE (ROXICODONE) 5 mg immediate release tabletIndications: Pain Take 1 tablet (5 mg total) by mouth every 6 (six) hours as needed for pain 28 tablet 09/25/19 25 Active naloxone (NARCAN) 4 mg/actuation spray,non-aerosol Administer 1 spray into affected nostril(s) as needed for opioid reversal Call 911. Administer a single spray in one nostril. Repeat every 3 minutes as needed if no or minimal response. 1 each 09/25/19 25 Active acetaminophen (TYLENOL) 500 mg tablet Take 1 tablet (500 mg total) by mouth every 6 (six) hours as needed for pain Active omeprazole OTC (PriLOSEC OTC) 20 mg EC tablet Take 1 tablet (20 mg total) by mouth daily 30 tablet 2 10/01/19 25 025 Active Additional Information Patient not taking.Reported on 01/13/2025 predniSONE (DELTASONE) 50 mg tabletIndications: Follicular lymphoma, unspecified follicular lymphoma type, unspecified body region (HCC) Take 1 tablet (50 mg) by mouth daily Take on days 2-6 of each treatment cycle. 5 tablet 10/08/19 25 Active predniSONE (DELTASONE) 50 mg tabletIndications: Follicular lymphoma, unspecified follicular lymphoma type, unspecified body region (HCC) Take 2 tablets (100 mg) by mouth daily Take on days 1-5 of each treatment cycle. 10 tablet 10/29/19 25 Active predniSONE (DELTASONE) 50 mg tabletIndications: Follicular lymphoma, unspecified follicular lymphoma type, unspecified body region (HCC) Take 2 tablets (100 mg) by mouth daily Take on days 2-6 of each treatment cycle. 10 tablet 11/19/19 25 Active L. acidophilus-dig enz cmb 5 5-250 mg capsule Take by mouth Active predniSONE (DELTASONE) 50 mg tabletIndications: Follicular lymphoma, unspecified follicular lymphoma type, unspecified body region (HCC),Prevention of chemotherapy-induc ed neutropenia Take 2 tablets (100 mg) by mouth daily Take on days 2-6 of each treatment cycle. 10 tablet 12/24/19 25 Active ondansetron ODT (ZOFRAN-ODT) 4 mg disintegrating tablet Take 2 tablets (8 mg total) by mouth every 8 (eight) hours as needed for nausea or vomiting 20 tablet 2 12/24/19 25 Active predniSONE (DELTASONE) 50 mg tabletIndications: Follicular lymphoma, unspecified follicular lymphoma type, unspecified body region (HCC),Prevention of chemotherapy-induc ed neutropenia Take 2 tablets (100 mg) by mouth daily Take on days 2-6 of each treatment cycle. 10 tablet 01/14/20 25 Active acyclovir (ZOVIRAX) 200 mg capsuleIndications :Skin/Soft Tissue Infection Take 2 capsules (400 mg total) by mouth 2 (two) times a day 120 capsule 01/14/20 25 Active allopurinoL (ZYLOPRIM) 300 mg tabletIndications: Follicular lymphoma, unspecified follicular lymphoma type, unspecified body region (HCC) Take 1 tablet (300 mg total) by mouth daily for 20 days Start 48 hours prior to starting treatment. 20 tablet 01/15/20 25 025 Active allopurinoL (ZYLOPRIM) 300 mg tabletIndications: Follicular lymphoma, unspecified follicular lymphoma type, unspecified body region (HCC) Take 1 tablet (300 mg total) by mouth daily for 10 days Start 48 hours prior to starting treatment. 10 tablet 10/07/19 25 025 Discontin ued(Reord er) allopurinoL (ZYLOPRIM) 300 mg tabletIndications: Follicular lymphoma, unspecified follicular lymphoma type, unspecified body region (HCC) Take 1 tablet (300 mg total) by mouth daily for 20 days Start 48 hours prior to starting treatment. 20 tablet 12/28/19 25 025 Discontin ued(Reord er) Active Problems Problem Noted Date Diagnosed Date [...] Encounters Date Type Department Care Team Description 01/18/2025 Social Work [facility] [address] [place] [phone] Desirae Bates LCSW 01/13/2025 12:00 PM CDT Clinical Support [facility] Medical [facility] Building 2 Radiation Oncology [address] [place] [id number] Follicular lymphoma, unspecified follicular lymphoma type, unspecified body region (HCC) (Primary Dx) 01/13/2025 10:30 AM CDT Infusion [address] [phone] Prevention of chemotherapy-induced neutropenia (Primary Dx); Follicular lymphoma, unspecified follicular lymphoma type, unspecified body region (HCC) 01/13/2025 10:00 AM CDT Office Visit [facility] [address] [place] [phone] Ramy Aguilera MD Follicular lymphoma, unspecified follicular lymphoma type, unspecified body region (HCC) (Primary Dx); Prevention of chemotherapy-induced neutropenia 01/13/2025 9:30 AM CDT Lab [address] [address] Follicular lymphoma, unspecified follicular lymphoma type, unspecified body region (HCC); Prevention of chemotherapy-induced neutropenia 01/12/2025 Orders Only [facility] [address] [place] [phone] Ramy Aguilera MD 12/30/2024 Orders Only [facility] [place] at [address] [place] [phone] Paulina German RPh 12/23/2024 10:30 AM CDT Infusion [address] [place] [address] Prevention of chemotherapy-induced neutropenia (Primary Dx); Follicular lymphoma, unspecified follicular lymphoma type, unspecified body region (HCC) 12/23/2024 10:00 AM CDT Office Visit [facility] [address] [place] [phone] Ramy Aguilera MD Follicular lymphoma, unspecified follicular lymphoma type, unspecified body region (HCC) (Primary Dx); Prevention of chemotherapy-induced neutropenia 12/23/2024 9:30 AM CDT Lab [address] [address] Follicular lymphoma, unspecified follicular lymphoma type, unspecified body region (HCC); Prevention of chemotherapy-induced neutropenia 12/22/2024 Orders Only [facility] [address] [place] [phone] Ramy Aguilera MD 12/16/2024 Orders Only [address] [phone] Paulina German RPh 12/15/2024 8:06 AM CDT - 12/15/2024 11:59 PM CDT Hospital Encounter [facility] Building [address] [place] [address] Follicular lymphoma, unspecified follicular lymphoma type, unspecified body region (HCC) Discharge Disposition: Discharge to home or self care 12/09/2024 10:00 AM CDT Office Visit [facility] [address] [place] [address] [phone] Paige Giordano NP Follicular lymphoma, unspecified follicular lymphoma type, unspecified body region (HCC) (Primary Dx) 12/09/2024 9:30 AM CDT Lab [facility] at [address] [address] Follicular lymphoma, unspecified follicular lymphoma type, unspecified body region (HCC) 11/18/2024 8:45 AM CDT Infusion [facility] at [address] [phone] Follicular lymphoma, unspecified follicular lymphoma type, unspecified body region (HCC) (Primary Dx) 11/18/2024 8:15 AM CDT Office Visit [facility] [address] [place] [phone] Ramy Aguilera MD Follicular lymphoma, unspecified follicular lymphoma type, unspecified body region (HCC) (Primary Dx); Diarrhea, unspecified type 11/18/2024 7:45 AM CDT Lab [facility] at [address] [address] Follicular lymphoma, unspecified follicular lymphoma type, unspecified body region (HCC); Diarrhea, unspecified type 11/18/2024 Orders Only [facility] [address] [place] [phone] Ramy Aguilera MD 10/28/2024 8:45 AM CDT Infusion [facility] at [address] [phone] Follicular lymphoma, unspecified follicular lymphoma type, unspecified body region (HCC) (Primary Dx) 10/28/2024 8:15 AM CDT Lab [facility] at [address] [address] Follicular lymphoma, unspecified follicular lymphoma type, unspecified body region (HCC) 10/25/2024 Orders Only [facility] [address] [place] [phone] Ramy Aguilera MD from Last 3 Months Immunizations Immunization [...] often do you have a drink containing alcohol? 2-4 times a month 10/21/2024 Q2: How many drinks containi ng alcohol do you have on a typical day when you are drinking? Patient does not drink Q3: How often do you have si x or more drinks on one occasion? Weekly 10/21/2024 Personal Safety Answer Date Recorded Have you [...] Sign Reading Time Taken Comments Blood Pressure 132/78 01/13/2025 10:12 AM CDT Pulse 88 01/13/2025 10:12 AM CDT Temperature 36.8 C (98.2 F) 01/13/2025 10:12 AM CDT Respiratory Rate 18 01/13/2025 10:12 AM CDT Oxygen Saturation 98% 01/13/2025 10:12 AM CDT Inhaled Oxygen Concentration - - Weight 52.8 kg (116 lb 6.5 oz) 01/13/2025 10:12 AM CDT Height 158.5 cm (5' 2.4) 12/23/2024 10:45 AM CD T Body Mass Index 21.02 12/23/2024 10:45 AM CDT Plan of Treatment Health Maintenance Due Date Last Done Comments Cervical Cancer Screening 1992 Depression Screening 1992 Hepatitis C Screening 1992 Varicella Vaccines (1 of 2 - 13+ 2-dose series) 02/21/2005 Hepatitis B Screening 02/21/2010 Regular Well Visit/Exam 18-64 02/21/2010 Pneumococcal vaccine <65 (1 of 2 - PCV) 02/21/2011 Zoster Vaccine (1 of 2) 02/21/2011 HPV Vaccines (1 - 3-dose SCDM series) 02/21/2019 Covid-19 Vaccine (3 - Pfizer risk series) 12/25/2020 11/27/2020, 11/06/2020 Influenza Vaccine (#1) 2024 04/02/2022 DTaP/Tdap/Td Vaccine (3 - Td or Tdap) 02/07/203205/2021, 11/05/2020 Procedures Procedure Name Priority Date/Time Associated Diagnosis Comments BLOOD SMEAR REVIEW Routine 01/13/2025 10:00 AM CDT Follicular lymphoma, unspecified follicular lymphoma type, unspecified body region (HCC) Prevention of chemotherapy-jeanie hany neutropenia EGFR STAT 01/13/2025 10:00 AM CDT Follicular lymphoma, unspecified follicular lymphoma type, unspecified body region (HCC) Prevention of chemotherapy-jeanie hany neutropenia DIFFERENTIAL AUTO Routine 01/13/2025 10:00 AM CDT Follicular lymphoma, unspecified follicular lymphoma type, unspecified body region (HCC) Prevention of chemotherapy-jeanie hany neutropenia CBC WITH AUTO DIFFERENTIAL Routine 01/13/2025 10:00 AM CDT Follicular lymphoma, unspecified follicular lymphoma type, unspecified body region (HCC) Prevention of chemotherapy-jeanie hany neutropenia COMPREHENSIVE METABOLIC PANEL STAT 01/13/2025 10:00 AM CDT Follicular lymphoma, unspecified follicular lymphoma type, unspecified body region (HCC) Prevention of chemotherapy-jeanie hany neutropenia HCG, BLOOD, QUANTITATIVE STAT 01/13/2025 10:00 AM CDT Follicular lymphoma, unspecified follicular lymphoma type, unspecified body region (HCC) Prevention of chemotherapy-jeanie hany neutropenia URIC ACID Routine 12/23/2024 9:47 AM CDT Follicular lymphoma, unspecified follicular lymphoma type, unspecified body region (HCC) BLOOD SMEAR REVIEW Routine 12/23/2024 9: 47 AM CDT Follicular lymphoma, unspecified follicular lymphoma type, unspecified body region (HCC) Prevention of chemotherapy-jeanie hany neutropenia EGFR STAT 12/23/2024 9:47 AM CDT Follicular lymphoma, unspecified follicular lymphoma type, unspecified body region (HCC) Prevention of chemotherapy-jeanie hany neutropenia DIFFERENTIAL AUTO Routine 12/23/2024 9:4 7 AM CDT Follicular lymphoma, unspecified follicular lymphoma type, unspecified body region (HCC) Prevention of chemotherapy-jeanie hany neutropenia CBC WITH AUTO DIFFERENTIAL Routine 12/23/2024 9:47 AM CDT Follicular lymphoma, unspecified follicular lymphoma type, unspecified body region (HCC) Prevention of chemotherapy-jeanie hany neutropenia COMPREHENSIVE METABOLIC PANEL STAT 12/23/2024 9:47 AM CDT Follicular lymphoma, unspecified follicular lymphoma type, unspecified body region (HCC) Prevention of chemotherapy-jeanie hany neutropenia HCG, BLOOD, QUANTITATIVE STAT 12/23/2024 9:47 AM CDT Follicular lymphoma, unspecified follicular lymphoma type, unspecified body region (HCC) Prevention of chemotherapy-jeanie hany neutropenia PET/CT FDG SKULL TO THIGH Schedule Routine, Read Routine (OP Routine) 12/15/2024 9:47 AM CDT Follicular lymphoma, unspecified follicular lymphoma type, unspecified body region (HCC) POCT GLUCOSE DEVICE Routine 12/15/2024 8 :33 AM CDT BLOOD SMEAR REVIEW Routine 12/09/2024 9: 12 AM CDT Follicular lymphoma, unspecified follicular lymphoma type, unspecified body region (HCC) EGFR STAT 12/09/2024 9:12 AM CDT Follicular lymphoma, unspecified follicular lymphoma type, unspecified body region (HCC) DIFFERENTIAL AUTO Routine 12/09/2024 9:1 2 AM CDT Follicular lymphoma, unspecified follicular lymphoma type, unspecified body region (HCC) CBC WITH AUTO DIFFERENTIAL Routine 12/09/2024 9:12 AM CDT Follicular lymphoma, unspecified follicular lymphoma type, unspecified body region (HCC) COMPREHENSIVE METABOLIC PANEL STAT 12/09/2024 9:12 AM CDT Follicular lymphoma, unspecified follicular lymphoma type, unspecified body region (HCC) HCG, BLOOD, QUANTITATIVE STAT 12/09/2024 9:12 AM CDT Follicular lymphoma, unspecified follicular lymphoma type, unspecified body region (HCC) CRYPTOSPORIDIUM AND GIARDIA ANTIGEN ASSAY Routine 11/18/2024 9:30 AM CDT Diarrhea, unspecified type C. DIFFICILE TESTING Routine 11/18/2024 9:30 AM CDT Diarrhea, unspecified type EGFR STAT 11/18/2024 8:40 AM CDT Follicular lymphoma, unspecified follicular lymphoma type, unspecified body region (HCC) DIFFERENTIAL AUTO Routine 11/18/2024 8:4 0 AM CDT Follicular lymphoma, unspecified follicular lymphoma type, unspecified body region (HCC) CBC WITH AUTO DIFFERENTIAL Routine 11/18/2024 8:40 AM CDT Follicular lymphoma, unspecified follicular lymphoma type, unspecified body region (HCC) COMPREHENSIVE METABOLIC PANEL STAT 11/18/2024 8:40 AM CDT Follicular lymphoma, unspecified follicular lymphoma type, unspecified body region (HCC) HCG, BLOOD, QUANTITATIVE STAT 11/18/2024 8:40 AM CDT Follicular lymphoma, unspecified follicular lymphoma type, unspecified body region (HCC) EGFR STAT 10/28/2024 8:25 AM CDT Follicular lymphoma, unspecified follicular lymphoma type, unspecified body region (HCC) DIFFERENTIAL AUTO Routine 10/28/2024 8:2 5 AM CDT Follicular lymphoma, unspecified follicular lymphoma type, unspecified body region (HCC) LACTATE DEHYDROGENASE Routine 10/28/2024 8:25 AM CDT Follicular lymphoma, unspecified follicular lymphoma type, unspecified body region (HCC) CBC WITH AUTO DIFFERENTIAL Routine 10/28/2024 8:25 AM CDT Follicular lymphoma, unspecified follicular lymphoma type, unspecified body region (HCC) COMPREHENSIVE METABOLIC PANEL STAT 10/28/2024 8:25 AM CDT Follicular lymphoma, unspecified follicular lymphoma type, unspecified body region (HCC) HCG, BLOOD, QUANTITATIVE STAT 10/28/2024 8:25 AM CDT Follicular lymphoma, unspecified follicular lymphoma type, unspecified body region (HCC) from Last 3 Months Results * (ABNORMAL) Blood smear review (01/13/2025 10:00 AM CDT) RBC morphology Consistent with RBC Indicies Comment:Testing performed by : [address] [address] Anisocytosis Slight(A) JOSELYN VAZ[place]Z Comment:Testing performed by : [address] [address] Platelet estimate Adequate JOSELYN VAZQUEZ Comment:Testing performed by : [address] [address] Blood 01/13/2025 10:0 0 AM CDT 01/13/2025 10:02 AM CDT us Ramy Aguilera MD LAB BLOOD ORDERABLES Final R esult JOSELYN VAZQUEZ [address] [facility] Department [place] [address] * eGFR (01/13/2025 10:00 AM CDT) eGFR >90 >=60 mL/min/1. 73 [...] was last reviewed 2021. Testing performed by: [address] [address] Blood 01/13/2025 10:0 0 AM CDT 01/13/2025 10:02 AM CDT us Ramy Aguilera MD LAB BLOOD ORDERABLES Final R esult [facility] [address] [facility] Department [place] [address] * (ABNORMAL) Differential, auto (01/13/2025 10:00 AM CDT) Neutrophil abs 1.44(L) 1.50 - 6.50 K/cumm Comment:Testing performed by : [address] [address] Imm gran abs 0.03 0.00 - 0.10 K/cumm JOSELYN VAZQUEZ Comment:Testing performed by : [address] [address] Lymphocyte abs 17.55(H) 0.80 - 3.30 K/cumm JOSELYN Comment:Testing performed by : [address], [place]., [address] Monocyte abs 0.33 0.20 - 0.80 K/cumm [facility] Comment:Testing performed by : [address], [place]., [address] Eosinophil abs 0.04 0.00 - 0.50 K/cumm [facility] Comment:Testing performed by : [address], [place]., [address] Basophil abs 0.10 0.00 - 0.10 K/cumm [facility] Comment:Testing performed by : [address] [address] Neutrophil pct 7.4 % [facility] Comment: Interpretive Data Percent cell count reference ranges are not reported, since discordance with absolute values may lead to misinterpretation of CBC data. Current Interpretive Data was last revised on 2017. Testing performed by: [address] [address] Imm gran pct 0.2 % [facility] Comment: Interpretive Data Percent cell count reference ranges are not reported, since discordance with absolute values may lead to misinterpretation of CBC data. Current Interpretive Data was last revised on 2017. Testing performed by: [address] [address] Lymphocyte pct 90.0 % [facility] Comment: Interpretive Data Percent cell count reference ranges are not reported, since discordance with absolute values may lead to misinterpretation of CBC data. Current Interpretive Data was last revised on 2017. Testing performed by: [address] [address] Monocyte pct 1.7 % [facility] Comment: Interpretive Data Percent cell count reference ranges are not reported, since discordance with absolute values may lead to misinterpretation of CBC data. Current Interpretive Data was last revised on 2017. Testing performed by: [address] [address] Eosinophil pct 0.2 % [facility] Comment: Interpretive Data Percent cell count reference ranges are not reported, since discordance with absolute values may lead to misinterpretation of CBC data. Current Interpretive Data was last revised on 2017. Testing performed by: [address] [address] Basophil pct 0.5 % JOSELYN VAZQUEZ Comment: Interpretive Data Percent cell count reference ranges are not reported, since discordance with absolute values may lead to misinterpretation of CBC data. Current Interpretive Data was last revised on 2017. Testing performed by: [address] [address] Blood 01/13/2025 10:0 0 AM CDT 01/13/2025 10:02 AM CDT us Ramy Aguilera MD LAB BLOOD ORDERABLES Final R esult JOSELYN [facility] Department [place] [address] * (ABNORMAL) CBC with auto differential (01/13/2025 10:00 AM CDT) WBC 19.49(H) 3.80 - 9.90 K/cumm Comment:Testing performed by : [address] [address] Hgb 8.1(L) 11.9 - 15.5 g/dL JOSELYN VAZQUEZ Comment:Testing performed by : [address] [address] Hct 25.4(L) 35.6 - 45.5 % JOSELYN Comment:Testing performed by : [address] [address] Plt 108(L) 150 - 400 K/cumm JOSELYN VAZQUEZ Comment:Testing performed by : [address] [address] MPV 8.8(L) 9.1 - 12.3 fL JOSELYN VAZQUEZ Comment:Testing performed by : [address] [address] RBC 2.77(L) 3.90 - 5.20 M/cumm JOSELYN VAZQUEZ Comment:Testing performed by : [address] [address] MCV 91.7 81.3 - 96.4 fL JOSELYN Comment:Testing performed by : [address] [address] MCH 29.2 27.1 - 33.3 pg JOSELYN VAZQUEZ Comment:Testing performed by : [address] [address] MCHC 31.9(L) 32.3 - 35.7 g/dL JOSELYN Comment:Testing performed by : [address] [address] RDW CV 17.9(H) 11.1 - 14.9 % JOSELYN Comment:Testing performed by : [address] [address] RDW SD 59.7(H) 35.7 - 48.1 fL JOSELYN Comment:Testing performed by : [address] [address] NRBC abs 0.02(H) 0.00 - 0.01 K/cumm JO[place]N Comment:Testing performed by : [address] [address] ANC Prelim 1.44(L) 1.50 - 6.50 K/cumm JOSELYN Comment: Interpretive Data The rapid ANC is a preliminary automated count and may vary from the final ANC (Neut Abs) reported in the WBC differential that follows. Current interpretive data was last revised 2024. Testing performed by: [address] [address] Blood 01/13/2025 10:0 0 AM CDT 01/13/2025 10:02 AM CDT us Ramy Aguilera MD LAB BLOOD ORDERABLES Edited Result - Final [facility] [address] [facility] Department [place] [address] * hCG, blood, quantitative (01/13/2025 10:00 AM CDT) hCG, quant <5.0 0.0 - 5.0 IUnits/L Comment: Interpretive Data Male: < 5 IU/L Non- premenopausal Female: <5 IU/L The [employer] hCG Beta Quant assay procedure was used. Results from different manufacturers or methods may not be comparable. Serial testing should be performed using the same method. Interpretive Data was last revised on 2023 Testing performed by: [address] [address] Blood 01/13/2025 10:0 0 AM CDT 01/13/2025 10:18 AM CDT us Ramy Aguilera MD LAB BLOOD ORDERABLES Final R esult [place] [id number] [facility] Department [place] [address] * (ABNORMAL) Comprehensive metabolic panel (01/13/2025 10:00 AM CDT) Pathologist [facility] Sodium 138 135 - 145 mmol/L Comment:Testing performed by : [address] [address] Potassium, pl 3.2(L) 3.3 - 4.9 mmol/L JOSELYN Comment:Testing performed by : [address] [address] Chloride 98 97 - 110 mmol/L JOSELYN Comment:Testing performed by : [address] [address] CO2 26 22 - 32 mmol/L JOSELYN Comment:Testing performed by : [address] [address] Anion gap 14 2 - 15 mmol/L JOSELYN Comment:Testing performed by : [address] [address] BUN 6 6 - 25 mg/dL JOSELYN Comment:Testing performed by : [address] [address] Creatinine 0.70 0.60 - 1.10 mg/dL JOSELYN Comment:Testing performed by : [address] [address] Glucose 131 70 - 199 mg/dL JOSELYN Comment: Interpretive [...] was last revised 2022. Testing performed by: [address] [address] Calcium 9.0 8.5 - 10.3 mg/dL JOSELYN Comment:Testing performed by : [address] [address] Bilirubin, total 0.5 0.1 - 1.2 mg/dL JOSE[place]N Comment:Testing performed by : [address] [address] Protein, pl 5.8(L) 6.5 - 8.5 g/dL JOSELYN Comment:Testing performed by : [address] [address] Albumin 3.8 3.5 - 5.0 g/dL JOSELYN Comment:Testing performed by : [address] [address] Alk phos 238(H) 40 - 130 Units/L JOSELYN Comment:Testing performed by : [address] [address] ALT 17 7 - 45 Units/L JOSELYN Comment:Testing performed by : [address] [address] AST 30 10 - 45 Units/L JOSELYN Comment:Testing performed by : [address] [address] Blood 01/13/2025 10:0 0 AM CDT 01/13/2025 10:02 AM CDT us Ramy Aguilera MD LAB BLOOD ORDERABLES Final R esult Performing Organization Address [facility] Co de Phone Number JOSELYN [facility] [place] [address] * (ABNORMAL) Blood smear review (12/23/2024 9:47 AM CDT) RBC morphology Consistent with RBC Indicies Comment:Testing performed by : [address] [address] Anisocytosis Slight(A) JOSELYN VAZQUEZ Comment:Testing performed by : [address] [address] Platelet estimate Adequate JOSELYN Comment:Testing performed by : [address] [address] Blood 12/23/2024 9:47 AM CDT 12/23/2024 9:48 AM CDT Ramy Aguilera MD LAB BLOOD ORDERABLES Final R esult Performing Organization Address [facility] Co de Phone Number JOSELYN [address] [place] [address] * eGFR (12/23/2024 9:47 AM CDT) eGFR >90 >=60 mL/min/1. 73 [...] was last reviewed 2021. Testing performed by: [address] [address] Blood 12/23/2024 9:47 AM CDT 12/23/2024 9:48 AM CDT us Ramy Aguilera MD LAB BLOOD ORDERABLES Final R esult [facility] [address] [facility] Department [place] [address] * (ABNORMAL) Differential, auto (12/23/2024 9:47 AM CDT) Neutrophil abs 2.06 1.50 - 6.50 K/cumm Comment:Testing performed by : [address] [address] Imm gran abs 0.08 0.00 - 0.10 K/cumm JOSELYN Comment:Testing performed by : [address] [address] Lymphocyte abs 21.14(H) 0.80 - 3.30 K/cumm JOSELYN Comment:Testing performed by : [address] [address] Monocyte abs 0.37 0.20 - 0.80 K/cumm JOSELYN Comment:Testing performed by : [address] [address] Eosinophil abs 0.10 0.00 - 0.50 K/cumm JOSELYN Comment:Testing performed by : [address] [address] Basophil abs 0.09 0.00 - 0.10 K/cumm JOSELYN Comment:Testing performed by : [address] [address] Neutrophil pct 8.6 % JOSELYN Comment: Interpretive Data Percent cell count reference ranges are not reported, since discordance with absolute values may lead to misinterpretation of CBC data. Current Interpretive Data was last revised on 2017. Testing performed by: [address] [address] Imm gran pct 0.3 % [facility] Comment: Interpretive Data Percent cell count reference ranges are not reported, since discordance with absolute values may lead to misinterpretation of CBC data. Current Interpretive Data was last revised on 2017. Testing performed by: [address] [address] Lymphocyte pct 88.7 % [facility] Comment: Interpretive Data Percent cell count reference ranges are not reported, since discordance with absolute values may lead to misinterpretation of CBC data. Current Interpretive Data was last revised on 2017. Testing performed by: [address] [address] Monocyte pct 1.6 % [facility] Comment: Interpretive Data Percent cell count reference ranges are not reported, since discordance with absolute values may lead to misinterpretation of CBC data. Current Interpretive Data was last revised on 2017. Testing performed by: [address] [address] Eosinophil pct 0.4 % [facility] Comment: Interpretive Data Percent cell count reference ranges are not reported, since discordance with absolute values may lead to misinterpretation of CBC data. Current Interpretive Data was last revised on 2017. Testing performed by: [address] [address] Basophil pct 0.4 % [facility] Comment: Interpretive Data Percent cell count reference ranges are not reported, since discordance with absolute values may lead to misinterpretation of CBC data. Current Interpretive Data was last revised on 2017. Testing performed by: [address] [address] Blood 12/23/2024 9:47 AM CDT 12/23/2024 9:48 AM CDT us Ramy Aguilera MD LAB BLOOD ORDERABLES Final R esult JOSELYN [address] [place] [address] Department [place] [address] * (ABNORMAL) CBC with auto differential (12/23/2024 9:47 AM CDT) [facility] WBC 23.84(H) 3.80 - 9.90 K/cumm Comment:Testing performed by : [address] [address] Hgb 9.0(L) 11.9 - 15.5 g/dL JOSELYN Comment:Testing performed by : [address], [address] Hct 27.5(L) 35.6 - 45.5 % JOSELYN Comment:Testing performed by : [address] [address] Plt 111(L) 150 - 400 K/cumm JOSELYN Comment:Testing performed by : [address] [address] MPV 9.1 9.1 - 12.3 fL CERSUSAN Comment:Testing performed by : [address], [address] RBC 3.02(L) 3.90 - 5.20 M/cumm JOSELYN Comment:Testing performed by : [address] [address] MCV 91.1 81.3 - 96.4 fL CERSUSAN Comment:Testing performed by : [address] [address] MCH 29.8 27.1 - 33.3 pg CERSUSAN Comment:Testing performed by : [address], [address] MCHC 32.7 32.3 - 35.7 g/dL CERSUSAN Comment:Testing performed by : [address], [address] RDW CV 17.8(H) 11.1 - 14.9 % JOSELYN Comment:Testing performed by : [address], [address] RDW SD 57.9(H) 35.7 - 48.1 fL CERSUSAN Comment:Testing performed by : [address] [address] NRBC abs 0.07(H) 0.00 - 0.01 K/cumm JOSELYN Comment:Testing performed by : [address] [address] ANC Prelim 2.06 1.50 - 6.50 K/cumm JOSELYN Comment: Interpretive Data The rapid ANC is a preliminary automated count and may vary from the final ANC (Neut Abs) reported in the WBC differential that follows. Current interpretive data was last revised 2024. Testing performed by: [address] [address] Blood 12/23/2024 9:47 AM CDT 12/23/2024 9:48 AM CDT Ramy Aguilera MD LAB BLOOD ORDERABLES Edited Result - Final Performing Organization Address [facility] Co de Phone Number [address] [employer] [address] * hCG, blood, quantitative (12/23/2024 9:47 AM CDT) [facility] hCG, quant <5.0 0.0 - 5.0 IUnits/L Comment: Interpretive Data Male: < 5 IU/L Non- premenopausal Female: <5 IU/L The [employer] hCG Beta Quant assay procedure was used. Results from different manufacturers or methods may not be comparable. Serial testing should be performed using the same method. Interpretive Data was last revised on 2023 Testing performed by: [address] [address] Blood 12/23/2024 9:47 AM CDT 12/23/2024 10:07 AM CDT Ramy Aguilera MD LAB BLOOD ORDERABLES Final R esult Performing Organization Address [facility]/ZIP Co de Phone Number DARRIN[address] [employer] [address] * Uric acid (12/23/2024 9:47 AM CDT) Uric acid 6.3 2.5 - 7.0 mg/dL Comment:Testing performed by : [address] [address] Blood 12/23/2024 9:47 AM CDT 12/23/2024 1:11 PM CDT us Ramy Aguilear MD LAB BLOOD ORDERABLES Final R esult [facility] [address] [facility] Department [place] [address] * (ABNORMAL) Comprehensive metabolic panel (12/23/2024 9:47 AM CDT) Pathologist [facility] Sodium 139 135 - 145 mmol/L Comment:Testing performed by : [address] [address] Potassium, pl 3.2(L) 3.3 - 4.9 mmol/L JOSELYN Comment:Testing performed by : [address] [address] Chloride 97 97 - 110 mmol/L JOSELYN Comment:Testing performed by : [address] [address] CO2 27 22 - 32 mmol/L JOSELYN Comment:Testing performed by : [address] [address] Anion gap 15 2 - 15 mmol/L JOSELYN Comment:Testing performed by : [address] [address] BUN 5(L) 6 - 25 mg/dL JOSELYN Comment:Testing performed by : [address] [address] Creatinine 0.70 0.60 - 1.10 mg/dL JOSELYN Comment:Testing performed by : [address] [address] Glucose 90 70 - 199 mg/dL JOSELYN Comment: Interpretive [...] was last revised 2022. Testing performed by: [address] [address] Calcium 9.4 8.5 - 10.3 mg/dL JOSELYN Comment:Testing performed by : [address] [address] Bilirubin, total 0.6 0.1 - 1.2 mg/dL JOSELYN Comment:Testing performed by : [address] [address] Protein, pl 5.7(L) 6.5 - 8.5 g/dL JOSELYN Comment:Testing performed by : [address] [address] Albumin 3.6 3.5 - 5.0 g/dL JOSELYN Comment:Testing performed by : [address] [address] Alk phos 242(H) 40 - 130 Units/L JOSELYN Comment:Testing performed by : [address] [address] ALT 7 7 - 45 Units/L JOSELYN Comment:Testing performed by : [address] [address] AST 30 10 - 45 Units/L JOSELYN Comment:Testing performed by : [address] [address] Blood 12/23/2024 9:47 AM CDT 12/23/2024 9:48 AM CDT us Ramy Aguilera MD LAB BLOOD ORDERABLES Final R esult JOSELYN [facility] [address] [facility] Department [place] [address] * PET/CT FDG Skull to Thigh (12/15/2024 9:47 AM CDT) Anatomical Region Laterality Modality N/A Positron Emissio n Tomography (PET) 12/15/2024 11:5 5 AM CDT Narrative 12/15/2024 12:12 PM CDT EXAM DESCRIPTION: PET/CT FDG SKULL TO THIGH RADIOPHARMACEUTICAL: 6.8 mCi F-18 Fluorodeoxyglucose (FDG) via a right antecubital vein IV site REASON FOR STUDY: Follicular lymphoma follow-up. Last reported chemotherapy 11/18/2024 TECHNIQUE: The patient's fasting blood glucose level, measured by glucometer before injection of FDG, was 94 mg/dL. After intravenous administration of FDG, noncontrast CT images were obtained for attenuation correction and for fusion with emission PET images to allow for anatomical localization of PET findings. Emission PET images were then obtained. The reported standardized uptake value maximum (SUVmax) values have been normalized to body weight (SUVbw). The area imaged spanned the region from the skull base to the proximal thighs . The time from injection of FDG to start of imaging was 60 minutes. COMPARISON: PET-CT 09/22/2024 FINDINGS: For reference, the maximum SUV of the ascending thoracic aorta is 1 . The maximum SUV of the liver is 2.8 . Head: Normal FDG uptake is seen in the included portion of the brain. Neck: Bilateral hypermetabolic cervical lymphadenopathy is once again seen. Activity in the posterior aspect of the left cervical lymph node conglomerate has an SUV of 6.6 compared to 7.4 previously. Chest: Bilateral hypermetabolic supraclavicular lymph nodes are once again seen. Bulky left axillary lymph nodes have increased in size. The lymph node conglomerate has an SUV of 8.8 on the left compared to 9 previously. Right axillary lymphadenopathy has increased in size and activity. A welding equipment sales representative right axillary lymph node measuring 2.2 x 1.6 cm has an SUV of 5.2 compared to 1.2 x 1 cm with an SUV of 3.9 previously. Increase in the number and activity of the right posterior cervical lymph nodes as well. Subcarinal lymph node has an SUV of 4.6 compared to 4.6 previously. Bilateral internal mammary hypermetabolic lymph nodes are once again seen. Noncalcified 5 mm nodule in the right middle lobe is unchanged and shows no abnormal FDG uptake. Heart size is top-normal. No significant pericardial effusion or pleural effusion. Abdomen and Pelvis: The liver is enlarged. Focal uptake in the medial posterior right hepatic lobe has an SUV of 4.6 compared to 6.2 previously. Lesion in the lateral right hepatic lobe has an SUV of 4.7 compared to 4.6 previously. No calcified gallstones. Mild splenomegaly has slightly increased. There is reversal of the normal liver-spleen ratio, unchanged. Normal pancreas without focal FDG activity. No focal hypermetabolic adrenal lesion. Normal genitourinary activity. Normal gastrointestinal activity is seen. Marcello hepatis lymph node has an SUV of 6.6 compared to 7.2. Bulky retroperitoneal lymphadenopathy has an SUV of 5.9 compared to 6.2 previously. Bilateral inguinal hypermetabolic lymphadenopathy. The welding equipment sales representative left inguinal lymph node measures 3.5 x 2.6 cm with an SUV of 9.8. This previously measured 2.8 x 1.7 cm with an SUV of 8. Right inguinal hypermetabolic lymph nodes have increased in size and activity. Small amount of ascites in the pelvis. Diffuse subcutaneous edema. Bones: Diffuse uptake throughout the bone marrow is grossly similar to slightly increased. No suspicious focal hypermetabolic osseous lesion. IMPRESSION: 1. Overall, progression of disease (5PS = 5 ). 2. Increase in the size and activity of the right axillary and bilateral inguinal lymph nodes. 3. Slight decrease in the metabolic activity of the liver lesions. 4. Slight increase in the size of the spleen with persistent reversal of the normal liver-spleen ratio. 5. Grossly stable metabolic activity of the cervical, supraclavicular, mediastinal, and retroperitoneal lymphadenopathy. 6. Diffuse uptake throughout the bone marrow may be due to treatment or bone marrow involvement given findings elsewhere. 7. Small amount of ascites in the pelvis. Diffuse subcutaneous edema. THIS IS AN ELECTRONICALLY VERIFIED FINAL REPORT 12/15/2024 12:12 PM - Electronically signed by Fabiano Santana M.D. LB: CHAITANYA Report ID: [id number] Reading Location: [id number] Procedure Note Fabiano Santana MD - 12/15/2024 EXAM DESCRIPTION: PET/CT FDG SKULL TO THIGH RADIOPHARMACEUTICAL: 6.8 mCi F-18 Fluorodeoxyglucose (FDG) via a right antecubital vein IV site REASON FOR STUDY: Follicular lymphoma follow-up. Last reportedchemotherapy 11/18/2024 TECHNIQUE: The patient's fasting blood glucose level, measured byglucometer before injection of FDG, was 94 mg/dL. After intravenous administrationof FDG, noncontrast CT images were obtained for attenuation correction andfor fusion with emission PET images to allow for anatomical localization ofPET findings. Emission PET images were then obtained. The reportedstandardized uptake value maximum (SUVmax) values have been normalized to body weight (SUVbw). The area imaged spanned the region from the skull base to the proximal thighs . The time from injection of FDG to start of imaging was60 minutes. COMPARISON: PET-CT 09/22/2024 FINDINGS: For reference, the maximum SUV of the ascending thoracic aortais 1 . The maximum SUV of the liver is 2.8 . Head: Normal FDG uptake is seen in the included portion of the brain. Neck: Bilateral hypermetabolic cervical lymphadenopathy is once again seen. Activity in the posterior aspect of the left cervical lymph nodeconglomerate has an SUV of 6.6 compared to 7.4 previously. Chest: Bilateral hypermetabolic supraclavicular lymph nodes are once again seen. Bulky left axillary lymph nodes have increased in size. The lymph node conglomerate has an SUV of 8.8 on the left compared to 9 previously.Right axillary lymphadenopathy has increased in size and activity. Arepresentative right axillary lymph node measuring 2.2 x 1.6 cm has an SUV of 5.2compared to 1.2 x 1 cm with an SUV of 3.9 previously. Increase in the number andactivity of the right posterior cervical lymph nodes as well. Subcarinal lymphnode has an SUV of 4.6 compared to 4.6 previously. Bilateral internal mammary hypermetabolic lymph nodes are once again seen. Noncalcified 5 mmnodule in the right middle lobe is unchanged and shows no abnormal FDG uptake. Heart size is top-normal. No significant pericardial effusion or pleural effusion. Abdomen and Pelvis: The liver is enlarged. Focal uptake in the medial posterior right hepatic lobe has an SUV of 4.6 compared to 6.2 previously. Lesion in the lateral right hepatic lobe has an SUV of 4.7 compared to 4.6 previously. No calcified gallstones. Mild splenomegaly has slightly increased. Thereis reversal of the normal liver-spleen ratio, unchanged. Normal pancreas without focal FDG activity. No focal hypermetabolic adrenal lesion.Normal genitourinary activity. Normal gastrointestinal activity is seen.Marcello hepatis lymph node has an SUV of 6.6 compared to 7.2. Bulkyretroperitoneal lymphadenopathy has an SUV of 5.9 compared to 6.2 previously. Bilateral inguinal hypermetabolic lymphadenopathy. The welding equipment sales representative left inguinal lymph node measures 3.5 x 2.6 cm with an SUV of 9.8. This previouslymeasured 2.8 x 1.7 cm with an SUV of 8. Right inguinal hypermetabolic lymph nodeshave increased in size and activity. Small amount of ascites in the pelvis. Diffuse subcutaneous edema. Bones: Diffuse uptake throughout the bone marrow is grossly similar to slightly increased. No suspicious focal hypermetabolic osseous lesion. IMPRESSION: 1. Overall, progression of disease (5PS = 5 ). 2. Increase in the size and activity of the right axillary and bilateral inguinal lymph nodes. 3. Slight decrease in the metabolic activity of the liver lesions. 4. Slight increase in the size of the spleen with persistent reversal ofthe normal liver-spleen ratio. 5. Grossly stable metabolic activity of the cervical, supraclavicular, mediastinal, and retroperitoneal lymphadenopathy. 6. Diffuse uptake throughout the bone marrow may be due to treatment orbone marrow involvement given findings elsewhere. 7. Small amount of ascites in the pelvis. Diffuse subcutaneous edema. THIS IS AN ELECTRONICALLY VERIFIED FINAL REPORT 12/15/2024 12:12 PM - Electronically signed by Fabiano Santana M.D. LB: CHAITANYA Report ID: [id number] Reading Location: [place] [address] us Paige Giordano COMBINER IMG PET PROCEDURES Final Resu lt * POCT glucose (12/15/2024 8:33 AM CDT) [facility] Glucose, POC 94 70 - 199 mg/dL Comment:Testing performed by : [address] [address] Blood 12/15/2024 8:33 AM CDT 12/15/2024 8:33 AM CDT Ramy Aguilera MD LAB POCT ORDERABLES - DEVICE Final Result Performing Organization Address [facility] Co de Phone Number JOSELYN [address] [place] [address] * (ABNORMAL) Blood smear review (12/09/2024 9:12 AM CDT) [facility] RBC morphology Consistent with RBC Indicies Comment:Testing performed by : [address] [address] Platelet estimate Decreased(A) JOSELYN Comment:Testing performed by : [address] [address] Blood 12/09/2024 9:12 AM CDT 12/09/2024 9:14 AM CDT Ramy Aguilera MD LAB BLOOD ORDERABLES Final R esult Performing Organization Address City/[facility] Co de Phone Number DARRIN[address] [place] [address] * eGFR (12/09/2024 9:12 AM CDT) [facility] eGFR >90 >=60 mL/min/1. 73 m2 Comment: [...] was last reviewed 2021. Testing performed by: [address] [address] Blood 12/09/2024 9:12 AM CDT 12/09/2024 9:14 AM CDT us Ramy Aguilera MD LAB BLOOD ORDERABLES Final R esult [facility] Department [place] [address] * (ABNORMAL) Differential, auto (12/09/2024 9:12 AM CDT) Neutrophil abs 2.40 1.50 - 6.50 K/cumm Comment:Testing performed by : [address] [address] Imm gran abs 0.05 0.00 - 0.10 K/cumm JOSELYN Comment:Testing performed by : [address] [address] Lymphocyte abs 13.72(H) 0.80 - 3.30 K/cumm JOSELYN Comment:Testing performed by : [address] [address] Monocyte abs 0.28 0.20 - 0.80 K/cumm JOSELYN Comment:Testing performed by : [address] [address] Eosinophil abs 0.04 0.00 - 0.50 K/cumm JOSELYN Comment:Testing performed by : [address] [address] Basophil abs 0.06 0.00 - 0.10 K/cumm JOSELYN Comment:Testing performed by : [address] [place]., [address] Neutrophil pct 14.5 % [facility] Comment: Interpretive Data Percent cell count reference ranges are not reported, since discordance with absolute values may lead to misinterpretation of CBC data. Current Interpretive Data was last revised on 2017. Testing performed by: [address] [address] Imm gran pct 0.3 % [facility] Comment: Interpretive Data Percent cell count reference ranges are not reported, since discordance with absolute values may lead to misinterpretation of CBC data. Current Interpretive Data was last revised on 2017. Testing performed by: [address] [address] Lymphocyte pct 82.9 % [facility] Comment: Interpretive Data Percent cell count reference ranges are not reported, since discordance with absolute values may lead to misinterpretation of CBC data. Current Interpretive Data was last revised on 2017. Testing performed by: [address] [address] Monocyte pct 1.7 % [facility] Comment: Interpretive Data Percent cell count reference ranges are not reported, since discordance with absolute values may lead to misinterpretation of CBC data. Current Interpretive Data was last revised on 2017. Testing performed by: [address] [address] Eosinophil pct 0.2 % [facility] Comment: Interpretive Data Percent cell count reference ranges are not reported, since discordance with absolute values may lead to misinterpretation of CBC data. Current Interpretive Data was last revised on 2017. Testing performed by: [address] [address] Basophil pct 0.4 % [facility] Comment: Interpretive Data Percent cell count reference ranges are not reported, since discordance with absolute values may lead to misinterpretation of CBC data. Current Interpretive Data was last revised on 2017. Testing performed by: [address] [address] Blood 12/09/2024 9:12 AM CDT 12/09/2024 9:14 AM CDT us Ramy Aguilera MD LAB BLOOD ORDERABLES Final R esult [facility] [address] [facility] Department [place] [address] * (ABNORMAL) CBC with auto differential (12/09/2024 9:12 AM CDT) WBC 16.55(H) 3.80 - 9.90 K/cumm Comment:Testing performed by : [address] [address] Hgb 8.8(L) 11.9 - 15.5 g/dL JOSELYN Comment:Testing performed by : [address] [address] Hct 26.9(L) 35.6 - 45.5 % JOSELYN Comment:Testing performed by : [address] [address] Plt 92(L) 150 - 400 K/cumm JOSELYN Comment:Testing performed by : [address] [address] MPV 9.4 9.1 - 12.3 fL JOSELYN Comment:Testing performed by : [address] [address] RBC 2.99(L) 3.90 - 5.20 M/cumm JOSELYN Comment:Testing performed by : [address] [address] MCV 90.0 81.3 - 96.4 fL JOSELYN Comment:Testing performed by : [address] [address] MCH 29.4 27.1 - 33.3 pg JOSELYN Comment:Testing performed by : [address] [address] MCHC 32.7 32.3 - 35.7 g/dL JOSELYN Comment:Testing performed by : [address] [address] RDW CV 15.3(H) 11.1 - 14.9 % JOSELYN Comment:Testing performed by : [address] [address] RDW SD 48.4(H) 35.7 - 48.1 fL JOSELYN Comment:Testing performed by : [address] [address] NRBC abs 0.00 0.00 - 0.01 K/cumm JOSELYN Comment:Testing performed by : [address] [address] ANC Prelim 2.40 1.50 - 6.50 K/cumm JOSELYN Comment: Interpretive Data The rapid ANC is a preliminary automated count and may vary from the final ANC (Neut Abs) reported in the WBC differential that follows. Current interpretive data was last revised 2024. Testing performed by: [address] [address] Blood 12/09/2024 9:12 AM CDT 12/09/2024 9:14 AM CDT us Ramy Aguilera MD LAB BLOOD ORDERABLES Edited Result - Final JOSELYN [address] [facility] Department [place] [address] * hCG, blood, quantitative (12/09/2024 9:12 AM CDT) hCG, quant <5.0 0.0 - 5.0 IUnits/L Comment: Interpretive Data Male: < 5 IU/L Non- premenopausal Female: <5 IU/L The [employer] hCG Beta Quant assay procedure was used. Results from different manufacturers or methods may not be comparable. Serial testing should be performed using the same method. Interpretive Data was last revised on 2023 Testing performed by: [address] [address] Blood 12/09/2024 9:12 AM CDT 12/09/2024 9:44 AM CDT us Ramy Aguilera MD LAB BLOOD ORDERABLES Final R esult JOSELYN [address] [facility] Department [place] [address] * (ABNORMAL) Comprehensive metabolic panel (12/09/2024 9:12 AM CDT) Sodium 140 135 - 145 mmol/L Comment:Testing performed by : [address] [address] Potassium, pl 4.0 3.3 - 4.9 mmol/L JOSELYN Comment:Testing performed by : [address] [address] Chloride 102 97 - 110 mmol/L JOSELYN Comment:Testing performed by : [address] [address] CO2 27 22 - 32 mmol/L JOSELYN Comment:Testing performed by : [address] [address] Anion gap 11 2 - 15 mmol/L JOSELYN Comment:Testing performed by : [address] [address] BUN 5(L) 6 - 25 mg/dL JOSELYN Comment:Testing performed by : [address] [address] Creatinine 0.70 0.60 - 1.10 mg/dL JOSELYN Comment:Testing performed by : [address] [address] Glucose 96 70 - 199 mg/dL JOSELYN Comment: Interpretive [...] was last revised 2022. Testing performed by: [address] [address] Calcium 9.2 8.5 - 10.3 mg/dL [facility] Comment:Testing performed by : [address] [address] Bilirubin, total 0.3 0.1 - 1.2 mg/dL [facility] Comment:Testing performed by : [address] [address] Protein, pl 5.6(L) 6.5 - 8.5 g/dL [facility] Comment:Testing performed by : [address] [address] Albumin 3.7 3.5 - 5.0 g/dL [facility] Comment:Testing performed by : [address], [address] Alk phos 192(H) 40 - 130 Units/L [facility] Comment:Testing performed by : [address], [address] ALT 13 7 - 45 Units/L [facility] Comment:Testing performed by : [address] [address] AST 20 10 - 45 Units/L [facility] Comment:Testing performed by : [address] [address] Blood 12/09/2024 9:12 AM CDT 12/09/2024 9:14 AM CDT Ramy Aguilera MD LAB BLOOD ORDERABLES Final R esult JOSELYN [address] [facility] Department of Laboratories [place], [place] [id number] * (ABNORMAL) C. difficile testing Stool (11/18/2024 9:30 AM CDT) Pathologist [facility] C. diff result Positive, DNA(A) Negative , DNA Comment:Testing performed by : [address] [address] C. diff interp Toxigenic Clostridioides (Clostridium) difficile detected. Analysis performed by detection of gene(s) encoding C. difficile toxin(s). The nucleic acid detection assay used is cleared by the [place] Food and Drug administration and its performance characteristics have been verified by the performing laboratory. JOSELYN VAZQUEZ Comment: NAP (O27) - presumptive negative Testing performed by: [facility], [address] [place] [address]., [address] Stool 11/18/2024 9:30 AM CDT 11/18/2024 11:35 AM CDT Ramy Aguilera MD LAB MICROBIOLOGY - GENERAL O RDERABLES Final Result Performing Organization Address [facility] Co de Phone Number JOSELYN [address] [employer] [address] * Cryptosporidium and Giardia antigen assay Stool (11/18/2024 9:30 AM CDT) Giardia Ag Negative Negative Comment:Testing performed by : , [address] [place]., [address] Cryptosporidium Ag Negative Negative JOSELYN Comment: Interpretive data: Testing performed by the [facility] Microbiology Laboratory using an immunoassay that detects Cryptosporidium and Giardia antigens in stool specimens. If comprehensive examination for ova and parasites is required, please request Ova and Parasite Examination. Testing performed by: , [address] [place]., [address] Stool 11/18/2024 9:30 AM CDT 11/18/2024 4:49 PM CDT Ramy Aguilera MD LAB MICROBIOLOGY - GENERAL O RDERABLES Final Result Performing Organization Address City/[facility]/ZIP Co de Phone Number JOSELYN [address] [employer] [place] [address] * eGFR (11/18/2024 8:40 AM CDT) eGFR >90 >=60 mL/min/1. 73 [...] was last reviewed 2021. Testing performed by: [address] [address] Blood 11/18/2024 8:40 AM CDT 11/18/2024 8:42 AM CDT us Ramy Aguilera MD LAB BLOOD ORDERABLES Final R esult [facility] [address] [facility] Department [place] [address] * (ABNORMAL) Differential, auto (11/18/2024 8:40 AM CDT) Neutrophil abs 3.60 1.50 - 6.50 K/cumm Comment:Testing performed by : [address] [address] Imm gran abs 0.05 0.00 - 0.10 K/cumm JOSELYN Comment:Testing performed by : [address] [address] Lymphocyte abs 13.41(H) 0.80 - 3.30 K/cumm JOSELYN Comment:Testing performed by : [address] [address] Monocyte abs 0.34 0.20 - 0.80 K/cumm JOSELYN Comment:Testing performed by : [address] [address] Eosinophil abs 0.03 0.00 - 0.50 K/cumm [facility] Comment:Testing performed by : [address] [address] Basophil abs 0.06 0.00 - 0.10 K/cumm [facility] Comment:Testing performed by : [address] [address] Neutrophil pct 20.6 % [facility] Comment: Interpretive Data Percent cell count reference ranges are not reported, since discordance with absolute values may lead to misinterpretation of CBC data. Current Interpretive Data was last revised on 2017. Testing performed by: [address] [address] Imm gran pct 0.3 % [facility] Comment: Interpretive Data Percent cell count reference ranges are not reported, since discordance with absolute values may lead to misinterpretation of CBC data. Current Interpretive Data was last revised on 2017. Testing performed by: [address] [address] Lymphocyte pct 76.7 % [facility] Comment: Interpretive Data Percent cell count reference ranges are not reported, since discordance with absolute values may lead to misinterpretation of CBC data. Current Interpretive Data was last revised on 2017. Testing performed by: [address] [address] Monocyte pct 1.9 % [facility] Comment: Interpretive Data Percent cell count reference ranges are not reported, since discordance with absolute values may lead to misinterpretation of CBC data. Current Interpretive Data was last revised on 2017. Testing performed by: [address] [address] Eosinophil pct 0.2 % [facility] Comment: Interpretive Data Percent cell count reference ranges are not reported, since discordance with absolute values may lead to misinterpretation of CBC data. Current Interpretive Data was last revised on 2017. Testing performed by: [address] [address] Basophil pct 0.3 % [facility] Comment: Interpretive Data Percent cell count reference ranges are not reported, since discordance with absolute values may lead to misinterpretation of CBC data. Current Interpretive Data was last revised on 2017. Testing performed by: [address] [address] Blood 11/18/2024 8:40 AM CDT 11/18/2024 8:42 AM CDT us Ramy Aguilera MD LAB BLOOD ORDERABLES Final R esult [facility] [address] [facility] Department [place] [address] * (ABNORMAL) CBC with auto differential (11/18/2024 8:40 AM CDT) WBC 17.49(H) 3.80 - 9.90 K/cumm Comment:Testing performed by : [address] [address] Hgb 9.8(L) 11.9 - 15.5 g/dL JOSELYN Comment:Testing performed by : [address] [address] Hct 29.7(L) 35.6 - 45.5 % JOSELYN Comment:Testing performed by : [address] [address] Plt 133(L) 150 - 400 K/cumm JOSELYN Comment:Testing performed by : [address] [address] MPV 10.0 9.1 - 12.3 fL JOSELYN Comment:Testing performed by : [address] [address] RBC 3.33(L) 3.90 - 5.20 M/cumm JOSELYN Comment:Testing performed by : [address] [address] MCV 89.2 81.3 - 96.4 fL JOSELYN Comment:Testing performed by : [address] [address] MCH 29.4 27.1 - 33.3 pg JOSEYLN VAZQUEZ Comment:Testing performed by : [address] [address] MCHC 33.0 32.3 - 35.7 g/dL JOSELYN Comment:Testing performed by : [address] [address] RDW CV 13.8 11.1 - 14.9 % JOSELYN Comment:Testing performed by : [address] [address] RDW SD 44.3 35.7 - 48.1 fL JOSELYN Comment:Testing performed by : [address] [address] NRBC abs 0.00 0.00 - 0.01 K/cumm JOSELYN Comment:Testing performed by : [address] [address] ANC Prelim 3.60 1.50 - 6.50 K/cumm JOSELYN Comment: Interpretive Data The rapid ANC is a preliminary automated count and may vary from the final ANC (Neut Abs) reported in the WBC differential that follows. Current interpretive data was last revised 2024. Testing performed by: [address] [address] Morphologic Screen Results confirmed by manual morphology review. JOSELYN Comment:Testing performed by : [address] [address] Blood 11/18/2024 8:40 AM CDT 11/18/2024 8:42 AM CDT Ramy Aguilera MD LAB BLOOD ORDERABLES Edited Result - Final JOSELYN [address] [facility] Department [place] [address] * hCG, blood, quantitative (11/18/2024 8:40 AM CDT) Pathologist [facility] hCG, quant <5.0 0.0 - 5.0 IUnits/L Comment: Interpretive Data Male: < 5 IU/L Non- premenopausal Female: <5 IU/L The [employer] hCG Beta Quant assay procedure was used. Results from different manufacturers or methods may not be comparable. Serial testing should be performed using the same method. Interpretive Data was last revised on 2023 Testing performed by: [address] [address] Blood 11/18/2024 8:40 AM CDT 11/18/2024 8:58 AM CDT Ramy Aguilera MD LAB BLOOD ORDERABLES Final R esult [facility] [address] [facility] Department [place] [address] * (ABNORMAL) Comprehensive metabolic panel (11/18/2024 8:40 AM CDT) Sodium 139 135 - 145 mmol/L Comment:Testing performed by : [address] [address] Potassium, pl 3.2(L) 3.3 - 4.9 mmol/L JOSELYN Comment:Testing performed by : [address] [address] Chloride 100 97 - 110 mmol/L JOSELYN Comment:Testing performed by : [address] [address] CO2 27 22 - 32 mmol/L JOSELYN Comment:Testing performed by : [address] [address] Anion gap 12 2 - 15 mmol/L JOSELYN Comment:Testing performed by : [address] [address] BUN 6 6 - 25 mg/dL JOSELYN Comment:Testing performed by : [address] [address] Creatinine 0.80 0.60 - 1.10 mg/dL JOSELYN Comment:Testing performed by : [address] [address] Glucose 106 70 - 199 mg/dL JOSELYN Comment: Interpretive [...] was last revised 2022. Testing performed by: [address] [address] Calcium 9.0 8.5 - 10.3 mg/dL JOSELYN Comment:Testing performed by : [address] [address] Bilirubin, total 0.4 0.1 - 1.2 mg/dL JOSELYN Comment:Testing performed by : [address] [address] Protein, pl 6.0(L) 6.5 - 8.5 g/dL JOSELYN Comment:Testing performed by : [address] [address] Albumin 3.8 3.5 - 5.0 g/dL JOSELYN Comment:Testing performed by : [address] [address] Alk phos 169(H) 40 - 130 Units/L JOSELYN Comment:Testing performed by : [address] [address] ALT 16 7 - 45 Units/L JOSELYN Comment:Testing performed by : [address] [address] AST 25 10 - 45 Units/L JOSELYN Comment:Testing performed by : [address] [address] Blood 11/18/2024 8:40 AM CDT 11/18/2024 8:42 AM CDT us Ramy Aguilera MD LAB BLOOD ORDERABLES Final R esult JOSELYN [address] [facility] Department of Laboratories [place], [place] [id number] * eGFR (10/28/2024 8:25 AM CDT) eGFR >90 >=60 mL/min/1. 73 [...] was last reviewed 2021. Testing performed by: [address] [address] Blood 10/28/2024 8:25 AM CDT 10/28/2024 8:26 AM CDT us Ramy Aguilera MD LAB BLOOD ORDERABLES Final R esult JOSELYN [address] [facility] Department [place] [address] * (ABNORMAL) Differential, auto (10/28/2024 8:25 AM CDT) Pathologist [facility] Neutrophil abs 1.99 1.50 - 6.50 K/cumm Comment:Testing performed by : [address] [address] Imm gran abs 0.02 0.00 - 0.10 K/cumm JOSELYN VAZQUEZ Comment:Testing performed by : [address] [address] Lymphocyte abs 6.10(H) 0.80 - 3.30 K/cumm [facility] Comment:Testing performed by : [address] [address] Monocyte abs 0.26 0.20 - 0.80 K/cumm [facility] Comment:Testing performed by : [address], [place]., [address] Eosinophil abs 0.06 0.00 - 0.50 K/cumm [facility] Comment:Testing performed by : [address] [address] Basophil abs 0.02 0.00 - 0.10 K/cumm [facility] Comment:Testing performed by : [address] [address] Neutrophil pct 23.6 % [facility] Comment: Interpretive Data Percent cell count reference ranges are not reported, since discordance with absolute values may lead to misinterpretation of CBC data. Current Interpretive Data was last revised on 2017. Testing performed by: [address] [address] Imm gran pct 0.2 % [facility] Comment: Interpretive Data Percent cell count reference ranges are not reported, since discordance with absolute values may lead to misinterpretation of CBC data. Current Interpretive Data was last revised on 2017. Testing performed by: [address] [address] Lymphocyte pct 72.2 % [facility] Comment: Interpretive Data Percent cell count reference ranges are not reported, since discordance with absolute values may lead to misinterpretation of CBC data. Current Interpretive Data was last revised on 2017. Testing performed by: [address] [address] Monocyte pct 3.1 % [facility] Comment: Interpretive Data Percent cell count reference ranges are not reported, since discordance with absolute values may lead to misinterpretation of CBC data. Current Interpretive Data was last revised on 2017. Testing performed by: [address] [address] Eosinophil pct 0.7 % [facility] Comment: Interpretive Data Percent cell count reference ranges are not reported, since discordance with absolute values may lead to misinterpretation of CBC data. Current Interpretive Data was last revised on 2017. Testing performed by: [address] [address] Basophil pct 0.2 % JOSELYN VAZQUEZ Comment: Interpretive Data Percent cell count reference ranges are not reported, since discordance with absolute values may lead to misinterpretation of CBC data. Current Interpretive Data was last revised on 2017. Testing performed by: [address] [address] Blood 10/28/2024 8:25 AM CDT 10/28/2024 8:26 AM CDT us Ramy Aguilera MD LAB BLOOD ORDERABLES Final R esult JOSELYN [facility] Department [place] [address] * (ABNORMAL) CBC with auto differential (10/28/2024 8:25 AM CDT) Pathologist [facility] WBC 8.45 3.80 - 9.90 K/cumm Comment:Testing performed by : [address] [address] Hgb 10.3(L) 11.9 - 15.5 g/dL JOSELYN VAZQUEZ Comment:Testing performed by : [address] [address] Hct 30.1(L) 35.6 - 45.5 % JOSELYN VAZQUEZ Comment:Testing performed by : [address] [address] Plt 145(L) 150 - 400 K/cumm JOSELYN VAZQUEZ Comment:Testing performed by : [address] [address] MPV 9.7 9.1 - 12.3 fL JOSELYN VAZQUEZ Comment:Testing performed by : [address] [address] RBC 3.37(L) 3.90 - 5.20 M/cumm JOSELYN VAZQUEZ Comment:Testing performed by : [address] [address] MCV 89.3 81.3 - 96.4 fL JOSELYN Comment:Testing performed by : [address] [address] MCH 30.6 27.1 - 33.3 pg JOSELYN VAZQUEZ Comment:Testing performed by : [address] [address] MCHC 34.2 32.3 - 35.7 g/dL JOSELYN VAZQUEZ Comment:Testing performed by : [address] [address] RDW CV 13.6 11.1 - 14.9 % JOSELYN Comment:Testing performed by : [address] [address] RDW SD 44.5 35.7 - 48.1 fL JOSELYN Comment:Testing performed by : [address] [address] NRBC abs 0.00 0.00 - 0.01 K/cumm JOSELYN Comment:Testing performed by : [address] [address] ANC Prelim 1.99 1.50 - 6.50 K/cumm JOSELYN Comment: Interpretive Data The rapid ANC is a preliminary automated count and may vary from the final ANC (Neut Abs) reported in the WBC differential that follows. Current interpretive data was last revised 2024. Testing performed by: [address] [address] Morphologic Screen Results confirmed by manual morphology review. JOSELYN Comment:Testing performed by : [address] [address] Blood 10/28/2024 8:25 AM CDT 10/28/2024 8:26 AM CDT us Ramy Aguilera MD LAB BLOOD ORDERABLES Edited Result - Final JOSELYN [address] [facility] Department [place] [address] * hCG, blood, quantitative (10/28/2024 8:25 AM CDT) [facility] hCG, quant <5.0 0.0 - 5.0 IUnits/L Comment: Interpretive Data Male: < 5 IU/L Non- premenopausal Female: <5 IU/L The [employer] hCG Beta Quant assay procedure was used. Results from different manufacturers or methods may not be comparable. Serial testing should be performed using the same method. Interpretive Data was last revised on 2023 Testing performed by: [address] [address] Blood 10/28/2024 8:25 AM CDT 10/28/2024 9:06 AM CDT Ramy Aguilera MD LAB BLOOD ORDERABLES Edited Result - Final Performing Organization Address [facility] Co de Phone Number [address] [employer] [place], [place] [id number] * Lactate dehydrogenase (LD) (10/28/2024 8:25 AM CDT) [facility] Lactate dehydrogenase (LDH) 202 100 - 250 Units/L Comment:Testing performed by : [address] [address] Blood 10/28/2024 8:25 AM CDT 10/28/2024 8:26 AM CDT Ramy Aguilera MD LAB BLOOD ORDERABLES Final R esult Performing Organization Address City/[facility] Co de Phone Number [address] [employer] [address] * (ABNORMAL) Comprehensive metabolic panel (10/28/2024 8:25 AM CDT) [facility] Sodium 136 135 - 145 mmol/L Comment:Testing performed by : [address] [address] Potassium, pl 3.1(L) 3.3 - 4.9 mmol/L JOSELYN Comment:Testing performed by : [address] [address] Chloride 97 97 - 110 mmol/L JOSELYN Comment:Testing performed by : [address], [place]., [address] CO2 28 22 - 32 mmol/L JOSELYN Comment:Testing performed by : [address], [place]., [address] Anion gap 11 2 - 15 mmol/L JOSELYN Comment:Testing performed by : [address], [place]., [address] BUN 6 6 - 25 mg/dL [facility] Comment:Testing performed by : [address], [place]., [address] Creatinine 0.80 0.60 - 1.10 mg/dL JOSELYN Comment:Testing performed by : [address], [place]., [address] Glucose 94 70 - 199 mg/dL [facility] Comment: Interpretive Data Fasting glucose >/= [...] was last revised 2022. Testing performed by: [address] [address] Calcium 10.1 8.5 - 10.3 mg/dL [facility] Comment:Testing performed by : [address] [address] Bilirubin, total 0.5 0.1 - 1.2 mg/dL JOSELYN Comment:Testing performed by : [address] [address] Protein, pl 5.9(L) 6.5 - 8.5 g/dL JOSELYN Comment:Testing performed by : [address], [place]., [address] Albumin 3.8 3.5 - 5.0 g/dL JOSELYN VAZQUEZ Comment:Testing performed by : [facility], [address] [place] [address]., [address] Alk phos 153(H) 40 - 130 Units/L JOSELYN VAZQUEZ Comment:Testing performed by : [facility], [address] [place] [address]., [address] ALT 13 7 - 45 Units/L JOSELYN VAZQUEZ Comment:Testing performed by : [address] [address] AST 21 10 - 45 Units/L JOSELYN Comment:Testing performed by : [facility], [address] [place] [address]., [address] Blood 10/28/2024 8:25 AM CDT 10/28/2024 8:26 AM CDT us Ramy Aguilera MD LAB BLOOD ORDERABLES Final R esult JOSELYN [address] [facility] Department [place] [address] from Last 3 Months Additional Health Concerns Infection Onset Date Last Indicated C. 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
--- OUTSIDE RECORDS SUMMARY | 2025-01-25 20:12 | XMS_ITS | Data Portability ---
Author Organization [facility] Address [address] [place] [address] Assessment Encounter Date Assessment Date Assessment LastModified by Organization Details LastModified Time 07/29/2024 07/29/2024 Annual gynecological exam performed. Patient will come back in a year unless there are new symptoms. [email or web address] Not available 07/29/2024 11:38:03 Plan of Treatment Reminders Order Date Submit Date Provider Last Modified By Organization Details Last Modified Time Details Appointments None recorded. Lab hbcab (hepatitis B core Ab) igm, serum [address] [facility] (Lab), [address] [place], [address], 5 11:25:14 HBsAg (hepatitis B surface Ag), serum [address] [facility] (Lab), [address] [place], [address], 5 11:25:14 hepatitis C virus Ab, serum [address] [facility] (Lab), [address] [place], [address], 5 11:25:13 HIV 1+2 AB + HIV 1 p24 Ag, qualitative immunoassay , serum [address] [facility] (Lab), [address] [place], [address], 5 11:25:13 RPR (rapid plasma reagin), serum [address] [facility] (Lab), [address] [facility] [address], [place], [address], 5 11:25:14 pap, IG + HR HPV - HPV regardless but if HPV is positive need subtyping 16,18/45 add STI to pap GC/CT/Trich [address] [facility] (Lab), [address] [facility], [place], [address], 5 13:59:16 culture, urine [address] [facility] (Lab), [address] [facility], [place], [address], 5 13:59:18 Referral None recorded. Procedures None recorded. Surgeries None recorded. Imaging MAMMO, diagnostic, digital, bilateral 2024 [facility], [address], [place], [address], 04:02:31 US, breast, bilateral, complete 2024 [facility], [address], [place], [address], 04:02:31 Medication Orders None recorded. Patient TargetsNo [...] of expos ure to HCV. Not Available [facility] (Lab) [address], [place], [address], 07/30/2024 11:25:13 07/30/19 25 07/29/2024 HIV 1/2 ANTIG EN/AN TIBOD Y, REFLE X CONFI RMATI ON HIV antigen/anti body Nonrea ctive nonrea ctive HIV-1 antig en and HIV-1 /HIV- 2 antib odies were not detec gabriella. No labor atory evide nce of HIV infec tion. Not Available [facility] (Lab) [address], [place], [address], 07/30/2024 11:25:13 07/30/19 25 07/29/2024 HEPAT ITIS B SURFA CE ANTIG EN hepatitis B surface antigen Non-re active non-re active This assay was perfo rmed using [employer] ratio n reage nts and test kits. Value s obtai maxim with other assay metho ds or kits canno t be used inter caro eably . Not Available [facility] (Lab) [address], [place], [address], 07/30/2024 11:25:14 07/30/19 25 07/29/2024 RPR SCREE N, REFLE X TITER /CONF IRMAT ION RPR qualitative Nonrea ctive nonrea ctive Not Available [facility] (Lab) [address] [facility] [address], [place], [address], 07/30/2024 11:25:14 07/30/19 25 07/29/2024 HEPAT ITIS B CORE, IGM hepatitis B core IgM antibody Non-re active non-re active IgM anti- HBc not detec gabriella. Does not exclu de the possi bilit y of expos ure to or infec tion with HBV. Test Perfo rmed by: Adrian daniels rn, [facility] [address] [place] [address] Not Available [facility] (Lab) [address] [facility] [address], [place], [address], 07/30/2024 11:25:14 07/30/19 25 07/29/2024 IMAGE GUIDE [...] epith elial Naty muñiz or Rinku jain ([facility]) . Elect apple velazquez d [...] as clini nati zamarripa nted. Not Available [facility] (Lab) [address], [place], [address], 08/03/2024 13:59:16 07/30/19 25 07/29/2024 TRICH OMONA S VAGIN CHALO (RRNA ) trichomonas vaginalis ribosomal RNA (rrna) Negati ve negati ve Not Available [facility] (Lab) [address] [place], [address], 08/03/2024 13:59:17 07/30/19 25 07/29/2024 CT/GC (FAREED) , THINP REP VIAL chlamydia trachomatis, PCR Negati ve negati ve Not Available [facility] (Lab) [address], [place], [address], 08/03/2024 13:59:17 07/30/19 25 07/29/2024 CT/GC (FAREED) , THINP REP VIAL neisseria gonorrhoeae, PCR Negati ve negati ve Not Available [facility] (Lab) [address], [place], [address], 08/03/2024 13:59:17 07/30/19 25 07/29/2024 CULTU RE: URINE result report SEE RESULT S BELOW abnormal Test: Cultu re: Urine Speci men Sourc e: Urine - Clean Catch Speci men Type: Urine Speci men Date: 2024 1446 Resul t Date: 2024 0713 Resul t Statu s: Final resul t Ramakrishnaor mal: Yes Jacoby garcia Lab: [facility] [address] [facility] [address] Tel: CULTU RE ----- ----- ----- --- [...] <=0.5 ug/mL Susce ptibl e Not Available [facility] (Lab) [address], [place], [address], 08/03/2024 13:59:18 Result Notes None recorded. Procedures Surgical History Date Name Laterality Status Provider Name and Address Organization Details Recorded Time 11/06/19 22 chemotherapy completed [facility] 07/29/2024 12:08:18 05/08/19 15 medical termination of completed [facility] 07/29/2024 12:07:34 05/08/19 14 incision and drainage of breast abscess completed [facility] 07/29/2024 12:07:14 Imaging Results None recorded. Procedure Notes None recorded. Medical Equipment None Reported. Allergies Allergen ID Allergen Name Allergen Category Reaction Reaction Severity Criticality Documentation Date Start Date Code Code System Note Provider Name and Address Organization Details Recorded Time 74638 pecan nut food Not available Not available Not available 07/29/2024 [facility] 11:57:32 33498 Benadryl medicatio n Not available Not available Not available 07/29/202420817 7 RxNorm [facility] 11:57:43 16795 azithromy louis medicatio n Not available Not available Not available 07/29/2024 26165 RxNorm [facility] 11:58:11 Medications Name Sig Start [...] Updated DateTime 07/29/2024 157.48 cm 21.8 kg/m2 78881.49 g 119/81 mm[Hg] Lety Khan [facility] 07/29/2024 11:56:58 Social History Question Answer Notes LastModified by Organizat ion Details LastModified Time Do You Have An Advance Directive? No Information n ot available 07/29/2024 Are You Blind Or Do You Have Difficulty Seeing? No [email or web address] Information n ot available 07/29/2024 What Is Your Level Of Caffeine Consumption? Occasional [email or web address] Information not available 07/29/2024 How Much Tobacco Do You Chew? None [email or web address] Information not available 07/29/2024 In The 14 Days Before Symptom Onset, Have You Had Close Contact With A Laboratory-confirm ed COVID-19 While That Case Was Ill? No [email or web address] Information n ot available 07/29/2024 In The 14 Days Before Symptom Onset, Have You Had Close Contact With A Person Who Is Under Investigation For COVID-19 While That Person Was Ill? No [email or web address] Information not available 07/29/2024 Have You Been To An Area Known To Be High Risk For COVID-19? No [email or web address] Information not available 07/29/2024 Are You Deaf Or Do You Have Serious Difficulty Hearing? No [email or web address] Information not available 07/29/2024 What Type Of Diet Are You Following? REGULAR [email or web address] Information n ot available 07/29/2024 What Is The Highest Grade Or Level Of School You Have Completed Or The Highest Degree You Have Received? [id number] [email or web address] Information not available 07/29/2024 Are There Any Guns Present In Your Home? No Information not available 07/29/2024 Do You Use Protection During Sex? No [email or web address] Information not available 07/29/2024 Do You Use Your Seat Belt Or Car Seat Routinely? No [email or web address] Information not available 07/29/2024 Do You Have Smoke And Carbon Monoxide Detectors In Your Home? Yes [email or web address] Information not available 07/29/2024 At What Age Did You Start Smoking Tobacco? 21 [email or web address] Information not available 07/29/2024 How Much Tobacco Do You Smoke? 1 PPD [email or web address] Information not available 07/29/2024 Do You Use Sunscreen Routinely? No [email or web address] Information not available 07/29/2024 Have You Used IV Drugs? No Information not available 07/29/2024 Sex: Unknown Functional Status Question Answer Note LastModified by Organizat ion Details LastModified Time Do you use any illicit or recreational drugs? No Information not available 07/29/2024 What is your level of alcohol consumption? Occasional [email or web address] Information not available 07/29/2024 Are you able to walk independently without assistance or assistive devices? [email or web address] Information not available 07/29/2024 What is your occupation? None Information not available 07/29/2024 What is your exercise level? None Information not available 07/29/2024 Mental Status Question Answer Note LastModified by Organization D etails LastModified Time Do you feel stressed (tense, restless, nervous, or anxious, or unable to sleep at night)? [id number] Information not available 07/29/2024 Family History Nothing [...] Diagnosis SNOMED-CT Code Diagnosis ICD10 Code Diagnosis IMO Codes Diagnosis Note [id number] ANIA Reeves [place] [address] [address] 07/29/2024 11:33:28 07/30/2024 10:26:56 Gynecologic examination 57591432 Z01.721 [id number] WWEBC - declinedPa p - done todaySTI [...] advised. Questions answered. Venereal d isease screening 023305251 Z11.3 21459 Sexually t ransmitted infectious disease 8896668 A64 Breast lump 79364489 N63 .0 [id number] order given for bilateral diagnostic mammogram and u/s Health Concerns Section Related Observation LastModified by Organization Detai ls LastModified Time None Recorded Concern Status LastModified by Organization Details LastModified Time None Recorded Advance Directives Directive N: Payers Insurance Date Sequence Insurance Name Policy Number Policy Woods Covered Member ID Woods Member ID Guarantor Name 08/02/2024 1 [facility] (MEDICAID HMO) [id number] Soha Marrero [id number] Soha Marrero Notes Date Note Type Note Provider Name and Address Organization Details Recorded Time 5 text/html Annual GYNReported by PatientGenitourinary symptomsFor menstrual cycle, patient reportsnormal menses. For urinary symptoms, patient reportsno hematuriaandno incontinence. For vulva, patient reportsno genital lesion. For vagina, patient reportsnormal vaginal discharge.Breast symptomsFor breast, patient reportsno breast pain,no breast lump, andno nipple discharge.ContraceptionFo r current contraception, patient reportsbirth control not practiced.Endocrine symptomsFor sexual complaints, patient reportsno sexual complaints,no pain during intercourse, andnormal libido. For menopausal symptoms, patient reportsno menopausal symptomsandnormal vaginal lubrication.Psychological symptomsFor psychological symptoms, patient reportsno depression,no anxiety, andno pmdd.Preventative measuresFor preventive measures, patient reportsencourage self breast examination,encourage regular exercise,encourage no tobacco use, andencourage regular mammograms starting age 40.34yo wweBC - noneshe is unsure when her last pap was, unsure if she has had any abnormal papsfells bilateral breast lumps (neg nipple discharge, pain, or redness)would like STI testing todayhad urinary frequency last week, symptoms have since resolved h/o lymphoma, in remission since 2023 ANIA Reeves [address], [place], [address], [place] [facility] 07/30/2024 09:32:49 OBGyn Episode Ob Episode Information Episode Created Date Number of Fetuses Patient Bloodtype Patient rh Status Prepregnancy Weight lbs Domestic Partner Domestic Partner Phone Father Name Manager Business Continuity Status 07/30/19 1 CLOSED Fetus Data First Name Last Name Admitted to NICU Weight (g) Sex Living Outcome Pediatric Complications Fetus ID Race Codes Race Delivery Type , Induced [id number] Fly Calculation Initial Fly Date Initial Exam [...] Domestic Partner Domestic Partner Phone Father Name Manager Business Continuity Status 07/30/19 1 CLOSED Fetus Data First Name Last Name Admitted to NICU Weight (g) Sex Living Outcome Pediatric Complications Fetus ID Race Codes Race Delivery Type , Spontane ous [id number] Fly Calculation Initial Fly Date Initial Exam [...] Domestic Partner Domestic Partner Phone Father Name Manager Business Continuity Status 07/30/19 25 1 CLOSED Fetus Data First Name Last Name Admitted to NICU Weight (g) Sex Living Outcome Pediatric Complications Fetus ID Race Codes Race Delivery Type F Prematur e [id number] Vaginal Delivery Fly Calculation Initial Fly Date [...]
--- OUTSIDE RECORDS SUMMARY | 2025-01-25 20:12 | XMS_ITS | Encounter Summary ---
Author Organization [facility] Address [address] [place] [address] Care Team Providers Care Medic Technician Name Role Phone Unavailable Primary Care Provider Unavailabl e Encounter Details Date Type Department Care Team (Late st Contact Info) Description 12/19/2022 Lab Requisition [facility] - Pathology Lab [address] [place] [address] Ishan Escobedo MD [address] [address] Illness, unspecified Social History Tobacco [...] CDT) Case Report Surgical Pathology Report Case: [id number] Authorizing Provider: Ishan Escobedo MD Collected: 12/18/2022 09:00 AM Ordering Location: [facility] Care Pathology Lab Received: 12/19/2022 [...] CD10 co-expression. Axillary lymph node, flow cytometry ([id number]): - [place] light chain restricted CD10+ B-cell population detected (~99% of overall events) Also received from [facility] is a peripheral smear showing circulating follicular lymphoma cells with occasional nuclear clefts. The peripheral blood is involved by follicular lymphoma. 12/19/2022 3:33 PM CDT [facility] PATHOLOGY LAB Clinical History Suspect lymphoma. 12/19/2022 3:33 PM [facility] Materials Received Received are 4 slide(s) and 1 block labeled [id number] along with a copy of the outside pathology report. The materials originate from [facility], [address] [place] [address]. All original materials are returned to the referring institution, along with a copy of our final report. 12/19/2022 3:33 PM T [facility] PATHOLOGY LAB Pathologist Location at [facility] 12/19/2022 3:33 PM T [facility] PATHOLOGY LAB Disclaimer The performance characteristics of all immunohistochemical and indirect immunofluorescence stains (if any) cited in this report were determined by the Histopathology Laboratory of [facility]. Some of these tests were [...] attending (teaching) pathologist. 12/19/2022 3:33 PM T [facility] PATHOLOGY LAB Embedded Images 12/19/2022 3:33 PM T [facility] PATH[facility]Y LAB Pathology/Cytolo gy BIOPSY OF LYMPH NODE / Unknown 12/18/2022 9:00 AM CDT 12/19/2022 1:25 PM CDT us Ishan Escobedo MD LAB - PATHOLOGY/CYTOLOGY ORDERAB LES Final Result [facility] PATHOLOGY LAB [address] [facility] [phone] documented in this encounter Visit Diagnoses Diagnosis Illness, unspecified documented in this encounter
--- OUTSIDE RECORDS SUMMARY | 2025-01-25 20:12 | XMS_ITS | Encounter Summary ---
Author Organization [facility] Address [address] [place] [address] Care Team Providers Care Logistics Specialist Name Role Phone Unavailable Primary Care Provider Unavailabl e Encounter Details Date Type Department Care Team (Late st Contact Info) Description 12/18/2022 Lab Requisition [facility] - Pathology Lab [address] [place] [address] Ishan Escobedo MD [address] [facility] [address] [place] [address] Generalized enlarged lymph nodes Social History [...] AM CDT) Case Report Flow Cytometry Case: [id number] Authorizing Provider: Ishan Escobedo MD Collected: 12/18/2022 09:00 AM Ordering Location: [facility] Care Pathology Lab Received: 12/18/2022 03:11 PM Pathologist: Giovanni Chow MD Specimen: Axillary Lymph Node, RIGHT 12/18/2022 5:15 PM CDT [facility] Final Diagnosis Axillary lymph node, flow cytometry: - [place] light chain restricted CD10+ B-cell population detected (~99% of overall events) 12/18/2022 5:15 PM CDT [facility] at 1714 CDT Flow Cytometry Interpretation Viability: 87%. B-cells: monoclonal, kappa-restricted, expressing CD19, CD20, and CD10. T-cells: not increased, no immunophenotypic aberrancy. A cytospin prepared from the flow cytometry specimen has been reviewed for corporate quality manager purposes. 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 Histologic slides are pending for final subclassification. 12/18/2022 5:15 PM [facility] Flow Cytometry Results Differential Result Comment Flow Cell Count /uL 9,000 Total Viability % 87.0 Lymphocytes % 99 Dim CD45 Region % 0 Monocytes % 0 Granulocytes % 1 12/18/2022 5:15 PM [facility] Reason for test Generalized enlarged lymph nodes 785.6 12/18/2022 5:15 PM [facility] Client Specimen ID # [id number] 12/18/2022 5:15 PM [facility] Number of markers 16 were performed. A-2 Flow CD3 A-4 Flow CD10 A-6 Flow CD20 A-7 Flow CD23 A-12 Flow CD2 A-13 Flow CD4 A-16 Flow CD1a A-3 Flow CD5 A-5 Flow CD19 A-8 Flow CD34 A-9 Flow CD45 A-14 Flow CD7 A-15 Flow CD8 A-17 Flow CD30 A-10 [place]+CD19+ A-11 Lambda+CD19+ 12/18/2022 5:15 PM [facility] Pathologist Location at [facility] 12/18/2022 5:15 PM [facility] Disclaimer Test performed at [facility], [address] [place] [address], [address]. *The established laboratory minimum viability is 70%. [...] PATHOLOGY LAB Embedded Images 5:15 PM CDT [facility] PATHOLOG[facility] LAB Pathology/Cytolo gy AXILLARY LYMPH NODE STRUCTURE / Unknown 12/18/2022 9:00 AM CDT 12/18/2022 3:11 PM CDT us Ishan Escobedo MD LAB - PATHOLOGY/CYTOLOGY ORDERAB LES Final Result [facility] PATH[facility] LAB [address] [phone] documented in this encounter Visit Diagnoses Diagnosis Generalized enlarged lymph nodes Enlargement of lymph nodes documented in this encounter
--- OUTSIDE RECORDS SUMMARY | 2025-01-25 20:12 | XMS_ITS | Encounter Summary ---
Author Organization [facility] Address [address] [place] [address] Care Team Providers Care Electrical Sign Wirer Helper Name Role Phone None, Provider Primary Care Provider Marya ble Encounter Details Date Type Department Care Team (Latest Contact Info) Description 01/24/2025 Travel Social History Tobacco Use Types Packs/Day Years [...] documented as of this encounter Functional Status * Calculated C-SSRS Risk Score (Lifetime/Recent) Answer Date of Assessment Author Status No Risk Indicated 01/24/2025 11:23 PM CDT Stephenie Wood RN Active * [place] Suicide Severity Rating Scale (Screener/Recent Self-Report) Question [...] RN Active documented as of this encounter Plan of Treatment Not on file documented as of this encounter Visit Diagnoses Not on filedocumented in this encounter Care Teams Electrical Sign Wirer Helper Relationship Specialty Start Date End Date None, Provider, PCP - General UNKNOWN PHYSICIAN SPECIALTY 11/19/22 documented as of this encounter
--- OUTSIDE RECORDS SUMMARY | 2025-01-25 20:12 | XMS_ITS | Clinical Summary ---
Author Organization [facility] Address [address] [place] [address] Care Team Providers Care Wrapper Stemmer Hand Name Role Phone Unavailable Primary Care Provider [...] Pain, Mild. Active naloxone (NARCAN) 4 mg/spray [place], Non-Aerosol EMERGENCY USE ONLY: Administer 1 spray [...] Encounters Date Type Department Care Team Description 01/04/2025 External Device Data ST[facility] ABSTRACTION Provider, Abstract 12/07/2024 External Device Data [facility] ABSTRACTION Provider, Abstract 11/23/2024 External Device Data [facility] ABSTRACTION Provider, Abstract 11/10/2024 External Device Data ST[facility] ABSTRACTION Provider, Abstract [...] Comments Blood Pressure 109/66 04/17/2023 8:40 AM BUILDING STONECUTTER Pulse 111 04/17/2023 8:40 AM BUILDING STONECUTTER Temperature 36.6 C (97.9 F) 04/17/2023 8:40 AM BUILDING STONECUTTER Respiratory Rate 10 04/17/2023 8:40 AM BUILDING STONECUTTER Oxygen Saturation 92% 03/27/2023 11:06 AM BUILDING STONECUTTER Inhaled Oxygen Concentration - - Weight 51.3 kg (113 lb) 04/17/2023 8:40 AM BUILDING STONECUTTER Height 162.6 cm (5' 4) 03/24/2023 6:27 PM BUILDING STONECUTTER Body Mass Index 19.4 03/24/2023 6:27 PM BUILDING STONECUTTER Plan of Treatment Health Maintenance Due Date Last Done Comments HEPATITIS B VACCINES (1 of 3 - 19+ 3-dose series) 02/21/2011 HPV/Cotest (21-29) 02/21/2013 HPV VACCINES (1 - 3-dose SCDM series) 02/21/2019 HPV/Cotest (30-65) 02/21/2022 INFLUENZA VACCINE (#1) 2024 04/02/2022 CERVICAL CANCER SCREENING 07/30/2027 PAP SMEAR 07/30/2027 07/29/2024 DTAP/TDAP/TD VACCINES (3 - Td or Tdap) 02/07/2032, 11/05/2020 Insurance [place] Advance Directives For more information, please contact: [phone] * Full Code (Latest Code Status on File) Date Activated Date Inactivated Comments 03/25/2023 1:09 AM 03/26/2023 3:29 PM
--- OUTSIDE RECORDS SUMMARY | 2025-01-25 20:12 | XMS_ITS | Clinical Summary ---
Author Organization [facility] Address [address] [place] [address] Care Team Providers Care Document Scanner Name Role Phone None, Provider MD Primary [...] Encounters Date Type Department Care Team Description 01/24/2025 11:15 PM CDT - 01/25/2025 1:40 AM CDT Emergency [facility] [place] [address] Koko Rankin MD,PHD Mouth Sores Discharge Disposition: Home or Self Care (Routine Discharge) 01/24/2025 Travel from Last 3 Months Social History Tobacco Use Types Packs/Day Years Used Date Smoking Tobacco: Every Day Cigarettes 1 13.8 Started: 2011 Passive Smoke Exposure: Current Tobacco [...] Mass Index 19.74 01/24/2025 11:20 PM CDT Plan of Treatment Health Maintenance Due Date Last Done Comments Annual Physical 02/21/1995 Hepatitis C 02/21/2010 Hepatitis B Vaccines (1 of 3 - 19+ 3-dose series) 02/21/2011 Pneumococcal Vaccine: Pediatrics (0 to 5 Years) and At-Risk Patients (6 to 49 Years) (1 of 2 - PCV) 02/21/2011 HPV Vaccines (1 - 3-dose SCD M series) 02/21/2019 COVID-19 Vaccine (3 - 2024-2 6 season) 2024 11/27/2020, 11/06/2020 Influenza Adult (#1) 2025 04/02/2022 Cervical Cancer Screening Pa p Smear (Age 30 to 64) Every 3 Years 07/30/2027 07/29/2024, 07/29/2024, 07/29/2024 Cervical Cancer Screening Pa p with HPV Testing (Age 30 to 64) Every 5 Years 07/29/2029 07/29/2024 Cervical Cancer Screening wi th HPV 07/29/2029 DTaP, Tdap and Td Vaccines ( 3 - Td or Tdap) 02/07/2032 02/06/2022, 11/05/2020 Hepatitis A Vaccines Aged Out No long er eligible based [...] Procedure Name Priority Date/Time Associated Diagnosis Comments CHORIONIC GONADOTROPIN HCG QL STAT 01/24/2025 11:29 PM CDT COMPREHENSIVE METABOLIC PANEL STAT 01/24/2025 11:29 PM CDT CBC W/DIFF AUTOMATED STAT 01/24/2025 11:29 PM CDT from Last 3 Months Results * COMPREHENSIVE METABOLIC PANEL (01/24/2025 11:29 PM CDT) GLUCOSE 88 70 - 99 MG/DL 01/25/2025 12:20 AM CDT [facility] BUN 17 7 - 18 MG/DL 01/25/2025 12:20 AM CDT [facility] CREATININE S/P/B 0.87 0.55 - 1.02 MG/DL 01/25/2025 12:20 AM CDT [facility] SODIUM S/P/B 138 136 - 145 MMOL/L 01/25/2025 12:20 AM CDT [facility] POTASSIUM S/P/B 4.1 3.5 - 5.1 MMOL/L 01/25/2025 12:20 AM CDT [facility] CHLORIDE S/P/B 101 97 - 115 MMOL/L 01/25/2025 12:20 AM CDT [facility] CO2 31.4 21 - 32 MMOL/L 01/25/2025 12:20 AM CDT [facility] CALCIUM S/P/B 9.1 8.5 - 10.1 MG/DL 01/25/2025 12:20 AM CDT [facility] BILIRUBIN TOTAL S/P/B 0.4 0.2 - 1.2 MG/DL 01/25/2025 12:20 AM CDT [facility] Comment: THIS ASSAY IS NOT RECOMMENDED FOR PATIENTS UNDERGOING TREATMENT WITH ELTROMBOPAG DUE TO THE POTENTIAL FOR FALSELY ELEVATED RESULTS. TOTAL PROTEIN S/P/B 6.4 6.4 - 8.2 G/DL 01/25/2025 12:20 AM CDT [facility] ALBUMIN S/P/B 3.5 3.4 - 5.0 G/DL 01/25/2025 12:20 AM CDT [facility] AST 22 15 - 37 U/L 01/25/2025 12:20 AM CDT [facility] ALT 26 14 - 55 U/L 01/25/2025 12:20 AM CDT [facility] ALKALINE PHOSPHATASE S/P/B 119 50 - 136 U/L 01/25/2025 12:20 AM CDT [facility] ANION GAP 5.6 2 - 10 MMOL/L 01/25/2025 12:20 AM CDT [facility] BUN CREATININE RATIO 19.5 6 - 26 01/25/2025 12:20 AM CDT [facility] A/G RATIO 1.2 1.0 - 2.0 RATIO 01/25/2025 12:20 AM CDT [facility] GFR ESTIMATE >90 >90 ML/MIN/1.7 3 M2 01/25/2025 12:20 AM CDT [facility] Comment: NOTE: eGFR is not [...] Koko Rankin MD,PHD LABORATORY Final Resu lt [facility] [address] [place] [address], [place] [phone] * Qualitative HCG (01/24/2025 11:29 PM CDT) PREG SCREEN-SERUM NEGATIVE 01/25/2025 12:11 AM CDT [facility] 01/24/2025 11:2 9 PM CDT us Koko Rankin MD,PHD LABORATORY Final Resu lt [facility] [address] [place] [address], [place] [phone] * (ABNORMAL) CBC W/DIFF AUTOMATED (01/24/2025 11:29 PM CDT) [facility] Signature WBC 21.04(H) 4.5 - 11.0 x10'3/uL 01/25/2025 12:04 AM CDT [facility] RBC 2.63(L) 4.20 - 5.40 x10'6/uL 01/25/2025 12:04 AM CDT [facility] HGB 7.8(L) 12.0 - 16.0 G/DL 01/25/2025 12:04 AM CDT [facility] HCT 24.7(L) 38.0 - 48.0 % 01/25/2025 12:04 AM CDT [facility] MCV 93.9 81.0 - 99.0 FL 01/25/2025 12:04 AM CDT [facility] MCH 29.7 27.0 - 31.0 PG 01/25/2025 12:04 AM CDT [facility] MCHC 31.6(L) 32.0 - 36.0 G/DL 01/25/2025 12:04 AM CDT [facility] RDW 18.4(H) 11.5 - 14.5 % 01/25/2025 12:04 AM CDT [facility] PLT 109(L) 130 - 400 x10'3/uL 01/25/2025 12:04 AM CDT [facility] MPV 10.9 9.3 - 12.2 FL 01/25/2025 12:04 AM CDT [facility] DIFFERENTIAL TYPE MANUAL DIFFERENTIAL 01/25/2025 12:32 AM CDT [facility] SEG NEUTROPHILS 4 % 12:32 AM CDT [facility] LYMPHOCYTES 95 % 01/25/2025 12:32 AM CDT [facility] MONOCYTES 1 % 01/25/2025 12:32 AM CDT [facility] ABS. NEUTROPHILS 0.84(L) 1.80 - 7.70 x10'3/uL 01/25/2025 12:32 AM CDT [facility] ABS. LYMPHOCYTES 19.99(H) 1.00 - 4.80 x10'3/uL 01/25/2025 12:32 AM CDT [facility] ABS. MONOCYTES 0.21(L) 0.24 - 0.86 x10'3/uL 01/25/2025 12:32 AM CDT [facility] RBC MORPHOLOGY RBC MORPHOLOGY APPEARS NORMAL. SLIDE REVIEWED. 01/25/2025 12:32 AM CDT [facility] PLT EST. ADEQUATE 01/25/2025 12:32 AM CDT [facility] 01/24/2025 11:2 9 PM CDT Koko Rankin MD,PHD LABORATORY Final Resu lt [facility] [address] [place] [address], from Last 3 Months Insurance [employer] Advance Directives Documents on File Type Date Recorded Patient Bathroom Tiling Professional Expl anation Legal Documents 05/21/2023 3:56 PM Care Teams Document Scanner Relationship Specialty Start Date End Date None, Provider, MD PCP - General UNKNOWN PHYSICIAN SPECIALTY 11/19/22
--- OUTSIDE RECORDS SUMMARY | 2025-01-25 20:12 | XMS_ITS | Patient Health Record ---
Author Organization [facility] Address [address] [place] [address] Care Team Providers Care Integration Developer Name Role Phone Satya Fernandez Primary Care Provider Richard Fish Unavailable [phone] Minerva Peacock Unavailable [phone] Allergies Allergen (clinical drug ingredient) Drug/Non Drug Allergy documented on EMR Reaction Allergy Type Onset Date Status azithromycin Zithromax Unknown Drug Allergy Acti ve codeine Codeine Unknown Drug Allergy Active Results Component Value Reference Range Notes 14 Panel Urine Drug Screen Reviewed date:11/11/2024 02:32:46 PM Interpretation: Performing Lab: Notes/Report: THC POS JULISA neg MOP (OPI) neg AMP neg MET neg BAR neg BZO POS MDMA neg MTD neg OXY POS PCP neg BUP POS TCA neg FTY neg 12 Panel Urine Drug Screen Reviewed date:08/26/2024 [...] neg OXY neg PCP neg BUP pos 14 Panel Urine Drug Screen Reviewed date:01/07/2025 11:26:14 AM Interpretation: Performing Lab: Notes/Report: THC POS JULISA neg MOP (OPI) neg AMP neg MET neg BAR neg BZO POS MDMA neg MTD neg OXY POS PCP neg BUP POS TCA neg FTY ne Reason For Referral Reason anxiety, shanna Diagnosis 1 Opioid use disorder (F11.99) Referral Organization [facility], later [facility] Referring Provider First Name Minerva Referring Provider [...] future needs, questions, concerns. Referral Priority Routine Reason boil in perineum Diagnosis 1 Boil (L02.92) Referral Organization [facility] Referring Provider First Name Satya Referring Provider Last Name Rebecca Referring Provider Speciality Internal M edicine Referred Provider Specialty Surgery General Notes Beena Red RN 01/2025 02:12:27 PM >confirmed taking clients insurance referral faxed letter mailed Clinical Notes [facility], [address] [facility] [address] [place] [address], , fax [phone] Referral Priority Urgent Medications Medication SIG (Take, Route, Frequency, Duration) Notes Start Date End Date Status oxyCODONE HCl 10 MG 1 tablet as needed Orally every 4 hours; Duration: 15 days As needed severe pain 01/12/2025 Active clonazePAM 2 MG 1 tablet Orally every 8 hours; Duration: 15 days As needed SEVERE ANXIETY 01/11/2025 Active Buprenorphine HCl-Naloxone HCl 8-2 MG 1 film under the tongue and allow to dissolve Sublingual daily; Duration: 30 days 01/10/2025 Active Sertraline HCl 100 MG 1 tablet Orally On ce a day; Duration: 30 days Active clonazePAM 2 MG 1 tablet Orally every 8 hours; Duration: 15 days As needed severe anxiety 01/11/2025 Active oxyCODONE HCl 10 MG 1 tablet as needed Orally every 4 hours; Duration: 10 days As needed severe pain 01/03/2025 Active Social History Tobacco Use: Social History Observation Description Date Details (start date - stop date) Current Smoker 08/18/2004 - NA Sex Assigned At : Social History Observation Description Sex Assigned At Female Tobacco Control (Standard) Question Answer Notes Tobacco use: Current smoker When did you start smoking? 08/18/2004 How often do you smoke cigarettes? Every day How many cigarettes a day do you smoke? 21-30 How soon after you wake up d o you smoke your first cigarette? Within 5 minutes Are you interested in quitting? Thinking about q uitting Additional Findings: Tobacco user Heavy cigarette smoker (20-39 cigs/day),Very heavy cigarette smoker (40+ cigs/day) Additional Findings: Tobacco non-user Does not u se moist powdered tobacco Problems Problem Type SNOMED Code ICD Code Onset Dates Problem Status W/U Status Risk Notes Problem Tobacco user (112089411) Nicotine dependence, unspecified, uncomplicated (F17.200) Active confirmed Problem Anxiety (08786281) Anxiety (F41.9) Active confirmed Problem Exacerbation of asthma (209723940) Asthma exacerbation (J45.901) Active confirmed Problem Mild intermittent asthma (565208584) Mild intermittent asthma without complication (J45.20) Active confirmed Problem Tobacco use (346346680) Tobacco use disorder (F17.200) Active confirmed Problem Lymphoma involves multiple lymph node regions (finding) (633838661) Lymphoma of lymph nodes of multiple regions, 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) Active confirmed Problem Opioid use disorder (8367756489) Opioid use disorder (F11.99) Active confirmed Vital Signs Heart Rate 86 /min 01/07/2025 Temperature 98.5 degrees Fahrenheit 01/07/2025 Respiratory Rate 16 /min 01/07/2025 Blood pressure diastolic 64 mm Hg 01/07/2025 Oximetry 95 % 01/07/2025 Height 62in in 01/07/2025 Blood pressure systolic 98 mm Hg 01/07/2025 Weight 114.4lbs lbs 01/07/2025 BMI 20.92 kg/m2 01/07/2025 Encounters Encounter Location Date Provider Diagnosis [facility] [address] [place] [address] 01/29/2024 Jenia Heavenila Opioid use disorder F11.99 and Tobacco use disorder F17.[address] [place] [address] 05/13/2024 Minerva Peacock Patient underweight R63.6 ; Opioid use disorder F11.99 ; Non-tobacco user Z78.9 and Nutritional counseling Z71.3 [facility] [address] [address] 05/27/2024 Jenia Heericka Opioid use disorder F11.99 and Nicotine dependence, unspecified, uncomplicated F17.200 [facility] [address] [address] 07/08/2024 Jenia Heavens Opioid use disorder F11.99 and Nicotine dependence, unspecified, uncomplicated F17.200 [facility] [address] [address] 08/19/2024 Jenia Heavenila Opioid use disorder F11.99 and Tobacco use disorder F17.200 [facility] [address] [address] 10/01/2024 Satya Fernandez Opioid use disorder F11.99 ; Lymphoma of lymph nodes of multiple regions, unspecified lymphoma type C85.98 ; Tobacco use disorder F17.200 and Anxiety F41.[address] [place] [address] 10/12/2024 Satya Fernandez Opioid use disorder F11.99 ; Lymphoma of lymph nodes of multiple regions, unspecified lymphoma type C85.98 and Anxiety F41.[address] [place] [address] 11/11/2024 Satya Fernandez Lymphoma of lymph nodes of multiple regions, unspecified lymphoma type C85.98 ; Opioid use disorder F11.99 and Anxiety F41.[address] [place] [address] 12/10/2024 Satya Fernandez Opioid use disorder F11.99 ; Anxiety F41.9 and Diarrhea R19.[address] [place] [address] 01/07/2025 Satya Fernandez Opioid use disorder F11.99 ; Anxiety F41.9 ; Boil L02.92 and Lymphoma of lymph nodes of multiple regions, unspecified lymphoma type C85.98 [facility] [address] [place] [address] 09/24/2024 [facility] [place] [address] [place] [address] 10/13/2024 Satya Fernandez [address] [place] [address] 10/28/2024 Richard Fish [address] [place] [address] 11/03/2024 Satya Fernandez UTI symptoms R39.[address] [place] [address] 11/29/2024 Satya Fernandez Anxiety F41.9 [address] [place] [address] 01/03/2025 Satya Fernandez [address] [place] [address] 01/04/2025 Satya Fernandez Anxiety F41.[address] [place] [address] 01/11/2025 Satya Fernandez Anxiety F41.[address] [place] [address] 01/12/2025 Satya Fernandez [address] [place] [address] 01/24/2025 Satya Fernandez [address] [place] [address] 01/24/2025 Satya Fernandez [address] [place] [address] 01/24/2025 Satya Fernandez [address] [place] [place] [address] 09/27/2024 Richard Fish [address] [place] [address] 10/11/2024 Satya Fernandez [address] [place] [place] [address] 10/20/2024 Satya Fernandez Lymphoma of lymph nodes of multiple regions, unspecified lymphoma type C85.98 ; Anxiety F41.9 and Opioid use disorder F11.99 [facility] [address] [place] [address] 10/25/2024 Satya Fernandez [facility] [address] [place] [address] 10/25/2024 Satya Fernandez [address] [place] [address] 10/25/2024 Satya Fernandez [address] [place] [facility] [place] [address] 10/25/2024 Satya Fernandez [address] [place] [address] [place] [address] 10/25/2024 Satya Fernandez Lymphoma of lymph nodes of multiple regions, unspecified lymphoma type C85.98 ; Anxiety F41.9 and Opioid use disorder F11.99 [facility] [address] [address] 10/26/2024 Satya Fernandez [facility] [address] [address] 10/26/2024 Satya Fernandez [facility] [address] [address] 11/23/2024 Satya Fernandez Lymphoma of lymph nodes of multiple regions, unspecified lymphoma type C85.98 and Anxiety F41.9 [facility] [address] [address] 12/07/2024 Satya Fernandez [facility] [address] [address] 12/07/2024 Satya Fernandez Lymphoma of lymph nodes of multiple regions, unspecified lymphoma type C85.98 [facility] [address] [address] 12/19/2024 Satya Fernandez Lymphoma of lymph nodes of multiple regions, unspecified lymphoma type C85.98 [facility] [address] [address] 12/21/2024 Satya Fernandez [facility] [address] [address] 12/27/2024 Satya Fernandez Lymphoma of lymph nodes of multiple regions, unspecified lymphoma type C85.98 and Anxiety F41.9 [facility] [address] [address] 12/27/2024 Satya Fernandez [address] [place] [address] 01/03/2025 Satya Fernandez Lymphoma of lymph nodes of multiple regions, unspecified lymphoma type C85.[address] [place] [address] 01/10/2025 Satya Fernandez [address] [place] [address] 01/10/2025 Satya Fernandez [address] [address] 01/10/2025 Satya Fernandez Opioid use disorder F11.99 and Anxiety F41.[address] [address] 01/11/2025 Satya Fernandez [address] [address] 01/12/2025 Satya Fernandez [address] [address] 01/12/2025 Satya Fernandez [address] [address] 01/12/2025 Satya Fernandez Assessments Encounter Date Diagnosis (ICD Code) Assessment Notes Treatment Notes Treatment Clinical Notes Section Notes 10/01/2024 Opioid use disorder (ICD-10 - F11.99) 11/03/2024 UTI symptoms (ICD-10 - R39.9) 12/19/2024 Lymphoma of lymph nodes of multiple regions, unspecified lymphoma type (ICD-10 - C85.98) 11/29/2024 Anxiety (ICD-10 - F41.9) 01/07/2025 Anxiety (ICD-10 - F41.9) SHE WILL INCREASE CLONAZEPAM TO 2 MG TID AND WILL INCREASE RX TO 2 MG TABS WHEN REFILL IS DUE. 01/07/2025 Opioid use disorder (ICD-10 - F11.99) 01/03/2025 Lymphoma of lymph nodes of multiple regions, unspecified lymphoma type (ICD-10 - C85.98) 10/12/2024 Lymphoma of lymph nodes of multiple regions, unspecified lymphoma type (ICD-10 - C85.98) INCREASE OXYCODONE DUE TO UNCONTROLLED PAIN.2ND RX FOR OXYCODONE DUE TO SHORTAGE OF 10 MG TABS 10/12/2024 Opioid use disorder (ICD-10 - F11.99) Message left with pharmacy re: concomitant Suboxone and Oxycodone 12/07/2024 Lymphoma of lymph nodes of multiple regions, unspecified lymphoma type (ICD-10 - C85.98) 01/04/2025 Anxiety (ICD-10 - F41.9) 08/19/2024 Tobacco use disorder (ICD-10 - F17.200) 08/19/2024 Opioid use disorder (ICD-10 - F11.99) 01/10/2025 Opioid use disorder (ICD-10 - F11.99) 12/27/2024 Lymphoma of lymph nodes of multiple regions, unspecified lymphoma type (ICD-10 - C85.98) 12/10/2024 Anxiety (ICD-10 - F41.9) 12/10/2024 Opioid use disorder (ICD-10 - F11.99) 10/25/2024 Lymphoma of lymph nodes of multiple regions, unspecified lymphoma type (ICD-10 - C85.98) 05/27/2024 Nicotine dependence, unspecified, uncomplicated (ICD-10 - F17.200) 05/27/2024 Opioid use disorder (ICD-10 - F11.99) 10/20/2024 Lymphoma of lymph nodes of multiple regions, unspecified lymphoma type (ICD-10 - C85.98) 05/13/2024 Patient underweight (ICD-10 - R63.6) 05/13/2024 Opioid use disorder (ICD-10 - F11.99) 01/11/2025 Anxiety (ICD-10 - F41.9) 01/29/2024 Tobacco use disorder (ICD-10 - F17.200) 01/29/2024 Opioid use disorder (ICD-10 - F11.99) 11/23/2024 Lymphoma of lymph nodes of multiple regions, unspecified lymphoma type (ICD-10 - C85.98) 11/11/2024 Lymphoma of lymph nodes of multiple regions, unspecified lymphoma type (ICD-10 - C85.98) 11/11/2024 Opioid use disorder (ICD-10 - F11.99) 07/08/2024 Opioid use disorder (ICD-10 - F11.99) 10/01/2024 Lymphoma of lymph nodes of multiple regions, unspecified lymphoma type (ICD-10 - C85.98) F/U WITH WASH U FOR TREATMENT 07/08/2024 Nicotine dependence, unspecified, uncomplicated (ICD-10 - F17.200) 11/11/2024 Anxiety (ICD-10 - F41.9) 11/23/2024 Anxiety (ICD-10 - F41.9) 05/13/2024 Non-tobacco user (ICD-10 - Z78.9) 10/25/2024 Anxiety (ICD-10 - F41.9) 12/10/2024 Diarrhea (ICD-10 - R19.7) 12/27/2024 Anxiety (ICD-10 - F41.9) 01/10/2025 Anxiety (ICD-10 - F41.9) 10/12/2024 Anxiety (ICD-10 - F41.9) INCREASE CLONAZEPAM DUE TO UNCONTROLLED ANXIETY. DISCUSSED RISK OF RESPIRATORY DEPRESSION WITH OPIOIDS OR ALCOHOL. SHE UNDERSTANDS THE RISKS, INCLUDING . 10/01/2024 Tobacco use disorder (ICD-10 - F17.200) 01/07/2025 Boil (ICD-10 - L02.92) 10/20/2024 Anxiety (ICD-10 - F41.9) 01/07/2025 Lymphoma of lymph nodes of multiple regions, unspecified lymphoma type (ICD-10 - C85.98) 10/01/2024 Anxiety (ICD-10 - F41.9) 10/25/2024 Opioid use disorder (ICD-10 - F11.99) 05/13/2024 Nutritional counseling (ICD-10 - Z71.3) 10/20/2024 Opioid use disorder (ICD-10 - F11.99) 01/29/2024 Other Client agrees to take medication [...] office with questions or concerns. Patient may self-administer their own medications or may self-administer their own oral medications per [facility] Protocol. 07/08/2024 Other Patient agrees to take medication as prescribed. Discussed medication side effects, adverse effects, risks, benefits, as well as interactions. Encouraged non-use of opioids. Has naloxone. Recommended participation in recovery groups and/or counseling services. May contact office with questions or concerns. Patient may self-administer their own medications or may self-administer their own oral medications per [facility] Protocol. 08/19/2024 Other Discussed medication side effects, adverse effects, risks, benefits, as well as interactions. Encouraged non-use of opioids. Has naloxone. Recommended participation in recovery groups and/or counseling services. May contact office with questions or concerns. Patient may self-administer their own medications or may self-administer their own oral medications per [facility] Protocol. 11/03/2024 Other Learning About the Safe Use of Antibiotics material was discussed. Pt was educated on use of antibiotic medication including dosing, side effects, adverse effects and anticipated response. Pt was also educated on importance of completing full course of treatment as ordered. Patient voiced understanding of all. Plan Of Treatment No Information Insurance Providers Payer Name Payer Address Payer Phone Subscriber Number Group Number Insured Name Patient Relationship to Insured Coverage Start Date Coverage End Date [employer] [address] [place] [address] [id number] Soha Marrero Self - patient is the insured 2 [employer] [address] [place] [address] [id number] Soha Marrero Self - patient is the insured 4 Medical (General) History Medical History History ICD Code Bipolar 1 Disorder Alcohol Use Disorder Lymphoma Surgical History Surgery Date(Month/Year) Ectopic Open Chest Surgery Chemo Port 2022 Hospitalization History Reason Date(Month/Year) Aimeer x2
--- NOTE | 2025-01-25 20:29 | PC.NURSE ---
Pt. call x2 for triage with no reply.
--- NOTE | 2025-01-25 20:36 | PC.NURSE ---
Pt. called to be triaged. Pt. alerted this RN that she had a BM on herself. Pt. provided with pants. Pt. is ambulatory with a steady gait. Pt. asked to go to bathroom to clean up prior to being triaged.
[2025-01-25 20:46] VITALS: BP 114/61; PULSE 109; RESP 18; TEMP 37.2; O2SAT 97
[2025-01-25 23:06] VITALS: BP 114/88; PULSE 96; RESP 18; O2SAT 100
--- NOTE | 2025-01-25 23:56 | PC.NURSE ---
23:30 pt was walking down the hallway with steady gait yelling and screaming and walked backed into her room. This RN went into pt room and asked what she needs. Pt states she needs pain meds and a bedpan. Pt states she needs two shots of morphine and one shot of dilaudid. Pt sentences were garbled and not making sense. This RN gave pt a bedpan and reassured pt that docs are doing their best during this busy time to see pts and that this RN has to wait for a doc to put in orders. MDs were aware that pt wanted pain meds. 23:56 Pt ambulatory down the espinoza with steady gait yelling and screaming about the staff here. Pt exited ED without being seen by provider at this time. All pt belongings are gone and pt exited ED with no difficulties and steady gait.
--- OUTSIDE RECORDS SUMMARY | 2025-01-26 00:05 | XMS_ITS ---
Author Organization [facility] Address [address] [place] [address] Phone Care Team Providers Care Flute Polisher Name Role Phone Gabriel Salmeron MD Unavailable [phone] Brooks Sosa MD Unavailable Provider, None Primary [...] current use Anxiety 05/07/2023 Under care of alf service 05/07/2023 Overview (05/07/2023): Two previous stays at alf Child living with her parents Current Treatment [...] 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 Hx of alf time
--- OUTSIDE RECORDS SUMMARY | 2025-01-26 00:06 | XMS_ITS | Patient Health Record ---
Author Organization [facility] Address [address] [place] [address] Care Team Providers Care Surgical Assistant Certified Name Role Phone Satya Fernandez Primary Care Provider Richard Fish Unavailable [phone] Minerva Peacock Unavailable [phone] Allergies Allergen (clinical drug ingredient) Drug/Non Drug [...] pos 12 Panel Urine Drug Screen Reviewed date:05/27/2024 [...] neg OXY pos PCP neg BUP pos 14 Panel Urine Drug Screen Reviewed date:11/11/2024 02:32:46 PM Interpretation: Performing Lab: Notes/Report: THC POS JULISA neg MOP (OPI) neg AMP neg MET neg BAR neg BZO POS MDMA neg MTD neg OXY POS PCP neg BUP POS TCA neg FTY neg 14 Panel Urine Drug Screen Reviewed date:01/07/2025 11:26:14 AM Interpretation: Performing Lab: Notes/Report: THC POS JULISA neg MOP (OPI) neg AMP neg MET neg BAR neg BZO POS MDMA neg MTD neg OXY POS PCP neg BUP POS TCA neg FTY ne Reason For Referral Reason anxiety, shanna Diagnosis 1 Opioid use disorder (F11.99) Referral Organization [facility] Referring Provider First Name Minerva Referring [...] perineum Diagnosis 1 Boil (L02.92) Referral Organization [facility] Referring Provider First Name Satya Referring Provider Last Name Rebecca Referring Provider Speciality Internal M edicine Referred Provider Specialty Surgery General Notes Beena Red RN 01/2025 02:12:27 PM >confirmed taking clients insurance referral faxed letter mailed Clinical Notes [facility], [address] [facility] [address] [place] [address], , fax [phone] Referral Priority Urgent Medications Medication SIG (Take, Route, Frequency, Duration) Notes Start Date End Date Status Buprenorphine HCl-Naloxone HCl 8-2 MG 1 film under the tongue and allow to dissolve Sublingual daily; Duration: 30 days 01/10/2025 Active oxyCODONE HCl 10 MG 1 tablet as needed Orally every 4 hours; Duration: 15 days As needed severe pain 01/25/2025 Active Sertraline HCl 100 MG 1 tablet Orally On ce a day; Duration: 30 days Active clonazePAM 2 MG 1 tablet Orally every 8 hours; Duration: 15 days As needed severe anxiety 01/11/2025 Active oxyCODONE HCl 10 MG 1 tablet as needed Orally every 4 hours; Duration: 10 days As needed severe pain 01/03/2025 Active clonazePAM 2 MG 1 tablet Orally every 8 hours; Duration: 15 days As needed SEVERE ANXIETY 01/25/2025 Active Social History Tobacco Use: Social History [...] W/U Status Risk Notes Problem Tobacco user (682311536) Nicotine dependence, unspecified, uncomplicated (F17.200) Active confirmed Problem Anxiety (24389127) Anxiety (F41.9) Active confirmed Problem Exacerbation of asthma (003871456) Asthma exacerbation (J45.901) Active confirmed Problem Mild intermittent asthma (295407345) Mild intermittent asthma without complication (J45.20) Active confirmed Problem Tobacco use (795013829) Tobacco use disorder (F17.200) Active confirmed Problem Lymphoma involves multiple lymph node regions (finding) (219604412) Lymphoma of lymph nodes of multiple regions, 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) Active confirmed Problem Opioid use disorder (8593600043) Opioid use disorder (F11.99) Active confirmed Vital Signs Heart Rate 86 /min 01/07/2025 Temperature 98.5 degrees Fahrenheit 01/07/2025 Respiratory Rate 16 /min 01/07/2025 Blood pressure diastolic 64 mm Hg 01/07/2025 Oximetry 95 % 01/07/2025 Height 62in in 01/07/2025 Blood pressure systolic 98 mm Hg 01/07/2025 Weight 114.4lbs lbs 01/07/2025 BMI 20.92 kg/m2 01/07/2025 Encounters Encounter Location Date Provider Diagnosis [facility] [address] [address] 01/29/2024 Jenia Heavenila Opioid use disorder F11.99 and Tobacco use disorder F17.[address] [place] [address] 05/13/2024 Minerva Peacock Patient underweight R63.6 ; Opioid use disorder F11.99 ; Non-tobacco user Z78.9 and Nutritional counseling Z71.3 [facility] [address] [address] 05/27/2024 Jenia Heericka Opioid use disorder F11.99 and Nicotine dependence, unspecified, uncomplicated F17.200 [facility] [address] [address] 07/08/2024 Jenia Heavens Opioid use disorder F11.99 and Nicotine dependence, unspecified, uncomplicated F17.200 [facility] [address] [address] 08/19/2024 Jenia Heavenila Opioid use disorder F11.99 and Tobacco use disorder F17.200 [facility] [address] [address] 10/01/2024 Satya Fernandez Opioid use disorder F11.99 ; Lymphoma of lymph nodes of multiple regions, unspecified lymphoma type C85.98 ; Tobacco use disorder F17.200 and Anxiety F41.[address] [place] [address] 10/12/2024 Satya Fernandez Opioid use disorder F11.99 ; Lymphoma of lymph nodes of multiple regions, unspecified lymphoma type C85.98 and Anxiety F41.[address] [place] [address] 11/11/2024 Satya eFrnandez Lymphoma of lymph nodes of multiple regions, unspecified lymphoma type C85.98 ; Opioid use disorder F11.99 and Anxiety F41.[address] [place] [address] 12/10/2024 Satya Fernandez Opioid use disorder F11.99 ; Anxiety F41.9 and Diarrhea R19.[address] [place] [address] 01/07/2025 Satya Fernandez Opioid use disorder F11.99 ; Anxiety F41.9 ; Boil L02.92 and Lymphoma of lymph nodes of multiple regions, unspecified lymphoma type C85.98 [facility] [address] [place] [address] 09/24/2024 [facility] [place] [address] [place] [address] 10/13/2024 Satya Fernandez [address] [address] 10/28/2024 Richard Fish [address] [place] [address] 11/03/2024 Satya Fernandez UTI symptoms R39.[address] [place] [address] 11/29/2024 Satya Fernandez Anxiety F41.9 [address] [place] [address] 01/03/2025 Satya Fernandez [address] [place] [address] 01/04/2025 Satya Fernandez Anxiety F41.[address] [place] [address] 01/11/2025 Satya Fernandez Anxiety F41.[address] [place] [address] 01/12/2025 Satya Fernandez [facility] [address] [place] [address] 09/27/2024 Richard Fish [facility] [address] [place] [address] 10/11/2024 Satya Fernandez [facility] [address] [place] [address] 10/20/2024 Satya Fernandez Lymphoma of lymph nodes of multiple regions, unspecified lymphoma type C85.98 ; Anxiety F41.9 and Opioid use disorder F11.99 [facility] [address] [place] [address] 10/25/2024 Satya Fernandez [facility] [address] [place] [address] 10/25/2024 Satya Fernandez [facility] [address] [place] [address] 10/25/2024 Satya Fernandez [facility] [address] [place] [address] 10/25/2024 Satya Fernandez [facility] [address] [place] [address] 10/25/2024 Satya Fernandez Lymphoma of lymph nodes of multiple regions, unspecified lymphoma type C85.98 ; Anxiety F41.9 and Opioid use disorder F11.99 [facility] [address] [place] [address] 10/26/2024 Satya Fernandez [facility] [address] [place] [address] 10/26/2024 Satya Fernandez [facility] [place] [address] 11/23/2024 Satya Fernandez Lymphoma of lymph nodes of multiple regions, unspecified lymphoma type C85.98 and Anxiety F41.9 [facility] [address] [address] 12/07/2024 Satya Fernandez [address] [place] [address] 12/07/2024 Satya Fernandez Lymphoma of lymph nodes of multiple regions, unspecified lymphoma type C85.98 [facility] [address] [address] 12/19/2024 Satya Fernandez Lymphoma of lymph nodes of multiple regions, unspecified lymphoma type C85.98 [facility] [address] [address] 12/21/2024 Satya Fernandez [address] [place] [address] 12/27/2024 Satya Fernandez Lymphoma of lymph nodes of multiple regions, unspecified lymphoma type C85.98 and Anxiety F41.9 [address] [place] [address] 12/27/2024 Satya Fernandez [address] [place] [address] 01/03/2025 Satya Fernandez Lymphoma of lymph nodes of multiple regions, unspecified lymphoma type C85.[address] [place] [address] 01/10/2025 Satya Fernandez [address] [place] [address] 01/10/2025 Satya Fernandez [address] [place] [address] 01/10/2025 Satya Fernandez Opioid use disorder F11.99 and Anxiety F41.[address] [place] [address] 01/11/2025 Satya Fernandez [address] [place] [address] 01/12/2025 Satya Fernandez [address] [address] 01/12/2025 Satya Fernandez [address] [address] 01/12/2025 Satya Fernandez [address] [address] 01/24/2025 Satya Fernandez [address] [address] 01/24/2025 Satya Fernandez [address] [address] 01/24/2025 Satya Fernandez [address] [address] 01/25/2025 Satya Fernandez [address] [address] 01/25/2025 Satya Fernandez [address] [address] 01/25/2025 Satya Fernandez Anxiety F41.9 Assessments Encounter Date Diagnosis (ICD Code) Assessment Notes Treatment Notes Treatment Clinical Notes Section Notes 10/01/2024 Opioid use disorder (ICD-10 - F11.99) 11/03/2024 UTI symptoms (ICD-10 - R39.9) 07/08/2024 Opioid use disorder (ICD-10 - F11.99) 05/27/2024 Nicotine dependence, unspecified, uncomplicated (ICD-10 - F17.200) 05/27/2024 Opioid use disorder (ICD-10 - F11.99) 05/13/2024 Patient underweight (ICD-10 - R63.6) 05/13/2024 Opioid use disorder (ICD-10 - F11.99) 01/29/2024 Tobacco use disorder (ICD-10 - F17.200) 01/29/2024 Opioid use disorder (ICD-10 - F11.99) 08/19/2024 Tobacco use disorder (ICD-10 - F17.200) 08/19/2024 Opioid use disorder (ICD-10 - F11.99) 01/04/2025 Anxiety (ICD-10 - F41.9) 12/10/2024 Anxiety (ICD-10 - F41.9) 10/20/2024 Lymphoma of lymph nodes of multiple regions, unspecified lymphoma type (ICD-10 - C85.98) 12/10/2024 Opioid use disorder (ICD-10 - F11.99) 11/29/2024 Anxiety (ICD-10 - F41.9) 11/11/2024 Lymphoma of lymph nodes of multiple regions, unspecified lymphoma type (ICD-10 - C85.98) 11/11/2024 Opioid use disorder (ICD-10 - F11.99) 10/25/2024 Lymphoma of lymph nodes of multiple regions, unspecified lymphoma type (ICD-10 - C85.98) 10/01/2024 Lymphoma of lymph nodes of multiple regions, unspecified lymphoma type (ICD-10 - C85.98) F/U WITH WASH U FOR TREATMENT 10/12/2024 Lymphoma of lymph nodes of multiple regions, unspecified lymphoma type (ICD-10 - C85.98) INCREASE OXYCODONE DUE TO UNCONTROLLED PAIN.2ND RX FOR OXYCODONE DUE TO SHORTAGE OF 10 MG TABS 10/12/2024 Opioid use disorder (ICD-10 - F11.99) Message left with pharmacy re: concomitant Suboxone and Oxycodone 01/11/2025 Anxiety (ICD-10 - F41.9) 01/25/2025 Anxiety (ICD-10 - F41.9) 01/10/2025 Opioid use disorder (ICD-10 - F11.99) 01/07/2025 Anxiety (ICD-10 - F41.9) SHE WILL INCREASE CLONAZEPAM TO 2 MG TID AND WILL INCREASE RX TO 2 MG TABS WHEN REFILL IS DUE. 12/27/2024 Lymphoma of lymph nodes of multiple regions, unspecified lymphoma type (ICD-10 - C85.98) 12/19/2024 Lymphoma of lymph nodes of multiple regions, unspecified lymphoma type (ICD-10 - C85.98) 12/07/2024 Lymphoma of lymph nodes of multiple regions, unspecified lymphoma type (ICD-10 - C85.98) 01/07/2025 Opioid use disorder (ICD-10 - F11.99) 01/03/2025 Lymphoma of lymph nodes of multiple regions, unspecified lymphoma type (ICD-10 - C85.98) 11/23/2024 Lymphoma of lymph nodes of multiple regions, unspecified lymphoma type (ICD-10 - C85.98) 10/20/2024 Anxiety (ICD-10 - F41.9) 12/27/2024 Anxiety (ICD-10 - F41.9) 11/23/2024 Anxiety (ICD-10 - F41.9) 01/07/2025 Boil (ICD-10 - L02.92) 01/10/2025 Anxiety (ICD-10 - F41.9) 07/08/2024 Nicotine dependence, unspecified, uncomplicated (ICD-10 - F17.200) 10/25/2024 Anxiety (ICD-10 - F41.9) 11/11/2024 Anxiety (ICD-10 - F41.9) 10/12/2024 Anxiety (ICD-10 - F41.9) INCREASE CLONAZEPAM DUE TO UNCONTROLLED ANXIETY. DISCUSSED RISK OF RESPIRATORY DEPRESSION WITH OPIOIDS OR ALCOHOL. SHE UNDERSTANDS THE RISKS, INCLUDING . 10/01/2024 Tobacco use disorder (ICD-10 - F17.200) 12/10/2024 Diarrhea (ICD-10 - R19.7) 05/13/2024 Non-tobacco user (ICD-10 - Z78.9) 05/13/2024 Nutritional counseling (ICD-10 - Z71.3) 10/20/2024 Opioid use disorder (ICD-10 - F11.99) 10/01/2024 Anxiety (ICD-10 - F41.9) 10/25/2024 Opioid use disorder (ICD-10 - F11.99) 01/07/2025 Lymphoma of lymph nodes of multiple regions, unspecified lymphoma type (ICD-10 - C85.98) 01/29/2024 Other Client agrees to take medication [...] may self-administer their own oral medications per [facility] Protocol. 07/08/2024 Other Patient agrees to take medication as prescribed. Discussed medication side effects, adverse effects, risks, benefits, as well as interactions. Encouraged non-use of opioids. Has naloxone. Recommended participation in recovery groups and/or counseling services. May contact office with questions or concerns. Patient may self-administer their own medications or may self-administer their own oral medications per Mcdougal Protocol. 08/19/2024 Other Discussed medication side effects, adverse effects, risks, benefits, as well as interactions. Encouraged non-use of opioids. Has naloxone. Recommended participation in recovery groups and/or counseling services. May contact office with questions or concerns. Patient may self-administer their own medications or may self-administer their own oral medications per Mcdougal Protocol. 11/03/2024 Other Learning About the Safe [...] Insured Coverage Start Date Coverage End Date [employer] [address] [place] [address] [id number] Soha Marrero Self - patient is the insured 2 [employer] [address] [place] [address] [id number] Soha Marrero Self - patient is the insured 4 Medical (General) History Medical History History ICD Code Bipolar 1 Disorder Alcohol Use Disorder Lymphoma Surgical History Surgery Date(Month/Year) Ectopic Open Chest Surgery Chemo [place] 2022 Hospitalization History Reason Date(Month/Year) [place] x2
--- OUTSIDE RECORDS SUMMARY | 2025-01-26 00:06 | XMS_ITS | Clinical Summary ---
Author Organization [place] [id number] [facility] Address [address] [place] [address] Care Team Providers Care Pl Sql Programmer Name Role Phone Ramy Aguilera MD Unavailable [phone] Satya Fernandez MD Primary Care Provider [phone] Allergies Active Allergy Reactions Criticality Noted Date [...] - Plan to discharge patient with outpatient [facility] follow-up on 09/30/24. Assessment & Plan (09/23/2024 [...] Department Care Team Description 01/18/2025 Social Work [facility] Oncology [address] [place] [phone] Desirae Bates LCSW 01/13/2025 12:00 PM CDT Clinical Support [facility] Medical Office Building 2 Radiation Oncology [address] [place] [phone] Follicular lymphoma, unspecified follicular lymphoma type, unspecified body region (HCC) (Primary Dx) 01/13/2025 10:30 AM CDT Infusion [address] [phone] Prevention of chemotherapy-induced neutropenia (Primary Dx); Follicular lymphoma, unspecified follicular lymphoma type, unspecified body region (HCC) 01/13/2025 10:00 AM CDT Office Visit [facility] Bone Marrow Transplant [address] [place] [phone] Ramy Aguilera MD Follicular lymphoma, unspecified follicular lymphoma type, unspecified body region (HCC) (Primary Dx); Prevention of chemotherapy-induced neutropenia 01/13/2025 9:30 AM CDT Lab [address] [address] Follicular lymphoma, unspecified follicular lymphoma type, unspecified body region (HCC); Prevention of chemotherapy-induced neutropenia 01/12/2025 Orders Only [facility] [address] [place] [phone] Ramy Aguilera MD 12/30/2024 Orders Only [facility] at [address] [phone] Paulina German RPh 12/23/2024 10:30 AM CDT Infusion [address] [phone] Prevention of chemotherapy-induced neutropenia (Primary Dx); Follicular lymphoma, unspecified follicular lymphoma type, unspecified body region (HCC) 12/23/2024 10:00 AM CDT Office Visit [facility]row Transplant [address] [place] [phone] Ramy Aguilera MD Follicular lymphoma, unspecified follicular lymphoma type, unspecified body region (HCC) (Primary Dx); Prevention of chemotherapy-induced neutropenia 12/23/2024 9:30 AM CDT Lab [facility] [address] [address] Follicular lymphoma, unspecified follicular lymphoma type, unspecified body region (HCC); Prevention of chemotherapy-induced neutropenia 12/22/2024 Orders Only [facility] Oncology [address] [place] [phone] Ramy Aguilera MD 12/16/2024 Orders Only [address] [phone] Paulina German helena 12/15/2024 8:06 AM CDT - 12/15/2024 11:59 PM CDT Hospital Encounter [facility] Medical Office Building [address] [address] Follicular lymphoma, unspecified follicular lymphoma type, unspecified body region (HCC) Discharge Disposition: Discharge to home or self care 12/09/2024 10:00 AM CDT Office Visit [facility] Transplant [address] [place] [phone] Paige Giordano NP Follicular lymphoma, unspecified follicular lymphoma type, unspecified body region (HCC) (Primary Dx) 12/09/2024 9:30 AM CDT Lab [address] [address] Follicular lymphoma, unspecified follicular lymphoma type, unspecified body region (HCC) 11/18/2024 8:45 AM CDT Infusion [facility] [place] at [address] [place] [address] Follicular lymphoma, unspecified follicular lymphoma type, unspecified body region (HCC) (Primary Dx) 11/18/2024 8:15 AM CDT Office Visit [facility] Bone Marrow Transplant [address] [place] [address] [address] [place] [phone] Ramy Aguilera MD Follicular lymphoma, unspecified follicular lymphoma type, unspecified body region (HCC) (Primary Dx); Diarrhea, unspecified type 11/18/2024 7:45 AM CDT Lab [facility] at [address] [address] Follicular lymphoma, unspecified follicular lymphoma type, unspecified body region (HCC); Diarrhea, unspecified type 11/18/2024 Orders Only [facility] Oncology [address] [place] [phone] Ramy Aguilera MD 10/28/2024 8:45 AM CDT Infusion [facility] [place] at [address] [phone] Follicular lymphoma, unspecified follicular lymphoma type, unspecified body region (HCC) (Primary Dx) 10/28/2024 8:15 AM CDT Lab [address] [address] Follicular lymphoma, unspecified follicular lymphoma type, unspecified body region (HCC) from Last 3 Months Immunizations Immunization Administration [...] Blood smear review (01/13/2025 10:00 AM CDT) Pathologist [facility] RBC morphology Consistent with RBC Indicies Comment:Testing performed by : [address] [address] Anisocytosis Slight(A) JOSELYN VAZQUEZ Comment:Testing performed by : [address] [address] Platelet estimate Adequate JOSELYN Comment:Testing performed by : [address] [address] Blood 01/13/2025 10:0 0 AM CDT 01/13/2025 10:02 AM CDT us Ramy Aguilera MD LAB BLOOD ORDERABLES Final R esult JOSELYN [address] [facility] Department [place] [address] * eGFR (01/13/2025 10:00 AM CDT) Pathologist [facility] eGFR >90 >=60 mL/min/1. 73 m2 Comment: [...] was last reviewed 2021. Testing performed by: [address] [address] Blood 01/13/2025 10:0 0 AM CDT 01/13/2025 10:02 AM CDT us Ramy Aguilera MD LAB BLOOD ORDERABLES Final R esult [facility] [address] [facility] Department [place] [address] * (ABNORMAL) Differential, auto (01/13/2025 10:00 AM CDT) Neutrophil abs 1.44(L) 1.50 - 6.50 K/cumm Comment:Testing performed by : [address] [address] Imm gran abs 0.03 0.00 - 0.10 K/cumm JOSELYN Comment:Testing performed by : [address] [address] Lymphocyte abs 17.55(H) 0.80 - 3.30 K/cumm JOSELYN Comment:Testing performed by : [address] [address] Monocyte abs 0.33 0.20 - 0.80 K/cumm JOSELYN VAZQUEZ Comment:Testing performed by : [address] [address] Eosinophil abs 0.04 0.00 - 0.50 K/cumm JOSELYN Comment:Testing performed by : [address] [address] Basophil abs 0.10 0.00 - 0.10 K/cumm JOSELYN Comment:Testing performed by : [address] [address] Neutrophil pct 7.4 % [facility] Comment: Interpretive Data Percent cell count reference ranges are not reported, since discordance with absolute values may lead to misinterpretation of CBC data. Current Interpretive Data was last revised on 2017. Testing performed by: [address] [address] Imm gran pct 0.2 % [facility] Comment: Interpretive Data Percent cell count reference ranges are not reported, since discordance with absolute values may lead to misinterpretation of CBC data. Current Interpretive Data was last revised on 2017. Testing performed by: [address] [address] Lymphocyte pct 90.0 % [facility] Comment: Interpretive Data Percent cell count reference ranges are not reported, since discordance with absolute values may lead to misinterpretation of CBC data. Current Interpretive Data was last revised on 2017. Testing performed by: [address] [address] Monocyte pct 1.7 % [facility] Comment: Interpretive Data Percent cell count reference ranges are not reported, since discordance with absolute values may lead to misinterpretation of CBC data. Current Interpretive Data was last revised on 2017. Testing performed by: [address] [address] Eosinophil pct 0.2 % [facility] Comment: Interpretive Data Percent cell count reference ranges are not reported, since discordance with absolute values may lead to misinterpretation of CBC data. Current Interpretive Data was last revised on 2017. Testing performed by: [address] [address] Basophil pct 0.5 % [facility] Comment: Interpretive Data Percent cell count reference ranges are not reported, since discordance with absolute values may lead to misinterpretation of CBC data. Current Interpretive Data was last revised on 2017. Testing performed by: [address] [address] Blood 01/13/2025 10:0 0 AM CDT 01/13/2025 10:02 AM CDT us Ramy Aguilera MD LAB BLOOD ORDERABLES Final R esult [facility] [address] [facility] Department [place] [address] * (ABNORMAL) CBC with auto differential (01/13/2025 10:00 AM CDT) WBC 19.49(H) 3.80 - 9.90 K/cumm Comment:Testing performed by : [address] [address] Hgb 8.1(L) 11.9 - 15.5 g/dL JOSELYN Comment:Testing performed by : [address] [address] Hct 25.4(L) 35.6 - 45.5 % JOSELYN Comment:Testing performed by : [address] [address] Plt 108(L) 150 - 400 K/cumm JOSELYN Comment:Testing performed by : [address] [address] MPV 8.8(L) 9.1 - 12.3 fL JOSELYN Comment:Testing performed by : [address] [address] RBC 2.77(L) 3.90 - 5.20 M/cumm JOSELYN Comment:Testing performed by : [address] [address] MCV 91.7 81.3 - 96.4 fL JOSELYN Comment:Testing performed by : [address] [address] MCH 29.2 27.1 - 33.3 pg JOSELYN Comment:Testing performed by : [address] [address] MCHC 31.9(L) 32.3 - 35.7 g/dL JOSELYN Comment:Testing performed by : [address] [address] RDW CV 17.9(H) 11.1 - 14.9 % JOSELYN Comment:Testing performed by : [address] [address] RDW SD 59.7(H) 35.7 - 48.1 fL JOSELYN Comment:Testing performed by : [address] [address] NRBC abs 0.02(H) 0.00 - 0.01 K/cumm JOSELYN Comment:Testing performed by : [address] [address] ANC Prelim 1.44(L) 1.50 - 6.50 K/cumm JOSELYN Comment: Interpretive Data The rapid ANC is a preliminary automated count and may vary from the final ANC (Neut Abs) reported in the WBC differential that follows. Current interpretive data was last revised 2024. Testing performed by: [address] [address] Blood 01/13/2025 10:0 0 AM CDT 01/13/2025 10:02 AM CDT Ramy Aguilera MD LAB BLOOD ORDERABLES Edited Result - Final [facility] [address] [facility] Department of Laboratories [place], [place] [id number] * hCG, blood, quantitative (01/13/2025 10:00 AM [...] last revised on 2023 Testing performed by: [address] [address] Blood 01/13/2025 10:0 0 AM CDT 01/13/2025 10:18 AM CDT us Ramy Aguilera MD LAB BLOOD ORDERABLES Final R esult [facility] [address] [facility] Department [place] [address] * (ABNORMAL) Comprehensive metabolic panel (01/13/2025 10:00 AM CDT) Sodium 138 135 - 145 mmol/L Comment:Testing performed by : [address] [address] Potassium, pl 3.2(L) 3.3 - 4.9 mmol/L JOSELYN Comment:Testing performed by : [address] [address] Chloride 98 97 - 110 mmol/L JOSELYN Comment:Testing performed by : [address] [address] CO2 26 22 - 32 mmol/L JOSELYN Comment:Testing performed by : [address] [address] Anion gap 14 2 - 15 mmol/L JOSELYN Comment:Testing performed by : [address] [address] BUN 6 6 - 25 mg/dL JOSELYN Comment:Testing performed by : [address] [address] Creatinine 0.70 0.60 - 1.10 mg/dL JOSELYN Comment:Testing performed by : [address] [address] Glucose 131 70 - 199 mg/dL JOSELYN [...] was last revised 2022. Testing performed by: [address] [address] Calcium 9.0 8.5 - 10.3 mg/dL JOSELYN Comment:Testing performed by : [address] [address] Bilirubin, total 0.5 0.1 - 1.2 mg/dL JOSELYN Comment:Testing performed by : [address] [address] Protein, pl 5.8(L) 6.5 - 8.5 g/dL JOSELYN Comment:Testing performed by : [address] [address] Albumin 3.8 3.5 - 5.0 g/dL JOSELYN Comment:Testing performed by : [address] [address] Alk phos 238(H) 40 - 130 Units/L JOSELYN Comment:Testing performed by : [address] [address] ALT 17 7 - 45 Units/L JOSELYN Comment:Testing performed by : [address] [address] AST 30 10 - 45 Units/L JOSELYN Comment:Testing performed by : [address] [address] Blood 01/13/2025 10:0 0 AM CDT 01/13/2025 10:02 AM CDT us Ramy Aguilera MD LAB BLOOD ORDERABLES Final R esult JOSELYN [address] [facility] Department of Laboratories [place], [place] [phone] * (ABNORMAL) Blood smear review (12/23/2024 9:47 AM CDT) RBC morphology Consistent with RBC Indicies Comment:Testing performed by : [address] [address] Anisocytosis Slight(A) JOSELYN VAZQUEZ Comment:Testing performed by : [address] [address] Platelet estimate Adequate JOSELYN VAZQUEZ Comment:Testing performed by : [address] [address] Blood 12/23/2024 9:47 AM CDT 12/23/2024 9:48 AM CDT us Ramy Aguilera MD LAB BLOOD ORDERABLES Final R esult JOSELYN VAZQUEZ [address] [facility] Department [place] [address] * eGFR (12/23/2024 9:47 AM CDT) eGFR [...] was last reviewed 2021. Testing performed by: [address] [address] Blood 12/23/2024 9:47 AM CDT 12/23/2024 9:48 AM CDT us Ramy Aguilera MD LAB BLOOD ORDERABLES Final R esult JO[facility]N [address] [facility] Department [place] [address] * (ABNORMAL) Differential, auto (12/23/2024 9:47 AM CDT) Neutrophil abs 2.06 1.50 - 6.50 K/cumm Comment:Testing performed by : [address] [address] Imm gran abs 0.08 0.00 - 0.10 K/cumm JOSELYN Comment:Testing performed by : [address] [address] Lymphocyte abs 21.14(H) 0.80 - 3.30 K/cumm JOSELYN Comment:Testing performed by : [address] [address] Monocyte abs 0.37 0.20 - 0.80 K/cumm JOSELYN Comment:Testing performed by : [address] [address] Eosinophil abs 0.10 0.00 - 0.50 K/cumm [facility] Comment:Testing performed by : [address] [address] Basophil abs 0.09 0.00 - 0.10 K/cumm [facility] Comment:Testing performed by : [address] [address] Neutrophil pct 8.6 % [facility] Comment: Interpretive Data Percent cell count reference ranges are not reported, since discordance with absolute values may lead to misinterpretation of CBC data. Current Interpretive Data was last revised on 2017. Testing performed by: [address] [address] Imm gran pct 0.3 % JOSELYN Comment: Interpretive Data Percent cell count reference ranges are not reported, since discordance with absolute values may lead to misinterpretation of CBC data. Current Interpretive Data was last revised on 2017. Testing performed by: [address] [address] Lymphocyte pct 88.7 % JOSELYN Comment: Interpretive Data Percent cell count reference ranges are not reported, since discordance with absolute values may lead to misinterpretation of CBC data. Current Interpretive Data was last revised on 2017. Testing performed by: [address] [address] Monocyte pct 1.6 % JOSELYN Comment: Interpretive Data Percent cell count reference ranges are not reported, since discordance with absolute values may lead to misinterpretation of CBC data. Current Interpretive Data was last revised on 2017. Testing performed by: [address] [address] Eosinophil pct 0.4 % JOSELYN Comment: Interpretive Data Percent cell count reference ranges are not reported, since discordance with absolute values may lead to misinterpretation of CBC data. Current Interpretive Data was last revised on 2017. Testing performed by: [address] [address] Basophil pct 0.4 % JOSELYN Comment: Interpretive Data Percent cell count reference ranges are not reported, since discordance with absolute values may lead to misinterpretation of CBC data. Current Interpretive Data was last revised on 2017. Testing performed by: [address] [address] Blood 12/23/2024 9:47 AM CDT 12/23/2024 9:48 AM CDT us Ramy Aguilera MD LAB BLOOD ORDERABLES Final R esult [facility] [address] [facility] Department [place] [address] * (ABNORMAL) CBC with auto differential (12/23/2024 9:47 AM CDT) WBC 23.84(H) 3.80 - 9.90 K/cumm Comment:Testing performed by : [address] [address] Hgb 9.0(L) 11.9 - 15.5 g/dL JOSELYN Comment:Testing performed by : [address] [address] Hct 27.5(L) 35.6 - 45.5 % JOSELYN Comment:Testing performed by : [address] [address] Plt 111(L) 150 - 400 K/cumm JOSELYN Comment:Testing performed by : [address] [address] MPV 9.1 9.1 - 12.3 fL JOSELYN Comment:Testing performed by : [address], [address] RBC 3.02(L) 3.90 - 5.20 M/cumm JOSELYN Comment:Testing performed by : [address], [address] MCV 91.1 81.3 - 96.4 fL JOSELYN Comment:Testing performed by : [address], [address] MCH 29.8 27.1 - 33.3 pg JOSELYN Comment:Testing performed by : [address] [address] MCHC 32.7 32.3 - 35.7 g/dL JOSELYN Comment:Testing performed by : [address], [address] RDW CV 17.8(H) 11.1 - 14.9 % JOSELYN Comment:Testing performed by : [address], [address] RDW SD 57.9(H) 35.7 - 48.1 fL JOSELYN Comment:Testing performed by : [address], [address] NRBC abs 0.07(H) 0.00 - 0.01 K/cumm JOSELYN Comment:Testing performed by : [address] [address] ANC Prelim 2.06 1.50 - 6.50 K/cumm JOSELYN Comment: Interpretive Data The rapid ANC is a preliminary automated count and may vary from the final ANC (Neut Abs) reported in the WBC differential that follows. Current interpretive data was last revised 2024. Testing performed by: [address] [address] Blood 12/23/2024 9:47 AM CDT 12/23/2024 9:48 AM CDT Ramy Aguilera MD LAB BLOOD ORDERABLES Edited Result - Final Performing Organization Address City/[facility] Co de Phone Number JOSELYN [facility] Department [place] [address] * hCG, blood, quantitative (12/23/2024 9:47 AM CDT) hCG, quant <5.0 0.0 - 5.0 IUnits/L Comment: Interpretive Data Male: < 5 IU/L Non- premenopausal Female: <5 IU/L The Cosmo hCG Beta Quant assay procedure was used. Results from different manufacturers or methods may not be comparable. Serial testing should be performed using the same method. Interpretive Data was last revised on 2023 Testing performed by: [address] [address] Blood 12/23/2024 9:47 AM CDT 12/23/2024 10:07 AM CDT us Ramy Aguilera MD LAB BLOOD ORDERABLES Final R esult Performing Organization Address City/[facility] Co de Phone Number JOSELYN [facility] [place] [address] * Uric acid (12/23/2024 9:47 AM CDT) Uric acid 6.3 2.5 - 7.0 mg/dL Comment:Testing performed by : [address] [address] Blood 12/23/2024 9:47 AM CDT 12/23/2024 1:11 PM CDT us Ramy Aguilera MD LAB BLOOD ORDERABLES Final R esult JOSELYN [address] [facility] Department [place] [address] * (ABNORMAL) Comprehensive metabolic panel (12/23/2024 9:47 AM CDT) Sodium 139 135 - 145 mmol/L Comment:Testing performed by : [address] [address] Potassium, pl 3.2(L) 3.3 - 4.9 mmol/L JOSELYN Comment:Testing performed by : [address] [address] Chloride 97 97 - 110 mmol/L JOSELYN Comment:Testing performed by : [address] [address] CO2 27 22 - 32 mmol/L JOSELYN Comment:Testing performed by : [address] [address] Anion gap 15 2 - 15 mmol/L JOSELYN Comment:Testing performed by : [address] [address] BUN 5(L) 6 - 25 mg/dL JOSELYN Comment:Testing performed by : [address] [address] Creatinine 0.70 0.60 - 1.10 mg/dL JOSELYN Comment:Testing performed by : [address] [address] Glucose 90 70 - 199 mg/dL JOSELYN [...] was last revised 2022. Testing performed by: [address] [place]., [address] Calcium 9.4 8.5 - 10.3 mg/dL JOSELYN Comment:Testing performed by : [facility], [address] [place] [address]., [address] Bilirubin, total 0.6 0.1 - 1.2 mg/dL JOSELYN Comment:Testing performed by : [address] [address] Protein, pl 5.7(L) 6.5 - 8.5 g/dL JOSELYN Comment:Testing performed by : [address] [address] Albumin 3.6 3.5 - 5.0 g/dL JOSELYN Comment:Testing performed by : [address] [address] Alk phos 242(H) 40 - 130 Units/L JOSELYN Comment:Testing performed by : [address] [address] ALT 7 7 - 45 Units/L JOSELYN Comment:Testing performed by : [address] [address] AST 30 10 - 45 Units/L JOSELYN Comment:Testing performed by : [address] [address] Blood 12/23/2024 9:47 AM CDT 12/23/2024 9:48 AM CDT Ramy Aguilera MD LAB BLOOD ORDERABLES Final R esult JOSELYN [address] [facility] Department [place] [address] * PET/CT FDG Skull to Thigh (12/15/2024 [...] has increased in size and activity. 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 Bilateral inguinal hypermetabolic lymphadenopathy. The used equipment sales representative left inguinal lymph node [...] Fabiano Santana M.D. LB: CHAITANYA Report ID: [id number] Reading Location: [id number] Procedure Note Fabiano Santana MD - 12/15/2024 [...] 6.2 previously. Bilateral inguinal hypermetabolic lymphadenopathy. The used equipment sales representative left inguinal lymph node [...] Fabiano Santana M.D. LB: CHAITANYA Report ID: [id number] Reading Location: [place] [address] us Paige Giordano [employer]OC[employer]ATE IMG PET PROCEDURES Final Resu lt * POCT glucose (12/15/2024 8:33 AM CDT) [facility] Signature Glucose, POC 94 70 - 199 mg/dL Comment:Testing performed by : [facility], [address] [place] [address], [place]., [address] Blood 12/15/2024 8:33 AM CDT 12/15/2024 8:33 AM CDT us Ramy Aguilera MD LAB POCT ORDERABLES - DEVICE Final Result JOSELYN [address] [facility] [place] [address] * (ABNORMAL) Blood smear review (12/09/2024 9:12 AM CDT) RBC morphology Consistent with RBC Indicies Comment:Testing performed by : [address] [address] Platelet estimate Decreased(A) JOSELYN Comment:Testing performed by : [address] [address] Blood 12/09/2024 9:12 AM CDT 12/09/2024 9:14 AM CDT Ramy Aguilera MD LAB BLOOD ORDERABLES Final R esult Performing Organization Address [facility] de Phone Number [place] [address] [place] [address] * eGFR (12/09/2024 9:12 AM CDT) eGFR >90 >=60 mL/min/1. 73 [...] was last reviewed 2021. Testing performed by: [address] [address] Blood 12/09/2024 9:12 AM CDT 12/09/2024 9:14 AM CDT us Ramy Aguilera MD LAB BLOOD ORDERABLES Final R esult JOSELYN [address] [facility] Department [place] [address] * (ABNORMAL) Differential, auto (12/09/2024 9:12 AM CDT) Neutrophil abs 2.40 1.50 - 6.50 K/cumm Comment:Testing performed by : [address] [address] Imm gran abs 0.05 0.00 - 0.10 K/cumm JOSELYN Comment:Testing performed by : [address] [address] Lymphocyte abs 13.72(H) 0.80 - 3.30 K/cumm JOSELYN Comment:Testing performed by : [address] [address] Monocyte abs 0.28 0.20 - 0.80 K/cumm JOSELYN Comment:Testing performed by : [address] [address] Eosinophil abs 0.04 0.00 - 0.50 K/cumm JOSELYN Comment:Testing performed by : [address] [address] Basophil abs 0.06 0.00 - 0.10 K/cumm JOSELYN Comment:Testing performed by : [address] [address] Neutrophil pct 14.5 % JOSELYN Comment: Interpretive Data Percent cell count reference ranges are not reported, since discordance with absolute values may lead to misinterpretation of CBC data. Current Interpretive Data was last revised on 2017. Testing performed by: [address] [address] Imm gran pct 0.3 % JOSELYN Comment: Interpretive Data Percent cell count reference ranges are not reported, since discordance with absolute values may lead to misinterpretation of CBC data. Current Interpretive Data was last revised on 2017. Testing performed by: [address] [address] Lymphocyte pct 82.9 % [facility] Comment: Interpretive Data Percent cell count reference ranges are not reported, since discordance with absolute values may lead to misinterpretation of CBC data. Current Interpretive Data was last revised on 2017. Testing performed by: [address] [address] Monocyte pct 1.7 % [facility] Comment: Interpretive Data Percent cell count reference ranges are not reported, since discordance with absolute values may lead to misinterpretation of CBC data. Current Interpretive Data was last revised on 2017. Testing performed by: [address] [address] Eosinophil pct 0.2 % [facility] Comment: Interpretive Data Percent cell count reference ranges are not reported, since discordance with absolute values may lead to misinterpretation of CBC data. Current Interpretive Data was last revised on 2017. Testing performed by: [address] [address] Basophil pct 0.4 % [facility] Comment: Interpretive Data Percent cell count reference ranges are not reported, since discordance with absolute values may lead to misinterpretation of CBC data. Current Interpretive Data was last revised on 2017. Testing performed by: [address] [address] Blood 12/09/2024 9:12 AM CDT 12/09/2024 9:14 AM CDT us Ramy Aguilera MD LAB BLOOD ORDERABLES Final R esult JOSELYN [address] [facility] [place] [address] * (ABNORMAL) CBC with auto differential (12/09/2024 9:12 AM CDT) WBC 16.55(H) 3.80 - 9.90 K/cumm Comment:Testing performed by : [address] [address] Hgb 8.8(L) 11.9 - 15.5 g/dL JOSELYN Comment:Testing performed by : [address] [address] Hct 26.9(L) 35.6 - 45.5 % JOSELYN Comment:Testing performed by : [address] [address] Plt 92(L) 150 - 400 K/cumm JOSELYN Comment:Testing performed by : [address], [address] MPV 9.4 9.1 - 12.3 fL JOSELYN Comment:Testing performed by : [address], [address] RBC 2.99(L) 3.90 - 5.20 M/cumm JOSELYN Comment:Testing performed by : [address], [address] MCV 90.0 81.3 - 96.4 fL JOSELYN Comment:Testing performed by : [address], [address] MCH 29.4 27.1 - 33.3 pg JOSELYN Comment:Testing performed by : [address], [address] MCHC 32.7 32.3 - 35.7 g/dL JOSELYN Comment:Testing performed by : [address], [address] RDW CV 15.3(H) 11.1 - 14.9 % JOSELYN Comment:Testing performed by : [address], [address] RDW SD 48.4(H) 35.7 - 48.1 fL JOSELYN Comment:Testing performed by : [address], [address] NRBC abs 0.00 0.00 - 0.01 K/cumm JOSELYN Comment:Testing performed by : [address], [address] ANC Prelim 2.40 1.50 - 6.50 K/cumm JOSELYN Comment: Interpretive Data The rapid ANC is a preliminary automated count and may vary from the final ANC (Neut Abs) reported in the WBC differential that follows. Current interpretive data was last revised 2024. Testing performed by: [address] [address] Blood 12/09/2024 9:12 AM CDT 12/09/2024 9:14 AM CDT Ramy Aguilera MD LAB BLOOD ORDERABLES Edited Result - Final Performing Organization Address [facility] Co de Phone Number [facility] [address] [facility] [place] [address] * hCG, blood, quantitative (12/09/2024 [...] last revised on 2023 Testing performed by: [address] [address] Blood 12/09/2024 9:12 AM CDT 12/09/2024 9:44 AM CDT Ramy Aguilera MD LAB BLOOD ORDERABLES Final R esult Performing Organization Address [facility] Co de Phone Number [facility] [address] [facility] [place] [address] * (ABNORMAL) Comprehensive metabolic panel (12/09/2024 9:12 AM CDT) Sodium 140 135 - 145 mmol/L Comment:Testing performed by : [address] [address] Potassium, pl 4.0 3.3 - 4.9 mmol/L JOSELYN Comment:Testing performed by : [address] [address] Chloride 102 97 - 110 mmol/L JOSELYN Comment:Testing performed by : [address] [address] CO2 27 22 - 32 mmol/L JOSELYN Comment:Testing performed by : [address] [address] Anion gap 11 2 - 15 mmol/L JOSELYN Comment:Testing performed by : [address] [address] BUN 5(L) 6 - 25 mg/dL JOSELYN Comment:Testing performed by : [address] [address] Creatinine 0.70 0.60 - 1.10 mg/dL JOSELYN Comment:Testing performed by : [address] [address] Glucose 96 70 - 199 mg/dL [facility] was last revised 2022. Testing performed by: [address] [address] Calcium 9.2 8.5 - 10.3 mg/dL [facility] Comment:Testing performed by : [address] [address] Bilirubin, total 0.3 0.1 - 1.2 mg/dL [facility] Comment:Testing performed by : [address] [address] Protein, pl 5.6(L) 6.5 - 8.5 g/dL JOSELYN Comment:Testing performed by : [address] [address] Albumin 3.7 3.5 - 5.0 g/dL JOSELYN VAZQUEZ Comment:Testing performed by : [address] [address] Alk phos 192(H) 40 - 130 Units/L JOSELYN VAZQUEZ Comment:Testing performed by : [address] [address] ALT 13 7 - 45 Units/L JOSELYN Comment:Testing performed by : [address] [address] AST 20 10 - 45 Units/L JOSELYN Comment:Testing performed by : [address] [address] Blood 12/09/2024 9:12 AM CDT 12/09/2024 9:14 AM CDT us Ramy Aguilera MD LAB BLOOD ORDERABLES Final R esult JOSELYN [address] [facility] Department of Laboratories [place], [place] [id number] * (ABNORMAL) C. difficile testing Stool (11/18/2024 9:30 AM CDT) [facility] C. diff result Positive, DNA(A) Negative , DNA Comment:Testing performed by : [address] [address] C. diff interp Toxigenic Clostridioides (Clostridium) difficile detected. Analysis performed by detection of gene(s) encoding C. difficile toxin(s). The nucleic acid detection assay used is cleared by the [place] Food and Drug administration and its performance characteristics have been verified by the performing laboratory. JOSELYN VAZQUEZ Comment: NAP (O27) - presumptive negative Testing performed by: [address] [address] Stool 11/18/2024 9:30 AM CDT 11/18/2024 11:35 AM CDT us Ramy Aguilera MD LAB MICROBIOLOGY - GENERAL O RDERABLES Final Result Performing Organization Address City/[facility]/ZIP Co de Phone Number JOSELYN [address] [place] [address] * Cryptosporidium and Giardia antigen assay Stool (11/18/2024 9:30 AM CDT) Giardia Ag Negative Negative Comment:Testing performed by : [facility], [address] [place]., [address] Cryptosporidium Ag Negative Negative JOSELYN Comment: Interpretive data: Testing performed by the [facility] using an immunoassay that detects Cryptosporidium and Giardia antigens in stool specimens. If comprehensive examination for ova and parasites is required, please request Ova and Parasite Examination. Testing performed by: [facility], [address] [place]., [address] Stool 11/18/2024 9:30 AM CDT 11/18/2024 4:49 PM CDT Ramy Aguilera MD LAB MICROBIOLOGY - GENERAL O RDERABLES Final Result Performing Organization Address City/[facility] Co de Phone Number DARRIN[address] [place] [address] * eGFR (11/18/2024 8:40 AM CDT) eGFR [...] was last reviewed 2021. Testing performed by: [address] [address] Blood 11/18/2024 8:40 AM CDT 11/18/2024 8:42 AM CDT us Ramy Aguilera MD LAB BLOOD ORDERABLES Final R esult [place] [id number] [facility] Department [place] [address] * (ABNORMAL) Differential, auto (11/18/2024 8:40 AM CDT) Neutrophil abs 3.60 1.50 - 6.50 K/cumm Comment:Testing performed by : [address] [address] Imm gran abs 0.05 0.00 - 0.10 K/cumm JOSELYN Comment:Testing performed by : [address] [address] Lymphocyte abs 13.41(H) 0.80 - 3.30 K/cumm JOSELYN Comment:Testing performed by : [address] [address] Monocyte abs 0.34 0.20 - 0.80 K/cumm JOSELYN Comment:Testing performed by : [address] [address] Eosinophil abs 0.03 0.00 - 0.50 K/cumm JOSELYN Comment:Testing performed by : [address] [address] Basophil abs 0.06 0.00 - 0.10 K/cumm JOSELYN Comment:Testing performed by : [address] [address] Neutrophil pct 20.6 % JOSELYN Comment: Interpretive Data Percent cell count reference ranges are not reported, since discordance with absolute values may lead to misinterpretation of CBC data. Current Interpretive Data was last revised on 2017. Testing performed by: [address] [address] Imm gran pct 0.3 % [facility] Comment: Interpretive Data Percent cell count reference ranges are not reported, since discordance with absolute values may lead to misinterpretation of CBC data. Current Interpretive Data was last revised on 2017. Testing performed by: [address] [address] Lymphocyte pct 76.7 % [facility] Comment: Interpretive Data Percent cell count reference ranges are not reported, since discordance with absolute values may lead to misinterpretation of CBC data. Current Interpretive Data was last revised on 2017. Testing performed by: [address] [address] Monocyte pct 1.9 % [facility] Comment: Interpretive Data Percent cell count reference ranges are not reported, since discordance with absolute values may lead to misinterpretation of CBC data. Current Interpretive Data was last revised on 2017. Testing performed by: [address] [address] Eosinophil pct 0.2 % [facility] Comment: Interpretive Data Percent cell count reference ranges are not reported, since discordance with absolute values may lead to misinterpretation of CBC data. Current Interpretive Data was last revised on 2017. Testing performed by: [address] [address] Basophil pct 0.3 % [facility] Comment: Interpretive Data Percent cell count reference ranges are not reported, since discordance with absolute values may lead to misinterpretation of CBC data. Current Interpretive Data was last revised on 2017. Testing performed by: [address] [address] Blood 11/18/2024 8:40 AM CDT 11/18/2024 8:42 AM CDT us Ramy Aguilera MD LAB BLOOD ORDERABLES Final R esult JOSELYN [address] Department [place] [address] * (ABNORMAL) CBC with auto differential (11/18/2024 8:40 AM CDT) [facility] WBC 17.49(H) 3.80 - 9.90 K/cumm Comment:Testing performed by : [address] [address] Hgb 9.8(L) 11.9 - 15.5 g/dL JOSELYN Comment:Testing performed by : [address] [address] Hct 29.7(L) 35.6 - 45.5 % JOSEYLN Comment:Testing performed by : [address] [address] Plt 133(L) 150 - 400 K/cumm JOSELYN Comment:Testing performed by : [address] [address] MPV 10.0 9.1 - 12.3 fL JOSELYN Comment:Testing performed by : [address], [address] RBC 3.33(L) 3.90 - 5.20 M/cumm JOSELYN Comment:Testing performed by : [address] [address] MCV 89.2 81.3 - 96.4 fL JOSELYN Comment:Testing performed by : [address] [address] MCH 29.4 27.1 - 33.3 pg JOSELYN Comment:Testing performed by : [address] [address] MCHC 33.0 32.3 - 35.7 g/dL JOSELYN Comment:Testing performed by : [address], [address] RDW CV 13.8 11.1 - 14.9 % JOSELYN Comment:Testing performed by : [address], [address] RDW SD 44.3 35.7 - 48.1 fL JOSELYN Comment:Testing performed by : [address] [address] NRBC abs 0.00 0.00 - 0.01 K/cumm JOSELYN Comment:Testing performed by : [address] [address] ANC Prelim 3.60 1.50 - 6.50 K/cumm JOSELYN Comment: Interpretive Data The rapid ANC is a preliminary automated count and may vary from the final ANC (Neut Abs) reported in the WBC differential that follows. Current interpretive data was last revised 2024. Testing performed by: [address] [address] Morphologic Screen Results confirmed by manual morphology review. JOSELYN VAZQUEZ Comment:Testing performed by : [address] [address] Blood 11/18/2024 8:40 AM CDT 11/18/2024 8:42 AM CDT us Ramy Aguilera MD LAB BLOOD ORDERABLES Edited Result - Final Performing Organization Address [facility] Co de Phone Number [facility] [address] [facility] [place] [address] * hCG, blood, quantitative (11/18/2024 8:40 AM CDT) [facility] hCG, quant <5.0 0.0 - 5.0 IUnits/L Comment: Interpretive Data Male: < 5 IU/L Non- premenopausal Female: <5 IU/L The [employer]mo hCG Beta Quant assay procedure was used. Results from different manufacturers or methods may not be comparable. Serial testing should be performed using the same method. Interpretive Data was last revised on 2023 Testing performed by: [address] [address] Blood 11/18/2024 8:40 AM CDT 11/18/2024 8:58 AM CDT Ramy Aguilera MD LAB BLOOD ORDERABLES Final R esult Performing Organization Address [facility] Co de Phone Number JOSELYN [address] [facility] Department [place] [address] * (ABNORMAL) Comprehensive metabolic panel (11/18/2024 8:40 AM CDT) Sodium 139 135 - 145 mmol/L Comment:Testing performed by : [address] [address] Potassium, pl 3.2(L) 3.3 - 4.9 mmol/L JOSELYN Comment:Testing performed by : [address], [place]., [address] Chloride 100 97 - 110 mmol/L JOSELYN Comment:Testing performed by : [address] [address] CO2 27 22 - 32 mmol/L JOSELYN Comment:Testing performed by : [address], [place]., [address] Anion gap 12 2 - 15 mmol/L JOSELYN Comment:Testing performed by : [address] [address] BUN 6 6 - 25 mg/dL JOSELYN Comment:Testing performed by : [address] [address] Creatinine 0.80 0.60 - 1.10 mg/dL JOSELYN Comment:Testing performed by : [address] [address] Glucose 106 70 - 199 mg/dL JOSELYN [...] was last revised 2022. Testing performed by: [address] [address] Calcium 9.0 8.5 - 10.3 mg/dL JOSELYN Comment:Testing performed by : [address] [address] Bilirubin, total 0.4 0.1 - 1.2 mg/dL JOSELYN Comment:Testing performed by : [address] [address] Protein, pl 6.0(L) 6.5 - 8.5 g/dL JOSELYN Comment:Testing performed by : [address] [address] Albumin 3.8 3.5 - 5.0 g/dL JOSELYN Comment:Testing performed by : [address] [address] Alk phos 169(H) 40 - 130 Units/L JOSELYN Comment:Testing performed by : [address] [address] ALT 16 7 - 45 Units/L JOSELYN Comment:Testing performed by : [address] [address] AST 25 10 - 45 Units/L JOSELYN Comment:Testing performed by : [address] [address] Blood 11/18/2024 8:40 AM CDT 11/18/2024 8:42 AM CDT us Ramy Aguilera MD LAB BLOOD ORDERABLES Final R esult DARR[place] [address] [facility] Department of Laboratories [place], [place] [id number] * eGFR (10/28/2024 8:25 AM CDT) eGFR [...] was last reviewed 2021. Testing performed by: [address] [address] Blood 10/28/2024 8:25 AM CDT 10/28/2024 8:26 AM CDT us Ramy Aguilera MD LAB BLOOD ORDERABLES Final R esult [place] [address] [facility] Department [place] [address] * (ABNORMAL) Differential, auto (10/28/2024 8:25 AM CDT) Neutrophil abs 1.99 1.50 - 6.50 K/cumm Comment:Testing performed by : [address] [address] Imm gran abs 0.02 0.00 - 0.10 K/cumm JOSELYN Comment:Testing performed by : [address] [address] Lymphocyte abs 6.10(H) 0.80 - 3.30 K/cumm JOSELYN Comment:Testing performed by : [address] [address] Monocyte abs 0.26 0.20 - 0.80 K/cumm JOSELYN Comment:Testing performed by : [address] [address] Eosinophil abs 0.06 0.00 - 0.50 K/cumm JOSELYN Comment:Testing performed by : [address] [address] Basophil abs 0.02 0.00 - 0.10 K/cumm JOSELYN Comment:Testing performed by : [address] [address] Neutrophil pct 23.6 % [facility] Comment: Interpretive Data Percent cell count reference ranges are not reported, since discordance with absolute values may lead to misinterpretation of CBC data. Current Interpretive Data was last revised on 2017. Testing performed by: [address] [address] Imm gran pct 0.2 % [facility] Comment: Interpretive Data Percent cell count reference ranges are not reported, since discordance with absolute values may lead to misinterpretation of CBC data. Current Interpretive Data was last revised on 2017. Testing performed by: [address] [address] Lymphocyte pct 72.2 % [facility] Comment: Interpretive Data Percent cell count reference ranges are not reported, since discordance with absolute values may lead to misinterpretation of CBC data. Current Interpretive Data was last revised on 2017. Testing performed by: [address] [address] Monocyte pct 3.1 % [facility] Comment: Interpretive Data Percent cell count reference ranges are not reported, since discordance with absolute values may lead to misinterpretation of CBC data. Current Interpretive Data was last revised on 2017. Testing performed by: [address] [address] Eosinophil pct 0.7 % [facility] Comment: Interpretive Data Percent cell count reference ranges are not reported, since discordance with absolute values may lead to misinterpretation of CBC data. Current Interpretive Data was last revised on 2017. Testing performed by: [address] [address] Basophil pct 0.2 % [facility] Comment: Interpretive Data Percent cell count reference ranges are not reported, since discordance with absolute values may lead to misinterpretation of CBC data. Current Interpretive Data was last revised on 2017. Testing performed by: [address] [address] Blood 10/28/2024 8:25 AM CDT 10/28/2024 8:26 AM CDT us Ramy Aguilera MD LAB BLOOD ORDERABLES Final R esult JOSELYN [address] [facility] Department [place] [address] * (ABNORMAL) CBC with auto differential (10/28/2024 8:25 AM CDT) WBC 8.45 3.80 - 9.90 K/cumm Comment:Testing performed by : [address] [address] Hgb 10.3(L) 11.9 - 15.5 g/dL JOSELYN Comment:Testing performed by : [address] [address] Hct 30.1(L) 35.6 - 45.5 % JOSELYN Comment:Testing performed by : [address] [address] Plt 145(L) 150 - 400 K/cumm JOSELYN Comment:Testing performed by : [address] [address] MPV 9.7 9.1 - 12.3 fL JOSELYN Comment:Testing performed by : [address] [address] RBC 3.37(L) 3.90 - 5.20 M/cumm JOSELYN Comment:Testing performed by : [address] [address] MCV 89.3 81.3 - 96.4 fL JOSELYN Comment:Testing performed by : [address] [address] MCH 30.6 27.1 - 33.3 pg JOSELYN VAZQUEZ Comment:Testing performed by : [address] [address] MCHC 34.2 32.3 - 35.7 g/dL JOSELYN Comment:Testing performed by : [address] [address] RDW CV 13.6 11.1 - 14.9 % JOSELYN Comment:Testing performed by : [address] [address] RDW SD 44.5 35.7 - 48.1 fL JOSELYN Comment:Testing performed by : [address] [address] NRBC abs 0.00 0.00 - 0.01 K/cumm JOSELYN Comment:Testing performed by : [address] [address] ANC Prelim 1.99 1.50 - 6.50 K/cumm JOSELYN Comment: Interpretive Data The rapid ANC is a preliminary automated count and may vary from the final ANC (Neut Abs) reported in the WBC differential that follows. Current interpretive data was last revised 2024. Testing performed by: [address] [address] Morphologic Screen Results confirmed by manual morphology review. JOSELYN Comment:Testing performed by : [address] [address] Blood 10/28/2024 8:25 AM CDT 10/28/2024 8:26 AM CDT us Ramy Aguilera MD LAB BLOOD ORDERABLES Edited Result - Final JOSELYN [address] [facility] Department [place] [address] * hCG, blood, quantitative (10/28/2024 8:25 AM CDT) hCG, quant <5.0 0.0 - 5.0 IUnits/L Comment: Interpretive Data Male: < 5 IU/L Non- premenopausal Female: <5 IU/L The Cosmo hCG Beta Quant assay procedure was used. Results from different manufacturers or methods may not be comparable. Serial testing should be performed using the same method. Interpretive Data was last revised on 2023 Testing performed by: [address] [address] Blood 10/28/2024 8:25 AM CDT 10/28/2024 9:06 AM CDT Ramy Aguilera MD LAB BLOOD ORDERABLES Edited Result - Final Performing Organization Address [facility] de Phone Number [address] [address] * Lactate dehydrogenase (LD) (10/28/2024 8:25 AM CDT) Pathologist [facility] Lactate dehydrogenase (LDH) 202 100 - 250 Units/L Comment:Testing performed by : [address] [address] Blood 10/28/2024 8:25 AM CDT 10/28/2024 8:26 AM CDT Ramy Aguilera MD LAB BLOOD ORDERABLES Final R esult Performing Organization Address [facility] de Phone Number [address] [address] * (ABNORMAL) Comprehensive metabolic panel (10/28/2024 8:25 AM CDT) Pathologist [facility] Sodium 136 135 - 145 mmol/L Comment:Testing performed by : [address] [address] Potassium, pl 3.1(L) 3.3 - 4.9 mmol/L JOSELYN Comment:Testing performed by : [address] [address] Chloride 97 97 - 110 mmol/L JOSELYN Comment:Testing performed by : [address] [address] CO2 28 22 - 32 mmol/L JOSELYN Comment:Testing performed by : [address] [address] Anion gap 11 2 - 15 mmol/L JOSELYN Comment:Testing performed by : [address] [address] BUN 6 6 - 25 mg/dL JOSELYN Comment:Testing performed by : [address] [address] Creatinine 0.80 0.60 - 1.10 mg/dL JOSELYN Comment:Testing performed by : [address] [address] Glucose 94 70 - 199 mg/dL [facility] was last revised 2022. Testing performed by: [address] [address] Calcium 10.1 8.5 - 10.3 mg/dL [facility] Comment:Testing performed by : [address] [address] Bilirubin, total 0.5 0.1 - 1.2 mg/dL [facility] Comment:Testing performed by : [address] [address] Protein, pl 5.9(L) 6.5 - 8.5 g/dL [facility] Comment:Testing performed by : [address] [address] Albumin 3.8 3.5 - 5.0 g/dL [facility] Comment:Testing performed by : [address] [address] Alk phos 153(H) 40 - 130 Units/L [facility] Comment:Testing performed by : [address] [address] ALT 13 7 - 45 Units/L JOSELYN Comment:Testing performed by : [address] [address] AST 21 10 - 45 Units/L [facility] Comment:Testing performed by : [facility], [address] [place] [address]., [address] Blood 10/28/2024 8:25 AM CDT 10/28/2024 8:26 AM CDT us Ramy Aguilera MD LAB BLOOD ORDERABLES Final R esult JOSELYN [address] [facility] [place] [address] from Last 3 Months Additional Health Concerns Infection Onset Date Last Indicated C. difficile 11/18/2024 11/18/2024 Insurance [facility] Advance Directives For more information, please contact: [phone] * Full Code (Latest Code Status on File) Date Activated Date Inactivated Comments 09/22/2024 9:00 PM 09/24/2024 10:30 PM * Full Code Date Activated Date Inactivated Comments 09/17/2024 2:33 PM 09/17/2024 11:[address] Sql Programmer Relationship Specialty Start Date End Date Satya Fernandez MD [address] [place] [address] PCP - General Internal Medicine 10/21/24 Ramy Aguilera MD [address] [place] [address] Medical Oncologist/Liquid Hydrogen Plant Operator Internal Medicine 09/23/24
--- OUTSIDE RECORDS SUMMARY | 2025-01-26 00:06 | XMS_ITS ---
Author Organization [facility] [address] [facility] Address [address] [place] [address] Care Team Providers Care Stallion Keeper Name Role Phone Ramy Aguilera MD Unavailable [phone] Satya Fernandez MD Primary Care Provider [phone] Active Problems Problem Noted Date Diagnosed Date [...] - Plan to discharge patient with outpatient [facility] follow-up on 09/30/24. Assessment & Plan [...]
--- OUTSIDE RECORDS SUMMARY | 2025-01-26 00:06 | XMS_ITS | Clinical Summary ---
Author Organization [facility] Address [address] [place] [address] Care Team Providers Care Lime Supervisor Name Role Phone None, Provider MD Primary [...] CDT - 01/25/2025 1:[address] [facility] [place] [address] Koko Rankin MD,PHD Mouth Sores Discharge Disposition: [...] - 99 MG/DL 01/25/2025 12:20 AM CDT [facility] BUN 17 7 - 18 MG/DL 01/25/2025 12:20 AM CDT [facility] CREATININE S/P/B 0.87 0.55 - 1.02 MG/DL 01/25/2025 12:20 AM CDT [facility] SODIUM S/P/B 138 136 - 145 MMOL/L 01/25/2025 12:20 AM CDT [facility] POTASSIUM S/P/B 4.1 3.5 - 5.1 MMOL/L 01/25/2025 12:20 AM CDT [facility] CHLORIDE S/P/B 101 97 - 115 MMOL/L 01/25/2025 12:20 AM CDT [facility] CO2 31.4 21 - 32 MMOL/L 01/25/2025 12:20 AM CDT [facility] CALCIUM S/P/B 9.1 8.5 - 10.1 MG/DL 01/25/2025 12:20 AM CDT [facility] BILIRUBIN TOTAL S/P/B 0.4 0.2 - 1.2 MG/DL 01/25/2025 12:20 AM CDT [facility] Comment: THIS ASSAY IS NOT RECOMMENDED FOR PATIENTS UNDERGOING TREATMENT WITH ELTROMBOPAG DUE TO THE POTENTIAL FOR FALSELY ELEVATED RESULTS. TOTAL PROTEIN S/P/B 6.4 6.4 - 8.2 G/DL 01/25/2025 12:20 AM CDT [facility] ALBUMIN S/P/B 3.5 3.4 - 5.0 G/DL 01/25/2025 12:20 AM CDT [facility] AST 22 15 - 37 U/L 01/25/2025 12:20 AM CDT [facility] ALT 26 14 - 55 U/L 01/25/2025 12:20 AM CDT [facility] ALKALINE PHOSPHATASE S/P/B 119 50 - 136 U/L 01/25/2025 12:20 AM CDT [facility] ANION GAP 5.6 2 - 10 MMOL/L 01/25/2025 12:20 AM CDT [facility] BUN CREATININE RATIO 19.5 6 - 26 01/25/2025 12:20 AM CDT [facility] A/G RATIO 1.2 1.0 - 2.0 RATIO 01/25/2025 12:20 AM CDT [facility] GFR ESTIMATE >90 >90 ML/MIN/1.7 3 M2 01/25/2025 12:20 AM CDT [facility] Comment: NOTE: eGFR is [...] Koko Rankin MD,PHD LABORATORY Final Resu lt [facility] [address] [place] [address], [place] [phone] * Qualitative HCG (01/24/2025 11:29 PM CDT) PREG SCREEN-SERUM NEGATIVE 01/25/2025 12:11 AM CDT [facility] 01/24/2025 11:2 9 PM CDT us Koko Rankin MD,PHD LABORATORY Final Resu lt [facility] [address] [place] [address], [place] [phone] * (ABNORMAL) CBC W/DIFF AUTOMATED (01/24/2025 11:29 PM CDT) [facility] Signature WBC 21.04(H) 4.5 - 11.0 x10'3/uL 01/25/2025 12:04 AM CDT [facility] RBC 2.63(L) 4.20 - 5.40 x10'6/uL 01/25/2025 12:04 AM CDT [facility] HGB 7.8(L) 12.0 - 16.0 G/DL 01/25/2025 12:04 AM CDT [facility] HCT 24.7(L) 38.0 - 48.0 % 01/25/2025 12:04 AM CDT [facility] MCV 93.9 81.0 - 99.0 FL 01/25/2025 12:04 AM CDT [facility] MCH 29.7 27.0 - 31.0 PG 01/25/2025 12:04 AM CDT [facility] MCHC 31.6(L) 32.0 - 36.0 G/DL 01/25/2025 12:04 AM CDT [facility] RDW 18.4(H) 11.5 - 14.5 % 01/25/2025 12:04 AM CDT [facility] PLT 109(L) 130 - 400 x10'3/uL 01/25/2025 12:04 AM CDT [facility] MPV 10.9 9.3 - 12.2 FL 01/25/2025 12:04 AM CDT [facility] DIFFERENTIAL TYPE MANUAL DIFFERENTIAL 01/25/2025 12:32 AM CDT [facility] SEG NEUTROPHILS 4 % 12:32 AM CDT [facility] LYMPHOCYTES 95 % 01/25/2025 12:32 AM CDT [facility] MONOCYTES 1 % 01/25/2025 12:32 AM CDT [facility] ABS. NEUTROPHILS 0.84(L) 1.80 - 7.70 x10'3/uL 01/25/2025 12:32 AM CDT [facility] ABS. LYMPHOCYTES 19.99(H) 1.00 - 4.80 x10'3/uL 01/25/2025 12:32 AM CDT [facility] ABS. MONOCYTES 0.21(L) 0.24 - 0.86 x10'3/uL 01/25/2025 12:32 AM CDT [facility] RBC MORPHOLOGY RBC MORPHOLOGY APPEARS NORMAL. SLIDE REVIEWED. 01/25/2025 12:32 AM CDT [facility] PLT EST. ADEQUATE 01/25/2025 12:32 AM CDT [facility] 01/24/2025 11:2 9 PM CDT Koko Rankin MD,PHD LABORATORY Final Resu lt [facility] [address] [place] [address], from Last 3 Months Insurance [employer] Advance Directives Documents on File Type Date Recorded Patient Spinner [employer] anation Legal Documents 05/21/2023 3:56 PM Care Teams Lime Supervisor Relationship Specialty Start Date End Date None, Provider, MD PCP - General UNKNOWN PHYSICIAN SPECIALTY 11/19/22
--- OUTSIDE RECORDS SUMMARY | 2025-01-26 00:06 | XMS_ITS ---
Author Organization [facility] Address [address] [place] [address] Phone Care Team Providers Care Ranch Hand Supervisor Name Role Phone Gabriel Salmeron MD Unavailable [phone] Brooks Sosa MD Unavailable [phone] Provider, None Primary Care Provider UnavailKervin Rubi MD Unavailable [facility] Status:Enrolled (Active) Start date:05/05/2024 Enrollment date:05/05/2024 Related social drivers of health:Social Connections, Tobacco Use, Depression, Stress, Physical Activity, Utilities Continued Care and Services Coordination
--- OUTSIDE RECORDS SUMMARY | 2025-01-26 00:07 | XMS_ITS | Clinical Summary ---
Author Organization [facility] Address [address] [facility] [address] [place] [address] Care Team Providers Care Bar Finish Operator Name Role Phone Unavailable Primary Care Provider Unavailabl e Source Comments [facility] [employer]non-owned Affiliates and Associated Physician Practices is amultiple site organization consisting of ambulatory clinics and hospital sitesin [place], [place], [place] and [place]. This disclosure is being madepursuant to the Care Everywhere program and may not contain all information available regarding this patient. Last updated 17.[facility] [employer] Social History Tobacco Use Types Packs/Day Years [...] patient's age to complete this topic Insurance [facility]
--- OUTSIDE RECORDS SUMMARY | 2025-01-26 00:07 | XMS_ITS | Clinical Summary ---
[facility] Address [address] [facility] [place] [address] Care Team Providers Care Paper Cutter Name Role Phone Unavailable Primary Care Provider [...] Pain, Mild. Active naloxone (NARCAN) 4 mg/spray Moran, Non-Aerosol EMERGENCY USE ONLY: Administer 1 spray [...] Comments Blood Pressure 109/66 04/17/2023 8:40 AM FINE ARTS PACKER Pulse 111 04/17/2023 8:40 AM FINE ARTS PACKER Temperature 36.6 C (97.9 F) 04/17/2023 8:40 AM F[employer] P[employer]ER Respiratory Rate 10 04/17/2023 8:40 AM FINE [employer] P[employer]ER Oxygen Saturation 92% 03/27/2023 11:06 AM FINE [employer]S PACKER Inhaled Oxygen Concentration - - Weight 51.3 kg (113 lb) 04/17/2023 8:40 AM FINE [employer] P[employer]ER Height 162.6 cm (5' 4) 03/24/2023 6:27 PM F[employer] P[employer]ER Body Mass Index 19.4 03/24/2023 6:27 PM FINE ARTS PACKER Plan of Treatment Health Maintenance Due Date [...] Advance Directives For more information, please contact: [phone] * Full Code (Latest Code Status on File) Date Activated Date Inactivated Comments 03/25/2023 1:09 AM 03/26/2023 3:29 PM
--- OUTSIDE RECORDS SUMMARY | 2025-01-26 00:07 | XMS_ITS | Encounter Summary ---
Author Organization [facility] Address [address] [facility] [place] [address] Care Team Providers Care Sound Cutter Name Role Phone Unavailable Primary Care Provider Unavailabl e Encounter Details Date Type Department Care Team (Late st Contact Info) Description 12/19/[address] [facility] - Pathology Lab [address] [place] [address] Ishan Escobedo MD [address] [phone] Illness, unspecified Social History Tobacco [...] CDT) Case Report Surgical Pathology Report Case: [id number] Authorizing Provider: Ishan Escobedo MD Collected: 12/18/2022 09:00 AM Ordering Location: [facility] Care Pathology Lab Received: 12/19/2022 [...] CD10 co-expression. Axillary lymph node, flow cytometry ([id number]): - [place] light chain restricted CD10+ B-cell population detected (~99% of overall events) Also received from [facility] is a peripheral smear showing circulating follicular lymphoma cells with occasional nuclear clefts. The peripheral blood is involved by follicular lymphoma. 12/19/2022 3:33 PM CDT [facility] Clinical History Suspect lymphoma. 12/19/2022 3:33 PM [facility] Materials Received Received are 4 slide(s) and 1 block labeled [id number] along with a copy of the outside pathology report. The materials originate from [facility], [address] [place] [address]. All original materials are returned to the referring institution, along with a copy of our final report. 12/19/2022 3:33 PM T [facility] Pathologist Location at [facility] 12/19/2022 3:33 PM T [facility] Disclaimer The performance characteristics of all immunohistochemical and indirect immunofluorescence stains (if any) cited in this report were determined by the Histopathology Laboratory of [facility]. Some of these tests were developed by [...] attending (teaching) pathologist. 12/19/2022 3:33 PM T [facility] Embedded Images 12/19/2022 3:33 PM T [facility] Pathology/Cytolo gy BIOPSY OF LYMPH NODE / Unknown 12/18/2022 9:00 AM CDT 12/19/2022 1:25 PM CDT us Ishan Escobedo MD LAB - PATHOLOGY/CYTOLOGY ORDERAB LES Final Result [facility] [address] [facility]. [address] [phone] documented in this encounter Visit Diagnoses Diagnosis Illness, unspecified documented in this encounter
--- OUTSIDE RECORDS SUMMARY | 2025-01-26 00:07 | XMS_ITS | Encounter Summary ---
Author Organization [facility] Address [address] [place] [address] Care Team Providers Care Boat Camp Operator Name Role Phone Unavailable Primary Care Provider Unavailabl e Encounter Details Date Type Department Care Team (Late st Contact Info) Description 12/18/2022 Lab Requisition [facility] - Pathology Lab [address] [place] [address] Ishan Escobedo MD [address] [facility] [address] [place] [phone] Generalized enlarged lymph nodes Social History [...] AM CDT) Case Report Flow Cytometry Case: [id number] Authorizing Provider: Ishan Escobedo MD Collected: 12/18/2022 09:00 AM Ordering Location: [facility] Care Pathology Lab Received: 12/18/2022 03:11 PM Pathologist: Giovanni Chow MD Specimen: Axillary Lymph Node, RIGHT 12/18/2022 5:15 PM CDT [facility] Final Diagnosis Axillary lymph node, flow cytometry: - [place] light chain restricted CD10+ B-cell population detected (~99% of overall events) 12/18/2022 5:15 PM CDT [facility] at 1714 CDT Flow Cytometry Interpretation Viability: 87%. B-cells: monoclonal, kappa-restricted, expressing CD19, CD20, and CD10. T-cells: not increased, no immunophenotypic aberrancy. A cytospin prepared from the flow cytometry specimen has been reviewed for senior quality technician purposes. 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 Histologic slides are pending for final subclassification. 12/18/2022 5:15 PM [facility] Flow Cytometry Results Differential Result Comment Flow Cell Count /uL 9,000 Total Viability % 87.0 Lymphocytes % 99 Dim CD45 Region % 0 Monocytes % 0 Granulocytes % 1 12/18/2022 5:15 PM [facility] Reason for test Generalized enlarged lymph nodes 785.6 12/18/2022 5:15 PM [facility] Client Specimen ID # [id number] 12/18/2022 5:15 PM [facility] Number of markers 16 were performed. A-2 Flow CD3 A-4 Flow CD10 A-6 Flow CD20 A-7 Flow CD23 A-12 Flow CD2 A-13 Flow CD4 A-16 Flow CD1a A-3 Flow CD5 A-5 Flow CD19 A-8 Flow CD34 A-9 Flow CD45 A-14 Flow CD7 A-15 Flow CD8 A-17 Flow CD30 A-10 [place]+CD19+ A-11 Lambda+CD19+ 12/18/2022 5:15 PM [facility] Pathologist Location at [facility] 12/18/2022 5:15 PM [facility] Disclaimer Test performed at [facility], [address] [place] [address], [id number]. *The established laboratory minimum viability is 70%. [...] PATHOLOGY LAB Embedded Images 5:15 PM CDT [facility] Pathology/Cytolo gy AXILLARY LYMPH NODE STRUCTURE / Unknown 12/18/2022 9:00 AM CDT 12/18/2022 3:11 PM CDT us Ishan Escobedo MD LAB - PATHOLOGY/CYTOLOGY ORDERAB LES Final Result [facility] [address] [phone] documented in this encounter Visit Diagnoses Diagnosis Generalized enlarged lymph nodes Enlargement of lymph nodes documented in this encounter
== END 2025-01-25 23:50 | disposition left against medical advice (07) ==
PROVIDERS: Emergency Provider Registered Nurse
DX: M79.601 Pain in right arm (principal)
CPT/HCPCS: 99199

== ENCOUNTER 2025-02-16 21:18 | Emergency (ER) | payer OTHER, SELFPAY ==
--- OUTSIDE RECORDS SUMMARY | 2024-10-11 08:40 | XMS_ITS ---
Author Organization [facility] Address [address] [place] [address] Care Team Providers Care Marine Oil Terminal Superintendent Name Role Phone Satya Fernandez Primary Care Provider [phone] REASON FOR VISIT 2 Week F/U Social History Sex Assigned At : Social History Observation Description Sex Assigned At Female Encounters Encounter Location Date Provider Diagnosis [address] [place] [address] 10/11/2024 Satya Fernandez Plan Of Treatment No Information Progress Notes * Soha MARRERO RDOB:[birth year] (34 yo F)Acc No.[id number]:10/11/2024 UNLOCKED PROGRESS NOTE Progress Notes Patient: Sissy OCAMPO Soha Arredondo Provider: Devin Fernandez :1990 A ge:34 Y S ex:Female Date:10/11/2024 Address:[address] [place] [address] Subjective: * Chief Complaints: * 1 . 2 Week F/U. * Medical History: Objective: * Vitals: Assessment: Plan: * Treatment: * * Electronic signature of Kar Fernandez , [id number] on 02/16/2025 at 08:12 AM RN PROGRESSIVE CARE Sign off status: Pending * Provider: Devin Fernandez Date: 0 10/11/2024 Generated for Cassie ng/Faxing/eTransmitting on: 04/18/2024 08:12 AM RN PROGRESSIVE CARE
--- NOTE | ~2025-02-16 | XR_ITS ---
Examination: XR abdomen/kub 1V Clinical History: abd distention lymphoma Comparison: CT abdomen pelvis 08/06/2024 Technique: 2 views supine AP abdomen Findings: Lung bases clear. Scattered colonic gas and stool. Small bowel loops not well seen. No abnormal abdominal calcifications. No acute bony abnormality. IMPRESSION: 1. No acute abnormality. Reviewed, dictated and finalized at location R. [facility]IC [facility]E [facility]STER IMPRESSION: 1. No acute abnormality.
--- OUTSIDE RECORDS SUMMARY | 2025-02-16 21:21 | XMS_ITS | Clinical Summary ---
Author Organization [place] [address] [facility] Address [address] [place] [address] Care Team Providers Care Mannequin Mold Maker Name Role Phone Ramy Aguilera MD Unavailable [phone] Satya Fernandez MD Primary Care Provider Allergies Active Allergy Reactions [...] times daily, Indications: Panic Disorder, Reported on 02/03/2025 oxyCODONE (ROXICODONE) 5 mg immediate release tabletIndications: [...] 30 tablet 2 10/01/19 25 025 Active predniSONE (DELTASONE) 50 mg tabletIndications: Follicular [...] to starting treatment. 20 tablet 01/15/20 25 Active predniSONE (DELTASONE) 50 mg tabletIndications: Follicular lymphoma, unspecified follicular lymphoma type, unspecified body region (HCC),Prevention of chemotherapy-induc ed neutropenia Take 2 tablets (100 mg) by mouth daily Take on days 2-6 of each treatment cycle. 10 tablet 02/11/20 25 Active Active Problems Problem Noted Date Diagnosed [...] - Plan to discharge patient with outpatient [facility] [place] on 09/30/24. Assessment & Plan (09/23/2024 [...] - Plan to discharge patient with outpatient [facility] [place] on 09/30/24. Assessment & Plan (09/23/2024 [...] - Plan to discharge patient with outpatient [facility] [place] on 09/30/24. Assessment & Plan (09/23/2024 [...] Encounters Date Type Department Care Team Description 02/10/2025 11:00 AM KERSEY DEPARTMENT SUPERVISOR Infusion [facility] at [address] [phone] Follicular lymphoma, unspecified follicular lymphoma type, unspecified body region (HCC) (Primary Dx); Prevention of chemotherapy-induced neutropenia 02/10/2025 10:30 AM KERSEY DEPARTMENT SUPERVISOR Lab [address] [address] Prevention of chemotherapy-induced neutropenia (Primary Dx); Follicular lymphoma, unspecified follicular lymphoma type, unspecified body region (HCC) 02/10/2025 Social Work [facility] [address] [place] [phone] Marycarmen Gray LCSW 02/03/2025 12:00 PM CDT Infusion [address] [phone] Follicular lymphoma, unspecified follicular lymphoma type, unspecified body region (HCC) (Primary Dx); Prevention of chemotherapy-induced neutropenia 02/03/2025 11:30 AM CDT [facility] [address] [place] [phone] Ramy Aguilera MD Follicular lymphoma, unspecified follicular lymphoma type, unspecified body region (HCC) (Primary Dx); Prevention of chemotherapy-induced neutropenia 02/03/2025 11:00 AM CDT Lab [address] [address] Follicular lymphoma, unspecified follicular lymphoma type, unspecified body region (HCC); Prevention of chemotherapy-induced neutropenia 02/03/2025 Orders Only [facility] [address] [place] [phone] Ramy Aguilera MD 01/18/2025 Social Work [facility] [address] [place] [phone] Desirae Bates LCSW 01/13/2025 12:00 PM CDT Clinical Support [facility] Medical Office Building 2 Radiation Oncology [address] [place] [phone] Follicular lymphoma, unspecified follicular lymphoma type, unspecified body region (HCC) (Primary Dx) 01/13/2025 10:30 AM CDT Infusion [address] [phone] Prevention of chemotherapy-induced neutropenia (Primary Dx); Follicular lymphoma, unspecified follicular lymphoma type, unspecified body region (HCC) 01/13/2025 10:00 AM CDT Office Visit [facility] [address] [place] [phone] Ramy Aguilera MD Follicular lymphoma, unspecified follicular lymphoma type, unspecified body region (HCC) (Primary Dx); Prevention of chemotherapy-induced neutropenia 01/13/2025 9:30 AM CDT Lab [address] [address] Follicular lymphoma, unspecified follicular lymphoma type, unspecified body region (HCC); Prevention of chemotherapy-induced neutropenia 01/12/2025 Orders Only [facility] [address] [place] [phone] Ramy Aguilera MD 12/30/2024 Orders Only [facility] at [address] [phone] Paulina German RPh 12/23/2024 10:30 AM CDT Infusion [facility] at [address] [phone] Prevention of chemotherapy-induced neutropenia (Primary Dx); Follicular lymphoma, unspecified follicular lymphoma type, unspecified body region (HCC) 12/23/2024 10:00 AM CDT Office Visit [facility] [address] [place] [phone] Ramy Aguilera MD Follicular lymphoma, unspecified follicular lymphoma type, unspecified body region (HCC) (Primary Dx); Prevention of chemotherapy-induced neutropenia 12/23/2024 9:30 AM CDT Lab [address] [address] Follicular lymphoma, unspecified follicular lymphoma type, unspecified body region (HCC); Prevention of chemotherapy-induced neutropenia 12/22/[address] [facility] [address] [place] [phone] Ramy Aguilera MD 12/16/2024 Orders Only [address] [phone] Paulina German helena 12/15/2024 8:06 AM CDT - 12/15/2024 11:59 PM CDT Hospital Encounter [facility] [address] [place] [address] Follicular lymphoma, unspecified follicular lymphoma type, unspecified body region (HCC) Discharge Disposition: Discharge to home or self care 12/09/2024 10:00 AM CDT Office Visit [facility] [address] [place] [phone] Paige Giordano NP Follicular lymphoma, unspecified follicular lymphoma type, unspecified body region (HCC) (Primary Dx) 12/09/2024 9:30 AM CDT Lab [address] [address] Follicular lymphoma, unspecified follicular lymphoma type, unspecified body region (HCC) 11/18/2024 8:45 AM CDT Infusion [address] [phone] Follicular lymphoma, unspecified follicular lymphoma type, unspecified body region (HCC) (Primary Dx) 11/18/2024 8:15 AM CDT Office Visit [facility] [address] [place] [address] [address] [place] [phone] Ramy Aguilera MD Follicular lymphoma, unspecified follicular lymphoma type, unspecified body region (HCC) (Primary Dx); Diarrhea, unspecified type 11/18/2024 7:45 AM CDT Lab [facility] at [address] [address] Follicular lymphoma, unspecified follicular lymphoma type, unspecified body region (HCC); Diarrhea, unspecified type 11/18/2024 Orders Only [facility] Oncology [address] [place] [address] [address] [place] [phone] Ramy Aguilera MD from Last 3 Months [...] Sign Reading Time Taken Comments Blood Pressure 98/62 02/10/2025 10:55 AM KERSEY DEPARTMENT SUPERVISOR Pulse 93 02/10/2025 10:55 AM KERSEY DEPARTMENT SUPERVISOR Temperature 36.5 C (97.7 F) 02/10/2025 10:55 AM KERSEY DEPARTMENT SUPERVISOR Respiratory Rate 16 02/10/2025 10:5 5 AM KERSEY DEPARTMENT SUPERVISOR Oxygen Saturation 100% 02/10/2025 10: 55 AM KERSEY DEPARTMENT SUPERVISOR Inhaled Oxygen Concentration - - Weight 49.2 kg (108 lb 7.5 oz) 02/11/20 25 10:55 AM KERSEY DEPARTMENT SUPERVISOR W/O SHOES Height 158.5 cm (5' 2.4) 12/23/2024 10 :45 AM CDT Body Mass Index 19.58 12/23/2024 10:45 AM CDT Plan of Treatment Upcoming Encounters Date Type Department Care Team (Late st Contact Info) Description 2025 10:00 AM KERSEY DEPARTMENT SUPERVISOR Hospital Encounter [facility] Office Building [address] [address] Health Maintenance Due Date Last Done Comments [...] Associated Diagnosis Comments BLOOD SMEAR REVIEW Routine 02/10/2025 10:45 AM KERSEY DEPARTMENT SUPERVISOR Follicular lymphoma, unspecified follicular lymphoma type, unspecified body region (HCC) Prevention of chemotherapy-jeanie hany neutropenia EGFR STAT 02/10/2025 10:45 AM KERSEY DEPARTMENT SUPERVISOR Follicular lymphoma, unspecified follicular lymphoma type, unspecified body region (HCC) Prevention of chemotherapy-jeanie hany neutropenia DIFFERENTIAL AUTO Routine 02/10/2025 10:45 AM KERSEY DEPARTMENT SUPERVISOR Follicular lymphoma, unspecified follicular lymphoma type, unspecified body region (HCC) Prevention of chemotherapy-jeanie hany neutropenia CBC WITH AUTO DIFFERENTIAL Routine 02/10/2025 10:45 AM KERSEY DEPARTMENT SUPERVISOR Follicular lymphoma, unspecified follicular lymphoma type, unspecified body region (HCC) Prevention of chemotherapy-jeanie hany neutropenia COMPREHENSIVE METABOLIC PANEL STAT 02/10/2025 10:45 AM KERSEY DEPARTMENT SUPERVISOR Follicular lymphoma, unspecified follicular lymphoma type, unspecified body region (HCC) Prevention of chemotherapy-jeanie hany neutropenia HCG, BLOOD, QUANTITATIVE STAT 02/10/2025 10:45 AM KERSEY DEPARTMENT SUPERVISOR Follicular lymphoma, unspecified follicular lymphoma type, unspecified body region (HCC) Prevention of chemotherapy-jeanie hany neutropenia LACTATE DEHYDROGENASE STAT 02/03/2025 11:19 AM CDT Follicular lymphoma, unspecified follicular lymphoma type, unspecified body region (HCC) Prevention of chemotherapy-jeanie hany neutropenia BLOOD SMEAR REVIEW Routine 02/03/2025 11:19 AM CDT Follicular lymphoma, unspecified follicular lymphoma type, unspecified body region (HCC) Prevention of chemotherapy-jeanie hany neutropenia EGFR STAT 02/03/2025 11:19 AM CDT Follicular lymphoma, unspecified follicular lymphoma type, unspecified body region (HCC) Prevention of chemotherapy-jeanie hany neutropenia DIFFERENTIAL AUTO Routine 02/03/2025 11:19 AM CDT Follicular lymphoma, unspecified follicular lymphoma type, unspecified body region (HCC) Prevention of chemotherapy-jeanie hany neutropenia CBC WITH AUTO DIFFERENTIAL Routine 02/03/2025 11:19 AM CDT Follicular lymphoma, unspecified follicular lymphoma type, unspecified body region (HCC) Prevention of chemotherapy-jeanie hany neutropenia COMPREHENSIVE METABOLIC PANEL STAT 02/03/2025 11:19 AM CDT Follicular lymphoma, unspecified follicular lymphoma type, unspecified body region (HCC) Prevention of chemotherapy-jeanie hany neutropenia HCG, BLOOD, QUANTITATIVE STAT 02/03/2025 11:19 AM CDT Follicular lymphoma, unspecified follicular lymphoma type, unspecified body region (HCC) Prevention of chemotherapy-jeanie hany neutropenia BLOOD SMEAR REVIEW Routine 01/13/2025 10:00 AM [...] Months Results * (ABNORMAL) Blood smear review (02/10/2025 10:45 AM KERSEY DEPARTMENT SUPERVISOR) RBC morphology Consistent with RBC Indicies Comment:Testing performed by : [address] [address] Anisocytosis Slight(A) JOSELYN VAZQUEZ Comment:Testing performed by : [address] [place]., [address] Platelet estimate Adequate JOSELYN Comment:Testing performed by : [address] [address] Blood 02/10/2025 10:4 5 AM KERSEY DEPARTMENT SUPERVISOR 02/10/2025 10:48 AM KERSEY DEPARTMENT SUPERVISOR us Ramy Aguilera MD LAB BLOOD ORDERABLES Final R esult Performing Organization Address City/[facility]/ZIP Co de Phone Number JOSELYN [address] [place] [address] * eGFR (02/10/2025 10:45 AM KERSEY DEPARTMENT SUPERVISOR) eGFR >90 >=60 mL/min/1. 73 m2 Comment: [...] was last reviewed 2021. Testing performed by: [address] [address] Blood 02/10/2025 10:4 5 AM KERSEY DEPARTMENT SUPERVISOR 02/10/2025 10:48 AM KERSEY DEPARTMENT SUPERVISOR us Ramy Aguilera MD LAB BLOOD ORDERABLES Final R esult Performing Organization Address City/[facility]/ZIP Co de Phone Number JOSELYN [facility] [employer] [place] [address] * (ABNORMAL) Differential, auto (02/10/2025 10:45 AM KERSEY DEPARTMENT SUPERVISOR) Neutrophil abs 2.05 1.50 - 6.50 K/cumm Comment:Testing performed by : [address] [address] Imm gran abs 0.01 0.00 - 0.10 K/cumm JOSELYN Comment:Testing performed by : [address] [address] Lymphocyte abs 13.08(H) 0.80 - 3.30 K/cumm JOSELYN Comment:Testing performed by : [address] [address] Monocyte abs 0.29 0.20 - 0.80 K/cumm [facility] Comment:Testing performed by : [address] [address] Eosinophil abs 0.02 0.00 - 0.50 K/cumm JOSELYN Comment:Testing performed by : [address] [address] Basophil abs 0.07 0.00 - 0.10 K/cumm [facility] Comment:Testing performed by : [address] [address] Neutrophil pct 13.1 % [facility] Comment: Interpretive Data Percent cell count reference ranges are not reported, since discordance with absolute values may lead to misinterpretation of CBC data. Current Interpretive Data was last revised on 2017. Testing performed by: [address] [address] Imm gran pct 0.1 % [facility] Comment: Interpretive Data Percent cell count reference ranges are not reported, since discordance with absolute values may lead to misinterpretation of CBC data. Current Interpretive Data was last revised on 2017. Testing performed by: [address] [address] Lymphocyte pct 84.3 % [facility] Comment: Interpretive Data Percent cell count reference ranges are not reported, since discordance with absolute values may lead to misinterpretation of CBC data. Current Interpretive Data was last revised on 2017. Testing performed by: [address] [address] Monocyte pct 1.9 % JOSELYN Comment: Interpretive Data Percent cell count reference ranges are not reported, since discordance with absolute values may lead to misinterpretation of CBC data. Current Interpretive Data was last revised on 2017. Testing performed by: [address] [address] Eosinophil pct 0.1 % JOSELYN Comment: Interpretive Data Percent cell count reference ranges are not reported, since discordance with absolute values may lead to misinterpretation of CBC data. Current Interpretive Data was last revised on 2017. Testing performed by: [address] [address] Basophil pct 0.5 % JOSELYN Comment: Interpretive Data Percent cell count reference ranges are not reported, since discordance with absolute values may lead to misinterpretation of CBC data. Current Interpretive Data was last revised on 2017. Testing performed by: [address] [address] Blood 02/10/2025 10:4 5 AM KERSEY DEPARTMENT SUPERVISOR 02/10/2025 10:48 AM KERSEY DEPARTMENT SUPERVISOR us Ramy Aguilera MD LAB BLOOD ORDERABLES Final R esult [facility] [address] [facility] Department [place] [address] * (ABNORMAL) CBC with auto differential (02/10/2025 10:45 AM KERSEY DEPARTMENT SUPERVISOR) WBC 15.52(H) 3.80 - 9.90 K/cumm Comment:Testing performed by : [address] [address] Hgb 7.9(L) 11.9 - 15.5 g/dL JOSELYN Comment:Testing performed by : [address] [address] Hct 25.5(L) 35.6 - 45.5 % JOSELYN Comment:Testing performed by : [address] [address] Plt 128(L) 150 - 400 K/cumm JOSELYN Comment:Testing performed by : [address] [address] MPV 10.3 9.1 - 12.3 fL JOSELYN Comment:Testing performed by : [address] [address] RBC 2.75(L) 3.90 - 5.20 M/cumm JOSELYN Comment:Testing performed by : [address] [address] MCV 92.7 81.3 - 96.4 fL JOSELYN Comment:Testing performed by : [address] [address] MCH 28.7 27.1 - 33.3 pg JOSELYN Comment:Testing performed by : [address] [address] MCHC 31.0(L) 32.3 - 35.7 g/dL JOSELYN Comment:Testing performed by : [address] [address] RDW CV 18.0(H) 11.1 - 14.9 % JOSELYN Comment:Testing performed by : [address] [address] RDW SD 60.4(H) 35.7 - 48.1 fL JOSELYN Comment:Testing performed by : [address] [address] NRBC abs 0.00 0.00 - 0.01 K/cumm JOSELYN Comment:Testing performed by : [address] [address] ANC Prelim 2.05 1.50 - 6.50 K/cumm JOSELYN Comment: Interpretive Data The rapid ANC is a preliminary automated count and may vary from the final ANC (Neut Abs) reported in the WBC differential that follows. Current interpretive data was last revised 2024. Testing performed by: [address], [address] Blood 02/10/2025 10:4 5 AM KERSEY DEPARTMENT SUPERVISOR 02/10/2025 10:48 AM KERSEY DEPARTMENT SUPERVISOR Ramy Aguilera MD LAB BLOOD ORDERABLES Final R esult Performing Organization Address [facility] de Phone Number JOSELYN [facility]5 [facility] [place] [address] * hCG, blood, quantitative (02/10/2025 10:45 AM KERSEY DEPARTMENT SUPERVISOR) [facility] hCG, quant <5.0 0.0 - 5.0 IUnits/L Comment: Interpretive Data Male: < 5 IU/L Non- premenopausal Female: <5 IU/L The [employer] hCG Beta Quant assay procedure was used. Results from different manufacturers or methods may not be comparable. Serial testing should be performed using the same method. Interpretive Data was last revised on 2023 Testing performed by: [address] [address] Blood 02/10/2025 10:4 5 AM KERSEY DEPARTMENT SUPERVISOR 02/10/2025 11:06 AM KERSEY DEPARTMENT SUPERVISOR Ramy Aguilera MD LAB BLOOD ORDERABLES Final R esult Performing Organization Address City/[facility] Co de Phone Number JOSELYN [facility]9 [facility] [place] [address] * (ABNORMAL) Comprehensive metabolic panel (02/10/2025 10:45 AM KERSEY DEPARTMENT SUPERVISOR) [facility] Sodium 143 135 - 145 mmol/L Comment:Testing performed by : [address] [address] Potassium, pl 3.8 3.3 - 4.9 mmol/L JOSELYN VAZQUEZ Comment:Testing performed by : [address] [address] Chloride 102 97 - 110 mmol/L JOSELYN VAZQUEZ Comment:Testing performed by : [address] [address] CO2 29 22 - 32 mmol/L JOSELYN VAZQUEZ Comment:Testing performed by : [address] [place]., [address] Anion gap 12 2 - 15 mmol/L [facility] Comment:Testing performed by : [address] [address] BUN 12 6 - 25 mg/dL JOSELYN Comment:Testing performed by : [address] [address] Creatinine 0.80 0.60 - 1.10 mg/dL JOSELYN Comment:Testing performed by : [address] [address] Glucose 94 70 - 199 mg/dL [facility] Comment: Interpretive Data Fasting glucose >/= 126 [...] was last revised 2022. Testing performed by: [address] [address] Calcium 9.0 8.5 - 10.3 mg/dL JOSELYN Comment:Testing performed by : [address] [address] Bilirubin, total 0.3 0.1 - 1.2 mg/dL JOSELYN Comment:Testing performed by : [address] [address] Protein, pl 6.1(L) 6.5 - 8.5 g/dL JOSELYN Comment:Testing performed by : [address] [address] Albumin 4.0 3.5 - 5.0 g/dL JOSELYN Comment:Testing performed by : [address] [address] Alk phos 149(H) 40 - 130 Units/L JOSELYN Comment:Testing performed by : [address] [address] ALT 11 7 - 45 Units/L JOSELYN VAZQUEZ Comment:Testing performed by : [address] [address] AST 23 10 - 45 Units/L JOSELYN VAZQUEZ Comment:Testing performed by : [address] [address] Blood 02/10/2025 10:4 5 AM KERSEY DEPARTMENT SUPERVISOR 02/10/2025 10:48 AM KERSEY DEPARTMENT SUPERVISOR us Ramy Aguilera MD LAB BLOOD ORDERABLES Final R esult Performing Organization Address [facility] de Phone Number JOSELYN [facility]0 [facility] [place] [address] * (ABNORMAL) Blood smear review (02/03/2025 11:19 AM CDT) Pathologist [facility] RBC morphology Consistent with RBC Indicies Comment:Testing performed by : [address] [address] Anisocytosis Slight(A) JOSELYN VAZQUEZ Comment:Testing performed by : [address] [address] Platelet estimate Adequate JOSELYN Comment:Testing performed by : [address] [address] Blood 02/03/2025 11:1 9 AM CDT 02/03/2025 11:22 AM CDT Ramy Aguilera MD LAB BLOOD ORDERABLES Final R esult Performing Organization Address [facility] Co de Phone Number [facility] [address] [facility] [place] [address] * eGFR (02/03/2025 11:19 AM CDT) eGFR >90 >=60 mL/min/1. 73 [...] was last reviewed 2021. Testing performed by: [address] [address] Blood 02/03/2025 11:1 9 AM CDT 02/03/2025 11:22 AM CDT us Ramy Aguilera MD LAB BLOOD ORDERABLES Final R esult [facility] [address] [facility] Department of Laboratories [place], [place] [id number] * (ABNORMAL) Differential, auto (02/03/2025 11:19 AM CDT) Neutrophil abs 2.22 1.50 - 6.50 K/cumm Comment:Testing performed by : [address] [address] Imm gran abs 0.04 0.00 - 0.10 K/cumm JOSELYN Comment:Testing performed by : [address] [address] Lymphocyte abs 22.28(H) 0.80 - 3.30 K/cumm JOSELYN Comment:Testing performed by : [address] [address] Monocyte abs 0.58 0.20 - 0.80 K/cumm JOSELYN Comment:Testing performed by : [address] [address] Eosinophil abs 0.01 0.00 - 0.50 K/cumm JOSELYN Comment:Testing performed by : [address] [address] Basophil abs 0.11(H) 0.00 - 0.10 K/cumm JOSELYN Comment:Testing performed by : [address] [address] Neutrophil pct 8.8 % JOSELYN Comment: Interpretive Data Percent cell count reference ranges are not reported, since discordance with absolute values may lead to misinterpretation of CBC data. Current Interpretive Data was last revised on 2017. Testing performed by: [address] [address] Imm gran pct 0.2 % [facility] Comment: Interpretive Data Percent cell count reference ranges are not reported, since discordance with absolute values may lead to misinterpretation of CBC data. Current Interpretive Data was last revised on 2017. Testing performed by: [address] [address] Lymphocyte pct 88.3 % [facility] Comment: Interpretive Data Percent cell count reference ranges are not reported, since discordance with absolute values may lead to misinterpretation of CBC data. Current Interpretive Data was last revised on 2017. Testing performed by: [address] [address] Monocyte pct 2.3 % [facility] Comment: Interpretive Data Percent cell count reference ranges are not reported, since discordance with absolute values may lead to misinterpretation of CBC data. Current Interpretive Data was last revised on 2017. Testing performed by: [address] [address] Eosinophil pct 0.0 % [facility] Comment: Interpretive Data Percent cell count reference ranges are not reported, since discordance with absolute values may lead to misinterpretation of CBC data. Current Interpretive Data was last revised on 2017. Testing performed by: [address] [address] Basophil pct 0.4 % [facility] Comment: Interpretive Data Percent cell count reference ranges are not reported, since discordance with absolute values may lead to misinterpretation of CBC data. Current Interpretive Data was last revised on 2017. Testing performed by: [address] [address] Blood 02/03/2025 11:1 9 AM CDT 02/03/2025 11:22 AM CDT us Ramy Aguilera MD LAB BLOOD ORDERABLES Final R esult [facility] [address] [facility] Department [place] [address] * (ABNORMAL) CBC with auto differential (02/03/2025 11:19 AM CDT) WBC 25.24(H) 3.80 - 9.90 K/cumm Comment:Testing performed by : [address] [address] Hgb 8.7(L) 11.9 - 15.5 g/dL JOSELYN Comment:Testing performed by : [address] [address] Hct 28.1(L) 35.6 - 45.5 % JOSELYN Comment:Testing performed by : [address] [address] Plt 176 150 - 400 K/cumm JOSELYN Comment:Testing performed by : [address] [address] MPV 9.6 9.1 - 12.3 fL JOSELYN Comment:Testing performed by : [address] [address] RBC 3.07(L) 3.90 - 5.20 M/cumm JOSELYN Comment:Testing performed by : [address] [address] MCV 91.5 81.3 - 96.4 fL JOSELYN Comment:Testing performed by : [address] [address] MCH 28.3 27.1 - 33.3 pg JOSELYN Comment:Testing performed by : [address] [address] MCHC 31.0(L) 32.3 - 35.7 g/dL JOSELYN Comment:Testing performed by : [address] [address] RDW CV 17.6(H) 11.1 - 14.9 % JOSELYN Comment:Testing performed by : [address] [address] RDW SD 57.8(H) 35.7 - 48.1 fL JOSELYN Comment:Testing performed by : [address] [address] NRBC abs 0.02(H) 0.00 - 0.01 K/cumm JOSELYN Comment:Testing performed by : [address] [address] ANC Prelim 2.22 1.50 - 6.50 K/cumm JOSELYN Comment: Interpretive Data The rapid ANC is a preliminary automated count and may vary from the final ANC (Neut Abs) reported in the WBC differential that follows. Current interpretive data was last revised 2024. Testing performed by: [address] [address] Blood 02/03/2025 11:1 9 AM CDT 02/03/2025 11:22 AM CDT us Ramy Aguilera MD LAB BLOOD ORDERABLES Edited Result - Final [facility] [address] [facility] Department [place] [address] * hCG, blood, quantitative (02/03/2025 11:19 AM CDT) hCG, quant <5.0 0.0 - 5.0 IUnits/L Comment: Interpretive Data Male: < 5 IU/L Non- premenopausal Female: <5 IU/L The Cosmo hCG Beta Quant assay procedure was used. Results from different manufacturers or methods may not be comparable. Serial testing should be performed using the same method. Interpretive Data was last revised on 2023 Testing performed by: [address] [address] Blood 02/03/2025 11:1 9 AM CDT 02/03/2025 11:45 AM CDT Ramy Aguilera MD LAB BLOOD ORDERABLES Final R esult Performing Organization Address [facility] de Phone Number [address] [address] * (ABNORMAL) Lactate dehydrogenase (LD) (02/03/2025 11:19 AM CDT) Lactate dehydrogenase (LDH) 392(H) 100 - 250 Units/L Comment: HEMOLYZED: Hemolysis interferes with the above test. Testing performed by: [address] [address] Blood 02/03/2025 11:1 9 AM CDT 02/03/2025 11:22 AM CDT Ramy Aguilera MD LAB BLOOD ORDERABLES Final R esult Performing Organization Address [facility] de Phone Number [address] [address] * (ABNORMAL) Comprehensive metabolic panel (02/03/2025 11:19 AM CDT) Pathologist [facility] Sodium 136 135 - 145 mmol/L Comment:Testing performed by : [address] [address] Potassium, pl 3.7 3.3 - 4.9 mmol/L JOSELYN Comment:Testing performed by : [address] [address] Chloride 99 97 - 110 mmol/L JOSELYN Comment:Testing performed by : [address] [address] CO2 23 22 - 32 mmol/L JOSELYN Comment:Testing performed by : [address] [address] Anion gap 14 2 - 15 mmol/L JOSELYN Comment:Testing performed by : [address] [address] BUN 8 6 - 25 mg/dL JOSELYN Comment:Testing performed by : [address] [address] Creatinine 0.70 0.60 - 1.10 mg/dL JOSELYN Comment:Testing performed by : [address] [address] Glucose 105 70 - 199 mg/dL JOSELYN Comment: Interpretive [...] was last revised 2022. Testing performed by: [address] [address] Calcium 9.3 8.5 - 10.3 mg/dL JOSELYN Comment:Testing performed by : [address] [address] Bilirubin, total 0.5 0.1 - 1.2 mg/dL JOSELYN Comment:Testing performed by : [address] [address] Protein, pl 6.4(L) 6.5 - 8.5 g/dL JOSELYN Comment:Testing performed by : [address] [address] Albumin 4.0 3.5 - 5.0 g/dL JOSELYN Comment:Testing performed by : [address] [address] Alk phos 180(H) 40 - 130 Units/L JOSELYN Comment:Testing performed by : [address] [address] ALT 25 7 - 45 Units/L JOSELYN Comment:Testing performed by : [address] [address] AST 33 10 - 45 Units/L JOSELYN Comment:Testing performed by : [address] [address] Blood 02/03/2025 11:1 9 AM CDT 02/03/2025 11:22 AM CDT Ramy Aguilera MD LAB BLOOD ORDERABLES Final R esult Performing Organization Address [facility] de Phone Number [address] [address] * (ABNORMAL) Blood smear review (01/13/2025 10:00 AM CDT) Pathologist [facility] RBC morphology Consistent with RBC Indicies Comment:Testing performed by : [address] [address] Anisocytosis Slight(A) JOSELYN Comment:Testing performed by : [address] [address] Platelet estimate Adequate JOSELYN Comment:Testing performed by : [address] [address] Blood 01/13/2025 10:0 0 AM CDT 01/13/2025 10:02 AM CDT Ramy Aguilera MD LAB BLOOD ORDERABLES Final R esult Performing Organization Address [facility] de Phone Number [address] [address] * eGFR (01/13/2025 10:00 AM CDT) eGFR [...] was last reviewed 2021. Testing performed by: [address] [address] Blood 01/13/2025 10:0 0 AM CDT 01/13/2025 10:02 AM CDT us Ramy Aguilera MD LAB BLOOD ORDERABLES Final R esult [facility] [address] [facility] Department of Laboratories [place], [place] [id number] * (ABNORMAL) Differential, auto (01/13/2025 10:00 AM CDT) Neutrophil abs 1.44(L) 1.50 - 6.50 K/cumm Comment:Testing performed by : [address] [address] Imm gran abs 0.03 0.00 - 0.10 K/cumm JOSELYN Comment:Testing performed by : [address] [address] Lymphocyte abs 17.55(H) 0.80 - 3.30 K/cumm JOSELYN Comment:Testing performed by : [address] [address] Monocyte abs 0.33 0.20 - 0.80 K/cumm JOSELYN Comment:Testing performed by : [address] [address] Eosinophil abs 0.04 0.00 - 0.50 K/cumm JOSELYN Comment:Testing performed by : [address] [address] Basophil abs 0.10 0.00 - 0.10 K/cumm JOSELYN Comment:Testing performed by : [address] [address] Neutrophil pct 7.4 % [facility] Comment: Interpretive Data Percent cell count reference ranges are not reported, since discordance with absolute values may lead to misinterpretation of CBC data. Current Interpretive Data was last revised on 2017. Testing performed by: [address] [address] Imm gran pct 0.2 % [facility] Comment: Interpretive Data Percent cell count reference ranges are not reported, since discordance with absolute values may lead to misinterpretation of CBC data. Current Interpretive Data was last revised on 2017. Testing performed by: [address] [address] Lymphocyte pct 90.0 % [facility] Comment: Interpretive Data Percent cell count reference ranges are not reported, since discordance with absolute values may lead to misinterpretation of CBC data. Current Interpretive Data was last revised on 2017. Testing performed by: [address] [address] Monocyte pct 1.7 % [facility] Comment: Interpretive Data Percent cell count reference ranges are not reported, since discordance with absolute values may lead to misinterpretation of CBC data. Current Interpretive Data was last revised on 2017. Testing performed by: [address] [address] Eosinophil pct 0.2 % [facility] Comment: Interpretive Data Percent cell count reference ranges are not reported, since discordance with absolute values may lead to misinterpretation of CBC data. Current Interpretive Data was last revised on 2017. Testing performed by: [address] [address] Basophil pct 0.5 % [facility] Comment: Interpretive Data Percent cell count reference ranges are not reported, since discordance with absolute values may lead to misinterpretation of CBC data. Current Interpretive Data was last revised on 2017. Testing performed by: [address] [address] Blood 01/13/2025 10:0 0 AM CDT 01/13/2025 10:02 AM CDT us Ramy Aguilera MD LAB BLOOD ORDERABLES Final R esult JOSELYN [address] [facility] Department [place] [address] * (ABNORMAL) CBC with auto differential (01/13/2025 10:00 AM CDT) WBC 19.49(H) 3.80 - 9.90 K/cumm Comment:Testing performed by : [address] [address] Hgb 8.1(L) 11.9 - 15.5 g/dL JOSELYN Comment:Testing performed by : [address] [address] Hct 25.4(L) 35.6 - 45.5 % JOSELYN Comment:Testing performed by : [address] [address] Plt 108(L) 150 - 400 K/cumm JOSELYN Comment:Testing performed by : [address] [address] MPV 8.8(L) 9.1 - 12.3 fL JOSELYN Comment:Testing performed by : [address] [address] RBC 2.77(L) 3.90 - 5.20 M/cumm JOSELYN Comment:Testing performed by : [address] [address] MCV 91.7 81.3 - 96.4 fL JOSELYN Comment:Testing performed by : [address] [address] MCH 29.2 27.1 - 33.3 pg JOSELYN Comment:Testing performed by : [address] [address] MCHC 31.9(L) 32.3 - 35.7 g/dL JOSELYN Comment:Testing performed by : [address] [address] RDW CV 17.9(H) 11.1 - 14.9 % JOSELYN Comment:Testing performed by : [address] [address] RDW SD 59.7(H) 35.7 - 48.1 fL JOSELYN Comment:Testing performed by : [address] [address] NRBC abs 0.02(H) 0.00 - 0.01 K/cumm JOSELYN Comment:Testing performed by : [address] [address] ANC Prelim 1.44(L) 1.50 - 6.50 K/cumm JOSELYN Comment: Interpretive Data The rapid ANC is a preliminary automated count and may vary from the final ANC (Neut Abs) reported in the WBC differential that follows. Current interpretive data was last revised 2024. Testing performed by: [address] [address] Blood 01/13/2025 10:0 0 AM CDT 01/13/2025 10:02 AM CDT Ramy Aguilera MD LAB BLOOD ORDERABLES Edited Result - Final [facility] [address] [facility] Department [place] [address] * hCG, blood, quantitative (01/13/2025 10:00 AM [...] last revised on 2023 Testing performed by: [address] [address] Blood 01/13/2025 10:0 0 AM CDT 01/13/2025 10:18 AM CDT us Ramy Aguilera MD LAB BLOOD ORDERABLES Final R esult JOSELYN [address] [facility] Department [place] [address] * (ABNORMAL) Comprehensive metabolic panel (01/13/2025 10:00 AM CDT) Sodium 138 135 - 145 mmol/L Comment:Testing performed by : [address] [address] Potassium, pl 3.2(L) 3.3 - 4.9 mmol/L JOSELYN Comment:Testing performed by : [address] [address] Chloride 98 97 - 110 mmol/L JOSELYN Comment:Testing performed by : [address] [address] CO2 26 22 - 32 mmol/L JOSELYN Comment:Testing performed by : [address] [address] Anion gap 14 2 - 15 mmol/L JOSELYN Comment:Testing performed by : [address] [address] BUN 6 6 - 25 mg/dL JOSELYN Comment:Testing performed by : [address] [address] Creatinine 0.70 0.60 - 1.10 mg/dL JOSELYN Comment:Testing performed by : [address] [address] Glucose 131 70 - 199 mg/dL JOSELYN [...] was last revised 2022. Testing performed by: [address] [address] Calcium 9.0 8.5 - 10.3 mg/dL JOSELYN Comment:Testing performed by : [address] [address] Bilirubin, total 0.5 0.1 - 1.2 mg/dL JOSELYN Comment:Testing performed by : [address] [address] Protein, pl 5.8(L) 6.5 - 8.5 g/dL JOSELYN Comment:Testing performed by : [address] [address] Albumin 3.8 3.5 - 5.0 g/dL JOSELYN Comment:Testing performed by : [address] [address] Alk phos 238(H) 40 - 130 Units/L JOSELYN Comment:Testing performed by : [address] [address] ALT 17 7 - 45 Units/L JOSELYN Comment:Testing performed by : [address] [address] AST 30 10 - 45 Units/L JOSELYN Comment:Testing performed by : [address] [address] Blood 01/13/2025 10:0 0 AM CDT 01/13/2025 10:02 AM CDT us Ramy Aguilera MD LAB BLOOD ORDERABLES Final R esult JOSELYN [address] [facility] Department [place] [address] * (ABNORMAL) Blood smear review (12/23/2024 9:47 AM CDT) RBC morphology Consistent with RBC Indicies Comment:Testing performed by : [address] [address] Anisocytosis Slight(A) JOSELYN VAZQUEZ Comment:Testing performed by : [facility], [address] [place] [address]., [address] Platelet estimate Adequate JOSELYN VAZQUEZ Comment:Testing performed by : [facility], [address] [place] [address]., [address] Blood 12/23/2024 9:47 AM CDT 12/23/2024 9:48 AM CDT us Ramy Aguilera MD LAB BLOOD ORDERABLES Final R esult Performing Organization Address City/[facility] Co de Phone Number JOSELYN [address] [facility] Department [place] [address] * eGFR (12/23/2024 9:47 AM [...] last reviewed 2021. Testing performed by: [facility], [address] [place] [address]., [address] Blood 12/23/2024 9:47 AM CDT 12/23/2024 9:48 AM CDT us Ramy Aguilera MD LAB BLOOD ORDERABLES Final R esult JOSELYN [address] [facility] Department [place] [address] * (ABNORMAL) Differential, auto (12/23/2024 9:47 AM CDT) Neutrophil abs 2.06 1.50 - 6.50 K/cumm Comment:Testing performed by : [address] [address] Imm gran abs 0.08 0.00 - 0.10 K/cumm JOSELYN Comment:Testing performed by : [address], [place]., [address] Lymphocyte abs 21.14(H) 0.80 - 3.30 K/cumm JOSELYN Comment:Testing performed by : [address], [place]., [address] Monocyte abs 0.37 0.20 - 0.80 K/cumm JOSELYN Comment:Testing performed by : [address] [address] Eosinophil abs 0.10 0.00 - 0.50 K/cumm JOSELYN Comment:Testing performed by : [address] [address] Basophil abs 0.09 0.00 - 0.10 K/cumm JOSELYN Comment:Testing performed by : [address] [address] Neutrophil pct 8.6 % JOSELYN Comment: Interpretive Data Percent cell count reference ranges are not reported, since discordance with absolute values may lead to misinterpretation of CBC data. Current Interpretive Data was last revised on 2017. Testing performed by: [address] [address] Imm gran pct 0.3 % JOSELYN Comment: Interpretive Data Percent cell count reference ranges are not reported, since discordance with absolute values may lead to misinterpretation of CBC data. Current Interpretive Data was last revised on 2017. Testing performed by: [address] [address] Lymphocyte pct 88.7 % JOSELYN Comment: Interpretive Data Percent cell count reference ranges are not reported, since discordance with absolute values may lead to misinterpretation of CBC data. Current Interpretive Data was last revised on 2017. Testing performed by: [address] [address] Monocyte pct 1.6 % JOSELYN Comment: Interpretive Data Percent cell count reference ranges are not reported, since discordance with absolute values may lead to misinterpretation of CBC data. Current Interpretive Data was last revised on 2017. Testing performed by: [address] [address] Eosinophil pct 0.4 % JOSELYN Comment: Interpretive Data Percent cell count reference ranges are not reported, since discordance with absolute values may lead to misinterpretation of CBC data. Current Interpretive Data was last revised on 2017. Testing performed by: [address] [address] Basophil pct 0.4 % JOSELYN Comment: Interpretive Data Percent cell count reference ranges are not reported, since discordance with absolute values may lead to misinterpretation of CBC data. Current Interpretive Data was last revised on 2017. Testing performed by: [address] [address] Blood 12/23/2024 9:47 AM CDT 12/23/2024 9:48 AM CDT us Ramy Aguilera MD LAB BLOOD ORDERABLES Final R esult [facility] [address] [facility] Department [place] [address] * (ABNORMAL) CBC with auto differential (12/23/2024 9:47 AM CDT) WBC 23.84(H) 3.80 - 9.90 K/cumm Comment:Testing performed by : [address] [address] Hgb 9.0(L) 11.9 - 15.5 g/dL JOSELYN VAZQUEZ Comment:Testing performed by : [address] [address] Hct 27.5(L) 35.6 - 45.5 % JOSELYN Comment:Testing performed by : [address] [address] Plt 111(L) 150 - 400 K/cumm JOSELYN Comment:Testing performed by : [address] [address] MPV 9.1 9.1 - 12.3 fL JOSELYN Comment:Testing performed by : [address], [address] RBC 3.02(L) 3.90 - 5.20 M/cumm JOSELYN Comment:Testing performed by : [address], [address] MCV 91.1 81.3 - 96.4 fL JOSELYN Comment:Testing performed by : [address], [address] MCH 29.8 27.1 - 33.3 pg JOSELYN Comment:Testing performed by : [address], [address] MCHC 32.7 32.3 - 35.7 g/dL JOSELYN Comment:Testing performed by : [address], [address] RDW CV 17.8(H) 11.1 - 14.9 % JOSELYN Comment:Testing performed by : [address], [address] RDW SD 57.9(H) 35.7 - 48.1 fL JOSELYN Comment:Testing performed by : [address], [address] NRBC abs 0.07(H) 0.00 - 0.01 K/cumm JOSELYN Comment:Testing performed by : [address] [address] ANC Prelim 2.06 1.50 - 6.50 K/cumm JOSELYN Comment: Interpretive Data The rapid ANC is a preliminary automated count and may vary from the final ANC (Neut Abs) reported in the WBC differential that follows. Current interpretive data was last revised 2024. Testing performed by: [address] [address] Blood 12/23/2024 9:47 AM CDT 12/23/2024 9:48 AM CDT us Ramy Aguilera MD LAB BLOOD ORDERABLES Edited Result - Final Performing Organization Address City/[facility] Co de Phone Number JOSELYN [facility] [place] [address] * hCG, blood, quantitative (12/23/2024 9:47 AM [...] last revised on 2023 Testing performed by: [address] [address] Blood 12/23/2024 9:47 AM CDT 12/23/2024 10:07 AM CDT us Ramy Aguilera MD LAB BLOOD ORDERABLES Final R esult Performing Organization Address City/[facility] Co de Phone Number JOSELYN [address] [place] [address] * Uric acid (12/23/2024 9:47 AM CDT) Uric acid 6.3 2.5 - 7.0 mg/dL Comment:Testing performed by : [address] [address] Blood 12/23/2024 9:47 AM CDT 12/23/2024 1:11 PM CDT us Ramy Aguilera MD LAB BLOOD ORDERABLES Final R esult JOSELYN [address] [facility] Department [place] [address] * (ABNORMAL) Comprehensive metabolic panel (12/23/2024 9:47 AM CDT) Sodium 139 135 - 145 mmol/L Comment:Testing performed by : [address] [address] Potassium, pl 3.2(L) 3.3 - 4.9 mmol/L JOSELYN Comment:Testing performed by : [address] [address] Chloride 97 97 - 110 mmol/L JOSELYN Comment:Testing performed by : [address] [address] CO2 27 22 - 32 mmol/L JOSELYN Comment:Testing performed by : [address] [address] Anion gap 15 2 - 15 mmol/L JOSELYN Comment:Testing performed by : [address] [address] BUN 5(L) 6 - 25 mg/dL JOSELYN Comment:Testing performed by : [address] [address] Creatinine 0.70 0.60 - 1.10 mg/dL JOSELYN Comment:Testing performed by : [address] [address] Glucose 90 70 - 199 mg/dL JOSELYN [...] was last revised 2022. Testing performed by: [address] [address] Calcium 9.4 8.5 - 10.3 mg/dL JOSELYN Comment:Testing performed by : [address] [address] Bilirubin, total 0.6 0.1 - 1.2 mg/dL JOSELYN Comment:Testing performed by : [address] [address] Protein, pl 5.7(L) 6.5 - 8.5 g/dL JOSELYN Comment:Testing performed by : [address] [address] Albumin 3.6 3.5 - 5.0 g/dL JOSELYN Comment:Testing performed by : [address] [address] Alk phos 242(H) 40 - 130 Units/L JOSELYN Comment:Testing performed by : [address] [address] ALT 7 7 - 45 Units/L JOSELYN Comment:Testing performed by : [facility], [address] [place] [address]., [address] AST 30 10 - 45 Units/L [facility] Comment:Testing performed by : [address] [address] Blood 12/23/2024 9:47 AM CDT 12/23/2024 9:48 AM CDT us Ramy Aguilera MD LAB BLOOD ORDERABLES Final R esult JOSELYN [address] [facility] Department of Laboratories [place], [place] [id number] * PET/CT FDG Skull to Thigh (12/15/2024 [...] has increased in size and activity. A sales representative cash registers right axillary lymph node measuring 2.2 x [...] 6.2 previously. Bilateral inguinal hypermetabolic lymphadenopathy. The sales representative cash registers left inguinal lymph node measures 3.5 x [...] Fabiano Santana M.D. LB: CHAITANYA Report ID: [id number] Reading Location: [id number] Procedure Note Fabiano Santana MD - 12/15/2024 [...] 6.2 previously. Bilateral inguinal hypermetabolic lymphadenopathy. The sales representative cash registers left inguinal lymph node measures 3.5 x [...] Fabiano Santana M.D. LB: CHAITANYA Report ID: [id number] Reading Location: [place] [address] us Paige Giordano [employer] REPL[employer]ER IMG PET PROCEDURES Final Resu lt * POCT glucose (12/15/2024 8:33 AM CDT) [facility] Signature Glucose, POC 94 70 - 199 mg/dL Comment:Testing performed by : [facility], [address] [place] [address], [place]., [address] Blood 12/15/2024 8:33 AM CDT 12/15/2024 8:33 AM CDT Ramy Aguilera MD LAB POCT ORDERABLES - DEVICE Final Result JOSELYN [facility] Department [place] [address] * (ABNORMAL) Blood smear review (12/09/2024 9:12 AM CDT) RBC morphology Consistent with RBC Indicies Comment:Testing performed by : [address] [address] Platelet estimate Decreased(A) JOSELYN Comment:Testing performed by : [address] [address] Blood 12/09/2024 9:12 AM CDT 12/09/2024 9:14 AM CDT us Ramy Aguilera MD LAB BLOOD ORDERABLES Final R esult JOSELYN [facility] [place] [address] * eGFR (12/09/2024 9:12 AM CDT) eGFR [...] was last reviewed 2021. Testing performed by: [address] [address] Blood 12/09/2024 9:12 AM CDT 12/09/2024 9:14 AM CDT us Ramy Aguilera MD LAB BLOOD ORDERABLES Final R esult JOSELYN [address] [facility] Department [place] [address] * (ABNORMAL) Differential, auto (12/09/2024 9:12 AM CDT) Neutrophil abs 2.40 1.50 - 6.50 K/cumm Comment:Testing performed by : [address] [address] Imm gran abs 0.05 0.00 - 0.10 K/cumm JOSELYN Comment:Testing performed by : [address] [address] Lymphocyte abs 13.72(H) 0.80 - 3.30 K/cumm JOSELYN Comment:Testing performed by : [address] [address] Monocyte abs 0.28 0.20 - 0.80 K/cumm JOSELYN Comment:Testing performed by : [address] [address] Eosinophil abs 0.04 0.00 - 0.50 K/cumm JOSELYN Comment:Testing performed by : [address] [address] Basophil abs 0.06 0.00 - 0.10 K/cumm JOSELYN Comment:Testing performed by : [address] [address] Neutrophil pct 14.5 % JOSELYN Comment: Interpretive Data Percent cell count reference ranges are not reported, since discordance with absolute values may lead to misinterpretation of CBC data. Current Interpretive Data was last revised on 2017. Testing performed by: [address] [address] Imm gran pct 0.3 % JOSELYN Comment: Interpretive Data Percent cell count reference ranges are not reported, since discordance with absolute values may lead to misinterpretation of CBC data. Current Interpretive Data was last revised on 2017. Testing performed by: [address] [address] Lymphocyte pct 82.9 % [facility] Comment: Interpretive Data Percent cell count reference ranges are not reported, since discordance with absolute values may lead to misinterpretation of CBC data. Current Interpretive Data was last revised on 2017. Testing performed by: [address] [address] Monocyte pct 1.7 % [facility] Comment: Interpretive Data Percent cell count reference ranges are not reported, since discordance with absolute values may lead to misinterpretation of CBC data. Current Interpretive Data was last revised on 2017. Testing performed by: [address] [address] Eosinophil pct 0.2 % [facility] Comment: Interpretive Data Percent cell count reference ranges are not reported, since discordance with absolute values may lead to misinterpretation of CBC data. Current Interpretive Data was last revised on 2017. Testing performed by: [address] [address] Basophil pct 0.4 % [facility] Comment: Interpretive Data Percent cell count reference ranges are not reported, since discordance with absolute values may lead to misinterpretation of CBC data. Current Interpretive Data was last revised on 2017. Testing performed by: [address] [address] Blood 12/09/2024 9:12 AM CDT 12/09/2024 9:14 AM CDT us Ramy Aguilera MD LAB BLOOD ORDERABLES Final R esult JOSELYN [address] [facility] [place] [address] * (ABNORMAL) CBC with auto differential (12/09/2024 9:12 AM CDT) WBC 16.55(H) 3.80 - 9.90 K/cumm Comment:Testing performed by : [address] [place] [address] Hgb 8.8(L) 11.9 - 15.5 g/dL JOSELYN Comment:Testing performed by : [address] [address] Hct 26.9(L) 35.6 - 45.5 % [facility] Comment:Testing performed by : [address], [address] Plt 92(L) 150 - 400 K/cumm JOSELYN Comment:Testing performed by : [address], [address] MPV 9.4 9.1 - 12.3 fL [facility] Comment:Testing performed by : [address], [address] RBC 2.99(L) 3.90 - 5.20 M/cumm JOSELYN Comment:Testing performed by : [address], [address] MCV 90.0 81.3 - 96.4 fL JOSELYN Comment:Testing performed by : [address], [address] MCH 29.4 27.1 - 33.3 pg CERSUSAN Comment:Testing performed by : [address], [address] MCHC 32.7 32.3 - 35.7 g/dL JOSELYN Comment:Testing performed by : [address], [address] RDW CV 15.3(H) 11.1 - 14.9 % JOSELYN Comment:Testing performed by : [address], [address] RDW SD 48.4(H) 35.7 - 48.1 fL CERSUSAN Comment:Testing performed by : [address], [address] NRBC abs 0.00 0.00 - 0.01 K/cumm JOSELYN Comment:Testing performed by : [address], [address] ANC Prelim 2.40 1.50 - 6.50 K/cumm JOSELYN Comment: Interpretive Data The rapid ANC is a preliminary automated count and may vary from the final ANC (Neut Abs) reported in the WBC differential that follows. Current interpretive data was last revised 2024. Testing performed by: [address] [address] Blood 12/09/2024 9:12 AM CDT 12/09/2024 9:14 AM CDT Ramy Aguilera MD LAB BLOOD ORDERABLES Edited Result - Final Performing Organization Address [facility] de Phone Number [facility] [address] [facility] [place] [address] * hCG, blood, quantitative (12/09/2024 [...] last revised on 2023 Testing performed by: [address] [address] Blood 12/09/2024 9:12 AM CDT 12/09/2024 9:44 AM CDT Ramy Aguilera MD LAB BLOOD ORDERABLES Final R esult Performing Organization Address [facility] Co de Phone Number [facility] [address] [facility] [place] [address] * (ABNORMAL) Comprehensive metabolic panel (12/09/2024 9:12 AM CDT) Sodium 140 135 - 145 mmol/L Comment:Testing performed by : [address] [address] Potassium, pl 4.0 3.3 - 4.9 mmol/L JOSELYN VAZQUEZ Comment:Testing performed by : [address] [address] Chloride 102 97 - 110 mmol/L JOSELYN Comment:Testing performed by : [address], [place]., [address] CO2 27 22 - 32 mmol/L JOSELYN Comment:Testing performed by : [address], [place]., [address] Anion gap 11 2 - 15 mmol/L JOSELYN Comment:Testing performed by : [address], [place]., [address] BUN 5(L) 6 - 25 mg/dL [facility] Comment:Testing performed by : [address], [place]., [address] Creatinine 0.70 0.60 - 1.10 mg/dL [facility] Comment:Testing performed by : [address], [place]., [address] Glucose 96 70 - 199 mg/dL [facility] Comment: Interpretive Data Fasting glucose >/= 126 [...] was last revised 2022. Testing performed by: [address] [address] Calcium 9.2 8.5 - 10.3 mg/dL [facility] Comment:Testing performed by : [address] [address] Bilirubin, total 0.3 0.1 - 1.2 mg/dL JOSELYN Comment:Testing performed by : [address] [address] Protein, pl 5.6(L) 6.5 - 8.5 g/dL JOSELYN Comment:Testing performed by : [address] [address] Albumin 3.7 3.5 - 5.0 g/dL JOSELYN Comment:Testing performed by : [address] [address] Alk phos 192(H) 40 - 130 Units/L JOSELYN Comment:Testing performed by : [address] [address] ALT 13 7 - 45 Units/L JOSELYN Comment:Testing performed by : [address] [address] AST 20 10 - 45 Units/L JOSELYN Comment:Testing performed by : [address] [address] Blood 12/09/2024 9:12 AM CDT 12/09/2024 9:14 AM CDT us Ramy Aguilera MD LAB BLOOD ORDERABLES Final R esult JOSELYN [address] [facility] Department of Laboratories [place], [place] [id number] * (ABNORMAL) C. difficile testing Stool (11/18/2024 9:30 AM CDT) C. diff result Positive, DNA(A) Negative , DNA Comment:Testing performed by : [address] [address] C. diff interp Toxigenic Clostridioides (Clostridium) difficile detected. Analysis performed by detection of gene(s) encoding C. difficile toxin(s). The nucleic acid detection assay used is cleared by the [place] Food and Drug administration and its performance characteristics have been verified by the performing laboratory. JOSELYN Comment: NAP (O27) - presumptive negative Testing performed by: [address] [address] Stool 11/18/2024 9:30 AM CDT 11/18/2024 11:35 AM CDT Ramy Aguilera MD LAB MICROBIOLOGY - GENERAL O RDERABLES Final Result Performing Organization Address [facility] Co de Phone Number JOSELYN [address] [place] [address] * Cryptosporidium and Giardia antigen assay Stool (11/18/2024 9:30 AM CDT) Giardia Ag Negative Negative Comment:Testing performed by : [facility], [address] [place]., [address] Cryptosporidium Ag Negative Negative JOSELYN Comment: Interpretive data: Testing performed by the [facility] using an immunoassay that detects Cryptosporidium and Giardia antigens in stool specimens. If comprehensive examination for ova and parasites is required, please request Ova and Parasite Examination. Testing performed by: [facility], [address] [place]., [address] Stool 11/18/2024 9:30 AM CDT 11/18/2024 4:49 PM CDT Ramy Aguilera MD LAB MICROBIOLOGY - GENERAL O RDERABLES Final Result Performing Organization Address [facility] Co de Phone Number JOSELYN [address] [place] [address] * eGFR (11/18/2024 8:40 AM CDT) eGFR [...] was last reviewed 2021. Testing performed by: [address] [address] Blood 11/18/2024 8:40 AM CDT 11/18/2024 8:42 AM CDT us Ramy Aguilera MD LAB BLOOD ORDERABLES Final R esult [place] [id number] [facility] Department [place] [address] * (ABNORMAL) Differential, auto (11/18/2024 8:40 AM CDT) Neutrophil abs 3.60 1.50 - 6.50 K/cumm Comment:Testing performed by : [address] [address] Imm gran abs 0.05 0.00 - 0.10 K/cumm JOSELYN Comment:Testing performed by : [address] [address] Lymphocyte abs 13.41(H) 0.80 - 3.30 K/cumm JOSELYN Comment:Testing performed by : [address] [address] Monocyte abs 0.34 0.20 - 0.80 K/cumm JOSELYN Comment:Testing performed by : [address] [address] Eosinophil abs 0.03 0.00 - 0.50 K/cumm JOSELYN Comment:Testing performed by : [address] [address] Basophil abs 0.06 0.00 - 0.10 K/cumm JOSELYN Comment:Testing performed by : [address] [address] Neutrophil pct 20.6 % JOSELYN Comment: Interpretive Data Percent cell count reference ranges are not reported, since discordance with absolute values may lead to misinterpretation of CBC data. Current Interpretive Data was last revised on 2017. Testing performed by: [address] [address] Imm gran pct 0.3 % [facility] Comment: Interpretive Data Percent cell count reference ranges are not reported, since discordance with absolute values may lead to misinterpretation of CBC data. Current Interpretive Data was last revised on 2017. Testing performed by: [address] [address] Lymphocyte pct 76.7 % [facility] Comment: Interpretive Data Percent cell count reference ranges are not reported, since discordance with absolute values may lead to misinterpretation of CBC data. Current Interpretive Data was last revised on 2017. Testing performed by: [address] [address] Monocyte pct 1.9 % [facility] Comment: Interpretive Data Percent cell count reference ranges are not reported, since discordance with absolute values may lead to misinterpretation of CBC data. Current Interpretive Data was last revised on 2017. Testing performed by: [address] [address] Eosinophil pct 0.2 % [facility] Comment: Interpretive Data Percent cell count reference ranges are not reported, since discordance with absolute values may lead to misinterpretation of CBC data. Current Interpretive Data was last revised on 2017. Testing performed by: [address] [address] Basophil pct 0.3 % [facility] Comment: Interpretive Data Percent cell count reference ranges are not reported, since discordance with absolute values may lead to misinterpretation of CBC data. Current Interpretive Data was last revised on 2017. Testing performed by: [address] [address] Blood 11/18/2024 8:40 AM CDT 11/18/2024 8:42 AM CDT us Ramy Aguilera MD LAB BLOOD ORDERABLES Final R esult [facility] [address] [facility] [place] [address] * (ABNORMAL) CBC with auto differential (11/18/2024 8:40 AM CDT) [facility] WBC 17.49(H) 3.80 - 9.90 K/cumm Comment:Testing performed by : [address] [address] Hgb 9.8(L) 11.9 - 15.5 g/dL JOSELYN Comment:Testing performed by : [address], [address] Hct 29.7(L) 35.6 - 45.5 % JOSELYN Comment:Testing performed by : [address], [address] Plt 133(L) 150 - 400 K/cumm JOSELYN Comment:Testing performed by : [address], [address] MPV 10.0 9.1 - 12.3 fL JOSELYN Comment:Testing performed by : [address], [address] RBC 3.33(L) 3.90 - 5.20 M/cumm JOSELYN Comment:Testing performed by : [address] [address] MCV 89.2 81.3 - 96.4 fL JOSELYN Comment:Testing performed by : [address] [address] MCH 29.4 27.1 - 33.3 pg JOSELYN Comment:Testing performed by : [address], [address] MCHC 33.0 32.3 - 35.7 g/dL JOSELYN Comment:Testing performed by : [address], [address] RDW CV 13.8 11.1 - 14.9 % JOSELYN Comment:Testing performed by : [address], [address] RDW SD 44.3 35.7 - 48.1 fL JOSELYN Comment:Testing performed by : [address] [place] [address] NRBC abs 0.00 0.00 - 0.01 K/cumm JOSELYN Comment:Testing performed by : [address] [address] ANC Prelim 3.60 1.50 - 6.50 K/cumm JOSELYN Comment: Interpretive Data The rapid ANC is a preliminary automated count and may vary from the final ANC (Neut Abs) reported in the WBC differential that follows. Current interpretive data was last revised 2024. Testing performed by: [address] [address] Morphologic Screen Results confirmed by manual morphology review. JOSELYN Comment:Testing performed by : [address] [address] Blood 11/18/2024 8:40 AM CDT 11/18/2024 8:42 AM CDT us Ramy Aguilera MD LAB BLOOD ORDERABLES Edited Result - Final Performing Organization Address [facility] Co de Phone Number JOSELYN [address] [facility] Department [place] [address] * hCG, blood, quantitative (11/18/2024 8:40 AM CDT) [facility] hCG, quant <5.0 0.0 - 5.0 IUnits/L Comment: Interpretive Data Male: < 5 IU/L Non- premenopausal Female: <5 IU/L The Cosmo hCG Beta Quant assay procedure was used. Results from different manufacturers or methods may not be comparable. Serial testing should be performed using the same method. Interpretive Data was last revised on 2023 Testing performed by: [address] [address] Blood 11/18/2024 8:40 AM CDT 11/18/2024 8:58 AM CDT us Ramy Aguilera MD LAB BLOOD ORDERABLES Final R esult Performing Organization Address [facility] Co de Phone Number JOSELYN [address] [facility] [place] [address] * (ABNORMAL) Comprehensive metabolic panel (11/18/2024 8:40 AM CDT) Sodium 139 135 - 145 mmol/L Comment:Testing performed by : [address], [place]., [address] Potassium, pl 3.2(L) 3.3 - 4.9 mmol/L JOSELYN Comment:Testing performed by : [address], [place]., [address] Chloride 100 97 - 110 mmol/L JOSELYN Comment:Testing performed by : [address] [address] CO2 27 22 - 32 mmol/L JOSELYN Comment:Testing performed by : [address], [place]., [address] Anion gap 12 2 - 15 mmol/L JOSELYN Comment:Testing performed by : [address] [address] BUN 6 6 - 25 mg/dL JOSELYN Comment:Testing performed by : [address], [place]., [address] Creatinine 0.80 0.60 - 1.10 mg/dL JOSELYN Comment:Testing performed by : [address] [address] Glucose 106 70 - 199 mg/dL JOSELYN [...] was last revised 2022. Testing performed by: [address] [address] Calcium 9.0 8.5 - 10.3 mg/dL JOSELYN Comment:Testing performed by : [facility], [address] [place] [address]., [address] Bilirubin, total 0.4 0.1 - 1.2 mg/dL JOSELYN Comment:Testing performed by : [address] [address] Protein, pl 6.0(L) 6.5 - 8.5 g/dL JOSELYN Comment:Testing performed by : [address] [address] Albumin 3.8 3.5 - 5.0 g/dL JOSELYN Comment:Testing performed by : [address] [address] Alk phos 169(H) 40 - 130 Units/L JOSELYN Comment:Testing performed by : [address] [address] ALT 16 7 - 45 Units/L JOSELYN Comment:Testing performed by : [address] [address] AST 25 10 - 45 Units/L JOSELYN Comment:Testing performed by : [address] [address] Blood 11/18/2024 8:40 AM CDT 11/18/2024 8:42 AM CDT us Ramy Aguilera MD LAB BLOOD ORDERABLES Final R esult Performing Organization Address City/State/[facility] Co de Phone Number [facility] [address] [facility] [place] [address] from Last 3 Months Additional Health Concerns Infection Onset Date Last Indicated C. difficile 11/18/2024 11/18/[address] [place] [address] [place] [address] [facility] Advance Directives For more information, please contact: [phone] * Full Code (Latest Code Status on File) Date Activated Date Inactivated Comments 09/22/2024 9:00 PM 09/24/2024 10:30 PM * Full Code Date Activated Date Inactivated Comments 09/17/2024 2:33 PM 09/17/2024 11:31 PM Care Teams Mannequin Mold Maker Relationship Specialty Start Date End Date Satya Fernandez MD [address] [place] [address] PCP - General Internal Medicine 10/21/24 Ramy Aguilera MD [address] [place] [address] Medical Oncologist/Print 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 Internal Medicine 09/23/24
--- OUTSIDE RECORDS SUMMARY | 2025-02-16 21:21 | XMS_ITS ---
Author Organization [facility] Address [address] [place] [address] Phone Care Team Providers Care 911 Telecommunicator Name Role Phone Gabriel Salmeron MD Unavailable Brooks Sosa MD Unavailable Provider, None Primary Care Provider UnavailKervin Rubi MD Unavailable [phone] Active Problems Problem Noted Date Diagnosed Date [...]
--- OUTSIDE RECORDS SUMMARY | 2025-02-16 21:21 | XMS_ITS | Encounter Summary ---
Author Organization [facility] Address [facility] [place] [address] Care Team Providers Care Manufacturing Assistant Name Role Phone None, Provider Primary Care Provider Jen ble Encounter Details Date Type Department Care Team (Late st Contact Info) Description 01/27/2025 Results Follow-Up [facility] Care [address] [place], [place] [id number] Thalia Hall FNP [address] [place], [place] [id number] Pathology Social History Tobacco Use Types Packs/Day Years Used Date Smoking Tobacco: Every Day Cigarettes 1 13.9 Started: 2011 Passive Smoke Exposure: Current Alcohol Use Standard Drinks/Week Comments Yes 4 (1 standard drink = 0.6 oz pure alcohol) patient states she takes shots of fireball to help with pain when she gets desperate. 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
--- OUTSIDE RECORDS SUMMARY | 2025-02-16 21:21 | XMS_ITS ---
Author Organization [facility] Address [address] [place] [address] Phone Care Team Providers Care Dental Technician Name Role Phone Gabriel Salmeron MD Unavailable [phone] Brooks Sosa MD Unavailable [phone] Provider, None Primary Care Provider UnavailKervin Rubi MD Unavailable [phone] [facility] Status:Enrolled (Active) Start date:05/05/2024 Enrollment date:05/05/2024 Related social drivers of health:Social Connections, Tobacco Use, Depression, Stress, Physical Activity, Utilities Continued Care and Services Coordination
--- OUTSIDE RECORDS SUMMARY | 2025-02-16 21:21 | XMS_ITS ---
Author Organization [facility] [address] [facility] Address [address] [place] [address] Care Team Providers Care Boat Outfitting Supervisor Name Role Phone Ramy Aguilera MD Unavailable [phone] Satya Fernandez MD Primary Care Provider [phone] Active Problems Problem Noted Date Diagnosed Date [...] - Plan to discharge patient with outpatient [facility] follow-up on 09/30/24. Assessment & [...] Current Treatment and Therapy Plans CHOP (CVP) (Cyclophosphamide / VinCRIStine / PredniSONE / DOXORUBICIN ) 21 Day Cycles - NHL* Plan Start Date:10/04/2024 Plan Provider:Ramy Aguilera MD Linked Problems Follicular lymphoma, unspeci fied follicular lymphoma type, unspecified body region (HCC)Prevention of chemotherapy-induced neutropenia Treatment Medications Current Day (Day 1 , Cycle 4 - CHOP - Planned for 03/10/2025) Next Day (Day 1, Cycle 9 - Planned for 03/31/2025) cycloPHOSphamide (CYTOXAN)cycloPHOSphamide IVPB in 250 mL (vial 200 mg/mL)(J9073)dexAMETHasone (DECADRON)DOXOrubicin (ADRIAMYCIN)DOXOrubicin (ADRIAMYCIN) 2 mg/mLoBINUtuzumab (GAVYZA)oBINutuzumab (GAZYVA) IVPB 1,000 mg in 290 mLvinCRIStinevinCRIStine (ONCOVIN) IVPB in 50 mL cycloPHOSphamide (J9073) 1,080 mg in sodium chloride 0.9% 250 mL IVPBDOXOrubicin (ADRIAMYCIN) 2 mg/mL IV syringe 72.6 mg 36.3 mLvinCRIStine (ONCOVIN) 2 mg in sodium chloride 0.9% 50 mL IVPB cycloPHOSphamide (J9073) 1,080 mg in sodium chloride 0.9% 250 mL IVPBDOXOrubicin (ADRIAMYCIN) 2 mg/mL IV syringe 72.6 mg 36.3 mLvinCRIStine (ONCOVIN) 2 mg in sodium chloride [...]
--- OUTSIDE RECORDS SUMMARY | 2025-02-16 21:21 | XMS_ITS | Patient Health Record ---
Author Organization [facility] Address [address] [place] [address] Care Team Providers Care Audiovisual Tech Name Role Phone Rebecca Satya Primary Care Provider AbeRichard Unavailable [phone] Minerva Peacock Unavailable [phone] Allergies Allergen (clinical drug ingredient) Drug/Non Drug [...] neg BUP POS TCA neg FTY ne 12 Panel Urine Drug Screen Reviewed date:07/12/2024 [...] pos 12 Panel Urine Drug Screen Reviewed date:08/26/2024 04:14:22 PM Interpretation: Performing Lab: Notes/Report: THC pos JULISA neg MOP (OPI) neg AMP neg MET neg BAR neg BZO pos MDMA neg MTD neg OXY pos PCP neg BUP pos Reason For Referral Reason anxiety, shanna Diagnosis 1 Opioid use disorder (F11.99) Referral Organization [facility] Referring Provider First Name Minerva Referring Provider [...] perineum Diagnosis 1 Boil (L02.92) Referral Organization [facility] Referring Provider First Name Satya Referring Provider Last Name Rebecca Referring Provider Speciality Internal M edicine Referred Provider Specialty Surgery General Notes Beena Red RN 01/2025 02:12:27 PM >confirmed taking clients insurance referral faxed letter mailed Clinical Notes [facility], [address] [address], [facility], , fax [phone] Referral Priority Urgent Medications Medication SIG (Take, Route, Frequency, Duration) Notes Start Date End Date Status Buprenorphine HCl-Naloxone HCl 8-2 MG 1 film under the tongue and allow to dissolve Sublingual daily; Duration: 30 days 02/08/2025 Active clonazePAM 2 MG 1 tablet Orally every 8 hours; Duration: 15 days As needed SEVERE ANXIETY 02/08/2025 Active Sertraline HCl 100 MG 1 tablet Orally On ce a day; Duration: 30 days Active oxyCODONE HCl 10 MG 1 tablet as needed Orally every 4 hours; Duration: 15 days As needed severe pain 02/08/2025 Active oxyCODONE HCl 10 MG 1 tablet [...] W/U Status Risk Notes Problem Tobacco user (776409181) Nicotine dependence, unspecified, uncomplicated (F17.200) Active confirmed Problem Anxiety (51475231) Anxiety (F41.9) Active confirmed Problem Exacerbation of asthma (337471101) Asthma exacerbation (J45.901) Active confirmed Problem Mild intermittent asthma (815816030) Mild intermittent asthma without complication (J45.20) Active confirmed Problem Tobacco use (539028229) Tobacco use disorder (F17.200) Active confirmed Problem Lymphoma involves multiple lymph node regions (finding) (346679819) Lymphoma of lymph nodes of multiple regions, 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) Active confirmed Problem Opioid use disorder (2367868693) Opioid use disorder (F11.99) Active confirmed Vital Signs Heart Rate 86 /min 01/07/2025 Temperature 98.5 degrees Fahrenheit 01/07/2025 Respiratory Rate 16 /min 01/07/2025 Oximetry 95 % 01/07/2025 Blood pressure diastolic 64 mm Hg 01/07/2025 Height 62in in 01/07/2025 Blood pressure systolic 98 mm Hg 01/07/2025 Weight 114.4lbs lbs 01/07/2025 BMI 20.92 kg/m2 01/07/2025 Encounters Encounter Location Date Provider Diagnosis [address] [place] [address] 05/13/2024 Minerva Mcallistereliezer Patient underweight R63.6 ; Opioid use disorder F11.99 ; Non-tobacco user Z78.9 and Nutritional counseling Z71.[address] [address] [place] [address] 05/27/2024 Jenia Heericka Opioid use disorder F11.99 and Nicotine dependence, unspecified, uncomplicated F17.[address] [address] [place] [address] 07/08/2024 Jenia Heericka Opioid use disorder F11.99 and Nicotine dependence, unspecified, uncomplicated F17.200 [address] [address] [place] [address] 08/19/2024 Jenia Heavenila Opioid use disorder F11.99 and Tobacco use disorder F17.[address] [address] [place] [address] 10/01/2024 Satya Fernandez Opioid use disorder F11.99 ; Lymphoma of lymph nodes of multiple regions, unspecified lymphoma type C85.98 ; Tobacco use disorder F17.200 and Anxiety F41.[address] [place] [address] 10/12/2024 Satya Fernandez Opioid use disorder F11.99 ; Lymphoma of lymph nodes of multiple regions, unspecified lymphoma type C85.98 and Anxiety F41.[address] [place] [address] 11/11/2024 Satya Fernandez Lymphoma of lymph nodes of multiple regions, unspecified lymphoma type C85.98 ; Opioid use disorder F11.99 and Anxiety F41.[address] [place] [address] 12/10/2024 Satya Fernandez Opioid use disorder F11.99 ; Anxiety F41.9 and Diarrhea R19.[address] [place] [address] 01/07/2025 Satya Fernandez Opioid use disorder F11.99 ; Anxiety F41.9 ; Boil L02.92 and Lymphoma of lymph nodes of multiple regions, unspecified lymphoma type C85.98 [address] [address] [place] [address] 09/24/2024 Richard Fish [address] [address] [address] [place] [place] [address] 10/13/2024 Satya Fernandez [address] [place] [place] [address] 10/28/2024 [facility] [address] [place] [address] 11/03/2024 Satya Fernandez UTI symptoms R39.[address] [place] [address] 11/29/2024 Satya Fernandez Anxiety F41.9 [address] [address] [place] [address] 01/03/2025 Satya Fernandez [address] [place] [address] 01/04/2025 Satya Fernandez Anxiety F41.[address] [place] [address] 01/11/2025 Satyaovidio Fernandez Anxiety F41.[address] [place] [address] 01/12/2025 Satya Fernandez [address] [address] [address] [place] [place] [address] 09/27/2024 Richard Fish [address] [address] [place] [address] 10/11/2024 Satya Fernandez [facility] [address] [place] [address] 10/20/2024 Satya Fernandez Lymphoma of lymph nodes of multiple regions, unspecified lymphoma type C85.98 ; Anxiety F41.9 and Opioid use disorder F11.99 [facility] [address] [place] [address] 10/25/2024 Satya Fernandez [address] [address] [address] [facility] [place] [address] 10/25/2024 Satya Fernandez [address] [address] [place] [address] 10/25/2024 Satya Fernandez [address] [address] [place] [address] 10/25/2024 Satya Fernandez [address] [address] [place] [address] 10/25/2024 Satya Fernandez Lymphoma of lymph nodes of multiple regions, unspecified lymphoma type C85.98 ; Anxiety F41.9 and Opioid use disorder F11.99 [facility] [address] [place] [address] 10/26/2024 Satya Fernandez [facility] [place] [address] 10/26/2024 Satya Fernandez [facility] [address] [place] [address] 11/23/2024 Satya Fernandez Lymphoma of lymph nodes of multiple regions, unspecified lymphoma type C85.98 and Anxiety F41.9 [address] [address] [place] [address] 12/07/2024 Satya Fernandez [facility] [address] [place] [address] 12/07/2024 Satya Fernandez Lymphoma of lymph nodes of multiple regions, unspecified lymphoma type C85.98 [address] [address] [place] [address] 12/19/2024 Satyaovidio Fernandez Lymphoma of lymph nodes of multiple regions, unspecified lymphoma type C85.98 [facility] [address] [place] [address] 12/21/2024 Satya Fernandez [facility] [place] [address] 12/27/2024 Satyaovidio Fernandez Lymphoma of lymph nodes of multiple regions, unspecified lymphoma type C85.98 and Anxiety F41.9 [facility] [place] [address] 12/27/2024 Satya Fernandez [address] [address] 01/03/2025 Satyaovidio Fernandez Lymphoma of lymph nodes of multiple regions, unspecified lymphoma type C85.[address] [place] [address] 01/10/2025 Satya Fernandez [address] [address] 01/10/[address] [address] 01/10/2025 Satya Fernandez Opioid use disorder F11.99 and Anxiety F41.[address] [address] 01/11/2025 Satya Fernandez [address] [place] [address] 01/12/2025 Satya Fernandez [address] [place] [address] 01/12/2025 Satya Fernandez [address] [place] [address] 01/12/[address] [address] 01/24/2025 Satya Fernandez [address] [place] [address] 01/24/2025 Satya Fernandez [address] [address] 01/24/2025 Satya Fernandez [address] [address] 01/25/2025 Satya Fernandez [address] [address] 01/25/2025 Satya Fernandez [address] [address] 01/25/2025 Satya Fernandez Anxiety F41.[address] [address] 01/31/2025 Satya Fernandez Opioid use disorder F11.99 and Anxiety F41.[address] [address] 01/31/2025 Satya Fernandez [address] [address] 02/08/2025 Satya Fernandez [address] [address] 02/08/2025 Satya Fernandez [address] [address] 02/08/2025 Satya Fernandez Anxiety F41.[address] [address] 02/08/2025 Satya Fernandez Opioid use disorder F11.[address] [address] 02/08/2025 Satya Fernandez [address] [address] 02/08/2025 Satya Fernandez Assessments Encounter Date Diagnosis (ICD Code) Assessment Notes Treatment Notes Treatment Clinical Notes Section Notes 10/01/2024 Opioid use disorder (ICD-10 - F11.99) 11/03/2024 UTI symptoms (ICD-10 - R39.9) 10/20/2024 Lymphoma of lymph nodes of multiple regions, unspecified lymphoma type (ICD-10 - C85.98) 10/01/2024 Lymphoma of lymph nodes of multiple regions, unspecified lymphoma type (ICD-10 - C85.98) F/U WITH WASH U FOR TREATMENT 05/13/2024 Patient underweight (ICD-10 - R63.6) 05/13/2024 Opioid use disorder (ICD-10 - F11.99) 08/19/2024 Tobacco use disorder (ICD-10 - F17.200) 08/19/2024 Opioid use disorder (ICD-10 - F11.99) 11/23/2024 Lymphoma of lymph nodes of multiple regions, unspecified lymphoma type (ICD-10 - C85.98) 11/29/2024 Anxiety (ICD-10 - F41.9) 12/07/2024 Lymphoma of lymph nodes of multiple regions, unspecified lymphoma type (ICD-10 - C85.98) 12/10/2024 Anxiety (ICD-10 - F41.9) 12/10/2024 Opioid use disorder (ICD-10 - F11.99) 12/19/2024 Lymphoma of lymph nodes of multiple regions, unspecified lymphoma type (ICD-10 - C85.98) 01/03/2025 Lymphoma of lymph nodes of multiple regions, unspecified lymphoma type (ICD-10 - C85.98) 01/04/2025 Anxiety (ICD-10 - F41.9) 01/07/2025 Anxiety (ICD-10 - F41.9) SHE WILL INCREASE CLONAZEPAM TO 2 MG TID AND WILL INCREASE RX TO 2 MG TABS WHEN REFILL IS DUE. 01/31/2025 Opioid use disorder (ICD-10 - F11.99) 02/08/2025 Anxiety (ICD-10 - F41.9) 02/08/2025 Opioid use disorder (ICD-10 - F11.99) 01/11/2025 Anxiety (ICD-10 - F41.9) 01/07/2025 Opioid use disorder (ICD-10 - F11.99) 01/10/2025 Opioid use disorder (ICD-10 - F11.99) 07/08/2024 Opioid use disorder (ICD-10 - F11.99) 05/27/2024 Nicotine dependence, unspecified, uncomplicated (ICD-10 - F17.200) 05/27/2024 Opioid use disorder (ICD-10 - F11.99) 10/25/2024 Lymphoma of lymph nodes of multiple regions, unspecified lymphoma type (ICD-10 - C85.98) 01/25/2025 Anxiety (ICD-10 - F41.9) 12/27/2024 Lymphoma of lymph nodes of multiple regions, unspecified lymphoma type (ICD-10 - C85.98) 11/11/2024 Lymphoma of lymph nodes of multiple regions, unspecified lymphoma type (ICD-10 - C85.98) 11/11/2024 Opioid use disorder (ICD-10 - F11.99) 10/12/2024 Lymphoma of lymph nodes of multiple regions, unspecified lymphoma type (ICD-10 - C85.98) INCREASE OXYCODONE DUE TO UNCONTROLLED PAIN.2ND RX FOR OXYCODONE DUE TO SHORTAGE OF 10 MG TABS 10/12/2024 Opioid use disorder (ICD-10 - F11.99) Message left with pharmacy re: concomitant Suboxone and Oxycodone 10/12/2024 Anxiety (ICD-10 - F41.9) INCREASE CLONAZEPAM DUE TO UNCONTROLLED ANXIETY. DISCUSSED RISK OF RESPIRATORY DEPRESSION WITH OPIOIDS OR ALCOHOL. SHE UNDERSTANDS THE RISKS, INCLUDING . 11/11/2024 Anxiety (ICD-10 - F41.9) 12/27/2024 Anxiety (ICD-10 - F41.9) 07/08/2024 Nicotine dependence, unspecified, uncomplicated (ICD-10 - F17.200) 10/25/2024 Anxiety (ICD-10 - F41.9) 01/31/2025 Anxiety (ICD-10 - F41.9) 01/10/2025 Anxiety (ICD-10 - F41.9) 01/07/2025 Boil (ICD-10 - L02.92) 12/10/2024 Diarrhea (ICD-10 - R19.7) 05/13/2024 Non-tobacco user (ICD-10 - Z78.9) 10/01/2024 Tobacco use disorder (ICD-10 - F17.200) 10/20/2024 Anxiety (ICD-10 - F41.9) 11/23/2024 Anxiety (ICD-10 - F41.9) 10/20/2024 Opioid use disorder (ICD-10 - F11.99) 05/13/2024 Nutritional counseling (ICD-10 - Z71.3) 10/01/2024 Anxiety (ICD-10 - F41.9) 01/07/2025 Lymphoma of lymph nodes of multiple regions, unspecified lymphoma type (ICD-10 - C85.98) 10/25/2024 Opioid use disorder (ICD-10 - F11.99) 05/13/2024 Other Patient agrees to take medication [...] may self-administer their own oral medications per [place] Protocol. 07/08/2024 Other Patient agrees to take medication as prescribed. Discussed medication side effects, adverse effects, risks, benefits, as well as interactions. Encouraged non-use of opioids. Has naloxone. Recommended participation in recovery groups and/or counseling services. May contact office with questions or concerns. Patient may self-administer their own medications or may self-administer their own oral medications per [place] Protocol. 08/19/2024 Other Discussed medication side effects, adverse effects, risks, benefits, as well as interactions. Encouraged non-use of opioids. Has naloxone. Recommended participation in recovery groups and/or counseling services. May contact office with questions or concerns. Patient may self-administer their own medications or may self-administer their own oral medications per [place] Protocol. 11/03/2024 Other Learning About the Safe [...] Insured Coverage Start Date Coverage End Date [employer] [address] [place] [address] [id number] Soha Marrero Self - patient is the insured 2 [employer] [address] [place] [address] [id number] Soha Marrero Self - patient is the insured 4 Medical (General) History Medical History History ICD Code Bipolar 1 Disorder Alcohol Use Disorder Lymphoma Surgical History Surgery Date(Month/Year) Ectopic Open Chest Surgery Chemo Port 2022 Hospitalization History Reason Date(Month/Year) Clotilde huggins
--- OUTSIDE RECORDS SUMMARY | 2025-02-16 21:22 | XMS_ITS | Encounter Summary ---
Author Organization [facility] Address [address] [place] [address] Care Team Providers Care Shells Inspector Name Role Phone Unavailable Primary Care Provider Unavailabl e Encounter Details Date Type Department Care Team (Late st Contact Info) Description 12/18/2022 Lab Requisition [facility] - Pathology Lab [address] [place] [address] Ishan Escobedo MD [address] [facility] [address] [place] [address] Generalized enlarged lymph nodes Social History [...] AM CDT) Case Report Flow Cytometry Case: [id number] Authorizing Provider: Ishan Escobedo MD Collected: 12/18/2022 09:00 AM Ordering Location: [facility] Care Pathology Lab Received: 12/18/2022 03:11 PM Pathologist: Giovanni Chow MD Specimen: Axillary Lymph Node, RIGHT 12/18/2022 5:15 PM CDT [facility] Final Diagnosis Axillary lymph node, flow cytometry: - [place] light chain restricted CD10+ B-cell population detected (~99% of overall events) 12/18/2022 5:15 PM CDT [facility] at 1714 CDT Flow Cytometry Interpretation Viability: 87%. B-cells: monoclonal, kappa-restricted, expressing CD19, CD20, and CD10. T-cells: not increased, no immunophenotypic aberrancy. A cytospin prepared from the flow cytometry specimen has been reviewed for principal quality engineer purposes. 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 Histologic slides are pending for final subclassification. 12/18/2022 5:15 PM [facility] Flow Cytometry Results Differential Result Comment Flow Cell Count /uL 9,000 Total Viability % 87.0 Lymphocytes % 99 Dim CD45 Region % 0 Monocytes % 0 Granulocytes % 1 12/18/2022 5:15 PM [facility] Reason for test Generalized enlarged lymph nodes 785.6 12/18/2022 5:15 PM [facility] Client Specimen ID # [id number] 12/18/2022 5:15 PM [facility] Number of markers 16 were performed. A-2 Flow CD3 A-4 Flow CD10 A-6 Flow CD20 A-7 Flow CD23 A-12 Flow CD2 A-13 Flow CD4 A-16 Flow CD1a A-3 Flow CD5 A-5 Flow CD19 A-8 Flow CD34 A-9 Flow CD45 A-14 Flow CD7 A-15 Flow CD8 A-17 Flow CD30 A-10 [place]+CD19+ A-11 Lambda+CD19+ 12/18/2022 5:15 PM [facility] Pathologist Location at [facility] 12/18/2022 5:15 PM [facility] Disclaimer Test performed at [facility], [address] [place] [address], [address]. *The established laboratory minimum viability is 70%. [...] Result [facility] [address] [phone] documented in this encounter Visit Diagnoses Diagnosis Generalized enlarged lymph nodes Enlargement of lymph nodes documented in this encounter
--- OUTSIDE RECORDS SUMMARY | 2025-02-16 21:22 | XMS_ITS | Clinical Summary ---
Author Organization [facility] Address [address] [place] [address] Care Team Providers Care Nursing Specialist Name Role Phone None, Provider MD [...] Encounters Date Type Department Care Team Description 02/09/2025 5:04 PM SENIOR PHP DEVELOPER - 02/09/2025 7:39 PM SENIOR PHP DEVELOPER Emergency [facility] [place] [address] Rishi Cote MD Medical Screening Discharge Disposition: Home or Self Care (Routine Discharge) 02/09/2025 Travel 01/27/2025 Results Follow-Up [facility] [address] [place] [address] Thalia Hall, BELLA Pathology 01/24/2025 11:15 PM CDT - 01/25/2025 1:40 AM CDT Emergency [facility] [place] [address] Koko Johnson MD,PHD Mouth Sores Discharge Disposition: Home or Self Care (Routine Discharge) 01/24/2025 Travel from Last 3 Months Social History Tobacco Use Types Packs/Day Years Used Date Smoking Tobacco: Every Day Cigarettes 1 13.9 Started: 2011 Passive Smoke Exposure: Current Tobacco Cessation:Ready to Q uit: Not Asked; Counseling Given: Not Answered Alcohol Use Standard Drinks/Week Comments Yes 4 (1 standard drink = 0.6 oz pure alcohol) patient states she takes shots of fireball to help with pain when she gets desperate. Comments No Sex and Gender Information Value Date Recorded Sex Assigned at Female 02/09/2025 4:27 PM SENIOR PHP DEVELOPER Legal Sex Female 7:16 PM CDT Gender Identity Not on file Sexual Orientation Not on file Last Filed Vital Signs Vital Sign Reading Time Taken Comments Blood Pressure 109/64 02/09/2025 4:22 PM SENIOR PHP DEVELOPER Pulse 102 02/09/2025 4:22 PM SENIOR PHP DEVELOPER Temperature 37.6 C (99.7 F) 02/09/2025 4:22 PM SENIOR PHP DEVELOPER Respiratory Rate 20 02/09/2025 4:22 PM SENIOR PHP DEVELOPER Oxygen Saturation 99% 02/09/2025 4:22 PM SENIOR PHP DEVELOPER Inhaled Oxygen Concentration - - Weight 49.6 kg (109 lb 5.6 oz) 02/09/2025 4:22 P M SENIOR PHP DEVELOPER Height 160 cm (5' 3) 02/09/2025 4:22 PM SENIOR PHP DEVELOPER Body Mass Index 19.37 02/09/2025 4:22 PM SENIOR PHP DEVELOPER Plan of Treatment Health Maintenance Due Date Last Done Comments Annual Physical 02/21/1995 Hepatitis C 02/21/2010 Hepatitis B Vaccines (1 of 3 - 19+ 3-dose series) 02/21/2011 Pneumococcal Vaccine: Pediatrics (0 to 5 Years) and At-Risk Patients (6 to 49 Years) (1 of 2 - PCV) 02/21/2011 HPV Vaccines (1 - 3-dose SCD M series) 02/21/2019 COVID-19 Vaccine (2024-2 6 season) 2024 11/27/2020, 11/06/2020 Influenza Adult [...] Procedure Name Priority Date/Time Associated Diagnosis Comments LACTIC ACID W REFLEX (SEPSIS) STAT 02/09/2025 5:42 PM SENIOR PHP DEVELOPER BASIC METABOLIC PANEL STAT 02/09/2025 5:42 PM SENIOR PHP DEVELOPER CBC W/DIFF AUTOMATED STAT 02/09/2025 5:42 PM SENIOR PHP DEVELOPER PATHOLOGY Routine 01/25/2025 12:00 AM CDT FLOW CYTOMETRY (LEUKEMIA/LYMPHOMA PANEL) Routine 01/24/2025 11:29 PM CDT HC HCG QL STAT 01/24/2025 11:29 PM CDT HC COMPREHENSIVE METABOLIC PANEL STAT 01/24/2025 11:29 PM CDT HC CBC AUTO W/AUTO DIFF STAT 01/24/2025 11:29 PM CDT from Last 3 Months Results * LACTIC ACID W REFLEX (SEPSIS) (02/09/2025 5:42 PM SENIOR PHP DEVELOPER) LACTIC ACID VENOUS 1.0 0.4 - 2.0 MMOL/L 02/09/2025 6:19 PM SENIOR PHP DEVELOPER [facility] 02/09/2025 5:42 PM SENIOR PHP DEVELOPER Ronit Haque ENRICHMENT DIRECTOR LABORATORY Final Resul t [facility] [address] [place] [address], [place] [phone] * BASIC METABOLIC PANEL (02/09/2025 5:42 PM SENIOR PHP DEVELOPER) GLUCOSE 86 70 - 99 MG/DL 02/09/2025 6:19 PM SENIOR PHP DEVELOPER [facility] BUN 11 7 - 18 MG/DL 02/09/2025 6:19 PM [facility] CREATININE S/P/B 0.72 0.55 - 1.02 MG/DL 02/09/2025 6:19 PM [facility] SODIUM S/P/B 140 136 - 145 MMOL/L 02/09/2025 6:19 PM [facility] POTASSIUM S/P/B 3.6 3.5 - 5.1 MMOL/L 02/09/2025 6:19 PM [facility] CHLORIDE S/P/B 104 97 - 115 MMOL/L 02/09/2025 6:19 PM [facility] CO2 31.1 21 - 32 MMOL/L 02/09/2025 6:19 PM [facility] CALCIUM S/P/B 9.1 8.5 - 10.1 MG/DL 02/09/2025 6:19 PM [facility] ANION GAP 4.9 2 - 10 MMOL/L 02/09/2025 6:19 PM [facility] BUN CREATININE RATIO 15.3 6 - 26 02/09/2025 6:19 PM [facility] GFR ESTIMATE >90 >90 ML/MIN/1.7 3 M2 02/09/2025 6:19 PM [facility] Comment: NOTE: eGFR is not calculated for patients <18 years of age or gender unknown. This is an estimated GFR calculation using the new CKD EPI creatinine equation without race and so does not require a correction factor for race. This estimated GFR should not be used for calculating drug doses. 02/09/2025 5:42 PM SENIOR PHP DEVELOPER us Ronit Haque ENRICHMENT DIRECTOR LABORATORY Final Resul t [facility] [address] [place] [address], [place] [phone] * (ABNORMAL) CBC W/DIFF AUTOMATED (02/09/2025 5:42 PM SENIOR PHP DEVELOPER) Only the most recent of2 resultswithin the time period is included. WBC 17.24(H) 4.5 - 11.0 x10'3/uL 02/09/2025 5:57 PM SENIOR PHP DEVELOPER [facility] RBC 2.90(L) 4.20 - 5.40 x10'6/uL 02/09/2025 5:57 PM [facility] HGB 8.5(L) 12.0 - 16.0 G/DL 02/09/2025 5:57 PM [facility] HCT 27.1(L) 38.0 - 48.0 % 02/09/2025 5:57 PM SENIOR PHP DEVELOPER [facility] MCV 93.4 81.0 - 99.0 FL 02/09/2025 5:57 PM SENIOR PHP DEVELOPER [facility] MCH 29.3 27.0 - 31.0 PG 02/09/2025 5:57 PM [facility] MCHC 31.4(L) 32.0 - 36.0 G/DL 02/09/2025 5:57 PM [facility] RDW 17.9(H) 11.5 - 14.5 % 02/09/2025 5:57 PM SENIOR PHP DEVELOPER [facility] PLT 142 130 - 400 x10'3/uL 02/09/2025 5:57 PM [facility] MPV 9.9 9.3 - 12.2 FL 02/09/2025 5:57 PM [facility] DIFFERENTIAL TYPE MANUAL DIFFERENTIAL 02/09/2025 6:25 PM SENIOR PHP DEVELOPER [facility] SEG NEUTROPHILS 10 % 6:25 PM SENIOR PHP DEVELOPER [facility] LYMPHOCYTES 89 % 02/09/2025 6:25 PM SENIOR PHP DEVELOPER [facility] MYELOCYTES 1 % 02/09/2025 6:25 PM SENIOR PHP DEVELOPER [facility] ABS. NEUTROPHILS 1.72(L) 1.80 - 7.70 x10'3/uL 02/09/2025 6:25 PM SENIOR PHP DEVELOPER [facility] ABS. LYMPHOCYTES 15.34(H) 1.00 - 4.80 x10'3/uL 02/09/2025 6:25 PM SENIOR PHP DEVELOPER [facility] ABS. MYELOCYTES 0.17(H) 0.00 x10'3/uL 02/09/2025 6:25 PM SENIOR PHP DEVELOPER [facility] RBC MORPHOLOGY RBC MORPHOLOGY APPEARS NORMAL. SLIDE REVIEWED. 02/09/2025 6:25 PM SENIOR PHP DEVELOPER [facility] PLT EST. ADEQUATE 02/09/2025 6:25 PM [facility] 02/09/2025 5:42 PM SENIOR PHP DEVELOPER us Ronit Haque ENRICHMENT DIRECTOR LABORATORY Final Resul t [facility] [address] [place] [address], * Pathology (01/25/2025 12:00 AM CDT) PATHOLOGY [facility] Department of Laboratory Medicine [address] [place] [address] , extension [phone] Pathology Report Addendum Peripheral Smear Report Name: SOHA MARRERO Specimen #: [id number] Age: 11 1990 (Age: 34) Location: [facility] Sex: F Procedure Date: 01/25/2025 Hospital #: [id number] Date Received: 01/25/2025 Date Reported: Provider: KOKO JOHNSON MD PHD Source: Peripheral blood Clinical History: Mouth sores, follicular lymphoma FINAL DIAGNOSIS: Peripheral blood, smear review: -Circulating lymphoma cells with nuclear cleaves; see comment Diagnosis Comment: Circulating lymphoma cells with nuclear cleaves are identified in the peripheral blood. The morphologic findings are consistent with circulating follicular lymphoma cells. Per clinical notes, circulating lymphoma cells were previously described in the peripheral blood on 12/19/2022 and she is currently being followed at [facility] for follicular lymphoma. There is no morphologic evidence of large cell transformation in this sample. Flow cytometry is pending and results will be issued in an addendum. Electronically Signed Out LISY COTE MD INTERPRETATION: Peripheral Blood Comments: Review of the peripheral blood smear demonstrates a leukocytosis with circulating lymphoma cells. The lymphoma cells are small to medium with scant cytoplasm, coarse chromatin, and variably cleaved nuclei. Smudge cells are present. There is a normocytic anemia with anisocytosis, hypochromasia, and polychromasia. There is a thrombocytopenia with predominately unremarkable morphology. This case was interpreted and signed out at [facility], [address] [place] [address]. Addenda/Procedures Addendum Date Ordered: 01/29/2025 Status: Signed Out Date Complete: 01/29/2025 By: LISY CALLEJAS Date Reported: 01/29/2025 Addendum Diagnosis Peripheral blood, smear review: -Circulating follicular lymphoma cells; see comment Addendum Comment This addendum is created to report on the flow cytometry results performed on the peripheral blood. Flow cytometry ([id number]) demonstrates a kappa-restricted CD10 positive B-cell lymphoproliferative disorder with an immunophenotype compatible with the patient's history of follicular lymphoma. The overall morphologic/immunoph enotypic findings support circulating follicular lymphoma cells. This addendum was interpreted and signed out at [place] [id number]. [facility] 01/25/2025 01/25/2025 9:4 7 AM CDT Comment:Peripheral blood us Koko Johnson MD,PHD PATHOLOGY/CYTOLOGY ORDERAB LES Final Result [facility] [address] [place] [address], [phone] * Flow Cytometry (01/24/2025 11:29 PM CDT) FLOW CYTOMETRY RESULTS [facility] Department of Laboratory Medicine [address] [place] [address] , extension [phone] Pathology Report Flow Cytometry Report Name: SOHA MARRERO Specimen #: [id number] Age: 11 1990 (Age: 34) [place] [facility] Sex: F Procedure Date: 01/24/2025 [facility] #: [id number] Date Received: 01/25/2025 Date Reported: 01/29/2025 Provider: KOKO JOHNSON MD PHD Source: Peripheral blood (See report [id number]) FINAL DIAGNOSIS: Peripheral blood, smear review: -Savage-restricted CD10 positive B-cell lymphoproliferative disorder; see comment Diagnosis Comment: 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 Correlation with [id number] is recommended. Result: The sample is adequate with a viability of 98%. The B cells represent 77.8% of the lymphocytes, (89% of the total events analyzed) and coexpress CD19 dim, CD20 dim, CD10, and CD23 dim and are essentially negative for CD5 and CD200. Surface immunoglobulin light chains shows a Savage:Lambda ratio of >997.0 (99.7:<0.1). The T-cells represent 11% of lymphocytes (9.8% of total cellularity) with a CD4:CD8 ratio of 1.7. Tested: CD45, CD19, CD20, Surface Savage, Surface Lambda, CD5, CD10, CD38, CD34, CD14, CD117, CD4, CD8, CD3, CD7, CD56. This case was interpreted and signed out at [facility], [address] [place] [id number]. Electronically Signed Out LISY COTE MD This test was developed and its performance characteristics determined by [facility]. It has not been cleared or approved by the U.S. Food and Drug Administration. However, the use of Analyte Specific Reagents does not require FDA approval. [facility] 01/24/2025 11:2 9 PM CDT 01/25/2025 12:10 PM CDT Comment:Peripheral blood (Se e report [id number]) us Koko Johnson MD,PHD PATHOLOGY/CYTOLOGY ORDERAB LES Final Result [facility] [address] [place] [address], [phone] * COMPREHENSIVE METABOLIC PANEL (01/24/2025 11:29 PM CDT) GLUCOSE 88 70 - 99 MG/DL 01/25/2025 12:20 AM CDT [facility] BUN 17 7 - 18 MG/DL 01/25/2025 12:20 AM CDT [facility] CREATININE S/P/B 0.87 0.55 - 1.02 MG/DL 01/25/2025 12:20 AM CDT [facility] SODIUM S/P/B 138 136 - 145 MMOL/L 01/25/2025 12:20 AM CDT [facility] POTASSIUM S/P/B 4.1 3.5 - 5.1 MMOL/L 01/25/2025 12:20 AM CDT [facility] CHLORIDE S/P/B 101 97 - 115 MMOL/L 01/25/2025 12:20 AM CDT [facility] CO2 31.4 21 - 32 MMOL/L 01/25/2025 12:20 AM CDT [facility] CALCIUM S/P/B 9.1 8.5 - 10.1 MG/DL 01/25/2025 12:20 AM [facility] BILIRUBIN TOTAL S/P/B 0.4 0.2 - 1.2 MG/DL 01/25/2025 12:20 AM [facility] Comment: THIS ASSAY IS NOT RECOMMENDED FOR PATIENTS UNDERGOING TREATMENT WITH ELTROMBOPAG DUE TO THE POTENTIAL FOR FALSELY ELEVATED RESULTS. TOTAL PROTEIN S/P/B 6.4 6.4 - 8.2 G/DL 01/25/2025 12:20 AM [facility] ALBUMIN S/P/B 3.5 3.4 - 5.0 G/DL 01/25/2025 12:20 AM [facility] AST 22 15 - 37 U/L 01/25/2025 12:20 AM [facility] ALT 26 14 - 55 U/L 01/25/2025 12:20 AM [facility] ALKALINE PHOSPHATASE S/P/B 119 50 - 136 U/L 01/25/2025 12:20 AM [facility] ANION GAP 5.6 2 - 10 MMOL/L 01/25/2025 12:20 AM [facility] BUN CREATININE RATIO 19.5 6 - 26 01/25/2025 12:20 AM [facility] A/G RATIO 1.2 1.0 - 2.0 RATIO 01/25/2025 12:20 AM [facility] GFR ESTIMATE >90 >90 ML/MIN/1.7 3 M2 01/25/2025 12:20 AM [facility] Comment: NOTE: eGFR is not calculated for patients <18 years of age or gender unknown. This is an estimated GFR calculation using the new CKD EPI creatinine equation without race and so does not require a correction factor for race. This estimated GFR should not be used for calculating drug doses. 01/24/2025 11:2 9 PM CDT Koko Johnson MD,PHD LABORATORY Final Resu lt [facility] [address] [place] [address], [place] [phone] * Qualitative HCG (01/24/2025 11:29 PM CDT) PREG SCREEN-SERUM NEGATIVE 01/25/2025 12:11 AM CDT [facility] 01/24/2025 11:2 9 PM CDT Koko Johnson MD,PHD LABORATORY Final Resu lt Performing Organization Address City/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
--- OUTSIDE RECORDS SUMMARY | 2025-02-16 21:22 | XMS_ITS | Encounter Summary ---
Author Organization [facility] Address [address] [facility] [place] [address] Care Team Providers Care Adobe Layer Name Role Phone Unavailable Primary Care Provider Unavailabl e Encounter Details Date Type Department Care Team (Late st Contact Info) Description 12/19/2022 Lab Requisition [facility] - Pathology Lab [address] [place] [address] Ishan Escobedo MD [address] [id number] Illness, unspecified Social History Tobacco [...] CDT) Case Report Surgical Pathology Report Case: [id number] Authorizing Provider: Ishan Escobedo MD Collected: 12/18/2022 09:00 AM Ordering Location: [facility] Care Pathology Lab Received: 12/19/2022 01:25 PM [...] CD10 co-expression. Axillary lymph node, flow cytometry ([id number]): - [place] light chain restricted CD10+ B-cell population detected (~99% of overall events) Also received from [facility] is a peripheral smear showing circulating follicular lymphoma cells with occasional nuclear clefts. The peripheral blood is involved by follicular lymphoma. 12/19/2022 3:33 PM CDT [facility] PATH[facility]Y [facility] Clinical History Suspect lymphoma. 12/19/2022 3:33 PM [facility] PATH[facility]Y LAB Materials Received Received are 4 slide(s) and 1 block labeled [id number] along with a copy of the outside pathology report. The materials originate from [facility], [address] [place] [address]. All original materials are returned to the referring institution, along with a copy of our final report. 12/19/2022 3:33 PM T [facility] PATHOLOGY LAB Pathologist Location at [facility] 12/19/2022 3:33 PM T [facility] PATH[facility]Y [facility] Disclaimer The performance characteristics of all immunohistochemical and indirect immunofluorescence stains (if any) cited in this report were determined by the Histopathology Laboratory of [facility]. Some of these tests were developed by [...] attending (teaching) pathologist. 12/19/2022 3:33 PM T [facility] Embedded Images 12/19/2022 3:33 PM T [facility] Pathology/Cytolo gy BIOPSY OF LYMPH NODE / Unknown 12/18/2022 9:00 AM CDT 12/19/2022 1:25 PM CDT us Ishan Escobedo MD LAB - PATHOLOGY/CYTOLOGY ORDERAB LES Final Result [facility] [address] [facility] [phone] documented in this encounter Visit Diagnoses Diagnosis Illness, unspecified documented in this encounter
--- OUTSIDE RECORDS SUMMARY | 2025-02-16 21:22 | XMS_ITS | Encounter Summary ---
Author Organization [facility] Address [address] [place] [address] Care Team Providers Care Dairy Processing Equipment Operator Name Role Phone Unavailable Primary Care Provider Unavailabl e Encounter Details Date Type Department Care Team (Late st Contact Info) Description 02/15/2025 External Device Data [facility] ABSTRACTION Provider, Abstract NO ADDRESS ON FILE Social History Tobacco Use Types Packs/Day Years Used Date Smoking Tobacco: Every Day Cigarettes Smokeless Tobacco: Never Alcohol Use Standard Drinks/Week Comments Not Currently [...]
--- OUTSIDE RECORDS SUMMARY | 2025-02-16 21:22 | XMS_ITS | Data Portability ---
Author Organization [facility] Address [address] [place] [address] Assessment Encounter Date Assessment Date Assessment LastModified by Organization Details LastModified Time 07/29/2024 07/29/2024 Annual gynecological exam performed. Patient will come back in a year unless there are new symptoms. [email or web address] Not available 07/29/2024 11:38:03 Plan of Treatment Reminders Order Date Submit Date Provider Last Modified By Organization Details Last Modified Time Details Appointments None recorded. Lab hbcab (hepatitis B core Ab) igm, serum 2024 025 [facility] (Lab), [address] [place], [address], 5 11:25:14 HBsAg (hepatitis B surface Ag), serum 2024 025 [facility] (Lab), [address] [place], [address], 5 11:25:14 hepatitis C virus Ab, serum 2024 025 [facility] (Lab), [address] [place], [address], 5 11:25:13 HIV 1+2 AB + HIV 1 p24 Ag, qualitative immunoassay , serum 2024 025 [facility] (Lab), [address] [place], [address], 5 11:25:13 RPR (rapid plasma reagin), serum 2024 025 [facility] (Lab), [address], [place], [address], 5 11:25:14 pap, IG + HR HPV - HPV regardless but if HPV is positive need subtyping 16,18/45 add STI to pap GC/CT/Trich 2024 025 [facility] (Lab), [address], [place], [address], 5 13:59:16 culture, urine 2024 [facility] (Lab), [address], [place], [address], 5 13:59:18 Referral None recorded. Procedures None recorded. Surgeries None recorded. Imaging MAMMO, diagnostic, digital, bilateral 2024 [facility], [address], [place], [address], 05:01:54 US, breast, bilateral, complete 2024 [facility], [address], [place], [address], 05:01:53 Medication Orders None recorded. Patient TargetsNo targets [...] of expos ure to HCV. Not Available [facility] (Lab) [address], [place], [address], 07/30/2024 11:25:13 07/30/19 25 07/29/2024 HIV 1/2 ANTIG EN/AN TIBOD Y, REFLE X CONFI RMATI ON HIV antigen/anti body Nonrea ctive nonrea ctive HIV-1 antig en and HIV-1 /HIV- 2 antib odies were not detec gabriella. No labor atory evide nce of HIV infec tion. Not Available [facility] (Lab) [address], [place], [address], 07/30/2024 11:25:13 07/30/19 25 07/29/2024 HEPAT ITIS B SURFA CE ANTIG EN hepatitis B surface antigen Non-re active non-re active This assay was perfo rmed using [employer] ratio n reage nts and test kits. Value s obtai maxim with other assay metho ds or kits canno t be used inter caro eably . Not Available [facility] (Lab) [address], [place], [address], 07/30/2024 11:25:14 07/30/19 25 07/29/2024 RPR SCREE N, REFLE X TITER /CONF IRMAT ION RPR qualitative Nonrea ctive nonrea ctive Not Available [facility] (Lab) [address], [place], [address], 07/30/2024 11:25:14 07/30/19 25 07/29/2024 HEPAT ITIS B CORE, IGM hepatitis B core IgM antibody Non-re active non-re active IgM anti- HBc not detec gabriella. Does not exclu de the possi bilit y of expos ure to or infec tion with HBV. Test Perfo rmed by: Adrian daniels rn, [facility] [address] [place] [address] Not Available [facility] (Lab) [address], [place], [address], 07/30/2024 11:25:14 07/30/19 25 07/29/2024 IMAGE GUIDE [...] epith elial Naty muñiz or Rinku jain ([facility]) . Elect apple velazquez d by [...] NOTE: The Pap Test is a scree ayd test with an inher ent false negat [...] as clini nati zamarripa nted. Not Available [facility] (Lab) [address], [place], [address], 08/03/2024 13:59:16 07/30/19 25 07/29/2024 TRICH OMONA S VAGIN CHALO (RRNA ) trichomonas vaginalis ribosomal RNA (rrna) Negati ve negati ve Not Available [facility] (Lab) [address] [place], [address], 08/03/2024 13:59:17 07/30/19 25 07/29/2024 CT/GC (FAREED) , THINP REP VIAL chlamydia trachomatis, PCR Negati ve negati ve Not Available [facility] (Lab) [address], [place], [address], 08/03/2024 13:59:17 07/30/19 25 07/29/2024 CT/GC (FAREED) , THINP REP VIAL neisseria gonorrhoeae, PCR Negati ve negati ve Not Available [facility] (Lab) [address], [place], [address], 08/03/2024 13:59:17 07/30/19 25 07/29/2024 CULTU RE: URINE result report SEE RESULT S BELOW abnormal Test: Cultu re: Urine Speci men Sourc e: Urine - Clean Catch Speci men Type: Urine Speci men Date: 2024 1446 Resul t Date: 2024 0713 Resul t Statu s: Final resul t Ramakrishnaor mal: Yes Jacoby garcia Lab: [facility] [address] [facility] [address] Tel: CULTU RE ----- ----- ----- --- [...] <=0.5 ug/mL Susce ptibl e Not Available [facility] (Lab) [address], [place], [address], 08/03/2024 13:59:18 Result Notes None recorded. Procedures Surgical History Date Name Laterality Status Provider Name and Address Organization Details Recorded Time 11/06/19 22 chemotherapy completed [facility] 07/29/2024 12:08:18 05/08/19 15 medical termination of completed [facility] 07/29/2024 12:07:34 05/08/19 14 incision and drainage of breast abscess completed [facility] 07/29/2024 12:07:14 Imaging Results None recorded. Procedure Notes None recorded. Medical Equipment None Reported. Allergies Allergen ID Allergen Name Allergen Category Reaction Reaction Severity Criticality Documentation Date Start Date Code Code System Note Provider Name and Address Organization Details Recorded Time 94779 pecan nut food Not available Not available Not available 07/29/2024 [facility] 11:57:32 28418 Benadryl medicatio n Not available Not available Not available 07/29/202406787 7 RxNorm [facility] 11:57:43 09921 azithromy louis medicatio n Not available Not available Not available 07/29/2024 21071 RxNorm [facility] 11:58:11 Medications Name Sig Start [...] Updated DateTime 07/29/2024 157.48 cm 21.8 kg/m2 82854.49 g 119/81 mm[Hg] Lety Khan [facility] 07/29/2024 11:56:58 Social History Question Answer Notes LastModified by Organizat ion Details LastModified Time Do You Have An Advance Directive? No [email or web address] Information n ot available 07/29/2024 Are You Blind Or Do You Have Difficulty Seeing? No [email or web address] Information n ot available 07/29/2024 What Is Your Level Of Caffeine Consumption? Occasional [email or web address] Information not available 07/29/2024 How Much Tobacco Do You Chew? None Information not available 07/29/2024 In The 14 Days Before Symptom Onset, Have You Had Close Contact With A Laboratory-confirm ed COVID-19 While That Case Was Ill? No [email or web address] Information n ot available 07/29/2024 In The 14 Days Before Symptom Onset, Have You Had Close Contact With A Person Who Is Under Investigation For COVID-19 While That Person Was Ill? No [email or web address] Information not available 07/29/2024 Have You Been To An Area Known To Be High Risk For COVID-19? No Information not available 07/29/2024 Are You Deaf Or Do You Have Serious Difficulty Hearing? No Information not available 07/29/2024 What Type Of Diet Are You Following? REGULAR [email or web address] Information n ot available 07/29/2024 What Is The Highest Grade Or Level Of School You Have Completed Or The Highest Degree You Have Received? BR08233-2 [email or web address] Information not available 07/29/2024 Are There Any Guns Present In Your Home? No Information not available 07/29/2024 Do You Use Protection During Sex? No [email or web address] Information not available 07/29/2024 Do You Use Your Seat Belt Or Car Seat Routinely? No [email or web address] Information not available 07/29/2024 Do You Have Smoke And Carbon Monoxide Detectors In Your Home? Yes [email or web address] Information not available 07/29/2024 At What Age Did You Start Smoking Tobacco? 21 [email or web address] Information not available 07/29/2024 How Much Tobacco [...] is your level of alcohol consumption? Occasional [email or web address] Information not available 07/29/2024 Are you able [...] anxious, or unable to sleep at night)? [id number] Information not available 07/29/2024 Family History Nothing [...] ICD10 Code Diagnosis IMO Codes Diagnosis Note [id number] ANIA Reeves Dalton [address] [address] 07/29/2024 11:33:28 07/30/2024 10:26:56 Gynecologic examination 17115767 Z01.408 3830221 WWEBC - declinedPa p - done todaySTI [...] advised. Questions answered. Venereal d isease screening 974864542 Z11.3 98485 Sexually t ransmitted infectious disease 4681715 A64 Breast lump 36419846 N63 .0 4288298002 order given for bilateral diagnostic mammogram and u/s Health Concerns Section Related Observation LastModified by Organization Detai ls LastModified Time None Recorded Concern Status LastModified by Organization Details LastModified Time None Recorded Advance Directives Directive N: Payers Insurance Date Sequence Insurance Name Policy Number Policy Woods Covered Member ID Woods Member ID Guarantor Name 08/02/2024 1 [facility] (MEDICAID HMO) [id number] Soha Marrero [id number] Soha Marrero Notes Date Note Type Note [...] since 2023 ANIA Reeves [address], [place], [address], [place] [facility] 07/30/2024 09:32:49 OBGyn Episode Ob Episode Information Episode Created Date Number of Fetuses Patient Bloodtype Patient rh Status Prepregnancy Weight lbs Domestic Partner Domestic Partner Phone Father Name Water Fabricator Operator Status 07/30/19 1 CLOSED Fetus Data First Name Last Name Admitted to NICU Weight (g) Sex Living Outcome Pediatric Complications Fetus ID Race Codes Race Delivery Type , Induced 13056 Fly Calculation Initial Fly Date Initial Exam [...] Domestic Partner Domestic Partner Phone Father Name Water Fabricator Operator Status 07/30/19 1 CLOSED Fetus Data First Name Last Name Admitted to NICU Weight (g) Sex Living Outcome Pediatric Complications Fetus ID Race Codes Race Delivery Type , Spontane ous 18490 Fly Calculation Initial Fly Date Initial Exam [...] Domestic Partner Domestic Partner Phone Father Name Water Fabricator Operator Status 07/30/19 25 1 CLOSED Fetus Data First Name Last Name Admitted to NICU Weight (g) Sex Living Outcome Pediatric Complications Fetus ID Race Codes Race Delivery Type F Prematur e 78295 Vaginal Delivery Fly Calculation Initial Fly Date [...]
--- OUTSIDE RECORDS SUMMARY | 2025-02-16 21:22 | XMS_ITS | Clinical Summary ---
Author Organization [facility] Address [address] [facility] [place] [address] Care Team Providers Care Blast Furnace Tender Name Role Phone Unavailable Primary Care Provider Unavailabl e Source Comments [facility],non-owned Affiliates and Associated Physician Practices is amultiple site organization consisting of ambulatory clinics and hospital sitesin [place] and [place]. This disclosure is being madepursuant to the Care Everywhere program and may not contain all information available regarding this patient. Last updated 17.[facility] Social History Tobacco Use Types Packs/Day Years [...] patient's age to complete this topic Insurance [facility]
--- OUTSIDE RECORDS SUMMARY | 2025-02-16 21:22 | XMS_ITS | Encounter Summary ---
Author Organization [facility] Address [address] [place] [address] Care Team Providers Care Work Counselor Name Role Phone Unavailable Primary Care Provider [...]
--- OUTSIDE RECORDS SUMMARY | 2025-02-16 21:23 | XMS_ITS | Data Portability ---
Author Organization [facility], Main Office Address [address] [place] [address] Assessment No assessment recorded. Plan of Treatment Reminders Order Date Submit Date Provider Last Modified By Organization Details Last Modified Time Details Appointments None recorded. Lab None recorded. Referral None recorded. Procedures None recorded. Surgeries None recorded. Imaging None recorded. Medication Orders Bactrim DS 800 mg-160 mg tablet [facility] [place], [address], 12:26:22 Patient TargetsNo targets recorded. Patient InstructionsNo instructions recorded. Reason for Referral None Reported. Problems Name Problem SNOMED Code Status Onset Date Resolution Date Notes Provider Name and Address Organization Details Recorded Time Abscess of buttock 39544111 Active Miki horan MD [address], [address] , [facility] 12:25:52 Abscess 502353990 Active Miki horan MD [address], [address] , [facility] 11:32:47 Problem Notes None recorded. Procedures Surgical History Date Name Laterality Status Provider Name and Address Organization Details Recorded Time other completed Evie Garnett MA [facility] 02/08/2025 08:46:26 other completed Evie Garnett MA [facility] 02/08/2025 08:46:48 other completed Evie Garnett MA [facility] 02/08/2025 08:47:04 other completed Evie Garnett MA [facility] 02/08/2025 12:10:34 Imaging Results None recorded. Procedure Notes None recorded. Medical Equipment None Reported. Allergies Allergen ID Allergen Name Allergen Category Reaction Reaction Severity Criticality Documentation Date Start Date Code Code System Note Provider Name and Address Organization Details Recorded Time 96910 Zithromax medicatio n Not available Not available Not available 02/08/2025 13660 4 [facility] 08:50:00 17291 codeine medicatio n Not available Not available Not available 02/08/2025 2670 RxNorm [facility] 08:50:09 Medications Name Sig Start Date Stop Date Status Note LastModified by Organization Details LastModified Time Bactrim DS 800 mg-160 mg tablet Take 1 tablet twice a day by oral route for 5 days. 025 active changed from Cipro Not Available Not Available Not Available Vitals Date Recorded Body height Body mass index (BMI) Body weight Body temperature Respiratory rate Provider Name and Address Organization Details Last Updated DateTime 02/08/2025 157.48 cm 21.9 kg/m2 46561.0 8 g 98.6 [degF] 15 /min Evie Garnett MA [facility] [employer] [facility] 12:16:57 Social History Question Answer Notes LastModified by Organizat ion Details LastModified Time Tobacco Smoking Status Current Every Day Smoker CHARISSE Freeman [facility] 02/08/2025 08:49:19 What Is Your Level Of Caffeine Consumption? Occasional Information not available 02/08/2025 Are There Any Guns Present In Your Home? No Information not available 02/08/2025 What Is Your Relationship Status? Single Information not available 02/08/2025 Do You Use Your Seat Belt Or Car Seat Routinely? Yes Information not available 02/08/2025 Do You Have Smoke And Carbon Monoxide Detectors In Your Home? Yes Information not available 02/08/2025 Do You Use Sunscreen Routinely? No Information not available 02/08/2025 Sex: Unknown Functional Status Question Answer Note LastModified by Organizat ion Details LastModified Time Do you use any illicit or recreational drugs? Yes cannabis [place] [address] Information not available 02/08/2025 What is your level of alcohol consumption? None [place] [address] Information not available 02/08/2025 Are you currently employed? No [place] [address] Information not available 02/08/2025 Mental Status None recorded. Family History Relationship Description Onset Age of this Age Resolved Age Notes LastModified by Organization Details LastModified Time Father No current problems or disability [place] [address] Not available 02/08 08:47:21 Mother No current problems or disability [place] [address] Not available 02/08 08:47:22 Medical History Condition Response OTHER # 1 DEPRESSION (INCLUDING POST ) CANCER: SPECIFY Y Gynecological HistoryNo gynecological history recorded. Obstetrics History GPAL:G 0 P 0 0 0 0 Past Encounters Encounter ID Performer Location Encounter Start Date Encounter Closed Date Diagnosis/Indication Diagnosis SNOMED-CT Code Diagnosis ICD10 Code Diagnosis IMO Codes Diagnosis Note [id number] Miki horan MD [facility] [address] [facility], [facility] [address] [place] [address] 02/08/2025 11:43:17 02/08/2025 15:50:28 Abscess of buttock 97701235 L02.31 1595120 Open wound of R buttock. Will rx bactrim and f/u PRN if wound does not resolve. Continue sitz baths. Abscess 685519804 L02.91 63421 Health Concerns Section Related Observation LastModified by Organization Detai ls LastModified Time None Recorded Concern Status LastModified by Organization Details LastModified Time None Recorded Advance Directives Directive None Recorded Payers Insurance Date Sequence Insurance Name Policy Number Policy Woods Covered Member ID Woods Member ID Guarantor Name 02/08/2025 1 [facility] (MEDICAID HMO) [id number] Soha Marrero [id number] Soha Marrero Notes Date Note Type Note Provider Name and Address Organization Details Recorded Time 02/08/2025 text/html William presents to clinic to discuss boil of the R buttock/groin. States she has had it lanced twice in the past year, now it seems to be just opened spontaneously and oozing a little. States it has been like this for about a week. 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 No changes in bowel habits. No changes in urination habits. No fevers at home. Miki Herr MD [address] [address], [place], [address], [place] - [facility] 02/09/2025 11:33:02 OBGyn Episode No OBEpisode recorded.
--- OUTSIDE RECORDS SUMMARY | 2025-02-16 21:23 | XMS_ITS | Clinical Summary ---
Author Organization [facility] Address [address] [place] [address] Care Team Providers Care Kosher Dietary Service Manager Name Role Phone Unavailable Primary Care [...] Pain, Mild. Active naloxone (NARCAN) 4 mg/spray [place], Non-Aerosol EMERGENCY USE ONLY: Administer 1 spray [...] Encounters Date Type Department Care Team Description 02/15/2025 External Device Data [facility] ABSTRACTION Provider, Abstract 02/15/2025 External Device Data [facility] ABSTRACTION Provider, Abstract 02/08/2025 External Device Data [facility] ABSTRACTION Provider, Abstract 02/02/2025 External Device Data [facility] ABSTRACTION Provider, Abstract 02/01/2025 External Device Data [facility] ABSTRACTION Provider, Abstract 01/04/2025 External Device Data [facility] ABSTRACTION Provider, [...] Comments Blood Pressure 109/66 04/17/2023 8:40 AM UPHOLSTERY TECHNICIAN Pulse 111 04/17/2023 8:40 AM UPHOLSTERY TECHNICIAN Temperature 36.6 C (97.9 F) 04/17/2023 8:40 AM UPHOLSTERY TECHNICIAN Respiratory Rate 10 04/17/2023 8:40 AM UPHOLSTERY TECHNICIAN Oxygen Saturation 92% 03/27/2023 11:06 AM UPHOLSTERY TECHNICIAN Inhaled Oxygen Concentration - - Weight 51.3 kg (113 lb) 04/17/2023 8:40 AM UPHOLSTERY TECHNICIAN Height 162.6 cm (5' 4) 03/24/2023 6:27 PM UPHOLSTERY TECHNICIAN Body Mass Index 19.4 03/24/2023 6:27 PM UPHOLSTERY TECHNICIAN Plan of Treatment Health Maintenance Due Date [...] Advance Directives For more information, please contact: [phone] * Full Code (Latest Code Status on File) Date Activated Date Inactivated Comments 03/25/2023 1:09 AM 03/26/2023 3:29 PM
[2025-02-16 21:25] VITALS: BP 106/64; PULSE 103; RESP 20; TEMP 36.8; O2SAT 100
--- NOTE | 2025-02-16 21:40 | PC.NURSE ---
pt returned from smoking outside, pt provided with urine cup
[2025-02-16 21:59] LABS: Hematocrit 24.5 % (37.0-47.0); Hemoglobin 7.5 g/dL (12.0-15.0); Immature Granulocyte Percent A 0.2 % (0-0.5); Lymphocytes Absolute Auto 12.41 K/mm3 (0.9-3.2); Mean Corpuscular HGB Conc 30.6 g/dl (32-36); Mean Corpuscular Hemoglobin 29.5 pg (26-34); Mean Corpuscular Volume 96.5 fl (80-100); Nucleated Red Blood Cells Absolute Auto 0.000 K/mm3 (0.0-0.012); Nucleated Red Blood Cells Perc 0.0 % (0.0-0.2); Platelet Count Result 115 k/mm3 (150-375); Red Blood Count 2.54 M/mm3 (4.2-5.4); White Blood Count 15.3 K/mm3 (4.5-10.0)
[2025-02-16 22:10] LABS: Alanine Aminotransferase 20 U/L (6-35); Albumin Level 4.1 g/dL (3.5-5.1); Alkaline Phosphatase 130 U/L (38-126); Anion Gap 6 mmol/L (4-12); Aspartate Amino Transferase 36 U/L (14-36); Bilirubin,Total 0.4 mg/dL (0.2-1.3); Blood Urea Nitrogen 21 mg/dL (7-17); Calcium 10.1 mg/dL (8.4-10.2); Carbon Dioxide 32 mmol/L (22-30); Chloride 95 mmol/L (98-107); Estimated CRCL calculation 55 ml/min; Estimated Glomerular Filt Rate 60; Glucose 80 mg/dL (65-110); Lipase 21 U/L (23-300); Potassium 5.0 mmol/L (3.4-5.0); Sodium 133 mmol/L (137-145); Total Protein 6.7 g/dL (6.3-8.2)
[2025-02-16 22:19] LABS: BEDSIDEPREGUCG Negative (Negative)
[2025-02-16 22:25] LABS: Add Urine Microscopic? NO; Appearance Urine Clear (Clear); Glucose Urine UA Negative (Negative); Leukocyte Esterase Ur Negative LEU/UL (Negative); Nitrate Urine Negative (Negative); Specific Grav Ur 1.013 (1.001-1.035)
[2025-02-17 00:27] VITALS: BP 106/68; PULSE 88; RESP 20; O2SAT 98
--- OUTSIDE RECORDS SUMMARY | 2025-02-17 01:15 | XMS_ITS ---
Author Organization [facility] Address [address] [place] [address] Phone Care Team Providers Care Mosquito Sprayer Name Role Phone Gabriel Salmeron MD Unavailable [phone] Brooks Sosa MD Unavailable [phone] Provider, None Primary Care Provider UnavailKervin Rubi MD Unavailable [facility] Status:Enrolled (Active) Start date:05/05/2024 Enrollment date:05/05/2024 Related social drivers of health:Social Connections, Tobacco Use, Depression, Stress, Physical Activity, Utilities Continued Care and Services Coordination
--- OUTSIDE RECORDS SUMMARY | 2025-02-17 01:15 | XMS_ITS ---
Author Organization [facility] [address] [facility] Address [address] [place] [address] Care Team Providers Care Upper Stitcher Name Role Phone Ramy Aguilera MD Unavailable [phone] Satya Fernandez MD Primary Care Provider [phone] Active Problems Problem Noted Date Diagnosed Date [...] - Plan to discharge patient with outpatient [facility] follow-up on 09/30/24. Assessment & [...]
--- OUTSIDE RECORDS SUMMARY | 2025-02-17 01:15 | XMS_ITS ---
Author Organization [facility] Address [address] [place] [address] Phone Care Team Providers Care Section Laborer Name Role Phone Gabriel Salmeron MD Unavailable Brooks Sosa MD Unavailable [phone] Provider, None Primary Care Provider UnavailKervin Rubi [...] current use Anxiety 05/07/2023 Under care of longterm service 05/07/2023 Overview (05/07/2023): Two previous stays at longterm Child living with her parents Current Treatment [...] 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 Hx of longterm time
--- OUTSIDE RECORDS SUMMARY | 2025-02-17 01:16 | XMS_ITS | Encounter Summary ---
Author Organization [facility] Address [address] [place] [address] Care Team Providers Care Die Cutter Diamond Name Role Phone Unavailable Primary Care Provider [...]
--- OUTSIDE RECORDS SUMMARY | 2025-02-17 01:16 | XMS_ITS | Encounter Summary ---
Author Organization [facility] Address [address] [place] [address] Care Team Providers Care Networking Technician Name Role Phone Unavailable Primary Care Provider Unavailabl e Encounter Details Date Type Department Care Team (Late st Contact Info) Description 12/18/2022 Lab Requisition [facility] - Pathology Lab [address] [place] [address] Ishan Escobedo MD [address] [facility] [address] [place] [id number] Generalized enlarged lymph nodes Social History [...] AM CDT) Case Report Flow Cytometry Case: [id number] Authorizing Provider: Ishan Escobedo MD Collected: 12/18/2022 09:00 AM Ordering Location: [facility] Care Pathology Lab Received: 12/18/2022 03:11 PM Pathologist: Giovanni Chow MD Specimen: Axillary Lymph Node, RIGHT 12/18/2022 5:15 PM CDT [facility] Final Diagnosis Axillary lymph node, flow cytometry: - [place] [employer] [place] restricted CD10+ B-cell population detected (~99% of overall events) 12/18/2022 5:15 PM CDT [facility] at 1714 CDT Flow Cytometry Interpretation Viability: 87%. B-cells: monoclonal, kappa-restricted, expressing CD19, CD20, and CD10. T-cells: not increased, no immunophenotypic aberrancy. A cytospin prepared from the flow cytometry specimen has been reviewed for training and quality manager purposes. 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 Histologic slides are pending for final subclassification. 12/18/2022 5:15 PM [facility] Flow Cytometry Results Differential Result Comment Flow Cell Count /uL 9,000 Total Viability % 87.0 Lymphocytes % 99 Dim CD45 Region % 0 Monocytes % 0 Granulocytes % 1 12/18/2022 5:15 PM [facility] Reason for test Generalized enlarged lymph nodes 785.6 12/18/2022 5:15 PM [facility] Client Specimen ID # [id number] 12/18/2022 5:15 PM [facility] Number of markers 16 were performed. A-2 Flow CD3 A-4 Flow CD10 A-6 Flow CD20 A-7 Flow CD23 A-12 Flow CD2 A-13 Flow CD4 A-16 Flow CD1a A-3 Flow CD5 A-5 Flow CD19 A-8 Flow CD34 A-9 Flow CD45 A-14 Flow CD7 A-15 Flow CD8 A-17 Flow CD30 A-10 [place]+CD19+ A-11 Lambda+CD19+ 12/18/2022 5:15 PM [facility] Pathologist Location at [facility] 12/18/2022 5:15 PM [facility] Disclaimer Test performed at [facility], [address] [place] [address], [id number]. *The established laboratory minimum viability is 70%. [...] PATHOLOGY LAB Embedded Images 5:15 PM CDT [facility] Pathology/Cytolo gy AXILLARY LYMPH NODE STRUCTURE / Unknown 12/18/2022 9:00 AM CDT 12/18/2022 3:11 PM CDT us Ishan Escobedo MD LAB - PATHOLOGY/CYTOLOGY ORDERAB LES Final Result [facility] [address] [phone] documented in this encounter Visit Diagnoses Diagnosis Generalized enlarged lymph nodes Enlargement of lymph nodes documented in this encounter
--- OUTSIDE RECORDS SUMMARY | 2025-02-17 01:16 | XMS_ITS | Clinical Summary ---
Author Organization [facility] Address [address] [place] [place] [address] Care Team Providers Care Economic Manager Name Role Phone Unavailable Primary Care [...] Pain, Mild. Active naloxone (NARCAN) 4 mg/spray [place], Non-Aerosol EMERGENCY USE ONLY: Administer 1 spray [...] Comments Blood Pressure 109/66 04/17/2023 8:40 AM ROOFING SUPERINTENDENT Pulse 111 04/17/2023 8:40 AM ROOFING SUPERINTENDENT Temperature 36.6 C (97.9 F) 04/17/2023 8:40 AM ROOFING SUPERINTENDENT Respiratory Rate 10 04/17/2023 8:40 AM ROOFING SUPERINTENDENT Oxygen Saturation 92% 03/27/2023 11:06 AM ROOFING SUPERINTENDENT Inhaled Oxygen Concentration - - Weight 51.3 kg (113 lb) 04/17/2023 8:40 AM ROOFING SUPERINTENDENT Height 162.6 cm (5' 4) 03/24/2023 6:27 PM ROOFING SUPERINTENDENT Body Mass Index 19.4 03/24/2023 6:27 PM ROOFING SUPERINTENDENT Plan of Treatment Health Maintenance Due Date [...] Advance Directives For more information, please contact: [phone] * Full Code (Latest Code Status on File) Date Activated Date Inactivated Comments 03/25/2023 1:09 AM 03/26/2023 3:29 PM
--- OUTSIDE RECORDS SUMMARY | 2025-02-17 01:16 | XMS_ITS | Clinical Summary ---
Author Organization [place] [id number] Address [address] [place] [address] Care Team Providers Care Automation Clerk Name Role Phone Ramy Aguilera MD Unavailable [phone] Satya Fernandez MD Primary Care Provider [phone] Allergies Active Allergy Reactions Criticality Noted Date [...] - Plan to discharge patient with outpatient [facility] follow-up on 09/30/24. Assessment & [...] - Plan to discharge patient with outpatient [facility] follow-up on 09/30/24. Assessment & [...] - Plan to discharge patient with outpatient [facility] follow-up on 09/30/24. Assessment & [...] Department Care Team Description 02/10/2025 11:00 AM ADULT NEUROLOGIST Infusion [facility] at [address] [phone] Follicular lymphoma, unspecified follicular lymphoma type, unspecified body region (HCC) (Primary Dx); Prevention of chemotherapy-induced neutropenia 02/10/2025 10:30 AM ADULT NEUROLOGIST Lab [address] [address] Prevention of chemotherapy-induced neutropenia (Primary Dx); Follicular lymphoma, unspecified follicular lymphoma type, unspecified body region (HCC) 02/10/2025 Social Work [facility] Medicine Oncology [address] [place] [phone] Marycarmen Gray LCSW 02/03/2025 12:00 PM CDT Infusion [address] [phone] Follicular lymphoma, unspecified follicular lymphoma type, unspecified body region (HCC) (Primary Dx); Prevention of chemotherapy-induced neutropenia 02/03/2025 11:30 AM CDT [facility] [address] [place] [phone] Ramy Aguilera MD Follicular lymphoma, unspecified follicular lymphoma type, unspecified body region (HCC) (Primary Dx); Prevention of chemotherapy-induced neutropenia 02/03/2025 11:00 AM CDT Lab [address] [address] Follicular lymphoma, unspecified follicular lymphoma type, unspecified body region (HCC); Prevention of chemotherapy-induced neutropenia 02/03/2025 Orders Only [facility] On[facility] [address] [place] [phone] Ramy Aguilera MD 01/18/2025 Social Work [facility] On[facility] [address] [place] [phone] Desirae Bates LCSW 01/13/2025 12:00 PM CDT Clinical Support [facility] Medical Office Building 2 Radiation Oncology [address] [place] [address] Follicular lymphoma, unspecified follicular lymphoma type, unspecified body region (HCC) (Primary Dx) 01/13/2025 10:30 AM CDT Infusion [address] [phone] Prevention of chemotherapy-induced neutropenia (Primary Dx); Follicular lymphoma, unspecified follicular lymphoma type, unspecified body region (HCC) 01/13/2025 10:00 AM CDT Office Visit [facility] [address] [place] [phone] Ramy Aguilera MD Follicular lymphoma, unspecified follicular lymphoma type, unspecified body region (HCC) (Primary Dx); Prevention of chemotherapy-induced neutropenia 01/13/2025 9:30 AM CDT Lab [address] [address] Follicular lymphoma, unspecified follicular lymphoma type, unspecified body region (HCC); Prevention of chemotherapy-induced neutropenia 01/12/2025 Orders Only [facility] [address] [place] [phone] Ramy Aguilera MD 12/30/2024 Orders Only [facility] [place] at [address] [phone] Paulina German RPh 12/23/2024 10:30 AM CDT Infusion [facility] at [address] [phone] Prevention of chemotherapy-induced neutropenia (Primary Dx); Follicular lymphoma, unspecified follicular lymphoma type, unspecified body region (HCC) 12/23/2024 10:00 AM CDT Office Visit [facility] [address] [place] [phone] Ramy Aguilera MD Follicular lymphoma, unspecified follicular lymphoma type, unspecified body region (HCC) (Primary Dx); Prevention of chemotherapy-induced neutropenia 12/23/2024 9:30 AM CDT Lab [address] [address] Follicular lymphoma, unspecified follicular lymphoma type, unspecified body region (HCC); Prevention of chemotherapy-induced neutropenia 12/22/2024 Orders Only [facility] [address] [place] [phone] Ramy Aguilera MD 12/16/2024 Orders Only [address] [phone] Paulina German [place]ena 12/15/2024 8:06 AM CDT - 12/15/2024 11:59 PM CDT Hospital Encounter [facility] [address] [place] [address] Follicular lymphoma, unspecified follicular lymphoma type, unspecified body region (HCC) Discharge Disposition: Discharge to home or self care 12/09/2024 10:00 AM CDT Office Visit [facility] Transplant [address] [place] [phone] Paige Giordano NP Follicular lymphoma, unspecified follicular lymphoma type, unspecified body region (HCC) (Primary Dx) 12/09/2024 9:30 AM CDT Lab [address] [address] Follicular lymphoma, unspecified follicular lymphoma type, unspecified body region (HCC) 11/18/2024 8:45 AM CDT Infusion [address] [phone] Follicular lymphoma, unspecified follicular lymphoma type, unspecified body region (HCC) (Primary Dx) 11/18/2024 8:15 AM CDT Office Visit [facility] [address] [place] [address] [address] [place] [phone] Ramy Aguilera MD Follicular lymphoma, unspecified follicular lymphoma type, unspecified body region (HCC) (Primary Dx); Diarrhea, unspecified type 11/18/2024 7:45 AM CDT Lab [facility] at [address] [address] Follicular lymphoma, unspecified follicular lymphoma type, unspecified body region (HCC); Diarrhea, unspecified type 11/18/2024 Orders Only [facility] On[facility] [address] [place] [address] [address] [place] [phone] Ramy Aguilera MD from Last 3 Months [...] Comments Blood Pressure 98/62 02/10/2025 10:55 AM ADULT NEUROLOGIST Pulse 93 02/10/2025 10:55 AM ADULT NEUROLOGIST Temperature 36.5 C (97.7 F) 02/10/2025 10:55 AM ADULT NEUROLOGIST Respiratory Rate 16 02/10/2025 10:5 5 AM ADULT NEUROLOGIST Oxygen Saturation 100% 02/10/2025 10: 55 AM ADULT NEUROLOGIST Inhaled Oxygen Concentration - - Weight 49.2 kg (108 lb 7.5 oz) 02/11/20 25 10:55 AM ADULT NEUROLOGIST W/O SHOES Height 158.5 cm (5' 2.4) 12/23/2024 10 :45 AM CDT Body Mass Index 19.58 12/23/2024 10:45 AM CDT Plan of Treatment Upcoming Encounters Date Type Department Care Team (Late st Contact Info) Description 2025 10:00 AM ADULT NEUROLOGIST Hospital Encounter [facility] [address] [address] Health Maintenance Due Date Last Done Comments [...] BLOOD SMEAR REVIEW Routine 02/10/2025 10:45 AM ADULT NEUROLOGIST Follicular lymphoma, unspecified follicular lymphoma type, unspecified body region (HCC) Prevention of chemotherapy-jeanie hany neutropenia EGFR STAT 02/10/2025 10:45 AM ADULT NEUROLOGIST Follicular lymphoma, unspecified follicular lymphoma type, unspecified body region (HCC) Prevention of chemotherapy-jeanie hany neutropenia DIFFERENTIAL AUTO Routine 02/10/2025 10:45 AM ADULT NEUROLOGIST Follicular lymphoma, unspecified follicular lymphoma type, unspecified body region (HCC) Prevention of chemotherapy-jeanie hany neutropenia CBC WITH AUTO DIFFERENTIAL Routine 02/10/2025 10:45 AM ADULT NEUROLOGIST Follicular lymphoma, unspecified follicular lymphoma type, unspecified body region (HCC) Prevention of chemotherapy-jeanie hany neutropenia COMPREHENSIVE METABOLIC PANEL STAT 02/10/2025 10:45 AM ADULT NEUROLOGIST Follicular lymphoma, unspecified follicular lymphoma type, unspecified body region (HCC) Prevention of chemotherapy-jeanie hany neutropenia HCG, BLOOD, QUANTITATIVE STAT 02/10/2025 10:45 AM ADULT NEUROLOGIST Follicular lymphoma, unspecified follicular lymphoma type, unspecified [...] (ABNORMAL) Blood smear review (02/10/2025 10:45 AM ADULT NEUROLOGIST) RBC morphology Consistent with RBC Indicies Comment:Testing performed by : [address] [address] Anisocytosis Slight(A) JSOELYN VAZQUEZ Comment:Testing performed by : [address] [place]., [address] Platelet estimate Adequate JOSELYN Comment:Testing performed by : [address] [address] Blood 02/10/2025 10:4 5 AM ADULT NEUROLOGIST 02/10/2025 10:48 AM ADULT NEUROLOGIST us Ramy Aguilera MD LAB BLOOD ORDERABLES Final R esult Performing Organization Address City/[facility]/ZIP Co de Phone Number JOSELYN [address] [place] [address] * eGFR (02/10/2025 10:45 AM ADULT NEUROLOGIST) eGFR >90 >=60 mL/min/1. 73 m2 Comment: [...] was last reviewed 2021. Testing performed by: [address] [address] Blood 02/10/2025 10:4 5 AM ADULT NEUROLOGIST 02/10/2025 10:48 AM ADULT NEUROLOGIST us Ramy Aguilera MD LAB BLOOD ORDERABLES Final R esult Performing Organization Address City/[facility]/ZIP Co de Phone Number JOSELYN [facility] [place] [address] * (ABNORMAL) Differential, auto (02/10/2025 10:45 AM ADULT NEUROLOGIST) Neutrophil abs 2.05 1.50 - 6.50 K/cumm Comment:Testing performed by : [address] [address] Imm gran abs 0.01 0.00 - 0.10 K/cumm JOSELYN Comment:Testing performed by : [address] [address] Lymphocyte abs 13.08(H) 0.80 - 3.30 K/cumm JOSELYN Comment:Testing performed by : [address] [address] Monocyte abs 0.29 0.20 - 0.80 K/cumm [facility] Comment:Testing performed by : [address] [address] Eosinophil abs 0.02 0.00 - 0.50 K/cumm JOSELYN Comment:Testing performed by : [address] [address] Basophil abs 0.07 0.00 - 0.10 K/cumm [facility] Comment:Testing performed by : [address] [address] Neutrophil pct 13.1 % [facility] Comment: Interpretive Data Percent cell count reference ranges are not reported, since discordance with absolute values may lead to misinterpretation of CBC data. Current Interpretive Data was last revised on 2017. Testing performed by: [address] [address] Imm gran pct 0.1 % [facility] Comment: Interpretive Data Percent cell count reference ranges are not reported, since discordance with absolute values may lead to misinterpretation of CBC data. Current Interpretive Data was last revised on 2017. Testing performed by: [address] [address] Lymphocyte pct 84.3 % [facility] Comment: Interpretive Data Percent cell count reference ranges are not reported, since discordance with absolute values may lead to misinterpretation of CBC data. Current Interpretive Data was last revised on 2017. Testing performed by: [address] [address] Monocyte pct 1.9 % JOSELYN Comment: Interpretive Data Percent cell count reference ranges are not reported, since discordance with absolute values may lead to misinterpretation of CBC data. Current Interpretive Data was last revised on 2017. Testing performed by: [address] [address] Eosinophil pct 0.1 % JOSELYN Comment: Interpretive Data Percent cell count reference ranges are not reported, since discordance with absolute values may lead to misinterpretation of CBC data. Current Interpretive Data was last revised on 2017. Testing performed by: [address] [address] Basophil pct 0.5 % JOSELYN Comment: Interpretive Data Percent cell count reference ranges are not reported, since discordance with absolute values may lead to misinterpretation of CBC data. Current Interpretive Data was last revised on 2017. Testing performed by: [address] [address] Blood 02/10/2025 10:4 5 AM ADULT NEUROLOGIST 02/10/2025 10:48 AM ADULT NEUROLOGIST us Ramy Aguilera MD LAB BLOOD ORDERABLES Final R esult [facility] [address] [facility] [place] [address] * (ABNORMAL) CBC with auto differential (02/10/2025 10:45 AM ADULT NEUROLOGIST) WBC 15.52(H) 3.80 - 9.90 K/cumm Comment:Testing performed by : [address] [address] Hgb 7.9(L) 11.9 - 15.5 g/dL JOSELYN Comment:Testing performed by : [address] [address] Hct 25.5(L) 35.6 - 45.5 % JOSELYN Comment:Testing performed by : [address] [address] Plt 128(L) 150 - 400 K/cumm JOSELYN Comment:Testing performed by : [address] [address] MPV 10.3 9.1 - 12.3 fL JOSELYN Comment:Testing performed by : [address] [address] RBC 2.75(L) 3.90 - 5.20 M/cumm JOSELYN Comment:Testing performed by : [address] [address] MCV 92.7 81.3 - 96.4 fL JOSELYN Comment:Testing performed by : [address] [address] MCH 28.7 27.1 - 33.3 pg JOSELYN Comment:Testing performed by : [address] [address] MCHC 31.0(L) 32.3 - 35.7 g/dL JOSELYN Comment:Testing performed by : [address] [address] RDW CV 18.0(H) 11.1 - 14.9 % JOSELYN Comment:Testing performed by : [address] [address] RDW SD 60.4(H) 35.7 - 48.1 fL JOSELYN Comment:Testing performed by : [address] [address] NRBC abs 0.00 0.00 - 0.01 K/cumm JOSELYN Comment:Testing performed by : [address] [address] ANC Prelim 2.05 1.50 - 6.50 K/cumm JOSELYN Comment: Interpretive Data The rapid ANC is a preliminary automated count and may vary from the final ANC (Neut Abs) reported in the WBC differential that follows. Current interpretive data was last revised 2024. Testing performed by: [address], [address] Blood 02/10/2025 10:4 5 AM ADULT NEUROLOGIST 02/10/2025 10:48 AM ADULT NEUROLOGIST Ramy Aguilera MD LAB BLOOD ORDERABLES Final R esult Performing Organization Address [facility] de Phone Number JOSELYN [facility] [place] [address] * hCG, blood, quantitative (02/10/2025 10:45 AM ADULT NEUROLOGIST) [facility] hCG, quant <5.0 0.0 - 5.0 IUnits/L Comment: Interpretive Data Male: < 5 IU/L Non- premenopausal Female: <5 IU/L The Cosmo hCG Beta Quant assay procedure was used. Results from different manufacturers or methods may not be comparable. Serial testing should be performed using the same method. Interpretive Data was last revised on 2023 Testing performed by: [address] [address] Blood 02/10/2025 10:4 5 AM ADULT NEUROLOGIST 02/10/2025 11:06 AM ADULT NEUROLOGIST Ramy Aguilera MD LAB BLOOD ORDERABLES Final R esult Performing Organization Address City/[facility] Co de Phone Number JOSELYN [facility] [place] [address] * (ABNORMAL) Comprehensive metabolic panel (02/10/2025 10:45 AM ADULT NEUROLOGIST) [facility] Sodium 143 135 - 145 mmol/L Comment:Testing performed by : [address] [address] Potassium, pl 3.8 3.3 - 4.9 mmol/L JOSELYN VAZQUEZ Comment:Testing performed by : [address] [address] Chloride 102 97 - 110 mmol/L JOSELYN VAZQUEZ Comment:Testing performed by : [address] [address] CO2 29 22 - 32 mmol/L JOSELYN VAZQUEZ Comment:Testing performed by : [address] [place]., [address] Anion gap 12 2 - 15 mmol/L [facility] Comment:Testing performed by : [address] [address] BUN 12 6 - 25 mg/dL JOSELYN Comment:Testing performed by : [address] [address] Creatinine 0.80 0.60 - 1.10 mg/dL JOSELYN Comment:Testing performed by : [address] [address] Glucose 94 70 - 199 mg/dL [facility] Comment: Interpretive Data Fasting glucose >/= 126 [...] was last revised 2022. Testing performed by: [address] [address] Calcium 9.0 8.5 - 10.3 mg/dL JOSELYN Comment:Testing performed by : [address] [address] Bilirubin, total 0.3 0.1 - 1.2 mg/dL JOSELYN Comment:Testing performed by : [address] [address] Protein, pl 6.1(L) 6.5 - 8.5 g/dL JOSELYN Comment:Testing performed by : [address] [address] Albumin 4.0 3.5 - 5.0 g/dL JOSELYN Comment:Testing performed by : [address] [address] Alk phos 149(H) 40 - 130 Units/L JOSELYN Comment:Testing performed by : [address] [address] ALT 11 7 - 45 Units/L JOSELYN VAZQUEZ Comment:Testing performed by : [address] [address] AST 23 10 - 45 Units/L JOSELYN VAZQUEZ Comment:Testing performed by : [address] [address] Blood 02/10/2025 10:4 5 AM ADULT NEUROLOGIST 02/10/2025 10:48 AM ADULT NEUROLOGIST us Ramy Aguilera MD LAB BLOOD ORDERABLES Final R esult Performing Organization Address [facility] de Phone Number JOSELYN [facility] [place] [address] * (ABNORMAL) Blood smear review (02/03/2025 11:19 AM CDT) Pathologist [facility] RBC morphology Consistent with RBC Indicies Comment:Testing performed by : [address] [address] Anisocytosis Slight(A) JOSELYN VAZQUEZ Comment:Testing performed by : [address] [address] Platelet estimate Adequate JOSELYN Comment:Testing performed by : [address] [address] Blood 02/03/2025 11:1 9 AM CDT 02/03/2025 11:22 AM CDT Ramy Aguilera MD LAB BLOOD ORDERABLES Final R esult Performing Organization Address [facility] Co de Phone Number [facility] [address] [facility] [place] [address] * eGFR (02/03/2025 11:19 AM CDT) eGFR [...] was last reviewed 2021. Testing performed by: [address] [address] Blood 02/03/2025 11:1 9 AM CDT 02/03/2025 11:22 AM CDT us Ramy Aguilera MD LAB BLOOD ORDERABLES Final R esult [facility] [address] [facility] Department of Laboratories [place], [place] [id number] * (ABNORMAL) Differential, auto (02/03/2025 11:19 AM CDT) Neutrophil abs 2.22 1.50 - 6.50 K/cumm Comment:Testing performed by : [address] [address] Imm gran abs 0.04 0.00 - 0.10 K/cumm JOSELYN Comment:Testing performed by : [address] [address] Lymphocyte abs 22.28(H) 0.80 - 3.30 K/cumm JOSELYN Comment:Testing performed by : [address] [address] Monocyte abs 0.58 0.20 - 0.80 K/cumm JOSELYN Comment:Testing performed by : [address] [address] Eosinophil abs 0.01 0.00 - 0.50 K/cumm JOSELYN Comment:Testing performed by : [address] [address] Basophil abs 0.11(H) 0.00 - 0.10 K/cumm JOSELYN Comment:Testing performed by : [address] [address] Neutrophil pct 8.8 % JOSELYN Comment: Interpretive Data Percent cell count reference ranges are not reported, since discordance with absolute values may lead to misinterpretation of CBC data. Current Interpretive Data was last revised on 2017. Testing performed by: [address] [address] Imm gran pct 0.2 % [facility] Comment: Interpretive Data Percent cell count reference ranges are not reported, since discordance with absolute values may lead to misinterpretation of CBC data. Current Interpretive Data was last revised on 2017. Testing performed by: [address] [address] Lymphocyte pct 88.3 % [facility] Comment: Interpretive Data Percent cell count reference ranges are not reported, since discordance with absolute values may lead to misinterpretation of CBC data. Current Interpretive Data was last revised on 2017. Testing performed by: [address] [address] Monocyte pct 2.3 % [facility] Comment: Interpretive Data Percent cell count reference ranges are not reported, since discordance with absolute values may lead to misinterpretation of CBC data. Current Interpretive Data was last revised on 2017. Testing performed by: [address] [address] Eosinophil pct 0.0 % [facility] Comment: Interpretive Data Percent cell count reference ranges are not reported, since discordance with absolute values may lead to misinterpretation of CBC data. Current Interpretive Data was last revised on 2017. Testing performed by: [address] [address] Basophil pct 0.4 % [facility] Comment: Interpretive Data Percent cell count reference ranges are not reported, since discordance with absolute values may lead to misinterpretation of CBC data. Current Interpretive Data was last revised on 2017. Testing performed by: [address] [address] Blood 02/03/2025 11:1 9 AM CDT 02/03/2025 11:22 AM CDT us Ramy Aguilera MD LAB BLOOD ORDERABLES Final R esult [facility] [address] [facility] [place] [address] * (ABNORMAL) CBC with auto differential (02/03/2025 11:19 AM CDT) WBC 25.24(H) 3.80 - 9.90 K/cumm Comment:Testing performed by : [address] [address] Hgb 8.7(L) 11.9 - 15.5 g/dL JOSELYN Comment:Testing performed by : [address] [address] Hct 28.1(L) 35.6 - 45.5 % JOSELYN Comment:Testing performed by : [address] [address] Plt 176 150 - 400 K/cumm JOSELYN Comment:Testing performed by : [address] [address] MPV 9.6 9.1 - 12.3 fL JOSELYN Comment:Testing performed by : [address] [address] RBC 3.07(L) 3.90 - 5.20 M/cumm JOSELYN Comment:Testing performed by : [address] [address] MCV 91.5 81.3 - 96.4 fL JOSELYN Comment:Testing performed by : [address] [address] MCH 28.3 27.1 - 33.3 pg JOSELYN Comment:Testing performed by : [address] [address] MCHC 31.0(L) 32.3 - 35.7 g/dL JOSELYN Comment:Testing performed by : [address] [address] RDW CV 17.6(H) 11.1 - 14.9 % JOSELYN Comment:Testing performed by : [address] [address] RDW SD 57.8(H) 35.7 - 48.1 fL JOSELYN Comment:Testing performed by : [address] [address] NRBC abs 0.02(H) 0.00 - 0.01 K/cumm JOSELYN Comment:Testing performed by : [address] [address] ANC Prelim 2.22 1.50 - 6.50 K/cumm JOSELYN Comment: Interpretive Data The rapid ANC is a preliminary automated count and may vary from the final ANC (Neut Abs) reported in the WBC differential that follows. Current interpretive data was last revised 2024. Testing performed by: [address] [address] Blood 02/03/2025 11:1 9 AM CDT 02/03/2025 11:22 AM CDT us Ramy Aguilera MD LAB BLOOD ORDERABLES Edited Result - Final [facility] [address] [facility] [place] [address] * hCG, blood, quantitative (02/03/2025 [...] last revised on 2023 Testing performed by: [address] [address] Blood 02/03/2025 11:1 9 AM CDT 02/03/2025 11:45 AM CDT Ramy Aguilera MD LAB BLOOD ORDERABLES Final R esult Performing Organization Address [facility] de Phone Number [address] [address] * (ABNORMAL) Lactate dehydrogenase (LD) (02/03/2025 11:19 AM CDT) Lactate dehydrogenase (LDH) 392(H) 100 - 250 Units/L Comment: HEMOLYZED: Hemolysis interferes with the above test. Testing performed by: [address] [address] Blood 02/03/2025 11:1 9 AM CDT 02/03/2025 11:22 AM CDT Ramy Aguilera MD LAB BLOOD ORDERABLES Final R esult Performing Organization Address [facility] de Phone Number [address] [address] * (ABNORMAL) Comprehensive metabolic panel (02/03/2025 11:19 AM CDT) Pathologist [facility] Sodium 136 135 - 145 mmol/L Comment:Testing performed by : [address] [address] Potassium, pl 3.7 3.3 - 4.9 mmol/L JOSELYN Comment:Testing performed by : [address] [address] Chloride 99 97 - 110 mmol/L JOSELYN Comment:Testing performed by : [address] [address] CO2 23 22 - 32 mmol/L JOSELYN Comment:Testing performed by : [address] [address] Anion gap 14 2 - 15 mmol/L JOSELYN Comment:Testing performed by : [address] [address] BUN 8 6 - 25 mg/dL JOSELYN Comment:Testing performed by : [address] [address] Creatinine 0.70 0.60 - 1.10 mg/dL JOSELYN Comment:Testing performed by : [address] [address] Glucose 105 70 - 199 mg/dL JOSELYN [...] was last revised 2022. Testing performed by: [address] [address] Calcium 9.3 8.5 - 10.3 mg/dL JOSELYN Comment:Testing performed by : [address] [address] Bilirubin, total 0.5 0.1 - 1.2 mg/dL JOSELYN Comment:Testing performed by : [address] [address] Protein, pl 6.4(L) 6.5 - 8.5 g/dL JOSELYN Comment:Testing performed by : [address] [address] Albumin 4.0 3.5 - 5.0 g/dL JOSELYN Comment:Testing performed by : [address] [address] Alk phos 180(H) 40 - 130 Units/L JOSELYN Comment:Testing performed by : [address] [address] ALT 25 7 - 45 Units/L JOSELYN Comment:Testing performed by : [address] [address] AST 33 10 - 45 Units/L JOSELYN Comment:Testing performed by : [address] [address] Blood 02/03/2025 11:1 9 AM CDT 02/03/2025 11:22 AM CDT Ramy Aguilera MD LAB BLOOD ORDERABLES Final R esult Performing Organization Address [facility] [place] de Phone Number [address] [address] * (ABNORMAL) Blood smear review (01/13/2025 10:00 AM CDT) Pathologist [facility] [place] RBC morphology Consistent with RBC Indicies Comment:Testing performed by : [address] [address] Anisocytosis Slight(A) JOSELYN Comment:Testing performed by : [address] [address] Platelet estimate Adequate JOSELYN Comment:Testing performed by : [address] [address] Blood 01/13/2025 10:0 0 AM CDT 01/13/2025 10:02 AM CDT Ramy Aguilera MD LAB BLOOD ORDERABLES Final R esult Performing Organization Address [facility] [place] de Phone Number [address] [address] * eGFR (01/13/2025 10:00 AM CDT) eGFR [...] was last reviewed 2021. Testing performed by: [address] [address] Blood 01/13/2025 10:0 0 AM CDT 01/13/2025 10:02 AM CDT us Ramy Aguilera MD LAB BLOOD ORDERABLES Final R esult [facility] [address] [facility] Department of Laboratories [place], [place] [id number] * (ABNORMAL) Differential, auto (01/13/2025 10:00 AM CDT) Neutrophil abs 1.44(L) 1.50 - 6.50 K/cumm Comment:Testing performed by : [address] [address] Imm gran abs 0.03 0.00 - 0.10 K/cumm JOSELYN Comment:Testing performed by : [address] [address] Lymphocyte abs 17.55(H) 0.80 - 3.30 K/cumm JOSELYN Comment:Testing performed by : [address] [address] Monocyte abs 0.33 0.20 - 0.80 K/cumm JOSELYN Comment:Testing performed by : [address] [address] Eosinophil abs 0.04 0.00 - 0.50 K/cumm JOSELYN Comment:Testing performed by : [address] [address] Basophil abs 0.10 0.00 - 0.10 K/cumm JOSELYN Comment:Testing performed by : [address] [address] Neutrophil pct 7.4 % [facility] Comment: Interpretive Data Percent cell count reference ranges are not reported, since discordance with absolute values may lead to misinterpretation of CBC data. Current Interpretive Data was last revised on 2017. Testing performed by: [address] [address] Imm gran pct 0.2 % [facility] Comment: Interpretive Data Percent cell count reference ranges are not reported, since discordance with absolute values may lead to misinterpretation of CBC data. Current Interpretive Data was last revised on 2017. Testing performed by: [address] [address] Lymphocyte pct 90.0 % [facility] Comment: Interpretive Data Percent cell count reference ranges are not reported, since discordance with absolute values may lead to misinterpretation of CBC data. Current Interpretive Data was last revised on 2017. Testing performed by: [address] [address] Monocyte pct 1.7 % [facility] Comment: Interpretive Data Percent cell count reference ranges are not reported, since discordance with absolute values may lead to misinterpretation of CBC data. Current Interpretive Data was last revised on 2017. Testing performed by: [address] [address] Eosinophil pct 0.2 % [facility] Comment: Interpretive Data Percent cell count reference ranges are not reported, since discordance with absolute values may lead to misinterpretation of CBC data. Current Interpretive Data was last revised on 2017. Testing performed by: [address] [address] Basophil pct 0.5 % [facility] Comment: Interpretive Data Percent cell count reference ranges are not reported, since discordance with absolute values may lead to misinterpretation of CBC data. Current Interpretive Data was last revised on 2017. Testing performed by: [address] [address] Blood 01/13/2025 10:0 0 AM CDT 01/13/2025 10:02 AM CDT us Ramy Aguilera MD LAB BLOOD ORDERABLES Final R esult JOSELYN [address] [facility] [place] [address] * (ABNORMAL) CBC with auto differential (01/13/2025 10:00 AM CDT) WBC 19.49(H) 3.80 - 9.90 K/cumm Comment:Testing performed by : [address] [address] Hgb 8.1(L) 11.9 - 15.5 g/dL JOSELYN Comment:Testing performed by : [address] [address] Hct 25.4(L) 35.6 - 45.5 % JOSELYN Comment:Testing performed by : [address] [address] Plt 108(L) 150 - 400 K/cumm JOSELYN Comment:Testing performed by : [address] [address] MPV 8.8(L) 9.1 - 12.3 fL JOSELYN Comment:Testing performed by : [address] [address] RBC 2.77(L) 3.90 - 5.20 M/cumm JOSELYN Comment:Testing performed by : [address] [address] MCV 91.7 81.3 - 96.4 fL JOSELYN Comment:Testing performed by : [address] [address] MCH 29.2 27.1 - 33.3 pg JOSELYN Comment:Testing performed by : [address] [address] MCHC 31.9(L) 32.3 - 35.7 g/dL JOSELYN Comment:Testing performed by : [address] [address] RDW CV 17.9(H) 11.1 - 14.9 % JOSELYN Comment:Testing performed by : [address] [address] RDW SD 59.7(H) 35.7 - 48.1 fL JOSELYN Comment:Testing performed by : [address] [address] NRBC abs 0.02(H) 0.00 - 0.01 K/cumm JOSELYN Comment:Testing performed by : [address] [address] ANC Prelim 1.44(L) 1.50 - 6.50 K/cumm JOSELYN Comment: Interpretive Data The rapid ANC is a preliminary automated count and may vary from the final ANC (Neut Abs) reported in the WBC differential that follows. Current interpretive data was last revised 2024. Testing performed by: [address] [address] Blood 01/13/2025 10:0 0 AM CDT 01/13/2025 10:02 AM CDT Ramy Aguielra MD LAB BLOOD ORDERABLES Edited Result - Final [facility] [address] [facility] Department [place] [address] * hCG, blood, quantitative (01/13/2025 [...] last revised on 2023 Testing performed by: [address] [address] Blood 01/13/2025 10:0 0 AM CDT 01/13/2025 10:18 AM CDT us Ramy Aguilera MD LAB BLOOD ORDERABLES Final R esult JOSELYN [address] [facility] Department [place] [address] * (ABNORMAL) Comprehensive metabolic panel (01/13/2025 10:00 AM CDT) Sodium 138 135 - 145 mmol/L Comment:Testing performed by : [address] [address] Potassium, pl 3.2(L) 3.3 - 4.9 mmol/L JOSELYN Comment:Testing performed by : [address] [address] Chloride 98 97 - 110 mmol/L JOSELYN Comment:Testing performed by : [address] [address] CO2 26 22 - 32 mmol/L JOSELYN Comment:Testing performed by : [address] [address] Anion gap 14 2 - 15 mmol/L JOSELYN Comment:Testing performed by : [address] [address] BUN 6 6 - 25 mg/dL JOSELYN Comment:Testing performed by : [address] [address] Creatinine 0.70 0.60 - 1.10 mg/dL JOSELYN Comment:Testing performed by : [address] [address] Glucose 131 70 - 199 mg/dL JOSELYN [...] was last revised 2022. Testing performed by: [address] [address] Calcium 9.0 8.5 - 10.3 mg/dL JOSELYN Comment:Testing performed by : [address] [address] Bilirubin, total 0.5 0.1 - 1.2 mg/dL JOSELYN Comment:Testing performed by : [address] [address] Protein, pl 5.8(L) 6.5 - 8.5 g/dL JOSELYN Comment:Testing performed by : [address] [address] Albumin 3.8 3.5 - 5.0 g/dL JOSELYN Comment:Testing performed by : [address] [address] Alk phos 238(H) 40 - 130 Units/L JOSELYN Comment:Testing performed by : [address] [address] ALT 17 7 - 45 Units/L JOSELYN Comment:Testing performed by : [address] [address] AST 30 10 - 45 Units/L JOSELYN Comment:Testing performed by : [address] [address] Blood 01/13/2025 10:0 0 AM CDT 01/13/2025 10:02 AM CDT us Ramy Aguilera MD LAB BLOOD ORDERABLES Final R esult JOSELYN [address] [facility] Department [place] [address] * (ABNORMAL) Blood smear review (12/23/2024 9:47 AM CDT) RBC morphology Consistent with RBC Indicies Comment:Testing performed by : [address] [address] Anisocytosis Slight(A) JOSELYN VAZQUEZ Comment:Testing performed by : [facility], [address] [place] [address]., [address] Platelet estimate Adequate JOSELYN VAZQUEZ Comment:Testing performed by : [facility], [address] [place] [address]., [address] Blood 12/23/2024 9:47 AM CDT 12/23/2024 9:48 AM CDT us Ramy Aguilera MD LAB BLOOD ORDERABLES Final R esult Performing Organization Address City/[facility] Co de Phone Number JOSELYN [address] [facility] Department [place] [address] * eGFR (12/23/2024 9:47 AM [...] was last reviewed 2021. Testing performed by: [facility], [address] [place] [address]., [address] Blood 12/23/2024 9:47 AM CDT 12/23/2024 9:48 AM CDT us Ramy Aguilera MD LAB BLOOD ORDERABLES Final R esult JOSELYN [address] [facility] Department [place] [address] * (ABNORMAL) Differential, auto (12/23/2024 9:47 AM CDT) Neutrophil abs 2.06 1.50 - 6.50 K/cumm Comment:Testing performed by : [address] [address] Imm gran abs 0.08 0.00 - 0.10 K/cumm JOSELYN Comment:Testing performed by : [address], [place]., [address] Lymphocyte abs 21.14(H) 0.80 - 3.30 K/cumm JOSELYN Comment:Testing performed by : [address], [place]., [address] Monocyte abs 0.37 0.20 - 0.80 K/cumm JOSELYN Comment:Testing performed by : [address] [address] Eosinophil abs 0.10 0.00 - 0.50 K/cumm JOSELYN Comment:Testing performed by : [address] [address] Basophil abs 0.09 0.00 - 0.10 K/cumm JOSELYN Comment:Testing performed by : [address] [address] Neutrophil pct 8.6 % JOSELYN Comment: Interpretive Data Percent cell count reference ranges are not reported, since discordance with absolute values may lead to misinterpretation of CBC data. Current Interpretive Data was last revised on 2017. Testing performed by: [address] [address] Imm gran pct 0.3 % JOSELYN Comment: Interpretive Data Percent cell count reference ranges are not reported, since discordance with absolute values may lead to misinterpretation of CBC data. Current Interpretive Data was last revised on 2017. Testing performed by: [address] [address] Lymphocyte pct 88.7 % JOSELYN Comment: Interpretive Data Percent cell count reference ranges are not reported, since discordance with absolute values may lead to misinterpretation of CBC data. Current Interpretive Data was last revised on 2017. Testing performed by: [address] [address] Monocyte pct 1.6 % JOSELYN Comment: Interpretive Data Percent cell count reference ranges are not reported, since discordance with absolute values may lead to misinterpretation of CBC data. Current Interpretive Data was last revised on 2017. Testing performed by: [address] [address] Eosinophil pct 0.4 % JOSELYN Comment: Interpretive Data Percent cell count reference ranges are not reported, since discordance with absolute values may lead to misinterpretation of CBC data. Current Interpretive Data was last revised on 2017. Testing performed by: [address] [address] Basophil pct 0.4 % JOSELYN Comment: Interpretive Data Percent cell count reference ranges are not reported, since discordance with absolute values may lead to misinterpretation of CBC data. Current Interpretive Data was last revised on 2017. Testing performed by: [address] [address] Blood 12/23/2024 9:47 AM CDT 12/23/2024 9:48 AM CDT us Ramy Aguilera MD LAB BLOOD ORDERABLES Final R esult [facility] [address] [facility] [place] [address] * (ABNORMAL) CBC with auto differential (12/23/2024 9:47 AM CDT) WBC 23.84(H) 3.80 - 9.90 K/cumm Comment:Testing performed by : [address] [address] Hgb 9.0(L) 11.9 - 15.5 g/dL JOSELYN VAZQUEZ Comment:Testing performed by : [address] [address] Hct 27.5(L) 35.6 - 45.5 % JOSELYN Comment:Testing performed by : [address] [address] Plt 111(L) 150 - 400 K/cumm JOSELYN Comment:Testing performed by : [address] [address] MPV 9.1 9.1 - 12.3 fL JOSELYN Comment:Testing performed by : [address], [address] RBC 3.02(L) 3.90 - 5.20 M/cumm JOSELYN Comment:Testing performed by : [address], [address] MCV 91.1 81.3 - 96.4 fL JOSELYN Comment:Testing performed by : [address], [address] MCH 29.8 27.1 - 33.3 pg JOSELYN Comment:Testing performed by : [address], [address] MCHC 32.7 32.3 - 35.7 g/dL JOSELYN Comment:Testing performed by : [address], [address] RDW CV 17.8(H) 11.1 - 14.9 % JOSELYN Comment:Testing performed by : [address], [address] RDW SD 57.9(H) 35.7 - 48.1 fL JOSELYN Comment:Testing performed by : [address], [address] NRBC abs 0.07(H) 0.00 - 0.01 K/cumm JOSELYN Comment:Testing performed by : [address] [address] ANC Prelim 2.06 1.50 - 6.50 K/cumm JOSELYN Comment: Interpretive Data The rapid ANC is a preliminary automated count and may vary from the final ANC (Neut Abs) reported in the WBC differential that follows. Current interpretive data was last revised 2024. Testing performed by: [address] [address] Blood 12/23/2024 9:47 AM CDT 12/23/2024 9:48 AM CDT us Ramy Aguilera MD LAB BLOOD ORDERABLES Edited Result - Final Performing Organization Address City/[facility] Co de Phone Number JOSELYN [facility] [place] [address] * hCG, blood, quantitative (12/23/2024 9:47 AM [...] last revised on 2023 Testing performed by: [address] [address] Blood 12/23/2024 9:47 AM CDT 12/23/2024 10:07 AM CDT us Ramy Aguilera MD LAB BLOOD ORDERABLES Final R esult Performing Organization Address City/[facility] Co de Phone Number JOSELYN [address] [place] [address] * Uric acid (12/23/2024 9:47 AM CDT) Uric acid 6.3 2.5 - 7.0 mg/dL Comment:Testing performed by : [address] [address] Blood 12/23/2024 9:47 AM CDT 12/23/2024 1:11 PM CDT us Ramy Aguilera MD LAB BLOOD ORDERABLES Final R esult JOSELNY [address] [facility] Department [place] [address] * (ABNORMAL) Comprehensive metabolic panel (12/23/2024 9:47 AM CDT) Sodium 139 135 - 145 mmol/L Comment:Testing performed by : [address] [address] Potassium, pl 3.2(L) 3.3 - 4.9 mmol/L JOSELYN Comment:Testing performed by : [address] [address] Chloride 97 97 - 110 mmol/L JOSELYN Comment:Testing performed by : [address] [address] CO2 27 22 - 32 mmol/L JOSELYN Comment:Testing performed by : [address] [address] Anion gap 15 2 - 15 mmol/L JOSELYN Comment:Testing performed by : [address] [address] BUN 5(L) 6 - 25 mg/dL JOSELYN Comment:Testing performed by : [address] [address] Creatinine 0.70 0.60 - 1.10 mg/dL JOSELYN Comment:Testing performed by : [address] [address] Glucose 90 70 - 199 mg/dL JOSELYN [...] was last revised 2022. Testing performed by: [address] [address] Calcium 9.4 8.5 - 10.3 mg/dL JOSELYN Comment:Testing performed by : [address] [address] Bilirubin, total 0.6 0.1 - 1.2 mg/dL JOSELYN Comment:Testing performed by : [address] [address] Protein, pl 5.7(L) 6.5 - 8.5 g/dL JOSELYN Comment:Testing performed by : [address] [address] Albumin 3.6 3.5 - 5.0 g/dL JOSELYN Comment:Testing performed by : [address] [address] Alk phos 242(H) 40 - 130 Units/L JOSELYN Comment:Testing performed by : [address] [address] ALT 7 7 - 45 Units/L JOSELYN Comment:Testing performed by : [facility], [address] [place] [address]., [address] AST 30 10 - 45 Units/L [facility] Comment:Testing performed by : [address] [address] Blood 12/23/2024 9:47 AM CDT 12/23/2024 9:48 AM CDT us Ramy Aguilera MD LAB BLOOD ORDERABLES Final R esult JOSELYN [address] [facility] Department of Laboratories [place], [place] [id number] * PET/CT FDG Skull to Thigh (12/15/2024 [...] increased in size and activity. A sales donor recruitment representative right axillary lymph node measuring 2.2 [...] previously. Bilateral inguinal hypermetabolic lymphadenopathy. The sales donor recruitment representative left inguinal lymph node measures 3.5 [...] Fabiano Santana M.D. LB: CHAITANYA Report ID: [id number] Reading Location: [id number] Procedure Note Fabiano Santana MD - 12/15/2024 [...] previously. Bilateral inguinal hypermetabolic lymphadenopathy. The sales donor recruitment representative left inguinal lymph node measures 3.5 [...] Fabiano Santana M.D. LB: CHAITANYA Report ID: [id number] Reading Location: [place] [address] us Paige Giordano AGRICULTURAL INSPECTOR IMG PET PROCEDURES Final Resu lt * POCT glucose (12/15/2024 8:33 AM CDT) [facility] Signature Glucose, POC 94 70 - 199 mg/dL Comment:Testing performed by : [facility], [address] [place] [address], [place]., [address] Blood 12/15/2024 8:33 AM CDT 12/15/2024 8:33 AM CDT Ramy Aguilera MD LAB POCT ORDERABLES - DEVICE Final Result JOSELYN [facility] [place] [address] * (ABNORMAL) Blood smear review (12/09/2024 9:12 AM CDT) RBC morphology Consistent with RBC Indicies Comment:Testing performed by : [address] [address] Platelet estimate Decreased(A) JOSELYN Comment:Testing performed by : [address] [address] Blood 12/09/2024 9:12 AM CDT 12/09/2024 9:14 AM CDT us Ramy Aguilera MD LAB BLOOD ORDERABLES Final R esult JOSELYN [facility] [place] [address] * eGFR (12/09/2024 9:12 AM CDT) eGFR [...] was last reviewed 2021. Testing performed by: [address] [address] Blood 12/09/2024 9:12 AM CDT 12/09/2024 9:14 AM CDT us Ramy Aguilera MD LAB BLOOD ORDERABLES Final R esult JOSELYN [address] [facility] Department [place] [address] * (ABNORMAL) Differential, auto (12/09/2024 9:12 AM CDT) Neutrophil abs 2.40 1.50 - 6.50 K/cumm Comment:Testing performed by : [address] [address] Imm gran abs 0.05 0.00 - 0.10 K/cumm JOSELYN Comment:Testing performed by : [address] [address] Lymphocyte abs 13.72(H) 0.80 - 3.30 K/cumm JOSELYN Comment:Testing performed by : [address] [address] Monocyte abs 0.28 0.20 - 0.80 K/cumm JOSELYN Comment:Testing performed by : [address] [address] Eosinophil abs 0.04 0.00 - 0.50 K/cumm JOSELYN Comment:Testing performed by : [address] [address] Basophil abs 0.06 0.00 - 0.10 K/cumm JOSELYN Comment:Testing performed by : [address] [address] Neutrophil pct 14.5 % JOSELYN Comment: Interpretive Data Percent cell count reference ranges are not reported, since discordance with absolute values may lead to misinterpretation of CBC data. Current Interpretive Data was last revised on 2017. Testing performed by: [address] [address] Imm gran pct 0.3 % JOSELYN Comment: Interpretive Data Percent cell count reference ranges are not reported, since discordance with absolute values may lead to misinterpretation of CBC data. Current Interpretive Data was last revised on 2017. Testing performed by: [address] [address] Lymphocyte pct 82.9 % [facility] Comment: Interpretive Data Percent cell count reference ranges are not reported, since discordance with absolute values may lead to misinterpretation of CBC data. Current Interpretive Data was last revised on 2017. Testing performed by: [address] [address] Monocyte pct 1.7 % [facility] Comment: Interpretive Data Percent cell count reference ranges are not reported, since discordance with absolute values may lead to misinterpretation of CBC data. Current Interpretive Data was last revised on 2017. Testing performed by: [address] [address] Eosinophil pct 0.2 % [facility] Comment: Interpretive Data Percent cell count reference ranges are not reported, since discordance with absolute values may lead to misinterpretation of CBC data. Current Interpretive Data was last revised on 2017. Testing performed by: [address] [address] Basophil pct 0.4 % [facility] Comment: Interpretive Data Percent cell count reference ranges are not reported, since discordance with absolute values may lead to misinterpretation of CBC data. Current Interpretive Data was last revised on 2017. Testing performed by: [address] [address] Blood 12/09/2024 9:12 AM CDT 12/09/2024 9:14 AM CDT us Ramy Aguilera MD LAB BLOOD ORDERABLES Final R esult JOSELYN [address] [facility] [place] [address] * (ABNORMAL) CBC with auto differential (12/09/2024 9:12 AM CDT) WBC 16.55(H) 3.80 - 9.90 K/cumm Comment:Testing performed by : [address] [place] [address] Hgb 8.8(L) 11.9 - 15.5 g/dL JOSELYN Comment:Testing performed by : [address] [address] Hct 26.9(L) 35.6 - 45.5 % CERSUSAN Comment:Testing performed by : [address], [address] Plt 92(L) 150 - 400 K/cumm JOSELYN Comment:Testing performed by : [address], [address] MPV 9.4 9.1 - 12.3 fL CERSUSAN Comment:Testing performed by : [address], [address] RBC 2.99(L) 3.90 - 5.20 M/cumm JOSELYN Comment:Testing performed by : [address], [address] MCV 90.0 81.3 - 96.4 fL JOSELYN Comment:Testing performed by : [address], [address] MCH 29.4 27.1 - 33.3 pg CERSUSAN Comment:Testing performed by : [address], [address] MCHC 32.7 32.3 - 35.7 g/dL JOSELYN Comment:Testing performed by : [address], [address] RDW CV 15.3(H) 11.1 - 14.9 % JOSELYN Comment:Testing performed by : [address], [address] RDW SD 48.4(H) 35.7 - 48.1 fL CERSUSAN Comment:Testing performed by : [address], [address] NRBC abs 0.00 0.00 - 0.01 K/cumm JOSELYN Comment:Testing performed by : [address], [address] ANC Prelim 2.40 1.50 - 6.50 K/cumm JOSELYN Comment: Interpretive Data The rapid ANC is a preliminary automated count and may vary from the final ANC (Neut Abs) reported in the WBC differential that follows. Current interpretive data was last revised 2024. Testing performed by: [address] [address] Blood 12/09/2024 9:12 AM CDT 12/09/2024 9:14 AM CDT Ramy Aguilera MD LAB BLOOD ORDERABLES Edited Result - Final Performing Organization Address [facility] de Phone Number [facility] [address] [facility] [place] [address] * hCG, blood, quantitative (12/09/2024 [...] last revised on 2023 Testing performed by: [address] [address] Blood 12/09/2024 9:12 AM CDT 12/09/2024 9:44 AM CDT Ramy Aguilera MD LAB BLOOD ORDERABLES Final R esult Performing Organization Address [facility] Co de Phone Number [facility] [address] [facility] [place] [address] * (ABNORMAL) Comprehensive metabolic panel (12/09/2024 9:12 AM CDT) Sodium 140 135 - 145 mmol/L Comment:Testing performed by : [address] [address] Potassium, pl 4.0 3.3 - 4.9 mmol/L JOSELYN VAZQUEZ Comment:Testing performed by : [address] [address] Chloride 102 97 - 110 mmol/L JOSELYN Comment:Testing performed by : [address], [place]., [address] CO2 27 22 - 32 mmol/L JOSELYN Comment:Testing performed by : [address], [place]., [address] Anion gap 11 2 - 15 mmol/L JOSELYN Comment:Testing performed by : [address], [place]., [address] BUN 5(L) 6 - 25 mg/dL [facility] Comment:Testing performed by : [address], [place]., [address] Creatinine 0.70 0.60 - 1.10 mg/dL [facility] Comment:Testing performed by : [address], [place]., [address] Glucose 96 70 - 199 mg/dL [facility] Comment: Interpretive Data Fasting glucose >/= 126 [...] was last revised 2022. Testing performed by: [address] [address] Calcium 9.2 8.5 - 10.3 mg/dL [facility] Comment:Testing performed by : [address] [address] Bilirubin, total 0.3 0.1 - 1.2 mg/dL JOSELYN Comment:Testing performed by : [address] [address] Protein, pl 5.6(L) 6.5 - 8.5 g/dL JOSELYN Comment:Testing performed by : [address] [address] Albumin 3.7 3.5 - 5.0 g/dL JOSELYN Comment:Testing performed by : [address] [address] Alk phos 192(H) 40 - 130 Units/L JOSELYN Comment:Testing performed by : [address] [address] ALT 13 7 - 45 Units/L JOSELYN Comment:Testing performed by : [address] [address] AST 20 10 - 45 Units/L JOSELYN Comment:Testing performed by : [address] [address] Blood 12/09/2024 9:12 AM CDT 12/09/2024 9:14 AM CDT us Ramy Aguilera MD LAB BLOOD ORDERABLES Final R esult JOSELYN [address] [facility] Department of Laboratories [place], [place] [id number] * (ABNORMAL) C. difficile testing Stool (11/18/2024 9:30 AM CDT) C. diff result Positive, DNA(A) Negative , DNA Comment:Testing performed by : [address] [address] C. diff interp Toxigenic Clostridioides (Clostridium) difficile detected. Analysis performed by detection of gene(s) encoding C. difficile toxin(s). The nucleic acid detection assay used is cleared by the [place] Food and Drug administration and its performance characteristics have been verified by the performing laboratory. JOSELYN Comment: NAP (O27) - presumptive negative Testing performed by: [address] [address] Stool 11/18/2024 9:30 AM CDT 11/18/2024 11:35 AM CDT Ramy Aguilera MD LAB MICROBIOLOGY - GENERAL O RDERABLES Final Result Performing Organization Address [facility] Co de Phone Number JOSELYN [address] [place] [address] * Cryptosporidium and Giardia antigen assay Stool (11/18/2024 9:30 AM CDT) Giardia Ag Negative Negative Comment:Testing performed by : [facility], [address] [place]., [address] Cryptosporidium Ag Negative Negative JOSELYN Comment: Interpretive data: Testing performed by the [facility] Microbiology Laboratory using an immunoassay that detects Cryptosporidium and Giardia antigens in stool specimens. If comprehensive examination for ova and parasites is required, please request Ova and Parasite Examination. Testing performed by: [facility], [address] [place]., [address] Stool 11/18/2024 9:30 AM CDT 11/18/2024 4:49 PM CDT Ramy Aguilera MD LAB MICROBIOLOGY - GENERAL O RDERABLES Final Result Performing Organization Address [facility] Co de Phone Number JOSELYN [address] [place] [address] * eGFR (11/18/2024 8:40 AM CDT) eGFR [...] was last reviewed 2021. Testing performed by: [address] [address] Blood 11/18/2024 8:40 AM CDT 11/18/2024 8:42 AM CDT us Ramy Aguilera MD LAB BLOOD ORDERABLES Final R esult [place] [id number] [facility] [place] [address] * (ABNORMAL) Differential, auto (11/18/2024 8:40 AM CDT) Neutrophil abs 3.60 1.50 - 6.50 K/cumm Comment:Testing performed by : [address] [address] Imm gran abs 0.05 0.00 - 0.10 K/cumm JOSELYN Comment:Testing performed by : [address] [address] Lymphocyte abs 13.41(H) 0.80 - 3.30 K/cumm JOSELYN Comment:Testing performed by : [address] [address] Monocyte abs 0.34 0.20 - 0.80 K/cumm JOSELYN Comment:Testing performed by : [address] [address] Eosinophil abs 0.03 0.00 - 0.50 K/cumm JOSELYN Comment:Testing performed by : [address] [address] Basophil abs 0.06 0.00 - 0.10 K/cumm JOSELYN Comment:Testing performed by : [address] [address] Neutrophil pct 20.6 % JOSELYN Comment: Interpretive Data Percent cell count reference ranges are not reported, since discordance with absolute values may lead to misinterpretation of CBC data. Current Interpretive Data was last revised on 2017. Testing performed by: [address] [address] Imm gran pct 0.3 % [facility] Comment: Interpretive Data Percent cell count reference ranges are not reported, since discordance with absolute values may lead to misinterpretation of CBC data. Current Interpretive Data was last revised on 2017. Testing performed by: [address] [address] Lymphocyte pct 76.7 % [facility] Comment: Interpretive Data Percent cell count reference ranges are not reported, since discordance with absolute values may lead to misinterpretation of CBC data. Current Interpretive Data was last revised on 2017. Testing performed by: [address] [address] Monocyte pct 1.9 % [facility] Comment: Interpretive Data Percent cell count reference ranges are not reported, since discordance with absolute values may lead to misinterpretation of CBC data. Current Interpretive Data was last revised on 2017. Testing performed by: [address] [address] Eosinophil pct 0.2 % [facility] Comment: Interpretive Data Percent cell count reference ranges are not reported, since discordance with absolute values may lead to misinterpretation of CBC data. Current Interpretive Data was last revised on 2017. Testing performed by: [address] [address] Basophil pct 0.3 % [facility] Comment: Interpretive Data Percent cell count reference ranges are not reported, since discordance with absolute values may lead to misinterpretation of CBC data. Current Interpretive Data was last revised on 2017. Testing performed by: [address] [address] Blood 11/18/2024 8:40 AM CDT 11/18/2024 8:42 AM CDT us Ramy Aguilera MD LAB BLOOD ORDERABLES Final R esult [facility] [address] [facility] [place] [address] * (ABNORMAL) CBC with auto differential (11/18/2024 8:40 AM CDT) [facility] WBC 17.49(H) 3.80 - 9.90 K/cumm Comment:Testing performed by : [address] [address] Hgb 9.8(L) 11.9 - 15.5 g/dL JOSELYN Comment:Testing performed by : [address], [address] Hct 29.7(L) 35.6 - 45.5 % JOSELYN Comment:Testing performed by : [address], [address] Plt 133(L) 150 - 400 K/cumm JOSELYN Comment:Testing performed by : [address], [address] MPV 10.0 9.1 - 12.3 fL JOSELYN Comment:Testing performed by : [address], [address] RBC 3.33(L) 3.90 - 5.20 M/cumm JOSELYN Comment:Testing performed by : [address] [address] MCV 89.2 81.3 - 96.4 fL JOSELYN Comment:Testing performed by : [address] [address] MCH 29.4 27.1 - 33.3 pg JOSELYN Comment:Testing performed by : [address], [address] MCHC 33.0 32.3 - 35.7 g/dL JOSELYN Comment:Testing performed by : [address], [address] RDW CV 13.8 11.1 - 14.9 % JOSELYN Comment:Testing performed by : [address], [address] RDW SD 44.3 35.7 - 48.1 fL JOSELYN Comment:Testing performed by : [address] [place] [address] NRBC abs 0.00 0.00 - 0.01 K/cumm JOSEYLN Comment:Testing performed by : [address] [address] ANC Prelim 3.60 1.50 - 6.50 K/cumm JOSELYN Comment: Interpretive Data The rapid ANC is a preliminary automated count and may vary from the final ANC (Neut Abs) reported in the WBC differential that follows. Current interpretive data was last revised 2024. Testing performed by: [address] [address] Morphologic Screen Results confirmed by manual morphology review. JOSELYN Comment:Testing performed by : [address] [address] Blood 11/18/2024 8:40 AM CDT 11/18/2024 8:42 AM CDT us Ramy Aguilera MD LAB BLOOD ORDERABLES Edited Result - Final Performing Organization Address [facility] Co de Phone Number JOSELYN [address] [facility] Department [place] [address] * hCG, blood, quantitative (11/18/2024 8:40 AM CDT) [facility] hCG, quant <5.0 0.0 - 5.0 IUnits/L Comment: Interpretive Data Male: < 5 IU/L Non- premenopausal Female: <5 IU/L The Cosmo hCG Beta Quant assay procedure was used. Results from different manufacturers or methods may not be comparable. Serial testing should be performed using the same method. Interpretive Data was last revised on 2023 Testing performed by: [address] [address] Blood 11/18/2024 8:40 AM CDT 11/18/2024 8:58 AM CDT us Ramy Aguilera MD LAB BLOOD ORDERABLES Final R esult Performing Organization Address [facility] Co de Phone Number JOSELYN [address] [facility] [place] [address] * (ABNORMAL) Comprehensive metabolic panel (11/18/2024 8:40 AM CDT) Sodium 139 135 - 145 mmol/L Comment:Testing performed by : [address], [place]., [address] Potassium, pl 3.2(L) 3.3 - 4.9 mmol/L JOSELYN Comment:Testing performed by : [address], [place]., [address] Chloride 100 97 - 110 mmol/L JOSELYN Comment:Testing performed by : [address] [address] CO2 27 22 - 32 mmol/L JOSELYN Comment:Testing performed by : [address], [place]., [address] Anion gap 12 2 - 15 mmol/L JOSELYN Comment:Testing performed by : [address] [address] BUN 6 6 - 25 mg/dL JOSELYN Comment:Testing performed by : [address], [place]., [address] Creatinine 0.80 0.60 - 1.10 mg/dL JOSELYN Comment:Testing performed by : [address] [address] Glucose 106 70 - 199 mg/dL JOSELYN [...] was last revised 2022. Testing performed by: [address] [address] Calcium 9.0 8.5 - 10.3 mg/dL JOSELYN Comment:Testing performed by : [facility], [address] [place] [address]., [address] Bilirubin, total 0.4 0.1 - 1.2 mg/dL JOSELYN Comment:Testing performed by : [address] [address] Protein, pl 6.0(L) 6.5 - 8.5 g/dL JOSELYN Comment:Testing performed by : [address] [address] Albumin 3.8 3.5 - 5.0 g/dL JOSELYN Comment:Testing performed by : [address] [address] Alk phos 169(H) 40 - 130 Units/L JOSELYN Comment:Testing performed by : [address] [address] ALT 16 7 - 45 Units/L JOSELYN Comment:Testing performed by : [address] [address] AST 25 10 - 45 Units/L JOSELYN Comment:Testing performed by : [address] [address] Blood 11/18/2024 8:40 AM CDT 11/18/2024 8:42 AM CDT us Ramy Aguilera MD LAB BLOOD ORDERABLES Final R esult Performing Organization Address City/State/[facility] Co de Phone Number [facility] [address] [facility] [place] [address] from Last 3 Months Additional Health Concerns Infection Onset Date Last Indicated C. difficile 11/18/2024 11/18/[address] [place] [address] [facility] Advance Directives For more information, please contact: [phone] * Full Code (Latest Code Status on File) Date Activated Date Inactivated Comments 09/22/2024 9:00 PM 09/24/2024 10:30 PM * Full Code Date Activated Date Inactivated Comments 09/17/2024 2:33 PM 09/17/2024 11:31 PM Care Teams Automation Clerk Relationship Specialty Start Date End Date Satya Fernandez MD [address] [place] [address] PCP - General Internal Medicine 10/21/24 Ramy Aguilera MD [address] [place] [address] Medical Oncologist/Obiee Architect Internal Medicine 09/23/24
--- OUTSIDE RECORDS SUMMARY | 2025-02-17 01:16 | XMS_ITS | Clinical Summary ---
Author Organization [facility] Address [address] [facility] [place] [address] Care Team Providers Care Technical Assistance Consultant Name Role Phone Unavailable Primary Care Provider Unavailabl e Source Comments [facility] Mineralist,non-owned Affiliates and Associated Physician Practices is amultiple site organization consisting of ambulatory clinics and hospital sitesin [place], [place], [place] and [place]. This disclosure is being madepursuant to the Care Everywhere program and may not contain all information available regarding this patient. Last updated 17.[facility] Mineralist Social History Tobacco Use Types Packs/Day Years [...] patient's age to complete this topic Insurance [facility]
--- OUTSIDE RECORDS SUMMARY | 2025-02-17 01:16 | XMS_ITS | Encounter Summary ---
Author Organization [facility] Address [address] [facility] [place] [address] Care Team Providers Care Slitter Scorer Cut Off Operator Name Role Phone Unavailable Primary Care Provider Unavailabl e Encounter Details Date Type Department Care Team (Late st Contact Info) Description 12/19/2022 Lab Requisition [facility] - Pathology Lab [address] [place] [address] Ishan Escobedo MD [address] [address] Illness, unspecified Social History Tobacco [...] CDT) Case Report Surgical Pathology Report Case: [id number] Authorizing Provider: Ishan Escobedo MD Collected: 12/18/2022 09:00 AM Ordering Location: [facility] Care Pathology Lab Received: 12/19/2022 01:25 PM [...] CD10 co-expression. Axillary lymph node, flow cytometry ([id number]): - [place] light chain restricted CD10+ B-cell population detected (~99% of overall events) Also received from [facility] is a peripheral smear showing circulating follicular lymphoma cells with occasional nuclear clefts. The peripheral blood is involved by follicular lymphoma. 12/19/2022 3:33 PM CDT [facility] PATHOLOGY LAB Clinical History Suspect lymphoma. 12/19/2022 3:33 PM [facility] PATHOLOGY LAB Materials Received Received are 4 slide(s) and 1 block labeled [id number] along with a copy of the outside pathology report. The materials originate from [facility], [address] [place] [address]. All original materials are returned to the referring institution, along with a copy of our final report. 12/19/2022 3:33 PM T [facility] PATHOLOGY LAB Pathologist Location at [facility] 12/19/2022 3:33 PM T [facility] PATHOLOGY LAB Disclaimer The performance characteristics of all immunohistochemical and indirect immunofluorescence stains (if any) cited in this report were determined by the Histopathology Laboratory of [facility]. Some of these tests were [...] pathologist. 12/19/2022 3:33 PM T [facility] PATHOLOGY LAB Embedded Images 12/19/2022 3:33 PM T [facility] PATHOLOGY LAB Pathology/Cytolo gy BIOPSY OF LYMPH NODE / Unknown 12/18/2022 9:00 AM CDT 12/19/2022 1:25 PM CDT us Ishan Escobedo MD LAB - PATHOLOGY/CYTOLOGY ORDERAB LES Final Result [facility] PATH[facility] LAB [address] [facility] [place]. [address] [phone] documented in this encounter Visit Diagnoses Diagnosis Illness, unspecified documented in this encounter
--- OUTSIDE RECORDS SUMMARY | 2025-02-17 01:16 | XMS_ITS | Encounter Summary ---
Author Organization [facility] Address [facility] [place] [address] Care Team Providers Care Group Burner Machine Name Role Phone None, Provider Primary Care Provider Marya ble Encounter Details Date Type Department Care Team (Late st Contact Info) Description 01/27/2025 Results Follow-Up [facility] Care [address] [place], [place] [id number] Thalia Hall FNP [address] [place], [place] [id number] Pathology Social History Tobacco Use Types Packs/Day [...] Sex Assigned at Female 02/09/2025 4:27 PM HEDIS MANAGER Legal Sex Female 7:16 PM CDT Gender Identity Not on file Sexual Orientation Not on file documented as of this encounter Plan of Treatment Not on file documented as of this encounter Visit Diagnoses Not on filedocumented in this encounter Care Teams Group Burner Machine Relationship Specialty Start Date End Date None, Provider, PCP - General UNKNOWN PHYSICIAN SPECIALTY 11/19/22 documented as of this encounter
--- OUTSIDE RECORDS SUMMARY | 2025-02-17 01:16 | XMS_ITS | Clinical Summary ---
Author Organization [facility] Address [address] [place] [address] Care Team Providers Care Private Duty Rn Name Role Phone None, Provider MD Primary [...] Department Care Team Description 02/09/2025 5:04 PM MANAGER COLLEGE - 02/09/2025 7:39 PM MANAGER COLLEGE Emergency [facility] [place] [address] Rishi Cote MD Medical Screening Discharge Disposition: Home or Self Care (Routine Discharge) 02/09/2025 Travel 01/27/2025 Results Follow-Up [facility] [address] [place] [address] Thalia Hall, BELLA Pathology 01/24/2025 11:15 PM CDT - 01/25/2025 1:40 AM CDT Emergency [facility] [place] [address] Koko Johnson MD,PHD Mouth Sores Discharge Disposition: [...] Sex Assigned at Female 02/09/2025 4:27 PM MANAGER COLLEGE Legal Sex Female 7:16 PM CDT Gender Identity Not on file Sexual Orientation Not on file Last Filed Vital Signs Vital Sign Reading Time Taken Comments Blood Pressure 109/64 02/09/2025 4:22 PM MANAGER COLLEGE Pulse 102 02/09/2025 4:22 PM MANAGER COLLEGE Temperature 37.6 C (99.7 F) 02/09/2025 4:22 PM MANAGER COLLEGE Respiratory Rate 20 02/09/2025 4:22 PM MANAGER COLLEGE Oxygen Saturation 99% 02/09/2025 4:22 PM MANAGER COLLEGE Inhaled Oxygen Concentration - - Weight 49.6 kg (109 lb 5.6 oz) 02/09/2025 4:22 P M MANAGER COLLEGE Height 160 cm (5' 3) 02/09/2025 4:22 PM MANAGER COLLEGE Body Mass Index 19.37 02/09/2025 4:22 PM MANAGER COLLEGE Plan of Treatment Health Maintenance Due Date [...] W REFLEX (SEPSIS) STAT 02/09/2025 5:42 PM MANAGER COLLEGE BASIC METABOLIC PANEL STAT 02/09/2025 5:42 PM MANAGER COLLEGE CBC W/DIFF AUTOMATED STAT 02/09/2025 5:42 PM MANAGER COLLEGE PATHOLOGY Routine 01/25/2025 12:00 AM CDT FLOW CYTOMETRY (LEUKEMIA/LYMPHOMA PANEL) Routine 01/24/2025 11:29 PM CDT HC HCG QL STAT 01/24/2025 11:29 PM CDT HC COMPREHENSIVE METABOLIC PANEL STAT 01/24/2025 11:29 PM CDT HC CBC AUTO W/AUTO DIFF STAT 01/24/2025 11:29 PM CDT from Last 3 Months Results * LACTIC ACID W REFLEX (SEPSIS) (02/09/2025 5:42 PM MANAGER COLLEGE) LACTIC ACID VENOUS 1.0 0.4 - 2.0 MMOL/L 02/09/2025 6:19 PM MANAGER COLLEGE [facility] 02/09/2025 5:42 PM MANAGER COLLEGE Ronit Haque E [employer] Final Resul t [facility] [address] [place] [address], [place] [phone] * BASIC METABOLIC PANEL (02/09/2025 5:42 PM MANAGER COLLEGE) GLUCOSE 86 70 - 99 MG/DL 02/09/2025 6:19 PM MANAGER COLLEGE [facility] BUN 11 7 - 18 MG/DL 02/09/2025 6:19 PM [facility] CREATININE S/P/B 0.72 0.55 - 1.02 MG/DL 02/09/2025 6:19 PM [facility] SODIUM S/P/B 140 136 - 145 MMOL/L 02/09/2025 6:19 PM [facility] POTASSIUM S/P/B 3.6 3.5 - 5.1 MMOL/L 02/09/2025 6:19 PM [facility] CHLORIDE S/P/B 104 97 - 115 MMOL/L 02/09/2025 6:19 PM [facility] CO2 31.1 21 - 32 MMOL/L 02/09/2025 6:19 PM [facility] CALCIUM S/P/B 9.1 8.5 - 10.1 MG/DL 02/09/2025 6:19 PM [facility] ANION GAP 4.9 2 - 10 MMOL/L 02/09/2025 6:19 PM [facility] BUN CREATININE RATIO 15.3 6 - 26 02/09/2025 6:19 PM [facility] GFR ESTIMATE >90 >90 ML/MIN/1.7 3 M2 02/09/2025 6:19 PM [facility] Comment: NOTE: eGFR is not calculated for patients <18 years of age or gender unknown. This is an estimated GFR calculation using the new CKD EPI creatinine equation without race and so does not require a correction factor for race. This estimated GFR should not be used for calculating drug doses. 02/09/2025 5:42 PM MANAGER COLLEGE us Ronit Haque E [employer] Final Resul t [facility] [address] [place] [address], [place] [phone] * (ABNORMAL) CBC W/DIFF AUTOMATED (02/09/2025 5:42 PM MANAGER COLLEGE) Only the most recent of2 resultswithin the time period is included. WBC 17.24(H) 4.5 - 11.0 x10'3/uL 02/09/2025 5:57 PM MANAGER COLLEGE [facility] RBC 2.90(L) 4.20 - 5.40 x10'6/uL 02/09/2025 5:57 PM [facility] HGB 8.5(L) 12.0 - 16.0 G/DL 02/09/2025 5:57 PM [facility] HCT 27.1(L) 38.0 - 48.0 % 02/09/2025 5:57 PM MANAGER COLLEGE [facility] MCV 93.4 81.0 - 99.0 FL 02/09/2025 5:57 PM MANAGER COLLEGE [facility] MCH 29.3 27.0 - 31.0 PG 02/09/2025 5:57 PM [facility] MCHC 31.4(L) 32.0 - 36.0 G/DL 02/09/2025 5:57 PM [facility] RDW 17.9(H) 11.5 - 14.5 % 02/09/2025 5:57 PM MANAGER COLLEGE [facility] PLT 142 130 - 400 x10'3/uL 02/09/2025 5:57 PM [facility] MPV 9.9 9.3 - 12.2 FL 02/09/2025 5:57 PM [facility] DIFFERENTIAL TYPE MANUAL DIFFERENTIAL 02/09/2025 6:25 PM MANAGER COLLEGE [facility] SEG NEUTROPHILS 10 % 6:25 PM MANAGER COLLEGE [facility] LYMPHOCYTES 89 % 02/09/2025 6:25 PM MANAGER COLLEGE [facility] MYELOCYTES 1 % 02/09/2025 6:25 PM MANAGER COLLEGE [facility] ABS. NEUTROPHILS 1.72(L) 1.80 - 7.70 x10'3/uL 02/09/2025 6:25 PM MANAGER COLLEGE [facility] ABS. LYMPHOCYTES 15.34(H) 1.00 - 4.80 x10'3/uL 02/09/2025 6:25 PM MANAGER COLLEGE [facility] ABS. MYELOCYTES 0.17(H) 0.00 x10'3/uL 02/09/2025 6:25 PM MANAGER COLLEGE [facility] RBC MORPHOLOGY RBC MORPHOLOGY APPEARS NORMAL. SLIDE REVIEWED. 02/09/2025 6:25 PM MANAGER COLLEGE [facility] PLT EST. ADEQUATE 02/09/2025 6:25 PM [facility] 02/09/2025 5:42 PM MANAGER COLLEGE us Ronit Haque E [employer] Final Resul t [facility] [address] [place] [address], * Pathology (01/25/2025 12:00 AM CDT) PATHOLOGY [facility] Department of Laboratory Medicine [address] [place] [address] , extension [phone] Pathology Report Addendum Peripheral Smear Report Name: SOHA MARRERO Specimen #: [id number] Age: 11 1990 (Age: 34) Location: [facility] Sex: F Procedure Date: 01/25/2025 Hospital #: [id number] Date Received: 01/25/2025 Date Reported: Provider: KOKO [...] and she is currently being followed at [facility] for follicular lymphoma. There is no morphologic [...] case was interpreted and signed out at [facility], [address] [place] [address]. Addenda/Procedures Addendum Date Ordered: 01/29/2025 Status: Signed Out Date Complete: 01/29/2025 By: LISY CALLEJAS Date Reported: 01/29/2025 Addendum Diagnosis Peripheral blood, smear review: -Circulating follicular lymphoma cells; see comment Addendum Comment This addendum is created to report on the flow cytometry results performed on the peripheral blood. Flow cytometry ([id number]) demonstrates a kappa-restricted CD10 positive B-cell lymphoproliferative disorder with an immunophenotype compatible with the patient's history of follicular lymphoma. The overall morphologic/immunoph enotypic findings support circulating follicular lymphoma cells. This addendum was interpreted and signed out at [place] [id number]. [facility] 01/25/2025 01/25/2025 9:4 7 AM CDT Comment:Peripheral blood us Koko Johnson MD,PHD PATHOLOGY/CYTOLOGY ORDERAB LES Final Result [facility] [address] [place] [address], [id number] * Flow Cytometry (01/24/2025 11:29 PM CDT) FLOW CYTOMETRY RESULTS [facility] Department of Laboratory Medicine [address] [place] [address] , extension [phone] Pathology Report Flow Cytometry Report Name: SOHA MARRERO Specimen #: [id number] Age: 11 1990 (Age: 34) Location: [facility] Sex: F Procedure Date: 01/24/2025 [facility] #: [id number] Date Received: 01/25/2025 Date Reported: 01/29/2025 Provider: KOKO JOHNSON MD PHD Source: Peripheral blood (See report [id number]) FINAL DIAGNOSIS: Peripheral blood, smear review: -Winifred-restricted CD10 positive B-cell lymphoproliferative disorder; see comment Diagnosis Comment: 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 Correlation with [id number] is recommended. Result: The sample is adequate with a viability of 98%. The B cells represent 77.8% of the lymphocytes, (89% of the total events analyzed) and coexpress CD19 dim, CD20 dim, CD10, and CD23 dim and are essentially negative for CD5 and CD200. Surface immunoglobulin light chains shows a Winifred:Lambda ratio of >997.0 (99.7:<0.1). The T-cells represent 11% of lymphocytes (9.8% of total cellularity) with a CD4:CD8 ratio of 1.7. Tested: CD45, CD19, CD20, Surface Winifred, Surface Lambda, CD5, CD10, CD38, CD34, CD14, CD117, CD4, CD8, CD3, CD7, CD56. This case was interpreted and signed out at [facility], [address] [place] [id number]. Electronically Signed Out LISY COTE MD This test was developed and its performance characteristics determined by [facility]. It has not been cleared or approved by the U.S. Food and Drug Administration. However, the use of Analyte Specific Reagents does not require FDA approval. [facility] 01/24/2025 11:2 9 PM CDT 01/25/2025 12:10 PM CDT Comment:Peripheral blood (Se e report [id number]) us Koko Johnson MD,PHD PATHOLOGY/CYTOLOGY ORDERAB LES Final Result [facility] [address] [place] [address], [id number] * COMPREHENSIVE METABOLIC PANEL (01/24/2025 11:29 PM CDT) GLUCOSE 88 70 - 99 MG/DL 01/25/2025 12:20 AM CDT [facility] BUN 17 7 - 18 MG/DL 01/25/2025 12:20 AM CDT [facility] CREATININE S/P/B 0.87 0.55 - 1.02 MG/DL 01/25/2025 12:20 AM CDT [facility] SODIUM S/P/B 138 136 - 145 MMOL/L 01/25/2025 12:20 AM CDT [facility] POTASSIUM S/P/B 4.1 3.5 - 5.1 MMOL/L 01/25/2025 12:20 AM CDT [facility] CHLORIDE S/P/B 101 97 - 115 MMOL/L 01/25/2025 12:20 AM CDT [facility] CO2 31.4 21 - 32 MMOL/L 01/25/2025 12:20 AM CDT [facility] CALCIUM S/P/B 9.1 8.5 - 10.1 MG/DL 01/25/2025 12:20 AM [facility] BILIRUBIN TOTAL S/P/B 0.4 0.2 - 1.2 MG/DL 01/25/2025 12:20 AM [facility] Comment: THIS ASSAY IS NOT RECOMMENDED FOR PATIENTS UNDERGOING TREATMENT WITH ELTROMBOPAG DUE TO THE POTENTIAL FOR FALSELY ELEVATED RESULTS. TOTAL PROTEIN S/P/B 6.4 6.4 - 8.2 G/DL 01/25/2025 12:20 AM [facility] ALBUMIN S/P/B 3.5 3.4 - 5.0 G/DL 01/25/2025 12:20 AM [facility] AST 22 15 - 37 U/L 01/25/2025 12:20 AM [facility] ALT 26 14 - 55 U/L 01/25/2025 12:20 AM [facility] ALKALINE PHOSPHATASE S/P/B 119 50 - 136 U/L 01/25/2025 12:20 AM [facility] ANION GAP 5.6 2 - 10 MMOL/L 01/25/2025 12:20 AM [facility] BUN CREATININE RATIO 19.5 6 - 26 01/25/2025 12:20 AM [facility] A/G RATIO 1.2 1.0 - 2.0 RATIO 01/25/2025 12:20 AM [facility] GFR ESTIMATE >90 >90 ML/MIN/1.7 3 M2 01/25/2025 12:20 AM [facility] Comment: NOTE: eGFR is not [...] Koko Johnson MD,PHD LABORATORY Final Resu lt [facility] [address] [place] [address], [place] [phone] * Qualitative HCG (01/24/2025 11:29 PM CDT) PREG SCREEN-SERUM NEGATIVE 01/25/2025 12:11 AM CDT [facility] 01/24/2025 11:2 9 PM CDT Koko Johnson MD,PHD LABORATORY Final Resu lt Performing Organization Address City/[facility]/ZIP Co de Phone Number [facility] [address] [place] [address], [place] [phone] from Last 3 Months Insurance [employer] Advance Directives Documents on File Type Date Recorded Patient Director Regulatory Agency Expl anation Legal Documents 05/21/2023 3:56 PM Care Teams Private Duty Rn Relationship Specialty Start Date End Date None, Provider, PCP - General UNKNOWN PHYSICIAN SPECIALTY 11/19/22
--- NOTE | 2025-02-17 01:31 | ED.ABDPAIN ---
HPI - Abdominal Pain General Chief Complaint: Abdominal Pain Stated Complaint: weakness, abd pain Time Seen by Provider: 02/17/25 00:59 Source: patient and EMS (radio report) Mode of arrival: EMS Limitations: no limitations History of Present Illness HPI narrative: Patient presents with report of abdominal pain and feeling weak and dehydrated. She is having abdominal distension. She is experiencing night sweats for the past 3 days though unable to say if she has had a fever. She denies any chills, nausea, or vomiting. Her last bowel movement was 3-4 days ago. History of lymphoma for which she states that she takes Oxy 10 mg for pain related to her cancer but that this is not helping her pain currently. Reports previous abdominal surgery related to an ectopic that is described somewhat as a laparotomy although the exact details are unclear. She reports undergoing chemotherapy through [facility] although missing the last 2 rounds due to anxiety. [place] prescribes her other non-pain and non-cancer meds. Denies any sick contacts or dysuria. She reports that she has occasionally been incontinent of urine due to the pain. She reports using marijuana. She reports that the pain will alternate between a burning and then a dull constant pain Related Data Home Medications ?Medication ?Instructions ?Recorded ?Confirmed ?Last Taken ?Type hydroxyzine HCl 25 mg tablet 25 mg PO TID 03/21/23 03/27/23 Unknown History methylprednisolone 4 mg tablets in mg 03/21/23 03/21/23 Unknown History a dose pack hydroxyzine HCl 25 mg tablet mg 09/30/23 Unknown History ibuprofen 600 mg tablet mg 09/30/23 Unknown History megestrol 400 mg/10 mL (40 mg/mL) mg 09/30/23 Unknown History oral suspension morphine 30 mg immediate release mg 09/30/23 Unknown History tablet ondansetron 4 mg disintegrating mg 09/30/23 Unknown History tablet pregabalin 50 mg capsule mg 09/30/23 Unknown History promethazine 25 mg rectal mg RECTAL 09/30/23 Unknown History suppository (Promethegan) valacyclovir 500 mg tablet mg 09/30/23 Unknown History Allergies Allergy/AdvReac Type Severity Reaction Status Date / Time azithromycin AdvReac Nausea Verified 01/25/25 20:51 codeine AdvReac Vomiting Verified 01/25/25 20:51 diphenhydramine (From AdvReac Jittery Verified 01/25/25 20:51 Benadryl) pecan nut AdvReac Nausea and Verified 01/25/25 20:51 Vomiting pregabalin AdvReac Unknown Verified 01/25/25 20:51 PMFSH Past Medical History Medical History Lymphoma Drug-induced psychotic disorder Atypical bipolar disorder Anxiety MRSA infection buttock and leg during last lengthy incarceration (2020) Ectopic Methamphetamine abuse, episodic History of heroin use Surgical History Surgical History History of breast surgery 2018 or 2018, due to 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 L Side. History of salpingo-oophorectomy Social History Social History Social History: Currently living with boyfriend. Full Code. Surrogate decision maker - Isaiah Beverly (step-dad), if unavailable then Marlene Tona (mom). Smoking packs per day: 1 Smoking cigarettes per day: 20.0 Years smoked: 11 Smoking pack-years: 11.00 Smoking status: Current every day smoker Tobacco type: cigarettes Alcohol intake: current Drinks per week: 1 Alcohol use details: social Substance use: former Substance use type: marijuana Other substance usage details: QUIT USING EARLY DEC 2022 D/T DIAGNOSIS & SURGERY Last use: last use of heroin-September 2014 Lack of Transportation: No Lack of Food: Never True Current Housing: I Have Housing Concerned About Future Housing: No Difficulty Paying Gas/Electric Bills: No Difficulty Paying for Meds: No Currently Unemployed: No Education: High School Diploma/GED Difficulty w/ Childcare or Family Care: No Living arrangements: with friend(s) Additional living arrangements comments: boyfriend Spiritual care concerns: No Exam Narrative: GENERAL: well-nourished, and in no acute distress. HEAD: Normocephalic, atraumatic. EYES: Non injected, non icteric ENT: Nares clear, no rhinorrhea or epistaxis. Gross auditory acuity intact. NECK: Supple. No meningismus. CHEST: Speaking in full sentences. No respiratory distress. HEART: Regular rate and rhythm. . ABDOMEN: Not peritoneal but Distended, firm abdomen. EXTREMITIES: Normal range of motion. No lower extremity edema. SKIN: Warm, dry, no rash. NEURO: No focal deficits. Alert and oriented. Answering questions. Following commands. Normal speech without aphasia or dysarthria. PSYCH: Normal mood and affect. Course Vital Signs Vital signs: Vital Signs Temperature 98.2 F 02/16/25 21:25 Pulse Rate 103 H 02/16/25 21:25 Respiratory Rate 20 02/16/25 21:25 Blood Pressure 106/64 02/16/25 21:25 Pulse Oximetry 100 02/16/25 21:25 Temperature 98.2 F 02/16/25 21:25 Pulse Rate 88 02/17/25 00:27 Respiratory Rate 20 02/17/25 00:27 Blood Pressure 106/68 02/17/25 00:27 Pulse Oximetry 98 02/17/25 00:27 MDM - Abdominal Pain MDM Narrative Medical decision making narrative: Patient presents with report abdominal pain. She states that she feels weak and dehydrated and is requesting pain medicine as well IV fluids. She is frustrated at the time she has had weight. She has a history of lymphoma and at baseline reports taking Oxy 10 mg but that this isn't helping. In the emergency department she is afebrile with vital signs notable initially for mild tachycardia improved on repeat assessment without interval intervention. Creatinine is elevated consistent with CLOVIS. 1L IV fluids ordered. She has a leukocytosis and thrombocytopenia. Notably, she also has an anemia which represents a fairly significant drop from previous. Discussed the recommendation to get a CT scan given her degree of abdominal distention and firmness but patient refusing/declining given concerns for the timing and transportation issues and delay in obtaining read due to stat rad. Urinalysis without marked ketonuria or signs of infection. test negative. Patient does appear to be distended I do have concerns. She was given a 0.5 IV push of Dilaudid. Patient reports continuing to have pain and requesting 4mg Dilaudid as she states that it is not uncommon that she get three dose of 4mg Dilaudad. I do not feel comfortable administering this dose as represents 20 mg morphine equivalent and even though patient has cancer and is not opiate naive, would prefer she be administered doses at regularly timed intervals and be done in conjunction with a further work up. She is noting that her boyfriend is in the car and angry at her, wants to go home and go to bed. She is given an additional 1mg Dilaudid and discharged. Per review of EMR, I do note her drug seeking behavior and it does not appear that she has received any pain medication let alone doses as she is stating in a very long time at this hospital due to her previous behaviors and concern of diversion when she had previously been prescribed medication outpatient. Differential Diagnosis Differential diagnosis: Likely abdominal pain, constipation, diverticulitis, endometriosis, small bowel obstruction and other (pelvic congestion; malignancy burden; ) Medical Records Attestation: I reviewed the patient's medical records. Medical records narrative: Presciprion Monitoring Program shows patient recieved Suboxone and Oxy Rx on 02/[address] Satya Fernandez Lab Data Attestation: I reviewed the patient's lab results. 02/16/25 21:52 02/16/25 21:52 Labs: Lab Results 02/16/25 02/16/25 02/16/25 Range/Units 21:42 21:52 22:18 WBC 15.3 H (4.5-10.0) K/mm3 RBC 2.54 L (4.2-5.4) M/mm3 Hgb 7.5 L D (12.0-15.0) g/dL Hct 24.5 L (37.0-47.0) % MCV 96.5 (80-100) fl MCH 29.5 (26-34) pg MCHC 30.6 L (32-36) g/dl RDW 18.1 H (11.5-14.5) % Plt Count 115 L (150-375) k/mm3 MPV 9.7 (7.4-10.4) fl Immature Gran % (Auto) 0.2 (0-0.5) % Neut % (Auto) 14.1 L (45.5-73.1) % Lymph % (Auto) 81.0 H (18.3-44.2) % [place] % (Auto) 3.8 (2.6-8.5) % Eos % (Auto) 0.5 (0-4.4) % Baso % (Auto) 0.4 (0.2-1.2) % Lymph # (Auto) 12.41 H (0.9-3.2) K/mm3 [place] # (Auto) 0.6 (0.1-0.6) K/mm3 Eos # (Auto) 0.1 (0-0.3) K/mm3 Baso # (Auto) 0.1 (0.0-0.1) K/mm3 Abs Immat Gran (auto) 0.03 (0.00-0.031) K/mm3 Absolute Neuts (auto) 2.2 (1.3-6.7) K/mm3 Absolute Nucleated RBC 0.000 (0.0-0.012) K/mm3 Nucleated RBC % 0.0 (0.0-0.2) % Sodium 133 L (137-145) mmol/L Potassium 5.0 (3.4-5.0) mmol/L Chloride 95 L (98-107) mmol/L Carbon Dioxide 32 H (22-30) mmol/L Anion Gap 6 (4-12) mmol/L BUN 21 H D (7-17) mg/dL Creatinine 1.06 H (0.7-1.0) mg/dL Estim Creat Clear Calc 55 ml/min Estimated GFR 60 (59 - ) Glucose 80 (65-110) mg/dL Calcium 10.1 (8.4-10.2) mg/dL Total Bilirubin 0.4 (0.2-1.3) mg/dL AST 36 (14-36) U/L ALT 20 (6-35) U/L Alkaline Phosphatase 130 H (38-126) U/L Total Creatine Kinase 51 (30-135) U/L Total Protein 6.7 (6.3-8.2) g/dL Albumin 4.1 (3.5-5.1) g/dL Lipase 21 L (23-300) U/L Urine Color Yellow (Yellow) Urine Appearance Clear (Clear) Urine pH 7.0 (5.0-9.0) Ur Specific [place] 1.013 (1.001-1.035) Urine Protein Negative (Negative) mg/dL Urine Glucose (UA) Negative (Negative) mg/dL Urine Ketones Negative (Negative) mg/dL Ur Blood (Man) Negative (Negative) Urine Nitrate Negative (Negative) Urine Bilirubin Negative (Negative) Urine Urobilinogen 1.0 (<2.0) mg/dL Leukocyte Esterase Rfl Negative (Negative) EMMANUELLE/UL POC Urine HCG, Qual Negative (Negative) Influenza A (RT-PCR) (Negative) Influenza B (RT-PCR) (Negative) RSV (RT-PCR) (Negative) SARS-CoV-2 RNA (RT-PCR) (Negative) 02/17/25 Range/Units 02:44 WBC (4.5-10.0) K/mm3 RBC (4.2-5.4) M/mm3 Hgb (12.0-15.0) g/dL Hct (37.0-47.0) % MCV (80-100) fl MCH (26-34) pg MCHC (32-36) g/dl RDW (11.5-14.5) % Plt Count (150-375) k/mm3 MPV (7.4-10.4) fl Immature Gran % (Auto) (0-0.5) % Neut % (Auto) (45.5-73.1) % Lymph % (Auto) (18.3-44.2) % [place] % (Auto) (2.6-8.5) % Eos % (Auto) (0-4.4) % Baso % (Auto) (0.2-1.2) % Lymph # (Auto) (0.9-3.2) K/mm3 [place] # (Auto) (0.1-0.6) K/mm3 Eos # (Auto) (0-0.3) K/mm3 Baso # (Auto) (0.0-0.1) K/mm3 Abs Immat Gran (auto) (0.00-0.031) K/mm3 Absolute Neuts (auto) (1.3-6.7) K/mm3 Absolute Nucleated RBC (0.0-0.012) K/mm3 Nucleated RBC % (0.0-0.2) % Sodium (137-145) mmol/L Potassium (3.4-5.0) mmol/L Chloride (98-107) mmol/L Carbon Dioxide (22-30) mmol/L Anion Gap (4-12) mmol/L BUN (7-17) mg/dL Creatinine (0.7-1.0) mg/dL Estim Creat Clear Calc ml/min Estimated GFR (59 - ) Glucose (65-110) mg/dL Calcium (8.4-10.2) mg/dL Total Bilirubin (0.2-1.3) mg/dL AST (14-36) U/L ALT (6-35) U/L Alkaline Phosphatase (38-126) U/L Total Creatine Kinase (30-135) U/L Total Protein (6.3-8.2) g/dL Albumin (3.5-5.1) g/dL Lipase (23-300) U/L Urine Color (Yellow) Urine Appearance (Clear) Urine pH (5.0-9.0) Ur Specific [place] (1.001-1.035) Urine Protein (Negative) mg/dL Urine Glucose (UA) (Negative) mg/dL Urine Ketones (Negative) mg/dL Ur Blood (Man) (Negative) Urine Nitrate (Negative) Urine Bilirubin (Negative) Urine Urobilinogen (<2.0) mg/dL Leukocyte Esterase Rfl (Negative) EMMANUELLE/UL POC Urine HCG, Qual (Negative) Influenza A (RT-PCR) Negative (Negative) Influenza B (RT-PCR) Negative (Negative) RSV (RT-PCR) Negative (Negative) SARS-CoV-2 RNA (RT-PCR) Negative (Negative) Imaging Data Attestation: I personally reviewed and interpreted this imaging study as follows: My impression: Significant stool burden especially in the right hemipelvis with questionable masslike features on my independent interpretation Radiologist's impression: ITS Impressions Abdomen X-Ray 02/17/25 07:50 IMPRESSION: 1. No acute abnormality. Stat Rad XR Abd 1 view:( results after patient discharged): Moderate colonic stool burden. No evidence of obstruction. Otherwise no acute findings. Discharge Plan Discharge Clinical Impression: Abdominal distension, CLOVIS (acute kidney injury), Leukocytosis, Thrombocytopenia, Normocytic anemia Constipation Qualifiers: Constipation type: unspecified constipation type Qualified Code(s): K59.00 - Constipation, unspecified Patient Disposition: Home Condition: Stable Instructions: Antibiotic Form, Constipation (DC), Acute Kidney Injury (DC), High Fiber Diet (ED), Leukocytosis (ED), Gas and Bloating (ED), Anemia (ED) Additional Instructions: Follow-up with your care team including PCP and oncologist. If you do not have a primary care physician the name of the doctors listed below. For your constipation recommend a combination of stool softener such as fiber/psyllium/Metamucil, supplementing with MiraLax, and as needed magnesium citrate as a laxative. Return if you intractable pain, intractable nausea/vomiting fever greater than 100.4? F, or you stop passing gas. Patient Language: Sami Prescriptions: New dicyclomine 10 mg capsule 10 mg PO BID PRN (Reason: abdominal pain) Qty: 20 0RF magnesium citrate Solution 150 ml PO DAILY PRN (Reason: constipation) Qty: 296 0RF psyllium husk [Metamucil] 0.4 gram capsule 0.4 g PO DAILY PRN (Reason: constipation) Qty: 30 0RF polyethylene glycol 3350 [Miralax] 17 gram/dose powder 17 g PO DAILY Qty: 119 0RF No Action oxycodone-acetaminophen [Percocet] 10-325 mg tablet 1 tablet PO Q4H PRN (Reason: pain) Qty: 5 0RF ondansetron 4 mg tablet,disintegrating 4 mg PO Q6H PRN (Reason: nausea and vomiting) Qty: 20 0RF hydroxyzine HCl 25 mg tablet 25 mg PO TID methylprednisolone 4 mg tablets,dose pack promethazine 25 mg suppository 25 mg RECTAL Q6H PRN (Reason: nausea and vomiting) Qty: 12 0RF ondansetron 4 mg tablet,disintegrating 4 mg PO Q8H PRN (Reason: nausea and vomiting) Qty: 30 0RF oxycodone-acetaminophen [Percocet] 10-325 mg tablet 1 tablet PO Q6H PRN (Reason: pain) Qty: 20 0RF ondansetron 4 mg tablet,disintegrating 4 mg PO Q8H PRN (Reason: nausea and vomiting) Qty: 10 0RF potassium chloride 20 mEq/15 mL liquid 20 meq PO DAILY 7 Days Qty: 105 0RF promethazine 25 mg suppository 25 mg RECTAL Q6H PRN (Reason: nausea and vomiting) Qty: 12 0RF megestrol 400 mg/10 mL (40 mg/mL) suspension promethazine [Promethegan] 25 mg suppository RECTAL valacyclovir 500 mg tablet morphine 30 mg tablet hydroxyzine HCl 25 mg tablet ibuprofen 600 mg tablet ondansetron 4 mg tablet,disintegrating pregabalin 50 mg capsule phenazopyridine [Pyridium] 200 mg tablet 200 mg PO TID Qty: 6 0RF amoxicillin-pot clavulanate 875-125 mg tablet 1 tablet PO Q12H Qty: 14 0RF Follow-up/Referrals: PHYSICIAN,CULVERT INSTALLER [Primary Care Provider, Internal Medicine] Sterling Patricio MD [Physician, Family Practice] Stand Alone Forms: Work/School Release IP Time of Disposition: 02:55
[2025-02-17 02:02] LABS: Creatine Kinase 51 U/L (30-135)
[2025-02-17] MEDS: SODIUM CHLORIDE 0.9% IV 1,000 ML 999 ML IV CONT (02:05)
[2025-02-17] MEDS: HYDROmorphone HCL INJ (*CRX) 1 MG/ML SYR 0.5 MG IV PUSH (02:06)
[2025-02-17] MEDS: DICYCLOMINE HCL 10 MG CAPSULE PO (02:07)
[2025-02-17] MEDS: HYDROmorphone HCL INJ (*CRX) 1 MG/ML SYR IV PUSH (03:05)
--- NOTE | 2025-02-17 03:15 | PC.NURSE ---
pt refused discharge vitals and to wait for reeval of pain. have to go no distress.
--- NOTE | 2025-02-17 03:16 | PC.NURSE ---
pt refused lactic blood work. ed dr bruce.
[2025-02-17 03:31] LABS: Influenza A QL RT-PCR Negative (Negative); Influenza B QL RT-PCR Negative (Negative); RSV RNA, RT-PCR Negative (Negative); SARS-CoV-2 RNA PCR Negative (Negative)
== END 2025-02-17 03:19 | disposition home or self-care (01) ==
PROVIDERS: Emergency Provider Student in an Organized Health Care Education/Training Program
DX: R14.0 Abdominal distension (gaseous) (principal); N17.9 Acute kidney failure, unspecified; C85.90 Non-Hodgkin lymphoma, unspecified, unspecified site; D72.829 Elevated white blood cell count, unspecified; D69.6 Thrombocytopenia, unspecified; D64.9 Anemia, unspecified; K59.00 Constipation, unspecified; Z79.891 Long term (current) use of opiate analgesic; F31.9 Bipolar disorder, unspecified; F17.210 Nicotine dependence, cigarettes, uncomplicated; Z20.822 Contact with and (suspected) exposure to COVID-19
CPT/HCPCS: 36415; 74018; 80053; 81003; 81025; 82550; 83690; 85025; 87637; 96361; 96374; 96375; 99284; A9270; J1171; J7030

== ENCOUNTER 2025-02-20 21:26 | Emergency (ER) | payer OTHER, SELFPAY ==
--- OUTSIDE RECORDS SUMMARY | 2024-10-11 08:40 | XMS_ITS ---
Author Organization [facility] Address [address] [place] [address] Care Team Providers Care Tobacco Grader Name Role Phone Satya Fernandez Primary Care Provider [phone] REASON FOR VISIT 2 Week F/U Social History Sex Assigned At : Social History Observation Description Sex Assigned At Female Encounters Encounter Location Date Provider Diagnosis [address] [place] [address] 10/11/2024 Satya Fenrandez Plan Of Treatment No Information Progress Notes * Soha MARRERO RDOB:[birth year] (35 yo F)Acc No.[id number]:10/11/2024 UNLOCKED PROGRESS NOTE Progress Notes Patient: Sissy OCAMPO Soha Arredondo Provider: Devin Fernandez :1990 A ge:34 Y S ex:Female Date:10/11/2024 Address:[address] [place] [address] Structured Data:Is there a n cassidy you would prefer we call you? (Nombre que prefiere usar) : No Subjective: * Chief Complaints: * 1 . 2 Week F/U. * Medical History: Objective: * Vitals: Assessment: Plan: * Treatment: * * Electronic signature of Kar Fernandez , [id number] on 02/21/2025 at 01:23 AM RELIGIOUS HEALER Sign off status: Pending * Provider: Devin Fernandez Date: 0 10/11/2024 Generated for Cassie valero/Claire/Coreenitting on: 1 04/23/2024 01:23 AM RELIGIOUS HEALER
[2025-02-20 21:37] VITALS: BP 108/89; PULSE 128; RESP 20; TEMP 36.8; O2SAT 100
--- NOTE | 2025-02-20 23:46 | PC.NURSE ---
Patient ambulating with steady unassisted gait multiple times outside to smoke real quick. Patient ambulates back inside to waiting room with steady unassisted gait.
--- NOTE | 2025-02-21 01:12 | PC.NURSE ---
Patient ambulated past desk with steady gait and stated I am leaving! Patient left before risks of leaving before being seen by a provider and benefits of staying for evaluation. Patient marked as left without being seen, triaged.
--- OUTSIDE RECORDS SUMMARY | 2025-02-21 01:23 | XMS_ITS ---
Author Organization [facility] Address [address] [place] [address] Phone Care Team Providers Care Variety Performer Name Role Phone Gabriel Salmeron MD Unavailable [phone] Brooks Sosa MD Unavailable [phone] Provider, None Primary Care Provider UnavailKervin Rubi MD Unavailable [facility] Status:Enrolled (Active) Start date:05/05/2024 Enrollment date:05/05/2024 Related social drivers of health:Social Connections, Tobacco Use, Depression, Stress, Physical Activity, Utilities Continued Care and Services Coordination
--- OUTSIDE RECORDS SUMMARY | 2025-02-21 01:23 | XMS_ITS ---
Author Organization [facility] [address] [facility] Address [address] [place] [address] Care Team Providers Care Receiving Checker Name Role Phone Ramy Aguilera MD Unavailable [phone] Satya Fernandez MD Primary Care Provider [phone] Active Problems Problem Noted Date Diagnosed Date [...] - Plan to discharge patient with outpatient [facility] follow-up on 09/30/24. Assessment [...]
--- OUTSIDE RECORDS SUMMARY | 2025-02-21 01:23 | XMS_ITS ---
Author Organization [facility] Address [address] [place] [address] Phone Care Team Providers Care [employer] Supervisor Name Role Phone Gabriel Salmeron MD Unavailable [phone] Brooks Sosa MD Unavailable [phone] Provider, None Primary Care Provider UnavailKervin Rubi [...] current use Anxiety 05/07/2023 Under care of [facility] service 05/07/2023 Overview (05/07/2023): Two previous stays at [facility] Child living with her parents Current Treatment [...] 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 Hx of [facility] time
--- OUTSIDE RECORDS SUMMARY | 2025-02-21 01:24 | XMS_ITS | Clinical Summary ---
Author Organization [facility] Address [address] [place] [address] Care Team Providers Care Latex Caster Name Role Phone None, Provider MD Primary [...] Department Care Team Description 02/09/2025 5:04 PM [facility] - 02/09/2025 7:39 PM [facility] Emergency [facility] [place] [address] Rishi Cote MD Medical Screening Discharge Disposition: Home or Self Care (Routine Discharge) 02/09/2025 Travel 01/27/2025 Results Follow-Up [facility] [address] [place] [address] Thalia Hall, BELLA Pathology 01/24/2025 11:15 PM CDT - 01/25/2025 1:40 AM CDT Emergency [facility] [place] [address] Koko Johnson MD,PHD Mouth Sores Discharge Disposition: [...] Sex Assigned at Female 02/09/2025 4:27 PM [facility] Legal Sex Female 7:16 PM CDT Gender Identity Not on file Sexual Orientation Not on file Last Filed Vital Signs Vital Sign Reading Time Taken Comments Blood Pressure 109/64 02/09/2025 4:22 PM [facility] Pulse 102 02/09/2025 4:22 PM [facility] Temperature 37.6 C (99.7 F) 02/09/2025 4:22 PM [facility] Respiratory Rate 20 02/09/2025 4:22 PM [facility] Oxygen Saturation 99% 02/09/2025 4:22 PM [facility] Inhaled Oxygen Concentration - - Weight 49.6 kg (109 lb 5.6 oz) 02/09/2025 4:22 P M [facility] Height 160 cm (5' 3) 02/09/2025 4:22 PM [facility] Body Mass Index 19.37 02/09/2025 4:22 PM [facility] Plan of Treatment Health Maintenance Due Date [...] W REFLEX (SEPSIS) STAT 02/09/2025 5:42 PM [facility] BASIC METABOLIC PANEL STAT 02/09/2025 5:42 PM [facility] CBC W/DIFF AUTOMATED STAT 02/09/2025 5:42 PM [facility] PATHOLOGY Routine 01/25/2025 12:00 AM CDT FLOW CYTOMETRY (LEUKEMIA/LYMPHOMA PANEL) Routine 01/24/2025 11:29 PM CDT HC HCG QL STAT 01/24/2025 11:29 PM CDT HC COMPREHENSIVE METABOLIC PANEL STAT 01/24/2025 11:29 PM CDT HC CBC AUTO W/AUTO DIFF STAT 01/24/2025 11:29 PM CDT from Last 3 Months Results * LACTIC ACID W REFLEX (SEPSIS) (02/09/2025 5:42 PM [facility] SPR[facility]ER) LACTIC ACID VENOUS 1.0 0.4 - 2.0 MMOL/L 02/09/2025 6:19 PM [facility] 02/09/2025 5:42 PM [facility] Ronit Haque CAUSTIC STRENGTH INSPECTOR LABORATORY Final Resul t [facility] [address] [place] [address], [place] [phone] * BASIC METABOLIC PANEL (02/09/2025 5:42 PM [facility]) GLUCOSE 86 70 - 99 MG/DL 02/09/2025 6:19 PM [facility] BUN 11 7 - 18 MG/DL 02/09/2025 6:19 PM [facility] CREATININE S/P/B 0.72 0.55 - 1.02 MG/DL 02/09/2025 6:19 PM [facility] SODIUM S/P/B 140 136 - 145 MMOL/L 02/09/2025 6:19 PM [facility] POTASSIUM S/P/B 3.6 3.5 - 5.1 MMOL/L 02/09/2025 6:19 PM [facility] CHLORIDE S/P/B 104 97 - 115 MMOL/L 02/09/2025 6:19 PM [facility] CO2 31.1 21 - 32 MMOL/L 02/09/2025 6:19 PM [facility] CALCIUM S/P/B 9.1 8.5 - 10.1 MG/DL 02/09/2025 6:19 PM [facility] ANION GAP 4.9 2 - 10 MMOL/L 02/09/2025 6:19 PM [facility] BUN CREATININE RATIO 15.3 6 - 26 02/09/2025 6:19 PM [facility] GFR ESTIMATE >90 >90 ML/MIN/1.7 3 M2 02/09/2025 6:19 PM [facility] Comment: NOTE: eGFR is not calculated for patients <18 years of age or gender unknown. This is an estimated GFR calculation using the new CKD EPI creatinine equation without race and so does not require a correction factor for race. This estimated GFR should not be used for calculating drug doses. 02/09/2025 5:42 PM [facility]ER us Ronit Haque CA[employer]IC STRENGTH INSPECTOR LABORATORY Final Resul t [facility] [address] [place] [address], [place] [phone] * (ABNORMAL) CBC W/DIFF AUTOMATED (02/09/2025 5:42 PM [facility]) Only the most recent of2 resultswithin the time period is included. WBC 17.24(H) 4.5 - 11.0 x10'3/uL 02/09/2025 5:57 PM [facility] RBC 2.90(L) 4.20 - 5.40 x10'6/uL 02/09/2025 5:57 PM [facility] HGB 8.5(L) 12.0 - 16.0 G/DL 02/09/2025 5:57 PM [facility] HCT 27.1(L) 38.0 - 48.0 % 02/09/2025 5:57 PM [facility] MCV 93.4 81.0 - 99.0 FL 02/09/2025 5:57 PM [facility] MCH 29.3 27.0 - 31.0 PG 02/09/2025 5:57 PM [facility] MCHC 31.4(L) 32.0 - 36.0 G/DL 02/09/2025 5:57 PM [facility] RDW 17.9(H) 11.5 - 14.5 % 02/09/2025 5:57 PM [facility] PLT 142 130 - 400 x10'3/uL 02/09/2025 5:57 PM [facility] MPV 9.9 9.3 - 12.2 FL 02/09/2025 5:57 PM [facility] DIFFERENTIAL TYPE MANUAL DIFFERENTIAL 02/09/2025 6:25 PM [facility] SEG NEUTROPHILS 10 % 6:25 PM [facility] LYMPHOCYTES 89 % 02/09/2025 6:25 PM [facility] MYELOCYTES 1 % 02/09/2025 6:25 PM [facility] ABS. NEUTROPHILS 1.72(L) 1.80 - 7.70 x10'3/uL 02/09/2025 6:25 PM [facility] ABS. LYMPHOCYTES 15.34(H) 1.00 - 4.80 x10'3/uL 02/09/2025 6:25 PM [facility] ABS. MYELOCYTES 0.17(H) 0.00 x10'3/uL 02/09/2025 6:25 PM [facility] RBC MORPHOLOGY RBC MORPHOLOGY APPEARS NORMAL. SLIDE REVIEWED. 02/09/2025 6:25 PM [facility] PLT EST. ADEQUATE 02/09/2025 6:25 PM [facility] 02/09/2025 5:42 PM [facility] us Ronit Haque CA[employer] STRENGTH INSPECTOR LABORATORY Final Resul t [facility] [address] [place] [address], * Pathology (01/25/2025 12:00 AM CDT) PATHOLOGY [facility] Department of Laboratory Medicine [address] [place] [address] , extension [phone] Pathology Report Addendum Peripheral Smear Report Name: SOHA MARRERO Specimen #: [id number] Age: 11 1990 (Age: 34) Location: [facility] Sex: F Procedure Date: 01/25/2025 Hospital #: [id number] Date Received: 01/25/2025 Date Reported: Provider: KOKO [...] and she is currently being followed at [facility] for follicular lymphoma. There is no morphologic [...] case was interpreted and signed out at [facility], [address] [place] [address]. Addenda/Procedures Addendum Date Ordered: 01/29/2025 Status: Signed Out Date Complete: 01/29/2025 By: LISY CALLEJAS Date Reported: 01/29/2025 Addendum Diagnosis Peripheral blood, smear review: -Circulating follicular lymphoma cells; see comment Addendum Comment This addendum is created to report on the flow cytometry results performed on the peripheral blood. Flow cytometry ([id number]) demonstrates a kappa-restricted CD10 positive B-cell lymphoproliferative disorder with an immunophenotype compatible with the patient's history of follicular lymphoma. The overall morphologic/immunoph enotypic findings support circulating follicular lymphoma cells. This addendum was interpreted and signed out at [place] [id number]. [facility] 01/25/2025 01/25/2025 9:4 7 AM CDT Comment:Peripheral blood us Koko Johnson MD,PHD PATHOLOGY/CYTOLOGY ORDERAB LES Final Result [facility] [address] [place] [address], [phone] * Flow Cytometry (01/24/2025 11:29 PM CDT) FLOW CYTOMETRY RESULTS [facility] Department of Laboratory Medicine [address] [place] [address] , extension [phone] Pathology Report Flow Cytometry Report Name: SOHA MARRERO Specimen #: [id number] Age: 11 1990 (Age: 34) Location: [facility] Sex: F Procedure Date: 01/24/2025 [facility] #: [id number] Date Received: 01/25/2025 Date Reported: 01/29/2025 Provider: KOKO JOHNSON MD PHD Source: Peripheral blood (See report [id number]) FINAL DIAGNOSIS: Peripheral blood, smear review: -[place]-restricted CD10 positive B-cell lymphoproliferative disorder; see comment Diagnosis Comment: 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 Correlation with [id number] is recommended. Result: The sample is adequate with a viability of 98%. The B cells represent 77.8% of the lymphocytes, (89% of the total events analyzed) and coexpress CD19 dim, CD20 dim, CD10, and CD23 dim and are essentially negative for CD5 and CD200. Surface immunoglobulin light chains shows a [place]:Lambda ratio of >997.0 (99.7:<0.1). The T-cells represent 11% of lymphocytes (9.8% of total cellularity) with a CD4:CD8 ratio of 1.7. Tested: CD45, CD19, CD20, Surface [place], Surface Lambda, CD5, CD10, CD38, CD34, CD14, CD117, CD4, CD8, CD3, CD7, CD56. This case was interpreted and signed out at [facility], [address] [place] [id number]. Electronically Signed Out LISY COTE MD This test was developed and its performance characteristics determined by [facility]. It has not been cleared or approved by the U.S. Food and Drug Administration. However, the use of Analyte Specific Reagents does not require FDA approval. [facility] 01/24/2025 11:2 9 PM CDT 01/25/2025 12:10 PM CDT Comment:Peripheral blood (Se e report [id number]) us Koko Johnson MD,PHD PATHOLOGY/CYTOLOGY ORDERAB LES Final Result [facility] [address] [place] [address], [phone] * COMPREHENSIVE METABOLIC PANEL (01/24/2025 11:29 PM CDT) GLUCOSE 88 70 - 99 MG/DL 01/25/2025 12:20 AM CDT [facility] BUN 17 7 - 18 MG/DL 01/25/2025 12:20 AM CDT [facility] CREATININE S/P/B 0.87 0.55 - 1.02 MG/DL 01/25/2025 12:20 AM CDT [facility] SODIUM S/P/B 138 136 - 145 MMOL/L 01/25/2025 12:20 AM CDT [facility] POTASSIUM S/P/B 4.1 3.5 - 5.1 MMOL/L 01/25/2025 12:20 AM CDT [facility] CHLORIDE S/P/B 101 97 - 115 MMOL/L 01/25/2025 12:20 AM CDT [facility] CO2 31.4 21 - 32 MMOL/L 01/25/2025 12:20 AM CDT [facility] CALCIUM S/P/B 9.1 8.5 - 10.1 MG/DL 01/25/2025 12:20 AM [facility] BILIRUBIN TOTAL S/P/B 0.4 0.2 - 1.2 MG/DL 01/25/2025 12:20 AM [facility] Comment: THIS ASSAY IS NOT RECOMMENDED FOR PATIENTS UNDERGOING TREATMENT WITH ELTROMBOPAG DUE TO THE POTENTIAL FOR FALSELY ELEVATED RESULTS. TOTAL PROTEIN S/P/B 6.4 6.4 - 8.2 G/DL 01/25/2025 12:20 AM [facility] ALBUMIN S/P/B 3.5 3.4 - 5.0 G/DL 01/25/2025 12:20 AM [facility] AST 22 15 - 37 U/L 01/25/2025 12:20 AM [facility] ALT 26 14 - 55 U/L 01/25/2025 12:20 AM [facility] ALKALINE PHOSPHATASE S/P/B 119 50 - 136 U/L 01/25/2025 12:20 AM [facility] ANION GAP 5.6 2 - 10 MMOL/L 01/25/2025 12:20 AM [facility] BUN CREATININE RATIO 19.5 6 - 26 01/25/2025 12:20 AM [facility] A/G RATIO 1.2 1.0 - 2.0 RATIO 01/25/2025 12:20 AM [facility] GFR ESTIMATE >90 >90 ML/MIN/1.7 3 M2 01/25/2025 12:20 AM [facility] Comment: NOTE: eGFR is not [...] Koko Johnson MD,PHD LABORATORY Final Resu lt [facility] [address] [place] [address], [place] [phone] * Qualitative HCG (01/24/2025 11:29 PM CDT) PREG SCREEN-SERUM NEGATIVE 01/25/2025 12:11 AM CDT [facility] 01/24/2025 11:2 9 PM CDT Koko Johnson MD,PHD LABORATORY Final Resu lt Performing Organization Address City/[facility]/ZIP Co de Phone Number [facility] [address] [place] [address], [place] [phone] from Last 3 Months Insurance [employer] Advance Directives Documents on File Type Date Recorded Patient Human Resources Supervisor Expl anation Legal Documents 05/21/2023 3:56 PM Care Teams Latex Caster Relationship Specialty Start Date End Date None, Provider, PCP - General UNKNOWN PHYSICIAN SPECIALTY 11/19/22
--- OUTSIDE RECORDS SUMMARY | 2025-02-21 01:24 | XMS_ITS | Data Portability ---
Author Organization [facility] Address [address] [place] [address] Assessment Encounter Date Assessment Date Assessment LastModified by Organization Details LastModified Time 07/29/2024 07/29/2024 Annual gynecological exam performed. Patient will come back in a year unless there are new symptoms. [email or web address] Not available 07/29/2024 11:38:03 Plan of Treatment Reminders Order Date Submit Date Provider Last Modified By Organization Details Last Modified Time Details Appointments None recorded. Lab hbcab (hepatitis B core Ab) igm, serum 2024 025 [facility] (Lab), [address] [place], [address], 5 11:25:14 HBsAg (hepatitis B surface Ag), serum 2024 025 [facility] (Lab), [address] [place], [address], 5 11:25:14 hepatitis C virus Ab, serum 2024 025 [facility] (Lab), [address] [place], [address], 5 11:25:13 HIV 1+2 AB + HIV 1 p24 Ag, qualitative immunoassay , serum 2024 025 [facility] (Lab), [address] [place], [address], 5 11:25:13 RPR (rapid plasma reagin), serum 2024 025 [facility] (Lab), [address], [place], [address], 5 11:25:14 pap, IG + HR HPV - HPV regardless but if HPV is positive need subtyping 16,18/45 add STI to pap GC/CT/Trich 2024 025 [facility] (Lab), [address], [place], [address], 5 13:59:16 culture, urine 2024 [facility] (Lab), [address], [place], [address], 5 13:59:18 Referral None recorded. Procedures None recorded. Surgeries None recorded. Imaging MAMMO, diagnostic, digital, bilateral 2024 [facility], [address], [place], [address], 05:01:54 US, breast, bilateral, complete 2024 [facility], [address], [place], [address], 05:01:53 Medication Orders None recorded. Patient TargetsNo [...] of expos ure to HCV. Not Available [facility] (Lab) [address], [place], [address], 07/30/2024 11:25:13 07/30/19 25 07/29/2024 HIV 1/2 ANTIG EN/AN TIBOD Y, REFLE X CONFI RMATI ON HIV antigen/anti body Nonrea ctive nonrea ctive HIV-1 antig en and HIV-1 /HIV- 2 antib odies were not detec gabriella. No labor atory evide nce of HIV infec tion. Not Available [facility] ([facility]) [address], [place], [address], 07/30/2024 11:25:13 07/30/19 25 07/29/2024 HEPAT ITIS B SURFA CE ANTIG EN hepatitis B surface antigen Non-re active non-re active This assay was perfo rmed using [employer] ratio n reage nts and test kits. Value s obtai maxim with other assay metho ds or kits canno t be used inter caro eably . Not Available [facility] (Lab) [address], [place], [address], 07/30/2024 11:25:14 07/30/19 25 07/29/2024 RPR SCREE N, REFLE X TITER /CONF IRMAT ION RPR qualitative Nonrea ctive nonrea ctive Not Available [facility] (Lab) [address], [place], [address], 07/30/2024 11:25:14 07/30/19 25 07/29/2024 HEPAT ITIS B CORE, IGM hepatitis B core IgM antibody Non-re active non-re active IgM anti- HBc not detec gabriella. Does not exclu de the possi bilit y of expos ure to or infec tion with HBV. Test Perfo rmed by: Adrian daniels rn, [facility] [address] [place] [address] Not Available [facility] (Lab) [address], [place], [address], 07/30/2024 11:25:14 07/30/19 25 07/29/2024 IMAGE GUIDE [...] epith elial Naty muñiz or Rinku jain ([facility]) . Elect apple velazquez d [...] as clini nati zamarripa nted. Not Available [facility] ([facility]) [address], [place], [address], 08/03/2024 13:59:16 07/30/19 25 07/29/2024 TRICH OMONA S VAGIN CHALO (RRNA ) trichomonas vaginalis ribosomal RNA (rrna) Negati ve negati ve Not Available [facility] ([facility]) [address] [place], [address], 08/03/2024 13:59:17 07/30/19 25 07/29/2024 CT/GC (FAREED) , THINP REP VIAL chlamydia trachomatis, PCR Negati ve negati ve Not Available [facility] ([facility]) [address], [place], [address], 08/03/2024 13:59:17 07/30/19 25 07/29/2024 CT/GC (FAREED) , THINP REP VIAL neisseria gonorrhoeae, PCR Negati ve negati ve Not Available [facility] (Lab) [address], [place], [address], 08/03/2024 13:59:17 07/30/19 25 07/29/2024 CULTU RE: URINE result report SEE RESULT S BELOW abnormal Test: Cultu re: Urine Speci men Sourc e: Urine - Clean Catch Speci men Type: Urine Speci men Date: 2024 1446 Resul t Date: 2024 0713 Resul t Statu s: Final resul t Ramakrishnaor mal: Yes Jacoby garcia Lab: [facility] [address] [facility] [address] Tel: CULTU RE ----- ----- ----- --- [...] <=0.5 ug/mL Susce ptibl e Not Available [facility] (Lab) [address], [place], [address], 08/03/2024 13:59:18 Result Notes None recorded. Procedures Surgical History Date Name Laterality Status Provider Name and Address Organization Details Recorded Time 11/06/19 22 chemotherapy completed [facility] 07/29/2024 12:08:18 05/08/19 15 medical termination of completed [facility] 07/29/2024 12:07:34 05/08/19 14 incision and drainage of breast abscess completed [facility] 07/29/2024 12:07:14 Imaging Results None recorded. Procedure Notes None recorded. Medical Equipment None Reported. Allergies Allergen ID Allergen Name Allergen Category Reaction Reaction Severity Criticality Documentation Date Start Date Code Code System Note Provider Name and Address Organization Details Recorded Time 91286 pecan nut food Not available Not available Not available 07/29/2024 [facility] 11:57:32 49429 Benadryl medicatio n Not available Not available Not available 07/29/202428397 7 RxNorm [facility] 11:57:43 60444 azithromy louis medicatio n Not available Not available Not available 07/29/2024 60455 RxNorm [facility] 11:58:11 Medications Name Sig Start Date [...] Updated DateTime 07/29/2024 157.48 cm 21.8 kg/m2 33428.49 g 119/81 mm[Hg] Lety Khan [facility] 07/29/2024 11:56:58 Social History Question Answer Notes LastModified by Organizat ion Details LastModified Time Do You Have An Advance Directive? No Information n ot available 07/29/2024 Are You Blind Or Do You Have Difficulty Seeing? No [email or web address] Information n ot available 07/29/2024 What Is Your Level Of Caffeine Consumption? Occasional [email or web address] Information not available 07/29/2024 How Much Tobacco Do You Chew? None [email or web address] Information not available 07/29/2024 In The 14 Days Before Symptom Onset, Have You Had Close Contact With A Laboratory-confirm ed COVID-19 While That Case Was Ill? No [email or web address] Information n ot available 07/29/2024 In The 14 Days Before Symptom Onset, Have You Had Close Contact With A Person Who Is Under Investigation For COVID-19 While That Person Was Ill? No [email or web address] Information not available 07/29/2024 Have You Been To An Area Known To Be High Risk For COVID-19? No [email or web address] Information not available 07/29/2024 Are You Deaf Or Do You Have Serious Difficulty Hearing? No [email or web address] Information not available 07/29/2024 What Type Of Diet Are You Following? REGULAR [email or web address] Information n ot available 07/29/2024 What Is The Highest Grade Or Level Of School You Have Completed Or The Highest Degree You Have Received? [id number] [email or web address] Information not available 07/29/2024 Are There Any Guns Present In Your Home? No [email or web address] Information not available 07/29/2024 Do You Use Protection During Sex? No [email or web address] Information not available 07/29/2024 Do You Use Your Seat Belt Or Car Seat Routinely? No [email or web address] Information not available 07/29/2024 Do You Have Smoke And Carbon Monoxide Detectors In Your Home? Yes [email or web address] Information not available 07/29/2024 At What Age Did You Start Smoking Tobacco? 21 [email or web address] Information not available 07/29/2024 How Much Tobacco Do You Smoke? 1 PPD [email or web address] Information not available 07/29/2024 Do You Use Sunscreen Routinely? No [email or web address] Information not available 07/29/2024 Have You Used IV Drugs? No Information not available 07/29/2024 Sex: Unknown Functional Status Question Answer Note LastModified by Organizat ion Details LastModified Time Do you use any illicit or recreational drugs? No Information not available 07/29/2024 What is your level of alcohol consumption? Occasional [email or web address] Information not available 07/29/2024 Are you able [...] anxious, or unable to sleep at night)? [id number] Information not available 07/29/2024 Family History Nothing [...] ICD10 Code Diagnosis IMO Codes Diagnosis Note [id number] ANIA Reeves [place] [address] [address] 07/29/2024 11:33:28 07/30/2024 10:26:56 Gynecologic examination 60560536 Z01.121 [id number] WWEBC - declinedPa p - done todaySTI [...] advised. Questions answered. Venereal d isease screening 880536221 Z11.3 95547 Sexually t ransmitted infectious disease 4210943 A64 Breast lump 49493918 N63 .0 [id number] order given for bilateral diagnostic mammogram and u/s Health Concerns Section Related Observation LastModified by Organization Detai ls LastModified Time None Recorded Concern Status LastModified by Organization Details LastModified Time None Recorded Advance Directives Directive N: Payers Insurance Date Sequence Insurance Name Policy Number Policy Woods Covered Member ID Woods Member ID Guarantor Name 08/02/2024 1 [facility] (MEDICAID HMO) [id number] Soha Marrero [id number] Soha Marrero Notes Date Note Type Note [...] since 2023 ANAI Reeves [address], [place], [address], [place] [facility] 07/30/2024 09:32:49 OBGyn Episode Ob Episode Information Episode Created Date Number of Fetuses Patient Bloodtype Patient rh Status Prepregnancy Weight lbs Domestic Partner Domestic Partner Phone Father Name Platform Architect Status 07/30/19 1 CLOSED Fetus Data First Name Last Name Admitted to NICU Weight (g) Sex Living Outcome Pediatric Complications Fetus ID Race Codes Race Delivery Type , Induced 38799 Fly Calculation Initial Fly Date Initial Exam [...] Domestic Partner Domestic Partner Phone Father Name Platform Architect Status 07/30/19 1 CLOSED Fetus Data First Name Last Name Admitted to NICU Weight (g) Sex Living Outcome Pediatric Complications Fetus ID Race Codes Race Delivery Type , Spontane ous 10377 Fly Calculation Initial Fly Date Initial Exam [...] Domestic Partner Domestic Partner Phone Father Name Platform Architect Status 07/30/19 25 1 CLOSED Fetus Data First Name Last Name Admitted to NICU Weight (g) Sex Living Outcome Pediatric Complications Fetus ID Race Codes Race Delivery Type F Prematur e [id number] Vaginal Delivery Fly Calculation Initial Fly Date [...]
--- OUTSIDE RECORDS SUMMARY | 2025-02-21 01:24 | XMS_ITS | Encounter Summary ---
Author Organization [facility] Address [address] [place] [address] Care Team Providers Care Cosmetics Counter Manager Name Role Phone Unavailable Primary Care Provider Unavailabl e Encounter Details Date Type Department Care Team (Late st Contact Info) Description 12/18/2022 Lab Requisition [facility] - Pathology Lab [address] [place] [id number] Ishan Escobedo MD [address] [facility] [address] [place] [phone] Generalized enlarged lymph nodes Social History [...] AM CDT) Case Report Flow Cytometry Case: [id number] Authorizing Provider: Ishan Escobedo MD Collected: 12/18/2022 09:00 AM Ordering Location: [facility] Care Pathology Lab Received: 12/18/2022 03:11 PM Pathologist: Giovanni Chow MD Specimen: Axillary Lymph Node, RIGHT 12/18/2022 5:15 PM CDT [facility] Final Diagnosis Axillary lymph node, flow cytometry: - [place] light chain restricted CD10+ B-cell population detected (~99% of overall events) 12/18/2022 5:15 PM CDT [facility] at 1714 CDT Flow Cytometry Interpretation Viability: 87%. B-cells: monoclonal, kappa-restricted, expressing CD19, CD20, and CD10. T-cells: not increased, no immunophenotypic aberrancy. A cytospin prepared from the flow cytometry specimen has been reviewed for software quality tester purposes. 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 Histologic slides are pending for final subclassification. 12/18/2022 5:15 PM [facility] Flow Cytometry Results Differential Result Comment Flow Cell Count /uL 9,000 Total Viability % 87.0 Lymphocytes % 99 Dim CD45 Region % 0 Monocytes % 0 Granulocytes % 1 12/18/2022 5:15 PM [facility] Reason for test Generalized enlarged lymph nodes 785.6 12/18/2022 5:15 PM [facility] Client Specimen ID # [id number] 12/18/2022 5:15 PM [facility] Number of markers 16 were performed. A-2 Flow CD3 A-4 Flow CD10 A-6 Flow CD20 A-7 Flow CD23 A-12 Flow CD2 A-13 Flow CD4 A-16 Flow CD1a A-3 Flow CD5 A-5 Flow CD19 A-8 Flow CD34 A-9 Flow CD45 A-14 Flow CD7 A-15 Flow CD8 A-17 Flow CD30 A-10 [place]+CD19+ A-11 Lambda+CD19+ 12/18/2022 5:15 PM [facility] Pathologist Location at [facility] 12/18/2022 5:15 PM [facility] Disclaimer Test performed at [facility], [address] [place] [address], [id number]. *The established laboratory minimum viability is 70%. [...] PATHOLOGY LAB Embedded Images 5:15 PM CDT [facility] Pathology/Cytolo gy AXILLARY LYMPH NODE STRUCTURE / Unknown 12/18/2022 9:00 AM CDT 12/18/2022 3:11 PM CDT us Ishan Escobedo MD LAB - PATHOLOGY/CYTOLOGY ORDERAB LES Final Result [facility] PATHOLOGY LAB [address] [phone] documented in this encounter Visit Diagnoses Diagnosis Generalized enlarged lymph nodes Enlargement of lymph nodes documented in this encounter
--- OUTSIDE RECORDS SUMMARY | 2025-02-21 01:24 | XMS_ITS | Encounter Summary ---
Author Organization [facility] Address [address] [place] [address] Care Team Providers Care Gse Mechanic Name Role Phone Unavailable Primary Care Provider Unavailabl e Encounter Details Date Type Department Care Team (Late st Contact Info) Description 12/19/2022 Lab Requisition [facility] - Pathology Lab [address] [place] [address] Ishan Escobedo MD [address] [phone] Illness, unspecified Social History Tobacco [...] CDT) Case Report Surgical Pathology Report Case: [id number] Authorizing Provider: Ishan Escobedo MD Collected: 12/18/2022 09:00 AM Ordering Location: [facility] Care Pathology Lab Received: 12/19/2022 01:25 [...] CD10 co-expression. Axillary lymph node, flow cytometry ([id number]): - [place] light chain restricted CD10+ B-cell population detected (~99% of overall events) Also received from [facility] is a peripheral smear showing circulating follicular lymphoma cells with occasional nuclear clefts. The peripheral blood is involved by follicular lymphoma. 12/19/2022 3:33 PM CDT [facility] Clinical History Suspect lymphoma. 12/19/2022 3:33 PM [facility] Materials Received Received are 4 slide(s) and 1 block labeled [id number] along with a copy of the outside pathology report. The materials originate from [facility], [address] [place] [address]. All original materials are returned to the referring institution, along with a copy of our final report. 12/19/2022 3:33 PM T [facility] Pathologist Location at [facility] 12/19/2022 3:33 PM T [facility] Disclaimer The performance characteristics of all immunohistochemical and indirect immunofluorescence stains (if any) cited in this report were determined by the Histopathology Laboratory of [facility]. Some of these tests were developed [...] attending (teaching) pathologist. 12/19/2022 3:33 PM T [facility] Embedded Images 12/19/2022 3:33 PM T [facility] Pathology/Cytolo gy BIOPSY OF LYMPH NODE / Unknown 12/18/2022 9:00 AM CDT 12/19/2022 1:25 PM CDT us Ishan Escobedo MD LAB - PATHOLOGY/CYTOLOGY ORDERAB LES Final Result [facility] [address] [facility]. [address] [phone] documented in this encounter Visit Diagnoses Diagnosis Illness, unspecified documented in this encounter
--- OUTSIDE RECORDS SUMMARY | 2025-02-21 01:24 | XMS_ITS | Clinical Summary ---
Author Organization [place] [id number] [facility] Address [address] [place] [address] Care Team Providers Care Cleaner And Preparer Name Role Phone Ramy Aguilera MD Unavailable [phone] Satya Fernandez MD Primary Care Provider [phone] Allergies Active Allergy Reactions Criticality Noted Date [...] - Plan to discharge patient with outpatient [facility] follow-up on 09/30/24. Assessment & [...] - Plan to discharge patient with outpatient [facility] follow-up on 09/30/24. Assessment & [...] - Plan to discharge patient with outpatient [facility] follow-up on 09/30/24. Assessment & [...] Department Care Team Description 02/10/2025 11:00 AM PHOTOENGRAVING SUPERVISOR Infusion [facility] at [address] [phone] Follicular lymphoma, unspecified follicular lymphoma type, unspecified body region (HCC) (Primary Dx); Prevention of chemotherapy-induced neutropenia 02/10/2025 10:30 AM PHOTOENGRAVING SUPERVISOR Lab [address] [address] Prevention of chemotherapy-induced neutropenia (Primary Dx); Follicular lymphoma, unspecified follicular lymphoma type, unspecified body region (HCC) 02/10/2025 Social Work [facility] Medicine Oncology [address] [place] [phone] Marycarmen Gray LCSW 02/03/2025 12:00 PM CDT Infusion [address] [phone] Follicular lymphoma, unspecified follicular lymphoma type, unspecified body region (HCC) (Primary Dx); Prevention of chemotherapy-induced neutropenia 02/03/2025 11:30 AM CDT [facility] [address] [place] [phone] Ramy Aguilera MD Follicular lymphoma, unspecified follicular lymphoma type, unspecified body region (HCC) (Primary Dx); Prevention of chemotherapy-induced neutropenia 02/03/2025 11:00 AM CDT Lab [address] [address] Follicular lymphoma, unspecified follicular lymphoma type, unspecified body region (HCC); Prevention of chemotherapy-induced neutropenia 02/03/2025 Orders Only [facility] On[facility] [address] [place] [phone] Ramy Aguilera MD 01/18/2025 Social Work [facility] [address] [place] [phone] Desirae Bates LCSW 01/13/2025 12:00 PM CDT Clinical Support [facility] Medical Office Building 2 Radiation Oncology [address] [place] [phone] Follicular lymphoma, unspecified follicular lymphoma type, unspecified body region (HCC) (Primary Dx) 01/13/2025 10:30 AM CDT Infusion [address] [phone] Prevention of chemotherapy-induced neutropenia (Primary Dx); Follicular lymphoma, unspecified follicular lymphoma type, unspecified body region (HCC) 01/13/2025 10:00 AM CDT Office Visit [facility] [address] [place] [phone] Ramy Aguilera MD Follicular lymphoma, unspecified follicular lymphoma type, unspecified body region (HCC) (Primary Dx); Prevention of chemotherapy-induced neutropenia 01/13/2025 9:30 AM CDT Lab [address] [address] Follicular lymphoma, unspecified follicular lymphoma type, unspecified body region (HCC); Prevention of chemotherapy-induced neutropenia 01/12/2025 Orders Only [facility] [address] [place] [phone] Rmay Aguilera MD 12/30/2024 Orders Only [facility] [place] at [address] [phone] Paulina German RPh 12/23/2024 10:30 AM CDT Infusion [facility] at [address] [phone] Prevention of chemotherapy-induced neutropenia (Primary Dx); Follicular lymphoma, unspecified follicular lymphoma type, unspecified body region (HCC) 12/23/2024 10:00 AM CDT Office Visit [facility] [address] [place] [phone] Ramy Aguilera MD Follicular lymphoma, unspecified follicular lymphoma type, unspecified body region (HCC) (Primary Dx); Prevention of chemotherapy-induced neutropenia 12/23/2024 9:30 AM CDT Lab [address] [address] Follicular lymphoma, unspecified follicular lymphoma type, unspecified body region (HCC); Prevention of chemotherapy-induced neutropenia 12/22/2024 Orders Only [facility] Oncology [address] [place] [address] [address] [place] [phone] Ramy Aguilera MD 12/16/2024 Orders Only [facility] at [address] [phone] Paulina German RPh 12/15/2024 8:06 AM CDT - 12/15/2024 11:59 PM CDT Hospital Encounter [facility] Medical Office Building [address] [place] [phone] Follicular lymphoma, unspecified follicular lymphoma type, unspecified body region (HCC) Discharge Disposition: Discharge to home or self care 12/09/2024 10:00 AM CDT Office Visit [facility] Bone Marrow Transplant [address] [place] [phone] Paige Giordano NP Follicular lymphoma, unspecified follicular lymphoma type, unspecified body region (HCC) (Primary Dx) 12/09/2024 9:30 AM CDT Lab [facility] Cancer [address] [address] Follicular lymphoma, unspecified follicular lymphoma type, unspecified [...] Comments Blood Pressure 98/62 02/10/2025 10:55 AM PHOTOENGRAVING SUPERVISOR Pulse 93 02/10/2025 10:55 AM PHOTOENGRAVING SUPERVISOR Temperature 36.5 C (97.7 F) 02/10/2025 10:55 AM PHOTOENGRAVING SUPERVISOR Respiratory Rate 16 02/10/2025 10:5 5 AM PHOTOENGRAVING SUPERVISOR Oxygen Saturation 100% 02/10/2025 10: 55 AM PHOTOENGRAVING SUPERVISOR Inhaled Oxygen Concentration - - Weight 49.2 kg (108 lb 7.5 oz) 02/11/20 25 10:55 AM PHOTOENGRAVING SUPERVISOR W/O SHOES Height 158.5 cm (5' 2.4) 12/23/2024 10 :45 AM CDT Body Mass Index 19.58 12/23/2024 10:45 AM CDT Plan of Treatment Upcoming Encounters Date Type Department Care Team (Late st Contact Info) Description 2025 10:00 AM PHOTOENGRAVING SUPERVISOR Hospital Encounter [facility] Medical Office Building [address] [address] Health Maintenance Due Date Last Done Comments [...] Diagnosis Comments BLOOD SMEAR REVIEW Routine 02/10/2025 10 :45 AM PHOTOENGRAVING SUPERVISOR Follicular lymphoma, unspecified follicular lymphoma type, unspecified body region (HCC) Prevention of chemotherapy-induc ed neutropenia EGFR STAT 02/10/2025 10:45 AM PHOTOENGRAVING SUPERVISOR Follicular lymphoma, unspecified follicular lymphoma type, unspecified body region (HCC) Prevention of chemotherapy-induc ed neutropenia DIFFERENTIAL AUTO Routine 02/10/2025 10: 45 AM PHOTOENGRAVING SUPERVISOR Follicular lymphoma, unspecified follicular lymphoma type, unspecified body region (HCC) Prevention of chemotherapy-induc ed neutropenia CBC WITH AUTO DIFFERENTIAL Routine 02/10/2025 10:45 AM PHOTOENGRAVING SUPERVISOR Follicular lymphoma, unspecified follicular lymphoma type, unspecified body region (HCC) Prevention of chemotherapy-induc ed neutropenia COMPREHENSIVE METABOLIC PANEL STAT 02/10/2025 10:45 AM PHOTOENGRAVING SUPERVISOR Follicular lymphoma, unspecified follicular lymphoma type, unspecified body region (HCC) Prevention of chemotherapy-induc ed neutropenia HCG, BLOOD, QUANTITATIVE STAT 02/10/2025 10:45 AM PHOTOENGRAVING SUPERVISOR Follicular lymphoma, unspecified follicular lymphoma type, unspecified body region (HCC) Prevention of chemotherapy-induc ed neutropenia LACTATE DEHYDROGENASE STAT 02/03/2025 11:19 AM CDT Follicular lymphoma, unspecified follicular lymphoma type, unspecified body region (HCC) Prevention of chemotherapy-induc ed neutropenia BLOOD SMEAR REVIEW Routine 02/03/2025 11 :19 AM CDT Follicular lymphoma, unspecified follicular lymphoma type, unspecified body region (HCC) Prevention of chemotherapy-induc ed neutropenia EGFR STAT 02/03/2025 11:19 AM CDT Follicular lymphoma, unspecified follicular lymphoma type, unspecified body region (HCC) Prevention of chemotherapy-induc ed neutropenia DIFFERENTIAL AUTO Routine 02/03/2025 11: 19 AM CDT Follicular lymphoma, unspecified follicular lymphoma type, unspecified body region (HCC) Prevention of chemotherapy-induc ed neutropenia CBC WITH AUTO DIFFERENTIAL Routine 02/03/2025 11:19 AM CDT Follicular lymphoma, unspecified follicular lymphoma type, unspecified body region (HCC) Prevention of chemotherapy-induc ed neutropenia COMPREHENSIVE METABOLIC PANEL STAT 02/03/2025 11:19 AM CDT Follicular lymphoma, unspecified follicular lymphoma type, unspecified body region (HCC) Prevention of chemotherapy-induc ed neutropenia HCG, BLOOD, QUANTITATIVE STAT 02/03/2025 11:19 AM CDT Follicular lymphoma, unspecified follicular lymphoma type, unspecified body region (HCC) Prevention of chemotherapy-induc ed neutropenia BLOOD SMEAR REVIEW Routine 01/13/2025 10 :00 AM CDT Follicular lymphoma, unspecified follicular lymphoma type, unspecified body region (HCC) Prevention of chemotherapy-induc ed neutropenia EGFR STAT 01/13/2025 10:00 AM CDT Follicular lymphoma, unspecified follicular lymphoma type, unspecified body region (HCC) Prevention of chemotherapy-induc ed neutropenia DIFFERENTIAL AUTO Routine 01/13/2025 10: 00 AM CDT Follicular lymphoma, unspecified follicular lymphoma type, unspecified body region (HCC) Prevention of chemotherapy-induc ed neutropenia CBC WITH AUTO DIFFERENTIAL Routine 01/13/2025 10:00 AM CDT Follicular lymphoma, unspecified follicular lymphoma type, unspecified body region (HCC) Prevention of chemotherapy-induc ed neutropenia COMPREHENSIVE METABOLIC PANEL STAT 01/13/2025 10:00 AM CDT Follicular lymphoma, unspecified follicular lymphoma type, unspecified body region (HCC) Prevention of chemotherapy-induc ed neutropenia HCG, BLOOD, QUANTITATIVE STAT 01/13/2025 10:00 AM CDT Follicular lymphoma, unspecified follicular lymphoma type, unspecified body region (HCC) Prevention of chemotherapy-induc ed neutropenia URIC ACID Routine 12/23/2024 9:47 AM CDT Follicular lymphoma, unspecified follicular lymphoma type, unspecified body region (HCC) BLOOD SMEAR REVIEW Routine 12/23/2024 9: 47 AM CDT Follicular lymphoma, unspecified follicular lymphoma type, unspecified body region (HCC) Prevention of chemotherapy-induc ed neutropenia EGFR STAT 12/23/2024 9:47 AM CDT Follicular lymphoma, unspecified follicular lymphoma type, unspecified body region (HCC) Prevention of chemotherapy-induc ed neutropenia DIFFERENTIAL AUTO Routine 12/23/2024 9:4 7 AM CDT Follicular lymphoma, unspecified follicular lymphoma type, unspecified body region (HCC) Prevention of chemotherapy-induc ed neutropenia CBC WITH AUTO DIFFERENTIAL Routine 12/23/2024 9:47 AM CDT Follicular lymphoma, unspecified follicular lymphoma type, unspecified body region (HCC) Prevention of chemotherapy-induc ed neutropenia COMPREHENSIVE METABOLIC PANEL STAT 12/23/2024 9:47 AM CDT Follicular lymphoma, unspecified follicular lymphoma type, unspecified body region (HCC) Prevention of chemotherapy-induc ed neutropenia HCG, BLOOD, QUANTITATIVE STAT 12/23/2024 9:47 AM CDT Follicular lymphoma, unspecified follicular lymphoma type, unspecified body region (HCC) Prevention of chemotherapy-induc ed neutropenia PET/CT FDG SKULL TO THIGH Schedule [...] (ABNORMAL) Blood smear review (02/10/2025 10:45 AM PHOTOENGRAVING SUPERVISOR) RBC morphology Consistent with RBC Indicies Comment:Testing performed by : [address] [address] Anisocytosis Slight(A) JOSELYN VAZQUEZ Comment:Testing performed by : [address] [address] Platelet estimate Adequate JOSELYN VAZQUEZ Comment:Testing performed by : [address] [address] Blood 02/10/2025 10:4 5 AM PHOTOENGRAVING SUPERVISOR 02/10/2025 10:48 AM PHOTOENGRAVING SUPERVISOR us Ramy Aguilera MD LAB BLOOD ORDERABLES Final R esult Performing Organization Address [facility] de Phone Number JOSELYN [facility] [place] [place] [address] * eGFR (02/10/2025 10:45 AM PHOTOENGRAVING SUPERVISOR) eGFR >90 >=60 mL/min/1. 73 m2 [...] was last reviewed 2021. Testing performed by: [address] [address] Blood 02/10/2025 10:4 5 AM PHOTOENGRAVING SUPERVISOR 02/10/2025 10:48 AM PHOTOENGRAVING SUPERVISOR Ramy Aguilera MD LAB BLOOD ORDERABLES Final R esult Performing Organization Address City/[facility] Co de Phone Number JOSELYN [address] [facility] [place] [place] [address] * (ABNORMAL) Differential, auto (02/10/2025 10:45 AM PHOTOENGRAVING SUPERVISOR) Neutrophil abs 2.05 1.50 - 6.50 K/cumm Comment:Testing performed by : [address] [address] Imm gran abs 0.01 0.00 - 0.10 K/cumm [facility] Comment:Testing performed by : [address] [address] Lymphocyte abs 13.08(H) 0.80 - 3.30 K/cumm [facility] Comment:Testing performed by : [address] [address] Monocyte abs 0.29 0.20 - 0.80 K/cumm [facility] Comment:Testing performed by : [address], [place]., [address] Eosinophil abs 0.02 0.00 - 0.50 K/cumm [facility] Comment:Testing performed by : [address] [address] Basophil abs 0.07 0.00 - 0.10 K/cumm [facility] Comment:Testing performed by : [address] [address] Neutrophil pct 13.1 % [facility] Comment: Interpretive Data Percent cell count reference ranges are not reported, since discordance with absolute values may lead to misinterpretation of CBC data. Current Interpretive Data was last revised on 2017. Testing performed by: [address] [address] Imm gran pct 0.1 % [facility] Comment: Interpretive Data Percent cell count reference ranges are not reported, since discordance with absolute values may lead to misinterpretation of CBC data. Current Interpretive Data was last revised on 2017. Testing performed by: [address] [address] Lymphocyte pct 84.3 % [facility] Comment: Interpretive Data Percent cell count reference ranges are not reported, since discordance with absolute values may lead to misinterpretation of CBC data. Current Interpretive Data was last revised on 2017. Testing performed by: [address] [address] Monocyte pct 1.9 % [facility] Comment: Interpretive Data Percent cell count reference ranges are not reported, since discordance with absolute values may lead to misinterpretation of CBC data. Current Interpretive Data was last revised on 2017. Testing performed by: [address] [address] Eosinophil pct 0.1 % JOSELYN VAZQUEZ Comment: Interpretive Data Percent cell count reference ranges are not reported, since discordance with absolute values may lead to misinterpretation of CBC data. Current Interpretive Data was last revised on 2017. Testing performed by: [address] [address] Basophil pct 0.5 % JOSELYN VAZQUEZ Comment: Interpretive Data Percent cell count reference ranges are not reported, since discordance with absolute values may lead to misinterpretation of CBC data. Current Interpretive Data was last revised on 2017. Testing performed by: [address] [address] Blood 02/10/2025 10:4 5 AM PHOTOENGRAVING SUPERVISOR 02/10/2025 10:48 AM PHOTOENGRAVING SUPERVISOR us Ramy Aguilera MD LAB BLOOD ORDERABLES Final R esult JOSELYN [facility] Department [place] [address] * (ABNORMAL) CBC with auto differential (02/10/2025 10:45 AM PHOTOENGRAVING SUPERVISOR) WBC 15.52(H) 3.80 - 9.90 K/cumm Comment:Testing performed by : [address] [address] Hgb 7.9(L) 11.9 - 15.5 g/dL JOSELYN VAZ[facility]Z Comment:Testing performed by : [address] [address] Hct 25.5(L) 35.6 - 45.5 % JOSELYN VAZQUEZ Comment:Testing performed by : [address] [address] Plt 128(L) 150 - 400 K/cumm JOSELYN VAZQUEZ Comment:Testing performed by : [address] [address] MPV 10.3 9.1 - 12.3 fL JOSELYN VAZQUEZ Comment:Testing performed by : [address] [address] RBC 2.75(L) 3.90 - 5.20 M/cumm JOSELYN VAZQUEZ Comment:Testing performed by : [address] [address] MCV 92.7 81.3 - 96.4 fL JOSELYN VAZQUEZ Comment:Testing performed by : [address] [address] MCH 28.7 27.1 - 33.3 pg JOSELYN Comment:Testing performed by : [address] [address] MCHC 31.0(L) 32.3 - 35.7 g/dL JOSELYN VAZQUEZ Comment:Testing performed by : [address] [address] RDW CV 18.0(H) 11.1 - 14.9 % JOSELYN Comment:Testing performed by : [address] [address] RDW SD 60.4(H) 35.7 - 48.1 fL JOSELYN Comment:Testing performed by : [address] [address] NRBC abs 0.00 0.00 - 0.01 K/cumm JOSELYN Comment:Testing performed by : [address] [address] ANC Prelim 2.05 1.50 - 6.50 K/cumm JOSELYN Comment: Interpretive Data The rapid ANC is a preliminary automated count and may vary from the final ANC (Neut Abs) reported in the WBC differential that follows. Current interpretive data was last revised 2024. Testing performed by: [address] [address] Blood 02/10/2025 10:4 5 AM PHOTOENGRAVING SUPERVISOR 02/10/2025 10:48 AM PHOTOENGRAVING SUPERVISOR us Ramy Aguilera MD LAB BLOOD ORDERABLES Final R esult JOSELYN [address] [facility] Department [place] [address] * hCG, blood, quantitative (02/10/2025 10:45 AM PHOTOENGRAVING SUPERVISOR) Pathologist [facility] hCG, quant <5.0 0.0 - 5.0 IUnits/L Comment: Interpretive Data Male: < 5 IU/L Non- premenopausal Female: <5 IU/L The [employer] hCG Beta Quant assay procedure was used. Results from different manufacturers or methods may not be comparable. Serial testing should be performed using the same method. Interpretive Data was last revised on 2023 Testing performed by: [address] [address] Blood 02/10/2025 10:4 5 AM PHOTOENGRAVING SUPERVISOR 02/10/2025 11:06 AM PHOTOENGRAVING SUPERVISOR us Ramy Aguilera MD LAB BLOOD ORDERABLES Final R esult JOSELYN [address] [facility] Department [place] [address] * (ABNORMAL) Comprehensive metabolic panel (02/10/2025 10:45 AM PHOTOENGRAVING SUPERVISOR) [facility] Sodium 143 135 - 145 mmol/L Comment:Testing performed by : [address] [address] Potassium, pl 3.8 3.3 - 4.9 mmol/L JOSELYN Comment:Testing performed by : [address] [address] Chloride 102 97 - 110 mmol/L JOSELYN Comment:Testing performed by : [address] [address] CO2 29 22 - 32 mmol/L JOSELYN Comment:Testing performed by : [address] [address] Anion gap 12 2 - 15 mmol/L JOSELYN Comment:Testing performed by : [address] [address] BUN 12 6 - 25 mg/dL JOSELYN Comment:Testing performed by : [address] [address] Creatinine 0.80 0.60 - 1.10 mg/dL [facility] Comment:Testing performed by : [address] [address] Glucose 94 70 - 199 mg/dL [facility] Comment: Interpretive Data Fasting glucose >/= [...] was last revised 2022. Testing performed by: [address] [address] Calcium 9.0 8.5 - 10.3 mg/dL [facility] Comment:Testing performed by : [address] [address] Bilirubin, total 0.3 0.1 - 1.2 mg/dL [facility] Comment:Testing performed by : [address] [address] Protein, pl 6.1(L) 6.5 - 8.5 g/dL [facility] Comment:Testing performed by : [address] [address] Albumin 4.0 3.5 - 5.0 g/dL [facility] Comment:Testing performed by : [address] [address] Alk phos 149(H) 40 - 130 Units/L [facility] Comment:Testing performed by : [address] [address] ALT 11 7 - 45 Units/L JOSELYN Comment:Testing performed by : [address] [address] AST 23 10 - 45 Units/L JOSELYN Comment:Testing performed by : [address] [address] Blood 02/10/2025 10:4 5 AM PHOTOENGRAVING SUPERVISOR 02/10/2025 10:48 AM PHOTOENGRAVING SUPERVISOR Ramy Aguilera MD LAB BLOOD ORDERABLES Final R esult Performing Organization Address [facility] Co de Phone Number JOSELYN [facility] [place] [address] * (ABNORMAL) Blood smear review (02/03/2025 11:19 AM CDT) RBC morphology Consistent with RBC Indicies Comment:Testing performed by : [address] [address] Anisocytosis Slight(A) JOSELYN VAZQUEZ Comment:Testing performed by : [address] [address] Platelet estimate Adequate JOSELYN Comment:Testing performed by : [address] [address] Blood 02/03/2025 11:1 9 AM CDT 02/03/2025 11:22 AM CDT Ramy Aguilera MD LAB BLOOD ORDERABLES Final R esult Performing Organization Address City/[facility] Co de Phone Number JOSELYN [facility] [place] [address] * eGFR (02/03/2025 11:19 AM CDT) eGFR [...] was last reviewed 2021. Testing performed by: [address] [address] Blood 02/03/2025 11:1 9 AM CDT 02/03/2025 11:22 AM CDT us Ramy Aguilera MD LAB BLOOD ORDERABLES Final R esult JOSELYN [address] [facility] Department [place] [address] * (ABNORMAL) Differential, auto (02/03/2025 11:19 AM CDT) Neutrophil abs 2.22 1.50 - 6.50 K/cumm Comment:Testing performed by : [address] [address] Imm gran abs 0.04 0.00 - 0.10 K/cumm JOSELYN Comment:Testing performed by : [address] [address] Lymphocyte abs 22.28(H) 0.80 - 3.30 K/cumm JOSELYN Comment:Testing performed by : [address] [address] Monocyte abs 0.58 0.20 - 0.80 K/cumm JOSELYN Comment:Testing performed by : [address] [address] Eosinophil abs 0.01 0.00 - 0.50 K/cumm JOSELYN Comment:Testing performed by : [address] [address] Basophil abs 0.11(H) 0.00 - 0.10 K/cumm JOSELYN Comment:Testing performed by : [address] [address] Neutrophil pct 8.8 % [facility] Comment: Interpretive Data Percent cell count reference ranges are not reported, since discordance with absolute values may lead to misinterpretation of CBC data. Current Interpretive Data was last revised on 2017. Testing performed by: [address] [address] Imm gran pct 0.2 % [facility] Comment: Interpretive Data Percent cell count reference ranges are not reported, since discordance with absolute values may lead to misinterpretation of CBC data. Current Interpretive Data was last revised on 2017. Testing performed by: [address] [address] Lymphocyte pct 88.3 % [facility] Comment: Interpretive Data Percent cell count reference ranges are not reported, since discordance with absolute values may lead to misinterpretation of CBC data. Current Interpretive Data was last revised on 2017. Testing performed by: [address] [address] Monocyte pct 2.3 % [facility] Comment: Interpretive Data Percent cell count reference ranges are not reported, since discordance with absolute values may lead to misinterpretation of CBC data. Current Interpretive Data was last revised on 2017. Testing performed by: [address] [address] Eosinophil pct 0.0 % [facility] Comment: Interpretive Data Percent cell count reference ranges are not reported, since discordance with absolute values may lead to misinterpretation of CBC data. Current Interpretive Data was last revised on 2017. Testing performed by: [address] [address] Basophil pct 0.4 % [facility] Comment: Interpretive Data Percent cell count reference ranges are not reported, since discordance with absolute values may lead to misinterpretation of CBC data. Current Interpretive Data was last revised on 2017. Testing performed by: [address] [address] Blood 02/03/2025 11:1 9 AM CDT 02/03/2025 11:22 AM CDT Ramy Aguilera MD LAB BLOOD ORDERABLES Final R esult [facility] [address] [facility] Department of [place] [address] * (ABNORMAL) CBC with auto differential (02/03/2025 11:19 AM CDT) [facility] Signature WBC 25.24(H) 3.80 - 9.90 K/cumm Comment:Testing performed by : [address] [address] Hgb 8.7(L) 11.9 - 15.5 g/dL JOSELYN Comment:Testing performed by : [address], [address] Hct 28.1(L) 35.6 - 45.5 % JOSELYN Comment:Testing performed by : [address] [address] Plt 176 150 - 400 K/cumm JOSELYN Comment:Testing performed by : [address] [address] MPV 9.6 9.1 - 12.3 fL JOSELYN Comment:Testing performed by : [address], [address] RBC 3.07(L) 3.90 - 5.20 M/cumm JOSELYN Comment:Testing performed by : [address] [address] MCV 91.5 81.3 - 96.4 fL JOSELYN Comment:Testing performed by : [address] [address] MCH 28.3 27.1 - 33.3 pg JOSELYN Comment:Testing performed by : [address], [address] MCHC 31.0(L) 32.3 - 35.7 g/dL JOSELYN Comment:Testing performed by : [address], [address] RDW CV 17.6(H) 11.1 - 14.9 % JOSELYN Comment:Testing performed by : [address], [address] RDW SD 57.8(H) 35.7 - 48.1 fL JOSELYN Comment:Testing performed by : [address] [address] NRBC abs 0.02(H) 0.00 - 0.01 K/cumm JOSELYN Comment:Testing performed by : [address] [address] ANC Prelim 2.22 1.50 - 6.50 K/cumm JOSELYN Comment: Interpretive Data The rapid ANC is a preliminary automated count and may vary from the final ANC (Neut Abs) reported in the WBC differential that follows. Current interpretive data was last revised 2024. Testing performed by: [address] [address] Blood 02/03/2025 11:1 9 AM CDT 02/03/2025 11:22 AM CDT Ramy Aguilera MD LAB BLOOD ORDERABLES Edited Result - Final Performing Organization Address City/State/[facility] Co de Phone Number [facility] [address] [facility] Department [place] [address] * hCG, blood, quantitative (02/03/2025 11:19 AM CDT) Pathologist [facility] [...] last revised on 2023 Testing performed by: [address] [address] Blood 02/03/2025 11:1 9 AM CDT 02/03/2025 11:45 AM CDT Ramy Aguilera MD LAB BLOOD ORDERABLES Final R esult Performing Organization Address City/State/[facility] Co de Phone Number JOSELYN [address] [facility] Department [place] [address] * (ABNORMAL) Lactate dehydrogenase (LD) (02/03/2025 11:19 AM CDT) Lactate dehydrogenase (LDH) 392(H) 100 - 250 Units/L Comment: HEMOLYZED: Hemolysis interferes with the above test. Testing performed by: [address] [address] Blood 02/03/2025 11:1 9 AM CDT 02/03/2025 11:22 AM CDT Ramy Aguilera MD LAB BLOOD ORDERABLES Final R esult Performing Organization Address [facility] Co de Phone Number JOSELYN [address] [facility] [place] [address] * (ABNORMAL) Comprehensive metabolic panel (02/03/2025 11:19 AM CDT) Pathologist [facility] [place] Sodium 136 135 - 145 mmol/L Comment:Testing performed by : [address] [address] Potassium, pl 3.7 3.3 - 4.9 mmol/L JOSELYN Comment:Testing performed by : [address] [address] Chloride 99 97 - 110 mmol/L JOSELYN Comment:Testing performed by : [address] [address] CO2 23 22 - 32 mmol/L JOSELYN Comment:Testing performed by : [address] [address] Anion gap 14 2 - 15 mmol/L JOSELYN Comment:Testing performed by : [address] [address] BUN 8 6 - 25 mg/dL JOSELYN Comment:Testing performed by : [address] [address] Creatinine 0.70 0.60 - 1.10 mg/dL JOSELYN Comment:Testing performed by : [address] [address] Glucose 105 70 - 199 mg/dL JOSELYN [...] was last revised 2022. Testing performed by: [address] [address] Calcium 9.3 8.5 - 10.3 mg/dL JOSELYN Comment:Testing performed by : [address] [address] Bilirubin, total 0.5 0.1 - 1.2 mg/dL JOSELYN Comment:Testing performed by : [address] [address] Protein, pl 6.4(L) 6.5 - 8.5 g/dL JOSELYN Comment:Testing performed by : [address] [address] Albumin 4.0 3.5 - 5.0 g/dL JOSELYN Comment:Testing performed by : [address] [address] Alk phos 180(H) 40 - 130 Units/L JOSELYN Comment:Testing performed by : [address] [address] ALT 25 7 - 45 Units/L JOSELYN Comment:Testing performed by : [address] [address] AST 33 10 - 45 Units/L JOSELYN Comment:Testing performed by : [address] [address] Blood 02/03/2025 11:1 9 AM CDT 02/03/2025 11:22 AM CDT us Ramy Aguilera MD LAB BLOOD ORDERABLES Final R esult Performing Organization Address [facility] Co de Phone Number JOSELYN [facility] [place] [place] [address] * (ABNORMAL) Blood smear review (01/13/2025 10:00 AM CDT) RBC morphology Consistent with RBC Indicies Comment:Testing performed by : [address] [address] Anisocytosis Slight(A) JOSELYN VAZQUEZ Comment:Testing performed by : [address] [address] Platelet estimate Adequate JOSELYN Comment:Testing performed by : [address] [address] Blood 01/13/2025 10:0 0 AM CDT 01/13/2025 10:02 AM CDT Ramy Aguilera MD LAB BLOOD ORDERABLES Final R esult Performing Organization Address [facility] Co de Phone Number JOSELYN [address] [place] [address] * eGFR (01/13/2025 10:00 AM CDT) eGFR [...] of Race in Diagnosing Kidney Disease, JASN 2021). The CKD-EPI equation should not be used for patients with unstable renal function and has not been validated in children and those over 70. Current interpretive data was last reviewed 2021. Testing performed by: [address] [address] Blood 01/13/2025 10:0 0 AM CDT 01/13/2025 10:02 AM CDT us Ramy Aguilera MD LAB BLOOD ORDERABLES Final R esult [facility] [address] [facility] Department [place] [address] * (ABNORMAL) Differential, auto (01/13/2025 10:00 AM CDT) Neutrophil abs 1.44(L) 1.50 - 6.50 K/cumm Comment:Testing performed by : [address] [address] Imm gran abs 0.03 0.00 - 0.10 K/cumm JOSELYN Comment:Testing performed by : [address] [address] Lymphocyte abs 17.55(H) 0.80 - 3.30 K/cumm JOSELYN Comment:Testing performed by : [address] [address] Monocyte abs 0.33 0.20 - 0.80 K/cumm JOSELYN Comment:Testing performed by : [address] [address] Eosinophil abs 0.04 0.00 - 0.50 K/cumm JOSELYN Comment:Testing performed by : [address] [address] Basophil abs 0.10 0.00 - 0.10 K/cumm JOSELYN Comment:Testing performed by : [address] [address] Neutrophil pct 7.4 % JOSELYN Comment: Interpretive Data Percent cell count reference ranges are not reported, since discordance with absolute values may lead to misinterpretation of CBC data. Current Interpretive Data was last revised on 2017. Testing performed by: [address] [address] Imm gran pct 0.2 % [facility] Comment: Interpretive Data Percent cell count reference ranges are not reported, since discordance with absolute values may lead to misinterpretation of CBC data. Current Interpretive Data was last revised on 2017. Testing performed by: [address] [address] Lymphocyte pct 90.0 % [facility] Comment: Interpretive Data Percent cell count reference ranges are not reported, since discordance with absolute values may lead to misinterpretation of CBC data. Current Interpretive Data was last revised on 2017. Testing performed by: [address] [address] Monocyte pct 1.7 % [facility] Comment: Interpretive Data Percent cell count reference ranges are not reported, since discordance with absolute values may lead to misinterpretation of CBC data. Current Interpretive Data was last revised on 2017. Testing performed by: [address] [address] Eosinophil pct 0.2 % [facility] Comment: Interpretive Data Percent cell count reference ranges are not reported, since discordance with absolute values may lead to misinterpretation of CBC data. Current Interpretive Data was last revised on 2017. Testing performed by: [address] [address] Basophil pct 0.5 % [facility] Comment: Interpretive Data Percent cell count reference ranges are not reported, since discordance with absolute values may lead to misinterpretation of CBC data. Current Interpretive Data was last revised on 2017. Testing performed by: [address] [address] Blood 01/13/2025 10:0 0 AM CDT 01/13/2025 10:02 AM CDT us Ramy Aguilera MD LAB BLOOD ORDERABLES Final R esult JOSELYN [address] Department [place] [address] * (ABNORMAL) CBC with auto differential (01/13/2025 10:00 AM CDT) [facility] WBC 19.49(H) 3.80 - 9.90 K/cumm Comment:Testing performed by : [address] [address] Hgb 8.1(L) 11.9 - 15.5 g/dL JOSELYN Comment:Testing performed by : [address] [address] Hct 25.4(L) 35.6 - 45.5 % JOSELYN Comment:Testing performed by : [address] [address] Plt 108(L) 150 - 400 K/cumm JOSELYN Comment:Testing performed by : [address] [address] MPV 8.8(L) 9.1 - 12.3 fL JOSELYN Comment:Testing performed by : [address] [address] RBC 2.77(L) 3.90 - 5.20 M/cumm JOSELYN Comment:Testing performed by : [address] [address] MCV 91.7 81.3 - 96.4 fL JOSELYN Comment:Testing performed by : [address] [address] MCH 29.2 27.1 - 33.3 pg JOSELYN Comment:Testing performed by : [address] [address] MCHC 31.9(L) 32.3 - 35.7 g/dL JOSELYN Comment:Testing performed by : [address] [address] RDW CV 17.9(H) 11.1 - 14.9 % JOSELYN Comment:Testing performed by : [address], [address] RDW SD 59.7(H) 35.7 - 48.1 fL JOSELYN Comment:Testing performed by : [address] [address] NRBC abs 0.02(H) 0.00 - 0.01 K/cumm JOSELYN Comment:Testing performed by : [address] [address] ANC Prelim 1.44(L) 1.50 - 6.50 K/cumm JOSELYN Comment: Interpretive Data The rapid ANC is a preliminary automated count and may vary from the final ANC (Neut Abs) reported in the WBC differential that follows. Current interpretive data was last revised 2024. Testing performed by: [address] [address] Blood 01/13/2025 10:0 0 AM CDT 01/13/2025 10:02 AM CDT Ramy Aguilera MD LAB BLOOD ORDERABLES Edited Result - Final Performing Organization Address [facility] Co de Phone Number [address] [employer] [place], [place] [id number] * hCG, blood, quantitative (01/13/2025 10:00 AM CDT) [facility] hCG, quant <5.0 0.0 - 5.0 IUnits/L Comment: Interpretive Data Male: < 5 IU/L Non- premenopausal Female: <5 IU/L The Cosmo hCG Beta Quant assay procedure was used. Results from different manufacturers or methods may not be comparable. Serial testing should be performed using the same method. Interpretive Data was last revised on 2023 Testing performed by: [address] [address] Blood 01/13/2025 10:0 0 AM CDT 01/13/2025 10:18 AM CDT Ramy Aguilera MD LAB BLOOD ORDERABLES Final R esult Performing Organization Address [facility] Co de Phone Number [address] Department [place] [address] * (ABNORMAL) Comprehensive metabolic panel (01/13/2025 10:00 AM CDT) Sodium 138 135 - 145 mmol/L Comment:Testing performed by : [address] [address] Potassium, pl 3.2(L) 3.3 - 4.9 mmol/L JOSELYN Comment:Testing performed by : [address] [address] Chloride 98 97 - 110 mmol/L JOSELYN Comment:Testing performed by : [address] [address] CO2 26 22 - 32 mmol/L JOSELYN Comment:Testing performed by : [address] [address] Anion gap 14 2 - 15 mmol/L JOSELYN Comment:Testing performed by : [address] [address] BUN 6 6 - 25 mg/dL JOSELYN Comment:Testing performed by : [address] [address] Creatinine 0.70 0.60 - 1.10 mg/dL JOSELYN Comment:Testing performed by : [address] [address] Glucose 131 70 - 199 mg/dL JOSELYN [...] was last revised 2022. Testing performed by: [address] [address] Calcium 9.0 8.5 - 10.3 mg/dL JOSELYN Comment:Testing performed by : [address] [address] Bilirubin, total 0.5 0.1 - 1.2 mg/dL JOSELYN Comment:Testing performed by : [address] [address] Protein, pl 5.8(L) 6.5 - 8.5 g/dL JOSELYN Comment:Testing performed by : [address], [place]., [address] Albumin 3.8 3.5 - 5.0 g/dL JOSELYN Comment:Testing performed by : [address], [place]., [address] Alk phos 238(H) 40 - 130 Units/L JOSELYN Comment:Testing performed by : [address], [place]., [address] ALT 17 7 - 45 Units/L JOSELYN Comment:Testing performed by : [address] [address] AST 30 10 - 45 Units/L JOSELYN Comment:Testing performed by : [address] [address] Blood 01/13/2025 10:0 0 AM CDT 01/13/2025 10:02 AM CDT us Ramy Aguilera MD LAB BLOOD ORDERABLES Final R esult [facility] [address] [facility] Department of Laboratories [place], [place] [id number] * (ABNORMAL) Blood smear review (12/23/2024 9:47 AM CDT) RBC morphology Consistent with RBC Indicies Comment:Testing performed by : [address] [address] Anisocytosis Slight(A) JOSELYN Comment:Testing performed by : [address], [place]., [address] Platelet estimate Adequate JOSELYN Comment:Testing performed by : [address] [address] Blood 12/23/2024 9:47 AM CDT 12/23/2024 9:48 AM CDT us Ramy Aguilera MD LAB BLOOD ORDERABLES Final R esult Performing Organization Address City/[facility]/ZIP Co de Phone Number JOSELYN [address] [place] [address] * eGFR (12/23/2024 9:47 AM CDT) eGFR [...] reviewed 2021. Testing performed by: [facility], [address] [place] [address]., [address] Blood 12/23/2024 9:47 AM CDT 12/23/2024 9:48 AM CDT us Ramy Aguilera MD LAB BLOOD ORDERABLES Final R esult Performing Organization Address City/[facility]/ZIP Co de Phone Number JOSELYN [address] Department [place] [employer] [place] [address] * (ABNORMAL) Differential, auto (12/23/2024 9:47 AM CDT) Neutrophil abs 2.06 1.50 - 6.50 K/cumm Comment:Testing performed by : [facility], [address] [place] [address], [place]., [address] Imm gran abs 0.08 0.00 - 0.10 K/cumm [facility] Comment:Testing performed by : [facility], [address] [place] [address], [place]., [address] Lymphocyte abs 21.14(H) 0.80 - 3.30 K/cumm [facility] Comment:Testing performed by : [address], [place]., [address] Monocyte abs 0.37 0.20 - 0.80 K/cumm [facility] Comment:Testing performed by : [address], [place]., [address] Eosinophil abs 0.10 0.00 - 0.50 K/cumm [facility] Comment:Testing performed by : [address], [place]., [address] Basophil abs 0.09 0.00 - 0.10 K/cumm [facility] Comment:Testing performed by : [address] [address] Neutrophil pct 8.6 % [facility] Comment: Interpretive Data Percent cell count reference ranges are not reported, since discordance with absolute values may lead to misinterpretation of CBC data. Current Interpretive Data was last revised on 2017. Testing performed by: [address] [address] Imm gran pct 0.3 % [facility] Comment: Interpretive Data Percent cell count reference ranges are not reported, since discordance with absolute values may lead to misinterpretation of CBC data. Current Interpretive Data was last revised on 2017. Testing performed by: [address] [address] Lymphocyte pct 88.7 % [facility] Comment: Interpretive Data Percent cell count reference ranges are not reported, since discordance with absolute values may lead to misinterpretation of CBC data. Current Interpretive Data was last revised on 2017. Testing performed by: [address] [address] Monocyte pct 1.6 % [facility] Comment: Interpretive Data Percent cell count reference ranges are not reported, since discordance with absolute values may lead to misinterpretation of CBC data. Current Interpretive Data was last revised on 2017. Testing performed by: [address] [address] Eosinophil pct 0.4 % JOSELYN Comment: Interpretive Data Percent cell count reference ranges are not reported, since discordance with absolute values may lead to misinterpretation of CBC data. Current Interpretive Data was last revised on 2017. Testing performed by: [address] [address] Basophil pct 0.4 % JOSELYN Comment: Interpretive Data Percent cell count reference ranges are not reported, since discordance with absolute values may lead to misinterpretation of CBC data. Current Interpretive Data was last revised on 2017. Testing performed by: [address] [address] Blood 12/23/2024 9:47 AM CDT 12/23/2024 9:48 AM CDT us Ramy Aguilera MD LAB BLOOD ORDERABLES Final R esult [facility] [address] [facility] Department [place] [address] * (ABNORMAL) CBC with auto differential (12/23/2024 9:47 AM CDT) WBC 23.84(H) 3.80 - 9.90 K/cumm Comment:Testing performed by : [address] [address] Hgb 9.0(L) 11.9 - 15.5 g/dL JOSELYN Comment:Testing performed by : [address] [address] Hct 27.5(L) 35.6 - 45.5 % JOSELYN Comment:Testing performed by : [address] [address] Plt 111(L) 150 - 400 K/cumm JOSELYN Comment:Testing performed by : [address] [place] [address] MPV 9.1 9.1 - 12.3 fL JOSELYN Comment:Testing performed by : [address] [address] RBC 3.02(L) 3.90 - 5.20 M/cumm JOSELYN Comment:Testing performed by : [address], [address] MCV 91.1 81.3 - 96.4 fL JOSELYN Comment:Testing performed by : [address], [address] MCH 29.8 27.1 - 33.3 pg JOSELYN Comment:Testing performed by : [address], [address] MCHC 32.7 32.3 - 35.7 g/dL JOSELYN Comment:Testing performed by : [address], [address] RDW CV 17.8(H) 11.1 - 14.9 % JOSELYN Comment:Testing performed by : [address], [address] RDW SD 57.9(H) 35.7 - 48.1 fL JOSELYN Comment:Testing performed by : [address] [address] NRBC abs 0.07(H) 0.00 - 0.01 K/cumm JOSELYN Comment:Testing performed by : [address] [address] ANC Prelim 2.06 1.50 - 6.50 K/cumm JOSELYN Comment: Interpretive Data The rapid ANC is a preliminary automated count and may vary from the final ANC (Neut Abs) reported in the WBC differential that follows. Current interpretive data was last revised 2024. Testing performed by: [address] [address] Blood 12/23/2024 9:47 AM CDT 12/23/2024 9:48 AM CDT us Ramy Aguilera MD LAB BLOOD ORDERABLES Edited Result - Final Performing Organization Address [facility] Co de Phone Number JOSELYN [address] [place] [place] [address] * hCG, blood, quantitative (12/23/2024 9:47 AM [...] last revised on 2023 Testing performed by: [address] [address] Blood 12/23/2024 9:47 AM CDT 12/23/2024 10:07 AM CDT Ramy Aguilera MD LAB BLOOD ORDERABLES Final R esult Performing Organization Address [facility] Co de Phone Number DARRIN[address] [place] [address] * Uric acid (12/23/2024 9:47 AM CDT) [facility] Uric acid 6.3 2.5 - 7.0 mg/dL Comment:Testing performed by : [address] [address] Blood 12/23/2024 9:47 AM CDT 12/23/2024 1:11 PM CDT Ramy Aguilera MD LAB BLOOD ORDERABLES Final R esult Performing Organization Address City/[facility]/ZIP Co de Phone Number JOSELYN [address] [employer] [place], [place] [id number] * (ABNORMAL) Comprehensive metabolic panel (12/23/2024 9:47 AM CDT) Pathologist [facility] Sodium 139 135 - 145 mmol/L Comment:Testing performed by : [address] [address] Potassium, pl 3.2(L) 3.3 - 4.9 mmol/L JOSELYN Comment:Testing performed by : [address], [place]., [address] Chloride 97 97 - 110 mmol/L JOSELYN Comment:Testing performed by : [address], [place]., [address] CO2 27 22 - 32 mmol/L JOSELYN Comment:Testing performed by : [address], [place]., [address] Anion gap 15 2 - 15 mmol/L JOSELYN Comment:Testing performed by : [address] [address] BUN 5(L) 6 - 25 mg/dL JOSELYN Comment:Testing performed by : [address] [address] Creatinine 0.70 0.60 - 1.10 mg/dL JOSELYN Comment:Testing performed by : [address] [address] Glucose 90 70 - 199 mg/dL [facility] Comment: Interpretive Data Fasting glucose >/= [...] was last revised 2022. Testing performed by: [address] [address] Calcium 9.4 8.5 - 10.3 mg/dL JOSELYN Comment:Testing performed by : [address] [address] Bilirubin, total 0.6 0.1 - 1.2 mg/dL JOSELYN Comment:Testing performed by : [address] [place]., [address] Protein, pl 5.7(L) 6.5 - 8.5 g/dL JOSELYN VAZQUEZ Comment:Testing performed by : [address] [address] Albumin 3.6 3.5 - 5.0 g/dL JOSELYN VAZQUEZ Comment:Testing performed by : [address] [address] Alk phos 242(H) 40 - 130 Units/L JOSELYN Comment:Testing performed by : [address] [address] ALT 7 7 - 45 Units/L JOSELYN Comment:Testing performed by : [address] [address] AST 30 10 - 45 Units/L JOSELYN Comment:Testing performed by : [address] [address] Blood 12/23/2024 9:47 AM CDT 12/23/2024 9:48 AM CDT us Ramy Aguilera MD LAB BLOOD ORDERABLES Final R esult JOSELYN [address] [facility] Department of Laboratories [place], [place] [id number] * PET/CT FDG Skull to Thigh (12/15/2024 [...] has increased in size and activity. A traffic workforce representative right axillary lymph node measuring 2.2 [...] 6.2 previously. Bilateral inguinal hypermetabolic lymphadenopathy. The traffic workforce representative left inguinal lymph node measures 3.5 [...] Fabiano Santana M.D. LB: CHAITANYA Report ID: [id number] Reading Location: [id number] Procedure Note Fabiano Santana MD - 12/15/2024 [...] 6.2 previously. Bilateral inguinal hypermetabolic lymphadenopathy. The traffic workforce representative left inguinal lymph node measures 3.5 [...] Fabiano Santana M.D. LB: CHAITANYA Report ID: [id number] Reading Location: [place] [address] us Paige Giordano MOVERS IMG PET PROCEDURES Final Resu lt * POCT glucose (12/15/2024 8:33 AM CDT) [facility] Glucose, POC 94 70 - 199 mg/dL Comment:Testing performed by : [address] [address] Blood 12/15/2024 8:33 AM CDT 12/15/2024 8:33 AM CDT us Ramy Aguilera MD LAB POCT ORDERABLES - DEVICE Final Result D[facility]INBTV RE [address] [facility] Department [place] [address] * (ABNORMAL) Blood smear review (12/09/2024 9:12 AM CDT) [facility] RBC morphology Consistent with RBC Indicies Comment:Testing performed by : [address] [address] Platelet estimate Decreased(A) JOSELYN Comment:Testing performed by : [facility], [address] [place] [address]., [address] Blood 12/09/2024 9:12 AM CDT 12/09/2024 9:14 AM CDT us Ramy Aguilera MD LAB BLOOD ORDERABLES Final R esult Performing Organization Address City/[facility]/ZIP Co de Phone Number JOSEYLN [address] [place] [address] * eGFR (12/09/2024 9:12 AM CDT) eGFR [...] reviewed 2021. Testing performed by: [facility], [address] [place] [address]., [address] Blood 12/09/2024 9:12 AM CDT 12/09/2024 9:14 AM CDT us Ramy Aguilera MD LAB BLOOD ORDERABLES Final R esult JOSELYN [address] [place] [address] * (ABNORMAL) Differential, auto (12/09/2024 9:12 AM CDT) Neutrophil abs 2.40 1.50 - 6.50 K/cumm Comment:Testing performed by : [address] [address] Imm gran abs 0.05 0.00 - 0.10 K/cumm JOSELYN Comment:Testing performed by : [address] [address] Lymphocyte abs 13.72(H) 0.80 - 3.30 K/cumm JOSELYN Comment:Testing performed by : [address] [address] Monocyte abs 0.28 0.20 - 0.80 K/cumm [facility] Comment:Testing performed by : [address] [address] Eosinophil abs 0.04 0.00 - 0.50 K/cumm [facility] Comment:Testing performed by : [address] [address] Basophil abs 0.06 0.00 - 0.10 K/cumm [facility] Comment:Testing performed by : [address] [address] Neutrophil pct 14.5 % [facility] Comment: Interpretive Data Percent cell count reference ranges are not reported, since discordance with absolute values may lead to misinterpretation of CBC data. Current Interpretive Data was last revised on 2017. Testing performed by: [address] [address] Imm gran pct 0.3 % [facility] Comment: Interpretive Data Percent cell count reference ranges are not reported, since discordance with absolute values may lead to misinterpretation of CBC data. Current Interpretive Data was last revised on 2017. Testing performed by: [address] [address] Lymphocyte pct 82.9 % [facility] Comment: Interpretive Data Percent cell count reference ranges are not reported, since discordance with absolute values may lead to misinterpretation of CBC data. Current Interpretive Data was last revised on 2017. Testing performed by: [address] [address] Monocyte pct 1.7 % [facility] Comment: Interpretive Data Percent cell count reference ranges are not reported, since discordance with absolute values may lead to misinterpretation of CBC data. Current Interpretive Data was last revised on 2017. Testing performed by: [address] [address] Eosinophil pct 0.2 % [facility] Comment: Interpretive Data Percent cell count reference ranges are not reported, since discordance with absolute values may lead to misinterpretation of CBC data. Current Interpretive Data was last revised on 2017. Testing performed by: [address] [address] Basophil pct 0.4 % [facility] Comment: Interpretive Data Percent cell count reference ranges are not reported, since discordance with absolute values may lead to misinterpretation of CBC data. Current Interpretive Data was last revised on 2017. Testing performed by: [address] [address] Blood 12/09/2024 9:12 AM CDT 12/09/2024 9:14 AM CDT us Ramy Aguilera MD LAB BLOOD ORDERABLES Final R esult [facility] [address] [facility] Department of Laboratories [place], [place] [id number] * (ABNORMAL) CBC with auto differential (12/09/2024 9:12 AM CDT) WBC 16.55(H) 3.80 - 9.90 K/cumm Comment:Testing performed by : [address] [address] Hgb 8.8(L) 11.9 - 15.5 g/dL [facility] Comment:Testing performed by : [address] [address] Hct 26.9(L) 35.6 - 45.5 % [facility] Comment:Testing performed by : [address] [address] Plt 92(L) 150 - 400 K/cumm [facility] Comment:Testing performed by : [address] [address] MPV 9.4 9.1 - 12.3 fL [facility] Comment:Testing performed by : [address] [address] RBC 2.99(L) 3.90 - 5.20 M/cumm [facility] Comment:Testing performed by : [address], [address] MCV 90.0 81.3 - 96.4 fL [facility] Comment:Testing performed by : [address] [address] MCH 29.4 27.1 - 33.3 pg [facility] Comment:Testing performed by : [address], [address] MCHC 32.7 32.3 - 35.7 g/dL [facility] Comment:Testing performed by : [address] [address] RDW CV 15.3(H) 11.1 - 14.9 % [facility] Comment:Testing performed by : [address], [address] RDW SD 48.4(H) 35.7 - 48.1 fL [facility] Comment:Testing performed by : [address] [address] NRBC abs 0.00 0.00 - 0.01 K/cumm [facility] Comment:Testing performed by : [address] [address] ANC Prelim 2.40 1.50 - 6.50 K/cumm [facility] Comment: Interpretive Data The rapid ANC is a preliminary automated count and may vary from the final ANC (Neut Abs) reported in the WBC differential that follows. Current interpretive data was last revised 2024. Testing performed by: [address], [address] Blood 12/09/2024 9:12 AM CDT 12/09/2024 9:14 AM CDT Ramy Aguilera MD LAB BLOOD ORDERABLES Edited Result - Final Performing Organization Address [facility] de Phone Number [facility] [address] [place] [address] * hCG, blood, quantitative (12/09/2024 9:12 AM CDT) Pathologist [facility] [place] [...] last revised on 2023 Testing performed by: [address] [address] Blood 12/09/2024 9:12 AM CDT 12/09/2024 9:44 AM CDT Ramy Aguilera MD LAB BLOOD ORDERABLES Final R esult Performing Organization Address [facility] Co de Phone Number [facility] [address] [place] [address] * (ABNORMAL) Comprehensive metabolic panel (12/09/2024 9:12 AM CDT) [facility] Sodium 140 135 - 145 mmol/L Comment:Testing performed by : [address] [address] Potassium, pl 4.0 3.3 - 4.9 mmol/L [facility] VAZQUEZ Comment:Testing performed by : [address] [address] Chloride 102 97 - 110 mmol/L [facility] Comment:Testing performed by : [address] [address] CO2 27 22 - 32 mmol/L [facility] VAZQUEZ Comment:Testing performed by : [address] [address] Anion gap 11 2 - 15 mmol/L [facility] Comment:Testing performed by : [address] [address] BUN 5(L) 6 - 25 mg/dL [facility] Comment:Testing performed by : [address] [address] Creatinine 0.70 0.60 - 1.10 mg/dL [facility] Comment:Testing performed by : [address] [address] Glucose 96 70 - 199 mg/dL [facility] Comment: Interpretive Data Fasting glucose [...] was last revised 2022. Testing performed by: [address] [address] Calcium 9.2 8.5 - 10.3 mg/dL [facility] Comment:Testing performed by : [address] [address] Bilirubin, total 0.3 0.1 - 1.2 mg/dL [facility] Comment:Testing performed by : [address] [address] Protein, pl 5.6(L) 6.5 - 8.5 g/dL [facility] Comment:Testing performed by : [address] [address] Albumin 3.7 3.5 - 5.0 g/dL [facility] Comment:Testing performed by : [address] [address] Alk phos 192(H) 40 - 130 Units/L [facility] Comment:Testing performed by : [address] [address] ALT 13 7 - 45 Units/L [facility] VAZQUEZ Comment:Testing performed by : [address] [address] AST 20 10 - 45 Units/L [facility] VAZQUEZ Comment:Testing performed by : [address] [address] Blood 12/09/2024 9:12 AM CDT 12/09/2024 9:14 AM CDT us Ramy Aguilera MD LAB BLOOD ORDERABLES Final R esult [facility] [address] [facility] Department [place] [address] from Last 3 Months Additional Health Concerns Infection Onset Date Last Indicated C. difficile 11/18/2024 11/18/2024 Insurance [facility] Advance Directives For more information, please contact: [phone] * Full Code (Latest Code Status on File) Date Activated Date Inactivated Comments 09/22/2024 9:00 PM 09/24/2024 10:30 PM * Full Code Date Activated Date Inactivated Comments 09/17/2024 2:33 PM 09/17/2024 11:31 PM Care Teams Cleaner And Preparer Relationship Specialty Start Date End Date Satya Fernandez MD [address] [place] [address] PCP - General Internal Medicine 10/21/24 Ramy Aguilera MD [address] [place] [address] Medical Oncologist/Pulp Beater Internal Medicine 09/23/24
--- OUTSIDE RECORDS SUMMARY | 2025-02-21 01:24 | XMS_ITS | Patient Health Record ---
Author Organization [facility] Address [address] [place] [address] Care Team Providers Care Jacquard Card Cutter Name Role Phone Rebecca Satya Primary Care Provider AbeRichard Unavailable [phone] Minerva Peacock Unavailable [phone] Allergies Allergen (clinical drug ingredient) Drug/Non Drug Allergy documented on EMR Reaction Allergy Type Onset Date Status azithromycin Zithromax Unknown Drug Allergy Acti ve codeine Codeine Unknown Drug Allergy Active Results Component Value Reference Range Notes 14 Panel Urine Drug Screen Reviewed date:01/07/2025 [...] neg OXY neg PCP neg BUP POS 14 Panel Urine Drug Screen Reviewed date:11/11/2024 02:32:46 PM Interpretation: Performing Lab: Notes/Report: THC POS JULISA neg MOP (OPI) neg AMP neg MET neg BAR neg BZO POS MDMA neg MTD neg OXY POS PCP neg BUP POS TCA neg FTY neg 12 Panel Urine Drug Screen Reviewed date:08/26/2024 04:14:22 PM Interpretation: Performing Lab: Notes/Report: THC pos JLUISA neg MOP (OPI) neg AMP neg MET [...] use disorder (F11.99) Referral Organization [facility] Referring Provider First Name Minerva [...] perineum Diagnosis 1 Boil (L02.92) Referral Organization [facility] Referring Provider First Name Satya Referring Provider Last Name Rebecca Referring Provider Speciality Internal M edicine Referred Provider Specialty Surgery General Notes Beena Red RN 01/2025 02:12:27 PM >confirmed taking clients insurance referral faxed letter mailed Clinical Notes [facility], [address] [address], [facility], , fax [phone] Referral Priority Urgent Medications Medication SIG (Take, [...] W/U Status Risk Notes Problem Tobacco user (255234430) Nicotine dependence, unspecified, uncomplicated (F17.200) Active confirmed Problem Anxiety (39013219) Anxiety (F41.9) Active confirmed Problem Exacerbation of asthma (131604573) Asthma exacerbation (J45.901) Active confirmed Problem Mild intermittent asthma (860411411) Mild intermittent asthma without complication (J45.20) Active confirmed Problem Tobacco use (965826249) Tobacco use disorder (F17.200) Active confirmed Problem Lymphoma involves multiple lymph node regions (finding) (706703247) Lymphoma of lymph nodes of multiple regions, 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) Active confirmed Problem Opioid use disorder (2456185272) Opioid use disorder (F11.99) Active confirmed Vital Signs Heart Rate 86 /min 01/07/2025 Temperature 98.5 degrees Fahrenheit 01/07/2025 Respiratory Rate 16 /min 01/07/2025 Oximetry 95 % 01/07/2025 Blood pressure diastolic 64 mm Hg 01/07/2025 Height 62in in 01/07/2025 Blood pressure systolic 98 mm Hg 01/07/2025 Weight 114.4lbs lbs 01/07/2025 BMI 20.92 kg/m2 01/07/2025 Encounters Encounter Location Date Provider Diagnosis [facility] [address] [place] [address] 09/24/2024 [facility] [address] [place] [address] 10/13/2024 Satya Fernandez [facility] [address] [place] [address] 10/28[facility]2024 [facility] [address] [place] [address] 11/03/2024 Satya Fernandez UTI symptoms R39.[address] [place] [address] 11/29/2024 Satya Fernandez Anxiety F41.9 [facility] [address] [place] [address] 01/03/2025 Satya Fernandez [address] [place] [address] 01/04/2025 Satya Fernandez Anxiety F41.[address] [place] [address] 01/11/2025 Satya Fernandez Anxiety F41.[address] [place] [address] 01/12/2025 Satya Fernandez [facility] [address] [place] [address] 09/27/2024 Richard Fish [facility] [address] [place] [address] 10/11/2024 Satya Fernandez [facility] [address] [place] [address] 10/20/2024 Satya Fernandez Lymphoma of lymph nodes of multiple regions, unspecified lymphoma type C85.98 ; Anxiety F41.9 and Opioid use disorder F11.99 [facility] [address] [place] [address] 10/25/2024 Satya Fernandez [facility] [address] [place] [address] 10/25/2024 Satya Fernandez [facility] [address] [place] [address] 10/25/2024 Satya Fernandez [address] [address] [place] [address] 10/25/2024 Satya Fernandez [address] [address] [place] [address] 10/25/2024 Satya Fernandez Lymphoma of lymph nodes of multiple regions, unspecified lymphoma type C85.98 ; Anxiety F41.9 and Opioid use disorder F11.99 [facility] [address] [facility] [place] [address] 10/26/2024 Satya Fernandez [address] [address] [address] [facility] [place] [address] 10/26/2024 Satya Fernandez [address] [address] [address] [place] [address] 11/23/2024 Satya Fernandez Lymphoma of lymph nodes of multiple regions, unspecified lymphoma type C85.98 and Anxiety F41.9 [address] [address] [address] [place] [address] 12/07/2024 Satya Fernandez [address] [address] [address] [facility] [place] [address] 12/07/2024 Satya Fernandez Lymphoma of lymph nodes of multiple regions, unspecified lymphoma type C85.98 [facility] [address] [place] [address] 12/19/2024 Satya Fernandez Lymphoma of lymph nodes of multiple regions, unspecified lymphoma type C85.98 [facility] [address] [place] [address] 12/21/2024 Satya Fernandez [facility] [address] [address] 12/27/2024 Satyaovidio Fernandez Lymphoma of lymph nodes of multiple regions, unspecified lymphoma type C85.98 and Anxiety F41.9 [facility] [address] [address] 12/27/2024 Satya Fernandez [address] [address] 01/03/2025 Satya Fernandez Lymphoma of lymph nodes of multiple regions, unspecified lymphoma type C85.[address] [place] [address] 01/10/2025 Satya Fernandez [address] [place] [address] 01/10/2025 Satya Fernandez [address] [address] 01/10/2025 Satya Fernandez Opioid use disorder F11.99 and Anxiety F41.[address] [place] [address] 01/11/2025 Satya Fernandez [address] [address] 01/12/2025 Satya Fernandez [address] [place] [address] 01/12/2025 Satya Fernandez [address] [place] [address] 01/12/2025 Satya Fernandez [address] [place] [address] 01/24/2025 Satya Fernandez [address] [place] [address] 01/24/2025 Satya Fernandez [address] [place] [address] 01/24/2025 Satya Fernandez [address] [address] 01/25/2025 Satya Fernandez [address] [address] 01/25/2025 Satya Fernandez [address] [address] 01/25/2025 Satya Fernandez Anxiety F41.[address] [address] 01/31/2025 Satya Fernandez Opioid use disorder F11.99 and Anxiety F41.[address] [address] 01/31/2025 Satya Fernandez [address] [address] 02/08/2025 Satya Fernandez [address] [address] 02/08/2025 Satya Fernandez [address] [address] 02/08/2025 Satya Fernandez Anxiety F41.[address] [address] 02/08/2025 Satya Fernandez Opioid use disorder F11.[address] [address] 02/08/2025 Satya Fernandez [address] [address] 02/08/2025 Satya Fernandez [address] [address] 11/11/2024 Satya Fernandez Lymphoma of lymph nodes of multiple regions, unspecified lymphoma type C85.98 ; Opioid use disorder F11.99 and Anxiety F41.[address] [address] 12/10/2024 Satya Fernandez Opioid use disorder F11.99 ; Anxiety F41.9 and Diarrhea R19.[address] [place] [address] 01/07/2025 Satya Fernandez Opioid use disorder F11.99 ; Anxiety F41.9 ; Boil L02.92 and Lymphoma of lymph nodes of multiple regions, unspecified lymphoma type C85.98 [address] [address] [place] [address] 05/27/2024 Jenia Heavens Opioid use disorder F11.99 and Nicotine dependence, unspecified, uncomplicated F17.200 [address] [address] [place] [address] 07/08/2024 Jenia Heavens Opioid use disorder F11.99 and Nicotine dependence, unspecified, uncomplicated F17.200 [address] [address] [address] [place] [address] 08/19/2024 Jenia Heavens Opioid use disorder F11.99 and Tobacco use disorder F17.200 [address] [address] [address] [place] [address] 10/01/2024 Satya Rebecca Opioid use disorder F11.99 ; Lymphoma of lymph nodes of multiple regions, unspecified lymphoma type C85.98 ; Tobacco use disorder F17.200 and Anxiety F41.[address] [place] [address] 05/13/2024 Minerva Peacock Patient underweight R63.6 ; Opioid use disorder F11.99 ; Non-tobacco user Z78.9 and Nutritional counseling Z71.[address] [place] [address] 10/12/2024 Satya Fernandez Opioid use disorder F11.99 ; Lymphoma of lymph nodes of multiple regions, unspecified lymphoma type C85.98 and Anxiety F41.9 Assessments Encounter Date Diagnosis (ICD Code) Assessment Notes Treatment Notes Treatment Clinical Notes Section Notes 11/03/2024 UTI symptoms (ICD-10 - R39.9) 10/01/2024 Opioid use disorder (ICD-10 - F11.99) 10/01/2024 Lymphoma of lymph nodes of multiple regions, unspecified lymphoma type (ICD-10 - C85.98) F/U WITH WASH U FOR TREATMENT 11/23/2024 Lymphoma of lymph nodes of multiple regions, unspecified lymphoma type (ICD-10 - C85.98) 01/07/2025 Opioid use disorder (ICD-10 - F11.99) 01/03/2025 Lymphoma of lymph nodes of multiple regions, unspecified lymphoma type (ICD-10 - C85.98) 12/27/2024 Lymphoma of lymph nodes of multiple regions, unspecified lymphoma type (ICD-10 - C85.98) 12/07/2024 Lymphoma of lymph nodes of multiple regions, unspecified lymphoma type (ICD-10 - C85.98) 11/11/2024 Lymphoma of lymph nodes of multiple regions, unspecified lymphoma type (ICD-10 - C85.98) 11/11/2024 Opioid use disorder (ICD-10 - F11.99) 05/27/2024 Nicotine dependence, unspecified, uncomplicated (ICD-10 - F17.200) 05/27/2024 Opioid use disorder (ICD-10 - F11.99) 05/13/2024 Patient underweight (ICD-10 - R63.6) 05/13/2024 Opioid use disorder (ICD-10 - F11.99) 11/29/2024 Anxiety (ICD-10 - F41.9) 12/19/2024 Lymphoma of lymph nodes of multiple regions, unspecified lymphoma type (ICD-10 - C85.98) 01/10/2025 Opioid use disorder (ICD-10 - F11.99) 02/08/2025 Opioid use disorder (ICD-10 - F11.99) 02/08/2025 Anxiety (ICD-10 - F41.9) 01/11/2025 Anxiety (ICD-10 - F41.9) 01/04/2025 Anxiety (ICD-10 - F41.9) 10/12/2024 Lymphoma of lymph nodes of multiple regions, unspecified lymphoma type (ICD-10 - C85.98) INCREASE OXYCODONE DUE TO UNCONTROLLED PAIN.2ND RX FOR OXYCODONE DUE TO SHORTAGE OF 10 MG TABS 10/12/2024 Opioid use disorder (ICD-10 - F11.99) Message left with pharmacy re: concomitant Suboxone and Oxycodone 10/20/2024 Lymphoma of lymph nodes of multiple regions, unspecified lymphoma type (ICD-10 - C85.98) 12/10/2024 Anxiety (ICD-10 - F41.9) 12/10/2024 Opioid use disorder (ICD-10 - F11.99) 10/25/2024 Lymphoma of lymph nodes of multiple regions, unspecified lymphoma type (ICD-10 - C85.98) 08/19/2024 Tobacco use disorder (ICD-10 - F17.200) 08/19/2024 Opioid use disorder (ICD-10 - F11.99) 07/08/2024 Opioid use disorder (ICD-10 - F11.99) 01/31/2025 Opioid use disorder (ICD-10 - F11.99) 01/25/2025 Anxiety (ICD-10 - F41.9) 01/07/2025 Anxiety (ICD-10 - F41.9) SHE WILL INCREASE CLONAZEPAM TO 2 MG TID AND WILL INCREASE RX TO 2 MG TABS WHEN REFILL IS DUE. 01/07/2025 Boil (ICD-10 - L02.92) 01/31/2025 Anxiety (ICD-10 - F41.9) 07/08/2024 Nicotine dependence, unspecified, uncomplicated (ICD-10 - F17.200) 10/25/2024 Anxiety (ICD-10 - F41.9) 12/10/2024 Diarrhea (ICD-10 - R19.7) 01/10/2025 Anxiety (ICD-10 - F41.9) 10/20/2024 Anxiety (ICD-10 - F41.9) 11/23/2024 Anxiety (ICD-10 - F41.9) 05/13/2024 Non-tobacco user (ICD-10 - Z78.9) 11/11/2024 Anxiety (ICD-10 - F41.9) 12/27/2024 Anxiety (ICD-10 - F41.9) 10/12/2024 Anxiety (ICD-10 - F41.9) INCREASE CLONAZEPAM DUE TO UNCONTROLLED ANXIETY. DISCUSSED RISK OF RESPIRATORY DEPRESSION WITH OPIOIDS OR ALCOHOL. SHE UNDERSTANDS THE RISKS, INCLUDING . 10/01/2024 Tobacco use disorder (ICD-10 - F17.200) 10/01/2024 Anxiety (ICD-10 - F41.9) 05/13/2024 Nutritional counseling (ICD-10 - Z71.3) 10/20/2024 Opioid use disorder (ICD-10 - F11.99) 10/25/2024 Opioid use disorder (ICD-10 - F11.99) 01/07/2025 Lymphoma of lymph nodes of multiple regions, unspecified lymphoma type (ICD-10 - C85.98) 05/13/2024 Other Patient agrees to take medication [...] may self-administer their own oral medications per [facility] Protocol. 07/08/2024 Other Patient agrees to take medication as prescribed. Discussed medication side effects, adverse effects, risks, benefits, as well as interactions. Encouraged non-use of opioids. Has naloxone. Recommended participation in recovery groups and/or counseling services. May contact office with questions or concerns. Patient may self-administer their own medications or may self-administer their own oral medications per [facility]. 08/19/2024 Other Discussed medication side effects, adverse effects, risks, benefits, as well as interactions. Encouraged non-use of opioids. Has naloxone. Recommended participation in recovery groups and/or counseling services. May contact office with questions or concerns. Patient may self-administer their own medications or may self-administer their own oral medications per [facility]. 11/03/2024 Other Learning About the Safe [...] Insured Coverage Start Date Coverage End Date [employer] [address] [place] [address] [id number] Soha Marrero Self - patient is the insured 2 [employer] [address] [place] [address] [id number] Soha Marrero Self - patient is the insured 4 Medical (General) History Medical History History ICD Code Bipolar 1 Disorder Alcohol Use Disorder Lymphoma Surgical History Surgery Date(Month/Year) Ectopic Open Chest Surgery Chemo [place] 2022 Hospitalization History Reason Date(Month/Year) Clotilde huggins
--- OUTSIDE RECORDS SUMMARY | 2025-02-21 01:24 | XMS_ITS | Data Portability ---
Author Organization [facility], Main Office Address [address] [place] [address] Assessment No assessment recorded. Plan of Treatment Reminders Order Date Submit Date Provider Last Modified By Organization Details Last Modified Time Details Appointments None recorded. Lab None recorded. Referral None recorded. Procedures None recorded. Surgeries None recorded. Imaging None recorded. Medication Orders Bactrim DS 800 mg-160 mg tablet [facility] [place], [address], 05:01:17 Patient TargetsNo targets recorded. Patient InstructionsNo instructions recorded. Reason for Referral None Reported. Problems Name Problem SNOMED Code Status Onset Date Resolution Date Notes Provider Name and Address Organization Details Recorded Time Abscess of buttock 78269932 Active Miki horan MD [address], [address] , [facility] 12:25:52 Abscess 572470671 Active Miki horan MD [address], [address] , [facility] 11:32:47 Problem Notes None recorded. Procedures Surgical History Date Name Laterality Status Provider Name and Address Organization Details Recorded Time other completed Evie Garnett MA [facility] 02/08/2025 08:46:26 other completed Evie Garnett MA [facility] 02/08/2025 08:46:48 other completed Evie Garnett MA [facility] 02/08/2025 08:47:04 other completed Evie Garnett MA [facility] 02/08/2025 12:10:34 Imaging Results None recorded. Procedure Notes None recorded. Medical Equipment None Reported. Allergies Allergen ID Allergen Name Allergen Category Reaction Reaction Severity Criticality Documentation Date Start Date Code Code System Note Provider Name and Address Organization Details Recorded Time 13458 Zithromax medicatio n Not available Not available Not available 02/08/2025 95048 4 [facility] 82532 codeine medicatio n Not available Not available Not available 02/08/2025 2670 RxNorm CHARISSE Freeman [facility] 08:50:09 Medications Name Sig Start Date Stop Date Status Note LastModified by Organization Details LastModified Time Bactrim DS 800 mg-160 mg tablet Take 1 tablet twice a day by oral route for 5 days. 02/20 completed changed from Cipro Not Available Not Available Not Available Vitals Date Recorded Body height Body mass index (BMI) Body weight Body temperature Respiratory rate Provider Name and Address Organization Details Last Updated DateTime 02/08/2025 157.48 cm 21.9 kg/m2 42651.0 8 g 98.6 [degF] 15 /min Evie Garnett MA [facility] 12:16:57 Social History Question Answer Notes LastModified by Organizat ion Details LastModified Time Tobacco Smoking Status Current Every Day Smoker CHARISSE Freeman [facility] 02/08/2025 08:49:19 What Is Your Level Of [...] 02/08/2025 Do You Use Sunscreen Routinely? No [place] [address] Information not available 02/08/2025 Sex: Unknown Functional Status Question Answer Note LastModified by Organizat ion Details LastModified Time Do you use any illicit or recreational drugs? Yes cannabis [place] [address] Information not available 02/08/2025 What is your level of alcohol consumption? None [place] [address] Information not available 02/08/2025 Are you currently employed? No [place] [address] Information not available 02/08/2025 Mental Status None recorded. Family History Relationship Description Onset Age of this Age Resolved Age Notes LastModified by Organization Details LastModified Time Father No current problems or disability [place] [address] Not available 02/08 08:47:21 Mother No current problems or disability [place] [address] Not available 02/08 08:47:22 Medical History Condition Response OTHER # 1 DEPRESSION (INCLUDING POST ) CANCER: SPECIFY Y Gynecological HistoryNo gynecological history recorded. Obstetrics History GPAL:G 0 P 0 0 0 0 Past Encounters Encounter ID Performer Location Encounter Start Date Encounter Closed Date Diagnosis/Indication Diagnosis SNOMED-CT Code Diagnosis ICD10 Code Diagnosis IMO Codes Diagnosis Note [id number] Miki horan MD [facility] [address] [facility] [address] [place] [address] 02/08/2025 11:43:17 02/08/2025 15:50:28 Abscess of buttock 33929028 L02.31 1889308 Open wound of R buttock. Will rx bactrim and f/u PRN if wound does not resolve. Continue sitz baths. Abscess 678561566 L02.91 54645 Health Concerns Section Related Observation LastModified by Organization Detai ls LastModified Time None Recorded Concern Status LastModified by Organization Details LastModified Time None Recorded Advance Directives Directive None Recorded Payers Insurance Date Sequence Insurance Name Policy Number Policy Woods Covered Member ID Woods Member ID Guarantor Name 02/08/2025 1 [facility] (MEDICAID HMO) [id number] Soha Marrero [id number] Soha Marrero Notes Date Note Type Note [...] fevers at home. Miki Herr MD [address] [facility], [place] [address], [place], [address], [place] - [facility] 02/09/2025 11:33:02 OBGyn Episode No OBEpisode recorded.
--- OUTSIDE RECORDS SUMMARY | 2025-02-21 01:24 | XMS_ITS | Encounter Summary ---
Author Organization [facility] Address [facility] [place] [address] Care Team Providers Care Brick Tosser Name Role Phone None, Provider Primary Care Provider Jen ble Encounter Details Date Type Department Care Team (Late st Contact Info) Description 01/27/2025 Results Follow-Up [facility] Care [address] [place], [place] [id number] Thalia Hall FNP [address] [place], [place] [id number] Pathology Social History Tobacco Use Types Packs/Day [...] Sex Assigned at Female 02/09/2025 4:27 PM [employer] Legal Sex Female 7:16 PM CDT Gender Identity Not on file Sexual Orientation Not on file documented as of this encounter Plan of Treatment Not on file documented as of this encounter Visit Diagnoses Not on filedocumented in this encounter Care Teams Brick Tosser Relationship Specialty Start Date End Date None, Provider, PCP - General UNKNOWN PHYSICIAN SPECIALTY 11/19/22 documented as of this encounter
--- OUTSIDE RECORDS SUMMARY | 2025-02-21 01:24 | XMS_ITS | Clinical Summary ---
Author Organization [facility] Address [address] [facility] [address] Care Team Providers Care Bread Jockey Name Role Phone Unavailable Primary Care Provider [...] Pain, Mild. Active naloxone (NARCAN) 4 mg/spray [place], Non-Aerosol EMERGENCY USE ONLY: Administer 1 spray [...] as needed for Nausea/Emesis. 30 Tablet 2 03/13/20 23 Active allopurinoL (ZYLOPRIM) 300 mg tablet [...] Comments Blood Pressure 109/66 04/17/2023 8:40 AM DONOR RELATIONS COORDINATOR Pulse 111 04/17/2023 8:40 AM DONOR RELATIONS COORDINATOR Temperature 36.6 C (97.9 F) 04/17/2023 8:40 AM DONOR RELATIONS COORDINATOR Respiratory Rate 10 04/17/2023 8:40 AM DONOR RELATIONS COORDINATOR Oxygen Saturation 92% 03/27/2023 11:06 AM DONOR RELATIONS COORDINATOR Inhaled Oxygen Concentration - - Weight 51.3 kg (113 lb) 04/17/2023 8:40 AM DONOR RELATIONS COORDINATOR Height 162.6 cm (5' 4) 03/24/2023 6:27 PM DONOR RELATIONS COORDINATOR Body Mass Index 19.4 03/24/2023 6:27 PM DONOR RELATIONS COORDINATOR Plan of Treatment Health Maintenance Due Date [...] Advance Directives For more information, please contact: [phone] * Full Code (Latest Code Status on File) Date Activated Date Inactivated Comments 03/25/2023 1:09 AM 03/26/2023 3:29 PM
--- OUTSIDE RECORDS SUMMARY | 2025-02-21 01:24 | XMS_ITS | Clinical Summary ---
Author Organization [facility] Address [address] [facility] [place] [address] Care Team Providers Care Cloth Winder Name Role Phone Unavailable Primary Care Provider Unavailabl e Source Comments [facility],non-owned Affiliates and Associated Physician Practices is amultiple site organization consisting of ambulatory clinics and hospital sitesin [place], [place], [place]. This disclosure is being madepursuant to the Care Everywhere program and may not contain all information available regarding this patient. Last updated 17.[facility] Social History Tobacco Use Types Packs/Day Years [...] patient's age to complete this topic Insurance [facility]
== END 2025-02-21 01:21 | disposition left against medical advice (07) ==
LOC: ANHED 02-21 01:20
DX: R52 Pain, unspecified (principal)
CPT/HCPCS: 99199

== ENCOUNTER 2025-03-15 20:31 | Emergency (ER) | payer OTHER, SELFPAY ==
--- OUTSIDE RECORDS SUMMARY | 2024-10-11 14:40 | XMS_ITS ---
Author Organization [facility] Address [address] [place] [address] Phone [phone] Care Team Providers Care Bar Porter Name Role Phone Satya Fernandez Primary Care Provider REASON FOR VISIT 2 Week F/U Social History Sex Observation Social History Observation Description Sex Observation Female Sexual Orientation Social History Observation Description Sexual Orientation Straight or heterose xual Gender Identity Social History Observation Description Gender Identity Female Encounters Date Time Type Facility Location Provider Diagnosis 10/11/2024 02:40 PM Office Visit [address] [place] [address] Satya Fernandez Plan Of Treatment No Information Medical (General) History Medical History History ICD Code Bipolar 1 Disorder Alcohol Use Disorder Lymphoma Surgical History Surgery Date(Month/Year) Ectopic Open Chest Surgery Chemo Port 2022 Hospitalization History Reason Date(Month/Year) Kettler x2 Progress Notes * Soha MARRERO RDOB:[birth year] (35 yo F)Acc No.[id number]:10/11/2024 UNLOCKED PROGRESS NOTE Progress Notes Patient: Soha LLOYD Provider: Devin Fernandez :1990 A ge:34 Y S ex:Female Date:10/11/2024 Address:[address] [place], [place] [address] Subjective: * Chief Complaints: * 1 . 2 Week F/U. * Screening: * * Medical History: Objective: * Vitals: Assessment: Plan: * Treatment: * * Electronic signature of Kar Fernandez , [id number] on 03/15/2025 at 08:31 PM PRODUCT MANAGEMENT INTERNS[employer]IP Sign off status: Pending * Provider: Devin Fernandez Date: 0 10/11/2024 Generated for Cassie valero/Claire/Mervat on: 1 05/16/2024 08:31 PM PRODUCT MANAGEMENT INTERNSHIP
--- NOTE | ~2025-03-15 | XR_ITS ---
EXAMINATION: XR chest 1V portable DATE: 03/15/2025 21:15 INDICATION: Edema. History of lymphoma. TECHNIQUE: A single frontal view of the chest was obtained. COMPARISON: Chest x-ray dated 03/29/2023 FINDINGS: Heart size is normal. No definite acute pulmonary findings. Negrita and mediastinum are normal IMPRESSION: 1. No acute findings in the portable AP chest. Reviewed, dictated and finalized at location T. AULIC SPECIALIST
--- OUTSIDE RECORDS SUMMARY | 2025-03-15 20:31 | XMS_ITS | Clinical Summary ---
Author Organization [facility] [place] [id number] Address [address] [place] [address] Care Team Providers Care Docent Coordinator Name Role Phone Ramy Aguilera MD Unavailable [phone] Satya Fernandez MD Primary Care Provider [phone] Allergies Active Allergy Reactions Criticality Noted Date [...] times daily, Indications: Panic Disorder, Reported on 02/24/2025 oxyCODONE (ROXICODONE) 5 mg immediate release tabletIndications: [...] treatment cycle. 10 tablet 12/24/19 25 Active predniSONE (DELTASONE) 50 mg [...] treatment cycle. 10 tablet 02/11/20 25 Active ondansetron ODT (ZOFRAN-ODT) 4 mg disintegrating tablet Take 2 tablets (8 mg total) by mouth every 8 (eight) hours as needed for nausea or vomiting 30 tablet 02/24/20 25 025 Active ondansetron ODT (ZOFRAN-ODT) 4 mg disintegrating tablet Take 2 tablets (8 mg total) by mouth every 8 (eight) hours as needed for nausea or vomiting 20 tablet 2 12/24/19 25 025 Discontin ued(Reord er) Active Problems [...] - Plan to discharge patient with outpatient [facility] follow-up on 09/30/24. Assessment & Plan [...] - Plan to discharge patient with outpatient [facility] follow-up on 09/30/24. Assessment & Plan [...] - Plan to discharge patient with outpatient [facility] follow-up on 09/30/24. Assessment & Plan [...] Encounters Date Type Department Care Team Description 03/08/2025 10:13 AM [employer] - 03/08/2025 11:59 PM [employer] Hospital Encounter [facility] OP Cardiac Testing [address] [place] [address] Follicular lymphoma, unspecified follicular lymphoma type, unspecified body region (HCC); Encounter for long-term (current) use of medications Discharge Disposition: Discharge to home or self care 02/24/2025 12:30 PM [employer] Clinical Support [facility] Medical Office Building 2 Radiation Oncology [address] [place] [address] Follicular lymphoma, unspecified follicular lymphoma type, unspecified body region (HCC) (Primary Dx) 02/24/2025 11:00 AM [employer] Infusion [address] [phone] Follicular lymphoma, unspecified follicular lymphoma type, unspecified body region (HCC) (Primary Dx); Diffuse follicle center lymphoma, unspecified body region (HCC); Prevention of chemotherapy-induced neutropenia 02/24/2025 10:30 AM [employer] Office Visit [facility] [address] [place] [phone] Ramy Aguilera MD Follicular lymphoma, unspecified follicular lymphoma type, unspecified body region (HCC) (Primary Dx); Prevention of chemotherapy-induced neutropenia; Diffuse follicle center lymphoma, unspecified body region (HCC) 02/24/2025 10:00 AM [employer] Lab [address] [address] Diffuse follicle center lymphoma, unspecified body region (HCC); Follicular lymphoma, unspecified follicular lymphoma type, unspecified body region (HCC); Prevention of chemotherapy-induced neutropenia 02/23/2025 Orders Only [facility] Medicine [facility] Oncology [address] [place] [phone] Ramy Aguilera MD Follicular lymphoma, unspecified follicular lymphoma type, unspecified body region (HCC) (Primary Dx); Prevention of chemotherapy-induced neutropenia 02/10/2025 11:00 AM [employer] Infusion [facility] at [address] [phone] Follicular lymphoma, unspecified follicular lymphoma type, unspecified body region (HCC) (Primary Dx); Prevention of chemotherapy-induced neutropenia 02/10/2025 10:30 AM [employer] Lab [facility] at [address] [address] Prevention of chemotherapy-induced neutropenia (Primary Dx); Follicular lymphoma, unspecified follicular lymphoma type, unspecified body region (HCC) 02/10/2025 Social Work [facility] Oncology [address] [place] [phone] Marycarmen Gray LCSW 02/03/2025 12:00 PM CDT Infusion [address] [phone] Follicular lymphoma, unspecified follicular lymphoma type, unspecified body region (HCC) (Primary Dx); Prevention of chemotherapy-induced neutropenia 02/03/2025 11:30 AM CDT Office Visit [facility] [address] [place] [phone] Ramy Aguilera MD Follicular lymphoma, unspecified follicular lymphoma type, unspecified body region (HCC) (Primary Dx); Prevention of chemotherapy-induced neutropenia 02/03/2025 11:00 AM CDT Lab [address] [address] Follicular lymphoma, unspecified follicular lymphoma type, unspecified body region (HCC); Prevention of chemotherapy-induced neutropenia 02/03/2025 Orders Only [facility] Oncology [address] [place] [phone] Ramy Aguilera MD 01/18/2025 Social Work [facility] [address] [place] [phone] Desirae Bates LCSW 01/13/2025 12:00 PM CDT Clinical Support [facility] Medical Office Building 2 Radiation Oncology [address] [place] [address] Follicular lymphoma, unspecified follicular lymphoma type, unspecified body region (HCC) (Primary Dx) 01/13/2025 10:30 AM CDT Infusion [address] [phone] Prevention of chemotherapy-induced neutropenia (Primary Dx); Follicular lymphoma, unspecified follicular lymphoma type, unspecified body region (HCC) 01/13/2025 10:00 AM CDT Office Visit [facility] [address] [place] [phone] Ramy Aguilera MD Follicular lymphoma, unspecified follicular lymphoma type, unspecified body region (HCC) (Primary Dx); Prevention of chemotherapy-induced neutropenia 01/13/2025 9:30 AM CDT Lab [address] [address] Follicular lymphoma, unspecified follicular lymphoma type, unspecified body region (HCC); Prevention of chemotherapy-induced neutropenia 01/12/2025 Orders Only [facility] Oncology [address] [place] [phone] Ramy Aguilera MD 12/30/2024 Orders Only [address] [phone] Paulina German RPh 12/23/2024 10:30 AM CDT Infusion [address] [phone] Prevention of chemotherapy-induced neutropenia (Primary Dx); Follicular lymphoma, unspecified follicular lymphoma type, unspecified body region (HCC) 12/23/2024 10:00 AM CDT Office Visit [facility] [address] [place] [phone] Ramy Aguilera MD Follicular lymphoma, unspecified follicular lymphoma type, unspecified body region (HCC) (Primary Dx); Prevention of chemotherapy-induced neutropenia 12/23/2024 9:30 AM CDT Lab [address] [address] Follicular lymphoma, unspecified follicular lymphoma type, unspecified body region (HCC); Prevention of chemotherapy-induced neutropenia 12/22/2024 Orders Only [facility] Oncology [address] [place] [phone] Ramy Aguilera MD 12/16/2024 Orders Only [address] [phone] Paulina German helena 12/15/2024 8:06 AM CDT - 12/15/2024 11:59 PM CDT Hospital Encounter [facility] Medical Office Building [address] [place] [phone] Follicular lymphoma, unspecified follicular lymphoma type, unspecified body region (HCC) Discharge Disposition: Discharge to home or self care from Last 3 Months Immunizations Immunization Administration [...] Sign Reading Time Taken Comments Blood Pressure 115/53 02/24/2025 10:43 AM [employer] Pulse 103 02/24/2025 10:43 AM [employer] Temperature 36.4 C (97.6 F) 02/24/2025 10:43 AM [employer] Respiratory Rate 18 02/24/2025 10:4 3 AM [employer] Oxygen Saturation 98% 02/24/2025 10: 43 AM [employer] Inhaled Oxygen Concentration - - Weight 50.8 kg (111 lb 15.9 oz) 025 10:43 AM [employer] Height 158.5 cm (5' 2.4) 12/23/2024 10 :45 AM CDT Body Mass Index 20.22 12/23/2024 10:45 AM CDT Plan of Treatment [...] 12/25/2020 11/27/2020, 11/06/2020 Influenza Vaccine (#1) 2024 04/10/2024, 2021 DTaP/Tdap/Td Vaccine (3 - Td or Tdap) 02/07/203205/2021, 11/05/2020 Procedures Procedure Name Priority Date/Time Associated Diagnosis Comments TRANSTHORACIC ECHO (TTE) COMPLETE W DOPPLER/CF WO CONTRAST Routine 03/08/2025 11:14 AM [employer] Follicular lymphoma, unspecified follicular lymphoma type, unspecified body region (HCC) Encounter for long-term (current) use of medications BLOOD SMEAR REVIEW Routine 02/24/2025 10 :12 AM [employer] Follicular lymphoma, unspecified follicular lymphoma type, unspecified body region (HCC) Prevention of chemotherapy-induc ed neutropenia EGFR STAT 02/24/2025 10:12 AM [employer] Follicular lymphoma, unspecified follicular lymphoma type, unspecified body region (HCC) Prevention of chemotherapy-induc ed neutropenia DIFFERENTIAL AUTO Routine 02/24/2025 10: 12 AM [employer] Follicular lymphoma, unspecified follicular lymphoma type, unspecified body region (HCC) Prevention of chemotherapy-induc ed neutropenia CBC WITH AUTO DIFFERENTIAL Routine 02/24/2025 10:12 AM [employer] Follicular lymphoma, unspecified follicular lymphoma type, unspecified body region (HCC) Prevention of chemotherapy-induc ed neutropenia COMPREHENSIVE METABOLIC PANEL STAT 02/24/2025 10:12 AM [employer] Follicular lymphoma, unspecified follicular lymphoma type, unspecified body region (HCC) Prevention of chemotherapy-induc ed neutropenia HCG, BLOOD, QUANTITATIVE STAT 02/24/2025 10:12 AM [employer] Follicular lymphoma, unspecified follicular lymphoma type, unspecified body region (HCC) Prevention of chemotherapy-induc ed neutropenia POCT GLUCOSE DEVICE Routine 2025 1 0:24 AM [employer] BLOOD SMEAR REVIEW Routine 02/10/2025 10 :45 AM [employer] Follicular lymphoma, unspecified follicular lymphoma type, unspecified body region (HCC) Prevention of chemotherapy-induc ed neutropenia EGFR STAT 02/10/2025 10:45 AM [employer] Follicular lymphoma, unspecified follicular lymphoma type, unspecified body region (HCC) Prevention of chemotherapy-induc ed neutropenia DIFFERENTIAL AUTO Routine 02/10/2025 10: 45 AM [employer] Follicular lymphoma, unspecified follicular lymphoma type, unspecified body region (HCC) Prevention of chemotherapy-induc ed neutropenia CBC WITH AUTO DIFFERENTIAL Routine 02/10/2025 10:45 AM [employer] Follicular lymphoma, unspecified follicular lymphoma type, unspecified body region (HCC) Prevention of chemotherapy-induc ed neutropenia COMPREHENSIVE METABOLIC PANEL STAT 02/10/2025 10:45 AM [employer] Follicular lymphoma, unspecified follicular lymphoma type, unspecified body region (HCC) Prevention of chemotherapy-induc ed neutropenia HCG, BLOOD, QUANTITATIVE STAT 02/10/2025 10:45 AM [employer] Follicular lymphoma, unspecified follicular lymphoma type, [...] DEVICE Routine 12/15/2024 8 :33 AM CDT from Last 3 Months Results * TRANSTHORACIC ECHO (TTE) COMPLETE W DOPPLER/CF WO CONTRAST (03/08/2025 11:14 AM [employer]) Estimated EF 59 % CONS SCIMAGE Anatomical Region Laterality Modality Ultrasound 03/08/2025 10:2 6 AM [employer] Narrative 03/08/2025 5:07 PM [employer] Transthoracic Echocardiographic Report Patient Name: SOHA MARRERO R : 1990 (35y ) Sex: F Study Date: 03/08/2025 10:26:39 AM Ht(Inch): 62 Wt(Lb): 111 BSA: 1.48 Package Designer: Olivia Song RDCS Order Provider: RAMY AGUILERA Heart Rate: 95 BMI: 20.3 BP: 115 / 53 Ref Provider: RAMY AGUILERA PROCEDURES: Echocardiographic Report: ([id number]) Transthoracic complete echo, 2D, spectral and tissue Doppler, color flow Doppler, M-mode. 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 FINDINGS: Left Ventricle: Normal left ventricular cavity size. Normal Left ventricular wall thickness. Normal left ventricular systolic function. The Ejection Fraction is visually estimated to be 59 %. The average global longitudinal strain rate is normal. The LV global strain is: -18.4 %. Diastolic Function Normal Left ventricular diastolic function, mitral inflow pattern is Normal and E to E' ratio <8 suggesting normal pulmonary wedge pressure and no LV diastolic dysfunction. No Thrombus noted in Left Ventricle. Regional Wall Motion: There are no regional wall motion abnormalities. Right Ventricle: Normal right ventricular size. Normal right ventricular systolic function. Left Atrium: The left atrium is normal in size. Right Atrium: The right atrium is normal in size. Atrial Septum: The interatrial septum is normal in appearance. Mitral Valve: Normal mitral valve leaflet structure. There is mild mitral valve regurgitation. No mitral valve stenosis. Aortic Valve: Valve normal in structure and fuction. The mean transaortic gradient is 4 mmHg. The aortic valve area by the continuity equation (using VTI) is 2.4 cm2. Tricuspid Valve: Valve normal in structure and fuction. Pulmonic Valve: Pulmonic Valve not well visualized due to poor echo windows. Pericardium: No pericardial effusion. Aorta: Normal aortic root. IVC: IVC is normal in size. IVC Collapses normally with inspiration. The estimated RA pressure is 0-5 mmHg. CONCLUSIONS: 1. Normal left ventricular systolic function. The Ejection Fraction is visually estimated to be 59 %. 2. Normal global longitudinal strain.-18.4%. MEASUREMENTS: 2D/MM Value Range Doppler Value LVIDd 2D 3.79 cm [ 3.50 - 5.70 ] AV Peak Kraig 1.25 m/s LVIDs 2D 2.62 cm [ 3.10 - 4.60 ] AV Peak PG 6.25 mmHg IVSd 2D 0.88 cm [ 0.60 - 1.20 ] AV Mean PG 4.00 mmHg LVPWd 2D 1.22 cm [ 0.60 - 1.10 ] AV VTI 25.30 cm LV Thickness Ratio 0.72 LVOT Peak Kraig 1.05 m/s LV Mass 2D 127.06 g LVOT Peak PG 4.41 mmHg LV Mass Index 2D 85.62 g/m2 LVOT Mean PG 2.00 mmHg RWT 0.64 LVOT VTI 19.30 cm Visually Estimated EF 59 % LVOT Diam 2.00 cm LV GLS -18.4 % [ -18.0 - -16.0 ] SV LVOT 61.00 cm3 LA Dimension 2D 2.50 cm [ 1.90 - 4.00 ] ANJANA VTI 2.40 cm2 LA Length 2C 3.41 cm ANJANA Vmax 2.64 cm2 LA Length 4C 3.99 cm LVOT/AV VTI 0.76 - Dimensionless index (DVI) LA Volume BP 25.00 ml MV E Peak Kraig 0.81 m/s LA Volume Index 16.85 ml/m2 [ 16.00 - 34.00 ] MV A Peak Kraig 0.58 m/s RVDd 2D 2.04 cm [ 2.00 - 3.00 ] MV E/A 1.40 ratio TAPSE 3.15 cm [ 1.71 - 5.00 ] MV Decel Time 148.00 msec AoR Diam 2D 2.40 cm [ 2.00 - 3.70 ] Med E` Kraig 0.13 m/s Ao Root Index 1.62 cm/m2 [ 1.00 - 2.00 ] Lat E` Kraig 0.17 m/s Average E/E` 5.40 RV S` 14.70 cm/sec TR Peak Kraig 1.77 m/s TR Peak PG 12.5 mmHg PV Peak Kraig 0.97 m/s PV Peak PG 3.76 mmHg PI ED Kraig 135.00 - ATTESTATION: I have reviewed and interpreted the pertinent images and measurements of this study. I attest to the conclusions in the final report that is provided above. DISCLAIMER: The study images and the final report will be retained in the patient chart by the [facility] for the legally required time period. This chart constitutes the legal record of any testing performed. Electronically Signed By: Sultan Nathen MD 03/08/2025 5:06:19 PM [employer] Procedure Note Sultan Katherine Sena MD - 03/08/2025 Transthoracic Echocardiographic Report Patient Name: SOHA MARRERO R : 1990 (35y ) Sex: F Study Date: 03/08/2025 10:26:39 AM Ht(Inch): 62 Wt(Lb): 111 BSA: 1.48 Package Designer: Olivia Snog RDCS Order Provider: RAMY AGUILERA Heart Rate: 95 BMI: 20.3 BP: 115 / 53 Ref Provider: RAMY AGUILERA PROCEDURES: Echocardiographic Report: ([id number]) Transthoracic complete echo, 2D,spectral and tissue Doppler, color flow Doppler, M-mode. INDICATIONS: C82.90 Follicular lymphoma, unspecified, unspecified site and Z79.899Other terminal block assembler (current) drug therapy. FINDINGS: Left Ventricle: Normal left ventricular cavity size. Normal Leftventricular wall thickness. Normal left ventricular systolic function. The EjectionFraction is visually estimated to be 59 %. The average global longitudinal strain rate isnormal. The LV global strain is: -18.4 %. Diastolic Function Normal Left ventriculardiastolic function, mitral inflow pattern is Normal and E to E' ratio <8 suggesting normalpulmonary wedge pressure and no LV diastolic dysfunction. No Thrombus noted in LeftVentricle. Regional Wall Motion: There are no regional wall motion abnormalities. Right Ventricle: Normal right ventricular size. Normal right ventricularsystolic function. Left Atrium: The left atrium is normal in size. Right Atrium: The right atrium is normal in size. Atrial Septum: The interatrial septum is normal in appearance. Mitral Valve: Normal mitral valve leaflet structure. There is mild mitralvalve regurgitation. No mitral valve stenosis. Aortic Valve: Valve normal in structure and fuction. The mean transaorticgradient is 4 mmHg. The aortic valve area by the continuity equation (using VTI) is 2.4cm2. Tricuspid Valve: Valve normal in structure and fuction. Pulmonic Valve: Pulmonic Valve not well visualized due to poor echowindows. Pericardium: No pericardial effusion. Aorta: Normal aortic root. IVC: IVC is normal in size. IVC Collapses normally with inspiration. Theestimated RA pressure is 0-5 mmHg. CONCLUSIONS: 1. Normal left ventricular systolic function. The Ejection Fraction isvisually estimated to be 59 %. 2. Normal global longitudinal strain.-18.4%. MEASUREMENTS: 2D/MM Value Range DopplerValue LVIDd 2D 3.79 cm [ 3.50 - 5.70 ] AV Peak Vel1.25 m/s LVIDs 2D 2.62 cm [ 3.10 - 4.60 ] AV Peak PG6.25 mmHg IVSd 2D 0.88 cm [ 0.60 - 1.20 ] AV Mean PG4.00 mmHg LVPWd 2D 1.22 cm [ 0.60 - 1.10 ] AV VTI25.30 cm LV Thickness Ratio 0.72 LVOT Peak Vel1.05 m/s LV Mass 2D 127.06 g LVOT Peak PG4.41 mmHg LV Mass Index 2D 85.62 g/m2 LVOT Mean PG2.00 mmHg RWT 0.64 LVOT VTI19.30 cm Visually Estimated EF 59 % LVOT Diam2.00 cm LV GLS -18.4 % [ -18.0 - -16.0 ] SV LVOT61.00 cm3 LA Dimension 2D 2.50 cm [ 1.90 - 4.00 ] ANJANA VTI2.40 cm2 LA Length 2C 3.41 cm ANJANA Vmax2.64 cm2 LA Length 4C 3.99 cm LVOT/AV VTI0.76 - Dimensionless index (DVI) LA Volume BP 25.00 ml MV E Peak Vel0.81 m/s LA Volume Index 16.85 ml/m2 [ 16.00 - 34.00 ] MV A Peak Vel0.58 m/s RVDd 2D 2.04 cm [ 2.00 - 3.00 ] MV E/A1.40 ratio TAPSE 3.15 cm [ 1.71 - 5.00 ] MV Decel Rdtd772.00 msec AoR Diam 2D 2.40 cm [ 2.00 - 3.70 ] Med E` Vel0.13 m/s Ao Root Index 1.62 cm/m2 [ 1.00 - 2.00 ] Lat E` Vel0.17 m/s Average E/E` 5.40 RV S` 14.70 cm/sec TR Peak Kraig 1.77 m/s TR Peak PG 12.5 mmHg PV Peak Kraig 0.97 m/s PV Peak PG 3.76 mmHg PI ED Kraig 135.00 - ATTESTATION: I have reviewed and interpreted the pertinent images and measurements ofthis study. I attest to the conclusions in the final report that is provided above. DISCLAIMER: The study images and the final report will be retained in the patientchart by the [facility] for the legally required time period. This chart constitutesthe legal record of any testing performed. Electronically Signed By: Sultan Nathen MD 03/08/2025 5:06:19 PM [employer] us Ramy Aguilera MD CV ECHO PROCEDURES Final Res ult * (ABNORMAL) Blood smear review (02/24/2025 10:12 AM [employer]) RBC morphology Consistent with RBC Indicies Comment:Testing performed by : [facility], [address] [place] [address], [place]., [address] Anisocytosis Slight(A) JOSELYN VAZQUEZ Comment:Testing performed by : [facility], [address] [place] [address]., [id number] Platelet estimate Adequate JOSELYN VAZQUEZ Comment:Testing performed by : [facility], [address] [place] [address]., [id number] Blood 02/24/2025 10:1 2 AM [employer] 02/24/2025 10:15 AM [employer] us Ramy Aguilera MD LAB BLOOD ORDERABLES Final R esult Performing Organization Address [facility] Co de Phone Number JOSELYN [phone] [facility] Department [place] [address] * eGFR (02/24/2025 10:12 AM [employer]) eGFR >90 >=60 mL/min/1. 73 m2 [...] was last reviewed 2021. Testing performed by: [facility], [address] [place] [address]., [id number] Blood 02/24/2025 10:1 2 AM [employer] 02/24/2025 10:15 AM [employer] us Ramy Aguilera MD LAB BLOOD ORDERABLES Final R esult Performing Organization Address City/[facility]/ZIP Co de Phone Number JOSELYN [phone] [facility] Department [place] [address] * (ABNORMAL) Differential, auto (02/24/2025 10:12 AM [employer]) Neutrophil abs 1.94 1.50 - 6.50 K/cumm Comment:Testing performed by : [address] [address] Imm gran abs 0.02 0.00 - 0.10 K/cumm JOSELYN Comment:Testing performed by : [address] [address] Lymphocyte abs 10.97(H) 0.80 - 3.30 K/cumm JOSELYN Comment:Testing performed by : [address] [address] Monocyte abs 0.29 0.20 - 0.80 K/cumm JOSELYN Comment:Testing performed by : [address] [address] Eosinophil abs 0.09 0.00 - 0.50 K/cumm JOSELYN Comment:Testing performed by : [address] [address] Basophil abs 0.05 0.00 - 0.10 K/cumm JOSELYN Comment:Testing performed by : [address] [address] Neutrophil pct 14.5 % JOSELYN Comment: Interpretive Data Percent cell count reference ranges are not reported, since discordance with absolute values may lead to misinterpretation of CBC data. Current Interpretive Data was last revised on 2017. Testing performed by: [address] [address] Imm gran pct 0.1 % JOSELYN Comment: Interpretive Data Percent cell count reference ranges are not reported, since discordance with absolute values may lead to misinterpretation of CBC data. Current Interpretive Data was last revised on 2017. Testing performed by: [address] [address] Lymphocyte pct 82.1 % JOSELYN Comment: Interpretive Data Percent cell count reference ranges are not reported, since discordance with absolute values may lead to misinterpretation of CBC data. Current Interpretive Data was last revised on 2017. Testing performed by: [address] [address] Monocyte pct 2.2 % JOSELYN Comment: Interpretive Data Percent cell count reference ranges are not reported, since discordance with absolute values may lead to misinterpretation of CBC data. Current Interpretive Data was last revised on 2017. Testing performed by: [address] [address] Eosinophil pct 0.7 % JOSELYN Comment: Interpretive Data Percent cell count reference ranges are not reported, since discordance with absolute values may lead to misinterpretation of CBC data. Current Interpretive Data was last revised on 2017. Testing performed by: [address] [address] Basophil pct 0.4 % JOSELYN Comment: Interpretive Data Percent cell count reference ranges are not reported, since discordance with absolute values may lead to misinterpretation of CBC data. Current Interpretive Data was last revised on 2017. Testing performed by: [address] [address] Blood 02/24/2025 10:1 2 AM [employer] 02/24/2025 10:15 AM [employer] us Ramy Aguilera MD LAB BLOOD ORDERABLES Final R esult [facility] [address] [facility] Department [place] [address] * (ABNORMAL) CBC with auto differential (02/24/2025 10:12 AM [employer]) WBC 13.36(H) 3.80 - 9.90 K/cumm Comment:Testing performed by : [address] [address] Hgb 8.7(L) 11.9 - 15.5 g/dL JOSELYN VAZQUEZ Comment:Testing performed by : [address] [address] Hct 27.7(L) 35.6 - 45.5 % JOSELYN Comment:Testing performed by : [address] [address] Plt 141(L) 150 - 400 K/cumm JOSELYN Comment:Testing performed by : [address] [address] MPV 9.6 9.1 - 12.3 fL JOSELYN Comment:Testing performed by : [address], [address] RBC 2.98(L) 3.90 - 5.20 M/cumm JOSELYN Comment:Testing performed by : [address], [address] MCV 93.0 81.3 - 96.4 fL JOSELYN Comment:Testing performed by : [address], [address] MCH 29.2 27.1 - 33.3 pg JOSELYN Comment:Testing performed by : [address], [address] MCHC 31.4(L) 32.3 - 35.7 g/dL JOSELYN Comment:Testing performed by : [address], [address] RDW CV 18.6(H) 11.1 - 14.9 % JOSELYN Comment:Testing performed by : [address], [address] RDW SD 60.3(H) 35.7 - 48.1 fL JOSELYN Comment:Testing performed by : [address] [address] NRBC abs 0.02(H) 0.00 - 0.01 K/cumm JOSELYN Comment:Testing performed by : [address], [address] ANC Prelim 1.94 1.50 - 6.50 K/cumm JOSELYN Comment: Interpretive Data The rapid ANC is a preliminary automated count and may vary from the final ANC (Neut Abs) reported in the WBC differential that follows. Current interpretive data was last revised 2024. Testing performed by: [address] [address] Blood 02/24/2025 10:1 2 AM [employer] 02/24/2025 10:15 AM [employer] Ramy Aguilera MD LAB BLOOD ORDERABLES Final R esult Performing Organization Address [facility] Co de Phone Number [address] [place] [address] * hCG, blood, quantitative (02/24/2025 10:12 AM [employer]) hCG, quant <5.0 0.0 - 5.0 IUnits/L Comment: Interpretive Data Male: < 5 IU/L Non- premenopausal Female: <5 IU/L The [employer]mo hCG Beta Quant assay procedure was used. Results from different manufacturers or methods may not be comparable. Serial testing should be performed using the same method. Interpretive Data was last revised on 2023 Testing performed by: [address] [address] Blood 02/24/2025 10:1 2 AM [employer] 02/24/2025 10:46 AM [employer] Ramy Aguilera MD LAB BLOOD ORDERABLES Final R esult Performing Organization Address City/[facility] Co de Phone Number [address] [address] * (ABNORMAL) Comprehensive metabolic panel (02/24/2025 10:12 AM [employer]) Pathologist [facility] Sodium 141 135 - 145 mmol/L Comment:Testing performed by : [address] [address] Potassium, pl 3.8 3.3 - 4.9 mmol/L JOSELYN VAZQUEZ Comment:Testing performed by : [address] [address] Chloride 102 97 - 110 mmol/L JOSELYN VAZQUEZ Comment:Testing performed by : [address] [address] CO2 26 22 - 32 mmol/L [facility] Comment:Testing performed by : [address] [address] Anion gap 13 2 - 15 mmol/L [facility] Comment:Testing performed by : [address] [address] BUN 13 6 - 25 mg/dL [facility] Comment:Testing performed by : [address] [address] Creatinine 0.70 0.60 - 1.10 mg/dL [facility] Comment:Testing performed by : [address] [address] Glucose 83 70 - 199 mg/dL [facility] was last revised 2022. Testing performed by: [address] [address] Calcium 9.5 8.5 - 10.3 mg/dL [facility] Comment:Testing performed by : [address] [address] Bilirubin, total 0.3 0.1 - 1.2 mg/dL [facility] Comment:Testing performed by : [address] [address] Protein, pl 6.1(L) 6.5 - 8.5 g/dL [facility] Comment:Testing performed by : [address] [address] Albumin 4.0 3.5 - 5.0 g/dL [facility] Comment:Testing performed by : [address] [address] Alk phos 150(H) 40 - 130 Units/L JOSELYN VAZQUEZ Comment:Testing performed by : [address] [address] ALT 8 7 - 45 Units/L JOSELYN VAZQUEZ Comment:Testing performed by : [address] [address] AST 18 10 - 45 Units/L JOSELYN VAZQUEZ Comment:Testing performed by : [address] [address] Blood 02/24/2025 10:1 2 AM [employer] 02/24/2025 10:15 AM [employer] us Ramy Aguilera MD LAB BLOOD ORDERABLES Final R esult Performing Organization Address City/[facility] Co de Phone Number [address] of [place] [address] * POCT glucose (2025 10:24 AM [employer]) Pathologist [facility] Glucose, POC 91 70 - 199 mg/dL Comment:Testing performed by : [address] [address] Blood 2025 10:2 4 AM [employer] 2025 10:24 AM [employer] us Ramy Aguilera MD LAB POCT ORDERABLES - DEVICE Final Result Performing Organization Address [facility] Co de Phone Number [address] [address] * (ABNORMAL) Blood smear review (02/10/2025 10:45 AM [employer]) [facility] RBC morphology Consistent with RBC Indicies Comment:Testing performed by : [address] [address] Anisocytosis Slight(A) JOSELYN VAZQUEZ Comment:Testing performed by : [address] [address] Platelet estimate Adequate JOSELYN VAZQUEZ Comment:Testing performed by : [address] [address] Blood 02/10/2025 10:4 5 AM [employer] 02/10/2025 10:48 AM [employer] us Ramy Aguilera MD LAB BLOOD ORDERABLES Final R esult JOSELYN [address] [address] * eGFR (02/10/2025 10:45 AM [employer]) eGFR >90 >=60 mL/min/1. 73 m2 [...] was last reviewed 2021. Testing performed by: [facility], [address] [place] [address]., [address] Blood 02/10/2025 10:4 5 AM [employer] 02/10/2025 10:48 AM [employer] us Ramy Aguilera MD LAB BLOOD ORDERABLES Final R esult JOSELYN [facility]0 [facility] [place] [address] * (ABNORMAL) Differential, auto (02/10/2025 10:45 AM [employer]) Neutrophil abs 2.05 1.50 - 6.50 K/cumm Comment:Testing performed by : [facility], [address] [place] [address], [place]., [address] Imm gran abs 0.01 0.00 - 0.10 K/cumm JOSELYN Comment:Testing performed by : [facility], [address] [place] [address], [place]., [address] Lymphocyte abs 13.08(H) 0.80 - 3.30 K/cumm JOSELYN Comment:Testing performed by : [address], [place]., [address] Monocyte abs 0.29 0.20 - 0.80 K/cumm [facility] Comment:Testing performed by : [address], [place]., [address] Eosinophil abs 0.02 0.00 - 0.50 K/cumm [facility] Comment:Testing performed by : [address] [address] Basophil abs 0.07 0.00 - 0.10 K/cumm [facility] Comment:Testing performed by : [address] [address] Neutrophil pct 13.1 % [facility] Comment: Interpretive Data Percent cell count reference ranges are not reported, since discordance with absolute values may lead to misinterpretation of CBC data. Current Interpretive Data was last revised on 2017. Testing performed by: [address] [address] Imm gran pct 0.1 % [facility] Comment: Interpretive Data Percent cell count reference ranges are not reported, since discordance with absolute values may lead to misinterpretation of CBC data. Current Interpretive Data was last revised on 2017. Testing performed by: [address] [address] Lymphocyte pct 84.3 % [facility] Comment: Interpretive Data Percent cell count reference ranges are not reported, since discordance with absolute values may lead to misinterpretation of CBC data. Current Interpretive Data was last revised on 2017. Testing performed by: [address] [address] Monocyte pct 1.9 % [facility] Comment: Interpretive Data Percent cell count reference ranges are not reported, since discordance with absolute values may lead to misinterpretation of CBC data. Current Interpretive Data was last revised on 2017. Testing performed by: [address] [address] Eosinophil pct 0.1 % JOSELYN Comment: Interpretive Data Percent cell count reference ranges are not reported, since discordance with absolute values may lead to misinterpretation of CBC data. Current Interpretive Data was last revised on 2017. Testing performed by: [address] [address] Basophil pct 0.5 % JOSELYN Comment: Interpretive Data Percent cell count reference ranges are not reported, since discordance with absolute values may lead to misinterpretation of CBC data. Current Interpretive Data was last revised on 2017. Testing performed by: [address] [address] Blood 02/10/2025 10:4 5 AM [employer] 02/10/2025 10:48 AM [employer] us Ramy Aguilera MD LAB BLOOD ORDERABLES Final R esult [facility] [address] [facility] Department [place] [address] * (ABNORMAL) CBC with auto differential (02/10/2025 10:45 AM [employer]) WBC 15.52(H) 3.80 - 9.90 K/cumm Comment:Testing performed by : [address] [address] Hgb 7.9(L) 11.9 - 15.5 g/dL JOSELYN Comment:Testing performed by : [address] [address] Hct 25.5(L) 35.6 - 45.5 % JOSELYN Comment:Testing performed by : [address] [address] Plt 128(L) 150 - 400 K/cumm JOSELYN Comment:Testing performed by : [address] [place]., [address] MPV 10.3 9.1 - 12.3 fL JOSELYN Comment:Testing performed by : [address] [address] RBC 2.75(L) 3.90 - 5.20 M/cumm JOSELYN Comment:Testing performed by : [address], [address] MCV 92.7 81.3 - 96.4 fL JOSELYN Comment:Testing performed by : [address], [address] MCH 28.7 27.1 - 33.3 pg JOSELYN Comment:Testing performed by : [address], [address] MCHC 31.0(L) 32.3 - 35.7 g/dL JOSELYN Comment:Testing performed by : [address], [address] RDW CV 18.0(H) 11.1 - 14.9 % JOSELYN Comment:Testing performed by : [address], [address] RDW SD 60.4(H) 35.7 - 48.1 fL JOSELYN Comment:Testing performed by : [address] [address] NRBC abs 0.00 0.00 - 0.01 K/cumm JOSELYN Comment:Testing performed by : [address] [address] ANC Prelim 2.05 1.50 - 6.50 K/cumm JOSELYN Comment: Interpretive Data The rapid ANC is a preliminary automated count and may vary from the final ANC (Neut Abs) reported in the WBC differential that follows. Current interpretive data was last revised 2024. Testing performed by: [address] [address] Blood 02/10/2025 10:4 5 AM [employer] 02/10/2025 10:48 AM [employer] us Ramy Aguilera MD LAB BLOOD ORDERABLES Final R esult Performing Organization Address [facility] de Phone Number JOSELYN [facility]0 [facility] [place] [address] * hCG, blood, quantitative (02/10/2025 10:45 AM [employer]) Pathologist [facility] [...] last revised on 2023 Testing performed by: [address] [address] Blood 02/10/2025 10:4 5 AM [employer] 02/10/2025 11:06 AM [employer] Ramy Aguilera MD LAB BLOOD ORDERABLES Final R esult Performing Organization Address [facility] de Phone Number [place] [id number] [facility] [place] [address] * (ABNORMAL) Comprehensive metabolic panel (02/10/2025 10:45 AM [employer]) [facility] Sodium 143 135 - 145 mmol/L Comment:Testing performed by : [address] [address] Potassium, pl 3.8 3.3 - 4.9 mmol/L JOSELYN Comment:Testing performed by : [address] [address] Chloride 102 97 - 110 mmol/L JOSELYN Comment:Testing performed by : [address] [address] CO2 29 22 - 32 mmol/L JOSELYN Comment:Testing performed by : [address] [address] Anion gap 12 2 - 15 mmol/L JOSELYN Comment:Testing performed by : [address] [address] BUN 12 6 - 25 mg/dL [facility] Comment:Testing performed by : [address] [address] Creatinine 0.80 0.60 - 1.10 mg/dL [facility] Comment:Testing performed by : [address] [address] Glucose 94 70 - 199 mg/dL [facility] [...] was last revised 2022. Testing performed by: [address] [address] Calcium 9.0 8.5 - 10.3 mg/dL [facility] Comment:Testing performed by : [address] [address] Bilirubin, total 0.3 0.1 - 1.2 mg/dL [facility] Comment:Testing performed by : [address] [address] Protein, pl 6.1(L) 6.5 - 8.5 g/dL [facility] Comment:Testing performed by : [address] [address] Albumin 4.0 3.5 - 5.0 g/dL [facility] Comment:Testing performed by : [address] [address] Alk phos 149(H) 40 - 130 Units/L [facility] Comment:Testing performed by : [address] [address] ALT 11 7 - 45 Units/L [facility] Comment:Testing performed by : [address] [address] AST 23 10 - 45 Units/L JOSELYN Comment:Testing performed by : [facility], [address] [place] [address]., [address] Blood 02/10/2025 10:4 5 AM [employer] 02/10/2025 10:48 AM [employer] Ramy Aguilera MD LAB BLOOD ORDERABLES Final R esult Performing Organization Address [facility] de Phone Number [address] [place] [address] * (ABNORMAL) Blood smear review (02/03/2025 11:19 AM CDT) [facility] RBC morphology Consistent with RBC Indicies Comment:Testing performed by : [address] [address] Anisocytosis Slight(A) JOSELYN Comment:Testing performed by : [address] [address] Platelet estimate Adequate JOSELYN Comment:Testing performed by : [address] [address] Blood 02/03/2025 11:1 9 AM CDT 02/03/2025 11:22 AM CDT Ramy Aguilera MD LAB BLOOD ORDERABLES Final R esult Performing Organization Address [facility] de Phone Number [address] [address] * eGFR (02/03/2025 11:19 AM CDT) eGFR [...] was last reviewed 2021. Testing performed by: [address] [address] Blood 02/03/2025 11:1 9 AM CDT 02/03/2025 11:22 AM CDT us Ramy Aguilera MD LAB BLOOD ORDERABLES Final R esult [place] [address] [facility] Department of Laboratories [place], [place] [id number] * (ABNORMAL) Differential, auto (02/03/2025 11:19 AM CDT) Neutrophil abs 2.22 1.50 - 6.50 K/cumm Comment:Testing performed by : [address] [address] Imm gran abs 0.04 0.00 - 0.10 K/cumm JOSELYN Comment:Testing performed by : [address] [address] Lymphocyte abs 22.28(H) 0.80 - 3.30 K/cumm JOSELYN Comment:Testing performed by : [address] [address] Monocyte abs 0.58 0.20 - 0.80 K/cumm JOSELYN Comment:Testing performed by : [address] [address] Eosinophil abs 0.01 0.00 - 0.50 K/cumm JOSELYN Comment:Testing performed by : [address], [address] Basophil abs 0.11(H) 0.00 - 0.10 K/cumm JOSELYN Comment:Testing performed by : [address] [address] Neutrophil pct 8.8 % JOSELYN Comment: Interpretive Data Percent cell count reference ranges are not reported, since discordance with absolute values may lead to misinterpretation of CBC data. Current Interpretive Data was last revised on 2017. Testing performed by: [address] [address] Imm gran pct 0.2 % JOSELYN Comment: Interpretive Data Percent cell count reference ranges are not reported, since discordance with absolute values may lead to misinterpretation of CBC data. Current Interpretive Data was last revised on 2017. Testing performed by: [address] [address] Lymphocyte pct 88.3 % JOSELYN Comment: Interpretive Data Percent cell count reference ranges are not reported, since discordance with absolute values may lead to misinterpretation of CBC data. Current Interpretive Data was last revised on 2017. Testing performed by: [address] [address] Monocyte pct 2.3 % [facility] Comment: Interpretive Data Percent cell count reference ranges are not reported, since discordance with absolute values may lead to misinterpretation of CBC data. Current Interpretive Data was last revised on 2017. Testing performed by: [address] [address] Eosinophil pct 0.0 % JOSELYN Comment: Interpretive Data Percent cell count reference ranges are not reported, since discordance with absolute values may lead to misinterpretation of CBC data. Current Interpretive Data was last revised on 2017. Testing performed by: [address] [address] Basophil pct 0.4 % [facility] Comment: Interpretive Data Percent cell count reference ranges are not reported, since discordance with absolute values may lead to misinterpretation of CBC data. Current Interpretive Data was last revised on 2017. Testing performed by: [address] [address] Blood 02/03/2025 11:1 9 AM CDT 02/03/2025 11:22 AM CDT us Ramy Aguielra MD LAB BLOOD ORDERABLES Final R esult JOSELYN [address] [facility] Department [place] [address] * (ABNORMAL) CBC with auto differential (02/03/2025 11:19 AM CDT) [facility] WBC 25.24(H) 3.80 - 9.90 K/cumm Comment:Testing performed by : [address] [address] Hgb 8.7(L) 11.9 - 15.5 g/dL JOSELYN Comment:Testing performed by : [address] [address] Hct 28.1(L) 35.6 - 45.5 % JOSELYN Comment:Testing performed by : [address] [address] Plt 176 150 - 400 K/cumm JOSELYN Comment:Testing performed by : [address] [address] MPV 9.6 9.1 - 12.3 fL JOSELYN Comment:Testing performed by : [address] [address] RBC 3.07(L) 3.90 - 5.20 M/cumm JOSELYN Comment:Testing performed by : [address] [address] MCV 91.5 81.3 - 96.4 fL JOSELYN Comment:Testing performed by : [address] [address] MCH 28.3 27.1 - 33.3 pg JOSELYN VAZQUEZ Comment:Testing performed by : [address] [address] MCHC 31.0(L) 32.3 - 35.7 g/dL JOSELYN Comment:Testing performed by : [address] [address] RDW CV 17.6(H) 11.1 - 14.9 % JOSELYN Comment:Testing performed by : [address] [address] RDW SD 57.8(H) 35.7 - 48.1 fL JOSELYN Comment:Testing performed by : [address] [address] NRBC abs 0.02(H) 0.00 - 0.01 K/cumm JOSELYN Comment:Testing performed by : [address] [address] ANC Prelim 2.22 1.50 - 6.50 K/cumm JOSELYN Comment: Interpretive Data The rapid ANC is a preliminary automated count and may vary from the final ANC (Neut Abs) reported in the WBC differential that follows. Current interpretive data was last revised 2024. Testing performed by: [address] [address] Blood 02/03/2025 11:1 9 AM CDT 02/03/2025 11:22 AM CDT us Ramy Aguilera MD LAB BLOOD ORDERABLES Edited Result - Final JOSELYN [address] [facility] Department [place] [address] * hCG, blood, quantitative (02/03/2025 [...] last revised on 2023 Testing performed by: [address] [address] Blood 02/03/2025 11:1 9 AM CDT 02/03/2025 11:45 AM CDT Ramy Aguilera MD LAB BLOOD ORDERABLES Final R esult Performing Organization Address [facility] de Phone Number JOSELYN [address] [address] * (ABNORMAL) Lactate dehydrogenase (LD) (02/03/2025 11:19 AM CDT) Pathologist [facility] Lactate dehydrogenase (LDH) 392(H) 100 - 250 Units/L Comment: HEMOLYZED: Hemolysis interferes with the above test. Testing performed by: [address] [address] Blood 02/03/2025 11:1 9 AM CDT 02/03/2025 11:22 AM CDT Ramy Aguilera MD LAB BLOOD ORDERABLES Final R esult Performing Organization Address [facility] de Phone Number JOSELYN [address] [address] * (ABNORMAL) Comprehensive metabolic panel (02/03/2025 11:19 AM CDT) [facility] Sodium 136 135 - 145 mmol/L Comment:Testing performed by : [address] [address] Potassium, pl 3.7 3.3 - 4.9 mmol/L JOSELYN Comment:Testing performed by : [address] [address] Chloride 99 97 - 110 mmol/L JOSELYN Comment:Testing performed by : [address] [address] CO2 23 22 - 32 mmol/L JOSELYN Comment:Testing performed by : [address] [address] Anion gap 14 2 - 15 mmol/L JOSELYN Comment:Testing performed by : [address] [address] BUN 8 6 - 25 mg/dL JOSELYN Comment:Testing performed by : [address] [place] [address] Creatinine 0.70 0.60 - 1.10 mg/dL JOSELYN Comment:Testing performed by : [address] [address] Glucose 105 70 - 199 mg/dL [facility] Comment: Interpretive Data Fasting glucose [...] was last revised 2022. Testing performed by: [address] [address] Calcium 9.3 8.5 - 10.3 mg/dL [facility] Comment:Testing performed by : [address] [address] Bilirubin, total 0.5 0.1 - 1.2 mg/dL [facility] Comment:Testing performed by : [address] [address] Protein, pl 6.4(L) 6.5 - 8.5 g/dL [facility] Comment:Testing performed by : [address] [address] Albumin 4.0 3.5 - 5.0 g/dL [facility] Comment:Testing performed by : [address] [address] Alk phos 180(H) 40 - 130 Units/L [facility] Comment:Testing performed by : [address] [address] ALT 25 7 - 45 Units/L [facility] Comment:Testing performed by : [address] [address] AST 33 10 - 45 Units/L JOSELYN Comment:Testing performed by : [address] [address] Blood 02/03/2025 11:1 9 AM CDT 02/03/2025 11:22 AM CDT Ramy Aguilera MD LAB BLOOD ORDERABLES Final R esult Performing Organization Address [facility] Co de Phone Number JOSELYN [address] [place] [address] * (ABNORMAL) Blood smear review (01/13/2025 10:00 AM CDT) RBC morphology Consistent with RBC Indicies Comment:Testing performed by : [address], [address] Anisocytosis Slight(A) JOSELYN VAZQUEZ Comment:Testing performed by : [address], [address] Platelet estimate Adequate JOSELYN Comment:Testing performed by : [address], [address] Blood 01/13/2025 10:0 0 AM CDT 01/13/2025 10:02 AM CDT Ramy Aguilera MD LAB BLOOD ORDERABLES Final R esult Performing Organization Address City/[facility] Co de Phone Number JOSELYN [address] [address] * eGFR (01/13/2025 10:00 AM CDT) eGFR [...] was last reviewed 2021. Testing performed by: [address] [address] Blood 01/13/2025 10:0 0 AM CDT 01/13/2025 10:02 AM CDT us Ramy Aguilera MD LAB BLOOD ORDERABLES Final R esult JOSELYN [facility] Department [place] [address] * (ABNORMAL) Differential, auto (01/13/2025 10:00 AM CDT) Neutrophil abs 1.44(L) 1.50 - 6.50 K/cumm Comment:Testing performed by : [address] [address] Imm gran abs 0.03 0.00 - 0.10 K/cumm JOSELYN Comment:Testing performed by : [address] [address] Lymphocyte abs 17.55(H) 0.80 - 3.30 K/cumm JOSELYN Comment:Testing performed by : [address] [address] Monocyte abs 0.33 0.20 - 0.80 K/cumm JOSELYN Comment:Testing performed by : [address] [address] Eosinophil abs 0.04 0.00 - 0.50 K/cumm JOSELYN Comment:Testing performed by : [address] [address] Basophil abs 0.10 0.00 - 0.10 K/cumm JOSELYN Comment:Testing performed by : [address] [address] Neutrophil pct 7.4 % [facility] Comment: Interpretive Data Percent cell count reference ranges are not reported, since discordance with absolute values may lead to misinterpretation of CBC data. Current Interpretive Data was last revised on 2017. Testing performed by: [address] [address] Imm gran pct 0.2 % [facility] Comment: Interpretive Data Percent cell count reference ranges are not reported, since discordance with absolute values may lead to misinterpretation of CBC data. Current Interpretive Data was last revised on 2017. Testing performed by: [address] [address] Lymphocyte pct 90.0 % [facility] Comment: Interpretive Data Percent cell count reference ranges are not reported, since discordance with absolute values may lead to misinterpretation of CBC data. Current Interpretive Data was last revised on 2017. Testing performed by: [address] [address] Monocyte pct 1.7 % [facility] Comment: Interpretive Data Percent cell count reference ranges are not reported, since discordance with absolute values may lead to misinterpretation of CBC data. Current Interpretive Data was last revised on 2017. Testing performed by: [address] [address] Eosinophil pct 0.2 % [facility] Comment: Interpretive Data Percent cell count reference ranges are not reported, since discordance with absolute values may lead to misinterpretation of CBC data. Current Interpretive Data was last revised on 2017. Testing performed by: [address] [address] Basophil pct 0.5 % [facility] Comment: Interpretive Data Percent cell count reference ranges are not reported, since discordance with absolute values may lead to misinterpretation of CBC data. Current Interpretive Data was last revised on 2017. Testing performed by: [address] [address] Blood 01/13/2025 10:0 0 AM CDT 01/13/2025 10:02 AM CDT us Ramy Aguilera MD LAB BLOOD ORDERABLES Final R esult [facility] [address] [facility] Department [place] [address] * (ABNORMAL) CBC with auto differential (01/13/2025 10:00 AM CDT) [facility] Signature WBC 19.49(H) 3.80 - 9.90 K/cumm Comment:Testing performed by : [address] [address] Hgb 8.1(L) 11.9 - 15.5 g/dL JOSELYN Comment:Testing performed by : [address] [address] Hct 25.4(L) 35.6 - 45.5 % JOSELYN Comment:Testing performed by : [address] [address] Plt 108(L) 150 - 400 K/cumm JOSELYN Comment:Testing performed by : [address] [address] MPV 8.8(L) 9.1 - 12.3 fL JOSELYN Comment:Testing performed by : [address] [address] RBC 2.77(L) 3.90 - 5.20 M/cumm JOSELYN Comment:Testing performed by : [address] [address] MCV 91.7 81.3 - 96.4 fL JOSELYN Comment:Testing performed by : [address] [address] MCH 29.2 27.1 - 33.3 pg JOSELYN Comment:Testing performed by : [address] [address] MCHC 31.9(L) 32.3 - 35.7 g/dL JOSELYN Comment:Testing performed by : [address] [address] RDW CV 17.9(H) 11.1 - 14.9 % JOSELYN Comment:Testing performed by : [address] [address] RDW SD 59.7(H) 35.7 - 48.1 fL JOSELYN Comment:Testing performed by : [address] [address] NRBC abs 0.02(H) 0.00 - 0.01 K/cumm JOSELYN Comment:Testing performed by : [address] [address] ANC Prelim 1.44(L) 1.50 - 6.50 K/cumm JOSELYN Comment: Interpretive Data The rapid ANC is a preliminary automated count and may vary from the final ANC (Neut Abs) reported in the WBC differential that follows. Current interpretive data was last revised 2024. Testing performed by: [address] [address] Blood 01/13/2025 10:0 0 AM CDT 01/13/2025 10:02 AM CDT us Ramy Aguilera MD LAB BLOOD ORDERABLES Edited Result - Final [facility] [address] [facility] Department [place] [address] * hCG, blood, quantitative (01/13/2025 [...] last revised on 2023 Testing performed by: [address] [address] Blood 01/13/2025 10:0 0 AM CDT 01/13/2025 10:18 AM CDT us Ramy Aguilera MD LAB BLOOD ORDERABLES Final R esult JOSELYN [address] [facility] Department [place] [address] * (ABNORMAL) Comprehensive metabolic panel (01/13/2025 10:00 AM CDT) Sodium 138 135 - 145 mmol/L Comment:Testing performed by : [address] [address] Potassium, pl 3.2(L) 3.3 - 4.9 mmol/L JOSELYN Comment:Testing performed by : [address] [address] Chloride 98 97 - 110 mmol/L JOSELYN Comment:Testing performed by : [address] [address] CO2 26 22 - 32 mmol/L JOSELYN Comment:Testing performed by : [address] [address] Anion gap 14 2 - 15 mmol/L JOSELYN Comment:Testing performed by : [address] [address] BUN 6 6 - 25 mg/dL JOSELYN Comment:Testing performed by : [address] [address] Creatinine 0.70 0.60 - 1.10 mg/dL JOSELYN Comment:Testing performed by : [address] [address] Glucose 131 70 - 199 mg/dL JOSELYN [...] was last revised 2022. Testing performed by: [address] [address] Calcium 9.0 8.5 - 10.3 mg/dL JOSELYN Comment:Testing performed by : [address] [address] Bilirubin, total 0.5 0.1 - 1.2 mg/dL JOSELYN Comment:Testing performed by : [address] [address] Protein, pl 5.8(L) 6.5 - 8.5 g/dL JOSELYN Comment:Testing performed by : [address] [address] Albumin 3.8 3.5 - 5.0 g/dL JOSELYN Comment:Testing performed by : [address] [address] Alk phos 238(H) 40 - 130 Units/L JOSELYN Comment:Testing performed by : [address] [address] ALT 17 7 - 45 Units/L JOSELYN Comment:Testing performed by : [address] [address] AST 30 10 - 45 Units/L JOSELYN Comment:Testing performed by : [address] [address] Blood 01/13/2025 10:0 0 AM CDT 01/13/2025 10:02 AM CDT us Ramy Aguilera MD LAB BLOOD ORDERABLES Final R esult JOSELYN [address] [facility] Department [place] [address] * (ABNORMAL) Blood smear review (12/23/2024 9:47 AM CDT) RBC morphology Consistent with RBC Indicies Comment:Testing performed by : [address] [address] Anisocytosis Slight(A) JOSELYN Comment:Testing performed by : [address] [address] Platelet estimate Adequate JOSELYN Comment:Testing performed by : [facility], [address] [place] [address]., [address] Blood 12/23/2024 9:47 AM CDT 12/23/2024 9:48 AM CDT Ramy Aguilera MD LAB BLOOD ORDERABLES Final R esult Performing Organization Address City/[facility] Co de Phone Number JOSELYN [facility] [address] [place] [address] * eGFR (12/23/2024 9:47 AM CDT) eGFR [...] was last reviewed 2021. Testing performed by: [facility], [address] [place] [address]., [address] Blood 12/23/2024 9:47 AM CDT 12/23/2024 9:48 AM CDT us Ramy Aguilera MD LAB BLOOD ORDERABLES Final R esult Performing Organization Address City/[facility]/ZIP Co de Phone Number JOSELYN [facility]0 [facility] [address] [place] [address] * (ABNORMAL) Differential, auto (12/23/2024 9:47 AM CDT) Neutrophil abs 2.06 1.50 - 6.50 K/cumm Comment:Testing performed by : [address] [address] Imm gran abs 0.08 0.00 - 0.10 K/cumm JOSELYN Comment:Testing performed by : [address] [address] Lymphocyte abs 21.14(H) 0.80 - 3.30 K/cumm JOSELYN Comment:Testing performed by : [address] [address] Monocyte abs 0.37 0.20 - 0.80 K/cumm [facility] Comment:Testing performed by : [address] [address] Eosinophil abs 0.10 0.00 - 0.50 K/cumm [facility] Comment:Testing performed by : [address] [address] Basophil abs 0.09 0.00 - 0.10 K/cumm [facility] Comment:Testing performed by : [address] [address] Neutrophil pct 8.6 % [facility] Comment: Interpretive Data Percent cell count reference ranges are not reported, since discordance with absolute values may lead to misinterpretation of CBC data. Current Interpretive Data was last revised on 2017. Testing performed by: [address] [address] Imm gran pct 0.3 % [facility] Comment: Interpretive Data Percent cell count reference ranges are not reported, since discordance with absolute values may lead to misinterpretation of CBC data. Current Interpretive Data was last revised on 2017. Testing performed by: [address] [address] Lymphocyte pct 88.7 % CERNER Comment: Interpretive Data Percent cell count reference ranges are not reported, since discordance with absolute values may lead to misinterpretation of CBC data. Current Interpretive Data was last revised on 2017. Testing performed by: [address] [address] Monocyte pct 1.6 % JOSELYN Comment: Interpretive Data Percent cell count reference ranges are not reported, since discordance with absolute values may lead to misinterpretation of CBC data. Current Interpretive Data was last revised on 2017. Testing performed by: [address] [address] Eosinophil pct 0.4 % JOSELYN Comment: Interpretive Data Percent cell count reference ranges are not reported, since discordance with absolute values may lead to misinterpretation of CBC data. Current Interpretive Data was last revised on 2017. Testing performed by: [address] [address] Basophil pct 0.4 % JOSELYN Comment: Interpretive Data Percent cell count reference ranges are not reported, since discordance with absolute values may lead to misinterpretation of CBC data. Current Interpretive Data was last revised on 2017. Testing performed by: [address] [address] Blood 12/23/2024 9:47 AM CDT 12/23/2024 9:48 AM CDT us Ramy Aguilera MD LAB BLOOD ORDERABLES Final R esult JOSELYN [address] [facility] Department [place] [address] * (ABNORMAL) CBC with auto differential (12/23/2024 9:47 AM CDT) WBC 23.84(H) 3.80 - 9.90 K/cumm Comment:Testing performed by : [address] [address] Hgb 9.0(L) 11.9 - 15.5 g/dL JOSELYN VAZQUEZ Comment:Testing performed by : [address] [address] Hct 27.5(L) 35.6 - 45.5 % JOSELYN Comment:Testing performed by : [address] [address] Plt 111(L) 150 - 400 K/cumm JOSELYN Comment:Testing performed by : [address] [address] MPV 9.1 9.1 - 12.3 fL JOSELYN Comment:Testing performed by : [address] [address] RBC 3.02(L) 3.90 - 5.20 M/cumm JOSELYN Comment:Testing performed by : [address] [address] MCV 91.1 81.3 - 96.4 fL JOSELYN Comment:Testing performed by : [address] [address] MCH 29.8 27.1 - 33.3 pg JOSELYN Comment:Testing performed by : [address] [address] MCHC 32.7 32.3 - 35.7 g/dL JOSELYN Comment:Testing performed by : [address] [address] RDW CV 17.8(H) 11.1 - 14.9 % JOSELYN Comment:Testing performed by : [address] [address] RDW SD 57.9(H) 35.7 - 48.1 fL JOSELYN Comment:Testing performed by : [address] [address] NRBC abs 0.07(H) 0.00 - 0.01 K/cumm JOSELYN Comment:Testing performed by : [address] [address] ANC Prelim 2.06 1.50 - 6.50 K/cumm JOSELYN Comment: Interpretive Data The rapid ANC is a preliminary automated count and may vary from the final ANC (Neut Abs) reported in the WBC differential that follows. Current interpretive data was last revised 2024. Testing performed by: [address], [address] Blood 12/23/2024 9:47 AM CDT 12/23/2024 9:48 AM CDT Ramy Aguilera MD LAB BLOOD ORDERABLES Edited Result - Final Performing Organization Address City/[facility]/ZIP Co de Phone Number JOSELYN [address] [place] [address] * hCG, blood, quantitative (12/23/2024 9:47 AM CDT) Pathologist [facility] [...] last revised on 2023 Testing performed by: [address] [address] Blood 12/23/2024 9:47 AM CDT 12/23/2024 10:07 AM CDT Ramy Aguilera MD LAB BLOOD ORDERABLES Final R esult Performing Organization Address [facility] Co de Phone Number DARRIN[address] [place] [address] * Uric acid (12/23/2024 9:47 AM CDT) [facility] Uric acid 6.3 2.5 - 7.0 mg/dL Comment:Testing performed by : [address] [address] Blood 12/23/2024 9:47 AM CDT 12/23/2024 1:11 PM CDT Ramy Aguilera MD LAB BLOOD ORDERABLES Final R esult JOSELYN [address] [address] * (ABNORMAL) Comprehensive metabolic panel (12/23/2024 9:47 AM CDT) Sodium 139 135 - 145 mmol/L Comment:Testing performed by : [address] [address] Potassium, pl 3.2(L) 3.3 - 4.9 mmol/L JOSELYN Comment:Testing performed by : [address] [address] Chloride 97 97 - 110 mmol/L JOSELYN Comment:Testing performed by : [address] [address] CO2 27 22 - 32 mmol/L JOSELYN Comment:Testing performed by : [address] [address] Anion gap 15 2 - 15 mmol/L JOSELYN Comment:Testing performed by : [address] [address] BUN 5(L) 6 - 25 mg/dL JOSELYN Comment:Testing performed by : [address] [address] Creatinine 0.70 0.60 - 1.10 mg/dL JOSELYN Comment:Testing performed by : [address] [address] Glucose 90 70 - 199 mg/dL JOSELYN [...] was last revised 2022. Testing performed by: [address] [address] Calcium 9.4 8.5 - 10.3 mg/dL JOSELYN Comment:Testing performed by : [address] [address] Bilirubin, total 0.6 0.1 - 1.2 mg/dL JOSELYN Comment:Testing performed by : [address] [address] Protein, pl 5.7(L) 6.5 - 8.5 g/dL JOSELYN Comment:Testing performed by : [address] [address] Albumin 3.6 3.5 - 5.0 g/dL JOSELYN Comment:Testing performed by : [facility], [address] [place] [address]., [address] Alk phos 242(H) 40 - 130 Units/L JOSELYN Comment:Testing performed by : [address], [address] ALT 7 7 - 45 Units/L JOSELYN Comment:Testing performed by : [address], [address] AST 30 10 - 45 Units/L JOSELYN Comment:Testing performed by : [address] [address] Blood 12/23/2024 9:47 AM CDT 12/23/2024 9:48 AM CDT us Ramy Aguilera MD LAB BLOOD ORDERABLES Final R esult JOSELYN [address] [facility] Department of Laboratories [place], [place] [id number] * PET/CT FDG Skull to Thigh (12/15/2024 [...] has increased in size and activity. A tour sales representative right axillary lymph node measuring [...] 6.2 previously. Bilateral inguinal hypermetabolic lymphadenopathy. The tour sales representative left inguinal lymph node measures [...] Fabiano Santana M.D. LB: CHAITANYA Report ID: [id number] Reading Location: [id number] Procedure Note Fabiano Santana MD - 12/15/2024 [...] 6.2 previously. Bilateral inguinal hypermetabolic lymphadenopathy. The tour sales representative left inguinal lymph node measures [...] Fabiano Santana M.D. LB: CHAITANYA Report ID: [id number] Reading Location: [place] [address] us Paige Giordano RN [facility]OM[facility] IMG PET PROCEDURES Final Resu lt * POCT glucose (12/15/2024 8:33 AM CDT) [facility] Signature Glucose, POC 94 70 - 199 mg/dL Comment:Testing performed by : [facility], [address] [place] [address]., [address] Blood 12/15/2024 8:33 AM CDT 12/15/2024 8:33 AM CDT Ramy Aguilera MD LAB POCT ORDERABLES - DEVICE Final Result JOSELYN [address] [facility] Department [place] [address] from Last 3 Months Additional Health Concerns Infection Onset Date Last Indicated C. difficile 11/18/2024 11/18/2024 Insurance [facility] Advance Directives For more information, please contact: [phone] * Full Code (Latest Code Status on File) Date Activated Date Inactivated Comments 09/22/2024 9:00 PM 09/24/2024 10:30 PM * Full Code Date Activated Date Inactivated Comments 09/17/2024 2:33 PM 09/17/2024 11:31 PM Care Teams Docent Coordinator Relationship Specialty Start Date End Date Satya Fernandez MD [address] [place] [address] PCP - General Internal Medicine 10/21/24 Ramy Aguilera MD [facility] [address] [place] [address] Medical Oncologist/Escort Patients Internal Medicine 09/23/24
--- OUTSIDE RECORDS SUMMARY | 2025-03-15 20:31 | XMS_ITS | Clinical Summary ---
Author Organization [facility] Address [address] [place] [address] Phone Care Team Providers Care Sueding Machine Tender Name Role Phone Gabriel Salmeron MD Unavailable [phone] Brooks Sosa MD Unavailable Provider, None Primary [...] use Anxiety 05/07/2023 Under care of senior care service 05/07/2023 Overview (05/07/2023): Two previous stays at senior care Child living with her parents Resolved Problems Problem Noted Date Diagnosed Date Resolved Date LRTI (lower respiratory tract infection) 09/09/2023 11/26/2023 Lymphoma 05/07/2023 10/29/2023 Overview (05/21/2023): Resistant to care No show ONC Refusing hospice 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/21/2023): Current cannabis; 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 Hx of senior care time Encounters Date Type Department Care Team Description 02/21/2025 Refill [facility] Oncology Services [address] [place] [address] Gabriel Salmeron MD Medication Refill from Last 3 Months Immunizations Immunization Administration Dates Next Due Influenza Vaccine, Quadrivalent, PF 04/02/2022 TDAP Vaccine 02/06/2022,11/05/2020 Family History Medical History Relation Name Comments No Known Problems Father Cancer Mother Osteoarthritis Mother Relation Name Status Comments Brother Alive Father Alive Mother Alive Social History Tobacco Use Types Packs/Day Years Used Date Smoking Tobacco: Every Day Cigarettes 1 14.9 Started: 04/07/2010 Passive Smoke Exposure: Current Smokeless Tobacco: Never Tobacco Cessation:Ready to Q uit: Yes; Counseling Given: Yes Alcohol Use Standard Drinks/Week Comments Yes 2 (1 standard drink = 0.6 oz pur e alcohol) occasional [facility] Utilities Answer Date Recorded In the past 12 months has [employer], gas, oil, or water [employer] threatened to shut off services in your home? Yes 05/07/2023 Social Connection and Isolation Panel Answer Date Recorded In a typical week, how many times do you talk on the phone with family, friends, or neighbors? Once a week 05/07/2023 How often do you get together with friends or re latives? Once a week 05/07/2023 How often do you attend zoroastrian or congregation serv ices? Never 05/07/2023 Do you belong to any clubs o r organizations such as zoroastrian groups, unions, fraternal or athletic groups, or [...] Total Score - Questions 1-9 9 06/06 [facility] - Occupational [...] place to sleep or slept in a assisted (including now)? No 05/07/2023 Sexually Active Control Partners Comments Yes Male Comments Unknown Sex and Gender Information Value Date Recorded Sex Assigned at Female 05/21/2023 11:44 AM ORCHID TRANSPLANTER Legal Sex Female 5:17 PM CDT Gender Identity Female 05/21/2023 11:44 AM ORCHID TRANSPLANTER Sexual Orientation Not on file Last Filed [...] Comments Hepatitis C Virus (HCV) Screening 1992 Varicella Immunization (1 of 2 - 13+ 2-dose series) 02/21/2005 Hepatitis B Immunization (1 of 3 - [...] change(07/29 4:12 PM CDT) Yes Janette Tom, BITA Note: Goal/Objective: Improve insight and understanding of behaviors and feelings. Anticipated Time Frame for Goal Completion: 6 months Goal Reviewed with: patient Readiness to change: Ready to change Department associated with goal: [facility] Steps to achieve goal: [...] triggering event occurs Insurance MEDICAID [facility] Care Teams Sueding Machine Tender Relationship Specialty Start Date End Date Provider, None [place] PCP - General 06/17/24 Gabriel Salmeron MD [address] [place] [address] Consulting Physician Medical Oncology 05/23/23 Brooks Sosa MD [address] [place] [id number] Consulting Physician Neurology 01/22/24 Kervin Jiang MD [address] [id number] Consulting Physician General Surgery 06/11/24
--- OUTSIDE RECORDS SUMMARY | 2025-03-15 20:31 | XMS_ITS ---
Author Organization [facility] Address [address] [place] [address] Phone Care Team Providers Care Bridge Manager Name Role Phone Gabriel Salmeron MD Unavailable Brooks Sosa MD Unavailable [phone] Provider, None Primary Care Provider UnavailKervin Rubi [...] at assisted Child living with her parents Current Treatment [...]
--- OUTSIDE RECORDS SUMMARY | 2025-03-15 20:31 | XMS_ITS | Encounter Summary ---
Author Organization [facility] Address [facility] [place] [address] Care Team Providers Care Cotton Agent Name Role Phone None, Provider Primary Care Provider Marya ble Encounter Details Date Type Department Care Team (Late st Contact Info) Description 01/27/2025 Results Follow-Up [facility] Care [address] [place], [place] [id number] Thalia Hall FNP [address] [place], [place] [id number] Pathology Social History Tobacco Use Types Packs/Day [...] Sex Assigned at Female 02/09/2025 4:27 PM PLATFORM CONSULTANT Legal Sex Female 7:16 PM CDT Gender Identity Not on file Sexual Orientation Not on file documented as of this encounter Plan of Treatment Not on file documented as of this encounter Visit Diagnoses Not on filedocumented in this encounter Care Teams Cotton Agent Relationship Specialty Start Date End Date None, Provider, PCP - General UNKNOWN PHYSICIAN SPECIALTY 11/19/22 documented as of this encounter
--- OUTSIDE RECORDS SUMMARY | 2025-03-15 20:31 | XMS_ITS ---
Author Organization [facility] [address] [facility] Address [address] [place] [address] Care Team Providers Care Dental Equipment Installer And Servicer Name Role Phone Ramy Aguilera MD Unavailable [phone] Satya Fernandez MD Primary Care Provider [phone] Active Problems Problem Noted Date Diagnosed Date [...] - Plan to discharge patient with outpatient [facility] follow-up on 09/30/24. Assessment & Plan (09/23/2024 [...] Current Day (Day 1 , Cycle 4 CHOP - Planned for 03/17/2025) cycloPHOSphamide (CYTOXAN)cy cloPHOSphamide IVPB in 250 mL (vial 200 mg/mL)(J9073)dexAMETHasone [...] Dose Automatic Entry Manual Entr y doxorubicin 144.079 mg/m2 (222.6 mg) 144.079 mg/m2 (222.6 mg) 0 mg/m2 (0 mg) cyclophosphamide 2,161.358 mg/m2 (3,340 mg) 2,161.358 mg/m2 (3,340 mg) 0 mg/m2 (0 mg) doxorubicin isotoxic equivalent (Please manually verify calculation) 144.079 mg/m2 (222.6 mg) 144.079 mg/m2 (222.6 mg) 0 mg/m2 (0 mg)
--- OUTSIDE RECORDS SUMMARY | 2025-03-15 20:31 | XMS_ITS ---
Author Organization [facility] Address [address] [place] [address] Phone Care Team Providers Care Hot Mix Operator Name Role Phone Gabriel Salmeron MD Unavailable [phone] Brooks Sosa MD Unavailable [phone] Provider, None Primary Care Provider UnavailKervin Rubi MD Unavailable [facility] Status:Enrolled (Active) Program category:Social Drivers of Health/Community Resource Coordination Start date:05/05/2024 Enrollment date:05/05/2024 Related social drivers of health:Social Connections, Tobacco Use, Depression, Stress, Physical Activity, Utilities Continued Care and Services Coordination
--- OUTSIDE RECORDS SUMMARY | 2025-03-15 20:32 | XMS_ITS | Patient Health Record ---
Author Organization [facility] Address [address] [place] [address] Phone [phone] Care Team Providers Care Secretary Board Of Commissioners Name Role Phone Rebecca Satya Primary Care Provider [phone] Richard Fish APRN Unavailable Minerva Peacock Unavailable [phone] Allergies Allergen (clinical drug ingredient) Drug/Non Drug Allergy documented on EMR Reaction Allergy Type Onset Date Status azithromycin Zithromax Unknown Drug Allergy Acti ve codeine Codeine Unknown Drug Allergy Active Results Component Value Reference Range Notes 14 Panel Urine Drug Screen Order date: 01/07/2025 Reviewed date:01/07/2025 11:26:14 AM Interpretation: Performing Lab: Notes/Report: THC POS JULISA neg MOP (OPI) neg AMP neg MET neg BAR neg BZO POS MDMA neg MTD neg OXY POS PCP neg BUP POS TCA neg FTY ne 12 Panel Urine Drug Screen Order date: 05/27/2024 Reviewed date:05/27/2024 02:25:41 PM Interpretation: Performing Lab: Notes/Report: THC POS JULISA neg MOP (OPI) neg AMP neg MET neg BAR neg BZO neg MDMA neg MTD neg OXY neg PCP neg BUP POS 14 Panel Urine Drug Screen Order date: 11/11/2024 Reviewed date:11/11/2024 02:32:46 PM Interpretation: Performing Lab: Notes/Report: THC POS JULISA neg MOP (OPI) neg AMP neg MET neg BAR neg BZO POS MDMA neg MTD neg OXY POS PCP neg BUP POS TCA neg FTY neg 12 Panel Urine Drug Screen Order date: 05/13/2024 Reviewed date:05/13/2024 01:25:08 PM Interpretation: Performing Lab: Notes/Report: THC pos JULISA neg MOP (OPI) neg AMP neg MET neg BAR neg BZO neg MDMA neg MTD neg OXY neg PCP neg BUP pos 12 Panel Urine Drug Screen Order date: 08/19/2024 Reviewed date:08/26/2024 04:14:22 PM Interpretation: Performing Lab: Notes/Report: THC pos JULISA neg MOP (OPI) neg AMP neg MET neg BAR neg BZO pos MDMA neg MTD neg OXY pos PCP neg BUP pos 12 Panel Urine Drug Screen Order date: 07/08/2024 Reviewed date:07/12/2024 01:10:26 PM Interpretation: Performing Lab: Notes/Report: THC POS JULISA neg MOP (OPI) neg AMP POS MET POS BAR neg BZO neg MDMA neg MTD neg OXY neg PCP neg BUP POS Reason For Referral Referral Date 01/07/2025 Referral Status Open Reason boil in perineum Diagnosis 1 Boil (L02.92) Referral Organization [facility] Referring Provider First Name Satya Referring Provider Last Name Rebecca Referring Provider Speciality Internal M edicine Referred Provider Specialty Surgery General Notes Neda GUERO, Beena Beltran 01/2025 02:12:27 PM >confirmed taking clients insurance referral faxed letter mailed Clinical Notes [facility], [address] [facility] [address], [facility], , fax [phone] Referral Priority Urgent Addressed Referral details can be found under 'Consultation Request Notes' section Medications Medication SIG (Take, Route, Frequency, Duration) Notes Start Date End Date Diagnosis (ICD Code) Status Buprenorphine HCl-Naloxone HCl 8-2 MG Film 1 film under the tongue and allow to dissolve Sublingual daily; Duration: 30 days 03/07/2025 Opioid use disorder (ICD_10 - F11.99) Active clonazePAM 2 MG Tablet 1 tablet Orally every 6 hours; Duration: 30 days As needed SEVERE ANXIETY 03/07/2025 Anxiety (ICD_10 - F41.9) Active Sertraline HCl 100 MG Tablet 1 tablet Orally Once a day; Duration: 30 days Anxiety (ICD_1 0 - F41.9) Active oxyCODONE HCl 15 MG Tablet 1 tablet as needed Orally 4 times a day; Duration: 30 days As needed severe pain 03/07/2025 Anxiety (ICD_10 - F41.9) Active Montelukast Sodium 10 MG Tablet 1 tablet Orally Once a day; Duration: 30 day(s) 03/07/2025 Chronic rhinitis (ICD_10 - J31.0) Active Social History Tobacco Use: Social History Observation Description Date Details (start date - stop date) Current Smoker 01/05/2005 - NA Sex Observation Social History Observation Description Sex Observation Female Sexual Orientation Social History Observation Description Sexual Orientation Straight or heterose xual Gender Identity Social History Observation Description Gender Identity Female SDOH Assessments Date Tool Assessment Assessment LOINC Value Assessment Notes Goals Interventions 10/13/19 25 PRAPARE (LOINC: 78808-3) Total Score: 6 What was your release date? 07/01/19 19 Date Completed/Updated: 07/02/2018 What is your current housing situation? 05530-0 I have housing (LK13810-7) Are you worried about losing your housing? 73833-0 No (LA32-8) What is the highest level of school that you have finished? 37085-4 High school diploma or GED (QI09990-0) What is your current work situation? 09272-2 Unemployed and seeking work (CC89572-8) In the past year, have you o r any family members you live with been unable to get any of the following when it was really needed? Check all that apply 55522-0 I do not have problems meeting my needs Has lack of transportation k ept you from medical appointments, meetings, work or from getting things needed for daily living? 94595-1 No (LA32-8) How often do you see or talk to people that you care about and feel close to? (For example: talking to friends on the phone, visiting friends or family, going to yazdanism or club meetings) 17063-1 More than 5 times a week (KV01433-2) How stressed are you? Stress is when someone feels tense, nervous, anxious, or can\t sleep at night because their mind is troubled 13178-5 A little bit (PP89965-7) In the past year have you sp ent more than 2 nights in a row in a group home, detention, long term center, or juvenile correctional facility? 31411-0 Yes (LA33-6) Do you feel physically and e motionally safe where you currently live? 20168-1 Yes (LA33-6) In the past year, have you b een afraid of your partner or ex-partner? 01747-5 No (LA32-8) Are you a refugee? No What country are you from? [facility] PRAPARE Score: 6 Social History Miscellaneous Social Info Question Answer Notes Method of learning: Preferred method of learning: Read ing Primary Social History Social Info Question Answer Notes Living Arrangement Living Arrangement: Independent Ernestine ing Is this a supportive environment? Yes Single Question Alcohol Screening How ma ny times in the past year have you had (4 for women, or 5 for men) or more drinks in a day? 0 Tobacco Use: Social Info Question Answer Notes Tobacco Control (Standard) Tobacco use: Current smoker When did you start smoking? 01/05/2005 How often do you smoke cigarettes? Every day How many cigarettes a day do you smoke? 11-20 How soon after you wake up do you smoke your first cigarette? Within 5 minutes Are you interested in quitting? Thinking about quitting Additional Findings: Tobacco user Heavy cigarette smoker (20-39 cigs/day),Very heavy cigarette smoker (40+ cigs/day) Additional Findings: Tobacco non-user Does not u se moist powdered tobacco Problems Problem Type SNOMED Code ICD Code Dates Problem Status W/U Status Risk Notes Problem Tobacco user (189313824) Nicotine dependence, unspecified, uncomplicated (F17.200) Added On:2024 Active confirmed Problem Chronic rhinitis (44107237) Chronic rhinitis (J31.0) Added On:2024 Active confirmed Problem Anxiety (17410996) Anxiety (F41.9) Added On:2024 Active confirmed Problem Exacerbation of asthma (553758363) Asthma exacerbation (J45.901) Added On:2023 Active confirmed Problem Mild intermittent asthma (331675561) Mild intermittent asthma without complication (J45.20) Added On:2023 Active confirmed Problem Tobacco use (039403051) Tobacco use disorder (F17.200) Added On:2023 Active confirmed Problem Lymphoma involves multiple lymph node regions (finding) (637950140) Lymphoma of lymph nodes of multiple regions, 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) Added On:2023 Active confirmed Problem Opioid use disorder (4677983448) Opioid use disorder (F11.99) Added On:2018 Active confirmed Vital Signs Vital Sign Value Notes Appt Date Heart Rate 72 /min 03/07/2025 Temperature 98.5 degrees Fahrenheit 06/2024 Respiratory Rate 16 /min 03/07/2025 Oximetry 100 % 03/07/2025 Blood pressure diastolic 68 mm Hg 04/2024 Height 62 in 03/07/2025 Blood pressure systolic 106 mm Hg 04/2024 Weight 112.2 lbs 03/07/2025 BMI 20.52 kg/m2 03/07/2025 Encounters Date Time Type Facility Location Provider Diagnosis 05/13/19 25 01:00 PM Office Visit, Est Pt., Level 3 (13950) [address] [place] [address] Minerva Mcallistereliezer Patient underweight R63.6 ; Opioid use disorder F11.99 ; Non-tobacco user Z78.9 and Nutritional counseling Z71.3 05/27/19 25 02:00 PM Office Visit, Est Pt., Level 3 (70192) Formerly [facility], [facility] [place] [address] Richard Fish Opioid use disorder F11.99 and Nicotine dependence, unspecified, uncomplicated F17.200 07/09/19 25 02:20 PM Office Visit, Est Pt., Level 3 (96191) Formerly [facility], [facility] [place] [address] Nguyenia Abe Opioid use disorder F11.99 and Nicotine dependence, unspecified, uncomplicated F17.200 08/20/19 25 02:00 PM Office Visit, Est Pt., Level 3 (46919) [address] [place] [address] Nguyenbrissa Blairericka Opioid use disorder F11.99 and Tobacco use disorder F17.200 10/02/19 25 09:40 AM Office Visit, Est Pt., Level 3 (82855) [address] [address] [place] [address] Satya Fernandez Opioid use disorder F11.99 ; Lymphoma of lymph nodes of multiple regions, unspecified lymphoma type C85.98 ; Tobacco use disorder F17.200 and Anxiety F41.9 10/13/19 25 01:40 PM Telehealth Office Visit, Est Pt., Level 3 (65289) [address] [address] Satya Fernandez Opioid use disorder F11.99 ; Lymphoma of lymph nodes of multiple regions, unspecified lymphoma type C85.98 and Anxiety F41.9 11/12/19 01:20 PM Office Visit, Est Pt., Level 3 (59968) [address] [address] Satyaovidio Fernandez Lymphoma of lymph nodes of multiple regions, unspecified lymphoma type C85.98 ; Opioid use disorder F11.99 and Anxiety F41.9 12/11/19 25 10:20 AM Office Visit, Est Pt., Level 3 (52337) [address] [address] Satya Fernandez Opioid use disorder F11.99 ; Anxiety F41.9 and Diarrhea R19.7 01/08/20 25 11:00 AM Office Visit, Est Pt., Level 4 (55852) [address] [address] Satya Fernandez Opioid use disorder F11.99 ; Anxiety F41.9 ; Boil L02.92 and Lymphoma of lymph nodes of multiple regions, unspecified lymphoma type C85.98 03/07/20 25 09:40 AM Office Visit, Est Pt., Level 3 (69741) [facility]ly [facility], [facility] [place] [address] Satya Fernandez Anxiety F41.9 ; Opioid use disorder F11.99 ; Lymphoma of lymph nodes of multiple regions, unspecified lymphoma type C85.98 and Chronic rhinitis J31.0 09/25/19 03:16 PM Telephone Encounter [facility]ly [facility], [facility] [place] [address] Richard Fish 10/14/19 04:28 PM Telephone Encounter [address] [place] [address] Satya Fernandez 10/29/19 02:07 PM Telephone Encounter [address] [address] [place] [address] Richard Fish 11/04/19 09:04 AM Telephone Encounter [address] [place] [address] Satya Fernandez UTI symptoms R39.9 11/30/19 10:40 AM Telephone Encounter [address] [place] [address] Satya Fernandez Anxiety F41.9 01/04/20 11:14 AM Telephone Encounter [facility] [facility] [place] [address] Satya Fernandez 01/05/20 03:50 PM Telephone Encounter [address] [place] [address] Satyaovidio Fernandez Anxiety F41.9 01/12/20 01:46 PM Telephone Encounter [address] [place] [address] Satya Fernandez Anxiety F41.9 01/13/20 01:23 PM Telephone Encounter [address] [place] [address] Satya Fernandez 09/28/19 10:47 AM Web Encounter [address] [address] [place] [address] Richard Fish 10/12/19 11:14 AM Web Encounter [facility]ly [facility], [facility] [place] [address] Satya Fernandez 10/21/19 11:23 PM Web Encounter [facility]ly [facility], [facility] [place] [address] Satya Fernandez Lymphoma of lymph nodes of multiple regions, unspecified lymphoma type C85.98 ; Anxiety F41.9 and Opioid use disorder F11.99 10/26/19 09:41 AM Web Encounter [facility]ly [facility], [facility] [place] [address] Satya Fernandez 10/26/19 09:44 AM Web Encounter [address] [place] [address] Satya Fernandez 10/26/19 09:44 AM Web Encounter [facility]ly [facility], [facility] [facility] [place] [address] Satya Fernandez 10/26/19 10:08 AM Web Encounter [address] [address] [facility] [place] [address] Satya Fernandez 10/26/19 01:59 PM Web Encounter [address] [address] [place] [address] Satya Fernandez Lymphoma of lymph nodes of multiple regions, unspecified lymphoma type C85.98 ; Anxiety F41.9 and Opioid use disorder F11.99 10/27/19 11:50 AM Web Encounter [facility]ly [facility], [facility] [place] [address] Satya Fernandez 10/27/19 07:56 PM Web Encounter [facility]ly [facility], [facility] [place] [address] [facility] [place] [address] Satya Fernandez 11/24/19 03:12 AM Web Encounter [facility]ly [facility], [facility] [place] [address] Satya Fernandez Lymphoma of lymph nodes of multiple regions, unspecified lymphoma type C85.98 and Anxiety F41.9 12/08/19 11:26 AM Web Encounter [facility]ly [facility], [facility] [place] [address] Satya Fernandez 12/08/19 11:26 AM Web Encounter [facility]ly [facility], [facility] [place] [address] Satya Fernandez Lymphoma of lymph nodes of multiple regions, unspecified lymphoma type C85.98 12/20/19 10:59 AM Web Encounter [facility]ly [facility], [facility] [place] [address] Satya Fernandez Lymphoma of lymph nodes of multiple regions, unspecified lymphoma type C85.98 12/22/19 02:08 PM Web Encounter [facility]ly [facility], [facility] [place] [address] Satya Fernandez 12/28/19 10:47 AM Web Encounter [facility]ly [facility], [facility] [place] [address] Satya Fernandez Lymphoma of lymph nodes of multiple regions, unspecified lymphoma type C85.98 and Anxiety F41.9 12/28/19 10:47 AM Web Encounter [facility]ly [facility], [facility] [place] [address] Satya Fernandez 01/04/20 02:05 AM Web Encounter [address] [place] [address] Satya Fernandez Lymphoma of lymph nodes of multiple regions, unspecified lymphoma type C85.98 01/11/20 11:14 AM Web Encounter [address] [place] [address] Satya Fernandez 01/11/20 11:14 AM Web Encounter [address] [place] [address] Satya Fernandez 01/11/20 11:14 AM Web Encounter [address] [place] [address] Satya Fernandez Opioid use disorder F11.99 and Anxiety F41.9 01/12/20 02:11 PM Web Encounter [address] [place] [address] Satya Fernandez 01/13/20 12:17 PM Web Encounter [place] [address] [address] Satya Fernandez 01/13/20 12:20 PM Web Encounter [address] [address] Satya Fernandez 01/13/20 01:26 PM Web Encounter [address] [address] Satya Fernandez 01/25/20 02:08 AM Web Encounter [address] [address] Satya Fernandez 01/25/20 02:08 AM Web Encounter [address] [address] Satya Fernandez 01/25/20 02:17 PM Web Encounter [address] [address] Satya Fernandez 01/26/20 11:02 AM Web Encounter [address] [address] Satya Fernandez 01/26/20 01:11 PM Web Encounter [address] [address] Satya Fernandez 01/26/20 01:11 PM Web Encounter [address] [address] Satya Fernandez Anxiety F41.9 02/01/20 11:11 AM Web Encounter [address] [address] Satya Rebecca Opioid use disorder F11.99 and Anxiety F41.9 02/01/20 11:11 AM Web Encounter [address] [address] Satya Fernandez 02/09/20 12:11 AM Web Encounter [address] [address] Satya Fernandez 02/09/20 12:11 AM Web Encounter [address] [place] [address] Satya Fernandez 02/09/20 25 12:11 AM Web Encounter [address] [address] Satya Fernandez Anxiety F41.9 02/09/20 25 12:11 AM Web Encounter [address] [address] Satya Fernandez Opioid use disorder F11.99 02/09/20 25 09:26 PM Web Encounter [address] [address] Satya Fernandez 02/09/20 25 09:26 PM Web Encounter [address] [address] Satya Fernandez 02/22/20 25 09:08 AM Web Encounter [address] [address] Satya Fernandez 02/22/20 25 09:08 AM Web Encounter [address] [address] Satya Fernandez Anxiety F41.9 03/08/20 25 02:20 PM Web Encounter [address] [address] Satya Fernandez Assessments Encounter Date Diagnosis (ICD Code) Assessment Notes Treat ment Notes Section Notes 11/03/2024 UTI symptoms (ICD-10 - R39.9) 10/01/2024 Opioid use disorder (ICD-10 - F11.99) 01/10/2025 Opioid use disorder (ICD-10 - F11.99) 01/31/2025 Opioid use disorder (ICD-10 - F11.99) 02/08/2025 Opioid use disorder (ICD-10 - F11.99) 03/07/2025 Opioid use disorder (ICD-10 - F11.99) 10/12/2024 Opioid use disorder (ICD-10 - F11.99) 11/23/2024 [...] 11/11/2024 Opioid use disorder (ICD-10 - F11.99) 12/10/2024 Opioid use disorder (ICD-10 - F11.99) 01/07/2025 Opioid use disorder (ICD-10 - F11.99) 05/13/2024 Opioid use disorder (ICD-10 - F11.99) 05/27/2024 Opioid use disorder (ICD-10 - F11.99) 07/08/2024 Opioid use disorder (ICD-10 - F11.99) 08/19/2024 Opioid use disorder (ICD-10 - F11.99) 05/13/2024 Patient underweight (ICD-10 - R63.6) 10/01/2024 Lymphoma of lymph nodes of multiple regions, unspecified lymphoma type (ICD-10 - C85.98) 10/12/2024 Lymphoma of lymph nodes of multiple regions, unspecified lymphoma type (ICD-10 - C85.98) 10/20/2024 Lymphoma of lymph nodes of multiple regions, unspecified lymphoma type (ICD-10 - C85.98) 10/25/2024 Lymphoma of lymph nodes of multiple regions, unspecified lymphoma type (ICD-10 - C85.98) 11/11/2024 Lymphoma of lymph nodes of multiple regions, unspecified lymphoma type (ICD-10 - C85.98) 01/04/2025 Anxiety (ICD-10 - F41.9) 01/07/2025 Anxiety (ICD-10 - F41.9) 08/19/2024 Tobacco use disorder (ICD-10 - F17.200) 05/27/2024 Nicotine dependence, unspecified, uncomplicated (ICD-10 - F17.200) 01/11/2025 Anxiety (ICD-10 - F41.9) 01/25/2025 Anxiety (ICD-10 - F41.9) 02/08/2025 Anxiety (ICD-10 - F41.9) 02/21/2025 Anxiety (ICD-10 - F41.9) 03/07/2025 Anxiety (ICD-10 - F41.9) 11/29/2024 Anxiety (ICD-10 - F41.9) 12/10/2024 Anxiety (ICD-10 - F41.9) 12/27/2024 Anxiety (ICD-10 - F41.9) 01/31/2025 Anxiety (ICD-10 - F41.9) 07/08/2024 Nicotine dependence, unspecified, uncomplicated (ICD-10 - F17.200) 10/12/2024 Anxiety (ICD-10 - F41.9) 10/20/2024 Anxiety (ICD-10 - F41.9) 10/25/2024 Anxiety (ICD-10 - F41.9) 11/11/2024 Anxiety (ICD-10 - F41.9) 11/23/2024 Anxiety (ICD-10 - F41.9) 10/01/2024 Tobacco use disorder (ICD-10 - F17.200) 01/10/2025 Anxiety (ICD-10 - F41.9) 12/10/2024 Diarrhea (ICD-10 - R19.7) 01/07/2025 Boil (ICD-10 - L02.92) 03/07/2025 Lymphoma of lymph nodes of multiple regions, unspecified lymphoma type (ICD-10 - C85.98) 05/13/2024 Non-tobacco user (ICD-10 - Z78.9) 01/07/2025 Lymphoma of lymph nodes of multiple regions, unspecified lymphoma type (ICD-10 - C85.98) 05/13/2024 Nutritional counseling (ICD-10 - Z71.3) 10/20/2024 Opioid use disorder (ICD-10 - F11.99) 10/25/2024 Opioid use disorder (ICD-10 - F11.99) 03/07/2025 Chronic rhinitis (ICD-10 - J31.0) 10/01/2024 Anxiety (ICD-10 - F41.9) 07/08/2024 Other Patient agrees to take medication as prescribed. Discussed medication side effects, adverse effects, risks, benefits, as well as interactions. Encouraged non-use of opioids. Has naloxone. Recommended participation in recovery groups and/or counseling services. May contact office with questions or concerns. 08/19/2024 Other Discussed medication side effects, adverse [...] May contact office with questions or concerns. 11/03/2024 Other Learning About the Safe Use [...] Insured Coverage Start Date Coverage End Date [employer] [address] [place] [address] [id number] Soha Marrero Self - patient is the insured 2 [employer] [address] [place] [address] [id number] Soha Marrero Self - patient is the insured 4 Medical (General) History Medical History History ICD Code Bipolar 1 Disorder Alcohol Use Disorder Lymphoma Surgical History Surgery Date(Month/Year) Ectopic Open Chest Surgery Chemo Port 2022 Hospitalization History Reason Date(Month/Year) [facility] x2
--- OUTSIDE RECORDS SUMMARY | 2025-03-15 20:32 | XMS_ITS | Encounter Summary ---
Author Organization [facility] Address [address] [place] [address] Phone Care Team Providers Care Retail And Restaurant Associate Name Role Phone Gabriel Salmeron MD Unavailable [phone] Brooks Sosa MD Unavailable [phone] Provider, None Primary Care Provider UnavailKervin Rubi MD Unavailable [phone] Reason for Visit * Reason Comments Medication Refill Encounter Details Date Type Department Care Team (Late st Contact Info) Description 02/21/2025 Refill [facility] [address] [place] [address] Gabriel Salmeron MD [address] [place] [address] Medication Refill Social History Tobacco Use Types Packs/Day Years Used Date Smoking Tobacco: Every Day Cigarettes 1 14.9 Started: 04/07/2010 Passive Smoke Exposure: Current Smokeless Tobacco: Never Alcohol Use Standard Drinks/Week Comments Yes 2 (1 standard drink = 0.6 oz pur e alcohol) occasional [facility] Utilities Answer Date Recorded In the past 12 months has [employer] electric, gas, oil, or water company threatened [...] week 05/07/2023 How often do you attend pentecostal or congregational serv ices? Never 05/07/2023 Do you belong to any clubs o r organizations such as pentecostal groups, unions, fraternal or athletic groups, or [...] Total Score - Questions 1-9 9 06/06 [facility] - Occupational [...] place to sleep or slept in a halfway (including now)? 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 O PLANT TECHNICIAN documented in this encounter Plan of Treatment Not on file documented as of this encounter Goals Goal Patient Goal Type Associated Problems [...] Ready to change Department associated with goal: [facility] Steps to achieve [...] to use when a triggering event occurs documented as of this encounter Visit Diagnoses Not on filedocumented in this encounter Additional Health Concerns Assessment Noted Time PHQ-9 Depression Total Score: 9 06/25/19 24 11:00 AM CDT documented as of this encounter Care Teams Retail And Restaurant Associate Relationship Specialty Start Date End Date Provider, None [place] PCP - General 06/17/24 Gabriel Salmeron MD [address] [place] [address] Consulting Physician Medical Oncology 05/23/23 Brooks Sosa MD [address] [place] [id number] Consulting Physician Neurology 01/22/24 Kervin Jiang MD [address] [id number] Consulting Physician General Surgery 06/11/24 documented as of this encounter
--- OUTSIDE RECORDS SUMMARY | 2025-03-15 20:32 | XMS_ITS | Clinical Summary ---
Author Organization [facility] Address [address] [place] [address] Care Team Providers Care Flatbed Truck Driver Name Role Phone None, Provider MD Primary [...] Care Team Description 02/09/2025 5:04 PM MANAGER SOFTWARE DEVELOPMENT - 02/09/2025 7:39 PM MANAGER SOFTWARE DEVELOPMENT Emergency [facility] [place] [address] Rishi Cote MD Medical Screening Discharge Disposition: Home or Self Care (Routine Discharge) 02/09/2025 Travel 01/27/2025 Results Follow-Up [facility] [address] [place] [address] Thalia Hall, BELLA Pathology 01/24/2025 11:15 PM CDT - 01/25/2025 1:40 AM CDT Emergency [facility] [place] [address] Koko Johnson MD,PHD Mouth Sores Discharge Disposition: [...] Assigned at Female 02/09/2025 4:27 PM MANAGER SOFTWARE DEVELOPMENT Legal Sex Female 7:16 PM CDT Gender Identity Not on file Sexual Orientation Not on file Last Filed Vital Signs Vital Sign Reading Time Taken Comments Blood Pressure 109/64 02/09/2025 4:22 PM MANAGER SOFTWARE DEVELOPMENT Pulse 102 02/09/2025 4:22 PM MANAGER SOFTWARE DEVELOPMENT Temperature 37.6 C (99.7 F) 02/09/2025 4:22 PM MANAGER SOFTWARE DEVELOPMENT Respiratory Rate 20 02/09/2025 4:22 PM MANAGER SOFTWARE DEVELOPMENT Oxygen Saturation 99% 02/09/2025 4:22 PM MANAGER SOFTWARE DEVELOPMENT Inhaled Oxygen Concentration - - Weight 49.6 kg (109 lb 5.6 oz) 02/09/2025 4:22 P M MANAGER SOFTWARE DEVELOPMENT Height 160 cm (5' 3) 02/09/2025 4:22 PM MANAGER SOFTWARE DEVELOPMENT Body Mass Index 19.37 02/09/2025 4:22 PM MANAGER SOFTWARE DEVELOPMENT Plan of Treatment Health Maintenance Due Date Last Done Comments Annual Physical 02/21/1995 Hepatitis C 02/21/2010 Hepatitis B Vaccines (1 of 3 - 19+ 3-dose series) 02/21/2011 Pneumococcal Vaccine: Pediatrics (0 to 5 Years) and At-Risk Patients (6 to 49 Years) (1 of 2 - PCV) 02/21/2011 HPV Vaccines (1 - 3-dose SCD M series) 02/21/2019 Cervical Cancer Screening Pa p with HPV Testing (Age 30 to 64) Every 5 Years 02/21/2022 COVID-19 Vaccine (3 - 2024-2 6 season) 2024 11/27/2020, 11/06/2020 Influenza Adult (#1) 2025 04/02/2022 Cervical Cancer Screening Pa p Smear (Age 30 to 64) Every 3 Years 07/30/2027 07/29/2024, 07/29/2024, 07/29/2024 Cervical Cancer Screening wi th HPV 07/30/2027 DTaP, Tdap and Td Vaccines ( 3 - Td or Tdap) 02/07/2032 02/06/2022, 11/05/2020 Hepatitis A Vaccines Aged Out No long er eligible based on patient's age to complete this topic Meningococcal B Vaccine Aged Out No l onger eligible based on patient's age to complete this topic Meningococcal Vaccine Aged Out No garcy vasile eligible based on patient's age to complete this topic RSV Immunizations Under 20 Months Aged Out No longer eligible b ased on patient's age to complete this topic Procedures Procedure Name Priority Date/Time Associated Diagnosis Comments LACTIC ACID W REFLEX (SEPSIS) STAT 02/09/2025 5:42 PM MANAGER SOFTWARE DEVELOPMENT BASIC METABOLIC PANEL STAT 02/09/2025 5:42 PM MANAGER SOFTWARE DEVELOPMENT CBC W/DIFF AUTOMATED STAT 02/09/2025 5:42 PM MANAGER SOFTWARE DEVELOPMENT PATHOLOGY Routine 01/25/2025 12:00 AM CDT FLOW CYTOMETRY (LEUKEMIA/LYMPHOMA PANEL) Routine 01/24/2025 11:29 PM CDT HC HCG QL STAT 01/24/2025 11:29 PM CDT HC COMPREHENSIVE METABOLIC PANEL STAT 01/24/2025 11:29 PM CDT HC CBC AUTO W/AUTO DIFF STAT 01/24/2025 11:29 PM CDT from Last 3 Months Results * LACTIC ACID W REFLEX (SEPSIS) (02/09/2025 5:42 PM MANAGER SOFTWARE DEVELOPMENT) Pathologist [facility] LACTIC ACID VENOUS 1.0 0.4 - 2.0 MMOL/L 02/09/2025 6:19 PM MANAGER SOFTWARE DEVELOPMENT [facility] 02/09/2025 5:42 PM MANAGER SOFTWARE DEVELOPMENT Ronit Haque EVENT SALES REPRESENTATIVE LABORATORY Final Resul t [facility] [address] [place] [address], [place] [phone] * BASIC METABOLIC PANEL (02/09/2025 5:42 PM MANAGER SOFTWARE DEVELOPMENT) GLUCOSE 86 70 - 99 MG/DL 02/09/2025 6:19 PM MANAGER SOFTWARE DEVELOPMENT [facility] BUN 11 7 - 18 MG/DL 02/09/2025 6:19 PM [facility] CREATININE S/P/B 0.72 0.55 - 1.02 MG/DL 02/09/2025 6:19 PM [facility] SODIUM S/P/B 140 136 - 145 MMOL/L 02/09/2025 6:19 PM [facility] POTASSIUM S/P/B 3.6 3.5 - 5.1 MMOL/L 02/09/2025 6:19 PM [facility] CHLORIDE S/P/B 104 97 - 115 MMOL/L 02/09/2025 6:19 PM [facility] CO2 31.1 21 - 32 MMOL/L 02/09/2025 6:19 PM [facility] CALCIUM S/P/B 9.1 8.5 - 10.1 MG/DL 02/09/2025 6:19 PM [facility] ANION GAP 4.9 2 - 10 MMOL/L 02/09/2025 6:19 PM [facility] BUN CREATININE RATIO 15.3 6 - 26 02/09/2025 6:19 PM [facility] GFR ESTIMATE >90 >90 ML/MIN/1.7 3 M2 02/09/2025 6:19 PM [facility] Comment: NOTE: eGFR is not calculated for patients <18 years of age or gender unknown. This is an estimated GFR calculation using the new CKD EPI creatinine equation without race and so does not require a correction factor for race. This estimated GFR should not be used for calculating drug doses. 02/09/2025 5:42 PM MANAGER SOFTWARE DEVELOPMENT us Ronit Haque EVENT SALES REPRESENTATIVE LABORATORY Final Resul t [facility] [address] [place] [address], [place] [phone] * (ABNORMAL) CBC W/DIFF AUTOMATED (02/09/2025 5:42 PM MANAGER SOFTWARE DEVELOPMENT) Only the most recent of2 resultswithin the time period is included. WBC 17.24(H) 4.5 - 11.0 x10'3/uL 02/09/2025 5:57 PM MANAGER SOFTWARE DEVELOPMENT [facility] RBC 2.90(L) 4.20 - 5.40 x10'6/uL 02/09/2025 5:57 PM MANAGER SOFTWARE DEVELOPMENT [facility] HGB 8.5(L) 12.0 - 16.0 G/DL 02/09/2025 5:57 PM [facility] HCT 27.1(L) 38.0 - 48.0 % 02/09/2025 5:57 PM MANAGER SOFTWARE DEVELOPMENT [facility] MCV 93.4 81.0 - 99.0 FL 02/09/2025 5:57 PM MANAGER SOFTWARE DEVELOPMENT [facility] MCH 29.3 27.0 - 31.0 PG 02/09/2025 5:57 PM MANAGER SOFTWARE DEVELOPMENT [facility] MCHC 31.4(L) 32.0 - 36.0 G/DL 02/09/2025 5:57 PM MANAGER SOFTWARE DEVELOPMENT [facility] RDW 17.9(H) 11.5 - 14.5 % 02/09/2025 5:57 PM MANAGER SOFTWARE DEVELOPMENT [facility] PLT 142 130 - 400 x10'3/uL 02/09/2025 5:57 PM MANAGER SOFTWARE DEVELOPMENT [facility] MPV 9.9 9.3 - 12.2 FL 02/09/2025 5:57 PM [facility] DIFFERENTIAL TYPE MANUAL DIFFERENTIAL 02/09/2025 6:25 PM MANAGER SOFTWARE DEVELOPMENT [facility] SEG NEUTROPHILS 10 % 6:25 PM [facility] LYMPHOCYTES 89 % 02/09/2025 6:25 PM MANAGER SOFTWARE DEVELOPMENT [facility] MYELOCYTES 1 % 02/09/2025 6:25 PM MANAGER SOFTWARE DEVELOPMENT [facility] ABS. NEUTROPHILS 1.72(L) 1.80 - 7.70 x10'3/uL 02/09/2025 6:25 PM MANAGER SOFTWARE DEVELOPMENT [facility] ABS. LYMPHOCYTES 15.34(H) 1.00 - 4.80 x10'3/uL 02/09/2025 6:25 PM MANAGER SOFTWARE DEVELOPMENT [facility] ABS. MYELOCYTES 0.17(H) 0.00 x10'3/uL 02/09/2025 6:25 PM [facility] RBC MORPHOLOGY RBC MORPHOLOGY APPEARS NORMAL. SLIDE REVIEWED. 02/09/2025 6:25 PM MANAGER SOFTWARE DEVELOPMENT [facility] PLT EST. ADEQUATE 02/09/2025 6:25 PM [facility] 02/09/2025 5:42 PM MANAGER SOFTWARE DEVELOPMENT Ronit Haque EVENT SALES REPRESENTATIVE LABORATORY Final Resul t [facility] [address] [place] [id number], * Pathology (01/25/2025 12:00 AM CDT) PATHOLOGY [facility] Department of Laboratory Medicine [address] [place] [address] , extension [phone] Pathology Report Addendum Peripheral Smear Report Name: SOHA MARRERO Specimen #: [id number] Age: 11 1990 (Age: 34) Location: [place] Sex: F Procedure Date: 01/25/2025 [facility] #: [id number] Date Received: 01/25/2025 Date Reported: Provider: KOKO [...] currently being followed at [facility] for follicular lymphoma. There is [...] case was interpreted and signed out at [facility], [address] [place] [address]. Addenda/Procedures Addendum Date Ordered: 01/29/2025 Status: Signed Out Date Complete: 01/29/2025 By: LISY CALLEJAS Date Reported: 01/29/2025 Addendum Diagnosis Peripheral blood, smear review: -Circulating follicular lymphoma cells; see comment Addendum Comment This addendum is created to report on the flow cytometry results performed on the peripheral blood. Flow cytometry ([id number]) demonstrates a kappa-restricted CD10 positive B-cell lymphoproliferative disorder with an immunophenotype compatible with the patient's history of follicular lymphoma. The overall morphologic/immunoph enotypic findings support circulating follicular lymphoma cells. This addendum was interpreted and signed out at [place] [address]. [facility] 01/25/2025 01/25/2025 9:4 7 AM CDT Comment:Peripheral blood us Koko Johnson MD,PHD PATHOLOGY/CYTOLOGY ORDERAB LES Final Result [facility] [address] [place] [address], [phone] * Flow Cytometry (01/24/2025 11:29 PM CDT) FLOW CYTOMETRY RESULTS [facility] Department of Laboratory Medicine [address] [place] [address] , extension [phone] Pathology Report Flow Cytometry Report Name: SOHA MARRERO Specimen #: [id number] Age: 11 1990 (Age: 34) [place] [facility] [place]: F Procedure Date: 01/24/2025 [facility] #: [id number] Date Received: 01/25/2025 Date Reported: 01/29/2025 Provider: KOKO JOHNSON MD PHD Source: Peripheral blood (See report [id number]) FINAL DIAGNOSIS: Peripheral blood, smear review: -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 Correlation with [id number] is recommended. Result: The sample is adequate with a viability of 98%. The B cells represent 77.8% of the lymphocytes, (89% of the total events analyzed) and coexpress CD19 dim, CD20 dim, CD10, and CD23 dim and are essentially negative for CD5 and CD200. Surface immunoglobulin light chains shows a Parkin:Lambda ratio of >997.0 (99.7:<0.1). The T-cells represent 11% of lymphocytes (9.8% of total cellularity) with a CD4:CD8 ratio of 1.7. Tested: CD45, CD19, CD20, Surface Parkin, Surface Lambda, CD5, CD10, CD38, CD34, CD14, CD117, CD4, CD8, CD3, CD7, CD56. This case was interpreted and signed out at [facility], [address] [place] [phone]. Electronically Signed Out LISY COTE MD This test was developed and its performance characteristics determined by [facility]. It has not been cleared or approved by the U.S. Food and Drug Administration. However, the use of Analyte Specific Reagents does not require FDA approval. [facility] 01/24/2025 11:2 9 PM CDT 01/25/2025 12:10 PM CDT Comment:Peripheral blood (Se e report [id number]) us Koko Johnson MD,PHD PATHOLOGY/CYTOLOGY ORDERAB LES Final Result [facility] [address] [place] [address], [phone] * COMPREHENSIVE METABOLIC PANEL (01/24/2025 11:29 PM CDT) GLUCOSE 88 70 - 99 MG/DL 01/25/2025 12:20 AM CDT [facility] BUN 17 7 - 18 MG/DL 01/25/2025 12:20 AM CDT [facility] CREATININE S/P/B 0.87 0.55 - 1.02 MG/DL 01/25/2025 12:20 AM CDT [facility] SODIUM S/P/B 138 136 - 145 MMOL/L 01/25/2025 12:20 AM CDT [facility] POTASSIUM S/P/B 4.1 3.5 - 5.1 MMOL/L 01/25/2025 12:20 AM CDT [facility] CHLORIDE S/P/B 101 97 - 115 MMOL/L 01/25/2025 12:20 AM CDT [facility] CO2 31.4 21 - 32 MMOL/L 01/25/2025 12:20 AM CDT [facility] CALCIUM S/P/B 9.1 8.5 - 10.1 MG/DL 01/25/2025 12:20 AM CDT [facility] BILIRUBIN TOTAL S/P/B 0.4 0.2 - 1.2 MG/DL 01/25/2025 12:20 AM T [facility] Comment: THIS ASSAY IS NOT RECOMMENDED FOR PATIENTS UNDERGOING TREATMENT WITH ELTROMBOPAG DUE TO THE POTENTIAL FOR FALSELY ELEVATED RESULTS. TOTAL PROTEIN S/P/B 6.4 6.4 - 8.2 G/DL 01/25/2025 12:20 AM T [facility] ALBUMIN S/P/B 3.5 3.4 - 5.0 G/DL 01/25/2025 12:20 AM T [facility] AST 22 15 - 37 U/L 01/25/2025 12:20 AM [facility] ALT 26 14 - 55 U/L 01/25/2025 12:20 AM [facility] ALKALINE PHOSPHATASE S/P/B 119 50 - 136 U/L 01/25/2025 12:20 AM [facility] ANION GAP 5.6 2 - 10 MMOL/L 01/25/2025 12:20 AM [facility] BUN CREATININE RATIO 19.5 6 - 26 01/25/2025 12:20 AM [facility] A/G RATIO 1.2 1.0 - 2.0 RATIO 01/25/2025 12:20 AM [facility] GFR ESTIMATE >90 >90 ML/MIN/1.7 3 M2 01/25/2025 12:20 AM [facility] Comment: NOTE: eGFR is not calculated [...] Koko Johnson MD,PHD LABORATORY Final Resu lt [facility] [address] [place] [address], [place] [phone] * Qualitative HCG (01/24/2025 11:29 PM CDT) PREG SCREEN-SERUM NEGATIVE 01/25/2025 12:11 AM CDT [facility] 01/24/2025 11:2 9 PM CDT Koko Johnson MD,PHD LABORATORY Final Resu lt [facility] [address] [place] [address], [place] [phone] from Last 3 Months Insurance [employer] Advance Directives Documents on File Type Date Recorded Patient Lining Closer Expl anation Legal Documents 05/21/2023 3:56 PM Care Teams Flatbed Truck Driver Relationship Specialty Start Date End Date None, Provider, PCP - General UNKNOWN PHYSICIAN SPECIALTY 11/19/22
--- OUTSIDE RECORDS SUMMARY | 2025-03-15 20:32 | XMS_ITS | Encounter Summary ---
Author Organization [facility] Address [address] [place] [address] Care Team Providers Care Rivet Bucker Name Role Phone Unavailable Primary Care Provider Unavailabl e Encounter Details Date Type Department Care Team (Late st Contact Info) Description 12/18/2022 Lab Requisition [facility] - Pathology Lab [address] [place] [address] Ishan Escobedo MD [address] [facility] [address] [place] [phone] Generalized enlarged lymph nodes Social History [...] AM CDT) Case Report Flow Cytometry Case: [id number] Authorizing Provider: Ishan Escobedo MD Collected: 12/18/2022 09:00 AM Ordering Location: [facility] Care Pathology Lab Received: 12/18/2022 03:11 PM Pathologist: Giovanni Chow MD Specimen: Axillary Lymph Node, RIGHT 12/18/2022 5:15 PM CDT [facility] Final Diagnosis Axillary lymph node, flow cytometry: - [place] light chain restricted CD10+ B-cell population detected (~99% of overall events) 12/18/2022 5:15 PM CDT [facility] at 1714 CDT Flow Cytometry Interpretation Viability: 87%. B-cells: monoclonal, kappa-restricted, expressing CD19, CD20, and CD10. T-cells: not increased, no immunophenotypic aberrancy. A cytospin prepared from the flow cytometry specimen has been reviewed for software quality analyst purposes. 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 Histologic slides are pending for final subclassification. 12/18/2022 5:15 PM [facility] Flow Cytometry Results Differential Result Comment Flow Cell Count /uL 9,000 Total Viability % 87.0 Lymphocytes % 99 Dim CD45 Region % 0 Monocytes % 0 Granulocytes % 1 12/18/2022 5:15 PM [facility] Reason for test Generalized enlarged lymph nodes 785.6 12/18/2022 5:15 PM [facility] Client Specimen ID # [id number] 12/18/2022 5:15 PM [facility] Number of markers 16 were performed. A-2 Flow CD3 A-4 Flow CD10 A-6 Flow CD20 A-7 Flow CD23 A-12 Flow CD2 A-13 Flow CD4 A-16 Flow CD1a A-3 Flow CD5 A-5 Flow CD19 A-8 Flow CD34 A-9 Flow CD45 A-14 Flow CD7 A-15 Flow CD8 A-17 Flow CD30 A-10 [place]+CD19+ A-11 Lambda+CD19+ 12/18/2022 5:15 PM [facility] Pathologist Location at [facility] 12/18/2022 5:15 PM [facility] Disclaimer Test performed at [facility], [address] [place] [address], [phone]. *The established laboratory minimum viability is 70%. [...] Result [facility] [address] [phone] documented in this encounter Visit Diagnoses Diagnosis Generalized enlarged lymph nodes Enlargement of lymph nodes documented in this encounter
--- OUTSIDE RECORDS SUMMARY | 2025-03-15 20:32 | XMS_ITS | Clinical Summary ---
Author Organization [facility] Address [address] [facility] [place] [address] Care Team Providers Care Balance Staff Staker Name Role Phone Unavailable Primary Care Provider [...] Pain, Mild. Active naloxone (NARCAN) 4 mg/spray [place], Non-Aerosol EMERGENCY USE ONLY: Administer 1 spray [...] Encounters Date Type Department Care Team Description 2025 External Device Data [facility] ABSTRACTION Provider, Abstract [...] Comments Blood Pressure 109/66 04/17/2023 8:40 AM BARTENDER Pulse 111 04/17/2023 8:40 AM BARTENDER Temperature 36.6 C (97.9 F) 04/17/2023 8:40 AM BARTENDER Respiratory Rate 10 04/17/2023 8:40 AM BARTENDER Oxygen Saturation 92% 03/27/2023 11:06 AM BARTENDER Inhaled Oxygen Concentration - - Weight 51.3 kg (113 lb) 04/17/2023 8:40 AM BARTENDER Height 162.6 cm (5' 4) 03/24/2023 6:27 PM BARTENDER Body Mass Index 19.4 03/24/2023 6:27 PM BARTENDER Plan of Treatment Health Maintenance Due Date Last Done Comments HEPATITIS B VACCINES (1 of 3 - 19+ 3-dose series) 02/21/2011 HPV/Cotest (21-29) 02/21/2013 HPV/Cotest (30-65) 02/21/2022 INFLUENZA VACCINE (#1) 2024 04/10/2024, 2021 COVID-19 Vaccine (3 - 2024- season) 2024, 11/06/2020 Preventative Visit-Managed Medicaid 07/30/202507/29 CERVICAL CANCER SCREENING 07/30/2027 PAP SMEAR 07/30/2027 07/29/2024 DTAP/TDAP/TD VACCINES (3 - Td or Tdap) 02/07/2032, 11/05/2020 HPV VACCINES (No Doses Required) Completed Insurance [place] [facility] [employer] Advance Directives For more information, please contact: [phone] * Full Code (Latest Code Status on File) Date Activated Date Inactivated Comments 03/25/2023 1:09 AM 03/26/2023 3:29 PM
--- OUTSIDE RECORDS SUMMARY | 2025-03-15 20:32 | XMS_ITS | Clinical Summary ---
Author Organization [facility] Address [address] [place] [address] Care Team Providers Care Optometrist Assistant Name Role Phone Unavailable Primary Care Provider Unavailabl e Source Comments [facility],non-owned Affiliates and Associated Physician Practices is amultiple site organization consisting of ambulatory clinics and hospital sitesin [place], [place], [place] and [place]. This disclosure is being madepursuant to the Care Everywhere program and may not contain all information available regarding this patient. Last updated 17.[facility] Social History Tobacco Use Types Packs/Day Years [...] DEPRESSION SCREENING 04/07/2024 COVID-19 VACCINE (1 - 2024-2 6 season) 2024 INFLUENZA VACCINE (#1) 2024 ZOSTER [...] patient's age to complete this topic Insurance [facility]
--- OUTSIDE RECORDS SUMMARY | 2025-03-15 20:32 | XMS_ITS | Encounter Summary ---
Author Organization [facility] Address [address] [place] [address] Care Team Providers Care Stamps Or Coins Salesperson Name Role Phone Unavailable Primary Care Provider Unavailabl e Encounter Details Date Type Department Care Team (Late st Contact Info) Description 12/19/[address] [facility] - Pathology Lab [address] [place] [address] Ishan Escobedo MD [address] [phone] Illness, unspecified Social History Tobacco [...] CDT) Case Report Surgical Pathology Report Case: [id number] Authorizing Provider: Ishan Escobedo MD Collected: 12/18/2022 09:00 AM Ordering Location: [facility] Care Pathology Lab Received: 12/19/2022 [...] CD10 co-expression. Axillary lymph node, flow cytometry ([id number]): - [place] light chain restricted CD10+ B-cell population detected (~99% of overall events) Also received from [facility] is a peripheral smear showing circulating follicular lymphoma cells with occasional nuclear clefts. The peripheral blood is involved by follicular lymphoma. 12/19/2022 3:33 PM CDT [facility] Clinical History Suspect lymphoma. 12/19/2022 3:33 PM [facility] Materials Received Received are 4 slide(s) and 1 block labeled [id number] along with a copy of the outside pathology report. The materials originate from [facility], [address] [place] [address]. All original materials are returned to the referring institution, along with a copy of our final report. 12/19/2022 3:33 PM T [facility] Pathologist Location at [facility] 12/19/2022 3:33 PM T [facility] Disclaimer The performance characteristics of all immunohistochemical and indirect immunofluorescence stains (if any) cited in this report were determined by the Histopathology Laboratory of [facility]. Some of these tests were [...] pathologist. 12/19/2022 3:33 PM T [facility] Embedded Images 12/19/2022 3:33 PM T [facility] Pathology/Cytolo gy BIOPSY OF LYMPH NODE / Unknown 12/18/2022 9:00 AM CDT 12/19/2022 1:25 PM CDT us Ishan Escobedo MD LAB - PATHOLOGY/CYTOLOGY ORDERAB LES Final Result [facility] [address] [facility] [phone] documented in this encounter Visit Diagnoses Diagnosis Illness, unspecified documented in this encounter
[2025-03-15 20:54] VITALS: BP 135/65; PULSE 104; RESP 12; TEMP 36.6; O2SAT 98
--- NOTE | 2025-03-15 20:57 | ECG_ITS ---
Test Date: 2025-03-15 21:03:51 Measurements Intervals [place] Rate: 96 P: 57 TX: 136 QRS: 30 QRSD: 98 T: 29 QT: 367 QTc: 464 Interpretive Statements SINUS RHYTHM INCOMPLETE RIGHT BUNDLE BRANCH BLOCK BORDERLINE ST-T WAVE ABNORMALITY- ANTERIOR LEADS BASELINE ARTIFACT- I, II, AVR BORDERLINE ECG Compared to ECG 08/06/2024 10:44:52 NO SIGNIFICANT CHANGE Electronically Signed On 03-16-2025 06:18:56 SOLID WASTE ENGINEER by Law Sims D.O.
[2025-03-15 21:00] VITALS: BP 119/75; PULSE 94; RESP 14; O2SAT 96
--- NOTE | 2025-03-15 21:02 | CONSULT_PTH ---
PATIENT: Soha Marrero LOC: [facility] U#:[id number] AGE/SX: 35/F ROOM: RE03/15/[address]: Hermes Platt MD : 1990 BED: DIS: 03/15/2025 SPEC #: [id number] RECD: 03/15/25 21:34 STATUS: CECILE RE #: [id number] BRANDON: 03/15/25 21:[address]: Hermes Platt DEPT: [facility] Consult RECD BY: Gerhard Hodge MLT, ([facility]) ENTERED: 03/15/25 21:37 SP TYPE: Consult OTHR DR: Mando Bailey MD MACHINE REBUILDER PHYSICIAN Tissues: A - Peripheral Smear Procedures: Hematology Consult
[2025-03-15 21:08] LABS: Hematocrit 26.6 % (37.0-47.0); Hemoglobin 8.6 g/dL (12.0-15.0); Immature Granulocyte Percent A 0.2 % (0-0.5); Lymphocytes Absolute Auto 7.69 K/mm3 (0.9-3.2); Mean Corpuscular HGB Conc 32.3 g/dl (32-36); Mean Corpuscular Hemoglobin 31.4 pg (26-34); Mean Corpuscular Volume 97.1 fl (80-100); Nucleated Red Blood Cells Absolute Auto 0.000 K/mm3 (0.0-0.012); Nucleated Red Blood Cells Perc 0.0 % (0.0-0.2); Platelet Count Result 118 k/mm3 (150-375); Red Blood Count 2.74 M/mm3 (4.2-5.4); White Blood Count 9.0 K/mm3 (4.5-10.0)
--- NOTE | 2025-03-15 21:09 | ED_ITS ---
HPI - General Adult General Chief complaint: Recheck/Abnormal Lab/Rx Stated complaint: +2 BLE edema Time Seen by Provider: 03/15/25 20:49 History of Present Illness HPI narrative: 35-year-old female with history of lymphoma on chemotherapy presents to the emergency department for evaluation for lower extremity edema. Patient states she currently follows up with [facility] for her cancer treatment. patient states over the last 36 hours she has had worsening lower extremity edema. Patient denies any chest pain with this. Patient does report poorly controlled pain. Patient does take p.o. Percocet Related Data Home Medications ?Medication ?Instructions ?Recorded ?Confirmed ?Last Taken ?Type hydroxyzine HCl 25 mg tablet 25 mg PO TID 03/21/23 Unknown History methylprednisolone 4 mg tablets in mg 03/21/23 3 Unknown History a dose pack hydroxyzine HCl 25 mg tablet mg 09/30/23 Unknown Hist ory ibuprofen 600 mg tablet mg 09/30/23 Unknown History megestrol 400 mg/10 mL (40 mg/mL) mg 09/30/23 Unknown History oral suspension morphine 30 mg immediate release mg 09/30/23 Unknown History tablet ondansetron 4 mg disintegrating mg 09/30/23 Unknown H istory tablet pregabalin 50 mg capsule mg 09/30/23 Unknown History promethazine 25 mg rectal mg RECTAL 09/30/23 Unknown History suppository (Promethegan) valacyclovir 500 mg tablet mg 09/30/23 Unknown Histor y Allergies Allergy/AdvReac Type Severity Reaction Status Date / Time azithromycin AdvReac Nausea Verified 03/15/25 21:00 codeine AdvReac Vomiting Verified 03/15/25 21:00 diphenhydramine (From AdvReac Jittery Verified 03/15/25 21:00 Benadryl) pecan nut AdvReac Nausea and Verified 03/15/25 21:00 Vomiting Review of Systems 2 Review of Systems: All systems reviewed & are unremarkable except as noted in HPI and below PMFSH Past Medical History Medical History Lymphoma Drug-induced psychotic disorder Atypical bipolar disorder Anxiety MRSA infection buttock and leg during last lengthy incarceration (2020) Ectopic Methamphetamine abuse, episodic History of heroin use Surgical History Surgical History History of breast surgery 2018 or 2019, 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 L Side. History of salpingo-oophorectomy Social History Social History Social History: Currently living with boyfriend. Full Code. Surrogate decision maker - Isaiahkarson Beverly (step-dad), if unavailable then Marlene Carbone (mom). Smoking packs per day: 1 Smoking cigarettes per day: 20.0 Years smoked: 11 Smoking pack-years: 11.00 Smoking status: Current every day smoker Tobacco type: cigarettes Alcohol intake: current Drinks per week: 1 Alcohol use details: social Substance use: former Substance use type: marijuana Other substance usage details: QUIT USING EARLY DEC 2022 D/T DIAGNOSIS & SURGERY Last use: last use of heroin-September 2014 Lack of Transportation: No Lack of Food: Never True Current Housing: I Have Housing Concerned About Future Housing: No Difficulty Paying Gas/Electric Bills: No Difficulty Paying for Meds: No Currently Unemployed: No Education: High School Diploma/GED Difficulty w/ Childcare or Family Care: No Living arrangements: with friend(s) Additional living arrangements comments: boyfriend Spiritual care concerns: No Exam 2 Narrative: APPEARANCE: Well appearing, no pain, no distress, well-nourished. HEAD: normocephalic, atraumatic. EYES: PERRLA/EOMI, conjunctivae clear. NOSE: Normal no drainage EARS:TMS clear with good light reflex. NECK: Supple. RESPIRATORY: Airway patent, respirations nonlabored. Clear to auscultation bilaterally, no rales, rhonchi, wheezing. CARDIOVASCULAR: Regular rate and rhythm without murmurs rubs or gallops. ABDOMINAL: Soft, nontender, nondistended, normal bowel sounds MUSCULOSKELETAL: Moves all extremities. Bilateral lower extremity edema NEURO: Alert. Cranial nerves II through XII intact. Good gait. Good coordination SKIN: Warm, dry. Normal Color Course Vital Signs Vital signs: Vital Signs Temperature 97.9 F 03/15/25 20:54 Pulse Rate 104 H 03/15/25 20:54 Respiratory Rate 12 03/15/25 20:54 Blood Pressure 135/65 03/15/25 20:54 Pulse Oximetry 98 03/15/25 20:54 Oxygen Delivery Room Air 03/15/25 20:54 Temperature 97.9 F 03/15/25 20:54 Pulse Rate 83 03/15/25 22:15 Respiratory Rate 20 03/15/25 22:15 Blood Pressure 109/75 03/15/25 22:15 Pulse Oximetry 96 03/15/25 22:15 Oxygen Delivery Room Air 03/15/25 20:54 [facility] Narrative Medical decision making narrative: 35-year-old female history of lymphoma presents to the emergency department for evaluation for lower extremity swelling. Patient is currently afebrile with no leukocytosis hemoglobin of 8.6 which is not far from her recent baseline. Patient has a creatinine 0.64. Chest x-ray shows no acute cardiopulmonary abnormality. Patient was provided medications for pain control including IV Toradol and 0.5 mg IV Dilaudid. Patient was discharged home encouraged close follow-up with her oncologist. All questions concerns were addressed. Patient was well-appearing at time of discharge. Differential Diagnosis Differential Diagnosis: Hyponatremia, hyperkalemia, hyperlipidemia, CHF Lab Data [facility] Lab Attestation statement: I personally reviewed the patient's lab results. 03/15/25 21:02 03/15/25 21:02 Labs: Lab Results 03/15/25 Range/Units 21:02 WBC 9.0 (4.5-10.0) K/mm3 RBC 2.74 L (4.2-5.4) M/mm3 Hgb 8.6 L (12.0-15.0) g/dL Hct 26.6 L (37.0-47.0) % MCV 97.1 (80-100) fl MCH 31.4 (26-34) pg MCHC 32.3 (32-36) g/dl RDW 17.8 H (11.5-14.5) % Plt Count 118 L (150-375) k/mm3 MPV 9.0 (7.4-10.4) fl Immature Gran % (Auto) 0.2 (0-0.5) % Neut % (Auto) 9.6 L (45.5-73.1) % Lymph % (Auto) 85.9 H (18.3-44.2) % Brule % (Auto) 3.4 (2.6-8.5) % Eos % (Auto) 0.3 (0-4.4) % Baso % (Auto) 0.6 (0.2-1.2) % Lymph # (Auto) 7.69 H (0.9-3.2) K/mm3 Brule # (Auto) 0.3 (0.1-0.6) K/mm3 Eos # (Auto) 0.0 (0-0.3) K/mm3 Baso # (Auto) 0.1 (0.0-0.1) K/mm3 Abs Immat Gran (auto) 0.02 (0.00-0.031) K/mm3 Absolute Neuts (auto) 0.9 L (1.3-6.7) K/mm3 Absolute Nucleated RBC 0.000 (0.0-0.012) K/mm3 Band Neutrophils % Not Reportable Nucleated RBC % 0.0 (0.0-0.2) % Smudge Cells Few Platelet Estimate Decreased (Adequate) Anisocytosis 1+ Ovalocytes Occasional Schistocytes None seen PT 13.4 (11.1-14.7) Seconds INR 1.0 APTT 25.7 (22.3-36.8) Seconds Sodium 135 L (137-145) mmol/L Potassium 3.4 (3.4-5.0) mmol/L Chloride 102 (98-107) mmol/L Carbon Dioxide 28 (22-30) mmol/L Anion Gap 5 (4-12) mmol/L BUN 6 L D (7-17) mg/dL Creatinine 0.64 L (0.7-1.0) mg/dL Estim Creat Clear Calc 85 ml/min Estimated GFR > 60 (59 - ) Glucose 80 (65-110) mg/dL Lactic Acid 2.3 H (0.7-2.0) mmol/L Calcium 9.0 (8.4-10.2) mg/dL Total Bilirubin 0.4 (0.2-1.3) mg/dL AST 43 H (14-36) U/L ALT 28 (6-35) U/L Alkaline Phosphatase 155 H (38-126) U/L NT-Pro-B Natriuret Pep 218 H (19.9-100) pg/mL Total Protein 6.3 (6.3-8.2) g/dL Albumin 4.0 (3.5-5.1) g/dL Imaging Data Radiologist's impression: ITS Impressions Chest X-Ray 03/15/25 21:16 IMPRESSION: 1. No acute findings in the portable AP chest. Discharge Plan Discharge Clinical Impression: Bilateral edema of lower extremity Patient Disposition: Home Condition: Stable Instructions: Antibiotic Form Additional Instructions: have close follow-up with your physicians. If you have any worsening symptoms please call or return to the emergency department. Patient Language: Azeri Prescriptions: No Action oxycodone-acetaminophen [Percocet] 10-325 mg tablet 1 tablet PO Q4H PRN (Reason: pain) Qty: 5 0RF ondansetron 4 mg tablet,disintegrating 4 mg PO Q6H PRN (Reason: nausea and vomiting) Qty: 20 0RF hydroxyzine HCl 25 mg tablet 25 mg PO TID methylprednisolone 4 mg tablets,dose pack promethazine 25 mg suppository 25 mg RECTAL Q6H PRN (Reason: nausea and vomiting) Qty: 12 0RF ondansetron 4 mg tablet,disintegrating 4 mg PO Q8H PRN (Reason: nausea and vomiting) Qty: 30 0RF oxycodone-acetaminophen [Percocet] 10-325 mg tablet 1 tablet PO Q6H PRN (Reason: pain) Qty: 20 0RF ondansetron 4 mg tablet,disintegrating 4 mg PO Q8H PRN (Reason: nausea and vomiting) Qty: 10 0RF potassium chloride 20 mEq/15 mL liquid 20 meq PO DAILY 7 Days Qty: 105 0RF dicyclomine 10 mg capsule 10 mg PO BID PRN (Reason: abdominal pain) Qty: 20 0RF magnesium citrate Solution 150 ml PO DAILY PRN (Reason: constipation) Qty: 296 0RF psyllium husk [Metamucil] 0.4 gram capsule 0.4 g PO DAILY PRN (Reason: constipation) Qty: 30 0RF polyethylene glycol 3350 [Miralax] 17 gram/dose powder 17 g PO DAILY Qty: 119 0RF promethazine 25 mg suppository 25 mg RECTAL Q6H PRN (Reason: nausea and vomiting) Qty: 12 0RF megestrol 400 mg/10 mL (40 mg/mL) suspension promethazine [Promethegan] 25 mg suppository RECTAL valacyclovir 500 mg tablet morphine 30 mg tablet hydroxyzine HCl 25 mg tablet ibuprofen 600 mg tablet ondansetron 4 mg tablet,disintegrating pregabalin 50 mg capsule phenazopyridine [Pyridium] 200 mg tablet 200 mg PO TID Qty: 6 0RF amoxicillin-pot clavulanate 875-125 mg tablet 1 tablet PO Q12H Qty: 14 0RF Follow-up/Referrals: PHYSICIAN,LOGISTICS PROJECT MANAGER [Primary Care Provider, Internal Medicine]
[2025-03-15 21:19] LABS: INR 1.0; Prothrombin Time 13.4 Seconds (11.1-14.7)
[2025-03-15 21:20] LABS: Partial Thromboplastin Time 25.7 Seconds (22.3-36.8)
[2025-03-15 21:25] LABS: Alanine Aminotransferase 28 U/L (6-35); Albumin Level 4.0 g/dL (3.5-5.1); Alkaline Phosphatase 155 U/L (38-126); Anion Gap 5 mmol/L (4-12); Anisocytosis 1+; Aspartate Amino Transferase 43 U/L (14-36); Bilirubin,Total 0.4 mg/dL (0.2-1.3); Blood Urea Nitrogen 6 mg/dL (7-17); Calcium 9.0 mg/dL (8.4-10.2); Carbon Dioxide 28 mmol/L (22-30); Chloride 102 mmol/L (98-107); Estimated CRCL calculation 85 ml/min; Estimated Glomerular Filt Rate > 60; Glucose 80 mg/dL (65-110); Ovalocytes Occasional; Potassium 3.4 mmol/L (3.4-5.0); Schistocytes None Seen; Smudge Cells FEW; Sodium 135 mmol/L (137-145); Total Protein 6.3 g/dL (6.3-8.2)
[2025-03-15 21:30] VITALS: BP 101/61; PULSE 92; RESP 20; O2SAT 96
[2025-03-15 21:33] LABS: NT Pro B Type Natriuretic Pept 218 pg/mL (19.9-100)
[2025-03-15 21:45] VITALS: BP 105/58; PULSE 96; RESP 20; O2SAT 94
[2025-03-15 22:15] VITALS: BP 109/75; PULSE 83; RESP 20; O2SAT 96
[2025-03-15] MEDS: KETOROLAC 30 MG/ML VIAL (*BKC) IV PUSH (22:33)
[2025-03-15] MEDS: HYDROmorphone HCL INJ (*CRX) 1 MG/ML SYR 0.5 MG IV PUSH (22:33)
== END 2025-03-15 22:55 | disposition home or self-care (01) ==
PROVIDERS: Emergency Provider Emergency Medicine
DX: R60.0 Localized edema (principal); C85.90 Non-Hodgkin lymphoma, unspecified, unspecified site; F17.210 Nicotine dependence, cigarettes, uncomplicated; Z86.14 Personal history of Methicillin resistant Staphylococcus aureus infection; Z90.79 Acquired absence of other genital organ(s); Z79.60 Long term (current) use of unspecified immunomodulators and immunosuppressants; I45.10 Unspecified right bundle-branch block; R94.31 Abnormal electrocardiogram [ECG] [EKG]; X50.9XXA Other and unspecified overexertion or strenuous movements or postures, initial encounter
CPT/HCPCS: 36415; 71045; 80053; 83605; 83880; 85025; 85610; 85730; 93005; 96374; 96375; 99284; J1171; J1885

== ENCOUNTER 2025-03-15 23:00 | Emergency (ER) | payer OTHER, SELFPAY | END 2025-03-16 00:56 | disposition left against medical advice (07) | DX: M79.605 Pain in left leg (principal); M79.604 Pain in right leg | CPT/HCPCS: 99199 ==

== ENCOUNTER 2025-03-25 15:45 | Emergency (ER) | payer OTHER, SELFPAY ==
--- OUTSIDE RECORDS SUMMARY | 2024-10-11 14:40 | XMS_ITS ---
Author Organization [facility] Address [address] [place] [address] Phone [phone] Care Team Providers Care Care Transition Manager Name Role Phone Satya Fernandez Primary Care Provider [phone] REASON FOR VISIT 2 Week F/U Social History Sex Observation Social History Observation Description Sex Observation Female Sexual Orientation Social History Observation Description Sexual Orientation Straight or heterose xual Gender Identity Social History Observation Description Gender Identity Female Encounters Date Time Type Facility Location Provider Diagnosis 10/11/2024 02:40 PM Office Visit [facility] [place] [place] [address] Satya Fernandez Plan Of Treatment Next Appt Details Provider Name:Satya Fernandez , 03/28/2025 10:40:00 AM, [place] [address] [place], [address], Medical (General) History Medical History History ICD Code Bipolar 1 Disorder Alcohol Use Disorder Lymphoma Surgical History Surgery Date(Month/Year) Ectopic Open Chest Surgery Chemo Port 2022 Hospitalization History Reason Date(Month/Year) Kettler x2 Progress Notes * Soha MARRERO RDOB:[birth year] (35 yo F)Acc No.[id number]:10/11/2024 UNLOCKED PROGRESS NOTE Progress Notes Patient: Soha LLOYD Provider: Devin Fernandez :1990 A ge:34 Y S ex:Female Date:10/11/2024 Address:[address] [place], [place] [address] Subjective: * Chief Complaints: * 1 . 2 Week F/U. * Screening: * * Medical History: Objective: * Vitals: Assessment: Plan: * Treatment: * * Electronic signature of Kar Fernandez , [id number] on 03/25/2025 at 03:48 PM INSERTING OPERATOR Sign off status: Pending * Provider: Devin Fernandez Date: 0 10/11/2024 Generated for Cassie valero/Claire/Mervat on: 1 05/26/2024 03:48 PM INSERTING OPERATOR
--- OUTSIDE RECORDS SUMMARY | 2025-03-24 22:46 | XMS_ITS | Encounter Summary ---
Author Organization [facility] Healthcare Address [address] [place] [address] Care Team Providers Care [employer] Representative Name Role Phone Ramy Aguilera MD Unavailable [phone] Satya Fernandez MD Primary Care Provider [phone] Reason for Visit * Reason Comments Flu Symptoms Encounter Details Date Type Department Care Team (Late st Contact Info) Description 03/24/2025 10:46 PM RESOURCE SPECIALIST - 03/24/2025 10:51 PM RESOURCE SPECIALIST Emergency [facility] Emergency Department [address] [place] [address] Discharge Disposition: Left without being seen Social History Tobacco Use Types Packs/Day Years [...] making you feel afraid or unsafe? Denies 03/24/2025 Comments No Sex and Gender Information Value Date Recorded Sex Assigned at Not on file Legal Sex Female 6:50 AM CDT Gender Identity Not on file Sexual Orientation Not on file documented as of this encounter Last Filed Vital Signs Vital Sign Reading Time Taken Comments Blood Pressure 106/65 03/24/2025 3:40 PM RESOURCE SPECIALIST Pulse 123 03/24/2025 3:40 PM RESOURCE SPECIALIST Temperature 37.9 C (100.3 F) 03/24/2025 3:40 PM RESOURCE SPECIALIST Respiratory Rate 17 03/24/2025 3:40 PM RESOURCE SPECIALIST Oxygen Saturation 95% 03/24/2025 3:40 PM RESOURCE SPECIALIST Inhaled Oxygen Concentration - - Weight 49.9 kg (110 lb) 03/24/2025 3:40 PM RESOURCE SPECIALIST Height 160 cm (5' 3) 03/24/2025 3:40 PM RESOURCE SPECIALIST Body Mass Index 19.49 03/24/2025 3:40 PM RESOURCE SPECIALIST documented in this encounter Functional Status * Fall Risk Assessment Tool - MEDFRAT Question Answer Date of Assessment Author Prior Fall Event (Carlos quiroz from EMR) None found 03/24/2025 3:46 PM RESOURCE SPECIALIST Leila Tristan. Pt needs supervision/assista nce with ambulation? (makes patient High risk) No 03/24/2025 3:46 PM RESOURCE SPECIALIST Leila Tristan History of falling in last 3 months, including since admission 3 03/24/2025 3:46 PM RESOURCE SPECIALIST Leila Lee Confusion or disorientation 0 03/24/2025 3: 46 PM RESOURCE SPECIALIST Leila Tristan Intoxicated or sedated 0 03/24/2025 3:46 PM RESOURCE SPECIALIST Leila Tristan. Impaired gait 0 03/24/2025 3:46 PM RESOURCE SPECIALIST Leila Leon am Mobility assist device used 0 03/24/2025 3: 46 PM RESOURCE SPECIALIST Leila Tristan Altered elimination 0 03/24/2025 3:46 PM CS T Leila Tristan Fall risk score: (1-2 low ri sk), (3-4 moderate risk), (5 or more high risk) 3 03/24/2025 3:46 PM RESOURCE SPECIALIST Leila Tristan documented as of this encounter Medications at Time of Discharge acetaminophen (TYLENOL) 500 mg tablet Take 1 tablet (500 mg total) by mouth every 6 (six) hours as needed for pain acetaminophen (TYLENOL) 650 mg suppository Insert 1 suppository (650 mg total) into the rectum every 4 (four) hours as needed for pain acyclovir (ZOVIRAX) 200 mg capsuleIndications: Skin/Soft Tissue Infection Take 2 capsules (400 mg total) by mouth 2 (two) times a day 120 capsule 01/13/2025 buprenorphine-nalox one (SUBOXONE) 8-[address] 1 Film under the tongue daily 2 Film 12/18/2023 ibuprofen (ADVIL,MOTRIN) 400 mg tablet Take 1 tablet (400 mg total) by mouth every 6 (six) hours as needed for pain L. acidophilus-dig enz cmb 5 5-250 mg capsule Take by mouth naloxone (NARCAN) 4 mg/actuation spray,non-aerosol Administer 1 spray into affected nostril(s) as needed for opioid reversal Call 911. Administer a single spray in one nostril. Repeat every 3 minutes as needed if no or minimal response. 1 each 09/24/2024 omeprazole OTC (PriLOSEC OTC) 20 mg EC tablet Take 1 tablet (20 mg total) by mouth daily 30 tablet 2 09/30/2024 03/29/20 25 ondansetron ODT (ZOFRAN-ODT) 4 mg disintegrating tablet Take 2 tablets (8 mg total) by mouth every 8 (eight) hours as needed for nausea or vomiting 30 tablet 02/23/2025 03/25/20 25 oxyCODONE (ROXICODONE) 5 mg immediate release tabletIndications:P ain Take 1 tablet (5 mg total) by mouth every 6 (six) hours as needed for pain 28 tablet 09/24/2024 predniSONE (DELTASONE) 50 mg tabletIndications:F ollicular lymphoma, unspecified follicular lymphoma type, unspecified body region (HCC) Take 1 tablet (50 mg) by mouth daily Take on days 2-6 of each treatment cycle. 5 tablet 10/07/2024 predniSONE (DELTASONE) 50 mg tabletIndications:F ollicular lymphoma, unspecified follicular lymphoma type, unspecified body region (HCC) Take 2 tablets (100 mg) by mouth daily Take on days 1-5 of each treatment cycle. 10 tablet 10/28/2024 predniSONE (DELTASONE) 50 mg tabletIndications:F ollicular lymphoma, unspecified follicular lymphoma type, unspecified body region (HCC) Take 2 tablets (100 mg) by mouth daily Take on days 2-6 of each treatment cycle. 10 tablet 11/18/2024 predniSONE (DELTASONE) 50 mg tabletIndications:F ollicular lymphoma, unspecified follicular lymphoma type, unspecified body region (HCC),Prevention of chemotherapy-induce d neutropenia Take 2 tablets (100 mg) by mouth daily Take on days 2-6 of each treatment cycle. 10 tablet 12/23/2024 predniSONE (DELTASONE) 50 mg tabletIndications:F ollicular lymphoma, unspecified follicular lymphoma type, unspecified body region (HCC),Prevention of chemotherapy-induce d neutropenia Take 2 tablets (100 mg) by mouth daily Take on days 2-6 of each treatment cycle. 10 tablet 01/13/2025 predniSONE (DELTASONE) 50 mg tabletIndications:F ollicular lymphoma, unspecified follicular lymphoma type, unspecified body region (HCC),Prevention of chemotherapy-induce d neutropenia Take 2 tablets (100 mg) by mouth daily Take on days 2-6 of each treatment cycle. 10 tablet 02/10/2025 predniSONE (DELTASONE) 50 mg tabletIndications:F ollicular lymphoma, unspecified follicular lymphoma type, unspecified body region (HCC),Prevention of chemotherapy-induce d neutropenia Take 2 tablets (100 mg) by mouth daily Take on days 2-6 of each treatment cycle. 10 tablet 03/17/2025 sertraline (ZOLOFT) 50 mg tablet Take 1 tablet (50 mg total) by mouth daily 30 tablet 09/25/2024 documented as of this encounter Discharge Disposition Disposition Code Departure Means Destination Comment s Left without being seen documented in this encounter ED Notes * Leila Tristan - 03/24/2025 3:41 PM CST PT from home with C/O mid sternal CP, N/V, abdominal pain, fever and chills for a few days. PT voice that she got chemo around 7 days ago and have not been well since. H/O Lymphoma. PT is A/O,VSS, noobvious distress noted. URCE SPECIALIST documented in this encounter Miscellaneous Notes * ED Procedure Note - Elder Jones MD - 03/24/2025 4:05 PM CSTAssociated Order(s): ECG 12 lead Procedure ECG 12 lead Date/Time: 03/24/2025 4:05 PM Performed by: Elder Jones MD Authorized by: Allan Arana MD Rate: ECG rate assessment comment: 119, sinus tachycardia, normal axis, normal intervals, nsstc Elder Jones MD 03/24/25 1605 URCE SPECIALIST documented in this encounter Plan of Treatment Not on file documented as of this encounter Procedures Procedure Name Priority Date/Time Associated Diagnosis Comments XR CHEST PA LATERAL 2 VIEWS ED 03/24/2025 5:22 PM RESOURCE SPECIALIST ECG 12-LEAD STAT 03/24/2025 4:05 PM RESOURCE SPECIALIST documented in this encounter Results * XR Chest PA Lateral 2 Views (If patient hemodynamically stable and ambulatory) (03/24/2025 5:22 PM RESOURCE SPECIALIST) Anatomical Region Laterality Modality Body, Chest N/A Computed Radiogr aphy 03/24/2025 6:00 PM RESOURCE SPECIALIST Impressions 03/24/2025 6:24 PM RESOURCE SPECIALIST There are no prior chest radiographs for comparison. No pulmonary consolidation, pleural effusion or pneumothorax. Normal cardiomediastinal silhouette. Dictated by: Saúl Sigala M.D. The radiology attending physician has personally reviewed this study, and had reviewed and/or edited this written report and agrees with it. Electronically signed by: Cesilia Winston MD Narrative 03/24/2025 6:24 PM RESOURCE SPECIALIST EXAMINATION: 2 view chest radiograph Procedure Note Cesilia Winston MD - 03/24/2025 EXAMINATION: 2 view chest radiograph IMPRESSION: There are no prior chest radiographs for comparison. No pulmonary consolidation, pleural effusion or pneumothorax. Normal cardiomediastinal silhouette. Dictated by: Saúl Sigala M.D. The radiology attending physician has personally reviewed this study, and had reviewed and/or edited this written report and agrees with it. Electronically signed by: Cesilia Winston MD us Allan Arana MD IMG XR PROCEDURES Frances l Result * ECG 12-LEAD (03/24/2025 4:05 PM RESOURCE SPECIALIST) Narrative [facility] - 03/24/2025 4:05 PM RESOURCE SPECIALIST Elder Jones MD 03/24/2025 4:05 PM ECG 12 lead Date/Time: 03/24/2025 4:05 PM Performed by: Elder Jones MD Authorized by: Allan Arana MD Rate: ECG rate assessment comment: 119, sinus tachycardia, normal axis, normal intervals, nsstc us Allan Arana MD ECG ORDERABLES Final Result [facility] documented in this encounter Visit Diagnoses Not on filedocumented in this encounter Administered Medications Inactive Administered Medications - up to 3 most recent administrations Medication Order MAR Action Action Date Dose Rate Site acetaminophen (TYLENOL) tablet 650 mg 650 mg, oral, Once, On Caryn 03/24/25 at 1549, For 1 dose Given 03/24/2025 3:51 PM RESOURCE SPECIALIST 650 mg documented in this encounter Active and Recently Administered Medications Times are shown in RESOURCE SPECIALIST. Scheduled Medication Order 03/22/2025 03/23/2025 03/24/2025 acetaminophen (TYLENOL) tablet 650 mg (COMPLETED) 650 mg, oral, Once, On Caryn 03/24/25 at 1549, For 1 dose 1551 (Given - Provid er: Leila Tristan) documented in this encounter Orders Medications Ordered That Nick ht Not Have Been Administered Count Last Ordered Date First Ordered Date acetaminophen (TYLENOL) tablet 650 mg 1 documented in this encounter Additional Health Concerns Infection Onset Date Last Indicated Resolved Time C. difficile 11/18/2024 11/18/2024 documented as of this encounter Care Teams Players [employer] Representative Relationship Specialty Start Date End Date Satya Fernandez MD [address] [place] [address] PCP - General Internal Medicine 10/21/24 Ramy Aguilera MD [address] [place] [address] Medical Oncologist/Hand [facility] Internal Medicine 09/23/24 documented as of this encounter
--- OUTSIDE RECORDS SUMMARY | 2025-03-24 22:46 | XMS_ITS | Encounter Summary ---
Author Organization [facility] Healthcare Address [address] [place] [address] Care Team Providers Care Vault Service Mechanic Name Role Phone Ramy Aguilera MD Unavailable [phone] Satya Fernandez MD Primary Care Provider Reason for Visit * Reason Comments Flu Symptoms Encounter Details Date Type Department Care Team (Late st Contact Info) Description 03/24/2025 10:46 PM WORKERS COMPENSATION EXAMINER - 03/24/2025 10:51 PM WORKERS COMPENSATION EXAMINER Emergency [facility] Emergency Department [address] [place] [address] Discharge Disposition: Left without being seen Social [...] Comments Blood Pressure 106/65 03/24/2025 3:40 PM WORKERS COMPENSATION EXAMINER Pulse 123 03/24/2025 3:40 PM WORKERS COMPENSATION EXAMINER Temperature 37.9 C (100.3 F) 03/24/2025 3:40 PM WORKERS COMPENSATION EXAMINER Respiratory Rate 17 03/24/2025 3:40 PM WORKERS COMPENSATION EXAMINER Oxygen Saturation 95% 03/24/2025 3:40 PM WORKERS COMPENSATION EXAMINER Inhaled Oxygen Concentration - - Weight 49.9 kg (110 lb) 03/24/2025 3:40 PM WORKERS COMPENSATION EXAMINER Height 160 cm (5' 3) 03/24/2025 3:40 PM WORKERS COMPENSATION EXAMINER Body Mass Index 19.49 03/24/2025 3:40 PM WORKERS COMPENSATION EXAMINER documented in this encounter Functional Status * Fall Risk Assessment Tool - MEDFRAT Question Answer Date of Assessment Author Prior Fall Event (Carlos quiroz from EMR) None found 03/24/2025 3:46 PM WORKERS COMPENSATION EXAMINER Leila Tristan. Pt needs supervision/assista nce with ambulation? (makes patient High risk) No 03/24/2025 3:46 PM WORKERS COMPENSATION EXAMINER Leila Tristan History of falling in last 3 months, including since admission 3 03/24/2025 3:46 PM WORKERS COMPENSATION EXAMINER Leila Lee Confusion or disorientation 0 03/24/2025 3: 46 PM WORKERS COMPENSATION EXAMINER Leila Tristan Intoxicated or sedated 0 03/24/2025 3:46 PM WORKERS COMPENSATION EXAMINER Leila Tristan. Impaired gait 0 03/24/2025 3:46 PM WORKERS COMPENSATION EXAMINER Leila Leon am Mobility assist device used 0 03/24/2025 3: 46 PM WORKERS COMPENSATION EXAMINER Leila Tristan Altered elimination 0 03/24/2025 3:46 PM CS T Leila Tristan Fall risk score: (1-2 low ri sk), (3-4 moderate risk), (5 or more high risk) 3 03/24/2025 3:46 PM WORKERS COMPENSATION EXAMINER Leila Tristan documented as of this encounter [...] Lymphoma. PT is A/O,VSS, noobvious distress noted. ERS COMPENSATION EXAMINER documented in this encounter Miscellaneous Notes * ED Procedure Note - Elder Jones MD - 03/24/2025 4:05 PM CSTAssociated Order(s): ECG 12 lead Procedure ECG 12 lead Date/Time: 03/24/2025 4:05 PM Performed by: Elder Jones MD Authorized by: Allan Arana MD Rate: ECG rate assessment comment: 119, sinus tachycardia, normal axis, normal intervals, nsstc Elder Jones MD 03/24/25 1605 ERS COMPENSATION EXAMINER documented in this encounter Plan of Treatment Not on file documented as of this encounter Procedures Procedure Name Priority Date/Time Associated Diagnosis Comments XR CHEST PA LATERAL 2 VIEWS ED 03/24/2025 5:22 PM WORKERS COMPENSATION EXAMINER ECG 12-LEAD STAT 03/24/2025 4:05 PM WORKERS COMPENSATION EXAMINER documented in this encounter Results * XR Chest PA Lateral 2 Views (If patient hemodynamically stable and ambulatory) (03/24/2025 5:22 PM WORKERS COMPENSATION EXAMINER) Anatomical Region Laterality Modality Body, Chest N/A Computed Radiogr aphy 03/24/2025 6:00 PM WORKERS COMPENSATION EXAMINER Impressions 03/24/2025 6:24 PM WORKERS COMPENSATION EXAMINER There are no prior chest radiographs for comparison. No pulmonary consolidation, pleural effusion or pneumothorax. Normal cardiomediastinal silhouette. Dictated by: Saúl Sigala M.D. The radiology attending physician has personally reviewed this study, and had reviewed and/or edited this written report and agrees with it. Electronically signed by: Cesilia Winston MD Narrative 03/24/2025 6:24 PM WORKERS COMPENSATION EXAMINER EXAMINATION: 2 view chest radiograph Procedure Note [...] Result * ECG 12-LEAD (03/24/2025 4:05 PM WORKERS COMPENSATION EXAMINER) Narrative [facility] - 03/24/2025 4:05 PM WORKERS COMPENSATION EXAMINER Elder Jones MD 03/24/2025 4:05 PM ECG 12 lead Date/Time: 03/24/2025 4:05 PM Performed by: Elder Jones MD Authorized by: Allan Arana MD Rate: ECG rate assessment comment: 119, sinus tachycardia, normal axis, normal intervals, nsstc us Allan Arana MD ECG ORDERABLES Final Result [facility] documented in this encounter Visit Diagnoses Not on filedocumented in this encounter Administered Medications Inactive Administered Medications - up to 3 most recent administrations Medication Order MAR Action Action Date Dose Rate Site acetaminophen (TYLENOL) tablet 650 mg 650 mg, oral, Once, On Caryn 03/24/25 at 1549, For 1 dose Given 03/24/2025 3:51 PM WORKERS COMPENSATION EXAMINER 650 mg documented in this encounter Active and Recently Administered Medications Times are shown in WORKERS COMPENSATION EXAMINER. Scheduled Medication Order 03/22/2025 03/23/2025 03/24/2025 acetaminophen [...] documented as of this encounter Care Teams Vault Service Mechanic Relationship Specialty Start Date End Date Satya Fernandez MD [address] [place] [address] PCP - General Internal Medicine 10/21/24 Ramy Aguilera MD [address] [place] [address] Medical Oncologist/Hull Sorter Internal Medicine 09/23/24 documented as of this encounter
--- NOTE | ~2025-03-25 | XR_ITS ---
EXAMINATION: XR chest 2V, 03/25/2025 16:27 JAVA PROGRAMMER ANALYST HISTORY: cough/congestion COMPARISON: No comparisons available. Technique: 2 views obtained. Findings: The lungs are clear, no effusion. No pneumothorax. Heart is normal size. Mediastinal and hilar contours are within normal limits. Bony thorax no acute abnormality. Impression: No acute cardiopulmonary abnormality. Reviewed, dictated and finalized at location P. PROGRAMMER ANALYST Impression: No acute cardiopulmonary abnormality.
--- OUTSIDE RECORDS SUMMARY | 2025-03-25 15:48 | XMS_ITS ---
Author Organization [facility] [address] [facility] Address [address] [place] [address] Care Team Providers Care Fluorescent Solution Mixer Name Role Phone Ramy Aguilera MD Unavailable [phone] Satya Fernandez MD Primary Care Provider [phone] Active Problems Problem Noted Date Diagnosed Date [...] - Plan to discharge patient with outpatient [facility] follow-up on 09/30/24. Assessment & [...] - Plan to discharge patient with outpatient [facility] follow-up on 09/30/24. Assessment & [...] Medications Current Day (Day 1 , Cycle 5 CHOP - Planned for 04/14/2025) Next Day (Day 1, Cycle 6 [facility]OP - Planned for 05/05/2025) cycloPHOSphamide (CYTOXAN)cycloPHOSphamide IVPB in 250 mL (vial [...] Dose Automatic Entry Manual Entr y doxorubicin 191.53 mg/m2 (295.2 mg) 191.53 mg/m2 (295.2 mg) 0 mg/m2 (0 mg) cyclophosphamide 2,867.24 mg/m2 (4,420 mg) 2,867.24 mg/m2 (4,420 mg) 0 mg/m2 (0 mg) doxorubicin isotoxic equivalent (Please manually verify calculation) 191.53 mg/m2 (295.2 mg) 191.53 mg/m2 (295.2 mg) 0 mg/m2 (0 mg)
--- OUTSIDE RECORDS SUMMARY | 2025-03-25 15:48 | XMS_ITS ---
Author Organization [facility] Address [address] [place] [address] Phone Care Team Providers Care Production Machine Computer Operator Name Role Phone Gabriel Salmeron MD Unavailable [phone] Brooks Sosa MD Unavailable Provider, None Primary [...]
--- OUTSIDE RECORDS SUMMARY | 2025-03-25 15:48 | XMS_ITS ---
Author Organization [facility] Address [address] [place] [address] Phone Care Team Providers Care Asw/Asuw Tactical Air Controller Name Role Phone Gabriel Salmeron MD Unavailable [phone] Brooks Sosa MD Unavailable [phone] Provider, None Primary Care Provider UnavailKervin Rubi MD Unavailable [facility] Status:Enrolled (Active) Program category:Social Drivers of Health/Community Resource Coordination Start date:05/05/2024 Enrollment date:05/05/2024 Related social drivers of health:Social Connections, Tobacco Use, Depression, Stress, Physical Activity, Utilities Continued Care and Services Coordination
--- OUTSIDE RECORDS SUMMARY | 2025-03-25 15:48 | XMS_ITS | Clinical Summary ---
Author Organization [facility] Address [address] [place] [address] Phone Care Team Providers Care Supervisor Production Department Name Role Phone Gabriel Salmeron MD Unavailable Brooks Sosa MD Unavailable Provider, None Primary Care Provider UnavailKervin Rubi MD Unavailable [phone] Allergies Active Allergy Reactions Criticality Noted Date [...] current use Anxiety 05/07/2023 Under care of long-term service 05/07/2023 Overview (05/07/2023): Two previous stays at long-term Child living with her parents Resolved Problems Problem Noted Date Diagnosed Date Resolved Date LRTI (lower respiratory tract infection) 09/09/2023 11/26/2023 Lymphoma 05/07/2023 10/29/2023 Overview (05/21/2023): Resistant to care No show ONC Refusing hospice 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/21/2023): Current cannabis; 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 Encounters Date Type Department Care Team Description 02/21/2025 Refill [facility] Oncology Services [address] [place] [address] Gabriel Salmeron MD Medication Refill [...] Date Smoking Tobacco: Every Day Cigarettes 1 15 Started: 04/07/2010 Passive Smoke Exposure: Current Smokeless Tobacco: Never Tobacco Cessation:Ready to Q uit: Yes; Counseling Given: Yes Alcohol Use Standard Drinks/Week Comments Yes 2 (1 standard drink = 0.6 oz pur e alcohol) occasional C Utilities Answer Date Recorded In the past 12 months has [employer], gas, oil, or water Fundology threatened to shut off services in your home? Yes 05/07/2023 Social Connection and Isolation Panel Answer Date Recorded In a typical week, how many times do you talk on the phone with family, friends, or neighbors? Once a week 05/07/2023 How often do you get together with friends or re latives? Once a week 05/07/2023 How often do you attend congregational or jainism serv ices? Never 05/07/2023 Do you belong to any clubs o r organizations such as congregational groups, unions, fraternal or athletic groups, or [...] Total Score - Questions 1-9 9 06/06 [facility] Occupat ional Health - Occupational Stress [...] place to sleep or slept in a fdc (including now)? No 05/07/2023 Sexually Active Control Partners Comments Yes Male Comments Unknown Sex and Gender Information Value Date Recorded Sex Assigned at Female 05/21/2023 11:44 AM VIRTUALIZATION ARCHITECT Legal Sex Female 5:17 PM CDT Gender Identity Female 05/21/2023 11:44 AM VIRTUALIZATION ARCHITECT Sexual Orientation Not on file Last Filed [...] series) 02/21/2067 DTaP/Tdap/Td Immunization Discontinued 2021, 11/05/2020 Human Papillomavirus (HPV) Immunization (No Doses Required) Completed Meningococcal Immunization (ACWY) Aged Out No longer [...] change(07/29 4:12 PM CDT) Yes Janette Tom, LAND LAW EXAMINER Note: Goal/Objective: Improve insight and understanding of behaviors and feelings. Anticipated Time Frame for Goal Completion: 6 months Goal Reviewed with: patient Readiness to change: Ready to change Department associated with goal: [facility] Steps to [...] a triggering event occurs Insurance MEDICAID [facility] Care Teams Supervisor Production Department Relationship Specialty Start Date End Date Provider, None [place] PCP - General 06/17/24 Gabriel Salmeron MD [address] [place] [address] Consulting Physician Medical Oncology 05/23/23 Brooks Sosa MD [address] [place] [phone] Consulting Physician Neurology 01/22/24 Kervin Jiang MD [address] [phone] Consulting Physician General Surgery 06/11/24
--- OUTSIDE RECORDS SUMMARY | 2025-03-25 15:49 | XMS_ITS | Encounter Summary ---
Author Organization [facility] Address [address] [place] [address] Care Team Providers Care Airplane First Officer Name Role Phone Unavailable Primary Care Provider Unavailabl e Encounter Details Date Type Department Care Team (Late st Contact Info) Description 12/18/2022 Lab Requisition [facility] - Pathology Lab [address] [place] [address] Ishan Escobedo MD [address] [facility] [address] [place] [phone] Generalized enlarged lymph nodes Social History [...] AM CDT) Case Report Flow Cytometry Case: [id number] Authorizing Provider: Ishan Escobedo MD Collected: 12/18/2022 09:00 AM Ordering Location: [facility] Care Pathology Lab Received: 12/18/2022 03:11 PM Pathologist: Giovanni Chow MD Specimen: Axillary Lymph Node, RIGHT 12/18/2022 5:15 PM CDT [facility] Final Diagnosis Axillary lymph node, flow cytometry: - [place] light chain restricted CD10+ B-cell population detected (~99% of overall events) 12/18/2022 5:15 PM CDT [facility] at 1714 CDT Flow Cytometry Interpretation Viability: 87%. B-cells: monoclonal, kappa-restricted, expressing CD19, CD20, and CD10. T-cells: not increased, no immunophenotypic aberrancy. A cytospin prepared from the flow cytometry specimen has been reviewed for billing and quality technician purposes. 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 Histologic slides are pending for final subclassification. 12/18/2022 5:15 PM [facility] Flow Cytometry Results Differential Result Comment Flow Cell Count /uL 9,000 Total Viability % 87.0 Lymphocytes % 99 Dim CD45 Region % 0 Monocytes % 0 Granulocytes % 1 12/18/2022 5:15 PM [facility] Reason for test Generalized enlarged lymph nodes 785.6 12/18/2022 5:15 PM [facility] Client Specimen ID # [id number] 12/18/2022 5:15 PM [facility] Number of markers 16 were performed. A-2 Flow CD3 A-4 Flow CD10 A-6 Flow CD20 A-7 Flow CD23 A-12 Flow CD2 A-13 Flow CD4 A-16 Flow CD1a A-3 Flow CD5 A-5 Flow CD19 A-8 Flow CD34 A-9 Flow CD45 A-14 Flow CD7 A-15 Flow CD8 A-17 Flow CD30 A-10 [place]+CD19+ A-11 Lambda+CD19+ 12/18/2022 5:15 PM [facility] Pathologist Location at [facility] 12/18/2022 5:15 PM [facility] Disclaimer Test performed at [facility], [address] [place] [address], [address]. *The established laboratory minimum viability is 70%. [...] PATHOLOGY LAB Embedded Images 5:15 PM CDT [facility] Pathology/Cytolo gy AXILLARY LYMPH NODE STRUCTURE / Unknown 12/18/2022 9:00 AM CDT 12/18/2022 3:11 PM CDT us Ishan Escobedo MD LAB - PATHOLOGY/CYTOLOGY ORDERAB LES Final Result [facility] [address] [phone] documented in this encounter Visit Diagnoses Diagnosis Generalized enlarged lymph nodes Enlargement of lymph nodes documented in this encounter
--- OUTSIDE RECORDS SUMMARY | 2025-03-25 15:49 | XMS_ITS | Encounter Summary ---
Author Organization [facility] Address [address] [place] [address] Phone Care Team Providers Care Software Quality Assurance Analyst Name Role Phone Gabriel Salmeron MD Unavailable [phone] Brooks Sosa MD Unavailable Provider, None Primary Care Provider UnavailKervin Rubi MD Unavailable Reason for Visit * Reason Comments Medication Refill Encounter Details Date Type Department Care Team (Late st Contact Info) Description 02/21/2025 [facility]ill [facility] On[facility] Services [address] [place] [address] Gabriel Salmeron MD [address] [place] [address] Medication Refill Social History Tobacco Use Types Packs/Day Years Used Date Smoking Tobacco: Every Day Cigarettes 1 15 Started: 04/07/2010 Passive Smoke Exposure: Current Smokeless Tobacco: Never Alcohol Use Standard Drinks/Week Comments Yes 2 (1 standard drink = 0.6 oz pur e alcohol) occasional [facility] Utilities Answer Date Recorded In the [...] How often do you attend adventism or bahai serv ices? Never 05/07/2023 Do you belong [...] Total Score - Questions 1-9 9 06/06 [facility] of Occupat ional Health - [...] Sex Assigned at Female 05/21/2023 11:44 AM GLOVE FACTORY SEWER Legal Sex Female 5:17 PM CDT Gender Identity Female 05/21/2023 11:44 AM GLOVE FACTORY SEWER Sexual Orientation Not on file documented as of this encounter Miscellaneous Notes * Telephone Encounter - Koffi Collins RN - 02/21/2025 1:53 PM CST Pt is no longer with our practice. E FACTORY SEWER documented in this encounter Plan of Treatment Not on file documented as of this encounter Goals Goal Patient Goal Type Associated Problems Recent Progress Patient-Stated? Author I need to have a safe place to talk things out. Behavioral Health No change(07/29 4:12 PM CDT) Yes Janette Tmo LCSW Note: Goal/Objective: Improve insight and understanding of behaviors and feelings. Anticipated Time Frame for Goal Completion: 6 months Goal Reviewed with: patient Readiness to change: Ready to change Department associated with goal: [facility] Steps to achieve [...] documented as of this encounter Care Teams Software Quality Assurance Analyst Relationship Specialty Start Date End Date Provider, None [place] PCP - General 06/17/24 Gabriel Salmeron MD [address] [place] [address] Consulting Physician Medical Oncology 05/23/23 Brooks Sosa MD [address] [place] [phone] Consulting Physician Neurology 01/22/24 Kervin Jiang MD [address] [phone] Consulting Physician General Surgery 06/11/24 documented as of this encounter
--- OUTSIDE RECORDS SUMMARY | 2025-03-25 15:49 | XMS_ITS | Clinical Summary ---
Author Organization [facility] Address [address] [facility] [place] [address] Care Team Providers Care Highway Landscape Architect Name Role Phone Unavailable Primary Care Provider Unavailabl e Source Comments [facility] [employer],non-owned Affiliates and Associated Physician Practices is amultiple site organization consisting of ambulatory clinics and hospital sitesin [place], [place], [place] and [place]. This disclosure is being madepursuant to the Care Everywhere program and may not contain all information available regarding this patient. Last updated 17.[facility] [employer] Social History Tobacco Use Types Packs/Day Years [...] patient's age to complete this topic Insurance [facility] SELF PAY NO INSURANCE Member Subscriber Plan / Payer (Ef fective for All Dates) Name:Soha Javier Member ID:Not on file Relation to Subscriber:Not on file Name:SOHA JAVIER Subscriber ID:Not on file (Home) Address: [address] [place] [address] Payer ID:Not on file Group ID:Not on file Type:Self Pay Address: [place], [place] [facility]
--- OUTSIDE RECORDS SUMMARY | 2025-03-25 15:49 | XMS_ITS | Data Portability ---
Author Organization [facility] Address [address] [place] [address] Assessment Encounter Date Assessment Date Assessment LastModified by Organization Details LastModified Time 07/29/2024 07/29/2024 Annual gynecological exam performed. Patient will come back in a year unless there are new symptoms. [email or web address] Not available 07/29/2024 11:38:03 Plan of Treatment Reminders Order Date Submit Date Provider Last Modified By Organization Details Last Modified Time Details Appointments None recorded. Lab hbcab (hepatitis B core Ab) igm, serum 2024 025 [facility] (Lab), [address] [place], [address], 5 11:25:14 HBsAg (hepatitis B surface Ag), serum 2024 025 [facility] (Lab), [address] [place], [address], 5 11:25:14 hepatitis C virus Ab, serum 2024 025 [facility] (Lab), [address] [place], [address], 5 11:25:13 HIV 1+2 AB + HIV 1 p24 Ag, qualitative immunoassay , serum 2024 025 [facility] (Lab), [address] [place], [address], 5 11:25:13 RPR (rapid plasma reagin), serum 2024 025 [facility] (Lab), [address], [place], [address], 5 11:25:14 pap, IG + HR HPV - HPV regardless but if HPV is positive need subtyping 16,18/45 add STI to pap GC/CT/Trich 2024 025 [facility] (Lab), [address], [place], [address], 5 13:59:16 culture, urine 2024 [facility] (Lab), [address], [place], [address], 5 13:59:18 Referral None recorded. Procedures None recorded. Surgeries None recorded. Imaging MAMMO, diagnostic, digital, bilateral 2024 [facility], [address], [place], [address], 05:01:54 US, breast, bilateral, complete 2024 [facility], [address], [place], [address], 05:01:53 Medication Orders None recorded. Patient TargetsNo [...] of expos ure to HCV. Not Available [facility] (Lab) [address], [place], [address], 07/30/2024 11:25:13 07/30/19 25 07/29/2024 HIV 1/2 ANTIG EN/AN TIBOD Y, REFLE X CONFI RMATI ON HIV antigen/anti body Nonrea ctive nonrea ctive HIV-1 antig en and HIV-1 /HIV- 2 antib odies were not detec gabriella. No labor atory evide nce of HIV infec tion. Not Available [facility] (Lab) [address], [place], [address], 07/30/2024 11:25:13 07/30/19 25 07/29/2024 HEPAT ITIS B SURFA CE ANTIG EN hepatitis B surface antigen Non-re active non-re active This assay was perfo rmed using [employer] ratio n reage nts and test kits. Value s obtai maxim with other assay metho ds or kits canno t be used inter caro eably . Not Available [facility] (Lab) [address], [place], [address], 07/30/2024 11:25:14 07/30/19 25 07/29/2024 RPR SCREE N, REFLE X TITER /CONF IRMAT ION RPR qualitative Nonrea ctive nonrea ctive Not Available [facility] (Lab) [address], [place], [address], 07/30/2024 11:25:14 07/30/19 25 07/29/2024 HEPAT ITIS B CORE, IGM hepatitis B core IgM antibody Non-re active non-re active IgM anti- HBc not detec gabriella. Does not exclu de the possi bilit y of expos ure to or infec tion with HBV. Test Perfo rmed by: Adrian daniels rn, [facility] [address] [place] [address] Not Available [facility] (Lab) [address], [place], [address], 07/30/2024 11:25:14 07/30/19 25 07/29/2024 IMAGE GUIDE [...] epith elial Naty muñiz or Rinku jain ([facility]) . Elect apple velazquez d by [...] as clini nati zamarripa nted. Not Available [facility] (Lab) [address], [place], [address], 08/03/2024 13:59:16 07/30/19 25 07/29/2024 TRICH OMONA S VAGIN CHALO (RRNA ) trichomonas vaginalis ribosomal RNA (rrna) Negati ve negati ve Not Available [facility] (Lab) [address] [place], [address], 08/03/2024 13:59:17 07/30/19 25 07/29/2024 CT/GC (FAREED) , THINP REP VIAL chlamydia trachomatis, PCR Negati ve negati ve Not Available [facility] (Lab) [address], [place], [address], 08/03/2024 13:59:17 07/30/19 25 07/29/2024 CT/GC (FAREED) , THINP REP VIAL neisseria gonorrhoeae, PCR Negati ve negati ve Not Available [facility] (Lab) [address], [place], [address], 08/03/2024 13:59:17 07/30/19 25 07/29/2024 CULTU RE: URINE result report SEE RESULT S BELOW abnormal Test: Cultu re: Urine Speci men Sourc e: Urine - Clean Catch Speci men Type: Urine Speci men Date: 2024 1446 Resul t Date: 2024 0713 Resul t Statu s: Final resul t Ramakrishnaor mal: Yes Jacoby garcia Lab: [facility] [address] [facility] [address] Tel: CULTU RE ----- ----- ----- --- [...] <=0.5 ug/mL Susce ptibl e Not Available [facility] (Lab) [address], [place], [address], 08/03/2024 13:59:18 Result Notes None recorded. Procedures Surgical History Date Name Laterality Status Provider Name and Address Organization Details Recorded Time 11/06/19 22 chemotherapy completed [facility] 07/29/2024 12:08:18 05/08/19 15 medical termination of completed [facility] 07/29/2024 12:07:34 05/08/19 14 incision and drainage of breast abscess completed [facility] 07/29/2024 12:07:14 Imaging Results None recorded. Procedure Notes None recorded. Medical Equipment None Reported. Allergies Allergen ID Allergen Name Allergen Category Reaction Reaction Severity Criticality Documentation Date Start Date Code Code System Note Provider Name and Address Organization Details Recorded Time 24639 pecan nut food Not available Not available Not available 07/29/2024 [facility] 11:57:32 17183 Benadryl medicatio n Not available Not available Not available 07/29/202457878 7 RxNorm [facility] 11:57:43 49218 azithromy louis medicatio n Not available Not available Not available 07/29/2024 96855 RxNorm [facility] 11:58:11 Medications Name Sig [...] Updated DateTime 07/29/2024 157.48 cm 21.8 kg/m2 32604.49 g 119/81 mm[Hg] Lety Khan [facility] 07/29/2024 11:56:58 Social History Question Answer Notes LastModified by Organizat ion Details LastModified Time Do You Have An Advance Directive? No [email or web address] Information n ot available 07/29/2024 Are You Blind Or Do You Have Difficulty Seeing? No [email or web address] Information n ot available 07/29/2024 What Is Your Level Of Caffeine Consumption? Occasional [email or web address] Information not available 07/29/2024 How Much Tobacco Do You Chew? None [email or web address] Information not available 07/29/2024 In The 14 Days Before Symptom Onset, Have You Had Close Contact With A Laboratory-confirm ed COVID-19 While That Case Was Ill? No [email or web address] Information n ot available 07/29/2024 In The 14 Days Before Symptom Onset, Have You Had Close Contact With A Person Who Is Under Investigation For COVID-19 While That Person Was Ill? No [email or web address] Information not available 07/29/2024 Have You Been To An Area Known To Be High Risk For COVID-19? No [email or web address] Information not available 07/29/2024 Are You Deaf Or Do You Have Serious Difficulty Hearing? No [email or web address] Information not available 07/29/2024 What Type Of Diet Are You Following? REGULAR [email or web address] Information n ot available 07/29/2024 What Is The Highest Grade Or Level Of School You Have Completed Or The Highest Degree You Have Received? HL42054-8 Information not available 07/29/2024 Are There Any Guns Present In Your Home? No [email or web address] Information not available 07/29/2024 Do You Use Protection During Sex? No [email or web address] Information not available 07/29/2024 Do You Use Your Seat Belt Or Car Seat Routinely? No [email or web address] Information not available 07/29/2024 Do You Have Smoke And Carbon Monoxide Detectors In Your Home? Yes [email or web address] Information not available 07/29/2024 At What Age Did You Start Smoking Tobacco? 21 [email or web address] Information not available 07/29/2024 How Much Tobacco Do You Smoke? 1 PPD [email or web address] Information not available 07/29/2024 Do You Use Sunscreen Routinely? No [email or web address] Information not available 07/29/2024 Have You Used IV Drugs? No Information not available 07/29/2024 Sex: Unknown Functional Status Question Answer Note LastModified by Organizat ion Details LastModified Time Do you use any illicit or recreational drugs? No Information not available 07/29/2024 What is your level of alcohol consumption? Occasional [email or web address] Information not available 07/29/2024 Are you able [...] anxious, or unable to sleep at night)? [id number] Information not available 07/29/2024 Family History Nothing [...] ICD10 Code Diagnosis IMO Codes Diagnosis Note [id number] ANIA Reeves [place] [address] [address] 07/29/2024 11:33:28 07/30/2024 10:26:56 Gynecologic examination 66952314 Z01.719 [id number] WWEBC - declinedPa p - done todaySTI [...] advised. Questions answered. Venereal d isease screening 425694551 Z11.3 88180 Sexually t ransmitted infectious disease 3082584 A64 Breast lump 07345505 N63 .0 [id number] order given for bilateral diagnostic mammogram and u/s Health Concerns Section Related Observation LastModified by Organization Detai ls LastModified Time None Recorded Concern Status LastModified by Organization Details LastModified Time None Recorded Advance Directives Directive N: Payers Insurance Date Sequence Insurance Name Policy Number Policy Woods Covered Member ID Woods Member ID Guarantor Name 08/02/2024 1 [facility] (MEDICAID HMO) [id number] Soha Marrero [id number] Soha Marrero Notes Date Note Type Note [...] since 2023 ANIA Reeves [address], [place], [address], [place] [facility] 07/30/2024 09:32:49 OBGyn Episode Ob Episode Information Episode Created Date Number of Fetuses Patient Bloodtype Patient rh Status Prepregnancy Weight lbs Domestic Partner Domestic Partner Phone Father Name [employer] Line Technician Status 07/30/19 1 CLOSED Fetus Data First Name Last Name Admitted to NICU Weight (g) Sex Living Outcome Pediatric Complications Fetus ID Race Codes Race Delivery Type , Induced 92382 Fly Calculation Initial Fly Date Initial Exam [...] Domestic Partner Domestic Partner Phone Father Name [employer] Line Technician Status 07/30/19 1 CLOSED Fetus Data First Name Last Name Admitted to NICU Weight (g) Sex Living Outcome Pediatric Complications Fetus ID Race Codes Race Delivery Type , Spontane ous 57027 Fly Calculation Initial Fly Date Initial Exam [...] Domestic Partner Domestic Partner Phone Father Name [employer] Line Technician Status 07/30/19 25 1 CLOSED Fetus Data First Name Last Name Admitted to NICU Weight (g) Sex Living Outcome Pediatric Complications Fetus ID Race Codes Race Delivery Type F Prematur e 96489 Vaginal Delivery Fly Calculation Initial Fly Date [...]
--- OUTSIDE RECORDS SUMMARY | 2025-03-25 15:49 | XMS_ITS | Clinical Summary ---
Author Organization [place] [id number] [facility] Address [address] [place] [address] Care Team Providers Care Machine Coremaker Name Role Phone Ramy Aguilera MD Unavailable [phone] Satya Fernandez MD Primary Care Provider [phone] Allergies Active Allergy Reactions Criticality Noted Date [...] times daily, Indications: Panic Disorder, Reported on 03/17/2025 oxyCODONE (ROXICODONE) 5 mg immediate release tabletIndications: [...] vomiting 30 tablet 02/24/20 25 025 Active predniSONE (DELTASONE) 50 mg tabletIndications: Follicular lymphoma, unspecified follicular lymphoma type, unspecified body region (HCC),Prevention of chemotherapy-induc ed neutropenia Take 2 tablets (100 mg) by mouth daily Take on days 2-6 of each treatment cycle. 10 tablet 03/17/20 25 Active Active Problems Problem Noted Date [...] - Plan to discharge patient with outpatient [facility] follow-up on 09/30/24. Assessment & Plan [...] - Plan to discharge patient with outpatient [facility] follow-up on 09/30/24. Assessment & Plan [...] Encounters Date Type Department Care Team Description 03/24/2025 10:46 PM LOGISTIC MANAGER - 03/24/2025 10:51 PM LOGISTIC MANAGER Emergency [facility] Emergency Department [address] [place] [address] Discharge Disposition: Left without being seen 03/17/2025 2:00 PM LOGISTIC MANAGER Clinical Support [facility] Building 2 Radiation Oncology [address] [place] [address] Follicular lymphoma, unspecified follicular lymphoma type, unspecified body region (HCC) (Primary Dx) 03/17/2025 12:30 PM LOGISTIC MANAGER Infusion [address] [phone] Follicular lymphoma, unspecified follicular lymphoma type, unspecified body region (HCC) (Primary Dx); Prevention of chemotherapy-induced neutropenia 03/17/2025 12:00 PM LOGISTIC MANAGER Office Visit [facility] [address] [place] [phone] Ramy Aguilera MD Prevention of chemotherapy-induced neutropenia (Primary Dx); Follicular lymphoma, unspecified follicular lymphoma type, unspecified body region (HCC) 03/17/2025 11:30 AM LOGISTIC MANAGER Lab [address] [address] Follicular lymphoma, unspecified follicular lymphoma type, unspecified body region (HCC); Prevention of chemotherapy-induced neutropenia 03/16/2025 Orders Only [facility] Oncology [address] [place] [phone] Ramy Aguilera MD Follicular lymphoma, unspecified follicular lymphoma type, unspecified body region (HCC) (Primary Dx); Prevention of chemotherapy-induced neutropenia 03/08/2025 10:13 AM LOGISTIC MANAGER - 03/08/2025 11:59 PM LOGISTIC MANAGER Hospital Encounter [facility] Cardiac Testing [address] [place] [address] Follicular lymphoma, unspecified follicular lymphoma type, unspecified body region (HCC); Encounter for long-term (current) use of medications Discharge Disposition: Discharge to home or self care 02/24/2025 12:30 PM LOGISTIC MANAGER Clinical Support [facility] 2 Radiation Oncology [address] [place] [address] Follicular lymphoma, unspecified follicular lymphoma type, unspecified body region (HCC) (Primary Dx) 02/24/2025 11:00 AM LOGISTIC MANAGER Infusion [address] [phone] Follicular lymphoma, unspecified follicular lymphoma type, unspecified body region (HCC) (Primary Dx); Diffuse follicle center lymphoma, unspecified body region (HCC); Prevention of chemotherapy-induced neutropenia 02/24/2025 10:30 AM LOGISTIC MANAGER Office Visit [facility] [address] [place] [phone] Ramy Aguilera MD Follicular lymphoma, unspecified follicular lymphoma type, unspecified body region (HCC) (Primary Dx); Prevention of chemotherapy-induced neutropenia; Diffuse follicle center lymphoma, unspecified body region (HCC) 02/24/2025 10:00 AM LOGISTIC MANAGER Lab [address] [address] Diffuse follicle center lymphoma, unspecified body region (HCC); Follicular lymphoma, unspecified follicular lymphoma type, unspecified body region (HCC); Prevention of chemotherapy-induced neutropenia 02/23/2025 Orders Only [facility] [place] [facility] [address] [place] [phone] Ramy Aguilera MD Follicular lymphoma, unspecified follicular lymphoma type, unspecified body region (HCC) (Primary Dx); Prevention of chemotherapy-induced neutropenia 02/10/2025 11:00 AM LOGISTIC MANAGER Infusion [facility] at [address] [phone] Follicular lymphoma, unspecified follicular lymphoma type, unspecified body region (HCC) (Primary Dx); Prevention of chemotherapy-induced neutropenia 02/10/2025 10:30 AM LOGISTIC MANAGER Lab [facility] at [address] [address] Prevention of chemotherapy-induced neutropenia (Primary Dx); Follicular lymphoma, unspecified follicular lymphoma type, unspecified body region (HCC) 02/10/2025 Social Work [facility] Medicine Oncology [address] [place] [phone] Marycarmen Gray LCSW 02/03/2025 12:00 PM CDT Infusion [address] [phone] Follicular lymphoma, unspecified follicular lymphoma type, unspecified body region (HCC) (Primary Dx); Prevention of chemotherapy-induced neutropenia 02/03/2025 11:30 AM CDT Office Visit [facility] [address] [place] [phone] Ramy Aguilera MD Follicular lymphoma, unspecified follicular lymphoma type, unspecified body region (HCC) (Primary Dx); Prevention of chemotherapy-induced neutropenia 02/03/2025 11:00 AM CDT Lab [address] [address] Follicular lymphoma, unspecified follicular lymphoma type, unspecified body region (HCC); Prevention of chemotherapy-induced neutropenia 02/03/2025 Orders Only [facility] [place] On[facility] [address] [place] [phone] Ramy Aguilera MD 01/18/2025 Social Work [facility] [place] Oncology [address] [place] [phone] Desirae Bates LCSW 01/13/2025 12:00 PM CDT Clinical Support [facility] 2 Radiation Oncology [address] [place] [address] Follicular lymphoma, unspecified follicular lymphoma type, unspecified body region (HCC) (Primary Dx) 01/13/2025 10:30 AM CDT Infusion [address] [place] [phone] Prevention of chemotherapy-induced neutropenia (Primary Dx); Follicular lymphoma, unspecified follicular lymphoma type, unspecified body region (HCC) 01/13/2025 10:00 AM CDT Office Visit [facility] Medicine Physicians [facility]row Transplant [address] [place] [phone] Ramy Aguilera MD Follicular lymphoma, unspecified follicular lymphoma type, unspecified body region (HCC) (Primary Dx); Prevention of chemotherapy-induced neutropenia 01/13/2025 9:30 AM CDT Lab [address] [address] Follicular lymphoma, unspecified follicular lymphoma type, unspecified body region (HCC); Prevention of chemotherapy-induced neutropenia 01/12/2025 Orders Only [facility] Oncology [address] [place] [phone] Ramy Aguilera MD 12/30/2024 Orders Only [address] [phone] Paulina German RPh from Last 3 Months Immunizations Immunization Administration [...] Comments Blood Pressure 106/65 03/24/2025 3:40 PM LOGISTIC MANAGER Pulse 123 03/24/2025 3:40 PM LOGISTIC MANAGER Temperature 37.9 C (100.3 F) 03/24/2025 3:40 PM LOGISTIC MANAGER Respiratory Rate 17 03/24/2025 3:40 PM LOGISTIC MANAGER Oxygen Saturation 95% 03/24/2025 3:40 PM LOGISTIC MANAGER Inhaled Oxygen Concentration - - Weight 49.9 kg (110 lb) 03/24/2025 3:40 PM LOGISTIC MANAGER Height 160 cm (5' 3) 03/24/2025 3:40 PM LOGISTIC MANAGER Body Mass Index 19.49 03/24/2025 3:40 PM LOGISTIC MANAGER Plan of Treatment Health Maintenance Due Date [...] LATERAL 2 VIEWS ED 03/24/2025 5:22 PM LOGISTIC MANAGER ECG 12-LEAD STAT 03/24/2025 4:05 PM LOGISTIC MANAGER BLOOD SMEAR REVIEW Routine 03/17/2025 11 :40 AM LOGISTIC MANAGER Follicular lymphoma, unspecified follicular lymphoma type, unspecified body region (HCC) Prevention of chemotherapy-induce d neutropenia EGFR STAT 03/17/2025 11:40 AM LOGISTIC MANAGER Follicular lymphoma, unspecified follicular lymphoma type, unspecified body region (HCC) Prevention of chemotherapy-induce d neutropenia DIFFERENTIAL AUTO Routine 03/17/2025 11: 40 AM LOGISTIC MANAGER Follicular lymphoma, unspecified follicular lymphoma type, unspecified body region (HCC) Prevention of chemotherapy-induce d neutropenia URIC ACID Routine 03/17/2025 11:40 AM LOGISTIC MANAGER Follicular lymphoma, unspecified follicular lymphoma type, unspecified body region (HCC) LACTATE DEHYDROGENASE Routine 03/17/2025 11:40 AM LOGISTIC MANAGER Follicular lymphoma, unspecified follicular lymphoma type, unspecified body region (HCC) CBC WITH AUTO DIFFERENTIAL Routine 03/17/2025 11:40 AM LOGISTIC MANAGER Follicular lymphoma, unspecified follicular lymphoma type, unspecified body region (HCC) Prevention of chemotherapy-induce d neutropenia COMPREHENSIVE METABOLIC PANEL STAT 03/17/2025 11:40 AM LOGISTIC MANAGER Follicular lymphoma, unspecified follicular lymphoma type, unspecified body region (HCC) Prevention of chemotherapy-induce d neutropenia HCG, BLOOD, QUANTITATIVE STAT 03/17/2025 11:40 AM LOGISTIC MANAGER Follicular lymphoma, unspecified follicular lymphoma type, unspecified body region (HCC) Prevention of chemotherapy-induce d neutropenia TRANSTHORACIC ECHO (TTE) COMPLETE W DOPPLER/CF WO CONTRAST Routine 03/08/2025 11:14 AM LOGISTIC MANAGER Follicular lymphoma, unspecified follicular lymphoma type, unspecified body region (HCC) Encounter for long-term (current) use of medications BLOOD SMEAR REVIEW Routine 02/24/2025 10 :12 AM LOGISTIC MANAGER Follicular lymphoma, unspecified follicular lymphoma type, unspecified body region (HCC) Prevention of chemotherapy-induce d neutropenia EGFR STAT 02/24/2025 10:12 AM LOGISTIC MANAGER Follicular lymphoma, unspecified follicular lymphoma type, unspecified body region (HCC) Prevention of chemotherapy-induce d neutropenia DIFFERENTIAL AUTO Routine 02/24/2025 10: 12 AM LOGISTIC MANAGER Follicular lymphoma, unspecified follicular lymphoma type, unspecified body region (HCC) Prevention of chemotherapy-induce d neutropenia CBC WITH AUTO DIFFERENTIAL Routine 02/24/2025 10:12 AM LOGISTIC MANAGER Follicular lymphoma, unspecified follicular lymphoma type, unspecified body region (HCC) Prevention of chemotherapy-induce d neutropenia COMPREHENSIVE METABOLIC PANEL STAT 02/24/2025 10:12 AM LOGISTIC MANAGER Follicular lymphoma, unspecified follicular lymphoma type, unspecified body region (HCC) Prevention of chemotherapy-induce d neutropenia HCG, BLOOD, QUANTITATIVE STAT 02/24/2025 10:12 AM LOGISTIC MANAGER Follicular lymphoma, unspecified follicular lymphoma type, unspecified body region (HCC) Prevention of chemotherapy-induce d neutropenia POCT GLUCOSE DEVICE Routine 2025 1 0:24 AM LOGISTIC MANAGER BLOOD SMEAR REVIEW Routine 02/10/2025 10 :45 AM LOGISTIC MANAGER Follicular lymphoma, unspecified follicular lymphoma type, unspecified body region (HCC) Prevention of chemotherapy-induce d neutropenia EGFR STAT 02/10/2025 10:45 AM LOGISTIC MANAGER Follicular lymphoma, unspecified follicular lymphoma type, unspecified body region (HCC) Prevention of chemotherapy-induce d neutropenia DIFFERENTIAL AUTO Routine 02/10/2025 10: 45 AM LOGISTIC MANAGER Follicular lymphoma, unspecified follicular lymphoma type, unspecified body region (HCC) Prevention of chemotherapy-induce d neutropenia CBC WITH AUTO DIFFERENTIAL Routine 02/10/2025 10:45 AM LOGISTIC MANAGER Follicular lymphoma, unspecified follicular lymphoma type, unspecified body region (HCC) Prevention of chemotherapy-induce d neutropenia COMPREHENSIVE METABOLIC PANEL STAT 02/10/2025 10:45 AM LOGISTIC MANAGER Follicular lymphoma, unspecified follicular lymphoma type, unspecified body region (HCC) Prevention of chemotherapy-induce d neutropenia HCG, BLOOD, QUANTITATIVE STAT 02/10/2025 10:45 AM LOGISTIC MANAGER Follicular lymphoma, unspecified follicular lymphoma type, unspecified body region (HCC) Prevention of chemotherapy-induce d neutropenia LACTATE DEHYDROGENASE STAT 02/03/2025 11:19 AM CDT Follicular lymphoma, unspecified follicular lymphoma type, unspecified body region (HCC) Prevention of chemotherapy-induce d neutropenia BLOOD SMEAR REVIEW Routine 02/03/2025 11 :19 AM CDT Follicular lymphoma, unspecified follicular lymphoma type, unspecified body region (HCC) Prevention of chemotherapy-induce d neutropenia EGFR STAT 02/03/2025 11:19 AM CDT Follicular lymphoma, unspecified follicular lymphoma type, unspecified body region (HCC) Prevention of chemotherapy-induce d neutropenia DIFFERENTIAL AUTO Routine 02/03/2025 11: 19 AM CDT Follicular lymphoma, unspecified follicular lymphoma type, unspecified body region (HCC) Prevention of chemotherapy-induce d neutropenia CBC WITH AUTO DIFFERENTIAL Routine 02/03/2025 11:19 AM CDT Follicular lymphoma, unspecified follicular lymphoma type, unspecified body region (HCC) Prevention of chemotherapy-induce d neutropenia COMPREHENSIVE METABOLIC PANEL STAT 02/03/2025 11:19 AM CDT Follicular lymphoma, unspecified follicular lymphoma type, unspecified body region (HCC) Prevention of chemotherapy-induce d neutropenia HCG, BLOOD, QUANTITATIVE STAT 02/03/2025 11:19 AM CDT Follicular lymphoma, unspecified follicular lymphoma type, unspecified body region (HCC) Prevention of chemotherapy-induce d neutropenia BLOOD SMEAR REVIEW Routine 01/13/2025 10 :00 AM CDT Follicular lymphoma, unspecified follicular lymphoma type, unspecified body region (HCC) Prevention of chemotherapy-induce d neutropenia EGFR STAT 01/13/2025 10:00 AM CDT Follicular lymphoma, unspecified follicular lymphoma type, unspecified body region (HCC) Prevention of chemotherapy-induce d neutropenia DIFFERENTIAL AUTO Routine 01/13/2025 10: 00 AM CDT Follicular lymphoma, unspecified follicular lymphoma type, unspecified body region (HCC) Prevention of chemotherapy-induce d neutropenia CBC WITH AUTO DIFFERENTIAL Routine 01/13/2025 10:00 AM CDT Follicular lymphoma, unspecified follicular lymphoma type, unspecified body region (HCC) Prevention of chemotherapy-induce d neutropenia COMPREHENSIVE METABOLIC PANEL STAT 01/13/2025 10:00 AM CDT Follicular lymphoma, unspecified follicular lymphoma type, unspecified body region (HCC) Prevention of chemotherapy-induce d neutropenia HCG, BLOOD, QUANTITATIVE STAT 01/13/2025 10:00 AM CDT Follicular lymphoma, unspecified follicular lymphoma type, unspecified body region (HCC) Prevention of chemotherapy-induce d neutropenia from Last 3 Months Results * XR Chest PA Lateral 2 Views (If patient hemodynamically stable and ambulatory) (03/24/2025 5:22 PM LOGISTIC MANAGER) Anatomical Region Laterality Modality Body, Chest N/A Computed Radiogr aphy 03/24/2025 6:00 PM LOGISTIC MANAGER Impressions 03/24/2025 6:24 PM LOGISTIC MANAGER There are no prior chest radiographs for comparison. No pulmonary consolidation, pleural effusion or pneumothorax. Normal cardiomediastinal silhouette. Dictated by: Saúl Sigala M.D. The radiology attending physician has personally reviewed this study, and had reviewed and/or edited this written report and agrees with it. Electronically signed by: Cesilia Winston MD Narrative 03/24/2025 6:24 PM LOGISTIC MANAGER EXAMINATION: 2 view chest radiograph Procedure Note [...] Result * ECG 12-LEAD (03/24/2025 4:05 PM LOGISTIC MANAGER) Narrative [facility] - 03/24/2025 4:05 PM LOGISTIC MANAGER Elder Jones MD 03/24/2025 4:05 PM ECG 12 lead Date/Time: 03/24/2025 4:05 PM Performed by: Elder Jones MD Authorized by: Allan Arana MD Rate: ECG rate assessment comment: 119, sinus tachycardia, normal axis, normal intervals, nsstc us Allan Arana MD ECG ORDERABLES Final Result [facility] * (ABNORMAL) Blood smear review (03/17/2025 11:40 AM LOGISTIC MANAGER) RBC morphology Consistent with RBC Indicies Comment:Testing performed by : [address] [address] Platelet estimate Decreased(A) CERNER Comment:Testing performed by : [address] [address] Blood 03/17/2025 11:4 0 AM LOGISTIC MANAGER 03/17/2025 11:45 AM LOGISTIC MANAGER us Ramy Aguielra MD LAB BLOOD ORDERABLES Final R esult Performing Organization Address [facility] de Phone Number [place] [id number] [facility] [place] [address] * eGFR (03/17/2025 11:40 AM LOGISTIC MANAGER) Pathologist [facility] eGFR >90 >=60 mL/min/1. 73 m2 [...] was last reviewed 2021. Testing performed by: [address] [address] Blood 03/17/2025 11:4 0 AM LOGISTIC MANAGER 03/17/2025 11:45 AM LOGISTIC MANAGER Ramy Aguilera MD LAB BLOOD ORDERABLES Final R esult Performing Organization Address [facility] Co de Phone Number [place] [phone] [facility] [place] [address] * (ABNORMAL) Differential, auto (03/17/2025 11:40 AM LOGISTIC MANAGER) Pathologist [facility] Neutrophil abs 1.24(L) 1.50 - 6.50 K/cumm Comment:Testing performed by : [address] [address] Imm gran abs 0.01 0.00 - 0.10 K/cumm [place] Comment:Testing performed by : [address] [address] Lymphocyte abs 7.07(H) 0.80 - 3.30 K/cumm CERSUSAN Comment:Testing performed by : [address] [address] Monocyte abs 0.26 0.20 - 0.80 K/cumm [facility] Comment:Testing performed by : [address], [place]., [address] Eosinophil abs 0.03 0.00 - 0.50 K/cumm [facility] Comment:Testing performed by : [address], [place]., [address] Basophil abs 0.04 0.00 - 0.10 K/cumm [facility] Comment:Testing performed by : [address] [address] Neutrophil pct 14.4 % [facility] Comment: Interpretive Data Percent cell count reference ranges are not reported, since discordance with absolute values may lead to misinterpretation of CBC data. Current Interpretive Data was last revised on 2017. Testing performed by: [address] [address] Imm gran pct 0.1 % [facility] Comment: Interpretive Data Percent cell count reference ranges are not reported, since discordance with absolute values may lead to misinterpretation of CBC data. Current Interpretive Data was last revised on 2017. Testing performed by: [address] [address] Lymphocyte pct 81.7 % [facility] Comment: Interpretive Data Percent cell count reference ranges are not reported, since discordance with absolute values may lead to misinterpretation of CBC data. Current Interpretive Data was last revised on 2017. Testing performed by: [address] [address] Monocyte pct 3.0 % CERNER Comment: Interpretive Data Percent cell count reference ranges are not reported, since discordance with absolute values may lead to misinterpretation of CBC data. Current Interpretive Data was last revised on 2017. Testing performed by: [address] [address] Eosinophil pct 0.3 % CERNER MH Comment: Interpretive Data Percent cell count reference ranges are not reported, since discordance with absolute values may lead to misinterpretation of CBC data. Current Interpretive Data was last revised on 2017. Testing performed by: [address] [address] Basophil pct 0.5 % [place] VAZ[facility]Z Comment: Interpretive Data Percent cell count reference ranges are not reported, since discordance with absolute values may lead to misinterpretation of CBC data. Current Interpretive Data was last revised on 2017. Testing performed by: [address] [address] Blood 03/17/2025 11:4 0 AM LOGISTIC MANAGER 03/17/2025 11:45 AM LOGISTIC MANAGER us Ramy Aguilera MD LAB BLOOD ORDERABLES Final R esult [place] [facility] [place] [address] * (ABNORMAL) CBC with auto differential (03/17/2025 11:40 AM LOGISTIC MANAGER) WBC 8.65 3.80 - 9.90 K/cumm Comment:Testing performed by : [address] [address] Hgb 8.6(L) 11.9 - 15.5 g/dL [place] VAZQUEZ Comment:Testing performed by : [address] [address] Hct 27.5(L) 35.6 - 45.5 % [place] VAZQUEZ Comment:Testing performed by : [address] [address] Plt 114(L) 150 - 400 K/cumm [place] VAZQUEZ Comment:Testing performed by : [address] [address] MPV 9.5 9.1 - 12.3 fL [place] VAZQUEZ Comment:Testing performed by : [address] [address] RBC 2.89(L) 3.90 - 5.20 M/cumm [place] VAZQUEZ Comment:Testing performed by : [address] [address] MCV 95.2 81.3 - 96.4 fL [place] VAZQUEZ Comment:Testing performed by : [address] [address] MCH 29.8 27.1 - 33.3 pg [place] VAZQUEZ Comment:Testing performed by : [address] [address] MCHC 31.3(L) 32.3 - 35.7 g/dL [place] VAZQUEZ Comment:Testing performed by : [address] [address] RDW CV 17.7(H) 11.1 - 14.9 % [place] Comment:Testing performed by : [address] [address] RDW SD 61.4(H) 35.7 - 48.1 fL [place] Comment:Testing performed by : [address] [address] NRBC abs 0.00 0.00 - 0.01 K/cumm [place] Comment:Testing performed by : [address] [address] ANC Prelim 1.24(L) 1.50 - 6.50 K/cumm [place] Comment: Interpretive Data The rapid ANC is a preliminary automated count and may vary from the final ANC (Neut Abs) reported in the WBC differential that follows. Current interpretive data was last revised 2024. Testing performed by: [address] [address] Blood 03/17/2025 11:4 0 AM LOGISTIC MANAGER 03/17/2025 11:45 AM LOGISTIC MANAGER us Ramy Aguilera MD LAB BLOOD ORDERABLES Edited Result - Final [facility] [address] [facility] Department of Laboratories [place], [place] [id number] * hCG, blood, quantitative (03/17/2025 11:40 AM LOGISTIC MANAGER) hCG, quant <5.0 0.0 - 5.0 IUnits/L Comment: Interpretive Data Male: < 5 IU/L Non- premenopausal Female: <5 IU/L The [employer] hCG Beta Quant assay procedure was used. Results from different manufacturers or methods may not be comparable. Serial testing should be performed using the same method. Interpretive Data was last revised on 2023 Testing performed by: [address] [address] Blood 03/17/2025 11:4 0 AM LOGISTIC MANAGER 03/17/2025 12:11 PM LOGISTIC MANAGER Ramy Aguilera MD LAB BLOOD ORDERABLES Edited Result - Final Performing Organization Address [facility] de Phone Number [address] [place] [address] * Uric acid (03/17/2025 11:40 AM LOGISTIC MANAGER) [facility] Uric acid 5.6 2.5 - 7.0 mg/dL Comment:Testing performed by : [address] [address] Blood 03/17/2025 11:4 0 AM LOGISTIC MANAGER 03/17/2025 11:45 AM LOGISTIC MANAGER Ramy Aguilera MD LAB BLOOD ORDERABLES Final R esult Performing Organization Address [facility] Co de Phone Number [address] [place] [address] * Lactate dehydrogenase (LD) (03/17/2025 11:40 AM LOGISTIC MANAGER) [facility] Lactate dehydrogenase (LDH) 243 100 - 250 Units/L Comment:Testing performed by : [address] [address] Blood 03/17/2025 11:4 0 AM LOGISTIC MANAGER 03/17/2025 11:45 AM LOGISTIC MANAGER us Ramy Aguilera MD LAB BLOOD ORDERABLES Final R esult JOSELYN [address] [facility] [place] [address] * (ABNORMAL) Comprehensive metabolic panel (03/17/2025 11:40 AM LOGISTIC MANAGER) Sodium 140 135 - 145 mmol/L Comment:Testing performed by : [address] [address] Potassium, pl 3.9 3.3 - 4.9 mmol/L JOSELYN Comment:Testing performed by : [address] [address] Chloride 102 97 - 110 mmol/L JOSELYN Comment:Testing performed by : [address] [address] CO2 26 22 - 32 mmol/L JOSELYN Comment:Testing performed by : [address] [address] Anion gap 12 2 - 15 mmol/L JOSELYN Comment:Testing performed by : [address] [address] BUN 7 6 - 25 mg/dL JOSELYN Comment:Testing performed by : [address] [address] Creatinine 0.70 0.60 - 1.10 mg/dL JOSELYN Comment:Testing performed by : [address] [address] Glucose 101 70 - 199 mg/dL JOSELYN [...] was last revised 2022. Testing performed by: [address] [address] Calcium 8.8 8.5 - 10.3 mg/dL JOSELYN Comment:Testing performed by : [address] [address] Bilirubin, total 0.4 0.1 - 1.2 mg/dL JOSELYN Comment:Testing performed by : [address] [address] Protein, pl 6.3(L) 6.5 - 8.5 g/dL JOSELYN Comment:Testing performed by : [address] [address] Albumin 4.3 3.5 - 5.0 g/dL JOSELYN Comment:Testing performed by : [address] [address] Alk phos 209(H) 40 - 130 Units/L JOSELYN Comment:Testing performed by : [address] [address] ALT 25 7 - 45 Units/L JOSELYN Comment:Testing performed by : [address] [address] AST 33 10 - 45 Units/L JOSELYN Comment:Testing performed by : [address] [address] Blood 03/17/2025 11:4 0 AM LOGISTIC MANAGER 03/17/2025 11:45 AM LOGISTIC MANAGER us Ramy Aguilera MD LAB BLOOD ORDERABLES Final R esult JOSELYN [address] [facility] [place] [address] * TRANSTHORACIC ECHO (TTE) COMPLETE W DOPPLER/CF WO CONTRAST (03/08/2025 11:14 AM LOGISTIC MANAGER) Estimated EF 59 % CONS SCIMAGE Anatomical Region Laterality Modality Ultrasound 03/08/2025 10:2 6 AM LOGISTIC MANAGER Narrative 03/08/2025 5:07 PM LOGISTIC MANAGER Transthoracic Echocardiographic Report Patient Name: SOHA MARRERO R : 1990 (35y ) Sex: F Study Date: 03/08/2025 10:26:39 AM Ht(Inch): 62 Wt(Lb): 111 BSA: 1.48 Trimmer Machine: Olivia Song RDCS Order Provider: RAMY AGUILERA Heart Rate: 95 BMI: 20.3 BP: 115 / 53 Ref Provider: RAMY AGUILERA PROCEDURES: Echocardiographic Report: ([id number]) Transthoracic complete echo, 2D, spectral and tissue Doppler, color flow Doppler, M-mode. 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 FINDINGS: Left Ventricle: Normal [...] By: Sultan Nathen MD 03/08/2025 5:06:19 PM LOGISTIC MANAGER Procedure Note Sultan Katherine Sena MD - 03/08/2025 Transthoracic Echocardiographic Report Patient Name: SOHA MARRERO R : 1990 (35y ) Sex: F Study Date: 03/08/2025 10:26:39 AM Ht(Inch): 62 Wt(Lb): 111 BSA: 1.48 Trimmer Machine: Olivia Song RDCS Order Provider: RAMY AGUILERA Heart Rate: 95 BMI: 20.3 BP: 115 / 53 Ref Provider: RAMY AGUILERA PROCEDURES: Echocardiographic Report: ([id number]) Transthoracic complete echo, 2D,spectral and tissue Doppler, color flow Doppler, M-mode. 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 FINDINGS: Left Ventricle: Normal [...] [ 1.71 - 5.00 ] MV Decel [id number] msec AoR Diam 2D 2.40 cm [ [...] By: Sultan Nathen MD 03/08/2025 5:06:19 PM LOGISTIC MANAGER us Ramy Aguilear MD CV ECHO PROCEDURES Final Res ult * (ABNORMAL) Blood smear review (02/24/2025 10:12 AM LOGISTIC MANAGER) RBC morphology Consistent with RBC Indicies Comment:Testing performed by : [address] [address] Anisocytosis Slight(A) JOSELYN VAZQUEZ Comment:Testing performed by : [address] [address] Platelet estimate Adequate JOSELYN VAZQUEZ Comment:Testing performed by : [address] [address] Blood 02/24/2025 10:1 2 AM LOGISTIC MANAGER 02/24/2025 10:15 AM LOGISTIC MANAGER us Ramy Aguilera MD LAB BLOOD ORDERABLES Final R esult JOSELYN [address] [facility] [place] [address] * eGFR (02/24/2025 10:12 AM LOGISTIC MANAGER) eGFR >90 >=60 mL/min/1. 73 m2 Comment: [...] was last reviewed 2021. Testing performed by: [address] [address] Blood 02/24/2025 10:1 2 AM LOGISTIC MANAGER 02/24/2025 10:15 AM LOGISTIC MANAGER us Ramy Aguilera MD LAB BLOOD ORDERABLES Final R esult [facility] [address] [facility] [place] [address] * (ABNORMAL) Differential, auto (02/24/2025 10:12 AM LOGISTIC MANAGER) Neutrophil abs 1.94 1.50 - 6.50 K/cumm Comment:Testing performed by : [address] [address] Imm gran abs 0.02 0.00 - 0.10 K/cumm JOSELYN Comment:Testing performed by : [address] [address] Lymphocyte abs 10.97(H) 0.80 - 3.30 K/cumm JOSELYN Comment:Testing performed by : [address] [address] Monocyte abs 0.29 0.20 - 0.80 K/cumm JOSELYN Comment:Testing performed by : [address] [address] Eosinophil abs 0.09 0.00 - 0.50 K/cumm JOSELYN Comment:Testing performed by : [address] [address] Basophil abs 0.05 0.00 - 0.10 K/cumm JOSELYN Comment:Testing performed by : [address] [address] Neutrophil pct 14.5 % JOSELYN Comment: Interpretive Data Percent cell count reference ranges are not reported, since discordance with absolute values may lead to misinterpretation of CBC data. Current Interpretive Data was last revised on 2017. Testing performed by: [address] [address] Imm gran pct 0.1 % JOSELYN Comment: Interpretive Data Percent cell count reference ranges are not reported, since discordance with absolute values may lead to misinterpretation of CBC data. Current Interpretive Data was last revised on 2017. Testing performed by: [address] [address] Lymphocyte pct 82.1 % [facility] Comment: Interpretive Data Percent cell count reference ranges are not reported, since discordance with absolute values may lead to misinterpretation of CBC data. Current Interpretive Data was last revised on 2017. Testing performed by: [address] [address] Monocyte pct 2.2 % [facility] Comment: Interpretive Data Percent cell count reference ranges are not reported, since discordance with absolute values may lead to misinterpretation of CBC data. Current Interpretive Data was last revised on 2017. Testing performed by: [address] [address] Eosinophil pct 0.7 % [facility] Comment: Interpretive Data Percent cell count reference ranges are not reported, since discordance with absolute values may lead to misinterpretation of CBC data. Current Interpretive Data was last revised on 2017. Testing performed by: [address] [address] Basophil pct 0.4 % [facility] Comment: Interpretive Data Percent cell count reference ranges are not reported, since discordance with absolute values may lead to misinterpretation of CBC data. Current Interpretive Data was last revised on 2017. Testing performed by: [address] [address] Blood 02/24/2025 10:1 2 AM LOGISTIC MANAGER 02/24/2025 10:15 AM LOGISTIC MANAGER us Ramy Aguilera MD LAB BLOOD ORDERABLES Final R esult JOSELYN VAZQUEZ [address] [facility] Department of Laboratories [place], [place] [id number] * (ABNORMAL) CBC with auto differential (02/24/2025 10:12 AM LOGISTIC MANAGER) WBC 13.36(H) 3.80 - 9.90 K/cumm Comment:Testing performed by : [address] [address] Hgb 8.7(L) 11.9 - 15.5 g/dL JOSELYN Comment:Testing performed by : [address] [address] Hct 27.7(L) 35.6 - 45.5 % CERSUSAN Comment:Testing performed by : [address] [address] Plt 141(L) 150 - 400 K/cumm CERSUSAN Comment:Testing performed by : [address], [address] MPV 9.6 9.1 - 12.3 fL [facility]ERS[facility]AN Comment:Testing performed by : [address], [address] RBC 2.98(L) 3.90 - 5.20 M/cumm JOSELYN Comment:Testing performed by : [address], [address] MCV 93.0 81.3 - 96.4 fL CERSUSAN Comment:Testing performed by : [address], [address] MCH 29.2 27.1 - 33.3 pg CERSUSAN Comment:Testing performed by : [address] [address] MCHC 31.4(L) 32.3 - 35.7 g/dL JOSELYN Comment:Testing performed by : [address], [address] RDW CV 18.6(H) 11.1 - 14.9 % CERSUSAN Comment:Testing performed by : [address], [address] RDW SD 60.3(H) 35.7 - 48.1 fL CERSUSAN Comment:Testing performed by : [address] [address] NRBC abs 0.02(H) 0.00 - 0.01 K/cumm JOSELYN Comment:Testing performed by : [address] [place] [address] ANC Prelim 1.94 1.50 - 6.50 K/cumm JOSELYN Comment: Interpretive Data The rapid ANC is a preliminary automated count and may vary from the final ANC (Neut Abs) reported in the WBC differential that follows. Current interpretive data was last revised 2024. Testing performed by: [address] [address] Blood 02/24/2025 10:1 2 AM LOGISTIC MANAGER 02/24/2025 10:15 AM LOGISTIC MANAGER Ramy Aguilera MD LAB BLOOD ORDERABLES Final R esult Performing Organization Address [facility] de Phone Number JOSELYN [address] [facility] [place] [address] * hCG, blood, quantitative (02/24/2025 10:12 AM LOGISTIC MANAGER) hCG, quant <5.0 0.0 - 5.0 IUnits/L Comment: Interpretive Data Male: < 5 IU/L Non- premenopausal Female: <5 IU/L The Cosmo hCG Beta Quant assay procedure was used. Results from different manufacturers or methods may not be comparable. Serial testing should be performed using the same method. Interpretive Data was last revised on 2023 Testing performed by: [address] [address] Blood 02/24/2025 10:1 2 AM LOGISTIC MANAGER 02/24/2025 10:46 AM LOGISTIC MANAGER Ramy Aguilera MD LAB BLOOD ORDERABLES Final R esult Performing Organization Address [facility] Co de Phone Number [facility] [address] [facility] [place] [address] * (ABNORMAL) Comprehensive metabolic panel (02/24/2025 10:12 AM LOGISTIC MANAGER) Sodium 141 135 - 145 mmol/L Comment:Testing performed by : [address] [address] Potassium, pl 3.8 3.3 - 4.9 mmol/L [facility] Comment:Testing performed by : [address] [address] Chloride 102 97 - 110 mmol/L [facility] Comment:Testing performed by : [address], [place]., [address] CO2 26 22 - 32 mmol/L [facility] Comment:Testing performed by : [address] [address] Anion gap 13 2 - 15 mmol/L [facility] Comment:Testing performed by : [address] [address] BUN 13 6 - 25 mg/dL [facility] Comment:Testing performed by : [address], [place]., [address] Creatinine 0.70 0.60 - 1.10 mg/dL [facility] Comment:Testing performed by : [address] [address] Glucose 83 70 - 199 mg/dL [facility] Comment: Interpretive Data Fasting glucose [...] was last revised 2022. Testing performed by: [address] [address] Calcium 9.5 8.5 - 10.3 mg/dL [facility] Comment:Testing performed by : [address] [address] Bilirubin, total 0.3 0.1 - 1.2 mg/dL [facility] Comment:Testing performed by : [address] [address] Protein, pl 6.1(L) 6.5 - 8.5 g/dL JOSELYN Comment:Testing performed by : [address] [address] Albumin 4.0 3.5 - 5.0 g/dL JOSELYN VAZQUEZ Comment:Testing performed by : [address] [address] Alk phos 150(H) 40 - 130 Units/L JOSELYN Comment:Testing performed by : [address] [address] ALT 8 7 - 45 Units/L JOSELYN Comment:Testing performed by : [address] [address] AST 18 10 - 45 Units/L JOSELYN Comment:Testing performed by : [address] [address] Blood 02/24/2025 10:1 2 AM LOGISTIC MANAGER 02/24/2025 10:15 AM LOGISTIC MANAGER us Ramy Aguilera MD LAB BLOOD ORDERABLES Final R esult Performing Organization Address City/[facility] Co de Phone Number [address] [place] [address] * POCT glucose (2025 10:24 AM LOGISTIC MANAGER) Pathologist [facility] Glucose, POC 91 70 - 199 mg/dL Comment:Testing performed by : [address] [address] Blood 2025 10:2 4 AM LOGISTIC MANAGER 2025 10:24 AM LOGISTIC MANAGER Ramy Aguilera MD LAB POCT ORDERABLES - DEVICE Final Result Performing Organization Address City/[facility]/ZIP Co de Phone Number [address] [email or web address] [address] * (ABNORMAL) Blood smear review (02/10/2025 10:45 AM LOGISTIC MANAGER) Pathologist [facility] RBC morphology Consistent with RBC Indicies Comment:Testing performed by : [address] [address] Anisocytosis Slight(A) JOSELYN VAZQUEZ Comment:Testing performed by : [address] [address] Platelet estimate Adequate JOSELYN VAZQUEZ Comment:Testing performed by : [address] [address] Blood 02/10/2025 10:4 5 AM LOGISTIC MANAGER 02/10/2025 10:48 AM LOGISTIC MANAGER us Ramy Aguilera MD LAB BLOOD ORDERABLES Final R esult JOSELYN VAZQUEZ [address] [facility] [place] [address] * eGFR (02/10/2025 10:45 AM LOGISTIC MANAGER) eGFR >90 >=60 mL/min/1. 73 m2 Comment: [...] was last reviewed 2021. Testing performed by: [address] [address] Blood 02/10/2025 10:4 5 AM LOGISTIC MANAGER 02/10/2025 10:48 AM LOGISTIC MANAGER us Ramy Aguilera MD LAB BLOOD ORDERABLES Final R esult JOSELYN [address] [facility] [place] [address] * (ABNORMAL) Differential, auto (02/10/2025 10:45 AM LOGISTIC MANAGER) Neutrophil abs 2.05 1.50 - 6.50 K/cumm Comment:Testing performed by : [address] [address] Imm gran abs 0.01 0.00 - 0.10 K/cumm JOSELYN Comment:Testing performed by : [address] [address] Lymphocyte abs 13.08(H) 0.80 - 3.30 K/cumm JOSELYN Comment:Testing performed by : [address] [address] Monocyte abs 0.29 0.20 - 0.80 K/cumm JOSELYN Comment:Testing performed by : [address] [address] Eosinophil abs 0.02 0.00 - 0.50 K/cumm JOSELYN Comment:Testing performed by : [address] [address] Basophil abs 0.07 0.00 - 0.10 K/cumm JOSELYN Comment:Testing performed by : [address] [address] Neutrophil pct 13.1 % JOSELYN Comment: Interpretive Data Percent cell count reference ranges are not reported, since discordance with absolute values may lead to misinterpretation of CBC data. Current Interpretive Data was last revised on 2017. Testing performed by: [address] [address] Imm gran pct 0.1 % JOSELYN Comment: Interpretive Data Percent cell count reference ranges are not reported, since discordance with absolute values may lead to misinterpretation of CBC data. Current Interpretive Data was last revised on 2017. Testing performed by: [address] [address] Lymphocyte pct 84.3 % JOSELYN Comment: Interpretive Data Percent cell count reference ranges are not reported, since discordance with absolute values may lead to misinterpretation of CBC data. Current Interpretive Data was last revised on 2017. Testing performed by: [address] [address] Monocyte pct 1.9 % JOSELYN Comment: Interpretive Data Percent cell count reference ranges are not reported, since discordance with absolute values may lead to misinterpretation of CBC data. Current Interpretive Data was last revised on 2017. Testing performed by: [address] [address] Eosinophil pct 0.1 % JOSELYN Comment: Interpretive Data Percent cell count reference ranges are not reported, since discordance with absolute values may lead to misinterpretation of CBC data. Current Interpretive Data was last revised on 2017. Testing performed by: [address] [address] Basophil pct 0.5 % JOSELYN Comment: Interpretive Data Percent cell count reference ranges are not reported, since discordance with absolute values may lead to misinterpretation of CBC data. Current Interpretive Data was last revised on 2017. Testing performed by: [address] [address] Blood 02/10/2025 10:4 5 AM LOGISTIC MANAGER 02/10/2025 10:48 AM LOGISTIC MANAGER us Ramy Aguilera MD LAB BLOOD ORDERABLES Final R esult [facility] [address] [facility] [place] [address] * (ABNORMAL) CBC with auto differential (02/10/2025 10:45 AM LOGISTIC MANAGER) WBC 15.52(H) 3.80 - 9.90 K/cumm Comment:Testing performed by : [address] [address] Hgb 7.9(L) 11.9 - 15.5 g/dL JOSELYN Comment:Testing performed by : [address] [address] Hct 25.5(L) 35.6 - 45.5 % JOSELYN Comment:Testing performed by : [address] [address] Plt 128(L) 150 - 400 K/cumm JOSELYN Comment:Testing performed by : [address] [address] MPV 10.3 9.1 - 12.3 fL JOSELYN Comment:Testing performed by : [address], [address] RBC 2.75(L) 3.90 - 5.20 M/cumm JOSELYN Comment:Testing performed by : [address], [address] MCV 92.7 81.3 - 96.4 fL JOSELYN Comment:Testing performed by : [address] [address] MCH 28.7 27.1 - 33.3 pg JOSELYN Comment:Testing performed by : [address] [address] MCHC 31.0(L) 32.3 - 35.7 g/dL JOSELYN Comment:Testing performed by : [address] [address] RDW CV 18.0(H) 11.1 - 14.9 % JOSELYN Comment:Testing performed by : [address], [address] RDW SD 60.4(H) 35.7 - 48.1 fL [facility] Comment:Testing performed by : [address] [address] NRBC abs 0.00 0.00 - 0.01 K/cumm JOSELYN Comment:Testing performed by : [address] [address] ANC Prelim 2.05 1.50 - 6.50 K/cumm JOSELYN Comment: Interpretive Data The rapid ANC is a preliminary automated count and may vary from the final ANC (Neut Abs) reported in the WBC differential that follows. Current interpretive data was last revised 2024. Testing performed by: [address] [address] Blood 02/10/2025 10:4 5 AM LOGISTIC MANAGER 02/10/2025 10:48 AM LOGISTIC MANAGER Ramy Aguilera MD LAB BLOOD ORDERABLES Final R esult Performing Organization Address [facility] de Phone Number [address] [email or web address] [address] * hCG, blood, quantitative (02/10/2025 10:45 AM LOGISTIC MANAGER) hCG, quant <5.0 0.0 - 5.0 IUnits/L Comment: Interpretive Data Male: < 5 IU/L Non- premenopausal Female: <5 IU/L The Cosmo hCG Beta Quant assay procedure was used. Results from different manufacturers or methods may not be comparable. Serial testing should be performed using the same method. Interpretive Data was last revised on 2023 Testing performed by: [address] [address] Blood 02/10/2025 10:4 5 AM LOGISTIC MANAGER 02/10/2025 11:06 AM LOGISTIC MANAGER us Ramy Aguilera MD LAB BLOOD ORDERABLES Final R esult Performing Organization Address [facility] de Phone Number [address] [place] [address] * (ABNORMAL) Comprehensive metabolic panel (02/10/2025 10:45 AM LOGISTIC MANAGER) Sodium 143 135 - 145 mmol/L Comment:Testing performed by : [address] [address] Potassium, pl 3.8 3.3 - 4.9 mmol/L JOSELYN VAZQUEZ Comment:Testing performed by : [address] [address] Chloride 102 97 - 110 mmol/L JOSELYN VAZQUEZ Comment:Testing performed by : [address] [place] [address] CO2 29 22 - 32 mmol/L [facility] Comment:Testing performed by : [address] [address] Anion gap 12 2 - 15 mmol/L [facility] Comment:Testing performed by : [address] [address] BUN 12 6 - 25 mg/dL [facility] Comment:Testing performed by : [address] [address] Creatinine 0.80 0.60 - 1.10 mg/dL [facility] Comment:Testing performed by : [address] [address] Glucose 94 70 - 199 mg/dL [facility] Comment: Interpretive Data Fasting glucose [...] was last revised 2022. Testing performed by: [address] [address] Calcium 9.0 8.5 - 10.3 mg/dL [facility] Comment:Testing performed by : [address] [address] Bilirubin, total 0.3 0.1 - 1.2 mg/dL [facility] Comment:Testing performed by : [address] [address] Protein, pl 6.1(L) 6.5 - 8.5 g/dL [facility] Comment:Testing performed by : [address] [address] Albumin 4.0 3.5 - 5.0 g/dL [facility] Comment:Testing performed by : [address] [address] Alk phos 149(H) 40 - 130 Units/L JOSELYN VAZQUEZ Comment:Testing performed by : [address] [address] ALT 11 7 - 45 Units/L JOSELYN VAZQUEZ Comment:Testing performed by : [address] [address] AST 23 10 - 45 Units/L JOSELYN Comment:Testing performed by : [address] [address] Blood 02/10/2025 10:4 5 AM LOGISTIC MANAGER 02/10/2025 10:48 AM LOGISTIC MANAGER us Ramy Aguilera MD LAB BLOOD ORDERABLES Final R esult Performing Organization Address City/[facility] Co de Phone Number JOSELYN [address] [place] [address] * (ABNORMAL) Blood smear review (02/03/2025 11:19 AM CDT) Pathologist [facility] RBC morphology Consistent with RBC Indicies Comment:Testing performed by : [address] [address] Anisocytosis Slight(A) JOSELYN VAZQUEZ Comment:Testing performed by : [address] [address] Platelet estimate Adequate JOSELYN VAZQUEZ Comment:Testing performed by : [address] [address] Blood 02/03/2025 11:1 9 AM CDT 02/03/2025 11:22 AM CDT us Ramy Aguilera MD LAB BLOOD ORDERABLES Final R esult [facility] [place] [address] * eGFR (02/03/2025 11:19 AM CDT) eGFR [...] was last reviewed 2021. Testing performed by: [address] [address] Blood 02/03/2025 11:1 9 AM CDT 02/03/2025 11:22 AM CDT us Ramy Aguilera MD LAB BLOOD ORDERABLES Final R esult [facility] [address] [facility] [place] [address] * (ABNORMAL) Differential, auto (02/03/2025 11:19 AM CDT) Neutrophil abs 2.22 1.50 - 6.50 K/cumm Comment:Testing performed by : [address] [address] Imm gran abs 0.04 0.00 - 0.10 K/cumm JOSELYN Comment:Testing performed by : [address] [address] Lymphocyte abs 22.28(H) 0.80 - 3.30 K/cumm JOSELYN Comment:Testing performed by : [address] [address] Monocyte abs 0.58 0.20 - 0.80 K/cumm JOSELYN Comment:Testing performed by : [address] [address] Eosinophil abs 0.01 0.00 - 0.50 K/cumm JOSELYN Comment:Testing performed by : [address] [address] Basophil abs 0.11(H) 0.00 - 0.10 K/cumm JOSELYN Comment:Testing performed by : [address] [address] Neutrophil pct 8.8 % [facility] Comment: Interpretive Data Percent cell count reference ranges are not reported, since discordance with absolute values may lead to misinterpretation of CBC data. Current Interpretive Data was last revised on 2017. Testing performed by: [address] [address] Imm gran pct 0.2 % JOSELYN Comment: Interpretive Data Percent cell count reference ranges are not reported, since discordance with absolute values may lead to misinterpretation of CBC data. Current Interpretive Data was last revised on 2017. Testing performed by: [address] [address] Lymphocyte pct 88.3 % [facility] Comment: Interpretive Data Percent cell count reference ranges are not reported, since discordance with absolute values may lead to misinterpretation of CBC data. Current Interpretive Data was last revised on 2017. Testing performed by: [address] [address] Monocyte pct 2.3 % [facility] Comment: Interpretive Data Percent cell count reference ranges are not reported, since discordance with absolute values may lead to misinterpretation of CBC data. Current Interpretive Data was last revised on 2017. Testing performed by: [address] [address] Eosinophil pct 0.0 % CERSUSAN Comment: Interpretive Data Percent cell count reference ranges are not reported, since discordance with absolute values may lead to misinterpretation of CBC data. Current Interpretive Data was last revised on 2017. Testing performed by: [address] [address] Basophil pct 0.4 % JOSELYN Comment: Interpretive Data Percent cell count reference ranges are not reported, since discordance with absolute values may lead to misinterpretation of CBC data. Current Interpretive Data was last revised on 2017. Testing performed by: [address] [address] Blood 02/03/2025 11:1 9 AM CDT 02/03/2025 11:22 AM CDT us Ramy Aguilera MD LAB BLOOD ORDERABLES Final R esult [facility] [address] [facility] [place] [address] * (ABNORMAL) CBC with auto differential (02/03/2025 11:19 AM CDT) WBC 25.24(H) 3.80 - 9.90 K/cumm Comment:Testing performed by : [address] [address] Hgb 8.7(L) 11.9 - 15.5 g/dL JOSELYN Comment:Testing performed by : [address] [address] Hct 28.1(L) 35.6 - 45.5 % JOSELYN Comment:Testing performed by : [address] [address] Plt 176 150 - 400 K/cumm JOSELYN Comment:Testing performed by : [address] [address] MPV 9.6 9.1 - 12.3 fL JOSELYN Comment:Testing performed by : [address] [address] RBC 3.07(L) 3.90 - 5.20 M/cumm JOSELYN Comment:Testing performed by : [address] [address] MCV 91.5 81.3 - 96.4 fL JOSELYN Comment:Testing performed by : [address] [address] MCH 28.3 27.1 - 33.3 pg JOSELYN Comment:Testing performed by : [facility], [address] [place] [address]., [address] MCHC 31.0(L) 32.3 - 35.7 g/dL JOSELYN VAZQUEZ Comment:Testing performed by : [address] [address] RDW CV 17.6(H) 11.1 - 14.9 % JOSELYN Comment:Testing performed by : [address] [address] RDW SD 57.8(H) 35.7 - 48.1 fL JOSELYN Comment:Testing performed by : [address] [address] NRBC abs 0.02(H) 0.00 - 0.01 K/cumm JOSELYN Comment:Testing performed by : [address] [address] ANC Prelim 2.22 1.50 - 6.50 K/cumm JOSELYN Comment: Interpretive Data The rapid ANC is a preliminary automated count and may vary from the final ANC (Neut Abs) reported in the WBC differential that follows. Current interpretive data was last revised 2024. Testing performed by: [address] [address] Blood 02/03/2025 11:1 9 AM CDT 02/03/2025 11:22 AM CDT Ramy Aguilera MD LAB BLOOD ORDERABLES Edited Result - Final JOSELYN [address] [facility] Department of Laboratories [place], [place] [id number] * hCG, blood, quantitative (02/03/2025 11:19 AM CDT) [facility] hCG, quant <5.0 0.0 - 5.0 IUnits/L Comment: Interpretive Data Male: < 5 IU/L Non- premenopausal Female: <5 IU/L The Cosmo hCG Beta Quant assay procedure was used. Results from different manufacturers or methods may not be comparable. Serial testing should be performed using the same method. Interpretive Data was last revised on 2023 Testing performed by: [address] [address] Blood 02/03/2025 11:1 9 AM CDT 02/03/2025 11:45 AM CDT Ramy Aguilera MD LAB BLOOD ORDERABLES Final R esult Performing Organization Address [facility] de Phone Number D[address] [address] * (ABNORMAL) Lactate dehydrogenase (LD) (02/03/2025 11:19 AM CDT) [facility] Lactate dehydrogenase (LDH) 392(H) 100 - 250 Units/L Comment: HEMOLYZED: Hemolysis interferes with the above test. Testing performed by: [address] [address] Blood 02/03/2025 11:1 9 AM CDT 02/03/2025 11:22 AM CDT Ramy Aguilera MD LAB BLOOD ORDERABLES Final R esult Performing Organization Address [facility] de Phone Number [address] [address] * (ABNORMAL) Comprehensive metabolic panel (02/03/2025 11:19 AM CDT) [facility] Sodium 136 135 - 145 mmol/L Comment:Testing performed by : [address] [address] Potassium, pl 3.7 3.3 - 4.9 mmol/L JOSELYN VAZQUEZ Comment:Testing performed by : [address] [address] Chloride 99 97 - 110 mmol/L JOSELYN Comment:Testing performed by : [address] [address] CO2 23 22 - 32 mmol/L JOSELYN VAZQUEZ Comment:Testing performed by : [address] [address] Anion gap 14 2 - 15 mmol/L JOSELYN Comment:Testing performed by : [address] [address] BUN 8 6 - 25 mg/dL JOSELYN Comment:Testing performed by : [address], [place]., [address] Creatinine 0.70 0.60 - 1.10 mg/dL JOSELYN Comment:Testing performed by : [address] [address] Glucose 105 70 - 199 mg/dL JOSELYN [...] was last revised 2022. Testing performed by: [address] [address] Calcium 9.3 8.5 - 10.3 mg/dL JOSELYN Comment:Testing performed by : [address] [address] Bilirubin, total 0.5 0.1 - 1.2 mg/dL JOSELYN Comment:Testing performed by : [address] [address] Protein, pl 6.4(L) 6.5 - 8.5 g/dL JOSELYN Comment:Testing performed by : [address] [address] Albumin 4.0 3.5 - 5.0 g/dL JOSELYN Comment:Testing performed by : [address] [address] Alk phos 180(H) 40 - 130 Units/L JOSELYN Comment:Testing performed by : [address] [address] ALT 25 7 - 45 Units/L JOSELYN VAZQUEZ Comment:Testing performed by : [address] [address] AST 33 10 - 45 Units/L JOSELYN VAZQUEZ Comment:Testing performed by : [address] [address] Blood 02/03/2025 11:1 9 AM CDT 02/03/2025 11:22 AM CDT us Ramy Aguilera MD LAB BLOOD ORDERABLES Final R esult Performing Organization Address [facility] Co de Phone Number D[address] [place] [address] * (ABNORMAL) Blood smear review (01/13/2025 10:00 AM CDT) Pathologist [facility] RBC morphology Consistent with RBC Indicies Comment:Testing performed by : [address] [address] Anisocytosis Slight(A) JOSELYN VAZQUEZ Comment:Testing performed by : [address] [address] Platelet estimate Adequate JOSELYN Comment:Testing performed by : [address] [address] Blood 01/13/2025 10:0 0 AM CDT 01/13/2025 10:02 AM CDT us Ramy Aguilera MD LAB BLOOD ORDERABLES Final R esult Performing Organization Address [facility] Co de Phone Number D[address]IN[address] [place] [address] * eGFR (01/13/2025 10:00 AM CDT) eGFR [...] was last reviewed 2021. Testing performed by: [address] [address] Blood 01/13/2025 10:0 0 AM CDT 01/13/2025 10:02 AM CDT us Ramy Aguilera MD LAB BLOOD ORDERABLES Final R esult JOSELYN [facility] Department of Laboratories [place], [place] [id number] * (ABNORMAL) Differential, auto (01/13/2025 10:00 AM CDT) Neutrophil abs 1.44(L) 1.50 - 6.50 K/cumm Comment:Testing performed by : [address] [address] Imm gran abs 0.03 0.00 - 0.10 K/cumm JOSELYN Comment:Testing performed by : [address] [address] Lymphocyte abs 17.55(H) 0.80 - 3.30 K/cumm JOSELYN Comment:Testing performed by : [address] [address] Monocyte abs 0.33 0.20 - 0.80 K/cumm JOSELYN Comment:Testing performed by : [address] [address] Eosinophil abs 0.04 0.00 - 0.50 K/cumm JOSELYN Comment:Testing performed by : [address] [address] Basophil abs 0.10 0.00 - 0.10 K/cumm JOSELYN Comment:Testing performed by : [address] [address] Neutrophil pct 7.4 % [facility] Comment: Interpretive Data Percent cell count reference ranges are not reported, since discordance with absolute values may lead to misinterpretation of CBC data. Current Interpretive Data was last revised on 2017. Testing performed by: [address] [address] Imm gran pct 0.2 % [facility] Comment: Interpretive Data Percent cell count reference ranges are not reported, since discordance with absolute values may lead to misinterpretation of CBC data. Current Interpretive Data was last revised on 2017. Testing performed by: [address] [address] Lymphocyte pct 90.0 % [facility] Comment: Interpretive Data Percent cell count reference ranges are not reported, since discordance with absolute values may lead to misinterpretation of CBC data. Current Interpretive Data was last revised on 2017. Testing performed by: [address] [address] Monocyte pct 1.7 % [facility] Comment: Interpretive Data Percent cell count reference ranges are not reported, since discordance with absolute values may lead to misinterpretation of CBC data. Current Interpretive Data was last revised on 2017. Testing performed by: [address] [address] Eosinophil pct 0.2 % [facility] Comment: Interpretive Data Percent cell count reference ranges are not reported, since discordance with absolute values may lead to misinterpretation of CBC data. Current Interpretive Data was last revised on 2017. Testing performed by: [address] [address] Basophil pct 0.5 % [facility] Comment: Interpretive Data Percent cell count reference ranges are not reported, since discordance with absolute values may lead to misinterpretation of CBC data. Current Interpretive Data was last revised on 2017. Testing performed by: [address] [address] Blood 01/13/2025 10:0 0 AM CDT 01/13/2025 10:02 AM CDT us Ramy Aguilera MD LAB BLOOD ORDERABLES Final R esult [facility] [address] [facility] [place] [address] * (ABNORMAL) CBC with auto differential (01/13/2025 10:00 AM CDT) WBC 19.49(H) 3.80 - 9.90 K/cumm Comment:Testing performed by : [address] [address] Hgb 8.1(L) 11.9 - 15.5 g/dL JOSELYN Comment:Testing performed by : [address] [address] Hct 25.4(L) 35.6 - 45.5 % JOSELYN Comment:Testing performed by : [address] [address] Plt 108(L) 150 - 400 K/cumm JOSELYN Comment:Testing performed by : [address] [address] MPV 8.8(L) 9.1 - 12.3 fL JOSELYN Comment:Testing performed by : [address] [address] RBC 2.77(L) 3.90 - 5.20 M/cumm JOSELYN Comment:Testing performed by : [address] [address] MCV 91.7 81.3 - 96.4 fL JOSELYN Comment:Testing performed by : [address] [address] MCH 29.2 27.1 - 33.3 pg JOSELYN Comment:Testing performed by : [address] [address] MCHC 31.9(L) 32.3 - 35.7 g/dL JOSELYN Comment:Testing performed by : [address] [address] RDW CV 17.9(H) 11.1 - 14.9 % JOSELYN Comment:Testing performed by : [address] [address] RDW SD 59.7(H) 35.7 - 48.1 fL JOSELYN Comment:Testing performed by : [address] [address] NRBC abs 0.02(H) 0.00 - 0.01 K/cumm JOSELYN Comment:Testing performed by : [address] [address] ANC Prelim 1.44(L) 1.50 - 6.50 K/cumm JOSELYN Comment: Interpretive Data The rapid ANC is a preliminary automated count and may vary from the final ANC (Neut Abs) reported in the WBC differential that follows. Current interpretive data was last revised 2024. Testing performed by: [address] [address] Blood 01/13/2025 10:0 0 AM CDT 01/13/2025 10:02 AM CDT Ramy Aguilera MD LAB BLOOD ORDERABLES Edited Result - Final [facility] [address] [facility] Department of Laboratories [place], [place] [id number] * hCG, blood, quantitative (01/13/2025 10:00 AM [...] last revised on 2023 Testing performed by: [address] [address] Blood 01/13/2025 10:0 0 AM CDT 01/13/2025 10:18 AM CDT us Ramy Aguilera MD LAB BLOOD ORDERABLES Final R esult [facility] [address] [facility] [place] [address] * (ABNORMAL) Comprehensive metabolic panel (01/13/2025 10:00 AM CDT) Sodium 138 135 - 145 mmol/L Comment:Testing performed by : [address] [address] Potassium, pl 3.2(L) 3.3 - 4.9 mmol/L JOSELYN Comment:Testing performed by : [address] [address] Chloride 98 97 - 110 mmol/L JOSELYN Comment:Testing performed by : [address] [address] CO2 26 22 - 32 mmol/L JOSELYN Comment:Testing performed by : [address] [address] Anion gap 14 2 - 15 mmol/L JOSELYN Comment:Testing performed by : [address] [address] BUN 6 6 - 25 mg/dL JOSELYN Comment:Testing performed by : [address] [address] Creatinine 0.70 0.60 - 1.10 mg/dL JOSELYN Comment:Testing performed by : [address] [address] Glucose 131 70 - 199 mg/dL JOSELYN [...] was last revised 2022. Testing performed by: [address] [address] Calcium 9.0 8.5 - 10.3 mg/dL JOSELYN Comment:Testing performed by : [address] [address] Bilirubin, total 0.5 0.1 - 1.2 mg/dL JOSELYN Comment:Testing performed by : [address] [address] Protein, pl 5.8(L) 6.5 - 8.5 g/dL JOSELYN Comment:Testing performed by : [address] [address] Albumin 3.8 3.5 - 5.0 g/dL JOSELYN Comment:Testing performed by : [address] [address] Alk phos 238(H) 40 - 130 Units/L JOSELYN Comment:Testing performed by : [address] [address] ALT 17 7 - 45 Units/L JOSELYN Comment:Testing performed by : [address] [address] AST 30 10 - 45 Units/L JOSELYN Comment:Testing performed by : [address] [address] Blood 01/13/2025 10:0 0 AM CDT 01/13/2025 10:02 AM CDT us Ramy Aguilera MD LAB BLOOD ORDERABLES Final R esult JOSELYN [address] [facility] Department of Laboratories [place], [place] [id number] from Last 3 Months Additional Health Concerns Infection Onset Date Last Indicated C. difficile 11/18/2024 11/18/2024 Insurance [facility] Advance Directives For more information, please contact: [phone] * Full Code (Latest Code Status on File) Date Activated Date Inactivated Comments 09/22/2024 9:00 PM 09/24/2024 10:30 PM * Full Code Date Activated Date Inactivated Comments 09/17/2024 2:33 PM 09/17/2024 11:31 PM Care Teams Machine Coremaker Relationship Specialty Start Date End Date Satya Fernandez MD [address] [facility] [place] [address] PCP - General Internal Medicine 10/21/24 Ramy Aguilera MD [address] [place] [address] Medical Oncologist/Tearoom Hostess Internal Medicine 09/23/24
--- OUTSIDE RECORDS SUMMARY | 2025-03-25 15:49 | XMS_ITS | Encounter Summary ---
Author Organization [facility] Address [address] [facility] [place] [address] Care Team Providers Care Revenue Enforcement Agent Name Role Phone Unavailable Primary Care Provider Unavailabl e Encounter Details Date Type Department Care Team (Late st Contact Info) Description 12/19/2022 Lab Requisition [facility] - Pathology Lab [address] [place] [address] Ishan Escobedo MD [address] [phone] Illness, unspecified Social History Tobacco [...] CDT) Case Report Surgical Pathology Report Case: [id number] Authorizing Provider: Ishan Escobedo MD Collected: 12/18/2022 09:00 AM Ordering Location: [facility] Care Pathology Lab Received: [...] CD10 co-expression. Axillary lymph node, flow cytometry ([id number]): - [place] light chain restricted CD10+ B-cell population detected (~99% of overall events) Also received from [facility] is a peripheral smear showing circulating follicular lymphoma cells with occasional nuclear clefts. The peripheral blood is involved by follicular lymphoma. 12/19/2022 3:33 PM CDT [facility] PATHOLOGY [facility] Clinical History Suspect lymphoma. 12/19/2022 3:33 PM [facility] Materials Received Received are 4 slide(s) and 1 block labeled [id number] along with a copy of the outside pathology report. The materials originate from [facility], [address] [place] [address]. All original materials are returned to the referring institution, along with a copy of our final report. 12/19/2022 3:33 PM T [facility] Pathologist Location at [facility] 12/19/2022 3:33 PM T [facility] Disclaimer The performance characteristics of all immunohistochemical and indirect immunofluorescence stains (if any) cited in this report were determined by the Histopathology [facility] of [facility]. Some of these tests were [...] attending (teaching) pathologist. 12/19/2022 3:33 PM T [facility] Embedded Images 12/19/2022 3:33 PM T [facility] LAB Pathology/Cytolo gy BIOPSY OF LYMPH NODE / Unknown 12/18/2022 9:00 AM CDT 12/19/2022 1:25 PM CDT us Ishan Escobedo MD LAB - PATHOLOGY/CYTOLOGY ORDERAB LES Final Result [facility] [address] [facility]. [address] [phone] documented in this encounter Visit Diagnoses Diagnosis Illness, unspecified documented in this encounter
--- OUTSIDE RECORDS SUMMARY | 2025-03-25 15:49 | XMS_ITS | Patient Health Record ---
Author Organization [facility] Address [address] [place] [address] Phone [phone] Care Team Providers Care Hogshead Stripper Name Role Phone Rebecca Satya Primary Care Provider [phone] Richard Fish APRN Unavailable [phone] Minerva Peacock Unavailable Allergies Allergen (clinical drug ingredient) Drug/Non Drug [...] FTY neg 14 Panel Urine Drug Screen Order date: [...] BUP POS 12 Panel Urine Drug Screen Order date: 07/08/2024 Reviewed date:07/12/2024 01:10:26 PM Interpretation: Performing Lab: Notes/Report: THC POS JULISA neg MOP (OPI) neg AMP POS MET POS BAR neg BZO neg MDMA neg MTD neg OXY neg PCP neg BUP POS 12 Panel Urine Drug Screen Order date: [...] PCP neg BUP pos Reason For Referral Referral Date 01/07/2025 Referral Status Open Reason boil in perineum Diagnosis 1 Boil (L02.92) Referral Organization [facility] Referring Provider First Name Satya Referring Provider Last Name Rebecca Referring Provider Speciality Internal M edicine Referred Provider Specialty Surgery General Notes Neda GUERO, Beena Beltran 01/2025 02:12:27 PM >confirmed taking clients insurance referral faxed letter mailed Clinical Notes [facility], [address] [facility] [address], [facility], , fax [phone] Referral Priority Urgent Addressed Referral details can [...] MG Tablet 1 tablet as needed Orally every 4 hours; Duration: 15 days As needed severe pain 03/23/2025 Anxiety (ICD_10 - F41.9) Active Montelukast Sodium [...] Notes Goals Interventions 10/13/19 25 PRAPARE (LOINC: 67388-7) Total Score: 6 What was your release date? 07/01/19 19 Date Completed/Updated: 07/02/2018 What is your current housing situation? 06842-0 I have housing (ZO98504-4) Are you worried about losing your housing? 66420-8 No (LA32-8) What is the highest level of school that you have finished? 25780-7 High school diploma or GED (EC10529-8) What is your current work situation? 13125-7 Unemployed and seeking work (RH06397-3) In the past year, have you o r any family members you live with been unable to get any of the following when it was really needed? Check all that apply 98684-1 I do not have problems meeting my needs Has lack of transportation k ept you from medical appointments, meetings, work or from getting things needed for daily living? 67910-8 No (LA32-8) How often do you see or talk to people that you care about and feel close to? (For example: talking to friends on the phone, visiting friends or family, going to gnosticist or club meetings) 23828-9 More than 5 times a week (XA02930-9) How stressed are you? Stress is when someone feels tense, nervous, anxious, or can\t sleep at night because their mind is troubled 73063-0 A little bit (EB69437-8) In the past year have you sp ent more than 2 nights in a row in a correction, fdc, skilled nursing center, or juvenile correctional facility? 51941-9 Yes (LA33-6) Do you feel physically and e motionally safe where you currently live? 49859-2 Yes (LA33-6) In the past year, have you b een afraid of your partner or ex-partner? 77687-1 No (LA32-8) Are you a refugee? No What country are you from? [facility] PRAPARE Score: 6 Social History Miscellaneous Social [...] W/U Status Risk Notes Problem Tobacco user (492888132) Nicotine dependence, unspecified, uncomplicated (F17.200) Added On:2024 Active confirmed Problem Chronic rhinitis (06893895) Chronic rhinitis (J31.0) Added On:2024 Active confirmed Problem Anxiety (12752174) Anxiety (F41.9) Added On:2024 Active confirmed Problem Exacerbation of asthma (255129049) Asthma exacerbation (J45.901) Added On:2023 Active confirmed Problem Mild intermittent asthma (920675268) Mild intermittent asthma without complication (J45.20) Added On:2023 Active confirmed Problem Tobacco use (666508820) Tobacco use disorder (F17.200) Added On:2023 Active confirmed Problem Lymphoma involves multiple lymph node regions (finding) (795760878) Lymphoma of lymph nodes of multiple regions, 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) Added On:2023 Active confirmed Problem Opioid use disorder (6420326109) Opioid use disorder (F11.99) Added On:2018 Active confirmed Vital Signs Vital Sign Value Notes Appt Date Heart Rate 72 /min 03/07/2025 Temperature 98.5 degrees Fahrenheit 06/2024 Respiratory Rate 16 /min 03/07/2025 Blood pressure diastolic 68 mm Hg 04/2024 Oximetry 100 % 03/07/2025 Height 62 in 03/07/2025 Blood pressure systolic 106 mm Hg 04/2024 Weight 112.2 lbs 03/07/2025 BMI 20.52 kg/m2 03/07/2025 Encounters Date Time Type Facility Location Provider Diagnosis 05/13/19 25 01:00 PM Office Visit, Est Pt., Level 3 (41476) [address] [place] [address] Minerva Mcallistereliezer Patient underweight R63.6 ; Opioid use disorder F11.99 ; Non-tobacco user Z78.9 and Nutritional counseling Z71.3 05/27/19 25 02:00 PM Office Visit, Est Pt., Level 3 (91302) [facility] [place] [address] Richard Fish Opioid use disorder F11.99 and Nicotine dependence, unspecified, uncomplicated F17.200 07/09/19 25 02:20 PM Office Visit, Est Pt., Level 3 (81663) [facility] [place] [address] Nguyenia Abe Opioid use disorder F11.99 and Nicotine dependence, unspecified, uncomplicated F17.200 08/20/19 25 02:00 PM Office Visit, Est Pt., Level 3 (68488) [facility] [place] [address] Nguyenbrissa Mendosanila Opioid use disorder F11.99 and Tobacco use disorder F17.200 10/02/19 09:40 AM Office Visit, Est Pt., Level 3 (46758) [facility] [place] [address] Satya Fernandez Opioid use disorder F11.99 ; Lymphoma of lymph nodes of multiple regions, unspecified lymphoma type C85.98 ; Tobacco use disorder F17.200 and Anxiety F41.9 10/13/19 01:40 PM Telehealth Office Visit, Est Pt., Level 3 (95228) [address] [address] Satya Fernandez Opioid use disorder F11.99 ; Lymphoma of lymph nodes of multiple regions, unspecified lymphoma type C85.98 and Anxiety F41.9 11/12/19 01:20 PM Office Visit, Est Pt., Level 3 (33784) [address] [address] Satya Fernandez Lymphoma of lymph nodes of multiple regions, unspecified lymphoma type C85.98 ; Opioid use disorder F11.99 and Anxiety F41.9 12/11/19 10:20 AM Office Visit, Est Pt., Level 3 (82347) [address] [address] Satya Fernandez Opioid use disorder F11.99 ; Anxiety F41.9 and Diarrhea R19.7 01/08/20 11:00 AM Office Visit, Est Pt., Level 4 (35171) [address] [address] Satya Fernandez Opioid use disorder F11.99 ; Anxiety F41.9 ; Boil L02.92 and Lymphoma of lymph nodes of multiple regions, unspecified lymphoma type C85.98 03/07/20 25 09:40 AM Office Visit, Est Pt., Level 3 (29383) [facility] [address] [facility] [place] [address] Satya Fernandez Anxiety F41.9 ; Opioid use disorder F11.99 ; Lymphoma of lymph nodes of multiple regions, unspecified lymphoma type C85.98 and Chronic rhinitis J31.0 03/18/20 25 04:26 PM Telephone Encounter [address] [place] [address] Satya Fernandez 09/25/19 25 03:16 PM Telephone Encounter [address] [place] [address] [place] [address] Richard Fish 10/14/19 04:28 PM Telephone Encounter [address] [address] [address] [facility] [place] [place] [address] Satya Alvaradoner 10/29/19 25 02:07 PM Telephone Encounter [address] [address] [place] [address] Richard Fish 11/04/19 25 09:04 AM Telephone Encounter [address] [place] [address] Satya Alvaradoner UTI symptoms R39.9 11/30/19 25 10:40 AM Telephone Encounter [address] [place] [address] Satya Fernandez Anxiety F41.9 01/04/20 25 11:14 AM Telephone Encounter [address] [address] [place] [address] Satya Alvaradoner 01/05/20 25 03:50 PM Telephone Encounter [address] [place] [address] Satya Fernandez Anxiety F41.9 01/12/20 25 01:46 PM Telephone Encounter [address] [place] [address] Satya Fernandez Anxiety F41.9 01/13/20 25 01:23 PM Telephone Encounter [address] [place] [address] Satya Fernandez 03/23/20 25 01:13 PM Telephone Encounter [facility] [address] [facility] [place] [place] [address] Satya Fernandez 09/28/19 10:47 AM Web Encounter [facility] [place] [place] [address] Richard Fish 10/12/19 11:14 AM Web Encounter [facility] [place] [place] [address] Satya Fernandez 10/21/19 11:23 PM Web Encounter [address] [address] [place] [address] Satya Fernandez Lymphoma of lymph nodes of multiple regions, unspecified lymphoma type C85.98 ; Anxiety F41.9 and Opioid use disorder F11.99 10/26/19 09:41 AM Web Encounter [facility] [address] [facility] [place] [place] [address] Satya Fernandez 10/26/19 09:44 AM Web Encounter [address] [address] [address] [facility] [place] [address] Satya Fernandez 10/26/19 09:44 AM Web Encounter [address] [address] [address] [facility] [place] [address] Satya Fernandez 10/26/19 10:08 AM Web Encounter [address] [address] [address] [facility] [place] [address] Satya Fernandez 10/26/19 01:59 PM Web Encounter [facility] [place] [address] Satya Fernandez Lymphoma of lymph nodes of multiple regions, unspecified lymphoma type C85.98 ; Anxiety F41.9 and Opioid use disorder F11.99 10/27/19 11:50 AM Web Encounter [address] [address] [place] [address] Satya Fernandez 10/27/19 07:56 PM Web Encounter [address] [address] [place] [address] Satya Fernandez 11/24/19 03:12 AM Web Encounter [facility] [place] [address] Satya Fernandez Lymphoma of lymph nodes of multiple regions, unspecified lymphoma type C85.98 and Anxiety F41.9 12/08/19 11:26 AM Web Encounter [address] [address] [place] [address] Satya Fernandez 12/08/19 11:26 AM Web Encounter [address] [address] [place] [address] Satya Fernandez Lymphoma of lymph nodes of multiple regions, unspecified lymphoma type C85.98 12/20/19 10:59 AM Web Encounter [facility] [place] [address] Satya Fernandez Lymphoma of lymph nodes of multiple regions, unspecified lymphoma type C85.98 12/22/19 02:08 PM Web Encounter [address] [address] [place] [address] Satya Fernandez 12/28/19 10:47 AM Web Encounter [address] [address] [place] [address] Satya Fernandez Lymphoma of lymph nodes of multiple regions, unspecified lymphoma type C85.98 and Anxiety F41.9 12/28/19 10:47 AM Web Encounter [address] [address] [place] [address] Satya Fernandez 01/04/20 02:05 AM Web Encounter [address] [place] [address] Satya Fernandez Lymphoma of lymph nodes of multiple regions, unspecified lymphoma type C85.98 01/11/20 11:14 AM Web Encounter [address] [place] [address] Satya Fernandez 01/11/20 11:14 AM Web Encounter [address] [place] [address] Satya Fernandez 01/11/20 11:14 AM Web Encounter [address] [place] [address] Satya Fernandez Opioid use disorder F11.99 and Anxiety F41.9 01/12/20 02:11 PM Web Encounter [address] [address] Satya Fernandez 01/13/20 12:17 PM Web Encounter [address] [address] Satya Fernandez 01/13/20 12:20 PM Web Encounter [address] [address] Satya Fernandez 01/13/20 01:26 PM Web Encounter [address] [address] Satya Fernandez 01/25/20 02:08 AM Web Encounter [address] [address] Satya Fernandez 01/25/20 02:08 AM Web Encounter [address] [address] Satya Fernandez 01/25/20 02:17 PM Web Encounter [address] [address] Satya Fernandez 01/26/20 11:02 AM Web Encounter [address] [address] Satya Fernandez 01/26/20 01:11 PM Web Encounter [address] [address] Satya Fernandez 01/26/20 01:11 PM Web Encounter [address] [address] Satya Fernandez Anxiety F41.9 02/01/20 11:11 AM Web Encounter [address] [address] Satya Fernandez Opioid use disorder F11.99 and Anxiety F41.9 02/01/20 11:11 AM Web Encounter [address] [place] [address] Satya Fernandez 02/09/20 12:11 AM Web Encounter [address] [address] Satya Fernandez 02/09/20 12:11 AM Web Encounter [address] [address] Satya Fernandez 02/09/20 12:11 AM Web Encounter [address] [address] Satya Alvaradoner Anxiety F41.9 02/09/20 12:11 AM Web Encounter [address] [address] Satya Fernandez Opioid use disorder F11.99 02/09/20 09:26 PM Web Encounter [address] [address] Satya Fernandez 02/09/20 09:26 PM Web Encounter [address] [address] Satya Fernandez 02/22/20 25 09:08 AM Web Encounter [address] [address] Satya Fernandez 02/22/20 09:08 AM Web Encounter [address] [address] Satya Fernandez Anxiety F41.9 03/08/20 02:20 PM Web Encounter [address] [address] Satya Fernandez 03/23/20 25 11:20 AM Web Encounter [address] [address] Satya Fernandez Anxiety F41.9 Assessments Encounter Date Diagnosis (ICD Code) Assessment Notes Treat ment Notes Section Notes 10/01/2024 Opioid use disorder (ICD-10 - F11.99) 11/03/2024 UTI symptoms (ICD-10 - R39.9) 10/25/2024 Lymphoma of lymph nodes of multiple regions, unspecified lymphoma type (ICD-10 - C85.98) 11/23/2024 Lymphoma of lymph nodes of multiple regions, unspecified lymphoma type (ICD-10 - C85.98) 11/29/2024 Anxiety (ICD-10 - F41.9) 12/07/2024 Lymphoma of lymph nodes of multiple regions, unspecified lymphoma type (ICD-10 - C85.98) 12/10/2024 Anxiety (ICD-10 - F41.9) 11/11/2024 Lymphoma of [...] - F41.9) 01/07/2025 Anxiety (ICD-10 - F41.9) 01/10/2025 Opioid use disorder (ICD-10 - F11.99) 01/11/2025 Anxiety (ICD-10 - F41.9) 01/25/2025 Anxiety (ICD-10 - F41.9) 01/31/2025 Opioid use disorder (ICD-10 - F11.99) 02/08/2025 Anxiety (ICD-10 - F41.9) 02/08/2025 Opioid use disorder (ICD-10 - F11.99) 02/21/2025 Anxiety (ICD-10 - F41.9) 01/07/2025 Opioid use disorder (ICD-10 - F11.99) 03/07/2025 Anxiety (ICD-10 - F41.9) 03/07/2025 Opioid use disorder (ICD-10 - F11.99) 03/23/2025 Anxiety (ICD-10 - F41.9) 10/01/2024 Lymphoma of lymph nodes of multiple regions, unspecified lymphoma type (ICD-10 - C85.98) 10/12/2024 Lymphoma of lymph nodes of multiple regions, unspecified lymphoma type (ICD-10 - C85.98) 10/12/2024 Opioid use disorder (ICD-10 - F11.99) 10/20/2024 Lymphoma of lymph nodes of multiple regions, unspecified lymphoma type (ICD-10 - C85.98) 05/13/2024 Opioid use disorder (ICD-10 - F11.99) 05/27/2024 Nicotine dependence, unspecified, uncomplicated (ICD-10 - F17.200) 05/27/2024 Opioid use disorder (ICD-10 - F11.99) 07/08/2024 Opioid use disorder (ICD-10 - F11.99) 08/19/2024 Tobacco use disorder (ICD-10 - F17.200) 08/19/2024 Opioid use disorder (ICD-10 - F11.99) 05/13/2024 Patient underweight (ICD-10 - R63.6) 05/13/2024 Non-tobacco user (ICD-10 - Z78.9) 07/08/2024 Nicotine dependence, unspecified, uncomplicated (ICD-10 - F17.200) 10/20/2024 Anxiety (ICD-10 - F41.9) 10/01/2024 Tobacco use disorder (ICD-10 - F17.200) 10/12/2024 Anxiety (ICD-10 - F41.9) 10/25/2024 Anxiety (ICD-10 - F41.9) 03/07/2025 Lymphoma of lymph nodes of multiple regions, unspecified lymphoma type (ICD-10 - C85.98) 01/10/2025 Anxiety (ICD-10 - F41.9) 01/31/2025 Anxiety (ICD-10 - F41.9) 01/07/2025 Boil (ICD-10 - L02.92) 12/27/2024 Anxiety (ICD-10 - F41.9) 11/23/2024 Anxiety (ICD-10 - F41.9) 12/10/2024 Diarrhea (ICD-10 - R19.7) 11/11/2024 Anxiety (ICD-10 - F41.9) 10/25/2024 Opioid use disorder (ICD-10 - F11.99) 01/07/2025 Lymphoma of lymph nodes of multiple regions, unspecified lymphoma type (ICD-10 - C85.98) 03/07/2025 Chronic rhinitis (ICD-10 - J31.0) 10/20/2024 Opioid use disorder (ICD-10 - F11.99) 10/01/2024 Anxiety (ICD-10 - F41.9) 05/13/2024 Nutritional counseling (ICD-10 - Z71.3) 05/13/2024 [...] May contact office with questions or concerns. 07/08/2024 Other Patient agrees to take medication [...] voiced understanding of all. Plan Of Treatment Next Appt Details Provider Name:Satya Fernandez , 03/28/2025 10:40:00 AM, [address], [place], [address], Insurance Providers Payer Name Payer Address Payer Phone Subscriber Number Group Number Insured Name Patient Relationship to Insured Coverage Start Date Coverage End Date [employer] [address] [place] [address] [id number] Soha Marrero Self - patient is the insured 2 [employer] [address] [place] [address] [id number] Soha Marrero Self - patient is the insured 4 Medical (General) History Medical History History ICD Code Bipolar 1 Disorder Alcohol Use Disorder Lymphoma Surgical History Surgery Date(Month/Year) Ectopic Open Chest Surgery Chemo Port 2022 Hospitalization History Reason Date(Month/Year) Clotilde huggins
--- OUTSIDE RECORDS SUMMARY | 2025-03-25 15:49 | XMS_ITS | Clinical Summary ---
Author Organization [facility] Address [address] [address] Care Team Providers Care Skiing Teacher Name Role Phone Unavailable Primary Care [...] Pain, Mild. Active naloxone (NARCAN) 4 mg/spray [place], Non-Aerosol EMERGENCY USE ONLY: Administer 1 spray [...] Encounters Date Type Department Care Team Description 03/15/2025 External Device Data [facility] ABSTRACTION Provider, Abstract 2025 External Device Data [facility]STRACTION Provider, [...] Comments Blood Pressure 109/66 04/17/2023 8:40 AM HEMATOLOGY SUPERVISOR Pulse 111 04/17/2023 8:40 AM HEMATOLOGY SUPERVISOR Temperature 36.6 C (97.9 F) 04/17/2023 8:40 AM HEMATOLOGY SUPERVISOR Respiratory Rate 10 04/17/2023 8:40 AM HEMATOLOGY SUPERVISOR Oxygen Saturation 92% 03/27/2023 11:06 AM HEMATOLOGY SUPERVISOR Inhaled Oxygen Concentration - - Weight 51.3 kg (113 lb) 04/17/2023 8:40 AM HEMATOLOGY SUPERVISOR Height 162.6 cm (5' 4) 03/24/2023 6:27 PM HEMATOLOGY SUPERVISOR Body Mass Index 19.4 03/24/2023 6:27 PM HEMATOLOGY SUPERVISOR Plan of Treatment Health Maintenance Due Date Last Done Comments HEPATITIS B VACCINES (1 of 3 - 19+ 3-dose series) 02/21/2011 HPV/Cotest (21-29) 02/21/2013 HPV/Cotest (30-65) 02/21/2022 INFLUENZA VACCINE (#1) 2024 04/10/2024, 2021 COVID-19 Vaccine (3 - 2024- season) 2024, 11/06/2020 CERVICAL CANCER SCREENING 07/30/2027 PAP SMEAR 07/30/2027 07/29/2024 DTAP/TDAP/TD VACCINES (3 - Td or Tdap) 02/07/2032, 11/05/2020 HPV VACCINES (No Doses Required) Completed Insurance [place] [facility] [employer] Advance Directives For more information, please contact: [phone] * Full Code (Latest Code Status on File) Date Activated Date Inactivated Comments 03/25/2023 1:09 AM 03/26/2023 3:29 PM
[2025-03-25 15:57] VITALS: BP 106/63; PULSE 120; RESP 20; TEMP 38.2; O2SAT 98
--- OUTSIDE RECORDS SUMMARY | 2025-03-25 16:32 | XMS_ITS | Encounter Summary ---
Author Organization [facility] Address [address] [place] [address] Care Team Providers Care Exchange Teller Name Role Phone None, Provider Primary Care Provider Unavaila ble Encounter Details Date Type Department Care Team (Late st Contact Info) Description 01/27/2025 Results Follow-Up [facility] [address] [place], [place] [id number] Thalia Hall FNP [address] [place], [place] [id number] Pathology Social History Tobacco Use Types Packs/Day Years Used Date Smoking Tobacco: Every Day Cigarettes 1 14 Started: 2011 Passive Smoke Exposure: Current Alcohol Use Standard Drinks/Week Comments Yes 4 (1 standard drink = 0.6 oz pure alcohol) patient states she takes shots of fireball to help with pain when she gets desperate. Comments No Sex and Gender Information Value Date Recorded Sex Assigned at Female 02/09/2025 4:27 PM FUNERAL PLANNER Legal Sex Female 7:16 PM CDT Gender Identity Not on file Sexual Orientation Not on file documented as of this encounter Plan of Treatment Not on file documented as of this encounter Visit Diagnoses Not on filedocumented in this encounter Additional Health Concerns Infection Onset Date Last Indicated Resolved Time Respiratory Rule Out 03/21/2025 03/21/2025 025 9:21 PM FUNERAL PLANNER documented as of this encounter Care Teams Exchange Teller Relationship Specialty Start Date End Date None, Provider, PCP - General UNKNOWN PHYSICIAN SPECIALTY 11/19/22 documented as of this encounter
--- OUTSIDE RECORDS SUMMARY | 2025-03-25 16:32 | XMS_ITS | Encounter Summary ---
Author Organization [facility] Address [address] [place] [place] [address] Care Team Providers Care Starbucks Barista Name Role Phone Unavailable Primary Care Provider Unavailabl e Encounter Details Date Type Department Care Team (Late st Contact Info) Description 12/18/2022 Lab Requisition [facility] - Pathology Lab [address] [place] [address] Ishan Escobedo MD [address] [facility] [address] [place] [address] Generalized enlarged lymph nodes Social History [...] AM CDT) Case Report Flow Cytometry Case: [id number] Authorizing Provider: Ishan Escobedo MD Collected: 12/18/2022 09:00 AM Ordering Location: [facility] Care Pathology Lab Received: 12/18/2022 03:11 PM Pathologist: Giovanni Chow MD Specimen: Axillary Lymph Node, RIGHT 12/18/2022 5:15 PM CDT [facility] Final Diagnosis Axillary lymph node, flow cytometry: - Wetmore light chain restricted CD10+ B-cell population detected (~99% of overall events) 12/18/2022 5:15 PM CDT [facility] at 1714 CDT Flow Cytometry Interpretation Viability: 87%. B-cells: monoclonal, kappa-restricted, expressing CD19, CD20, and CD10. T-cells: not increased, no immunophenotypic aberrancy. A cytospin prepared from the flow cytometry specimen has been reviewed for nurse quality purposes. 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 Histologic slides are pending for final subclassification. 12/18/2022 5:15 PM [facility] Flow Cytometry Results Differential Result Comment Flow Cell Count /uL 9,000 Total Viability % 87.0 Lymphocytes % 99 Dim CD45 Region % 0 Monocytes % 0 Granulocytes % 1 12/18/2022 5:15 PM [facility] Reason for test Generalized enlarged lymph nodes 785.6 12/18/2022 5:15 PM [facility] Client Specimen ID # [id number] 12/18/2022 5:15 PM [facility] Number of markers 16 were performed. A-2 Flow CD3 A-4 Flow CD10 A-6 Flow CD20 A-7 Flow CD23 A-12 Flow CD2 A-13 Flow CD4 A-16 Flow CD1a A-3 Flow CD5 A-5 Flow CD19 A-8 Flow CD34 A-9 Flow CD45 A-14 Flow CD7 A-15 Flow CD8 A-17 Flow CD30 A-10 Wetmore+CD19+ A-11 Lambda+CD19+ 12/18/2022 5:15 PM [facility] Pathologist Location at [facility] 12/18/2022 5:15 PM [facility] Disclaimer Test performed at [facility], [address] [place] [address], [address]. *The established laboratory minimum viability is 70%. [...] PATHOLOGY LAB Embedded Images 5:15 PM CDT [facility] Pathology/Cytolo gy AXILLARY LYMPH NODE STRUCTURE / Unknown 12/18/2022 9:00 AM CDT 12/18/2022 3:11 PM CDT us Ishan Escobedo MD LAB - PATHOLOGY/CYTOLOGY ORDERAB LES Final Result [facility] [address] [phone] documented in this encounter Visit Diagnoses Diagnosis Generalized enlarged lymph nodes Enlargement of lymph nodes documented in this encounter
--- OUTSIDE RECORDS SUMMARY | 2025-03-25 16:32 | XMS_ITS | Encounter Summary ---
Author Organization [facility] Address [address] [place] [address] Phone Care Team Providers Care Nursery Attendant Name Role Phone Gabriel Salmeron MD Unavailable Brooks Sosa MD Unavailable [phone] Provider, None Primary Care Provider UnavailKervin Rubi MD Unavailable Reason for Visit * Reason Comments Medication Refill Encounter Details Date Type Department Care Team (Late st Contact Info) Description 02/21/2025 Refill [facility] Oncology Services [address] [place] [address] Gabriel Salmeron MD [address] [place] [address] Medication Refill Social History Tobacco Use Types Packs/Day Years Used Date Smoking Tobacco: Every Day Cigarettes 1 15 Started: 04/07/2010 Passive Smoke Exposure: Current Smokeless Tobacco: Never Alcohol Use Standard Drinks/Week Comments Yes 2 (1 standard drink = 0.6 oz pur e alcohol) occasional [facility] Utilities Answer Date Recorded In the [...] week 05/07/2023 How often do you attend adventist or lutheran serv ices? Never 05/07/2023 Do you belong to any clubs o r organizations such as adventist groups, unions, fraternal or athletic groups, or [...] Total Score - Questions 1-9 9 06/06 [facility] - Occupational [...] place to sleep or slept in a snf (including now)? No 05/07/2023 Sexually Active Control Partners Comments Yes Male Comments Unknown Sex and Gender Information Value Date Recorded Sex Assigned at Female 05/21/2023 11:44 AM INCIDENT RESPONSE COORDINATOR Legal Sex Female 5:17 PM CDT Gender Identity Female 05/21/2023 11:44 AM INCIDENT RESPONSE COORDINATOR Sexual Orientation Not on file documented as of this encounter Miscellaneous Notes * Telephone Encounter - Koffi Collins RN - 02/21/2025 1:53 PM CST Pt is no longer with our practice. DENT RESPONSE COORDINATOR documented in this encounter Plan of Treatment [...] Ready to change Department associated with goal: [facility] Steps to achieve [...] documented as of this encounter Care Teams Nursery Attendant Relationship Specialty Start Date End Date Provider, None MD PCP - General 06/17/24 Gabriel Salmeron MD [address] [place] [address] Consulting Physician Medical Oncology 05/23/23 Brooks Sosa MD [address] [place] [id number] Consulting Physician Neurology 01/22/24 Kervin Jiang MD [address] [phone] Consulting Physician General Surgery 06/11/24 documented as of this encounter
--- OUTSIDE RECORDS SUMMARY | 2025-03-25 16:32 | XMS_ITS ---
Author Organization [facility] Address [address] [place] [address] Phone Care Team Providers Care Bunghole Borer Name Role Phone Gabriel Salmeron MD Unavailable [phone] Brooks Sosa MD Unavailable [phone] Provider, None Primary Care Provider UnavailKervin Rubi MD Unavailable [phone] [facility] Status:Enrolled (Active) Program category:Social Drivers of Health/Community Resource Coordination Start date:05/05/2024 Enrollment date:05/05/2024 Related social drivers of health:Social Connections, Tobacco Use, Depression, Stress, Physical Activity, Utilities Continued Care and Services Coordination
--- OUTSIDE RECORDS SUMMARY | 2025-03-25 16:32 | XMS_ITS | Clinical Summary ---
Author Organization [facility] Address [address] [place] [address] Care Team Providers Care Fisheries Officer Name Role Phone Unavailable Primary Care Provider Unavailabl e Source Comments [facility] [employer],non-owned Affiliates and Associated Physician Practices is amultiple site organization consisting of ambulatory clinics and hospital sitesin [place], [place], [place] and [place]. This disclosure is being madepursuant to the Care Everywhere program and may not contain all information available regarding this patient. Last updated 17.[facility] [employer] Social History Tobacco Use Types Packs/Day Years [...] this topic Insurance [facility] SELF PAY NO INSURANCE Member Subscriber Plan / Payer (Ef fective for All Dates) Name:Soha Javier Member ID:Not on file Relation to Subscriber:Not on file Name:SOHA JAVIER Subscriber ID:Not on file (Home) Address: [address] [place] [address] Payer ID:Not on file Group ID:Not on file Type:Self Pay Address: [place], [place] [facility]
--- OUTSIDE RECORDS SUMMARY | 2025-03-25 16:32 | XMS_ITS | Clinical Summary ---
Author Organization [facility] Address [address] [facility] [place] [address] Care Team Providers Care Order Checker Packer Processer Name Role Phone Unavailable Primary Care Provider [...] Pain, Mild. Active naloxone (NARCAN) 4 mg/spray [place], Non-Aerosol EMERGENCY USE ONLY: Administer 1 spray [...] Blood Pressure 109/66 04/17/2023 8:40 AM SALES DEVELOPMENT EXECUTIVE Pulse 111 04/17/2023 8:40 AM SALES DEVELOPMENT EXECUTIVE Temperature 36.6 C (97.9 F) 04/17/2023 8:40 AM SALES DEVELOPMENT EXECUTIVE Respiratory Rate 10 04/17/2023 8:40 AM SALES DEVELOPMENT EXECUTIVE Oxygen Saturation 92% 03/27/2023 11:06 AM SALES DEVELOPMENT EXECUTIVE Inhaled Oxygen Concentration - - Weight 51.3 kg (113 lb) 04/17/2023 8:40 AM SALES DEVELOPMENT EXECUTIVE Height 162.6 cm (5' 4) 03/24/2023 6:27 PM SALES DEVELOPMENT EXECUTIVE Body Mass Index 19.4 03/24/2023 6:27 PM SALES DEVELOPMENT EXECUTIVE Plan of Treatment Health Maintenance Due Date [...] [place] [facility] Advance Directives For more information, please contact: [phone] * Full Code (Latest Code Status on File) Date Activated Date Inactivated Comments 03/25/2023 1:09 AM 03/26/2023 3:29 PM
--- OUTSIDE RECORDS SUMMARY | 2025-03-25 16:32 | XMS_ITS ---
Author Organization [facility] Address [address] [place] [address] Phone Care Team Providers Care Casket Upholsterer Name Role Phone Gabriel Salmeron MD Unavailable Brooks Sosa MD Unavailable [phone] Provider, None Primary Care Provider UnavailKervin Rubi [...] current use Anxiety 05/07/2023 Under care of correction service 05/07/2023 Overview (05/07/2023): Two previous stays at correction Child living with her parents Current Treatment [...] 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 Hx of correction time
--- OUTSIDE RECORDS SUMMARY | 2025-03-25 16:32 | XMS_ITS | Encounter Summary ---
Author Organization [facility] Address [address] [place] [address] Care Team Providers Care Computer Language Coder Name Role Phone Unavailable Primary Care Provider Unavailabl e Encounter Details Date Type Department Care Team (Late st Contact Info) Description 12/19/2022 Lab Requisition [facility] - Pathology Lab [address] [place] [address] Ishan Escobedo MD [address] [address] Illness, unspecified Social History Tobacco [...] CDT) Case Report Surgical Pathology Report Case: [id number] Authorizing Provider: Ishan Escobedo MD Collected: 12/18/2022 09:00 AM Ordering Location: [facility] Care Pathology Lab Received: [...] CD10 co-expression. Axillary lymph node, flow cytometry ([id number]): - [place] light chain restricted CD10+ B-cell population detected (~99% of overall events) Also received from [facility] is a peripheral smear showing circulating follicular lymphoma cells with occasional nuclear clefts. The peripheral blood is involved by follicular lymphoma. 12/19/2022 3:33 PM CDT [facility] PATHOLOGY LAB Clinical History Suspect lymphoma. 12/19/2022 3:33 PM [facility] PATH[facility] Materials Received Received are 4 slide(s) and 1 block labeled [id number] along with a copy of the outside pathology report. The materials originate from [facility], [address] [place] [id number]. All original materials are returned to the referring institution, along with a copy of our final report. 12/19/2022 3:33 PM T [facility] PATHOLOGY LAB Pathologist Location at [facility] 12/19/2022 3:33 PM T [facility] PATHOLOGY LAB Disclaimer The performance characteristics of all immunohistochemical and indirect immunofluorescence stains (if any) cited in this report were determined by the Histopathology Laboratory of [facility]. Some of these tests were developed [...] attending (teaching) pathologist. 12/19/2022 3:33 PM T [facility] PATHOLOGY LAB Embedded Images 12/19/2022 3:33 PM T [facility] PATHOLOGY LAB Pathology/Cytolo gy BIOPSY OF LYMPH NODE / Unknown 12/18/2022 9:00 AM CDT 12/19/2022 1:25 PM CDT us Ishan Escobedo MD LAB - PATHOLOGY/CYTOLOGY ORDERAB LES Final Result [facility] PATHOLOGY LAB [address] [facility] [phone] documented in this encounter Visit Diagnoses Diagnosis Illness, unspecified documented in this encounter
--- OUTSIDE RECORDS SUMMARY | 2025-03-25 16:32 | XMS_ITS | Clinical Summary ---
Author Organization [place] [id number] [facility] Address [address] [place] [address] Care Team Providers Care Mandarin Speaking Nanny Name Role Phone Ramy Aguilera MD Unavailable [phone] Satya Fernandez MD Primary Care Provider Allergies [...] - Plan to discharge patient with outpatient [facility] follow-up on 09/30/24. Assessment & Plan [...] - Plan to discharge patient with outpatient [facility] follow-up on 09/30/24. Assessment & Plan [...] Department Care Team Description 03/24/2025 10:46 PM BALL TRUING MACHINE OPERATOR - 03/24/2025 10:51 PM BALL TRUING MACHINE OPERATOR Emergency [facility] Emergency Department [address] [place] [address] Discharge Disposition: Left without being seen 03/17/2025 2:00 PM BALL TRUING MACHINE OPERATOR Clinical Support [facility] Medical Office Building 2 Radiation Oncology [address] [place] [address] Follicular lymphoma, unspecified follicular lymphoma type, unspecified body region (HCC) (Primary Dx) 03/17/2025 12:30 PM BALL TRUING MACHINE OPERATOR Infusion [address] [phone] Follicular lymphoma, unspecified follicular lymphoma type, unspecified body region (HCC) (Primary Dx); Prevention of chemotherapy-induced neutropenia 03/17/2025 12:00 PM BALL TRUING MACHINE OPERATOR Office Visit [facility] [address] [place] [phone] Ramy Aguilera MD Prevention of chemotherapy-induced neutropenia (Primary Dx); Follicular lymphoma, unspecified follicular lymphoma type, unspecified body region (HCC) 03/17/2025 11:30 AM BALL TRUING MACHINE OPERATOR Lab [address] [address] Follicular lymphoma, unspecified follicular lymphoma type, unspecified body region (HCC); Prevention of chemotherapy-induced neutropenia 03/16/2025 Orders Only [facility] Oncology [address] [place] [phone] Ramy Aguilera MD Follicular lymphoma, unspecified follicular lymphoma type, unspecified body region (HCC) (Primary Dx); Prevention of chemotherapy-induced neutropenia 03/08/2025 10:13 AM BALL TRUING MACHINE OPERATOR - 03/08/2025 11:59 PM BALL TRUING MACHINE OPERATOR Hospital Encounter [facility] OP Cardiac Testing [address] [place] [address] Follicular lymphoma, unspecified follicular lymphoma type, unspecified body region (HCC); Encounter for long-term (current) use of medications Discharge Disposition: Discharge to home or self care 02/24/2025 12:30 PM BALL TRUING MACHINE OPERATOR Clinical Support [facility] Medical Office Building 2 Radiation Oncology [address] [place] [address] Follicular lymphoma, unspecified follicular lymphoma type, unspecified body region (HCC) (Primary Dx) 02/24/2025 11:00 AM BALL TRUING MACHINE OPERATOR Infusion [address] [phone] Follicular lymphoma, unspecified follicular lymphoma type, unspecified body region (HCC) (Primary Dx); Diffuse follicle center lymphoma, unspecified body region (HCC); Prevention of chemotherapy-induced neutropenia 02/24/2025 10:30 AM BALL TRUING MACHINE OPERATOR Office Visit [facility] [address] [place] [phone] Ramy Aguilera MD Follicular lymphoma, unspecified follicular lymphoma type, unspecified body region (HCC) (Primary Dx); Prevention of chemotherapy-induced neutropenia; Diffuse follicle center lymphoma, unspecified body region (HCC) 02/24/2025 10:00 AM BALL TRUING MACHINE OPERATOR Lab [address] [address] Diffuse follicle center lymphoma, unspecified body region (HCC); Follicular lymphoma, unspecified follicular lymphoma type, unspecified body region (HCC); Prevention of chemotherapy-induced neutropenia 02/23/2025 Orders Only [facility] On[facility] [address] [place] [phone] Ramy Aguilera MD Follicular lymphoma, unspecified follicular lymphoma type, unspecified body region (HCC) (Primary Dx); Prevention of chemotherapy-induced neutropenia 02/10/2025 11:00 AM BALL TRUING MACHINE OPERATOR Infusion [facility] [place] at [address] [phone] Follicular lymphoma, unspecified follicular lymphoma type, unspecified body region (HCC) (Primary Dx); Prevention of chemotherapy-induced neutropenia 02/10/2025 10:30 AM BALL TRUING MACHINE OPERATOR Lab [facility] at [address] [address] Prevention of chemotherapy-induced neutropenia (Primary Dx); Follicular lymphoma, unspecified follicular lymphoma type, unspecified body region (HCC) 02/10/2025 Social Work [facility] [address] [place] [phone] Marycarmen Gray LCSW 02/03/2025 12:00 PM CDT Infusion [address] [phone] Follicular lymphoma, unspecified follicular lymphoma type, unspecified body region (HCC) (Primary Dx); Prevention of chemotherapy-induced neutropenia 02/03/2025 11:30 AM CDT Office Visit [facility] [address] [place] [phone] Ramy Aguilera MD Follicular lymphoma, unspecified follicular lymphoma type, unspecified body region (HCC) (Primary Dx); Prevention of chemotherapy-induced neutropenia 02/03/2025 11:00 AM CDT Lab [address] [address] Follicular lymphoma, unspecified follicular lymphoma type, unspecified body region (HCC); Prevention of chemotherapy-induced neutropenia 02/03/2025 Orders Only [facility] On[facility] [address] [place] [phone] Ramy Aguilera MD 01/18/2025 Social Work [facility] On[facility] [address] [place] [phone] Desirae Bates LCSW 01/13/2025 12:00 PM CDT Clinical Support [facility] Medical Office Building 2 Radiation Oncology [address] [place] [address] Follicular lymphoma, unspecified follicular lymphoma type, unspecified body region (HCC) (Primary Dx) 01/13/2025 10:30 AM CDT Infusion [address] [place] [phone] Prevention of chemotherapy-induced neutropenia (Primary Dx); Follicular lymphoma, unspecified follicular lymphoma type, unspecified body region (HCC) 01/13/2025 10:00 AM CDT Office Visit [facility] [address] [place] [phone] Ramy Aguilera MD Follicular lymphoma, unspecified follicular lymphoma type, unspecified body region (HCC) (Primary Dx); Prevention of chemotherapy-induced neutropenia 01/13/2025 9:30 AM CDT Lab [address] [address] Follicular lymphoma, unspecified follicular lymphoma type, unspecified body region (HCC); Prevention of chemotherapy-induced neutropenia 01/12/2025 Orders Only [facility] Oncology [address] [place] [phone] Ramy Aguilera MD 12/30/2024 Orders Only [address] [phone] Paulina German RPh from Last 3 Months [...] Comments Blood Pressure 106/65 03/24/2025 3:40 PM BALL TRUING MACHINE OPERATOR Pulse 123 03/24/2025 3:40 PM BALL TRUING MACHINE OPERATOR Temperature 37.9 C (100.3 F) 03/24/2025 3:40 PM BALL TRUING MACHINE OPERATOR Respiratory Rate 17 03/24/2025 3:40 PM BALL TRUING MACHINE OPERATOR Oxygen Saturation 95% 03/24/2025 3:40 PM BALL TRUING MACHINE OPERATOR Inhaled Oxygen Concentration - - Weight 49.9 kg (110 lb) 03/24/2025 3:40 PM BALL TRUING MACHINE OPERATOR Height 160 cm (5' 3) 03/24/2025 3:40 PM BALL TRUING MACHINE OPERATOR Body Mass Index 19.49 03/24/2025 3:40 PM BALL TRUING MACHINE OPERATOR Plan of Treatment Health Maintenance [...] LATERAL 2 VIEWS ED 03/24/2025 5:22 PM BALL TRUING MACHINE OPERATOR ECG 12-LEAD STAT 03/24/2025 4:05 PM BALL TRUING MACHINE OPERATOR BLOOD SMEAR REVIEW Routine 03/17/2025 11 :40 AM BALL TRUING MACHINE OPERATOR Follicular lymphoma, unspecified follicular lymphoma type, unspecified body region (HCC) Prevention of chemotherapy-induce d neutropenia EGFR STAT 03/17/2025 11:40 AM BALL TRUING MACHINE OPERATOR Follicular lymphoma, unspecified follicular lymphoma type, unspecified body region (HCC) Prevention of chemotherapy-induce d neutropenia DIFFERENTIAL AUTO Routine 03/17/2025 11: 40 AM BALL TRUING MACHINE OPERATOR Follicular lymphoma, unspecified follicular lymphoma type, unspecified body region (HCC) Prevention of chemotherapy-induce d neutropenia URIC ACID Routine 03/17/2025 11:40 AM BALL TRUING MACHINE OPERATOR Follicular lymphoma, unspecified follicular lymphoma type, unspecified body region (HCC) LACTATE DEHYDROGENASE Routine 03/17/2025 11:40 AM BALL TRUING MACHINE OPERATOR Follicular lymphoma, unspecified follicular lymphoma type, unspecified body region (HCC) CBC WITH AUTO DIFFERENTIAL Routine 03/17/2025 11:40 AM BALL TRUING MACHINE OPERATOR Follicular lymphoma, unspecified follicular lymphoma type, unspecified body region (HCC) Prevention of chemotherapy-induce d neutropenia COMPREHENSIVE METABOLIC PANEL STAT 03/17/2025 11:40 AM BALL TRUING MACHINE OPERATOR Follicular lymphoma, unspecified follicular lymphoma type, unspecified body region (HCC) Prevention of chemotherapy-induce d neutropenia HCG, BLOOD, QUANTITATIVE STAT 03/17/2025 11:40 AM BALL TRUING MACHINE OPERATOR Follicular lymphoma, unspecified follicular lymphoma type, unspecified body region (HCC) Prevention of chemotherapy-induce d neutropenia TRANSTHORACIC ECHO (TTE) COMPLETE W DOPPLER/CF WO CONTRAST Routine 03/08/2025 11:14 AM BALL TRUING MACHINE OPERATOR Follicular lymphoma, unspecified follicular lymphoma type, unspecified body region (HCC) Encounter for long-term (current) use of medications BLOOD SMEAR REVIEW Routine 02/24/2025 10 :12 AM BALL TRUING MACHINE OPERATOR Follicular lymphoma, unspecified follicular lymphoma type, unspecified body region (HCC) Prevention of chemotherapy-induce d neutropenia EGFR STAT 02/24/2025 10:12 AM BALL TRUING MACHINE OPERATOR Follicular lymphoma, unspecified follicular lymphoma type, unspecified body region (HCC) Prevention of chemotherapy-induce d neutropenia DIFFERENTIAL AUTO Routine 02/24/2025 10: 12 AM BALL TRUING MACHINE OPERATOR Follicular lymphoma, unspecified follicular lymphoma type, unspecified body region (HCC) Prevention of chemotherapy-induce d neutropenia CBC WITH AUTO DIFFERENTIAL Routine 02/24/2025 10:12 AM BALL TRUING MACHINE OPERATOR Follicular lymphoma, unspecified follicular lymphoma type, unspecified body region (HCC) Prevention of chemotherapy-induce d neutropenia COMPREHENSIVE METABOLIC PANEL STAT 02/24/2025 10:12 AM BALL TRUING MACHINE OPERATOR Follicular lymphoma, unspecified follicular lymphoma type, unspecified body region (HCC) Prevention of chemotherapy-induce d neutropenia HCG, BLOOD, QUANTITATIVE STAT 02/24/2025 10:12 AM BALL TRUING MACHINE OPERATOR Follicular lymphoma, unspecified follicular lymphoma type, unspecified body region (HCC) Prevention of chemotherapy-induce d neutropenia POCT GLUCOSE DEVICE Routine 2025 1 0:24 AM BALL TRUING MACHINE OPERATOR BLOOD SMEAR REVIEW Routine 02/10/2025 10 :45 AM BALL TRUING MACHINE OPERATOR Follicular lymphoma, unspecified follicular lymphoma type, unspecified body region (HCC) Prevention of chemotherapy-induce d neutropenia EGFR STAT 02/10/2025 10:45 AM BALL TRUING MACHINE OPERATOR Follicular lymphoma, unspecified follicular lymphoma type, unspecified body region (HCC) Prevention of chemotherapy-induce d neutropenia DIFFERENTIAL AUTO Routine 02/10/2025 10: 45 AM BALL TRUING MACHINE OPERATOR Follicular lymphoma, unspecified follicular lymphoma type, unspecified body region (HCC) Prevention of chemotherapy-induce d neutropenia CBC WITH AUTO DIFFERENTIAL Routine 02/10/2025 10:45 AM BALL TRUING MACHINE OPERATOR Follicular lymphoma, unspecified follicular lymphoma type, unspecified body region (HCC) Prevention of chemotherapy-induce d neutropenia COMPREHENSIVE METABOLIC PANEL STAT 02/10/2025 10:45 AM BALL TRUING MACHINE OPERATOR Follicular lymphoma, unspecified follicular lymphoma type, unspecified body region (HCC) Prevention of chemotherapy-induce d neutropenia HCG, BLOOD, QUANTITATIVE STAT 02/10/2025 10:45 AM BALL TRUING MACHINE OPERATOR Follicular lymphoma, unspecified follicular lymphoma type, unspecified [...] hemodynamically stable and ambulatory) (03/24/2025 5:22 PM BALL TRUING MACHINE OPERATOR) Anatomical Region Laterality Modality Body, Chest N/A Computed Radiogr aphy 03/24/2025 6:00 PM BALL TRUING MACHINE OPERATOR Impressions 03/24/2025 6:24 PM BALL TRUING MACHINE OPERATOR There are no prior chest radiographs for comparison. No pulmonary consolidation, pleural effusion or pneumothorax. Normal cardiomediastinal silhouette. Dictated by: Saúl Sigala M.D. The radiology attending physician has personally reviewed this study, and had reviewed and/or edited this written report and agrees with it. Electronically signed by: Cesilia Winston MD Narrative 03/24/2025 6:24 PM BALL TRUING MACHINE OPERATOR EXAMINATION: 2 view chest radiograph Procedure Note [...] Result * ECG 12-LEAD (03/24/2025 4:05 PM BALL TRUING MACHINE OPERATOR) Narrative [facility]AH[facility] - 03/24/2025 4:05 PM BALL TRUING MACHINE OPERATOR Elder Jones MD 03/24/2025 4:05 PM ECG 12 lead Date/Time: 03/24/2025 4:05 PM Performed by: Elder Jones MD Authorized by: Allan Arana MD Rate: ECG rate assessment comment: 119, sinus tachycardia, normal axis, normal intervals, nsstc us Allan Arana MD ECG ORDERABLES Final Result [facility] * (ABNORMAL) Blood smear review (03/17/2025 11:40 AM BALL TRUING MACHINE OPERATOR) RBC morphology Consistent with RBC Indicies Comment:Testing performed by : [address] [address] Platelet estimate Decreased(A) CERNER Comment:Testing performed by : [address] [address] Blood 03/17/2025 11:4 0 AM BALL TRUING MACHINE OPERATOR 03/17/2025 11:45 AM BALL TRUING MACHINE OPERATOR us Ramy Aguilera MD LAB BLOOD ORDERABLES Final R esult Performing Organization Address [facility] de Phone Number [place] [address] [facility] [place] [address] * eGFR (03/17/2025 11:40 AM BALL TRUING MACHINE OPERATOR) Pathologist [facility] eGFR >90 >=60 [...] was last reviewed 2021. Testing performed by: [address] [address] Blood 03/17/2025 11:4 0 AM BALL TRUING MACHINE OPERATOR 03/17/2025 11:45 AM BALL TRUING MACHINE OPERATOR Ramy Aguilera MD LAB BLOOD ORDERABLES Final R esult Performing Organization Address [facility] Co de Phone Number [place] [id number] [facility] Department [place] [address] * (ABNORMAL) Differential, auto (03/17/2025 11:40 AM BALL TRUING MACHINE OPERATOR) Pathologist [facility] Neutrophil abs 1.24(L) 1.50 - 6.50 K/cumm Comment:Testing performed by : [address] [address] Imm gran abs 0.01 0.00 - 0.10 K/cumm JOSELYN Comment:Testing performed by : [address] [address] Lymphocyte abs 7.07(H) 0.80 - 3.30 K/cumm CERSUSAN Comment:Testing performed by : [address] [address] Monocyte abs 0.26 0.20 - 0.80 K/cumm [facility] Comment:Testing performed by : [address], [place]., [address] Eosinophil abs 0.03 0.00 - 0.50 K/cumm [facility] Comment:Testing performed by : [address], [place]., [address] Basophil abs 0.04 0.00 - 0.10 K/cumm [facility] Comment:Testing performed by : [address] [address] Neutrophil pct 14.4 % [facility] Comment: Interpretive Data Percent cell count reference ranges are not reported, since discordance with absolute values may lead to misinterpretation of CBC data. Current Interpretive Data was last revised on 2017. Testing performed by: [address] [address] Imm gran pct 0.1 % [facility] Comment: Interpretive Data Percent cell count reference ranges are not reported, since discordance with absolute values may lead to misinterpretation of CBC data. Current Interpretive Data was last revised on 2017. Testing performed by: [address] [address] Lymphocyte pct 81.7 % [facility] Comment: Interpretive Data Percent cell count reference ranges are not reported, since discordance with absolute values may lead to misinterpretation of CBC data. Current Interpretive Data was last revised on 2017. Testing performed by: [address] [address] Monocyte pct 3.0 % CERNER Comment: Interpretive Data Percent cell count reference ranges are not reported, since discordance with absolute values may lead to misinterpretation of CBC data. Current Interpretive Data was last revised on 2017. Testing performed by: [address] [address] Eosinophil pct 0.3 % CERNER MH Comment: Interpretive Data Percent cell count reference ranges are not reported, since discordance with absolute values may lead to misinterpretation of CBC data. Current Interpretive Data was last revised on 2017. Testing performed by: [address] [address] Basophil pct 0.5 % JOSELYN VAZQUEZ Comment: Interpretive Data Percent cell count reference ranges are not reported, since discordance with absolute values may lead to misinterpretation of CBC data. Current Interpretive Data was last revised on 2017. Testing performed by: [address] [address] Blood 03/17/2025 11:4 0 AM BALL TRUING MACHINE OPERATOR 03/17/2025 11:45 AM BALL TRUING MACHINE OPERATOR us Ramy Aguilera MD LAB BLOOD ORDERABLES Final R esult JOSELYN [facility] Department [place] [address] * (ABNORMAL) CBC with auto differential (03/17/2025 11:40 AM BALL TRUING MACHINE OPERATOR) WBC 8.65 3.80 - 9.90 K/cumm Comment:Testing performed by : [address] [address] Hgb 8.6(L) 11.9 - 15.5 g/dL JOSELYN VAZQUEZ Comment:Testing performed by : [address] [address] Hct 27.5(L) 35.6 - 45.5 % JOSELYN VAZQUEZ Comment:Testing performed by : [address] [address] Plt 114(L) 150 - 400 K/cumm JOSELYN VAZQUEZ Comment:Testing performed by : [address] [address] MPV 9.5 9.1 - 12.3 fL JOSELYN VAZQUEZ Comment:Testing performed by : [address] [address] RBC 2.89(L) 3.90 - 5.20 M/cumm JOSELYN VAZQUEZ Comment:Testing performed by : [address] [address] MCV 95.2 81.3 - 96.4 fL JOSELYN VAZQUEZ Comment:Testing performed by : [address] [address] MCH 29.8 27.1 - 33.3 pg JOSELYN VAZQUEZ Comment:Testing performed by : [address] [address] MCHC 31.3(L) 32.3 - 35.7 g/dL JOSELYN VAZQUEZ Comment:Testing performed by : [address] [address] RDW CV 17.7(H) 11.1 - 14.9 % JOSELYN Comment:Testing performed by : [address] [address] RDW SD 61.4(H) 35.7 - 48.1 fL JOSELYN Comment:Testing performed by : [address] [address] NRBC abs 0.00 0.00 - 0.01 K/cumm JOSELYN Comment:Testing performed by : [address] [address] ANC Prelim 1.24(L) 1.50 - 6.50 K/cumm JOSELYN Comment: Interpretive Data The rapid ANC is a preliminary automated count and may vary from the final ANC (Neut Abs) reported in the WBC differential that follows. Current interpretive data was last revised 2024. Testing performed by: [address] [address] Blood 03/17/2025 11:4 0 AM BALL TRUING MACHINE OPERATOR 03/17/2025 11:45 AM BALL TRUING MACHINE OPERATOR us Ramy Aguilera MD LAB BLOOD ORDERABLES Edited Result - Final [facility] [address] [facility] Department of Laboratories [place], [place] [id number] * hCG, blood, quantitative (03/17/2025 11:40 AM BALL TRUING MACHINE OPERATOR) hCG, quant <5.0 0.0 - 5.0 IUnits/L Comment: Interpretive Data Male: < 5 IU/L Non- premenopausal Female: <5 IU/L The [employer] hCG Beta Quant assay procedure was used. Results from different manufacturers or methods may not be comparable. Serial testing should be performed using the same method. Interpretive Data was last revised on 2023 Testing performed by: [address] [address] Blood 03/17/2025 11:4 0 AM BALL TRUING MACHINE OPERATOR 03/17/2025 12:11 PM BALL TRUING MACHINE OPERATOR Ramy Aguilera MD LAB BLOOD ORDERABLES Edited Result - Final Performing Organization Address [facility] de Phone Number [address] [place] [address] * Uric acid (03/17/2025 11:40 AM BALL TRUING MACHINE OPERATOR) [facility] Uric acid 5.6 2.5 - 7.0 mg/dL Comment:Testing performed by : [address] [address] Blood 03/17/2025 11:4 0 AM BALL TRUING MACHINE OPERATOR 03/17/2025 11:45 AM BALL TRUING MACHINE OPERATOR Ramy Aguilera MD LAB BLOOD ORDERABLES Final R esult Performing Organization Address [facility] Co de Phone Number [address] [place] [address] * Lactate dehydrogenase (LD) (03/17/2025 11:40 AM BALL TRUING MACHINE OPERATOR) [facility] Lactate dehydrogenase (LDH) 243 100 - 250 Units/L Comment:Testing performed by : [address] [address] Blood 03/17/2025 11:4 0 AM BALL TRUING MACHINE OPERATOR 03/17/2025 11:45 AM BALL TRUING MACHINE OPERATOR us Ramy Aguilera MD LAB BLOOD ORDERABLES Final R esult JOSELYN [address] [facility] Department [place] [address] * (ABNORMAL) Comprehensive metabolic panel (03/17/2025 11:40 AM BALL TRUING MACHINE OPERATOR) Sodium 140 135 - 145 mmol/L Comment:Testing performed by : [address] [address] Potassium, pl 3.9 3.3 - 4.9 mmol/L JOSELYN Comment:Testing performed by : [address] [address] Chloride 102 97 - 110 mmol/L JOSELYN Comment:Testing performed by : [address] [address] CO2 26 22 - 32 mmol/L JOSELYN Comment:Testing performed by : [address] [address] Anion gap 12 2 - 15 mmol/L JOSELYN Comment:Testing performed by : [address] [address] BUN 7 6 - 25 mg/dL JOSELYN Comment:Testing performed by : [address] [address] Creatinine 0.70 0.60 - 1.10 mg/dL JOSELYN Comment:Testing performed by : [address] [address] Glucose 101 70 - 199 mg/dL JOSELYN [...] was last revised 2022. Testing performed by: [address] [address] Calcium 8.8 8.5 - 10.3 mg/dL JOSELYN Comment:Testing performed by : [address] [address] Bilirubin, total 0.4 0.1 - 1.2 mg/dL JOSELYN Comment:Testing performed by : [address] [address] Protein, pl 6.3(L) 6.5 - 8.5 g/dL JOSELYN Comment:Testing performed by : [address] [address] Albumin 4.3 3.5 - 5.0 g/dL JOSELYN Comment:Testing performed by : [address] [address] Alk phos 209(H) 40 - 130 Units/L JOSELYN Comment:Testing performed by : [address] [address] ALT 25 7 - 45 Units/L JOSELYN Comment:Testing performed by : [address] [address] AST 33 10 - 45 Units/L JOSELYN Comment:Testing performed by : [address] [address] Blood 03/17/2025 11:4 0 AM BALL TRUING MACHINE OPERATOR 03/17/2025 11:45 AM BALL TRUING MACHINE OPERATOR us Ramy Aguilera MD LAB BLOOD ORDERABLES Final R esult JOSELYN [address] [facility] Department [place] [address] * TRANSTHORACIC ECHO (TTE) COMPLETE W DOPPLER/CF WO CONTRAST (03/08/2025 11:14 AM BALL TRUING MACHINE OPERATOR) Estimated EF 59 % CONS SCIMAGE Anatomical Region Laterality Modality Ultrasound 03/08/2025 10:2 6 AM BALL TRUING MACHINE OPERATOR Narrative 03/08/2025 5:07 PM BALL TRUING MACHINE OPERATOR Transthoracic Echocardiographic Report Patient Name: SOHA MARRERO R : 1990 (35y ) Sex: F Study Date: 03/08/2025 10:26:39 AM Ht(Inch): 62 Wt(Lb): 111 BSA: 1.48 Classroom Teacher: Olivia Song RDCS Order Provider: RAMY AGUILERA Heart Rate: 95 BMI: 20.3 BP: 115 / 53 Ref Provider: RAMY AGUILERA PROCEDURES: Echocardiographic Report: ([id number]) Transthoracic complete echo, 2D, spectral and tissue Doppler, color flow Doppler, M-mode. INDICATIONS: C82.90 Follicular lymphoma, unspecified, unspecified site and Z79.899 Other long term care phlebotomist (current) drug therapy. FINDINGS: Left Ventricle: Normal [...] By: Sultan Nathen MD 03/08/2025 5:06:19 PM BALL TRUING MACHINE OPERATOR Procedure Note Sultan Katherine Sena MD - 03/08/2025 Transthoracic Echocardiographic Report Patient Name: SOHA MARRERO R : 1990 (35y ) Sex: F Study Date: 03/08/2025 10:26:39 AM Ht(Inch): 62 Wt(Lb): 111 BSA: 1.48 Classroom Teacher: Olivia Song RDCS Order Provider: RAMY AGUILERA Heart Rate: 95 BMI: 20.3 BP: 115 / 53 Ref Provider: RAMY AGUILERA PROCEDURES: Echocardiographic Report: ([id number]) Transthoracic complete echo, 2D,spectral and tissue Doppler, color flow Doppler, M-mode. INDICATIONS: C82.90 Follicular lymphoma, unspecified, unspecified site and Z79.899Other long term care phlebotomist (current) drug therapy. FINDINGS: Left Ventricle: Normal [...] [ 1.71 - 5.00 ] MV Decel Eiik440.00 msec AoR Diam 2D 2.40 cm [ [...] By: Sultan Nathen MD 03/08/2025 5:06:19 PM BALL TRUING MACHINE OPERATOR us Ramy Aguilera MD CV ECHO PROCEDURES Final Res ult * (ABNORMAL) Blood smear review (02/24/2025 10:12 AM BALL TRUING MACHINE OPERATOR) RBC morphology Consistent with RBC Indicies Comment:Testing performed by : [address] [address] Anisocytosis Slight(A) JOSELYN VAZQUEZ Comment:Testing performed by : [address] [address] Platelet estimate Adequate JOSELYN VAZQUEZ Comment:Testing performed by : [address] [address] Blood 02/24/2025 10:1 2 AM BALL TRUING MACHINE OPERATOR 02/24/2025 10:15 AM BALL TRUING MACHINE OPERATOR us Ramy Aguilera MD LAB BLOOD ORDERABLES Final R esult JOSELYN [address] [facility] [facility] [facility] Department [place] [address] * eGFR (02/24/2025 10:12 AM BALL TRUING MACHINE OPERATOR) eGFR >90 >=60 mL/min/1. 73 m2 Comment: [...] was last reviewed 2021. Testing performed by: [address] [address] Blood 02/24/2025 10:1 2 AM BALL TRUING MACHINE OPERATOR 02/24/2025 10:15 AM BALL TRUING MACHINE OPERATOR us Ramy Aguilera MD LAB BLOOD ORDERABLES Final R esult [facility] [address] Department [place] [address] * (ABNORMAL) Differential, auto (02/24/2025 10:12 AM BALL TRUING MACHINE OPERATOR) Neutrophil abs 1.94 1.50 - 6.50 K/cumm Comment:Testing performed by : [address] [address] Imm gran abs 0.02 0.00 - 0.10 K/cumm JOSELYN Comment:Testing performed by : [address] [address] Lymphocyte abs 10.97(H) 0.80 - 3.30 K/cumm JOSELYN Comment:Testing performed by : [address] [address] Monocyte abs 0.29 0.20 - 0.80 K/cumm JOSELYN Comment:Testing performed by : [address] [address] Eosinophil abs 0.09 0.00 - 0.50 K/cumm JOSELYN Comment:Testing performed by : [address] [address] Basophil abs 0.05 0.00 - 0.10 K/cumm JOSELYN Comment:Testing performed by : [address] [address] Neutrophil pct 14.5 % JOSELYN Comment: Interpretive Data Percent cell count reference ranges are not reported, since discordance with absolute values may lead to misinterpretation of CBC data. Current Interpretive Data was last revised on 2017. Testing performed by: [address] [address] Imm gran pct 0.1 % JOSELYN Comment: Interpretive Data Percent cell count reference ranges are not reported, since discordance with absolute values may lead to misinterpretation of CBC data. Current Interpretive Data was last revised on 2017. Testing performed by: [address] [address] Lymphocyte pct 82.1 % [facility] Comment: Interpretive Data Percent cell count reference ranges are not reported, since discordance with absolute values may lead to misinterpretation of CBC data. Current Interpretive Data was last revised on 2017. Testing performed by: [address] [address] Monocyte pct 2.2 % [facility] Comment: Interpretive Data Percent cell count reference ranges are not reported, since discordance with absolute values may lead to misinterpretation of CBC data. Current Interpretive Data was last revised on 2017. Testing performed by: [address] [address] Eosinophil pct 0.7 % [facility] Comment: Interpretive Data Percent cell count reference ranges are not reported, since discordance with absolute values may lead to misinterpretation of CBC data. Current Interpretive Data was last revised on 2017. Testing performed by: [address] [address] Basophil pct 0.4 % [facility] Comment: Interpretive Data Percent cell count reference ranges are not reported, since discordance with absolute values may lead to misinterpretation of CBC data. Current Interpretive Data was last revised on 2017. Testing performed by: [address] [address] Blood 02/24/2025 10:1 2 AM BALL TRUING MACHINE OPERATOR 02/24/2025 10:15 AM BALL TRUING MACHINE OPERATOR us Ramy Aguilera MD LAB BLOOD ORDERABLES Final R esult JOSELYN AVZQUEZ [address] Department of Laboratories [place], [place] [id number] * (ABNORMAL) CBC with auto differential (02/24/2025 10:12 AM BALL TRUING MACHINE OPERATOR) WBC 13.36(H) 3.80 - 9.90 K/cumm Comment:Testing performed by : [address] [address] Hgb 8.7(L) 11.9 - 15.5 g/dL JOSELYN Comment:Testing performed by : [address] [address] Hct 27.7(L) 35.6 - 45.5 % CERSUSAN Comment:Testing performed by : [address] [address] Plt 141(L) 150 - 400 K/cumm CERSUSAN Comment:Testing performed by : [address], [address] MPV 9.6 9.1 - 12.3 fL CERSUSAN Comment:Testing performed by : [address], [address] RBC 2.98(L) 3.90 - 5.20 M/cumm JOSELYN Comment:Testing performed by : [address], [address] MCV 93.0 81.3 - 96.4 fL CERSUSAN Comment:Testing performed by : [address], [address] MCH 29.2 27.1 - 33.3 pg CERSUSAN Comment:Testing performed by : [address] [address] MCHC 31.4(L) 32.3 - 35.7 g/dL JOSELYN Comment:Testing performed by : [address], [address] RDW CV 18.6(H) 11.1 - 14.9 % CERSUSAN Comment:Testing performed by : [address], [address] RDW SD 60.3(H) 35.7 - 48.1 fL CERSUSAN Comment:Testing performed by : [address] [address] NRBC abs 0.02(H) 0.00 - 0.01 K/cumm JOSELYN Comment:Testing performed by : [address] [place] [address] ANC Prelim 1.94 1.50 - 6.50 K/cumm JOSELYN Comment: Interpretive Data The rapid ANC is a preliminary automated count and may vary from the final ANC (Neut Abs) reported in the WBC differential that follows. Current interpretive data was last revised 2024. Testing performed by: [address] [address] Blood 02/24/2025 10:1 2 AM BALL TRUING MACHINE OPERATOR 02/24/2025 10:15 AM BALL TRUING MACHINE OPERATOR Ramy Aguilera MD LAB BLOOD ORDERABLES Final R esult Performing Organization Address [facility] de Phone Number JOSELYN [address] [place] [address] * hCG, blood, quantitative (02/24/2025 10:12 AM BALL TRUING MACHINE OPERATOR) hCG, quant <5.0 0.0 - 5.0 IUnits/L Comment: Interpretive Data Male: < 5 IU/L Non- premenopausal Female: <5 IU/L The Cosmo hCG Beta Quant assay procedure was used. Results from different manufacturers or methods may not be comparable. Serial testing should be performed using the same method. Interpretive Data was last revised on 2023 Testing performed by: [address] [address] Blood 02/24/2025 10:1 2 AM BALL TRUING MACHINE OPERATOR 02/24/2025 10:46 AM BALL TRUING MACHINE OPERATOR Ramy Aguilera MD LAB BLOOD ORDERABLES Final R esult Performing Organization Address [facility] Co de Phone Number [facility] [address] [place] [address] * (ABNORMAL) Comprehensive metabolic panel (02/24/2025 10:12 AM BALL TRUING MACHINE OPERATOR) Sodium 141 135 - 145 mmol/L Comment:Testing performed by : [address] [address] Potassium, pl 3.8 3.3 - 4.9 mmol/L [facility] Comment:Testing performed by : [address] [address] Chloride 102 97 - 110 mmol/L [facility] Comment:Testing performed by : [address], [place]., [address] CO2 26 22 - 32 mmol/L [facility] Comment:Testing performed by : [address] [address] Anion gap 13 2 - 15 mmol/L [facility] Comment:Testing performed by : [address] [address] BUN 13 6 - 25 mg/dL [facility] Comment:Testing performed by : [address], [place]., [address] Creatinine 0.70 0.60 - 1.10 mg/dL [facility] Comment:Testing performed by : [address] [address] Glucose 83 70 - 199 mg/dL [facility] Comment: Interpretive Data Fasting glucose [...] was last revised 2022. Testing performed by: [address] [address] Calcium 9.5 8.5 - 10.3 mg/dL [facility] Comment:Testing performed by : [address] [address] Bilirubin, total 0.3 0.1 - 1.2 mg/dL [facility] Comment:Testing performed by : [address] [address] Protein, pl 6.1(L) 6.5 - 8.5 g/dL JOSELYN Comment:Testing performed by : [address] [address] Albumin 4.0 3.5 - 5.0 g/dL JOSELYN VAZQUEZ Comment:Testing performed by : [address] [address] Alk phos 150(H) 40 - 130 Units/L JOSELYN Comment:Testing performed by : [address] [address] ALT 8 7 - 45 Units/L JOSELYN Comment:Testing performed by : [address] [address] AST 18 10 - 45 Units/L JOSELYN Comment:Testing performed by : [address] [address] Blood 02/24/2025 10:1 2 AM BALL TRUING MACHINE OPERATOR 02/24/2025 10:15 AM BALL TRUING MACHINE OPERATOR us Ramy Aguilera MD LAB BLOOD ORDERABLES Final R esult Performing Organization Address City/[facility] Co de Phone Number [address] [place] [address] * POCT glucose (2025 10:24 AM BALL TRUING MACHINE OPERATOR) Pathologist [facility] Glucose, POC 91 70 - 199 mg/dL Comment:Testing performed by : [address] [address] Blood 2025 10:2 4 AM BALL TRUING MACHINE OPERATOR 2025 10:24 AM BALL TRUING MACHINE OPERATOR Ramy Aguilera MD LAB POCT ORDERABLES - DEVICE Final Result Performing Organization Address City/[facility]/ZIP Co de Phone Number [address] [place] [address] * (ABNORMAL) Blood smear review (02/10/2025 10:45 AM BALL TRUING MACHINE OPERATOR) Pathologist [facility] RBC morphology Consistent with RBC Indicies Comment:Testing performed by : [address] [address] Anisocytosis Slight(A) JOSELYN VAZQUEZ Comment:Testing performed by : [address] [address] Platelet estimate Adequate JOSELYN VAZQUEZ Comment:Testing performed by : [address] [address] Blood 02/10/2025 10:4 5 AM BALL TRUING MACHINE OPERATOR 02/10/2025 10:48 AM BALL TRUING MACHINE OPERATOR us Ramy Aguilera MD LAB BLOOD ORDERABLES Final R esult JOSELYN VAZQUEZ [address] Department [place] [address] * eGFR (02/10/2025 10:45 AM BALL TRUING MACHINE OPERATOR) eGFR >90 >=60 mL/min/1. 73 m2 Comment: [...] was last reviewed 2021. Testing performed by: [address] [address] Blood 02/10/2025 10:4 5 AM BALL TRUING MACHINE OPERATOR 02/10/2025 10:48 AM BALL TRUING MACHINE OPERATOR us Ramy Aguilera MD LAB BLOOD ORDERABLES Final R esult JOSELYN [address] [facility] Department [place] [address] * (ABNORMAL) Differential, auto (02/10/2025 10:45 AM BALL TRUING MACHINE OPERATOR) Neutrophil abs 2.05 1.50 - 6.50 K/cumm Comment:Testing performed by : [address] [address] Imm gran abs 0.01 0.00 - 0.10 K/cumm JOSELYN Comment:Testing performed by : [address] [address] Lymphocyte abs 13.08(H) 0.80 - 3.30 K/cumm JOSELYN Comment:Testing performed by : [address] [address] Monocyte abs 0.29 0.20 - 0.80 K/cumm JOSELYN Comment:Testing performed by : [address] [address] Eosinophil abs 0.02 0.00 - 0.50 K/cumm JOSELYN Comment:Testing performed by : [address] [address] Basophil abs 0.07 0.00 - 0.10 K/cumm JOSELYN Comment:Testing performed by : [address] [address] Neutrophil pct 13.1 % JOSELYN Comment: Interpretive Data Percent cell count reference ranges are not reported, since discordance with absolute values may lead to misinterpretation of CBC data. Current Interpretive Data was last revised on 2017. Testing performed by: [address] [address] Imm gran pct 0.1 % JOSELYN Comment: Interpretive Data Percent cell count reference ranges are not reported, since discordance with absolute values may lead to misinterpretation of CBC data. Current Interpretive Data was last revised on 2017. Testing performed by: [address] [address] Lymphocyte pct 84.3 % JOSELYN Comment: Interpretive Data Percent cell count reference ranges are not reported, since discordance with absolute values may lead to misinterpretation of CBC data. Current Interpretive Data was last revised on 2017. Testing performed by: [address] [address] Monocyte pct 1.9 % JOSELYN Comment: Interpretive Data Percent cell count reference ranges are not reported, since discordance with absolute values may lead to misinterpretation of CBC data. Current Interpretive Data was last revised on 2017. Testing performed by: [address] [address] Eosinophil pct 0.1 % JOSELYN Comment: Interpretive Data Percent cell count reference ranges are not reported, since discordance with absolute values may lead to misinterpretation of CBC data. Current Interpretive Data was last revised on 2017. Testing performed by: [address] [address] Basophil pct 0.5 % JOSELYN Comment: Interpretive Data Percent cell count reference ranges are not reported, since discordance with absolute values may lead to misinterpretation of CBC data. Current Interpretive Data was last revised on 2017. Testing performed by: [address] [address] Blood 02/10/2025 10:4 5 AM BALL TRUING MACHINE OPERATOR 02/10/2025 10:48 AM BALL TRUING MACHINE OPERATOR us Ramy Aguilera MD LAB BLOOD ORDERABLES Final R esult [facility] [address] Department [place] [address] * (ABNORMAL) CBC with auto differential (02/10/2025 10:45 AM BALL TRUING MACHINE OPERATOR) WBC 15.52(H) 3.80 - 9.90 K/cumm Comment:Testing performed by : [address] [address] Hgb 7.9(L) 11.9 - 15.5 g/dL JOSELYN Comment:Testing performed by : [address] [address] Hct 25.5(L) 35.6 - 45.5 % JOSELYN Comment:Testing performed by : [address] [address] Plt 128(L) 150 - 400 K/cumm JOSELYN Comment:Testing performed by : [address] [address] MPV 10.3 9.1 - 12.3 fL JOSELYN Comment:Testing performed by : [address], [address] RBC 2.75(L) 3.90 - 5.20 M/cumm JOSELYN Comment:Testing performed by : [address], [address] MCV 92.7 81.3 - 96.4 fL JOSELYN Comment:Testing performed by : [address] [address] MCH 28.7 27.1 - 33.3 pg JOSELYN Comment:Testing performed by : [address] [address] MCHC 31.0(L) 32.3 - 35.7 g/dL JOSELYN Comment:Testing performed by : [address] [address] RDW CV 18.0(H) 11.1 - 14.9 % JOSELYN Comment:Testing performed by : [address], [address] RDW SD 60.4(H) 35.7 - 48.1 fL [facility] Comment:Testing performed by : [address] [address] NRBC abs 0.00 0.00 - 0.01 K/cumm JOSELYN Comment:Testing performed by : [address] [address] ANC Prelim 2.05 1.50 - 6.50 K/cumm JOSELYN Comment: Interpretive Data The rapid ANC is a preliminary automated count and may vary from the final ANC (Neut Abs) reported in the WBC differential that follows. Current interpretive data was last revised 2024. Testing performed by: [address] [address] Blood 02/10/2025 10:4 5 AM BALL TRUING MACHINE OPERATOR 02/10/2025 10:48 AM BALL TRUING MACHINE OPERATOR Ramy Aguilera MD LAB BLOOD ORDERABLES Final R esult Performing Organization Address [facility] de Phone Number [address] [place] [address] * hCG, blood, quantitative (02/10/2025 10:45 AM BALL TRUING MACHINE OPERATOR) hCG, quant <5.0 0.0 - 5.0 IUnits/L Comment: Interpretive Data Male: < 5 IU/L Non- premenopausal Female: <5 IU/L The Cosmo hCG Beta Quant assay procedure was used. Results from different manufacturers or methods may not be comparable. Serial testing should be performed using the same method. Interpretive Data was last revised on 2023 Testing performed by: [address] [address] Blood 02/10/2025 10:4 5 AM BALL TRUING MACHINE OPERATOR 02/10/2025 11:06 AM BALL TRUING MACHINE OPERATOR us Ramy Aguilera MD LAB BLOOD ORDERABLES Final R esult Performing Organization Address [facility] de Phone Number [address] [place] [address] * (ABNORMAL) Comprehensive metabolic panel (02/10/2025 10:45 AM BALL TRUING MACHINE OPERATOR) Sodium 143 135 - 145 mmol/L Comment:Testing performed by : [address] [address] Potassium, pl 3.8 3.3 - 4.9 mmol/L JOSELYN VAZQUEZ Comment:Testing performed by : [address] [address] Chloride 102 97 - 110 mmol/L JOSELYN VAZQUEZ Comment:Testing performed by : [address] [place] [address] CO2 29 22 - 32 mmol/L [facility] Comment:Testing performed by : [address] [address] Anion gap 12 2 - 15 mmol/L [facility] Comment:Testing performed by : [address] [address] BUN 12 6 - 25 mg/dL [facility] Comment:Testing performed by : [address] [address] Creatinine 0.80 0.60 - 1.10 mg/dL [facility] Comment:Testing performed by : [address] [address] Glucose 94 70 - 199 mg/dL [facility] Comment: Interpretive Data Fasting glucose [...] was last revised 2022. Testing performed by: [address] [address] Calcium 9.0 8.5 - 10.3 mg/dL [facility] Comment:Testing performed by : [address] [address] Bilirubin, total 0.3 0.1 - 1.2 mg/dL [facility] Comment:Testing performed by : [address] [address] Protein, pl 6.1(L) 6.5 - 8.5 g/dL [facility] Comment:Testing performed by : [address] [address] Albumin 4.0 3.5 - 5.0 g/dL [facility] Comment:Testing performed by : [address] [address] Alk phos 149(H) 40 - 130 Units/L JOSELYN VAZQUEZ Comment:Testing performed by : [address] [address] ALT 11 7 - 45 Units/L JOSELYN VAZQUEZ Comment:Testing performed by : [address] [address] AST 23 10 - 45 Units/L JOSELYN Comment:Testing performed by : [address] [address] Blood 02/10/2025 10:4 5 AM BALL TRUING MACHINE OPERATOR 02/10/2025 10:48 AM BALL TRUING MACHINE OPERATOR us Ramy Aguilera MD LAB BLOOD ORDERABLES Final R esult Performing Organization Address City/[facility] Co de Phone Number JOSELYN [address] [place] [address] * (ABNORMAL) Blood smear review (02/03/2025 11:19 AM CDT) Pathologist [facility] RBC morphology Consistent with RBC Indicies Comment:Testing performed by : [address] [address] Anisocytosis Slight(A) JOSELYN VAZQUEZ Comment:Testing performed by : [address] [address] Platelet estimate Adequate JOSELYN VAZQUEZ Comment:Testing performed by : [address] [address] Blood 02/03/2025 11:1 9 AM CDT 02/03/2025 11:22 AM CDT us Ramy Aguilera MD LAB BLOOD ORDERABLES Final R esult [facility] [address] * eGFR (02/03/2025 11:19 AM CDT) eGFR [...] was last reviewed 2021. Testing performed by: [address] [address] Blood 02/03/2025 11:1 9 AM CDT 02/03/2025 11:22 AM CDT us Ramy Aguilera MD LAB BLOOD ORDERABLES Final R esult [facility] [address] Department [place] [address] * (ABNORMAL) Differential, auto (02/03/2025 11:19 AM CDT) Neutrophil abs 2.22 1.50 - 6.50 K/cumm Comment:Testing performed by : [address] [address] Imm gran abs 0.04 0.00 - 0.10 K/cumm JOSELYN Comment:Testing performed by : [address] [address] Lymphocyte abs 22.28(H) 0.80 - 3.30 K/cumm JOSELYN Comment:Testing performed by : [address] [address] Monocyte abs 0.58 0.20 - 0.80 K/cumm JOSELYN Comment:Testing performed by : [address] [address] Eosinophil abs 0.01 0.00 - 0.50 K/cumm JOSELYN Comment:Testing performed by : [address] [address] Basophil abs 0.11(H) 0.00 - 0.10 K/cumm JOSELYN Comment:Testing performed by : [address] [address] Neutrophil pct 8.8 % [facility] Comment: Interpretive Data Percent cell count reference ranges are not reported, since discordance with absolute values may lead to misinterpretation of CBC data. Current Interpretive Data was last revised on 2017. Testing performed by: [address] [address] Imm gran pct 0.2 % JOSELYN Comment: Interpretive Data Percent cell count reference ranges are not reported, since discordance with absolute values may lead to misinterpretation of CBC data. Current Interpretive Data was last revised on 2017. Testing performed by: [address] [address] Lymphocyte pct 88.3 % [facility] Comment: Interpretive Data Percent cell count reference ranges are not reported, since discordance with absolute values may lead to misinterpretation of CBC data. Current Interpretive Data was last revised on 2017. Testing performed by: [address] [address] Monocyte pct 2.3 % [facility] Comment: Interpretive Data Percent cell count reference ranges are not reported, since discordance with absolute values may lead to misinterpretation of CBC data. Current Interpretive Data was last revised on 2017. Testing performed by: [address] [address] Eosinophil pct 0.0 % [facility] Comment: Interpretive Data Percent cell count reference ranges are not reported, since discordance with absolute values may lead to misinterpretation of CBC data. Current Interpretive Data was last revised on 2017. Testing performed by: [address] [address] Basophil pct 0.4 % JOSELYN Comment: Interpretive Data Percent cell count reference ranges are not reported, since discordance with absolute values may lead to misinterpretation of CBC data. Current Interpretive Data was last revised on 2017. Testing performed by: [address] [address] Blood 02/03/2025 11:1 9 AM CDT 02/03/2025 11:22 AM CDT us Ramy Aguilera MD LAB BLOOD ORDERABLES Final R esult [facility] [address] [place] [address] * (ABNORMAL) CBC with auto differential (02/03/2025 11:19 AM CDT) WBC 25.24(H) 3.80 - 9.90 K/cumm Comment:Testing performed by : [address] [address] Hgb 8.7(L) 11.9 - 15.5 g/dL JOSELYN Comment:Testing performed by : [address] [address] Hct 28.1(L) 35.6 - 45.5 % JOSELYN Comment:Testing performed by : [address] [address] Plt 176 150 - 400 K/cumm JOSELYN Comment:Testing performed by : [address] [address] MPV 9.6 9.1 - 12.3 fL JOSELYN Comment:Testing performed by : [address] [address] RBC 3.07(L) 3.90 - 5.20 M/cumm JOSELYN Comment:Testing performed by : [address] [address] MCV 91.5 81.3 - 96.4 fL JOSELYN Comment:Testing performed by : [address] [address] MCH 28.3 27.1 - 33.3 pg JOSELYN Comment:Testing performed by : [facility], [address] [place] [address]., [address] MCHC 31.0(L) 32.3 - 35.7 g/dL JOSELYN VAZQUEZ Comment:Testing performed by : [address] [address] RDW CV 17.6(H) 11.1 - 14.9 % JOSELYN Comment:Testing performed by : [address] [address] RDW SD 57.8(H) 35.7 - 48.1 fL JOSELYN Comment:Testing performed by : [address] [address] NRBC abs 0.02(H) 0.00 - 0.01 K/cumm JOSELYN Comment:Testing performed by : [address] [address] ANC Prelim 2.22 1.50 - 6.50 K/cumm JOSELYN Comment: Interpretive Data The rapid ANC is a preliminary automated count and may vary from the final ANC (Neut Abs) reported in the WBC differential that follows. Current interpretive data was last revised 2024. Testing performed by: [address] [address] Blood 02/03/2025 11:1 9 AM CDT 02/03/2025 11:22 AM CDT Ramy Aguilera MD LAB BLOOD ORDERABLES Edited Result - Final JOSELYN [address] Department of Laboratories [place], [place] [id number] * hCG, blood, quantitative (02/03/2025 11:19 AM CDT) [facility] hCG, quant <5.0 0.0 - 5.0 IUnits/L Comment: Interpretive Data Male: < 5 IU/L Non- premenopausal Female: <5 IU/L The Cosmo hCG Beta Quant assay procedure was used. Results from different manufacturers or methods may not be comparable. Serial testing should be performed using the same method. Interpretive Data was last revised on 2023 Testing performed by: [address] [address] Blood 02/03/2025 11:1 9 AM CDT 02/03/2025 11:45 AM CDT Ramy Aguilera MD LAB BLOOD ORDERABLES Final R esult Performing Organization Address [facility] de Phone Number D[address] [address] * (ABNORMAL) Lactate dehydrogenase (LD) (02/03/2025 11:19 AM CDT) [facility] Lactate dehydrogenase (LDH) 392(H) 100 - 250 Units/L Comment: HEMOLYZED: Hemolysis interferes with the above test. Testing performed by: [address] [address] Blood 02/03/2025 11:1 9 AM CDT 02/03/2025 11:22 AM CDT Ramy Aguilera MD LAB BLOOD ORDERABLES Final R esult Performing Organization Address [facility] de Phone Number [address] [address] * (ABNORMAL) Comprehensive metabolic panel (02/03/2025 11:19 AM CDT) [facility] Sodium 136 135 - 145 mmol/L Comment:Testing performed by : [address] [address] Potassium, pl 3.7 3.3 - 4.9 mmol/L JOSELYN VAZQUEZ Comment:Testing performed by : [address] [address] Chloride 99 97 - 110 mmol/L JOSELYN Comment:Testing performed by : [address] [address] CO2 23 22 - 32 mmol/L JOSELYN VAZQUEZ Comment:Testing performed by : [address] [address] Anion gap 14 2 - 15 mmol/L JOSELYN Comment:Testing performed by : [address] [address] BUN 8 6 - 25 mg/dL JOSLEYN Comment:Testing performed by : [address], [place]., [address] Creatinine 0.70 0.60 - 1.10 mg/dL JOSELYN Comment:Testing performed by : [address] [address] Glucose 105 70 - 199 mg/dL JOSELYN [...] was last revised 2022. Testing performed by: [address] [address] Calcium 9.3 8.5 - 10.3 mg/dL JOSELYN Comment:Testing performed by : [address] [address] Bilirubin, total 0.5 0.1 - 1.2 mg/dL JOSELYN Comment:Testing performed by : [address] [address] Protein, pl 6.4(L) 6.5 - 8.5 g/dL JOSELYN Comment:Testing performed by : [address] [address] Albumin 4.0 3.5 - 5.0 g/dL JOSELYN Comment:Testing performed by : [address] [address] Alk phos 180(H) 40 - 130 Units/L JOSELYN Comment:Testing performed by : [address] [address] ALT 25 7 - 45 Units/L JOSELYN VAZQUEZ Comment:Testing performed by : [address] [address] AST 33 10 - 45 Units/L OJSELYN VAZQUEZ Comment:Testing performed by : [address] [address] Blood 02/03/2025 11:1 9 AM CDT 02/03/2025 11:22 AM CDT us Ramy Aguilera MD LAB BLOOD ORDERABLES Final R esult Performing Organization Address [facility] Co de Phone Number DARRIN[address] [place] [address] * (ABNORMAL) Blood smear review (01/13/2025 10:00 AM CDT) Pathologist [facility] RBC morphology Consistent with RBC Indicies Comment:Testing performed by : [address] [address] Anisocytosis Slight(A) JOSELYN VAZQUEZ Comment:Testing performed by : [address] [address] Platelet estimate Adequate JOSELYN Comment:Testing performed by : [address] [address] Blood 01/13/2025 10:0 0 AM CDT 01/13/2025 10:02 AM CDT us Ramy Aguilera MD LAB BLOOD ORDERABLES Final R esult Performing Organization Address [facility] Co de Phone Number DARRIN[address] [place] [address] * eGFR (01/13/2025 10:00 AM CDT) eGFR [...] was last reviewed 2021. Testing performed by: [address] [address] Blood 01/13/2025 10:0 0 AM CDT 01/13/2025 10:02 AM CDT us Ramy Aguilera MD LAB BLOOD ORDERABLES Final R esult JOSELYN [facility] [facility] Department of Laboratories [place], [place] [id number] * (ABNORMAL) Differential, auto (01/13/2025 10:00 AM CDT) Neutrophil abs 1.44(L) 1.50 - 6.50 K/cumm Comment:Testing performed by : [address] [address] Imm gran abs 0.03 0.00 - 0.10 K/cumm JOSELYN Comment:Testing performed by : [address] [address] Lymphocyte abs 17.55(H) 0.80 - 3.30 K/cumm JOSELYN Comment:Testing performed by : [address] [address] Monocyte abs 0.33 0.20 - 0.80 K/cumm JOSELYN Comment:Testing performed by : [address] [address] Eosinophil abs 0.04 0.00 - 0.50 K/cumm JOSELYN Comment:Testing performed by : [address] [address] Basophil abs 0.10 0.00 - 0.10 K/cumm JOSELYN Comment:Testing performed by : [address] [address] Neutrophil pct 7.4 % [facility] Comment: Interpretive Data Percent cell count reference ranges are not reported, since discordance with absolute values may lead to misinterpretation of CBC data. Current Interpretive Data was last revised on 2017. Testing performed by: [address] [address] Imm gran pct 0.2 % [facility] Comment: Interpretive Data Percent cell count reference ranges are not reported, since discordance with absolute values may lead to misinterpretation of CBC data. Current Interpretive Data was last revised on 2017. Testing performed by: [address] [address] Lymphocyte pct 90.0 % [facility] Comment: Interpretive Data Percent cell count reference ranges are not reported, since discordance with absolute values may lead to misinterpretation of CBC data. Current Interpretive Data was last revised on 2017. Testing performed by: [address] [address] Monocyte pct 1.7 % [facility] Comment: Interpretive Data Percent cell count reference ranges are not reported, since discordance with absolute values may lead to misinterpretation of CBC data. Current Interpretive Data was last revised on 2017. Testing performed by: [address] [address] Eosinophil pct 0.2 % [facility] Comment: Interpretive Data Percent cell count reference ranges are not reported, since discordance with absolute values may lead to misinterpretation of CBC data. Current Interpretive Data was last revised on 2017. Testing performed by: [address] [address] Basophil pct 0.5 % [facility] Comment: Interpretive Data Percent cell count reference ranges are not reported, since discordance with absolute values may lead to misinterpretation of CBC data. Current Interpretive Data was last revised on 2017. Testing performed by: [address] [address] Blood 01/13/2025 10:0 0 AM CDT 01/13/2025 10:02 AM CDT us Ramy Aguilera MD LAB BLOOD ORDERABLES Final R esult [facility] [address] [facility] Department [place] [address] * (ABNORMAL) CBC with auto differential (01/13/2025 10:00 AM CDT) WBC 19.49(H) 3.80 - 9.90 K/cumm Comment:Testing performed by : [address] [address] Hgb 8.1(L) 11.9 - 15.5 g/dL JOSELYN Comment:Testing performed by : [address] [address] Hct 25.4(L) 35.6 - 45.5 % JOSELYN Comment:Testing performed by : [address] [address] Plt 108(L) 150 - 400 K/cumm JOSELYN Comment:Testing performed by : [address] [address] MPV 8.8(L) 9.1 - 12.3 fL JOSELYN Comment:Testing performed by : [address] [address] RBC 2.77(L) 3.90 - 5.20 M/cumm JOSELYN Comment:Testing performed by : [address] [address] MCV 91.7 81.3 - 96.4 fL JOSELYN Comment:Testing performed by : [address] [address] MCH 29.2 27.1 - 33.3 pg JOSELYN Comment:Testing performed by : [address] [address] MCHC 31.9(L) 32.3 - 35.7 g/dL JOSELYN Comment:Testing performed by : [address] [address] RDW CV 17.9(H) 11.1 - 14.9 % JOSELYN Comment:Testing performed by : [address] [address] RDW SD 59.7(H) 35.7 - 48.1 fL JOSELYN Comment:Testing performed by : [address] [address] NRBC abs 0.02(H) 0.00 - 0.01 K/cumm JOSELYN Comment:Testing performed by : [address] [address] ANC Prelim 1.44(L) 1.50 - 6.50 K/cumm JOSELYN Comment: Interpretive Data The rapid ANC is a preliminary automated count and may vary from the final ANC (Neut Abs) reported in the WBC differential that follows. Current interpretive data was last revised 2024. Testing performed by: [address] [address] Blood 01/13/2025 10:0 0 AM CDT 01/13/2025 10:02 AM CDT Ramy Aguilera MD LAB BLOOD ORDERABLES Edited Result - Final [facility] [address] [facility] Department of Laboratories [place], [place] [id number] * hCG, blood, quantitative (01/13/2025 10:00 AM [...] last revised on 2023 Testing performed by: [address] [address] Blood 01/13/2025 10:0 0 AM CDT 01/13/2025 10:18 AM CDT us Ramy Aguilera MD LAB BLOOD ORDERABLES Final R esult [facility] [address] [facility] Department [place] [address] * (ABNORMAL) Comprehensive metabolic panel (01/13/2025 10:00 AM CDT) Sodium 138 135 - 145 mmol/L Comment:Testing performed by : [address] [address] Potassium, pl 3.2(L) 3.3 - 4.9 mmol/L JOSELYN Comment:Testing performed by : [address] [address] Chloride 98 97 - 110 mmol/L JOSELYN Comment:Testing performed by : [address] [address] CO2 26 22 - 32 mmol/L JOSELYN Comment:Testing performed by : [address] [address] Anion gap 14 2 - 15 mmol/L JOSELYN Comment:Testing performed by : [address] [address] BUN 6 6 - 25 mg/dL JOSELYN Comment:Testing performed by : [address] [address] Creatinine 0.70 0.60 - 1.10 mg/dL JOSELYN Comment:Testing performed by : [address] [address] Glucose 131 70 - 199 mg/dL JOSELYN [...] was last revised 2022. Testing performed by: [address] [address] Calcium 9.0 8.5 - 10.3 mg/dL JOSELYN Comment:Testing performed by : [address] [address] Bilirubin, total 0.5 0.1 - 1.2 mg/dL JOSELYN Comment:Testing performed by : [address] [address] Protein, pl 5.8(L) 6.5 - 8.5 g/dL JOSELYN Comment:Testing performed by : [address] [address] Albumin 3.8 3.5 - 5.0 g/dL JOSELYN Comment:Testing performed by : [address] [address] Alk phos 238(H) 40 - 130 Units/L JOSELYN Comment:Testing performed by : [address] [address] ALT 17 7 - 45 Units/L JOSELYN Comment:Testing performed by : [address] [address] AST 30 10 - 45 Units/L JOSELYN Comment:Testing performed by : [address] [address] Blood 01/13/2025 10:0 0 AM CDT 01/13/2025 10:02 AM CDT us Ramy Aguilera MD LAB BLOOD ORDERABLES Final R esult JOSELYN [address] [facility] Department of Laboratories [place], [place] [id number] from Last 3 Months Additional Health Concerns Infection Onset Date Last Indicated C. difficile 11/18/2024 11/18/2024 Insurance [facility] Advance Directives For more information, please contact: [phone] * Full Code (Latest Code Status on File) Date Activated Date Inactivated Comments 09/22/2024 9:00 PM 09/24/2024 10:30 PM * Full Code Date Activated Date Inactivated Comments 09/17/2024 2:33 PM 09/17/2024 11:31 PM Care Teams Mandarin Speaking Nanny Relationship Specialty Start Date End Date Satya Fernandez MD [address] [place] [address] PCP - General Internal Medicine 10/21/24 Ramy Aguilera MD [address] [place] [address] Medical Oncologist/Inspector Material Disposition Internal Medicine 09/23/24
--- OUTSIDE RECORDS SUMMARY | 2025-03-25 16:32 | XMS_ITS ---
Author Organization [facility] [address] [facility] Address [address] [place] [address] Care Team Providers Care Marriage Therapist Name Role Phone Ramy Aguilera MD Unavailable [phone] Satya Fernandez MD Primary Care Provider Active [...] - Plan to discharge patient with outpatient [facility] follow-up on 09/30/24. Assessment & Plan [...] - Plan to discharge patient with outpatient [facility] follow-up on 09/30/24. Assessment & Plan [...]
--- OUTSIDE RECORDS SUMMARY | 2025-03-25 16:32 | XMS_ITS | Clinical Summary ---
Author Organization [facility] Address [address] [place] [address] Care Team Providers Care Mucker Cofferdam Name Role Phone None, Provider MD Primary [...] through pain 12 tablet 12/05/19 24 Active cephALEXin (KEFLEX) 500 MG capsule Take 1 capsule (500 mg total) by mouth 3 (three) times daily for 10 days. 30 capsule 03/21/20 25 025 Active Encounters Date Type Department Care Team Description 03/24/2025 Results Follow-Up Health system Care [facility] [place] [address] Tunde Bess APRN CULTURE, BACTERIA, BLOOD 03/24/2025 Results Follow-Up [facility] [place] [address] Tunde Bess APRN CULTURE, BACTERIA, BLOOD, CULTURE, BACTERIA, BLOOD, RESPIRATORY PCR PNL LIMITED (FLU A/FLU B/RSV/COVID) 03/22/2025 8:17 PM LAND RECLAMATION SPECIALIST - 03/22/2025 11:25 PM LAND RECLAMATION SPECIALIST Emergency [facility] [place] [address] Evie Pulido MD Medical Screening Discharge Disposition: Home or Self Care (Routine Discharge) 03/22/2025 Travel 03/21/2025 5:20 PM LAND RECLAMATION SPECIALIST - 03/21/2025 8:48 PM LAND RECLAMATION SPECIALIST Emergency [facility] [place] [address] Clyde Raygoza MD Weakness Discharge Disposition: Left Against Medical Advice 03/21/2025 Travel 02/09/2025 5:04 PM LAND RECLAMATION SPECIALIST - 02/09/2025 7:39 PM LAND RECLAMATION SPECIALIST Emergency [facility] [place] [address] Rishi Cote MD Medical Screening Discharge Disposition: Home or Self Care (Routine Discharge) 02/09/2025 Travel 01/27/2025 Results Follow-Up [facility] [address] [place] [address] Thalia Hall, FEEDMOBILE DRIVER Pathology 01/24/2025 11:15 PM CDT - 01/25/2025 1:40 AM CDT Emergency [facility] [place] [address] Koko Johnson MD,PHD Mouth Sores Discharge Disposition: Home or Self Care (Routine Discharge) 01/24/2025 Travel from Last 3 Months Social History Tobacco Use Types Packs/Day Years Used Date Smoking Tobacco: Every Day Cigarettes 14 Started: 2011 Passive Smoke Exposure: Current Tobacco Cessation:Ready to Q uit: Not Asked; Counseling Given: Not Answered Alcohol Use Standard Drinks/Week Comments Yes 4 (1 standard drink = 0.6 oz pure alcohol) patient states she takes shots of fireball to help with pain when she gets desperate. Comments No Sex and Gender Information Value Date Recorded Sex Assigned at Female 02/09/2025 4:27 PM LAND RECLAMATION SPECIALIST Legal Sex Female 7:16 PM CDT Gender Identity Not on file Sexual Orientation Not on file Last Filed Vital Signs Vital Sign Reading Time Taken Comments Blood Pressure 113/82 03/22/2025 11:24 PM LAND RECLAMATION SPECIALIST Pulse 66 03/22/2025 6:52 PM LAND RECLAMATION SPECIALIST Temperature 36.8 C (98.2 F) 03/22/2025 6:52 PM LAND RECLAMATION SPECIALIST Respiratory Rate 18 03/22/2025 6:52 PM LAND RECLAMATION SPECIALIST Oxygen Saturation 98% 03/22/2025 6:52 PM LAND RECLAMATION SPECIALIST Inhaled Oxygen Concentration - - Weight 55.2 kg (121 lb 11.1 oz) 03/22/2025 6:52 PM LAND RECLAMATION SPECIALIST Height 160 cm (5' 3) 03/22/2025 6:52 PM LAND RECLAMATION SPECIALIST Body Mass Index 21.56 03/22/2025 6:52 PM LAND RECLAMATION SPECIALIST Plan of Treatment Health Maintenance Due Date [...] 2024 11/27/2020, 11/06/2020 Influenza Adult (#1) 2025 04/10/2024, 04/02/2022 Cervical Cancer Screening Pa p Smear [...] Name Priority Date/Time Associated Diagnosis Comments URINALYSIS STAT 03/22/2025 10:20 PM LAND RECLAMATION SPECIALIST CULTURE, BACTERIA, BLOOD STAT 03/22/2025 8:30 PM LAND RECLAMATION SPECIALIST MAGNESIUM STAT 03/22/2025 8:30 PM LAND RECLAMATION SPECIALIST LACTIC ACID W REFLEX (SEPSIS) STAT 03/22/2025 8:30 PM LAND RECLAMATION SPECIALIST COMPREHENSIVE METABOLIC PANEL STAT 03/22/2025 8:30 PM LAND RECLAMATION SPECIALIST HC CBC AUTO W/AUTO DIFF STAT 03/22/20 8:30 PM LAND RECLAMATION SPECIALIST RESPIRATORY PCR PNL LIMITED STAT 03/21/2025 8:24 PM LAND RECLAMATION SPECIALIST LACTIC ACID W REFLEX (SEPSIS) TIMED 03/21/2025 8:00 PM LAND RECLAMATION SPECIALIST CT CHEST+ABD+PEL W CON STAT 7:21 PM LAND RECLAMATION SPECIALIST POCT URINE (BACK OFFICE) STAT 03/21/2025 6:50 PM LAND RECLAMATION SPECIALIST CULTURE, BACTERIA, BLOOD STAT 03/21/2025 6:09 PM LAND RECLAMATION SPECIALIST ECG 12-LEAD Routine 03/21/2025 6:06 PM LAND RECLAMATION SPECIALIST LACTIC ACID W REFLEX (SEPSIS) STAT 03/21/2025 6:03 PM LAND RECLAMATION SPECIALIST MAGNESIUM STAT 03/21/2025 6:03 PM LAND RECLAMATION SPECIALIST LIPASE STAT 03/21/2025 6:03 PM LAND RECLAMATION SPECIALIST CK (CPK) STAT 03/21/2025 6:03 PM LAND RECLAMATION SPECIALIST COMPREHENSIVE METABOLIC PANEL STAT 03/21/2025 6:03 PM LAND RECLAMATION SPECIALIST PARTIAL THROMBOPLASTIN TIME,PTT STAT 03/21/2025 6:03 PM LAND RECLAMATION SPECIALIST PROTHROMBIN TIME, VENOUS STAT 03/21/2025 6:03 PM LAND RECLAMATION SPECIALIST HC CBC AUTO W/AUTO DIFF STAT 03/21/20 6:03 PM LAND RECLAMATION SPECIALIST CULTURE, BACTERIA, BLOOD STAT 03/21/2025 5:59 PM LAND RECLAMATION SPECIALIST LACTIC ACID W REFLEX (SEPSIS) STAT 02/09/2025 5:42 PM LAND RECLAMATION SPECIALIST BASIC METABOLIC PANEL STAT 02/09/2025 5:42 PM LAND RECLAMATION SPECIALIST CBC W/DIFF AUTOMATED STAT 02/09/2025 5:42 PM LAND RECLAMATION SPECIALIST PATHOLOGY Routine 01/25/2025 12:00 AM CDT FLOW CYTOMETRY (LEUKEMIA/LYMPHOMA PANEL) Routine 01/24/2025 11:29 PM CDT HC HCG QL STAT 01/24/2025 11:29 PM CDT HC COMPREHENSIVE METABOLIC PANEL STAT 01/24/2025 11:29 PM CDT HC CBC AUTO W/AUTO DIFF STAT 01/25/20 11:29 PM CDT from Last 3 Months Results * URINALYSIS (03/22/2025 10:20 PM LAND RECLAMATION SPECIALIST) SPECIMEN TYPE URINE CLEAN CATCH 03/22/2025 10:24 PM [facility] COLOR (U) LIGHT YELLOW 03/22/2025 10:33 PM [facility] TRANSPARENCY CLEAR 03/22/2025 10:33 PM [facility] SPECIFIC GRAVITY (U) 1.019 1.001 - 1.030 03/22/2025 10:33 PM [facility] U PH 7.0 5.0 - 9.0 03/22/2025 10:33 PM [facility] LEUKOCYTES (U) NEGATIVE NEGATIVE 03/22/2025 10:33 PM [facility] NITRITES NEGATIVE NEGATIVE 03/22/2025 10:33 PM [facility] PROTEIN RANDOM (U) NEGATIVE <30 MG/DL 03/22/2025 10:33 PM [facility] GLUCOSE (U) NORMAL NORMAL MG/DL 03/22/2025 10:33 PM [facility] KETONES MG/DL (U) NEGATIVE NEGATIVE MG/DL 03/22/2025 10:33 PM LAND RECLAMATION SPECIALIST [facility] UROBILINOGEN NORMAL NORMAL MG/DL 03/22/2025 10:33 PM LAND RECLAMATION SPECIALIST [facility] BILIRUBIN (U) NEGATIVE NEGATIVE MG/DL 03/22/2025 10:33 PM LAND RECLAMATION SPECIALIST [facility] BLOOD (U) NEGATIVE NEGATIVE 03/22/2025 10:33 PM LAND RECLAMATION SPECIALIST [facility] URINE URINE SPECIMEN OBTAINED BY CLEAN CATCH PROCEDURE / Unknown 03/22/2025 10:20 PM LAND RECLAMATION SPECIALIST us Abby WEATHERS URINE ORDERABLES Final Result Performing Organization Address City/[facility] Co de Phone Number [facility] [address] [place] [address], [place] [phone] * (ABNORMAL) MAGNESIUM (03/22/2025 8:30 PM LAND RECLAMATION SPECIALIST) Only the most recent of2 resultswithin the time period is included. MAGNESIUM 1.6(L) 1.8 - 2.4 MG/DL 03/22/2025 9:21 PM LAND RECLAMATION SPECIALIST [facility] BLOOD VENOUS BLOOD SPECIMEN / Unknown 03/22/2025 8:30 PM LAND RECLAMATION SPECIALIST us Abby [facility] Final Result [facility] [address] [place] [address], [place] [phone] * (ABNORMAL) COMPREHENSIVE METABOLIC PANEL (03/22/2025 8:30 PM LAND RECLAMATION SPECIALIST) Only the most recent of2 resultswithin the time period is included. GLUCOSE 92 70 - 99 MG/DL 03/22/2025 9:21 PM LAND RECLAMATION SPECIALIST [facility] BUN 14 7 - 18 MG/DL 03/22/2025 9:21 PM [facility] CREATININE S/P/B 0.62 0.55 - 1.02 MG/DL 03/22/2025 9:21 PM [facility] SODIUM S/P/B 142 136 - 145 MMOL/L 03/22/2025 9:21 PM [facility] POTASSIUM S/P/B 3.6 3.5 - 5.1 MMOL/L 03/22/2025 9:21 PM [facility] CHLORIDE S/P/B 105 97 - 115 MMOL/L 03/22/2025 9:21 PM [facility] CO2 29.1 21 - 32 MMOL/L 03/22/2025 9:21 PM [facility] CALCIUM S/P/B 8.6 8.5 - 10.1 MG/DL 03/22/2025 9:21 PM [facility] BILIRUBIN TOTAL S/P/B 0.2 0.2 - 1.2 MG/DL 03/22/2025 9:21 PM [facility] Comment: THIS ASSAY IS NOT RECOMMENDED FOR PATIENTS UNDERGOING TREATMENT WITH ELTROMBOPAG DUE TO THE POTENTIAL FOR FALSELY ELEVATED RESULTS. TOTAL PROTEIN S/P/B 6.1(L) 6.4 - 8.2 G/DL 03/22/2025 9:21 PM [facility] ALBUMIN S/P/B 3.5 3.4 - 5.0 G/DL 03/22/2025 9:21 PM [facility] AST 13(L) 15 - 37 U/L 03/22/2025 9:21 PM [facility] ALT 24 14 - 55 U/L 03/22/2025 9:21 PM [facility] ALKALINE PHOSPHATASE S/P/B 109 50 - 136 U/L 03/22/2025 9:21 PM LAND RECLAMATION SPECIALIST [facility] ANION GAP 7.9 2 - 10 MMOL/L 03/22/2025 9:21 PM [facility] BUN CREATININE RATIO 22.4 6 - 26 03/22/2025 9:21 PM [facility] A/G RATIO 1.3 1.0 - 2.0 RATIO 03/22/2025 9:21 PM [facility] GFR ESTIMATE >90 >90 ML/MIN/1.7 3 M2 03/22/2025 9:21 PM [facility] Comment: NOTE: eGFR is not calculated for patients <18 years of age or gender unknown. This is an estimated GFR calculation using the new CKD EPI creatinine equation without race and so does not require a correction factor for race. This estimated GFR should not be used for calculating drug doses. BLOOD VENOUS BLOOD SPECIMEN / Unknown 03/22/2025 8:30 PM LAND RECLAMATION SPECIALIST Abby [facility] Final Result [facility] [address] [place] [address], [place] [phone] * (ABNORMAL) CBC W/DIFF AUTOMATED (03/22/2025 8:30 PM LAND RECLAMATION SPECIALIST) Only the most recent of2 resultswithin the time period is included. WBC 10.05 4.5 - 11.0 x10'3/uL 03/22/2025 9:06 PM LAND RECLAMATION SPECIALIST [facility] RBC 2.45(L) 4.20 - 5.40 x10'6/uL 03/22/2025 9:06 PM LAND RECLAMATION SPECIALIST [facility] HGB 7.5(L) 12.0 - 16.0 G/DL 03/22/2025 9:06 PM LAND RECLAMATION SPECIALIST [facility] HCT 23.4(L) 38.0 - 48.0 % 03/22/2025 9:06 PM [facility] MCV 95.5 81.0 - 99.0 FL 03/22/2025 9:06 PM [facility] MCH 30.6 27.0 - 31.0 PG 03/22/2025 9:06 PM [facility] MCHC 32.1 32.0 - 36.0 G/DL 03/22/2025 9:06 PM [facility] RDW 16.9(H) 11.5 - 14.5 % 03/22/2025 9:06 PM [facility] PLT 120(L) 130 - 400 x10'3/uL 03/22/2025 9:06 PM [facility] MPV 10.7 9.3 - 12.2 FL 03/22/2025 9:06 PM [facility] DIFFERENTIAL TYPE MANUAL DIFFERENTIAL 03/22/2025 9:35 PM [facility] SEG NEUTROPHILS 19 % 9:35 PM [facility] LYMPHOCYTES 81 % 03/22/2025 9:35 PM [facility] ABS. NEUTROPHILS 1.91 1.80 - 7.70 x10'3/uL 03/22/2025 9:35 PM [facility] ABS. LYMPHOCYTES 8.14(H) 1.00 - 4.80 x10'3/uL 03/22/2025 9:35 PM [facility] RBC MORPHOLOGY RBC MORPHOLOGY APPEARS NORMAL. SLIDE REVIEWED. 03/22/2025 9:35 PM [facility] PLT EST. ADEQUATE 03/22/2025 9:35 PM [facility] BLOOD VENOUS BLOOD SPECIMEN / Unknown 03/22/2025 8:30 PM LAND RECLAMATION SPECIALIST Abby [facility] Final Result [facility] [address] [place] [address], [place] [phone] * (ABNORMAL) LACTIC ACID W REFLEX (SEPSIS) (03/22/2025 8:30 PM LAND RECLAMATION SPECIALIST) Only the most recent of4 resultswithin the time period is included. LACTIC ACID VENOUS 2.1(H) 0.4 - 2.0 MMOL/L 03/22/2025 9:23 PM LAND RECLAMATION SPECIALIST [facility] Comment: Critical Result(s) Called at: 21:22:26 on 03/22/2025 by: PAVEL PADGETT to and read back by:TERESA SHANNON BLOOD VENOUS BLOOD SPECIMEN / Unknown 03/22/2025 8:30 PM LAND RECLAMATION SPECIALIST Abby [facility] Final Result [facility] [address] [place] [address], [place] [phone] * RESPIRATORY PCR PNL LIMITED (FLU A/FLU B/RSV/COVID) (03/21/2025 8:24 PM LAND RECLAMATION SPECIALIST) SPEC DESCRIPTION NASOPHARYNGEAL SWAB 03/21/2025 8:24 PM LAND RECLAMATION SPECIALIST [facility] CORONAVIRUS SARS COV 2 PCR (RESP) NEGATIVE NEGATIVE 03/21/2025 9:21 PM LAND RECLAMATION SPECIALIST [facility] INFLUENZA A PCR (RESP) NEGATIVE NEGATIVE 03/21/2025 9:21 PM LAND RECLAMATION SPECIALIST [facility] INFLUENZA B PCR (RESP) NEGATIVE NEGATIVE 03/21/2025 9:21 PM LAND RECLAMATION SPECIALIST [facility] RSV PCR (RESP) NEGATIVE NEGATIVE 03/21/2025 9:21 PM LAND RECLAMATION SPECIALIST [facility] SWAB NASOPHARYNGEAL STRUCTURE / Unknown 03/21/2025 8:24 PM LAND RECLAMATION SPECIALIST Clyde Raygoza MD MICROBIOLOGY - GENERAL ORDERABL ES Final Result [facility] [address] [place] [address], * CT CHEST+ABD+PEL W CON (03/21/2025 7:21 PM LAND RECLAMATION SPECIALIST) Anatomical Region Laterality Modality Chest, Abdomen, Pelvis Computed Tomography 03/21/2025 7:24 PM LAND RECLAMATION SPECIALIST Impressions 03/21/2025 7:42 PM LAND RECLAMATION SPECIALIST IMPRESSION: 1. Innumerable enlarged lymph nodes in the chest, abdomen, and pelvis consistent with the patient's known history of Hodgkin's lymphoma. Multiple lymph nodes in the abdomen have increased in size compared to examination from 2022. 2. Marked hepatosplenomegaly, increased from the prior examination.. Preliminary: James Chaves MD03/21/2025 7:39 PM The attending radiologist has reviewed the image(s) and agrees with the content of this report. Ordered By: CLYDE RAYGOZA Interpreted By: James Chaves MD, 03/21/2025 7:24 PM Narrative 03/21/2025 7:42 PM LAND RECLAMATION SPECIALIST [facility] [address] [place], [place] [address] Examination: CT CHEST+ABD+PEL W CON Exam time: 03/21/2025 7:05 PM Clinical history: Hodgkin's lymphoma. Increasing weakness and fatigue for 3 days. Patient's last chemotherapy treatment was on . Comparison: CT abdomen and pelvis and CT chest 03/23/2023 Technique: CT scan of the chest, abdomen and pelvis was performedafter uneventful administration of 100 cc Isovue-370.Coronal and sagittal reformatted images were reviewed. A dose lowering technique was used for this procedure, which may include, but is not limited to, dose reduction technique, automated exposure control, iterative reconstruction, ALARA (As Low As Reasonably Achievable), or Image Gently techniques. Findings: THORAX: No focal consolidation is seen within the lungs. No new or enlarging pulmonary nodules. There are no pleural effusions. No pneumothorax. No central airway abnormality. The heart is normal in size. There is no pericardial effusion. The aorta and main pulmonary arteries are normal in caliber. There are enlarged bilateral axillary lymph nodes which appear smaller compared to examination from 2022. ABDOMEN: There is marked hepatosplenomegaly. No focal hepatic lesion. Portal edema is noted. The gallbladder is decompressed which limits evaluation.. There is no biliary ductal dilatation. No peripancreatic inflammatory stranding, pancreatic mass, or pancreatic ductal dilatation. No adrenal nodule. the kidneys enhance symmetrically. No solid renal mass. No hydronephrosis. No Ureterolithiasis. There are innumerable markedly enlarged retroperitoneal lymph nodes. For example, a 4.7 x 5.9 cm periportal lymph node on series 2 image 114 which has increased in size. The prior examination. There is a large conglomeration of lymph nodes which encases the aorta and IVC as can be seen on series 2 image 102. This measures approximately 9.9 x 3.9 cm and appears more prominent from the prior examination. The abdominal aorta is normal in caliber. The abdominal aorta and its branches are patent. The stomach is normal. No small bowel obstruction. PELVIS: The colon is normal in caliber. The uterus is retroverted but otherwise appears unremarkable.The ovaries are unremarkable.Urinary bladder is within normal limits. There are enlarged bilateral iliac chain and bilateral inguinal lymph nodes. For example, a 1.7 cm left external iliac lymph node on series 2 image 174 which is similar in size compared to the prior exam.Pelvic phleboliths are present. MUSCULOSKELETAL: No acute fracture. No destructive osseous lesion. Procedure Note Silvino Mackenzie MD - 03/21/2025 [facility] [place] [address] Examination: CT CHEST+ABD+PEL W CON Exam time: 03/21/2025 7:05 PM Clinical history: Hodgkin's lymphoma. Increasing weakness and fatigue for3 days. Patient's last chemotherapy treatment was on . Comparison: CT abdomen and pelvis and CT chest 03/23/2023 Technique: CT scan of the chest, abdomen and pelvis was performedafteruneventful administration of 100 cc Isovue-370.Coronal and sagittalreformatted images were reviewed. A dose lowering technique was used forthis procedure, which may include, but is not limited to, dose reductiontechnique, automated exposure control, iterative reconstruction, ALARA (AsLow As Reasonably Achievable), or Image Gently techniques. Findings: THORAX: No focal consolidation is seen within the lungs. No new or enlargingpulmonary nodules. There are no pleural effusions. No pneumothorax. Nocentral airway abnormality. The heart is normal in size. There is nopericardial effusion. The aorta and main pulmonary arteries are normal incaliber. There are enlarged bilateral axillary lymph nodes which appearsmaller compared to examination from 2022. ABDOMEN: There is marked hepatosplenomegaly. No focal hepatic lesion. Portal edemais noted. The gallbladder is decompressed which limits evaluation.. Thereis no biliary ductal dilatation. No peripancreatic inflammatory stranding,pancreatic mass, or pancreatic ductal dilatation. No adrenal nodule. thekidneys enhance symmetrically. No solid renal mass. No hydronephrosis. NoUreterolithiasis. There are innumerable markedly enlarged retroperitoneallymph nodes. For example, a 4.7 x 5.9 cm periportal lymph node on series 2image 114 which has increased in size. The prior examination. There is alarge conglomeration of lymph nodes which encases the aorta and IVC as canbe seen on series 2 image 102. This measures approximately 9.9 x 3.9 cmand appears more prominent from the prior examination. The abdominalaorta is normal in caliber. The abdominal aorta and its branches arepatent. The stomach is normal. No small bowel obstruction. PELVIS: The colon is normal in caliber. The uterus is retroverted but otherwiseappears unremarkable.The ovaries are unremarkable.Urinary bladder iswithin normal limits. There are enlarged bilateral iliac chain andbilateral inguinal lymph nodes. For example, a 1.7 cm left external iliaclymph node on series 2 image 174 which is similar in size compared to theprior exam.Pelvic phleboliths are present. MUSCULOSKELETAL: No acute fracture. No destructive osseous lesion. IMPRESSION: 1. Innumerable enlarged lymph nodes in the chest, abdomen, and pelvisconsistent with the patient's known history of Hodgkin's lymphoma.Multiple lymph nodes in the abdomen have increased in size compared toexamination from 2022. 2. Marked hepatosplenomegaly, increased from the prior examination.. Preliminary: James Chaves MD03/21/2025 7:39 PM The attending radiologist has reviewed the image(s) and agrees with thecontent of this report. Ordered By: CLYDE RAYGOZA Interpreted By: James Chaves MD, 03/21/2025 7:24 PM Clyde Raygoza MD CT Final Result * POCT URINE (03/21/2025 6:50 PM LAND RECLAMATION SPECIALIST) Pathologist [facility] URINE HCG TEST NEGATIVE NEGATIVE Internal Control: VALID VALID URINE URINE SPECIMEN OBTAINED BY CLEAN CATCH PROCEDURE / Unknown 03/21/2025 6:50 PM LAND RECLAMATION SPECIALIST Clyde Raygoza MD POINT OF CARE TEST ORDERABLES F inal Result * ECG 12 lead (03/21/2025 6:06 PM LAND RECLAMATION SPECIALIST) ECG QT 363 [facility] RAD ECG QTC 431 [facility] ([place]) RAD 03/21/2025 6:06 PM LAND RECLAMATION SPECIALIST Narrative [facility] RAD - 03/22/2025 9:34 AM LAND RECLAMATION SPECIALIST [address] Test Date: 2025-03-21 Pat Name: SOHA MARRERO Department: 41 Room: [id number] Gender: Female Track 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 Repairer: Koko : 1990 Requested By: CLYDE RAYGOZA Order Number: [id number] Reading MD: Nubia Abebe Measurements Intervals Hersey Rate: 84 P: 58 UT: 122 QRS: 35 QRSD: 92 T: 31 QT: 363 QTc: 431 Interpretive Statements SINUS RHYTHM POSSIBLE LEFT ATRIAL ENLARGEMENT [-0.1mV P-WAVE IN V1/V2] LOW QRS VOLTAGE IN PRECORDIAL LEADS [QRS DEFLECTION < 1.0 mV IN CHEST LEADS] RSR' pattern RECLAMATION SPECIALIST Procedure Note Nubia Abebe MD - 03/22/[address] Test Date: 2025-03-21 Pat Name: SOHA MARRERO Department: 41 Room: [place] [address] Gender: Female Track 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 Repairer: Koko : 1990 Requested By: CLYDE RAYGOZA Order Number: [id number] Reading MD: Nubia Abebe Measurements Intervals Hersey Rate: 84 P: 58 UT: 122 QRS: 35 QRSD: 92 T: 31 QT: 363 QTc: 431 Interpretive Statements SINUS RHYTHM POSSIBLE LEFT ATRIAL ENLARGEMENT [-0.1mV P-WAVE IN V1/V2] LOW QRS VOLTAGE IN PRECORDIAL LEADS [QRS DEFLECTION < 1.0 mV IN CHESTLEADS] RSR' pattern RECLAMATION SPECIALIST us Clyde Raygoza MD ECG ORDERABLES Final Result [facility] RAD * PROTIME/INR, VENOUS (03/21/2025 6:03 PM LAND RECLAMATION SPECIALIST) PROTIME 11.9 10.2 - 12.9 SEC 03/21/2025 6:40 PM LAND RECLAMATION SPECIALIST [facility] INR 1.0 03/21/2025 6:40 PM LAND RECLAMATION SPECIALIST [facility] Comment: Recommended INR Therapeutic Goals: 2.0-3.0 Routine Therapy 2.5-3.5 Mechanical Prosthetic Valves (High Risk) BLOOD VENOUS BLOOD SPECIMEN / Unknown 03/21/2025 6:03 PM LAND RECLAMATION SPECIALIST us Clyde Raygoza MD LABORATORY Final Result Performing Organization Address City/[facility]/ZIP Co de Phone Number [facility] [address] [place] [address], [place] [phone] * PARTIAL THROMBOPLASTIN TIME,PTT (03/21/2025 6:03 PM LAND RECLAMATION SPECIALIST) PTT 25.1 25.1 - 36.5 SEC 03/21/2025 6:40 PM LAND RECLAMATION SPECIALIST [facility] BLOOD VENOUS BLOOD SPECIMEN / Unknown 03/21/2025 6:03 PM LAND RECLAMATION SPECIALIST us Clyde Raygoza MD LABORATORY Final Result Performing Organization Address [facility] Co de Phone Number [facility] [address] [place] [address], [place] [phone] * LIPASE (03/21/2025 6:03 PM LAND RECLAMATION SPECIALIST) LIPASE 13 13 - 75 UNITS/L 03/21/2025 6:47 PM LAND RECLAMATION SPECIALIST [facility] BLOOD VENOUS BLOOD SPECIMEN / Unknown 03/21/2025 6:03 PM LAND RECLAMATION SPECIALIST us Clyde Raygoza MD LABORATORY Final Result Performing Organization Address City/[facility]/ZIP Co de Phone Number [facility] [address] [place] [address], [place] [phone] * CK (CPK) (03/21/2025 6:03 PM LAND RECLAMATION SPECIALIST) CPK 34 21 - 215 U/L 03/21/2025 6:47 PM LAND RECLAMATION SPECIALIST [facility] BLOOD VENOUS BLOOD SPECIMEN / Unknown 03/21/2025 6:03 PM LAND RECLAMATION SPECIALIST Clyde Raygoza MD LABORATORY Final Result [facility] [address] [place] [address], * BASIC METABOLIC PANEL (02/09/2025 5:42 PM LAND RECLAMATION SPECIALIST) Pathologist [facility] [facility] GLU[facility]SE 86 70 - 99 MG/DL 02/09/2025 6:19 PM [facility] BUN 11 7 - 18 MG/DL 02/09/2025 6:19 PM [facility] CREATININE S/P/B 0.72 0.55 - 1.02 MG/DL 02/09/2025 6:19 PM [facility] SODIUM S/P/B 140 136 - 145 MMOL/L 02/09/2025 6:19 PM [facility] POTASSIUM S/P/B 3.6 3.5 - 5.1 MMOL/L 02/09/2025 6:19 PM [facility] CHLORIDE S/P/B 104 97 - 115 MMOL/L 02/09/2025 6:19 PM [facility] CO2 31.1 21 - 32 MMOL/L 02/09/2025 6:19 PM [facility] CALCIUM S/P/B 9.1 8.5 - 10.1 MG/DL 02/09/2025 6:19 PM [facility] ANION GAP 4.9 2 - 10 MMOL/L 02/09/2025 6:19 PM [facility] BUN CREATININE RATIO 15.3 6 - 26 02/09/2025 6:19 PM LAND RECLAMATION SPECIALIST [facility] GFR ESTIMATE >90 >90 ML/MIN/1.7 3 M2 02/09/2025 6:19 PM LAND RECLAMATION SPECIALIST [facility] Comment: NOTE: eGFR is not calculated for patients <18 years of age or gender unknown. This is an estimated GFR calculation using the new CKD EPI creatinine equation without race and so does not require a correction factor for race. This estimated GFR should not be used for calculating drug doses. 02/09/2025 5:42 PM LAND RECLAMATION SPECIALIST Ronit Haque FEEDMOBILE DRIVER LABORATORY Final Resul t [facility] [address] [place] [address], [place] [phone] * (ABNORMAL) CBC W/DIFF AUTOMATED (02/09/2025 5:42 PM LAND RECLAMATION SPECIALIST) Only the most recent of2 resultswithin the time period is included. WBC 17.24(H) 4.5 - 11.0 x10'3/uL 02/09/2025 5:57 PM LAND RECLAMATION SPECIALIST [facility] RBC 2.90(L) 4.20 - 5.40 x10'6/uL 02/09/2025 5:57 PM LAND RECLAMATION SPECIALIST [facility] HGB 8.5(L) 12.0 - 16.0 G/DL 02/09/2025 5:57 PM LAND RECLAMATION SPECIALIST [facility] HCT 27.1(L) 38.0 - 48.0 % 02/09/2025 5:57 PM LAND RECLAMATION SPECIALIST [facility] MCV 93.4 81.0 - 99.0 FL 02/09/2025 5:57 PM LAND RECLAMATION SPECIALIST [facility] MCH 29.3 27.0 - 31.0 PG 02/09/2025 5:57 PM LAND RECLAMATION SPECIALIST [facility] MCHC 31.4(L) 32.0 - 36.0 G/DL 02/09/2025 5:57 PM LAND RECLAMATION SPECIALIST [facility] RDW 17.9(H) 11.5 - 14.5 % 02/09/2025 5:57 PM [facility] PLT 142 130 - 400 x10'3/uL 02/09/2025 5:57 PM [facility] MPV 9.9 9.3 - 12.2 FL 02/09/2025 5:57 PM [facility] DIFFERENTIAL TYPE MANUAL DIFFERENTIAL 02/09/2025 6:25 PM [facility] SEG NEUTROPHILS 10 % 6:25 PM [facility] LYMPHOCYTES 89 % 02/09/2025 6:25 PM [facility] MYELOCYTES 1 % 02/09/2025 6:25 PM [facility] ABS. NEUTROPHILS 1.72(L) 1.80 - 7.70 x10'3/uL 02/09/2025 6:25 PM [facility] ABS. LYMPHOCYTES 15.34(H) 1.00 - 4.80 x10'3/uL 02/09/2025 6:25 PM [facility] ABS. MYELOCYTES 0.17(H) 0.00 x10'3/uL 02/09/2025 6:25 PM [facility] RBC MORPHOLOGY RBC MORPHOLOGY APPEARS NORMAL. SLIDE REVIEWED. 02/09/2025 6:25 PM [facility] PLT EST. ADEQUATE 02/09/2025 6:25 PM [facility] 02/09/2025 5:42 PM LAND RECLAMATION SPECIALIST Ronit Haque FEEDMOBILE DRIVER LABORATORY Final Resul t [facility] [address] [place] [address], * Pathology (01/25/2025 12:00 AM CDT) PATHOLOGY [facility] Department of Laboratory Medicine [address] [place] [address] , extension [phone] Pathology Report Addendum Peripheral Smear Report Name: SOHA MARRERO Specimen #: [id number] Age: 11 1990 (Age: 34) Location: [facility] Sex: F Procedure Date: 01/25/2025 [facility] #: [id number] Date Received: 01/25/2025 Date Reported: Provider: KOKO [...] and she is currently being followed at [facility] for follicular lymphoma. There is no morphologic [...] case was interpreted and signed out at [facility], [address] [facility], [facility] [address]. Addenda/Procedures Addendum Date Ordered: 01/29/2025 Status: Signed Out Date Complete: 01/29/2025 By: LISY Guzman Reported: 01/29/2025 Addendum Diagnosis Peripheral blood, smear review: -Circulating follicular lymphoma cells; see comment Addendum Comment This addendum is created to report on the flow cytometry results performed on the peripheral blood. Flow cytometry ([id number]) demonstrates a kappa-restricted CD10 positive B-cell lymphoproliferative disorder with an immunophenotype compatible with the patient's history of follicular lymphoma. The overall morphologic/immunoph enotypic findings support circulating follicular lymphoma cells. This addendum was interpreted and signed out at [facility], [address] [place] [address]. [facility] 01/25/2025 01/25/2025 9:4 7 AM CDT Comment:Peripheral blood us Koko Johnson MD,PHD PATHOLOGY/CYTOLOGY ORDERAB LES Final Result [facility] [address] [place] [address], [phone] * Flow Cytometry (01/24/2025 11:29 PM CDT) FLOW CYTOMETRY RESULTS [facility] Department of Laboratory Medicine [address] [place] [address] , extension [phone] Pathology Report Flow Cytometry Report Name: SOHA MARRERO Specimen #: [id number] Age: 11 1990 (Age: 34) Location: [facility] Sex: F Procedure Date: 01/24/2025 Hospital #: [id number] Date Received: 01/25/2025 Date Reported: 01/29/2025 Provider: KOKO JOHNSON MD PHD Source: Peripheral blood (See report [id number]) FINAL DIAGNOSIS: Peripheral blood, smear review: -Kittanning-restricted CD10 positive B-cell lymphoproliferative disorder; see comment Diagnosis Comment: 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 Correlation with [id number] is recommended. Result: The sample is adequate with a viability of 98%. The B cells represent 77.8% of the lymphocytes, (89% of the total events analyzed) and coexpress CD19 dim, CD20 dim, CD10, and CD23 dim and are essentially negative for CD5 and CD200. Surface immunoglobulin light chains shows a Kittanning:Lambda ratio of >997.0 (99.7:<0.1). The T-cells represent 11% of lymphocytes (9.8% of total cellularity) with a CD4:CD8 ratio of 1.7. Tested: CD45, CD19, CD20, Surface Kittanning, Surface Lambda, CD5, CD10, CD38, CD34, CD14, CD117, CD4, CD8, CD3, CD7, CD56. This case was interpreted and signed out at [facility], [address] [place] [address]. Electronically Signed Out LISY COTE MD This test was developed and its performance characteristics determined by [facility]. It has not been cleared or approved by the U.S. Food and Drug Administration. However, the use of Analyte Specific Reagents does not require FDA approval. [facility] 01/24/2025 11:2 9 PM CDT 01/25/2025 12:10 PM CDT Comment:Peripheral blood (Se e report [id number]) us Koko Johnson MD,PHD PATHOLOGY/CYTOLOGY ORDERAB LES Final Result [facility] [address] [place] [address], [phone] * COMPREHENSIVE METABOLIC PANEL (01/24/2025 11:29 PM CDT) GLUCOSE 88 70 - 99 MG/DL 01/25/2025 12:20 AM CDT [facility] BUN 17 7 - 18 MG/DL 01/25/2025 12:20 AM CDT [facility] CREATININE S/P/B 0.87 0.55 - 1.02 MG/DL 01/25/2025 12:20 AM CDT [facility] SODIUM S/P/B 138 136 - 145 MMOL/L 01/25/2025 12:20 AM CDT [facility] POTASSIUM S/P/B 4.1 3.5 - 5.1 MMOL/L 01/25/2025 12:20 AM CDT [facility] CHLORIDE S/P/B 101 97 - 115 MMOL/L 01/25/2025 12:20 AM CDT [facility] CO2 31.4 21 - 32 MMOL/L 01/25/2025 12:20 AM CDT [facility] CALCIUM S/P/B 9.1 8.5 - 10.1 MG/DL 01/25/2025 12:20 AM CDT [facility] BILIRUBIN TOTAL S/P/B 0.4 0.2 - 1.2 MG/DL 01/25/2025 12:20 AM CDT [facility] Comment: THIS ASSAY IS NOT RECOMMENDED FOR PATIENTS UNDERGOING TREATMENT WITH ELTROMBOPAG DUE TO THE POTENTIAL FOR FALSELY ELEVATED RESULTS. TOTAL PROTEIN S/P/B 6.4 6.4 - 8.2 G/DL 01/25/2025 12:20 AM T [facility] ALBUMIN S/P/B 3.5 3.4 - 5.0 G/DL 01/25/2025 12:20 AM CDT [facility] AST 22 15 - 37 U/L 01/25/2025 12:20 AM CDT [facility] ALT 26 14 - 55 U/L 01/25/2025 12:20 AM CDT [facility] ALKALINE PHOSPHATASE S/P/B 119 50 - 136 U/L 01/25/2025 12:20 AM T [facility] ANION GAP 5.6 2 - 10 MMOL/L 01/25/2025 12:20 AM CDT [facility] BUN CREATININE RATIO 19.5 6 - 26 01/25/2025 12:20 AM CDT [facility] A/G RATIO 1.2 1.0 - 2.0 RATIO 01/25/2025 12:20 AM CDT [facility] GFR ESTIMATE >90 >90 ML/MIN/1.7 3 M2 01/25/2025 12:20 AM CDT [facility] Comment: NOTE: eGFR is [...] LABORATORY Final Resu lt Performing Organization Address City/[facility]/ZIP Co de Phone Number [facility] [address] [place] [address], [place] [phone] * Qualitative HCG (01/24/2025 11:29 PM CDT) PREG SCREEN-SERUM NEGATIVE 01/25/2025 12:11 AM CDT [facility] 01/24/2025 11:2 9 PM CDT Koko Johnson MD,PHD LABORATORY Final Resu lt [facility] [address] [place] [address], [place] [phone] from Last 3 Months Insurance [employer] Advance Directives Documents on File Type Date Recorded Patient Supervisory Cbp Officer Expl anation Legal Documents 05/21/2023 3:56 PM Care Teams Mucker Cofferdam Relationship Specialty Start Date End Date None, Provider, MD PCP - General UNKNOWN PHYSICIAN SPECIALTY 11/19/22
--- OUTSIDE RECORDS SUMMARY | 2025-03-25 16:32 | XMS_ITS | Encounter Summary ---
Author Organization [facility] Address [address] [place] [address] Care Team Providers Care Bronze Plater Name Role Phone None, Provider Primary Care Provider Unavaila ble Encounter Details Date Type Department Care Team (Late st Contact Info) Description 03/24/2025 Results Follow-Up [facility] Care [address] [facility] [address] Tunde Bess, PHYSICALLY IMPAIRED TEACHER [address] [place], [place] [address] CULTURE, BACTERIA, BLOOD Social History Tobacco Use Types Packs/Day Years [...] Sex Assigned at Female 02/09/2025 4:27 PM SOA INTEGRATION DEVELOPER Legal Sex Female 7:16 PM CDT Gender Identity Not on file Sexual Orientation Not on file documented as of this encounter Plan of Treatment Not on file documented as of this encounter Visit Diagnoses Not on filedocumented in this encounter Care Teams Bronze Plater Relationship Specialty Start Date End Date None, Provider, PCP - General UNKNOWN PHYSICIAN SPECIALTY 11/19/22 documented as of this encounter
--- OUTSIDE RECORDS SUMMARY | 2025-03-25 16:32 | XMS_ITS | Clinical Summary ---
Author Organization [facility] Address [address] [place] [address] Phone Care Team Providers Care Top Lifter Name Role Phone Gabriel Salmeron MD Unavailable [phone] Brooks Sosa MD Unavailable Provider, None Primary [...] Care Team Description 02/21/2025 Refill [facility] Oncology Services [address] [place] [address] Gabriel Salmeron MD Medication Refill [...] Recorded In the past 12 months has [employer], gas, oil, or water [employer] threatened to shut off services in your home? Yes 05/07/2023 Social Connection and Isolation Panel Answer Date Recorded In a typical week, how many times do you talk on the phone with family, friends, or neighbors? Once a week 05/07/2023 How often do you get together with friends or re latives? Once a week 05/07/2023 How often do you attend hinduism or christian serv ices? Never 05/07/2023 Do you belong to any clubs o r organizations such as hinduism groups, unions, fraternal or athletic groups, or [...] Total Score - Questions 1-9 9 06/06 [facility] - Occupational [...] Sex Assigned at Female 05/21/2023 11:44 AM METAL TREATER Legal Sex Female 5:17 PM CDT Gender Identity Female 05/21/2023 11:44 AM METAL TREATER Sexual Orientation Not on file Last Filed [...] change(07/29 4:12 PM CDT) Yes Janette Tom, MOUNTING INSPECTOR Note: Goal/Objective: Improve insight and understanding of behaviors and feelings. Anticipated Time Frame for Goal Completion: 6 months Goal Reviewed with: patient Readiness to change: Ready to change Department associated with goal: [facility] Steps to achieve goal: [...] a triggering event occurs Insurance MEDICAID [facility] Care Teams Top Lifter Relationship Specialty Start Date End Date Provider, None [place] PCP - General 06/17/24 Gabriel aSlmeron MD [address] [place] [address] Consulting Physician Medical Oncology 05/23/23 Brooks Sosa MD [address] [place] [phone] Consulting Physician Neurology 01/22/24 Kervin Jiang MD [address] [phone] Consulting Physician General Surgery 06/11/24
--- OUTSIDE RECORDS SUMMARY | 2025-03-25 16:32 | XMS_ITS | Encounter Summary ---
Author Organization [facility] Address [address] [place] [address] Care Team Providers Care Wincher Name Role Phone None, Provider Primary Care Provider Unavaila ble Encounter Details Date Type Department Care Team (Late st Contact Info) Description 03/24/2025 Results Follow-Up [facility] Care [address] [facility] [place] [address] Tunde Bess, TEXTILE STYLIST [address] [place], [place] [id number] CULTURE, BACTERIA, BLOOD, CULTURE, BACTERIA, BLOOD, RESPIRATORY PCR PNL LIMITED (FLU A/FLU B/RSV/COVID) Social History Tobacco Use Types Packs/Day Years [...] Sex Assigned at Female 02/09/2025 4:27 PM SHALE MINER Legal Sex Female 7:16 PM CDT Gender Identity Not on file Sexual Orientation Not on file documented as of this encounter Plan of Treatment Not on file documented as of this encounter Visit Diagnoses Not on filedocumented in this encounter Care Teams Wincher Relationship Specialty Start Date End Date None, Provider, PCP - General UNKNOWN PHYSICIAN SPECIALTY 11/19/22 documented as of this encounter
[2025-03-25 16:45] LABS: Influenza A QL RT-PCR Positive (Negative); Influenza B QL RT-PCR Negative (Negative); RSV RNA, RT-PCR Negative (Negative); SARS-CoV-2 RNA PCR Negative (Negative)
[2025-03-25] MEDS: IBUPROFEN 600 MG TABLET PO (17:01)
[2025-03-25] MEDS: SODIUM CHLORIDE 0.9% IV 1,000 ML 999 ML IV CONT (17:01)
[2025-03-25] MEDS: ACETAMINOPHEN 500 MG TABLET 1000 MG PO (17:02)
[2025-03-25] MEDS: oxyCODONE HCL (*CRX) 5 MG TAB IR PO (17:02)
[2025-03-25 17:11] LABS: Hematocrit 28.5 % (37.0-47.0); Hemoglobin 9.2 g/dL (12.0-15.0); Immature Granulocyte Percent A 0.1 % (0-0.5); Immature Platelet Fraction Pct 2.3 % (0.9-11.2); Lymphocytes Absolute Auto 9.16 K/mm3 (0.9-3.2); Mean Corpuscular HGB Conc 32.3 g/dl (32-36); Mean Corpuscular Hemoglobin 30.3 pg (26-34); Mean Corpuscular Volume 93.8 fl (80-100); Nucleated Red Blood Cells Absolute Auto 0.000 K/mm3 (0.0-0.012); Nucleated Red Blood Cells Perc 0.0 % (0.0-0.2); Platelet Count Result 91 k/mm3 (150-375); Red Blood Count 3.04 M/mm3 (4.2-5.4); White Blood Count 11.4 K/mm3 (4.5-10.0)
--- NOTE | 2025-03-25 17:18 | ED_ITS ---
HPI - General Adult General Chief complaint: Upper Respiratory Infection Stated complaint: I am in so much pain Time Seen by Provider: 03/25/25 16:05 History of Present Illness HPI narrative: Soha Marrero is a 35-year-old female who presents today with having URI symptoms that started yesterday. She says she has all over body aches, cough, congestion. She is febrile on arrival here. She is also currently on chemo and sees her physician on Friday for follow-up. She says that she was at [facility] yesterday and labs and chest x-ray done that were fine. Denies nausea/vomiting Related Data Home Medications ?Medication ?Instructions ?Recorded ?Confirmed ?Last Taken ?Type hydroxyzine HCl 25 mg tablet 25 mg PO TID 03/21/23 Unknown History methylprednisolone 4 mg tablets in mg 03/21/23 3 Unknown History a dose pack hydroxyzine HCl 25 mg tablet mg 09/30/23 Unknown Hist ory ibuprofen 600 mg tablet mg 09/30/23 Unknown History megestrol 400 mg/10 mL (40 mg/mL) mg 09/30/23 Unknown History oral suspension morphine 30 mg immediate release mg 09/30/23 Unknown History tablet ondansetron 4 mg disintegrating mg 09/30/23 Unknown H istory tablet pregabalin 50 mg capsule mg 09/30/23 Unknown History promethazine 25 mg rectal mg RECTAL 09/30/23 Unknown History suppository (Promethegan) valacyclovir 500 mg tablet mg 09/30/23 Unknown Histor y Allergies Allergy/AdvReac Type Severity Reaction Status Date / Time azithromycin AdvReac Nausea Verified 03/15/25 21:00 codeine AdvReac Vomiting Verified 03/15/25 21:00 diphenhydramine (From AdvReac Jittery Verified 03/15/25 21:00 Benadryl) pecan nut AdvReac Nausea and Verified 03/15/25 21:00 Vomiting Review of Systems 2 Review of Systems: All systems reviewed & are unremarkable except as noted in HPI and below PMFSH Past Medical History Medical History Lymphoma Drug-induced psychotic disorder Atypical bipolar disorder Anxiety MRSA infection buttock and leg during last lengthy incarceration (2020) Ectopic Methamphetamine abuse, episodic History of heroin use Surgical History Surgical History History of breast surgery 2018 or 2019, due to butane horse wrangler requiring I/D and subsequent wound care. L Side. History of salpingo-oophorectomy Social History Social History Social History: Currently living with boyfriend. Full Code. Surrogate decision maker - Isaiah Beverly (step-dad), if unavailable then Marlene Carbone (mom). Smoking packs per day: 1 Smoking cigarettes per day: 20.0 Years smoked: 11 Smoking pack-years: 11.00 Smoking status: Current every day smoker Tobacco type: cigarettes Alcohol intake: current Drinks per week: 1 Alcohol use details: social Substance use: former Substance use type: marijuana Other substance usage details: QUIT USING EARLY DEC 2022 D/T DIAGNOSIS & SURGERY Last use: last use of heroin-September 2014 Lack of Transportation: No Lack of Food: Never True Current Housing: I Have Housing Concerned About Future Housing: No Difficulty Paying Gas/Electric Bills: No Difficulty Paying for Meds: No Currently Unemployed: No Education: High School Diploma/GED Difficulty w/ Childcare or Family Care: No Living arrangements: with friend(s) Additional living arrangements comments: boyfriend Spiritual care concerns: No Exam 2 Narrative: GENERAL: Well-appearing, well-nourished, and in no acute distress. HEAD: Normocephalic, atraumatic. EYES: PERRLA and EOMI. ENT: Nares clear, no rhinorrhea or epistaxis. Mucous membranes moist. NECK: Supple. No adenopathy or masses. No carotid bruits or JVD CHEST: Clear to auscultation. No respiratory distress. No wheezes rales or rhonchi HEART: Regular rate and rhythm. No murmur heard. Normal peripheral pulses. ABDOMEN: Soft, nontender, nondistended, normal active bowel sounds. EXTREMITIES: Normal range of motion. No edema. SKIN: Warm, dry, no rash. NEURO: No focal deficits. Alert and oriented x3. PSYCH: Normal mood and affect. Course Vital Signs Vital signs: Vital Signs Temperature 38.2 C H 03/25/25 15:57 Pulse Rate 120 H 03/25/25 15:57 Respiratory Rate 20 03/25/25 15:57 Blood Pressure 106/63 03/25/25 15:57 Pulse Oximetry 98 03/25/25 15:57 Oxygen Delivery Room Air 03/25/25 15:57 Temperature 38.2 C H 03/25/25 15:57 Pulse Rate 120 H 03/25/25 15:57 Respiratory Rate 20 03/25/25 15:57 Blood Pressure 106/63 03/25/25 15:57 Pulse Oximetry 98 03/25/25 15:57 Oxygen Delivery Room Air 03/25/25 15:57 [facility] Narrative Medical decision making narrative: 35-year-old female with complaints of having upper respiratory infection symptoms that started yesterday. She states that she has had congestion, cough body aches pain all over not feeling well. On exam she is alert and oriented x4 warm to the touch she is febrile lung sounds are clear respirations are even unlabored Viral swab-positive for influenza A CMP-sodium 134 anion gap 14 liver unremarkable CBC mild leukocytosis 11.4, hemoglobin 9.2 which is improved from previous labs here hematocrit 28.5 which also improved Chest XR-no acute cardiopulmonary findings Patient updated on her results, she states that she is feeling better but she is asking for another round of pain medication. She has been taking 15 mg of oxycodone about q.4-6 hours prescribed from her physician to help with her pain from her lymphoma. She states that she is out of her pain medications asking for a dose of IV morphine just before she goes. I told her that we give her larger dose of the oxycodone since we had only given her 5 mg taking given her additional 10 mg before she goes out last longer than IV morphine but she should continue Tylenol Motrin to help with fever body aches regarding the flu and start the Tamiflu as ordered. She is agreeable to this plan denies any further at this time encouraged her to continue to follow-up with her physician of scheduled and to return for any new or worsening pain. Differential Diagnosis Differential Diagnosis: dehydration, URI, Pneumonia, Viral syndrome, Lab Data [facility] Lab Attestation statement: I personally reviewed the patient's lab results. 03/25/25 16:59 03/25/25 16:59 Labs: Lab Results 03/25/25 03/25/25 03/25/25 Range/Units 16:03 16:09 16:59 WBC 11.4 H (4.5-10.0) K/mm3 RBC 3.04 L (4.2-5.4) M/mm3 Hgb 9.2 L (12.0-15.0) g/dL Hct 28.5 L (37.0-47.0) % MCV 93.8 (80-100) fl MCH 30.3 (26-34) pg MCHC 32.3 (32-36) g/dl RDW 16.7 H (11.5-14.5) % Plt Count 91 L (150-375) k/mm3 MPV 9.5 (7.4-10.4) fl Immature Gran % (Auto) 0.1 (0-0.5) % Neut % (Auto) 17.8 L (45.5-73.1) % Lymph % (Auto) 80.6 H (18.3-44.2) % [place] % (Auto) 0.9 L (2.6-8.5) % Eos % (Auto) 0.1 (0-4.4) % Baso % (Auto) 0.5 (0.2-1.2) % Lymph # (Auto) 9.16 H (0.9-3.2) K/mm3 [place] # (Auto) 0.1 (0.1-0.6) K/mm3 Eos # (Auto) 0.0 (0-0.3) K/mm3 Baso # (Auto) 0.1 (0.0-0.1) K/mm3 Abs Immat Gran (auto) 0.01 (0.00-0.031) K/mm3 Absolute Neuts (auto) 2.0 (1.3-6.7) K/mm3 Absolute Nucleated RBC 0.000 (0.0-0.012) K/mm3 Band Neutrophils % Not Reportable Nucleated RBC % 0.0 (0.0-0.2) % Atypical Lymphocytes Present Smudge Cells Few Platelet Estimate Decreased (Adequate) % Immature Plt Fraction 2.3 (0.9-11.2) % Anisocytosis 1+ Ovalocytes 1+ Schistocytes None seen Sodium 134 L (137-145) mmol/L Potassium 3.9 (3.4-5.0) mmol/L Chloride 98 (98-107) mmol/L Carbon Dioxide 22 (22-30) mmol/L Anion Gap 14 H (4-12) mmol/L BUN 9 (7-17) mg/dL Creatinine 0.69 L (0.7-1.0) mg/dL Estim Creat Clear Calc 75 ml/min Estimated GFR > 60 (59 - ) Glucose 96 (65-110) mg/dL Calcium 9.7 (8.4-10.2) mg/dL Total Bilirubin 0.4 (0.2-1.3) mg/dL AST 35 (14-36) U/L ALT 23 (6-35) U/L Alkaline Phosphatase 85 (38-126) U/L Total Protein 7.0 (6.3-8.2) g/dL Albumin 4.5 (3.5-5.1) g/dL POC Urine HCG, Qual Negative (Negative) Influenza A (RT-PCR) Positive A (Negative) Influenza B (RT-PCR) Negative (Negative) RSV (RT-PCR) Negative (Negative) SARS-CoV-2 RNA (RT-PCR) Negative (Negative) Imaging Data Attestation: I personally reviewed and interpreted this imaging study as follows: Radiologist's impression: ITS Impressions Chest X-Ray 03/25/25 16:33 Impression: No acute cardiopulmonary abnormality. Discharge Plan Discharge Clinical Impression: Influenza A, Acute viral syndrome Fever Qualifiers: Fever type: unspecified Qualified Code(s): R50.9 - Fever, unspecified Patient Disposition: Home Condition: Stable Instructions: Antibiotic Form Additional Instructions: Start taking the Tamiflu twice a day for 5 days continue to take Tylenol and ibuprofen to help with the body aches and fever. Make sure drinking plenty of fluids. Please follow-up with your primary care doctor as scheduled in 2 days. If you develop any new worsening symptoms as was UA returns denies department. Patient Language: Swedish Prescriptions: New oseltamivir [Tamiflu] 75 mg capsule 75 mg PO Q12H 5 Days Qty: 10 0RF No Action oxycodone-acetaminophen [Percocet] 10-325 mg tablet 1 tablet PO Q4H PRN (Reason: pain) Qty: 5 0RF ondansetron 4 mg tablet,disintegrating 4 mg PO Q6H PRN (Reason: nausea and vomiting) Qty: 20 0RF hydroxyzine HCl 25 mg tablet 25 mg PO TID methylprednisolone 4 mg tablets,dose pack promethazine 25 mg suppository 25 mg RECTAL Q6H PRN (Reason: nausea and vomiting) Qty: 12 0RF ondansetron 4 mg tablet,disintegrating 4 mg PO Q8H PRN (Reason: nausea and vomiting) Qty: 30 0RF oxycodone-acetaminophen [Percocet] 10-325 mg tablet 1 tablet PO Q6H PRN (Reason: pain) Qty: 20 0RF ondansetron 4 mg tablet,disintegrating 4 mg PO Q8H PRN (Reason: nausea and vomiting) Qty: 10 0RF potassium chloride 20 mEq/15 mL liquid 20 meq PO DAILY 7 Days Qty: 105 0RF dicyclomine 10 mg capsule 10 mg PO BID PRN (Reason: abdominal pain) Qty: 20 0RF magnesium citrate Solution 150 ml PO DAILY PRN (Reason: constipation) Qty: 296 0RF psyllium husk [Metamucil] 0.4 gram capsule 0.4 g PO DAILY PRN (Reason: constipation) Qty: 30 0RF polyethylene glycol 3350 [Miralax] 17 gram/dose powder 17 g PO DAILY Qty: 119 0RF promethazine 25 mg suppository 25 mg RECTAL Q6H PRN (Reason: nausea and vomiting) Qty: 12 0RF megestrol 400 mg/10 mL (40 mg/mL) suspension promethazine [Promethegan] 25 mg suppository RECTAL valacyclovir 500 mg tablet morphine 30 mg tablet hydroxyzine HCl 25 mg tablet ibuprofen 600 mg tablet ondansetron 4 mg tablet,disintegrating pregabalin 50 mg capsule phenazopyridine [Pyridium] 200 mg tablet 200 mg PO TID Qty: 6 0RF amoxicillin-pot clavulanate 875-125 mg tablet 1 tablet PO Q12H Qty: 14 0RF Follow-up/Referrals: PHYSICIAN,HOURLY CAREGIVER [Primary Care Provider, Internal Medicine] Time of Disposition: 18:30
[2025-03-25 17:23] LABS: Alanine Aminotransferase 23 U/L (6-35); Albumin Level 4.5 g/dL (3.5-5.1); Alkaline Phosphatase 85 U/L (38-126); Anion Gap 14 mmol/L (4-12); Aspartate Amino Transferase 35 U/L (14-36); Bilirubin,Total 0.4 mg/dL (0.2-1.3); Blood Urea Nitrogen 9 mg/dL (7-17); Calcium 9.7 mg/dL (8.4-10.2); Carbon Dioxide 22 mmol/L (22-30); Chloride 98 mmol/L (98-107); Estimated CRCL calculation 75 ml/min; Estimated Glomerular Filt Rate > 60; Glucose 96 mg/dL (65-110); Potassium 3.9 mmol/L (3.4-5.0); Sodium 134 mmol/L (137-145); Total Protein 7.0 g/dL (6.3-8.2)
[2025-03-25 17:54] LABS: Smudge Cells FEW
[2025-03-25 17:55] LABS: Anisocytosis 1+; Ovalocytes 1+
[2025-03-25 17:56] LABS: Schistocytes None Seen
[2025-03-25 18:17] LABS: BEDSIDEPREGUCG Negative (Negative)
[2025-03-25] MEDS: OSELTAMIVIR PHOSPHATE 75 MG CAPSULE PO (18:55)
[2025-03-25] MEDS: oxyCODONE HCL (*CRX) 5 MG TAB IR 10 MG PO (18:56)
[2025-03-25 19:04] VITALS: BP 126/86; PULSE 101; RESP 16; TEMP 37; O2SAT 94
== END 2025-03-25 19:05 | disposition home or self-care (01) ==
PROVIDERS: Emergency Medicine; Emergency Provider Nurse Practitioner Family
DX: J10.1 Influenza due to other identified influenza virus with other respiratory manifestations (principal); F17.210 Nicotine dependence, cigarettes, uncomplicated; F41.9 Anxiety disorder, unspecified; F31.9 Bipolar disorder, unspecified; C85.90 Non-Hodgkin lymphoma, unspecified, unspecified site
CPT/HCPCS: 36415; 71046; 80053; 81025; 85025; 85055; 87637; 96360; 99283; A9270; J7030

== ENCOUNTER 2025-03-28 07:44 | Emergency (ER) | payer OTHER, SELFPAY ==
--- OUTSIDE RECORDS SUMMARY | 2024-10-11 14:40 | XMS_ITS ---
Author Organization [facility] Address [address] [place] [address] Phone [phone] Care Team Providers Care Plywood Patcher Name Role Phone Satya Fernandez Primary Care Provider [phone] REASON FOR VISIT 2 Week F/U Social History Sex Observation Social History Observation Description Sex Observation Female Sexual Orientation Social History Observation Description Sexual Orientation Straight or heterose xual Gender Identity Social History Observation Description Gender Identity Female Encounters Date Time Type Facility Location Provider Diagnosis 10/11/2024 02:40 PM Office Visit [facility] [place] [address] Satya Fernandez Plan Of Treatment Next Appt Details Provider Name:Satya Fernandez , 03/28/2025 10:40:00 AM, [place] [place], [address], Medical (General) History Medical History History ICD Code Bipolar 1 Disorder Alcohol Use Disorder Lymphoma Surgical History Surgery Date(Month/Year) Ectopic Open Chest Surgery Chemo Port 2022 Hospitalization History Reason Date(Month/Year) Kettler x2 Progress Notes * Soha MARRERO RDOB:[birth year] (35 yo F)Acc No.[id number]:10/11/2024 UNLOCKED PROGRESS NOTE Progress Notes Patient: Soha LLOYD Provider: Devin Fernandez :1990 A ge:34 Y S ex:Female Date:10/11/2024 Address:[address] [place] [address], [facility] Subjective: * Chief Complaints: * 1 . 2 Week F/U. * Screening: * * Medical History: Objective: * Vitals: Assessment: Plan: * Treatment: * * Electronic signature of Kar Fernandez , [id number] on 03/28/2025 at 07:48 AM WIRE PRODUCTS INSPECTOR Sign off status: Pending * Provider: Devin Fernandez Date: 0 10/11/2024 Generated for Cassie valero/Claire/Mervat on: 1 05/29/2024 07:48 AM WIRE PRODUCTS INSPECTOR
--- NOTE | ~2025-03-28 | XR_ITS ---
Examination: XR chest 2V Clinical History: SOB Comparison: 03/25/2025 Technique: PA and Lateral Findings: Cardiomediastinal silhouette normal size and configuration. Lungs clear. No acute bony abnormality. IMPRESSION: 1. No acute cardiopulmonary findings. Reviewed, dictated and finalized at location [facility]
--- OUTSIDE RECORDS SUMMARY | 2025-03-28 07:48 | XMS_ITS | Encounter Summary ---
Author Organization [facility] Address [address] [place] [address] Phone Care Team Providers Care Block Cableman Name Role Phone Gabriel Salmeron MD Unavailable Brooks Sosa MD Unavailable [phone] Provider, None Primary Care Provider UnavailKervin Rubi MD Unavailable Reason for Visit * Reason Comments Medication Refill Encounter Details Date Type Department Care Team (Late st Contact Info) Description 02/21/2025 Refill [facility] Oncology Services [address] [place] [address] Gabriel Salmeron MD [address] [place] [address] Medication Refill Social History Tobacco Use Types Packs/Day Years Used Date Smoking Tobacco: Every Day Cigarettes 1 15 Started: 04/07/2010 Passive Smoke Exposure: Current Smokeless Tobacco: Never Alcohol Use Standard Drinks/Week Comments Yes 2 (1 standard drink = 0.6 oz pur e alcohol) occasional [facility] Utilities Answer Date Recorded In the [...] week 05/07/2023 How often do you attend judaism or sikh serv ices? Never 05/07/2023 Do you belong to any clubs o r organizations such as judaism groups, unions, fraternal or athletic groups, or [...] Total Score - Questions 1-9 9 06/06 [facility] - [...] place to sleep or slept in a [facility] (including now)? No 05/07/2023 Sexually Active Control Partners Comments Yes Male Comments Unknown Sex and Gender Information Value Date Recorded Sex Assigned at Female 05/21/2023 11:44 AM EDITOR DEPARTMENT Legal Sex Female 5:17 PM CDT Gender Identity Female 05/21/2023 11:44 AM EDITOR DEPARTMENT Sexual Orientation Not on file documented as of this encounter Miscellaneous Notes * Telephone Encounter - Koffi Collins RN - 02/21/2025 1:53 PM CST Pt is no longer with our practice. OR DEPARTMENT documented in this encounter Plan of Treatment [...] change Department associated with goal: [facility] Steps to achieve goal: [...] documented as of this encounter Care Teams Block Cableman Relationship Specialty Start Date End Date Provider, None [place] PCP - General 06/17/24 Gabriel Salmeron MD [address] [place] [address] Consulting Physician Medical Oncology 05/23/23 Brooks Sosa MD [address] [place] [id number] Consulting Physician Neurology 01/22/24 Kervin Jiang MD [address] [phone] Consulting Physician General Surgery 06/11/24 documented as of this encounter
--- OUTSIDE RECORDS SUMMARY | 2025-03-28 07:48 | XMS_ITS | Encounter Summary ---
Author Organization [facility] Address [address] [place] [address] Care Team Providers Care Commercial Glazier Name Role Phone None, Provider Primary Care Provider Unavaila ble Encounter Details Date Type Department Care Team (Late st Contact Info) Description 03/24/2025 Results Follow-Up [facility] Care [address] [facility] [place] [address] Tunde Bess, HOB MACHINE OPERATOR [address] [place], [place] [id number] CULTURE, BACTERIA, BLOOD, CULTURE, BACTERIA, BLOOD, RESPIRATORY [...] Assigned at Female 02/09/2025 4:27 PM BOX PERSON Legal Sex Female 7:16 PM CDT Gender Identity Not on file Sexual Orientation Not on file documented as of this encounter Plan of Treatment Not on file documented as of this encounter Visit Diagnoses Not on filedocumented in this encounter Care Teams Commercial Glazier Relationship Specialty Start Date End Date None, Provider, PCP - General UNKNOWN PHYSICIAN SPECIALTY 11/19/22 documented as of this encounter
--- OUTSIDE RECORDS SUMMARY | 2025-03-28 07:48 | XMS_ITS | Encounter Summary ---
Author Organization [facility] Address [address] [place] [address] Care Team Providers Care Bowling Or Skating Front Desk Clerk Name Role Phone None, Provider Primary Care Provider Unavaila ble Encounter Details Date Type Department Care Team (Late st Contact Info) Description 03/24/2025 Results Follow-Up [facility] Care [address] [facility] [address] Tunde Bess, ALUMNI RELATIONS COORDINATOR [address] [place], [place] [id number] CULTURE, BACTERIA, BLOOD Social History Tobacco Use [...] Sex Assigned at Female 02/09/2025 4:27 PM WHEEL BORER Legal Sex Female 7:16 PM CDT Gender Identity Not on file Sexual Orientation Not on file documented as of this encounter Plan of Treatment Not on file documented as of this encounter Visit Diagnoses Not on filedocumented in this encounter Care Teams Bowling Or Skating Front Desk Clerk Relationship Specialty Start Date End Date None, Provider, PCP - General UNKNOWN PHYSICIAN SPECIALTY 11/19/22 documented as of this encounter
--- OUTSIDE RECORDS SUMMARY | 2025-03-28 07:48 | XMS_ITS | Encounter Summary ---
Author Organization [facility] Address [address] [facility] [place] [address] Care Team Providers Care Costume Design Teacher Name Role Phone Unavailable Primary Care Provider Unavailabl e Encounter Details Date Type Department Care Team (Late st Contact Info) Description 12/19/2022 Lab Requisition [facility] - Pathology Lab [address] [place] [address] Ishan Escobedo MD [address] [phone] Illness, unspecified Social History Tobacco [...] CDT) Case Report Surgical Pathology Report Case: [id number] Authorizing Provider: Ishan Escobedo MD Collected: 12/18/2022 09:00 AM Ordering Location: [facility] Care Pathology Lab Received: 12/19/2022 01:25 PM [...] CD10 co-expression. Axillary lymph node, flow cytometry ([id number]): - [place] light chain restricted CD10+ B-cell population detected (~99% of overall events) Also received from [facility] is a peripheral smear showing circulating follicular lymphoma cells with occasional nuclear clefts. The peripheral blood is involved by follicular lymphoma. 12/19/2022 3:33 PM CDT [facility] PATHOLOGY LAB Clinical History Suspect lymphoma. 12/19/2022 3:[address] [facility] PATHOLOGY LAB Materials Received Received are 4 slide(s) and 1 block labeled [id number] along with a copy of the outside pathology report. The materials originate from [facility], [address] [place] [address]. All original materials are returned to the referring institution, along with a copy of our final report. 12/19/2022 3:33 PM T [facility] PATHOLOGY LAB Pathologist Location at [facility] 12/19/2022 3:33 PM T [facility] PATHOLOGY LAB Disclaimer The performance characteristics of all immunohistochemical and indirect immunofluorescence stains (if any) cited in this report were determined by the Histopathology Laboratory of [facility]. Some of these tests were [...] (teaching) pathologist. 12/19/2022 3:33 PM T [facility] PATHOLOGY LAB Embedded Images 12/19/2022 3:33 PM T [facility] PATHOLOGY LAB Pathology/Cytolo gy BIOPSY OF LYMPH NODE / Unknown 12/18/2022 9:00 AM CDT 12/19/2022 1:25 PM CDT us Ishan Escobedo MD LAB - PATHOLOGY/CYTOLOGY ORDERAB LES Final Result [facility] PATHOLOGY LAB [address] [facility]. [address] [phone] documented in this encounter Visit Diagnoses Diagnosis Illness, unspecified documented in this encounter
--- OUTSIDE RECORDS SUMMARY | 2025-03-28 07:48 | XMS_ITS | Patient Health Record ---
Author Organization formerly [facility] Address [address] [place] [address] Phone [phone] Care Team Providers Care Grounds And Nursery Specialist Name Role Phone Rebecca Satya Primary Care Provider Richard Fish APRN Unavailable Minerva Peacock Unavailable Allergies Allergen (clinical drug [...] perineum Diagnosis 1 Boil (L02.92) Referral Organization [facility] Referring Provider First Name Satya Referring Provider Last Name Rebecca Referring Provider Speciality Internal M edicine Referred Provider Specialty Surgery General Notes Neda GUERO, Beena Beltran 01/2025 02:12:27 PM >confirmed taking clients insurance referral faxed letter mailed Clinical Notes [facility], [address] [facility] [address], [facility], , fax [phone] Referral Priority Urgent Addressed Referral details can [...] Notes Goals Interventions 10/13/19 25 PRAPARE (LOINC: 84674-8) Total Score: 6 What was your release date? 07/01/19 19 Date Completed/Updated: 07/02/2018 What is your current housing situation? 06359-2 I have housing (IL12201-2) Are you worried about losing your housing? 18807-0 No (LA32-8) What is the highest level of school that you have finished? 70655-1 High school diploma or GED (XQ25208-9) What is your current work situation? 79065-1 Unemployed and seeking work (RR53183-2) In the past year, have you o r any family members you live with been unable to get any of the following when it was really needed? Check all that apply 66440-3 I do not have problems meeting my needs Has lack of transportation k ept you from medical appointments, meetings, work or from getting things needed for daily living? 61055-3 No (LA32-8) How often do you see or talk to people that you care about and feel close to? (For example: talking to friends on the phone, visiting friends or family, going to congregational or club meetings) 23199-3 More than 5 times a week (QC45008-4) How stressed are you? Stress is when someone feels tense, nervous, anxious, or can\t sleep at night because their mind is troubled 14291-2 A little bit (BG26068-4) In the past year have you sp ent more than 2 nights in a row in a snf, fdc, longterm center, or juvenile correctional facility? 90985-9 Yes (LA33-6) Do you feel physically and e motionally safe where you currently live? 34111-0 Yes (LA33-6) In the past year, have you b een afraid of your partner or ex-partner? 96507-1 No (LA32-8) Are you a refugee? No What country are you from? [facility] PRAPARE Score: 6 Social History Miscellaneous Social [...] W/U Status Risk Notes Problem Tobacco user (726487114) Nicotine dependence, unspecified, uncomplicated (F17.200) Added On:2024 Active confirmed Problem Chronic rhinitis (98077384) Chronic rhinitis (J31.0) Added On:2024 Active confirmed Problem Anxiety (46218940) Anxiety (F41.9) Added On:2024 Active confirmed Problem Exacerbation of asthma (010880545) Asthma exacerbation (J45.901) Added On:2023 Active confirmed Problem Mild intermittent asthma (997363100) Mild intermittent asthma without complication (J45.20) Added On:2023 Active confirmed Problem Tobacco use (787356624) Tobacco use disorder (F17.200) Added On:2023 Active confirmed Problem Lymphoma involves multiple lymph node regions (finding) (899267064) Lymphoma of lymph nodes of multiple regions, 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) Added On:2023 Active confirmed Problem Opioid use disorder (1633946283) Opioid use disorder (F11.99) Added On:2018 Active [...] PM Office Visit, Est Pt., Level 3 (64350) [address] [place] [address] Minerva Mcallistereliezer Patient underweight R63.6 ; Opioid use disorder F11.99 ; Non-tobacco user Z78.9 and Nutritional counseling Z71.3 05/27/19 25 02:00 PM Office Visit, Est Pt., Level 3 (66496) Formerly [facility] [place] [address] Richard Fish Opioid use disorder F11.99 and Nicotine dependence, unspecified, uncomplicated F17.200 07/09/19 25 02:20 PM Office Visit, Est Pt., Level 3 (96356) Formerly [facility] [place] [address] Nguyenia Abe Opioid use disorder F11.99 and Nicotine dependence, unspecified, uncomplicated F17.200 08/20/19 25 02:00 PM Office Visit, Est Pt., Level 3 (13518) Formerly [facility] [place] [address] Nguyenbrissa Mendosanila Opioid use disorder F11.99 and Tobacco use disorder F17.200 10/02/19 09:40 AM Office Visit, Est Pt., Level 3 (90403) Formerly [facility] [place] [address] Satya Fernandez Opioid use disorder F11.99 ; Lymphoma of lymph nodes of multiple regions, unspecified lymphoma type C85.98 ; Tobacco use disorder F17.200 and Anxiety F41.9 10/13/19 01:40 PM Telehealth Office Visit, Est Pt., Level 3 (56868) [address] [address] Satya Fernandez Opioid use disorder F11.99 ; Lymphoma of lymph nodes of multiple regions, unspecified lymphoma type C85.98 and Anxiety F41.9 11/12/19 01:20 PM Office Visit, Est Pt., Level 3 (98499) [address] [address] Satya Fernandez Lymphoma of lymph nodes of multiple regions, unspecified lymphoma type C85.98 ; Opioid use disorder F11.99 and Anxiety F41.9 12/11/19 10:20 AM Office Visit, Est Pt., Level 3 (87061) [address] [address] Satya Fernandez Opioid use disorder F11.99 ; Anxiety F41.9 and Diarrhea R19.7 01/08/20 11:00 AM Office Visit, Est Pt., Level 4 (09247) [address] [address] Satya Fernandez Opioid use disorder F11.99 ; Anxiety F41.9 ; Boil L02.92 and Lymphoma of lymph nodes of multiple regions, unspecified lymphoma type C85.98 03/07/20 25 09:40 AM Office Visit, Est Pt., Level 3 (90937) [facility]ly [facility] [address] [place] [address] Satya Fernandez Anxiety F41.9 ; Opioid use disorder F11.99 ; Lymphoma of lymph nodes of multiple regions, unspecified lymphoma type C85.98 and Chronic rhinitis J31.0 03/18/20 25 04:26 PM Telephone Encounter [address] [place] [address] Satya Fernandez 09/25/19 25 03:16 PM Telephone Encounter [address] [place] [address] Richard Fish 10/14/19 04:28 PM Telephone Encounter [address] [facility] [place] [address] Satya Alvaradoner 10/29/19 25 02:07 PM Telephone Encounter [address] [place] [address] Richard Fish 11/04/19 25 09:04 AM Telephone Encounter [address] [place] [address] Satya Alvaradoner UTI symptoms R39.9 11/30/19 25 10:40 AM Telephone Encounter [address] [place] [address] Satya Fernandez Anxiety F41.9 01/04/20 25 11:14 AM Telephone Encounter [address] [place] [address] Satya Alvaradoner 01/05/20 25 03:50 PM Telephone Encounter [address] [place] [address] Satya Fernandez Anxiety F41.9 01/12/20 25 01:46 PM Telephone Encounter [address] [place] [address] Satya Fernandez Anxiety F41.9 01/13/20 25 01:23 PM Telephone Encounter [address] [place] [address] Satya Fernandez 03/23/20 25 01:13 PM Telephone Encounter [facility] [address] [facility] [place] [address] Satya Fernandez 09/28/19 10:47 AM Web Encounter Formerly [facility] [place] [address] Richard Fish 10/12/19 11:14 AM Web Encounter Formerly [facility] [place] [address] Satya Fernandez 10/21/19 11:23 PM Web Encounter [address] [place] [address] Satya Fernandez Lymphoma of lymph nodes of multiple regions, unspecified lymphoma type C85.98 ; Anxiety F41.9 and Opioid use disorder F11.99 10/26/19 09:41 AM Web Encounter Formerly [facility] [address] [facility] [place] [address] Satya Fernandez 10/26/19 09:44 AM Web Encounter [address] [facility] [place] [address] Satya Fernandez 10/26/19 09:44 AM Web Encounter [address] [facility] [place] [address] Satya Fernandez 10/26/19 10:08 AM Web Encounter [address] [facility] [place] [address] Satya Fernandez 10/26/19 01:59 PM Web Encounter [facility]ly [facility] [place] [address] Satya Fernandez Lymphoma of lymph nodes of multiple regions, unspecified lymphoma type C85.98 ; Anxiety F41.9 and Opioid use disorder F11.99 10/27/19 11:50 AM Web Encounter [address] [place] [address] Satya Fernandez 10/27/19 07:56 PM Web Encounter [address] [place] [address] Satya Fernandez 11/24/19 03:12 AM Web Encounter [facility]ly [facility] [place] [address] Satya Fernandez Lymphoma of lymph nodes of multiple regions, unspecified lymphoma type C85.98 and Anxiety F41.9 12/08/19 11:26 AM Web Encounter [address] [place] [address] Satya Fernandez 12/08/19 11:26 AM Web Encounter [address] [place] [address] Satya Fernandez Lymphoma of lymph nodes of multiple regions, unspecified lymphoma type C85.98 12/20/19 10:59 AM Web Encounter [facility]ly [facility] [place] [address] Satya Fernandez Lymphoma of lymph nodes of multiple regions, unspecified lymphoma type C85.98 12/22/19 02:08 PM Web Encounter [address] [place] [address] Satya Fernandez 12/28/19 10:47 AM Web Encounter [address] [place] [address] Satya Fernandez Lymphoma of lymph nodes of multiple regions, unspecified lymphoma type C85.98 and Anxiety F41.9 12/28/19 10:47 AM Web Encounter [address] [place] [address] Satya Fernandez 01/04/20 02:05 AM Web Encounter [address] [place] [address] Satya Fernandez Lymphoma of lymph nodes of multiple regions, unspecified lymphoma type C85.98 01/11/20 11:14 AM Web Encounter [address] [place] [address] Satya Fernandez 01/11/20 11:14 AM Web Encounter [address] [place] [address] Satya Fernandez 01/11/20 11:14 AM Web Encounter [address] [place] [address] Satya Fernandez Opioid use disorder F11.99 and Anxiety F41.9 01/12/20 02:11 PM Web Encounter [address] [address] Satya Fernandez 01/13/20 12:17 PM Web Encounter [address] [address] Satya Fernandez 01/13/20 12:20 PM Web Encounter [address] [address] Satya Fernandez 01/13/20 01:26 PM Web Encounter [address] [address] Satya Fernandez 01/25/20 02:08 AM Web Encounter [address] [address] Satya Fernandez 01/25/20 02:08 AM Web Encounter [address] [address] Satya Fernandez 01/25/20 02:17 PM Web Encounter [address] [address] Satya Fernandez 01/26/20 11:02 AM Web Encounter [address] [address] Satya Fernandez 01/26/20 01:11 PM Web Encounter [address] [address] Satya Fernandez 01/26/20 01:11 PM Web Encounter [address] [address] Satya Fernandez Anxiety F41.9 02/01/20 11:11 AM Web Encounter [address] [address] Satya Fernandez Opioid use disorder F11.99 and Anxiety F41.9 02/01/20 11:11 AM Web Encounter [address] [place] [address] Satya Fernandez 02/09/20 12:11 AM Web Encounter [address] [address] Satya Fernandez 02/09/20 12:11 AM Web Encounter [address] [address] Satya Fernandez 02/09/20 12:11 AM Web Encounter [address] [address] Satya Alvaradoner Anxiety F41.9 02/09/20 12:11 AM Web Encounter [address] [address] Satya Fernandez Opioid use disorder F11.99 02/09/20 09:26 PM Web Encounter [address] [address] Satya Fernandez 02/09/20 09:26 PM Web Encounter [address] [address] Satya Fernandez 02/22/20 25 09:08 AM Web Encounter [address] [address] Satya Fernandez 02/22/20 09:08 AM Web Encounter [address] [address] Satya Fernandez Anxiety F41.9 03/08/20 02:20 PM Web Encounter [address] [address] Satya Fernandez 03/23/20 25 11:20 AM Web Encounter [address] [address] Satya Fernandez Anxiety F41.9 Assessments Encounter Date [...] Provider Name:Satya Fernandez , 03/28/2025 10:40:00 AM, [address], [place], [address], Insurance Providers Payer Name Payer Address Payer Phone Subscriber Number Group Number Insured Name Patient Relationship to Insured Coverage Start Date Coverage End Date [employer] [address] [place] [address] [id number] Soha Marrero Self - patient is the insured 2 [employer] [address] [place] [address] [id number] Soha Marrero Self - patient is the insured 4 Medical (General) History Medical History History ICD Code Bipolar 1 Disorder Alcohol Use Disorder Lymphoma Surgical History Surgery Date(Month/Year) Ectopic Open Chest Surgery Chemo Port 2022 Hospitalization History Reason Date(Month/Year) Clotilde huggins
--- OUTSIDE RECORDS SUMMARY | 2025-03-28 07:48 | XMS_ITS | Clinical Summary ---
Author Organization [facility] Address [address] [place] [address] Care Team Providers Care Pc Technician Name Role Phone Unavailable Primary Care Provider Unavailabl e Source Comments [facility],non-owned Affiliates and Associated Physician Practices is amultiple site organization consisting of ambulatory clinics and hospital sitesin [place], [place], [place] and [place]. This disclosure is being madepursuant to the Care Everywhere program and may not contain all information available regarding this patient. Last updated 17.[facility] Social History Tobacco Use Types Packs/Day Years [...] age to complete this topic Insurance [facility] SELF PAY NO INSURANCE Member Subscriber Plan / Payer (Ef fective for All Dates) Name:Soha Javier Member ID:Not on file Relation to Subscriber:Not on file Name:SOHA JAVIER Subscriber ID:Not on file (Home) Address: [address] [place] [address] Payer ID:Not on file Group ID:Not on file Type:Self Pay Address: [place], [place] [facility]
--- OUTSIDE RECORDS SUMMARY | 2025-03-28 07:48 | XMS_ITS | Clinical Summary ---
Author Organization [facility] Address [address] [place] [address] Care Team Providers Care Cribber Name Role Phone None, Provider MD Primary [...] Department Care Team Description 03/24/2025 Results Follow-Up [facility] Care [facility] [place] [address] Tunde Bess APRN CULTURE, BACTERIA, BLOOD 03/24/2025 Results Follow-Up [facility] [place] [address] Tunde Bess APRN CULTURE, BACTERIA, BLOOD, CULTURE, BACTERIA, BLOOD, RESPIRATORY PCR PNL LIMITED (FLU A/FLU B/RSV/COVID) 03/22/2025 8:17 PM HYDRAULIC DREDGE OPERATOR - 03/22/2025 11:25 PM HYDRAULIC DREDGE OPERATOR Emergency [facility] [place] [address] Evie Pulido MD Medical Screening Discharge Disposition: Home or Self Care (Routine Discharge) 03/22/2025 Travel 03/21/2025 5:20 PM HYDRAULIC DREDGE OPERATOR - 03/21/2025 8:48 PM HYDRAULIC DREDGE OPERATOR Emergency [facility] [place] [address] Clyde Raygoza MD Weakness Discharge Disposition: Left Against Medical Advice 03/21/2025 Travel 02/09/2025 5:04 PM HYDRAULIC DREDGE OPERATOR - 02/09/2025 7:39 PM HYDRAULIC DREDGE OPERATOR Emergency [facility] [place] [address] Rishi Cote MD Medical Screening Discharge Disposition: Home or Self Care (Routine Discharge) 02/09/2025 Travel 01/27/2025 Results Follow-Up [facility] [address] [place] [address] Thalia Hall, BRASS MOLDER Pathology 01/24/2025 11:15 PM CDT - 01/25/2025 1:40 AM CDT Emergency [facility] [place] [address] Koko Johnson MD,PHD Mouth Sores Discharge Disposition: [...] Sex Assigned at Female 02/09/2025 4:27 PM HYDRAULIC DREDGE OPERATOR Legal Sex Female 7:16 PM CDT Gender Identity Not on file Sexual Orientation Not on file Last Filed Vital Signs Vital Sign Reading Time Taken Comments Blood Pressure 113/82 03/22/2025 11:24 PM HYDRAULIC DREDGE OPERATOR Pulse 66 03/22/2025 6:52 PM HYDRAULIC DREDGE OPERATOR Temperature 36.8 C (98.2 F) 03/22/2025 6:52 PM HYDRAULIC DREDGE OPERATOR Respiratory Rate 18 03/22/2025 6:52 PM HYDRAULIC DREDGE OPERATOR Oxygen Saturation 98% 03/22/2025 6:52 PM HYDRAULIC DREDGE OPERATOR Inhaled Oxygen Concentration - - Weight 55.2 kg (121 lb 11.1 oz) 03/22/2025 6:52 PM HYDRAULIC DREDGE OPERATOR Height 160 cm (5' 3) 03/22/2025 6:52 PM HYDRAULIC DREDGE OPERATOR Body Mass Index 21.56 03/22/2025 6:52 PM HYDRAULIC DREDGE OPERATOR Plan of Treatment Health Maintenance Due [...] Diagnosis Comments URINALYSIS STAT 03/22/2025 10:20 PM HYDRAULIC DREDGE OPERATOR CULTURE, BACTERIA, BLOOD STAT 03/22/2025 8:30 PM HYDRAULIC DREDGE OPERATOR MAGNESIUM STAT 03/22/2025 8:30 PM HYDRAULIC DREDGE OPERATOR LACTIC ACID W REFLEX (SEPSIS) STAT 03/22/2025 8:30 PM HYDRAULIC DREDGE OPERATOR COMPREHENSIVE METABOLIC PANEL STAT 03/22/2025 8:30 PM HYDRAULIC DREDGE OPERATOR HC CBC AUTO W/AUTO DIFF STAT 03/22/20 8:30 PM HYDRAULIC DREDGE OPERATOR RESPIRATORY PCR PNL LIMITED STAT 03/21/2025 8:24 PM HYDRAULIC DREDGE OPERATOR LACTIC ACID W REFLEX (SEPSIS) TIMED 03/21/2025 8:00 [address]AULIC DREDGE OPERATOR CT CHEST+ABD+PEL W CON STAT 7:21 PM HYDRAULIC DREDGE OPERATOR POCT URINE (BACK OFFICE) STAT 03/21/2025 6:50 PM HYDRAULIC DREDGE OPERATOR CULTURE, BACTERIA, BLOOD STAT 03/21/2025 6:09 PM HYDRAULIC DREDGE OPERATOR ECG 12-LEAD Routine 03/21/2025 6:06 PM HYDRAULIC DREDGE OPERATOR LACTIC ACID W REFLEX (SEPSIS) STAT 03/21/2025 6:03 PM HYDRAULIC DREDGE OPERATOR MAGNESIUM STAT 03/21/2025 6:03 PM HYDRAULIC DREDGE OPERATOR LIPASE STAT 03/21/2025 6:03 PM HYDRAULIC DREDGE OPERATOR CK (CPK) STAT 03/21/2025 6:03 PM HYDRAULIC DREDGE OPERATOR COMPREHENSIVE METABOLIC PANEL STAT 03/21/2025 6:03 PM HYDRAULIC DREDGE OPERATOR PARTIAL THROMBOPLASTIN TIME,PTT STAT 03/21/2025 6:03 PM HYDRAULIC DREDGE OPERATOR PROTHROMBIN TIME, VENOUS STAT 03/21/2025 6:03 PM HYDRAULIC DREDGE OPERATOR HC CBC AUTO W/AUTO DIFF STAT 03/21/20 6:03 PM HYDRAULIC DREDGE OPERATOR CULTURE, BACTERIA, BLOOD STAT 03/21/2025 5:59 PM HYDRAULIC DREDGE OPERATOR LACTIC ACID W REFLEX (SEPSIS) STAT 02/09/2025 5:42 PM HYDRAULIC DREDGE OPERATOR BASIC METABOLIC PANEL STAT 02/09/2025 5:42 PM HYDRAULIC DREDGE OPERATOR CBC W/DIFF AUTOMATED STAT 02/09/2025 5:42 PM HYDRAULIC DREDGE OPERATOR PATHOLOGY Routine 01/25/2025 12:00 AM CDT FLOW CYTOMETRY (LEUKEMIA/LYMPHOMA PANEL) Routine 01/24/2025 11:29 PM CDT HC HCG QL STAT 01/24/2025 11:29 PM CDT HC COMPREHENSIVE METABOLIC PANEL STAT 01/24/2025 11:29 PM CDT HC CBC AUTO W/AUTO DIFF STAT 01/25/20 11:29 PM CDT from Last 3 Months Results * URINALYSIS (03/22/2025 10:20 PM HYDRAULIC DREDGE OPERATOR) SPECIMEN TYPE URINE CLEAN CATCH 03/22/2025 10:24 PM HYDRAULIC DREDGE OPERATOR [facility] COLOR (U) LIGHT YELLOW 03/22/2025 10:33 PM HYDRAULIC DREDGE OPERATOR [facility] TRANSPARENCY CLEAR 03/22/2025 10:33 PM HYDRAULIC DREDGE OPERATOR [facility] SPECIFIC GRAVITY (U) 1.019 1.001 - 1.030 03/22/2025 10:33 PM [facility] U PH 7.0 5.0 - 9.0 03/22/2025 10:33 PM HYDRAULIC DREDGE OPERATOR [facility] LEUKOCYTES (U) NEGATIVE NEGATIVE 03/22/2025 10:33 PM [facility] NITRITES NEGATIVE NEGATIVE 03/22/2025 10:33 PM [facility] PROTEIN RANDOM (U) NEGATIVE <30 MG/DL 03/22/2025 10:33 PM [facility] GLUCOSE (U) NORMAL NORMAL MG/DL 03/22/2025 10:33 PM HYDRAULIC DREDGE OPERATOR [facility] KETONES MG/DL (U) NEGATIVE NEGATIVE MG/DL 03/22/2025 10:33 PM HYDRAULIC DREDGE OPERATOR [facility] UROBILINOGEN NORMAL NORMAL MG/DL 03/22/2025 10:33 PM HYDRAULIC DREDGE OPERATOR [facility] BILIRUBIN (U) NEGATIVE NEGATIVE MG/DL 03/22/2025 10:33 PM HYDRAULIC DREDGE OPERATOR [facility] BLOOD (U) NEGATIVE NEGATIVE 03/22/2025 10:33 PM HYDRAULIC DREDGE OPERATOR [facility] URINE URINE SPECIMEN OBTAINED BY CLEAN CATCH PROCEDURE / Unknown 03/22/2025 10:20 PM HYDRAULIC DREDGE OPERATOR Abby WEATHERS URINE ORDERABLES Final Result Performing Organization Address City/[facility]/ZIP Co de Phone Number [facility] [address] [place] [address], [place] [phone] * (ABNORMAL) MAGNESIUM (03/22/2025 8:30 PM HYDRAULIC DREDGE OPERATOR) Only the most recent of2 resultswithin the time period is included. [facility] MAGNESIUM 1.6(L) 1.8 - 2.4 MG/DL 03/22/2025 9:21 PM HYDRAULIC DREDGE OPERATOR [facility] BLOOD VENOUS BLOOD SPECIMEN / Unknown 03/22/2025 8:30 PM HYDRAULIC DREDGE OPERATOR Abby WEATHERS LABORATORY Final Result Performing Organization Address City/[facility]/ZIP Co de Phone Number [address] [address], [place] [phone] * CULTURE, BACTERIA, BLOOD (03/22/2025 8:30 PM HYDRAULIC DREDGE OPERATOR) Only the most recent of3 resultswithin the time period is included. Pathologist [facility] SPEC DESCRIPTION BLOOD-VENOU S 03/22/2025 6:55 PM HYDRAULIC DREDGE OPERATOR [facility] SPECIAL REQUESTS NO SPECIAL REQUEST 03/22/2025 6:55 PM HYDRAULIC DREDGE OPERATOR [facility] CULTURE RESULT NO GROWTH 5 DAYS 03/27/2025 10:13 PM HYDRAULIC DREDGE OPERATOR [facility] BLOOD VENOUS BLOOD SPECIMEN / Unknown 03/22/2025 8:30 PM HYDRAULIC DREDGE OPERATOR 03/22/2025 8:42 PM HYDRAULIC DREDGE OPERATOR us Abby WEATHERS MICROBIOLOGY - GENERAL ORDERAB LES Final Result [facility] [address] [place] [address], [place] [phone] * (ABNORMAL) COMPREHENSIVE METABOLIC PANEL (03/22/2025 8:30 PM HYDRAULIC DREDGE OPERATOR) Only the most recent of2 resultswithin the time period is included. Pathologist [facility] GLUCOSE 92 70 - 99 MG/DL 03/22/2025 9:21 PM [facility] BUN 14 7 - 18 MG/DL 03/22/2025 9:21 PM [facility] CREATININE S/P/B 0.62 0.55 - 1.02 MG/DL 03/22/2025 9:21 PM [facility] SODIUM S/P/B 142 136 - 145 MMOL/L 03/22/2025 9:21 PM [facility] POTASSIUM S/P/B 3.6 3.5 - 5.1 MMOL/L 03/22/2025 9:21 PM [facility] CHLORIDE S/P/B 105 97 - 115 MMOL/L 03/22/2025 9:21 PM [facility] CO2 29.1 21 - 32 MMOL/L 03/22/2025 9:21 PM [facility] CALCIUM S/P/B 8.6 8.5 - 10.1 MG/DL 03/22/2025 9:21 PM [facility] BILIRUBIN TOTAL S/P/B 0.2 0.2 - 1.2 MG/DL 03/22/2025 9:21 PM [facility] Comment: THIS ASSAY IS NOT RECOMMENDED FOR PATIENTS UNDERGOING TREATMENT WITH ELTROMBOPAG DUE TO THE POTENTIAL FOR FALSELY ELEVATED RESULTS. TOTAL PROTEIN S/P/B 6.1(L) 6.4 - 8.2 G/DL 03/22/2025 9:21 PM [facility] ALBUMIN S/P/B 3.5 3.4 - 5.0 G/DL 03/22/2025 9:21 PM [facility] AST 13(L) 15 - 37 U/L 03/22/2025 9:21 PM [facility] ALT 24 14 - 55 U/L 03/22/2025 9:21 PM [facility] ALKALINE PHOSPHATASE S/P/B 109 50 - 136 U/L 03/22/2025 9:21 PM [facility] ANION GAP 7.9 2 - 10 MMOL/L 03/22/2025 9:21 PM [facility] BUN CREATININE RATIO 22.4 6 - 26 03/22/2025 9:21 PM [facility] A/G RATIO 1.3 1.0 - 2.0 RATIO 03/22/2025 9:21 PM [facility] GFR ESTIMATE >90 >90 ML/MIN/1.7 3 M2 03/22/2025 9:21 PM [facility] Comment: NOTE: eGFR is not calculated for patients <18 years of age or gender unknown. This is an estimated GFR calculation using the new CKD EPI creatinine equation without race and so does not require a correction factor for race. This estimated GFR should not be used for calculating drug doses. BLOOD VENOUS BLOOD SPECIMEN / Unknown 03/22/2025 8:30 PM HYDRAULIC DREDGE OPERATOR Abby WEATHERS LABORATORY Final Result [facility] [address] [place] [address], * (ABNORMAL) CBC W/DIFF AUTOMATED (03/22/2025 8:30 PM HYDRAULIC DREDGE OPERATOR) Only the most recent of2 resultswithin the time period is included. WBC 10.05 4.5 - 11.0 x10'3/uL 03/22/2025 9:06 PM [facility] RBC 2.45(L) 4.20 - 5.40 x10'6/uL 03/22/2025 9:06 PM [facility] HGB 7.5(L) 12.0 - 16.0 G/DL 03/22/2025 9:06 PM HYDRAULIC DREDGE OPERATOR [facility] HCT 23.4(L) 38.0 - 48.0 % 03/22/2025 9:06 PM [facility] MCV 95.5 81.0 - 99.0 FL 03/22/2025 9:06 PM [facility] MCH 30.6 27.0 - 31.0 PG 03/22/2025 9:06 PM HYDRAULIC DREDGE OPERATOR [facility] MCHC 32.1 32.0 - 36.0 G/DL 03/22/2025 9:06 PM [facility] RDW 16.9(H) 11.5 - 14.5 % 03/22/2025 9:06 PM [facility] PLT 120(L) 130 - 400 x10'3/uL 03/22/2025 9:06 PM HYDRAULIC DREDGE OPERATOR [facility] MPV 10.7 9.3 - 12.2 FL 03/22/2025 9:06 PM HYDRAULIC DREDGE OPERATOR [facility] DIFFERENTIAL TYPE MANUAL DIFFERENTIAL 03/22/2025 9:35 PM HYDRAULIC DREDGE OPERATOR [facility] SEG NEUTROPHILS 19 % 9:35 PM HYDRAULIC DREDGE OPERATOR [facility] LYMPHOCYTES 81 % 03/22/2025 9:35 PM HYDRAULIC DREDGE OPERATOR [facility] ABS. NEUTROPHILS 1.91 1.80 - 7.70 x10'3/uL 03/22/2025 9:35 PM HYDRAULIC DREDGE OPERATOR [facility] ABS. LYMPHOCYTES 8.14(H) 1.00 - 4.80 x10'3/uL 03/22/2025 9:35 PM HYDRAULIC DREDGE OPERATOR [facility] RBC MORPHOLOGY RBC MORPHOLOGY APPEARS NORMAL. SLIDE REVIEWED. 03/22/2025 9:35 PM [facility] PLT EST. ADEQUATE 03/22/2025 9:35 PM [facility] BLOOD VENOUS BLOOD SPECIMEN / Unknown 03/22/2025 8:30 PM HYDRAULIC DREDGE OPERATOR Abby WEATHERS LABORATORY Final Result [facility] [address] [place] [address], * (ABNORMAL) LACTIC ACID W REFLEX (SEPSIS) (03/22/2025 8:30 PM HYDRAULIC DREDGE OPERATOR) Only the most recent of4 resultswithin the time period is included. LACTIC ACID VENOUS 2.1(H) 0.4 - 2.0 MMOL/L 03/22/2025 9:23 PM HYDRAULIC DREDGE OPERATOR [facility] Comment: Critical Result(s) Called at: 21:22:26 on 03/22/2025 by: AC MAGIDSON to and read back by:TERESA SHANNON BLOOD VENOUS BLOOD SPECIMEN / Unknown 03/22/2025 8:30 PM HYDRAULIC DREDGE OPERATOR Abby WEATHERS LABORATORY Final Result Performing Organization Address [facility]/ZIP Co de Phone Number [facility] [address] [place] [address], * RESPIRATORY PCR PNL LIMITED (FLU A/FLU B/RSV/COVID) (03/21/2025 8:24 PM HYDRAULIC DREDGE OPERATOR) SPEC DESCRIPTION NASOPHARYNGEAL SWAB 03/21/2025 8:24 PM HYDRAULIC DREDGE OPERATOR [facility] CORONAVIRUS SARS COV 2 PCR (RESP) NEGATIVE NEGATIVE 03/21/2025 9:21 PM HYDRAULIC DREDGE OPERATOR [facility] INFLUENZA A PCR (RESP) NEGATIVE NEGATIVE 03/21/2025 9:21 PM HYDRAULIC DREDGE OPERATOR [facility] INFLUENZA B PCR (RESP) NEGATIVE NEGATIVE 03/21/2025 9:21 PM HYDRAULIC DREDGE OPERATOR [facility] RSV PCR (RESP) NEGATIVE NEGATIVE 03/21/2025 9:21 PM HYDRAULIC DREDGE OPERATOR [facility] SWAB NASOPHARYNGEAL STRUCTURE / Unknown 03/21/2025 8:24 PM HYDRAULIC DREDGE OPERATOR Clyde Raygoza MD MICROBIOLOGY - GENERAL ORDERABL ES Final Result Performing Organization Address City/[facility]/ZIP Co de Phone Number [facility] [address] [place] [address], [place] [phone] * CT CHEST+ABD+PEL W CON (03/21/2025 7:21 PM HYDRAULIC DREDGE OPERATOR) Anatomical Region Laterality Modality Chest, Abdomen, Pelvis Computed Tomography 03/21/2025 7:24 PM HYDRAULIC DREDGE OPERATOR Impressions 03/21/2025 7:42 PM HYDRAULIC DREDGE OPERATOR IMPRESSION: 1. Innumerable enlarged lymph nodes in [...] 03/21/2025 7:24 PM Narrative 03/21/2025 7:42 PM HYDRAULIC DREDGE OPERATOR [address] [address] Examination: CT CHEST+ABD+PEL W CON Exam time: [...] Procedure Note Silvino Mackenzie MD - 03/21/[address] [address] Examination: CT CHEST+ABD+PEL W CON Exam time: [...] By: James Chaves MD, 03/21/2025 7:24 PM us Clyde Raygoza MD CT Final Result * POCT URINE (03/21/2025 6:50 PM HYDRAULIC DREDGE OPERATOR) URINE HCG TEST NEGATIVE NEGATIVE Internal Control: VALID VALID URINE URINE SPECIMEN OBTAINED BY CLEAN CATCH PROCEDURE / Unknown 03/21/2025 6:50 PM HYDRAULIC DREDGE OPERATOR Clyde Raygoza MD POINT OF CARE TEST ORDERABLES F inal Result * ECG 12 lead (03/21/2025 6:06 PM HYDRAULIC DREDGE OPERATOR) ECG QT 363 [facility] ECG QTC 431 [facility] 03/21/2025 6:06 PM HYDRAULIC DREDGE OPERATOR Narrative [facility] - 03/22/2025 9:34 AM HYDRAULIC DREDGE OPERATOR [facility] [address] [place] [address] Test Date: 2025-03-21 Pat Name: SOHA MARRERO Department: 41 Room: [place] [address] 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1990 Requested By: CLYDE RAYGOZA Order Number: [id number] Reading MD: Nubia Abebe Measurements Intervals [place] Rate: 84 P: 58 HI: 122 QRS: 35 QRSD: 92 T: 31 QT: 363 QTc: 431 Interpretive Statements SINUS RHYTHM POSSIBLE LEFT ATRIAL ENLARGEMENT [-0.1mV P-WAVE IN V1/V2] LOW QRS VOLTAGE IN PRECORDIAL LEADS [QRS DEFLECTION < 1.0 mV IN CHEST LEADS] RSR' pattern AULIC DREDGE OPERATOR Procedure Note Nubia Abebe MD - 03/22/2025 [facility] [address] [place] [address] Test Date: 2025-03-21 Pat Name: SOHA MARRERO Department: 41 Room: [place] [address] 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1990 Requested By: CLYDE RAYGOZA Order Number: [id number] Reading MD: Nubia Abebe Measurements Intervals [place] Rate: 84 P: 58 HI: 122 QRS: 35 QRSD: 92 T: 31 QT: 363 QTc: 431 Interpretive Statements SINUS RHYTHM POSSIBLE LEFT ATRIAL ENLARGEMENT [-0.1mV P-WAVE IN V1/V2] LOW QRS VOLTAGE IN PRECORDIAL LEADS [QRS DEFLECTION < 1.0 mV IN CHESTLEADS] RSR' pattern AULIC DREDGE OPERATOR Clyde Raygoza MD ECG ORDERABLES Final Result [facility] * PROTIME/INR, VENOUS (03/21/2025 6:03 PM HYDRAULIC DREDGE OPERATOR) PROTIME 11.9 10.2 - 12.9 SEC 03/21/2025 6:40 PM HYDRAULIC DREDGE OPERATOR [facility] INR 1.0 03/21/2025 6:40 PM HYDRAULIC DREDGE OPERATOR [facility] Comment: Recommended INR Therapeutic Goals: 2.0-3.0 Routine Therapy 2.5-3.5 Mechanical Prosthetic Valves (High Risk) BLOOD VENOUS BLOOD SPECIMEN / Unknown 03/21/2025 6:03 PM HYDRAULIC DREDGE OPERATOR us Clyde Raygoza MD LABORATORY Final Result [facility] [address] [place] [address], [place] [phone] * PARTIAL THROMBOPLASTIN TIME,PTT (03/21/2025 6:03 PM HYDRAULIC DREDGE OPERATOR) PTT 25.1 25.1 - 36.5 SEC 03/21/2025 6:40 PM HYDRAULIC DREDGE OPERATOR [facility] BLOOD VENOUS BLOOD SPECIMEN / Unknown 03/21/2025 6:03 PM HYDRAULIC DREDGE OPERATOR us Clyde Raygoza MD LABORATORY Final Result [facility] [address] [place] [address], [place] [phone] * LIPASE (03/21/2025 6:03 PM HYDRAULIC DREDGE OPERATOR) LIPASE 13 13 - 75 UNITS/L 03/21/2025 6:47 PM HYDRAULIC DREDGE OPERATOR [facility] BLOOD VENOUS BLOOD SPECIMEN / Unknown 03/21/2025 6:03 PM HYDRAULIC DREDGE OPERATOR us Clyde Raygoza MD LABORATORY Final Result Performing Organization Address City/[facility]/ZIP Co de Phone Number [facility] [address] [place] [address], [place] [phone] * CK (CPK) (03/21/2025 6:03 PM HYDRAULIC DREDGE OPERATOR) CPK 34 21 - 215 U/L 03/21/2025 6:47 PM HYDRAULIC DREDGE OPERATOR [facility] BLOOD VENOUS BLOOD SPECIMEN / Unknown 03/21/2025 6:03 PM HYDRAULIC DREDGE OPERATOR us Clyde Raygoza MD LABORATORY Final Result [facility] [address] [place] [address], [place] [phone] * BASIC METABOLIC PANEL (02/09/2025 5:42 PM HYDRAULIC DREDGE OPERATOR) GLUCOSE 86 70 - 99 MG/DL 02/09/2025 6:19 PM HYDRAULIC DREDGE OPERATOR [facility] BUN 11 7 - 18 MG/DL 02/09/2025 6:19 PM [facility] CREATININE S/P/B 0.72 0.55 - 1.02 MG/DL 02/09/2025 6:19 PM [facility] SODIUM S/P/B 140 136 - 145 MMOL/L 02/09/2025 6:19 PM [facility] POTASSIUM S/P/B 3.6 3.5 - 5.1 MMOL/L 02/09/2025 6:19 PM [facility] CHLORIDE S/P/B 104 97 - 115 MMOL/L 02/09/2025 6:19 PM [facility] CO2 31.1 21 - 32 MMOL/L 02/09/2025 6:19 PM [facility] CALCIUM S/P/B 9.1 8.5 - 10.1 MG/DL 02/09/2025 6:19 PM [facility] ANION GAP 4.9 2 - 10 MMOL/L 02/09/2025 6:19 PM [facility] BUN CREATININE RATIO 15.3 6 - 26 02/09/2025 6:19 PM [facility] GFR ESTIMATE >90 >90 ML/MIN/1.7 3 M2 02/09/2025 6:19 PM [facility] Comment: NOTE: eGFR is not calculated for patients <18 years of age or gender unknown. This is an estimated GFR calculation using the new CKD EPI creatinine equation without race and so does not require a correction factor for race. This estimated GFR should not be used for calculating drug doses. 02/09/2025 5:42 PM HYDRAULIC DREDGE OPERATOR us Ronit Haque [facility]AT[facility] Final Resul t [facility] [address] [place] [address], [place] [phone] * (ABNORMAL) CBC W/DIFF AUTOMATED (02/09/2025 5:42 PM HYDRAULIC DREDGE OPERATOR) Only the most recent of2 resultswithin the time period is included. WBC 17.24(H) 4.5 - 11.0 x10'3/uL 02/09/2025 5:57 PM HYDRAULIC DREDGE OPERATOR [facility] RBC 2.90(L) 4.20 - 5.40 x10'6/uL 02/09/2025 5:57 PM HYDRAULIC DREDGE OPERATOR [facility] HGB 8.5(L) 12.0 - 16.0 G/DL 02/09/2025 5:57 PM [facility] HCT 27.1(L) 38.0 - 48.0 % 02/09/2025 5:57 PM HYDRAULIC DREDGE OPERATOR [facility] MCV 93.4 81.0 - 99.0 FL 02/09/2025 5:57 PM HYDRAULIC DREDGE OPERATOR [facility] MCH 29.3 27.0 - 31.0 PG 02/09/2025 5:57 PM HYDRAULIC DREDGE OPERATOR [facility] MCHC 31.4(L) 32.0 - 36.0 G/DL 02/09/2025 5:57 PM [facility] RDW 17.9(H) 11.5 - 14.5 % 02/09/2025 5:57 PM HYDRAULIC DREDGE OPERATOR [facility] PLT 142 130 - 400 x10'3/uL 02/09/2025 5:57 PM [facility] MPV 9.9 9.3 - 12.2 FL 02/09/2025 5:57 PM [facility] DIFFERENTIAL TYPE MANUAL DIFFERENTIAL 02/09/2025 6:25 PM HYDRAULIC DREDGE OPERATOR [facility] SEG NEUTROPHILS 10 % 6:25 PM [facility] LYMPHOCYTES 89 % 02/09/2025 6:25 PM HYDRAULIC DREDGE OPERATOR [facility] MYELOCYTES 1 % 02/09/2025 6:25 PM HYDRAULIC DREDGE OPERATOR [facility] ABS. NEUTROPHILS 1.72(L) 1.80 - 7.70 x10'3/uL 02/09/2025 6:25 PM HYDRAULIC DREDGE OPERATOR [facility] ABS. LYMPHOCYTES 15.34(H) 1.00 - 4.80 x10'3/uL 02/09/2025 6:25 PM HYDRAULIC DREDGE OPERATOR [facility] ABS. MYELOCYTES 0.17(H) 0.00 x10'3/uL 02/09/2025 6:25 PM [facility] RBC MORPHOLOGY RBC MORPHOLOGY APPEARS NORMAL. SLIDE REVIEWED. 02/09/2025 6:25 PM HYDRAULIC DREDGE OPERATOR [facility] PLT EST. ADEQUATE 02/09/2025 6:25 PM [facility] 02/09/2025 5:42 PM HYDRAULIC DREDGE OPERATOR Ronit Haque [facility] Final Resul t [facility] [address] [id number], * Pathology (01/25/2025 12:00 AM CDT) PATHOLOGY [facility] Department of Laboratory Medicine [address] [place] [address] , extension [phone] Pathology Report Addendum Peripheral Smear Report Name: SOHA MARRERO Specimen #: [id number] Age: 11 1990 (Age: 34) Location: [facility] Sex: F Procedure Date: 01/25/2025 [facility] #: [id number] Date Received: 01/25/2025 Date Reported: Provider: KOKO [...] and she is currently being followed [place] [facility] [place]. There is no morphologic [...] case was interpreted and signed out at [facility], [address] [place] [address]. Addenda/Procedures Addendum Date Ordered: 01/29/2025 Status: Signed Out Date Complete: 01/29/2025 By: LISY CALLEJAS Date Reported: 01/29/2025 Addendum Diagnosis Peripheral blood, smear review: -Circulating follicular lymphoma cells; see comment Addendum Comment This addendum is created to report on the flow cytometry results performed on the peripheral blood. 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 The overall morphologic/immunoph enotypic findings support circulating follicular lymphoma cells. This addendum was interpreted and signed out at [place] [id number]. [facility] 01/25/2025 01/25/2025 9:4 7 AM CDT Comment:Peripheral blood us Kkoo Johnson MD,PHD PATHOLOGY/CYTOLOGY ORDERAB LES Final Result [facility] [address] [place] [address], [id number] * Flow Cytometry (01/24/2025 11:29 PM CDT) FLOW CYTOMETRY RESULTS [facility] Department of Laboratory Medicine [address] [place] [address] , extension [phone] Pathology Report Flow Cytometry Report Name: SOHA MARRERO Specimen #: [id number] Age: 11 1990 (Age: 34) Location: [facility] Sex: F Procedure Date: 01/24/2025 [facility] #: [id number] Date Received: 01/25/2025 Date Reported: 01/29/2025 Provider: KOKO JOHNSON MD PHD Source: Peripheral blood (See report [id number]) FINAL DIAGNOSIS: Peripheral blood, smear review: -[place]-restricted CD10 positive B-cell lymphoproliferative disorder; see comment Diagnosis Comment: 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 Correlation with [id number] is recommended. Result: The sample is adequate with a viability of 98%. The B cells represent 77.8% of the lymphocytes, (89% of the total events analyzed) and coexpress CD19 dim, CD20 dim, CD10, and CD23 dim and are essentially negative for CD5 and CD200. Surface immunoglobulin light chains shows a [place]:Lambda ratio of >997.0 (99.7:<0.1). The T-cells represent 11% of lymphocytes (9.8% of total cellularity) with a CD4:CD8 ratio of 1.7. Tested: CD45, CD19, CD20, Surface [place], Surface Lambda, CD5, CD10, CD38, CD34, CD14, CD117, CD4, CD8, CD3, CD7, CD56. This case was interpreted and signed out at [facility], [address] [place] [address], [facility] [address]. Electronically Signed Out LISY COTE MD This test was developed and its performance characteristics determined by [facility]. It has not been cleared or approved by the U.S. Food and Drug Administration. However, the use of Analyte Specific Reagents does not require FDA approval. [facility] 01/24/2025 11:2 9 PM CDT 01/25/2025 12:10 PM CDT Comment:Peripheral blood (Se e report [id number]) us Koko Johnson MD,PHD PATHOLOGY/CYTOLOGY ORDERAB LES Final Result [facility] [address] [place] [address], [place] [phone] [id number] * COMPREHENSIVE METABOLIC PANEL (01/24/2025 11:29 PM [...] - 10.1 MG/DL 01/25/2025 12:20 AM CDT [facility] BILIRUBIN TOTAL S/P/B 0.4 0.2 - 1.2 MG/DL 01/25/2025 12:20 AM T [facility] Comment: THIS ASSAY IS NOT RECOMMENDED FOR PATIENTS UNDERGOING TREATMENT WITH ELTROMBOPAG DUE TO THE POTENTIAL FOR FALSELY ELEVATED RESULTS. TOTAL PROTEIN S/P/B 6.4 6.4 - 8.2 G/DL 01/25/2025 12:20 AM T [facility] ALBUMIN S/P/B 3.5 3.4 - 5.0 G/DL 01/25/2025 12:20 AM T [facility] AST 22 15 - 37 U/L 01/25/2025 12:20 AM [facility] ALT 26 14 - 55 U/L 01/25/2025 12:20 AM T [facility] ALKALINE PHOSPHATASE S/P/B 119 50 - 136 U/L 01/25/2025 12:20 AM [facility] ANION GAP 5.6 2 - 10 MMOL/L 01/25/2025 12:20 AM [facility] BUN CREATININE RATIO 19.5 6 - 26 01/25/2025 12:20 AM [facility] A/G RATIO 1.2 1.0 - 2.0 RATIO 01/25/2025 12:20 AM [facility] GFR ESTIMATE >90 >90 ML/MIN/1.7 3 M2 01/25/2025 12:20 AM [facility] Comment: NOTE: eGFR is not calculated for patients <18 years of age or gender unknown. This is an estimated GFR calculation using the new CKD EPI creatinine equation without race and so does not require a correction factor for race. This estimated GFR should not be used for calculating drug doses. 01/24/2025 11:2 9 PM CDT us Koko Johnson MD,PHD LABORATORY Final Resu lt [facility] [address] [place] [address], [place] [phone] * Qualitative HCG (01/24/2025 11:29 PM CDT) PREG SCREEN-SERUM NEGATIVE 01/25/2025 12:11 AM CDT [facility] 01/24/2025 11:2 9 PM CDT Koko Johnson MD,PHD LABORATORY Final Resu lt Performing Organization Address City/[facility]/ZIP Co de Phone Number [facility] [address] [place] [address], [place] [phone] from Last 3 Months Insurance [employer] Advance Directives Documents on File Type Date Recorded Patient Director Of Managed Care Expl anation Legal Documents 05/21/2023 3:56 PM Care Teams Cribber Relationship Specialty Start Date End Date None, Provider, MD PCP - General UNKNOWN PHYSICIAN SPECIALTY 11/19/22
--- OUTSIDE RECORDS SUMMARY | 2025-03-28 07:48 | XMS_ITS | Encounter Summary ---
Author Organization [facility] Address [address] [place] [address] Care Team Providers Care Machine Icer Name Role Phone None, Provider Primary Care Provider Unavaila ble Encounter Details Date Type Department Care Team (Late st Contact Info) Description 01/27/2025 Results Follow-Up [facility] [address] [place], [place] [id number] Thalia Hall FNP [address] [place], [place] [phone] Pathology Social History Tobacco Use Types Packs/Day [...] Sex Assigned at Female 02/09/2025 4:27 PM ROOM SERVICE MANAGER Legal Sex Female 7:16 PM CDT Gender Identity Not on file Sexual Orientation Not on file documented as of this encounter Plan of Treatment Not on file documented as of this encounter Visit Diagnoses Not on filedocumented in this encounter Additional Health Concerns Infection Onset Date Last Indicated Resolved Time Respiratory Rule Out 03/21/2025 03/21/2025 025 9:21 PM ROOM SERVICE MANAGER documented as of this encounter Care Teams Machine Icer Relationship Specialty Start Date End Date None, Provider, PCP - General UNKNOWN PHYSICIAN SPECIALTY 11/19/22 documented as of this encounter
--- OUTSIDE RECORDS SUMMARY | 2025-03-28 07:48 | XMS_ITS ---
Author Organization [facility] Address [address] [place] [address] Phone Care Team Providers Care Washhouse Worker Name Role Phone Gabriel Salmeron MD Unavailable [phone] Brooks Sosa MD Unavailable [phone] Provider, None Primary Care Provider UnavailKervin Rubi MD Unavailable [phone] [facility] Status:Enrolled (Active) Program category:Social Drivers of Health/Community Resource Coordination Start date:05/05/2024 Enrollment date:05/05/2024 Related social drivers of health:Social Connections, Tobacco Use, Depression, Stress, Physical Activity, Utilities Continued Care and Services Coordination
--- OUTSIDE RECORDS SUMMARY | 2025-03-28 07:48 | XMS_ITS | Encounter Summary ---
Author Organization [facility] Address [address] [place] [address] Care Team Providers Care Sterile Process Coordinator Name Role Phone Unavailable Primary Care Provider Unavailabl e Encounter Details Date Type Department Care Team (Late st Contact Info) Description 12/18/2022 Lab Requisition [facility] - Pathology Lab [address] [place] [address] Ishan Escobedo MD [address] [facility] [address] [place] [phone] Generalized enlarged lymph nodes Social History [...] AM CDT) Case Report Flow Cytometry Case: [id number] Authorizing Provider: Ishan Escobedo MD Collected: 12/18/2022 09:00 AM Ordering Location: [facility] Care Pathology Lab Received: 12/18/2022 03:11 PM Pathologist: Giovanni Chow MD Specimen: Axillary Lymph Node, RIGHT 12/18/2022 5:15 PM CDT [facility] Final Diagnosis Axillary lymph node, flow cytometry: - [place] light chain restricted CD10+ B-cell population detected (~99% of overall events) 12/18/2022 5:15 PM CDT [facility] at 1714 CDT Flow Cytometry Interpretation Viability: 87%. B-cells: monoclonal, kappa-restricted, expressing CD19, CD20, and CD10. T-cells: not increased, no immunophenotypic aberrancy. A cytospin prepared from the flow cytometry specimen has been reviewed for quality control lead purposes. 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 Histologic slides are pending for final subclassification. 12/18/2022 5:15 PM [facility] Flow Cytometry Results Differential Result Comment Flow Cell Count /uL 9,000 Total Viability % 87.0 Lymphocytes % 99 Dim CD45 Region % 0 Monocytes % 0 Granulocytes % 1 12/18/2022 5:15 PM [facility] Reason for test Generalized enlarged lymph nodes 785.6 12/18/2022 5:15 PM [facility] Client Specimen ID # [id number] 12/18/2022 5:15 PM [facility] Number of markers 16 were performed. A-2 Flow CD3 A-4 Flow CD10 A-6 Flow CD20 A-7 Flow CD23 A-12 Flow CD2 A-13 Flow CD4 A-16 Flow CD1a A-3 Flow CD5 A-5 Flow CD19 A-8 Flow CD34 A-9 Flow CD45 A-14 Flow CD7 A-15 Flow CD8 A-17 Flow CD30 A-10 [place]+CD19+ A-11 Lambda+CD19+ 12/18/2022 5:15 PM [facility] Pathologist Location at [facility] [address] 12/18/2022 5:15 PM [facility] Disclaimer Test performed at [facility], [address] [place] [address], [id number]. *The established laboratory minimum viability is 70%. [...] PATHOLOGY LAB Embedded Images 5:15 PM CDT [facility] Pathology/Cytolo gy AXILLARY LYMPH NODE STRUCTURE / Unknown 12/18/2022 9:00 AM CDT 12/18/2022 3:11 PM CDT us Ishan Escobedo MD LAB - PATHOLOGY/CYTOLOGY ORDERAB LES Final Result [facility] [address] [phone] documented in this encounter Visit Diagnoses Diagnosis Generalized enlarged lymph nodes Enlargement of lymph nodes documented in this encounter
--- OUTSIDE RECORDS SUMMARY | 2025-03-28 07:48 | XMS_ITS ---
Author Organization [facility] Address [address] [place] [address] Phone Care Team Providers Care Bacteriology Research Assistant Name Role Phone Gabriel Salmeron MD Unavailable [phone] Brooks Sosa MD Unavailable Provider, None Primary [...] at [email or web address] Child living with her parents Current Treatment [...]
--- OUTSIDE RECORDS SUMMARY | 2025-03-28 07:48 | XMS_ITS | Clinical Summary ---
Author Organization [place] [id number] [facility] Address [address] [place] [address] Care Team Providers Care Software Packager Name Role Phone Ramy Aguilera MD Unavailable Satya Fernandez MD Primary Care Provider [phone] Allergies Active Allergy Reactions Criticality Noted Date [...] treatment cycle. 10 tablet 02/11/20 25 Active predniSONE (DELTASONE) 50 mg tabletIndications: Follicular lymphoma, unspecified follicular lymphoma type, unspecified body region (HCC),Prevention of chemotherapy-induc ed neutropenia Take 2 tablets (100 mg) by mouth daily Take on days 2-6 of each treatment cycle. 10 tablet 03/17/20 25 Active ondansetron ODT (ZOFRAN-ODT) 4 mg disintegrating tablet Take 2 tablets (8 mg total) by mouth every 8 (eight) hours as needed for nausea or vomiting 30 tablet 02/24/20 25 025 Active Problems Problem Noted Date Diagnosed Date [...] - Plan to discharge patient with outpatient [facility] follow-up on 09/30/24. Assessment & Plan [...] - Plan to discharge patient with outpatient [facility] follow-up on 09/30/24. Assessment & Plan [...] Department Care Team Description 03/24/2025 10:46 PM TRACTOR TRAILER TECHNICIAN - 03/24/2025 10:51 PM TRACTOR TRAILER TECHNICIAN Emergency [facility] Emergency Department [address] [place] [address] Discharge Disposition: Left without being seen 03/17/2025 2:00 PM TRACTOR TRAILER TECHNICIAN Clinical Support [facility] Medical Office Building 2 Radiation Oncology [address] [place] [phone] Follicular lymphoma, unspecified follicular lymphoma type, unspecified body region (HCC) (Primary Dx) 03/17/2025 12:30 PM TRACTOR TRAILER TECHNICIAN Infusion [address] [phone] Follicular lymphoma, unspecified follicular lymphoma type, unspecified body region (HCC) (Primary Dx); Prevention of chemotherapy-induced neutropenia 03/17/2025 12:00 PM TRACTOR TRAILER TECHNICIAN Office Visit [facility] [address] [place] [phone] Ramy Aguilera MD Prevention of chemotherapy-induced neutropenia (Primary Dx); Follicular lymphoma, unspecified follicular lymphoma type, unspecified body region (HCC) 03/17/2025 11:30 AM TRACTOR TRAILER TECHNICIAN Lab [address] [address] Follicular lymphoma, unspecified follicular lymphoma type, unspecified body region (HCC); Prevention of chemotherapy-induced neutropenia 03/16/2025 Orders Only [facility] Oncology [address] [place] [phone] Ramy Aguilera MD Follicular lymphoma, unspecified follicular lymphoma type, unspecified body region (HCC) (Primary Dx); Prevention of chemotherapy-induced neutropenia 03/08/2025 10:13 AM TRACTOR TRAILER TECHNICIAN - 03/08/2025 11:59 PM TRACTOR TRAILER TECHNICIAN Hospital Encounter [facility] OP Cardiac Testing [address] [place] [address] Follicular lymphoma, unspecified follicular lymphoma type, unspecified body region (HCC); Encounter for long-term (current) use of medications Discharge Disposition: Discharge to home or self care 02/24/2025 12:30 PM TRACTOR TRAILER TECHNICIAN Clinical Support [facility] Medical Office Building 2 Radiation Oncology [address] [place] [phone] Follicular lymphoma, unspecified follicular lymphoma type, unspecified body region (HCC) (Primary Dx) 02/24/2025 11:00 AM TRACTOR TRAILER TECHNICIAN Infusion [address] [phone] Follicular lymphoma, unspecified follicular lymphoma type, unspecified body region (HCC) (Primary Dx); Diffuse follicle center lymphoma, unspecified body region (HCC); Prevention of chemotherapy-induced neutropenia 02/24/2025 10:30 AM TRACTOR TRAILER TECHNICIAN Office Visit [facility] [address] [place] [phone] Ramy Aguilera MD Follicular lymphoma, unspecified follicular lymphoma type, unspecified body region (HCC) (Primary Dx); Prevention of chemotherapy-induced neutropenia; Diffuse follicle center lymphoma, unspecified body region (HCC) 02/24/2025 10:00 AM TRACTOR TRAILER TECHNICIAN Lab [address] [address] Diffuse follicle center lymphoma, unspecified body region (HCC); Follicular lymphoma, unspecified follicular lymphoma type, unspecified body region (HCC); Prevention of chemotherapy-induced neutropenia 02/23/2025 Orders Only [facility] Oncology [address] [place] [phone] Ramy Aguilera MD Follicular lymphoma, unspecified follicular lymphoma type, unspecified body region (HCC) (Primary Dx); Prevention of chemotherapy-induced neutropenia 02/10/2025 11:00 AM TRACTOR TRAILER TECHNICIAN Infusion [facility] at [address] [phone] Follicular lymphoma, unspecified follicular lymphoma type, unspecified body region (HCC) (Primary Dx); Prevention of chemotherapy-induced neutropenia 02/10/2025 10:30 AM TRACTOR TRAILER TECHNICIAN Lab [facility] at [address] [address] Prevention of chemotherapy-induced neutropenia (Primary Dx); Follicular lymphoma, unspecified follicular lymphoma type, unspecified body region (HCC) 02/10/2025 Social Work [facility] Oncology [address] [place] [phone] Marycarmen Gray LCSW 02/03/2025 12:00 PM CDT Infusion [address] [phone] Follicular lymphoma, unspecified follicular lymphoma type, unspecified body region (HCC) (Primary Dx); Prevention of chemotherapy-induced neutropenia 02/03/2025 11:30 AM CDT Office Visit [facility] [address] [place] [phone] Ramy Aguilera MD Follicular lymphoma, unspecified follicular lymphoma type, unspecified body region (HCC) (Primary Dx); Prevention of chemotherapy-induced neutropenia 02/03/2025 11:00 AM CDT Lab [address] [address] Follicular lymphoma, unspecified follicular lymphoma type, unspecified body region (HCC); Prevention of chemotherapy-induced neutropenia 02/03/2025 Orders Only [facility] Oncology [address] [place] [phone] Ramy Aguilera MD 01/18/2025 Social Work [facility] Oncology [address] [place] [phone] Desirae Bates LCSW 01/13/2025 12:00 PM CDT Clinical Support [facility] Medical Office Building 2 Radiation Oncology [address] [place] [address] Follicular lymphoma, unspecified follicular lymphoma type, unspecified body region (HCC) (Primary Dx) 01/13/2025 10:30 AM CDT Infusion [address] [phone] Prevention of chemotherapy-induced neutropenia (Primary Dx); Follicular lymphoma, unspecified follicular lymphoma type, unspecified body region (HCC) 01/13/2025 10:00 AM CDT Office Visit [facility] [address] [place] [phone] Ramy Aguilera MD Follicular lymphoma, unspecified follicular lymphoma type, unspecified body region (HCC) (Primary Dx); Prevention of chemotherapy-induced neutropenia 01/13/2025 9:30 AM CDT Lab [address] [address] Follicular lymphoma, unspecified follicular lymphoma type, unspecified body region (HCC); Prevention of chemotherapy-induced neutropenia 01/12/2025 Orders Only [facility] Oncology [address] [place] [phone] Ramy Aguilera MD 12/30/2024 Orders Only [address] [phone] Paulina German RPh from Last 3 Months [...] Comments Blood Pressure 106/65 03/24/2025 3:40 PM TRACTOR TRAILER TECHNICIAN Pulse 123 03/24/2025 3:40 PM TRACTOR TRAILER TECHNICIAN Temperature 37.9 C (100.3 F) 03/24/2025 3:40 PM TRACTOR TRAILER TECHNICIAN Respiratory Rate 17 03/24/2025 3:40 PM TRACTOR TRAILER TECHNICIAN Oxygen Saturation 95% 03/24/2025 3:40 PM TRACTOR TRAILER TECHNICIAN Inhaled Oxygen Concentration - - Weight 49.9 kg (110 lb) 03/24/2025 3:40 PM TRACTOR TRAILER TECHNICIAN Height 160 cm (5' 3) 03/24/2025 3:40 PM TRACTOR TRAILER TECHNICIAN Body Mass Index 19.49 03/24/2025 3:40 PM TRACTOR TRAILER TECHNICIAN Plan of Treatment Health Maintenance Due [...] LATERAL 2 VIEWS ED 03/24/2025 5:22 PM TRACTOR TRAILER TECHNICIAN ECG 12-LEAD STAT 03/24/2025 4:05 PM TRACTOR TRAILER TECHNICIAN BLOOD SMEAR REVIEW Routine 03/17/2025 11 :40 AM TRACTOR TRAILER TECHNICIAN Follicular lymphoma, unspecified follicular lymphoma type, unspecified body region (HCC) Prevention of chemotherapy-induce d neutropenia EGFR STAT 03/17/2025 11:40 AM TRACTOR TRAILER TECHNICIAN Follicular lymphoma, unspecified follicular lymphoma type, unspecified body region (HCC) Prevention of chemotherapy-induce d neutropenia DIFFERENTIAL AUTO Routine 03/17/2025 11: 40 AM TRACTOR TRAILER TECHNICIAN Follicular lymphoma, unspecified follicular lymphoma type, unspecified body region (HCC) Prevention of chemotherapy-induce d neutropenia URIC ACID Routine 03/17/2025 11:40 AM TRACTOR TRAILER TECHNICIAN Follicular lymphoma, unspecified follicular lymphoma type, unspecified body region (HCC) LACTATE DEHYDROGENASE Routine 03/17/2025 11:40 AM TRACTOR TRAILER TECHNICIAN Follicular lymphoma, unspecified follicular lymphoma type, unspecified body region (HCC) CBC WITH AUTO DIFFERENTIAL Routine 03/17/2025 11:40 AM TRACTOR TRAILER TECHNICIAN Follicular lymphoma, unspecified follicular lymphoma type, unspecified body region (HCC) Prevention of chemotherapy-induce d neutropenia COMPREHENSIVE METABOLIC PANEL STAT 03/17/2025 11:40 AM TRACTOR TRAILER TECHNICIAN Follicular lymphoma, unspecified follicular lymphoma type, unspecified body region (HCC) Prevention of chemotherapy-induce d neutropenia HCG, BLOOD, QUANTITATIVE STAT 03/17/2025 11:40 AM TRACTOR TRAILER TECHNICIAN Follicular lymphoma, unspecified follicular lymphoma type, unspecified body region (HCC) Prevention of chemotherapy-induce d neutropenia TRANSTHORACIC ECHO (TTE) COMPLETE W DOPPLER/CF WO CONTRAST Routine 03/08/2025 11:14 AM TRACTOR TRAILER TECHNICIAN Follicular lymphoma, unspecified follicular lymphoma type, unspecified body region (HCC) Encounter for long-term (current) use of medications BLOOD SMEAR REVIEW Routine 02/24/2025 10 :12 AM TRACTOR TRAILER TECHNICIAN Follicular lymphoma, unspecified follicular lymphoma type, unspecified body region (HCC) Prevention of chemotherapy-induce d neutropenia EGFR STAT 02/24/2025 10:12 AM TRACTOR TRAILER TECHNICIAN Follicular lymphoma, unspecified follicular lymphoma type, unspecified body region (HCC) Prevention of chemotherapy-induce d neutropenia DIFFERENTIAL AUTO Routine 02/24/2025 10: 12 AM TRACTOR TRAILER TECHNICIAN Follicular lymphoma, unspecified follicular lymphoma type, unspecified body region (HCC) Prevention of chemotherapy-induce d neutropenia CBC WITH AUTO DIFFERENTIAL Routine 02/24/2025 10:12 AM TRACTOR TRAILER TECHNICIAN Follicular lymphoma, unspecified follicular lymphoma type, unspecified body region (HCC) Prevention of chemotherapy-induce d neutropenia COMPREHENSIVE METABOLIC PANEL STAT 02/24/2025 10:12 AM TRACTOR TRAILER TECHNICIAN Follicular lymphoma, unspecified follicular lymphoma type, unspecified body region (HCC) Prevention of chemotherapy-induce d neutropenia HCG, BLOOD, QUANTITATIVE STAT 02/24/2025 10:12 AM TRACTOR TRAILER TECHNICIAN Follicular lymphoma, unspecified follicular lymphoma type, unspecified body region (HCC) Prevention of chemotherapy-induce d neutropenia POCT GLUCOSE DEVICE Routine 2025 1 0:24 AM TRACTOR TRAILER TECHNICIAN BLOOD SMEAR REVIEW Routine 02/10/2025 10 :45 AM TRACTOR TRAILER TECHNICIAN Follicular lymphoma, unspecified follicular lymphoma type, unspecified body region (HCC) Prevention of chemotherapy-induce d neutropenia EGFR STAT 02/10/2025 10:45 AM TRACTOR TRAILER TECHNICIAN Follicular lymphoma, unspecified follicular lymphoma type, unspecified body region (HCC) Prevention of chemotherapy-induce d neutropenia DIFFERENTIAL AUTO Routine 02/10/2025 10: 45 AM TRACTOR TRAILER TECHNICIAN Follicular lymphoma, unspecified follicular lymphoma type, unspecified body region (HCC) Prevention of chemotherapy-induce d neutropenia CBC WITH AUTO DIFFERENTIAL Routine 02/10/2025 10:45 AM TRACTOR TRAILER TECHNICIAN Follicular lymphoma, unspecified follicular lymphoma type, unspecified body region (HCC) Prevention of chemotherapy-induce d neutropenia COMPREHENSIVE METABOLIC PANEL STAT 02/10/2025 10:45 AM TRACTOR TRAILER TECHNICIAN Follicular lymphoma, unspecified follicular lymphoma type, unspecified body region (HCC) Prevention of chemotherapy-induce d neutropenia HCG, BLOOD, QUANTITATIVE STAT 02/10/2025 10:45 AM TRACTOR TRAILER TECHNICIAN Follicular lymphoma, unspecified follicular lymphoma type, unspecified [...] hemodynamically stable and ambulatory) (03/24/2025 5:22 PM TRACTOR TRAILER TECHNICIAN) Anatomical Region Laterality Modality Body, Chest N/A Computed Radiogr aphy 03/24/2025 6:00 PM TRACTOR TRAILER TECHNICIAN Impressions 03/24/2025 6:24 PM TRACTOR TRAILER TECHNICIAN There are no prior chest radiographs for comparison. No pulmonary consolidation, pleural effusion or pneumothorax. Normal cardiomediastinal silhouette. Dictated by: Saúl Sigala M.D. The radiology attending physician has personally reviewed this study, and had reviewed and/or edited this written report and agrees with it. Electronically signed by: Cesilia Winston MD Narrative 03/24/2025 6:24 PM TRACTOR TRAILER TECHNICIAN EXAMINATION: 2 view chest radiograph Procedure Note [...] Result * ECG 12-LEAD (03/24/2025 4:05 PM TRACTOR TRAILER TECHNICIAN) Narrative [facility] - 03/24/2025 4:05 PM TRACTOR TRAILER TECHNICIAN Eldre Jones MD 03/24/2025 4:05 PM ECG 12 lead Date/Time: 03/24/2025 4:05 PM Performed by: Elder Jones MD Authorized by: Allan Arana MD Rate: ECG rate assessment comment: 119, sinus tachycardia, normal axis, normal intervals, nsstc us Allan Arana MD ECG ORDERABLES Final Result [facility] * (ABNORMAL) Blood smear review (03/17/2025 11:40 AM TRACTOR TRAILER TECHNICIAN) RBC morphology Consistent with RBC Indicies Comment:Testing performed by : [address] [address] Platelet estimate Decreased(A) CERNER Comment:Testing performed by : [address] [address] Blood 03/17/2025 11:4 0 AM TRACTOR TRAILER TECHNICIAN 03/17/2025 11:45 AM TRACTOR TRAILER TECHNICIAN us Ramy Aguilera MD LAB BLOOD ORDERABLES Final R esult Performing Organization Address [facility] de Phone Number [place] [address] [facility] [place] [address] * eGFR (03/17/2025 11:40 AM TRACTOR TRAILER TECHNICIAN) Pathologist [facility] eGFR >90 >=60 mL/min/1. 73 m2 Comment: [...] was last reviewed 2021. Testing performed by: [address] [address] Blood 03/17/2025 11:4 0 AM TRACTOR TRAILER TECHNICIAN 03/17/2025 11:45 AM TRACTOR TRAILER TECHNICIAN Ramy Aguilera MD LAB BLOOD ORDERABLES Final R esult Performing Organization Address [facility] Co de Phone Number [place] [address] [facility] Department of [facility] [place] [address] * (ABNORMAL) Differential, auto (03/17/2025 11:40 AM TRACTOR TRAILER TECHNICIAN) Pathologist [facility] Neutrophil abs 1.24(L) 1.50 - 6.50 K/cumm Comment:Testing performed by : [address] [address] Imm gran abs 0.01 0.00 - 0.10 K/cumm JOSELYN Comment:Testing performed by : [address] [address] Lymphocyte abs 7.07(H) 0.80 - 3.30 K/cumm [facility] Comment:Testing performed by : [address] [address] Monocyte abs 0.26 0.20 - 0.80 K/cumm [facility] Comment:Testing performed by : [address], [place]., [address] Eosinophil abs 0.03 0.00 - 0.50 K/cumm [facility] Comment:Testing performed by : [address], [place]., [address] Basophil abs 0.04 0.00 - 0.10 K/cumm [facility] Comment:Testing performed by : [address] [address] Neutrophil pct 14.4 % [facility] Comment: Interpretive Data Percent cell count reference ranges are not reported, since discordance with absolute values may lead to misinterpretation of CBC data. Current Interpretive Data was last revised on 2017. Testing performed by: [address] [address] Imm gran pct 0.1 % [facility] Comment: Interpretive Data Percent cell count reference ranges are not reported, since discordance with absolute values may lead to misinterpretation of CBC data. Current Interpretive Data was last revised on 2017. Testing performed by: [address] [address] Lymphocyte pct 81.7 % [facility] Comment: Interpretive Data Percent cell count reference ranges are not reported, since discordance with absolute values may lead to misinterpretation of CBC data. Current Interpretive Data was last revised on 2017. Testing performed by: [address] [address] Monocyte pct 3.0 % [facility] Comment: Interpretive Data Percent cell count reference ranges are not reported, since discordance with absolute values may lead to misinterpretation of CBC data. Current Interpretive Data was last revised on 2017. Testing performed by: [address] [address] Eosinophil pct 0.3 % [facility] Comment: Interpretive Data Percent cell count reference ranges are not reported, since discordance with absolute values may lead to misinterpretation of CBC data. Current Interpretive Data was last revised on 2017. Testing performed by: [address] [address] Basophil pct 0.5 % [facility] Comment: Interpretive Data Percent cell count reference ranges are not reported, since discordance with absolute values may lead to misinterpretation of CBC data. Current Interpretive Data was last revised on 2017. Testing performed by: [address] [address] Blood 03/17/2025 11:4 0 AM TRACTOR TRAILER TECHNICIAN 03/17/2025 11:45 AM TRACTOR TRAILER TECHNICIAN us Ramy Aguilera MD LAB BLOOD ORDERABLES Final R esult JOSELYN [facility] Department [place] [address] * (ABNORMAL) CBC with auto differential (03/17/2025 11:40 AM TRACTOR TRAILER TECHNICIAN) WBC 8.65 3.80 - 9.90 K/cumm Comment:Testing performed by : [address] [address] Hgb 8.6(L) 11.9 - 15.5 g/dL JOSELYN [facility] Comment:Testing performed by : [address] [address] Hct 27.5(L) 35.6 - 45.5 % [facility] Comment:Testing performed by : [address] [address] Plt 114(L) 150 - 400 K/cumm JOSE[facility]N [facility] Comment:Testing performed by : [address] [address] MPV 9.5 9.1 - 12.3 fL [facility] Comment:Testing performed by : [address] [address] RBC 2.89(L) 3.90 - 5.20 M/cumm [facility]N [facility] Comment:Testing performed by : [address] [address] MCV 95.2 81.3 - 96.4 fL [facility]N [facility] Comment:Testing performed by : [address] [address] MCH 29.8 27.1 - 33.3 pg JOSELYN [facility] Comment:Testing performed by : [address] [address] MCHC 31.3(L) 32.3 - 35.7 g/dL JOSELYN [facility] Comment:Testing performed by : [address] [address] RDW CV 17.7(H) 11.1 - 14.9 % JOSE[facility]N Comment:Testing performed by : [address] [address] RDW SD 61.4(H) 35.7 - 48.1 fL [facility]N Comment:Testing performed by : [address] [address] NRBC abs 0.00 0.00 - 0.01 K/cumm [facility]N Comment:Testing performed by : [address] [address] ANC Prelim 1.24(L) 1.50 - 6.50 K/cumm JOSE[facility]N Comment: Interpretive Data The rapid ANC is a preliminary automated count and may vary from the final ANC (Neut Abs) reported in the WBC differential that follows. Current interpretive data was last revised 2024. Testing performed by: [address] [address] Blood 03/17/2025 11:4 0 AM TRACTOR TRAILER TECHNICIAN 03/17/2025 11:45 AM TRACTOR TRAILER TECHNICIAN us Ramy Aguilera MD LAB BLOOD ORDERABLES Edited Result - Final JOSELYN [address] [facility] Department [place] [address] * hCG, blood, quantitative (03/17/2025 11:40 AM TRACTOR TRAILER TECHNICIAN) hCG, quant <5.0 0.0 - 5.0 IUnits/L Comment: Interpretive Data Male: < 5 IU/L Non- premenopausal Female: <5 IU/L The [employer] hCG Beta Quant assay procedure was used. Results from different manufacturers or methods may not be comparable. Serial testing should be performed using the same method. Interpretive Data was last revised on 2023 Testing performed by: [address] [address] Blood 03/17/2025 11:4 0 AM TRACTOR TRAILER TECHNICIAN 03/17/2025 12:11 PM TRACTOR TRAILER TECHNICIAN Ramy Aguilera MD LAB BLOOD ORDERABLES Edited Result - Final Performing Organization Address [facility] de Phone Number [address] [place] [address] * Uric acid (03/17/2025 11:40 AM TRACTOR TRAILER TECHNICIAN) [facility] Uric acid 5.6 2.5 - 7.0 mg/dL Comment:Testing performed by : [address] [address] Blood 03/17/2025 11:4 0 AM TRACTOR TRAILER TECHNICIAN 03/17/2025 11:45 AM TRACTOR TRAILER TECHNICIAN Ramy Aguilera MD LAB BLOOD ORDERABLES Final R esult Performing Organization Address [facility] Co de Phone Number [address] [place] [address] * Lactate dehydrogenase (LD) (03/17/2025 11:40 AM TRACTOR TRAILER TECHNICIAN) [facility] Lactate dehydrogenase (LDH) 243 100 - 250 Units/L Comment:Testing performed by : [address] [address] Blood 03/17/2025 11:4 0 AM TRACTOR TRAILER TECHNICIAN 03/17/2025 11:45 AM TRACTOR TRAILER TECHNICIAN us Ramy Aguilera MD LAB BLOOD ORDERABLES Final R esult JOSELYN [address] [facility] Department [place] [address] * (ABNORMAL) Comprehensive metabolic panel (03/17/2025 11:40 AM TRACTOR TRAILER TECHNICIAN) Sodium 140 135 - 145 mmol/L Comment:Testing performed by : [address] [address] Potassium, pl 3.9 3.3 - 4.9 mmol/L JOSELYN Comment:Testing performed by : [address] [address] Chloride 102 97 - 110 mmol/L JOSELYN Comment:Testing performed by : [address] [address] CO2 26 22 - 32 mmol/L JOSELYN Comment:Testing performed by : [address] [address] Anion gap 12 2 - 15 mmol/L JOSELYN Comment:Testing performed by : [address] [address] BUN 7 6 - 25 mg/dL JOESLYN Comment:Testing performed by : [address] [address] Creatinine 0.70 0.60 - 1.10 mg/dL JOSELYN Comment:Testing performed by : [address] [address] Glucose 101 70 - 199 mg/dL JOSELYN [...] was last revised 2022. Testing performed by: [address] [address] Calcium 8.8 8.5 - 10.3 mg/dL JOSELYN Comment:Testing performed by : [address] [address] Bilirubin, total 0.4 0.1 - 1.2 mg/dL JOSELYN Comment:Testing performed by : [address] [address] Protein, pl 6.3(L) 6.5 - 8.5 g/dL JOSELYN Comment:Testing performed by : [address] [address] Albumin 4.3 3.5 - 5.0 g/dL JOSELYN Comment:Testing performed by : [address] [address] Alk phos 209(H) 40 - 130 Units/L JOSELYN Comment:Testing performed by : [address], [address] ALT 25 7 - 45 Units/L JOSELYN Comment:Testing performed by : [address] [address] AST 33 10 - 45 Units/L [facility] Comment:Testing performed by : [address] [address] Blood 03/17/2025 11:4 0 AM TRACTOR TRAILER TECHNICIAN 03/17/2025 11:45 AM TRACTOR TRAILER TECHNICIAN us Ramy Aguilera MD LAB BLOOD ORDERABLES Final R esult JOSELYN [address] [facility] Department [place] [address] * TRANSTHORACIC ECHO (TTE) COMPLETE W DOPPLER/CF WO CONTRAST (03/08/2025 11:14 AM TRACTOR TRAILER TECHNICIAN) Estimated EF 59 % CONS SCIMAGE Anatomical Region Laterality Modality Ultrasound 03/08/2025 10:2 6 AM TRACTOR TRAILER TECHNICIAN Narrative 03/08/2025 5:07 PM TRACTOR TRAILER TECHNICIAN Transthoracic Echocardiographic Report Patient Name: SOHA MARRERO R : 1990 (35y ) Sex: F Study Date: 03/08/2025 10:26:39 AM Ht(Inch): 62 Wt(Lb): 111 BSA: 1.48 Research Program Coordinator: Olivia Song RDCS Order Provider: RAMY AGUILERA Heart Rate: 95 BMI: 20.3 BP: 115 / 53 Ref Provider: RAMY AGUILERA PROCEDURES: Echocardiographic Report: ([id number]) Transthoracic complete echo, 2D, spectral and tissue Doppler, color flow Doppler, M-mode. 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 FINDINGS: Left Ventricle: Normal [...] By: Sultan Nathen MD 03/08/2025 5:06:19 PM TRACTOR TRAILER TECHNICIAN Procedure Note Sultan Katherine Sena MD - 03/08/2025 Transthoracic Echocardiographic Report Patient Name: SOHA MARRERO R : 1990 (35y ) Sex: F Study Date: 03/08/2025 10:26:39 AM Ht(Inch): 62 Wt(Lb): 111 BSA: 1.48 Research Program Coordinator: Olivia Song RDCS Order Provider: RAMY AGUILERA Heart Rate: 95 BMI: 20.3 BP: 115 / 53 Ref Provider: RAMY AGUILERA PROCEDURES: Echocardiographic Report: ([id number]) Transthoracic complete echo, 2D,spectral and tissue Doppler, color flow Doppler, M-mode. INDICATIONS: C82.90 Follicular lymphoma, unspecified, unspecified site and Z79.899Other skilled nursing (current) drug therapy. FINDINGS: Left Ventricle: Normal [...] [ 1.71 - 5.00 ] MV Decel [id number] msec AoR Diam 2D 2.40 cm [ [...] By: Sultan Nathen MD 03/08/2025 5:06:19 PM TRACTOR TRAILER TECHNICIAN us Ramy Aguilera MD CV ECHO PROCEDURES Final Res ult * (ABNORMAL) Blood smear review (02/24/2025 10:12 AM TRACTOR TRAILER TECHNICIAN) RBC morphology Consistent with RBC Indicies Comment:Testing performed by : [address] [address] Anisocytosis Slight(A) JOSELYN VAZQUEZ Comment:Testing performed by : [address] [address] Platelet estimate Adequate JOSELYN VAZQUEZ Comment:Testing performed by : [address] [address] Blood 02/24/2025 10:1 2 AM TRACTOR TRAILER TECHNICIAN 02/24/2025 10:15 AM TRACTOR TRAILER TECHNICIAN us Ramy Aguilera MD LAB BLOOD ORDERABLES Final R esult JOSELYN [address] [facility] Department [place] [address] * eGFR (02/24/2025 10:12 AM TRACTOR TRAILER TECHNICIAN) eGFR >90 >=60 mL/min/1. 73 m2 Comment: [...] was last reviewed 2021. Testing performed by: [address] [address] Blood 02/24/2025 10:1 2 AM TRACTOR TRAILER TECHNICIAN 02/24/2025 10:15 AM TRACTOR TRAILER TECHNICIAN us Ramy Aguilera MD LAB BLOOD ORDERABLES Final R esult [facility] [address] [facility] Department [place] [address] * (ABNORMAL) Differential, auto (02/24/2025 10:12 AM TRACTOR TRAILER TECHNICIAN) Neutrophil abs 1.94 1.50 - 6.50 K/cumm Comment:Testing performed by : [address] [address] Imm gran abs 0.02 0.00 - 0.10 K/cumm JOSELYN Comment:Testing performed by : [address] [address] Lymphocyte abs 10.97(H) 0.80 - 3.30 K/cumm JOSELYN Comment:Testing performed by : [address] [address] Monocyte abs 0.29 0.20 - 0.80 K/cumm JOSELYN Comment:Testing performed by : [address] [address] Eosinophil abs 0.09 0.00 - 0.50 K/cumm JOSELYN Comment:Testing performed by : [address] [address] Basophil abs 0.05 0.00 - 0.10 K/cumm JOSELYN Comment:Testing performed by : [address] [address] Neutrophil pct 14.5 % JOSELYN Comment: Interpretive Data Percent cell count reference ranges are not reported, since discordance with absolute values may lead to misinterpretation of CBC data. Current Interpretive Data was last revised on 2017. Testing performed by: [address] [address] Imm gran pct 0.1 % JOSELYN Comment: Interpretive Data Percent cell count reference ranges are not reported, since discordance with absolute values may lead to misinterpretation of CBC data. Current Interpretive Data was last revised on 2017. Testing performed by: [address] [address] Lymphocyte pct 82.1 % [facility] Comment: Interpretive Data Percent cell count reference ranges are not reported, since discordance with absolute values may lead to misinterpretation of CBC data. Current Interpretive Data was last revised on 2017. Testing performed by: [address] [address] Monocyte pct 2.2 % [facility] Comment: Interpretive Data Percent cell count reference ranges are not reported, since discordance with absolute values may lead to misinterpretation of CBC data. Current Interpretive Data was last revised on 2017. Testing performed by: [address] [address] Eosinophil pct 0.7 % [facility] Comment: Interpretive Data Percent cell count reference ranges are not reported, since discordance with absolute values may lead to misinterpretation of CBC data. Current Interpretive Data was last revised on 2017. Testing performed by: [address] [address] Basophil pct 0.4 % [facility] Comment: Interpretive Data Percent cell count reference ranges are not reported, since discordance with absolute values may lead to misinterpretation of CBC data. Current Interpretive Data was last revised on 2017. Testing performed by: [address] [address] Blood 02/24/2025 10:1 2 AM TRACTOR TRAILER TECHNICIAN 02/24/2025 10:15 AM TRACTOR TRAILER TECHNICIAN us Ramy Aguilera MD LAB BLOOD ORDERABLES Final R esult JOSELYN VAZQUEZ [address] [facility] Department [place] [address] * (ABNORMAL) CBC with auto differential (02/24/2025 10:12 AM TRACTOR TRAILER TECHNICIAN) WBC 13.36(H) 3.80 - 9.90 K/cumm Comment:Testing performed by : [address], [address] Hgb 8.7(L) 11.9 - 15.5 g/dL JOSELYN Comment:Testing performed by : [address] [address] Hct 27.7(L) 35.6 - 45.5 % CERSUSAN Comment:Testing performed by : [address] [address] Plt 141(L) 150 - 400 K/cumm [facility]ERSUSAN Comment:Testing performed by : [address], [address] MPV 9.6 9.1 - 12.3 fL [facility] Comment:Testing performed by : [address], [address] RBC 2.98(L) 3.90 - 5.20 M/cumm JOSELYN Comment:Testing performed by : [address], [address] MCV 93.0 81.3 - 96.4 fL CERSUSAN Comment:Testing performed by : [address], [address] MCH 29.2 27.1 - 33.3 pg CERSUSAN Comment:Testing performed by : [address] [address] MCHC 31.4(L) 32.3 - 35.7 g/dL JOSELYN Comment:Testing performed by : [address], [address] RDW CV 18.6(H) 11.1 - 14.9 % CERSUSAN Comment:Testing performed by : [address], [address] RDW SD 60.3(H) 35.7 - 48.1 fL CERSUSAN Comment:Testing performed by : [address] [address] NRBC abs 0.02(H) 0.00 - 0.01 K/cumm JOSELYN Comment:Testing performed by : [address] [address] ANC Prelim 1.94 1.50 - 6.50 K/cumm JOSELYN Comment: Interpretive Data The rapid ANC is a preliminary automated count and may vary from the final ANC (Neut Abs) reported in the WBC differential that follows. Current interpretive data was last revised 2024. Testing performed by: [address] [address] Blood 02/24/2025 10:1 2 AM TRACTOR TRAILER TECHNICIAN 02/24/2025 10:15 AM TRACTOR TRAILER TECHNICIAN Ramy Aguilera MD LAB BLOOD ORDERABLES Final R esult Performing Organization Address [facility] Co de Phone Number JOSELYN [address] [facility] [place] [address] * hCG, blood, quantitative (02/24/2025 10:12 AM TRACTOR TRAILER TECHNICIAN) hCG, quant <5.0 0.0 - 5.0 IUnits/L Comment: Interpretive Data Male: < 5 IU/L Non- premenopausal Female: <5 IU/L The Cosmo hCG Beta Quant assay procedure was used. Results from different manufacturers or methods may not be comparable. Serial testing should be performed using the same method. Interpretive Data was last revised on 2023 Testing performed by: [address] [address] Blood 02/24/2025 10:1 2 AM TRACTOR TRAILER TECHNICIAN 02/24/2025 10:46 AM TRACTOR TRAILER TECHNICIAN Ramy Aguilera MD LAB BLOOD ORDERABLES Final R esult Performing Organization Address City/[facility] Co de Phone Number [facility] [address] [facility] [place] [address] * (ABNORMAL) Comprehensive metabolic panel (02/24/2025 10:12 AM TRACTOR TRAILER TECHNICIAN) Sodium 141 135 - 145 mmol/L Comment:Testing performed by : [address] [address] Potassium, pl 3.8 3.3 - 4.9 mmol/L [facility] Comment:Testing performed by : [address] [address] Chloride 102 97 - 110 mmol/L [facility] Comment:Testing performed by : [address] [address] CO2 26 22 - 32 mmol/L [facility] Comment:Testing performed by : [address] [address] Anion gap 13 2 - 15 mmol/L [facility] Comment:Testing performed by : [address] [address] BUN 13 6 - 25 mg/dL [facility] Comment:Testing performed by : [address] [address] Creatinine 0.70 0.60 - 1.10 mg/dL [facility] Comment:Testing performed by : [address] [address] Glucose 83 70 - 199 mg/dL [facility] Comment: Interpretive Data Fasting glucose >/= 126 [...] was last revised 2022. Testing performed by: [address] [address] Calcium 9.5 8.5 - 10.3 mg/dL [facility] Comment:Testing performed by : [address] [address] Bilirubin, total 0.3 0.1 - 1.2 mg/dL [facility] Comment:Testing performed by : [address] [address] Protein, pl 6.1(L) 6.5 - 8.5 g/dL JOSELYN VAZQUEZ Comment:Testing performed by : [address] [address] Albumin 4.0 3.5 - 5.0 g/dL JOSELYN VAZQUEZ Comment:Testing performed by : [address] [address] Alk phos 150(H) 40 - 130 Units/L JOSELYN Comment:Testing performed by : [address] [address] ALT 8 7 - 45 Units/L JOSELYN Comment:Testing performed by : [address] [address] AST 18 10 - 45 Units/L JOSELYN Comment:Testing performed by : [address] [address] Blood 02/24/2025 10:1 2 AM TRACTOR TRAILER TECHNICIAN 02/24/2025 10:15 AM TRACTOR TRAILER TECHNICIAN us Ramy Aguilera MD LAB BLOOD ORDERABLES Final R esult Performing Organization Address City/[facility]/ZIP Co de Phone Number [address] [employer] [place] [address] * POCT glucose (2025 10:24 AM TRACTOR TRAILER TECHNICIAN) Pathologist [facility] Glucose, POC 91 70 - 199 mg/dL Comment:Testing performed by : [address] [address] Blood 2025 10:2 4 AM TRACTOR TRAILER TECHNICIAN 2025 10:24 AM TRACTOR TRAILER TECHNICIAN Ramy Aguilera MD LAB POCT ORDERABLES - DEVICE Final Result Performing Organization Address City/[facility]/ZIP Co de Phone Number [address] [facility] [place] [address] * (ABNORMAL) Blood smear review (02/10/2025 10:45 AM TRACTOR TRAILER TECHNICIAN) [facility] RBC morphology Consistent with RBC Indicies Comment:Testing performed by : [address] [address] Anisocytosis Slight(A) JOSELYN VAZQUEZ Comment:Testing performed by : [address] [address] Platelet estimate Adequate JOSELYN VAZQUEZ Comment:Testing performed by : [address] [address] Blood 02/10/2025 10:4 5 AM TRACTOR TRAILER TECHNICIAN 02/10/2025 10:48 AM TRACTOR TRAILER TECHNICIAN us Ramy Aguilera MD LAB BLOOD ORDERABLES Final R esult JOSELYN VAZQUEZ [address] [facility] Department [place] [address] * eGFR (02/10/2025 10:45 AM TRACTOR TRAILER TECHNICIAN) eGFR >90 >=60 mL/min/1. 73 m2 Comment: [...] was last reviewed 2021. Testing performed by: [address] [address] Blood 02/10/2025 10:4 5 AM TRACTOR TRAILER TECHNICIAN 02/10/2025 10:48 AM TRACTOR TRAILER TECHNICIAN us Ramy Aguilera MD LAB BLOOD ORDERABLES Final R esult JOSELYN [address] [facility] Department [place] [address] * (ABNORMAL) Differential, auto (02/10/2025 10:45 AM TRACTOR TRAILER TECHNICIAN) Neutrophil abs 2.05 1.50 - 6.50 K/cumm Comment:Testing performed by : [address] [address] Imm gran abs 0.01 0.00 - 0.10 K/cumm JOSELYN Comment:Testing performed by : [address] [address] Lymphocyte abs 13.08(H) 0.80 - 3.30 K/cumm JOSELYN Comment:Testing performed by : [address] [address] Monocyte abs 0.29 0.20 - 0.80 K/cumm JOSELYN Comment:Testing performed by : [address] [address] Eosinophil abs 0.02 0.00 - 0.50 K/cumm JOSELYN Comment:Testing performed by : [address] [address] Basophil abs 0.07 0.00 - 0.10 K/cumm JOSELYN Comment:Testing performed by : [address] [address] Neutrophil pct 13.1 % JOSELYN Comment: Interpretive Data Percent cell count reference ranges are not reported, since discordance with absolute values may lead to misinterpretation of CBC data. Current Interpretive Data was last revised on 2017. Testing performed by: [address] [address] Imm gran pct 0.1 % JOSELYN Comment: Interpretive Data Percent cell count reference ranges are not reported, since discordance with absolute values may lead to misinterpretation of CBC data. Current Interpretive Data was last revised on 2017. Testing performed by: [address] [address] Lymphocyte pct 84.3 % JOSELYN Comment: Interpretive Data Percent cell count reference ranges are not reported, since discordance with absolute values may lead to misinterpretation of CBC data. Current Interpretive Data was last revised on 2017. Testing performed by: [address] [address] Monocyte pct 1.9 % JOSELYN VAZQUEZ Comment: Interpretive Data Percent cell count reference ranges are not reported, since discordance with absolute values may lead to misinterpretation of CBC data. Current Interpretive Data was last revised on 2017. Testing performed by: [address] [address] Eosinophil pct 0.1 % JOSELYN Comment: Interpretive Data Percent cell count reference ranges are not reported, since discordance with absolute values may lead to misinterpretation of CBC data. Current Interpretive Data was last revised on 2017. Testing performed by: [address] [address] Basophil pct 0.5 % JOSELYN Comment: Interpretive Data Percent cell count reference ranges are not reported, since discordance with absolute values may lead to misinterpretation of CBC data. Current Interpretive Data was last revised on 2017. Testing performed by: [address] [address] Blood 02/10/2025 10:4 5 AM TRACTOR TRAILER TECHNICIAN 02/10/2025 10:48 AM TRACTOR TRAILER TECHNICIAN us Ramy Aguilera MD LAB BLOOD ORDERABLES Final R esult JOSELYN [address] [facility] Department [place] [address] * (ABNORMAL) CBC with auto differential (02/10/2025 10:45 AM TRACTOR TRAILER TECHNICIAN) WBC 15.52(H) 3.80 - 9.90 K/cumm Comment:Testing performed by : [address] [address] Hgb 7.9(L) 11.9 - 15.5 g/dL JOSELYN VAZQUEZ Comment:Testing performed by : [address] [address] Hct 25.5(L) 35.6 - 45.5 % JOSELYN Comment:Testing performed by : [address] [address] Plt 128(L) 150 - 400 K/cumm JOSELYN Comment:Testing performed by : [address] [address] MPV 10.3 9.1 - 12.3 fL JOSELYN Comment:Testing performed by : [address] [address] RBC 2.75(L) 3.90 - 5.20 M/cumm JOSELYN Comment:Testing performed by : [address], [address] MCV 92.7 81.3 - 96.4 fL JOSELYN Comment:Testing performed by : [address] [address] MCH 28.7 27.1 - 33.3 pg JOSELYN Comment:Testing performed by : [address] [address] MCHC 31.0(L) 32.3 - 35.7 g/dL JOSELYN Comment:Testing performed by : [address] [address] RDW CV 18.0(H) 11.1 - 14.9 % JOSELYN Comment:Testing performed by : [address], [address] RDW SD 60.4(H) 35.7 - 48.1 fL [facility] Comment:Testing performed by : [address] [address] NRBC abs 0.00 0.00 - 0.01 K/cumm JOSELYN Comment:Testing performed by : [address] [address] ANC Prelim 2.05 1.50 - 6.50 K/cumm JOSELYN Comment: Interpretive Data The rapid ANC is a preliminary automated count and may vary from the final ANC (Neut Abs) reported in the WBC differential that follows. Current interpretive data was last revised 2024. Testing performed by: [address] [address] Blood 02/10/2025 10:4 5 AM TRACTOR TRAILER TECHNICIAN 02/10/2025 10:48 AM TRACTOR TRAILER TECHNICIAN Ramy Aguilera MD LAB BLOOD ORDERABLES Final R esult Performing Organization Address [facility] de Phone Number [address] [facility] [place] [address] * hCG, blood, quantitative (02/10/2025 10:45 AM TRACTOR TRAILER TECHNICIAN) hCG, quant <5.0 0.0 - 5.0 IUnits/L Comment: Interpretive Data Male: < 5 IU/L Non- premenopausal Female: <5 IU/L The [employer] hCG Beta Quant assay procedure was used. Results from different manufacturers or methods may not be comparable. Serial testing should be performed using the same method. Interpretive Data was last revised on 2023 Testing performed by: [address] [address] Blood 02/10/2025 10:4 5 AM TRACTOR TRAILER TECHNICIAN 02/10/2025 11:06 AM TRACTOR TRAILER TECHNICIAN us Ramy Aguilera MD LAB BLOOD ORDERABLES Final R esult Performing Organization Address City/[facility] de Phone Number [address] [employer] [place] [address] * (ABNORMAL) Comprehensive metabolic panel (02/10/2025 10:45 AM TRACTOR TRAILER TECHNICIAN) Sodium 143 135 - 145 mmol/L Comment:Testing performed by : [address] [address] Potassium, pl 3.8 3.3 - 4.9 mmol/L JOSELYN VAZQUEZ Comment:Testing performed by : [address] [address] Chloride 102 97 - 110 mmol/L JOSELYN VAZQUEZ Comment:Testing performed by : [address] [address] CO2 29 22 - 32 mmol/L [facility] Comment:Testing performed by : [address] [address] Anion gap 12 2 - 15 mmol/L JOSELYN Comment:Testing performed by : [address] [address] BUN 12 6 - 25 mg/dL JOSELYN Comment:Testing performed by : [address] [address] Creatinine 0.80 0.60 - 1.10 mg/dL JOSELYN Comment:Testing performed by : [address] [address] Glucose 94 70 - 199 mg/dL [facility] Comment: Interpretive Data Fasting glucose >/= [...] was last revised 2022. Testing performed by: [address] [address] Calcium 9.0 8.5 - 10.3 mg/dL JOSELYN Comment:Testing performed by : [address] [address] Bilirubin, total 0.3 0.1 - 1.2 mg/dL [facility] Comment:Testing performed by : [address] [address] Protein, pl 6.1(L) 6.5 - 8.5 g/dL JOSELYN Comment:Testing performed by : [address] [address] Albumin 4.0 3.5 - 5.0 g/dL JOSELYN Comment:Testing performed by : [address] [address] Alk phos 149(H) 40 - 130 Units/L JOSELYN VAZQUEZ Comment:Testing performed by : [address] [address] ALT 11 7 - 45 Units/L JOSELYN VAZQUEZ Comment:Testing performed by : [address] [address] AST 23 10 - 45 Units/L JOSELYN VAZQUEZ Comment:Testing performed by : [address] [address] Blood 02/10/2025 10:4 5 AM TRACTOR TRAILER TECHNICIAN 02/10/2025 10:48 AM TRACTOR TRAILER TECHNICIAN us Ramy Aguilera MD LAB BLOOD ORDERABLES Final R esult Performing Organization Address [facility] de Phone Number JOSELYN [address] [employer] [place] [address] * (ABNORMAL) Blood smear review (02/03/2025 11:19 AM CDT) Pathologist [facility] RBC morphology Consistent with RBC Indicies Comment:Testing performed by : [address] [address] Anisocytosis Slight(A) JOSELYN VAZQUEZ Comment:Testing performed by : [address] [address] Platelet estimate Adequate JOSELYN VAZQUEZ Comment:Testing performed by : [address] [address] Blood 02/03/2025 11:1 9 AM CDT 02/03/2025 11:22 AM CDT us Ramy Aguilera MD LAB BLOOD ORDERABLES Final R esult Performing Organization Address City/[facility] Co de Phone Number DARRIN[address] [employer] [place] [address] * eGFR (02/03/2025 11:19 AM CDT) eGFR [...] was last reviewed 2021. Testing performed by: [address] [address] Blood 02/03/2025 11:1 9 AM CDT 02/03/2025 11:22 AM CDT us Ramy Aguilera MD LAB BLOOD ORDERABLES Final R esult [facility] [address] [facility] Department [place] [address] * (ABNORMAL) Differential, auto (02/03/2025 11:19 AM CDT) Neutrophil abs 2.22 1.50 - 6.50 K/cumm Comment:Testing performed by : [address] [address] Imm gran abs 0.04 0.00 - 0.10 K/cumm JOSELYN Comment:Testing performed by : [address] [address] Lymphocyte abs 22.28(H) 0.80 - 3.30 K/cumm JOSELYN Comment:Testing performed by : [address] [address] Monocyte abs 0.58 0.20 - 0.80 K/cumm JOSELYN Comment:Testing performed by : [address] [address] Eosinophil abs 0.01 0.00 - 0.50 K/cumm JOSELYN Comment:Testing performed by : [address] [address] Basophil abs 0.11(H) 0.00 - 0.10 K/cumm JOSELYN Comment:Testing performed by : [address] [address] Neutrophil pct 8.8 % JOSELYN Comment: Interpretive Data Percent cell count reference ranges are not reported, since discordance with absolute values may lead to misinterpretation of CBC data. Current Interpretive Data was last revised on 2017. Testing performed by: [address] [address] Imm gran pct 0.2 % JOSELYN Comment: Interpretive Data Percent cell count reference ranges are not reported, since discordance with absolute values may lead to misinterpretation of CBC data. Current Interpretive Data was last revised on 2017. Testing performed by: [address] [address] Lymphocyte pct 88.3 % [facility] Comment: Interpretive Data Percent cell count reference ranges are not reported, since discordance with absolute values may lead to misinterpretation of CBC data. Current Interpretive Data was last revised on 2017. Testing performed by: [address] [address] Monocyte pct 2.3 % [facility] Comment: Interpretive Data Percent cell count reference ranges are not reported, since discordance with absolute values may lead to misinterpretation of CBC data. Current Interpretive Data was last revised on 2017. Testing performed by: [address] [address] Eosinophil pct 0.0 % JOSELYN Comment: Interpretive Data Percent cell count reference ranges are not reported, since discordance with absolute values may lead to misinterpretation of CBC data. Current Interpretive Data was last revised on 2017. Testing performed by: [address] [address] Basophil pct 0.4 % JOSELYN Comment: Interpretive Data Percent cell count reference ranges are not reported, since discordance with absolute values may lead to misinterpretation of CBC data. Current Interpretive Data was last revised on 2017. Testing performed by: [address] [address] Blood 02/03/2025 11:1 9 AM CDT 02/03/2025 11:22 AM CDT us Ramy Aguilera MD LAB BLOOD ORDERABLES Final R esult [facility] [address] [facility] Department [place] [address] * (ABNORMAL) CBC with auto differential (02/03/2025 11:19 AM CDT) WBC 25.24(H) 3.80 - 9.90 K/cumm Comment:Testing performed by : [address] [address] Hgb 8.7(L) 11.9 - 15.5 g/dL JOSELYN Comment:Testing performed by : [address] [address] Hct 28.1(L) 35.6 - 45.5 % JOSELYN Comment:Testing performed by : [address] [address] Plt 176 150 - 400 K/cumm JOSELYN Comment:Testing performed by : [address] [address] MPV 9.6 9.1 - 12.3 fL JOSELYN Comment:Testing performed by : [address] [address] RBC 3.07(L) 3.90 - 5.20 M/cumm JOSELYN Comment:Testing performed by : [address] [address] MCV 91.5 81.3 - 96.4 fL JOSELYN Comment:Testing performed by : [address] [address] MCH 28.3 27.1 - 33.3 pg CERNER Comment:Testing performed by : [facility], [address] [place] [address]., [address] MCHC 31.0(L) 32.3 - 35.7 g/dL JOSELYN VAZQUEZ Comment:Testing performed by : [address] [address] RDW CV 17.6(H) 11.1 - 14.9 % JOSELYN Comment:Testing performed by : [address] [address] RDW SD 57.8(H) 35.7 - 48.1 fL JOSELYN Comment:Testing performed by : [address] [address] NRBC abs 0.02(H) 0.00 - 0.01 K/cumm JOSELYN Comment:Testing performed by : [address] [address] ANC Prelim 2.22 1.50 - 6.50 K/cumm JOSELYN Comment: Interpretive Data The rapid ANC is a preliminary automated count and may vary from the final ANC (Neut Abs) reported in the WBC differential that follows. Current interpretive data was last revised 2024. Testing performed by: [address] [address] Blood 02/03/2025 11:1 9 AM CDT 02/03/2025 11:22 AM CDT Ramy Aguilera MD LAB BLOOD ORDERABLES Edited Result - Final JOSELYN [address] [facility] Department [facility] [place] [id number] * hCG, blood, quantitative (02/03/2025 11:19 AM CDT) [facility] hCG, quant <5.0 0.0 - 5.0 IUnits/L Comment: Interpretive Data Male: < 5 IU/L Non- premenopausal Female: <5 IU/L The Cosmo hCG Beta Quant assay procedure was used. Results from different manufacturers or methods may not be comparable. Serial testing should be performed using the same method. Interpretive Data was last revised on 2023 Testing performed by: [address] [address] Blood 02/03/2025 11:1 9 AM CDT 02/03/2025 11:45 AM CDT Ramy Aguilera MD LAB BLOOD ORDERABLES Final R esult Performing Organization Address [facility] de Phone Number [address] [address] * (ABNORMAL) Lactate dehydrogenase (LD) (02/03/2025 11:19 AM CDT) [facility] Lactate dehydrogenase (LDH) 392(H) 100 - 250 Units/L Comment: HEMOLYZED: Hemolysis interferes with the above test. Testing performed by: [address] [address] Blood 02/03/2025 11:1 9 AM CDT 02/03/2025 11:22 AM CDT Ramy Aguilera MD LAB BLOOD ORDERABLES Final R ult Performing Organization Address [facility] de Phone Number [address] [address] * (ABNORMAL) Comprehensive metabolic panel (02/03/2025 11:19 AM CDT) [facility] Sodium 136 135 - 145 mmol/L Comment:Testing performed by : [address] [address] Potassium, pl 3.7 3.3 - 4.9 mmol/L JOSELYN VAZQUEZ Comment:Testing performed by : [address] [address] Chloride 99 97 - 110 mmol/L JOSELYN Comment:Testing performed by : [address] [address] CO2 23 22 - 32 mmol/L JOSELYN VAZQUEZ Comment:Testing performed by : [address] [address] Anion gap 14 2 - 15 mmol/L JOSELYN Comment:Testing performed by : [address] [address] BUN 8 6 - 25 mg/dL JOSELYN Comment:Testing performed by : [address], [place]., [address] Creatinine 0.70 0.60 - 1.10 mg/dL JOSELYN Comment:Testing performed by : [address] [address] Glucose 105 70 - 199 mg/dL JOSELYN [...] was last revised 2022. Testing performed by: [address] [address] Calcium 9.3 8.5 - 10.3 mg/dL JOSELYN Comment:Testing performed by : [address] [address] Bilirubin, total 0.5 0.1 - 1.2 mg/dL JOSELYN Comment:Testing performed by : [address] [address] Protein, pl 6.4(L) 6.5 - 8.5 g/dL JOSELYN Comment:Testing performed by : [address] [address] Albumin 4.0 3.5 - 5.0 g/dL JOSELYN Comment:Testing performed by : [address] [address] Alk phos 180(H) 40 - 130 Units/L JOSELYN Comment:Testing performed by : [address] [place]., [address] ALT 25 7 - 45 Units/L JOSELYN VAZQUEZ Comment:Testing performed by : [facility], [address] [place] [address]., [address] AST 33 10 - 45 Units/L JOSELYN VAZQUEZ Comment:Testing performed by : [address] [address] Blood 02/03/2025 11:1 9 AM CDT 02/03/2025 11:22 AM CDT us Ramy Aguilera MD LAB BLOOD ORDERABLES Final R esult Performing Organization Address City/[facility] Co de Phone Number DARR[address] [place] [address] * (ABNORMAL) Blood smear review (01/13/2025 10:00 AM CDT) Pathologist [facility] RBC morphology Consistent with RBC Indicies Comment:Testing performed by : [address] [address] Anisocytosis Slight(A) JOSELYN VAZQUEZ Comment:Testing performed by : [address] [address] Platelet estimate Adequate JOSELYN Comment:Testing performed by : [facility], [address] [place] [address]., [address] Blood 01/13/2025 10:0 0 AM CDT 01/13/2025 10:02 AM CDT us Ramy Aguilera MD LAB BLOOD ORDERABLES Final R esult Performing Organization Address City/[facility]/ZIP Co de Phone Number [address] [place] [address] * eGFR (01/13/2025 10:00 AM CDT) Pathologist [facility] eGFR >90 >=60 mL/min/1. 73 m2 Comment: [...] was last reviewed 2021. Testing performed by: [address] [address] Blood 01/13/2025 10:0 0 AM CDT 01/13/2025 10:02 AM CDT Ramy Aguilera MD LAB BLOOD ORDERABLES Final R esult JOSELYN [facility] Department of Laboratories [place], [place] [id number] * (ABNORMAL) Differential, auto (01/13/2025 10:00 AM CDT) Neutrophil abs 1.44(L) 1.50 - 6.50 K/cumm Comment:Testing performed by : [address] [address] Imm gran abs 0.03 0.00 - 0.10 K/cumm JOSELYN Comment:Testing performed by : [address] [address] Lymphocyte abs 17.55(H) 0.80 - 3.30 K/cumm JOSELYN Comment:Testing performed by : [address] [address] Monocyte abs 0.33 0.20 - 0.80 K/cumm JOSELYN Comment:Testing performed by : [address] [address] Eosinophil abs 0.04 0.00 - 0.50 K/cumm JOSELYN Comment:Testing performed by : [address] [address] Basophil abs 0.10 0.00 - 0.10 K/cumm JOSELYN Comment:Testing performed by : [address] [address] Neutrophil pct 7.4 % [facility] Comment: Interpretive Data Percent cell count reference ranges are not reported, since discordance with absolute values may lead to misinterpretation of CBC data. Current Interpretive Data was last revised on 2017. Testing performed by: [address] [address] Imm gran pct 0.2 % [facility] Comment: Interpretive Data Percent cell count reference ranges are not reported, since discordance with absolute values may lead to misinterpretation of CBC data. Current Interpretive Data was last revised on 2017. Testing performed by: [address] [address] Lymphocyte pct 90.0 % [facility] Comment: Interpretive Data Percent cell count reference ranges are not reported, since discordance with absolute values may lead to misinterpretation of CBC data. Current Interpretive Data was last revised on 2017. Testing performed by: [address] [address] Monocyte pct 1.7 % [facility] Comment: Interpretive Data Percent cell count reference ranges are not reported, since discordance with absolute values may lead to misinterpretation of CBC data. Current Interpretive Data was last revised on 2017. Testing performed by: [address] [address] Eosinophil pct 0.2 % [facility] Comment: Interpretive Data Percent cell count reference ranges are not reported, since discordance with absolute values may lead to misinterpretation of CBC data. Current Interpretive Data was last revised on 2017. Testing performed by: [address] [address] Basophil pct 0.5 % [facility] Comment: Interpretive Data Percent cell count reference ranges are not reported, since discordance with absolute values may lead to misinterpretation of CBC data. Current Interpretive Data was last revised on 2017. Testing performed by: [address] [address] Blood 01/13/2025 10:0 0 AM CDT 01/13/2025 10:02 AM CDT us Ramy Aguilera MD LAB BLOOD ORDERABLES Final R esult [facility] [address] [facility] Department [place] [address] * (ABNORMAL) CBC with auto differential (01/13/2025 10:00 AM CDT) WBC 19.49(H) 3.80 - 9.90 K/cumm Comment:Testing performed by : [address] [address] Hgb 8.1(L) 11.9 - 15.5 g/dL JOSELYN Comment:Testing performed by : [address] [address] Hct 25.4(L) 35.6 - 45.5 % JOSELYN Comment:Testing performed by : [address] [address] Plt 108(L) 150 - 400 K/cumm JOSELYN Comment:Testing performed by : [address] [address] MPV 8.8(L) 9.1 - 12.3 fL JOSELYN Comment:Testing performed by : [address] [address] RBC 2.77(L) 3.90 - 5.20 M/cumm JOSELYN Comment:Testing performed by : [address] [address] MCV 91.7 81.3 - 96.4 fL JOSELYN Comment:Testing performed by : [address] [address] MCH 29.2 27.1 - 33.3 pg JOSELYN Comment:Testing performed by : [address] [address] MCHC 31.9(L) 32.3 - 35.7 g/dL JOSELYN Comment:Testing performed by : [address] [address] RDW CV 17.9(H) 11.1 - 14.9 % JOSELYN Comment:Testing performed by : [address] [address] RDW SD 59.7(H) 35.7 - 48.1 fL JOSELYN Comment:Testing performed by : [address] [address] NRBC abs 0.02(H) 0.00 - 0.01 K/cumm JOSELYN Comment:Testing performed by : [address] [address] ANC Prelim 1.44(L) 1.50 - 6.50 K/cumm JOSELYN Comment: Interpretive Data The rapid ANC is a preliminary automated count and may vary from the final ANC (Neut Abs) reported in the WBC differential that follows. Current interpretive data was last revised 2024. Testing performed by: [address] [address] Blood 01/13/2025 10:0 0 AM CDT 01/13/2025 10:02 AM CDT Ramy Aguilera MD LAB BLOOD ORDERABLES Edited Result - Final [facility] [address] [facility] Department of Laboratories [place], [place] [id number] * hCG, blood, quantitative (01/13/2025 10:00 AM [...] last revised on 2023 Testing performed by: [address] [address] Blood 01/13/2025 10:0 0 AM CDT 01/13/2025 10:18 AM CDT us Ramy Aguilera MD LAB BLOOD ORDERABLES Final R esult [facility] [address] [facility] Department [place] [address] * (ABNORMAL) Comprehensive metabolic panel (01/13/2025 10:00 AM CDT) Sodium 138 135 - 145 mmol/L Comment:Testing performed by : [address] [address] Potassium, pl 3.2(L) 3.3 - 4.9 mmol/L JOSELYN Comment:Testing performed by : [address] [address] Chloride 98 97 - 110 mmol/L JOSELYN Comment:Testing performed by : [address] [address] CO2 26 22 - 32 mmol/L JOSELYN Comment:Testing performed by : [address] [address] Anion gap 14 2 - 15 mmol/L JOSELYN Comment:Testing performed by : [address] [address] BUN 6 6 - 25 mg/dL JOSELYN Comment:Testing performed by : [address] [address] Creatinine 0.70 0.60 - 1.10 mg/dL JOSELYN Comment:Testing performed by : [address] [address] Glucose 131 70 - 199 mg/dL JOSELYN [...] was last revised 2022. Testing performed by: [address] [address] Calcium 9.0 8.5 - 10.3 mg/dL JOSELYN Comment:Testing performed by : [address] [address] Bilirubin, total 0.5 0.1 - 1.2 mg/dL JOSELYN Comment:Testing performed by : [address] [address] Protein, pl 5.8(L) 6.5 - 8.5 g/dL JOSELYN Comment:Testing performed by : [address] [address] Albumin 3.8 3.5 - 5.0 g/dL JOSELYN Comment:Testing performed by : [address] [address] Alk phos 238(H) 40 - 130 Units/L JOSELYN Comment:Testing performed by : [address] [address] ALT 17 7 - 45 Units/L JOSELYN Comment:Testing performed by : [address] [address] AST 30 10 - 45 Units/L JOSLEYN Comment:Testing performed by : [address] [address] Blood 01/13/2025 10:0 0 AM CDT 01/13/2025 10:02 AM CDT us Ramy Aguilera MD LAB BLOOD ORDERABLES Final R esult JOSELYN [address] [facility] Department of Laboratories [place], [place] [id number] from Last 3 Months Additional Health Concerns Infection Onset Date Last Indicated C. difficile 11/18/2024 11/18/2024 Insurance [facility] Advance Directives For more information, please contact: [phone] * Full Code (Latest Code Status on File) Date Activated Date Inactivated Comments 09/22/2024 9:00 PM 09/24/2024 10:30 PM * Full Code Date Activated Date Inactivated Comments 09/17/2024 2:33 PM 09/17/2024 11:31 PM Care Teams Software Packager Relationship Specialty Start Date End Date Satya Fernandez MD [address] [facility] [place] [address] PCP - General Internal Medicine 10/21/24 Ramy Aguilera MD [address] [place] [address] Medical Oncologist/Mailing Specialist Internal Medicine 09/23/24
--- OUTSIDE RECORDS SUMMARY | 2025-03-28 07:48 | XMS_ITS | Data Portability ---
Author Organization [email or web address], Main Office Address [address] [place] [address] Assessment No assessment recorded. Plan of Treatment Reminders Order Date Submit Date Provider Last Modified By Organization Details Last Modified Time Details Appointments None recorded. Lab None recorded. Referral None recorded. Procedures None recorded. Surgeries None recorded. Imaging None recorded. Medication Orders Bactrim DS 800 mg-160 mg tablet [facility] [place], [address], 05:01:17 Patient TargetsNo targets recorded. Patient InstructionsNo instructions recorded. Reason for Referral None Reported. Problems Name Problem SNOMED Code Status Onset Date Resolution Date Notes Provider Name and Address Organization Details Recorded Time Abscess of buttock 71257893 Active Miki horan MD [address], [address] , [email or web address] 12:25:52 Abscess 660247860 Active Miki horan MD [address], [address] , [email or web address] 11:32:47 Problem Notes None recorded. Procedures Surgical History Date Name Laterality Status Provider Name and Address Organization Details Recorded Time other completed Evie Garnett MA [email or web address] 02/08/2025 08:46:26 other completed Evie Garnett MA [email or web address] 02/08/2025 08:46:48 other completed Evie Garnett MA [email or web address] 02/08/2025 08:47:04 other completed Evie Garnett MA [facility] 02/08/2025 12:10:34 Imaging Results None recorded. Procedure Notes None recorded. Medical Equipment None Reported. Allergies Allergen ID Allergen Name Allergen Category Reaction Reaction Severity Criticality Documentation Date Start Date Code Code System Note Provider Name and Address Organization Details Recorded Time 99411 Zithromax medicatio n Not available Not available Not available 02/08/2025 33868 4 [facility] 08:50:00 [address]4610 codeine medicatio n Not available Not available Not available 02/08/2025 2670 RxNorm CHARISSE Freeman [facility] [employer] [facility] 08:50:09 Medications Name Sig Start [...] Updated DateTime 02/08/2025 157.48 cm 21.9 kg/m2 89337.0 8 g 98.6 [degF] 15 /min Evie Garnett MA [facility] [employer] [facility] 12:16:57 Social History Question Answer Notes LastModified by Organizat ion Details LastModified Time Tobacco Smoking Status Current Every Day Smoker CHARISSE Freeman [facility] 02/08/2025 08:49:19 What Is Your Level Of [...] 02/08/2025 Do You Use Sunscreen Routinely? No [place] [address] Information not available 02/08/2025 Sex: Unknown Functional Status Question Answer Note LastModified by Organizat ion Details LastModified Time Do you use any illicit or recreational drugs? Yes cannabis [place] [address] Information not available 02/08/2025 What is your level of alcohol consumption? None [place] [address] Information not available 02/08/2025 Are you currently employed? No [place] [address] Information not available 02/08/2025 Mental Status None recorded. Family History Relationship Description Onset Age of this Age Resolved Age Notes LastModified by Organization Details LastModified Time Father No current problems or disability [place] [address] Not available 02/08 08:47:21 Mother No current problems or disability [place] [address] Not available 02/08 08:47:22 Medical History Condition Response CANCER: SPECIFY Y OTHER # 1 DEPRESSION (INCLUDING POST ) Gynecological HistoryNo gynecological history recorded. Obstetrics History GPAL:G 0 P 0 0 0 0 Past Encounters Encounter ID Performer Location Encounter Start Date Encounter Closed Date Diagnosis/Indication Diagnosis SNOMED-CT Code Diagnosis ICD10 Code Diagnosis IMO Codes Diagnosis Note [id number] Miki horan MD [facility] General Surgery [address] [facility] [address] [place] [address] 02/08/2025 11:43:17 03/06/2025 11:35:16 Abscess of buttock 49549239 L02.31 0728465 Open wound of R buttock. Will rx bactrim and f/u PRN if wound does not resolve. Continue sitz baths. Abscess 318460758 L02.91 [address] Health Concerns Section Related Observation LastModified by Organization Detai ls LastModified Time None Recorded Concern Status LastModified by Organization Details LastModified Time None Recorded Advance Directives Directive None Recorded Payers Insurance Date Sequence Insurance Name Policy Number Policy Woods Covered Member ID Woods Member ID Guarantor Name 03/06/2025 1 [facility] (MEDICAID HMO) [id number] Soha Marrero [id number] Soha Marrero Notes Date Note Type Note [...] fevers at home. Miki Herr MD [address] [facility], [place] [address], [place], [address], [place] - [facility] 02/09/2025 11:33:02 OBGyn Episode No OBEpisode recorded.
--- OUTSIDE RECORDS SUMMARY | 2025-03-28 07:48 | XMS_ITS | Clinical Summary ---
Author Organization [facility] Address [address] [place] [address] Phone Care Team Providers Care Internship Name Role Phone Gabriel Salmeron MD Unavailable [phone] Brooks Sosa MD Unavailable Provider, None Primary [...] current use Anxiety 05/07/2023 Under care of retirement service 05/07/2023 Overview (05/07/2023): Two previous stays at retirement Child living with her parents Resolved Problems Problem Noted Date Diagnosed Date Resolved Date LRTI (lower respiratory tract infection) 09/09/2023 11/26/2023 Lymphoma 05/07/2023 10/29/2023 Overview (05/21/2023): Resistant to care No show ONC Refusing hospice 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/21/2023): Current cannabis; 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 Yes 05/07/2023 Social Connection and Isolation Panel Answer Date Recorded In a typical week, how many times do you talk on the phone with family, friends, or neighbors? Once a week 05/07/2023 How often do you get together with friends or re latives? Once a week 05/07/2023 How often do you attend restoration or evangelical serv ices? Never 05/07/2023 Do you belong to any clubs o r organizations such as restoration groups, unions, fraternal or athletic groups, or [...] 9 06/06 [facility] of Occupat ional Health - Occupational Stress [...] Sex Assigned at Female 05/21/2023 11:44 AM [employer]NA[employer] Legal Sex Female 5:17 PM CDT Gender Identity Female 05/21/2023 11:44 AM [employer] Sexual Orientation Not on file Last Filed [...] change(07/29 4:12 PM CDT) Yes Janette Tom, FABRIC SEPARATOR OPERATOR Note: Goal/Objective: Improve insight and understanding of behaviors and feelings. Anticipated Time Frame for Goal Completion: 6 months Goal Reviewed with: patient Readiness to change: Ready to change Department associated with goal: [facility] Steps to [...] a triggering event occurs Insurance MEDICAID [facility] Care Teams Internship Relationship Specialty Start Date End Date Provider, None [place] PCP - General 06/17/24 Gabriel Salmeron MD [address] [place] [address] Consulting Physician Medical Oncology 05/23/23 Brooks Sosa MD [address] [place] [phone] Consulting Physician Neurology 01/22/24 Kervin Jiang MD [address] [phone] Consulting Physician General Surgery 06/11/24
--- OUTSIDE RECORDS SUMMARY | 2025-03-28 07:48 | XMS_ITS ---
Author Organization [facility] [address] [facility] Address [address] [place] [address] Care Team Providers Care Lithopress Operator Name Role Phone Ramy Aguilera MD Unavailable [phone] Satya Fernandez MD Primary Care Provider [phone] Active Problems Problem Noted Date Diagnosed Date [...] 3:43 PM CDT): - Follicular lymphoma (Dr. gAuilera; s/p 6 cycles bendamustine and 1 cycle [...] - Plan to discharge patient with outpatient [facility] follow-up on 09/30/24. Assessment & Plan [...] - Plan to discharge patient with outpatient [facility] follow-up on 09/30/24. Assessment & Plan [...]
--- OUTSIDE RECORDS SUMMARY | 2025-03-28 07:48 | XMS_ITS | Continuity of Care Document ---
Author Organization [facility] [employer], [facility] General Surgery Address [address] [place] [address] Assessment No assessment recorded. Plan of Treatment Reminders Order Date Submit Date Provider Last Modified By Organization Details Last Modified Time Details Appointments None recorded. Lab None recorded. Referral None recorded. Procedures None recorded. Surgeries None recorded. Imaging None recorded. Medication Orders Bactrim DS 800 mg-160 mg tablet [facility] [place], [address], 05:01:17 Patient TargetsNo targets recorded. Patient InstructionsNo instructions recorded. Reason for Referral None Reported. Problems Name Problem SNOMED Code Status Onset Date Resolution Date Notes Provider Name and Address Organization Details Recorded Time Abscess of buttock 63644567 Active Miki horan MD [address], [address] , [facility] [employer] [facility] [employer] 12:25:52 Abscess 385640228 Active Miki horan MD [address] [facility], [place] [address], [place], [address] , [facility] [employer] 11:32:47 Problem Notes None recorded. Procedures Surgical History Date Name Laterality Status Provider Name and Address Organization Details Recorded Time other completed Evie Garnett MA [facility] [employer] 02/08/2025 08:46:26 other completed Evie Garnett MA [facility] [employer] [facility] 02/08/2025 08:46:48 other completed CHARISSE Freeman - [facility] [place] [employer] [facility] 02/08/2025 08:47:04 other completed Evie Garnett MA [facility] 02/08/2025 12:10:34 Imaging Results None recorded. Procedure Notes None recorded. Medical Equipment None Reported. Allergies Allergen ID Allergen Name Allergen Category Reaction Reaction Severity Criticality Documentation Date Start Date Code Code System Note Provider Name and Address Organization Details Recorded Time 02495 Zithromax medicatio n Not available Not available Not available 02/08/2025 98637 4 RxNorm CHARISSE Freeman, [facility] [employer] [facility] 08:50:00 36835 codeine medicatio n Not available Not available Not available 02/08/2025 2670 RxNorm CHARISSE Freeman, [facility] [employer] [facility] 08:50:09 Medications Name Sig Start Date Stop [...] Updated DateTime 02/08/2025 157.48 cm 21.9 kg/m2 89269.0 8 g 98.6 [degF] 15 /min Evie Garnett MA [facility] [employer] [facility] 12:16:57 Social History Question Answer Notes LastModified by Organizat ion Details LastModified Time Tobacco Smoking Status Current Every Day Smoker CHARISSE Freeman, [facility] [employer] [facility] 02/08/2025 08:49:19 What Is Your Level Of [...] Carbon Monoxide Detectors In Your Home? [place] [address] Information not available 02/08/2025 Do You Use Sunscreen Routinely? No [place] [address] Information not available 02/08/2025 Sex: Unknown Functional Status Question Answer Note LastModified by Organizat ion Details LastModified Time Do you use any illicit or recreational drugs? Yes cannabis [place] [address] Information not available 02/08/2025 What is your level of alcohol consumption? None [place] [address] Information not available 02/08/2025 Are you currently employed? No [place] [address] Information not available 02/08/2025 Mental Status None recorded. Family History Relationship Description Onset Age of this Age Resolved Age Notes LastModified by Organization Details LastModified Time Father No current problems or disability [place] [address] Not available 02/08 08:47:21 Mother No current problems or disability [place] [address] Not available 02/08 08:47:22 Medical History Condition Response CANCER: SPECIFY Y OTHER # 1 DEPRESSION (INCLUDING POST ) Gynecological HistoryNo gynecological history recorded. Obstetrics History GPAL:G 0 P 0 0 0 0 Past Encounters Encounter ID Performer Location Encounter Start Date Encounter Closed Date Diagnosis/Indication Diagnosis SNOMED-CT Code Diagnosis ICD10 Code Diagnosis IMO Codes Diagnosis Note [id number] Miki horan MD [facility] General Surgery [address] [address] 02/08/2025 11:43:17 03/06/2025 11:35:16 Abscess of buttock 51215421 L02.31 9963951 Open wound of R buttock. Will rx bactrim and f/u PRN if wound does not resolve. Continue sitz baths. Abscess 112583644 L02.91 78470 Health Concerns Section Related Observation LastModified by Organization Detai ls LastModified Time None Recorded Concern Status LastModified by Organization Details LastModified Time None Recorded Payers Encounter Date Sequence Insurance Name Policy Number Policy Woods Covered Member ID Woods Member ID Guarantor Name 02/08/2025 1 [facility] (MEDICAID HMO) [id number] Soha Marrero [id number] Soha Marrero Notes Date Note Type Note Provider Name and Address Organization Details Recorded Time 02/08/2025 text/html Patinet presents to clinic to discuss boil of [...] fevers at home. Miki Herr MD [address] [facility], [facility] [address], [place], [address], [place] [employer] [facility] 02/09/2025 11:33:02 OBGyn Episode No OBEpisode recorded.
--- OUTSIDE RECORDS SUMMARY | 2025-03-28 07:49 | XMS_ITS | Clinical Summary ---
Author Organization [facility] Address [address] [place] [address] Care Team Providers Care Steep Tender Name Role Phone Unavailable Primary Care [...] Pain, Mild. Active naloxone (NARCAN) 4 mg/spray [place], Non-Aerosol EMERGENCY USE ONLY: Administer 1 spray [...] Comments Blood Pressure 109/66 04/17/2023 8:40 AM [employer] Pulse 111 04/17/2023 8:40 AM [employer] Temperature 36.6 C (97.9 F) 04/17/2023 8:40 AM [employer] Respiratory Rate 10 04/17/2023 8:40 AM [employer] Oxygen Saturation 92% 03/27/2023 11:06 AM [employer] Inhaled Oxygen Concentration - - Weight 51.3 kg (113 lb) 04/17/2023 8:40 AM [employer] Height 162.6 cm (5' 4) 03/24/2023 6:27 PM [employer] Body Mass Index 19.4 03/24/2023 6:27 PM [employer] Plan of Treatment Health Maintenance Due Date [...] [place] [facility] [employer] Advance Directives For more information, please contact: [phone] * Full Code (Latest Code Status on File) Date Activated Date Inactivated Comments 03/25/2023 1:09 AM 03/26/2023 3:29 PM
--- OUTSIDE RECORDS SUMMARY | 2025-03-28 07:49 | XMS_ITS | Data Portability ---
Author Organization [facility] Address [address] [place] [address] Assessment Encounter Date Assessment Date Assessment LastModified by Organization Details LastModified Time 07/29/2024 07/29/2024 Annual gynecological exam performed. Patient will come back in a year unless there are new symptoms. [email or web address] Not available 07/29/2024 11:38:03 Plan of Treatment Reminders Order Date Submit Date Provider Last Modified By Organization Details Last Modified Time Details Appointments None recorded. Lab hbcab (hepatitis B core Ab) igm, serum 2024 025 [facility] (Lab), [address] [place], [address], 5 11:25:14 HBsAg (hepatitis B surface Ag), serum 2024 025 [facility] (Lab), [address] [place], [address], 5 11:25:14 hepatitis C virus Ab, serum 2024 025 [facility] (Lab), [address] [place], [address], 5 11:25:13 HIV 1+2 AB + HIV 1 p24 Ag, qualitative immunoassay , serum 2024 025 [facility] (Lab), [address] [place], [address], 5 11:25:13 RPR (rapid plasma reagin), serum 2024 025 [facility] (Lab), [address] [facility], [place], [address], 5 11:25:14 pap, IG + HR HPV - HPV regardless but if HPV is positive need subtyping 16,18/45 add STI to pap GC/CT/Trich 2024 025 [facility] (Lab), [address] [facility], [place], [address], 5 13:59:16 culture, urine 2024 [facility] (Lab), [address] [facility], [place], [address], 5 13:59:18 Referral None recorded. Procedures None recorded. Surgeries None recorded. Imaging MAMMO, diagnostic, digital, bilateral 2024 [facility], [address], [place], [address], 05:01:54 US, breast, bilateral, complete 2024 [facility], [address], [place], [address], 05:01:53 Medication Orders None recorded. Patient TargetsNo [...] of expos ure to HCV. Not Available [facility] (Lab) [address], [place], [address], 07/30/2024 11:25:13 07/30/19 25 07/29/2024 HIV 1/2 ANTIG EN/AN TIBOD Y, REFLE X CONFI RMATI ON HIV antigen/anti body Nonrea ctive nonrea ctive HIV-1 antig en and HIV-1 /HIV- 2 antib odies were not detec gabriella. No labor atory evide nce of HIV infec tion. Not Available [facility] (Lab) [address] [facility] [facility], [place], [address], 07/30/2024 11:25:13 07/30/19 25 07/29/2024 HEPAT ITIS B SURFA CE ANTIG EN hepatitis B surface antigen Non-re active non-re active This assay was perfo rmed using [employer] ratio n reage nts and test kits. Value s obtai mxaim with other assay metho ds or kits canno t be used inter caro eably . Not Available [facility] (Lab) [address], [place], [address], 07/30/2024 11:25:14 07/30/19 25 07/29/2024 RPR SCREE N, REFLE X TITER /CONF IRMAT ION RPR qualitative Nonrea ctive nonrea ctive Not Available [facility] (Lab) [address] [facility], [place], [address], 07/30/2024 11:25:14 07/30/19 25 07/29/2024 HEPAT ITIS B CORE, IGM hepatitis B core IgM antibody Non-re active non-re active IgM anti- HBc not detec gabriella. Does not exclu de the possi bilit y of expos ure to or infec tion with HBV. Test Perfo rmed by: Adrian daniels rn, [facility] [address] [place] [address] Not Available [facility] (Lab) [address] [facility], [place], [address], 07/30/2024 11:25:14 07/30/19 25 07/29/2024 IMAGE GUIDE [...] Naty muñiz or Rinku jain ([facility]) . Elect apple velazquez d [...] as clini nati zamarripa nted. Not Available [facility] (Lab) [address], [place], [address], 08/03/2024 13:59:16 07/30/19 25 07/29/2024 TRICH OMONA S VAGIN CHALO (RRNA ) trichomonas vaginalis ribosomal RNA (rrna) Negati ve negati ve Not Available [facility] (Lab) [address] [place], [address], 08/03/2024 13:59:17 07/30/19 25 07/29/2024 CT/GC (FAREED) , THINP REP VIAL chlamydia trachomatis, PCR Negati ve negati ve Not Available [facility] (Lab) [address], [place], [address], 08/03/2024 13:59:17 07/30/19 25 07/29/2024 CT/GC (FAREED) , THINP REP VIAL neisseria gonorrhoeae, PCR Negati ve negati ve Not Available [facility] (Lab) [address], [place], [address], 08/03/2024 13:59:17 07/30/19 25 07/29/2024 CULTU RE: URINE result report SEE RESULT S BELOW abnormal Test: Cultu re: Urine Speci men Sourc e: Urine - Clean Catch Speci men Type: Urine Speci men Date: 2024 1446 Resul t Date: 2024 0713 Resul t Statu s: Final resul t Ramakrishnaor mal: Yes Jacoby garcia Lab: [facility] [address] [facility] [address] Tel: CULTU RE ----- ----- ----- --- [...] <=0.5 ug/mL Susce ptibl e Not Available [facility] (Lab) [address], [place], [address], 08/03/2024 13:59:18 Result Notes None recorded. Procedures [...] Name and Address Organization Details Recorded Time 49724 [employer] Not available Not available Not available 07/29/2024 [facility] 11:57:32 90617 Benadryl medicatio n Not available Not available Not available 07/29/202462516 7 RxNorm [facility] 11:57:43 65349 azithromy louis medicatio n Not available Not available Not available 07/29/2024 88497 RxNorm [facility] 11:58:11 Medications Name Sig Start [...] Updated DateTime 07/29/2024 157.48 cm 21.8 kg/m2 58444.49 g 119/81 mm[Hg] Lety Khan [facility] 07/29/2024 11:56:58 Social History Question Answer Notes LastModified by Organizat ion Details LastModified Time Do You Have An Advance Directive? No [email or web address] Information n ot available 07/29/2024 Are You Blind Or Do You Have Difficulty Seeing? No [email or web address] Information n ot available 07/29/2024 What Is Your Level Of Caffeine Consumption? Occasional [email or web address] Information not available 07/29/2024 How Much Tobacco Do You Chew? None [email or web address] Information not available 07/29/2024 In The 14 Days Before Symptom Onset, Have You Had Close Contact With A Laboratory-confirm ed COVID-19 While That Case Was Ill? No [email or web address] Information n ot available 07/29/2024 In The 14 Days Before Symptom Onset, Have You Had Close Contact With A Person Who Is Under Investigation For COVID-19 While That Person Was Ill? No [email or web address] Information not available 07/29/2024 Have You Been To An Area Known To Be High Risk For COVID-19? No [email or web address] Information not available 07/29/2024 Are You Deaf Or Do You Have Serious Difficulty Hearing? No [email or web address] Information not available 07/29/2024 What Type Of Diet Are You Following? REGULAR [email or web address] Information n ot available 07/29/2024 What Is The Highest Grade Or Level Of School You Have Completed Or The Highest Degree You Have Received? [id number] Information not available 07/29/2024 Are There Any Guns Present In Your Home? No [email or web address] Information not available 07/29/2024 Do You Use Protection During Sex? No Information not available 07/29/2024 Do You Use Your Seat Belt Or Car Seat Routinely? No [email or web address] Information not available 07/29/2024 Do You Have Smoke And Carbon Monoxide Detectors In Your Home? Yes [email or web address] Information not available 07/29/2024 At What Age Did You Start Smoking Tobacco? 21 [email or web address] Information not available 07/29/2024 How Much Tobacco Do You Smoke? 1 PPD [email or web address] Information not available 07/29/2024 Do You Use Sunscreen Routinely? No [email or web address] Information not available 07/29/2024 Have You Used IV Drugs? No Information not available 07/29/2024 Sex: Unknown Functional Status Question Answer Note LastModified by Organizat ion Details LastModified Time Do you use any illicit or recreational drugs? No Information not available 07/29/2024 What is your level of alcohol consumption? Occasional [email or web address] Information not available 07/29/2024 Are you able [...] anxious, or unable to sleep at night)? [id number] Information not available 07/29/2024 Family History Nothing [...] ICD10 Code Diagnosis IMO Codes Diagnosis Note [id number] ANIA Reeves [employer] [address] [address] 07/29/2024 11:33:28 07/30/2024 10:26:56 Gynecologic examination 91416233 Z01.427 6824478 WWEBC - declinedPa p - done todaySTI [...] advised. Questions answered. Venereal d isease screening 830317601 Z11.3 61416 Sexually t ransmitted infectious disease 1193145 A64 Breast lump 66151438 N63 .0 [id number] order given for bilateral diagnostic mammogram and u/s Health Concerns Section Related Observation LastModified by Organization Detai ls LastModified Time None Recorded Concern Status LastModified by Organization Details LastModified Time None Recorded Advance Directives Directive N: Payers Insurance Date Sequence Insurance Name Policy Number Policy Woods Covered Member ID Woods Member ID Guarantor Name 08/02/2024 1 [facility] (MEDICAID HMO) [id number] Soha Marrero [id number] Soha Marrero Notes Date Note Type Note [...] since 2023 ANIA Reeves [address], [place], [address], [place] [facility] 07/30/2024 09:32:49 OBGyn Episode Ob Episode Information Episode Created Date Number of Fetuses Patient Bloodtype Patient rh Status Prepregnancy Weight lbs Domestic Partner Domestic Partner Phone Father Name Electric Vehicle Electrician Status 07/30/19 1 CLOSED Fetus Data First Name Last Name Admitted to NICU Weight (g) Sex Living Outcome Pediatric Complications Fetus ID Race Codes Race Delivery Type , Induced 60081 Fly Calculation Initial Fly Date Initial Exam [...] Domestic Partner Domestic Partner Phone Father Name Electric Vehicle Electrician Status 07/30/19 1 CLOSED Fetus Data First Name Last Name Admitted to NICU Weight (g) Sex Living Outcome Pediatric Complications Fetus ID Race Codes Race Delivery Type , Spontane ous 15037 Fly Calculation Initial Fly Date Initial Exam [...] Domestic Partner Domestic Partner Phone Father Name Electric Vehicle Electrician Status 07/30/19 25 1 CLOSED Fetus Data First Name Last Name Admitted to NICU Weight (g) Sex Living Outcome Pediatric Complications Fetus ID Race Codes Race Delivery Type F Prematur e 36922 Vaginal Delivery Fly Calculation Initial Fly Date [...]
[2025-03-28 07:50] VITALS: BP 137/90; PULSE 103; RESP 19; TEMP 36.9; O2SAT 100
[2025-03-28 08:09] VITALS: PULSE 98; RESP 20
[2025-03-28] MEDS: ALBUTEROL SULFATE NEB 2.5 MG/3 ML INH INHALATION (08:09)
[2025-03-28 08:15] VITALS: PULSE 96; RESP 20
--- NOTE | 2025-03-28 08:33 | ED.GENADULT ---
HPI - General Adult General Chief complaint: Upper Respiratory Infection Stated complaint: sick Time Seen by Provider: 03/28/25 07:53 History of Present Illness HPI narrative: 35-year-old female present to the emergency department for evaluation for worsening body aches fatigue cough congestion nausea vomiting and diarrhea. Patient is currently undergoing chemotherapy. Patient was diagnosed with influenza a on Friday. Patient presents emergency department today complaining of worsening symptoms. Related Data Home Medications ?Medication ?Instructions ?Recorded ?Confirmed ?Last Taken ?Type hydroxyzine HCl 25 mg tablet 25 mg PO TID 03/21/23 03/27/23 Unknown History methylprednisolone 4 mg tablets in mg 03/21/23 03/21/23 Unknown History a dose pack hydroxyzine HCl 25 mg tablet mg 09/30/23 Unknown History ibuprofen 600 mg tablet mg 09/30/23 Unknown History megestrol 400 mg/10 mL (40 mg/mL) mg 09/30/23 Unknown History oral suspension morphine 30 mg immediate release mg 09/30/23 Unknown History tablet ondansetron 4 mg disintegrating mg 09/30/23 Unknown History tablet pregabalin 50 mg capsule mg 09/30/23 Unknown History promethazine 25 mg rectal mg RECTAL 09/30/23 Unknown History suppository (Promethegan) valacyclovir 500 mg tablet mg 09/30/23 Unknown History Allergies Allergy/AdvReac Type Severity Reaction Status Date / Time azithromycin AdvReac Nausea Verified 03/28/25 09:40 codeine AdvReac Vomiting Verified 03/28/25 09:40 diphenhydramine (From AdvReac Jittery Verified 03/28/25 09:40 Benadryl) pecan nut AdvReac Nausea and Verified 03/28/25 09:40 Vomiting Review of Systems Review of Systems: All systems reviewed & are unremarkable except as noted in HPI and below PMFSH Past Medical History Medical History Lymphoma Drug-induced psychotic disorder Atypical bipolar disorder Anxiety MRSA infection buttock and leg during last lengthy incarceration (2020) Ectopic Methamphetamine abuse, episodic History of heroin use Surgical History Surgical History History of breast surgery 2018 or 2019, due to butane manager willow requiring I/D and subsequent wound care. L Side. History of salpingo-oophorectomy Social History Social History Social History: Currently living with boyfriend. Full Code. Surrogate decision maker - Isaiah Beverly (step-dad), if unavailable then Marlene Carbone (mom). Smoking packs per day: 1 Smoking cigarettes per day: 20.0 Years smoked: 11 Smoking pack-years: 11.00 Smoking status: Current every day smoker Tobacco type: cigarettes Alcohol intake: current Drinks per week: 1 Alcohol use details: social Substance use: former Substance use type: marijuana Other substance usage details: QUIT USING EARLY DEC 2022 D/T DIAGNOSIS & SURGERY Last use: last use of heroin-September 2014 Lack of Transportation: No Lack of Food: Never True Current Housing: I Have Housing Concerned About Future Housing: No Difficulty Paying Gas/Electric Bills: No Difficulty Paying for Meds: No Currently Unemployed: No Education: High School Diploma/GED Difficulty w/ Childcare or Family Care: No Living arrangements: with friend(s) Additional living arrangements comments: boyfriend Spiritual care concerns: No Exam Narrative: APPEARANCE: ill-appearing HEAD: normocephalic, atraumatic. EYES: PERRLA/EOMI, conjunctivae clear. NOSE: Normal no drainage EARS:TMS clear with good light reflex. THROAT: Pharynx clear, no exudate. NECK: Supple. No adenopathy, no masses. RESPIRATORY: Airway patent, respirations nonlabored. Clear to auscultation bilaterally, no rales, rhonchi, wheezing. CARDIOVASCULAR: Regular rate and rhythm without murmurs rubs or gallops. ABDOMINAL: Soft, nontender, nondistended, normal bowel sounds MUSCULOSKELETAL: Moves all extremities. Strength/ROM intact, No edema, No calf tenderness. NEURO: Alert. Cranial nerves II through XII intact. Good gait. Good coordination SKIN: Warm, dry. Normal Color Course Vital Signs Vital signs: Vital Signs Temperature 98.5 F 03/28/25 07:50 Pulse Rate 103 H 03/28/25 07:50 Respiratory Rate 19 03/28/25 07:50 Blood Pressure 137/90 03/28/25 07:50 Pulse Oximetry 100 03/28/25 07:50 Oxygen Delivery Room Air 03/28/25 07:50 Temperature 98.5 F 03/28/25 07:50 Pulse Rate 86 03/28/25 09:47 Respiratory Rate 14 03/28/25 09:47 Blood Pressure 113/69 03/28/25 09:47 Pulse Oximetry 98 03/28/25 09:47 Oxygen Delivery Room Air 03/28/25 09:47 [facility] Narrative Medical decision making narrative: 35-year-old female presents emergency department for evaluation for worsening nausea vomiting after a recent diagnosis influenza A. Patient is currently afebrile but does have a leukocytosis of 13.0 and hemoglobin 9.7. Patient has no acute abnormalities on her CMP. Patient was positive for influenza A negative influenza B RSV and for COVID. Chest x-ray shows no acute cardiopulmonary while. Patient was treated with a L of lactated Ringer's and patient was requesting to be discharged to home. Patient was improved appearing at time of discharge. All questions concerns were addressed patient was encouraged of close follow-up with primary care physician for additional outpatient testing. Differential Diagnosis Differential Diagnosis: COVID, RSV, influenza a, influenza B, pneumonia, CLOVIS Lab Data [facility] Lab Attestation statement: I personally reviewed the patient's lab results. 03/28/25 09:14 03/28/25 09:14 Labs: Lab Results 03/28/25 03/28/25 Range/Units 08:03 09:14 WBC 13.0 H (4.5-10.0) K/mm3 RBC 3.23 L (4.2-5.4) M/mm3 Hgb 9.7 L (12.0-15.0) g/dL Hct 29.9 L (37.0-47.0) % MCV 92.6 (80-100) fl MCH 30.0 (26-34) pg MCHC 32.4 (32-36) g/dl RDW 16.8 H (11.5-14.5) % Plt Count 125 L (150-375) k/mm3 MPV 9.4 (7.4-10.4) fl Immature Gran % (Auto) 0.1 (0-0.5) % Neut % (Auto) 10.4 L (45.5-73.1) % Lymph % (Auto) 86.9 H (18.3-44.2) % Wells % (Auto) 1.9 L (2.6-8.5) % Eos % (Auto) 0.1 (0-4.4) % Baso % (Auto) 0.6 (0.2-1.2) % Lymph # (Auto) 11.32 H (0.9-3.2) K/mm3 Wells # (Auto) 0.3 (0.1-0.6) K/mm3 Eos # (Auto) 0.0 (0-0.3) K/mm3 Baso # (Auto) 0.1 (0.0-0.1) K/mm3 Abs Immat Gran (auto) 0.01 (0.00-0.031) K/mm3 Absolute Neuts (auto) 1.4 (1.3-6.7) K/mm3 Absolute Nucleated RBC 0.000 (0.0-0.012) K/mm3 Nucleated RBC % 0.0 (0.0-0.2) % Sodium 137 (137-145) mmol/L Potassium 2.9 L (3.4-5.0) mmol/L Chloride 100 (98-107) mmol/L Carbon Dioxide 27 (22-30) mmol/L Anion Gap 10 (4-12) mmol/L BUN 8 (7-17) mg/dL Creatinine 0.55 L (0.7-1.0) mg/dL Estim Creat Clear Calc 91 ml/min Estimated GFR > 60 (59 - ) Glucose 112 H (65-110) mg/dL Calcium 9.0 (8.4-10.2) mg/dL Total Bilirubin 0.5 (0.2-1.3) mg/dL AST 31 (14-36) U/L ALT 21 (6-35) U/L Alkaline Phosphatase 108 (38-126) U/L Total Protein 7.2 (6.3-8.2) g/dL Albumin 4.4 (3.5-5.1) g/dL Influenza A (RT-PCR) Positive A (Negative) Influenza B (RT-PCR) Negative (Negative) RSV (RT-PCR) Negative (Negative) SARS-CoV-2 RNA (RT-PCR) Negative (Negative) Imaging Data Attestation: I personally reviewed and interpreted this imaging study as follows: My impression: chest x-ray: No acute cardiopulmonary abnormality Radiologist's impression: ITS Impressions Chest X-Ray 03/28/25 09:24 IMPRESSION: 1. No acute cardiopulmonary findings. Discharge Plan Discharge Clinical Impression: Influenza A Patient Disposition: Home Condition: Stable Instructions: Antibiotic Form, Viral Syndrome (ED) Additional Instructions: continue to have close follow-up with your physicians. If you have any worsening symptoms please call or return to the emergency department. Patient Language: Mauritian Prescriptions: No Action oxycodone-acetaminophen [Percocet] 10-325 mg tablet 1 tablet PO Q4H PRN (Reason: pain) Qty: 5 0RF ondansetron 4 mg tablet,disintegrating 4 mg PO Q6H PRN (Reason: nausea and vomiting) Qty: 20 0RF hydroxyzine HCl 25 mg tablet 25 mg PO TID methylprednisolone 4 mg tablets,dose pack promethazine 25 mg suppository 25 mg RECTAL Q6H PRN (Reason: nausea and vomiting) Qty: 12 0RF ondansetron 4 mg tablet,disintegrating 4 mg PO Q8H PRN (Reason: nausea and vomiting) Qty: 30 0RF oxycodone-acetaminophen [Percocet] 10-325 mg tablet 1 tablet PO Q6H PRN (Reason: pain) Qty: 20 0RF ondansetron 4 mg tablet,disintegrating 4 mg PO Q8H PRN (Reason: nausea and vomiting) Qty: 10 0RF potassium chloride 20 mEq/15 mL liquid 20 meq PO DAILY 7 Days Qty: 105 0RF dicyclomine 10 mg capsule 10 mg PO BID PRN (Reason: abdominal pain) Qty: 20 0RF magnesium citrate Solution 150 ml PO DAILY PRN (Reason: constipation) Qty: 296 0RF psyllium husk [Metamucil] 0.4 gram capsule 0.4 g PO DAILY PRN (Reason: constipation) Qty: 30 0RF polyethylene glycol 3350 [Miralax] 17 gram/dose powder 17 g PO DAILY Qty: 119 0RF oseltamivir [Tamiflu] 75 mg capsule 75 mg PO Q12H 5 Days Qty: 10 0RF promethazine 25 mg suppository 25 mg RECTAL Q6H PRN (Reason: nausea and vomiting) Qty: 12 0RF megestrol 400 mg/10 mL (40 mg/mL) suspension promethazine [Promethegan] 25 mg suppository RECTAL valacyclovir 500 mg tablet morphine 30 mg tablet hydroxyzine HCl 25 mg tablet ibuprofen 600 mg tablet ondansetron 4 mg tablet,disintegrating pregabalin 50 mg capsule phenazopyridine [Pyridium] 200 mg tablet 200 mg PO TID Qty: 6 0RF amoxicillin-pot clavulanate 875-125 mg tablet 1 tablet PO Q12H Qty: 14 0RF Follow-up/Referrals: PHYSICIAN NOT ON STAFF,NONSTAFF [Non-Staff]
[2025-03-28 08:44] LABS: Influenza A QL RT-PCR Positive (Negative); Influenza B QL RT-PCR Negative (Negative); RSV RNA, RT-PCR Negative (Negative); SARS-CoV-2 RNA PCR Negative (Negative)
[2025-03-28 09:22] LABS: Hematocrit 29.9 % (37.0-47.0); Hemoglobin 9.7 g/dL (12.0-15.0); Immature Granulocyte Percent A 0.1 % (0-0.5); Lymphocytes Absolute Auto 11.32 K/mm3 (0.9-3.2); Mean Corpuscular HGB Conc 32.4 g/dl (32-36); Mean Corpuscular Hemoglobin 30.0 pg (26-34); Mean Corpuscular Volume 92.6 fl (80-100); Nucleated Red Blood Cells Absolute Auto 0.000 K/mm3 (0.0-0.012); Nucleated Red Blood Cells Perc 0.0 % (0.0-0.2); Platelet Count Result 125 k/mm3 (150-375); Red Blood Count 3.23 M/mm3 (4.2-5.4); White Blood Count 13.0 K/mm3 (4.5-10.0)
[2025-03-28] MEDS: ONDANSETRON INJ 4 MG/2 ML VIAL IV PUSH (09:41)
[2025-03-28] MEDS: LACTATED RINGERS 1,000 ML 999 ML IV CONT (09:41)
[2025-03-28] MEDS: KETOROLAC 15 MG/ML VIAL (*BKC) IV PUSH (09:43)
[2025-03-28 09:47] VITALS: BP 113/69; PULSE 86; RESP 14; O2SAT 98
[2025-03-28 09:48] LABS: Alanine Aminotransferase 21 U/L (6-35); Albumin Level 4.4 g/dL (3.5-5.1); Alkaline Phosphatase 108 U/L (38-126); Anion Gap 10 mmol/L (4-12); Aspartate Amino Transferase 31 U/L (14-36); Bilirubin,Total 0.5 mg/dL (0.2-1.3); Blood Urea Nitrogen 8 mg/dL (7-17); Calcium 9.0 mg/dL (8.4-10.2); Carbon Dioxide 27 mmol/L (22-30); Chloride 100 mmol/L (98-107); Estimated CRCL calculation 91 ml/min; Estimated Glomerular Filt Rate > 60; Glucose 112 mg/dL (65-110); Potassium 2.9 mmol/L (3.4-5.0); Sodium 137 mmol/L (137-145); Total Protein 7.2 g/dL (6.3-8.2)
[2025-03-28] MEDS: POTASSIUM CHLORIDE 20 MEQ PACKET (FOR LIQUID) 40 MEQ PO (10:11)
--- OUTSIDE RECORDS SUMMARY | 2025-03-28 10:33 | XMS_ITS ---
Author Organization [facility] Address [address] [place] [address] Phone Care Team Providers Care Kick Press Operator Name Role Phone Gabriel Salmeron MD Unavailable [phone] Brooks Sosa MD Unavailable [phone] Provider, None Primary Care Provider UnavailKervin Rubi MD Unavailable [phone] [facility] Status:Enrolled (Active) Program category:Social Drivers of Health/Community Resource Coordination Start date:05/05/2024 Enrollment date:05/05/2024 Related social drivers of health:Social Connections, Tobacco Use, Depression, Stress, Physical Activity, Utilities Continued Care and Services Coordination
--- OUTSIDE RECORDS SUMMARY | 2025-03-28 10:33 | XMS_ITS ---
Author Organization [facility] Address [address] [place] [address] Phone Care Team Providers Care Armature And Rotor Winder Name Role Phone Gabriel Salmeron MD Unavailable [phone] Brooks Sosa MD Unavailable Provider, None Primary [...] group home Child living with her parents Current [...]
--- OUTSIDE RECORDS SUMMARY | 2025-03-28 10:33 | XMS_ITS | Clinical Summary ---
Author Organization [facility] Address [address] [place] [address] Phone Care Team Providers Care Retail Aide Name Role Phone Gabriel Salmeron MD [...] current use Anxiety 05/07/2023 Under care of [facility] 05/07/2023 Overview (05/07/2023): [facility] Child living with her parents Resolved Problems Problem Noted Date Diagnosed Date Resolved Date LRTI (lower respiratory tract infection) 09/09/2023 11/26/2023 Lymphoma 05/07/2023 10/29/2023 Overview (05/21/2023): Resistant to care No show ONC Refusing hospice 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/21/2023): Current cannabis; 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 Hx of [facility] time Encounters Date Type Department Care Team Description 02/21/2025 Refill [facility] On[facility] Services [address] [place] [address] Gabriel Salmeron MD Medication Refill [...] Recorded In the past 12 months has [employer], gas, oil, or water [employer] threatened to shut off services in your home? Yes 05/07/2023 Social Connection and Isolation Panel Answer Date Recorded In a typical week, how many times do you talk on the phone with family, friends, or neighbors? Once a week 05/07/2023 How often do you get together with friends or re latives? Once a week 05/07/2023 How often do you attend zoroastrian or taoist serv ices? Never 05/07/2023 Do you belong [...] Total Score - Questions 1-9 9 06/06 [facility] - Occupational [...] Sex Assigned at Female 05/21/2023 11:44 AM COUNCIL MEMBER Legal Sex Female 5:17 PM CDT Gender Identity Female 05/21/2023 11:44 AM COUNCIL MEMBER Sexual Orientation Not on file Last Filed [...] change(07/29 4:12 PM CDT) Yes Janette Tom, TELEPHONE EXCHANGE OPERATOR Note: Goal/Objective: Improve insight and understanding of behaviors and feelings. Anticipated Time Frame for Goal Completion: 6 months Goal Reviewed with: patient Readiness to change: Ready to change Department associated with goal: [facility] Steps to [...] a triggering event occurs Insurance MEDICAID [facility] Care Teams Retail Aide Relationship Specialty Start Date End Date Provider, None [place] PCP - General 06/17/24 Gabriel Salmeron MD [address] [place] [address] Consulting Physician Medical Oncology 05/23/23 Brooks Sosa MD [address] [place] [id number] Consulting Physician Neurology 01/22/24 Kervin Jiang MD [address] [phone] Consulting Physician General Surgery 06/11/24
--- OUTSIDE RECORDS SUMMARY | 2025-03-28 10:33 | XMS_ITS ---
Author Organization [facility] [address] [facility] Address [address] [place] [address] Care Team Providers Care Cereal Maker Name Role Phone Ramy Aguilera MD Unavailable [phone] Satya Fernandez MD Primary Care Provider [phone] Active Problems Problem Noted Date Diagnosed Date [...] - Plan to discharge patient with outpatient [facility] follow-up on 09/30/24. Assessment & Plan (09/23/2024 [...] - Plan to discharge patient with outpatient [facility] follow-up on 09/30/24. Assessment & Plan (09/23/2024 [...]
--- OUTSIDE RECORDS SUMMARY | 2025-03-28 10:34 | XMS_ITS | Clinical Summary ---
Author Organization [facility] Address [address] [place] [address] Care Team Providers Care Collections Clerk Name Role Phone None, Provider MD Primary [...] Department Care Team Description 03/24/2025 Results Follow-Up [facility] Care [facility] [place] [address] Tunde Bess APRN CULTURE, BACTERIA, BLOOD 03/24/2025 Results Follow-Up [facility] [place] [address] Tunde Bess APRN CULTURE, BACTERIA, BLOOD, CULTURE, BACTERIA, BLOOD, RESPIRATORY PCR PNL LIMITED (FLU A/FLU B/RSV/COVID) 03/22/2025 8:17 PM HUMAN SERVICES CASE MANAGER - 03/22/2025 11:25 PM HUMAN SERVICES CASE MANAGER Emergency [facility] [place] [address] Evie Pulido MD Medical Screening Discharge Disposition: Home or Self Care (Routine Discharge) 03/22/2025 Travel 03/21/2025 5:20 PM HUMAN SERVICES CASE MANAGER - 03/21/2025 8:48 PM HUMAN SERVICES CASE MANAGER Emergency [facility] [place] [address] Clyde Raygoza MD Weakness Discharge Disposition: Left Against Medical Advice 03/21/2025 Travel 02/09/2025 5:04 PM HUMAN SERVICES CASE MANAGER - 02/09/2025 7:39 PM HUMAN SERVICES CASE MANAGER Emergency [facility] [place] [address] Rishi Cote MD Medical Screening Discharge Disposition: Home or Self Care (Routine Discharge) 02/09/2025 Travel 01/27/2025 Results Follow-Up [facility] [address] [place] [address] Thalia Hall, INSPECTOR WREATH Pathology 01/24/2025 11:15 PM CDT - 01/25/2025 1:40 AM CDT Emergency [facility] [place] [address] Koko Johnson MD,PHD Mouth Sores Discharge Disposition: [...] Sex Assigned at Female 02/09/2025 4:27 PM HUMAN SERVICES CASE MANAGER Legal Sex Female 7:16 PM CDT Gender Identity Not on file Sexual Orientation Not on file Last Filed Vital Signs Vital Sign Reading Time Taken Comments Blood Pressure 113/82 03/22/2025 11:24 PM HUMAN SERVICES CASE MANAGER Pulse 66 03/22/2025 6:52 PM HUMAN SERVICES CASE MANAGER Temperature 36.8 C (98.2 F) 03/22/2025 6:52 PM HUMAN SERVICES CASE MANAGER Respiratory Rate 18 03/22/2025 6:52 PM HUMAN SERVICES CASE MANAGER Oxygen Saturation 98% 03/22/2025 6:52 PM HUMAN SERVICES CASE MANAGER Inhaled Oxygen Concentration - - Weight 55.2 kg (121 lb 11.1 oz) 03/22/2025 6:52 PM HUMAN SERVICES CASE MANAGER Height 160 cm (5' 3) 03/22/2025 6:52 PM HUMAN SERVICES CASE MANAGER Body Mass Index 21.56 03/22/2025 6:52 PM HUMAN SERVICES CASE MANAGER Plan of Treatment Health Maintenance Due [...] Diagnosis Comments URINALYSIS STAT 03/22/2025 10:20 PM HUMAN SERVICES CASE MANAGER CULTURE, BACTERIA, BLOOD STAT 03/22/2025 8:30 PM HUMAN SERVICES CASE MANAGER MAGNESIUM STAT 03/22/2025 8:30 PM HUMAN SERVICES CASE MANAGER LACTIC ACID W REFLEX (SEPSIS) STAT 03/22/2025 8:30 PM HUMAN SERVICES CASE MANAGER COMPREHENSIVE METABOLIC PANEL STAT 03/22/2025 8:30 PM HUMAN SERVICES CASE MANAGER HC CBC AUTO W/AUTO DIFF STAT 03/22/20 8:30 PM HUMAN SERVICES CASE MANAGER RESPIRATORY PCR PNL LIMITED STAT 03/21/2025 8:24 PM HUMAN SERVICES CASE MANAGER LACTIC ACID W REFLEX (SEPSIS) TIMED 03/21/2025 8:00 PM HUMAN SERVICES CASE MANAGER CT CHEST+ABD+PEL W CON STAT 7:21 PM HUMAN SERVICES CASE MANAGER POCT URINE (BACK OFFICE) STAT 03/21/2025 6:50 PM HUMAN SERVICES CASE MANAGER CULTURE, BACTERIA, BLOOD STAT 03/21/2025 6:09 PM HUMAN SERVICES CASE MANAGER ECG 12-LEAD Routine 03/21/2025 6:06 PM HUMAN SERVICES CASE MANAGER LACTIC ACID W REFLEX (SEPSIS) STAT 03/21/2025 6:03 PM HUMAN SERVICES CASE MANAGER MAGNESIUM STAT 03/21/2025 6:03 PM HUMAN SERVICES CASE MANAGER LIPASE STAT 03/21/2025 6:03 PM HUMAN SERVICES CASE MANAGER CK (CPK) STAT 03/21/2025 6:03 PM HUMAN SERVICES CASE MANAGER COMPREHENSIVE METABOLIC PANEL STAT 03/21/2025 6:03 PM HUMAN SERVICES CASE MANAGER PARTIAL THROMBOPLASTIN TIME,PTT STAT 03/21/2025 6:03 PM HUMAN SERVICES CASE MANAGER PROTHROMBIN TIME, VENOUS STAT 03/21/2025 6:03 PM HUMAN SERVICES CASE MANAGER HC CBC AUTO W/AUTO DIFF STAT 03/21/20 6:03 PM HUMAN SERVICES CASE MANAGER CULTURE, BACTERIA, BLOOD STAT 03/21/2025 5:59 PM HUMAN SERVICES CASE MANAGER LACTIC ACID W REFLEX (SEPSIS) STAT 02/09/2025 5:42 PM HUMAN SERVICES CASE MANAGER BASIC METABOLIC PANEL STAT 02/09/2025 5:42 PM HUMAN SERVICES CASE MANAGER CBC W/DIFF AUTOMATED STAT 02/09/2025 5:42 PM HUMAN SERVICES CASE MANAGER PATHOLOGY Routine 01/25/2025 12:00 AM CDT FLOW CYTOMETRY (LEUKEMIA/LYMPHOMA PANEL) Routine 01/24/2025 11:29 PM CDT HC HCG QL STAT 01/24/2025 11:29 PM CDT HC COMPREHENSIVE METABOLIC PANEL STAT 01/24/2025 11:29 PM CDT HC CBC AUTO W/AUTO DIFF STAT 01/25/20 11:29 PM CDT from Last 3 Months Results * URINALYSIS (03/22/2025 10:20 PM HUMAN SERVICES CASE MANAGER) SPECIMEN TYPE URINE CLEAN CATCH 03/22/2025 10:24 PM HUMAN SERVICES CASE MANAGER [facility] COLOR (U) LIGHT YELLOW 03/22/2025 10:33 PM HUMAN SERVICES CASE MANAGER [facility] TRANSPARENCY CLEAR 03/22/2025 10:33 PM HUMAN SERVICES CASE MANAGER [facility] SPECIFIC GRAVITY (U) 1.019 1.001 - 1.030 03/22/2025 10:33 PM [facility] U PH 7.0 5.0 - 9.0 03/22/2025 10:33 PM HUMAN SERVICES CASE MANAGER [facility] LEUKOCYTES (U) NEGATIVE NEGATIVE 03/22/2025 10:33 PM [facility] NITRITES NEGATIVE NEGATIVE 03/22/2025 10:33 PM [facility] PROTEIN RANDOM (U) NEGATIVE <30 MG/DL 03/22/2025 10:33 PM [facility] GLUCOSE (U) NORMAL NORMAL MG/DL 03/22/2025 10:33 PM HUMAN SERVICES CASE MANAGER [facility] KETONES MG/DL (U) NEGATIVE NEGATIVE MG/DL 03/22/2025 10:33 PM HUMAN SERVICES CASE MANAGER [facility] UROBILINOGEN NORMAL NORMAL MG/DL 03/22/2025 10:33 PM HUMAN SERVICES CASE MANAGER [facility] BILIRUBIN (U) NEGATIVE NEGATIVE MG/DL 03/22/2025 10:33 PM HUMAN SERVICES CASE MANAGER [facility] BLOOD (U) NEGATIVE NEGATIVE 03/22/2025 10:33 PM HUMAN SERVICES CASE MANAGER [facility] URINE URINE SPECIMEN OBTAINED BY CLEAN CATCH PROCEDURE / Unknown 03/22/2025 10:20 PM HUMAN SERVICES CASE MANAGER Abby WEATHERS URINE ORDERABLES Final Result Performing Organization Address City/[facility]/ZIP Co de Phone Number [facility] [address] [place] [id number], [place] [phone] * (ABNORMAL) MAGNESIUM (03/22/2025 8:30 PM HUMAN SERVICES CASE MANAGER) Only the most recent of2 resultswithin the time period is included. [facility] MAGNESIUM 1.6(L) 1.8 - 2.4 MG/DL 03/22/2025 9:21 PM HUMAN SERVICES CASE MANAGER [facility] BLOOD VENOUS BLOOD SPECIMEN / Unknown 03/22/2025 8:30 PM HUMAN SERVICES CASE MANAGER Abby WEATHERS LABORATORY Final Result Performing Organization Address City/[facility]/ZIP Co de Phone Number [address] [address], [place] [phone] * CULTURE, BACTERIA, BLOOD (03/22/2025 8:30 PM HUMAN SERVICES CASE MANAGER) Only the most recent of3 resultswithin the time period is included. Pathologist [facility] SPEC DESCRIPTION BLOOD-VENOU S 03/22/2025 6:55 PM HUMAN SERVICES CASE MANAGER [facility] SPECIAL REQUESTS NO SPECIAL REQUEST 03/22/2025 6:55 PM HUMAN SERVICES CASE MANAGER [facility] CULTURE RESULT NO GROWTH 5 DAYS 03/27/2025 10:13 PM HUMAN SERVICES CASE MANAGER [facility] BLOOD VENOUS BLOOD SPECIMEN / Unknown 03/22/2025 8:30 PM HUMAN SERVICES CASE MANAGER 03/22/2025 8:42 PM HUMAN SERVICES CASE MANAGER us Abby WEATHERS MICROBIOLOGY - GENERAL ORDERAB LES Final Result [facility] [address] [place] [address], [place] [phone] * (ABNORMAL) COMPREHENSIVE METABOLIC PANEL (03/22/2025 8:30 PM HUMAN SERVICES CASE MANAGER) Only the most recent of2 resultswithin the time period is included. Pathologist [facility] GLUCOSE 92 70 - 99 MG/DL 03/22/2025 9:21 PM [facility] BUN 14 7 - 18 MG/DL 03/22/2025 9:21 PM [facility] CREATININE S/P/B 0.62 0.55 - 1.02 MG/DL 03/22/2025 9:21 PM [facility] SODIUM S/P/B 142 136 - 145 MMOL/L 03/22/2025 9:21 PM [facility] POTASSIUM S/P/B 3.6 3.5 - 5.1 MMOL/L 03/22/2025 9:21 PM [facility] CHLORIDE S/P/B 105 97 - 115 MMOL/L 03/22/2025 9:21 PM [facility] CO2 29.1 21 - 32 MMOL/L 03/22/2025 9:21 PM [facility] CALCIUM S/P/B 8.6 8.5 - 10.1 MG/DL 03/22/2025 9:21 PM [facility] BILIRUBIN TOTAL S/P/B 0.2 0.2 - 1.2 MG/DL 03/22/2025 9:21 PM [facility] Comment: THIS ASSAY IS NOT RECOMMENDED FOR PATIENTS UNDERGOING TREATMENT WITH ELTROMBOPAG DUE TO THE POTENTIAL FOR FALSELY ELEVATED RESULTS. TOTAL PROTEIN S/P/B 6.1(L) 6.4 - 8.2 G/DL 03/22/2025 9:21 PM [facility] ALBUMIN S/P/B 3.5 3.4 - 5.0 G/DL 03/22/2025 9:21 PM [facility] AST 13(L) 15 - 37 U/L 03/22/2025 9:21 PM [facility] ALT 24 14 - 55 U/L 03/22/2025 9:21 PM [facility] ALKALINE PHOSPHATASE S/P/B 109 50 - 136 U/L 03/22/2025 9:21 PM [facility] ANION GAP 7.9 2 - 10 MMOL/L 03/22/2025 9:21 PM [facility] BUN CREATININE RATIO 22.4 6 - 26 03/22/2025 9:21 PM [facility] A/G RATIO 1.3 1.0 - 2.0 RATIO 03/22/2025 9:21 PM [facility] GFR ESTIMATE >90 >90 ML/MIN/1.7 3 M2 03/22/2025 9:21 PM [facility] Comment: NOTE: eGFR is not calculated for patients <18 years of age or gender unknown. This is an estimated GFR calculation using the new CKD EPI creatinine equation without race and so does not require a correction factor for race. This estimated GFR should not be used for calculating drug doses. BLOOD VENOUS BLOOD SPECIMEN / Unknown 03/22/2025 8:30 PM HUMAN SERVICES CASE MANAGER Abby WEATHERS LABORATORY Final Result [facility] [address] [place] [address], * (ABNORMAL) CBC W/DIFF AUTOMATED (03/22/2025 8:30 PM HUMAN SERVICES CASE MANAGER) Only the most recent of2 resultswithin the time period is included. WBC 10.05 4.5 - 11.0 x10'3/uL 03/22/2025 9:06 PM [facility] RBC 2.45(L) 4.20 - 5.40 x10'6/uL 03/22/2025 9:06 PM [facility] HGB 7.5(L) 12.0 - 16.0 G/DL 03/22/2025 9:06 PM HUMAN SERVICES CASE MANAGER [facility] HCT 23.4(L) 38.0 - 48.0 % 03/22/2025 9:06 PM [facility] MCV 95.5 81.0 - 99.0 FL 03/22/2025 9:06 PM [facility] MCH 30.6 27.0 - 31.0 PG 03/22/2025 9:06 PM HUMAN SERVICES CASE MANAGER [facility] MCHC 32.1 32.0 - 36.0 G/DL 03/22/2025 9:06 PM [facility] RDW 16.9(H) 11.5 - 14.5 % 03/22/2025 9:06 PM [facility] PLT 120(L) 130 - 400 x10'3/uL 03/22/2025 9:06 PM HUMAN SERVICES CASE MANAGER [facility] MPV 10.7 9.3 - 12.2 FL 03/22/2025 9:06 PM HUMAN SERVICES CASE MANAGER [facility] DIFFERENTIAL TYPE MANUAL DIFFERENTIAL 03/22/2025 9:35 PM HUMAN SERVICES CASE MANAGER [facility] SEG NEUTROPHILS 19 % 9:35 PM HUMAN SERVICES CASE MANAGER [facility] LYMPHOCYTES 81 % 03/22/2025 9:35 PM HUMAN SERVICES CASE MANAGER [facility] ABS. NEUTROPHILS 1.91 1.80 - 7.70 x10'3/uL 03/22/2025 9:35 PM HUMAN SERVICES CASE MANAGER [facility] ABS. LYMPHOCYTES 8.14(H) 1.00 - 4.80 x10'3/uL 03/22/2025 9:35 PM HUMAN SERVICES CASE MANAGER [facility] RBC MORPHOLOGY RBC MORPHOLOGY APPEARS NORMAL. SLIDE REVIEWED. 03/22/2025 9:35 PM [facility] PLT EST. ADEQUATE 03/22/2025 9:35 PM [facility] BLOOD VENOUS BLOOD SPECIMEN / Unknown 03/22/2025 8:30 PM HUMAN SERVICES CASE MANAGER Abby WEATHERS LABORATORY Final Result [facility] [address] [place] [address], * (ABNORMAL) LACTIC ACID W REFLEX (SEPSIS) (03/22/2025 8:30 PM HUMAN SERVICES CASE MANAGER) Only the most recent of4 resultswithin the time period is included. LACTIC ACID VENOUS 2.1(H) 0.4 - 2.0 MMOL/L 03/22/2025 9:23 PM HUMAN SERVICES CASE MANAGER [facility] Comment: Critical Result(s) Called at: 21:22:26 on 03/22/2025 by: AC MAGIDSON to and read back by:TERESA SHANNON BLOOD VENOUS BLOOD SPECIMEN / Unknown 03/22/2025 8:30 PM HUMAN SERVICES CASE MANAGER Abby WEATHERS LABORATORY Final Result Performing Organization Address [facility]/ZIP Co de Phone Number [facility] [address] [place] [phone], * RESPIRATORY PCR PNL LIMITED (FLU A/FLU B/RSV/COVID) (03/21/2025 8:24 PM HUMAN SERVICES CASE MANAGER) SPEC DESCRIPTION NASOPHARYNGEAL SWAB 03/21/2025 8:24 PM HUMAN SERVICES CASE MANAGER [facility] CORONAVIRUS SARS COV 2 PCR (RESP) NEGATIVE NEGATIVE 03/21/2025 9:21 PM HUMAN SERVICES CASE MANAGER [facility] INFLUENZA A PCR (RESP) NEGATIVE NEGATIVE 03/21/2025 9:21 PM HUMAN SERVICES CASE MANAGER [facility] INFLUENZA B PCR (RESP) NEGATIVE NEGATIVE 03/21/2025 9:21 PM HUMAN SERVICES CASE MANAGER [facility] RSV PCR (RESP) NEGATIVE NEGATIVE 03/21/2025 9:21 PM HUMAN SERVICES CASE MANAGER [facility] SWAB NASOPHARYNGEAL STRUCTURE / Unknown 03/21/2025 8:24 PM HUMAN SERVICES CASE MANAGER Clyde Raygoza MD MICROBIOLOGY - GENERAL ORDERABL ES Final Result Performing Organization Address City/[facility]/ZIP Co de Phone Number [facility] [address] [place] [phone], [place] [phone] * CT CHEST+ABD+PEL W CON (03/21/2025 7:21 PM HUMAN SERVICES CASE MANAGER) Anatomical Region Laterality Modality Chest, Abdomen, Pelvis Computed Tomography 03/21/2025 7:24 PM HUMAN SERVICES CASE MANAGER Impressions 03/21/2025 7:42 PM HUMAN SERVICES CASE MANAGER IMPRESSION: 1. Innumerable enlarged lymph nodes in [...] 03/21/2025 7:24 PM Narrative 03/21/2025 7:42 PM HUMAN SERVICES CASE MANAGER [address] [address] Examination: CT CHEST+ABD+PEL W CON Exam time: [...] Procedure Note Silvino Mackenzie MD - 03/21/[address] [address] Examination: CT CHEST+ABD+PEL W CON Exam time: [...] Result * POCT URINE (03/21/2025 6:50 PM HUMAN SERVICES CASE MANAGER) URINE HCG TEST NEGATIVE NEGATIVE Internal Control: VALID VALID URINE URINE SPECIMEN OBTAINED BY CLEAN CATCH PROCEDURE / Unknown 03/21/2025 6:50 PM HUMAN SERVICES CASE MANAGER Clyde Raygoza MD POINT OF CARE TEST ORDERABLES F inal Result * ECG 12 lead (03/21/2025 6:06 PM HUMAN SERVICES CASE MANAGER) ECG QT 363 [facility] ECG QTC 431 [facility] 03/21/2025 6:06 PM HUMAN SERVICES CASE MANAGER Narrative [facility] - 03/22/2025 9:34 AM HUMAN SERVICES CASE MANAGER [facility] [address] [place] [address] Test Date: 2025-03-21 Pat Name: SOHA MARRERO Department: 41 Room: [place] [address] Gender: Female Requisition Approver: Koko : 1990 Requested By: CLYDE RAYGOZA Order Number: [id number] Reading MD: Nubia Abebe Measurements Intervals [place] Rate: 84 P: 58 MS: 122 QRS: 35 QRSD: 92 T: 31 QT: 363 QTc: 431 Interpretive Statements SINUS RHYTHM POSSIBLE LEFT ATRIAL ENLARGEMENT [-0.1mV P-WAVE IN V1/V2] LOW QRS VOLTAGE IN PRECORDIAL LEADS [QRS DEFLECTION < 1.0 mV IN CHEST LEADS] RSR' pattern N SERVICES CASE MANAGER Procedure Note Nubia Abeeb MD - 03/22/2025 [facility] [address] [place] [address] Test Date: 2025-03-21 Pat Name: SOHA MARRERO Department: 41 Room: [place] [address] Gender: Female Requisition Approver: Koko : 1990 Requested By: CLYDE RAYGOZA Order Number: [id number] Reading MD: Nubia Abebe Measurements Intervals [place] Rate: 84 P: 58 MS: 122 QRS: 35 QRSD: 92 T: 31 QT: 363 QTc: 431 Interpretive Statements SINUS RHYTHM POSSIBLE LEFT ATRIAL ENLARGEMENT [-0.1mV P-WAVE IN V1/V2] LOW QRS VOLTAGE IN PRECORDIAL LEADS [QRS DEFLECTION < 1.0 mV IN CHESTLEADS] RSR' pattern N SERVICES CASE MANAGER Clyde Raygoza MD ECG ORDERABLES Final Result [facility] * PROTIME/INR, VENOUS (03/21/2025 6:03 PM HUMAN SERVICES CASE MANAGER) PROTIME 11.9 10.2 - 12.9 SEC 03/21/2025 6:40 PM HUMAN SERVICES CASE MANAGER [facility] INR 1.0 03/21/2025 6:40 PM HUMAN SERVICES CASE MANAGER [facility] Comment: Recommended INR Therapeutic Goals: 2.0-3.0 Routine Therapy 2.5-3.5 Mechanical Prosthetic Valves (High Risk) BLOOD VENOUS BLOOD SPECIMEN / Unknown 03/21/2025 6:03 PM HUMAN SERVICES CASE MANAGER us Clyde Raygoza MD LABORATORY Final Result [facility] [address] [place] [address], [place] [phone] * PARTIAL THROMBOPLASTIN TIME,PTT (03/21/2025 6:03 PM HUMAN SERVICES CASE MANAGER) PTT 25.1 25.1 - 36.5 SEC 03/21/2025 6:40 PM HUMAN SERVICES CASE MANAGER [facility] BLOOD VENOUS BLOOD SPECIMEN / Unknown 03/21/2025 6:03 PM HUMAN SERVICES CASE MANAGER us Clyde Raygoza MD LABORATORY Final Result [facility] [address] [place] [address], [place] [phone] * LIPASE (03/21/2025 6:03 PM HUMAN SERVICES CASE MANAGER) LIPASE 13 13 - 75 UNITS/L 03/21/2025 6:47 PM HUMAN SERVICES CASE MANAGER [facility] BLOOD VENOUS BLOOD SPECIMEN / Unknown 03/21/2025 6:03 PM HUMAN SERVICES CASE MANAGER us Clyde Raygoza MD LABORATORY Final Result Performing Organization Address City/[facility]/ZIP Co de Phone Number [facility] [address] [place] [address], [place] [phone] * CK (CPK) (03/21/2025 6:03 PM HUMAN SERVICES CASE MANAGER) CPK 34 21 - 215 U/L 03/21/2025 6:47 PM HUMAN SERVICES CASE MANAGER [facility] BLOOD VENOUS BLOOD SPECIMEN / Unknown 03/21/2025 6:03 PM HUMAN SERVICES CASE MANAGER us Clyde Raygoza MD LABORATORY Final Result [facility] [address] [place] [address], [place] [phone] * BASIC METABOLIC PANEL (02/09/2025 5:42 PM HUMAN SERVICES CASE MANAGER) GLUCOSE 86 70 - 99 MG/DL 02/09/2025 6:19 PM HUMAN SERVICES CASE MANAGER [facility] BUN 11 7 - 18 MG/DL 02/09/2025 6:19 PM [facility] CREATININE S/P/B 0.72 0.55 - 1.02 MG/DL 02/09/2025 6:19 PM [facility] SODIUM S/P/B 140 136 - 145 MMOL/L 02/09/2025 6:19 PM [facility] POTASSIUM S/P/B 3.6 3.5 - 5.1 MMOL/L 02/09/2025 6:19 PM [facility] CHLORIDE S/P/B 104 97 - 115 MMOL/L 02/09/2025 6:19 PM [facility] CO2 31.1 21 - 32 MMOL/L 02/09/2025 6:19 PM [facility] CALCIUM S/P/B 9.1 8.5 - 10.1 MG/DL 02/09/2025 6:19 PM [facility] ANION GAP 4.9 2 - 10 MMOL/L 02/09/2025 6:19 PM [facility] BUN CREATININE RATIO 15.3 6 - 26 02/09/2025 6:19 PM [facility] GFR ESTIMATE >90 >90 ML/MIN/1.7 3 M2 02/09/2025 6:19 PM [facility] Comment: NOTE: eGFR is not calculated for patients <18 years of age or gender unknown. This is an estimated GFR calculation using the new CKD EPI creatinine equation without race and so does not require a correction factor for race. This estimated GFR should not be used for calculating drug doses. 02/09/2025 5:42 PM HUMAN SERVICES CASE MANAGER us Ronit Haque INSPECTOR WREATH LABORATORY Final Resul t [facility] [address] [place] [address], [place] [phone] * (ABNORMAL) CBC W/DIFF AUTOMATED (02/09/2025 5:42 PM HUMAN SERVICES CASE MANAGER) Only the most recent of2 resultswithin the time period is included. WBC 17.24(H) 4.5 - 11.0 x10'3/uL 02/09/2025 5:57 PM HUMAN SERVICES CASE MANAGER [facility] RBC 2.90(L) 4.20 - 5.40 x10'6/uL 02/09/2025 5:57 PM HUMAN SERVICES CASE MANAGER [facility] HGB 8.5(L) 12.0 - 16.0 G/DL 02/09/2025 5:57 PM [facility] HCT 27.1(L) 38.0 - 48.0 % 02/09/2025 5:57 PM HUMAN SERVICES CASE MANAGER [facility] MCV 93.4 81.0 - 99.0 FL 02/09/2025 5:57 PM HUMAN SERVICES CASE MANAGER [facility] MCH 29.3 27.0 - 31.0 PG 02/09/2025 5:57 PM HUMAN SERVICES CASE MANAGER [facility] MCHC 31.4(L) 32.0 - 36.0 G/DL 02/09/2025 5:57 PM [facility] RDW 17.9(H) 11.5 - 14.5 % 02/09/2025 5:57 PM HUMAN SERVICES CASE MANAGER [facility] PLT 142 130 - 400 x10'3/uL 02/09/2025 5:57 PM [facility] MPV 9.9 9.3 - 12.2 FL 02/09/2025 5:57 PM [facility] DIFFERENTIAL TYPE MANUAL DIFFERENTIAL 02/09/2025 6:25 PM HUMAN SERVICES CASE MANAGER [facility] SEG NEUTROPHILS 10 % 6:25 PM [facility] LYMPHOCYTES 89 % 02/09/2025 6:25 PM HUMAN SERVICES CASE MANAGER [facility] MYELOCYTES 1 % 02/09/2025 6:25 PM HUMAN SERVICES CASE MANAGER [facility] ABS. NEUTROPHILS 1.72(L) 1.80 - 7.70 x10'3/uL 02/09/2025 6:25 PM HUMAN SERVICES CASE MANAGER [facility] ABS. LYMPHOCYTES 15.34(H) 1.00 - 4.80 x10'3/uL 02/09/2025 6:25 PM HUMAN SERVICES CASE MANAGER [facility] ABS. MYELOCYTES 0.17(H) 0.00 x10'3/uL 02/09/2025 6:25 PM [facility] RBC MORPHOLOGY RBC MORPHOLOGY APPEARS NORMAL. SLIDE REVIEWED. 02/09/2025 6:25 PM HUMAN SERVICES CASE MANAGER [facility] PLT EST. ADEQUATE 02/09/2025 6:25 PM [facility] 02/09/2025 5:42 PM HUMAN SERVICES CASE MANAGER Ronit Haque [facility] Final Resul t [facility] [address] [place] [id number], * Pathology (01/25/2025 12:00 AM CDT) PATHOLOGY [facility] Department of Laboratory Medicine [address] [place] [address] , extension [phone] Pathology Report Addendum Peripheral Smear Report Name: SOHA MARRERO Specimen #: [id number] Age: 11 1990 (Age: 34) Location: [facility] Sex: F Procedure Date: 01/25/2025 [facility] #: [id number] Date Received: 01/25/2025 Date Reported: Provider: KOKO [...] and she is currently being followed at [facility] for follicular lymphoma. There is no morphologic [...] case was interpreted and signed out at [facility], [address] [place] [address]. Addenda/Procedures Addendum Date Ordered: 01/29/2025 Status: Signed Out Date Complete: 01/29/2025 By: LISY CALLEJAS Date Reported: 01/29/2025 Addendum Diagnosis Peripheral blood, smear review: -Circulating follicular lymphoma cells; see comment Addendum Comment This addendum is created to report on the flow cytometry results performed on the peripheral blood. Flow cytometry ([id number]) demonstrates a kappa-restricted CD10 positive B-cell lymphoproliferative disorder with an immunophenotype compatible with the patient's history of follicular lymphoma. The overall morphologic/immunoph enotypic findings support circulating follicular lymphoma cells. This addendum was interpreted and signed out at [place] [id number]. [facility] 01/25/2025 01/25/2025 9:4 7 AM CDT Comment:Peripheral blood us Koko Johnson MD,PHD PATHOLOGY/CYTOLOGY ORDERAB LES Final Result [facility] [address] [place] [address], [id number] * Flow Cytometry (01/24/2025 11:29 PM CDT) FLOW CYTOMETRY RESULTS [facility] Department of Laboratory Medicine [address] [place] [address] , extension [phone] Pathology Report Flow Cytometry Report Name: SOHA MARRERO Specimen #: [id number] Age: 11 1990 (Age: 34) [place] [facility] [place]: F Procedure Date: 01/24/2025 [facility] #: [id number] Date Received: 01/25/2025 Date Reported: 01/29/2025 Provider: KOKO JOHNSON MD PHD Source: Peripheral blood (See report [id number]) FINAL DIAGNOSIS: Peripheral blood, smear review: -[place]-restricted CD10 positive B-cell lymphoproliferative disorder; see comment Diagnosis Comment: 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 Correlation with [id number] is recommended. Result: The sample is adequate with a viability of 98%. The B cells represent 77.8% of the lymphocytes, (89% of the total events analyzed) and coexpress CD19 dim, CD20 dim, CD10, and CD23 dim and are essentially negative for CD5 and CD200. Surface immunoglobulin light chains shows a [place]:Lambda ratio of >997.0 (99.7:<0.1). The T-cells represent 11% of lymphocytes (9.8% of total cellularity) with a CD4:CD8 ratio of 1.7. Tested: CD45, CD19, CD20, Surface [place], Surface Lambda, CD5, CD10, CD38, CD34, CD14, CD117, CD4, CD8, CD3, CD7, CD56. This case was interpreted and signed out at [facility], [address] [place] [address], [facility] [id number]. Electronically Signed Out LISY COTE MD This test was developed and its performance characteristics determined by [facility]. It has not been cleared or approved by the U.S. Food and Drug Administration. However, the use of Analyte Specific Reagents does not require FDA approval. [facility] 01/24/2025 11:2 9 PM CDT 01/25/2025 12:10 PM CDT Comment:Peripheral blood (Se e report [id number]) us Koko Johnson MD,PHD PATHOLOGY/CYTOLOGY ORDERAB LES Final Result [facility] [address] [place] [address], [place] [phone] [id number] * COMPREHENSIVE METABOLIC PANEL (01/24/2025 11:29 PM CDT) GLUCOSE 88 70 - 99 MG/DL 01/25/2025 12:20 AM CDT [facility] BUN 17 7 - 18 MG/DL 01/25/2025 12:20 AM CDT [facility] CREATININE S/P/B 0.87 0.55 - 1.02 MG/DL 01/25/2025 12:20 AM CDT [facility] SODIUM S/P/B 138 136 - 145 MMOL/L 01/25/2025 12:20 AM CDT [facility] POTASSIUM S/P/B 4.1 3.5 - 5.1 MMOL/L 01/25/2025 12:20 AM CDT [facility] CHLORIDE S/P/B 101 97 - 115 MMOL/L 01/25/2025 12:20 AM CDT [facility] CO2 31.4 21 - 32 MMOL/L 01/25/2025 12:20 AM CDT [facility] CALCIUM S/P/B 9.1 8.5 - 10.1 MG/DL 01/25/2025 12:20 AM CDT [facility] BILIRUBIN TOTAL S/P/B 0.4 0.2 - 1.2 MG/DL 01/25/2025 12:20 AM T [facility] Comment: THIS ASSAY IS NOT RECOMMENDED FOR PATIENTS UNDERGOING TREATMENT WITH ELTROMBOPAG DUE TO THE POTENTIAL FOR FALSELY ELEVATED RESULTS. TOTAL PROTEIN S/P/B 6.4 6.4 - 8.2 G/DL 01/25/2025 12:20 AM T [facility] ALBUMIN S/P/B 3.5 3.4 - 5.0 G/DL 01/25/2025 12:20 AM T [facility] AST 22 15 - 37 U/L 01/25/2025 12:20 AM [facility] ALT 26 14 - 55 U/L 01/25/2025 12:20 AM T [facility] ALKALINE PHOSPHATASE S/P/B 119 50 - 136 U/L 01/25/2025 12:20 AM [facility] ANION GAP 5.6 2 - 10 MMOL/L 01/25/2025 12:20 AM [facility] BUN CREATININE RATIO 19.5 6 - 26 01/25/2025 12:20 AM [facility] A/G RATIO 1.2 1.0 - 2.0 RATIO 01/25/2025 12:20 AM [facility] GFR ESTIMATE >90 >90 ML/MIN/1.7 3 M2 01/25/2025 12:20 AM [facility] Comment: NOTE: eGFR is not [...] Koko Johnson MD,PHD LABORATORY Final Resu lt [facility] [address] [place] [address], [place] [phone] * Qualitative HCG (01/24/2025 11:29 PM CDT) PREG SCREEN-SERUM NEGATIVE 01/25/2025 12:11 AM CDT [facility] 01/24/2025 11:2 9 PM CDT Koko Johnson MD,PHD LABORATORY Final Resu lt Performing Organization Address City/[facility]/ZIP Co de Phone Number [facility] [address] [place] [address], [place] [phone] from Last 3 Months Insurance [employer] Advance Directives Documents on File Type Date Recorded Patient Barrel Centerer Expl anation Legal Documents 05/21/2023 3:56 PM Care Teams Collections Clerk Relationship Specialty Start Date End Date None, Provider, MD PCP - General UNKNOWN PHYSICIAN SPECIALTY 11/19/22
--- OUTSIDE RECORDS SUMMARY | 2025-03-28 10:34 | XMS_ITS | Clinical Summary ---
Author Organization [facility] Address [address] [place] [address] Care Team Providers Care Loin Puller Name Role Phone Unavailable Primary Care Provider Unavailabl e Source Comments [facility] [employer],non-owned Affiliates and Associated Physician Practices is amultiple site organization consisting of ambulatory clinics and hospital sitesin [place], [place], [place] and [place]. This disclosure is being madepursuant to the Care Everywhere program and may not contain all information available regarding this patient. Last updated 17.[facility] [employer] Social History Tobacco Use Types Packs/Day Years [...] this topic Insurance [facility] SELF PAY NO INSURANCE Member Subscriber Plan / Payer (Ef fective for All Dates) Name:Soha Javier Member ID:Not on file Relation to Subscriber:Not on file Name:SOHA JAVIER Subscriber ID:Not on file (Home) Address: [address] [place] [address] Payer ID:Not on file Group ID:Not on file Type:Self Pay Address: [place], [place] [facility]
--- OUTSIDE RECORDS SUMMARY | 2025-03-28 10:34 | XMS_ITS | Encounter Summary ---
Author Organization [facility] Address [address] [place] [address] Care Team Providers Care 4Th Grade Math Teacher Name Role Phone None, Provider Primary Care Provider Unavaila ble Encounter Details Date Type Department Care Team (Late st Contact Info) Description 03/24/2025 Results Follow-Up 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
--- OUTSIDE RECORDS SUMMARY | 2025-03-28 10:34 | XMS_ITS | Encounter Summary ---
Author Organization [facility] Address [address] [place] [address] Care Team Providers Care Underwear Trimmer Name Role Phone Unavailable Primary Care Provider Unavailabl e Encounter Details Date Type Department Care Team (Late st Contact Info) Description 12/18/2022 Lab Requisition [facility] - Pathology Lab [address] [place] [address] Ishan Escobedo MD [address] [place] [phone] Generalized enlarged lymph nodes Social History [...] AM CDT) Case Report Flow Cytometry Case: [id number] Authorizing Provider: Ishan Escobedo MD Collected: 12/18/2022 09:00 AM Ordering Location: [facility] Pathology Lab Received: 12/18/2022 03:11 PM Pathologist: Giovanni Chow MD Specimen: Axillary Lymph Node, RIGHT 12/18/2022 5:15 PM CDT [facility] Final Diagnosis Axillary lymph node, flow cytometry: - [place] light chain restricted CD10+ B-cell population detected (~99% of overall events) 12/18/2022 5:15 PM CDT [facility] at 1714 CDT Flow Cytometry Interpretation Viability: 87%. B-cells: monoclonal, kappa-restricted, expressing CD19, CD20, and CD10. T-cells: not increased, no immunophenotypic aberrancy. A cytospin prepared from the flow cytometry specimen has been reviewed for cloth tester quality purposes. 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 Histologic slides are pending for final subclassification. 12/18/2022 5:15 PM [facility] Flow Cytometry Results Differential Result Comment Flow Cell Count /uL 9,000 Total Viability % 87.0 Lymphocytes % 99 Dim CD45 Region % 0 Monocytes % 0 Granulocytes % 1 12/18/2022 5:15 PM [facility] Reason for test Generalized enlarged lymph nodes 785.6 12/18/2022 5:15 PM [facility] Client Specimen ID # [id number] 12/18/2022 5:15 PM [facility] Number of markers 16 were performed. A-2 Flow CD3 A-4 Flow CD10 A-6 Flow CD20 A-7 Flow CD23 A-12 Flow CD2 A-13 Flow CD4 A-16 Flow CD1a A-3 Flow CD5 A-5 Flow CD19 A-8 Flow CD34 A-9 Flow CD45 A-14 Flow CD7 A-15 Flow CD8 A-17 Flow CD30 A-10 [place]+CD19+ A-11 Lambda+CD19+ 12/18/2022 5:15 PM [facility] Pathologist Location at [facility] 12/18/2022 5:15 PM [facility] Disclaimer Test performed at [facility], [address] [place] [address], [id number]. *The established laboratory minimum viability is 70%. [...] PATHOLOGY LAB Embedded Images 5:15 PM CDT [facility] Pathology/Cytolo gy AXILLARY LYMPH NODE STRUCTURE / Unknown 12/18/2022 9:00 AM CDT 12/18/2022 3:11 PM CDT us Ishan Escobedo MD LAB - PATHOLOGY/CYTOLOGY ORDERAB LES Final Result [facility] [address] [phone] documented in this encounter Visit Diagnoses Diagnosis Generalized enlarged lymph nodes Enlargement of lymph nodes documented in this encounter
--- OUTSIDE RECORDS SUMMARY | 2025-03-28 10:34 | XMS_ITS | Clinical Summary ---
Author Organization [facility] Address [address] [facility] [place] [address] Care Team Providers Care Culinary Internship Name Role Phone Unavailable Primary Care Provider [...] Pain, Mild. 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 Pulse 111 04/17/2023 8:40 AM INSURANCE SALES MANAGER Temperature 36.6 C (97.9 F) 04/17/2023 8:40 AM INSURANCE SALES MANAGER Respiratory Rate 10 04/17/2023 8:40 AM INSURANCE SALES MANAGER Oxygen Saturation 92% 03/27/2023 11:06 AM INSURANCE SALES MANAGER Inhaled Oxygen Concentration - - Weight 51.3 kg (113 lb) 04/17/2023 8:40 AM INSURANCE SALES MANAGER Height 162.6 cm (5' 4) 03/24/2023 6:27 PM INSURANCE SALES MANAGER Body Mass Index 19.4 03/24/2023 6:27 PM INSURANCE SALES MANAGER Plan of Treatment Health Maintenance Due [...] [place] [facility] [employer] Advance Directives For more information, please contact: [phone] * Full Code (Latest Code Status on File) Date Activated Date Inactivated Comments 03/25/2023 1:09 AM 03/26/2023 3:29 PM
--- OUTSIDE RECORDS SUMMARY | 2025-03-28 10:34 | XMS_ITS | Clinical Summary ---
Author Organization [place] [id number] Address [address] [place] [address] Care Team Providers Care Assemblies And Installations Inspector Name Role Phone Ramy Aguilera MD Unavailable [phone] Satya Fernandez MD Primary Care Provider [phone] Allergies Active Allergy Reactions Criticality Noted Date [...] - Plan to discharge patient with outpatient [facility] follow-up on 09/30/24. Assessment & Plan (09/23/2024 [...] - Plan to discharge patient with outpatient [facility] follow-up on 09/30/24. Assessment & Plan (09/23/2024 [...] Department Care Team Description 03/24/2025 10:46 PM PROGRAM SPECIALIST - 03/24/2025 10:51 PM PROGRAM SPECIALIST Emergency [facility] Emergency Department [address] [place] [address] Discharge Disposition: Left without being seen 03/17/2025 2:00 PM PROGRAM SPECIALIST Clinical Support [facility] Medical Office Building 2 Radiation Oncology [address] [place] [address] Follicular lymphoma, unspecified follicular lymphoma type, unspecified body region (HCC) (Primary Dx) 03/17/2025 12:30 PM PROGRAM SPECIALIST Infusion [address] [phone] Follicular lymphoma, unspecified follicular lymphoma type, unspecified body region (HCC) (Primary Dx); Prevention of chemotherapy-induced neutropenia 03/17/2025 12:00 PM PROGRAM SPECIALIST Office Visit [facility] [address] [place] [phone] Ramy Aguilera MD Prevention of chemotherapy-induced neutropenia (Primary Dx); Follicular lymphoma, unspecified follicular lymphoma type, unspecified body region (HCC) 03/17/2025 11:30 AM PROGRAM SPECIALIST Lab [address] [address] Follicular lymphoma, unspecified follicular lymphoma type, unspecified body region (HCC); Prevention of chemotherapy-induced neutropenia 03/16/2025 Orders Only [facility] Oncology [address] [place] [phone] Ramy Aguilera MD Follicular lymphoma, unspecified follicular lymphoma type, unspecified body region (HCC) (Primary Dx); Prevention of chemotherapy-induced neutropenia 03/08/2025 10:13 AM PROGRAM SPECIALIST - 03/08/2025 11:59 PM PROGRAM SPECIALIST Hospital Encounter [facility] OP Cardiac Testing [address] [place] [address] Follicular lymphoma, unspecified follicular lymphoma type, unspecified body region (HCC); Encounter for long-term (current) use of medications Discharge Disposition: Discharge to home or self care 02/24/2025 12:30 PM PROGRAM SPECIALIST Clinical Support [facility] Medical Office Building 2 Radiation Oncology [address] [place] [address] Follicular lymphoma, unspecified follicular lymphoma type, unspecified body region (HCC) (Primary Dx) 02/24/2025 11:00 AM PROGRAM SPECIALIST Infusion [address] [phone] Follicular lymphoma, unspecified follicular lymphoma type, unspecified body region (HCC) (Primary Dx); Diffuse follicle center lymphoma, unspecified body region (HCC); Prevention of chemotherapy-induced neutropenia 02/24/2025 10:30 AM PROGRAM SPECIALIST Office Visit [facility] [address] [place] [phone] Ramy Aguilera MD Follicular lymphoma, unspecified follicular lymphoma type, unspecified body region (HCC) (Primary Dx); Prevention of chemotherapy-induced neutropenia; Diffuse follicle center lymphoma, unspecified body region (HCC) 02/24/2025 10:00 AM PROGRAM SPECIALIST Lab [address] [address] Diffuse follicle center lymphoma, unspecified body region (HCC); Follicular lymphoma, unspecified follicular lymphoma type, unspecified body region (HCC); Prevention of chemotherapy-induced neutropenia 02/23/2025 Orders Only [facility] On[facility] [address] [place] [phone] Ramy Aguilera MD Follicular lymphoma, unspecified follicular lymphoma type, unspecified body region (HCC) (Primary Dx); Prevention of chemotherapy-induced neutropenia 02/10/2025 11:00 AM PROGRAM SPECIALIST Infusion [facility] at [address] [phone] Follicular lymphoma, unspecified follicular lymphoma type, unspecified body region (HCC) (Primary Dx); Prevention of chemotherapy-induced neutropenia 02/10/2025 10:30 AM PROGRAM SPECIALIST Lab [facility] at [address] [address] Prevention of chemotherapy-induced neutropenia (Primary Dx); Follicular lymphoma, unspecified follicular lymphoma type, unspecified body region (HCC) 02/10/2025 Social Work [facility] Medicine Oncology [address] [place] [phone] Marycarmen Gray LCSW 02/03/2025 12:00 PM CDT Infusion [address] [phone] Follicular lymphoma, unspecified follicular lymphoma type, unspecified body region (HCC) (Primary Dx); Prevention of chemotherapy-induced neutropenia 02/03/2025 11:30 AM CDT Office Visit [facility] [address] [place] [phone] Ramy Aguilera MD Follicular lymphoma, unspecified follicular lymphoma type, unspecified body region (HCC) (Primary Dx); Prevention of chemotherapy-induced neutropenia 02/03/2025 11:00 AM CDT Lab [address] [address] Follicular lymphoma, unspecified follicular lymphoma type, unspecified body region (HCC); Prevention of chemotherapy-induced neutropenia 02/03/2025 Orders Only [facility] On[facility] [address] [place] [phone] Ramy Aguilera MD 01/18/2025 Social Work [facility] On[facility] [address] [place] [phone] Desirae Bates LCSW 01/13/2025 12:00 PM CDT Clinical Support [facility] Medical Office Building 2 Radiation Oncology [address] [place] [address] Follicular lymphoma, unspecified follicular lymphoma type, unspecified body region (HCC) (Primary Dx) 01/13/2025 10:30 AM CDT Infusion [address] [phone] Prevention of chemotherapy-induced neutropenia (Primary Dx); Follicular lymphoma, unspecified follicular lymphoma type, unspecified body region (HCC) 01/13/2025 10:00 AM CDT Office Visit [facility] Transplant [address] [place] [phone] Ramy Aguilera MD Follicular lymphoma, unspecified follicular lymphoma type, unspecified body region (HCC) (Primary Dx); Prevention of chemotherapy-induced neutropenia 01/13/2025 9:30 AM CDT Lab [address] [address] Follicular lymphoma, unspecified follicular lymphoma type, unspecified body region (HCC); Prevention of chemotherapy-induced neutropenia 01/12/2025 Orders Only [facility] Oncology [address] [place] [phone] Ramy Aguilera MD 12/30/2024 Orders Only [address] [phone] Paulina German RPh from Last 3 Months [...] Comments Blood Pressure 106/65 03/24/2025 3:40 PM PROGRAM SPECIALIST Pulse 123 03/24/2025 3:40 PM PROGRAM SPECIALIST Temperature 37.9 C (100.3 F) 03/24/2025 3:40 PM PROGRAM SPECIALIST Respiratory Rate 17 03/24/2025 3:40 PM PROGRAM SPECIALIST Oxygen Saturation 95% 03/24/2025 3:40 PM PROGRAM SPECIALIST Inhaled Oxygen Concentration - - Weight 49.9 kg (110 lb) 03/24/2025 3:40 PM PROGRAM SPECIALIST Height 160 cm (5' 3) 03/24/2025 3:40 PM PROGRAM SPECIALIST Body Mass Index 19.49 03/24/2025 3:40 PM PROGRAM SPECIALIST Plan of Treatment Health Maintenance Due [...] LATERAL 2 VIEWS ED 03/24/2025 5:22 PM PROGRAM SPECIALIST ECG 12-LEAD STAT 03/24/2025 4:05 PM PROGRAM SPECIALIST BLOOD SMEAR REVIEW Routine 03/17/2025 11 :40 AM PROGRAM SPECIALIST Follicular lymphoma, unspecified follicular lymphoma type, unspecified body region (HCC) Prevention of chemotherapy-induce d neutropenia EGFR STAT 03/17/2025 11:40 AM PROGRAM SPECIALIST Follicular lymphoma, unspecified follicular lymphoma type, unspecified body region (HCC) Prevention of chemotherapy-induce d neutropenia DIFFERENTIAL AUTO Routine 03/17/2025 11: 40 AM PROGRAM SPECIALIST Follicular lymphoma, unspecified follicular lymphoma type, unspecified body region (HCC) Prevention of chemotherapy-induce d neutropenia URIC ACID Routine 03/17/2025 11:40 AM PROGRAM SPECIALIST Follicular lymphoma, unspecified follicular lymphoma type, unspecified body region (HCC) LACTATE DEHYDROGENASE Routine 03/17/2025 11:40 AM PROGRAM SPECIALIST Follicular lymphoma, unspecified follicular lymphoma type, unspecified body region (HCC) CBC WITH AUTO DIFFERENTIAL Routine 03/17/2025 11:40 AM PROGRAM SPECIALIST Follicular lymphoma, unspecified follicular lymphoma type, unspecified body region (HCC) Prevention of chemotherapy-induce d neutropenia COMPREHENSIVE METABOLIC PANEL STAT 03/17/2025 11:40 AM PROGRAM SPECIALIST Follicular lymphoma, unspecified follicular lymphoma type, unspecified body region (HCC) Prevention of chemotherapy-induce d neutropenia HCG, BLOOD, QUANTITATIVE STAT 03/17/2025 11:40 AM PROGRAM SPECIALIST Follicular lymphoma, unspecified follicular lymphoma type, unspecified body region (HCC) Prevention of chemotherapy-induce d neutropenia TRANSTHORACIC ECHO (TTE) COMPLETE W DOPPLER/CF WO CONTRAST Routine 03/08/2025 11:14 AM PROGRAM SPECIALIST Follicular lymphoma, unspecified follicular lymphoma type, unspecified body region (HCC) Encounter for long-term (current) use of medications BLOOD SMEAR REVIEW Routine 02/24/2025 10 :12 AM PROGRAM SPECIALIST Follicular lymphoma, unspecified follicular lymphoma type, unspecified body region (HCC) Prevention of chemotherapy-induce d neutropenia EGFR STAT 02/24/2025 10:12 AM PROGRAM SPECIALIST Follicular lymphoma, unspecified follicular lymphoma type, unspecified body region (HCC) Prevention of chemotherapy-induce d neutropenia DIFFERENTIAL AUTO Routine 02/24/2025 10: 12 AM PROGRAM SPECIALIST Follicular lymphoma, unspecified follicular lymphoma type, unspecified body region (HCC) Prevention of chemotherapy-induce d neutropenia CBC WITH AUTO DIFFERENTIAL Routine 02/24/2025 10:12 AM PROGRAM SPECIALIST Follicular lymphoma, unspecified follicular lymphoma type, unspecified body region (HCC) Prevention of chemotherapy-induce d neutropenia COMPREHENSIVE METABOLIC PANEL STAT 02/24/2025 10:12 AM PROGRAM SPECIALIST Follicular lymphoma, unspecified follicular lymphoma type, unspecified body region (HCC) Prevention of chemotherapy-induce d neutropenia HCG, BLOOD, QUANTITATIVE STAT 02/24/2025 10:12 AM PROGRAM SPECIALIST Follicular lymphoma, unspecified follicular lymphoma type, unspecified body region (HCC) Prevention of chemotherapy-induce d neutropenia POCT GLUCOSE DEVICE Routine 2025 1 0:24 AM PROGRAM SPECIALIST BLOOD SMEAR REVIEW Routine 02/10/2025 10 :45 AM PROGRAM SPECIALIST Follicular lymphoma, unspecified follicular lymphoma type, unspecified body region (HCC) Prevention of chemotherapy-induce d neutropenia EGFR STAT 02/10/2025 10:45 AM PROGRAM SPECIALIST Follicular lymphoma, unspecified follicular lymphoma type, unspecified body region (HCC) Prevention of chemotherapy-induce d neutropenia DIFFERENTIAL AUTO Routine 02/10/2025 10: 45 AM PROGRAM SPECIALIST Follicular lymphoma, unspecified follicular lymphoma type, unspecified body region (HCC) Prevention of chemotherapy-induce d neutropenia CBC WITH AUTO DIFFERENTIAL Routine 02/10/2025 10:45 AM PROGRAM SPECIALIST Follicular lymphoma, unspecified follicular lymphoma type, unspecified body region (HCC) Prevention of chemotherapy-induce d neutropenia COMPREHENSIVE METABOLIC PANEL STAT 02/10/2025 10:45 AM PROGRAM SPECIALIST Follicular lymphoma, unspecified follicular lymphoma type, unspecified body region (HCC) Prevention of chemotherapy-induce d neutropenia HCG, BLOOD, QUANTITATIVE STAT 02/10/2025 10:45 AM PROGRAM SPECIALIST Follicular lymphoma, unspecified follicular lymphoma type, unspecified [...] hemodynamically stable and ambulatory) (03/24/2025 5:22 PM PROGRAM SPECIALIST) Anatomical Region Laterality Modality Body, Chest N/A Computed Radiogr aphy 03/24/2025 6:00 PM PROGRAM SPECIALIST Impressions 03/24/2025 6:24 PM PROGRAM SPECIALIST There are no prior chest radiographs for comparison. No pulmonary consolidation, pleural effusion or pneumothorax. Normal cardiomediastinal silhouette. Dictated by: Saúl Sigala M.D. The radiology attending physician has personally reviewed this study, and had reviewed and/or edited this written report and agrees with it. Electronically signed by: Cesilia Winston MD Narrative 03/24/2025 6:24 PM PROGRAM SPECIALIST EXAMINATION: 2 view chest radiograph Procedure [...] Result * ECG 12-LEAD (03/24/2025 4:05 PM PROGRAM SPECIALIST) Narrative [facility] - 03/24/2025 4:05 PM PROGRAM SPECIALIST Elder Jones MD 03/24/2025 4:05 PM ECG 12 lead Date/Time: 03/24/2025 4:05 PM Performed by: Elder Jones MD Authorized by: Allan Arana MD Rate: ECG rate assessment comment: 119, sinus tachycardia, normal axis, normal intervals, nsstc us Allan Arana MD ECG ORDERABLES Final Result [facility] * (ABNORMAL) Blood smear review (03/17/2025 11:40 AM PROGRAM SPECIALIST) RBC morphology Consistent with RBC Indicies Comment:Testing performed by : [address] [address] Platelet estimate Decreased(A) CERNER Comment:Testing performed by : [address] [address] Blood 03/17/2025 11:4 0 AM PROGRAM SPECIALIST 03/17/2025 11:45 AM PROGRAM SPECIALIST us Ramy Aguilera MD LAB BLOOD ORDERABLES Final R esult Performing Organization Address [facility] de Phone Number [place] [id number] [facility] [place] [address] * eGFR (03/17/2025 11:40 AM PROGRAM SPECIALIST) Pathologist [facility] eGFR >90 >=60 mL/min/1. 73 [...] was last reviewed 2021. Testing performed by: [address] [address] Blood 03/17/2025 11:4 0 AM PROGRAM SPECIALIST 03/17/2025 11:45 AM PROGRAM SPECIALIST Ramy Aguilera MD LAB BLOOD ORDERABLES Final R esult Performing Organization Address [facility] Co de Phone Number [place] [id number] [facility] [place] [address] * (ABNORMAL) Differential, auto (03/17/2025 11:40 AM PROGRAM SPECIALIST) Pathologist [facility] Neutrophil abs 1.24(L) 1.50 - 6.50 K/cumm Comment:Testing performed by : [address] [address] Imm gran abs 0.01 0.00 - 0.10 K/cumm [facility]N Comment:Testing performed by : [address] [address] Lymphocyte abs 7.07(H) 0.80 - 3.30 K/cumm [facility] Comment:Testing performed by : [address] [address] Monocyte abs 0.26 0.20 - 0.80 K/cumm [facility] Comment:Testing performed by : [address], [place]., [address] Eosinophil abs 0.03 0.00 - 0.50 K/cumm [facility] Comment:Testing performed by : [address], [place]., [address] Basophil abs 0.04 0.00 - 0.10 K/cumm [facility] Comment:Testing performed by : [address] [address] Neutrophil pct 14.4 % [facility] Comment: Interpretive Data Percent cell count reference ranges are not reported, since discordance with absolute values may lead to misinterpretation of CBC data. Current Interpretive Data was last revised on 2017. Testing performed by: [address] [address] Imm gran pct 0.1 % [facility] Comment: Interpretive Data Percent cell count reference ranges are not reported, since discordance with absolute values may lead to misinterpretation of CBC data. Current Interpretive Data was last revised on 2017. Testing performed by: [address] [address] Lymphocyte pct 81.7 % [facility] Comment: Interpretive Data Percent cell count reference ranges are not reported, since discordance with absolute values may lead to misinterpretation of CBC data. Current Interpretive Data was last revised on 2017. Testing performed by: [address] [address] Monocyte pct 3.0 % [facility] Comment: Interpretive Data Percent cell count reference ranges are not reported, since discordance with absolute values may lead to misinterpretation of CBC data. Current Interpretive Data was last revised on 2017. Testing performed by: [address] [address] Eosinophil pct 0.3 % [facility] Comment: Interpretive Data Percent cell count reference ranges are not reported, since discordance with absolute values may lead to misinterpretation of CBC data. Current Interpretive Data was last revised on 2017. Testing performed by: [address] [address] Basophil pct 0.5 % [facility] Comment: Interpretive Data Percent cell count reference ranges are not reported, since discordance with absolute values may lead to misinterpretation of CBC data. Current Interpretive Data was last revised on 2017. Testing performed by: [address] [address] Blood 03/17/2025 11:4 0 AM PROGRAM SPECIALIST 03/17/2025 11:45 AM PROGRAM SPECIALIST us Ramy Aguilera MD LAB BLOOD ORDERABLES Final R esult [facility] Department [place] [address] * (ABNORMAL) CBC with auto differential (03/17/2025 11:40 AM PROGRAM SPECIALIST) WBC 8.65 3.80 - 9.90 K/cumm Comment:Testing performed by : [address] [address] Hgb 8.6(L) 11.9 - 15.5 g/dL [facility] Comment:Testing performed by : [address] [address] Hct 27.5(L) 35.6 - 45.5 % [facility] Comment:Testing performed by : [address] [address] Plt 114(L) 150 - 400 K/cumm [facility] Comment:Testing performed by : [address] [address] MPV 9.5 9.1 - 12.3 fL [facility] Comment:Testing performed by : [address] [address] RBC 2.89(L) 3.90 - 5.20 M/cumm [facility] Comment:Testing performed by : [address] [address] MCV 95.2 81.3 - 96.4 fL [facility]N [facility] Comment:Testing performed by : [address] [address] MCH 29.8 27.1 - 33.3 pg [facility]N [facility] Comment:Testing performed by : [address] [address] MCHC 31.3(L) 32.3 - 35.7 g/dL [facility] Comment:Testing performed by : [address] [address] RDW CV 17.7(H) 11.1 - 14.9 % [facility]N Comment:Testing performed by : [address] [address] RDW SD 61.4(H) 35.7 - 48.1 fL [facility] Comment:Testing performed by : [address] [address] NRBC abs 0.00 0.00 - 0.01 K/cumm [facility] Comment:Testing performed by : [address] [address] ANC Prelim 1.24(L) 1.50 - 6.50 K/cumm [facility] Comment: Interpretive Data The rapid ANC is a preliminary automated count and may vary from the final ANC (Neut Abs) reported in the WBC differential that follows. Current interpretive data was last revised 2024. Testing performed by: [address] [address] Blood 03/17/2025 11:4 0 AM PROGRAM SPECIALIST 03/17/2025 11:45 AM PROGRAM SPECIALIST us Ramy Aguilera MD LAB BLOOD ORDERABLES Edited Result - Final [facility] [address] [facility] Department [place] [address] * hCG, blood, quantitative (03/17/2025 11:40 AM PROGRAM SPECIALIST) hCG, quant <5.0 0.0 - 5.0 IUnits/L Comment: Interpretive Data Male: < 5 IU/L Non- premenopausal Female: <5 IU/L The [employer] hCG Beta Quant assay procedure was used. Results from different manufacturers or methods may not be comparable. Serial testing should be performed using the same method. Interpretive Data was last revised on 2023 Testing performed by: [address] [address] Blood 03/17/2025 11:4 0 AM PROGRAM SPECIALIST 03/17/2025 12:11 PM PROGRAM SPECIALIST Ramy Aguilera MD LAB BLOOD ORDERABLES Edited Result - Final Performing Organization Address [facility] de Phone Number [address] [employer] [place] [address] * Uric acid (03/17/2025 11:40 AM PROGRAM SPECIALIST) [facility] Uric acid 5.6 2.5 - 7.0 mg/dL Comment:Testing performed by : [address] [address] Blood 03/17/2025 11:4 0 AM PROGRAM SPECIALIST 03/17/2025 11:45 AM PROGRAM SPECIALIST Ramy Aguilera MD LAB BLOOD ORDERABLES Final R esult Performing Organization Address [facility] Co de Phone Number [address] [employer] [place] [address] * Lactate dehydrogenase (LD) (03/17/2025 11:40 AM PROGRAM SPECIALIST) [facility] Lactate dehydrogenase (LDH) 243 100 - 250 Units/L Comment:Testing performed by : [address] [address] Blood 03/17/2025 11:4 0 AM PROGRAM SPECIALIST 03/17/2025 11:45 AM PROGRAM SPECIALIST us Ramy Aguilera MD LAB BLOOD ORDERABLES Final R esult [facility] [address] [facility] Department [place] [address] * (ABNORMAL) Comprehensive metabolic panel (03/17/2025 11:40 AM PROGRAM SPECIALIST) Sodium 140 135 - 145 mmol/L Comment:Testing performed by : [address] [address] Potassium, pl 3.9 3.3 - 4.9 mmol/L JOSELYN Comment:Testing performed by : [address] [address] Chloride 102 97 - 110 mmol/L JOSE[facility]N Comment:Testing performed by : [address] [address] CO2 26 22 - 32 mmol/L JO[facility]N Comment:Testing performed by : [address] [address] Anion gap 12 2 - 15 mmol/L [facility] Comment:Testing performed by : [address] [address] BUN 7 6 - 25 mg/dL JO[facility]N Comment:Testing performed by : [address] [address] Creatinine 0.70 0.60 - 1.10 mg/dL [facility]N Comment:Testing performed by : [address] [address] Glucose 101 70 - 199 mg/dL JOSELYN [...] was last revised 2022. Testing performed by: [address] [address] Calcium 8.8 8.5 - 10.3 mg/dL JOSE[facility]N Comment:Testing performed by : [address] [address] Bilirubin, total 0.4 0.1 - 1.2 mg/dL JOSE[facility]N Comment:Testing performed by : [address] [address] Protein, pl 6.3(L) 6.5 - 8.5 g/dL JOSE[facility]N Comment:Testing performed by : [address] [address] Albumin 4.3 3.5 - 5.0 g/dL JO[facility]N Comment:Testing performed by : [address] [address] Alk phos 209(H) 40 - 130 Units/L JOSE[facility]N Comment:Testing performed by : [address], [address] ALT 25 7 - 45 Units/L JOSE[facility]N Comment:Testing performed by : [address] [address] AST 33 10 - 45 Units/L [facility] Comment:Testing performed by : [address] [address] Blood 03/17/2025 11:4 0 AM PROGRAM SPECIALIST 03/17/2025 11:45 AM PROGRAM SPECIALIST us Ramy Aguilera MD LAB BLOOD ORDERABLES Final R esult [facility] [address] [facility] Department [place] [address] * TRANSTHORACIC ECHO (TTE) COMPLETE W DOPPLER/CF WO CONTRAST (03/08/2025 11:14 AM PROGRAM SPECIALIST) Estimated EF 59 % CONS SCIMAGE Anatomical Region Laterality Modality Ultrasound 03/08/2025 10:2 6 AM PROGRAM SPECIALIST Narrative 03/08/2025 5:07 PM PROGRAM SPECIALIST Transthoracic Echocardiographic Report Patient Name: SOHA MARRERO R : 1990 (35y ) Sex: F Study Date: 03/08/2025 10:26:39 AM Ht(Inch): 62 Wt(Lb): 111 BSA: 1.48 Computer Technical Specialist: Olivia Song RDCS Order Provider: RAMY AGUILERA Heart Rate: 95 BMI: 20.3 BP: 115 / 53 Ref Provider: RAMY AGUILERA PROCEDURES: Echocardiographic Report: ([id number]) Transthoracic complete echo, 2D, spectral and tissue Doppler, color flow Doppler, M-mode. INDICATIONS: C82.90 Follicular lymphoma, unspecified, unspecified site and Z79.899 Other manager long term care (current) drug therapy. FINDINGS: Left Ventricle: Normal [...] By: Sultan Nathen MD 03/08/2025 5:06:19 PM PROGRAM SPECIALIST Procedure Note Sultan Katherine Sena MD - 03/08/2025 Transthoracic Echocardiographic Report Patient Name: SOHA MARRERO R : 1990 (35y ) Sex: F Study Date: 03/08/2025 10:26:39 AM Ht(Inch): 62 Wt(Lb): 111 BSA: 1.48 Computer Technical Specialist: Olivia Song RDCS Order Provider: RAMY AGUILERA Heart Rate: 95 BMI: 20.3 BP: 115 / 53 Ref Provider: RAMY AGUILERA PROCEDURES: Echocardiographic Report: ([id number]) Transthoracic complete echo, 2D,spectral and tissue Doppler, color flow Doppler, M-mode. INDICATIONS: C82.90 Follicular lymphoma, unspecified, unspecified site and Z79.899Other alf (current) drug therapy. FINDINGS: Left Ventricle: Normal [...] [ 1.71 - 5.00 ] MV Decel Geff399.00 msec AoR Diam 2D 2.40 cm [ [...] By: Sultan Nathen MD 03/08/2025 5:06:19 PM PROGRAM SPECIALIST us Ramy Aguilera MD CV ECHO PROCEDURES Final Res ult * (ABNORMAL) Blood smear review (02/24/2025 10:12 AM PROGRAM SPECIALIST) RBC morphology Consistent with RBC Indicies Comment:Testing performed by : [address] [address] Anisocytosis Slight(A) JOSELYN VAZQUEZ Comment:Testing performed by : [address] [address] Platelet estimate Adequate JOSELYN VAZQUEZ Comment:Testing performed by : [address] [address] Blood 02/24/2025 10:1 2 AM PROGRAM SPECIALIST 02/24/2025 10:15 AM PROGRAM SPECIALIST us Ramy Aguilera MD LAB BLOOD ORDERABLES Final R esult JOSELYN [address] [facility] [place] [address] * eGFR (02/24/2025 10:12 AM PROGRAM SPECIALIST) eGFR >90 >=60 mL/min/1. 73 m2 Comment: [...] was last reviewed 2021. Testing performed by: [address] [address] Blood 02/24/2025 10:1 2 AM PROGRAM SPECIALIST 02/24/2025 10:15 AM PROGRAM SPECIALIST us Ramy Aguilera MD LAB BLOOD ORDERABLES Final R esult [facility] [address] [facility] Department [place] [address] * (ABNORMAL) Differential, auto (02/24/2025 10:12 AM PROGRAM SPECIALIST) Neutrophil abs 1.94 1.50 - 6.50 K/cumm Comment:Testing performed by : [address] [address] Imm gran abs 0.02 0.00 - 0.10 K/cumm JOSELYN Comment:Testing performed by : [address] [address] Lymphocyte abs 10.97(H) 0.80 - 3.30 K/cumm JOSELYN Comment:Testing performed by : [address] [address] Monocyte abs 0.29 0.20 - 0.80 K/cumm JOSELYN Comment:Testing performed by : [address] [address] Eosinophil abs 0.09 0.00 - 0.50 K/cumm JOSELYN Comment:Testing performed by : [address] [address] Basophil abs 0.05 0.00 - 0.10 K/cumm JOSELYN Comment:Testing performed by : [address] [address] Neutrophil pct 14.5 % JOSELYN Comment: Interpretive Data Percent cell count reference ranges are not reported, since discordance with absolute values may lead to misinterpretation of CBC data. Current Interpretive Data was last revised on 2017. Testing performed by: [address] [address] Imm gran pct 0.1 % JOSELYN Comment: Interpretive Data Percent cell count reference ranges are not reported, since discordance with absolute values may lead to misinterpretation of CBC data. Current Interpretive Data was last revised on 2017. Testing performed by: [address] [address] Lymphocyte pct 82.1 % [facility] Comment: Interpretive Data Percent cell count reference ranges are not reported, since discordance with absolute values may lead to misinterpretation of CBC data. Current Interpretive Data was last revised on 2017. Testing performed by: [address] [address] Monocyte pct 2.2 % [facility] Comment: Interpretive Data Percent cell count reference ranges are not reported, since discordance with absolute values may lead to misinterpretation of CBC data. Current Interpretive Data was last revised on 2017. Testing performed by: [address] [address] Eosinophil pct 0.7 % [facility] Comment: Interpretive Data Percent cell count reference ranges are not reported, since discordance with absolute values may lead to misinterpretation of CBC data. Current Interpretive Data was last revised on 2017. Testing performed by: [address] [address] Basophil pct 0.4 % [facility] Comment: Interpretive Data Percent cell count reference ranges are not reported, since discordance with absolute values may lead to misinterpretation of CBC data. Current Interpretive Data was last revised on 2017. Testing performed by: [address] [address] Blood 02/24/2025 10:1 2 AM PROGRAM SPECIALIST 02/24/2025 10:15 AM PROGRAM SPECIALIST us Ramy Aguilera MD LAB BLOOD ORDERABLES Final R esult JOESLYN VAZQUEZ [address] [facility] Department [place] [address] * (ABNORMAL) CBC with auto differential (02/24/2025 10:12 AM PROGRAM SPECIALIST) WBC 13.36(H) 3.80 - 9.90 K/cumm Comment:Testing performed by : [address], [address] Hgb 8.7(L) 11.9 - 15.5 g/dL JOSELYN Comment:Testing performed by : [address] [address] Hct 27.7(L) 35.6 - 45.5 % CERSUSAN Comment:Testing performed by : [address] [address] Plt 141(L) 150 - 400 K/cumm CERSUSAN Comment:Testing performed by : [address], [address] MPV 9.6 9.1 - 12.3 fL CERSUSAN Comment:Testing performed by : [address], [address] RBC 2.98(L) 3.90 - 5.20 M/cumm JOSELYN Comment:Testing performed by : [address], [address] MCV 93.0 81.3 - 96.4 fL CERSUSAN Comment:Testing performed by : [address], [address] MCH 29.2 27.1 - 33.3 pg CERSUSAN Comment:Testing performed by : [address] [address] MCHC 31.4(L) 32.3 - 35.7 g/dL JOSELYN Comment:Testing performed by : [address], [address] RDW CV 18.6(H) 11.1 - 14.9 % CERSUSAN Comment:Testing performed by : [address], [address] RDW SD 60.3(H) 35.7 - 48.1 fL CERSUSAN Comment:Testing performed by : [address] [address] NRBC abs 0.02(H) 0.00 - 0.01 K/cumm JOSELYN Comment:Testing performed by : [address] [address] ANC Prelim 1.94 1.50 - 6.50 K/cumm JOSELYN Comment: Interpretive Data The rapid ANC is a preliminary automated count and may vary from the final ANC (Neut Abs) reported in the WBC differential that follows. Current interpretive data was last revised 2024. Testing performed by: [address] [address] Blood 02/24/2025 10:1 2 AM PROGRAM SPECIALIST 02/24/2025 10:15 AM PROGRAM SPECIALIST Ramy Aguilera MD LAB BLOOD ORDERABLES Final R esult Performing Organization Address [facility] Co de Phone Number JOSELYN [address] [facility] [place] [place] [address] * hCG, blood, quantitative (02/24/2025 10:12 AM PROGRAM SPECIALIST) hCG, quant <5.0 0.0 - 5.0 IUnits/L Comment: Interpretive Data Male: < 5 IU/L Non- premenopausal Female: <5 IU/L The Cosmo hCG Beta Quant assay procedure was used. Results from different manufacturers or methods may not be comparable. Serial testing should be performed using the same method. Interpretive Data was last revised on 2023 Testing performed by: [address] [address] Blood 02/24/2025 10:1 2 AM PROGRAM SPECIALIST 02/24/2025 10:46 AM PROGRAM SPECIALIST Ramy Aguilera MD LAB BLOOD ORDERABLES Final R esult Performing Organization Address City/[facility] Co de Phone Number [facility] [address] [facility] [employer] [place] [address] * (ABNORMAL) Comprehensive metabolic panel (02/24/2025 10:12 AM PROGRAM SPECIALIST) Sodium 141 135 - 145 mmol/L Comment:Testing performed by : [address] [address] Potassium, pl 3.8 3.3 - 4.9 mmol/L [facility] Comment:Testing performed by : [address] [address] Chloride 102 97 - 110 mmol/L [facility] Comment:Testing performed by : [address] [address] CO2 26 22 - 32 mmol/L [facility] Comment:Testing performed by : [address] [address] Anion gap 13 2 - 15 mmol/L [facility] Comment:Testing performed by : [address] [address] BUN 13 6 - 25 mg/dL [facility] Comment:Testing performed by : [address] [address] Creatinine 0.70 0.60 - 1.10 mg/dL [facility] Comment:Testing performed by : [address] [address] Glucose 83 70 - 199 mg/dL [facility] Comment: Interpretive Data Fasting glucose >/= [...] was last revised 2022. Testing performed by: [address] [address] Calcium 9.5 8.5 - 10.3 mg/dL [facility] Comment:Testing performed by : [address] [address] Bilirubin, total 0.3 0.1 - 1.2 mg/dL [facility] Comment:Testing performed by : [address] [address] Protein, pl 6.1(L) 6.5 - 8.5 g/dL JOSELYN VAZQUEZ Comment:Testing performed by : [address] [address] Albumin 4.0 3.5 - 5.0 g/dL JOSELYN VAZQUEZ Comment:Testing performed by : [address] [address] Alk phos 150(H) 40 - 130 Units/L JOSELYN Comment:Testing performed by : [address] [address] ALT 8 7 - 45 Units/L JOSELYN Comment:Testing performed by : [address] [address] AST 18 10 - 45 Units/L JOSELYN Comment:Testing performed by : [address] [address] Blood 02/24/2025 10:1 2 AM PROGRAM SPECIALIST 02/24/2025 10:15 AM PROGRAM SPECIALIST us Ramy Aguilera MD LAB BLOOD ORDERABLES Final R esult Performing Organization Address City/[facility]/ZIP Co de Phone Number [address] [place] [address] * POCT glucose (2025 10:24 AM PROGRAM SPECIALIST) Pathologist [facility] Glucose, POC 91 70 - 199 mg/dL Comment:Testing performed by : [address] [address] Blood 2025 10:2 4 AM PROGRAM SPECIALIST 2025 10:24 AM PROGRAM SPECIALIST Ramy Aguilera MD LAB POCT ORDERABLES - DEVICE Final Result Performing Organization Address City/[facility]/ZIP Co de Phone Number [address] [place] [address] * (ABNORMAL) Blood smear review (02/10/2025 10:45 AM PROGRAM SPECIALIST) [facility] RBC morphology Consistent with RBC Indicies Comment:Testing performed by : [address] [address] Anisocytosis Slight(A) JOSELYN VAZQUEZ Comment:Testing performed by : [address] [address] Platelet estimate Adequate JOSELYN VAZQUEZ Comment:Testing performed by : [address] [address] Blood 02/10/2025 10:4 5 AM PROGRAM SPECIALIST 02/10/2025 10:48 AM PROGRAM SPECIALIST us Ramy Aguilera MD LAB BLOOD ORDERABLES Final R esult JOSELYN VAZQUEZ [address] [facility] Department [place] [address] * eGFR (02/10/2025 10:45 AM PROGRAM SPECIALIST) eGFR >90 >=60 mL/min/1. 73 m2 Comment: [...] was last reviewed 2021. Testing performed by: [address] [address] Blood 02/10/2025 10:4 5 AM PROGRAM SPECIALIST 02/10/2025 10:48 AM PROGRAM SPECIALIST us Ramy Aguilera MD LAB BLOOD ORDERABLES Final R esult JOSELYN [address] [facility] Department [place] [address] * (ABNORMAL) Differential, auto (02/10/2025 10:45 AM PROGRAM SPECIALIST) Neutrophil abs 2.05 1.50 - 6.50 K/cumm Comment:Testing performed by : [address] [address] Imm gran abs 0.01 0.00 - 0.10 K/cumm JOSELYN Comment:Testing performed by : [address] [address] Lymphocyte abs 13.08(H) 0.80 - 3.30 K/cumm JOSELYN Comment:Testing performed by : [address] [address] Monocyte abs 0.29 0.20 - 0.80 K/cumm JOSELYN Comment:Testing performed by : [address] [address] Eosinophil abs 0.02 0.00 - 0.50 K/cumm JOSELYN Comment:Testing performed by : [address] [address] Basophil abs 0.07 0.00 - 0.10 K/cumm JOSELYN Comment:Testing performed by : [address] [address] Neutrophil pct 13.1 % JOSELYN Comment: Interpretive Data Percent cell count reference ranges are not reported, since discordance with absolute values may lead to misinterpretation of CBC data. Current Interpretive Data was last revised on 2017. Testing performed by: [address] [address] Imm gran pct 0.1 % JOSELYN Comment: Interpretive Data Percent cell count reference ranges are not reported, since discordance with absolute values may lead to misinterpretation of CBC data. Current Interpretive Data was last revised on 2017. Testing performed by: [address] [address] Lymphocyte pct 84.3 % JOSELYN Comment: Interpretive Data Percent cell count reference ranges are not reported, since discordance with absolute values may lead to misinterpretation of CBC data. Current Interpretive Data was last revised on 2017. Testing performed by: [address] [address] Monocyte pct 1.9 % JOSELYN VAZQUEZ Comment: Interpretive Data Percent cell count reference ranges are not reported, since discordance with absolute values may lead to misinterpretation of CBC data. Current Interpretive Data was last revised on 2017. Testing performed by: [address] [address] Eosinophil pct 0.1 % JOSELYN Comment: Interpretive Data Percent cell count reference ranges are not reported, since discordance with absolute values may lead to misinterpretation of CBC data. Current Interpretive Data was last revised on 2017. Testing performed by: [address] [address] Basophil pct 0.5 % JOSELYN Comment: Interpretive Data Percent cell count reference ranges are not reported, since discordance with absolute values may lead to misinterpretation of CBC data. Current Interpretive Data was last revised on 2017. Testing performed by: [address] [address] Blood 02/10/2025 10:4 5 AM PROGRAM SPECIALIST 02/10/2025 10:48 AM PROGRAM SPECIALIST us Ramy Aguilera MD LAB BLOOD ORDERABLES Final R esult JOSELYN [address] [facility] Department [place] [address] * (ABNORMAL) CBC with auto differential (02/10/2025 10:45 AM PROGRAM SPECIALIST) WBC 15.52(H) 3.80 - 9.90 K/cumm Comment:Testing performed by : [address] [address] Hgb 7.9(L) 11.9 - 15.5 g/dL JOSELYN VAZQUEZ Comment:Testing performed by : [address] [address] Hct 25.5(L) 35.6 - 45.5 % JOSELYN Comment:Testing performed by : [address] [address] Plt 128(L) 150 - 400 K/cumm JOSELYN Comment:Testing performed by : [address] [address] MPV 10.3 9.1 - 12.3 fL JOSELYN Comment:Testing performed by : [address] [address] RBC 2.75(L) 3.90 - 5.20 M/cumm JOSELYN Comment:Testing performed by : [address], [address] MCV 92.7 81.3 - 96.4 fL JOSELYN Comment:Testing performed by : [address] [address] MCH 28.7 27.1 - 33.3 pg JOSELYN Comment:Testing performed by : [address] [address] MCHC 31.0(L) 32.3 - 35.7 g/dL JOSELYN Comment:Testing performed by : [address] [address] RDW CV 18.0(H) 11.1 - 14.9 % JOSELYN Comment:Testing performed by : [address], [address] RDW SD 60.4(H) 35.7 - 48.1 fL [facility] Comment:Testing performed by : [address] [address] NRBC abs 0.00 0.00 - 0.01 K/cumm JOSELYN Comment:Testing performed by : [address] [address] ANC Prelim 2.05 1.50 - 6.50 K/cumm JOSELYN Comment: Interpretive Data The rapid ANC is a preliminary automated count and may vary from the final ANC (Neut Abs) reported in the WBC differential that follows. Current interpretive data was last revised 2024. Testing performed by: [address] [address] Blood 02/10/2025 10:4 5 AM PROGRAM SPECIALIST 02/10/2025 10:48 AM PROGRAM SPECIALIST Ramy Aguilera MD LAB BLOOD ORDERABLES Final R esult Performing Organization Address [facility] de Phone Number [address] [place] [address] * hCG, blood, quantitative (02/10/2025 10:45 AM PROGRAM SPECIALIST) hCG, quant <5.0 0.0 - 5.0 IUnits/L Comment: Interpretive Data Male: < 5 IU/L Non- premenopausal Female: <5 IU/L The Cosmo hCG Beta Quant assay procedure was used. Results from different manufacturers or methods may not be comparable. Serial testing should be performed using the same method. Interpretive Data was last revised on 2023 Testing performed by: [address] [address] Blood 02/10/2025 10:4 5 AM PROGRAM SPECIALIST 02/10/2025 11:06 AM PROGRAM SPECIALIST us Ramy Aguilera MD LAB BLOOD ORDERABLES Final R esult Performing Organization Address City/[facility] de Phone Number [address] [employer] [place] [address] * (ABNORMAL) Comprehensive metabolic panel (02/10/2025 10:45 AM PROGRAM SPECIALIST) Sodium 143 135 - 145 mmol/L Comment:Testing performed by : [address] [address] Potassium, pl 3.8 3.3 - 4.9 mmol/L JOSELYN VAZQUEZ Comment:Testing performed by : [address] [address] Chloride 102 97 - 110 mmol/L JOSELYN VAZQUEZ Comment:Testing performed by : [address] [address] CO2 29 22 - 32 mmol/L [facility] Comment:Testing performed by : [address] [address] Anion gap 12 2 - 15 mmol/L JOSELYN Comment:Testing performed by : [address] [address] BUN 12 6 - 25 mg/dL JOSLEYN Comment:Testing performed by : [address] [address] Creatinine 0.80 0.60 - 1.10 mg/dL JOSELYN Comment:Testing performed by : [address] [address] Glucose 94 70 - 199 mg/dL [facility] Comment: Interpretive Data Fasting glucose [...] was last revised 2022. Testing performed by: [address] [address] Calcium 9.0 8.5 - 10.3 mg/dL JOSELYN Comment:Testing performed by : [address] [address] Bilirubin, total 0.3 0.1 - 1.2 mg/dL [facility] Comment:Testing performed by : [address] [address] Protein, pl 6.1(L) 6.5 - 8.5 g/dL JOSELYN Comment:Testing performed by : [address] [address] Albumin 4.0 3.5 - 5.0 g/dL JOSELYN Comment:Testing performed by : [address] [address] Alk phos 149(H) 40 - 130 Units/L JOSELYN VAZQUEZ Comment:Testing performed by : [address] [address] ALT 11 7 - 45 Units/L JOSELYN VAZQUEZ Comment:Testing performed by : [address] [address] AST 23 10 - 45 Units/L JOSELYN VAZQUEZ Comment:Testing performed by : [address] [address] Blood 02/10/2025 10:4 5 AM PROGRAM SPECIALIST 02/10/2025 10:48 AM PROGRAM SPECIALIST us Ramy Aguilera MD LAB BLOOD ORDERABLES Final R esult Performing Organization Address [facility] de Phone Number JOSELYN [address] [place] [address] * (ABNORMAL) Blood smear review (02/03/2025 11:19 AM CDT) Pathologist [facility] RBC morphology Consistent with RBC Indicies Comment:Testing performed by : [address] [address] Anisocytosis Slight(A) JOSELYN VAZQUEZ Comment:Testing performed by : [address] [address] Platelet estimate Adequate JOSELYN VAZQUEZ Comment:Testing performed by : [address] [address] Blood 02/03/2025 11:1 9 AM CDT 02/03/2025 11:22 AM CDT us Ramy Aguilera MD LAB BLOOD ORDERABLES Final R esult Performing Organization Address City/[facility] Co de Phone Number DARRIN[address] [place] [address] * eGFR (02/03/2025 11:19 AM CDT) eGFR [...] was last reviewed 2021. Testing performed by: [address] [address] Blood 02/03/2025 11:1 9 AM CDT 02/03/2025 11:22 AM CDT us Ramy Aguilera MD LAB BLOOD ORDERABLES Final R esult [facility] [address] [facility] Department [place] [address] * (ABNORMAL) Differential, auto (02/03/2025 11:19 AM CDT) Neutrophil abs 2.22 1.50 - 6.50 K/cumm Comment:Testing performed by : [address] [address] Imm gran abs 0.04 0.00 - 0.10 K/cumm JOSELYN Comment:Testing performed by : [address] [address] Lymphocyte abs 22.28(H) 0.80 - 3.30 K/cumm JOSELYN Comment:Testing performed by : [address] [address] Monocyte abs 0.58 0.20 - 0.80 K/cumm JOSELYN Comment:Testing performed by : [address] [address] Eosinophil abs 0.01 0.00 - 0.50 K/cumm JOSELYN Comment:Testing performed by : [address] [address] Basophil abs 0.11(H) 0.00 - 0.10 K/cumm JOSELYN Comment:Testing performed by : [address] [address] Neutrophil pct 8.8 % JOSELYN Comment: Interpretive Data Percent cell count reference ranges are not reported, since discordance with absolute values may lead to misinterpretation of CBC data. Current Interpretive Data was last revised on 2017. Testing performed by: [address] [address] Imm gran pct 0.2 % JOSELYN Comment: Interpretive Data Percent cell count reference ranges are not reported, since discordance with absolute values may lead to misinterpretation of CBC data. Current Interpretive Data was last revised on 2017. Testing performed by: [address] [address] Lymphocyte pct 88.3 % [facility] Comment: Interpretive Data Percent cell count reference ranges are not reported, since discordance with absolute values may lead to misinterpretation of CBC data. Current Interpretive Data was last revised on 2017. Testing performed by: [address] [address] Monocyte pct 2.3 % [facility] Comment: Interpretive Data Percent cell count reference ranges are not reported, since discordance with absolute values may lead to misinterpretation of CBC data. Current Interpretive Data was last revised on 2017. Testing performed by: [address] [address] Eosinophil pct 0.0 % JOSELNY Comment: Interpretive Data Percent cell count reference ranges are not reported, since discordance with absolute values may lead to misinterpretation of CBC data. Current Interpretive Data was last revised on 2017. Testing performed by: [address] [address] Basophil pct 0.4 % JOSELYN Comment: Interpretive Data Percent cell count reference ranges are not reported, since discordance with absolute values may lead to misinterpretation of CBC data. Current Interpretive Data was last revised on 2017. Testing performed by: [address] [address] Blood 02/03/2025 11:1 9 AM CDT 02/03/2025 11:22 AM CDT us Ramy Aguilera MD LAB BLOOD ORDERABLES Final R esult [facility] [address] [facility] [place] [address] * (ABNORMAL) CBC with auto differential (02/03/2025 11:19 AM CDT) WBC 25.24(H) 3.80 - 9.90 K/cumm Comment:Testing performed by : [address] [address] Hgb 8.7(L) 11.9 - 15.5 g/dL JOSELYN Comment:Testing performed by : [address] [address] Hct 28.1(L) 35.6 - 45.5 % JOSELYN Comment:Testing performed by : [address] [address] Plt 176 150 - 400 K/cumm JOSELYN Comment:Testing performed by : [address] [address] MPV 9.6 9.1 - 12.3 fL JOSELYN Comment:Testing performed by : [address] [address] RBC 3.07(L) 3.90 - 5.20 M/cumm JOSELYN Comment:Testing performed by : [address] [address] MCV 91.5 81.3 - 96.4 fL JOSELYN Comment:Testing performed by : [address] [address] MCH 28.3 27.1 - 33.3 pg CERNER Comment:Testing performed by : [facility], [address] [place] [address]., [address] MCHC 31.0(L) 32.3 - 35.7 g/dL JOSELYN VAZQUEZ Comment:Testing performed by : [address] [address] RDW CV 17.6(H) 11.1 - 14.9 % JOSELYN Comment:Testing performed by : [address] [address] RDW SD 57.8(H) 35.7 - 48.1 fL JOSELYN Comment:Testing performed by : [address] [address] NRBC abs 0.02(H) 0.00 - 0.01 K/cumm JOSELYN Comment:Testing performed by : [address] [address] ANC Prelim 2.22 1.50 - 6.50 K/cumm JOSELYN Comment: Interpretive Data The rapid ANC is a preliminary automated count and may vary from the final ANC (Neut Abs) reported in the WBC differential that follows. Current interpretive data was last revised 2024. Testing performed by: [address] [address] Blood 02/03/2025 11:1 9 AM CDT 02/03/2025 11:22 AM CDT Ramy Aguilera MD LAB BLOOD ORDERABLES Edited Result - Final JOSELYN [address] [facility] Department of Laboratories [place], [place] [id number] * hCG, blood, quantitative (02/03/2025 11:19 AM CDT) [facility] hCG, quant <5.0 0.0 - 5.0 IUnits/L Comment: Interpretive Data Male: < 5 IU/L Non- premenopausal Female: <5 IU/L The [employer]mo hCG Beta Quant assay procedure was used. Results from different manufacturers or methods may not be comparable. Serial testing should be performed using the same method. Interpretive Data was last revised on 2023 Testing performed by: [address] [address] Blood 02/03/2025 11:1 9 AM CDT 02/03/2025 11:45 AM CDT Ramy Aguilera MD LAB BLOOD ORDERABLES Final R esult Performing Organization Address [facility] Center/[facility] de Phone Number [address] [address] * (ABNORMAL) Lactate dehydrogenase (LD) (02/03/2025 11:19 AM CDT) [facility] Lactate dehydrogenase (LDH) 392(H) 100 - 250 Units/L Comment: HEMOLYZED: Hemolysis interferes with the above test. Testing performed by: [address] [address] Blood 02/03/2025 11:1 9 AM CDT 02/03/2025 11:22 AM CDT Ramy Aguilera MD LAB BLOOD ORDERABLES Final R ult Performing Organization Address [facility] de Phone Number [address] [address] * (ABNORMAL) Comprehensive metabolic panel (02/03/2025 11:19 AM CDT) [facility] Sodium 136 135 - 145 mmol/L Comment:Testing performed by : [address] [address] Potassium, pl 3.7 3.3 - 4.9 mmol/L JOSELYN VAZQUEZ Comment:Testing performed by : [address] [address] Chloride 99 97 - 110 mmol/L JOSELYN Comment:Testing performed by : [address] [address] CO2 23 22 - 32 mmol/L JOSELYN VAZQUEZ Comment:Testing performed by : [address] [address] Anion gap 14 2 - 15 mmol/L JOSELYN Comment:Testing performed by : [address] [address] BUN 8 6 - 25 mg/dL JOSELYN Comment:Testing performed by : [address], [place]., [address] Creatinine 0.70 0.60 - 1.10 mg/dL JOSELYN Comment:Testing performed by : [address] [address] Glucose 105 70 - 199 mg/dL JOSELYN [...] was last revised 2022. Testing performed by: [address] [address] Calcium 9.3 8.5 - 10.3 mg/dL JOSELYN Comment:Testing performed by : [address] [address] Bilirubin, total 0.5 0.1 - 1.2 mg/dL JOSELYN Comment:Testing performed by : [address] [address] Protein, pl 6.4(L) 6.5 - 8.5 g/dL JOSELYN Comment:Testing performed by : [address] [address] Albumin 4.0 3.5 - 5.0 g/dL JOSELYN Comment:Testing performed by : [address] [address] Alk phos 180(H) 40 - 130 Units/L JOSELYN Comment:Testing performed by : [address] [place]., [address] ALT 25 7 - 45 Units/L JOSELYN VAZQUEZ Comment:Testing performed by : [facility], [address] [place] [address]., [address] AST 33 10 - 45 Units/L JOSELYN VAZQUEZ Comment:Testing performed by : [address] [address] Blood 02/03/2025 11:1 9 AM CDT 02/03/2025 11:22 AM CDT us Ramy Aguilera MD LAB BLOOD ORDERABLES Final R esult Performing Organization Address City/[facility] Co de Phone Number [address] [employer] [place] [address] * (ABNORMAL) Blood smear review (01/13/2025 10:00 AM CDT) Pathologist [facility] RBC morphology Consistent with RBC Indicies Comment:Testing performed by : [address] [address] Anisocytosis Slight(A) JOSELYN VAZQUEZ Comment:Testing performed by : [address] [address] Platelet estimate Adequate JOSELYN Comment:Testing performed by : [facility], [address] [place] [address]., [address] Blood 01/13/2025 10:0 0 AM CDT 01/13/2025 10:02 AM CDT us Ramy Aguilera MD LAB BLOOD ORDERABLES Final R esult Performing Organization Address City/[facility]/ZIP Co de Phone Number [address] [place] [employer] [place] [address] * eGFR (01/13/2025 10:00 AM CDT) Pathologist [facility] eGFR >90 >=60 mL/min/1. 73 [...] was last reviewed 2021. Testing performed by: [address] [address] Blood 01/13/2025 10:0 0 AM CDT 01/13/2025 10:02 AM CDT Ramy Aguilera MD LAB BLOOD ORDERABLES Final R esult JOSELYN [facility] [facility] Department of Laboratories [place], [place] [id number] * (ABNORMAL) Differential, auto (01/13/2025 10:00 AM CDT) Neutrophil abs 1.44(L) 1.50 - 6.50 K/cumm Comment:Testing performed by : [address] [address] Imm gran abs 0.03 0.00 - 0.10 K/cumm JOSELYN Comment:Testing performed by : [address] [address] Lymphocyte abs 17.55(H) 0.80 - 3.30 K/cumm JOSELYN Comment:Testing performed by : [address] [address] Monocyte abs 0.33 0.20 - 0.80 K/cumm JOSELYN Comment:Testing performed by : [address] [address] Eosinophil abs 0.04 0.00 - 0.50 K/cumm JOSELYN Comment:Testing performed by : [address] [address] Basophil abs 0.10 0.00 - 0.10 K/cumm JOSELYN Comment:Testing performed by : [address] [address] Neutrophil pct 7.4 % [facility] Comment: Interpretive Data Percent cell count reference ranges are not reported, since discordance with absolute values may lead to misinterpretation of CBC data. Current Interpretive Data was last revised on 2017. Testing performed by: [address] [address] Imm gran pct 0.2 % [facility] Comment: Interpretive Data Percent cell count reference ranges are not reported, since discordance with absolute values may lead to misinterpretation of CBC data. Current Interpretive Data was last revised on 2017. Testing performed by: [address] [address] Lymphocyte pct 90.0 % [facility] Comment: Interpretive Data Percent cell count reference ranges are not reported, since discordance with absolute values may lead to misinterpretation of CBC data. Current Interpretive Data was last revised on 2017. Testing performed by: [address] [address] Monocyte pct 1.7 % [facility] Comment: Interpretive Data Percent cell count reference ranges are not reported, since discordance with absolute values may lead to misinterpretation of CBC data. Current Interpretive Data was last revised on 2017. Testing performed by: [address] [address] Eosinophil pct 0.2 % [facility] Comment: Interpretive Data Percent cell count reference ranges are not reported, since discordance with absolute values may lead to misinterpretation of CBC data. Current Interpretive Data was last revised on 2017. Testing performed by: [address] [address] Basophil pct 0.5 % [facility] Comment: Interpretive Data Percent cell count reference ranges are not reported, since discordance with absolute values may lead to misinterpretation of CBC data. Current Interpretive Data was last revised on 2017. Testing performed by: [address] [address] Blood 01/13/2025 10:0 0 AM CDT 01/13/2025 10:02 AM CDT us Raym Aguilera MD LAB BLOOD ORDERABLES Final R esult [facility] [address] [facility] Department [place] [address] * (ABNORMAL) CBC with auto differential (01/13/2025 10:00 AM CDT) WBC 19.49(H) 3.80 - 9.90 K/cumm Comment:Testing performed by : [address] [address] Hgb 8.1(L) 11.9 - 15.5 g/dL JOSELYN Comment:Testing performed by : [address] [address] Hct 25.4(L) 35.6 - 45.5 % JOSELYN Comment:Testing performed by : [address] [address] Plt 108(L) 150 - 400 K/cumm JOSELYN Comment:Testing performed by : [address] [address] MPV 8.8(L) 9.1 - 12.3 fL JOSELYN Comment:Testing performed by : [address] [address] RBC 2.77(L) 3.90 - 5.20 M/cumm JOSELYN Comment:Testing performed by : [address] [address] MCV 91.7 81.3 - 96.4 fL JOSELYN Comment:Testing performed by : [address] [address] MCH 29.2 27.1 - 33.3 pg JOSELYN Comment:Testing performed by : [address] [address] MCHC 31.9(L) 32.3 - 35.7 g/dL JOSELYN Comment:Testing performed by : [address] [address] RDW CV 17.9(H) 11.1 - 14.9 % JOSELYN Comment:Testing performed by : [address] [address] RDW SD 59.7(H) 35.7 - 48.1 fL JOSELYN Comment:Testing performed by : [address] [address] NRBC abs 0.02(H) 0.00 - 0.01 K/cumm JOSELYN Comment:Testing performed by : [address] [address] ANC Prelim 1.44(L) 1.50 - 6.50 K/cumm JOSELYN Comment: Interpretive Data The rapid ANC is a preliminary automated count and may vary from the final ANC (Neut Abs) reported in the WBC differential that follows. Current interpretive data was last revised 2024. Testing performed by: [address] [address] Blood 01/13/2025 10:0 0 AM CDT 01/13/2025 10:02 AM CDT Ramy Aguilera MD LAB BLOOD ORDERABLES Edited Result - Final [facility] [address] [facility] Department of Laboratories [place], [place] [id number] * hCG, blood, quantitative (01/13/2025 10:00 AM [...] last revised on 2023 Testing performed by: [address] [address] Blood 01/13/2025 10:0 0 AM CDT 01/13/2025 10:18 AM CDT us Ramy Aguilera MD LAB BLOOD ORDERABLES Final R esult [facility] [address] [facility] Department [place] [address] * (ABNORMAL) Comprehensive metabolic panel (01/13/2025 10:00 AM CDT) Sodium 138 135 - 145 mmol/L Comment:Testing performed by : [address] [address] Potassium, pl 3.2(L) 3.3 - 4.9 mmol/L JOSELYN Comment:Testing performed by : [address] [address] Chloride 98 97 - 110 mmol/L JOSELYN Comment:Testing performed by : [address] [address] CO2 26 22 - 32 mmol/L JOSELYN Comment:Testing performed by : [address] [address] Anion gap 14 2 - 15 mmol/L JOSELYN Comment:Testing performed by : [address] [address] BUN 6 6 - 25 mg/dL JOSELYN Comment:Testing performed by : [address] [address] Creatinine 0.70 0.60 - 1.10 mg/dL JOSELYN Comment:Testing performed by : [address] [address] Glucose 131 70 - 199 mg/dL JOSELYN [...] was last revised 2022. Testing performed by: [address] [address] Calcium 9.0 8.5 - 10.3 mg/dL JOSELYN Comment:Testing performed by : [address] [address] Bilirubin, total 0.5 0.1 - 1.2 mg/dL JOSELYN Comment:Testing performed by : [address] [address] Protein, pl 5.8(L) 6.5 - 8.5 g/dL JOSELYN Comment:Testing performed by : [address] [address] Albumin 3.8 3.5 - 5.0 g/dL JOSELYN Comment:Testing performed by : [address] [address] Alk phos 238(H) 40 - 130 Units/L JOSELYN Comment:Testing performed by : [address] [address] ALT 17 7 - 45 Units/L JOSELYN Comment:Testing performed by : [address] [address] AST 30 10 - 45 Units/L JOSELYN Comment:Testing performed by : [address] [address] Blood 01/13/2025 10:0 0 AM CDT 01/13/2025 10:02 AM CDT us Ramy Aguilera MD LAB BLOOD ORDERABLES Final R esult JOSELYN [address] [facility] Department of Laboratories [place], [place] [phone] from Last 3 Months Additional Health Concerns Infection Onset Date Last Indicated C. difficile 11/18/2024 11/18/2024 Insurance [facility] Advance Directives For more information, please contact: [phone] * Full Code (Latest Code Status on File) Date Activated Date Inactivated Comments 09/22/2024 9:00 PM 09/24/2024 10:30 PM * Full Code Date Activated Date Inactivated Comments 09/17/2024 2:33 PM 09/17/2024 11:31 PM Care Teams Assemblies And Installations Inspector Relationship Specialty Start Date End Date Satya Fernandez MD [address] [place] [address] PCP - General Internal Medicine 10/21/24 Ramy Aguilera MD [address] [place] [address] Medical Oncologist/Wireworker Internal Medicine 09/23/24
--- OUTSIDE RECORDS SUMMARY | 2025-03-28 10:34 | XMS_ITS | Encounter Summary ---
Author Organization [facility] Address [address] [facility] [place] [address] Care Team Providers Care Illuminator Name Role Phone Unavailable Primary Care Provider Unavailabl e Encounter Details Date Type Department Care Team (Late st Contact Info) Description 12/19/[address] [facility] - Pathology Lab [address] [place] [address] Ishan Escobedo MD [address] [address] Illness, unspecified Social History Tobacco [...] CDT) Case Report Surgical Pathology Report Case: [id number] Authorizing Provider: Ishan Escobedo MD Collected: 12/18/2022 [...] CD10 co-expression. Axillary lymph node, flow cytometry ([id number]): - Poteet light chain restricted CD10+ B-cell population detected (~99% of overall events) Also received from [facility] is a peripheral smear showing circulating follicular lymphoma cells with occasional nuclear clefts. The peripheral blood is involved by follicular lymphoma. 12/19/2022 3:33 PM CDT [facility] Clinical History Suspect lymphoma. 12/19/2022 3:33 PM [facility] Materials Received Received are 4 slide(s) and 1 block labeled [id number] along with a copy of the outside pathology report. The materials originate from [facility], [address] [place] [address]. All original materials are returned to the referring institution, along with a copy of our final report. 12/19/2022 3:33 PM T [facility] Pathologist Location at [facility] 12/19/2022 3:33 PM T [facility] Disclaimer The performance characteristics of all immunohistochemical and indirect immunofluorescence stains (if any) cited in this report were determined by the Histopathology Laboratory of [facility]. Some of these tests [...] [facility] [address] [facility] [phone] documented in this encounter Visit Diagnoses Diagnosis Illness, unspecified documented in this encounter
--- OUTSIDE RECORDS SUMMARY | 2025-03-28 10:34 | XMS_ITS | Encounter Summary ---
Author Organization [facility] Address [address] [place] [address] Care Team Providers Care Jail Guard Name Role Phone None, Provider Primary Care Provider Unavaila ble Encounter Details Date Type Department Care Team (Late st Contact Info) Description 03/24/2025 Results Follow-Up [facility] Care [address] [facility] [address] Tunde Bess, BUSINESS PARTNER [address] [place], [place] [id number] CULTURE, BACTERIA, BLOOD, CULTURE, BACTERIA, BLOOD, RESPIRATORY [...] Sex Assigned at Female 02/09/2025 4:27 PM PULMONARY FELLOW Legal Sex Female 7:16 PM CDT Gender Identity Not on file Sexual Orientation Not on file documented as of this encounter Plan of Treatment Not on file documented as of this encounter Visit Diagnoses Not on filedocumented in this encounter Care Teams Jail Guard Relationship Specialty Start Date End Date None, Provider, PCP - General UNKNOWN PHYSICIAN SPECIALTY 11/19/22 documented as of this encounter
--- OUTSIDE RECORDS SUMMARY | 2025-03-28 10:34 | XMS_ITS | Encounter Summary ---
Author Organization [facility] Address [address] [place] [address] Phone Care Team Providers Care Braiding 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 Name Role Phone Gabriel Salmeron MD Unavailable Brooks Sosa MD Unavailable Provider, None Primary Care Provider UnavailKervin Rubi MD Unavailable [phone] Reason for Visit * Reason Comments Medication Refill Encounter Details Date Type Department Care Team (Late st Contact Info) Description 02/21/2025 Refill [facility] Oncology Services [address] [place] [address] Gabriel Salmeron MD [address] [place] [address] Medication Refill Social History Tobacco Use Types Packs/Day Years Used Date Smoking Tobacco: Every Day Cigarettes 1 15 Started: 04/07/2010 Passive Smoke Exposure: Current Smokeless Tobacco: Never Alcohol Use Standard Drinks/Week Comments Yes 2 (1 standard drink = 0.6 oz pur e alcohol) occasional [facility] Utilities Answer Date Recorded In the past [...] week 05/07/2023 How often do you attend religious or mormonism serv ices? Never 05/07/2023 Do you belong to any clubs o r organizations such as religious groups, unions, fraternal or athletic groups, or [...] Total Score - Questions 1-9 9 06/06 [facility] - Occupational [...] Sex Assigned at Female 05/21/2023 11:44 AM HEALTH SERVICES MANAGER Legal Sex Female 5:17 PM CDT Gender Identity Female 05/21/2023 11:44 AM HEALTH SERVICES MANAGER Sexual Orientation Not on file documented as of this encounter Miscellaneous Notes * Telephone Encounter - Koffi Collins RN - 02/21/2025 1:53 PM CST Pt is no longer with our practice. TH SERVICES MANAGER documented in this encounter Plan of Treatment [...] Ready to change Department associated with goal: [facility] Steps to achieve [...] documented as of this encounter Care Teams Braiding 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 Relationship Specialty Start Date End Date Provider, None MD PCP - General 06/17/24 Gabriel Salmeron MD [address] [place] [address] Consulting Physician Medical Oncology 05/23/23 Brooks Sosa MD [address] [place] [phone] Consulting Physician Neurology 01/22/24 Kervin Jiang MD [address] [phone] Consulting Physician General Surgery 06/11/24 documented as of this encounter
--- OUTSIDE RECORDS SUMMARY | 2025-03-28 10:34 | XMS_ITS | Encounter Summary ---
Author Organization [facility] Address [address] [place] [address] Care Team Providers Care Credit Administrator Name Role Phone None, Provider Primary Care Provider Unavaila ble Encounter Details Date Type Department Care Team (Late st Contact Info) Description 01/27/2025 Results Follow-Up [facility] [address] [place], [place] [phone] Thalia Hall FNP [address] [place], [place] [id number] Pathology Social History Tobacco Use Types Packs/Day [...] Sex Assigned at Female 02/09/2025 4:27 PM METAL SASH SETTER Legal Sex Female 7:16 PM CDT Gender Identity Not on file Sexual Orientation Not on file documented as of this encounter Plan of Treatment Not on file documented as of this encounter Visit Diagnoses Not on filedocumented in this encounter Additional Health Concerns Infection Onset Date Last Indicated Resolved Time Respiratory Rule Out 03/21/2025 03/21/2025 025 9:21 PM METAL SASH SETTER documented as of this encounter Care Teams Credit Administrator Relationship Specialty Start Date End Date None, Provider, PCP - General UNKNOWN PHYSICIAN SPECIALTY 11/19/22 documented as of this encounter
--- NOTE | 2025-03-28 10:44 | PC.NURSE ---
pt went to the bathroom and came out bleeding. pt says she hit her IV on the sink and the blue cap came off. pt denies messing with it. this RN secured the IV it was intact and flushed
== END 2025-03-28 10:47 | disposition home or self-care (01) ==
PROVIDERS: Emergency Provider Emergency Medicine; PCP Internal Medicine
DX: J10.1 Influenza due to other identified influenza virus with other respiratory manifestations (principal); F17.210 Nicotine dependence, cigarettes, uncomplicated; Z20.822 Contact with and (suspected) exposure to COVID-19
CPT/HCPCS: 36415; 71046; 80053; 85025; 87637; 94640; 96361; 96374; 96375; 99284; A9270; J1885; J2405; J7120